=== PATIENT | female | born 1930 | race Caucasian/White ===

== ENCOUNTER 2016-10-14 13:14 | Emergency (ER) | payer OTHER ==
[2016-10-14 13:26] VITALS: BMI 56.5
--- NOTE | 2016-10-14 13:36 | PDOC ---
History of Present Illness - General History Source: Patient Exam Limitations: No Limitations - History of Present Illness Initial Comments: CHIEF COMPLAINT: 86 y/o afebrile, morbidly obese female with PMH HTN, HLD, IDDM , hypothyroidism BIB daughter for complaints of abdominal pain with nausea and vomiting for 4-5 days. HISTORY OF PRESENT ILLNESS: According to the daughter the patient has been c/o right ear pain for the past 1 week and she has been putting over the counter drops in it with no relief. She started having upper abdominal pain with vomiting 4-5 days ago. She cannot eat or drink anything without vomiting it up. The patient and her daughter deny fever, chills, cough, runny nose, CP, SOB , back pain, hematuria, dysuria, diarrhea, constipation. She states she is having normal BMs. Per daughter she is normally ambulatory at home but hasn't been moving much the last few days. Vital signs on arrival are notable for O2 sat of 95% on RA. REVIEW OF SYSTEMS: GENERAL/CONSTITUTIONAL: No fever/chills. No weakness. No weight change. HEAD, EYES, EARS, NOSE AND THROAT: No change in vision. +right ear pain. No ear discharge. No sore throat. CARDIOVASCULAR: No chest pain or shortness of breath. RESPIRATORY: No cough, wheezing, or hemoptysis. GASTROINTESTINAL: +nausea, vomiting and abdominal pain. No diarrhea or constipation. GENITOURINARY: No dysuria, frequency, or change in urination. MUSCULOSKELETAL: No joint or muscle swelling or pain. No neck or back pain. SKIN: No rash or easy bruising. NEUROLOGIC: No headache, vertigo, loss of consciousness, or loss of sensation. PHYSICAL EXAM: GENERAL: The patient is morbidly obese, lying flat in ED bed, in NAD or obvious discomfort. HEAD: Normal with no signs of trauma. No mastoid TTP b/l. ENT: Pupils equal, round and reactive to light, extraocular movements intact, sclera anicteric, conjunctiva clear. Right TM with some sclerotic changes but without erythema or bulging of TM. No right canal edema. LUNGS: Clear to auscultation bilaterally. Normal excursion. No respiratory distress or use of accessory muscles. CV: RRR, S1/S2, no MRG. Cap refill < 2 sec. ABDOMEN: Soft, obese, TTP of epigastric region with passive guarding. No rebound, rigidity. Very distant BS secondary to body habitus. EXTREMITIES: Normal range of motion, no edema. NEUROLOGICAL: Normal speech. CN II-XII grossly intact. SKIN: Warm, dry, decreased skin turgor, no rashes or lesions noted. <Maria Del Carmen Barakat - Last Filed: 10/14/16 18:30> <Natali Garcia - Last Filed: 10/14/16 21:57> - General Chief Complaint: Nausea/Vomiting Stated Complaint: ABD PAIN Time Seen by Provider: 10/14/16 13:27 Past History - Past Medical History Anemia: No Asthma: Yes Cancer: Yes (SKIN) Cardiac Disorders: Yes (MITRAL VALVE PROLAPSE) CVA: No COPD: Yes CHF: Yes Dementia: No Diabetes: Yes GI Disorders: Yes Disorders: No HTN: Yes Hypercholesterolemia: Yes Liver Disease: Yes (FATTY LIVER) Suicide Attempt (Hx): No Seizures: No Thyroid Disease: Yes - Surgical History Abdominal Surgery: Yes Appendectomy: No Cardiac Surgery: No Cholecystectomy: Yes Lung Surgery: No Neurologic Surgery: No Orthopedic Surgery: No - Psycho/Social/Smoking Cessation Hx Anxiety: No Suicidal Ideation: No Smoking Status: Yes Smoking History: Never smoked Have you smoked in the past 12 months: No Number of Cigarettes Smoked Daily: 0 If you are a former smoker, when did you quit?: 1984 Information on smoking cessation initiated: No Hx Alcohol Use: No Drug/Substance Use Hx: No Substance Use Type: None Hx Substance Use Treatment: Yes <Maria Del Carmen Barakat - Last Filed: 10/14/16 18:30> <Natali Garcia - Last Filed: 10/14/16 21:57> - Past Medical History Allergies/Adverse Reactions: Allergies Allergy/AdvReac Type Severity Reaction Status Date / Time No Known Allergies Allergy Verified 07/29/15 10:58 Home Medications: Ambulatory Orders Ammonium Lactate Lotion [Lac-Hydrin 12] 1 applic TP BID #1 oz 05/29/14 Fluocinonide 0.05% Oin [Lidex 0.05% Ointment -] 1 applic TP BID #1 applic Menthol/Camphor [Sarna Anti-Itch -] 1 applic TP TID #120 grams 05/29/14 Valsartan [Diovan] 160 mg PO DAILY #30 05/29/14 Insulin Aspart [Novolog Flexpen] 10 unit SQ QID 07/29/15 Sennosides [Senna] 2 tab PO HS 07/29/15 Acetaminophen [Tylenol .Regular Strength -] 650 mg PO Q4H PRN #0 tablet Clotrimazole [Gyne-Lotrimin -] 1 applic VG HS #3 tube 08/01/15 Diphenhydramine HCl [Benadryl Capsule -] 25 mg PO HS PRN #30 capsule 08/01/15 Docusate Sodium [Colace -] 100 mg PO BID #60 capsule 08/01/15 Metoclopramide HCl [Reglan -] 10 mg PO ACHS PRN #10 tablet 08/01/15 Nystatin Powder [Nystop Powder -] 1 applic TP BID 14 Days 08/01/15 Carvedilol [Coreg -] 3.125 mg PO BID #60 tablet 08/15/15 Atorvastatin Calcium 40 mg PO DAILY 10/14/16 Ciprofloxacin HCl/Dexameth [Ciprodex Otic Suspension] 3 drop AD BID #1 bottle Famotidine [Pepcid -] 20 mg PO BID #14 tablet 10/14/16 Furosemide [Lasix] 40 mg PO DAILY 10/14/16 Insulin Degludec [Tresiba Flextouch U-100] 40 unit SQ QID 10/14/16 Levothyroxine [Synthroid -] 112 mcg PO DAILY@0700 10/14/16 Metoclopramide HCl [Reglan -] 10 mg PO ACHS #10 tablet 10/14/16 *Physical Exam - Vital Signs Last Vital Signs Temp Pulse Resp BP Pulse Ox 97.8 F 89 16 127/63 95 10/14/16 13:21 10/14/16 13:21 10/14/16 13:21 10/14/16 13:21 10/14/16 13:21 <Maria Del Carmen Barakat - Last Filed: 10/14/16 18:30> - Vital Signs Last Vital Signs Temp Pulse Resp BP Pulse Ox 98.2 F 68 18 124/72 95 10/14/16 17:33 10/14/16 17:33 10/14/16 17:33 10/14/16 17:33 10/14/16 17:33 <Natali Garcia - Last Filed: 10/14/16 21:57> ED Treatment Course - LABORATORY CBC & Chemistry Diagram: 10/14/16 14:20 10/14/16 14:20 <Maria Del Carmen Barakat - Last Filed: 10/14/16 18:30> - LABORATORY CBC & Chemistry Diagram: 10/14/16 14:20 10/14/16 14:20 - ADDITIONAL ORDERS Additional order review: Laboratory Results 10/14/16 10/14/16 14:20 14:20 Sodium 140 Potassium 4.5 Chloride 98 Carbon Dioxide 33 H Anion Gap 9 BUN 7 D Creatinine 0.8 Creat Clearance w eGFR > 60 Random Glucose 180 H Calcium 8.5 Total Bilirubin 1.7 H D AST 42 H D ALT 23 Alkaline Phosphatase 112 D Creatine Kinase 156 D CK-MB (CK-2) 1.009 Troponin I 0.02 Total Protein 6.7 Albumin 2.9 L Urine Color Ltyellow Urine Appearance Clear Urine pH 7.0 D Ur Specific [place] 1.015 Urine Protein Negative Urine Glucose (UA) Negative Urine Ketones Negative Urine Blood Negative Urine Nitrite Negative Urine Bilirubin Negative Urine Urobilinogen 2.0 H Ur Leukocyte Esterase Negative 10/14/16 14:20 RBC 5.09 D MCV 91.8 MCHC 32.9 RDW 13.9 MPV 10.3 D Neutrophils % 66.2 D Lymphocytes % 24.4 D Monocytes % 6.8 Eosinophils % 1.5 Basophils % 1.1 - RADIOLOGY Radiology Studies Ordered: Category Date Time Status ABDOMEN & PELVIS CT W/O CONTR [CT] Stat CT Scan 10/14/16 20:28 Completed - Medications Given in the ED: ED Medications Discontinued Medications Generic Name Dose Route Start Last Admin Trade Name Freq PRN Reason Stop Dose Admin Sodium Chloride 1,000 mls @ 1,000 mls/hr 10/14/16 13:49 10/14/16 14:59 Normal Saline - IV 10/14/16 14:48 1,000 mls/hr ASDIR STA Administration Sodium Chloride 1,000 mls @ 1,000 mls/hr 10/14/16 15:59 10/14/16 16:08 Normal Saline - IV 10/14/16 16:58 1,000 mls/hr ASDIR STA Administration Famotidine/Sodium Chloride 50 mls @ 100 mls/hr 10/14/16 17:17 10/14/16 17:19 Pepcid 20 Mg Premixed Ivpb - IVPB 10/14/16 17:46 100 mls/hr ONCE ONE Administration Metoclopramide HCl 10 mg 10/14/16 13:49 10/14/16 15:00 Reglan Injection - IVPB 10/14/16 13:50 10 mg ONCE ONE Administration Ondansetron HCl 4 mg 10/14/16 15:30 10/14/16 15:40 Zofran Odt - SL 10/14/16 15:31 4 mg ONCE ONE Administration <Natali Garcia - Last Filed: 10/14/16 21:57> Medical Decision Making - Medical Decision Making A/P: 86 y/o afebrile female with nausea and vomiting for 4-5 days. Plan is as follows: 1. Labs 2. EKG 3. CXR 4. UA/culture 5. IV fluids 6. IV reglan 7. Contrast to drink/possible CT scan abd/pelvis The patient started to actively vomit while in the ER after exam. After blood drawn the patient's line blew so she was given SL zofran while waiting to have IV placement. CXR IMPRESSION: No evidence of acute pulmonary disease. Patient and family member informed of otherwise normal labs. Patient has had 2 fluid boluses. She is no longer nauseous but is complaining of continued upper abdominal pain. Ordered IV Pepcid. Awaiting CT scan abd/pelvis. The patient has stopped vomiting and states she feels better after pepcid. CT scan/abd pelvis IMPRESSION: I am signing this patient out to my colleague: MI Garcia In brief, this patient is being seen in the ED for a chief complaint of: vomiting and epigastric pain x 4-5 days. I have completed the initial assessment interview note and have ordered: labs, UA, ekg, CXR, CT scan abd/pelvis I have reviewed the following results: labs, UA, CXR, EKG Pending results are: CT scan abd/pelvis Please call the PCP: Nazanin Plan for disposition is as follows: CT scan results, PO challenge, reassess <Maria Del Carmen Barakat - Last Filed: 10/14/16 18:30> *DC/Admit/Observation/Transfer <Maria Del Carmen Barakat - Last Filed: 10/14/16 18:30> - Discharge Dispostion Admit: No <Natali Garcia - Last Filed: 10/14/16 21:57> Diagnosis at time of Disposition: Nausea & vomiting Qualifiers: Vomiting type: unspecified Vomiting Intractability: non-intractable Qualified Code(s): R11.2 - Nausea with vomiting, unspecified - Discharge Dispostion Disposition: HOME Condition at time of disposition: Improved - Prescriptions Prescriptions: Ciprofloxacin HCl/Dexameth [Ciprodex Otic Suspension] 3 drop AD BID #1 bottle Famotidine [Pepcid -] 20 mg PO BID #14 tablet Metoclopramide HCl [Reglan -] 10 mg PO ACHS #10 tablet - Referrals Referrals: Tyrell Back MD [Primary Care Provider] - Call tomorrow - Patient Instructions Printed Discharge Instructions: DI for Nausea -- Adult, DI for Vomiting -- Adult Print Language: ROMANSH
[2016-10-14] MEDS ORDERED: METOCLOPRAMIDE HCL INJECTION 10 MG/2 ML VIAL IVPB ONE (13:49)
[2016-10-14] MEDS ORDERED: SODIUM CHLORIDE 1,000 ML IV STA ×2 (13:49→15:59)
[2016-10-14] MEDS ORDERED: METOCLOPRAMIDE HCL INJECTION 10 MG/2 ML VIAL ONE (14:14)
[2016-10-14 14:41] LABS: BASOPHIL 1.1 % (0-2.0); EOSINOPHIL 1.5 % (0-4.5); MCH 30.2 pg (25.7-33.7); MCHC 32.9 g/dl (32.0-36.0); MEAN CELL VOLUME 91.8 fl (80-96); MEAN PLT VOLUME 10.3 fl (7.5-11.1); NEUTROPHILS 66.2 % (42.8-82.8); RDW 13.9 % (11.6-15.6)
[2016-10-14 14:48] LABS: URINE APPEARANCE CLEAR; URINE BILIRUBIN NEGATIVE (NEGATIVE); URINE BLOOD NEGATIVE (NEGATIVE); URINE COLOR LTYELLOW; URINE GLUCOSE (UA) NEGATIVE (NEGATIVE); URINE KETONE NEGATIVE (NEGATIVE); URINE LEUK ESTERASE NEGATIVE (NEGATIVE); URINE NITRITE NEGATIVE (NEGATIVE); URINE PROTEIN NEGATIVE (NEGATIVE)
[2016-10-14 15:04] LABS: ALBUMIN 2.9 g/dl (3.4-5.0); ANION GAP 9 (8-16); BILIRUBIN,TOTAL 1.7 mg/dL (0.2-1.0); CALCIUM 8.5 mg/dL (8.5-10.1); CO2 33 mmol/L (21-32); CREATININE 0.8 mg/dL (0.55-1.02); GLUCOSE,RANDOM 180 mg/dL (74-106); SGPT/ALT 23 U/L (12-78); TOT PROT 6.7 g/dl (6.4-8.2)
[2016-10-14 15:07] LABS: ALK PHOS 112 U/L (45-117); TROPONIN I 0.02 ng/ml (0.00-0.05)
[2016-10-14 15:27] LABS: SGOT/AST 42 U/L (15-37)
[2016-10-14] MEDS ORDERED: ONDANSETRON *ODT* 4 MG TABLET ONE (15:28)
[2016-10-14] MEDS ORDERED: ONDANSETRON *ODT* 4 MG TABLET SL ONE (15:30)
[2016-10-14] MEDS ORDERED: FAMOTIDINE 20 MG/50 ML IVPB 50 ML IVPB ONE ×2 (17:17→18:42)
[2016-10-14 17:36] VITALS: BP 124/72; PULSE 68; TEMP 98.2
[2016-10-14 17:45] LABS: PLATELET COUNT 208 K/MM3 (134-434)
[2016-10-14 17:46] LABS: PLATELET COMMENT2 NO CLUMPING NOTED; PLATELET ESTIMATE ADEQUATE (NORMAL)
== END 2016-10-14 22:07 | disposition home or self-care (01) ==
LOC: JER 13:14
PROC: 3E033GC Introduction of Other Therapeutic Substance into Peripheral Vein, Percutaneous Approach (ICD-10-PCS; principal; 2016-10-14)
PROC: 3E0337Z Introduction of Electrolytic and Water Balance Substance into Peripheral Vein, Percutaneous Approach (ICD-10-PCS; 2016-10-14)
DX: R11.2 Nausea with vomiting, unspecified (principal); E66.01 Morbid (severe) obesity due to excess calories; Z68.43 Body mass index [BMI] 50.0-59.9, adult; J45.909 Unspecified asthma, uncomplicated; I34.1 Nonrheumatic mitral (valve) prolapse; K92.9 Disease of digestive system, unspecified; E11.9 Type 2 diabetes mellitus without complications; J44.9 Chronic obstructive pulmonary disease, unspecified; I50.9 Heart failure, unspecified; Z87.891 Personal history of nicotine dependence; K76.0 Fatty (change of) liver, not elsewhere classified
CPT/HCPCS: 36415; 71010-TC; 74176-TC; 80053; 81003; 82550; 82553; 84484; 85025; 87086; 96361; 96365; 96375; 99283-25

== ENCOUNTER 2017-02-09 00:28 | Inpatient (IN) | payer OTHER ==
[2017-02-09] MEDS ORDERED: SODIUM CHLORIDE 2,000 ML IV STA (00:48)
[2017-02-09] MEDS ORDERED: ONDANSETRON 4 MG/2 ML VIAL IVPUSH ONE ×2 (00:48→05:20)
--- NOTE | 2017-02-09 00:48 | PDOC ---
History of Present Illness - General History Source: Patient, Family, Old Records Exam Limitations: No Limitations - History of Present Illness Initial Comments: 02/09/17 00:58 The patient is a 86 year old female brought via EMS and presenting with her family, with a significant past medical history of Skin CA, fatty liver, MVP, COPD, CHF, thyroid disease, asthma, HTN, HLD and diabetes, who presents to the emergency department with constipation, abdominal pain, nausea and vomiting for the past month.The family states that she has been refusing to come to the ED during this time frame until her symptoms exacerbated today. The family notes that the patient's sugar levels have been up and down during this time frame, with her last reading being today at 99. Allergies: None Past surgical history: Cholecystectomy Social history: No alcohol, tobacco or drug use reported <Arnulfo Lucero - Last Filed: 02/09/17 00:58> <Anne Mendez - Last Filed: 02/09/17 20:01> - General Stated Complaint: NAUSEA/ABDOMINAL PAIN Time Seen by Provider: 02/09/17 00:43 Past History <Arnulfo Lucero - Last Filed: 02/09/17 00:58> - Past Medical History Anemia: No Asthma: Yes Cancer: Yes (SKIN) Cardiac Disorders: Yes (MITRAL VALVE PROLAPSE) CVA: No COPD: Yes CHF: Yes Dementia: No Diabetes: Yes GI Disorders: Yes Disorders: No HTN: Yes Hypercholesterolemia: Yes Liver Disease: Yes (FATTY LIVER) Seizures: No Thyroid Disease: Yes - Surgical History Abdominal Surgery: Yes Appendectomy: No Cardiac Surgery: No Cholecystectomy: Yes Lung Surgery: No Neurologic Surgery: No Orthopedic Surgery: No - Suicide/Smoking/Psychosocial Hx Smoking Status: Yes Smoking History: Former smoker Have you smoked in the past 12 months: No Number of Cigarettes Smoked Daily: 0 If you are a former smoker, when did you quit?: 1984 Hx Alcohol Use: No Drug/Substance Use Hx: No Substance Use Type: None Hx Substance Use Treatment: Yes <Anne Mendez - Last Filed: 02/09/17 20:01> - Past Medical History Allergies/Adverse Reactions: Allergies Allergy/AdvReac Type Severity Reaction Status Date / Time No Known Allergies Allergy Verified 02/09/17 01:11 Home Medications: Ambulatory Orders Ammonium Lactate Lotion [Lac-Hydrin 12] 1 applic TP BID #1 oz 05/29/14 Fluocinonide 0.05% Oin [Lidex 0.05% Ointment -] 1 applic TP BID #1 applic Menthol/Camphor [Sarna Anti-Itch -] 1 applic TP TID #120 grams 05/29/14 Valsartan [Diovan] 160 mg PO DAILY #30 05/29/14 Insulin Aspart [Novolog Flexpen] 10 unit SQ QID 07/29/15 Sennosides [Senna] 2 tab PO HS 07/29/15 Acetaminophen [Tylenol .Regular Strength -] 650 mg PO Q4H PRN #0 tablet Clotrimazole [Gyne-Lotrimin -] 1 applic VG HS #3 tube 08/01/15 Diphenhydramine HCl [Benadryl Capsule -] 25 mg PO HS PRN #30 capsule 08/01/15 Docusate Sodium [Colace -] 100 mg PO BID #60 capsule 08/01/15 Metoclopramide HCl [Reglan -] 10 mg PO ACHS PRN #10 tablet 08/01/15 Nystatin Powder [Nystop Powder -] 1 applic TP BID 14 Days applic 08/01/15 Carvedilol [Coreg -] 3.125 mg PO BID #60 tablet 08/15/15 Atorvastatin Calcium 40 mg PO DAILY 10/14/16 Ciprofloxacin HCl/Dexameth [Ciprodex Otic Suspension] 3 drop AD BID #1 bottle Famotidine [Pepcid -] 20 mg PO BID #14 tablet 10/14/16 Furosemide [Lasix] 40 mg PO DAILY 10/14/16 Insulin Degludec [Tresiba Flextouch U-100] 40 unit SQ QID 10/14/16 Levothyroxine [Synthroid -] 112 mcg PO DAILY@0700 10/14/16 Metoclopramide HCl [Reglan -] 10 mg PO ACHS #10 tablet 10/14/16 Review of Systems - Review of Systems Able to Perform ROS?: Yes Comments:: 02/09/17 00:59 GENERAL/CONSTITUTIONAL: No fever or chills. No weakness. HEAD, EYES, EARS, NOSE AND THROAT: No change in vision. No ear pain or discharge. No sore throat.- CARDIOVASCULAR: No chest pain or shortness of breath RESPIRATORY: No cough, wheezing, or hemoptysis. GASTROINTESTINAL: (+) Abdominal pain, nausea, vomiting, constipation. No Diarrhea. GENITOURINARY: No dysuria, frequency, or change in urination. MUSCULOSKELETAL: No joint or muscle swelling or pain. No neck or back pain. SKIN: No rash NEUROLOGIC: No headache, vertigo, loss of consciousness, or change in strength/ sensation. ENDOCRINE: No increased thirst. No abnormal weight change HEMATOLOGIC/LYMPHATIC: No anemia, easy bleeding, or history of blood clots. ALLERGIC/IMMUNOLOGIC: No hives or skin allergy. <Arnulfo Lucero - Last Filed: 02/09/17 00:58> *Physical Exam - Physical Exam Comments: GENERAL: Awake, alert, and fully oriented. Actively vomiting brown material. Morbidly obese. HEAD: No signs of trauma EYES: PERRLA, EOMI, sclera anicteric, conjunctiva clear ENT: Auricles normal inspection, hearing grossly normal, nares patent, oropharynx clear without exudates. Dry mucosa NECK: Normal ROM, supple, no lymphadenopathy, JVD, or masses LUNGS: Breath sounds equal, clear to auscultation bilaterally. No wheezes, and no crackles HEART: Regular rate and rhythm, normal S1 and S2, no murmurs, rubs or gallops ABDOMEN: Soft, nontender, normoactive bowel sounds. No guarding, no rebound. No masses. Limited exam due to patient's body habitus. EXTREMITIES: Normal range of motion, no edema. No clubbing or cyanosis. No cords, erythema, or tenderness NEUROLOGICAL: Cranial nerves II through XII grossly intact. Normal speech, normal gait. Motor and sensation intact. SKIN: Warm, Dry, normal turgor, no rashes or lesions noted. <Anne Mendez - Last Filed: 02/09/17 20:01> ED Treatment Course - LABORATORY CBC & Chemistry Diagram: 02/09/17 01:14 02/09/17 01:14 <Anne Mendez - Last Filed: 02/09/17 20:01> Medical Decision Making - Medical Decision Making 02/09/17 02:[address] Burch at 2am shift change. Awaiting remainder of labs to r/o DKA, UTI. Likely will require CT a/p to further evaluate for c/o 1 month of vomiting. She received 8 mg of zofran so far (4 from EMS, 4 in ED), vomiting has ceased at present. <Anne Mendez - Last Filed: 02/09/17 20:01> *DC/Admit/Observation/Transfer - Attestations Scribe Attestion: 02/09/17 00:56 Documentation prepared by Arnulfo Lucero, acting as bio medical technician for Anne Mendez MD <Arnulfo Lucero - Last Filed: 02/09/17 00:58> <Anne Mendez - Last Filed: 02/09/17 20:01> Diagnosis at time of Disposition: Nausea & vomiting, Dehydration, Colitis, Pulmonary nodule - Discharge Dispostion Condition at time of disposition: Fair
[2017-02-09] MEDS ORDERED: ONDANSETRON 4 MG/2 ML VIAL ONE ×2 (01:16→05:22)
[2017-02-09 01:41] LABS: BASOPHIL 0.9 % (0-2.0); EOSINOPHIL 0.7 % (0-4.5); MCH 29.7 pg (25.7-33.7); MCHC 32.9 g/dl (32.0-36.0); MEAN CELL VOLUME 90.2 fl (80-96); MEAN PLT VOLUME 9.2 fl (7.5-11.1); NEUTROPHILS 72.4 % (42.8-82.8); PLATELET COUNT 228 K/MM3 (134-434); RDW 13.9 % (11.6-15.6); WHITE BLOOD COUNT 12.5 K/mm3 (4.0-10.0)
[2017-02-09 02:36] LABS: ALBUMIN 2.9 g/dl (3.4-5.0); ANION GAP 12 (8-16); BILIRUBIN,TOTAL 0.8 mg/dL (0.2-1.0); CALCIUM 8.5 mg/dL (8.5-10.1); CO2 29 mmol/L (21-32); CREATININE 1.2 mg/dL (0.55-1.02); GLUCOSE,RANDOM 129 mg/dL (74-106); SGOT/AST 15 U/L (15-37); SGPT/ALT 16 U/L (12-78); TOT PROT 6.6 g/dl (6.4-8.2)
[2017-02-09 02:39] LABS: ALK PHOS 95 U/L (45-117); CPK 62 IU/L (26-192); TROPONIN I 0.02 ng/ml (0.00-0.05)
--- NOTE | 2017-02-09 04:16 | PDOC ---
*Physical Exam - Vital Signs Last Vital Signs Temp Pulse Resp BP Pulse Ox 88 14 116/58 98 02/09/17 01:11 02/09/17 01:11 02/09/17 01:11 02/09/17 01:11 - Physical Exam Comments: 02/09/17 04:14 Gen: aaox3, resting comfortably heart: +s1s2 reg Lungs: cta b/l Abd: soft, mildly ttp diffusely, no rebound or guarding, obese ext: trace edema LE ED Treatment Course - LABORATORY CBC & Chemistry Diagram: 02/09/17 01:14 02/09/17 01:14 - ADDITIONAL ORDERS Additional order review: Laboratory Results 02/09/17 02/09/17 02/09/17 01:14 01:14 01:14 WBC 12.5 H RBC 4.97 Hgb 14.8 Hct 44.8 MCV 90.2 MCH 29.7 MCHC 32.9 RDW 13.9 Plt Count 228 MPV 9.2 D Neutrophils % 72.4 Lymphocytes % 18.1 D Monocytes % 7.9 Eosinophils % 0.7 Basophils % 0.9 Sodium 143 Potassium 3.8 Chloride 102 Carbon Dioxide 29 Anion Gap 12 BUN 13 D Creatinine 1.2 H D Creat Clearance w eGFR 42.70 Random Glucose 129 H D Calcium 8.5 Total Bilirubin 0.8 D AST 15 D ALT 16 D Alkaline Phosphatase 95 Creatine Kinase 62 Troponin I 0.02 Total Protein 6.6 Albumin 2.9 L Lipase 89 Acetone, Qual Negative L 02/09/17 01:14 RBC 4.97 MCV 90.2 MCHC 32.9 RDW 13.9 MPV 9.2 D Neutrophils % 72.4 Lymphocytes % 18.1 D Monocytes % 7.9 Eosinophils % 0.7 Basophils % 0.9 - RADIOLOGY Radiology Studies Ordered: Category Date Time Status ABDOMEN & PELVIS CT WITH CONTR [CT] Stat CT Scan 02/09/17 04:11 Ordered - Medications Given in the ED: ED Medications Discontinued Medications Generic Name Dose Route Start Last Admin Trade Name Freq PRN Reason Stop Dose Admin Sodium Chloride 2,000 mls @ 1,000 mls/hr 02/09/17 00:48 02/09/17 01:20 Normal Saline - IV 02/09/17 02:47 1,000 mls/hr ASDIR STA Administration Ondansetron HCl 4 mg 02/09/17 00:48 02/09/17 01:20 Zofran Injection IVPUSH 02/09/17 00:49 4 mg ONCE ONE Administration Medical Decision Making - Medical Decision Making 02/09/17 04:14 a/p: pt signed out pending labs and possible imaging of the abd given 1 month hx of n/v -receiving IVF hydration -labs reviewed -mild diffuse abd ttp -will obtain ct abd/pelvis w contrast to r/o colitis vs enteritis, vs obstruction -pt denies nausea at this time. 02/09/17 05:57 re-eval: ct shows colitis. pt still with nausea and abd pain despite multiple rounds of antiemetics in the ED. will need to stay for nausea control and will start iv abx for colitis. Dr. Back is PMD - uses [facility] for admissions. call placed to dr. sidhu. 02/09/17 06:[address] Sidhu who accepts admission under Dr. Barnett. *DC/Admit/Observation/Transfer Diagnosis at time of Disposition: Nausea & vomiting, Dehydration, Colitis, Pulmonary nodule - Discharge Dispostion Condition at time of disposition: Fair Admit: Yes - Referrals Referrals: Tyrell Back MD [Primary Care Provider] - - Patient Instructions - Post Discharge Activity
[2017-02-09] MEDS ORDERED: morphine CARPU-JECT 2 MG/1 ML DISP.SYRIN IVPUSH ONE (05:20)
[2017-02-09] MEDS ORDERED: SODIUM CHLORIDE 0.9% 1000 ML INFUS.BAG IV ONE (05:20)
[2017-02-09] MEDS ORDERED: FAMOTIDINE 20 MG/50 ML IVPB 20 MG/50 ML MG IVPB ONE ×2 (05:20→05:23)
[2017-02-09] MEDS ORDERED: morphine SULFATE 4 MG/ML VIAL ONE (05:22)
[2017-02-09] MEDS ORDERED: CIPROFLOXACIN 400 MG/D5W 400 MG/200 ML IVPB IVPB ONE (05:52)
[2017-02-09] MEDS ORDERED: METRONIDAZOLE 500 MG PREMIXED 500 MG/100 ML MG IVPB ONE ×2 (05:52→06:05)
[2017-02-09] MEDS ORDERED: ACETAMINOPHEN 325 MG TABLET (FP) PO PRN (06:39)
[2017-02-09] MEDS ORDERED: LEVOFLOXACIN 500 MG IVPB 500 MG/100 ML BAG IVPB ONE (06:40)
[2017-02-09] MEDS ORDERED: morphine SULFATE 4 MG/ML VIAL IVPUSH PRN (06:41)
[2017-02-09] MEDS ORDERED: METRONIDAZOLE 500 MG PREMIXED 500 MG/100 ML MG IVPB SCH (06:45)
[2017-02-09] MEDS ORDERED: VALSARTAN 160 MG TABLET (UD) PO SCH (07:00)
[2017-02-09] MEDS ORDERED: RANITIDINE HCL 150 MG TABLET (FP) PO SCH ×2 (07:00)
[2017-02-09 08:10] VITALS: BMI 44.4
[2017-02-09] MEDS: INSULIN SLIDING SCALE (NOVOLOG) 1 VIAL SQ SCH ×4 (08:15→21:18)
[2017-02-09] MEDS: SODIUM CHLORIDE 1,000 ML IV SCH (08:56)
[2017-02-09] MEDS: FUROSEMIDE 40 MG TABLET (FP) PO SCH (10:37)
[2017-02-09] MEDS: CARVEDILOL 3.125 MG TABLET (FP) PO SCH ×2 (10:37→21:21)
[2017-02-09] MEDS: VALSARTAN 160 MG TABLET (UD) PO SCH (10:37)
[2017-02-09] MEDS: INSULIN DETEMIR 100 UNITS/ML MDV SQ SCH ×2 (10:37→21:20)
[2017-02-09] MEDS: ATORVASTATIN CA 20 MG TABLET (FP) PO SCH ×2 (10:39→21:21)
[2017-02-09] MEDS: METRONIDAZOLE 500 MG PREMIXED 500 MG/100 ML MG IVPB SCH ×2 (10:41→17:13)
[2017-02-09] MEDS: NYSTATIN POWDER 100,000 UNITS/GM - 15 GM TOPICAL POWDER TP SCH (11:07)
[2017-02-09] MEDS: LEVOTHYROXINE NA 112 MCG TABLET (FP) PO SCH (11:08)
[2017-02-09] MEDS: FLUOCINONIDE 0.05% TOP OINT (15 GM TUBE) TP SCH (11:08)
[2017-02-09] MEDS ORDERED: FLU VACCINE QUAD 60 MCG/0.5 ML (MDV 17-18) IM ONE (12:00)
[2017-02-09] MEDS ORDERED: ONDANSETRON 4 MG/2 ML VIAL IVPUSH PRN (12:56)
--- NOTE | 2017-02-09 16:35 | PN ---
Progress Note (short form) - Note Progress Note: ID Consult dictated N/V, abdominal pain syndrome Afebrile WBC slightly elevated CT abdo/pelvis no colitis Observe off antibiotics Repeat CBC GI evaluation
[2017-02-09] MEDS ORDERED: PT OWN MED DRAWER 7, Y5N ONE (17:08)
--- NOTE | 2017-02-09 17:45 | CONS ---
INFECTIOUS DISEASE CONSULTATION DATE OF CONSULTATION: 02/09/2017 HISTORY OF PRESENT ILLNESS: The patient is an 86-year-old female evaluated for possible colitis. She was admitted to the hospital with a several-week history of abdominal pain syndrome, nausea, vomiting, and constipation. History was obtained from the chart as well as the patient's family member present at the time of the examination. She has had recurrent episodes of nausea and vomiting associated with constipation. Earlier today, she had a bowel movement which the granddaughter described as black in color. She denies having any diarrhea. No melena or felton red blood per rectum. She has no complaints of fever or chills. Her white blood cell count was noted to be mildly elevated. CAT scan of the abdomen and pelvis showed no evidence of colitis. PAST MEDICAL HISTORY: Positive for COPD, congestive heart failure, thyroid disease, asthma, hypertension, hyperlipidemia, diabetes mellitus, skin cancer. PAST SURGICAL HISTORY: Status post cholecystectomy. ALLERGIES: No known allergies. MEDICATIONS: Diovan, NovoLog, Tylenol, Colace, Reglan, Coreg, Pepcid, Lasix, Synthroid. SOCIAL HISTORY: Lives at home with family members. Former smoker. LABORATORY DATA: White count 12.5, hematocrit 44.8, platelet count 228. BUN 13, creatinine 1.2. Lipase 89. Liver enzymes normal. PHYSICAL EXAMINATION: General: She is awake and alert, lying in bed, morbidly obese. Vital Signs: Temperature 98.1; blood pressure 144/78; pulse 80, regular; respirations 18 per minute. HEENT: Sclerae are anicteric. Heart: Sounds S1, S2. Lungs: Clear. Abdomen: Obese, soft. No tenderness elicited. No mass, rebound, or rigidity. Extremities: Positive for edema. IMPRESSION: Nausea, vomiting, abdominal pain syndrome of unclear etiology. Patient is afebrile. White blood cell count slightly elevated. CAT scan of the abdomen and pelvis no evidence of colitis. We will observe off antibiotic therapy, repeat CBC, GI evaluation. Thank you for the kind referral. LINO CHIN M.D. EMRE/[id number]
--- NOTE | 2017-02-09 18:33 | HP ---
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 2011 dobut MIBI: no STs ; moderate reversible defect anterior and lateral faith confounded by large breast shadow; nl EF -> pt didn't follow as outpt as planned (was on DATP for a little while). Echo 09/13: nl LVEF, nl RV, nl valve fxn), HTN, Hyperlipdemia Pulmonary: Yes: COPD Gastrointestinal: Yes: Constipation ...: No Heme/Onc: Yes: Cancer (thyroid) Endocrine: Yes: Diabetes Mellitus (insulin-dependent for years -> uncontrolled) , Hypothyroidism Dermatology: Yes: Cellulitis (in past, with chronic and intermittent edema) - Smoking History Smoking history: Former smoker Have you smoked in the past 12 months: No Aproximately how many cigarettes per day: 0 If you are a former smoker, when did you quit?: 1984 - Alcohol/Substance Use Hx Alcohol Use: No History of Substance Use: reports: None Home Medications - Allergies Allergies/Adverse Reactions: Allergies Allergy/AdvReac Type Severity Reaction Status Date / Time No Known Allergies Allergy Verified 02/09/17 01:11 - Home Medications Home Medications: Ambulatory Orders Ammonium Lactate Lotion [Lac-Hydrin 12] 1 applic TP BID #1 oz 05/29/14 Fluocinonide 0.05% Oin [Lidex 0.05% Ointment -] 1 applic TP BID #1 applic Menthol/Camphor [Sarna Anti-Itch -] 1 applic TP TID #120 grams 05/29/14 Valsartan [Diovan] 160 mg PO DAILY #30 05/29/14 Insulin Aspart [Novolog Flexpen] 10 unit SQ QID 07/29/15 Sennosides [Senna] 2 tab PO HS 07/29/15 Acetaminophen [Tylenol .Regular Strength -] 650 mg PO Q4H PRN #0 tablet Clotrimazole [Gyne-Lotrimin -] 1 applic VG HS #3 tube 08/01/15 Diphenhydramine HCl [Benadryl Capsule -] 25 mg PO HS PRN #30 capsule 08/01/15 Docusate Sodium [Colace -] 100 mg PO BID #60 capsule 08/01/15 Metoclopramide HCl [Reglan -] 10 mg PO ACHS PRN #10 tablet 08/01/15 Nystatin Powder [Nystop Powder -] 1 applic TP BID 14 Days applic 08/01/15 Carvedilol [Coreg -] 3.125 mg PO BID #60 tablet 08/15/15 Atorvastatin Calcium 40 mg PO DAILY 10/14/16 Ciprofloxacin HCl/Dexameth [Ciprodex Otic Suspension] 3 drop AD BID #1 bottle Famotidine [Pepcid -] 20 mg PO BID #14 tablet 10/14/16 Furosemide [Lasix] 40 mg PO DAILY 10/14/16 Insulin Degludec [Tresiba Flextouch U-100] 40 unit SQ QID 10/14/16 Levothyroxine [Synthroid -] 112 mcg PO DAILY@0700 10/14/16 Metoclopramide HCl [Reglan -] 10 mg PO ACHS #10 tablet 10/14/16 Family Disease History - Family Disease History Family Disease History: Diabetes: Daughter Review of Systems - Review of Systems Constitutional: reports: Weakness Eyes: reports: No Symptoms HENT: reports: No Symptoms Neck: reports: No Symptoms Cardiovascular: reports: No Symptoms Respiratory: reports: No Symptoms Gastrointestinal: reports: Abdominal Pain, Constipation, Nausea, Vomiting Genitourinary: reports: No Symptoms Breasts: reports: No Symptoms Reported Musculoskeletal: reports: No Symptoms Integumentary: reports: No Symptoms Neurological: reports: Dizziness Endocrine: reports: No Symptoms Hematology/Lymphatic: reports: No Symptoms Psychiatric: reports: No Symptoms Physical Examination Vital Signs: Vital Signs Temperature 98.3 F 02/09/17 14:50 Pulse Rate 80 02/09/17 14:50 Respiratory Rate 18 02/09/17 14:50 Blood Pressure 144/78 02/09/17 14:50 O2 Sat by Pulse Oximetry (%) 96 02/09/17 09:00 Labs: CBC, BMP 02/09/17 01:14 02/09/17 01:14 Problem List - Problems (1) Colitis Code(s): K52.9 - NONINFECTIVE GASTROENTERITIS AND COLITIS, UNSPECIFIED (2) Dehydration Code(s): E86.0 - DEHYDRATION (3) Nausea & vomiting Code(s): R11.2 - NAUSEA WITH VOMITING, UNSPECIFIED
--- NOTE | 2017-02-09 19:10 | CON.GI ---
Consult Consult Specialty:: Gastroenerology Referred by:: Dr Barnett - History of Present Illness Chief Complaint: colitis History of Present Illness: 86 y/o female with morbid obesity,s/p cholecystectomy CHF, COPD,CAD has 4 week history of epigastTonigh still has epigastric painric pain nausea and vomiting. 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 2011 dobut MIBI: no STs ; moderate reversible defect anterior and lateral faith confounded by large breast shadow; nl EF -> pt didn't follow as outpt as planned (was on DATP for a little while). Echo 09/13: nl LVEF, nl RV, nl valve fxn), HTN, Hyperlipdemia Pulmonary: Yes: COPD Gastrointestinal: Yes: Constipation ...: No Endocrine: Yes: Diabetes Mellitus (insulin-dependent for years -> uncontrolled) , Hypothyroidism Dermatology: Yes: Cellulitis (in past, with chronic and intermittent edema) - Alcohol/Substance Use Hx Alcohol Use: No History of Substance Use: reports: None - Smoking History Smoking history: Former smoker Have you smoked in the past 12 months: No Aproximately how many cigarettes per day: 0 If you are a former smoker, when did you quit?: 1984 - Social History Usual Living Arrangement: With Spouse (who is on HD) Home Medications - Allergies Allergies/Adverse Reactions: Allergies Allergy/AdvReac Type Severity Reaction Status Date / Time No Known Allergies Allergy Verified 02/09/17 01:11 - Home Medications Home Medications: Ambulatory Orders Ammonium Lactate Lotion [Lac-Hydrin 12] 1 applic TP BID #1 oz 05/29/14 Fluocinonide 0.05% Oin [Lidex 0.05% Ointment -] 1 applic TP BID #1 applic Menthol/Camphor [Sarna Anti-Itch -] 1 applic TP TID #120 grams 05/29/14 Valsartan [Diovan] 160 mg PO DAILY #30 02/26/15 Insulin Aspart [Novolog Flexpen] 10 unit SQ QID 07/29/15 Sennosides [Senna] 2 tab PO HS 07/29/15 Acetaminophen [Tylenol .Regular Strength -] 650 mg PO Q4H PRN #0 tablet Clotrimazole [Gyne-Lotrimin -] 1 applic VG HS #3 tube 08/01/15 Diphenhydramine HCl [Benadryl Capsule -] 25 mg PO HS PRN #30 capsule 08/01/15 Docusate Sodium [Colace -] 100 mg PO BID #60 capsule 08/01/15 Metoclopramide HCl [Reglan -] 10 mg PO ACHS PRN #10 tablet 08/01/15 Nystatin Powder [Nystop Powder -] 1 applic TP BID 14 Days applic 08/01/15 Carvedilol [Coreg -] 3.125 mg PO BID #60 tablet 08/15/15 Atorvastatin Calcium 40 mg PO DAILY 10/14/16 Ciprofloxacin HCl/Dexameth [Ciprodex Otic Suspension] 3 drop AD BID #1 bottle Famotidine [Pepcid -] 20 mg PO BID #14 tablet 10/14/16 Furosemide [Lasix] 40 mg PO DAILY 10/14/16 Insulin Degludec [Tresiba Flextouch U-100] 40 unit SQ QID 10/14/16 Levothyroxine [Synthroid -] 112 mcg PO DAILY@0700 10/14/16 Metoclopramide HCl [Reglan -] 10 mg PO ACHS #10 tablet 10/14/16 Family Disease History - Family Disease History Family Disease History: Diabetes: Daughter Review of Systems - Review of Systems Constitutional: denies: No Symptoms, Chills, Diaphoresis, Fever, Lethargy, Loss of Appetite, Malaise, Night Sweats, Unintentional Wgt. Loss, Weakness, Other Cardiovascular: denies: No Symptoms, Chest Pain, Edema, Palpitations, Shortness of Breath, Other Respiratory: denies: No Symptoms, Cough, Exercise Intolerance, Hemoptysis, Orthopnea, PND, Snoring, SOB, SOB on Exertion, Wheezing, Other Gastrointestinal: reports: Abdominal Pain, Nausea, Vomiting Physical Exam-GI Vital Signs: Vital Signs Temperature 98.1 F 02/09/17 18:48 Pulse Rate 88 02/09/17 18:48 Respiratory Rate 20 02/09/17 18:48 Blood Pressure 150/88 02/09/17 18:48 O2 Sat by Pulse Oximetry (%) 94 L 02/09/17 10:00 Constitutional: Yes: Obese Eyes: Yes: Conjunctiva Clear HENT: Yes: Atraumatic Neck: Yes: Supple Cardiovascular: Yes: Regular Rate and Rhythm Respiratory: Yes: CTA Bilaterally ...Palpate: Yes: Soft, Tenderness, Epigastium. No: Firm/Rigid, Guarding, Hepatomegaly, Mass, Pulsatile Mass, Splenomegaly, Tenderness Labs: CBC, BMP 02/09/17 01:14 02/09/17 01:14 Hepatic Panel Total Bilirubin 0.8 mg/dL (0.2-1.0) D 02/09/17 01:14 AST 15 U/L (15-37) D 02/09/17 01:14 ALT 16 U/L (12-78) D 02/09/17 01:14 Alkaline Phosphatase 95 U/L (45-117) 02/09/17 01:14 Albumin 2.9 g/dl (3.4-5.0) L 02/09/17 01:14 Imaging - Results Cat Scan: Report Reviewed Problem List - Problems (1) Epigastric abdominal pain Assessment/Plan: r/o peptic ulcer disease R> contiue supportive care for now IV Protonix, IV Reglan poor candidate for EGD because of underlying medical problems Code(s): R10.13 - EPIGASTRIC PAIN
[2017-02-09] MEDS: METOCLOPRAMIDE HCL INJECTION 10 MG/2 ML VIAL IVPB SCH (21:19)
[2017-02-09] MEDS: ONDANSETRON 4 MG/2 ML VIAL IVPB SCH (21:19)
[2017-02-09] MEDS: PANTOPRAZOLE SODIUM 40 MG VIAL IVPUSH SCH (21:22)
[2017-02-09] MEDS ORDERED: PANTOPRAZOLE SODIUM 40 MG in SODIUM CHLORIDE 100 ML IVPB SCH (22:00)
--- NOTE | 2017-02-10 00:27 | CONSULT ---
Consult Consult Specialty:: endocrine Referred by:: dr.amir sidhu Reason for Consultation:: diabetes mellitus - History of Present Illness Chief Complaint: hyperglycemia,nausea vomitiing History of Present Illness: 86 year old female brought via EMS and presenting with her family, with a significant past medical history of Skin CA, fatty liver, MVP, COPD, CHF, thyroid disease, asthma, HTN, HLD and diabetes, who presents to the emergency department with constipation, abdominal pain, nausea and vomiting for the past month.The family states that she has neglected physician office follow up and did not want to seek medical help in last several days,no fever or chills. 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 2011 dobut MIBI: no STs ; moderate reversible defect anterior and lateral faith confounded by large breast shadow; nl EF -> pt didn't follow as outpt as planned (was on DATP for a little while). Echo 09/13: nl LVEF, nl RV, nl valve fxn), HTN, Hyperlipdemia Pulmonary: Yes: COPD Gastrointestinal: Yes: Constipation ...: No Endocrine: Yes: Diabetes Mellitus (insulin-dependent for years -> uncontrolled) , Hypothyroidism Dermatology: Yes: Cellulitis (in past, with chronic and intermittent edema) - Alcohol/Substance Use Hx Alcohol Use: No History of Substance Use: reports: None - Smoking History Smoking history: Former smoker Have you smoked in the past 12 months: No Aproximately how many cigarettes per day: 0 If you are a former smoker, when did you quit?: 1984 - Social History Usual Living Arrangement: With Spouse (who is on HD) Home Medications - Allergies Allergies/Adverse Reactions: Allergies Allergy/AdvReac Type Severity Reaction Status Date / Time No Known Allergies Allergy Verified 02/09/17 01:11 - Home Medications Home Medications: Ambulatory Orders Ammonium Lactate Lotion [Lac-Hydrin 12] 1 applic TP BID #1 oz 05/29/14 Fluocinonide 0.05% Oin [Lidex 0.05% Ointment -] 1 applic TP BID #1 applic Menthol/Camphor [Sarna Anti-Itch -] 1 applic TP TID #120 grams 05/29/14 Valsartan [Diovan] 160 mg PO DAILY #30 05/29/14 Insulin Aspart [Novolog Flexpen] 10 unit SQ QID 07/29/15 Sennosides [Senna] 2 tab PO HS 07/29/15 Acetaminophen [Tylenol .Regular Strength -] 650 mg PO Q4H PRN #0 tablet Clotrimazole [Gyne-Lotrimin -] 1 applic VG HS #3 tube 08/01/15 Diphenhydramine HCl [Benadryl Capsule -] 25 mg PO HS PRN #30 capsule 08/01/15 Docusate Sodium [Colace -] 100 mg PO BID #60 capsule 08/01/15 Metoclopramide HCl [Reglan -] 10 mg PO ACHS PRN #10 tablet 08/01/15 Nystatin Powder [Nystop Powder -] 1 applic TP BID 14 Days applic 08/01/15 Carvedilol [Coreg -] 3.125 mg PO BID #60 tablet 08/15/15 Atorvastatin Calcium 40 mg PO DAILY 10/14/16 Ciprofloxacin HCl/Dexameth [Ciprodex Otic Suspension] 3 drop AD BID #1 bottle Famotidine [Pepcid -] 20 mg PO BID #14 tablet 10/14/16 Furosemide [Lasix] 40 mg PO DAILY 10/14/16 Insulin Degludec [Tresiba Flextouch U-100] 40 unit SQ QID 10/14/16 Levothyroxine [Synthroid -] 112 mcg PO DAILY@0700 10/14/16 Metoclopramide HCl [Reglan -] 10 mg PO ACHS #10 tablet 10/14/16 Family Disease History - Family Disease History Family Disease History: Diabetes: Daughter Review of Systems - Review of Systems Constitutional: reports: Lethargy, Loss of Appetite, Weakness Eyes: reports: Blurred Vision HENT: reports: Difficult Swallowing, Throat Pain Neck: reports: Tenderness Cardiovascular: reports: Palpitations, Shortness of Breath Respiratory: reports: Exercise Intolerance, SOB, SOB on Exertion Gastrointestinal: reports: Bloating, Constipation, Indigestion, Nausea Genitourinary: reports: Dysuria Musculoskeletal: reports: Back Pain, Joint Swelling, Muscle Pain Neurological: reports: Dizziness, Unsteady Gait, Weakness Endocrine: reports: Unexplained Weight Loss Physical Exam Vital Signs: Vital Signs Temperature 98.1 F 02/09/17 18:48 Pulse Rate 88 02/09/17 18:48 Respiratory Rate 20 02/09/17 18:48 Blood Pressure 150/88 02/09/17 18:48 O2 Sat by Pulse Oximetry (%) 94 L 02/09/17 10:00 Constitutional: Yes: Anxious Eyes: Yes: EOM Intact HENT: Yes: Normocephalic Neck: Yes: Trachea Midline, Thyromegaly Cardiovascular: Yes: Regular Rate and Rhythm Respiratory: Yes: Diminished, Tachypnea Gastrointestinal: Yes: Hypoactive Bowel Sounds, Tenderness, Epigastrium ...Rectal Exam: Yes: Deferred Renal/: Yes: WNL Breast(s): Yes: WNL Musculoskeletal: Yes: Joint Stiffness, Joint Swelling, Muscle Weakness Extremities: Yes: Delayed Capillary Refill Edema: No Neurological: Yes: Alert, Oriented Labs: CBC, BMP 02/09/17 01:14 02/09/17 01:14 Problem List - Problems (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 Code(s): E11.49 - TYPE 2 DIABETES W OTH DIABETIC NEUROLOGICAL COMPLICATION (2) Colitis Code(s): K52.9 - NONINFECTIVE GASTROENTERITIS AND COLITIS, UNSPECIFIED (3) Dehydration Code(s): E86.0 - DEHYDRATION (4) Epigastric abdominal pain Code(s): R10.13 - EPIGASTRIC PAIN (5) Nausea & vomiting Code(s): R11.2 - NAUSEA WITH VOMITING, UNSPECIFIED (6) Pulmonary nodule Code(s): R91.1 - SOLITARY PULMONARY NODULE (7) Breast pain, left Code(s): N64.4 - MASTODYNIA Assessment/Plan Current Active Problems Colitis (Acute) Dehydration (Acute) Epigastric abdominal pain (Acute) Nausea & vomiting (Acute) Pulmonary nodule (Acute) diabetes mellitus hyperglycemia neuropathy gastroparesis Abnormal Lab Results 02/09/17 02/09/17 02/09/17 01:14 01:14 01:14 WBC 12.5 H ESR Creatinine 1.2 H D Random Glucose 129 H D C-Reactive Protein Albumin 2.9 L Acetone, Qual Negative L 02/09/17 02/09/17 10:20 10:20 WBC ESR 55 H Creatinine Random Glucose C-Reactive Protein 0.6 H Albumin Acetone, Qual Laboratory Results - last 24 hr 02/09/17 02/09/17 02/09/17 01:14 01:14 01:14 WBC 12.5 H RBC 4.97 Hgb 14.8 Hct 44.8 MCV 90.2 MCH 29.7 MCHC 32.9 RDW 13.9 Plt Count 228 MPV 9.2 D Neutrophils % 72.4 Lymphocytes % 18.1 D Monocytes % 7.9 Eosinophils % 0.7 Basophils % 0.9 ESR Sodium 143 Potassium 3.8 Chloride 102 Carbon Dioxide 29 Anion Gap 12 BUN 13 D Creatinine 1.2 H D Creat Clearance w eGFR 42.70 POC Glucometer Random Glucose 129 H D Lactic Acid Calcium 8.5 Total Bilirubin 0.8 D AST 15 D ALT 16 D Alkaline Phosphatase 95 Creatine Kinase 62 Troponin I 0.02 C-Reactive Protein Total Protein 6.6 Albumin 2.9 L Lipase 89 Acetone, Qual Negative L 02/09/17 02/09/17 02/09/17 08:14 10:20 10:20 WBC RBC Hgb Hct MCV MCH MCHC RDW Plt Count MPV Neutrophils % Lymphocytes % Monocytes % Eosinophils % Basophils % ESR 55 H Sodium Potassium Chloride Carbon Dioxide Anion Gap BUN Creatinine Creat Clearance w eGFR POC Glucometer 129 Random Glucose Lactic Acid Calcium Total Bilirubin AST ALT Alkaline Phosphatase Creatine Kinase Troponin I C-Reactive Protein 0.6 H Total Protein Albumin Lipase Acetone, Qual 02/09/17 02/09/17 02/09/17 10:20 12:39 16:32 WBC RBC Hgb Hct MCV MCH MCHC RDW Plt Count MPV Neutrophils % Lymphocytes % Monocytes % Eosinophils % Basophils % ESR Sodium Potassium Chloride Carbon Dioxide Anion Gap BUN Creatinine Creat Clearance w eGFR POC Glucometer 129 188 Random Glucose Lactic Acid 1.0 Calcium Total Bilirubin AST ALT Alkaline Phosphatase Creatine Kinase Troponin I C-Reactive Protein Total Protein Albumin Lipase Acetone, Qual 02/09/17 21:17 WBC RBC Hgb Hct MCV MCH MCHC RDW Plt Count MPV Neutrophils % Lymphocytes % Monocytes % Eosinophils % Basophils % ESR Sodium Potassium Chloride Carbon Dioxide Anion Gap BUN Creatinine Creat Clearance w eGFR POC Glucometer 169 Random Glucose Lactic Acid Calcium Total Bilirubin AST ALT Alkaline Phosphatase Creatine Kinase Troponin I C-Reactive Protein Total Protein Albumin Lipase Acetone, Qual Laboratory Tests 02/09/17 02/09/17 02/09/17 01:14 08:14 12:39 POC Glucometer 129 129 Random Glucose 129 H D 02/09/17 16:32 POC Glucometer 188 Random Glucose plan: check tsh free t4 resume synthroid 112 mcg levemir 25 units am bgm qid novolog scale
[2017-02-10] MEDS: ONDANSETRON 4 MG/2 ML VIAL IVPB SCH ×3 (01:06→07:23)
[2017-02-10] MEDS: METRONIDAZOLE 500 MG PREMIXED 500 MG/100 ML MG IVPB SCH ×3 (01:11→17:57)
[2017-02-10] MEDS: METOCLOPRAMIDE HCL INJECTION 10 MG/2 ML VIAL IVPB SCH (03:03)
[2017-02-10] MEDS ORDERED: ONDANSETRON 4 MG/2 ML VIAL IVPUSH PRN (03:16)
[2017-02-10] MEDS: SODIUM CHLORIDE 1,000 ML IV SCH ×3 (04:08→22:35)
[2017-02-10] MEDS ORDERED: PT OWN MED DRAWER 7, Y5N ONE ×3 (06:14→22:19)
[2017-02-10] MEDS ORDERED: DEXTROSE 50%-WATER - 25 GM/50 ML VIAL IVPUSH ONE (06:57)
[2017-02-10 07:04] LABS: BASOPHIL 0.3 % (0-2.0); EOSINOPHIL 0.8 % (0-4.5); MCH 29.6 pg (25.7-33.7); MCHC 32.9 g/dl (32.0-36.0); MEAN PLT VOLUME 8.7 fl (7.5-11.1); NEUTROPHILS 70.4 % (42.8-82.8); PLATELET COUNT 207 K/MM3 (134-434); RDW 13.8 % (11.6-15.6); WHITE BLOOD COUNT 9.1 K/mm3 (4.0-10.0)
[2017-02-10] MEDS ORDERED: DEXTROSE 50%-WATER 25 GM/50 ML DISP.SYRIN ONE (07:14)
[2017-02-10] MEDS: INSULIN SLIDING SCALE (NOVOLOG) 1 VIAL SQ SCH ×4 (07:23→22:26)
[2017-02-10] MEDS: LEVOTHYROXINE NA 112 MCG TABLET (FP) PO SCH (07:23)
[2017-02-10] MEDS: INSULIN DETEMIR 100 UNITS/ML MDV SQ SCH (07:25)
[2017-02-10 07:48] LABS: ALBUMIN 2.6 g/dl (3.4-5.0); ALK PHOS 83 U/L (45-117); ANION GAP 7 (8-16); BILIRUBIN,TOTAL 1.2 mg/dL (0.2-1.0); CALCIUM 7.8 mg/dL (8.5-10.1); CO2 27 mmol/L (21-32); CREATININE 0.8 mg/dL (0.55-1.02); SGOT/AST 17 U/L (15-37); SGPT/ALT 13 U/L (12-78); TOT PROT 5.7 g/dl (6.4-8.2)
[2017-02-10] MEDS ORDERED: ONDANSETRON 4 MG/2 ML VIAL IVPB PRN (08:00)
[2017-02-10] MEDS ORDERED: INSULIN DETEMIR 100 UNITS/ML MDV SQ ONE (08:01)
[2017-02-10 08:23] LABS: GLUCOSE,RANDOM 45 mg/dL (74-106)
--- NOTE | 2017-02-10 10:38 | PN ---
Progress Note, Physician Chief Complaint: Colitis, Nausea, vomiting History of Present Illness: -No vomiting today -hypoglycemia noted today -insulin adjusted by endocrinology -poor appetite -on reglan and protonix IV drip - Current Medication List Current Medications: Active Medications Acetaminophen (Tylenol -) 650 mg PO Q6H PRN PRN Reason: FEVER OR PAIN Atorvastatin Calcium (Lipitor -) 20 mg PO HS [facility] Last Admin: 02/09/17 21:21 Dose: 20 mg Carvedilol (Coreg -) 3.125 mg PO BID [facility] Last Admin: 02/09/17 21:21 Dose: 3.125 mg Fluocinonide (Lidex 0.05% Ointment -) 1 applic TP DAILY [facility] Last Admin: 02/09/17 11:08 Dose: 1 applic Furosemide (Lasix -) 40 mg PO DAILY [facility] Last Admin: 02/09/17 10:37 Dose: 40 mg Sodium Chloride (Normal Saline -) 1,000 mls @ 75 mls/hr IV ASDIR [facility] Last Admin: 02/10/17 07:23 Dose: Not Given Metronidazole (Flagyl 500mg Premixed Ivpb -) 500 mg in 100 mls @ 100 mls/hr IVPB Q8H-IV [facility] Last Admin: 02/10/17 01:11 Dose: 100 mls/hr Insulin Aspart (Novolog Vial Sliding Scale -) 1 vial SQ ACHS [facility] PRN Reason: Protocol Last Admin: 02/10/17 07:23 Dose: Not Given Insulin Detemir (Levemir Vial) 25 units SQ AM [facility] Last Admin: 02/10/17 07:25 Dose: Not Given Levothyroxine Sodium (Synthroid -) 112 mcg PO DAILY@0700 [facility] Last Admin: 02/10/17 07:23 Dose: 112 mcg Metoclopramide HCl (Reglan Injection -) 10 mg IVPUSH Q8H-IV [facility] Morphine Sulfate (Morphine Sulfate) 2 mg IVPUSH Q6H PRN PRN Reason: PAIN Last Admin: 02/10/17 04:07 Dose: 2 mg Nystatin (Nystop Powder -) 1 applic TP DAILY [facility] Last Admin: 02/09/17 11:07 Dose: 1 applic Ondansetron HCl (Zofran Injection) 4 mg IVPUSH Q4H PRN PRN Reason: NAUSEA AND/OR VOMITING Pantoprazole Sodium (Protonix Iv) 40 mg IVPUSH BID [facility] Last Admin: 02/09/17 21:22 Dose: 40 mg Valsartan (Diovan -) 160 mg PO DAILY [facility] Last Admin: 02/09/17 10:37 Dose: 160 mg - Objective Vital Signs: Vital Signs Temperature 98.0 F 02/10/17 06:08 Pulse Rate 73 02/10/17 06:08 Respiratory Rate 18 02/10/17 06:08 Blood Pressure 128/61 02/10/17 06:08 O2 Sat by Pulse Oximetry (%) 97 02/09/17 21:00 Constitutional: Yes: Well Nourished, No Distress, Calm Cardiovascular: Yes: Regular Rate and Rhythm Respiratory: Yes: Regular Gastrointestinal: Yes: Normal Bowel Sounds Labs: CBC, BMP 02/10/17 06:15 02/10/17 06:15 Problem List - Problems (1) Colitis Assessment/Plan: -seen by GI -IVF -Protonix -reglan flagyl IVP Code(s): K52.9 - NONINFECTIVE GASTROENTERITIS AND COLITIS, UNSPECIFIED (2) Dehydration Assessment/Plan: -IVF -reglan for vomiting, no vomiting today Code(s): E86.0 - DEHYDRATION (3) Nausea & vomiting Assessment/Plan: -reglan Code(s): R11.2 - NAUSEA WITH VOMITING, UNSPECIFIED Assessment/Plan see problem list
[2017-02-10] MEDS: FUROSEMIDE 40 MG TABLET (FP) PO SCH (10:42)
[2017-02-10] MEDS: FLUOCINONIDE 0.05% TOP OINT (15 GM TUBE) TP SCH (10:42)
[2017-02-10] MEDS: CARVEDILOL 3.125 MG TABLET (FP) PO SCH ×2 (10:42→22:27)
[2017-02-10] MEDS: NYSTATIN POWDER 100,000 UNITS/GM - 15 GM TOPICAL POWDER TP SCH (10:42)
[2017-02-10] MEDS: VALSARTAN 160 MG TABLET (UD) PO SCH (10:42)
[2017-02-10] MEDS: METOCLOPRAMIDE HCL INJECTION 10 MG/2 ML VIAL IVPUSH SCH ×2 (10:43→17:57)
[2017-02-10] MEDS: PANTOPRAZOLE SODIUM 40 MG VIAL IVPUSH SCH ×2 (10:43→22:27)
[2017-02-10] MEDS: ATORVASTATIN CA 20 MG TABLET (FP) PO SCH (22:27)
[2017-02-11] MEDS: METOCLOPRAMIDE HCL INJECTION 10 MG/2 ML VIAL IVPUSH SCH ×2 (02:45→09:43)
[2017-02-11] MEDS: METRONIDAZOLE 500 MG PREMIXED 500 MG/100 ML MG IVPB SCH ×2 (02:45→09:41)
[2017-02-11] MEDS: INSULIN SLIDING SCALE (NOVOLOG) 1 VIAL SQ SCH ×4 (06:14→21:48)
[2017-02-11] MEDS: LEVOTHYROXINE NA 112 MCG TABLET (FP) PO SCH (06:15)
[2017-02-11] MEDS: INSULIN DETEMIR 100 UNITS/ML MDV SQ SCH (06:23)
[2017-02-11] MEDS ORDERED: PT OWN MED DRAWER 7, Y5N ONE (06:50)
[2017-02-11] MEDS: CARVEDILOL 3.125 MG TABLET (FP) PO SCH ×2 (09:40→21:45)
[2017-02-11] MEDS: FUROSEMIDE 40 MG TABLET (FP) PO SCH (09:40)
[2017-02-11] MEDS: VALSARTAN 160 MG TABLET (UD) PO SCH (09:40)
[2017-02-11] MEDS: FLUOCINONIDE 0.05% TOP OINT (15 GM TUBE) TP SCH (09:41)
[2017-02-11] MEDS: NYSTATIN POWDER 100,000 UNITS/GM - 15 GM TOPICAL POWDER TP SCH (09:41)
[2017-02-11] MEDS: PANTOPRAZOLE SODIUM 40 MG VIAL IVPUSH SCH (09:43)
[2017-02-11] MEDS: SODIUM CHLORIDE 1,000 ML IV SCH (11:45)
--- NOTE | 2017-02-11 16:34 | PN ---
Progress Note, Physician Chief Complaint: Colitis, Nausea, vomiting History of Present Illness: -No vomiting today -insulin adjusted by endocrinology -tsh elevated, FT4 normal, restarted on levothyroxine by endocrinology -tolerating clear liquid diet -on IV flagyl -on reglan and protonix IV - Current Medication List Current Medications: Active Medications Acetaminophen (Tylenol -) 650 mg PO Q6H PRN PRN Reason: FEVER OR PAIN Last Admin: 02/10/17 13:30 Dose: 650 mg Atorvastatin Calcium (Lipitor -) 20 mg PO HS [facility] Last Admin: 02/10/17 22:27 Dose: 20 mg Carvedilol (Coreg -) 3.125 mg PO BID [facility] Last Admin: 02/11/17 09:40 Dose: 3.125 mg Fluocinonide (Lidex 0.05% Ointment -) 1 applic TP DAILY [facility] Last Admin: 02/11/17 09:41 Dose: 1 applic Furosemide (Lasix -) 40 mg PO DAILY [facility] Last Admin: 02/11/17 09:40 Dose: 40 mg Sodium Chloride (Normal Saline -) 1,000 mls @ 75 mls/hr IV ASDIR [facility] Last Admin: 02/11/17 11:45 Dose: Not Given Metronidazole (Flagyl 500mg Premixed Ivpb -) 500 mg in 100 mls @ 100 mls/hr IVPB Q8H-IV [facility] Last Admin: 02/11/17 09:41 Dose: 100 mls/hr Insulin Aspart (Novolog Vial Sliding Scale -) 1 vial SQ ACHS [facility] PRN Reason: Protocol Last Admin: 02/11/17 11:50 Dose: Not Given Insulin Detemir (Levemir Vial) 25 units SQ AM [facility] Last Admin: 02/11/17 06:23 Dose: 25 units Levothyroxine Sodium (Synthroid -) 112 mcg PO DAILY@0700 [facility] Last Admin: 02/11/17 06:15 Dose: 112 mcg Metoclopramide HCl (Reglan Injection -) 10 mg IVPUSH Q8H-IV [facility] Last Admin: 02/11/17 09:43 Dose: 10 mg Morphine Sulfate (Morphine Sulfate) 2 mg IVPUSH Q6H PRN PRN Reason: PAIN Last Admin: 02/10/17 04:07 Dose: 2 mg Nystatin (Nystop Powder -) 1 applic TP DAILY [facility] Last Admin: 02/11/17 09:41 Dose: 1 applic Ondansetron HCl (Zofran Injection) 4 mg IVPUSH Q4H PRN PRN Reason: NAUSEA AND/OR VOMITING Pantoprazole Sodium (Protonix Iv) 40 mg IVPUSH BID [facility] Last Admin: 02/11/17 09:43 Dose: 40 mg Valsartan (Diovan -) 160 mg PO DAILY [facility] Last Admin: 02/11/17 09:40 Dose: 160 mg - Objective Vital Signs: Vital Signs Temperature 98.1 F 02/11/17 14:56 Pulse Rate 84 02/11/17 14:56 Respiratory Rate 22 02/11/17 14:56 Blood Pressure 117/65 02/11/17 14:56 O2 Sat by Pulse Oximetry (%) 98 02/10/17 21:00 Constitutional: Yes: Well Nourished, No Distress, Calm Cardiovascular: Yes: Regular Rate and Rhythm Respiratory: Yes: Regular Musculoskeletal: Yes: WNL Extremities: Yes: WNL Edema: No Peripheral Pulses WNL: Yes Neurological: Yes: Alert, Pre-Existing Deficit Psychiatric: Yes: Alert Labs: CBC, BMP 02/10/17 06:15 02/10/17 06:15 Problem List - Problems (1) Colitis Assessment/Plan: -seen by GI -d/c IVF -encourage PO fluids -change Protonix, reglan and flagyl to PO -advance diet to full liquids Code(s): K52.9 - NONINFECTIVE GASTROENTERITIS AND COLITIS, UNSPECIFIED (2) Dehydration Assessment/Plan: -reglan for vomiting, no vomiting today Code(s): E86.0 - DEHYDRATION (3) Nausea & vomiting Assessment/Plan: -reglan Code(s): R11.2 - NAUSEA WITH VOMITING, UNSPECIFIED Assessment/Plan see problem list
[2017-02-11] MEDS: metroNIDAZOLE 250 MG TABLET PO SCH ×2 (17:17→21:45)
[2017-02-11] MEDS ORDERED: INSULIN (NOVOLOG) ASPART 100 UNITS/ML 10ML VIAL ONE (21:28)
[2017-02-11] MEDS ORDERED: INSULIN DETEMIR 100 UNITS/ML MDV SQ SCH (21:41)
[2017-02-11] MEDS: ATORVASTATIN CA 20 MG TABLET (FP) PO SCH (21:45)
--- NOTE | 2017-02-11 21:45 | PN ---
Progress Note, Physician Chief Complaint: appetite improved sugars stable,bm not having abdominal pain - Current Medication List Current Medications: Active Medications Acetaminophen (Tylenol -) 650 mg PO Q6H PRN PRN Reason: FEVER OR PAIN Last Admin: 02/10/17 13:30 Dose: 650 mg Atorvastatin Calcium (Lipitor -) 20 mg PO HS [facility] Last Admin: 02/10/17 22:27 Dose: 20 mg Carvedilol (Coreg -) 3.125 mg PO BID [facility] Last Admin: 02/11/17 09:40 Dose: 3.125 mg Fluocinonide (Lidex 0.05% Ointment -) 1 applic TP DAILY [facility] Last Admin: 02/11/17 09:41 Dose: 1 applic Furosemide (Lasix -) 40 mg PO DAILY [facility] Last Admin: 02/11/17 09:40 Dose: 40 mg Insulin Aspart (Novolog Vial Sliding Scale -) 1 vial SQ ACHS [facility] PRN Reason: Protocol Last Admin: 02/11/17 17:17 Dose: Not Given Levothyroxine Sodium (Synthroid -) 112 mcg PO DAILY@0700 [facility] Last Admin: 02/11/17 06:15 Dose: 112 mcg Metoclopramide HCl (Reglan -) 10 mg PO TIDAC [facility] Metronidazole (Flagyl -) 500 mg PO TID [facility] Last Admin: 02/11/17 17:17 Dose: 500 mg Morphine Sulfate (Morphine Sulfate) 2 mg IVPUSH Q6H PRN PRN Reason: PAIN Last Admin: 02/10/17 04:07 Dose: 2 mg Nystatin (Nystop Powder -) 1 applic TP DAILY [facility] Last Admin: 02/11/17 09:41 Dose: 1 applic Pantoprazole Sodium (Protonix -) 40 mg PO DAILY [facility] Valsartan (Diovan -) 160 mg PO DAILY [facility] Last Admin: 02/11/17 09:40 Dose: 160 mg - Objective Vital Signs: Vital Signs Temperature 98.5 F 02/11/17 18:30 Pulse Rate 81 02/11/17 18:30 Respiratory Rate 22 02/11/17 18:30 Blood Pressure 133/82 02/11/17 18:30 O2 Sat by Pulse Oximetry (%) 98 02/11/17 09:00 Constitutional: Yes: Well Nourished, Anxious Eyes: Yes: EOM Intact HENT: Yes: Normocephalic Neck: Yes: Trachea Midline Cardiovascular: Yes: Regular Rate and Rhythm Respiratory: Yes: CTA Bilaterally Gastrointestinal: Yes: Normal Bowel Sounds, Soft, Abdomen, Obese ...Rectal Exam: Yes: Deferred Genitourinary: Yes: WNL Musculoskeletal: Yes: Joint Swelling, Muscle Weakness Extremities: Yes: Delayed Capillary Refill, Erythema Edema: No Psychiatric: Yes: Alert, Oriented Labs: CBC, BMP 02/10/17 06:15 02/10/17 06:15 Problem List - Problems (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 Code(s): E11.49 - TYPE 2 DIABETES [facility] DIABETIC NEUROLOGICAL COMPLICATION (2) Colitis Code(s): K52.9 - NONINFECTIVE GASTROENTERITIS AND COLITIS, UNSPECIFIED (3) Dehydration Code(s): E86.0 - DEHYDRATION (4) Epigastric abdominal pain Code(s): R10.13 - EPIGASTRIC PAIN (5) Nausea & vomiting Code(s): R11.2 - NAUSEA WITH VOMITING, UNSPECIFIED (6) Pulmonary nodule Code(s): R91.1 - SOLITARY PULMONARY NODULE (7) Breast pain, left Code(s): N64.4 - MASTODYNIA Assessment/Plan Current Active Problems Colitis (Acute) Dehydration (Acute) Epigastric abdominal pain (Acute) Nausea & vomiting (Acute) Pulmonary nodule (Acute) Type 2 diabetes mellitus with other diabetic neurological complication (Acute) hypothyroidism Abnormal Lab Results 02/11/17 07:30 TSH 16.70 H D Laboratory Results - last 24 hr 02/10/17 02/11/17 02/11/17 22:03 06:13 07:30 POC Glucometer 147 135 TSH 16.70 H D Free T4 02/11/17 02/11/17 02/11/17 07:30 11:48 17:15 POC Glucometer 123 162 TSH Free T4 1.17 plan: resume synthoroid 112mcg as patient was not taking meds at home levemir 15 units am bgm with coverage novolog achs
[2017-02-12] MEDS ORDERED: PT OWN MED DRAWER 7, Y5N ONE ×2 (06:02→16:32)
[2017-02-12] MEDS: LEVOTHYROXINE NA 112 MCG TABLET (FP) PO SCH (06:35)
[2017-02-12] MEDS: METOCLOPRAMIDE HCL 10 MG TABLET (FP) PO SCH ×2 (06:35→12:14)
[2017-02-12] MEDS: metroNIDAZOLE 250 MG TABLET PO SCH ×2 (06:35→13:54)
[2017-02-12] MEDS: INSULIN SLIDING SCALE (NOVOLOG) 1 VIAL SQ SCH ×2 (06:39→12:13)
[2017-02-12] MEDS ORDERED: INSULIN DETEMIR 100 UNITS/ML MDV SQ ONE (06:47)
[2017-02-12] MEDS: FUROSEMIDE 40 MG TABLET (FP) PO SCH (09:40)
[2017-02-12] MEDS: VALSARTAN 160 MG TABLET (UD) PO SCH (09:41)
[2017-02-12] MEDS: CARVEDILOL 3.125 MG TABLET (FP) PO SCH (09:41)
[2017-02-12] MEDS: FLUOCINONIDE 0.05% TOP OINT (15 GM TUBE) TP SCH (09:43)
[2017-02-12] MEDS: NYSTATIN POWDER 100,000 UNITS/GM - 15 GM TOPICAL POWDER TP SCH (09:43)
[2017-02-12] MEDS ORDERED: PANTOPRAZOLE 40 MG TABLET (FP) PO SCH (10:00)
[2017-02-12 14:56] VITALS: BP 112/59; PULSE 92; TEMP 97.7
--- NOTE | 2017-02-12 15:41 | DS ---
Physical Examination Vital Signs: Vital Signs Temperature 97.7 F 02/12/17 14:55 Pulse Rate 92 H 02/12/17 14:55 Respiratory Rate 22 02/12/17 14:55 Blood Pressure 112/59 02/12/17 14:55 O2 Sat by Pulse Oximetry (%) 95 02/11/17 21:00 Constitutional: Yes: Well Nourished, No Distress, Calm Cardiovascular: Yes: Regular Rate and Rhythm Respiratory: Yes: Regular Gastrointestinal: Yes: Normal Bowel Sounds, Abdomen, Obese Musculoskeletal: Yes: WNL Extremities: Yes: WNL Edema: No Peripheral Pulses WNL: Yes Neurological: Yes: Alert, Oriented Psychiatric: Yes: Alert, Oriented Labs: CBC, BMP 02/10/17 06:15 02/10/17 06:15 Discharge Summary Reason For Visit: COLITIS DEHYDRATION Current Active Problems Colitis (Acute) Dehydration (Acute) Epigastric abdominal pain (Acute) Nausea & vomiting (Acute) Pulmonary nodule (Acute) Type 2 diabetes mellitus with other diabetic neurological complication (Acute) Hospital Course: The patient is a 86 year old female brought via EMS and presenting with her family, with a significant past medical history of Skin CA, fatty liver, MVP, COPD, CHF, thyroid disease, asthma, HTN, HLD and diabetes, who presents to the emergency department with constipation, abdominal pain, nausea and vomiting for the past month.The family states that she has been refusing to come to the ED during this time frame until her symptoms exacerbated today. The family notes that the patient's sugar levels have been up and down during this time frame, with her last reading being today at 99. During her stay she was treated with IV flagyl, protonix and reglan which was switched to PO. Diet was gradually advanced until she was able to tolerate regular solid foods. Condition: Fair - Instructions Diet, Activity, Other Instructions: -Low sodium diet -flagyl 500 mg 1 tab 3 x day for 5 days -Protonix 40 mg 1 tab daily -Reglan 10 mg, 1 tab 3 x day as needed -F/U with Gastroenterology [facility] Saxena Referrals: Tyrell Back MD [Primary Care Provider] - Disposition: VNS/HOME HEALTH CARE - Home Medications Comprehensive Discharge Medication List: Ambulatory Orders Ammonium Lactate Lotion [Lac-Hydrin 12] 1 applic TP BID #1 oz 05/29/14 Fluocinonide 0.05% Oin [Lidex 0.05% Ointment -] 1 applic TP BID #1 applic Menthol/Camphor [Sarna Anti-Itch -] 1 applic TP TID #120 grams 05/29/14 Valsartan [Diovan] 160 mg PO DAILY #30 05/29/14 Insulin Aspart [Novolog Flexpen] 10 unit SQ QID 07/29/15 Sennosides [Senna] 2 tab PO HS 07/29/15 Acetaminophen [Tylenol .Regular Strength -] 650 mg PO Q4H PRN #0 tablet Clotrimazole [Gyne-Lotrimin -] 1 applic VG HS #3 tube 08/01/15 Diphenhydramine HCl [Benadryl Capsule -] 25 mg PO HS PRN #30 capsule 08/01/15 Docusate Sodium [Colace -] 100 mg PO BID #60 capsule 08/01/15 Metoclopramide HCl [Reglan -] 10 mg PO ACHS PRN #10 tablet 08/01/15 Nystatin Powder [Nystop Powder -] 1 applic TP BID 14 Days applic 08/01/15 Carvedilol [Coreg -] 3.125 mg PO BID #60 tablet 08/15/15 Atorvastatin Calcium 40 mg PO DAILY 10/14/16 Ciprofloxacin HCl/Dexameth [Ciprodex Otic Suspension] 3 drop AD BID #1 bottle Famotidine [Pepcid -] 20 mg PO BID #14 tablet 10/14/16 Furosemide [Lasix] 40 mg PO DAILY 10/14/16 Insulin Degludec [Tresiba Flextouch U-100] 40 unit SQ QID 10/14/16 Levothyroxine [Synthroid -] 112 mcg PO DAILY@0700 10/14/16 Metoclopramide HCl [Reglan -] 10 mg PO ACHS #10 tablet 10/14/16 Metoclopramide HCl [Reglan] 10 mg PO TID PRN #5 tablet 02/12/17 Metronidazole [Flagyl -] 500 mg PO TID #15 tablet 02/12/17 Pantoprazole Sodium [Protonix] 40 mg PO DAILY #30 tablet. 02/12/17
[2017-02-12] MEDS ORDERED: FLU VACCINE QUAD 60 MCG/0.5 ML (MDV 17-18) IM ONE (16:15)
== END 2017-02-12 16:30 | disposition home health service (06) | DRG 392 ==
LOC: JER 00:28 → JERBED 06:00 → UNDOADMIN 06:09 → JERBED 06:09 → J5S 06:46
PROVIDERS: ADMIT Internal Medicine; ATTEND Family Medicine
DX: K52.9 Noninfective gastroenteritis and colitis, unspecified (principal); Z68.41 Body mass index [BMI] 40.0-44.9, adult; J44.9 Chronic obstructive pulmonary disease, unspecified; E78.5 Hyperlipidemia, unspecified; K76.0 Fatty (change of) liver, not elsewhere classified; I34.1 Nonrheumatic mitral (valve) prolapse; R91.1 Solitary pulmonary nodule; E86.0 Dehydration; I25.10 Atherosclerotic heart disease of native coronary artery without angina pectoris; I11.0 Hypertensive heart disease with heart failure; R42 Dizziness and giddiness; R10.13 Epigastric pain; F03.90 Unspecified dementia, unspecified severity, without behavioral disturbance, psychotic disturbance, mood disturbance, and anxiety; E03.9 Hypothyroidism, unspecified; K59.09 Other constipation; N64.4 Mastodynia; E66.01 Morbid (severe) obesity due to excess calories; E11.43 Type 2 diabetes mellitus with diabetic autonomic (poly)neuropathy; K31.84 Gastroparesis; E11.65 Type 2 diabetes mellitus with hyperglycemia; Z87.891 Personal history of nicotine dependence; Z85.828 Personal history of other malignant neoplasm of skin; Z85.850 Personal history of malignant neoplasm of thyroid; Z79.4 Long term (current) use of insulin
CPT/HCPCS: 36415; 74177-TC; 80053; 82009; 82550; 83036; 83605; 83690; 84439; 84443; 84484; 85025; 85651; 86140; 90688; 99282-25; G0008

== ENCOUNTER 2017-03-14 03:06 | Inpatient (IN) | payer OTHER ==
--- NOTE | 2017-03-14 03:28 | PDOC ---
History of Present Illness - General History Source: Patient Exam Limitations: No Limitations - History of Present Illness Initial Comments: 03/14/17 04:04 The patient is a 86-year-old female BIBA with a significant past medical history of HTN, HLD, IDDM, hypothyroidism, CHF, COPD, skin CA, MVP, fatty liver , who presents to the emergency department with altered mental status today. Patient is confused, and EMS was called by family. EMS checked her sugar en route and it was low at 64. EMS gave her D50 en route. Patient is a poor historian. No shortness of breath, headache and dizziness. No fever, chills, nausea, vomit , diarrhea and constipation. Allergies: NKDA PCP: Dr. Back <Ivon Conrad - Last Filed: 03/14/17 06:09> <Anne Mendez - Last Filed: 03/18/17 10:49> - General Chief Complaint: Blood Sugar Problem Stated Complaint: AMS Time Seen by Provider: 03/14/17 03:19 Past History <Ivon Conrad - Last Filed: 03/14/17 06:09> - Past Medical History Anemia: No Asthma: Yes Cancer: Yes (SKIN) Cardiac Disorders: Yes (MITRAL VALVE PROLAPSE) CVA: No COPD: Yes CHF: Yes Dementia: No Diabetes: Yes GI Disorders: Yes Disorders: No HTN: Yes Hypercholesterolemia: Yes Liver Disease: Yes (FATTY LIVER) Seizures: No Thyroid Disease: Yes - Surgical History Abdominal Surgery: Yes Appendectomy: No Cardiac Surgery: No Cholecystectomy: Yes Lung Surgery: No Neurologic Surgery: No Orthopedic Surgery: No - Suicide/Smoking/Psychosocial Hx Smoking Status: Yes Smoking History: Never smoked Have you smoked in the past 12 months: No Number of Cigarettes Smoked Daily: 0 If you are a former smoker, when did you quit?: 1985 Cigars Per Day: 0 Information on smoking cessation initiated: No Hx Alcohol Use: No Drug/Substance Use Hx: No Substance Use Type: None Hx Substance Use Treatment: Yes <Anne Mendez - Last Filed: 03/18/17 10:49> - Past Medical History Allergies/Adverse Reactions: Allergies Allergy/AdvReac Type Severity Reaction Status Date / Time No Known Allergies Allergy Verified 03/14/17 03:08 Home Medications: Ambulatory Orders Ammonium Lactate Lotion [Lac-Hydrin 12] 1 applic TP BID #1 oz 05/29/14 Fluocinonide 0.05% Oin [Lidex 0.05% Ointment -] 1 applic TP BID #1 applic Menthol/Camphor [Sarna Anti-Itch -] 1 applic TP TID #120 grams 05/29/14 Sennosides [Senna] 2 tab PO HS 07/29/15 Acetaminophen [Tylenol .Regular Strength -] 650 mg PO Q4H PRN #0 tablet Clotrimazole [Gyne-Lotrimin -] 1 applic VG HS #3 tube 08/01/15 Docusate Sodium [Colace -] 100 mg PO BID #60 capsule 08/01/15 Nystatin Powder [Nystop Powder -] 1 applic TP BID 14 Days applic 08/01/15 Carvedilol [Coreg -] 3.125 mg PO BID #60 tablet 08/15/15 Atorvastatin Calcium 40 mg PO DAILY 10/14/16 Pantoprazole Sodium [Protonix] 40 mg PO DAILY #30 tablet. 02/12/17 Acetaminophen [Tylenol .Regular Strength -] 650 mg PO Q6H PRN tablet 03/16/17 Furosemide [Lasix -] 20 mg PO DAILY #30 tablet 03/16/17 Insulin (Levemir) [Levemir Vial] 15 units SQ AM ml 03/16/17 Insulin Sliding Scale [Novolog Vial Sliding Scale -] 1 vial SQ ACHS units 03/16 Levofloxacin [Levaquin -] 250 mg PO DAILY #30 tablet 03/16/17 Levothyroxine [Synthroid -] 150 mcg PO DAILY #30 tablet 03/16/17 Metoclopramide HCl [Reglan -] 5 mg PO TIDAC #90 tablet 03/16/17 Polyethylene Glycol 3350 [Miralax 119 gm Btl -] 34 gm PO DAILY bottle 03/16/17 Valsartan [Diovan] 80 mg PO DAILY #30 tablet 03/16/17 Review of Systems - Review of Systems Able to Perform ROS?: No (2/2 confusion) <Ivon Conrad - Last Filed: 03/14/17 06:09> *Physical Exam - Vital Signs Last Vital Signs Temp Pulse Resp BP Pulse Ox 98.0 F 93 H 14 160/85 98 03/14/17 03:08 03/14/17 03:08 03/14/17 03:08 03/14/17 03:08 03/14/17 03:08 <Ivon Conrad - Last Filed: 03/14/17 06:09> - Vital Signs Last Vital Signs Temp Pulse Resp BP Pulse Ox 98.0 F 93 H 14 160/85 98 03/14/17 03:08 03/14/17 03:08 03/14/17 03:08 03/14/17 03:08 03/14/17 03:08 - Physical Exam Comments: GENERAL: Awake, alert, and fully oriented, in no acute distress. Morbidly obese. HEAD: No signs of trauma EYES: PERRLA, EOMI, sclera anicteric, conjunctiva clear ENT: Auricles normal inspection, hearing grossly normal, nares patent, oropharynx clear without exudates. Dry mucosa NECK: Normal ROM, supple, no lymphadenopathy, JVD, or masses LUNGS: Breath sounds equal, clear to auscultation bilaterally. No wheezes, and no crackles HEART: Regular rate and rhythm, normal S1 and S2, no murmurs, rubs or gallops ABDOMEN: Soft, nontender, normoactive bowel sounds. No guarding, no rebound. No masses EXTREMITIES: Normal range of motion, no edema. No clubbing or cyanosis. No cords, erythema, or tenderness NEUROLOGICAL: Cranial nerves II through XII grossly intact. Normal speech. Motor and sensation intact. SKIN: Warm, Dry, normal turgor, no rashes or lesions noted. <Anne Mendez - Last Filed: 03/18/17 10:49> ED Treatment Course - LABORATORY CBC & Chemistry Diagram: 03/14/17 03:47 03/14/17 03:47 <Ivon Conrad - Last Filed: 03/14/17 06:09> - LABORATORY CBC & Chemistry Diagram: 03/15/17 05:45 03/15/17 05:45 <Anne Mendez - Last Filed: 03/18/17 10:49> Medical Decision Making - Medical Decision Making 03/14/17 07:[address] Gonzalez at shift change. Presented with mild hypoglycemia. Awaiting differential on UA to r/o UTI. BGM has been stable in ED. <Anne Mendez - Last Filed: 03/18/17 10:49> *DC/Admit/Observation/Transfer - Attestations Scribe Attestion: 03/14/17 04:07 Documentation prepared by Ivon Conrad, acting as medical education manager for Anne Mendez MD, /DO. <Ivon Conrad - Last Filed: 03/14/17 06:09> <Anne Mendez - Last Filed: 03/18/17 10:49> Diagnosis at time of Disposition: UTI (urinary tract infection) - Discharge Dispostion Disposition: HOME Condition at time of disposition: Stable
[2017-03-14 04:13] LABS: BASO % 0.8 % (0-2.0); EOS % 1.5 % (0-4.5); MEAN CELL VOLUME 90.8 fl (80-96); MEAN PLT VOLUME 9.4 fl (7.5-11.1); NEUT % 60.9 % (42.8-82.8); PLATELET COUNT 191 K/MM3 (134-434); RDW 14.2 % (11.6-15.6); WHITE BLOOD COUNT 10.4 K/mm3 (4.0-10.0)
[2017-03-14 04:42] LABS: ALBUMIN 2.7 g/dl (3.4-5.0); ALK PHOS 93 U/L (45-117); ANION GAP 9 (8-16); BILIRUBIN,TOTAL 0.7 mg/dL (0.2-1.0); CALCIUM 8.2 mg/dL (8.5-10.1); CO2 27 mmol/L (21-32); CREATININE 0.8 mg/dL (0.55-1.02); GLUCOSE,RANDOM 155 mg/dL (74-106); SGOT/AST 17 U/L (15-37); SGPT/ALT 17 U/L (12-78); TOT PROT 6.3 g/dl (6.4-8.2)
[2017-03-14 06:28] LABS: URINE APPEARANCE CLEAR; URINE BILIRUBIN NEGATIVE (NEGATIVE); URINE BLOOD 1+ (NEGATIVE); URINE COLOR LTYELLOW; URINE GLUCOSE (UA) 1+ (NEGATIVE); URINE KETONE NEGATIVE (NEGATIVE); URINE NITRITE NEGATIVE (NEGATIVE); URINE PROTEIN NEGATIVE (NEGATIVE); URINE UROBILINOGEN NEGATIVE mg/dL (0.2-1.0)
[2017-03-14 06:40] LABS: URINE LEUK ESTERASE 1+ (NEGATIVE)
[2017-03-14 06:55] LABS: URINE RBC 1 /hpf (0-3); URINE WBC 16 /hpf (3-5)
--- NOTE | 2017-03-14 08:57 | PDOC ---
*Physical Exam - Vital Signs Last Vital Signs Temp Pulse Resp BP Pulse Ox 98.0 F 100 H 18 137/77 97 03/14/17 03:08 03/14/17 08:47 03/14/17 08:47 03/14/17 08:47 03/14/17 08:47 - Physical Exam Comments: 03/14/17 08:52 VSS well appearing, ambulating independently in ED to/from restroom abd benign neuro intact Heart Score/ECG Review #1 ECG reviewed & interpreted by me at: 13:18 General ECG Interpretation: Sinus Rhythm (with PVC noted), Normal Rate (95), Normal Intervals, No acute ischemic changes (nonspecific T wave change avL) ED Treatment Course - LABORATORY CBC & Chemistry Diagram: 03/14/17 03:47 03/14/17 03:47 - ADDITIONAL ORDERS Additional order review: Laboratory Results 03/14/17 03/14/17 03/14/17 08:08 05:49 03:47 Sodium 140 Potassium 3.7 Chloride 104 Carbon Dioxide 27 Anion Gap 9 BUN 11 D Creatinine 0.8 Creat Clearance w eGFR > 60 POC Glucometer 161.05974 Random Glucose 155 H D Calcium 8.2 L Total Bilirubin 0.7 D AST 17 ALT 17 D Alkaline Phosphatase 93 Total Protein 6.3 L Albumin 2.7 L Lipase 93 Urine Color Ltyellow Urine Appearance Clear Urine pH 6.0 Ur Specific [place] 1.006 Urine Protein Negative Urine Glucose (UA) 1+ H Urine Ketones Negative Urine Blood 1+ H Urine Nitrite Negative Urine Bilirubin Negative Urine Urobilinogen Negative Urine WBC (Auto) 16 Urine RBC (Auto) 1 Ur Epithelial Cells Rare 03/14/17 03/14/17 08:08 03:47 RBC 5.09 MCV 90.8 MCHC 33.0 RDW 14.2 MPV 9.4 Neutrophils % 60.9 Lymphocytes % 28.0 D Monocytes % 8.8 Eosinophils % 1.5 D Basophils % 0.8 POC Glucometer 161.77219 Medical Decision Making - Medical Decision Making 03/14/17 08:52 Received signout on this 86y/o F with nonspecific dizziness/light-headedness, given glucose for FS 64, brought here and labs wnl, glucose over 200, has been well appearing and stable. workup wnl. Plan at signout to f/u urine micro, re-check fingerstick, and discharge home. FS 161, remains well appearing wanting to go home. Urine micro resulted with 16wbc. Culture sent, will start empirically on abx. First dose in ED. understands return criteria. Her daughter will come pick her up. 03/14/17 09:37 Pt did have some nausea and was spitting up otherwise clear saliva, not vomiting. Some concern that this could be contributing to her sxs, but she states she does this every single day, that she attributes it to her anxiety, and that she wants to go home. Reports she has had this evaluated in the past and it is self-limiting. I expressed concern that she might not be able to tolerate PO and control her glucose, but she states she lives with this daily and it is not new. Adamant about still going home, remains neuro intact and is not experiencing dizziness/vertigo with the nausea. 03/14/17 12:10 While awaiting urine culture for UTI, pt became increasingly dizzy and nauseous. Ordered CT head, recheck labs and trop. Now agreeable to admission so Dr. Lam, [facility], called. 03/14/17 12:[address] Lam, admitted under Dr. Barnett. Will place on inpatient tele, requested consult lizz Fair[place] for neuro. *DC/Admit/Observation/Transfer Diagnosis at time of Disposition: UTI (urinary tract infection) Qualifiers: Urinary tract infection type: site unspecified Hematuria presence: without hematuria Qualified Code(s): N39.0 - Urinary tract infection, site not specified - Discharge Dispostion Disposition: HOME Condition at time of disposition: Stable Admit: Yes - Prescriptions - Referrals - Patient Instructions - Post Discharge Activity
[2017-03-14] MEDS ORDERED: NITROFURANTOIN MACROCRYSTAL 50 MG CAPSULE (FP) ONE (09:30)
[2017-03-14] MEDS ORDERED: ONDANSETRON *ODT* 4 MG TABLET SL ONE (09:35)
[2017-03-14] MEDS ORDERED: ONDANSETRON *ODT* 4 MG TABLET ONE (09:37)
[2017-03-14] MEDS: NITROFURANTOIN MACROCRYSTAL 50 MG CAPSULE (FP) PO SCH (09:42)
[2017-03-14 11:03] LABS: URINE LEUK ESTERASE 1+ (NEGATIVE)
[2017-03-14] MEDS ORDERED: CEFTRIAXONE 1 GM in DEXTROSE 5%-WATER - 50 ML IVPB ONE (12:11)
[2017-03-14] MEDS ORDERED: MECLIZINE HCL 25 MG TABLET (FP) PO ONE (12:23)
[2017-03-14] MEDS ORDERED: MECLIZINE HCL 25 MG TABLET (FP) ONE (12:33)
[2017-03-14] MEDS ORDERED: CEFTRIAXONE 1 GM/50 ML BAG ONE (12:33)
[2017-03-14 13:49] LABS: BASO % 1.2 % (0-2.0); EOS % 0.6 % (0-4.5); MCH 29.5 pg (25.7-33.7); MCHC 32.7 g/dl (32.0-36.0); MEAN CELL VOLUME 90.3 fl (80-96); MEAN PLT VOLUME 9.3 fl (7.5-11.1); NEUT % 70.2 % (42.8-82.8); PLATELET COUNT 217 K/MM3 (134-434); RDW 14.4 % (11.6-15.6); WHITE BLOOD COUNT 12.1 K/mm3 (4.0-10.0)
--- NOTE | 2017-03-14 14:05 | HP ---
Admitting History and Physical - Primary Care Physician PCP: Tyrell Back - Admission History of Present Illness: The patient is a 86-year-old female BIBA with a significant past medical history of HTN, HLD, IDDM, hypothyroidism, CHF, COPD, skin CA, MVP, fatty liver , who presents to the emergency department with altered mental status today. Patient is confused, and EMS was called by family. EMS checked her sugar en route and it was low at 64. EMS gave her D50 en route. Patient is a poor historian. while in ER started complaining of nausea also vomited,complaining if vague generalized abdominal pain and reflux.patient was about to go home on oral abx for uti but started having GI symptoms currently getting CT scan. 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 2011 dobut MIBI: no STs ; moderate reversible defect anterior and lateral faith confounded by large breast shadow; nl EF -> pt didn't follow as outpt as planned (was on DATP for a little while). Echo 09/13: nl LVEF, nl RV, nl valve fxn), HTN, Hyperlipdemia Pulmonary: Yes: COPD Gastrointestinal: Yes: Constipation Heme/Onc: Yes: Cancer (thyroid) Endocrine: Yes: Diabetes Mellitus (insulin-dependent for years -> uncontrolled) , Hypothyroidism Dermatology: Yes: Cellulitis (in past, with chronic and intermittent edema) - Smoking History Smoking history: Never smoked Have you smoked in the past 12 months: No Aproximately how many cigarettes per day: 0 If you are a former smoker, when did you quit?: 1984 - Alcohol/Substance Use Hx Alcohol Use: No History of Substance Use: reports: None Home Medications - Allergies Allergies/Adverse Reactions: Allergies Allergy/AdvReac Type Severity Reaction Status Date / Time No Known Allergies Allergy Verified 03/14/17 03:08 - Home Medications Home Medications: Ambulatory Orders Ammonium Lactate Lotion [Lac-Hydrin 12] 1 applic TP BID #1 oz 05/29/14 Fluocinonide 0.05% Oin [Lidex 0.05% Ointment -] 1 applic TP BID #1 applic Menthol/Camphor [Sarna Anti-Itch -] 1 applic TP TID #120 grams 05/29/14 Valsartan [Diovan] 160 mg PO DAILY #30 05/29/14 Insulin Aspart [Novolog Flexpen] 10 unit SQ QID 07/29/15 Sennosides [Senna] 2 tab PO HS 07/29/15 Acetaminophen [Tylenol .Regular Strength -] 650 mg PO Q4H PRN #0 tablet Clotrimazole [Gyne-Lotrimin -] 1 applic VG HS #3 tube 08/01/15 Diphenhydramine HCl [Benadryl Capsule -] 25 mg PO HS PRN #30 capsule 08/01/15 Docusate Sodium [Colace -] 100 mg PO BID #60 capsule 08/01/15 Metoclopramide HCl [Reglan -] 10 mg PO ACHS PRN #10 tablet 08/01/15 Nystatin Powder [Nystop Powder -] 1 applic TP BID 14 Days applic 08/01/15 Carvedilol [Coreg -] 3.125 mg PO BID #60 tablet 08/15/15 Atorvastatin Calcium 40 mg PO DAILY 10/14/16 Ciprofloxacin HCl/Dexameth [Ciprodex Otic Suspension] 3 drop AD BID #1 bottle Famotidine [Pepcid -] 20 mg PO BID #14 tablet 10/14/16 Furosemide [Lasix] 40 mg PO DAILY 10/14/16 Insulin Degludec [Tresiba Flextouch U-100] 40 unit SQ QID 10/14/16 Levothyroxine [Synthroid -] 112 mcg PO DAILY@0700 10/14/16 Metoclopramide HCl [Reglan -] 10 mg PO ACHS #10 tablet 10/14/16 Metoclopramide HCl [Reglan] 10 mg PO TID PRN #5 tablet 02/12/17 Metronidazole [Flagyl -] 500 mg PO TID #15 tablet 02/12/17 Pantoprazole Sodium [Protonix] 40 mg PO DAILY #30 tablet. 02/12/17 Nitrofurantoin Monohyd/M-Cryst [Macrobid -] 100 mg PO BID #14 capsule 03/14/17 Family Disease History - Family Disease History Family Disease History: Diabetes: Daughter Review of Systems - Review of Systems Constitutional: reports: Other (dizziness) Gastrointestinal: reports: Abdominal Pain, Nausea Physical Examination Vital Signs: Vital Signs Temperature 98.3 F 03/14/17 13:36 Pulse Rate 76 03/14/17 13:36 Respiratory Rate 18 03/14/17 13:36 Blood Pressure 134/69 03/14/17 13:36 O2 Sat by Pulse Oximetry (%) 97 03/14/17 13:36 Constitutional: Yes: Calm, Obese Neck: Yes: Trachea Midline Cardiovascular: Yes: Regular Rate and Rhythm, S1, S2 Respiratory: Yes: CTA Bilaterally Gastrointestinal: Yes: Normal Bowel Sounds, Soft, Abdomen, Obese Edema: Yes Neurological: Yes: Alert, Oriented Labs: CBC, BMP 03/14/17 13:30 Imaging - Results Cat Scan: Pending Problem List - Problems (1) Dizziness Assessment/Plan: neurochecks ct head done reprot pending neuro consult carotid doppler meclizine prn Code(s): R42 - DIZZINESS AND GIDDINESS (2) Abdominal pain Assessment/Plan: ct scan of abdomen and pelvis with oral constrast gi eval iv reglan and iv protonix complaining of reflux: r/o peptic ulcer disease iv ppi Code(s): R10.9 - UNSPECIFIED ABDOMINAL PAIN (3) Pulmonary nodule Assessment/Plan: chest ct pulm consult Code(s): R91.1 - SOLITARY PULMONARY NODULE (4) Diabetes mellitus with peripheral vascular disease Assessment/Plan: bgm sliding scale hgbac insulin Code(s): E11.51 - TYPE 2 DIABETES W DIABETIC PERIPHERAL ANGIOPATH W/O GANGRENE (5) UTI (urinary tract infection) Assessment/Plan: iv abx awaiting culture Code(s): N39.0 - URINARY TRACT INFECTION, SITE NOT SPECIFIED Qualifiers: Urinary tract infection type: site unspecified Hematuria presence: without hematuria Qualified Code(s): N39.0 - Urinary tract infection, site not specified (6) Hypothyroid Assessment/Plan: tsh synthroid Code(s): E03.9 - HYPOTHYROIDISM, UNSPECIFIED (7) CAD (coronary artery disease) Assessment/Plan: coreg and lipitor Code(s): I25.10 - ATHSCL HEART DISEASE OF [place] CORONARY ARTERY W/O ANG PCTRS
[2017-03-14 14:10] LABS: ALBUMIN 2.9 g/dl (3.4-5.0); ANION GAP 7 (8-16); BILIRUBIN,TOTAL 0.8 mg/dL (0.2-1.0); CALCIUM 8.8 mg/dL (8.5-10.1); CO2 32 mmol/L (21-32); CREATININE 0.8 mg/dL (0.55-1.02); GLUCOSE,RANDOM 222 mg/dL (74-106); SGOT/AST 21 U/L (15-37); SGPT/ALT 16 U/L (12-78); TOT PROT 7.1 g/dl (6.4-8.2)
[2017-03-14 14:12] LABS: ALK PHOS 106 U/L (45-117); CPK 56 IU/L (26-192); TROPONIN I < 0.02 ng/ml (0.00-0.05)
[2017-03-14] MEDS ORDERED: METOCLOPRAMIDE HCL INJECTION 10 MG/2 ML VIAL IVPUSH PRN (14:12)
--- NOTE | 2017-03-14 14:32 | EKG ---
Test Reason : Blood Pressure : / mmHG Vent. Rate : 095 BPM Atrial Rate : 095 BPM P-R Int : 246 ms QRS Dur : 090 ms QT Int : 366 ms P-R-T Axes : 034 -28 081 degrees QTc Int : 459 ms SINUS RHYTHM WITH 1ST DEGREE A-V BLOCK WITH OCCASIONAL PREMATURE VENTRICULAR COMPLEXES CANNOT RULE OUT ANTERIOR INFARCT (CITED ON OR BEFORE 14-MAR-2017) ABNORMAL ECG WHEN COMPARED WITH ECG OF 13-AUG-2015 05:07, PREMATURE VENTRICULAR COMPLEXES ARE NOW PRESENT QUESTIONABLE CHANGE IN INITIAL FORCES OF ANTERIOR LEADS QT HAS SHORTENED Confirmed by NYASIA MARQUEZ, ANA ([id number]) on 03/14/2017 2:31:53 PM Referred By: Confirmed By:ANA MURRELL MD
[2017-03-14 15:48] VITALS: BMI 44.4
[2017-03-14] MEDS ORDERED: SODIUM CHLORIDE 1,000 ML IV SCH (17:15)
--- NOTE | 2017-03-14 17:44 | CON.GI ---
Consult Consult Specialty:: gastroeneterology Referred by:: Dr Barnett - History of Present Illness History of Present Illness: The patient is a 86-year-old female BIBA with a significant past medical history of HTN, HLD, IDDM, hypothyroidism, CHF, COPD, skin CA, MVP, fatty liver , who presents to the emergency department with altered mental status today. Patient is confused, and EMS was called by family. EMS checked her sugar en route and it was low at 64. EMS gave her D50 en route. Patient is a poor historian. while in ER started complaining of nausea also vomited,complaining if vague generalized abdominal pain and reflux.patient was about to go home on oral abx for uti but started having GI symptoms currently getting CT scan. Patient has vague epigastric pain, associated with nausea and vomiting. She denies melena, rectal bleeding, dysphagia and recent weight loss. 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 2011 dobut MIBI: no STs ; moderate reversible defect anterior and lateral faith confounded by large breast shadow; nl EF -> pt didn't follow as outpt as planned (was on DATP for a little while). Echo 09/13: nl LVEF, nl RV, nl valve fxn), HTN, Hyperlipdemia Pulmonary: Yes: COPD Gastrointestinal: Yes: Constipation Endocrine: Yes: Diabetes Mellitus (insulin-dependent for years -> uncontrolled) , Hypothyroidism Dermatology: Yes: Cellulitis (in past, with chronic and intermittent edema) - Alcohol/Substance Use Hx Alcohol Use: No History of Substance Use: reports: None - Smoking History Smoking history: Never smoked Have you smoked in the past 12 months: No Aproximately how many cigarettes per day: 0 If you are a former smoker, when did you quit?: 1984 - Social History Usual Living Arrangement: With Spouse (who is on HD) Home Medications - Allergies Allergies/Adverse Reactions: Allergies Allergy/AdvReac Type Severity Reaction Status Date / Time No Known Allergies Allergy Verified 03/14/17 03:08 - Home Medications Home Medications: Ambulatory Orders Ammonium Lactate Lotion [Lac-Hydrin 12] 1 applic TP BID #1 oz 05/29/14 Fluocinonide 0.05% Oin [Lidex 0.05% Ointment -] 1 applic TP BID #1 applic Menthol/Camphor [Sarna Anti-Itch -] 1 applic TP TID #120 grams 05/29/14 Valsartan [Diovan] 160 mg PO DAILY #30 05/29/14 Insulin Aspart [Novolog Flexpen] 10 unit SQ QID 07/29/15 Sennosides [Senna] 2 tab PO HS 07/29/15 Acetaminophen [Tylenol .Regular Strength -] 650 mg PO Q4H PRN #0 tablet Clotrimazole [Gyne-Lotrimin -] 1 applic VG HS #3 tube 08/01/15 Diphenhydramine HCl [Benadryl Capsule -] 25 mg PO HS PRN #30 capsule 08/01/15 Docusate Sodium [Colace -] 100 mg PO BID #60 capsule 08/01/15 Metoclopramide HCl [Reglan -] 10 mg PO ACHS PRN #10 tablet 08/01/15 Nystatin Powder [Nystop Powder -] 1 applic TP BID 14 Days applic 08/01/15 Carvedilol [Coreg -] 3.125 mg PO BID #60 tablet 08/15/15 Atorvastatin Calcium 40 mg PO DAILY 10/14/16 Famotidine [Pepcid -] 20 mg PO BID #14 tablet 10/14/16 Furosemide [Lasix] 40 mg PO DAILY 10/14/16 Insulin Degludec [Tresiba Flextouch U-100] 40 unit SQ QID 10/14/16 Levothyroxine [Synthroid -] 112 mcg PO DAILY@0700 10/14/16 Pantoprazole Sodium [Protonix] 40 mg PO DAILY #30 tablet. 02/12/17 Family Disease History - Family Disease History Family Disease History: Diabetes: Daughter Physical Exam-GI Vital Signs: Vital Signs Temperature 98.3 F 03/14/17 13:36 Pulse Rate 76 03/14/17 13:36 Respiratory Rate 18 03/14/17 13:36 Blood Pressure 134/69 03/14/17 13:36 O2 Sat by Pulse Oximetry (%) 97 03/14/17 13:36 Constitutional: Yes: Obese Eyes: Yes: Conjunctiva Clear HENT: Yes: Atraumatic Neck: Yes: Trachea Midline Cardiovascular: Yes: Regular Rate and Rhythm Respiratory: Yes: CTA Bilaterally Gastrointestinal Inspection: Yes: Distention ...Auscultate: Yes: Normoactive Bowel Sounds ...Palpate: Yes: Soft, Tenderness, Epigastium. No: Firm/Rigid, Guarding, Hepatomegaly, Mass, Pulsatile Mass, Splenomegaly Labs: CBC, BMP 03/14/17 13:30 03/14/17 13:30 CBC,CMP WBC 12.1 K/mm3 (4.0-10.0) H 03/14/17 13:30 RBC 5.17 M/mm3 (3.60-5.2) 03/14/17 13:30 Hgb 15.3 GM/dL (10.7-15.3) 03/14/17 13:30 Hct 46.7 % (32.4-45.2) H 03/14/17 13:30 MCV 90.3 fl (80-96) 03/14/17 13:30 MCH 29.5 pg (25.7-33.7) 03/14/17 13:30 MCHC 32.7 g/dl (32.0-36.0) 03/14/17 13:30 RDW 14.4 % (11.6-15.6) 03/14/17 13:30 Plt Count 217 K/MM3 (134-434) 03/14/17 13:30 MPV 9.3 fl (7.5-11.1) 03/14/17 13:30 Neutrophils % 70.2 % (42.8-82.8) 03/14/17 13:30 Lymphocytes % 21.5 % (8-40) D 03/14/17 13:30 Monocytes % 6.5 % (3.8-10.2) 03/14/17 13:30 Eosinophils % 0.6 % (0-4.5) 03/14/17 13:30 Basophils % 1.2 % (0-2.0) 03/14/17 13:30 Sodium 139 mmol/L (136-145) 03/14/17 13:30 Potassium 4.3 mmol/L (3.5-5.1) 03/14/17 13:30 Chloride 100 mmol/L (98-107) 03/14/17 13:30 Carbon Dioxide 32 mmol/L (21-32) 03/14/17 13:30 Anion Gap 7 (8-16) L 03/14/17 13:30 BUN 10 mg/dL (7-18) 03/14/17 13:30 Creatinine 0.8 mg/dL (0.55-1.02) 03/14/17 13:30 Creat Clearance w eGFR > 60 (>60) 03/14/17 13:30 POC Glucometer 161.90083 UNITS (80-120) 03/14/17 08:08 Random Glucose 222 mg/dL (74-106) H D 03/14/17 13:30 Calcium 8.8 mg/dL (8.5-10.1) 03/14/17 13:30 Total Bilirubin 0.8 mg/dL (0.2-1.0) 03/14/17 13:30 AST 21 U/L (15-37) D 03/14/17 13:30 ALT 16 U/L (12-78) 03/14/17 13:30 Alkaline Phosphatase 106 U/L (45-117) 03/14/17 13:30 Creatine Kinase 56 IU/L (26-192) 03/14/17 13:30 Troponin I < 0.02 ng/ml (0.00-0.05) 03/14/17 13:30 Total Protein 7.1 g/dl (6.4-8.2) 03/14/17 13:30 Albumin 2.9 g/dl (3.4-5.0) L 03/14/17 13:30 Lipase 93 U/L (73-393) 03/14/17 03:47 Problem List - Problems (1) Epigastric abdominal pain Assessment/Plan: secondary to dyspepsia R> IV Protonix 40mg daily IV Reglan 10mg x1 dose then 5mg 30 min ac made aware to follow up Code(s): R10.13 - EPIGASTRIC PAIN
[2017-03-14] MEDS ORDERED: INSULIN (NOVOLOG) ASPART 100 UNITS/ML 10ML VIAL ONE (17:45)
[2017-03-14] MEDS: INSULIN SLIDING SCALE (NOVOLOG) 1 VIAL SQ SCH ×2 (17:49→22:47)
[2017-03-14] MEDS ORDERED: ATORVASTATIN CA 20 MG TABLET (FP) PO SCH (22:00)
[2017-03-14] MEDS: CARVEDILOL 3.125 MG TABLET (FP) PO SCH (22:46)
[2017-03-14] MEDS: HEPARIN NA (PORCINE) 5,000 UNITS/ML 1ML VIAL SQ SCH (22:46)
[2017-03-15] MEDS: INSULIN SLIDING SCALE (NOVOLOG) 1 VIAL SQ SCH ×4 (06:55→21:54)
[2017-03-15] MEDS ORDERED: LEVOTHYROXINE NA 112 MCG TABLET (FP) PO SCH ×2 (07:00→09:23)
[2017-03-15] MEDS: INSULIN DETEMIR 100 UNITS/ML MDV SQ SCH (07:01)
--- NOTE | 2017-03-15 08:01 | CONSULT ---
Consultation: REQUESTING PROVIDER: CONSULT REQUEST: We have been asked to medically evaluate this patient for pulmonary nodule. HISTORY OF PRESENT ILLNESS: 86F portuguese speaker w/ hx of COPD, CHF, pulmonary HTN, dementia, HTN, HLD, IDDM , hypothyroididm, MVP , skin cancer, thyroid cancer, fatty liver disease and CAD presenting with altered mental status, nausea, and emesis. Pt's family called EMS who found pt to be hypoglycemic to 69, and so they administered D50. Pt currently endorses persistent nausea and emesis, but denies SOB, wheezing, cough, night sweats, recent weight loss, and generalized malaise. In the ED, a CXR showed a nodular density in the right mid-lung, and a CT chest showed a 13cm RUL nodule, so pulmonology was consulted. PMH: COPD, CHF, pulmonary HTN, dementia, HTN, HLD, IDDM, hypothyroididm, MVP , skin cancer, thyroid cancer, fatty liver disease and CAD PSH: cholecystectomy Social Hx: remote tobacco user, denies alcohol and drug use. Lives at home with and son. Family hx: DM in daughter REVIEW OF SYSTEMS: CONSTITUTIONAL: Absent: fever, chills, diaphoresis, generalized weakness, malaise, loss of appetite, weight change HEENT: Absent: rhinorrhea, nasal congestion, throat pain, throat swelling, difficulty swallowing, mouth swelling, ear pain, eye pain, visual changes CARDIOVASCULAR: Absent: chest pain, syncope, palpitations, irregular heart rate, lightheadedness , peripheral edema RESPIRATORY: Absent: cough, shortness of breath, dyspnea with exertion, orthopnea, wheezing, stridor, hemoptysis GASTROINTESTINAL: Absent: abdominal pain, abdominal distension, diarrhea, constipation, melena, hematochezia present: Nausea, emesis GENITOURINARY: Absent: dysuria, frequency, urgency, hesitancy, hematuria, flank pain, genital pain MUSCULOSKELETAL: Absent: myalgia, arthralgia, joint swelling, back pain, neck pain SKIN: Absent: rash, itching, pallor HEMATOLOGIC/IMMUNOLOGIC: Absent: easy bleeding, easy bruising, lymphadenopathy, frequent infections ENDOCRINE: Absent: unexplained weight gain, unexplained weight loss, heat intolerance, cold intolerance NEUROLOGIC: Absent: headache, focal weakness or paresthesias, dizziness, unsteady gait, seizure, mental status changes, bladder or bowel incontinence PSYCHIATRIC: Absent: anxiety, depression, suicidal or homicidal ideation, hallucinations. PHYSICAL EXAMINATION Vital Signs - 24 hr 03/14/17 03/14/17 03/14/17 08:47 13:36 21:00 Temperature 98.3 F 97.9 F Pulse Rate 86 Pulse Rate [ 100 H 76 Right Apical] Respiratory 18 18 20 Rate Blood Pressure 145/69 Blood Pressure 137/77 134/69 [Right Arm] O2 Sat by Pulse 97 97 97 Oximetry (%) 03/15/17 03/15/17 02:00 05:24 Temperature 98.8 F 97.8 F Pulse Rate 86 92 H Pulse Rate [ Right Apical] Respiratory 20 20 Rate Blood Pressure 144/75 153/77 Blood Pressure [Right Arm] O2 Sat by Pulse Oximetry (%) GENERAL: morbidly obese elderly lady, awake, alert, and fully oriented, in no acute distress. HEENT: EOMI, NC, AT NECK: Normal range of motion, supple without lymphadenopathy, JVD, or masses. LUNGS: Breath sounds equal, clear to auscultation bilaterally. No wheezes, and no crackles. No accessory muscle use. HEART: Regular rate and rhythm, normal S1 and S2 without murmur, rub or gallop. ABDOMEN: Soft, nontender, not distended, normoactive bowel sounds, no guarding, no rebound, no masses. No hepatomegaly or splenomegaly. MUSCULOSKELETAL: No LE edema NEUROLOGICAL: Cranial nerves II-XII intact. Normal speech. PSYCHIATRIC: Cooperative. Good eye contact. Appropriate mood and affect. SKIN: Warm, dry, normal turgor, no rashes or lesions noted. Laboratory Results - last 24 hr 03/14/17 03/14/17 03/14/17 05:49 08:08 13:30 WBC 12.1 H RBC 5.17 Hgb 15.3 Hct 46.7 H MCV 90.3 MCH 29.5 MCHC 32.7 RDW 14.4 Plt Count 217 MPV 9.3 Neutrophils % 70.2 Lymphocytes % 21.5 D Monocytes % 6.5 Eosinophils % 0.6 Basophils % 1.2 Sodium Potassium Chloride Carbon Dioxide Anion Gap BUN Creatinine Creat Clearance w eGFR POC Glucometer 161.07964 Random Glucose Calcium Total Bilirubin AST ALT Alkaline Phosphatase Creatine Kinase Troponin I Total Protein Albumin Ur Leukocyte Esterase 1+ H Urine WBC (Auto) 16 Urine RBC (Auto) 1 Ur Epithelial Cells Rare 12/12/17 12/12/17 12/12/17 13:30 17:38 22:47 WBC RBC Hgb Hct MCV MCH MCHC RDW Plt Count MPV Neutrophils % Lymphocytes % Monocytes % Eosinophils % Basophils % Sodium 139 Potassium 4.3 Chloride 100 Carbon Dioxide 32 Anion Gap 7 L BUN 10 Creatinine 0.8 Creat Clearance w eGFR > 60 POC Glucometer 204.15717 129 Random Glucose 222 H D Calcium 8.8 Total Bilirubin 0.8 AST 21 D ALT 16 Alkaline Phosphatase 106 Creatine Kinase 56 Troponin I < 0.02 Total Protein 7.1 Albumin 2.9 L Ur Leukocyte Esterase Urine WBC (Auto) Urine RBC (Auto) Ur Epithelial Cells 03/15/17 05:23 WBC RBC Hgb Hct MCV MCH MCHC RDW Plt Count MPV Neutrophils % Lymphocytes % Monocytes % Eosinophils % Basophils % Sodium Potassium Chloride Carbon Dioxide Anion Gap BUN Creatinine Creat Clearance w eGFR POC Glucometer 174 Random Glucose Calcium Total Bilirubin AST ALT Alkaline Phosphatase Creatine Kinase Troponin I Total Protein Albumin Ur Leukocyte Esterase Urine WBC (Auto) Urine RBC (Auto) Ur Epithelial Cells Active Medications Generic Name Dose Route Start Last Admin Trade Name Freq PRN Reason Stop Dose Admin Acetaminophen 650 mg 03/14/17 14:14 Tylenol - PO Q6H PRN FEVER OR PAIN Atorvastatin Calcium 20 mg 03/14/17 22:00 03/14/17 22:46 Lipitor - PO 20 mg HS LEXI Administration Carvedilol 3.125 mg 03/14/17 22:00 03/14/17 22:46 Coreg - PO 3.125 mg BID LEXI Administration Heparin Sodium (Porcine) 5,000 unit 03/14/17 22:00 03/14/17 22:46 Heparin - SQ 5,000 unit BID LEXI Administration Sodium Chloride 1,000 mls @ 75 mls/hr 03/14/17 17:15 03/14/17 18:10 Normal Saline - IV 75 mls/hr ASDIR LEXI Administration CEFTRIAXONE 1 G/50 ML PREMIX 50 mls @ 100 mls/hr 03/15/17 10:00 Ceftriaxone 1 Gm-D5w Bag IVPB 03/18/17 10:29 DAILY LEXI Insulin Aspart 1 vial 03/14/17 16:30 03/15/17 06:55 Novolog Vial Sliding Scale - SQ Not Given [facility] Protocol Insulin Detemir 15 units 03/15/17 07:00 03/15/17 07:01 Levemir Vial SQ 15 units AM LEXI Administration Levothyroxine Sodium 112 mcg 03/15/17 07:00 03/15/17 06:55 Synthroid - PO 112 mcg DAILY@0700 LEXI Administration Metoclopramide HCl 10 mg 03/14/17 14:12 03/14/17 14:23 Reglan Injection - IVPUSH 10 mg Q6H PRN Administration NAUSEA AND/OR VOMITING Nitrofurantoin Macrocrystals 100 mg 03/14/17 09:00 03/14/17 09:42 Macrodantin - PO 100 mg ONCE LEXI Administration Pantoprazole Sodium 40 mg 03/15/17 10:00 Protonix Iv IVPUSH DAILY LEXI CXR: new nodular density in right midlung CT chest: stable 1.3cm RUL nodule since 11/2007 ASSESSMENT/PLAN: 86F portuguese speaker w/ hx of COPD, CHF, pulmonary HTN, dementia, HTN, HLD, IDDM , hypothyroididm, MVP , skin cancer, thyroid cancer, fatty liver disease and CAD presenting with altered mental status, nausea, and emesis. #pulmonary nodule -stable since 11/2007 -no constitutional or pulmonary symptoms -no need for further screening Rest of care per medical team. Case discussed with attending, Dr. Deleon. Dispo: We will continue to follow the patient. Thank you for this consultative opportunity. -Michael Guzman MD PGY1 Pulmonology Team Visit type - Emergency Visit Emergency Visit: Yes ED Registration Date: 03/14/17 Care time: The patient presented to the Emergency Department on the above date and was hospitalized for further evaluation of their emergent condition. - New Patient This patient is new to me today: Yes Date on this admission: 03/15/17 - Critical Care Critical Care patient: No
[2017-03-15 08:24] LABS: MCH 30.3 pg (25.7-33.7); MCHC 33.3 g/dl (32.0-36.0); MEAN CELL VOLUME 90.7 fl (80-96); MEAN PLT VOLUME 10.1 fl (7.5-11.1); PLATELET COUNT 186 K/MM3 (134-434); RDW 14.5 % (11.6-15.6); WHITE BLOOD COUNT 9.8 K/mm3 (4.0-10.0)
[2017-03-15 08:56] LABS: ALBUMIN 2.7 g/dl (3.4-5.0); ANION GAP 6 (8-16); CALCIUM 8.2 mg/dL (8.5-10.1); CHOLESTEROL 218 mg/dL (50-200); CO2 30 mmol/L (21-32); CREATININE 0.8 mg/dL (0.55-1.02); GLUCOSE,RANDOM 192 mg/dL (74-106); MAGNESIUM 2.3 mg/dL (1.8-2.4); PHOSPHOROUS 2.9 mg/dL (2.5-4.9); SGOT/AST 18 U/L (15-37); SGPT/ALT 17 U/L (12-78); TOT PROT 6.3 g/dl (6.4-8.2)
[2017-03-15 08:57] LABS: ALK PHOS 102 U/L (45-117); BILIRUBIN,TOTAL 1.2 mg/dL (0.2-1.0)
[2017-03-15 09:10] LABS: FREE T4 0.94 ng/dl (0.76-1.46); THYROID STIMULATING HORMONE 25.4 uIU/ml (0.358-3.74)
--- NOTE | 2017-03-15 09:18 | PN ---
Progress Note, Physician History of Present Illness: in bed no cp - Current Medication List Current Medications: Active Medications Acetaminophen (Tylenol -) 650 mg PO Q6H PRN PRN Reason: FEVER OR PAIN Atorvastatin Calcium (Lipitor -) 20 mg PO HS [facility] Last Admin: 03/14/17 22:46 Dose: 20 mg Carvedilol (Coreg -) 3.125 mg PO BID [facility] Last Admin: 03/14/17 22:46 Dose: 3.125 mg Heparin Sodium (Porcine) (Heparin -) 5,000 unit SQ BID [facility] Last Admin: 03/14/17 22:46 Dose: 5,000 unit Sodium Chloride (Normal Saline -) 1,000 mls @ 75 mls/hr IV ASDIR [facility] Last Admin: 03/14/17 18:10 Dose: 75 mls/hr CEFTRIAXONE 1 G/50 ML PREMIX (Ceftriaxone 1 Gm-D5w Bag) 50 mls @ 100 mls/hr IVPB DAILY [facility] Stop: 03/18/17 10:29 Insulin Aspart (Novolog Vial Sliding Scale -) 1 vial SQ ACHS [facility] PRN Reason: Protocol Last Admin: 03/15/17 06:55 Dose: Not Given Insulin Detemir (Levemir Vial) 15 units SQ AM [facility] Last Admin: 03/15/17 07:01 Dose: 15 units Levothyroxine Sodium (Synthroid -) 112 mcg PO DAILY@0700 [facility] Last Admin: 03/15/17 06:55 Dose: 112 mcg Metoclopramide HCl (Reglan Injection -) 10 mg IVPUSH Q6H PRN PRN Reason: NAUSEA AND/OR VOMITING Last Admin: 03/14/17 14:23 Dose: 10 mg Nitrofurantoin Macrocrystals (Macrodantin -) 100 mg PO ONCE [facility] Last Admin: 03/14/17 09:42 Dose: 100 mg Pantoprazole Sodium (Protonix Iv) 40 mg IVPUSH DAILY [facility] - Objective Vital Signs: Vital Signs Temperature 97.8 F 03/15/17 05:24 Pulse Rate 92 H 03/15/17 05:24 Respiratory Rate 20 03/15/17 05:24 Blood Pressure 153/77 03/15/17 05:24 O2 Sat by Pulse Oximetry (%) 97 03/14/17 21:00 Cardiovascular: Yes: Pulse Irregular, S1, S2 Respiratory: Yes: Regular, CTA Bilaterally Gastrointestinal: Yes: Normal Bowel Sounds, Soft. 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--mri neuro consult carotid doppler meclizine prn cardio physical therapy Code(s): R42 - DIZZINESS AND GIDDINESS (2) Abdominal pain Assessment/Plan: improved ct scan of abdomen and pelvis with oral constrast--no sign ds gi eval iv reglan and iv protonix--to po complaining of reflux: r/o peptic ulcer disease iv ppi Code(s): R10.9 - UNSPECIFIED ABDOMINAL PAIN (3) Pulmonary nodule Assessment/Plan: chest ct-STABLE 1.3 CM pulm consult Code(s): R91.1 - SOLITARY PULMONARY NODULE (4) Diabetes mellitus with peripheral vascular disease Assessment/Plan: bgm sliding scale hgbac insulin endo Code(s): E11.51 - TYPE 2 DIABETES W DIABETIC PERIPHERAL ANGIOPATH W/O GANGRENE (5) UTI (urinary tract infection) Assessment/Plan: iv abx awaiting culture Code(s): N39.0 - URINARY TRACT INFECTION, SITE NOT SPECIFIED Qualifiers: Urinary tract infection type: site unspecified Hematuria presence: without hematuria Qualified Code(s): N39.0 - Urinary tract infection, site not specified (6) Hypothyroid Assessment/Plan: tsh--25 increase synthroid to 150 Code(s): E03.9 - HYPOTHYROIDISM, UNSPECIFIED (7) CAD (coronary artery disease) Assessment/Plan: coreg and lipitor cardio Code(s): I25.10 - ATHSCL HEART DISEASE OF [place] CORONARY ARTERY W/O ANG PCTRS (8) Arrythmia Assessment/Plan: EKG TELE
[2017-03-15] MEDS ORDERED: ATORVASTATIN CA 20 MG TABLET (FP) PO SCH (09:21)
[2017-03-15] MEDS ORDERED: cefTRIAXone 1 GM/50 ML BAG (PRE-DOCKED) IVPB SCH (10:00)
[2017-03-15] MEDS ORDERED: PANTOPRAZOLE SODIUM 40 MG VIAL IVPUSH SCH (10:00)
[2017-03-15] MEDS: CEFTRIAXONE 1 G/50 ML PREMIX 50 ML IVPB SCH (10:22)
[2017-03-15] MEDS: HEPARIN NA (PORCINE) 5,000 UNITS/ML 1ML VIAL SQ SCH ×2 (10:22→21:47)
[2017-03-15] MEDS: CARVEDILOL 3.125 MG TABLET (FP) PO SCH ×2 (10:23→21:47)
[2017-03-15] MEDS: NITROFURANTOIN MACROCRYSTAL 50 MG CAPSULE (FP) PO SCH (10:24)
--- NOTE | 2017-03-15 12:06 | CON.PULM ---
Consult Consult Specialty:: PULMONARY Referred by:: MOMO Reason for Consultation:: LUNG NODULE - History of Present Illness Chief Complaint: WEAKNESS/DIZZINESS History of Present Illness: The patient is a 86-year-old female BIBA with a significant past medical history of HTN, HLD, IDDM, hypothyroidism, CHF, COPD, skin CA, MVP, fatty liver , who presents to the emergency department with altered mental status today. Patient is confused, and EMS was called by family. EMS checked her sugar en route and it was low at 64. EMS gave her D50 en route. Patient is a poor historian. Our service has been asked to evaluate for a lung nodule. 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 2011 dobut MIBI: no STs ; moderate reversible defect anterior and lateral faith confounded by large breast shadow; nl EF -> pt didn't follow as outpt as planned (was on DATP for a little while). Echo 09/13: nl LVEF, nl RV, nl valve fxn), HTN, Hyperlipdemia Pulmonary: Yes: COPD Gastrointestinal: Yes: Constipation Endocrine: Yes: Diabetes Mellitus (insulin-dependent for years -> uncontrolled) , Hypothyroidism Dermatology: Yes: Cellulitis (in past, with chronic and intermittent edema) - Alcohol/Substance Use Hx Alcohol Use: No History of Substance Use: reports: None - Smoking History Smoking history: Never smoked Have you smoked in the past 12 months: No Aproximately how many cigarettes per day: 0 If you are a former smoker, when did you quit?: 1984 - Social History Usual Living Arrangement: With Spouse (who is on HD) Place of : Other History of Recent Travel: No Home Medications - Allergies Allergies/Adverse Reactions: Allergies Allergy/AdvReac Type Severity Reaction Status Date / Time No Known Allergies Allergy Verified 03/14/17 03:08 - Home Medications Home Medications: Ambulatory Orders Ammonium Lactate Lotion [Lac-Hydrin 12] 1 applic TP BID #1 oz 05/29/14 Fluocinonide 0.05% Oin [Lidex 0.05% Ointment -] 1 applic TP BID #1 applic Menthol/Camphor [Sarna Anti-Itch -] 1 applic TP TID #120 grams 05/29/14 Valsartan [Diovan] 160 mg PO DAILY #30 05/29/14 Insulin Aspart [Novolog Flexpen] 10 unit SQ QID 07/29/15 Sennosides [Senna] 2 tab PO HS 07/29/15 Acetaminophen [Tylenol .Regular Strength -] 650 mg PO Q4H PRN #0 tablet Clotrimazole [Gyne-Lotrimin -] 1 applic VG HS #3 tube 08/01/15 Diphenhydramine HCl [Benadryl Capsule -] 25 mg PO HS PRN #30 capsule 08/01/15 Docusate Sodium [Colace -] 100 mg PO BID #60 capsule 08/01/15 Metoclopramide HCl [Reglan -] 10 mg PO ACHS PRN #10 tablet 08/01/15 Nystatin Powder [Nystop Powder -] 1 applic TP BID 14 Days applic 08/01/15 Carvedilol [Coreg -] 3.125 mg PO BID #60 tablet 08/15/15 Atorvastatin Calcium 40 mg PO DAILY 10/14/16 Famotidine [Pepcid -] 20 mg PO BID #14 tablet 10/14/16 Furosemide [Lasix] 40 mg PO DAILY 10/14/16 Insulin Degludec [Tresiba Flextouch U-100] 40 unit SQ QID 10/14/16 Levothyroxine [Synthroid -] 112 mcg PO DAILY@0700 10/14/16 Pantoprazole Sodium [Protonix] 40 mg PO DAILY #30 tablet. 02/12/17 Family Disease History - Family Disease History Family Disease History: Diabetes: Daughter Review of Systems Unable to obtain ROS, reason: difficult to obtain Physical Exam Vital Sings: Vital Signs Temperature 97.8 F 03/15/17 05:24 Pulse Rate 92 H 03/15/17 05:24 Respiratory Rate 20 03/15/17 05:24 Blood Pressure 153/77 03/15/17 05:24 O2 Sat by Pulse Oximetry (%) 97 03/14/17 21:00 Constitutional: Yes: Calm, Obese Eyes: Yes: EOM Intact HENT: Yes: Normocephalic Neck: Yes: Trachea Midline Cardiovascular: Yes: Regular Rate and Rhythm, S1, S2 Respiratory: Yes: Diminished Gastrointestinal: Yes: Normal Bowel Sounds, Soft, Abdomen, Obese Edema: RLE: 1+ Integumentary: Yes: WNL Labs: CBC, BMP 03/15/17 05:45 03/15/17 05:45 TSH 25 HGB A1C 7.9 [id number] Imaging - Results Chest X-ray: Report Reviewed, Image Reviewed Cat Scan: Report Reviewed, Image Reviewed EKG: Report Reviewed Problem List - Problems (1) Lung nodule Code(s): R91.1 - SOLITARY PULMONARY NODULE (2) Dizziness Code(s): R42 - DIZZINESS AND GIDDINESS (3) CAD (coronary artery disease) Code(s): I25.10 - ATHSCL HEART DISEASE OF [place] CORONARY ARTERY W/O ANG PCTRS (4) Epigastric abdominal pain Code(s): R10.13 - EPIGASTRIC PAIN (5) Hypothyroid Code(s): E03.9 - HYPOTHYROIDISM, UNSPECIFIED (6) Diabetes mellitus, insulin dependent (IDDM), uncontrolled Code(s): E10.65 - TYPE 1 DIABETES MELLITUS WITH HYPERGLYCEMIA Qualifiers: Diabetes mellitus complication status: with unspecified complications Qualified Code(s): E10.8 - Type 1 diabetes mellitus with unspecified complications Assessment/Plan I HAVE COMPARED CT CHEST FROM 2007 AND MOST RECENT (NINE YEAR SPAN) THERE HAS BEEN ESSENTIALLY NO CHANGE (1.2 CM TO 1.3 CM) IN THIS PERIPHERAL BENIGN APPEARING NODULE WILL CONTINUE TO OBSERVE FOR NOW NO FURHTER DIAGNOSTIC WORK UP IS WARRANTED AT THIS TIME THANK YOU FOR THE CONSULT Vivek DIEGO MD
--- NOTE | 2017-03-15 14:06 | EKG ---
Test Reason : Blood Pressure : / mmHG Vent. Rate : 085 BPM Atrial Rate : 085 BPM P-R Int : 268 ms QRS Dur : 092 ms QT Int : 406 ms P-R-T Axes : 053 -23 058 degrees QTc Int : 483 ms SINUS RHYTHM WITH 1ST DEGREE A-V BLOCK WITH FREQUENT PREMATURE VENTRICULAR COMPLEXES OTHERWISE NORMAL ECG WHEN COMPARED WITH ECG OF 14-MAR-2017 13:18, MINIMAL CRITERIA FOR ANTERIOR INFARCT ARE NO LONGER PRESENT Confirmed by ANA MURRELL MD ([id number]) on 03/15/2017 2:05:54 PM Referred By: Deep QUILES Confirmed By:ANA MURRELL MD
--- NOTE | 2017-03-15 14:57 | CON.CARD ---
Consult Consult Specialty:: cardiology Referred by:: Anibal Reason for Consultation:: Confusion, hypoglycemia - History of Present Illness Chief Complaint: Mental status changes History of Present Illness: The patient is an 86-year-old morbidly obese female, we have a history of diabetes, hypertension, hyperlipidemia, CHF, COPD, skin cancer, now admitted with mental status changes and confusion. Found to be hypoglycemic. Given dextrose by EMS on the field. Symptoms improved. The patient is currently comfortable. Denies chest pains, shortness of breath, palpitations. 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 2011 dobut MIBI: no STs ; moderate reversible defect anterior and lateral faith confounded by large breast shadow; nl EF -> pt didn't follow as outpt as planned (was on DATP for a little while). Echo 09/13: nl LVEF, nl RV, nl valve fxn), HTN, Hyperlipdemia Pulmonary: Yes: COPD Gastrointestinal: Yes: Constipation Endocrine: Yes: Diabetes Mellitus (insulin-dependent for years -> uncontrolled) , Hypothyroidism Dermatology: Yes: Cellulitis (in past, with chronic and intermittent edema) - Alcohol/Substance Use Hx Alcohol Use: No History of Substance Use: reports: None - Smoking History Smoking history: Never smoked Have you smoked in the past 12 months: No Aproximately how many cigarettes per day: 0 If you are a former smoker, when did you quit?: 1984 - Social History Usual Living Arrangement: With Spouse (who is on HD) History of Recent Travel: No Home Medications - Allergies Allergies/Adverse Reactions: Allergies Allergy/AdvReac Type Severity Reaction Status Date / Time No Known Allergies Allergy Verified 03/14/17 03:08 - Home Medications Home Medications: Ambulatory Orders Ammonium Lactate Lotion [Lac-Hydrin 12] 1 applic TP BID #1 oz 05/29/14 Fluocinonide 0.05% Oin [Lidex 0.05% Ointment -] 1 applic TP BID #1 applic Menthol/Camphor [Sarna Anti-Itch -] 1 applic TP TID #120 grams 05/29/14 Valsartan [Diovan] 160 mg PO DAILY #30 05/29/14 Insulin Aspart [Novolog Flexpen] 10 unit SQ QID 07/29/15 Sennosides [Senna] 2 tab PO HS 07/29/15 Acetaminophen [Tylenol .Regular Strength -] 650 mg PO Q4H PRN #0 tablet Clotrimazole [Gyne-Lotrimin -] 1 applic VG HS #3 tube 08/01/15 Diphenhydramine HCl [Benadryl Capsule -] 25 mg PO HS PRN #30 capsule 08/01/15 Docusate Sodium [Colace -] 100 mg PO BID #60 capsule 08/01/15 Metoclopramide HCl [Reglan -] 10 mg PO ACHS PRN #10 tablet 08/01/15 Nystatin Powder [Nystop Powder -] 1 applic TP BID 14 Days applic 08/01/15 Carvedilol [Coreg -] 3.125 mg PO BID #60 tablet 08/15/15 Atorvastatin Calcium 40 mg PO DAILY 10/14/16 Famotidine [Pepcid -] 20 mg PO BID #14 tablet 10/14/16 Furosemide [Lasix] 40 mg PO DAILY 10/14/16 Insulin Degludec [Tresiba Flextouch U-100] 40 unit SQ QID 10/14/16 Levothyroxine [Synthroid -] 112 mcg PO DAILY@0700 10/14/16 Pantoprazole Sodium [Protonix] 40 mg PO DAILY #30 tablet. 02/12/17 Family Disease History - Family Disease History Family Disease History: Diabetes: Daughter Review of Systems - Review of Systems Constitutional: reports: No Symptoms Eyes: reports: No Symptoms HENT: reports: No Symptoms Neck: reports: No Symptoms Cardiovascular: reports: No Symptoms Respiratory: reports: No Symptoms Gastrointestinal: reports: No Symptoms Genitourinary: reports: No Symptoms Musculoskeletal: reports: No Symptoms Integumentary: reports: No Symptoms Neurological: reports: No Symptoms Endocrine: reports: No Symptoms Hematology/Lymphatic: reports: No Symptoms Psychiatric: reports: No Symptoms Vital Signs: Vital Signs Temperature 98.4 F 03/15/17 14:00 Pulse Rate 71 03/15/17 14:00 Respiratory Rate 20 03/15/17 14:00 Blood Pressure 125/67 03/15/17 14:00 O2 Sat by Pulse Oximetry (%) 97 03/15/17 10:00 Constitutional: Yes: No Distress, Calm, Obese Eyes: Yes: WNL, Conjunctiva Clear HENT: Yes: WNL, Atraumatic, Normocephalic Neck: Yes: WNL, Supple, Trachea Midline Respiratory: Yes: WNL, Regular, CTA Bilaterally Gastrointestinal: Yes: WNL, Normal Bowel Sounds, Soft Renal/: Yes: WNL Cardiovascular: Yes: WNL, Regular Rate and Rhythm, Bradycardia JVD: No Carotid Bruit: No PMI: Non-Displaced Heart Sounds: Yes: S1, S2 Murmur: Yes: Systolic Murmur, Grade 2 Musculoskeletal: Yes: WNL Extremities: Yes: WNL Edema: LLE: Trace, RLE: Trace Peripheral Pulses: 1+ Left Carotid, 1+ Right Carotid, 1+ Left Femoral, 1+ Right Femoral, 1+ Left Popliteal, 1+ Right Popliteal, 1+ Left Doralis Pedis, 1+ Right Dorsalis Pedis Integumentary: Yes: WNL Neurological: Yes: WNL - Other Data Labs, Other Data: CBC, BMP 03/15/17 05:45 03/15/17 05:45 Assessment/Plan 86-year-old morbidly obese female, with multiple medical problems, admitted with symptomatic hypoglycemia. The patient improved with dextrose. She is currently comfortable and symptom free. Mental status is at baseline. There is no evidence of ischemia nor acute coronary syndrome. No CHF. The patient is in sinus rhythm, markedly prolonged IA interval, with multiple PVCs on surface ECG. No acute ST-T changes. There is no need for further cardiac workup at this point. There is no need for cardiac monitoring. Please adjust diabetic regimen, as deemed necessary. Please do not hesitate to call us PRN.
--- NOTE | 2017-03-15 18:53 | PN ---
GI Progress Note Subjective: abdominal pain, nausea and vomiting resolved. The catscan revealed mild diverticulitis but patient complained more of epigastric than LLQ pain - Objective Vital Signs: Vital Signs Temperature 98.4 F 03/15/17 14:00 Pulse Rate 71 03/15/17 14:00 Respiratory Rate 20 03/15/17 14:00 Blood Pressure 125/67 03/15/17 14:00 O2 Sat by Pulse Oximetry (%) 97 03/15/17 10:00 Constitutional: Obese (--morbidly obese) Eyes: Yes: Conjunctiva Clear HENT: Yes: Normocephalic Neck: Yes: Trachea Midline Cardiovascular: Yes: Regular Rate and Rhythm Respiratory: Yes: CTA Bilaterally Gastrointestinal Inspection: Yes: Distention ...Auscultate: No: Normoactive Bowel Sounds ...Palpate: Yes: Soft. No: Guarding, Hepatomegaly, Mass, Splenomegaly, Tenderness ...Percussion: Yes: Tympanitic Labs: CBC, BMP 03/15/17 05:45 03/15/17 05:45 Problem List - Problems (1) Epigastric abdominal pain Assessment/Plan: R. continue Protonix and Reglan Miralax 34 grams bid Code(s): R10.13 - EPIGASTRIC PAIN
[2017-03-15] MEDS: PANTOPRAZOLE 20 MG TABLET (FP) PO SCH (21:47)
[2017-03-15] MEDS: POLYETHYLENE GLYCOL 3350 119 GM BTL PO SCH (21:56)
[2017-03-15] MEDS: ACETAMINOPHEN 325 MG TABLET (FP) PO PRN (21:59)
--- NOTE | 2017-03-16 00:38 | CONSULT ---
Consult Consult Specialty:: endocrine Referred by:: dr ravinder huitron Reason for Consultation:: diabetes mellitus - History of Present Illness Chief Complaint: low sugar confused History of Present Illness: 86-year-old female BIBA with a significant past medical history of HTN, HLD, IDDM, hypothyroidism, CHF, COPD, skin CA, MVP, fatty liver, who presents to the emergency department with altered mental status today. Patient is confused, and EMS was called by family. EMS checked her sugar en route and it was low at 64. EMS gave her D50 en route. Patient is a poor historian. 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 2011 dobut MIBI: no STs ; moderate reversible defect anterior and lateral faith confounded by large breast shadow; nl EF -> pt didn't follow as outpt as planned (was on DATP for a little while). Echo 09/13: nl LVEF, nl RV, nl valve fxn), HTN, Hyperlipdemia Pulmonary: Yes: COPD Gastrointestinal: Yes: Constipation Endocrine: Yes: Diabetes Mellitus (insulin-dependent for years -> uncontrolled) , Hypothyroidism Dermatology: Yes: Cellulitis (in past, with chronic and intermittent edema) - Alcohol/Substance Use Hx Alcohol Use: No History of Substance Use: reports: None - Smoking History Smoking history: Never smoked Have you smoked in the past 12 months: No Aproximately how many cigarettes per day: 0 If you are a former smoker, when did you quit?: 1984 - Social History Usual Living Arrangement: With Spouse (who is on HD) History of Recent Travel: No Home Medications - Allergies Allergies/Adverse Reactions: Allergies Allergy/AdvReac Type Severity Reaction Status Date / Time No Known Allergies Allergy Verified 03/14/17 03:08 - Home Medications Home Medications: Ambulatory Orders Ammonium Lactate Lotion [Lac-Hydrin 12] 1 applic TP BID #1 oz 05/29/14 Fluocinonide 0.05% Oin [Lidex 0.05% Ointment -] 1 applic TP BID #1 applic Menthol/Camphor [Sarna Anti-Itch -] 1 applic TP TID #120 grams 05/29/14 Valsartan [Diovan] 160 mg PO DAILY #30 05/29/14 Insulin Aspart [Novolog Flexpen] 10 unit SQ QID 07/29/15 Sennosides [Senna] 2 tab PO HS 07/29/15 Acetaminophen [Tylenol .Regular Strength -] 650 mg PO Q4H PRN #0 tablet Clotrimazole [Gyne-Lotrimin -] 1 applic VG HS #3 tube 08/01/15 Diphenhydramine HCl [Benadryl Capsule -] 25 mg PO HS PRN #30 capsule 08/01/15 Docusate Sodium [Colace -] 100 mg PO BID #60 capsule 08/01/15 Metoclopramide HCl [Reglan -] 10 mg PO ACHS PRN #10 tablet 08/01/15 Nystatin Powder [Nystop Powder -] 1 applic TP BID 14 Days applic 08/01/15 Carvedilol [Coreg -] 3.125 mg PO BID #60 tablet 08/15/15 Atorvastatin Calcium 40 mg PO DAILY 10/14/16 Famotidine [Pepcid -] 20 mg PO BID #14 tablet 10/14/16 Furosemide [Lasix] 40 mg PO DAILY 10/14/16 Insulin Degludec [Tresiba Flextouch U-100] 40 unit SQ QID 10/14/16 Levothyroxine [Synthroid -] 112 mcg PO DAILY@0700 10/14/16 Pantoprazole Sodium [Protonix] 40 mg PO DAILY #30 tablet. 02/12/17 Family Disease History - Family Disease History Family Disease History: Diabetes: Daughter Review of Systems - Review of Systems Constitutional: reports: Lethargy, Weakness Eyes: reports: No Symptoms HENT: reports: Difficult Swallowing, Ear Pain, Nasal Congestion, Throat Pain Neck: reports: Decreased ROM Cardiovascular: reports: Shortness of Breath Respiratory: reports: Exercise Intolerance, SOB on Exertion Gastrointestinal: reports: Bloating, Constipation Genitourinary: reports: No Symptoms Breasts: reports: No Symptoms Reported Musculoskeletal: reports: Extremity Pain, Joint Swelling, Muscle Pain, Muscle Cramps Integumentary: reports: No Symptoms Neurological: reports: Dizziness, Numbness, Unsteady Gait, Weakness Endocrine: reports: Intolerance to Cold, Unexplained Weight Loss Hematology/Lymphatic: reports: No Symptoms Physical Exam Vital Signs: Vital Signs Temperature 98.8 F 03/15/17 17:00 Pulse Rate 103 H 03/15/17 17:00 Respiratory Rate 18 03/15/17 17:00 Blood Pressure 146/80 03/15/17 17:00 O2 Sat by Pulse Oximetry (%) 98 03/15/17 21:00 Constitutional: Yes: Anxious Eyes: Yes: EOM Intact HENT: Yes: Normocephalic Neck: Yes: Trachea Midline Cardiovascular: Yes: Regular Rate and Rhythm Respiratory: Yes: CTA Bilaterally Gastrointestinal: Yes: Normal Bowel Sounds, Abdomen, Obese ...Rectal Exam: Yes: Deferred Renal/: Yes: WNL Breast(s): Yes: WNL Musculoskeletal: Yes: Joint Swelling, Muscle Pain, Muscle Weakness Extremities: Yes: Delayed Capillary Refill Neurological: Yes: Alert, Oriented Labs: CBC, BMP 03/15/17 05:45 03/15/17 05:45 Problem List - Problems (1) Type 2 diabetes mellitus with hyperosmolarity without nonketotic hyperglycemic-hyperosmolar coma ([facility]) Code(s): E11.00 - TYPE 2 DIAB W HYPROSM W/O NONKET HYPRGLY-HYPROS COMA ([facility]) (2) Abdominal pain Code(s): R10.9 - UNSPECIFIED ABDOMINAL PAIN (3) Dizziness Code(s): R42 - DIZZINESS AND GIDDINESS (4) UTI (urinary tract infection) Code(s): N39.0 - URINARY TRACT INFECTION, SITE NOT SPECIFIED Qualifiers: Urinary tract infection type: site unspecified Hematuria presence: without hematuria Qualified Code(s): N39.0 - Urinary tract infection, site not specified (5) Acute renal failure Code(s): N17.9 - ACUTE KIDNEY FAILURE, UNSPECIFIED Qualifiers: Acute renal failure type: unspecified Qualified Code(s): N17.9 - Acute kidney failure, unspecified (6) Bakers cyst Code(s): M71.20 - SYNOVIAL CYST OF [place] [PETER], UNSPECIFIED KNEE (7) Breast pain, left Code(s): N64.4 - MASTODYNIA (8) CAD (coronary artery disease) Code(s): I25.10 - ATHSCL HEART DISEASE OF [place] CORONARY ARTERY W/O ANG PCTRS Assessment/Plan Current Active Problems diabetes mellitus hypoglycemia/diabetic neuropathy Abnormal Lab Results 03/15/17 03/15/17 03/15/17 05:45 05:45 06:45 Anion Gap 6 L Random Glucose 192 H Hemoglobin A1c % 7.9 H D Calcium 8.2 L Total Bilirubin 1.2 H D Total Protein 6.3 L Albumin 2.7 L Cholesterol 218 H Total LDL Cholesterol 152 H HDL Cholesterol 39 L TSH 25.40 H D Laboratory Results - last 24 hr 03/15/17 03/15/17 03/15/17 05:23 05:45 05:45 WBC 9.8 RBC 4.89 Hgb 14.8 Hct 44.3 MCV 90.7 MCH 30.3 MCHC 33.3 RDW 14.5 Plt Count 186 MPV 10.1 Sodium 141 Potassium 4.2 Chloride 105 Carbon Dioxide 30 Anion Gap 6 L BUN 9 Creatinine 0.8 Creat Clearance w eGFR > 60 POC Glucometer 174 Random Glucose 192 H Hemoglobin A1c % Calcium 8.2 L Phosphorus 2.9 D Magnesium 2.3 Total Bilirubin 1.2 H D AST 18 ALT 17 Alkaline Phosphatase 102 Total Protein 6.3 L Albumin 2.7 L Triglycerides 125 D Cholesterol 218 H Total LDL Cholesterol 152 H HDL Cholesterol 39 L Lipase TSH Free T4 03/15/17 03/15/17 03/15/17 05:45 06:45 16:40 WBC RBC Hgb Hct MCV MCH MCHC RDW Plt Count MPV Sodium Potassium Chloride Carbon Dioxide Anion Gap BUN Creatinine Creat Clearance w eGFR POC Glucometer 170 Random Glucose Hemoglobin A1c % 7.9 H D Calcium Phosphorus Magnesium Total Bilirubin AST ALT Alkaline Phosphatase Total Protein Albumin Triglycerides Cholesterol Total LDL Cholesterol HDL Cholesterol Lipase 120 TSH 25.40 H D Free T4 0.94 D 03/15/17 03/15/17 19:16 21:49 WBC RBC Hgb Hct MCV MCH MCHC RDW Plt Count MPV Sodium Potassium Chloride Carbon Dioxide Anion Gap BUN Creatinine Creat Clearance w eGFR POC Glucometer 177 209 Random Glucose Hemoglobin A1c % Calcium Phosphorus Magnesium Total Bilirubin AST ALT Alkaline Phosphatase Total Protein Albumin Triglycerides Cholesterol Total LDL Cholesterol HDL Cholesterol Lipase TSH Free T4 Abdominal pain (Acute) Dizziness (Acute) Lung nodule (Acute) UTI (urinary tract infection) (Acute) hypothyroidism poor compliance with medication plan: levemir 15 units am bgm qid novolog insulin dose adjustment synthroid 150mg q am daily
[2017-03-16] MEDS: INSULIN SLIDING SCALE (NOVOLOG) 1 VIAL SQ SCH ×3 (06:03→16:51)
[2017-03-16] MEDS: METOCLOPRAMIDE HCL 10 MG TABLET (FP) PO SCH ×3 (06:07→16:52)
[2017-03-16] MEDS: INSULIN DETEMIR 100 UNITS/ML MDV SQ SCH (06:10)
--- NOTE | 2017-03-16 08:47 | DS ---
Physical Examination Vital Signs: Vital Signs Temperature 98.3 F 03/16/17 06:00 Pulse Rate 68 03/16/17 06:00 Respiratory Rate 20 03/16/17 06:00 Blood Pressure 149/87 03/16/17 06:00 O2 Sat by Pulse Oximetry (%) 98 03/15/17 21:00 Findings/Remarks: feels better Cardiovascular: Yes: Regular Rate and Rhythm Respiratory: Yes: Regular, CTA Bilaterally Gastrointestinal: Yes: Normal Bowel Sounds, Soft Labs: CBC, BMP 03/15/17 05:45 03/15/17 05:45 Discharge Summary Reason For Visit: UTI,POORLY CONTRILLED DIABETES MELLITUS Current Active Problems Abdominal pain (Acute) Dizziness (Acute) Lung nodule (Acute) Type 2 diabetes mellitus with hyperosmolarity without nonketotic hyperglycemic- hyperosmolar coma ([facility]) (Acute) UTI (urinary tract infection) (Acute) Hospital Course: The patient is a 86-year-old female BIBA with a significant past medical history of HTN, HLD, IDDM, hypothyroidism, CHF, COPD, skin CA, MVP, fatty liver , who presents to the emergency department with altered mental status today. Patient is confused, and EMS was called by family. EMS checked her sugar en route and it was low at 64. EMS gave her D50 en route. Patient is a poor historian. while in ER started complaining of nausea also vomited,complaining if vague generalized abdominal pain and reflux.patient was about to go home on oral abx for uti but started having GI symptoms currently getting CT scan. 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 2011 dobut MIBI: no STs ; moderate reversible defect anterior and lateral faith confounded by large breast shadow; nl EF -> pt didn't follow as outpt as planned (was on DATP for a little while). Echo 09/13: nl LVEF, nl RV, nl valve fxn), HTN, Hyperlipdemia Pulmonary: Yes: COPD Gastrointestinal: Yes: Constipation Heme/Onc: Yes: Cancer (thyroid) Endocrine: Yes: Diabetes Mellitus (insulin-dependent for years -> uncontrolled) , Hypothyroidism Dermatology: Yes: Cellulitis (in past, with chronic and intermittent edema) - Problems (1) Dizziness Assessment/Plan: neurochecks ct head done reprot pending neuro consult carotid doppler meclizine prn Code(s): R42 - DIZZINESS AND GIDDINESS (2) Abdominal pain Assessment/Plan: ct scan of abdomen and pelvis with oral constrast gi eval iv reglan and iv protonix complaining of reflux: r/o peptic ulcer disease iv ppi Code(s): R10.9 - UNSPECIFIED ABDOMINAL PAIN (3) Pulmonary nodule Assessment/Plan: chest ct pulm consult Code(s): R91.1 - SOLITARY PULMONARY NODULE (4) Diabetes mellitus with peripheral vascular disease Assessment/Plan: bgm sliding scale hgbac insulin Code(s): E11.51 - TYPE 2 DIABETES W DIABETIC PERIPHERAL ANGIOPATH W/O GANGRENE (5) UTI (urinary tract infection) Assessment/Plan: iv abx--po awaiting culture Code(s): N39.0 - URINARY TRACT INFECTION, SITE NOT SPECIFIED Qualifiers: Urinary tract infection type: site unspecified Hematuria presence: without hematuria Qualified Code(s): N39.0 - Urinary tract infection, site not specified (6) Hypothyroid Assessment/Plan: tsh synthroid Code(s): E03.9 - HYPOTHYROIDISM, UNSPECIFIED (7) CAD (coronary artery disease) Assessment/Plan: coreg and lipitor Code(s): I25.10 - ATHSCL HEART DISEASE OF [place] CORONARY ARTERY W/O ANG PCTRS Condition: Stable - Instructions Diet, Activity, Other Instructions: Activity as tolerated. Stay hydrated. Blood tests and a urine test today showed evidence of a urine infection. Take Macrobid as prescribed as antibiotic. Closely monitor your sugar levels at home. Continue your medications as previously prescribed by your physician. You should follow up with Dr. Back as soon as possible regarding today's emergency department visit. Return to the emergency department for any new or concerning symptoms, particularly persistent or worsening lightheadedness, fevers or chills, difficulty urinating, abdominal pain or vomiting, persistently elevated or low sugar levels. Referrals: Tyrell Back MD [Primary Care Provider] - 1 Week - Home Medications Comprehensive Discharge Medication List: Ambulatory Orders Ammonium Lactate Lotion [Lac-Hydrin 12] 1 applic TP BID #1 oz 05/29/14 Fluocinonide 0.05% Oin [Lidex 0.05% Ointment -] 1 applic TP BID #1 applic Menthol/Camphor [Sarna Anti-Itch -] 1 applic TP TID #120 grams 05/29/14 Sennosides [Senna] 2 tab PO HS 07/29/15 Acetaminophen [Tylenol .Regular Strength -] 650 mg PO Q4H PRN #0 tablet Clotrimazole [Gyne-Lotrimin -] 1 applic VG HS #3 tube 08/01/15 Docusate Sodium [Colace -] 100 mg PO BID #60 capsule 08/01/15 Nystatin Powder [Nystop Powder -] 1 applic TP BID 14 Days applic 08/01/15 Carvedilol [Coreg -] 3.125 mg PO BID #60 tablet 08/15/15 Atorvastatin Calcium 40 mg PO DAILY 10/14/16 Pantoprazole Sodium [Protonix] 40 mg PO DAILY #30 tablet. 02/12/17 Acetaminophen [Tylenol .Regular Strength -] 650 mg PO Q6H PRN tablet 03/16/17 Furosemide [Lasix -] 20 mg PO DAILY #30 tablet 03/16/17 Insulin (Levemir) [Levemir Vial] 15 units SQ AM ml 03/16/17 Insulin Sliding Scale [Novolog Vial Sliding Scale -] 1 vial SQ ACHS units 03/16 Levofloxacin [Levaquin -] 250 mg PO DAILY #30 tablet 03/16/17 Levothyroxine [Synthroid -] 150 mcg PO DAILY #30 tablet 03/16/17 Metoclopramide HCl [Reglan -] 5 mg PO TIDAC #90 tablet 03/16/17 Polyethylene Glycol 3350 [Miralax 119 gm Btl -] 34 gm PO DAILY bottle 03/16/17 Valsartan [Diovan] 80 mg PO DAILY #30 tablet 03/16/17
[2017-03-16] MEDS: PANTOPRAZOLE 20 MG TABLET (FP) PO SCH (09:06)
[2017-03-16] MEDS: CEFTRIAXONE 1 G/50 ML PREMIX 50 ML IVPB SCH (09:06)
[2017-03-16] MEDS: CARVEDILOL 3.125 MG TABLET (FP) PO SCH (09:06)
[2017-03-16] MEDS: POLYETHYLENE GLYCOL 3350 119 GM BTL PO SCH (09:07)
[2017-03-16] MEDS: HEPARIN NA (PORCINE) 5,000 UNITS/ML 1ML VIAL SQ SCH (09:07)
[2017-03-16] MEDS ORDERED: LEVOFLOXACIN 250 MG TABLET (FP) PO SCH (09:30)
[2017-03-16] MEDS ORDERED: VALSARTAN 80 MG TABLET (UD) PO SCH (10:00)
[2017-03-16] MEDS ORDERED: FUROSEMIDE 20 MG TABLET (FP) PO SCH (10:00)
[2017-03-16] MEDS: NITROFURANTOIN MACROCRYSTAL 50 MG CAPSULE (FP) PO SCH (11:15)
[2017-03-16 19:12] VITALS: BP 136/67; PULSE 72; TEMP 98.8
[2017-03-16] MEDS: ACETAMINOPHEN 325 MG TABLET (FP) PO PRN (19:22)
== END 2017-03-16 21:00 | disposition home or self-care (01) | DRG 637 ==
LOC: JER 03:06 → JERBED 12:20 → J4W 20:56
PROVIDERS: ADMIT Family Medicine; ATTEND Family Medicine
DX: E11.649 Type 2 diabetes mellitus with hypoglycemia without coma (principal); G93.41 Metabolic encephalopathy; N39.0 Urinary tract infection, site not specified; Z68.41 Body mass index [BMI] 40.0-44.9, adult; I11.0 Hypertensive heart disease with heart failure; N17.9 Acute kidney failure, unspecified; E78.5 Hyperlipidemia, unspecified; E03.9 Hypothyroidism, unspecified; I34.1 Nonrheumatic mitral (valve) prolapse; J44.9 Chronic obstructive pulmonary disease, unspecified; K76.0 Fatty (change of) liver, not elsewhere classified; R91.1 Solitary pulmonary nodule; R10.13 Epigastric pain; E66.01 Morbid (severe) obesity due to excess calories; M71.20 Synovial cyst of popliteal space [Baker], unspecified knee; R42 Dizziness and giddiness; K59.09 Other constipation; N64.4 Mastodynia; F03.90 Unspecified dementia, unspecified severity, without behavioral disturbance, psychotic disturbance, mood disturbance, and anxiety; I49.8 Other specified cardiac arrhythmias; E11.65 Type 2 diabetes mellitus with hyperglycemia; E11.51 Type 2 diabetes mellitus with diabetic peripheral angiopathy without gangrene; I25.10 Atherosclerotic heart disease of native coronary artery without angina pectoris; Z79.4 Long term (current) use of insulin; Z91.14 Patient's other noncompliance with medication regimen; Z85.828 Personal history of other malignant neoplasm of skin
CPT/HCPCS: 36415; 70450-TC; 70551-TC; 71010-TC; 71250-TC; 74176-TC; 80053; 80061; 81003; 81015; 82550; 83036; 83690; 83721; 83735; 84100; 84439; 84443; 84484; 85025; 85027; 87086; 93005; 93010; 97116-GP; 97161-GP; 99284-25; J1644

== ENCOUNTER 2017-04-19 15:43 | Emergency (ER) | payer OTHER ==
[2017-04-19 15:57] VITALS: BMI 47.2
--- NOTE | 2017-04-19 16:08 | PDOC ---
History of Present Illness - General Chief Complaint: Blood Sugar Problem Stated Complaint: FALL Time Seen by Provider: 04/19/17 15:59 - History of Present Illness Initial Comments: 04/19/17 16:08 Patient is an 86 y.o. female with a PMH of IDDM and of HTN, HLD, hypothyroidism , CHF, COPD and Mitral Valve prolapse who presents to the ED today following an unwitnessed fall at home. Patient's son found her on the floor on her back laying against a dresser. Patient denies any pre-fall chest pain, dyspnea, lightheadedness. As per EMS, patient is noted to have a BS of 35, patient's son notes patient rarely has such episodes and is usually hyperglycemic. Patient given D10 en route to the hospital. Past History - Past Medical History Allergies/Adverse Reactions: Allergies Allergy/AdvReac Type Severity Reaction Status Date / Time No Known Allergies Allergy Verified 04/19/17 15:57 Home Medications: Ambulatory Orders Acetaminophen [Tylenol .Regular Strength -] 650 mg PO Q4H PRN #0 tablet Nystatin Powder [Nystop Powder -] 1 applic TP BID 14 Days applic 08/01/15 Furosemide [Lasix -] 20 mg PO DAILY #30 tablet 03/16/17 Insulin (Levemir) [Levemir Vial] 15 units SQ AM ml 03/16/17 Insulin Sliding Scale [Novolog Vial Sliding Scale -] 1 vial SQ ACHS units 03/16 Levothyroxine [Synthroid -] 150 mcg PO DAILY #30 tablet 03/16/17 Polyethylene Glycol 3350 [Miralax 119 gm Btl -] 34 gm PO DAILY bottle 03/16/17 Valsartan [Diovan] 80 mg PO DAILY #30 tablet 03/16/17 Anemia: No Asthma: Yes Cancer: Yes (SKIN) Cardiac Disorders: Yes (MITRAL VALVE PROLAPSE) CVA: No COPD: Yes CHF: Yes Dementia: No Diabetes: Yes GI Disorders: Yes Disorders: No HTN: Yes Hypercholesterolemia: Yes Liver Disease: Yes (FATTY LIVER) Seizures: No Thyroid Disease: Yes - Surgical History Abdominal Surgery: Yes Appendectomy: No Cardiac Surgery: No Cholecystectomy: Yes Lung Surgery: No Neurologic Surgery: No Orthopedic Surgery: No - Suicide/Smoking/Psychosocial Hx Smoking Status: Yes Smoking History: Never smoked Have you smoked in the past 12 months: No Number of Cigarettes Smoked Daily: 0 If you are a former smoker, when did you quit?: 1985 Cigars Per Day: 0 Hx Alcohol Use: No Drug/Substance Use Hx: No Substance Use Type: None Hx Substance Use Treatment: Yes Review of Systems - Review of Systems Constitutional: No: Chills, Fever HEENTM: No: Blurred Vision, Double Vision Respiratory: No: Shortness of Breath Cardiac (ROS): No: Chest Pain ABD/GI: No: Constipated, Diarrhea, Nausea, Vomiting : No: Burning, Dysuria Neurological: Yes: Headache *Physical Exam - Vital Signs Last Vital Signs Temp Pulse Resp BP Pulse Ox 98 F 90 18 132/71 99 04/19/17 15:46 04/19/17 15:46 04/19/17 15:46 04/19/17 15:46 04/19/17 15:46 - Physical Exam General Appearance: Yes: Nourished, Obese HEENT: positive: EOMI, PREETI, Other ((-) Nichols sign, non-bulging, non- erythematous TM) Neck: positive: Trachea midline, Supple Respiratory/Chest: positive: Lungs Clear Cardiovascular: positive: S1, S2 Gastrointestinal/Abdominal: positive: Normal Bowel Sounds, Soft Extremity: positive: Normal Capillary Refill, Normal Inspection Integumentary: positive: Normal Color, Dry, Warm Neurologic: positive: Alert ED Treatment Course - LABORATORY CBC & Chemistry Diagram: 04/19/17 18:32 04/19/17 18:32 Medical Decision Making - Medical Decision Making 04/19/17 18:59 Patient is an 86 y.o. female who presents following a fall @ home as well as hypoglycemia. At presentation, patient's hypogylcemia resolved. CT Head/C- spine negative, however patient c/o of acute onset of non-bloody emesis. Will give Zofran and reasess - low clinical suspicion for acute abdomen (belly soft, normoactive BS, non-toxic appearing, no leukocytosis on CBC). Repeat fingerstick pending. Patient to be signed out to Dr. Faust (Resident) and Dr. Ugalde (Attending). *DC/Admit/Observation/Transfer Diagnosis at time of Disposition: Hypoglycemia Fall Qualifiers: Encounter type: initial encounter Qualified Code(s): W19.XXXA - Unspecified fall, initial encounter Vomiting Qualifiers: Vomiting type: unspecified Vomiting Intractability: non-intractable Nausea presence: with nausea Qualified Code(s): R11.2 - Nausea with vomiting, unspecified Headache Qualifiers: Headache type: unspecified Headache chronicity pattern: acute headache Intractability: not intractable Qualified Code(s): R51 - Headache - Discharge Dispostion Disposition: HOME Condition at time of disposition: Stable - Referrals Referrals: Tyrell Back MD [Primary Care Provider] - - Patient Instructions Additional Instructions: Kathleen was seen in the ER for a fall at home, low blood sugar, headache, and nausea/vomiting. We did lab work, an EKG, and CT scans of the head and neck, and there were no concerning findings. We were able to help her nausea and vomiting with a dose of Zofran and a dose of Reglan. She is safe to go home and follow up very closely with her regular doctor. Please call your regular doctor tomorrow and make an appointment to be seen tomorrow or Monday. Return to the ER for any new or worsening symptoms. - Post Discharge Activity
--- NOTE | 2017-04-19 16:13 | PDOC ---
Attending Attestation - Resident Resident Name: Maddy Gonzalez - ED Attending Attestation I have performed the following: I have examined & evaluated the patient, The case was reviewed & discussed with the resident, I agree w/resident's findings & plan, Exceptions are as noted
[2017-04-19] MEDS ORDERED: ONDANSETRON 4 MG/2 ML VIAL IVPUSH ONE (18:50)
[2017-04-19 18:53] LABS: BASO % 0.7 % (0-2.0); EOS % 0.7 % (0-4.5); HEMATOCRIT 46.8 % (32.4-45.2); HEMOGLOBIN 15.2 GM/dL (10.7-15.3); LYMPH % 18.9 % (8-40); MCH 29.4 pg (25.7-33.7); MCHC 32.4 g/dl (32.0-36.0); MEAN CELL VOLUME 90.6 fl (80-96); MEAN PLT VOLUME 8.9 fl (7.5-11.1); NEUT % 71.7 % (42.8-82.8); PLATELET COUNT 206 K/MM3 (134-434); RBC 5.17 M/mm3 (3.60-5.2); RDW 14.3 % (11.6-15.6); WHITE BLOOD COUNT 11.4 K/mm3 (4.0-10.0)
[2017-04-19] MEDS ORDERED: ONDANSETRON 4 MG/2 ML VIAL ONE (18:53)
[2017-04-19 19:17] LABS: INR 1.12 (0.82-1.09); PROTHROMBIN TIME (PATIENT) 12.7 SEC (9.98-11.88)
[2017-04-19] MEDS ORDERED: SODIUM CHLORIDE 0.9% 1000 ML INFUS.BAG IV ONE (19:17)
--- NOTE | 2017-04-19 19:49 | PDOC ---
*Physical Exam - Vital Signs Last Vital Signs Temp Pulse Resp BP Pulse Ox 98 F 90 18 132/71 99 04/19/17 15:46 04/19/17 15:46 04/19/17 15:46 04/19/17 15:46 04/19/17 15:46 04/19/17 19:46 Care signed out to me by Dr. Gonzalez at the beginning of my shift. 86 YOF with IDDM, COPD, CHF, HLD, MVP who presents s/p unwitnessed fall last night, found down this afternoon. CTs unremarkable for acute pathology. Awaiting lab results , CBG, road test for PO intake and ambulation. - Physical Exam General Appearance: Yes: Obese, Other (Actively vomiting dark brown liquid without coffee grounds, still able to speak, Korean speaking only, accompanied by supportive daughter) ED Treatment Course - LABORATORY CBC & Chemistry Diagram: 04/19/17 18:32 04/19/17 18:32 - ADDITIONAL ORDERS Additional order review: Laboratory Results 04/19/17 18:32 PT with INR 12.70 H INR 1.12 04/19/17 18:32 RBC 5.17 MCV 90.6 MCHC 32.4 RDW 14.3 MPV 8.9 D Neutrophils % 71.7 Lymphocytes % 18.9 Monocytes % 8.0 Eosinophils % 0.7 Basophils % 0.7 - Medications Given in the ED: ED Medications Discontinued Medications Generic Name Dose Route Start Last Admin Trade Name Freq PRN Reason Stop Dose Admin Ondansetron HCl 4 mg 04/19/17 18:50 04/19/17 18:55 Zofran Injection IVPUSH 04/19/17 18:51 4 mg ONCE ONE Administration Medical Decision Making - Medical Decision Making 04/19/17 20:07 Patient continues to vomit, notes mild but persistent pain. Ordered is Ofirmev and Reglan (Patient's QTc is noted to be 483 ms). 04/19/17 22:36 Patient feeling much better, no longer vomiting for the past hour, sleeping comfortably. Carl crackers and applesauce given for PO challenge. *DC/Admit/Observation/Transfer Diagnosis at time of Disposition: Hypoglycemia Fall Qualifiers: Encounter type: initial encounter Qualified Code(s): W19.XXXA - Unspecified fall, initial encounter Vomiting Qualifiers: Vomiting type: unspecified Vomiting Intractability: non-intractable Nausea presence: with nausea Qualified Code(s): R11.2 - Nausea with vomiting, unspecified Headache Qualifiers: Headache type: unspecified Headache chronicity pattern: acute headache Intractability: not intractable Qualified Code(s): R51 - Headache - Discharge Dispostion Disposition: HOME Condition at time of disposition: Stable Admit: No - Referrals Referrals: Tyrell Back MD [Primary Care Provider] - - Patient Instructions Additional Instructions: Kathleen was seen in the ER for a fall at home, low blood sugar, headache, and nausea/vomiting. We did lab work, an EKG, and CT scans of the head and neck, and there were no concerning findings. We were able to help her nausea and vomiting with a dose of Zofran and a dose of Reglan. She is safe to go home and follow up very closely with her regular doctor. Please call your regular doctor tomorrow and make an appointment to be seen tomorrow or Monday. Return to the ER for any new or worsening symptoms. - Post Discharge Activity
[2017-04-19 20:01] LABS: ALBUMIN 3.1 g/dl (3.4-5.0); CALCIUM 9.1 mg/dL (8.5-10.1); CREATININE 0.9 mg/dL (0.55-1.02); TOT PROT 7.1 g/dl (6.4-8.2)
[2017-04-19] MEDS ORDERED: ACETAMINOPHEN 1000 MG/100 ML VIAL (NON FORMULARY) IVPB ONE (20:03)
[2017-04-19] MEDS ORDERED: METOCLOPRAMIDE HCL INJECTION 10 MG/2 ML VIAL IVPUSH ONE (20:06)
[2017-04-19 20:09] LABS: URINE APPEARANCE CLEAR; URINE BILIRUBIN NEGATIVE (NEGATIVE); URINE BLOOD NEGATIVE (NEGATIVE); URINE COLOR YELLOW; URINE GLUCOSE (UA) NEGATIVE (NEGATIVE); URINE KETONE NEGATIVE (NEGATIVE); URINE LEUK ESTERASE NEGATIVE (NEGATIVE); URINE NITRITE NEGATIVE (NEGATIVE); URINE PROTEIN NEGATIVE (NEGATIVE); URINE UROBILINOGEN NEGATIVE mg/dL (0.2-1.0)
[2017-04-19] MEDS ORDERED: METOCLOPRAMIDE HCL INJECTION 10 MG/2 ML VIAL ONE (20:11)
[2017-04-19] MEDS ORDERED: ACETAMINOPHEN INJECTION 100 ML IVPB ONE (20:11)
[2017-04-19 20:22] LABS: ALK PHOS 94 U/L (45-117); ANION GAP 5 (8-16); BILIRUBIN,TOTAL 0.9 mg/dL (0.2-1.0); BLOOD UREA NITROGEN 10 mg/dL (7-18); CHLORIDE 103 mmol/L (98-107); CO2 34 mmol/L (21-32); GLUCOSE,RANDOM 100 mg/dL (74-106); MAGNESIUM 2.4 mg/dL (1.8-2.4); POTASSIUM 4.7 mmol/L (3.5-5.1); SGOT/AST 27 U/L (15-37); SGPT/ALT 16 U/L (12-78); SODIUM 142 mmol/L (136-145)
[2017-04-20 02:32] VITALS: BP 142/75; PULSE 96; TEMP 98
== END 2017-04-20 02:36 | disposition home or self-care (01) ==
LOC: SUPCPDRO 15:43 → JER 15:43
PROC: 3E033GC Introduction of Other Therapeutic Substance into Peripheral Vein, Percutaneous Approach (ICD-10-PCS; principal; 2017-04-19)
PROC: 3E033GC Introduction of Other Therapeutic Substance into Peripheral Vein, Percutaneous Approach (ICD-10-PCS; 2017-04-19)
PROC: 3E033NZ Introduction of Analgesics, Hypnotics, Sedatives into Peripheral Vein, Percutaneous Approach (ICD-10-PCS; 2017-04-19)
DX: E11.649 Type 2 diabetes mellitus with hypoglycemia without coma (principal); Z79.4 Long term (current) use of insulin; I10 Essential (primary) hypertension; I50.9 Heart failure, unspecified; E78.5 Hyperlipidemia, unspecified; E78.00 Pure hypercholesterolemia, unspecified; E03.9 Hypothyroidism, unspecified; J44.9 Chronic obstructive pulmonary disease, unspecified; I34.1 Nonrheumatic mitral (valve) prolapse; W18.39XA Other fall on same level, initial encounter; Y93.89 Activity, other specified; Y92.032 Bedroom in apartment as the place of occurrence of the external cause
CPT/HCPCS: 36415; 70450-TC; 72125-TC; 80053; 81003; 83735; 85025; 85610; 86850; 86900; 86901; 99284-25

== ENCOUNTER 2017-06-08 11:22 | Inpatient (IN) | payer OTHER ==
[2017-06-08] MEDS ORDERED: ACETAMINOPHEN 1000 MG/100 ML VIAL (NON FORMULARY) IVPB ONE (11:49)
--- NOTE | 2017-06-08 12:16 | PDOC ---
History of Present Illness - General Chief Complaint: Altered Mental Status Stated Complaint: AMS Time Seen by Provider: 06/08/17 11:38 - History of Present Illness Initial Comments: 06/08/17 12:11 The patient is an 87 year old female with a history of IDDM, HTN, HLD, CHF, COPD who presents for evaluation of nausea, vomiting, cough and fevers. The patient is accompanied by family who assist in providing the history. They report a 4 day history of nausea with multiple episodes of non-bilious, non- bloody vomiting with an associated sore throat and non-productive cough. They noted fevers and generalized weakness throughout this time period as well prompting their presentation to the ED for evaluation. The deny any current sick contacts at this time. The patient is endorsing some mild epigastric abdominal pain, but otherwise denies SOB, chest pain, or changes with urination or bowel movements. Past History - Past Medical History Allergies/Adverse Reactions: Allergies Allergy/AdvReac Type Severity Reaction Status Date / Time No Known Allergies Allergy Verified 04/19/17 15:57 Home Medications: Ambulatory Orders Acetaminophen [Tylenol .Regular Strength -] 650 mg PO Q4H PRN #0 tablet Insulin (Levemir) [Levemir Vial] 15 units SQ AM ml 03/16/17 Insulin Sliding Scale [Novolog Vial Sliding Scale -] 1 vial SQ ACHS units 03/16 Polyethylene Glycol 3350 [Miralax 119 gm Btl -] 34 gm PO DAILY bottle 03/16/17 Atorvastatin Ca [Lipitor] 40 mg PO HS 06/08/17 Famotidine 20 mg PO BID 06/08/17 Furosemide [Lasix -] 40 mg PO DAILY 06/08/17 Levothyroxine [Synthroid -] 112 mcg PO DAILY 06/08/17 Metoclopramide HCl 5 mg PO DAILY 06/08/17 Ranitidine [Zantac -] 150 mg PO BID 06/08/17 Valsartan [Diovan] 160 mg PO DAILY 06/08/17 Anemia: No Asthma: Yes Cancer: Yes (SKIN) Cardiac Disorders: Yes (MITRAL VALVE PROLAPSE) CVA: No COPD: Yes CHF: Yes Dementia: No Diabetes: Yes GI Disorders: Yes Disorders: No HTN: Yes Hypercholesterolemia: Yes Liver Disease: Yes (FATTY LIVER) Seizures: No Thyroid Disease: Yes - Surgical History Abdominal Surgery: Yes Appendectomy: No Cardiac Surgery: No Cholecystectomy: Yes Lung Surgery: No Neurologic Surgery: No Orthopedic Surgery: No - Suicide/Smoking/Psychosocial Hx Smoking Status: Yes Smoking History: Never smoked Have you smoked in the past 12 months: No Number of Cigarettes Smoked Daily: 0 If you are a former smoker, when did you quit?: 1985 Cigars Per Day: 0 Hx Alcohol Use: No Drug/Substance Use Hx: No Substance Use Type: None Hx Substance Use Treatment: Yes Review of Systems - Review of Systems Comments:: 06/08/17 12:14 Constitutional: Fevers, Fatigue. No malaise HEENT: Sore Throat. No Rhinorrhea, nasal congestion, visual changes Cardiovascular: No chest pain, syncope, palpitations, lightheadedness Respiratory: Cough. No SOB, Hemoptysis, Gastrointestinal: Nausea, Vomiting. No Constipation, Diarrhea, Melena Genitourinary: No Dysuria, Frequency, Urgency, Hesitancy, Hematuria, Flank pain Musculoskeletal: No Myalgia, arthralgia Skin: No rashes, itching, bruising, pallor Neurologic: No Headache, Dizziness, Numbness, Weakness, or Tingling Psychiatric: No Hallucinations. No SI or HI *Physical Exam - Vital Signs Last Vital Signs Temp Pulse Resp BP Pulse Ox 100.3 F H 110 H 20 103/70 94 L 06/08/17 11:43 06/08/17 11:43 06/08/17 11:43 06/08/17 11:43 06/08/17 11:43 - Physical Exam Comments: 06/08/17 12:16 General Appearance: Nourished. Obese. In Mild Apparent Distress HEENT: EOMI, PREETI. No Pharyngeal Erythema, Tonsillar Exudate, Tonsillar Erythema Neck: No Cervical Lymphadenopathy Respiratory/Chest: Lungs Clear, Normal Breath Sounds. No Crackles, Rales, Rhonchi, Wheezing Cardiovascular: Regular Rhythm, Regular Rate. No Murmur, Gallops, Rubs Gastrointestinal/Abdominal: Normal Bowel Sounds, Soft. Mild tenderness to deep palpation in the epigastrium on exam. No Guarding, Rebound, Musculoskeletal: No CVA Tenderness Extremity: Normal Capillary Refill Integumentary: Normal Color, Dry, Warm Neurologic: Fully Oriented, Alert, Normal Mood/Affect, Normal Response, ED Treatment Course - LABORATORY CBC & Chemistry Diagram: 06/08/17 13:29 06/08/17 13:29 - RADIOLOGY Radiology Studies Ordered: Category Date Time Status CHEST X-RAY PORTABLE* [RAD] Stat Radiology 06/08/17 11:46 Ordered Medical Decision Making - Medical Decision Making 06/08/17 12:17 The patient is an 87 year old female with a history of IDDM, HTN, HLD, CHF, COPD who presents for evaluation of nausea, vomiting, cough and fevers. Differential includes but is not limited to: Sepsis, Pneumonia, viral syndrome, Gastroenteritis, infectious, metabolic derangement. Given the patient's vitals and history, it is possible the patient is septic and we will obtain a cbc, cmp , troponin, ekg, lactate, vbg, and chest plain film to evaluate further for possible etiologies. We will continue to monitor and reassess in the meantime and treat the patient with iv tylenol. 06/08/17 15:37 CBC demonstrates and elevated WBC to 12.2. CMP demonstrates an elevated glucose to 324 and lactate is elevated to 2.8. Chest plain film is unremarkable as read by our radiologist. UA demonstrates glucose, but is otherwise unremarkable. The patient received vancomycin and zosyn for antibiotic coverage. We will obtain a CT abdomen pelvis to evaluate for other possible sources of infection. The patient will require admission for further management of her symptoms. We discussed the case with Dr. Lam who accepted the patient for admission and requests the patient be placed on Dr. Barnett's service with ID Consultation with Dr. Grant. *DC/Admit/Observation/Transfer Diagnosis at time of Disposition: Sepsis Qualifiers: Sepsis type: sepsis due to unspecified organism Qualified Code(s): A41.9 - Sepsis, unspecified organism Nausea & vomiting Qualifiers: Vomiting type: unspecified Vomiting Intractability: unspecified Qualified Code( s): R11.2 - Nausea with vomiting, unspecified - Discharge Dispostion Condition at time of disposition: Stable Admit: Yes - Referrals Referrals: Tyrell Back MD [Primary Care Provider] - - Patient Instructions - Post Discharge Activity
[2017-06-08 13:33] LABS: BASO % 0.9 % (0-2.0); EOS % 0.2 % (0-4.5); HEMATOCRIT 49.8 % (32.4-45.2); HEMOGLOBIN 16.6 GM/dL (10.7-15.3); LYMPH % 20.1 % (8-40); MCH 29.8 pg (25.7-33.7); MCHC 33.3 g/dl (32.0-36.0); MEAN CELL VOLUME 89.5 fl (80-96); MEAN PLT VOLUME 10.2 fl (7.5-11.1); MONO % 10.3 % (3.8-10.2); NEUT % 68.5 % (42.8-82.8); PLATELET COUNT 152 K/MM3 (134-434); RBC 5.57 M/mm3 (3.60-5.2); RDW 15.1 % (11.6-15.6); WHITE BLOOD COUNT 13.2 K/mm3 (4.0-10.0)
--- NOTE | 2017-06-08 13:34 | PDOC ---
Attending Attestation - Resident Resident Name: Israel Quiroga - ED Attending Attestation I have performed the following: I have examined & evaluated the patient, The case was reviewed & discussed with the resident, I agree w/resident's findings & plan, Exceptions are as noted - HPI HPI: 06/08/17 13:32 The patient is a 87 year old female, accompanied by family, with a significant past medical history of diabetes, hypertension, hyperlipidemia, hypothyroidism, COPD, CHF, and mitral valve prolapse, who presents to the emergency department with nausea, vomiting, fever, dry cough, sore throat, fatigue and generalized weakness for approximately 4 days. As per family, patient has had no chest pain , shortness of breath, diaphoresis, or palpitations. Patient has not complained of any abdominal pain, diarrhea, constipation, or bowel incontinence. She denies any dysuria, hematuria, frequency, urgency, or bladder incontinence. No recent travel or sick contacts. Pt was brought in to ER for increased lethargy today. Family denies any new unilateral weakness, no slurred speech, no facial droop. - Physicial Exam PE: 06/08/17 13:32 "GENERAL: Awake, alert, and fully oriented, in no acute distress HEAD: No signs of trauma EYES: PERRLA, EOMI, sclera anicteric, conjunctiva clear ENT: Auricles normal inspection, hearing grossly normal, nares patent, oropharynx clear without exudates. Moist mucosa NECK: Nontender, no stepoffs, Normal ROM, supple, no lymphadenopathy, JVD, or masses LUNGS: Breath sounds equal, clear to auscultation bilaterally. No wheezes, and no crackles HEART: Regular rate and rhythm, normal S1 and S2, no murmurs, rubs or gallops ABDOMEN: Soft, mild epigastric TTP, normoactive bowel sounds. No guarding, no rebound. No masses EXTREMITIES: Normal range of motion, no edema. No clubbing or cyanosis. No cords, erythema, or tenderness NEUROLOGICAL: Cranial nerves II through XII intact. 5/5 strength and sensation in all extremities, Normal speech, normal gait, normal cerebellar function SKIN: Warm, Dry, normal turgor, no rashes or lesions noted. " - Medical Decision Making 06/08/17 13:32 87 F with fever, cough, N+V, lethargy x 4 days. Found to be febrile, tachycardic , and mildly hypoxic in ER. Possible PNA vs influenza. Pt with mild epigastric TTP on exam. Low suspicion for acute abdominal pathology, but will CT if indicated. - Labs, cultures - CXR - Abx - Admit 06/08/17 16:02 Pt admitted to hospitalist for fever. UA and CXR unremarkable. Will obtain CTAP to r/o intraabdominal process. Case discussed in detail with admitting physician including history, physical exam and ancillary studies. Admitting physician has assumed care for the patient and will follow all pending diagnostics and complete the evaluation and treatment.
[2017-06-08 13:35] LABS: VENOUS PC02 49.4 mmHg (38-52); VENOUS PH 7.36 (7.32-7.42); VENOUS PO2 25.6 mmHg (28-48)
--- NOTE | 2017-06-08 13:41 | EKG ---
Test Reason : Blood Pressure : / mmHG Vent. Rate : 112 BPM Atrial Rate : 112 BPM P-R Int : 000 ms QRS Dur : 088 ms QT Int : 400 ms P-R-T Axes : 000 -19 119 degrees QTc Int : 546 ms SINUS TACHYCARDIA WITH PREMATURE ATRIAL COMPLEXES LEFT VENTRICULAR HYPERTROPHY WITH REPOLARIZATION ABNORMALITY INFERIOR INFARCT , AGE UNDETERMINED ABNORMAL ECG WHEN COMPARED WITH ECG OF 15-MAR-2017 10:58, PREMATURE VENTRICULAR COMPLEXES ARE NO LONGER PRESENT PREMATURE ATRIAL COMPLEXES ARE NOW PRESENT [place] INTERVAL HAS DECREASED T WAVE INVERSION NOW EVIDENT IN LATERAL LEADS Confirmed by KEMAL THOMAS MD ([id number]) on 06/08/2017 1:41:07 PM Referred By: Confirmed By:KEMAL THOMAS MD
[2017-06-08] MEDS ORDERED: ACETAMINOPHEN INJECTION 100 ML IVPB ONE (13:44)
[2017-06-08 13:47] LABS: INR 1.1 (0.82-1.09); PROTHROMBIN TIME (PATIENT) 12.4 SEC (9.98-11.88)
[2017-06-08 13:49] LABS: BASO % 0.6 % (0-2.0); EOS % 0.1 % (0-4.5); HEMATOCRIT 48.6 % (32.4-45.2); HEMOGLOBIN 16.2 GM/dL (10.7-15.3); LYMPH % 20.3 % (8-40); MCH 29.6 pg (25.7-33.7); MCHC 33.4 g/dl (32.0-36.0); MEAN CELL VOLUME 88.5 fl (80-96); MEAN PLT VOLUME 9.7 fl (7.5-11.1); MONO % 9.6 % (3.8-10.2); NEUT % 69.4 % (42.8-82.8); PLATELET COUNT 179 K/MM3 (134-434); RBC 5.49 M/mm3 (3.60-5.2); RDW 14.8 % (11.6-15.6); WHITE BLOOD COUNT 12.2 K/mm3 (4.0-10.0)
[2017-06-08 13:50] LABS: ACTIVATED PTT 27.3 SECONDS (26.9-34.4)
[2017-06-08 13:51] LABS: VENOUS PC02 52.1 mmHg (38-52); VENOUS PH 7.38 (7.32-7.42); VENOUS PO2 27.4 mmHg (28-48)
[2017-06-08 13:57] LABS: ALBUMIN 3.2 g/dl (3.4-5.0); ANION GAP 18 (8-16); BILIRUBIN,TOTAL 2.6 mg/dL (0.2-1.0); BLOOD UREA NITROGEN 21 mg/dL (7-18); CALCIUM 9.1 mg/dL (8.5-10.1); CHLORIDE 96 mmol/L (98-107); CO2 25 mmol/L (21-32); CREATININE 1.3 mg/dL (0.55-1.02); POTASSIUM 4.1 mmol/L (3.5-5.1); SGOT/AST 20 U/L (15-37); SGPT/ALT 19 U/L (12-78); SODIUM 139 mmol/L (136-145); TOT PROT 7.3 g/dl (6.4-8.2)
[2017-06-08 13:58] LABS: ALK PHOS 107 U/L (45-117)
[2017-06-08 14:01] LABS: INR 1.14 (0.82-1.09); PROTHROMBIN TIME (PATIENT) 12.9 SEC (9.98-11.88)
[2017-06-08 14:03] LABS: ACTIVATED PTT 30.2 SECONDS (26.9-34.4)
[2017-06-08] MEDS ORDERED: SODIUM CHLORIDE 500 ML IV STA (14:07)
[2017-06-08 14:10] LABS: GLUCOSE,RANDOM 324 mg/dL (74-106)
[2017-06-08] MEDS ORDERED: PIPERACILLIN/TAZOB 3.375 GM 50 ML IVPB ONE (14:10)
[2017-06-08] MEDS ORDERED: VANCOMYCIN 1,250 MG in DEXTROSE 5%-WATER - 250 ML IVPB ONE (14:10)
[2017-06-08] MEDS ORDERED: VANCOMYCIN 1 GRAM (PRE-DOCKED) 1,000 MG/250 ML BAG IVPB ONE (14:20)
[2017-06-08] MEDS ORDERED: PIPERACILLIN/TAZOB 4.5 GM 4.5 GM/100 ML BAG IVPB ONE (14:20)
[2017-06-08 14:35] LABS: ALBUMIN 3.4 g/dl (3.4-5.0); ANION GAP 12 (8-16); BLOOD UREA NITROGEN 22 mg/dL (7-18); CALCIUM 8.8 mg/dL (8.5-10.1); CHLORIDE 96 mmol/L (98-107); CO2 29 mmol/L (21-32); POTASSIUM 3.7 mmol/L (3.5-5.1); SODIUM 137 mmol/L (136-145)
[2017-06-08 14:38] LABS: ALK PHOS 106 U/L (45-117); BILIRUBIN,TOTAL 2.7 mg/dL (0.2-1.0); CREATININE 1.3 mg/dL (0.55-1.02); SGOT/AST 18 U/L (15-37); SGPT/ALT 16 U/L (12-78); TOT PROT 6.9 g/dl (6.4-8.2)
[2017-06-08 14:49] LABS: URINE APPEARANCE CLOUDY; URINE BLOOD NEGATIVE (NEGATIVE); URINE COLOR AMBER; URINE GLUCOSE (UA) 3+ (NEGATIVE); URINE KETONE 1+ (NEGATIVE); URINE LEUK ESTERASE NEGATIVE (NEGATIVE); URINE NITRITE NEGATIVE (NEGATIVE); URINE UROBILINOGEN 4.0 E.U/dl mg/dL (0.2-1.0)
[2017-06-08 14:54] LABS: GLUCOSE,RANDOM 324 mg/dL (74-106)
[2017-06-08 14:57] LABS: URINE PROTEIN 2+ (NEGATIVE)
[2017-06-08 15:04] LABS: EPI CELLS RARE /HPF (FEW); URINE HYALINE CAST 136 /lpf; URINE MUCUS MANY
[2017-06-08] MEDS ORDERED: SODIUM CHLORIDE 1,000 ML IV SCH ×2 (16:45→19:56)
[2017-06-08] MEDS ORDERED: ONDANSETRON 4 MG/2 ML VIAL IVPUSH ONE (16:51)
[2017-06-08] MEDS ORDERED: ACETAMINOPHEN 650 MG SUPP.RECT PR PRN (16:53)
[2017-06-08] MEDS ORDERED: ONDANSETRON 4 MG/2 ML VIAL ONE (16:53)
[2017-06-08] MEDS ORDERED: METOCLOPRAMIDE HCL INJECTION 10 MG/2 ML VIAL IVPUSH PRN (16:53)
[2017-06-08] MEDS ORDERED: METOPROLOL TARTRATE 5 MG/5 ML VIAL IVPUSH PRN (17:01)
--- NOTE | 2017-06-08 17:53 | PN ---
Progress Note (short form) - Note Progress Note: ID Consult dictated
[2017-06-08] MEDS ORDERED: DEXTROSE 50%-WATER 25 GM/50 ML DISP.SYRIN IVPUSH PRN (17:57)
--- NOTE | 2017-06-08 18:04 | CON.GI ---
Consult Consult Specialty:: GI - History of Present Illness Chief Complaint: Abdominal pain/Nausea/Vomiting/Sore throat History of Present Illness: patient is a 87 year old female, accompanied by daughters, with a significant past medical history of diabetes, hypertension, hyperlipidemia, hypothyroidism, COPD, CHF, and mitral valve prolapse, presented to the ED today with nausea, vomiting, non-productive cough, sore throat and generalized weakness for 4 days. Patient's daughter reports 2 previous ED visit with the same complaints and would do well in the hospital but would revert once discharged home. Patient now complains of abdominal pain on palpation, nausea, vomiting and sore throat. - History Source History Provided By: Patient, Family Member Limitations to Obtaining History: Other - Past Medical History [employer] OFFBEARER: Yes: Dementia, 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 2011 dobut MIBI: no STs ; moderate reversible defect anterior and lateral faith confounded by large breast shadow; nl EF -> pt didn't follow as outpt as planned (was on DATP for a little while). Echo 09/13: nl LVEF, nl RV, nl valve fxn), HTN, Hyperlipdemia Pulmonary: Yes: COPD Gastrointestinal: Yes: Constipation Endocrine: Yes: Diabetes Mellitus (insulin-dependent for years -> uncontrolled) , Hypothyroidism Dermatology: Yes: Cellulitis (in past, with chronic and intermittent edema) - Alcohol/Substance Use Hx Alcohol Use: No History of Substance Use: reports: None - Smoking History Smoking history: Never smoked Have you smoked in the past 12 months: No Aproximately how many cigarettes per day: 0 If you are a former smoker, when did you quit?: 1984 - Social History Usual Living Arrangement: With Spouse (who is on HD) History of Recent Travel: No Home Medications - Allergies Allergies/Adverse Reactions: Allergies Allergy/AdvReac Type Severity Reaction Status Date / Time No Known Allergies Allergy Verified 04/19/17 15:57 - Home Medications Home Medications: Ambulatory Orders Acetaminophen [Tylenol .Regular Strength -] 650 mg PO Q4H PRN #0 tablet Insulin (Levemir) [Levemir Vial] 15 units SQ AM ml 03/16/17 Insulin Sliding Scale [Novolog Vial Sliding Scale -] 1 vial SQ ACHS units 03/16 Polyethylene Glycol 3350 [Miralax 119 gm Btl -] 34 gm PO DAILY bottle 03/16/17 Atorvastatin Ca [Lipitor] 40 mg PO HS 06/08/17 Furosemide [Lasix -] 40 mg PO DAILY 06/08/17 Levothyroxine [Synthroid -] 112 mcg PO DAILY 06/08/17 Metoclopramide HCl 5 mg PO DAILY 06/08/17 Ranitidine [Zantac -] 150 mg PO BID 06/08/17 Valsartan [Diovan] 160 mg PO DAILY 06/08/17 Family Disease History - Family Disease History Family Disease History: Diabetes: Daughter Physical Exam-GI Vital Signs: Vital Signs Temperature 98.6 F 06/08/17 16:50 Pulse Rate 96 H 06/08/17 16:50 Respiratory Rate 16 06/08/17 16:50 Blood Pressure 135/68 06/08/17 16:50 O2 Sat by Pulse Oximetry (%) 97 06/08/17 16:50 Constitutional: Yes: No Distress, Calm, Obese Eyes: Yes: Conjunctiva Clear HENT: Yes: Atraumatic Cardiovascular: Yes: Tachycardia. No: Regular Rate and Rhythm Respiratory: Yes: Regular, CTA Bilaterally, Cough ...Auscultate: Yes: Normoactive Bowel Sounds ...Palpate: Yes: Tenderness (diffused), Tenderness, Epigastium. No: Firm/Rigid , Guarding, Tenderness, Rebound Labs: CBC, BMP 06/08/17 13:29 06/08/17 13:29 INR, PTT INR 1.14 (0.82-1.09) 06/08/17 13:29
[2017-06-08 18:10] VITALS: BMI 39.2
--- NOTE | 2017-06-08 19:47 | CON.GI ---
Consult Consult Specialty:: GI - History of Present Illness Chief Complaint: abdominal pain, nause and vomiting History of Present Illness: information obtained from her daughters. SHe has frequent admissions because of epigastric pain, nausea and vomiting. She alsowas noted to have change in mental status and being depressed. She has lost about 30lbs in 3 mos. Several catscans were done which did no reveal any pathology. What is more of a concern is her frequent vomiting. 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 2011 dobut MIBI: no STs ; moderate reversible defect anterior and lateral faith confounded by large breast shadow; nl EF -> pt didn't follow as outpt as planned (was on DATP for a little while). Echo 09/13: nl LVEF, nl RV, nl valve fxn), HTN, Hyperlipdemia Pulmonary: Yes: COPD Gastrointestinal: Yes: Constipation Endocrine: Yes: Diabetes Mellitus (insulin-dependent for years -> uncontrolled) , Hypothyroidism Dermatology: Yes: Cellulitis (in past, with chronic and intermittent edema) - Alcohol/Substance Use Hx Alcohol Use: No History of Substance Use: reports: None - Smoking History Smoking history: Never smoked Have you smoked in the past 12 months: No Aproximately how many cigarettes per day: 0 If you are a former smoker, when did you quit?: 1984 - Social History Usual Living Arrangement: With Spouse (who is on HD) History of Recent Travel: No Home Medications - Allergies Allergies/Adverse Reactions: Allergies Allergy/AdvReac Type Severity Reaction Status Date / Time No Known Allergies Allergy Verified 04/19/17 15:57 - Home Medications Home Medications: Ambulatory Orders Acetaminophen [Tylenol .Regular Strength -] 650 mg PO Q4H PRN #0 tablet Insulin (Levemir) [Levemir Vial] 15 units SQ AM ml 03/16/17 Insulin Sliding Scale [Novolog Vial Sliding Scale -] 1 vial SQ ACHS units 03/16 Polyethylene Glycol 3350 [Miralax 119 gm Btl -] 34 gm PO DAILY bottle 03/16/17 Atorvastatin Ca [Lipitor] 40 mg PO HS 06/08/17 Furosemide [Lasix -] 40 mg PO DAILY 06/08/17 Levothyroxine [Synthroid -] 112 mcg PO DAILY 06/08/17 Metoclopramide HCl 5 mg PO DAILY 06/08/17 Ranitidine [Zantac -] 150 mg PO BID 06/08/17 Valsartan [Diovan] 160 mg PO DAILY 06/08/17 Family Disease History - Family Disease History Family Disease History: Diabetes: Daughter Review of Systems Findings/Remarks: patients condition Physical Exam-GI Vital Signs: Vital Signs Temperature 98.6 F 06/08/17 18:03 Pulse Rate 96 H 06/08/17 18:03 Respiratory Rate 18 06/08/17 18:03 Blood Pressure 135/88 06/08/17 18:03 O2 Sat by Pulse Oximetry (%) 96 06/08/17 18:33 Constitutional: Yes: Well Nourished Eyes: Yes: Conjunctiva Clear HENT: Yes: Normocephalic Neck: Yes: Trachea Midline Cardiovascular: Yes: Regular Rate and Rhythm Respiratory: Yes: CTA Bilaterally ...Palpate: Yes: Soft, Tenderness, Epigastium. No: Firm/Rigid, Guarding, Hepatomegaly, Mass, Pulsatile Mass, Splenomegaly Labs: CBC, BMP 06/08/17 13:29 06/08/17 13:29 INR, PTT INR 1.14 (0.82-1.09) 06/08/17 13:29 Hepatic Panel Total Bilirubin 2.7 mg/dL (0.2-1.0) H 06/08/17 13:29 AST 18 U/L (15-37) 06/08/17 13:29 ALT 16 U/L (12-78) 06/08/17 13:29 Alkaline Phosphatase 106 U/L (45-117) 06/08/17 13:29 Albumin 3.4 g/dl (3.4-5.0) 06/08/17 13:29 Imaging - Results Cat Scan: Report Reviewed Problem List - Problems (1) Nausea & vomiting Assessment/Plan: r/o secondary to gastroparesis R> IV Reglan IV Zofran Code(s): R11.2 - NAUSEA WITH VOMITING, UNSPECIFIED Qualifiers: Vomiting type: unspecified Vomiting Intractability: unspecified Qualified Code(s): R11.2 - Nausea with vomiting, unspecified (2) Constipation Assessment/Plan: R> Miralax 17 grams bid Code(s): K59.00 - CONSTIPATION, UNSPECIFIED Qualifiers: Constipation type: unspecified constipation type Qualified Code(s): K59.00 - Constipation, unspecified (3) Dehydration Assessment/Plan: NSS x 3 liters Code(s): E86.0 - DEHYDRATION (4) Epigastric abdominal pain Assessment/Plan: r/o peptic ulcer disease vs malignancy became of weight loss R> undecided regarding EGD because of her advanced age Protonix 40mg bid as an outpatient Code(s): R10.13 - EPIGASTRIC PAIN
[2017-06-08] MEDS: CEFTRIAXONE IN IS-OSM DEXTROSE 2 GM/50 ML BAG IVPB SCH (19:50)
[2017-06-08] MEDS ORDERED: ONDANSETRON 4 MG/2 ML VIAL IVPUSH PRN (20:03)
[2017-06-08] MEDS: SODIUM CHLORIDE 1,000 ML IV SCH (20:29)
[2017-06-08] MEDS: METOCLOPRAMIDE HCL INJECTION 10 MG/2 ML VIAL IVPB SCH (20:59)
[2017-06-08] MEDS: ONDANSETRON 4 MG/2 ML VIAL IVPB SCH (20:59)
[2017-06-08] MEDS: PANTOPRAZOLE SODIUM 40 MG VIAL IVPUSH SCH (21:00)
[2017-06-08] MEDS: HEPARIN NA (PORCINE) 5,000 UNITS/ML 1ML VIAL SQ SCH (21:00)
[2017-06-08] MEDS ORDERED: PANTOPRAZOLE SODIUM 40 MG in SODIUM CHLORIDE 100 ML IVPB SCH (22:00)
[2017-06-08] MEDS ORDERED: INSULIN (NOVOLOG) ASPART 100 UNITS/ML 10ML VIAL SQ ONE (22:22)
[2017-06-09] MEDS: ONDANSETRON 4 MG/2 ML VIAL IVPB SCH ×5 (01:32→22:27)
[2017-06-09] MEDS: METOCLOPRAMIDE HCL INJECTION 10 MG/2 ML VIAL IVPB SCH ×3 (01:32→18:11)
[2017-06-09] MEDS: SODIUM CHLORIDE 1,000 ML IV SCH (03:00)
[2017-06-09] MEDS: INSULIN DETEMIR 100 UNITS/ML MDV SQ SCH (06:12)
[2017-06-09 08:48] LABS: BASO % 0.9 % (0-2.0); EOS % 0.7 % (0-4.5); HEMATOCRIT 45.2 % (32.4-45.2); HEMOGLOBIN 15.4 GM/dL (10.7-15.3); MCH 30.1 pg (25.7-33.7); MEAN CELL VOLUME 88.4 fl (80-96); MEAN PLT VOLUME 9.8 fl (7.5-11.1); MONO % 8.9 % (3.8-10.2); NEUT % 75.5 % (42.8-82.8); PLATELET COUNT 154 K/MM3 (134-434); RBC 5.11 M/mm3 (3.60-5.2); RDW 14.9 % (11.6-15.6); WHITE BLOOD COUNT 8.9 K/mm3 (4.0-10.0)
[2017-06-09 09:38] LABS: ALBUMIN 2.8 g/dl (3.4-5.0); ALK PHOS 86 U/L (45-117); ANION GAP 10 (8-16); BILIRUBIN,TOTAL 1.8 mg/dL (0.2-1.0); BLOOD UREA NITROGEN 14 mg/dL (7-18); CHLORIDE 103 mmol/L (98-107); CO2 28 mmol/L (21-32); CREATININE 0.8 mg/dL (0.55-1.02); GLUCOSE,RANDOM 226 mg/dL (74-106); POTASSIUM 3.3 mmol/L (3.5-5.1); SGOT/AST 16 U/L (15-37); SGPT/ALT 13 U/L (12-78); SODIUM 141 mmol/L (136-145); TOT PROT 6.2 g/dl (6.4-8.2)
[2017-06-09] MEDS ORDERED: LEVOTHYROXINE SODIUM 100 MCG VIAL IVPUSH SCH (10:00)
[2017-06-09] MEDS ORDERED: PANTOPRAZOLE SODIUM 40 MG VIAL IVPUSH SCH (10:00)
[2017-06-09] MEDS ORDERED: FUROSEMIDE 40 MG/4 ML INJECTABLE VIAL IVPUSH SCH (10:00)
[2017-06-09] MEDS: PANTOPRAZOLE SODIUM 40 MG VIAL IVPUSH SCH ×2 (10:21→22:27)
[2017-06-09] MEDS: HEPARIN NA (PORCINE) 5,000 UNITS/ML 1ML VIAL SQ SCH ×2 (10:21→22:27)
[2017-06-09] MEDS ORDERED: PT OWN MED DRAWER 7, Y5N ONE (10:23)
--- NOTE | 2017-06-09 10:43 | HP ---
Admitting History and Physical - Primary Care Physician PCP: Wei Lam - Admission Chief Complaint: Nausea/ vomiting/weakness History of Present Illness: he patient is an 87 year old female with a history of IDDM, HTN, HLD, CHF, COPD who presents for evaluation of nausea, vomiting, cough and fevers. The patient is accompanied by family who assist in providing the history. They report a 4 day history of nausea with multiple episodes of non-bilious, non-bloody vomiting with an associated sore throat and non-productive cough. They noted fevers and generalized weakness throughout this time period as well prompting their presentation to the ED for evaluation. The deny any current sick contacts at this time. The patient is endorsing some mild epigastric abdominal pain, but otherwise denies SOB, chest pain, or changes with urination or bowel movements. 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 2011 dobut MIBI: no STs ; moderate reversible defect anterior and lateral faith confounded by large breast shadow; nl EF -> pt didn't follow as outpt as planned (was on DATP for a little while). Echo 09/13: nl LVEF, nl RV, nl valve fxn), HTN, Hyperlipdemia Pulmonary: Yes: COPD Gastrointestinal: Yes: Constipation Heme/Onc: Yes: Cancer (thyroid) Endocrine: Yes: Diabetes Mellitus (insulin-dependent for years -> uncontrolled) , Hypothyroidism Dermatology: Yes: Cellulitis (in past, with chronic and intermittent edema) - Smoking History Smoking history: Never smoked Have you smoked in the past 12 months: No Aproximately how many cigarettes per day: 0 If you are a former smoker, when did you quit?: 1984 - Alcohol/Substance Use Hx Alcohol Use: No History of Substance Use: reports: None - Social History History of Recent Travel: No Home Medications - Allergies Allergies/Adverse Reactions: Allergies Allergy/AdvReac Type Severity Reaction Status Date / Time No Known Allergies Allergy Verified 04/19/17 15:57 - Home Medications Home Medications: Ambulatory Orders Acetaminophen [Tylenol .Regular Strength -] 650 mg PO Q4H PRN #0 tablet Insulin (Levemir) [Levemir Vial] 15 units SQ AM ml 03/16/17 Insulin Sliding Scale [Novolog Vial Sliding Scale -] 1 vial SQ ACHS units 03/16 Polyethylene Glycol 3350 [Miralax 119 gm Btl -] 34 gm PO DAILY bottle 03/16/17 Atorvastatin Ca [Lipitor] 40 mg PO HS 06/08/17 Furosemide [Lasix -] 40 mg PO DAILY 06/08/17 Levothyroxine [Synthroid -] 112 mcg PO DAILY 06/08/17 Metoclopramide HCl 5 mg PO DAILY 06/08/17 Ranitidine [Zantac -] 150 mg PO BID 06/08/17 Valsartan [Diovan] 160 mg PO DAILY 06/08/17 Family Disease History - Family Disease History Family Disease History: Diabetes: Daughter Review of Systems - Review of Systems Constitutional: reports: Lethargy, Weakness Eyes: reports: No Symptoms HENT: reports: No Symptoms Neck: reports: No Symptoms Cardiovascular: reports: No Symptoms Respiratory: reports: No Symptoms Gastrointestinal: reports: Abdominal Pain, Nausea, Vomiting Genitourinary: reports: No Symptoms Breasts: reports: No Symptoms Reported Musculoskeletal: reports: No Symptoms Integumentary: reports: No Symptoms Neurological: reports: No Symptoms Endocrine: reports: No Symptoms Hematology/Lymphatic: reports: No Symptoms Psychiatric: reports: No Symptoms Physical Examination Vital Signs: Vital Signs Temperature 98.6 F 06/09/17 07:35 Pulse Rate 104 H 06/09/17 07:35 Respiratory Rate 20 06/09/17 07:35 Blood Pressure 162/94 06/09/17 07:35 O2 Sat by Pulse Oximetry (%) 97 06/08/17 21:00 Constitutional: Yes: Well Nourished, No Distress, Calm Cardiovascular: Yes: Regular Rate and Rhythm Respiratory: Yes: Regular Gastrointestinal: Yes: Soft, Hypoactive Bowel Sounds Musculoskeletal: Yes: WNL Extremities: Yes: WNL Edema: No Peripheral Pulses WNL: Yes Neurological: Yes: Lethargy Labs: CBC, BMP 06/09/17 08:30 06/09/17 08:30 Imaging - Results Chest X-ray: Report Reviewed Problem List - Problems (1) Nausea & vomiting Assessment/Plan: -Pt lethargic at this time -2/2 to gastroparesis -seen by GI -Zoan Code(s): R11.2 - NAUSEA WITH VOMITING, UNSPECIFIED Qualifiers: Vomiting type: unspecified Vomiting Intractability: unspecified Qualified Code(s): R11.2 - Nausea with vomiting, unspecified (2) Abdominal pain Assessment/Plan: -no abdominal pain at this time -Await Ca antigen Code(s): R10.9 - UNSPECIFIED ABDOMINAL PAIN (3) Dehydration Assessment/Plan: -dehydration improved -decrease IVF Code(s): E86.0 - DEHYDRATION (4) Diabetes mellitus, insulin dependent (IDDM), uncontrolled Assessment/Plan: -Endocrine consult -Insulin -restart clear liquids diabetic, once more awake Code(s): E10.65 - TYPE 1 DIABETES MELLITUS WITH HYPERGLYCEMIA Qualifiers: Diabetes mellitus complication status: with unspecified complications Qualified Code(s): E10.8 - Type 1 diabetes mellitus with unspecified complications (5) Gastroparesis Assessment/Plan: -seen by GI -CT abd reviewed -endocrine consult -Insulin Code(s): K31.84 - GASTROPARESIS Assessment/Plan see problem lsit DVT and GI prophylaxis
[2017-06-09] MEDS: SODIUM CHLORIDE 0.9%/KCL 20 MEQ/1,000 ML INFUS.BAG IV SCH (11:35)
[2017-06-09] MEDS: CEFTRIAXONE IN IS-OSM DEXTROSE 2 GM/50 ML BAG IVPB SCH (11:46)
[2017-06-09] MEDS: LEVOTHYROXINE SODIUM 100 MCG VIAL IVPUSH SCH (11:50)
[2017-06-09] MEDS: POTASSIUM CHLORIDE 10 MEQ in SODIUM CHLORIDE 100 ML IVPB SCH ×3 (12:28→15:05)
--- NOTE | 2017-06-09 13:12 | CON.CARD ---
Consult Consult Specialty:: cardiology Referred by:: Anibal Reason for Consultation:: Abnormal ECG - History of Present Illness Chief Complaint: Nausea and vomiting, abdominal pain History of Present Illness: The patient is an [id number], we've a history of diabetes, hypertension, hyperlipidemia, COPD, CHF, hypothyroidism, mitral valve prolapse, now admitted with nausea and vomiting and abdominal pains. The patient looks fairly comfortable. Denies chest pains, shortness of breath, palpitations. 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 2011 dobut MIBI: no STs ; moderate reversible defect anterior and lateral faith confounded by large breast shadow; nl EF -> pt didn't follow as outpt as planned (was on DATP for a little while). Echo 09/13: nl LVEF, nl RV, nl valve fxn), HTN, Hyperlipdemia Pulmonary: Yes: COPD Gastrointestinal: Yes: Constipation Endocrine: Yes: Diabetes Mellitus (insulin-dependent for years -> uncontrolled) , Hypothyroidism Dermatology: Yes: Cellulitis (in past, with chronic and intermittent edema) - Alcohol/Substance Use Hx Alcohol Use: No History of Substance Use: reports: None - Smoking History Smoking history: Never smoked Have you smoked in the past 12 months: No Aproximately how many cigarettes per day: 0 If you are a former smoker, when did you quit?: 1984 - Social History Usual Living Arrangement: With Spouse (who is on HD) History of Recent Travel: No Home Medications - Allergies Allergies/Adverse Reactions: Allergies Allergy/AdvReac Type Severity Reaction Status Date / Time No Known Allergies Allergy Verified 04/19/17 15:57 - Home Medications Home Medications: Ambulatory Orders Acetaminophen [Tylenol .Regular Strength -] 650 mg PO Q4H PRN #0 tablet Insulin (Levemir) [Levemir Vial] 15 units SQ AM ml 03/16/17 Insulin Sliding Scale [Novolog Vial Sliding Scale -] 1 vial SQ ACHS units 03/16 Polyethylene Glycol 3350 [Miralax 119 gm Btl -] 34 gm PO DAILY bottle 03/16/17 Atorvastatin Ca [Lipitor] 40 mg PO HS 06/08/17 Furosemide [Lasix -] 40 mg PO DAILY 06/08/17 Levothyroxine [Synthroid -] 112 mcg PO DAILY 06/08/17 Metoclopramide HCl 5 mg PO DAILY 06/08/17 Ranitidine [Zantac -] 150 mg PO BID 06/08/17 Valsartan [Diovan] 160 mg PO DAILY 06/08/17 Family Disease History - Family Disease History Family Disease History: Diabetes: Daughter Review of Systems - Review of Systems Constitutional: reports: Chills, Fever Eyes: reports: No Symptoms HENT: reports: No Symptoms Neck: reports: No Symptoms Cardiovascular: reports: No Symptoms Respiratory: reports: No Symptoms Gastrointestinal: reports: Abdominal Pain, Nausea, Vomiting Genitourinary: reports: No Symptoms Breasts: reports: No Symptoms Reported Musculoskeletal: reports: Muscle Weakness Integumentary: reports: No Symptoms Neurological: reports: No Symptoms Endocrine: reports: No Symptoms Hematology/Lymphatic: reports: No Symptoms Psychiatric: reports: No Symptoms Vital Signs: Vital Signs Temperature 98.6 F 06/09/17 07:35 Pulse Rate 104 H 06/09/17 07:35 Respiratory Rate 20 06/09/17 07:35 Blood Pressure 162/94 06/09/17 07:35 O2 Sat by Pulse Oximetry (%) 97 06/08/17 21:00 Constitutional: Yes: Well Nourished, No Distress, Calm Eyes: Yes: WNL, Conjunctiva Clear HENT: Yes: WNL, Atraumatic, Normocephalic Neck: Yes: WNL, Supple, Trachea Midline Respiratory: Yes: WNL, Regular, CTA Bilaterally Gastrointestinal: Yes: Normal Bowel Sounds, Soft, Abdomen, Obese, Hyperactive Bowel Sounds, Tenderness Renal/: Yes: WNL Cardiovascular: Yes: WNL, Regular Rate and Rhythm JVD: No Carotid Bruit: No PMI: Non-Displaced Heart Sounds: Yes: S1, S2 Murmur: Yes: Systolic Murmur, Grade 2 Musculoskeletal: Yes: WNL, Joint Stiffness Extremities: Yes: WNL Edema: No Peripheral Pulses: 1+ Left Carotid, 1+ Right Carotid, 1+ Left Femoral, 1+ Right Femoral, 1+ Left Popliteal, 1+ Right Popliteal, 1+ Left Doralis Pedis, 1+ Right Dorsalis Pedis Integumentary: Yes: WNL Neurological: Yes: WNL, Alert - Other Data Labs, Other Data: CBC, BMP 06/09/17 08:30 06/09/17 08:30 INR, PTT INR 1.14 (0.82-1.09) 06/08/17 13:29 Troponin, BNP 06/08/17 06/08/17 13:14 17:20 Troponin I 0.05 0.05 Troponin, BNP 06/08/17 06/08/17 13:14 17:20 Troponin I 0.05 0.05 Assessment/Plan Elderly female with multiple medical problems, now presenting with nausea and vomiting, abdominal pain and fevers. There is no evidence of ischemia nor acute coronary syndrome. The ECG showed sinus tachycardia with left ventricular hypertrophy and repolarization abnormalities. There are no acute ECG changes. Please continue present care. There is no need for further cardiac workup nor testing at this point. P please do not hesitate to call us PRN.
--- NOTE | 2017-06-09 14:48 | PN ---
Progress Note, Physician History of Present Illness: Patient reports improved epigastric tenderness, nausea and vomiting, patient was unable to tolerate clear liquid diet. She remains afebrile. - Current Medication List Current Medications: Active Medications Acetaminophen (Tylenol Suppository -) 650 mg NH Q4H PRN PRN Reason: FEVER Dextrose (D50w (Syringe) -) 25 gm IVPUSH PRN PRN PRN Reason: hypoglycemia Heparin Sodium (Porcine) (Heparin -) 5,000 unit SQ BID [facility] Last Admin: 06/09/17 10:21 Dose: 5,000 unit CEFTRIAXONE IN IS-OSM DEXTROSE (Ceftriaxone 2 Gm-D5w Bag) 2 gm in 50 mls @ 100 mls/hr IVPB DAILY [facility] Last Admin: 06/09/17 11:46 Dose: 100 mls/hr Potassium Chloride/Sodium Chloride (Ns+20 Meq Kcl -) 20 meq in 1,000 mls @ 75 mls/hr IV ASDIR [facility] Last Admin: 06/09/17 11:35 Dose: 75 mls/hr Potassium Chloride 10 meq/ (Sodium Chloride) 105 mls @ 105 mls/hr IVPB Q60M [facility] Stop: 06/09/17 14:59 Last Admin: 06/09/17 13:52 Dose: 105 mls/hr Insulin Detemir (Levemir Vial) 15 units SQ AM [facility] Last Admin: 06/09/17 06:12 Dose: 15 units Levothyroxine Sodium (Synthroid Injection -) 84 mcg IVPUSH DAILY [facility] Last Admin: 06/09/17 11:50 Dose: 84 mcg Metoclopramide HCl (Reglan Injection -) 10 mg IVPB Q8H-IV [facility] Last Admin: 06/09/17 10:21 Dose: 10 mg Metoprolol Tartrate (Lopressor Injection -) 5 mg IVPUSH Q4H PRN PRN Reason: HYPERTENSION Ondansetron HCl (Zofran Injection) 4 mg IVPUSH Q4H PRN PRN Reason: NAUSEA AND/OR VOMITING Pantoprazole Sodium (Protonix Iv) 40 mg IVPUSH BID [facility] Last Admin: 06/09/17 10:21 Dose: 40 mg - Objective Vital Signs: Vital Signs Temperature 98.6 F 06/09/17 07:35 Pulse Rate 104 H 06/09/17 07:35 Respiratory Rate 20 06/09/17 07:35 Blood Pressure 162/94 06/09/17 07:35 O2 Sat by Pulse Oximetry (%) 97 06/08/17 21:00 Constitutional: Yes: No Distress, Calm Eyes: Yes: Conjunctiva Clear HENT: Yes: Atraumatic Cardiovascular: Yes: Tachycardia. No: Regular Rate and Rhythm Respiratory: Yes: Regular, CTA Bilaterally Gastrointestinal: Yes: Normal Bowel Sounds, Soft, Abdomen, Obese, Tenderness, Epigastrium. No: Distention, Melena, Palpable Mass, Tenderness, Rebound Neurological: Yes: Alert, Oriented Labs: CBC, BMP 06/09/17 08:30 06/09/17 08:30 INR, PTT INR 1.14 (0.82-1.09) 06/08/17 13:29 Problem List - Problems (1) Nausea & vomiting Assessment/Plan: Recommendation: 1) administer Zofran 4mg IVPUSH q4hr for 4 scheduled doses then prn 2) continue Reglan 10mg IVPB q8hr 3) advance diet as tolerated Code(s): R11.2 - NAUSEA WITH VOMITING, UNSPECIFIED (2) Epigastric abdominal tenderness Assessment/Plan: Recommendation: 1) continue protonix 40mg IVPUSH BID 2) continue ceftriaxone 2gm daily Code(s): R10.816 - EPIGASTRIC ABDOMINAL TENDERNESS
--- NOTE | 2017-06-09 15:26 | PN ---
Progress Note, Physician History of Present Illness: Awake but lethargic Weak appearing Unable to eat secondary to nausea Temps down Afebrile WBC WNL BC no growth Urine c/s pending - Current Medication List Current Medications: Active Medications Acetaminophen (Tylenol Suppository -) 650 mg NE Q4H PRN PRN Reason: FEVER Dextrose (D50w (Syringe) -) 25 gm IVPUSH PRN PRN PRN Reason: hypoglycemia Heparin Sodium (Porcine) (Heparin -) 5,000 unit SQ BID [facility] Last Admin: 06/09/17 10:21 Dose: 5,000 unit CEFTRIAXONE IN IS-OSM DEXTROSE (Ceftriaxone 2 Gm-D5w Bag) 2 gm in 50 mls @ 100 mls/hr IVPB DAILY [facility] Last Admin: 06/09/17 11:46 Dose: 100 mls/hr Potassium Chloride/Sodium Chloride (Ns+20 Meq Kcl -) 20 meq in 1,000 mls @ 75 mls/hr IV ASDIR [facility] Last Admin: 06/09/17 11:35 Dose: 75 mls/hr Insulin Detemir (Levemir Vial) 15 units SQ AM [facility] Last Admin: 06/09/17 06:12 Dose: 15 units Levothyroxine Sodium (Synthroid Injection -) 84 mcg IVPUSH DAILY [facility] Last Admin: 06/09/17 11:50 Dose: 84 mcg Metoclopramide HCl (Reglan Injection -) 10 mg IVPB Q8H-IV [facility] Last Admin: 06/09/17 10:21 Dose: 10 mg Metoprolol Tartrate (Lopressor Injection -) 5 mg IVPUSH Q4H PRN PRN Reason: HYPERTENSION Ondansetron HCl (Zofran Injection) 4 mg IVPUSH Q4H PRN PRN Reason: NAUSEA AND/OR VOMITING Pantoprazole Sodium (Protonix Iv) 40 mg IVPUSH BID [facility] Last Admin: 06/09/17 10:21 Dose: 40 mg - Objective Vital Signs: Vital Signs Temperature 98.6 F 06/09/17 11:00 Pulse Rate 111 H 06/09/17 11:00 Respiratory Rate 20 06/09/17 11:00 Blood Pressure 137/77 06/09/17 11:00 O2 Sat by Pulse Oximetry (%) 97 06/09/17 11:00 Constitutional: Yes: No Distress, Obese Eyes: Yes: Conjunctiva Clear Cardiovascular: Yes: Regular Rate and Rhythm, S1, S2 Respiratory: Yes: CTA Bilaterally Gastrointestinal: Yes: Normal Bowel Sounds, Soft, Abdomen, Obese. No: Tenderness Edema: Yes Labs: CBC, BMP 06/09/17 08:30 06/09/17 08:30 INR, PTT INR 1.14 (0.82-1.09) 06/08/17 13:29 Assessment/Plan Diabetic gastroparesis R/O UTI Fever/leukocytosis-improved Await urine c/s Continue ceftriaxone
--- NOTE | 2017-06-09 16:01 | CONSULT ---
Consult - text type - Consultation Consultation Note: Neurology History of Present Illness: The patient is an 87 year old female with a history of IDDM, HTN, HLD, CHF, COPD who presented for evaluation of nausea, vomiting, cough and fevers. Justyn has been seen by GI for gastroperesis as she reported several days of nausea with multiple episodes of non-bilious, non-bloody vomiting with an associated sore throat and non-productive cough. ID also following and patient has been on Ceftriaxone. She noted fevers and generalized weakness throughout this time period as well prompting their presentation to the ED for evaluation. She has been fatigued appearing and combination of nausea/vomiting with poor PO intake has led to some deconditioning. CT head completed in Apr and reviewed and without acute changes. 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 2011 dobut MIBI: no STs ; moderate reversible defect anterior and lateral faith confounded by large breast shadow; nl EF -> pt didn't follow as outpt as planned (was on DATP for a little while). Echo 09/13: nl LVEF, nl RV, nl valve fxn), HTN, Hyperlipdemia Pulmonary: Yes: COPD Gastrointestinal: Yes: Constipation Heme/Onc: Yes: Cancer (thyroid) Endocrine: Yes: Diabetes Mellitus (insulin-dependent for years -> uncontrolled) , Hypothyroidism Dermatology: Yes: Cellulitis (in past, with chronic and intermittent edema) - Smoking History Smoking history: Never smoked Have you smoked in the past 12 months: No Aproximately how many cigarettes per day: 0 If you are a former smoker, when did you quit?: 1984 - Alcohol/Substance Use Hx Alcohol Use: No History of Substance Use: reports: None - Social History History of Recent Travel: No Home Medications - Allergies Allergies/Adverse Reactions: Allergies Allergy/AdvReac Type Severity Reaction Status Date / Time No Known Allergies Allergy Verified 04/19/17 15:57 - Home Medications Home Medications: Ambulatory Orders Acetaminophen [Tylenol .Regular Strength -] 650 mg PO Q4H PRN #0 tablet Insulin (Levemir) [Levemir Vial] 15 units SQ AM ml 03/16/17 Insulin Sliding Scale [Novolog Vial Sliding Scale -] 1 vial SQ ACHS units 03/16 Polyethylene Glycol 3350 [Miralax 119 gm Btl -] 34 gm PO DAILY bottle 03/16/17 Atorvastatin Ca [Lipitor] 40 mg PO HS 06/08/17 Furosemide [Lasix -] 40 mg PO DAILY 06/08/17 Levothyroxine [Synthroid -] 112 mcg PO DAILY 06/08/17 Metoclopramide HCl 5 mg PO DAILY 06/08/17 Ranitidine [Zantac -] 150 mg PO BID 06/08/17 Valsartan [Diovan] 160 mg PO DAILY 06/08/17 Family Disease History - Family Disease History Family Disease History: Diabetes: Daughter Review of Systems - Review of Systems Constitutional: reports: Lethargy, Weakness Eyes: reports: No Symptoms HENT: reports: No Symptoms Neck: reports: No Symptoms Cardiovascular: reports: No Symptoms Respiratory: reports: No Symptoms Gastrointestinal: reports: Abdominal Pain, Nausea, Vomiting Genitourinary: reports: No Symptoms Breasts: reports: No Symptoms Reported Musculoskeletal: reports: No Symptoms Integumentary: reports: No Symptoms Neurological: reports: No Symptoms Endocrine: reports: No Symptoms Hematology/Lymphatic: reports: No Symptoms Psychiatric: reports: No Symptoms Physical Examination Vital Signs: Vital Signs Temperature 98.6 F 06/09/17 07:35 Pulse Rate 104 H 06/09/17 07:35 Respiratory Rate 20 06/09/17 07:35 Blood Pressure 162/94 06/09/17 07:35 O2 Sat by Pulse Oximetry (%) 97 06/08/17 21:00 Constitutional: Yes: Well Nourished, No Distress, Calm Cardiovascular: Yes: Regular Rate and Rhythm Respiratory: Yes: Regular Gastrointestinal: Yes: Soft, Hypoactive Bowel Sounds Musculoskeletal: Yes: WNL Extremities: Yes: WNL Edema: No Peripheral Pulses WNL: Yes Neurological: Awake, alert, but faiguted, CN intact, moves all extremities, sensory intact, gait deferred CBCD WBC 8.9 K/mm3 (4.0-10.0) 06/09/17 08:30 RBC 5.11 M/mm3 (3.60-5.2) 06/09/17 08:30 Hgb 15.4 GM/dL (10.7-15.3) H 06/09/17 08:30 Hct 45.2 % (32.4-45.2) 06/09/17 08:30 MCV 88.4 fl (80-96) 06/09/17 08:30 MCHC 34.0 g/dl (32.0-36.0) 06/09/17 08:30 RDW 14.9 % (11.6-15.6) 06/09/17 08:30 Plt Count 154 K/MM3 (134-434) 06/09/17 08:30 MPV 9.8 fl (7.5-11.1) 06/09/17 08:30 CMP Sodium 141 mmol/L (136-145) 06/09/17 08:30 Potassium 3.3 mmol/L (3.5-5.1) L 06/09/17 08:30 Chloride 103 mmol/L (98-107) 06/09/17 08:30 Carbon Dioxide 28 mmol/L (21-32) 06/09/17 08:30 Anion Gap 10 (8-16) 06/09/17 08:30 BUN 14 mg/dL (7-18) 06/09/17 08:30 Creatinine 0.8 mg/dL (0.55-1.02) 06/09/17 08:30 Creat Clearance w eGFR > 60 (>60) 06/09/17 08:30 Calcium 8.0 mg/dL (8.5-10.1) L 06/09/17 08:30 Total Bilirubin 1.8 mg/dL (0.2-1.0) H D 06/09/17 08:30 AST 16 U/L (15-37) 06/09/17 08:30 ALT 13 U/L (12-78) 06/09/17 08:30 Alkaline Phosphatase 86 U/L (45-117) 06/09/17 08:30 Total Protein 6.2 g/dl (6.4-8.2) L 06/09/17 08:30 Albumin 2.8 g/dl (3.4-5.0) L 06/09/17 08:30 Imaging - Results Chest X-ray: Report Reviewed CT Head: report reviewed Plan: 87 year old female with a history of IDDM, HTN, HLD, CHF, COPD who presented for evaluation of nausea, vomiting, cough and fevers. She has been seen by GI for gastroperesis as she reported several days of nausea with multiple episodes of non-bilious, non-bloody vomiting with an associated sore throat and non- productive cough. ID following and patient has been on Ceftriaxone, follow up cultures GI followup, continue antiemetics, Reglan/Zofran Possibly 2/2 dehydration/deconditioning Continue IV/PO intake CT head completed recently and without acute changes, will hold off for now, if not improving then can recheck Ongoing gastroparesis Monitor DM, maintain euglycemic range, avoid hyper/hypoglycemia Monitor blood pressure, maintain normotensive range
--- NOTE | 2017-06-09 16:52 | CONSULT ---
Consult - text type - Consultation Consultation Note: Renal Consult for GEOFF This is a 87 year old woman with PMhx of IDDM, HTN, HLD, CHF, COPD who presented for evaluation of nausea, vomiting, cough and fevers and found to have GEOFF with Cr of 1.3. Pt has normal renal function at baseline. Pt reports poor oral intake. + Cough with productive sputum. N/V now improved. No Hx of CKD , Kidney stones or UTI. No NSAID use. No contrast exposure. No flank pain. No fever, chills. PMhx: as above Allergies: NKDA Family hx: NC Social Hx: No T/A/D ROS: as per HPI Home Medications Medication Instructions Recorded Acetaminophen [Tylenol .Regular 650 mg PO Q4H PRN #0 tablet 08/01/15 Strength -] Insulin (Levemir) [Levemir Vial] 15 units SQ AM ml 03/16/17 Insulin Sliding Scale [Novolog 1 vial SQ ACHS units 03/16/17 Vial Sliding Scale -] Polyethylene Glycol 3350 [Miralax 34 gm PO DAILY bottle 03/16/17 119 gm Btl -] Atorvastatin Ca [Lipitor] 40 mg PO HS 06/08/17 Furosemide [Lasix -] 40 mg PO DAILY 06/08/17 Levothyroxine [Synthroid -] 112 mcg PO DAILY 06/08/17 Metoclopramide HCl 5 mg PO DAILY 06/08/17 Ranitidine [Zantac -] 150 mg PO BID 06/08/17 Valsartan [Diovan] 160 mg PO DAILY 06/08/17 Vital Signs Temperature 98.2 F 06/09/17 15:24 Pulse Rate 88 06/09/17 15:24 Respiratory Rate 20 06/09/17 15:24 Blood Pressure 130/78 06/09/17 15:24 O2 Sat by Pulse Oximetry (%) 97 06/09/17 11:00 NAD but appears uncomfortable No JVd, MMM Neck supple RRR CTA soft NT/ND no LE edema CBC, BMP 06/09/17 08:30 06/09/17 08:30 87 year old woman with PMhx of IDDM, HTN, HLD, CHF, COPD who presented for evaluation of nausea, vomiting, cough and fevers and found to have GEOFF with Cr of 1.3. #Acute Kidney Injury in setting of volume depletion Pt with high bUN/Cr ratio, hemoconcentration and improvement in renal function with IVF indicative of pre-renal injury renal function improved and stable at this time trend BUN/Cr, electrolytes continue IVF for now no indication for renal imaging check UPCR as pt with 3+ proteinuria on UA Thank you David Olivares DO
[2017-06-09] MEDS ORDERED: INSULIN (NOVOLOG) ASPART 100 UNITS/ML 10ML VIAL ONE (21:43)
[2017-06-09] MEDS: INSULIN SLIDING SCALE (NOVOLOG) 1 VIAL SQ SCH (22:27)
--- NOTE | 2017-06-10 00:16 | CONSULT ---
Consult Consult Specialty:: endocrine Referred by:: deidre cristobal np Reason for Consultation:: diabetes mellitus - History of Present Illness Chief Complaint: nausea and vomiting History of Present Illness: 87 year old female, accompanied by family, with a significant past medical history of diabetes, hypertension, hyperlipidemia, hypothyroidism, COPD, CHF, and mitral valve prolapse, who presents to the emergency department with nausea , vomiting, fever, dry cough, sore throat, fatigue and generalized weakness for approximately 4 days. As per family, patient has had no chest pain, shortness of breath, diaphoresis, or palpitations. Patient has not complained of any abdominal pain, diarrhea, constipation, or bowel incontinence. She denies any dysuria, hematuria, frequency, urgency, has had elevated blood sugars no hypoglycemia,despite eating less since she was vomiting her sugars were higher than before. 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 2011 dobut MIBI: no STs ; moderate reversible defect anterior and lateral faith confounded by large breast shadow; nl EF -> pt didn't follow as outpt as planned (was on DATP for a little while). Echo 09/13: nl LVEF, nl RV, nl valve fxn), HTN, Hyperlipdemia Pulmonary: Yes: COPD Gastrointestinal: Yes: Constipation Endocrine: Yes: Diabetes Mellitus (insulin-dependent for years -> uncontrolled) , Hypothyroidism Dermatology: Yes: Cellulitis (in past, with chronic and intermittent edema) - Alcohol/Substance Use Hx Alcohol Use: No History of Substance Use: reports: None - Smoking History Smoking history: Never smoked Have you smoked in the past 12 months: No Aproximately how many cigarettes per day: 0 If you are a former smoker, when did you quit?: 1984 - Social History Usual Living Arrangement: With Spouse (who is on HD) History of Recent Travel: No Home Medications - Allergies Allergies/Adverse Reactions: Allergies Allergy/AdvReac Type Severity Reaction Status Date / Time No Known Allergies Allergy Verified 04/19/17 15:57 - Home Medications Home Medications: Ambulatory Orders Acetaminophen [Tylenol .Regular Strength -] 650 mg PO Q4H PRN #0 tablet Insulin (Levemir) [Levemir Vial] 15 units SQ AM ml 03/16/17 Insulin Sliding Scale [Novolog Vial Sliding Scale -] 1 vial SQ ACHS units 03/16 Polyethylene Glycol 3350 [Miralax 119 gm Btl -] 34 gm PO DAILY bottle 03/16/17 Atorvastatin Ca [Lipitor] 40 mg PO HS 06/08/17 Furosemide [Lasix -] 40 mg PO DAILY 06/08/17 Levothyroxine [Synthroid -] 112 mcg PO DAILY 06/08/17 Metoclopramide HCl 5 mg PO DAILY 06/08/17 Ranitidine [Zantac -] 150 mg PO BID 06/08/17 Valsartan [Diovan] 160 mg PO DAILY 06/08/17 Family Disease History - Family Disease History Family Disease History: Diabetes: Daughter Review of Systems - Review of Systems Constitutional: reports: Lethargy, Loss of Appetite, Unintentional Wgt. Loss, Weakness Eyes: reports: Blurred Vision HENT: reports: Difficult Swallowing, Throat Pain Neck: reports: Decreased ROM Cardiovascular: reports: Shortness of Breath Respiratory: reports: Cough, Exercise Intolerance, SOB, SOB on Exertion Gastrointestinal: reports: Constipation, Indigestion, Nausea Genitourinary: reports: Burning Breasts: reports: No Symptoms Reported Musculoskeletal: reports: Muscle Cramps, Muscle Weakness Neurological: reports: Numbness, Unsteady Gait Physical Exam Vital Signs: Vital Signs Temperature 98.6 F 06/09/17 21:00 Pulse Rate 94 H 06/09/17 21:00 Respiratory Rate 20 06/09/17 21:00 Blood Pressure 153/77 06/09/17 21:00 O2 Sat by Pulse Oximetry (%) 95 06/09/17 21:00 Constitutional: Yes: Anxious Eyes: Yes: EOM Intact HENT: Yes: Normocephalic Neck: Yes: Trachea Midline, Thyromegaly Cardiovascular: Yes: Regular Rate and Rhythm Respiratory: Yes: CTA Bilaterally Gastrointestinal: Yes: Normal Bowel Sounds ...Rectal Exam: Yes: Deferred Renal/: Yes: WNL Breast(s): Yes: WNL Musculoskeletal: Yes: WNL Extremities: Yes: WNL Neurological: Yes: Alert, Oriented Labs: CBC, BMP 06/09/17 08:30 06/09/17 08:30 Problem List - Problems (1) Type 2 diabetes mellitus with hyperglycemia Code(s): E11.65 - TYPE 2 DIABETES MELLITUS WITH HYPERGLYCEMIA (2) Nausea & vomiting Code(s): R11.2 - NAUSEA WITH VOMITING, UNSPECIFIED Qualifiers: Vomiting type: unspecified Vomiting Intractability: unspecified Qualified Code(s): R11.2 - Nausea with vomiting, unspecified (3) Abdominal pain Code(s): R10.9 - UNSPECIFIED ABDOMINAL PAIN (4) Acute renal failure Code(s): N17.9 - ACUTE KIDNEY FAILURE, UNSPECIFIED Qualifiers: Acute renal failure type: unspecified Qualified Code(s): N17.9 - Acute kidney failure, unspecified (5) Breast pain, left Code(s): N64.4 - MASTODYNIA Assessment/Plan Current Active Problems Epigastric abdominal tenderness (Acute) Nausea & vomiting (Acute) Nausea & vomiting (Acute) Sepsis (Acute) diabetes mellitus hyperglycemia \diabetic gastroparesis neuropathy Abnormal Lab Results 06/09/17 06/09/17 06/09/17 08:30 08:30 11:00 Hgb 15.4 H Potassium 3.3 L Random Glucose 226 H Hemoglobin A1c % 8.8 H Calcium 8.0 L Total Bilirubin 1.8 H D Total Protein 6.2 L Albumin 2.8 L Laboratory Results - last 24 hr 06/09/17 06/09/17 06/09/17 06:00 08:30 08:30 WBC 8.9 RBC 5.11 Hgb 15.4 H Hct 45.2 MCV 88.4 MCH 30.1 MCHC 34.0 RDW 14.9 Plt Count 154 MPV 9.8 Neutrophils % 75.5 Lymphocytes % 14.0 D Monocytes % 8.9 Eosinophils % 0.7 D Basophils % 0.9 Sodium 141 Potassium 3.3 L Chloride 103 Carbon Dioxide 28 Anion Gap 10 BUN 14 Creatinine 0.8 Creat Clearance w eGFR > 60 POC Glucometer 254 Random Glucose 226 H Hemoglobin A1c % Calcium 8.0 L Total Bilirubin 1.8 H D AST 16 ALT 13 Alkaline Phosphatase 86 Total Protein 6.2 L Albumin 2.8 L 06/09/17 06/09/17 06/09/17 10:35 11:00 16:39 WBC RBC Hgb Hct MCV MCH MCHC RDW Plt Count MPV Neutrophils % Lymphocytes % Monocytes % Eosinophils % Basophils % Sodium Potassium Chloride Carbon Dioxide Anion Gap BUN Creatinine Creat Clearance w eGFR POC Glucometer 188 119 Random Glucose Hemoglobin A1c % 8.8 H Calcium Total Bilirubin AST ALT Alkaline Phosphatase Total Protein Albumin 06/09/17 22:20 WBC RBC Hgb Hct MCV MCH MCHC RDW Plt Count MPV Neutrophils % Lymphocytes % Monocytes % Eosinophils % Basophils % Sodium Potassium Chloride Carbon Dioxide Anion Gap BUN Creatinine Creat Clearance w eGFR POC Glucometer 168 Random Glucose Hemoglobin A1c % Calcium Total Bilirubin AST ALT Alkaline Phosphatase Total Protein Albumin plan: bgm qid novolog insulin doses levemir dose 15 units am ck hba1c ck tsh free t4 metachlopropamide started for gastroparesis
[2017-06-10] MEDS: METOCLOPRAMIDE HCL INJECTION 10 MG/2 ML VIAL IVPB SCH ×3 (01:26→17:16)
[2017-06-10] MEDS: ONDANSETRON 4 MG/2 ML VIAL IVPB SCH ×5 (01:58→17:17)
[2017-06-10] MEDS: INSULIN SLIDING SCALE (NOVOLOG) 1 VIAL SQ SCH ×4 (06:21→21:07)
[2017-06-10] MEDS: INSULIN DETEMIR 100 UNITS/ML MDV SQ SCH (06:21)
[2017-06-10 07:32] LABS: BASO % 0.6 % (0-2.0); EOS % 4.1 % (0-4.5); HEMATOCRIT 42.2 % (32.4-45.2); HEMOGLOBIN 14.1 GM/dL (10.7-15.3); LYMPH % 24.2 % (8-40); MCH 29.8 pg (25.7-33.7); MCHC 33.4 g/dl (32.0-36.0); MEAN CELL VOLUME 89.5 fl (80-96); MEAN PLT VOLUME 10.2 fl (7.5-11.1); MONO % 10.7 % (3.8-10.2); NEUT % 60.4 % (42.8-82.8); PLATELET COUNT 131 K/MM3 (134-434); RBC 4.71 M/mm3 (3.60-5.2); RDW 14.5 % (11.6-15.6); WHITE BLOOD COUNT 7.1 K/mm3 (4.0-10.0)
[2017-06-10 08:13] LABS: CHLORIDE 104 mmol/L (98-107); POTASSIUM 3.3 mmol/L (3.5-5.1); SODIUM 141 mmol/L (136-145)
[2017-06-10 08:42] LABS: ALBUMIN 2.2 g/dl (3.4-5.0); ALK PHOS 65 U/L (45-117); ANION GAP 14 (8-16); BILIRUBIN,TOTAL 1.7 mg/dL (0.2-1.0); BLOOD UREA NITROGEN 5 mg/dL (7-18); CO2 23 mmol/L (21-32); CREATININE 0.6 mg/dL (0.55-1.02); GLUCOSE,RANDOM 153 mg/dL (74-106); SGOT/AST 19 U/L (15-37); SGPT/ALT 12 U/L (12-78); TOT PROT 5.1 g/dl (6.4-8.2)
[2017-06-10] MEDS: SODIUM CHLORIDE 0.9%/KCL 20 MEQ/1,000 ML INFUS.BAG IV SCH ×2 (09:20→12:22)
[2017-06-10] MEDS: HEPARIN NA (PORCINE) 5,000 UNITS/ML 1ML VIAL SQ SCH ×2 (09:21→21:01)
[2017-06-10] MEDS: PANTOPRAZOLE SODIUM 40 MG VIAL IVPUSH SCH ×2 (09:21→21:01)
[2017-06-10 10:16] LABS: CARCINOEMBRYONIC ANTIGEN 1.9 ng/mL (0.0-4.7)
--- NOTE | 2017-06-10 10:17 | PN ---
Progress Note, Physician - Current Medication List Current Medications: Active Medications Acetaminophen (Tylenol Suppository -) 650 mg TN Q4H PRN PRN Reason: FEVER Last Admin: 06/10/17 04:17 Dose: 650 mg Dextrose (D50w (Syringe) -) 25 gm IVPUSH PRN PRN PRN Reason: hypoglycemia Heparin Sodium (Porcine) (Heparin -) 5,000 unit SQ BID [facility] Last Admin: 06/10/17 09:21 Dose: 5,000 unit CEFTRIAXONE IN IS-OSM DEXTROSE (Ceftriaxone 2 Gm-D5w Bag) 2 gm in 50 mls @ 100 mls/hr IVPB DAILY [facility] Last Admin: 06/09/17 11:46 Dose: 100 mls/hr Potassium Chloride/Sodium Chloride (Ns+20 Meq Kcl -) 20 meq in 1,000 mls @ 75 mls/hr IV ASDIR [facility] Last Admin: 06/10/17 09:20 Dose: 75 mls/hr Insulin Aspart (Novolog Vial Sliding Scale -) 1 vial SQ ACHS [facility]I PRN Reason: Protocol Last Admin: 06/10/17 06:21 Dose: Not Given Insulin Detemir (Levemir Vial) 15 units SQ AM [facility] Last Admin: 06/10/17 06:21 Dose: 15 units Levothyroxine Sodium (Synthroid Injection -) 84 mcg IVPUSH DAILY [facility] Last Admin: 06/09/17 11:50 Dose: 84 mcg Metoclopramide HCl (Reglan Injection -) 10 mg IVPB Q8H-IV [facility] Last Admin: 06/10/17 09:25 Dose: 10 mg Metoprolol Tartrate (Lopressor Injection -) 5 mg IVPUSH Q4H PRN PRN Reason: HYPERTENSION Ondansetron HCl (Zofran Injection) 4 mg IVPB Q4H-IV [facility] Last Admin: 06/10/17 09:21 Dose: Not Given Pantoprazole Sodium (Protonix Iv) 40 mg IVPUSH BID [facility] Last Admin: 06/10/17 09:21 Dose: 40 mg Potassium Chloride (K-Dur -) 40 meq PO ONCE ONE Stop: 06/10/17 11:01 - Objective Vital Signs: Vital Signs Temperature 98.4 F 06/10/17 09:00 Pulse Rate 86 06/10/17 09:00 Respiratory Rate 18 06/10/17 09:00 Blood Pressure 139/82 06/10/17 09:00 O2 Sat by Pulse Oximetry (%) 95 06/09/17 21:00 Cardiovascular: Yes: S1, S2 Respiratory: Yes: Regular, CTA Bilaterally Gastrointestinal: Yes: Normal Bowel Sounds, Soft. No: Tenderness Labs: CBC, BMP 06/10/17 06:00 06/10/17 06:00 INR, PTT INR 1.14 (0.82-1.09) 06/08/17 13:29 Assessment/Plan - Problems (1) Nausea & vomiting Assessment/Plan: -2/2 to gastroparesis -seen by GI -Zofran Code(s): R11.2 - NAUSEA WITH VOMITING, UNSPECIFIED Qualifiers: Vomiting type: unspecified Vomiting Intractability: unspecified Qualified Code(s): R11.2 - Nausea with vomiting, unspecified (2) Abdominal pain Assessment/Plan: -no abdominal pain at this time -Await Ca antigen Code(s): R10.9 - UNSPECIFIED ABDOMINAL PAIN (3) Dehydration Assessment/Plan: -dehydration improved -decrease IVF Code(s): E86.0 - DEHYDRATION (4) Diabetes mellitus, insulin dependent (IDDM), uncontrolled Assessment/Plan: -Endocrine consult -Insulin -restart clear liquids diabetic, once more awake Code(s): E10.65 - TYPE 1 DIABETES MELLITUS WITH HYPERGLYCEMIA Qualifiers: Diabetes mellitus complication status: with unspecified complications Qualified Code(s): E10.8 - Type 1 diabetes mellitus with unspecified complications (5) Gastroparesis Assessment/Plan: -seen by GI -CT abd reviewed -endocrine consult -Insulin Code(s): K31.84 - GASTROPARESIS
[2017-06-10] MEDS ORDERED: POTASSIUM CHLORIDE TABS 10 MEQ TABLET.ER (FP) PO ONE (11:00)
[2017-06-10] MEDS: CEFTRIAXONE IN IS-OSM DEXTROSE 2 GM/50 ML BAG IVPB SCH (12:18)
--- NOTE | 2017-06-10 12:29 | PN ---
Progress Note (short form) - Note Progress Note: Renal follow up for GEOFF Pt seen and examined at the bedside awake and alert report still have some N and abd discomfort no fever, chills making urine Vital Signs Temperature 98.4 F 06/10/17 09:00 Pulse Rate 86 06/10/17 09:00 Respiratory Rate 18 06/10/17 09:00 Blood Pressure 139/82 06/10/17 09:00 O2 Sat by Pulse Oximetry (%) 95 06/09/17 21:00 Intake & Output 06/07/17 06/08/17 06/09/17 06/10/17 23:59 23:59 23:59 23:59 Intake Total 950 1975 775 Output Total 200 1250 1150 Balance 750 725 -375 Weight 94.03 kg 91.739 kg 94.03 kg NAD but appears uncomfortable No JVd, MMM Neck supple RRR CTA soft NT/ND no LE edema CBC, BMP 06/10/17 06:00 06/10/17 06:00 Current Medications Acetaminophen (Tylenol Suppository -) 650 mg NH Q4H PRN PRN Reason: FEVER Last Admin: 06/10/17 04:17 Dose: 650 mg Dextrose (D50w (Syringe) -) 25 gm IVPUSH PRN PRN PRN Reason: hypoglycemia Heparin Sodium (Porcine) (Heparin -) 5,000 unit SQ BID [facility]I Last Admin: 06/10/17 09:21 Dose: 5,000 unit CEFTRIAXONE IN IS-OSM DEXTROSE (Ceftriaxone 2 Gm-D5w Bag) 2 gm in 50 mls @ 100 mls/hr IVPB DAILY [facility] Last Admin: 06/10/17 12:18 Dose: 100 mls/hr Potassium Chloride/Sodium Chloride (Ns+20 Meq Kcl -) 20 meq in 1,000 mls @ 75 mls/hr IV ASDIR [facility] Last Admin: 06/10/17 12:22 Dose: Not Given Insulin Aspart (Novolog Vial Sliding Scale -) 1 vial SQ ACHS [facility] PRN Reason: Protocol Last Admin: 06/10/17 12:25 Dose: Not Given Insulin Detemir (Levemir Vial) 15 units SQ AM [facility] Last Admin: 06/10/17 06:21 Dose: 15 units Levothyroxine Sodium (Synthroid Injection -) 84 mcg IVPUSH DAILY [facility] Last Admin: 06/09/17 11:50 Dose: 84 mcg Metoclopramide HCl (Reglan Injection -) 10 mg IVPB Q8H-IV [facility] Last Admin: 06/10/17 09:25 Dose: 10 mg Metoprolol Tartrate (Lopressor Injection -) 5 mg IVPUSH Q4H PRN PRN Reason: HYPERTENSION Ondansetron HCl (Zofran Injection) 4 mg IVPB Q4H-IV [facility] Last Admin: 06/10/17 09:21 Dose: Not Given Pantoprazole Sodium (Protonix Iv) 40 mg IVPUSH BID [facility] Last Admin: 06/10/17 09:21 Dose: 40 mg 87 year old woman with PMhx of IDDM, HTN, HLD, CHF, COPD who presented for evaluation of nausea, vomiting, cough and fevers and found to have GEOFF with Cr of 1.3. #Acute Kidney Injury in setting of volume depletion Renal function is improved and stable continue to montior BUN/Cr as inpatient continue IVF as needed will give additional PO KCL today urine studies pending Thank you David Olivares DO
[2017-06-10] MEDS ORDERED: ONDANSETRON 4 MG/2 ML VIAL IVPB STA (18:44)
--- NOTE | 2017-06-10 19:42 | PN ---
GI Progress Note Subjective: no abdominal pain,nausea and vomiting improved, still with poor appetite possibly Alzheimer's disease - Objective Vital Signs: Vital Signs Temperature 98.1 F 06/10/17 18:26 Pulse Rate 82 06/10/17 18:26 Respiratory Rate 18 06/10/17 18:26 Blood Pressure 156/80 06/10/17 18:26 O2 Sat by Pulse Oximetry (%) 95 06/10/17 09:00 Constitutional: Obese Eyes: Yes: Conjunctiva Clear HENT: Yes: Normocephalic Neck: Yes: Trachea Midline Cardiovascular: Yes: Regular Rate and Rhythm Respiratory: Yes: CTA Bilaterally ...Palpate: Yes: Soft. No: Firm/Rigid, Guarding, Hepatomegaly, Mass, Pulsatile Mass, Splenomegaly, Tenderness, Tenderness, Epigastium Labs: CBC, BMP 06/10/17 06:00 06/10/17 06:00 INR, PTT INR 1.14 (0.82-1.09) 06/08/17 13:29 Problem List - Problems (1) Nausea & vomiting Assessment/Plan: conitinue Zofran advance diet as tolerated Code(s): R11.2 - NAUSEA WITH VOMITING, UNSPECIFIED Qualifiers: Vomiting type: unspecified Vomiting Intractability: unspecified Qualified Code(s): R11.2 - Nausea with vomiting, unspecified (2) Constipation Code(s): K59.00 - CONSTIPATION, UNSPECIFIED Qualifiers: Constipation type: unspecified constipation type Qualified Code(s): K59.00 - Constipation, unspecified (3) Dehydration Code(s): E86.0 - DEHYDRATION (4) Epigastric abdominal pain Assessment/Plan: resolved R> continue PPI Code(s): R10.13 - EPIGASTRIC PAIN
[2017-06-10] MEDS: LACTULOSE 20 GM/30 ML UDC (FOR ORAL USE ONLY) PO SCH (21:01)
[2017-06-10] MEDS: ONDANSETRON 4 MG/2 ML VIAL IVPUSH SCH (21:01)
[2017-06-11] MEDS: ONDANSETRON 4 MG/2 ML VIAL IVPUSH SCH ×3 (01:06→07:35)
[2017-06-11] MEDS: METOCLOPRAMIDE HCL INJECTION 10 MG/2 ML VIAL IVPB SCH ×3 (04:35→17:20)
[2017-06-11] MEDS: INSULIN SLIDING SCALE (NOVOLOG) 1 VIAL SQ SCH ×4 (06:57→21:01)
[2017-06-11] MEDS: INSULIN DETEMIR 100 UNITS/ML MDV SQ SCH (06:59)
[2017-06-11] MEDS ORDERED: ONDANSETRON 4 MG/2 ML VIAL IVPUSH PRN (07:01)
[2017-06-11 08:25] LABS: ALBUMIN 2.3 g/dl (3.4-5.0); ANION GAP 9 (8-16); BILIRUBIN,TOTAL 1.3 mg/dL (0.2-1.0); BLOOD UREA NITROGEN 4 mg/dL (7-18); CALCIUM 7.5 mg/dL (8.5-10.1); CHLORIDE 108 mmol/L (98-107); CO2 25 mmol/L (21-32); GLUCOSE,RANDOM 167 mg/dL (74-106); POTASSIUM 3.9 mmol/L (3.5-5.1); SGOT/AST 16 U/L (15-37); SGPT/ALT 12 U/L (12-78); SODIUM 142 mmol/L (136-145); TOT PROT 4.9 g/dl (6.4-8.2)
[2017-06-11 08:36] LABS: ALK PHOS 71 U/L (45-117); CREATININE 0.7 mg/dL (0.55-1.02)
[2017-06-11] MEDS: HEPARIN NA (PORCINE) 5,000 UNITS/ML 1ML VIAL SQ SCH ×2 (09:29→21:01)
[2017-06-11] MEDS: PANTOPRAZOLE SODIUM 40 MG VIAL IVPUSH SCH (09:29)
[2017-06-11] MEDS: LACTULOSE 20 GM/30 ML UDC (FOR ORAL USE ONLY) PO SCH (09:30)
[2017-06-11] MEDS ORDERED: PT OWN MED DRAWER 7, Y5N ONE (10:01)
--- NOTE | 2017-06-11 10:12 | PN ---
Progress Note, Physician - Current Medication List Current Medications: Active Medications Acetaminophen (Tylenol Suppository -) 650 mg [place] Q4H PRN PRN Reason: FEVER Last Admin: 06/10/17 04:17 Dose: 650 mg Dextrose (D50w (Syringe) -) 25 gm IVPUSH PRN PRN PRN Reason: hypoglycemia Heparin Sodium (Porcine) (Heparin -) 5,000 unit SQ BID [facility] Last Admin: 06/11/17 09:29 Dose: 5,000 unit CEFTRIAXONE IN IS-OSM DEXTROSE (Ceftriaxone 2 Gm-D5w Bag) 2 gm in 50 mls @ 100 mls/hr IVPB DAILY [facility] Last Admin: 06/10/17 12:18 Dose: 100 mls/hr Potassium Chloride/Sodium Chloride (Ns+20 Meq Kcl -) 20 meq in 1,000 mls @ 75 mls/hr IV ASDIR [facility] Last Admin: 06/10/17 12:22 Dose: Not Given Insulin Aspart (Novolog Vial Sliding Scale -) 1 vial SQ ACHS [facility] PRN Reason: Protocol Last Admin: 06/11/17 06:57 Dose: 2 units Insulin Detemir (Levemir Vial) 15 units SQ AM [facility] Last Admin: 06/11/17 06:59 Dose: 15 units Lactulose (Cephulac (Oral Use)) 20 gm PO DAILY [facility] Last Admin: 06/11/17 09:30 Dose: Not Given Levothyroxine Sodium (Synthroid Injection -) 84 mcg IVPUSH DAILY [facility] Last Admin: 06/09/17 11:50 Dose: 84 mcg Metoclopramide HCl (Reglan Injection -) 10 mg IVPB Q8H-IV [facility] Last Admin: 06/11/17 04:35 Dose: 10 mg Metoprolol Tartrate (Lopressor Injection -) 5 mg IVPUSH Q4H PRN PRN Reason: HYPERTENSION Ondansetron HCl (Zofran Injection) 4 mg IVPUSH Q4H PRN PRN Reason: NAUSEA AND/OR VOMITING Pantoprazole Sodium (Protonix Iv) 40 mg IVPUSH BID [facility] Last Admin: 06/11/17 09:29 Dose: 40 mg - Objective Vital Signs: Vital Signs Temperature 98.2 F 06/11/17 09:23 Pulse Rate 86 06/11/17 03:00 Respiratory Rate 87 H 06/11/17 09:23 Blood Pressure 164/70 06/11/17 09:23 O2 Sat by Pulse Oximetry (%) 96 06/10/17 21:00 Cardiovascular: Yes: Regular Rate and Rhythm Respiratory: Yes: Regular, CTA Bilaterally Gastrointestinal: Yes: Normal Bowel Sounds, Soft. No: Tenderness Labs: CBC, BMP 06/11/17 06:48 INR, PTT INR 1.14 (0.82-1.09) 06/08/17 13:29 Assessment/Plan - Problems (1) Nausea & vomiting Assessment/Plan: -resolved -2/2 to gastroparesis -seen by GI -Zofran -dc ivf Code(s): R11.2 - NAUSEA WITH VOMITING, UNSPECIFIED Qualifiers: Vomiting type: unspecified Vomiting Intractability: unspecified Qualified Code(s): R11.2 - Nausea with vomiting, unspecified (2) Abdominal pain Assessment/Plan: -no abdominal pain at this time -Await Ca antigen Code(s): R10.9 - UNSPECIFIED ABDOMINAL PAIN (3) Dehydration Assessment/Plan: -dehydration improved -dc IVF Code(s): E86.0 - DEHYDRATION (4) Diabetes mellitus, insulin dependent (IDDM), uncontrolled Assessment/Plan: -Endocrine consult -Insulin -restart clear liquids diabetic, once more awake Code(s): E10.65 - TYPE 1 DIABETES MELLITUS WITH HYPERGLYCEMIA Qualifiers: Diabetes mellitus complication status: with unspecified complications Qualified Code(s): E10.8 - Type 1 diabetes mellitus with unspecified complications (5) Gastroparesis Assessment/Plan: -seen by GI -CT abd reviewed -endocrine consult -Insulin Code(s): K31.84 - GASTROPARESIS
[2017-06-11 10:16] LABS: BASO % 0.9 % (0-2.0); EOS % 6.7 % (0-4.5); HEMATOCRIT 41.6 % (32.4-45.2); LYMPH % 22.9 % (8-40); MCH 29.9 pg (25.7-33.7); MCHC 33.6 g/dl (32.0-36.0); MEAN PLT VOLUME 9.6 fl (7.5-11.1); MONO % 11.8 % (3.8-10.2); NEUT % 57.7 % (42.8-82.8); PLATELET COUNT 125 K/MM3 (134-434); RBC 4.67 M/mm3 (3.60-5.2); RDW 14.7 % (11.6-15.6); WHITE BLOOD COUNT 7.7 K/mm3 (4.0-10.0)
[2017-06-11] MEDS: LEVOTHYROXINE SODIUM 100 MCG VIAL IVPUSH SCH (10:47)
[2017-06-11] MEDS: CEFTRIAXONE IN IS-OSM DEXTROSE 2 GM/50 ML BAG IVPB SCH (12:16)
[2017-06-11] MEDS: SODIUM CHLORIDE 0.9%/KCL 20 MEQ/1,000 ML INFUS.BAG IV SCH (17:36)
[2017-06-11] MEDS: PANTOPRAZOLE 40 MG TABLET (FP) PO SCH (21:01)
--- NOTE | 2017-06-11 23:28 | PN ---
Progress Note, Physician Chief Complaint: feel nauseas yet eating History of Present Illness: dm,htn,ashd,copd,chf,dementia,morbid obesity,gastroparesis,hypothyroidism - Current Medication List Current Medications: Active Medications Acetaminophen (Tylenol Suppository -) 650 mg [place] Q4H PRN PRN Reason: FEVER Last Admin: 06/10/17 04:17 Dose: 650 mg Dextrose (D50w (Syringe) -) 25 gm IVPUSH PRN PRN PRN Reason: hypoglycemia Heparin Sodium (Porcine) (Heparin -) 5,000 unit SQ BID [facility] Last Admin: 06/11/17 21:01 Dose: 5,000 unit CEFTRIAXONE IN IS-OSM DEXTROSE (Ceftriaxone 2 Gm-D5w Bag) 2 gm in 50 mls @ 100 mls/hr IVPB DAILY [facility] Last Admin: 06/11/17 12:16 Dose: 100 mls/hr Insulin Aspart (Novolog Vial Sliding Scale -) 1 vial SQ ACHS [facility] PRN Reason: Protocol Last Admin: 06/11/17 21:01 Dose: 3 units Insulin Detemir (Levemir Vial) 15 units SQ AM [facility] Last Admin: 06/11/17 06:59 Dose: 15 units Lactulose (Cephulac (Oral Use)) 20 gm PO DAILY [facility] Last Admin: 06/11/17 09:30 Dose: Not Given Levothyroxine Sodium (Synthroid Injection -) 84 mcg IVPUSH DAILY [facility] Last Admin: 06/11/17 10:47 Dose: 84 mcg Metoclopramide HCl (Reglan Injection -) 10 mg IVPB Q8H-IV [facility] Last Admin: 06/11/17 17:20 Dose: 10 mg Metoprolol Tartrate (Lopressor Injection -) 5 mg IVPUSH Q4H PRN PRN Reason: HYPERTENSION Ondansetron HCl (Zofran Injection) 4 mg IVPUSH Q4H PRN PRN Reason: NAUSEA AND/OR VOMITING Last Admin: 06/11/17 21:01 Dose: 4 mg Pantoprazole Sodium (Protonix -) 40 mg PO BID [facility] Last Admin: 06/11/17 21:01 Dose: 40 mg - Objective Vital Signs: Vital Signs Temperature 98.3 F 06/11/17 18:46 Pulse Rate 84 06/11/17 18:46 Respiratory Rate 20 06/11/17 21:00 Blood Pressure 137/76 06/11/17 18:46 O2 Sat by Pulse Oximetry (%) 94 L 06/11/17 21:00 Constitutional: Yes: Calm Eyes: Yes: EOM Intact HENT: Yes: Normocephalic Neck: Yes: Trachea Midline Cardiovascular: Yes: Regular Rate and Rhythm Respiratory: Yes: CTA Bilaterally Gastrointestinal: Yes: Normal Bowel Sounds ...Rectal Exam: Yes: Deferred Genitourinary: Yes: WNL Breast(s): Yes: WNL Musculoskeletal: Yes: Muscle Pain, Muscle Weakness Extremities: Yes: Delayed Capillary Refill, Erythema Edema: LLE: 1+, RLE: 1+ Neurological: Yes: Alert, Loss of Sensation, Pre-Existing Deficit, Weakness Labs: CBC, BMP 06/11/17 10:00 06/11/17 06:48 INR, PTT INR 1.14 (0.82-1.09) 06/08/17 13:29 Problem List - Problems (1) Type 2 diabetes mellitus with hyperglycemia Code(s): E11.65 - TYPE 2 DIABETES MELLITUS WITH HYPERGLYCEMIA (2) Nausea & vomiting Code(s): R11.2 - NAUSEA WITH VOMITING, UNSPECIFIED Qualifiers: Vomiting type: unspecified Vomiting Intractability: unspecified Qualified Code(s): R11.2 - Nausea with vomiting, unspecified (3) Abdominal pain Code(s): R10.9 - UNSPECIFIED ABDOMINAL PAIN (4) Acute renal failure Code(s): N17.9 - ACUTE KIDNEY FAILURE, UNSPECIFIED Qualifiers: Acute renal failure type: unspecified Qualified Code(s): N17.9 - Acute kidney failure, unspecified (5) Breast pain, left Code(s): N64.4 - MASTODYNIA Assessment/Plan Current Active Problems Epigastric abdominal tenderness (Acute) Nausea & vomiting (Acute) Nausea & vomiting (Acute) Sepsis (Acute) Type 2 diabetes mellitus with hyperglycemia (Acute) dementia hypothyroidism Abnormal Lab Results 06/11/17 06/11/17 06/11/17 06:34 06:48 10:00 Plt Count 125 L Monocytes % 11.8 H Eosinophils % 6.7 H Chloride 108 H BUN 4 L Random Glucose 167 H Hemoglobin A1c % 9.1 H Calcium 7.5 L Total Bilirubin 1.3 H D Total Protein 4.9 L Albumin 2.3 L Free T4 1.49 H Laboratory Results - last 24 hr 06/11/17 06/11/17 06/11/17 06:34 06:48 06:49 WBC RBC Hgb Hct MCV MCH MCHC RDW Plt Count MPV Neutrophils % Lymphocytes % Monocytes % Eosinophils % Basophils % Sodium 142 Potassium 3.9 Chloride 108 H Carbon Dioxide 25 Anion Gap 9 BUN 4 L Creatinine 0.7 Creat Clearance w eGFR > 60 POC Glucometer 173 Random Glucose 167 H Hemoglobin A1c % 9.1 H Calcium 7.5 L Total Bilirubin 1.3 H D AST 16 ALT 12 Alkaline Phosphatase 71 Total Protein 4.9 L Albumin 2.3 L TSH 0.84 Free T4 1.49 H 06/11/17 06/11/17 06/11/17 10:00 12:11 17:24 WBC 7.7 RBC 4.67 Hgb 14.0 Hct 41.6 MCV 89.0 MCH 29.9 MCHC 33.6 RDW 14.7 Plt Count 125 L MPV 9.6 Neutrophils % 57.7 Lymphocytes % 22.9 Monocytes % 11.8 H Eosinophils % 6.7 H Basophils % 0.9 Sodium Potassium Chloride Carbon Dioxide Anion Gap BUN Creatinine Creat Clearance w eGFR POC Glucometer 127 145 Random Glucose Hemoglobin A1c % Calcium Total Bilirubin AST ALT Alkaline Phosphatase Total Protein Albumin TSH Free T4 06/11/17 20:45 WBC RBC Hgb Hct MCV MCH MCHC RDW Plt Count MPV Neutrophils % Lymphocytes % Monocytes % Eosinophils % Basophils % Sodium Potassium Chloride Carbon Dioxide Anion Gap BUN Creatinine Creat Clearance w eGFR POC Glucometer 170 Random Glucose Hemoglobin A1c % Calcium Total Bilirubin AST ALT Alkaline Phosphatase Total Protein Albumin TSH Free T4 Laboratory Tests 02/10/17 02/11/17 02/11/17 22:03 06:13 11:48 Sodium Potassium Chloride Carbon Dioxide Anion Gap BUN Creatinine Creat Clearance w eGFR POC Glucometer 147 135 123 Random Glucose Hemoglobin A1c % Calcium TSH Free T4 02/11/17 06/11/17 06/11/17 17:15 06:34 06:48 Sodium 142 Potassium 3.9 Chloride 108 H Carbon Dioxide 25 Anion Gap 9 BUN 4 L Creatinine 0.7 Creat Clearance w eGFR > 60 POC Glucometer 162 Random Glucose 167 H Hemoglobin A1c % 9.1 H Calcium 7.5 L TSH 0.84 Free T4 1.49 H 06/11/17 06/11/17 06:49 12:11 Sodium Potassium Chloride Carbon Dioxide Anion Gap BUN Creatinine Creat Clearance w eGFR POC Glucometer 173 127 Random Glucose Hemoglobin A1c % Calcium TSH Free T4 plan: bgm qid novolog insulin dose synthroid 112 mcg daily levemir 20 units am
[2017-06-12] MEDS: METOCLOPRAMIDE HCL INJECTION 10 MG/2 ML VIAL IVPB SCH ×2 (04:18→10:16)
[2017-06-12] MEDS: INSULIN SLIDING SCALE (NOVOLOG) 1 VIAL SQ SCH ×4 (05:59→21:26)
[2017-06-12] MEDS: LEVOTHYROXINE NA 112 MCG TABLET (FP) PO SCH (06:12)
[2017-06-12] MEDS: INSULIN DETEMIR 100 UNITS/ML MDV SQ SCH (06:14)
[2017-06-12 08:32] LABS: ANION GAP 12 (8-16); BLOOD UREA NITROGEN 3 mg/dL (7-18); CALCIUM 7.8 mg/dL (8.5-10.1); CHLORIDE 107 mmol/L (98-107); CO2 23 mmol/L (21-32); CREATININE 0.6 mg/dL (0.55-1.02); GLUCOSE,RANDOM 83 mg/dL (74-106); SODIUM 142 mmol/L (136-145); TOT PROT 4.9 g/dl (6.4-8.2)
[2017-06-12 08:33] LABS: ALBUMIN 2.1 g/dl (3.4-5.0); ALK PHOS 69 U/L (45-117); SGPT/ALT 12 U/L (12-78)
[2017-06-12 08:58] LABS: POTASSIUM 3.4 mmol/L (3.5-5.1); SGOT/AST 17 U/L (15-37)
--- NOTE | 2017-06-12 09:50 | PN ---
Progress Note (short form) - Note Progress Note: Neurology History of Present Illness: The patient is an 87 year old female with a history of IDDM, HTN, HLD, CHF, COPD who presented for evaluation of nausea, vomiting, cough and fevers. Justyn has been seen by GI for gastroperesis as she reported several days of nausea with multiple episodes of non-bilious, non-bloody vomiting with an associated sore throat and non-productive cough. ID also following and patient has been on Ceftriaxone course. She noted fevers and generalized weakness throughout this time period as well prompting their presentation to the ED for evaluation. CT head completed in Apr and reviewed and without acute changes. Reported feeling well this AM and more awake and alert for me. Active Medications Acetaminophen (Tylenol Suppository -) 650 mg [place] Q4H PRN PRN Reason: FEVER Last Admin: 06/10/17 04:17 Dose: 650 mg Dextrose (D50w (Syringe) -) 25 gm IVPUSH PRN PRN PRN Reason: hypoglycemia Heparin Sodium (Porcine) (Heparin -) 5,000 unit SQ BID [facility] Last Admin: 06/11/17 21:01 Dose: 5,000 unit CEFTRIAXONE IN IS-OSM DEXTROSE (Ceftriaxone 2 Gm-D5w Bag) 2 gm in 50 mls @ 100 mls/hr IVPB DAILY [facility] Last Admin: 06/11/17 12:16 Dose: 100 mls/hr Insulin Aspart (Novolog Vial Sliding Scale -) 1 vial SQ ACHS [facility] PRN Reason: Protocol Last Admin: 06/12/17 05:59 Dose: Not Given Insulin Detemir (Levemir Vial) 15 units SQ AM [facility] Last Admin: 06/12/17 06:14 Dose: 15 units Lactulose (Cephulac (Oral Use)) 20 gm PO DAILY [facility] Last Admin: 06/11/17 09:30 Dose: Not Given Levothyroxine Sodium (Synthroid -) 112 mcg PO DAILY@0700 [facility] Last Admin: 06/12/17 06:12 Dose: 112 mcg Metoclopramide HCl (Reglan Injection -) 10 mg IVPB Q8H-IV [facility] Last Admin: 06/12/17 04:18 Dose: 10 mg Metoprolol Tartrate (Lopressor Injection -) 5 mg IVPUSH Q4H PRN PRN Reason: HYPERTENSION Ondansetron HCl (Zofran Injection) 4 mg IVPUSH Q4H PRN PRN Reason: NAUSEA AND/OR VOMITING Last Admin: 06/11/17 21:01 Dose: 4 mg Pantoprazole Sodium (Protonix -) 40 mg PO BID [facility] Last Admin: 06/11/17 21:01 Dose: 40 mg Physical Examination Vital Signs Period Temp Pulse Resp BP Sys/Gu Pulse Ox Last 24 Hr 97.4 F-98.7 F 84-91 20-87 137-156/68-83 94-96 Constitutional: Yes: Well Nourished, No Distress, Calm Cardiovascular: Yes: Regular Rate and Rhythm Respiratory: Yes: Regular Gastrointestinal: Yes: Soft, Hypoactive Bowel Sounds Musculoskeletal: Yes: WNL Extremities: Yes: WNL Edema: No Peripheral Pulses WNL: Yes Neurological: Awake, alert, but faiguted, CN intact, moves all extremities, sensory intact, gait deferred CBCD WBC 7.7 K/mm3 (4.0-10.0) 06/11/17 10:00 RBC 4.67 M/mm3 (3.60-5.2) 06/11/17 10:00 Hgb 14.0 GM/dL (10.7-15.3) 06/11/17 10:00 Hct 41.6 % (32.4-45.2) 06/11/17 10:00 MCV 89.0 fl (80-96) 06/11/17 10:00 MCHC 33.6 g/dl (32.0-36.0) 06/11/17 10:00 RDW 14.7 % (11.6-15.6) 06/11/17 10:00 Plt Count 125 K/MM3 (134-434) L 06/11/17 10:00 MPV 9.6 fl (7.5-11.1) 06/11/17 10:00 CMP Sodium 142 mmol/L (136-145) 06/12/17 07:35 Potassium 3.4 mmol/L (3.5-5.1) L 06/12/17 07:35 Chloride 107 mmol/L (98-107) 06/12/17 07:35 Carbon Dioxide 23 mmol/L (21-32) 06/12/17 07:35 Anion Gap 12 (8-16) 06/12/17 07:35 BUN 3 mg/dL (7-18) L 06/12/17 07:35 Creatinine 0.6 mg/dL (0.55-1.02) 06/12/17 07:35 Creat Clearance w eGFR > 60 (>60) 06/12/17 07:35 Calcium 7.8 mg/dL (8.5-10.1) L 06/12/17 07:35 Total Bilirubin 1.0 mg/dL (0.2-1.0) D 06/12/17 07:35 AST 17 U/L (15-37) 06/12/17 07:35 ALT 12 U/L (12-78) 06/12/17 07:35 Alkaline Phosphatase 69 U/L (45-117) 06/12/17 07:35 Total Protein 4.9 g/dl (6.4-8.2) L 06/12/17 07:35 Albumin 2.1 g/dl (3.4-5.0) L 06/12/17 07:35 Imaging - Results Chest X-ray: Report Reviewed CT Head: report reviewed Plan: 87 year old female with a history of IDDM, HTN, HLD, CHF, COPD who presented for evaluation of nausea, vomiting, cough and fevers. She has been seen by GI for gastroperesis as she reported several days of nausea with multiple episodes of non-bilious, non-bloody vomiting with an associated sore throat and non- productive cough. ID following and patient has been on Ceftriaxone GI followup, continue antiemetics, Reglan/Zofran Possibly 2/2 dehydration/deconditioning Mental status appears to be better than prior Gradual improvement Continue IV/PO intake CT head completed recently and without acute changes, will hold off for now, if not improving then can recheck Ongoing gastroparesis Monitor DM, maintain euglycemic range, avoid hyper/hypoglycemia Monitor blood pressure, maintain normotensive range
[2017-06-12] MEDS ORDERED: PT OWN MED DRAWER 7, Y5N ONE (10:13)
[2017-06-12] MEDS: HEPARIN NA (PORCINE) 5,000 UNITS/ML 1ML VIAL SQ SCH ×2 (10:16→21:25)
[2017-06-12] MEDS ORDERED: CEFTRIAXONE 2 GM in DEXTROSE 5%-WATER - 100 ML IVPB SCH (10:16)
[2017-06-12] MEDS: PANTOPRAZOLE 40 MG TABLET (FP) PO SCH ×2 (10:17→21:25)
[2017-06-12] MEDS: LACTULOSE 20 GM/30 ML UDC (FOR ORAL USE ONLY) PO SCH (10:17)
--- NOTE | 2017-06-12 10:47 | PN ---
Progress Note, Physician History of Present Illness: Awake but lethargic Weak appearing C/O epigastric discomfort Denies N/V, diarrhea Afebrile WBC WNL BC no growth Urine c/s (-) - Current Medication List Current Medications: Active Medications Acetaminophen (Tylenol Suppository -) 650 mg [place] Q4H PRN PRN Reason: FEVER Last Admin: 06/10/17 04:17 Dose: 650 mg Dextrose (D50w (Syringe) -) 25 gm IVPUSH PRN PRN PRN Reason: hypoglycemia Heparin Sodium (Porcine) (Heparin -) 5,000 unit SQ BID [facility] Last Admin: 06/12/17 10:16 Dose: 5,000 unit Ceftriaxone Sodium 2 gm/ (Dextrose) 100 mls @ 200 mls/hr IVPB DAILY [facility] Insulin Aspart (Novolog Vial Sliding Scale -) 1 vial SQ ACHS [facility] PRN Reason: Protocol Last Admin: 06/12/17 05:59 Dose: Not Given Insulin Detemir (Levemir Vial) 15 units SQ AM [facility] Last Admin: 06/12/17 06:14 Dose: 15 units Lactulose (Cephulac (Oral Use)) 20 gm PO DAILY [facility] Last Admin: 06/12/17 10:17 Dose: 20 gm Levothyroxine Sodium (Synthroid -) 112 mcg PO DAILY@0700 [facility] Last Admin: 06/12/17 06:12 Dose: 112 mcg Metoclopramide HCl (Reglan Injection -) 10 mg IVPB Q8H-IV [facility] Last Admin: 06/12/17 10:16 Dose: 10 mg Metoprolol Tartrate (Lopressor Injection -) 5 mg IVPUSH Q4H PRN PRN Reason: HYPERTENSION Ondansetron HCl (Zofran Injection) 4 mg IVPUSH Q4H PRN PRN Reason: NAUSEA AND/OR VOMITING Last Admin: 06/11/17 21:01 Dose: 4 mg Pantoprazole Sodium (Protonix -) 40 mg PO BID [facility] Last Admin: 06/12/17 10:17 Dose: 40 mg - Objective Vital Signs: Vital Signs Temperature 97.4 F L 06/12/17 06:00 Pulse Rate 91 H 06/12/17 06:00 Respiratory Rate 20 06/12/17 06:00 Blood Pressure 156/83 06/12/17 06:00 O2 Sat by Pulse Oximetry (%) 94 L 06/11/17 21:00 Constitutional: Yes: No Distress Eyes: Yes: Conjunctiva Clear Cardiovascular: Yes: Regular Rate and Rhythm, S1, S2 Respiratory: Yes: CTA Bilaterally Gastrointestinal: Yes: Normal Bowel Sounds, Soft, Abdomen, Obese, Tenderness (+ epigastric tenderness) Edema: Yes Labs: CBC, BMP 06/11/17 10:00 06/12/17 07:35 INR, PTT INR 1.14 (0.82-1.09) 06/08/17 13:29 Assessment/Plan Diabetic gastroparesis Fever/leukocytosis- resolved Cultures negative D/C antibiotics, observe
--- NOTE | 2017-06-12 11:00 | DS ---
Physical Examination Vital Signs: Vital Signs Temperature 97.4 F L 06/12/17 06:00 Pulse Rate 91 H 06/12/17 06:00 Respiratory Rate 20 06/12/17 06:00 Blood Pressure 156/83 06/12/17 06:00 O2 Sat by Pulse Oximetry (%) 94 L 06/11/17 21:00 Constitutional: Yes: Well Nourished, No Distress, Calm Cardiovascular: Yes: Regular Rate and Rhythm Respiratory: Yes: Regular Gastrointestinal: Yes: Normal Bowel Sounds, Soft, Abdomen, Obese Musculoskeletal: Yes: WNL Extremities: Yes: Deformity Edema: No Peripheral Pulses WNL: Yes Neurological: Yes: Alert, Pre-Existing Deficit Psychiatric: Yes: Alert Labs: CBC, BMP 06/11/17 10:00 06/12/17 07:35 Discharge Summary Reason For Visit: SEPSIS,NAUSEA AND VOMITING Current Active Problems Epigastric abdominal tenderness (Acute) Nausea & vomiting (Acute) Nausea & vomiting (Acute) Sepsis (Acute) Type 2 diabetes mellitus with hyperglycemia (Acute) Hospital Course: the patient is an 87 year old female with a history of IDDM, HTN, HLD, CHF, COPD who presents for evaluation of nausea, vomiting, cough and fevers. The patient is accompanied by family who assist in providing the history. They report a 4 day history of nausea with multiple episodes of non-bilious, non- bloody vomiting with an associated sore throat and non-productive cough. They noted fevers and generalized weakness throughout this time period as well prompting their presentation to the ED for evaluation. The deny any current sick contacts at this time. The patient is endorsing some mild epigastric abdominal pain, but otherwise denies SOB, chest pain, or changes with urination or bowel movements. 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 She was also consulted by Endocrinology. Dietary compliance is important. Pt is has underlying dementia and only speaks maltese. Would encouraged teaching family about dietary and medication compliance. Condition: Stable - Instructions Referrals: Tyrell Back MD [Primary Care Provider] - [facility] - Home Medications Comprehensive Discharge Medication List: Ambulatory Orders Acetaminophen [Tylenol .Regular Strength -] 650 mg PO Q4H PRN #0 tablet Insulin (Levemir) [Levemir Vial] 15 units SQ AM ml 03/16/17 Insulin Sliding Scale [Novolog Vial Sliding Scale -] 1 vial SQ ACHS units 03/16 Polyethylene Glycol 3350 [Miralax 119 gm Btl -] 34 gm PO DAILY bottle 03/16/17 Atorvastatin Ca [Lipitor] 40 mg PO HS 06/08/17 Furosemide [Lasix -] 40 mg PO DAILY 06/08/17 Levothyroxine [Synthroid -] 112 mcg PO DAILY 06/08/17 Metoclopramide HCl 5 mg PO DAILY 06/08/17 Ranitidine [Zantac -] 150 mg PO BID 06/08/17 Valsartan [Diovan] 160 mg PO DAILY 06/08/17
[2017-06-12] MEDS: POTASSIUM CHLORIDE ORAL LIQUID 20 MEQ/15 ML PO SCH (12:44)
[2017-06-12] MEDS: CEFTRIAXONE IN IS-OSM DEXTROSE 2 GM/50 ML BAG IVPB SCH (12:45)
--- NOTE | 2017-06-12 16:00 | PN ---
Progress Note, Physician Chief Complaint: Abdominal pain/ Nausea/ Vomiting History of Present Illness: Patient denies abdominal pain, no nausea, no vomiting off reglan and zofran, tolerating regular diet. - Current Medication List Current Medications: Active Medications Acetaminophen (Tylenol Suppository -) 650 mg [place] Q4H PRN PRN Reason: FEVER Last Admin: 06/10/17 04:17 Dose: 650 mg Dextrose (D50w (Syringe) -) 25 gm IVPUSH PRN PRN PRN Reason: hypoglycemia Heparin Sodium (Porcine) (Heparin -) 5,000 unit SQ BID [facility] Last Admin: 06/12/17 10:16 Dose: 5,000 unit Insulin Aspart (Novolog Vial Sliding Scale -) 1 vial SQ ACHS [facility] PRN Reason: Protocol Last Admin: 06/12/17 12:46 Dose: 5 units Insulin Detemir (Levemir Vial) 15 units SQ AM [facility] Last Admin: 06/12/17 06:14 Dose: 15 units Lactulose (Cephulac (Oral Use)) 20 gm PO DAILY [facility] Last Admin: 06/12/17 10:17 Dose: 20 gm Levothyroxine Sodium (Synthroid -) 112 mcg PO DAILY@0700 [facility] Last Admin: 06/12/17 06:12 Dose: 112 mcg Pantoprazole Sodium (Protonix -) 40 mg PO BID [facility] Last Admin: 06/12/17 10:17 Dose: 40 mg Potassium Chloride (Potassium Chloride Oral Liquid) 20 meq PO DAILY [facility] Last Admin: 06/12/17 12:44 Dose: 20 meq - Objective Vital Signs: Vital Signs Temperature 98.2 F 06/12/17 14:05 Pulse Rate 82 06/12/17 14:05 Respiratory Rate 18 06/12/17 14:05 Blood Pressure 140/71 06/12/17 14:05 O2 Sat by Pulse Oximetry (%) 94 L 06/11/17 21:00 Constitutional: Yes: Well Nourished, No Distress, Calm Eyes: Yes: Conjunctiva Clear HENT: Yes: Atraumatic Respiratory: Yes: Regular, CTA Bilaterally Gastrointestinal: Yes: Normal Bowel Sounds, Soft, Abdomen, Obese. No: Distention, Tenderness, Tenderness, Epigastrium, Tenderness, Rebound, Vomiting Labs: CBC, BMP 06/11/17 10:00 06/12/17 07:35 INR, PTT INR 1.14 (0.82-1.09) 06/08/17 13:29 Problem List - Problems (1) Nausea & vomiting Assessment/Plan: Resolved: 1. Continue to assess Code(s): R11.2 - NAUSEA WITH VOMITING, UNSPECIFIED (2) Epigastric abdominal tenderness Assessment/Plan: Resolving 1) continue IVBP protonix Code(s): R10.816 - EPIGASTRIC ABDOMINAL TENDERNESS
--- NOTE | 2017-06-12 19:26 | PN ---
Progress Note, Physician Chief Complaint: Abdominal pain, Nausea/vomiting Gastroperesis History of Present Illness: NAD, mental status improved PT to see pt advance diet RD to speak to family for dietary education - Current Medication List Current Medications: Active Medications Acetaminophen (Tylenol Suppository -) 650 mg [place] Q4H PRN PRN Reason: FEVER Last Admin: 06/10/17 04:17 Dose: 650 mg Dextrose (D50w (Syringe) -) 25 gm IVPUSH PRN PRN PRN Reason: hypoglycemia Heparin Sodium (Porcine) (Heparin -) 5,000 unit SQ BID [facility] Last Admin: 06/12/17 10:16 Dose: 5,000 unit Insulin Aspart (Novolog Vial Sliding Scale -) 1 vial SQ ACHS [facility] PRN Reason: Protocol Last Admin: 06/12/17 18:55 Dose: 3 units Insulin Detemir (Levemir Vial) 15 units SQ AM [facility] Last Admin: 06/12/17 06:14 Dose: 15 units Lactulose (Cephulac (Oral Use)) 20 gm PO DAILY [facility] Last Admin: 06/12/17 10:17 Dose: 20 gm Levothyroxine Sodium (Synthroid -) 112 mcg PO DAILY@0700 [facility] Last Admin: 06/12/17 06:12 Dose: 112 mcg Pantoprazole Sodium (Protonix -) 40 mg PO BID [facility] Last Admin: 06/12/17 10:17 Dose: 40 mg Potassium Chloride (Potassium Chloride Oral Liquid) 20 meq PO DAILY [facility] Last Admin: 06/12/17 12:44 Dose: 20 meq - Objective Vital Signs: Vital Signs Temperature 98.2 F 06/12/17 14:05 Pulse Rate 82 06/12/17 14:05 Respiratory Rate 18 06/12/17 14:05 Blood Pressure 140/71 06/12/17 14:05 O2 Sat by Pulse Oximetry (%) 94 L 06/11/17 21:00 Constitutional: Yes: Well Nourished, No Distress, Calm Cardiovascular: Yes: Regular Rate and Rhythm Respiratory: Yes: Regular Gastrointestinal: Yes: Normal Bowel Sounds, Soft, Abdomen, Obese Musculoskeletal: Yes: WNL Extremities: Yes: WNL Edema: No Peripheral Pulses WNL: Yes Neurological: Yes: Alert, Pre-Existing Deficit Psychiatric: Yes: Alert Labs: CBC, BMP 06/11/17 10:00 06/12/17 07:35 INR, PTT INR 1.14 (0.82-1.09) 06/08/17 13:29 Problem List - Problems (1) Nausea & vomiting Assessment/Plan: -much more alert -2/2 to gastroparesis -seen by GI -Rodneyan daniel Code(s): R11.2 - NAUSEA WITH VOMITING, UNSPECIFIED Qualifiers: Vomiting type: unspecified Vomiting Intractability: unspecified Qualified Code(s): R11.2 - Nausea with vomiting, unspecified (2) Abdominal pain Assessment/Plan: -no abdominal pain at this time -Ca antigen negative Code(s): R10.9 - UNSPECIFIED ABDOMINAL PAIN (3) Dehydration Assessment/Plan: -dehydration improved -encourage PO intake Code(s): E86.0 - DEHYDRATION (4) Diabetes mellitus, insulin dependent (IDDM), uncontrolled Assessment/Plan: -Endocrine consult -Insulin -tolerating regular diabetic diet Code(s): E10.65 - TYPE 1 DIABETES MELLITUS WITH HYPERGLYCEMIA Qualifiers: Diabetes mellitus complication status: with unspecified complications (5) Gastroparesis Assessment/Plan: -improved -seen by GI -CT abd reviewed -endocrine consult -Insulin Code(s): K31.84 - GASTROPARESIS (6) Hypokalemia Assessment/Plan: -on KCl po daily -recheck CMP today Code(s): E87.6 - HYPOKALEMIA Assessment/Plan see problem lsit DVT and GI prophylaxis walked with PT with minimal assistance of 1
--- NOTE | 2017-06-12 23:30 | PN ---
Progress Note, Physician Chief Complaint: tolerating diet not vomiting,ambulting with assist History of Present Illness: diabetes mellitus,hypothyroidism,ashd,chf,htn,dementia,diabetic gastroparesis admitted with vomiting and dehydration - Current Medication List Current Medications: Active Medications Acetaminophen (Tylenol Suppository -) 650 mg ID Q4H PRN PRN Reason: FEVER Last Admin: 06/10/17 04:17 Dose: 650 mg Dextrose (D50w (Syringe) -) 25 gm IVPUSH PRN PRN PRN Reason: hypoglycemia Heparin Sodium (Porcine) (Heparin -) 5,000 unit SQ BID [facility] Last Admin: 06/12/17 21:25 Dose: 5,000 unit Insulin Aspart (Novolog Vial Sliding Scale -) 1 vial SQ ACHS [facility] PRN Reason: Protocol Last Admin: 06/12/17 21:26 Dose: 5 units Insulin Detemir (Levemir Vial) 15 units SQ AM [facility] Last Admin: 06/12/17 06:14 Dose: 15 units Lactulose (Cephulac (Oral Use)) 20 gm PO DAILY [facility] Last Admin: 06/12/17 10:17 Dose: 20 gm Levothyroxine Sodium (Synthroid -) 112 mcg PO DAILY@0700 [facility] Last Admin: 06/12/17 06:12 Dose: 112 mcg Pantoprazole Sodium (Protonix -) 40 mg PO BID [facility] Last Admin: 06/12/17 21:25 Dose: 40 mg Potassium Chloride (Potassium Chloride Oral Liquid) 20 meq PO DAILY [facility] Last Admin: 06/12/17 12:44 Dose: 20 meq - Objective Vital Signs: Vital Signs Temperature 97.6 F 06/12/17 18:00 Pulse Rate 98 H 06/12/17 18:00 Respiratory Rate 18 06/12/17 18:00 Blood Pressure 126/56 06/12/17 18:00 O2 Sat by Pulse Oximetry (%) 94 L 06/11/17 21:00 Constitutional: Yes: Well Nourished Eyes: Yes: EOM Intact HENT: Yes: Normocephalic Neck: Yes: Trachea Midline, Thyromegaly Cardiovascular: Yes: Regular Rate and Rhythm Respiratory: Yes: CTA Bilaterally Gastrointestinal: Yes: Normal Bowel Sounds, Abdomen, Obese ...Rectal Exam: Yes: Deferred Genitourinary: Yes: WNL Musculoskeletal: Yes: Back Pain, Muscle Pain, Muscle Weakness Extremities: Yes: WNL Edema: Yes Edema: LLE: 1+, RLE: 1+ Neurological: Yes: Alert Labs: CBC, BMP 06/11/17 10:00 06/12/17 07:35 INR, PTT INR 1.14 (0.82-1.09) 06/08/17 13:29 Problem List - Problems (1) Type 2 diabetes mellitus with hyperglycemia Code(s): E11.65 - TYPE 2 DIABETES MELLITUS WITH HYPERGLYCEMIA (2) Nausea & vomiting Code(s): R11.2 - NAUSEA WITH VOMITING, UNSPECIFIED Qualifiers: Vomiting type: unspecified Vomiting Intractability: unspecified Qualified Code(s): R11.2 - Nausea with vomiting, unspecified (3) Abdominal pain Code(s): R10.9 - UNSPECIFIED ABDOMINAL PAIN (4) Acute renal failure Code(s): N17.9 - ACUTE KIDNEY FAILURE, UNSPECIFIED Qualifiers: Acute renal failure type: unspecified Qualified Code(s): N17.9 - Acute kidney failure, unspecified (5) Breast pain, left Code(s): N64.4 - MASTODYNIA Assessment/Plan Current Active Problems Epigastric abdominal tenderness (Acute) Nausea & vomiting (Acute) Nausea & vomiting (Acute) Sepsis (Acute) Type 2 diabetes mellitus with hyperglycemia (Acute) Abnormal Lab Results 06/12/17 07:35 Potassium 3.4 L BUN 3 L Calcium 7.8 L Total Protein 4.9 L Albumin 2.1 L Laboratory Results - last 24 hr 06/12/17 06/12/17 06/12/17 05:55 07:35 12:38 Sodium 142 Potassium 3.4 L Chloride 107 Carbon Dioxide 23 Anion Gap 12 BUN 3 L Creatinine 0.6 Creat Clearance w eGFR > 60 POC Glucometer 63 244 Random Glucose 83 Calcium 7.8 L Total Bilirubin 1.0 D AST 17 ALT 12 Alkaline Phosphatase 69 Total Protein 4.9 L Albumin 2.1 L 06/12/17 06/12/17 17:50 21:24 Sodium Potassium Chloride Carbon Dioxide Anion Gap BUN Creatinine Creat Clearance w eGFR POC Glucometer 191 226 Random Glucose Calcium Total Bilirubin AST ALT Alkaline Phosphatase Total Protein Albumin plan: physical therapy bgm achs novolog doses levemir 15 units am synthroid dose 112 mcg daily
[2017-06-13] MEDS: INSULIN DETEMIR 100 UNITS/ML MDV SQ SCH (06:42)
[2017-06-13] MEDS: LEVOTHYROXINE NA 112 MCG TABLET (FP) PO SCH (06:42)
[2017-06-13] MEDS: INSULIN SLIDING SCALE (NOVOLOG) 1 VIAL SQ SCH ×4 (06:43→21:34)
--- NOTE | 2017-06-13 09:30 | PN ---
Progress Note (short form) - Note Progress Note: Neurology History of Present Illness: The patient is an 87 year old female with a history of IDDM, HTN, HLD, CHF, COPD who presented for evaluation of nausea, vomiting, cough and fevers. Justyn has been seen by GI for gastroperesis as she reported several days of nausea with multiple episodes of non-bilious, non-bloody vomiting with an associated sore throat and non-productive cough. ID also following and patient has been on Ceftriaxone course. She noted fevers and generalized weakness throughout this time period as well prompting their presentation to the ED for evaluation. CT head completed in Apr and reviewed and without acute changes. Reported feeling well this AM and more awake and alert for me. Mental status seems to be near baseline. Active Medications Acetaminophen (Tylenol Suppository -) 650 mg AL Q4H PRN PRN Reason: FEVER Last Admin: 06/10/17 04:17 Dose: 650 mg Dextrose (D50w (Syringe) -) 25 gm IVPUSH PRN PRN PRN Reason: hypoglycemia Heparin Sodium (Porcine) (Heparin -) 5,[address] [facility] Last Admin: 06/12/17 21:25 Dose: 5,000 unit Insulin Aspart (Novolog Vial Sliding Scale -) 1 vial SQ ACHS [facility] PRN Reason: Protocol Last Admin: 06/13/17 06:43 Dose: 3 units Insulin Detemir (Levemir Vial) [address] [facility] Last Admin: 06/13/17 06:42 Dose: 15 units Lactulose (Cephulac (Oral Use)) [address] [facility] Last Admin: 06/12/17 10:17 Dose: 20 gm Levothyroxine Sodium (Synthroid -) 112 mcg PO DAILY@0700 [facility] Last Admin: 06/13/17 06:42 Dose: 112 mcg Pantoprazole Sodium (Protonix -) [address] [facility] Last Admin: 06/12/17 21:25 Dose: 40 mg Potassium Chloride (Potassium Chloride Oral Liquid) [address] [facility] Last Admin: 06/12/17 12:44 Dose: 20 meq Physical Examination Vital Signs Period Temp Pulse Resp BP Sys/Ug Pulse Ox Last 24 Hr 97.6 F-98.6 F 79-98 18-20 126-143/51-71 94-94 Constitutional: Yes: Well Nourished, No Distress, Calm Cardiovascular: Yes: Regular Rate and Rhythm Respiratory: Yes: Regular Gastrointestinal: Yes: Soft, Hypoactive Bowel Sounds Musculoskeletal: Yes: WNL Extremities: Yes: WNL Edema: No Peripheral Pulses WNL: Yes Neurological: Awake, alert, but faiguted, CN intact, moves all extremities, sensory intact, gait deferred CBCD WBC 7.7 K/mm3 (4.0-10.0) 06/11/17 10:00 RBC 4.67 M/mm3 (3.60-5.2) 06/11/17 10:00 Hgb 14.0 GM/dL (10.7-15.3) 06/11/17 10:00 Hct 41.6 % (32.4-45.2) 06/11/17 10:00 MCV 89.0 fl (80-96) 06/11/17 10:00 MCHC 33.6 g/dl (32.0-36.0) 06/11/17 10:00 RDW 14.7 % (11.6-15.6) 06/11/17 10:00 Plt Count 125 K/MM3 (134-434) L 06/11/17 10:00 MPV 9.6 fl (7.5-11.1) 06/11/17 10:00 CMP Sodium 142 mmol/L (136-145) 06/12/17 07:35 Potassium 3.4 mmol/L (3.5-5.1) L 06/12/17 07:35 Chloride 107 mmol/L (98-107) 06/12/17 07:35 Carbon Dioxide 23 mmol/L (21-32) 06/12/17 07:35 Anion Gap 12 (8-16) 06/12/17 07:35 BUN 3 mg/dL (7-18) L 06/12/17 07:35 Creatinine 0.6 mg/dL (0.55-1.02) 06/12/17 07:35 Creat Clearance w eGFR > 60 (>60) 06/12/17 07:35 Calcium 7.8 mg/dL (8.5-10.1) L 06/12/17 07:35 Total Bilirubin 1.0 mg/dL (0.2-1.0) D 06/12/17 07:35 AST 17 U/L (15-37) 06/12/17 07:35 ALT 12 U/L (12-78) 06/12/17 07:35 Alkaline Phosphatase 69 U/L (45-117) 06/12/17 07:35 Total Protein 4.9 g/dl (6.4-8.2) L 06/12/17 07:35 Albumin 2.1 g/dl (3.4-5.0) L 06/12/17 07:35 Imaging - Results Chest X-ray: Report Reviewed CT Head: report reviewed Plan: 87 year old female with a history of IDDM, HTN, HLD, CHF, COPD who presented for evaluation of nausea, vomiting, cough and fevers. She has been seen by GI for gastroperesis as she reported several days of nausea with multiple episodes of non-bilious, non-bloody vomiting with an associated sore throat and non- productive cough. ID following and patient has been on Ceftriaxone GI followup, continue antiemetics, Reglan/Zofran Possibly 2/2 dehydration/deconditioning Continue IV/PO intake CT head completed recently and without acute changes, will hold off for now, if not improving then can recheck Ongoing gastroparesis Monitor DM, maintain euglycemic range, avoid hyper/hypoglycemia Monitor blood pressure, maintain normotensive range Mental status improving, near baselien
--- NOTE | 2017-06-13 09:48 | CONS ---
DATE OF CONSULTATION: DATE OF DICTATION: 06/08/2017 HISTORY OF PRESENT ILLNESS: The patient is an 87-year-old female evaluated for sepsis. History was obtained from the family members present at the time of the examination. Patient resides at home. Over the past 3 to 4 days she has had worsening generalized weakness, anorexia, nausea, vomiting, cough, a sore throat and fever. She presented to the emergency room where she was found to have a glucose of 324 and a lactic acid level of 2.8. She was admitted to the hospital. She offers no focal complaint. Family members report that she has been having nausea and vomiting for the past several days associated with anorexia. She was noted to have a white blood cell count of 12.2 and low-grade fever. No reports of shaking chills, labored breathing, sputum production, hemoptysis or grossly purulent urine. Patient has had similar presentations in the past, was diagnosed with diabetic gastroparesis. PAST MEDICAL HISTORY: Positive for insulin-dependent diabetes mellitus, hypertension, hyperlipidemia, congestive heart failure, COPD. PAST SURGICAL HISTORY: Status post cholecystectomy. ALLERGIES: No known allergies. MEDICATIONS: Levemir, NovoLog, Lipitor, Lasix, Synthroid, Zantac, Diovan. SOCIAL HISTORY: Resides at home with family members. Former smoker. SYSTEMS REVIEW: Neurologic: No loss of consciousness, seizure activity, focal weakness. Cardiac: Negative for chest pain or palpitations. Respiratory: As per HPI. Gastrointestinal: As per HPI. Genitourinary: Negative for urinary tract infection. LABORATORY DATA: White count 12.2, hematocrit 48.6, platelet count 179. BUN 22, creatinine 1.3. Urinalysis: White cells 4. Total bilirubin 2.7, alkaline phosphatase 106, AST 18. Chest x-ray negative for acute infiltrate. PHYSICAL EXAMINATION:General: She is awake and alert, supine in bed. Vital Signs: Temperature 100.3, blood pressure 106/68, pulse 112, regular, respirations 18 per minute. HEENT: Sclerae anicteric. Cardiac: Heart sounds S1, S2. No murmur. Lungs: Clear. Abdomen: Soft, obese. No tenderness elicited. No mass, rebound or rigidity. Extremities: Positive for edema. IMPRESSION: 1. Low-grade fever, leukocytosis, rule out sepsis. 2. Diabetic gastroparesis. 3. Uncontrolled diabetes mellitus. 4. Lactic acidosis. RECOMMENDATIONS: Suspect patient with diabetic gastroparesis and uncontrolled diabetes mellitus. Cannot rule out infection as precipitating cause. Await culture results. Empiric antibiotic coverage with ceftriaxone 2 g IV piggyback every 24 hours. GI evaluation. Discussed with family members present at the time of the examination. Thank you for the kind referral. LINO CHIN M.D. [id number]
[2017-06-13 11:33] LABS: BASO % 0.7 % (0-2.0); EOS % 4.7 % (0-4.5); HEMATOCRIT 39.9 % (32.4-45.2); HEMOGLOBIN 13.4 GM/dL (10.7-15.3); LYMPH % 24.2 % (8-40); MCH 29.8 pg (25.7-33.7); MCHC 33.6 g/dl (32.0-36.0); MEAN CELL VOLUME 88.7 fl (80-96); MEAN PLT VOLUME 10.2 fl (7.5-11.1); NEUT % 58.4 % (42.8-82.8); PLATELET COUNT 121 K/MM3 (134-434); RDW 14.7 % (11.6-15.6); WHITE BLOOD COUNT 8.3 K/mm3 (4.0-10.0)
[2017-06-13] MEDS ORDERED: PT OWN MED DRAWER 7, Y5N ONE (11:42)
[2017-06-13] MEDS: LACTULOSE 20 GM/30 ML UDC (FOR ORAL USE ONLY) PO SCH (11:52)
[2017-06-13] MEDS: HEPARIN NA (PORCINE) 5,000 UNITS/ML 1ML VIAL SQ SCH ×2 (11:52→21:34)
[2017-06-13] MEDS: POTASSIUM CHLORIDE ORAL LIQUID 20 MEQ/15 ML PO SCH (11:52)
[2017-06-13] MEDS: PANTOPRAZOLE 40 MG TABLET (FP) PO SCH ×2 (11:53→21:34)
[2017-06-13 12:15] LABS: ALBUMIN 2.1 g/dl (3.4-5.0); ANION GAP 14 (8-16); BILIRUBIN,TOTAL 1.1 mg/dL (0.2-1.0); BLOOD UREA NITROGEN 5 mg/dL (7-18); CALCIUM 7.3 mg/dL (8.5-10.1); CHLORIDE 106 mmol/L (98-107); CO2 19 mmol/L (21-32); CREATININE 0.6 mg/dL (0.55-1.02); GLUCOSE,RANDOM 141 mg/dL (74-106); POTASSIUM 3.7 mmol/L (3.5-5.1); SGOT/AST 20 U/L (15-37); SGPT/ALT 12 U/L (12-78); SODIUM 139 mmol/L (136-145); TOT PROT 4.9 g/dl (6.4-8.2)
[2017-06-13 12:16] LABS: ALK PHOS 68 U/L (45-117)
--- NOTE | 2017-06-13 12:33 | EKG ---
Test Reason : Blood Pressure : / mmHG Vent. Rate : 077 BPM Atrial Rate : 077 BPM P-R Int : 214 ms QRS Dur : 092 ms QT Int : 442 ms P-R-T Axes : 067 -02 -58 degrees QTc Int : 500 ms SINUS RHYTHM WITH SINUS ARRHYTHMIA WITH 1ST DEGREE A-V BLOCK WITH FREQUENT and consecutive PREMATURE VENTRICULAR COMPLEXES NONSPECIFIC T WAVE ABNORMALITY PROLONGED QT ABNORMAL ECG WHEN COMPARED WITH ECG OF 08-JUN-2017 11:46, Confirmed by MD ANABELA, GERMANIA ([id number]) on 06/13/2017 12:32:33 PM Referred By: Deep QUILES Confirmed By:GERMANIA PEÑALOZA MD
--- NOTE | 2017-06-13 16:27 | PN ---
Progress Note, Physician Chief Complaint: Abdominal pain/ Nausea/ Vomiting History of Present Illness: Patient denies abdominal pain, no nausea, no vomiting tolerating regular diet. - Current Medication List Current Medications: Active Medications Acetaminophen (Tylenol Suppository -) 650 mg AR Q4H PRN PRN Reason: FEVER Last Admin: 06/10/17 04:17 Dose: 650 mg Dextrose (D50w (Syringe) -) 25 gm IVPUSH PRN PRN PRN Reason: hypoglycemia Heparin Sodium (Porcine) (Heparin -) 5,000 unit SQ BID [facility] Last Admin: 06/13/17 11:52 Dose: 5,000 unit Insulin Aspart (Novolog Vial Sliding Scale -) 1 vial SQ ACHS [facility] PRN Reason: Protocol Last Admin: 06/13/17 11:53 Dose: Not Given Insulin Detemir (Levemir Vial) 15 units SQ AM [facility] Last Admin: 06/13/17 06:42 Dose: 15 units Lactulose (Cephulac (Oral Use)) 20 gm PO DAILY [facility] Last Admin: 06/13/17 11:52 Dose: 20 gm Levothyroxine Sodium (Synthroid -) 112 mcg PO DAILY@0700 [facility] Last Admin: 06/13/17 06:42 Dose: 112 mcg Pantoprazole Sodium (Protonix -) 40 mg PO BID [facility] Last Admin: 06/13/17 11:53 Dose: 40 mg Potassium Chloride (Potassium Chloride Oral Liquid) 20 meq PO DAILY [facility] Last Admin: 06/13/17 11:52 Dose: 20 meq - Objective Vital Signs: Vital Signs Temperature 98.1 F 06/13/17 02:00 Pulse Rate 97 H 06/13/17 02:00 Respiratory Rate 20 06/13/17 02:00 Blood Pressure 143/51 06/13/17 02:00 O2 Sat by Pulse Oximetry (%) 94 L 06/12/17 21:00 Constitutional: Yes: Well Nourished, No Distress, Calm Eyes: Yes: Conjunctiva Clear HENT: Yes: Atraumatic Cardiovascular: Yes: Regular Rate and Rhythm Respiratory: Yes: Regular, CTA Bilaterally Gastrointestinal: Yes: Normal Bowel Sounds, Abdomen, Obese. No: Distention, Tenderness, Tenderness, Epigastrium, Tenderness, Rebound, Vomiting Labs: CBC, BMP 06/13/17 11:04 06/13/17 11:04 INR, PTT INR 1.14 (0.82-1.09) 06/08/17 13:29 Problem List - Problems (1) Nausea & vomiting Assessment/Plan: resolved Code(s): R11.2 - NAUSEA WITH VOMITING, UNSPECIFIED (2) Epigastric abdominal tenderness Assessment/Plan: resolved Code(s): R10.816 - EPIGASTRIC ABDOMINAL TENDERNESS
[2017-06-13] MEDS ORDERED: MINERAL OIL/PETROLAT/WATER TOPICAL CREAM 454 GM JAR TP PRN (18:12)
[2017-06-13] MEDS ORDERED: INSULIN (NOVOLOG) ASPART 100 UNITS/ML 10ML VIAL ONE (21:32)
[2017-06-14] MEDS: INSULIN SLIDING SCALE (NOVOLOG) 1 VIAL SQ SCH ×2 (06:16→13:34)
[2017-06-14] MEDS: INSULIN DETEMIR 100 UNITS/ML MDV SQ SCH (06:20)
[2017-06-14] MEDS: METOCLOPRAMIDE HCL 10 MG TABLET (FP) PO SCH ×2 (06:20→13:38)
[2017-06-14] MEDS: LEVOTHYROXINE NA 112 MCG TABLET (FP) PO SCH (06:21)
[2017-06-14] MEDS: HEPARIN NA (PORCINE) 5,000 UNITS/ML 1ML VIAL SQ SCH (09:28)
[2017-06-14] MEDS: LACTULOSE 20 GM/30 ML UDC (FOR ORAL USE ONLY) PO SCH (09:28)
[2017-06-14] MEDS: POTASSIUM CHLORIDE ORAL LIQUID 20 MEQ/15 ML PO SCH (09:28)
[2017-06-14] MEDS: PANTOPRAZOLE 40 MG TABLET (FP) PO SCH (09:28)
--- NOTE | 2017-06-14 09:42 | PN ---
Progress Note (short form) - Note Progress Note: Neurology History of Present Illness: The patient is an 87 year old female with a history of IDDM, HTN, HLD, CHF, COPD who presented for evaluation of nausea, vomiting, cough and fevers. Justyn has been seen by GI for gastroperesis as she reported several days of nausea with multiple episodes of non-bilious, non-bloody vomiting with an associated sore throat and non-productive cough. ID also following and patient has been on Ceftriaxone course. She noted fevers and generalized weakness throughout this time period as well prompting their presentation to the ED for evaluation. CT head completed in and without acute changes. Reported feeling well, without nausea/vomiting. Mental status seems to be near baseline. No acute neuro events overnight. Active Medications Acetaminophen (Tylenol Suppository -) 650 mg MD Q4H PRN PRN Reason: FEVER Last Admin: 06/10/17 04:17 Dose: 650 mg Dextrose (D50w (Syringe) -) 25 gm IVPUSH PRN PRN PRN Reason: hypoglycemia Heparin Sodium (Porcine) (Heparin -) 5,000 unit SQ BID [facility] Last Admin: 06/14/17 09:28 Dose: 5,000 unit Insulin Aspart (Novolog Vial Sliding Scale -) 1 vial SQ ACHS [facility] PRN Reason: Protocol Last Admin: 06/14/17 06:16 Dose: 3 units Insulin Detemir (Levemir Vial) 15 units SQ AM [facility] Last Admin: 06/14/17 06:20 Dose: 15 units Lactulose (Cephulac (Oral Use)) 20 gm PO DAILY [facility] Last Admin: 06/14/17 09:28 Dose: 20 gm Levothyroxine Sodium (Synthroid -) 112 mcg PO DAILY@0700 [facility] Last Admin: 06/14/17 06:21 Dose: 112 mcg Metoclopramide HCl (Reglan -) 5 mg PO TIDAC [facility] Last Admin: 06/14/17 06:20 Dose: 5 mg Multi-Ingredient Lotion (Eucerin (Large Jar) -) 1 applic TP Q12H PRN PRN Reason: DRY SKIN Last Admin: 06/13/17 21:46 Dose: 1 applic Pantoprazole Sodium (Protonix -) 40 mg PO BID [facility] Last Admin: 06/14/17 09:28 Dose: 40 mg Potassium Chloride (Potassium Chloride Oral Liquid) 20 meq PO DAILY [facility] Last Admin: 06/14/17 09:28 Dose: 20 meq Physical Examination Vital Signs Period Temp Pulse Resp BP Sys/Gu Pulse Ox Last 24 Hr 98.2 F-98.8 F 88-98 20-20 136-141/57-97 94 Constitutional: Yes: Well Nourished, No Distress, Calm Cardiovascular: Yes: Regular Rate and Rhythm Respiratory: Yes: Regular Gastrointestinal: Yes: Soft, Hypoactive Bowel Sounds Musculoskeletal: Yes: WNL Extremities: Yes: WNL Edema: No Peripheral Pulses WNL: Yes Neurological: Awake, alert, but faiguted, CN intact, moves all extremities, sensory intact, gait deferred CBCD WBC 8.3 K/mm3 (4.0-10.0) 06/13/17 11:04 RBC 4.50 M/mm3 (3.60-5.2) 06/13/17 11:04 Hgb 13.4 GM/dL (10.7-15.3) 06/13/17 11:04 Hct 39.9 % (32.4-45.2) 06/13/17 11:04 MCV 88.7 fl (80-96) 06/13/17 11:04 MCHC 33.6 g/dl (32.0-36.0) 06/13/17 11:04 RDW 14.7 % (11.6-15.6) 06/13/17 11:04 Plt Count 121 K/MM3 (134-434) L 06/13/17 11:04 MPV 10.2 fl (7.5-11.1) 06/13/17 11:04 CMP Sodium 139 mmol/L (136-145) 06/13/17 11:04 Potassium 3.7 mmol/L (3.5-5.1) 06/13/17 11:04 Chloride 106 mmol/L (98-107) 06/13/17 11:04 Carbon Dioxide 19 mmol/L (21-32) L 06/13/17 11:04 Anion Gap 14 (8-16) 06/13/17 11:04 BUN 5 mg/dL (7-18) L 06/13/17 11:04 Creatinine 0.6 mg/dL (0.55-1.02) 06/13/17 11:04 Creat Clearance w eGFR > 60 (>60) 06/13/17 11:04 Calcium 7.3 mg/dL (8.5-10.1) L 06/13/17 11:04 Total Bilirubin 1.1 mg/dL (0.2-1.0) H 06/13/17 11:04 AST 20 U/L (15-37) 06/13/17 11:04 ALT 12 U/L (12-78) 06/13/17 11:04 Alkaline Phosphatase 68 U/L (45-117) 06/13/17 11:04 Total Protein 4.9 g/dl (6.4-8.2) L 06/13/17 11:04 Albumin 2.1 g/dl (3.4-5.0) L 06/13/17 11:04 Imaging - Results Chest X-ray: Report Reviewed CT Head: report reviewed Plan: 87 year old female with a history of IDDM, HTN, HLD, CHF, COPD who presented for evaluation of nausea, vomiting, cough and fevers. She has been seen by GI for gastroperesis as she reported several days of nausea with multiple episodes of non-bilious, non-bloody vomiting with an associated sore throat and non- productive cough. ID following and patient has been on Ceftriaxone GI followup, continue antiemetics, Reglan/Zofran, improved nausea/vomiting Possibly 2/2 dehydration/deconditioning Continue IV/PO intake CT head completed recently and without acute changes, will hold off for now, if not improving then can recheck Ongoing gastroparesis Monitor DM, maintain euglycemic range, avoid hyper/hypoglycemia Monitor blood pressure, maintain normotensive range Mental status improved Seems to be at baseline
--- NOTE | 2017-06-14 10:05 | PN ---
Progress Note, Physician Chief Complaint: Abdominal pain, Nausea/vomiting Gastroperesis History of Present Illness: NAD, mental status improved PT to see pt advance diet RD to speak to family for dietary education awaiting cardiology to re-evaluate EKG changes If cleared, can be discharged home with VNS - Current Medication List Current Medications: Active Medications Acetaminophen (Tylenol Suppository -) 650 mg NE Q4H PRN PRN Reason: FEVER Last Admin: 06/10/17 04:17 Dose: 650 mg Dextrose (D50w (Syringe) -) 25 gm IVPUSH PRN PRN PRN Reason: hypoglycemia Heparin Sodium (Porcine) (Heparin -) 5,000 unit SQ BID [facility] Last Admin: 06/14/17 09:28 Dose: 5,000 unit Insulin Aspart (Novolog Vial Sliding Scale -) 1 vial SQ ACHS [facility] PRN Reason: Protocol Last Admin: 06/14/17 06:16 Dose: 3 units Insulin Detemir (Levemir Vial) 15 units SQ AM [facility] Last Admin: 06/14/17 06:20 Dose: 15 units Lactulose (Cephulac (Oral Use)) 20 gm PO DAILY [facility] Last Admin: 06/14/17 09:28 Dose: 20 gm Levothyroxine Sodium (Synthroid -) 112 mcg PO DAILY@0700 [facility] Last Admin: 06/14/17 06:21 Dose: 112 mcg Metoclopramide HCl (Reglan -) 5 mg PO TIDAC [facility] Last Admin: 06/14/17 06:20 Dose: 5 mg Multi-Ingredient Lotion (Eucerin (Large Jar) -) 1 applic TP Q12H PRN PRN Reason: DRY SKIN Last Admin: 06/13/17 21:46 Dose: 1 applic Pantoprazole Sodium (Protonix -) 40 mg PO BID [facility] Last Admin: 06/14/17 09:28 Dose: 40 mg Potassium Chloride (Potassium Chloride Oral Liquid) 20 meq PO DAILY [facility] Last Admin: 06/14/17 09:28 Dose: 20 meq - Objective Vital Signs: Vital Signs Temperature 98.2 F 06/14/17 06:15 Pulse Rate 98 H 06/14/17 06:15 Respiratory Rate 20 06/14/17 06:15 Blood Pressure 136/79 06/14/17 06:15 O2 Sat by Pulse Oximetry (%) 94 L 06/13/17 21:00 Constitutional: Yes: Well Nourished, No Distress, Calm Cardiovascular: Yes: Regular Rate and Rhythm, Other (extrasystole) Respiratory: Yes: Regular Gastrointestinal: Yes: Normal Bowel Sounds, Soft, Abdomen, Obese Musculoskeletal: Yes: WNL Extremities: Yes: WNL Edema: No Peripheral Pulses WNL: Yes Neurological: Yes: Alert, Oriented Psychiatric: Yes: Alert, Oriented Labs: CBC, BMP 06/13/17 11:04 06/13/17 11:04 INR, PTT INR 1.14 (0.82-1.09) 06/08/17 13:29 Problem List - Problems (1) Nausea & vomiting Assessment/Plan: -much more alert -2/2 to gastroparesis -seen by GI -Deepti sanchez Code(s): R11.2 - NAUSEA WITH VOMITING, UNSPECIFIED Qualifiers: Vomiting type: unspecified Vomiting Intractability: unspecified Qualified Code(s): R11.2 - Nausea with vomiting, unspecified (2) Abdominal pain Assessment/Plan: -no abdominal pain at this time -Ca antigen negative Code(s): R10.9 - UNSPECIFIED ABDOMINAL PAIN (3) Dehydration Assessment/Plan: -dehydration improved -encourage PO intake Code(s): E86.0 - DEHYDRATION (4) Diabetes mellitus, insulin dependent (IDDM), uncontrolled Assessment/Plan: -Endocrine consult -Insulin -tolerating regular diabetic diet Code(s): E10.65 - TYPE 1 DIABETES MELLITUS WITH HYPERGLYCEMIA Qualifiers: Diabetes mellitus complication status: with unspecified complications (5) Gastroparesis Assessment/Plan: -improved -seen by GI -CT abd reviewed -endocrine consult -Insulin Code(s): K31.84 - GASTROPARESIS (6) Hypokalemia Assessment/Plan: -resolved -on KCl po daily Code(s): E87.6 - HYPOKALEMIA Assessment/Plan see problem lsit DVT and GI prophylaxis walked with PT with minimal assistance of 1
--- NOTE | 2017-06-14 10:06 | DS ---
Physical Examination Vital Signs: Vital Signs Temperature 98.2 F 06/14/17 06:15 Pulse Rate 98 H 06/14/17 06:15 Respiratory Rate 20 06/14/17 06:15 Blood Pressure 136/79 06/14/17 06:15 O2 Sat by Pulse Oximetry (%) 94 L 06/13/17 21:00 Constitutional: Yes: Well Nourished, No Distress, Calm Cardiovascular: Yes: Regular Rate and Rhythm Respiratory: Yes: Regular Gastrointestinal: Yes: Normal Bowel Sounds, Soft Musculoskeletal: Yes: WNL Extremities: Yes: WNL Edema: No Peripheral Pulses WNL: Yes Neurological: Yes: Alert, Oriented Psychiatric: Yes: Alert, Oriented Labs: CBC, BMP 06/13/17 11:04 06/13/17 11:04 Discharge Summary Reason For Visit: SEPSIS,NAUSEA AND VOMITING Current Active Problems Epigastric abdominal tenderness (Acute) Hypokalemia (Acute) Nausea & vomiting (Acute) Nausea & vomiting (Acute) Sepsis (Acute) Type 2 diabetes mellitus with hyperglycemia (Acute) Hospital Course: the patient is an 87 year old female with a history of IDDM, HTN, HLD, CHF, COPD who presents for evaluation of nausea, vomiting, cough and fevers. The patient is accompanied by family who assist in providing the history. They report a 4 day history of nausea with multiple episodes of non-bilious, non- bloody vomiting with an associated sore throat and non-productive cough. They noted fevers and generalized weakness throughout this time period as well prompting their presentation to the ED for evaluation. The deny any current sick contacts at this time. The patient is endorsing some mild epigastric abdominal pain, but otherwise denies SOB, chest pain, or changes with urination or bowel movements. 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 She was also consulted by Endocrinology. Dietary compliance is important. Pt is has underlying dementia and only speaks croatian. Would encouraged teaching family about dietary and medication compliance. Condition: Stable - Instructions Diet, Activity, Other Instructions: -PLEASE FOLLOW DIABETIC DIET -FOLLOW UP WITH PCP/ENDOCRINOLOGY WITHIN 2 WEEKS Referrals: Tyrell Back MD [Primary Care Provider] - Disposition: VNS/HOME HEALTH CARE - Home Medications Comprehensive Discharge Medication List: Ambulatory Orders Acetaminophen [Tylenol .Regular Strength -] 650 mg PO Q4H PRN #0 tablet Insulin (Levemir) [Levemir Vial] 15 units SQ AM ml 03/16/17 Insulin Sliding Scale [Novolog Vial Sliding Scale -] 1 vial SQ ACHS units 03/16 Polyethylene Glycol 3350 [Miralax 119 gm Btl -] 34 gm PO DAILY bottle 03/16/17 Atorvastatin Ca [Lipitor] 40 mg PO HS 06/08/17 Furosemide [Lasix -] 40 mg PO DAILY 06/08/17 Levothyroxine [Synthroid -] 112 mcg PO DAILY 06/08/17 Metoclopramide HCl 5 mg PO DAILY 06/08/17 Ranitidine [Zantac -] 150 mg PO BID 06/08/17 Valsartan [Diovan] 160 mg PO DAILY 06/08/17 Lactulose (Oral Use) [Cephulac -] 20 gm PO DAILY #900 ml 06/14/17 Pantoprazole Sodium [Protonix -] 40 mg PO BID #60 tablet.ec 06/14/17 Potassium Chloride 20 meq PO DAILY #30 tablet.er 06/14/17
[2017-06-14 10:34] VITALS: BP 128/71; PULSE 94; TEMP 98.6
--- NOTE | 2017-06-14 15:04 | PN ---
Progress Note, Physician Chief Complaint: Reconsult for abnormal ECG: sinus rhythm, VPCs, non-specific T wave abnormalities of inferolateral leads and mildly prolonged QTc. The patient has been stable and remained asymptomatic from cardiac standpoint since admission. She denies chest pain, SOB or palpitation. No recurrent nause and vomiting. History of Present Illness: 87 year old female with a history of IDDM, HTN, HLD, CHF, COPD admitted for nausea, vomiting, cough and fevers. 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 She was also consulted by Endocrinology. Repeat ECG 06/13/2017 showed sinus rhythm, VPCs, non-specific T wave abnormalities of inferolateral leads and mildly prolonged QTc. The patient has been stable and remained asymptomatic from cardiac standpoint since admission. No symptoms of angina, CHF or palpitation. - Current Medication List Current Medications: Active Medications Acetaminophen (Tylenol Suppository -) 650 mg [place] Q4H PRN PRN Reason: FEVER Last Admin: 06/10/17 04:17 Dose: 650 mg Dextrose (D50w (Syringe) -) 25 gm IVPUSH PRN PRN PRN Reason: hypoglycemia Heparin Sodium (Porcine) (Heparin -) 5,000 unit SQ BID [facility] Last Admin: 06/14/17 09:28 Dose: 5,000 unit Insulin Aspart (Novolog Vial Sliding Scale -) 1 vial SQ ACHS [facility] PRN Reason: Protocol Last Admin: 06/14/17 13:34 Dose: 3 units Insulin Detemir (Levemir Vial) 15 units SQ AM [facility] Last Admin: 06/14/17 06:20 Dose: 15 units Lactulose (Cephulac (Oral Use)) 20 gm PO DAILY [facility] Last Admin: 06/14/17 09:28 Dose: 20 gm Levothyroxine Sodium (Synthroid -) 112 mcg PO DAILY@0700 [facility] Last Admin: 06/14/17 06:21 Dose: 112 mcg Metoclopramide HCl (Reglan -) 5 mg PO TIDAC [facility] Last Admin: 06/14/17 13:38 Dose: 5 mg Multi-Ingredient Lotion (Eucerin (Large Jar) -) 1 applic TP Q12H PRN PRN Reason: DRY SKIN Last Admin: 06/13/17 21:46 Dose: 1 applic Pantoprazole Sodium (Protonix -) 40 mg PO BID [facility] Last Admin: 06/14/17 09:28 Dose: 40 mg Potassium Chloride (Potassium Chloride Oral Liquid) 20 meq PO DAILY [facility] Last Admin: 06/14/17 09:28 Dose: 20 meq - Objective Vital Signs: Vital Signs Temperature 98.6 F 06/14/17 09:00 Pulse Rate 94 H 06/14/17 09:00 Respiratory Rate 20 06/14/17 09:00 Blood Pressure 128/71 06/14/17 09:00 O2 Sat by Pulse Oximetry (%) 94 L 06/14/17 09:00 General: Well developed. Obese. No acute distress. Head: Normocephalic. Atraumatic, Eyes: PERRLA, EOMI. Sclerae anicteric. Conjunctivae clear. Neck: Supple. No JVD. No bruits. Heart: Normal S1, S2: Regularly regular rhythm and rate. Lungs: Symmetrical air entry. Clear to auscultation. No crackle. No wheezing or rhonchi. Abdomen: Obese. Soft. Bowel sound positive. Non tender. No masses. Extremities: No edema. Venous stasis. Labs: CBC, BMP 06/13/17 11:04 06/13/17 11:04 INR, PTT INR 1.14 (0.82-1.09) 06/08/17 13:29 Assessment/Plan 87 year old female with a history of IDDM, HTN, HLD, CHF, COPD admitted for nausea, vomiting, cough and fevers. 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 She was also consulted by Endocrinology. Repeat ECG 06/13/2017 showed sinus rhythm, VPCs, non-specific T wave abnormalities of inferolateral leads and mildly prolonged QTc. The patient has no symptoms of angina, CHF or palpitation. May add aspirin 81 mg daily. No further cardiac test recommended at this time. Please call us for reconsult as needed.
--- NOTE | 2017-06-14 16:36 | PN ---
Progress Note, Physician Chief Complaint: Abdominal pain/ Nausea/ Vomiting History of Present Illness: Patient denies abdominal pain, no nausea, no vomiting tolerating regular diet, pending discharge home with VNS. - Current Medication List Current Medications: Active Medications Acetaminophen (Tylenol Suppository -) 650 mg [place] Q4H PRN PRN Reason: FEVER Last Admin: 06/10/17 04:17 Dose: 650 mg Dextrose (D50w (Syringe) -) 25 gm IVPUSH PRN PRN PRN Reason: hypoglycemia Heparin Sodium (Porcine) (Heparin -) 5,000 unit SQ BID [facility] Last Admin: 06/14/17 09:28 Dose: 5,000 unit Insulin Aspart (Novolog Vial Sliding Scale -) 1 vial SQ ACHS [facility] PRN Reason: Protocol Last Admin: 06/14/17 13:34 Dose: 3 units Insulin Detemir (Levemir Vial) 15 units SQ AM [facility] Last Admin: 06/14/17 06:20 Dose: 15 units Lactulose (Cephulac (Oral Use)) 20 gm PO DAILY [facility] Last Admin: 06/14/17 09:28 Dose: 20 gm Levothyroxine Sodium (Synthroid -) 112 mcg PO DAILY@0700 [facility] Last Admin: 06/14/17 06:21 Dose: 112 mcg Metoclopramide HCl (Reglan -) 5 mg PO TIDAC [facility] Last Admin: 06/14/17 13:38 Dose: 5 mg Multi-Ingredient Lotion (Eucerin (Large Jar) -) 1 applic TP Q12H PRN PRN Reason: DRY SKIN Last Admin: 06/13/17 21:46 Dose: 1 applic Pantoprazole Sodium (Protonix -) 40 mg PO BID [facility] Last Admin: 06/14/17 09:28 Dose: 40 mg Potassium Chloride (Potassium Chloride Oral Liquid) 20 meq PO DAILY [facility] Last Admin: 06/14/17 09:28 Dose: 20 meq - Objective Vital Signs: Vital Signs Temperature 98.6 F 06/14/17 09:00 Pulse Rate 94 H 06/14/17 09:00 Respiratory Rate 20 06/14/17 09:00 Blood Pressure 128/71 06/14/17 09:00 O2 Sat by Pulse Oximetry (%) 94 L 06/14/17 09:00 Constitutional: Yes: Well Nourished, No Distress, Calm Eyes: Yes: Conjunctiva Clear HENT: Yes: Atraumatic Cardiovascular: Yes: Regular Rate and Rhythm Respiratory: Yes: Regular. No: Cough Gastrointestinal: Yes: Normal Bowel Sounds, Soft, Abdomen, Obese. No: Tenderness, Tenderness, Epigastrium, Tenderness, Rebound, Vomiting Labs: CBC, BMP 06/13/17 11:04 06/13/17 11:04 INR, PTT INR 1.14 (0.82-1.09) 06/08/17 13:29 Current Medications Generic Name Dose Route Start Last Admin Trade Name Freq PRN Reason Stop Dose Admin Acetaminophen 650 mg 06/08/17 16:53 06/10/17 04:17 Tylenol Suppository - CO 650 mg Q4H PRN Administration FEVER Dextrose 25 gm 06/08/17 17:57 D50w (Syringe) - IVPUSH PRN PRN hypoglycemia Heparin Sodium (Porcine) 5,000 unit 06/08/17 22:00 06/14/17 09:28 Heparin - SQ 5,000 unit BID [facility] Administration Insulin Aspart 1 vial 06/09/17 22:00 06/14/17 13:34 Novolog Vial Sliding Scale - SQ 3 units ACHS [facility] Administration Protocol Insulin Detemir 15 units 06/09/17 07:00 06/14/17 06:20 Levemir Vial SQ 15 units AM [facility] Administration Lactulose 20 gm 06/10/17 20:00 06/14/17 09:28 Cephulac (Oral Use) PO 20 gm DAILY [facility] Administration Levothyroxine Sodium 112 mcg 06/12/17 07:00 06/14/17 06:21 Synthroid - PO 112 mcg DAILY@0700 [facility] Administration Metoclopramide HCl 5 mg 06/14/17 07:00 06/14/17 13:38 Reglan - PO 5 mg TIDAC [facility] Administration Multi-Ingredient Lotion 1 applic 06/13/17 18:12 06/13/17 21:46 Eucerin (Large Jar) - TP 1 applic Q12H PRN Administration DRY SKIN Pantoprazole Sodium 40 mg 06/11/17 22:00 06/14/17 09:28 Protonix - PO 40 mg BID [facility] Administration Potassium Chloride 20 meq 06/12/17 11:00 06/14/17 09:28 Potassium Chloride Oral Liquid PO 20 meq DAILY [facility] Administration Problem List - Problems (1) Nausea & vomiting Code(s): R11.2 - NAUSEA WITH VOMITING, UNSPECIFIED (2) Epigastric abdominal tenderness Assessment/Plan: Resolved R>continue protonix on discharge Code(s): R10.816 - EPIGASTRIC ABDOMINAL TENDERNESS
--- NOTE | 2017-06-14 17:18 | PN ---
Progress Note (short form) - Note Progress Note: Renal follow up for GEOFF Pt seen and examined at the bedside no acute complaints Vital Signs Temperature 98.6 F 06/14/17 09:00 Pulse Rate 94 H 06/14/17 09:00 Respiratory Rate 20 06/14/17 09:00 Blood Pressure 128/71 06/14/17 09:00 O2 Sat by Pulse Oximetry (%) 94 L 06/14/17 09:00 Intake & Output 06/11/17 06/12/17 06/13/17 06/14/17 23:59 23:59 23:59 23:59 Intake Total 520 620 800 Output Total Balance 520 620 800 Weight 95.118 kg 100.726 kg 101.208 kg NAD but appears uncomfortable No JVd, MMM Neck supple RRR CTA soft NT/ND no LE edema CBC, BMP 06/13/17 11:04 06/13/17 11:04 87 year old woman with PMhx of IDDM, HTN, HLD, CHF, COPD who presented for evaluation of nausea, vomiting, cough and fevers and found to have GEOFF with Cr of 1.3. #Acute Kidney Injury in setting of volume depletion Renal function is improved and stable no need for further renal work up at this time continue oral intake as tolerated to follow up with PMD as outpatient Thank you David Olivares DO
== END 2017-06-14 16:35 | disposition home health service (06) | DRG 74 ==
LOC: JER 11:22 → JERBED 15:29 → J8W 17:44
PROVIDERS: ADMIT Family Medicine; ATTEND Family Medicine
DX: E11.43 Type 2 diabetes mellitus with diabetic autonomic (poly)neuropathy (principal); N17.9 Acute kidney failure, unspecified; E87.2 Acidosis; K31.84 Gastroparesis; E11.65 Type 2 diabetes mellitus with hyperglycemia; E86.0 Dehydration; E78.5 Hyperlipidemia, unspecified; I11.0 Hypertensive heart disease with heart failure; I50.9 Heart failure, unspecified; Z79.4 Long term (current) use of insulin; R10.9 Unspecified abdominal pain; E03.9 Hypothyroidism, unspecified; F03.90 Unspecified dementia, unspecified severity, without behavioral disturbance, psychotic disturbance, mood disturbance, and anxiety; D72.829 Elevated white blood cell count, unspecified; I25.10 Atherosclerotic heart disease of native coronary artery without angina pectoris; E66.01 Morbid (severe) obesity due to excess calories; Z68.39 Body mass index [BMI] 39.0-39.9, adult; J44.9 Chronic obstructive pulmonary disease, unspecified; K59.00 Constipation, unspecified
CPT/HCPCS: 36415; 71045-TC-FY; 74176-TC; 80053; 81003; 81015; 82378; 82803; 82962; 83036; 83605; 83690; 83735; 84439; 84443; 84484; 85025; 85610; 85730; 86301; 87040; 87086; 87804; 93005; 93010; 97116-GP; 97161-GP; 99283-25; J0131; J1644; J7030

== ENCOUNTER 2017-10-08 06:21 | Inpatient (IN) | payer OTHER ==
[2017-10-08] MEDS ORDERED: SODIUM CHLORIDE 1,000 ML IV STA (07:47)
[2017-10-08] MEDS ORDERED: ACETAMINOPHEN 1000 MG/100 ML VIAL (NON FORMULARY) IVPB ONE (07:48)
--- NOTE | 2017-10-08 07:48 | PDOC ---
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 She notes 10/ 10 pain to both lower legs and feet with L>R. She additionally notes subjective fever and nausea. She denies any vomiting, diarrhea, constipation, abdominal pain, chest pain, SOB, headache. - Physicial Exam PE: GENERAL: Awake, alert, and fully oriented, in no acute distress HEAD: No signs of trauma EYES: PERRLA, EOMI, sclera anicteric, conjunctiva clear ENT: Auricles normal inspection, hearing grossly normal, nares patent, oropharynx clear without exudates. Moist mucosa NECK: Normal ROM, supple, no lymphadenopathy, JVD, or masses LUNGS: Breath sounds equal, clear to auscultation bilaterally. No wheezes, and no crackles HEART: Regular rate and rhythm, normal S1 and S2, no murmurs, rubs or gallops ABDOMEN: Soft, nontender, normoactive bowel sounds. No guarding, no rebound. No masses EXTREMITIES: Normal range of motion, no edema. Bilateral cellulitic lower extremities L>R. Left left --> Diffusely errythematous Scaly, dry skin. Exquisite tenderness to palpation from her ankles to above knee. Right leg --> Patchy errythema, blanching, tenderness to palpation. No clubbing or cyanosis. NEUROLOGICAL: Cranial nerves II through XII grossly intact. Normal speech, normal gait SKIN: B/L LE errythema, warmth, scaling, pruritic. 10/08/17 10:49 <Jailene Almonte - Last Filed: 10/08/17 10:49> - Medical Decision Making 10/08/17 11:03 Pt presents to the ED complaining of worsening bilateral leg erythema, vomiting and subjective fevers at home. Afebrile in the Ed, but given the extent of her cellulitis Will treat with IV antibiotics and admit for cellulitis. <Rosetta Hall - Last Filed: 10/08/17 11:30>
[2017-10-08] MEDS ORDERED: VANCOMYCIN 1,500 MG in DEXTROSE 5%-WATER - 250 ML IVPB ONE (07:49)
[2017-10-08] MEDS ORDERED: PIPERACILLIN/TAZOB 4.5 GM 4.5 GM in DEXTROSE 5%-WATER 100 ML IVPB ONE (07:51)
[2017-10-08] MEDS ORDERED: ACETAMINOPHEN INJECTION 100 ML IVPB ONE (08:24)
[2017-10-08] MEDS ORDERED: PIPERACILLIN/TAZOB 4.5 GM 4.5 GM/100 ML BAG IVPB ONE (08:25)
[2017-10-08 08:38] LABS: EOS % 1.9 % (0-4.5); HEMATOCRIT 39.9 % (32.4-45.2); HEMOGLOBIN 13.5 GM/dL (10.7-15.3); LYMPH % 21.4 % (8-40); MCH 30.4 pg (25.7-33.7); MCHC 33.7 g/dl (32.0-36.0); MEAN CELL VOLUME 90.2 fl (80-96); MEAN PLT VOLUME 10.1 fl (7.5-11.1); MONO % 9.2 % (3.8-10.2); NEUT % 66.5 % (42.8-82.8); PLATELET COUNT 188 K/MM3 (134-434); RBC 4.43 M/mm3 (3.60-5.2); RDW 14.1 % (11.6-15.6); WHITE BLOOD COUNT 11.7 K/mm3 (4.0-10.0)
[2017-10-08] MEDS ORDERED: VANCOMYCIN 1 GRAM (PRE-DOCKED) 1,000 MG/250 ML BAG IVPB ONE (08:48)
[2017-10-08 08:50] LABS: INR 1.04 (0.82-1.09); PROTHROMBIN TIME (PATIENT) 11.8 SEC (9.7-13.0)
[2017-10-08 08:52] LABS: ACTIVATED PTT 32.4 SECONDS (25.2-36.5)
[2017-10-08 08:53] LABS: VENOUS PC02 56.3 mmHg (38-52); VENOUS PH 7.38 (7.32-7.42); VENOUS PO2 21.7 mmHg (28-48)
[2017-10-08 09:17] LABS: URINE APPEARANCE SLCLOUDY; URINE BILIRUBIN NEGATIVE (<2.0 mg/dL); URINE COLOR YELLOW; URINE GLUCOSE (UA) 3+ (NEGATIVE); URINE KETONE NEGATIVE (NEGATIVE); URINE LEUK ESTERASE NEGATIVE (NEGATIVE); URINE NITRITE NEGATIVE (NEGATIVE); URINE PROTEIN NEGATIVE (NEGATIVE)
--- NOTE | 2017-10-08 09:41 | PDOC ---
History of Present Illness - General Chief Complaint: Redness To Affected Area Stated Complaint: LEG PAIN Time Seen by Provider: 10/08/17 07:47 History Source: Patient, Family Exam Limitations: No Limitations - History of Present Illness Initial Comments: This is an 87 YOF with h/o chronic intermittent BLE cellulitis with edema, IDDM , HTN, HLD, CHF, and COPD who p/w one week of worsening BLE redness, pain, and itchiness acutely worsening for the past day. She notes 10/10 pain to both lower legs and feet with L>R. She additionally notes subjective fever and nausea. She has had similar BLE cellulitis before, tx with abx, but never this bad. She has not been on any new medications lately. She denies any vomiting, diarrhea, constipation, abdominal pain, chest pain, SOB, headache, or other symptoms. Past History - Past Medical History Allergies/Adverse Reactions: Allergies Allergy/AdvReac Type Severity Reaction Status Date / Time No Known Allergies Allergy Verified 10/08/17 06:23 Home Medications: Ambulatory Orders Acetaminophen [Tylenol .Regular Strength -] 650 mg PO Q4H PRN #0 tablet Insulin Sliding Scale [Novolog Vial Sliding Scale -] 1 vial SQ ACHS units 03/16 Atorvastatin Ca [Lipitor] 40 mg PO HS 06/08/17 Ranitidine [Zantac -] 150 mg PO BID 06/08/17 Pantoprazole Sodium [Protonix -] 40 mg PO BID #60 tablet.ec 06/14/17 Potassium Chloride 20 meq PO DAILY #30 tablet.er 06/14/17 Furosemide [Lasix] 40 mg PO DAILY 10/08/17 Insulin Degludec [Tresiba Flextouch U-100] 40 unit SQ DAILY 10/08/17 Tresiba Flextouch U-100 40 units SQ ACBK 10/08/17 Valsartan [Diovan] 160 mg PO DAILY 10/08/17 Anemia: No Asthma: Yes Cancer: Yes (SKIN) Cardiac Disorders: Yes (MITRAL VALVE PROLAPSE) COPD: Yes CHF: Yes Diabetes: Yes GI Disorders: Yes HTN: Yes Hypercholesterolemia: Yes Liver Disease: Yes (FATTY LIVER) Thyroid Disease: Yes - Surgical History Abdominal Surgery: Yes Cholecystectomy: Yes - Suicide/Smoking/Psychosocial Hx Smoking Status: Yes Smoking History: Never smoked Have you smoked in the past 12 months: No Number of Cigarettes Smoked Daily: 0 If you are a former smoker, when did you quit?: 1985 Cigars Per Day: 0 Information on smoking cessation initiated: No Hx Alcohol Use: No Drug/Substance Use Hx: No Substance Use Type: None Hx Substance Use Treatment: Yes Review of Systems - Review of Systems Able to Perform ROS?: Yes Constitutional: Yes: Fever. No: Chills, Unexplained wgt Loss HEENTM: No: Nose Congestion, Throat Pain Respiratory: No: Cough, Shortness of Breath Cardiac (ROS): Yes: Edema. No: Chest Pain, Palpitations ABD/GI: Yes: Nausea. No: Constipated, Diarrhea, Vomiting : No: Burning, Dysuria Musculoskeletal: Yes: Other (leg swelling and pain). No: Back Pain, Neck Pain Integumentary: Yes: Rash. No: Bruising Neurological: No: Headache, Numbness, Tingling, Weakness, Dizziness Endocrine: No: Unexplained Weight Gain, Unexplained Weight Loss *Physical Exam - Vital Signs Last Vital Signs Temp Pulse Resp BP Pulse Ox 99.0 F 89 18 114/62 96 10/08/17 06:23 10/08/17 06:23 10/08/17 06:23 10/08/17 06:23 10/08/17 06:23 - Physical Exam General Appearance: Yes: Nourished, Obese, Other (uncomfortable and a bit toxic appearing elderly female accompanied by daughter at bedside, Yi speaking, answering questions). No: Apparent Distress HEENT: positive: EOMI, PREETI, Normal Voice, Hearing Grossly Normal. negative: Scleral Icterus (R), Scleral Icterus (L), Nasal Congestion Neck: positive: Trachea midline, Supple. negative: Tender, Rigid Respiratory/Chest: positive: Lungs Clear, Normal Breath Sounds. negative: Respiratory Distress, Crackles, Rhonchi, Stridor, Wheezing Cardiovascular: positive: Regular Rhythm, Regular Rate, S1, S2, Edema (LLE>RLE) . negative: JVD, Murmur Gastrointestinal/Abdominal: positive: Normal Bowel Sounds, Soft. negative: Tender, Organomegaly, Pulsatile Mass, Guarding Musculoskeletal: positive: Normal Inspection. negative: Decreased Range of Motion, Vertebral Tenderness Extremity: positive: Normal Capillary Refill, Normal Inspection, Normal Range of Motion. negative: Tender, Cyanosis Integumentary: positive: Normal Color, Dry, Warm, Rash (LLE>RLE circumferential erythema/warmth/edema/ttp to lower leg from ankle to knee, no fluctuance or active drainage, distal DP pulses 2+ and equal, sensation intact). negative: Erythema, Bruising Neurologic: positive: brand ambassador promotional model II-XII NML intact (grossly), Fully Oriented, Alert, Normal Mood/Affect, Normal Response, Motor Strength 5/5, Responsive, Finger to Nose. negative: EOM Palsy, Facial Droop, Numbness, Sensory Deficit, Confused, Disoriented Heart Score/ECG Review #1 SR rate 84 with 1st degree AV block, normal axis, QTc auto-report is 519 but QT interval actually appears about 1/2 the R-R interval and thus is likely not this prolonged and is more likely borderline prolonged, no ischemic changes ED Treatment Course - LABORATORY CBC & Chemistry Diagram: 10/09/17 08:16 10/09/17 08:16 - ADDITIONAL ORDERS Additional order review: Laboratory Results 10/08/17 10/08/17 10/08/17 09:11 08:25 08:25 PT with INR INR PTT (Actin FS) VBG pH POC VBG pCO2 POC VBG pO2 Mixed VBG HCO3 Sodium Potassium Chloride Carbon Dioxide Anion Gap BUN Creatinine Creat Clearance w eGFR Random Glucose Calcium Total Bilirubin AST ALT Alkaline Phosphatase Creatine Kinase CK-MB (CK-2) Troponin I Cancelled Total Protein Albumin Urine Color Yellow Urine Appearance Slcloudy Urine pH 5.0 Ur Specific Collins 1.018 Urine Protein Negative Urine Glucose (UA) 3+ H Urine Ketones Negative Urine Blood Negative Urine Nitrite Negative Urine Bilirubin Negative Urine Urobilinogen 2.0 H Ur Leukocyte Esterase Negative Blood Type Cancelled Antibody Screen Cancelled 10/08/17 10/08/17 10/08/17 08:25 08:25 08:25 PT with INR 11.80 INR 1.04 PTT (Actin FS) 32.4 VBG pH 7.38 POC VBG pCO2 56.3 H POC VBG pO2 21.7 L D Mixed VBG HCO3 32.2 H Sodium Cancelled Potassium Cancelled Chloride Cancelled Carbon Dioxide Cancelled Anion Gap Cancelled BUN Cancelled Creatinine Cancelled Creat Clearance w eGFR Cancelled Random Glucose Cancelled Calcium Cancelled Total Bilirubin Cancelled AST Cancelled ALT Cancelled Alkaline Phosphatase Cancelled Creatine Kinase Cancelled CK-MB (CK-2) Cancelled Troponin I Total Protein Cancelled Albumin Cancelled Urine Color Urine Appearance Urine pH Ur Specific Collins Urine Protein Urine Glucose (UA) Urine Ketones Urine Blood Urine Nitrite Urine Bilirubin Urine Urobilinogen Ur Leukocyte Esterase Blood Type Antibody Screen 10/08/17 08:25 RBC 4.43 MCV 90.2 MCHC 33.7 RDW 14.1 MPV 10.1 Neutrophils % 66.5 Lymphocytes % 21.4 Monocytes % 9.2 Eosinophils % 1.9 Basophils % 1.0 - RADIOLOGY Radiology Studies Ordered: Category Date Time Status CHEST X-RAY PORTABLE* [RAD] Stat Radiology 10/08/17 07:47 Taken - Medications Given in the ED: ED Medications Discontinued Medications Generic Name Dose Route Start Last Admin Trade Name Freq PRN Reason Stop Dose Admin Acetaminophen 1,000 mg 10/08/17 07:48 10/08/17 08:38 Ofirmev Injection - IVPB 10/08/17 07:49 1,000 mg ONCE ONE Administration Sodium Chloride 1,000 mls @ 1,000 mls/hr 10/08/17 07:47 10/08/17 08:38 Normal Saline - IV 10/08/17 08:46 1,000 mls/hr ASDIR STA Administration Piperacillin Sod/Tazobactam 100 mls @ 200 mls/hr 10/08/17 07:51 10/08/17 08: 39 Sod 4.5 gm/ Dextrose IVPB 10/08/17 08:20 200 mls/hr ONCE ONE Administration Protocol Medical Decision Making - Medical Decision Making Pt p/w LE redness/warmth/pain. Initial Vital Signs Temp Pulse Resp BP Pulse Ox 99.0 F 89 18 114/62 96 10/08/17 06:23 10/08/17 06:23 10/08/17 06:23 10/08/17 06:23 10/08/17 06:23 Exam: Results as noted in Physical Exam section. DDX IBNLT: cellulitis, drug rash, contact dermatitis, DVT, sepsis, CHF, necrotizing soft tissue infection, osteomyelitis, superficial venous thrombosis , PVD, pulmonary HTN, etc W/U ordered: CBCD CMP Mg Phos Lactate BCx Coags T&S EKG CXR TX ordered: Ofirmev, vancomycin, Zosyn Shortly after starting vancomycin IVPB patient begins vomiting. Vancomycin IVPB stopped momentarily. EKG automatic readout suggests QTc is 519 but QT is 440 and QT is about 1/2 RR on visual inspection. Zofran 4 mg IVPUSH and Mg 1 gm IVPB ordered and given. Patient subsequently reports bodily itching and mild tongue swelling. Vancomycin discontinued and Benadryl 50 mg and Decadron 10 mg IVPUSH ordered. Patient is kept NPO. EKG: Reviewed; results as noted in ECG Review section. CXR: Nothing acute. Laboratory Tests 10/08/17 10/08/17 10/08/17 08:25 08:25 08:25 WBC 11.7 H RBC 4.43 Hgb 13.5 Hct 39.9 MCV 90.2 MCH 30.4 MCHC 33.7 RDW 14.1 Plt Count 188 D MPV 10.1 Absolute Neuts (auto) 7.8 Neutrophils % 66.5 Lymphocytes % 21.4 Monocytes % 9.2 Eosinophils % 1.9 Basophils % 1.0 Nucleated RBC % 0 PT with INR 11.80 INR 1.04 PTT (Actin FS) 32.4 VBG pH 7.38 POC VBG pCO2 56.3 H POC VBG pO2 21.7 L D Mixed VBG HCO3 32.2 H Sodium Potassium Chloride Carbon Dioxide Anion Gap BUN Creatinine Creat Clearance w eGFR Random Glucose Lactic Acid Calcium Phosphorus Magnesium Total Bilirubin AST ALT Alkaline Phosphatase Creatine Kinase CK-MB (CK-2) Troponin I B-Natriuretic Peptide Total Protein Albumin Urine Color Urine Appearance Urine pH Ur Specific Collins Urine Protein Urine Glucose (UA) Urine Ketones Urine Blood Urine Nitrite Urine Bilirubin Urine Urobilinogen Ur Leukocyte Esterase Blood Type Antibody Screen 10/08/17 10/08/17 10/08/17 08:25 08:25 08:25 WBC RBC Hgb Hct MCV MCH MCHC RDW Plt Count MPV Absolute Neuts (auto) Neutrophils % Lymphocytes % Monocytes % Eosinophils % Basophils % Nucleated RBC % PT with INR INR PTT (Actin FS) VBG pH POC VBG pCO2 POC VBG pO2 Mixed VBG HCO3 Sodium Cancelled Potassium Cancelled Chloride Cancelled Carbon Dioxide Cancelled Anion Gap Cancelled BUN Cancelled Creatinine Cancelled Creat Clearance w eGFR Cancelled Random Glucose Cancelled Lactic Acid Calcium Cancelled Phosphorus Magnesium Total Bilirubin Cancelled AST Cancelled ALT Cancelled Alkaline Phosphatase Cancelled Creatine Kinase Cancelled CK-MB (CK-2) Cancelled Troponin I Cancelled B-Natriuretic Peptide Total Protein Cancelled Albumin Cancelled Urine Color Urine Appearance Urine pH Ur Specific Collins Urine Protein Urine Glucose (UA) Urine Ketones Urine Blood Urine Nitrite Urine Bilirubin Urine Urobilinogen Ur Leukocyte Esterase Blood Type Cancelled Antibody Screen Cancelled 10/08/17 10/08/17 10/08/17 08:36 09:11 10:20 WBC RBC Hgb Hct MCV MCH MCHC RDW Plt Count MPV Absolute Neuts (auto) Neutrophils % Lymphocytes % Monocytes % Eosinophils % Basophils % Nucleated RBC % PT with INR 11.80 INR 1.04 PTT (Actin FS) 32.6 VBG pH POC VBG pCO2 POC VBG pO2 Mixed VBG HCO3 Sodium Potassium Chloride Carbon Dioxide Anion Gap BUN Creatinine Creat Clearance w eGFR Random Glucose Lactic Acid 2.0 Calcium Phosphorus Magnesium Total Bilirubin AST ALT Alkaline Phosphatase Creatine Kinase CK-MB (CK-2) Troponin I B-Natriuretic Peptide Total Protein Albumin Urine Color Yellow Urine Appearance Slcloudy Urine pH 5.0 Ur Specific Collins 1.018 Urine Protein Negative Urine Glucose (UA) 3+ H Urine Ketones Negative Urine Blood Negative Urine Nitrite Negative Urine Bilirubin Negative Urine Urobilinogen 2.0 H Ur Leukocyte Esterase Negative Blood Type Antibody Screen 10/08/17 10:20 WBC RBC Hgb Hct MCV MCH MCHC RDW Plt Count MPV Absolute Neuts (auto) Neutrophils % Lymphocytes % Monocytes % Eosinophils % Basophils % Nucleated RBC % PT with INR INR PTT (Actin FS) VBG pH POC VBG pCO2 POC VBG pO2 Mixed VBG HCO3 Sodium 137 Potassium 3.8 Chloride 96 L Carbon Dioxide 32 Anion Gap 9 BUN 19 H Creatinine 1.1 H Creat Clearance w eGFR 47.09 Random Glucose 298 H Lactic Acid Calcium 8.5 Phosphorus 2.9 Magnesium 1.9 Total Bilirubin 1.2 H AST 22 ALT 22 Alkaline Phosphatase 139 H Creatine Kinase 60 CK-MB (CK-2) Troponin I 0.02 B-Natriuretic Peptide 1643.10 H Total Protein 6.7 Albumin 2.9 L Urine Color Urine Appearance Urine pH Ur Specific Collins Urine Protein Urine Glucose (UA) Urine Ketones Urine Blood Urine Nitrite Urine Bilirubin Urine Urobilinogen Ur Leukocyte Esterase Blood Type Antibody Screen Reassessment: Exam unchanged. ADMIT The Pt is unsafe for discharge at this time. They require further hospital observation, workup, and treatment. Microblog sent to [facility] for admission. Spoke with Leslie Martinez, in agreement Pt to be admitted to Dr. Barnett for PCP Dr. Back. Decision to Admit order placed to IP Med/Surg. Consult placed to Dr. Grant at the request of Leslie Martinez. *DC/Admit/Observation/Transfer Diagnosis at time of Disposition: Cellulitis of leg, except foot, Hyperglycemia Leukocytosis Qualifiers: Leukocytosis type: unspecified Qualified Code(s): D72.829 - Elevated white blood cell count, unspecified - Discharge Dispostion Condition at time of disposition: Guarded Decision to Admit order: Yes - Referrals - Patient Instructions - Post Discharge Activity
[2017-10-08] MEDS ORDERED: VANCOMYCIN 1,500 MG in DEXTROSE 5%-WATER - 500 ML IVPB ONE (10:00)
[2017-10-08] MEDS ORDERED: ONDANSETRON 4 MG/2 ML VIAL IVPUSH ONE (10:35)
[2017-10-08] MEDS ORDERED: MAGNESIUM SULF 50% (8.12 MEQ/2 ML-1 GM VIAL) IVPB ONE (10:35)
[2017-10-08 10:55] LABS: INR 1.04 (0.82-1.09); PROTHROMBIN TIME (PATIENT) 11.8 SEC (9.7-13.0)
[2017-10-08 10:57] LABS: ACTIVATED PTT 32.6 SECONDS (25.2-36.5); ALBUMIN 2.9 g/dl (3.4-5.0); ANION GAP 9 (8-16); BLOOD UREA NITROGEN 19 mg/dL (7-18); CALCIUM 8.5 mg/dL (8.5-10.1); CHLORIDE 96 mmol/L (98-107); CO2 32 mmol/L (21-32); GLUCOSE,RANDOM 298 mg/dL (74-106); SGPT/ALT 22 U/L (12-78); SODIUM 137 mmol/L (136-145)
[2017-10-08 11:02] LABS: ALK PHOS 139 U/L (45-117); BILIRUBIN,TOTAL 1.2 mg/dL (0.2-1.0); CREATININE 1.1 mg/dL (0.55-1.02); PHOSPHOROUS 2.9 mg/dL (2.5-4.9); TOT PROT 6.7 g/dl (6.4-8.2)
[2017-10-08 11:07] LABS: MAGNESIUM 1.9 mg/dL (1.8-2.4); POTASSIUM 3.8 mmol/L (3.5-5.1); SGOT/AST 22 U/L (15-37)
[2017-10-08] MEDS ORDERED: MAGNESIUM 1GM/D5W - 1 GM/100 ML IVPB IVPB ONE (11:55)
[2017-10-08] MEDS ORDERED: ONDANSETRON 4 MG/2 ML VIAL ONE (11:55)
[2017-10-08] MEDS ORDERED: DEXAMETHASONE SOD PHOSPHATE 10 MG/1 ML VIAL ONE (12:04)
[2017-10-08] MEDS ORDERED: DEXAMETHASONE SOD PHOSPHATE 10 MG/1 ML VIAL IVPUSH ONE (12:04)
[2017-10-08] MEDS ORDERED: INSULIN SLIDING SCALE (NOVOLOG) 1 VIAL SQ SCH (16:30)
[2017-10-08 17:13] VITALS: BMI 35.6
[2017-10-08] MEDS: RANITIDINE HCL 150 MG TABLET (FP) PO SCH (21:47)
[2017-10-08] MEDS: HEPARIN NA (PORCINE) 5,000 UNITS/ML 1ML VIAL SQ SCH (21:47)
[2017-10-08] MEDS: PANTOPRAZOLE 40 MG TABLET (FP) PO SCH (21:47)
[2017-10-08] MEDS: ATORVASTATIN CA 40 MG TABLET (FP) PO SCH (21:47)
[2017-10-08] MEDS ORDERED: INSULIN (NOVOLOG) ASPART 100 UNITS/ML 10ML VIAL SQ ONE (22:00)
[2017-10-08] MEDS: INSULIN SLIDING SCALE (NOVOLOG) 1 VIAL SQ SCH (22:12)
[2017-10-09] MEDS ORDERED: INSULIN (NOVOLOG) ASPART 100 UNITS/ML 10ML VIAL SQ ONE (00:17)
[2017-10-09] MEDS ORDERED: SODIUM CHLORIDE 250 ML IV STA (00:20)
[2017-10-09] MEDS: ACETAMINOPHEN 325 MG TABLET (FP) PO PRN ×3 (00:35→22:13)
[2017-10-09] MEDS: INSULIN SLIDING SCALE (NOVOLOG) 1 VIAL SQ SCH ×4 (06:17→22:15)
[2017-10-09 08:38] LABS: BASO % 0.4 % (0-2.0); HEMATOCRIT 38.1 % (32.4-45.2); HEMOGLOBIN 12.9 GM/dL (10.7-15.3); MCH 30.3 pg (25.7-33.7); MCHC 33.8 g/dl (32.0-36.0); MEAN CELL VOLUME 89.6 fl (80-96); MEAN PLT VOLUME 9.4 fl (7.5-11.1); MONO % 7.8 % (3.8-10.2); NEUT % 74.8 % (42.8-82.8); PLATELET COUNT 194 K/MM3 (134-434); RBC 4.25 M/mm3 (3.60-5.2); RDW 13.7 % (11.6-15.6); WHITE BLOOD COUNT 12.1 K/mm3 (4.0-10.0)
[2017-10-09 09:09] LABS: CHLORIDE 103 mmol/L (98-107); POTASSIUM 3.7 mmol/L (3.5-5.1); SODIUM 140 mmol/L (136-145)
--- NOTE | 2017-10-09 09:13 | EKG ---
Test Reason : Blood Pressure : / mmHG Vent. Rate : 084 BPM Atrial Rate : 084 BPM P-R Int : 246 ms QRS Dur : 098 ms QT Int : 440 ms P-R-T Axes : 090 -08 093 degrees QTc Int : 519 ms SINUS RHYTHM WITH 1ST DEGREE A-V BLOCK WITH OCCASIONAL PREMATURE VENTRICULAR COMPLEXES AND PREMATURE ATRIAL COMPLEXES NONSPECIFIC T WAVE ABNORMALITY SUSPECT LEAD REVERSAL V2/V3 PROLONGED QT ABNORMAL ECG WHEN COMPARED WITH ECG OF 13-JUN-2017 12:13, COMPARED TO EKG NO SIGNIFICANT CHANGE IS FOUND Confirmed by LATANYA BOYCE MD ([id number]) on 10/09/2017 9:13:50 AM Referred By: Confirmed By:LATANYA BOYCE MD
[2017-10-09 09:20] LABS: ALBUMIN 2.7 g/dl (3.4-5.0); ALK PHOS 126 U/L (45-117); ANION GAP 11 (8-16); BLOOD UREA NITROGEN 26 mg/dL (7-18); CALCIUM 8.9 mg/dL (8.5-10.1); CO2 26 mmol/L (21-32); CREATININE 1.1 mg/dL (0.55-1.02); GLUCOSE,RANDOM 200 mg/dL (74-106); MAGNESIUM 2.1 mg/dL (1.8-2.4); SGOT/AST 20 U/L (15-37); SGPT/ALT 22 U/L (12-78); TOT PROT 6.4 g/dl (6.4-8.2)
[2017-10-09] MEDS: HEPARIN NA (PORCINE) 5,000 UNITS/ML 1ML VIAL SQ SCH ×2 (10:07→22:12)
[2017-10-09] MEDS: POTASSIUM CHLORIDE TABS 20 MEQ TABLET.ER (FP) PO SCH (10:08)
[2017-10-09] MEDS: RANITIDINE HCL 150 MG TABLET (FP) PO SCH ×2 (10:08→22:13)
[2017-10-09] MEDS: PANTOPRAZOLE 40 MG TABLET (FP) PO SCH ×2 (10:08→22:13)
--- NOTE | 2017-10-09 10:23 | PN ---
Progress Note (short form) - Note Progress Note: ID Full note dicatated LLEstela cullulitis Selected Entries 10/09/17 09:46 Temperature 98.0 F Pulse Rate 82 Respiratory 20 Rate Microbiology 10/08/17 09:11 Urine - Urine Clean Catch Urine Culture - Final Contaminated: Please Repeat 10/08/17 08:25 Blood - Peripheral Venous Blood Culture - Preliminary NO GROWTH OBTAINED AFTER 24 HOURS, INCUBATION TO CONTINUE FOR 4 DAYS. 10/08/17 08:25 Blood - Peripheral Venous Blood Culture - Preliminary NO GROWTH OBTAINED AFTER 24 HOURS, INCUBATION TO CONTINUE FOR 4 DAYS. Laboratory Tests 10/09/17 10/09/17 08:16 08:16 WBC 12.1 H Hgb 12.9 Plt Count 194 BUN 26 H Creatinine 1.1 H Creat Clearance w eGFR 47.09 Rx Cefazolin with switch to Keflex 500mg tid Rudy MARQUEZ Problem List - Problems (1) Cellulitis of leg, except foot Code(s): L03.119 - CELLULITIS OF UNSPECIFIED PART OF LIMB (2) Diabetes mellitus with peripheral vascular disease Code(s): E11.51 - TYPE 2 DIABETES W DIABETIC PERIPHERAL ANGIOPATH W/O GANGRENE
--- NOTE | 2017-10-09 11:01 | HP ---
Admitting History and Physical - Primary Care Physician PCP: Tyrell Back - Admission History of Present Illness: The patient is an 87 year old female with PMHx of chronic intermittent b/l LE cellulitis with edema, IDDM, HTN, HLD, CHF, and COPD who presents with 1 week of worsening b/l LE redness, pain, and itchiness for the past day. She notes 10/ 10 pain to both lower legs and feet with L>R. She additionally notes subjective fever and nausea. She denies any vomiting, diarrhea, constipation, abdominal pain, chest pain, SOB, headache. 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 2011 dobut MIBI: no STs ; moderate reversible defect anterior and lateral faith confounded by large breast shadow; nl EF -> pt didn't follow as outpt as planned (was on DATP for a little while). Echo 09/13: nl LVEF, nl RV, nl valve fxn), HTN, Hyperlipdemia Pulmonary: Yes: COPD Gastrointestinal: Yes: Constipation Heme/Onc: Yes: Cancer (thyroid) Endocrine: Yes: Diabetes Mellitus (insulin-dependent for years -> uncontrolled) , Hypothyroidism Dermatology: Yes: Cellulitis (in past, with chronic and intermittent edema) - Smoking History Smoking history: Never smoked Have you smoked in the past 12 months: No Aproximately how many cigarettes per day: 0 If you are a former smoker, when did you quit?: 1984 - Alcohol/Substance Use Hx Alcohol Use: No History of Substance Use: reports: None - Social History History of Recent Travel: No Home Medications - Allergies Allergies/Adverse Reactions: Allergies Allergy/AdvReac Type Severity Reaction Status Date / Time No Known Allergies Allergy Verified 10/08/17 06:23 - Home Medications Home Medications: Ambulatory Orders Acetaminophen [Tylenol .Regular Strength -] 650 mg PO Q4H PRN #0 tablet Insulin Sliding Scale [Novolog Vial Sliding Scale -] 1 vial SQ ACHS units 03/16 Atorvastatin Ca [Lipitor] 40 mg PO HS 06/08/17 Ranitidine [Zantac -] 150 mg PO BID 06/08/17 Pantoprazole Sodium [Protonix -] 40 mg PO BID #60 tablet.ec 06/14/17 Potassium Chloride 20 meq PO DAILY #30 tablet.er 06/14/17 Furosemide [Lasix] 40 mg PO DAILY 10/08/17 Insulin Degludec [Tresiba Flextouch U-100] 40 unit SQ DAILY 10/08/17 Tresiba Flextouch U-100 40 units SQ ACBK 10/08/17 Valsartan [Diovan] 160 mg PO DAILY 10/08/17 Family Disease History - Family Disease History Family Disease History: Diabetes: Daughter Physical Examination Vital Signs: Vital Signs Temperature 98.0 F 10/09/17 09:46 Pulse Rate 82 10/09/17 09:46 Respiratory Rate 20 10/09/17 09:46 Blood Pressure 155/77 10/09/17 09:46 O2 Sat by Pulse Oximetry (%) 96 10/08/17 21:00 Constitutional: Yes: Calm Cardiovascular: Yes: Regular Rate and Rhythm, S1, S2 Respiratory: Yes: CTA Bilaterally, Diminished (at bases) Gastrointestinal: Yes: Normal Bowel Sounds, Soft, Abdomen, Obese Extremities: Yes: Erythema (of LLE with dry scaling skin RLE patchy erythema noted) Labs: CBC, BMP 10/09/17 08:16 10/09/17 08:16 Problem List - Problems (1) Cellulitis of leg, except foot Assessment/Plan: ID consult appreciated iv abx cefazolin- then switch to keflex will trend wbc afebrile PT saw patient Code(s): L03.119 - CELLULITIS OF UNSPECIFIED PART OF LIMB (2) Diabetes mellitus, insulin dependent (IDDM), uncontrolled Assessment/Plan: insulin levemir 20 units HS bgm hgba1c 8.2 endocrine consult Code(s): E10.65 - TYPE 1 DIABETES MELLITUS WITH HYPERGLYCEMIA Qualifiers: Diabetes mellitus complication status: with unspecified complications (3) Hypothyroid Assessment/Plan: check tsh and free t4 Code(s): E03.9 - HYPOTHYROIDISM, UNSPECIFIED
[2017-10-09] MEDS ORDERED: ceFAZolin SODIUM 1 GM VIAL ONE ×2 (11:20→17:50)
[2017-10-09] MEDS ORDERED: DEXTROSE 5%-WATER - 50 ML IVPB ONE ×2 (11:20→17:50)
[2017-10-09] MEDS: CEFAZOLIN 1 GM in DEXTROSE 5%-WATER - 50 ML IVPB SCH ×2 (11:31→17:53)
[2017-10-09] MEDS ORDERED: INSULIN (NOVOLOG) ASPART 100 UNITS/ML 10ML VIAL ONE (12:10)
--- NOTE | 2017-10-09 13:00 | CONS ---
DATE OF CONSULTATION: DATE OF DICTATION: 10/09/2017 INFECTIOUS DISEASE CONSULT HISTORY OF PRESENT ILLNESS: This is an 87-year-old female with a history of diabetes and peripheral vascular disease who I am asked to see for worsening erythema of the left lower extremity over the last week. The patient is a poor historian but denies any fever or chills associated with her left leg findings. PAST MEDICAL HISTORY: Includes insulin-dependent diabetes, hypertension, peripheral vascular disease, CHF, hyperlipidemia, COPD. CURRENT MEDICATIONS: Include Zantac, Lipitor, insulin, Protonix, K-Dur. ALLERGIES: None known. SOCIAL HISTORY: [place] immigrant living in the [place] for many years, nonsmoker, gave this up in 1984, no history of alcohol use. FAMILY HISTORY: Patient unable to provide. REVIEW OF SYSTEMS: Respiratory: No cough, shortness of breath. Cardiac: No chest pain, palpitations, syncope. Gastrointestinal: No abdominal pain, vomiting, diarrhea. Genitourinary: No dysuria, hematuria, or frequency. PHYSICAL EXAMINATION: General Appearance: A heavyset woman, alert, and in no acute distress. Vital Signs: Temperature 98, pulse 82, blood pressure 155/77, respirations 20. Neck: Supple without adenopathy. Lungs: Clear to percussion and auscultation. Heart: S1, S2. Regular rhythm without audible murmur or gallop. Abdomen: Soft, nontender, without hepatosplenomegaly. No guarding. No rebound. Extremities: Revealed eczematoid rash of both lower legs with swelling, confluent erythema, and warmth to the left lower extremity. No open wounds were appreciated. LABORATORY DATA: The white count was 12.1, hemoglobin 12.9, platelets of 194. BUN 26, creatinine 1.1. Liver enzymes: Alkaline phosphatase 126. Admitting glucose 541. Urinalysis with negative leukocyte esterase. Two sets of blood cultures, no growth. ASSESSMENT: An 87-year-old female with known diabetes and multiple comorbidities presents with a history of lower extremity eczema which she acknowledges scratching. Findings currently include what appears to be cellulitis of the left lower extremity in the absence of any open wound, ulcers, or abscesses. She is not toxic nor febrile and can be treated with cefazolin 1 g q.8 hours, elevated the leg, and switch to Keflex 500 mg p.o. t.i.d. over the next 24-48 hours. ASIYA MOE M.D. MICHELA/[id number]
[2017-10-09] MEDS: ATORVASTATIN CA 40 MG TABLET (FP) PO SCH (22:13)
[2017-10-09] MEDS: INSULIN (LEVEMIR) 100 UNITS/ML UNITS SQ SCH (22:14)
[2017-10-10] MEDS ORDERED: DEXTROSE 5%-WATER - 50 ML IVPB ONE ×3 (01:29→10:06)
[2017-10-10] MEDS ORDERED: ceFAZolin SODIUM 1 GM VIAL ONE ×3 (01:29→10:06)
[2017-10-10] MEDS: CEFAZOLIN 1 GM in DEXTROSE 5%-WATER - 50 ML IVPB SCH ×3 (01:50→18:23)
[2017-10-10] MEDS: INSULIN SLIDING SCALE (NOVOLOG) 1 VIAL SQ SCH ×4 (06:46→22:07)
--- NOTE | 2017-10-10 08:48 | PN ---
Progress Note, Physician - Current Medication List Current Medications: Active Medications Acetaminophen (Tylenol -) 650 mg PO Q4H PRN PRN Reason: FEVER Last Admin: 10/09/17 22:13 Dose: 650 mg Atorvastatin Calcium (Lipitor -) 40 mg PO HS [facility] Last Admin: 10/09/17 22:13 Dose: 40 mg Heparin Sodium (Porcine) (Heparin -) 5,000 unit SQ BID [facility] Last Admin: 10/09/17 22:12 Dose: 5,000 unit Cefazolin Sodium 1 gm/ (Dextrose) 50 mls @ 100 mls/hr IVPB Q8H-IV [facility] Last Admin: 10/10/17 01:50 Dose: 100 mls/hr Insulin Aspart (Novolog Vial Sliding Scale -) [address] [facility]; Protocol Last Admin: 10/10/17 06:46 Dose: Not Given Insulin Detemir (Levemir Vial) 20 units SQ HS [facility] Last Admin: 10/09/17 22:14 Dose: 20 unit Pantoprazole Sodium (Protonix -) 40 mg PO BID [facility] Last Admin: 10/09/17 22:13 Dose: 40 mg Potassium Chloride (K-Dur -) 20 meq PO DAILY [facility] Last Admin: 10/09/17 10:08 Dose: 20 meq Ranitidine HCl (Zantac -) 150 mg PO BID [facility] Last Admin: 10/09/17 22:13 Dose: 150 mg - Objective Vital Signs: Vital Signs Temperature 97.8 F 10/10/17 06:00 Pulse Rate 94 H 10/10/17 06:00 Respiratory Rate 20 10/10/17 06:00 Blood Pressure 157/98 10/10/17 06:00 O2 Sat by Pulse Oximetry (%) 96 10/09/17 21:00 Cardiovascular: Yes: S1, S2 Respiratory: Yes: Regular, CTA Bilaterally Gastrointestinal: Yes: Normal Bowel Sounds, Soft Integumentary: Yes: Erythema, Venous Stasis Changes Neurological: Yes: Alert, Oriented Labs: CBC, BMP 10/09/17 08:16 10/09/17 08:16 INR, PTT INR 1.04 (0.82-1.09) 10/08/17 10:20 Assessment/Plan - Problems (1) Cellulitis of leg, except foot Assessment/Plan: ID consult appreciated iv abx cefazolin- then switch to keflex will trend wbc afebrile PT saw patient Code(s): L03.119 - CELLULITIS OF UNSPECIFIED PART OF LIMB (2) Diabetes mellitus, insulin dependent (IDDM), uncontrolled Assessment/Plan: insulin levemir 20 units HS bgm hgba1c 8.2 endocrine consult Code(s): E10.65 - TYPE 1 DIABETES MELLITUS WITH HYPERGLYCEMIA Qualifiers: Diabetes mellitus complication status: with unspecified complications (3) Hypothyroid Assessment/Plan: check tsh and free t4 Code(s): E03.9 - HYPOTHYROIDISM, UNSPECIFIED Physical Therapy
[2017-10-10] MEDS: VALSARTAN 160 MG TABLET (UD) PO SCH (10:17)
[2017-10-10] MEDS: HEPARIN NA (PORCINE) 5,000 UNITS/ML 1ML VIAL SQ SCH ×2 (10:17→22:04)
[2017-10-10] MEDS: POTASSIUM CHLORIDE TABS 20 MEQ TABLET.ER (FP) PO SCH (10:20)
[2017-10-10] MEDS: RANITIDINE HCL 150 MG TABLET (FP) PO SCH ×2 (10:20→22:04)
[2017-10-10] MEDS: PANTOPRAZOLE 40 MG TABLET (FP) PO SCH ×2 (10:20→22:04)
[2017-10-10 10:22] LABS: BASO % 0.6 % (0-2.0); EOS % 3.3 % (0-4.5); HEMATOCRIT 40.9 % (32.4-45.2); HEMOGLOBIN 13.5 GM/dL (10.7-15.3); LYMPH % 28.4 % (8-40); MCH 30.3 pg (25.7-33.7); MCHC 33.1 g/dl (32.0-36.0); MEAN CELL VOLUME 91.5 fl (80-96); MEAN PLT VOLUME 9.7 fl (7.5-11.1); MONO % 9.2 % (3.8-10.2); NEUT % 58.5 % (42.8-82.8); PLATELET COUNT 237 K/MM3 (134-434); RBC 4.47 M/mm3 (3.60-5.2); RDW 14.2 % (11.6-15.6); WHITE BLOOD COUNT 9.8 K/mm3 (4.0-10.0)
[2017-10-10] MEDS: FUROSEMIDE 40 MG TABLET (FP) PO SCH (10:34)
[2017-10-10] MEDS ORDERED: BISACODYL 10 MG SUPP.RECT RC PRN (10:59)
[2017-10-10 11:07] LABS: ANION GAP 8 (8-16); BLOOD UREA NITROGEN 23 mg/dL (7-18); CHLORIDE 104 mmol/L (98-107); CO2 31 mmol/L (21-32); GLUCOSE,RANDOM 184 mg/dL (74-106); POTASSIUM 4.3 mmol/L (3.5-5.1); SODIUM 143 mmol/L (136-145)
--- NOTE | 2017-10-10 11:37 | CONSULT ---
Consult Consult Specialty:: endocrine Referred by:: francesca macias md Reason for Consultation:: diabetes mellitus - History of Present Illness Chief Complaint: high sugars History of Present Illness: 87 YOF with h/o chronic intermittent BLE cellulitis with edema, IDDM, HTN, HLD, CHF, and COPD who p/w one week of worsening BLE redness, pain, and itchiness acutely worsening for the past day. She notes 10/10 pain to both lower legs and feet with L>R. She additionally notes subjective fever and nausea. She has had similar BLE cellulitis before, tx with abx, but never this bad. She has not been on any new medications lately. 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 2011 dobut MIBI: no STs ; moderate reversible defect anterior and lateral faith confounded by large breast shadow; nl EF -> pt didn't follow as outpt as planned (was on DATP for a little while). Echo 09/13: nl LVEF, nl RV, nl valve fxn), HTN, Hyperlipdemia Pulmonary: Yes: COPD Gastrointestinal: Yes: Constipation Endocrine: Yes: Diabetes Mellitus (insulin-dependent for years -> uncontrolled) , Hypothyroidism Dermatology: Yes: Cellulitis (in past, with chronic and intermittent edema) - Alcohol/Substance Use Hx Alcohol Use: No History of Substance Use: reports: None - Smoking History Smoking history: Never smoked Have you smoked in the past 12 months: No Aproximately how many cigarettes per day: 0 If you are a former smoker, when did you quit?: 1984 - Social History Usual Living Arrangement: With Spouse (who is on HD) History of Recent Travel: No Home Medications - Allergies Allergies/Adverse Reactions: Allergies Allergy/AdvReac Type Severity Reaction Status Date / Time No Known Allergies Allergy Verified 10/08/17 06:23 - Home Medications Home Medications: Ambulatory Orders Acetaminophen [Tylenol .Regular Strength -] 650 mg PO Q4H PRN #0 tablet 04/30/ 16 Insulin Sliding Scale [Novolog Vial Sliding Scale -] 1 vial SQ ACHS units 03/16 Atorvastatin Ca [Lipitor] 40 mg PO HS 06/08/17 Ranitidine [Zantac -] 150 mg PO BID 06/08/17 Pantoprazole Sodium [Protonix -] 40 mg PO BID #60 tablet.ec 06/14/17 Potassium Chloride 20 meq PO DAILY #30 tablet.er 06/14/17 Furosemide [Lasix] 40 mg PO DAILY 10/08/17 Insulin Degludec [Tresiba Flextouch U-100] 40 unit SQ DAILY 10/08/17 Tresiba Flextouch U-100 40 units SQ ACBK 10/08/17 Valsartan [Diovan] 160 mg PO DAILY 10/08/17 Family Disease History - Family Disease History Family Disease History: Diabetes: Daughter Review of Systems - Review of Systems Constitutional: reports: Lethargy, Weakness Eyes: reports: Blurred Vision HENT: reports: No Symptoms Neck: reports: No Symptoms Cardiovascular: reports: Shortness of Breath Respiratory: reports: Exercise Intolerance Gastrointestinal: reports: Bloating, Constipation Genitourinary: reports: No Symptoms Breasts: reports: No Symptoms Reported Musculoskeletal: reports: Extremity Pain, Joint Swelling, Muscle Pain, Muscle Cramps, Muscle Weakness Integumentary: reports: Eczema, Lesions, Pruritis, Rash, Wound Neurological: reports: Unsteady Gait, Weakness Endocrine: reports: Increased Thirst, Unexplained Weight Gain Psychiatric: reports: No Symptoms Physical Exam Vital Signs: Vital Signs Temperature 97.8 F 10/10/17 10:01 Pulse Rate 105 H 10/10/17 10:01 Respiratory Rate 20 10/10/17 10:01 Blood Pressure 142/62 10/10/17 10:01 O2 Sat by Pulse Oximetry (%) 96 10/09/17 21:00 Constitutional: Yes: Calm Eyes: Yes: EOM Intact HENT: Yes: Normocephalic Neck: Yes: Trachea Midline Cardiovascular: Yes: Regular Rate and Rhythm Respiratory: Yes: CTA Bilaterally Gastrointestinal: Yes: Abdomen, Obese, Distention, Hypoactive Bowel Sounds ...Rectal Exam: Yes: Deferred Renal/: Yes: WNL Musculoskeletal: Yes: Back Pain, Joint Stiffness, Muscle Weakness Extremities: Yes: WNL Labs: CBC, BMP 10/10/17 10:00 10/10/17 10:00 Problem List - Problems (1) Cellulitis of leg, except foot Code(s): L03.119 - CELLULITIS OF UNSPECIFIED PART OF LIMB (2) Hyperglycemia Code(s): R73.9 - HYPERGLYCEMIA, UNSPECIFIED (3) Leukocytosis Code(s): D72.829 - ELEVATED WHITE BLOOD CELL COUNT, UNSPECIFIED Qualifiers: Leukocytosis type: unspecified Qualified Code(s): D72.829 - Elevated white blood cell count, unspecified (4) Abdominal pain Code(s): R10.9 - UNSPECIFIED ABDOMINAL PAIN (5) Acute renal failure Code(s): N17.9 - ACUTE KIDNEY FAILURE, UNSPECIFIED Qualifiers: Acute renal failure type: unspecified Qualified Code(s): N17.9 - Acute kidney failure, unspecified (6) Bakers cyst Code(s): M71.20 - SYNOVIAL CYST OF POPLITEAL SPACE [PETER], UNSPECIFIED KNEE Assessment/Plan Current Active Problems Cellulitis of leg, except foot (Acute) Hyperglycemia (Acute) Leukocytosis (Acute) diabetes mellitus hyperglycmia iddm neuropathy hypothyroidism clinically and biochemically Abnormal Lab Results 10/10/17 10/10/17 06:41 10:00 BUN 23 H Random Glucose 184 H TSH 12.70 H Laboratory Results - last 24 hr 10/09/17 10/09/17 10/10/17 12:08 17:15 06:41 WBC RBC Hgb Hct MCV MCH MCHC RDW Plt Count MPV Absolute Neuts (auto) Neutrophils % Lymphocytes % Monocytes % Eosinophils % Basophils % Nucleated RBC % Sodium Potassium Chloride Carbon Dioxide Anion Gap BUN Creatinine Creat Clearance w eGFR POC Glucometer 287 293 Random Glucose Calcium TSH 12.70 H Free T4 1.02 10/10/17 10/10/17 10/10/17 06:46 08:16 10:00 WBC 9.8 RBC 4.47 Hgb 13.5 Hct 40.9 MCV 91.5 MCH 30.3 MCHC 33.1 RDW 14.2 Plt Count 237 D MPV 9.7 Absolute Neuts (auto) 5.7 Neutrophils % 58.5 D Lymphocytes % 28.4 D Monocytes % 9.2 Eosinophils % 3.3 D Basophils % 0.6 Nucleated RBC % 0 Sodium Potassium Chloride Carbon Dioxide Anion Gap BUN Creatinine Creat Clearance w eGFR POC Glucometer 79 94 Random Glucose Calcium TSH Free T4 10/10/17 10:00 WBC RBC Hgb Hct MCV MCH MCHC RDW Plt Count MPV Absolute Neuts (auto) Neutrophils % Lymphocytes % Monocytes % Eosinophils % Basophils % Nucleated RBC % Sodium 143 Potassium 4.3 Chloride 104 Carbon Dioxide 31 Anion Gap 8 BUN 23 H Creatinine 1.0 Creat Clearance w eGFR 52.57 POC Glucometer Random Glucose 184 H Calcium 9.0 TSH Free T4 plan: synthroid 125mcg daily continue bgm qid novolog insulin Current Medications Generic Name Dose Route Start Last Admin Trade Name Freq PRN Reason Stop Dose Admin Acetaminophen 650 mg 10/08/17 15:03 10/09/17 22:13 Tylenol - PO 650 mg Q4H PRN Administration FEVER Atorvastatin Calcium 40 mg 10/08/17 22:00 10/09/17 22:13 Lipitor - PO 40 mg HS LEXI Administration Bisacodyl 10 mg 10/10/17 10:59 Dulcolax Suppository - RC PRN PRN CONSTIPATION Furosemide 40 mg 10/10/17 10:00 10/10/17 10:34 Lasix - PO 40 mg DAILY [facility]I Administration Heparin Sodium (Porcine) 5,000 unit 10/08/17 22:00 10/10/17 10:17 Heparin - SQ 5,000 unit BID LEXI Administration Cefazolin Sodium 1 gm/ 50 mls @ 100 mls/hr 10/09/17 11:00 10/10/17 10:05 Dextrose IVPB 100 mls/hr Q8H-IV [facility] Administration Insulin Aspart 1 vial 10/08/17 22:00 10/10/17 06:46 Novolog Vial Sliding Scale - SQ Not Given ACHS [facility] Protocol Insulin Detemir 20 units 10/09/17 22:00 10/09/17 22:14 Levemir Vial SQ 20 unit HS [facility] Administration Lactic Acid 1 applic 10/10/17 10:58 Lac-Hydrin 12 TP BID PRN RASH Levothyroxine Sodium 125 mcg 10/11/17 07:00 Synthroid - PO DAILY@0700 L[facility]I Pantoprazole Sodium 40 mg 10/08/17 22:00 10/10/17 10:20 Protonix - PO 40 mg BID [facility] Administration Polyethylene Glycol 17 gm 10/10/17 22:00 Miralax (For Daily Use) - PO BID L[facility]I Potassium Chloride 20 meq 10/09/17 10:00 07/10/18 10:20 K-Dur - PO 20 meq DAILY [facility] Administration Ranitidine HCl 150 mg 10/08/17 22:00 10/10/17 10:20 Zantac - PO 150 mg BID L[facility] Administration Valsartan 160 mg 10/10/17 10:00 10/10/17 10:17 Diovan - PO 160 mg DAILY L[facility]I Administration
[2017-10-10] MEDS ORDERED: INSULIN (NOVOLOG) ASPART 100 UNITS/ML 10ML VIAL ONE ×2 (11:50→22:07)
[2017-10-10] MEDS: AMMONIUM LACTATE 12% LOTION 225 GM BOTTLE TP PRN (12:09)
[2017-10-10] MEDS: ACETAMINOPHEN 325 MG TABLET (FP) PO PRN (14:53)
[2017-10-10] MEDS: ATORVASTATIN CA 40 MG TABLET (FP) PO SCH (22:04)
[2017-10-10] MEDS: INSULIN (LEVEMIR) 100 UNITS/ML UNITS SQ SCH (22:04)
[2017-10-10] MEDS: POLYETHYLENE GLYCOL 3350 119 GM BTL PO SCH (22:05)
[2017-10-11] MEDS ORDERED: DEXTROSE 5%-WATER - 50 ML IVPB ONE ×3 (01:44→17:05)
[2017-10-11] MEDS ORDERED: ceFAZolin SODIUM 1 GM VIAL ONE ×3 (01:44→17:04)
[2017-10-11] MEDS: CEFAZOLIN 1 GM in DEXTROSE 5%-WATER - 50 ML IVPB SCH ×3 (01:46→17:45)
[2017-10-11] MEDS ORDERED: INSULIN (NOVOLOG) ASPART 100 UNITS/ML 10ML VIAL ONE (06:03)
[2017-10-11] MEDS: INSULIN SLIDING SCALE (NOVOLOG) 1 VIAL SQ SCH ×4 (06:05→21:42)
[2017-10-11] MEDS: LEVOTHYROXINE NA 125 MCG TABLET (FP) PO SCH (06:05)
[2017-10-11] MEDS: AMMONIUM LACTATE 12% LOTION 225 GM BOTTLE TP PRN (06:08)
[2017-10-11] MEDS: FUROSEMIDE 40 MG TABLET (FP) PO SCH (10:54)
[2017-10-11] MEDS: POTASSIUM CHLORIDE TABS 20 MEQ TABLET.ER (FP) PO SCH (10:54)
[2017-10-11] MEDS: VALSARTAN 160 MG TABLET (UD) PO SCH (10:54)
[2017-10-11] MEDS: PANTOPRAZOLE 40 MG TABLET (FP) PO SCH (10:54)
[2017-10-11] MEDS: POLYETHYLENE GLYCOL 3350 119 GM BTL PO SCH ×2 (10:54→21:38)
[2017-10-11] MEDS: RANITIDINE HCL 150 MG TABLET (FP) PO SCH (10:55)
--- NOTE | 2017-10-11 10:55 | PN ---
Progress Note, Physician - Current Medication List Current Medications: Active Medications Acetaminophen (Tylenol -) 650 mg PO Q4H PRN PRN Reason: FEVER Last Admin: 10/10/17 14:53 Dose: 650 mg Atorvastatin Calcium (Lipitor -) 40 mg PO HS [facility] Last Admin: 10/10/17 22:04 Dose: 40 mg Bisacodyl (Dulcolax Suppository -) 10 mg RC PRN PRN PRN Reason: CONSTIPATION Furosemide (Lasix -) 40 mg PO DAILY [facility] Last Admin: 10/10/17 10:34 Dose: 40 mg Heparin Sodium (Porcine) (Heparin -) 5,000 unit SQ BID [facility] Last Admin: 10/10/17 22:04 Dose: 5,000 unit Cefazolin Sodium 1 gm/ (Dextrose) 50 mls @ 100 mls/hr IVPB Q8H-IV [facility] Last Admin: 10/11/17 10:30 Dose: 100 mls/hr Insulin Aspart (Novolog Vial Sliding Scale -) 1 [facility]; Protocol Last Admin: 10/11/17 06:05 Dose: 2 units Insulin Detemir (Levemir Vial) 20 units SQ HS [facility] Last Admin: 10/10/17 22:04 Dose: 20 units Lactic Acid (Lac-Hydrin 12) 1 applic TP BID PRN PRN Reason: RASH Last Admin: 10/11/17 06:08 Dose: 1 applic Levothyroxine Sodium (Synthroid -) 125 mcg PO DAILY@0700 [facility] Last Admin: 10/11/17 06:05 Dose: 125 mcg Pantoprazole Sodium (Protonix -) 40 mg PO BID [facility] Last Admin: 10/10/17 22:04 Dose: 40 mg Polyethylene Glycol (Miralax (For Daily Use) -) 17 gm PO BID [facility] Last Admin: 10/10/17 22:05 Dose: Not Given Potassium Chloride (K-Dur -) 20 meq PO DAILY [facility] Last Admin: 10/10/17 10:20 Dose: 20 meq Ranitidine HCl (Zantac -) 150 mg PO BID [facility] Last Admin: 10/10/17 22:04 Dose: 150 mg Valsartan (Diovan -) 160 mg PO DAILY [facility] Last Admin: 10/10/17 10:17 Dose: 160 mg - Objective Vital Signs: Vital Signs Temperature 98.4 F 07/11/18 06:00 Pulse Rate 80 10/11/17 06:00 Respiratory Rate 20 10/11/17 06:00 Blood Pressure 111/57 10/11/17 06:00 O2 Sat by Pulse Oximetry (%) 95 10/10/17 21:00 Respiratory: Yes: Regular, CTA Bilaterally Gastrointestinal: Yes: Normal Bowel Sounds, Soft Extremities: Yes: Erythema (-resolved). No: Calf Tenderness Edema: LLE: Trace, RLE: Trace Integumentary: Yes: Venous Stasis Changes Labs: CBC, BMP 10/10/17 10:00 10/10/17 10:00 INR, PTT INR 1.04 (0.82-1.09) 10/08/17 10:20 Assessment/Plan - Problems (1) Cellulitis of leg, except foot Assessment/Plan: ID consult appreciated iv abx cefazolin- then switch to keflex will trend wbc afebrile PT saw patient Code(s): L03.119 - CELLULITIS OF UNSPECIFIED PART OF LIMB (2) Diabetes mellitus, insulin dependent (IDDM), uncontrolled Assessment/Plan: insulin levemir 20 units HS bgm hgba1c 8.2 endocrine consult Code(s): E10.65 - TYPE 1 DIABETES MELLITUS WITH HYPERGLYCEMIA Qualifiers: Diabetes mellitus complication status: with unspecified complications (3) Hypothyroid Assessment/Plan: check tsh and free t4 Code(s): E03.9 - HYPOTHYROIDISM, UNSPECIFIED Physical Therapy
[2017-10-11] MEDS: HEPARIN NA (PORCINE) 5,000 UNITS/ML 1ML VIAL SQ SCH ×2 (11:00→21:37)
[2017-10-11] MEDS: PANTOPRAZOLE SODIUM 40 MG VIAL IVPUSH SCH ×2 (11:44→21:39)
[2017-10-11 12:35] LABS: BASO % 0.6 % (0-2.0); EOS % 5.3 % (0-4.5); HEMATOCRIT 38.6 % (32.4-45.2); HEMOGLOBIN 12.8 GM/dL (10.7-15.3); LYMPH % 29.6 % (8-40); MCH 29.9 pg (25.7-33.7); MCHC 33.1 g/dl (32.0-36.0); MEAN CELL VOLUME 90.3 fl (80-96); MEAN PLT VOLUME 9.6 fl (7.5-11.1); MONO % 10.1 % (3.8-10.2); NEUT % 54.4 % (42.8-82.8); PLATELET COUNT 214 K/MM3 (134-434); RBC 4.27 M/mm3 (3.60-5.2); RDW 14.4 % (11.6-15.6); WHITE BLOOD COUNT 7.2 K/mm3 (4.0-10.0)
[2017-10-11 12:55] LABS: ALBUMIN 2.6 g/dl (3.4-5.0); AMYLASE 76 U/L (25-115); ANION GAP 7 (8-16); BLOOD UREA NITROGEN 20 mg/dL (7-18); CALCIUM 8.9 mg/dL (8.5-10.1); CHLORIDE 103 mmol/L (98-107); CO2 31 mmol/L (21-32); GLUCOSE,RANDOM 200 mg/dL (74-106); LIPASE 85 U/L (73-393); POTASSIUM 4.8 mmol/L (3.5-5.1); SGOT/AST 31 U/L (15-37); SGPT/ALT 21 U/L (12-78); SODIUM 141 mmol/L (136-145)
[2017-10-11 12:57] LABS: ALK PHOS 111 U/L (45-117); BILIRUBIN,TOTAL 0.6 mg/dL (0.2-1.0); TOT PROT 6.2 g/dl (6.4-8.2)
[2017-10-11] MEDS ORDERED: PT OWN MED DRAWER 7, Y5N ONE (17:36)
[2017-10-11] MEDS: ACETAMINOPHEN 325 MG TABLET (FP) PO PRN ×2 (18:16→23:26)
[2017-10-11] MEDS: INSULIN (LEVEMIR) 100 UNITS/ML UNITS SQ SCH (21:37)
[2017-10-11] MEDS: ATORVASTATIN CA 40 MG TABLET (FP) PO SCH (21:38)
[2017-10-12] MEDS ORDERED: ceFAZolin SODIUM 1 GM VIAL ONE ×3 (01:19→17:28)
[2017-10-12] MEDS ORDERED: DEXTROSE 5%-WATER - 50 ML IVPB ONE ×3 (01:19→17:28)
[2017-10-12] MEDS: CEFAZOLIN 1 GM in DEXTROSE 5%-WATER - 50 ML IVPB SCH ×3 (02:34→17:31)
[2017-10-12] MEDS: ACETAMINOPHEN 325 MG TABLET (FP) PO PRN ×3 (02:35→22:22)
[2017-10-12] MEDS: LEVOTHYROXINE NA 125 MCG TABLET (FP) PO SCH (06:13)
[2017-10-12] MEDS: INSULIN SLIDING SCALE (NOVOLOG) 1 VIAL SQ SCH ×4 (06:13→21:38)
[2017-10-12] MEDS: ONDANSETRON 4 MG/2 ML VIAL IVPUSH PRN ×2 (07:45→13:26)
[2017-10-12 09:24] LABS: BASO % 0.6 % (0-2.0); EOS % 7.5 % (0-4.5); HEMATOCRIT 39.4 % (32.4-45.2); HEMOGLOBIN 13.1 GM/dL (10.7-15.3); LYMPH % 33.8 % (8-40); MCH 30.1 pg (25.7-33.7); MCHC 33.3 g/dl (32.0-36.0); MEAN CELL VOLUME 90.4 fl (80-96); MEAN PLT VOLUME 9.3 fl (7.5-11.1); MONO % 9.5 % (3.8-10.2); NEUT % 48.6 % (42.8-82.8); PLATELET COUNT 208 K/MM3 (134-434); RBC 4.36 M/mm3 (3.60-5.2); WHITE BLOOD COUNT 7.9 K/mm3 (4.0-10.0)
[2017-10-12 09:56] LABS: ALBUMIN 2.7 g/dl (3.4-5.0); ANION GAP 8 (8-16); BILIRUBIN,TOTAL 0.8 mg/dL (0.2-1.0); BLOOD UREA NITROGEN 13 mg/dL (7-18); CALCIUM 8.5 mg/dL (8.5-10.1); CHLORIDE 107 mmol/L (98-107); CO2 30 mmol/L (21-32); CREATININE 0.8 mg/dL (0.55-1.02); GLUCOSE,RANDOM 132 mg/dL (74-106); POTASSIUM 4.2 mmol/L (3.5-5.1); SGOT/AST 51 U/L (15-37); SGPT/ALT 28 U/L (12-78); SODIUM 145 mmol/L (136-145); TOT PROT 6.1 g/dl (6.4-8.2)
[2017-10-12 09:57] LABS: ALK PHOS 113 U/L (45-117)
[2017-10-12] MEDS: POTASSIUM CHLORIDE TABS 20 MEQ TABLET.ER (FP) PO SCH (11:06)
[2017-10-12] MEDS: VALSARTAN 160 MG TABLET (UD) PO SCH (11:06)
[2017-10-12] MEDS: FUROSEMIDE 40 MG TABLET (FP) PO SCH (11:07)
[2017-10-12] MEDS: POLYETHYLENE GLYCOL 3350 119 GM BTL PO SCH ×2 (11:07→21:57)
[2017-10-12] MEDS: PANTOPRAZOLE SODIUM 40 MG VIAL IVPUSH SCH ×2 (11:09→21:41)
[2017-10-12] MEDS: HEPARIN NA (PORCINE) 5,000 UNITS/ML 1ML VIAL SQ SCH ×2 (11:10→21:36)
[2017-10-12] MEDS ORDERED: INSULIN (NOVOLOG) ASPART 100 UNITS/ML 10ML VIAL ONE ×2 (11:41→20:52)
--- NOTE | 2017-10-12 11:52 | DS ---
Physical Examination Vital Signs: Vital Signs Temperature 97.1 F L 10/12/17 00:00 Pulse Rate 84 10/12/17 00:00 Respiratory Rate 18 10/12/17 00:00 Blood Pressure 160/75 10/12/17 00:00 O2 Sat by Pulse Oximetry (%) 95 10/10/17 21:00 Constitutional: Yes: Calm, Obese Cardiovascular: Yes: Regular Rate and Rhythm, S1, S2 Respiratory: Yes: CTA Bilaterally Gastrointestinal: Yes: Normal Bowel Sounds, Soft, Abdomen, Obese Extremities: Yes: Other (chronic skin changes dry scaly changes venous stasis changes) Labs: CBC, BMP 10/12/17 08:33 10/12/17 08:33 Discharge Summary Reason For Visit: DM2 W/HYPERGLYCEMIA, CELLULITIS OF LEG, EXCEPT ARETHA Current Active Problems Cellulitis of leg, except foot (Acute) Hyperglycemia (Acute) Leukocytosis (Acute) Hospital Course: - Primary Care Physician PCP: Tyrell Back - Admission History of Present Illness: The patient is an 87 year old female with PMHx of chronic intermittent b/l LE cellulitis with edema, IDDM, HTN, HLD, CHF, and COPD who presents with 1 week of worsening b/l LE redness, pain, and itchiness for the past day. She notes 10/ 10 pain to both lower legs and feet with L>R. She additionally notes subjective fever and nausea. She denies any vomiting, diarrhea, constipation, abdominal pain, chest pain, SOB, headache. 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 2011 dobut MIBI: no STs ; moderate reversible defect anterior and lateral faith confounded by large breast shadow; nl EF -> pt didn't follow as outpt as planned (was on DATP for a little while). Echo 09/13: nl LVEF, nl RV, nl valve fxn), HTN, Hyperlipdemia Pulmonary: Yes: COPD Gastrointestinal: Yes: Constipation Heme/Onc: Yes: Cancer (thyroid) Endocrine: Yes: Diabetes Mellitus (insulin-dependent for years -> uncontrolled) , Hypothyroidism Dermatology: Yes: Cellulitis (in past, with chronic and intermittent edema) - Smoking History Smoking history: Never smoked Have you smoked in the past 12 months: No Aproximately how many cigarettes per day: 0 If you are a former smoker, when did you quit?: 1984 - Alcohol/Substance Use Hx Alcohol Use: No History of Substance Use: reports: None in hospital: she got cefazolin for LLE cellulitis now change keflex 500mg tid hypothyroid tsh noted elevated synthroid dose now 125mcg vomitting: ct scan done no acute pathology no bowel obstruction or ileus noted DM : insulin dose now20 units HS Condition: Guarded - Instructions Diet, Activity, Other Instructions: keflex 500mg po tid for 5 days Referrals: Tyrell Back MD [Staff Physician] - 2 Weeks Disposition: VNS/HOME HEALTH CARE - Home Medications Comprehensive Discharge Medication List: Ambulatory Orders Acetaminophen [Tylenol .Regular Strength -] 650 mg PO Q4H PRN #0 tablet Insulin Sliding Scale [Novolog Vial Sliding Scale -] 1 vial SQ ACHS units 03/16 Atorvastatin Ca [Lipitor] 40 mg PO HS 06/08/17 Ranitidine [Zantac -] 150 mg PO BID 06/08/17 Pantoprazole Sodium [Protonix -] 40 mg PO BID #60 tablet.ec 06/14/17 Potassium Chloride 20 meq PO DAILY #30 tablet.er 06/14/17 Furosemide [Lasix] 40 mg PO DAILY 10/08/17 Insulin Degludec [Tresiba Flextouch U-100] 40 unit SQ DAILY 10/08/17 Tresiba Flextouch U-100 40 units SQ ACBK 10/08/17 Valsartan [Diovan] 160 mg PO DAILY 10/08/17
--- NOTE | 2017-10-12 12:03 | PN ---
Progress Note (short form) - Note Progress Note: patient seen and examined per patient when she wipes after using toilet there is blood on tissue and will be seen by GI today as well Ct scan report noted no obstruction noted patient is on PPI bid and h/h stable Problem List - Problems (1) Cellulitis of leg, except foot Code(s): L03.119 - CELLULITIS OF UNSPECIFIED PART OF LIMB (2) Diabetes mellitus, insulin dependent (IDDM), uncontrolled Code(s): E10.65 - TYPE 1 DIABETES MELLITUS WITH HYPERGLYCEMIA Qualifiers: Diabetes mellitus complication status: with unspecified complications (3) Hypothyroid Code(s): E03.9 - HYPOTHYROIDISM, UNSPECIFIED
--- NOTE | 2017-10-12 18:10 | CON.GI ---
Consult Consult Specialty:: GI Referred by:: Dr Barnett - History of Present Illness History of Present Illness: 87 y/o F was asked to be seen because of 1 episode of rectal bleeding. S/p colonoscopy in 2011, she was noted to have diffuse diverticulosis. She has rectal pain and claims to have prolapsed hemorrhoids for many years, and from time to time bleeds. 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 2011 dobut MIBI: no STs ; moderate reversible defect anterior and lateral faith confounded by large breast shadow; nl EF -> pt didn't follow as outpt as planned (was on DATP for a little while). Echo 09/13: nl LVEF, nl RV, nl valve fxn), HTN, Hyperlipdemia Pulmonary: Yes: COPD Gastrointestinal: Yes: Constipation Endocrine: Yes: Diabetes Mellitus (insulin-dependent for years -> uncontrolled) , Hypothyroidism Dermatology: Yes: Cellulitis (in past, with chronic and intermittent edema) - Alcohol/Substance Use Hx Alcohol Use: No History of Substance Use: reports: None - Smoking History Smoking history: Never smoked Have you smoked in the past 12 months: No Aproximately how many cigarettes per day: 0 If you are a former smoker, when did you quit?: 1984 - Social History Usual Living Arrangement: With Spouse (who is on HD) History of Recent Travel: No Home Medications - Allergies Allergies/Adverse Reactions: Allergies Allergy/AdvReac Type Severity Reaction Status Date / Time vancomycin AdvReac Itching Verified 10/12/17 08:38 - Home Medications Home Medications: Ambulatory Orders Insulin Sliding Scale [Novolog Vial Sliding Scale -] 1 vial SQ ACHS units 03/16 Atorvastatin Ca [Lipitor] 40 mg PO HS 06/08/17 Ranitidine [Zantac -] 150 mg PO BID 06/08/17 Pantoprazole Sodium [Protonix -] 40 mg PO BID #60 tablet.ec 06/14/17 Potassium Chloride 20 meq PO DAILY #30 tablet.er 03/14/18 Furosemide [Lasix] 40 mg PO DAILY 10/08/17 Valsartan [Diovan] 160 mg PO DAILY 10/08/17 Acetaminophen [Tylenol .Regular Strength -] 650 mg PO Q4H PRN #20 tablet MDD 4 10/12/17 Cephalexin [Keflex] 500 mg PO TID #15 capsule MDD 3 10/12/17 Insulin Degludec [Tresiba Flextouch U-100] 20 unit SQ HS #1 insuln.pen 10/12/17 Levothyroxine [Synthroid -] 125 mcg PO DAILY@0700 #30 tablet MDD 1 10/12/17 Family Disease History - Family Disease History Family Disease History: Diabetes: Daughter Physical Exam-GI Vital Signs: Vital Signs Temperature 98.8 F 10/12/17 17:09 Pulse Rate 86 10/12/17 17:09 Respiratory Rate 20 10/12/17 17:09 Blood Pressure 139/70 10/12/17 17:09 O2 Sat by Pulse Oximetry (%) 98 10/12/17 09:00 Constitutional: Yes: Obese Eyes: Yes: Conjunctiva Clear HENT: Yes: Atraumatic Neck: Yes: Supple Cardiovascular: Yes: Regular Rate and Rhythm Respiratory: Yes: CTA Bilaterally ...Palpate: Yes: Soft. No: Firm/Rigid, Guarding, Hepatomegaly, Mass, Pulsatile Mass, Splenomegaly ...Rectal Exam: Yes: Other (prolapsed internal and external hemorrhoids,) Labs: CBC, BMP 10/12/17 08:33 10/12/17 08:33 INR, PTT INR 1.04 (0.82-1.09) 10/08/17 10:20 Problem List - Problems (1) Prolapsed external hemorrhoids Assessment/Plan: anusol hc cream, patient high risk for GI procedures. The daughter want supportive care at this time. Code(s): K64.4 - RESIDUAL HEMORRHOIDAL SKIN TAGS
[2017-10-12] MEDS: ATORVASTATIN CA 40 MG TABLET (FP) PO SCH (21:36)
[2017-10-12] MEDS: INSULIN (LEVEMIR) 100 UNITS/ML UNITS SQ SCH (21:38)
[2017-10-12] MEDS ORDERED: HYDROCORTISONE 2.5% TOPICAL CREAM 30 GM TUBE PR SCH (22:00)
[2017-10-13] MEDS ORDERED: ceFAZolin SODIUM 1 GM VIAL ONE ×2 (01:05→09:28)
[2017-10-13] MEDS ORDERED: DEXTROSE 5%-WATER - 50 ML IVPB ONE ×2 (01:06→09:28)
[2017-10-13] MEDS: CEFAZOLIN 1 GM in DEXTROSE 5%-WATER - 50 ML IVPB SCH ×2 (01:32→09:33)
[2017-10-13] MEDS: LEVOTHYROXINE NA 125 MCG TABLET (FP) PO SCH (06:10)
[2017-10-13] MEDS: INSULIN SLIDING SCALE (NOVOLOG) 1 VIAL SQ SCH ×3 (06:10→17:53)
[2017-10-13] MEDS: AMMONIUM LACTATE 12% LOTION 225 GM BOTTLE TP PRN (07:40)
[2017-10-13] MEDS ORDERED: PT OWN MED DRAWER 7, Y5N ONE ×2 (09:28→17:10)
[2017-10-13] MEDS: VALSARTAN 160 MG TABLET (UD) PO SCH (09:32)
[2017-10-13] MEDS: POTASSIUM CHLORIDE TABS 20 MEQ TABLET.ER (FP) PO SCH (09:32)
[2017-10-13] MEDS: FUROSEMIDE 40 MG TABLET (FP) PO SCH (09:32)
[2017-10-13] MEDS: POLYETHYLENE GLYCOL 3350 119 GM BTL PO SCH (09:33)
[2017-10-13] MEDS: PANTOPRAZOLE SODIUM 40 MG VIAL IVPUSH SCH (09:34)
[2017-10-13] MEDS: HEPARIN NA (PORCINE) 5,000 UNITS/ML 1ML VIAL SQ SCH (09:36)
[2017-10-13] MEDS: ONDANSETRON 4 MG/2 ML VIAL IVPUSH PRN (10:55)
--- NOTE | 2017-10-13 11:15 | PN ---
Progress Note, Physician Chief Complaint: LLE cellulitis History of Present Illness: NAD Bleeding hemorrhoids seen by GI on Anusol H/H stable - Current Medication List Current Medications: Active Medications Acetaminophen (Tylenol -) 650 mg PO Q4H PRN PRN Reason: FEVER Last Admin: 10/12/17 22:22 Dose: 650 mg Atorvastatin Calcium (Lipitor -) 40 mg PO HS [facility] Last Admin: 10/12/17 21:36 Dose: 40 mg Bisacodyl (Dulcolax Suppository -) 10 mg RC PRN PRN PRN Reason: CONSTIPATION Furosemide (Lasix -) 40 mg PO DAILY [facility] Last Admin: 10/13/17 09:32 Dose: 40 mg Heparin Sodium (Porcine) (Heparin -) 5,000 unit SQ BID [facility] Last Admin: 10/13/17 09:36 Dose: 5,000 unit Hydrocortisone (Anusol 2.5% Hc Cream -) 1 applic GA HS [facility] Last Admin: 10/12/17 22:38 Dose: 1 applic Cefazolin Sodium 1 gm/ Sodium (Chloride) 50 mls @ 100 mls/hr IVPB Q8H-IV [facility] Insulin Aspart (Novolog Vial Sliding Scale -) 1 vial SQ ACHS [facility]; Protocol Last Admin: 10/13/17 06:10 Dose: 4 units Insulin Detemir (Levemir Vial) 20 units SQ [facility] Last Admin: 10/12/17 21:38 Dose: 20 units Lactic Acid (Lac-Hydrin 12) 1 applic TP BID PRN PRN Reason: RASH Last Admin: 10/13/17 07:40 Dose: 1 applic Levothyroxine Sodium (Synthroid -) 125 mcg PO DAILY@0700 [facility] Last Admin: 10/13/17 06:10 Dose: 125 mcg Ondansetron HCl (Zofran Injection) 4 mg IVPUSH Q6H PRN PRN Reason: NAUSEA Last Admin: 10/13/17 10:55 Dose: 4 mg Pantoprazole Sodium (Protonix Iv) 40 mg IVPUSH BID [facility] Last Admin: 10/13/17 09:34 Dose: 40 mg Polyethylene Glycol (Miralax (For Daily Use) -) 17 gm PO BID [facility] Last Admin: 10/13/17 09:33 Dose: 17 gm Potassium Chloride (K-Dur -) 20 meq PO DAILY [facility] Last Admin: 10/13/17 09:32 Dose: 20 meq Valsartan (Diovan -) 160 mg PO DAILY [facility] Last Admin: 10/13/17 09:32 Dose: 160 mg - Objective Vital Signs: Vital Signs Temperature 97.9 F 10/13/17 06:00 Pulse Rate 84 10/13/17 06:00 Respiratory Rate 20 10/13/17 06:00 Blood Pressure 147/83 10/13/17 06:00 O2 Sat by Pulse Oximetry (%) 98 10/12/17 21:00 Constitutional: Yes: Well Nourished, No Distress, Calm Cardiovascular: Yes: Regular Rate and Rhythm Gastrointestinal: Yes: Normal Bowel Sounds, Soft Musculoskeletal: Yes: Muscle Weakness Extremities: Yes: WNL Edema: Yes (VIC non pitting) Peripheral Pulses WNL: Yes Neurological: Yes: Alert, Oriented Psychiatric: Yes: Alert, Oriented Labs: CBC, BMP 10/12/17 08:33 10/12/17 08:33 INR, PTT INR 1.04 (0.82-1.09) 10/08/17 10:20 Problem List - Problems (1) Bleeding external hemorrhoids Assessment/Plan: -Seen by GI -H/H stable -Anusol GA -Avoid constipation Code(s): K64.4 - RESIDUAL HEMORRHOIDAL SKIN TAGS (2) Cellulitis of leg, except foot Assessment/Plan: -Seen by ID -IV abx_> d/c on Keflex for 7 days -f/u outpatient -afebrile -no leukocytosis Code(s): L03.119 - CELLULITIS OF UNSPECIFIED PART OF LIMB (3) Constipation Assessment/Plan: -on Dulcolax -high fiber diet Code(s): K59.00 - CONSTIPATION, UNSPECIFIED Qualifiers: Constipation type: unspecified constipation type Qualified Code(s): K59.00 - Constipation, unspecified (4) Diabetes mellitus with peripheral vascular disease Assessment/Plan: -Insulin Levemir 20 U QAM -Novolog sliding scale AC Code(s): E11.51 - TYPE 2 DIABETES W DIABETIC PERIPHERAL ANGIOPATH W/O GANGRENE Assessment/Plan see problem list
[2017-10-13] MEDS ORDERED: CEFAZOLIN 1 GM in SODIUM CHLORIDE 50 ML IVPB SCH ×2 (12:30→12:32)
[2017-10-13] MEDS ORDERED: INSULIN (NOVOLOG) ASPART 100 UNITS/ML 10ML VIAL ONE (12:51)
[2017-10-13 17:01] VITALS: BP 131/70; PULSE 88; TEMP 98
== END 2017-10-13 18:21 | disposition home health service (06) | DRG 300 ==
LOC: JER 06:21 → JERBED 11:59 → J8W 17:30
PROVIDERS: ADMIT Family Medicine; ATTEND Family Medicine
DX: E11.51 Type 2 diabetes mellitus with diabetic peripheral angiopathy without gangrene (principal); L03.116 Cellulitis of left lower limb; L03.115 Cellulitis of right lower limb; J45.909 Unspecified asthma, uncomplicated; I34.1 Nonrheumatic mitral (valve) prolapse; K76.0 Fatty (change of) liver, not elsewhere classified; E03.9 Hypothyroidism, unspecified; E78.00 Pure hypercholesterolemia, unspecified; J44.9 Chronic obstructive pulmonary disease, unspecified; E66.9 Obesity, unspecified; Z68.36 Body mass index [BMI] 36.0-36.9, adult; D72.829 Elevated white blood cell count, unspecified; I11.0 Hypertensive heart disease with heart failure; I25.10 Atherosclerotic heart disease of native coronary artery without angina pectoris; E11.65 Type 2 diabetes mellitus with hyperglycemia; F03.90 Unspecified dementia, unspecified severity, without behavioral disturbance, psychotic disturbance, mood disturbance, and anxiety; K59.09 Other constipation; K64.4 Residual hemorrhoidal skin tags; E11.40 Type 2 diabetes mellitus with diabetic neuropathy, unspecified; Z79.4 Long term (current) use of insulin; Z85.828 Personal history of other malignant neoplasm of skin; Z85.850 Personal history of malignant neoplasm of thyroid
CPT/HCPCS: 36415; 71045-TC-FY; 74018-TC-FY; 74176-TC; 80048; 80053; 81003; 82150; 82550; 82803; 82947; 82962; 83036; 83605; 83690; 83735; 83880; 84100; 84439; 84443; 84484; 85025; 85610; 85730; 87040; 87086; 93005; 93010; 97116-GP; 97161-GP; 99285-25; J0131; J1100; J1644; J7030

== ENCOUNTER 2018-01-27 19:48 | Inpatient (IN) | payer OTHER ==
--- NOTE | 2018-01-27 19:56 | PDOC ---
Attending Attestation - HPI HPI: 01/27/18 23:13 The patient is a 87 year old female with past medical history significant for Dementia, CAD, COPD, DM, and hypothyroidism presents to the emergency department via EMS with coffee ground emesis. The patient reports shes been having 3 days of NBNB vomiting, that worsened today, with more than 10 episodes. The patient reports associated symptoms of weakness and abdominal pain. Denies the use of blood thinners. PCP: Tyrell Muñiz MD - Physicial Exam PE: 01/27/18 23:41 GENERAL: Awake, alert, and fully oriented, in no acute distress HEAD: No signs of trauma EYES: Pupils reactive to lights. ENT: dry mouth, chronic ear pain. NECK: Normal ROM, supple, no lymphadenopathy, JVD, or masses LUNGS: Breath sounds equal, clear to auscultation bilaterally. No wheezes, and no crackles HEART: Regular rate and rhythm, normal S1 and S2, no murmurs, rubs or gallops ABDOMEN: Soft, nontender, hyperactive bowel sounds. No guarding, no rebound. No masses, no flank pain. EXTREMITIES: no pitting edema. Normal range of motion, no edema. No cords, erythema, or tenderness NEUROLOGICAL: Cranial nerves II through XII grossly intact. Normal speech. SKIN: Warm, Dry, normal turgor, no rashes or lesions noted. - Medical Decision Making 01/27/18 23:13 Documentation prepared by Jody Muniz, acting as medical cash poster for Hazel Dutta MD. <Jody Muniz - Last Filed: 01/27/18 23:41> - Resident Resident Name: Vitor Peñaloza - ED Attending Attestation I have performed the following: I have examined & evaluated the patient, The case was reviewed & discussed with the resident, I agree w/resident's findings & plan - Critical Care Time Total Critical Care Time: 60 Critical Care Statement: The care of this patient involved high complexity decision making to prevent further life threatening deterioration of the patient 's condition and/or to evaluate & treat vital organ system(s) failure or risk of failure. - Medical Decision Making 01/27/18 21:20 Pt is vomiting coffee grounds. She has a BP of 65 systolic. Flat and dry veins ; multiple attempts at peripheral IV placement; deep IV placement; and central line IV placement. I managed to draw off CBC and chem and bloot T+S. Pt was extremely difficult, fighting us and not staying in position, despite our requests and her family's requests. We finally placed an IO line in her left prox tibia. Pt will be hydrated with 1L NSS, as her HB/HCT is 15... 01/27/18 23:35 Pt appears better at this time. Her labs are stable. Glc is 195. She will continue to be hydrated. 01/27/18 23:35 01/28/18 00:14 Patient Name: TRACY SENA THIS IS A PRELIMINARY REPORT FROM [facility] DATE OF SERVICE: 2018-01-27 23:43:50 IMAGES: [id number] EXAM: ABDOMEN \T\ PELVIS CT W/O CONTR HISTORY: Abdominal pain COMPARISON: None. FINDINGS: 1.3 cm incompletely seen right lower lobe mass may represent neoplasm. As mild dependent atelectasis possible minimal subpleural interstitial pulmonary fibrosis. The visualized cardiac chambers are normal size and configuration. Status post cholecystectomy without biliary duct dilation. Calcified liver granuloma is noted. Normal unenhanced pancreas, spleen, adrenal glands and kidneys. The a moderate-sized hiatal hernia is noted. abdominal small and large bowel are normal. There is no aortic aneurysm. There is no significant retroperitoneal lymphadenopathy. The pelvic small and large bowel are notable for sigmoid diverticulosis without diverticulitis. There is no evidence of appendicitis, although the appendix is not clearly visualized . The uterus and adnexal structures are notable for a 3.1 cm calcified fibroid. Urinary bladder is unremarkable. There is no pelvic free fluid. No discrete pelvic lymphadenopathy is identified. IMPRESSION: Incompletely seen right lower lobe mass may represent neoplasm. Questionable mild subpleural fibrosis. Recommend dedicated CT of the chest. Moderate-sized hiatal hernia. 3.1 cm fibroid. Sigmoid diverticulosis without diverticulitis. THIS DOCUMENT HAS BEEN ELECTRONICALLY SIGNED 01/28/18 03:32 Pt will be admitted for hypotension and emesis and dehydration. <Hazel Dutta - Last Filed: 01/28/18 03:32>
[2018-01-27 20:37] LABS: BASO % 1.3 % (0-2.0); EOS % 1.2 % (0-4.5); HEMATOCRIT 47.3 % (32.4-45.2); HEMOGLOBIN 15.2 GM/dL (10.7-15.3); LYMPH % 35.1 % (8-40); MCH 29.7 pg (25.7-33.7); MCHC 32.1 g/dl (32.0-36.0); MEAN CELL VOLUME 92.3 fl (80-96); MEAN PLT VOLUME 9.7 fl (7.5-11.1); MONO % 6.9 % (3.8-10.2); NEUT % 55.5 % (42.8-82.8); PLATELET COUNT 190 K/MM3 (134-434); RBC 5.12 M/mm3 (3.60-5.2); RDW 13.2 % (11.6-15.6); WHITE BLOOD COUNT 14.5 K/mm3 (4.0-10.0)
[2018-01-27 20:59] LABS: ALBUMIN 3.2 g/dl (3.4-5.0); ALK PHOS 96 U/L (45-117); ANION GAP 13 MMOL/L (8-16); BILIRUBIN,TOTAL 1.1 mg/dL (0.2-1); BLOOD UREA NITROGEN 28 mg/dL (7-18); CALCIUM 8.8 mg/dL (8.5-10.1); CHLORIDE 100 mmol/L (98-107); CO2 30 mmol/L (21-32); CREATININE 1.4 mg/dL (0.55-1.3); GLUCOSE,RANDOM 195 mg/dL (74-106); POTASSIUM 3.6 mmol/L (3.5-5.1); SGOT/AST 32 U/L (15-37); SGPT/ALT 34 U/L (13-61); SODIUM 143 mmol/L (136-145); TOT PROT 6.9 g/dl (6.4-8.2)
[2018-01-27] MEDS ORDERED: ONDANSETRON 4 MG/2 ML VIAL ONE (21:03)
[2018-01-27] MEDS ORDERED: PANTOPRAZOLE SODIUM 40 MG VIAL IVPUSH ONE (21:06)
[2018-01-27] MEDS ORDERED: METOCLOPRAMIDE HCL INJECTION 10 MG/2 ML VIAL IVPUSH ONE (21:25)
[2018-01-27] MEDS ORDERED: PANTOPRAZOLE SODIUM 40 MG/100 ML BAG IVPB ONE (21:25)
[2018-01-27] MEDS ORDERED: ACETAMINOPHEN 1000 MG/100 ML VIAL (NON FORMULARY) IVPB ONE (21:32)
[2018-01-27] MEDS ORDERED: METOCLOPRAMIDE HCL INJECTION 10 MG/2 ML VIAL ONE (21:38)
[2018-01-27] MEDS ORDERED: ACETAMINOPHEN INJECTION 100 ML IVPB ONE (21:38)
--- NOTE | 2018-01-27 21:53 | PDOC ---
History of Present Illness <Hazel Dutta - Last Filed: 01/28/18 00:14> - General History Source: Patient, Family (daughter translates) Exam Limitations: No Limitations - History of Present Illness Initial Comments: 01/27/18 21:48 87 yo female, daughter as flosser, patient lives at home. 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 Pt reportedly has been feeling weak , dizzy along with abdominal pain for the past 1 week. NB/NB Vomiting began 3 days ago and today has had greater than 10 episodes of coffee ground emesis. Pt has chronic complaints of abdominal pain and on ROS admits to pain all over her body including chest, back, bilateral lower legs but denies F/C or changes in bowel or bladder habits. <Vitor Peñaloza - Last Filed: 01/28/18 01:07> - General Chief Complaint: Nausea/Vomiting Stated Complaint: VOMITING Time Seen by Provider: 01/27/18 19:54 Past History <Hazel Dutta - Last Filed: 01/28/18 00:14> - Past Medical History Anemia: No Asthma: Yes Cancer: Yes (SKIN) Cardiac Disorders: Yes (MITRAL VALVE PROLAPSE) COPD: Yes CHF: Yes Diabetes: Yes GI Disorders: Yes HTN: Yes Hypercholesterolemia: Yes Liver Disease: Yes (FATTY LIVER) Thyroid Disease: Yes - Surgical History Abdominal Surgery: Yes Cholecystectomy: Yes - Suicide/Smoking/Psychosocial Hx Smoking Status: Yes Smoking History: Never smoked Have you smoked in the past 12 months: No Number of Cigarettes Smoked Daily: 0 If you are a former smoker, when did you quit?: 1985 Cigars Per Day: 0 Information on smoking cessation initiated: No Hx Alcohol Use: No Drug/Substance Use Hx: No Substance Use Type: None Hx Substance Use Treatment: Yes <Vitor Peñaloza - Last Filed: 01/28/18 01:07> - Past Medical History Allergies/Adverse Reactions: Allergies Allergy/AdvReac Type Severity Reaction Status Date / Time vancomycin AdvReac Itching Verified 01/27/18 20:01 Home Medications: Ambulatory Orders Insulin Sliding Scale [Novolog Vial Sliding Scale -] 1 vial SQ ACHS units 03/16 Atorvastatin Ca [Lipitor] 40 mg PO HS 06/08/17 Ranitidine [Zantac -] 150 mg PO BID 06/08/17 Pantoprazole Sodium [Protonix -] 40 mg PO BID #60 tablet.ec 06/14/17 Potassium Chloride 20 meq PO DAILY #30 tablet.er 06/14/17 Furosemide [Lasix] 40 mg PO DAILY 10/08/17 Valsartan [Diovan] 160 mg PO DAILY 10/08/17 Acetaminophen [Tylenol .Regular Strength -] 650 mg PO Q4H PRN #20 tablet MDD 4 10/12/17 Cephalexin [Keflex] 500 mg PO TID #15 capsule MDD 3 10/12/17 Insulin Degludec [Tresiba Flextouch U-100] 20 unit SQ HS #1 insuln.pen 10/12/17 Levothyroxine [Synthroid -] 125 mcg PO DAILY@0700 #30 tablet MDD 1 10/12/17 Review of Systems - Review of Systems Constitutional: No: Chills, Fever Respiratory: Yes: Shortness of Breath Cardiac (ROS): Yes: Chest Pain, Edema, Lightheadedness ABD/GI: Yes: Nausea, Vomiting (today greater than 10 episodes coffee ground) : No: Burning, Dysuria, Flank Pain, Hematuria Musculoskeletal: Yes: Back Pain Neurological: Yes: Weakness (generalized) <Vitor Peñaloza - Last Filed: 01/28/18 01:07> *Physical Exam - Vital Signs Last Vital Signs Temp Pulse Resp BP Pulse Ox 96.6 F L 101 H 22 H 104/85 96 01/27/18 19:49 01/27/18 19:49 01/27/18 19:49 01/27/18 19:49 01/27/18 19:49 <Hazel Dutta - Last Filed: 01/28/18 00:14> - Vital Signs Last Vital Signs Temp Pulse Resp BP Pulse Ox 96.6 F L 101 H 22 H 104/85 96 01/27/18 19:49 01/27/18 19:49 01/27/18 19:49 01/27/18 19:49 01/27/18 19:49 - Physical Exam General Appearance: Yes: Nourished, Appropriately Dressed, Apparent Distress ( actively vomting coffee ground emesis on initail eval) HEENT: positive: EOMI, PREETI Respiratory/Chest: positive: Lungs Clear, Normal Breath Sounds. negative: Respiratory Distress, Accessory Muscle Use, Wheezing Cardiovascular: positive: Regular Rhythm, S1, S2, Edema, Tachycardia. negative : Regular Rate, JVD, Murmur Vascular Pulses: Dorsalis-Pedis (R): 3+, Doralis-Pedis (L): 3+ Gastrointestinal/Abdominal: positive: Normal Bowel Sounds, Flat, Soft, Tenderness (diffuse ). negative: Pulsatile Mass, Protuberent, Distended, Guarding, Rebound <Vitor Peñaloza - Last Filed: 01/28/18 01:07> ED Treatment Course - LABORATORY CBC & Chemistry Diagram: 01/27/18 20:19 01/27/18 20:19 - ADDITIONAL ORDERS Additional order review: Laboratory Results 01/27/18 01/27/18 01/27/18 22:52 22:52 22:52 PT with INR 11.80 INR 1.00 PTT (Actin FS) 33.7 D-Dimer 1939 H VBG pH 7.44 H POC VBG pCO2 47.9 POC VBG pO2 33.6 D Mixed VBG HCO3 32.1 H Sodium Potassium Chloride Carbon Dioxide Anion Gap BUN Creatinine Creat Clearance w eGFR Random Glucose Calcium Total Bilirubin AST ALT Alkaline Phosphatase Troponin I Total Protein Albumin Blood Type Antibody Screen Crossmatch 01/27/18 01/27/18 01/27/18 20:19 20:19 20:19 PT with INR INR PTT (Actin FS) D-Dimer VBG pH POC VBG pCO2 POC VBG pO2 Mixed VBG HCO3 Sodium 143 Potassium 3.6 Chloride 100 Carbon Dioxide 30 Anion Gap 13 BUN 28 H Creatinine 1.4 H Creat Clearance w eGFR 35.65 Random Glucose 195 H Calcium 8.8 Total Bilirubin 1.1 H AST 32 ALT 34 Alkaline Phosphatase 96 Troponin I 0.02 Total Protein 6.9 Albumin 3.2 L Blood Type A POSITIVE Antibody Screen Negative Crossmatch See Detail 01/27/18 20:19 RBC 5.12 MCV 92.3 MCHC 32.1 RDW 13.2 MPV 9.7 Neutrophils % 55.5 Lymphocytes % 35.1 Monocytes % 6.9 Eosinophils % 1.2 D Basophils % 1.3 - Medications Given in the ED: ED Medications Discontinued Medications Generic Name Dose Route Start Last Admin Trade Name Freq PRN Reason Stop Dose Admin Acetaminophen 1,000 mg 01/27/18 21:32 01/27/18 22:19 Ofirmev Injection - IVPB 01/27/18 21:33 1,000 mg ONCE ONE Administration Metoclopramide HCl 10 mg 01/27/18 21:25 01/27/18 21:31 Reglan Injection - IVPUSH 01/27/18 21:26 10 mg ONCE ONE Administration Pantoprazole Sodium 40 mg 01/27/18 21:06 01/27/18 21:31 Protonix Iv IVPUSH 01/27/18 21:07 40 mg ONCE ONE Administration <Hazel Dutta - Last Filed: 01/28/18 00:14> - LABORATORY CBC & Chemistry Diagram: 01/27/18 20:19 01/27/18 20:19 - ADDITIONAL ORDERS Additional order review: Laboratory Results 01/27/18 01/27/18 01/27/18 20:19 20:19 20:19 Sodium 143 Potassium 3.6 Chloride 100 Carbon Dioxide 30 Anion Gap 13 BUN 28 H Creatinine 1.4 H Creat Clearance w eGFR 35.65 Random Glucose 195 H Calcium 8.8 Total Bilirubin 1.1 H AST 32 ALT 34 Alkaline Phosphatase 96 Troponin I 0.02 Total Protein 6.9 Albumin 3.2 L Blood Type A POSITIVE Antibody Screen Negative Crossmatch See Detail 01/27/18 20:19 RBC 5.12 MCV 92.3 MCHC 32.1 RDW 13.2 MPV 9.7 Neutrophils % 55.5 Lymphocytes % 35.1 Monocytes % 6.9 Eosinophils % 1.2 D Basophils % 1.3 - RADIOLOGY Radiology Studies Ordered: Category Date Time Status ABDOMEN & PELVIS CT W/O CONTR [CT] Stat CT Scan 01/27/18 21:43 Ordered CHEST X-RAY PORTABLE* [RAD] Stat Radiology 01/27/18 20:07 Ordered - Medications Given in the ED: ED Medications Discontinued Medications Generic Name Dose Route Start Last Admin Trade Name Freq PRN Reason Stop Dose Admin Metoclopramide HCl 10 mg 01/27/18 21:25 01/27/18 21:31 Reglan Injection - IVPUSH 01/27/18 21:26 10 mg ONCE ONE Administration Pantoprazole Sodium 40 mg 01/27/18 21:06 01/27/18 21:31 Protonix Iv IVPUSH 01/27/18 21:07 40 mg ONCE ONE Administration <Vitor Peñaloza - Last Filed: 01/28/18 01:07> Medical Decision Making - Medical Decision Making 01/28/18 00:38 87 yo female presents to the ED actively vomiting coffee ground emesis, hypotensive in the 80s and at times in the 60s, tachy above 110. Pt very difficulty to get IV and blood, attempted central line but pt unable to keep calm and stay still due to profuse vomiting, IO placed and 2 L NS give in pressure bag. Pts vitals improve to BP above 90 and HR below 100 Protonix 40mg given Pt complaining of abdominal pain Sepsis order set ordered WBC 14 DDX: SBO (pt states she has had bowel movements recently) gastroperesis, gastric ulcers Spoke with Dr. Kothari who would like pt started on half NS maintenance dose and agrees that she should be admitted to the ICU for close watch at least over night <Vitor Peñaloza - Last Filed: 01/28/18 01:07> *DC/Admit/Observation/Transfer - Discharge Dispostion Decision to Admit order: Yes <Hazel Dutta - Last Filed: 01/28/18 00:14> <Vitor Peñaloza - Last Filed: 01/28/18 01:07> Diagnosis at time of Disposition: Nausea & vomiting, Diabetes mellitus, insulin dependent (IDDM), uncontrolled, Dehydration, Chest mass - Discharge Dispostion Condition at time of disposition: Fair - Referrals Referrals: Tyrell Back MD [Primary Care Provider] - - Patient Instructions - Post Discharge Activity
[2018-01-27 23:13] LABS: VENOUS PC02 47.9 mmHg (38-52); VENOUS PH 7.44 (7.32-7.42); VENOUS PO2 33.6 mmHg (28-48)
[2018-01-27 23:25] LABS: PROTHROMBIN TIME (PATIENT) 11.8 SEC (9.7-13.0)
[2018-01-27 23:28] LABS: ACTIVATED PTT 33.7 SECONDS (25.2-36.5)
--- NOTE | 2018-01-28 00:37 | HP ---
Admitting History and Physical - Primary Care Physician PCP: Tyrell Back - Admission Chief Complaint: Coffee Ground Emesis History of Present Illness: This is a 87 y/o woman from home PMHx of: Dementia, CAD, COPD, IDDM, Gastroparesis, Hypothyroidism. Who presents to the ED via EMS with coffee ground emesis. Per ED records: Pt reportedly has been feeling weak, dizzy along with abdominal pain for the past 1 week. NB/NB Vomiting began 3 days ago and today has had greater than 10 episodes of coffee ground emesis. At bedside when I asked patient in [place], if she had pain she pointed to her epigastirum. Patient has Dementia and is unable to provide detailed HPI. History Source: Family Member Limitations to Obtaining History: Clinical Condition, Dementia - Past Medical History EXECUTIVE VP: Yes: Dementia, Vertigo Cardiovascular: Yes: CAD (BMS to pLAD, BILLIE to pRCA, then 2009 cath with BILLIE to OM1 (at that time the LAD and RCA stents were patent, residual 80-90% dist LAD small vessel and severe/diffuse dz small diag; nl EF). 2011 dobut MIBI: no STs ; moderate reversible defect anterior and lateral faith confounded by large breast shadow; nl EF -> pt didn't follow as outpt as planned (was on DATP for a little while). Echo 09/13: nl LVEF, nl RV, nl valve fxn), HTN, Hyperlipdemia Pulmonary: Yes: COPD Gastrointestinal: Yes: Constipation Heme/Onc: Yes: Cancer (thyroid) Endocrine: Yes: Diabetes Mellitus (insulin-dependent for years -> uncontrolled) , Hypothyroidism Dermatology: Yes: Cellulitis (in past, with chronic and intermittent edema) - Smoking History Smoking history: Never smoked Have you smoked in the past 12 months: No Aproximately how many cigarettes per day: 0 If you are a former smoker, when did you quit?: 1984 - Alcohol/Substance Use Hx Alcohol Use: No History of Substance Use: reports: None - Social History Usual Living Arrangement: Yes: With Child ADL: Family Assistance History of Recent Travel: No Home Medications - Allergies Allergies/Adverse Reactions: Allergies Allergy/AdvReac Type Severity Reaction Status Date / Time vancomycin AdvReac Itching Verified 01/27/18 20:01 - Home Medications Home Medications: Ambulatory Orders Insulin Sliding Scale [Novolog Vial Sliding Scale -] 1 vial SQ ACHS units 03/16 Atorvastatin Ca [Lipitor] 40 mg PO HS 06/08/17 Ranitidine [Zantac -] 150 mg PO BID 06/08/17 Pantoprazole Sodium [Protonix -] 40 mg PO BID #60 tablet.ec 06/14/17 Potassium Chloride 20 meq PO DAILY #30 tablet.er 06/14/17 Furosemide [Lasix] 40 mg PO DAILY 10/08/17 Valsartan [Diovan] 160 mg PO DAILY 10/08/17 Acetaminophen [Tylenol .Regular Strength -] 650 mg PO Q4H PRN #20 tablet MDD 4 10/12/17 Cephalexin [Keflex] 500 mg PO TID #15 capsule MDD 3 10/12/17 Insulin Degludec [Tresiba Flextouch U-100] 20 unit SQ HS #1 insuln.pen 10/12/17 Levothyroxine [Synthroid -] 125 mcg PO DAILY@0700 #30 tablet MDD 1 10/12/17 Family Disease History - Family Disease History Family Disease History: Diabetes: Daughter Review of Systems Unable to obtain ROS, reason: Dementia Physical Examination Vital Signs: Vital Signs Temperature 96.6 F L 01/27/18 19:49 Pulse Rate 101 H 01/27/18 19:49 Respiratory Rate 22 H 01/27/18 19:49 Blood Pressure 104/85 01/27/18 19:49 O2 Sat by Pulse Oximetry (%) 96 01/27/18 19:49 Constitutional: Yes: No Distress, Calm, Obese Eyes: Yes: WNL, Conjunctiva Clear HENT: Yes: WNL, Atraumatic, Normocephalic Neck: Yes: WNL, Supple, Trachea Midline Cardiovascular: Yes: Regular Rate and Rhythm, S1, S2 Respiratory: Yes: WNL, Regular, CTA Bilaterally, On Nasal O2 Gastrointestinal: Yes: Normal Bowel Sounds, Soft, Abdomen, Obese ...Rectal Exam: Yes: WNL, Guaiac Negative Renal/: Yes: Incontinence Breast(s): Yes: WNL Musculoskeletal: Yes: WNL Extremities: Yes: WNL Edema: No Peripheral Pulses WNL: Yes Neurological: Yes: Confusion ...Motor Strength: WNL Psychiatric: Yes: WNL, Alert Labs: CBC, BMP 01/27/18 20:19 01/27/18 20:19 Laboratory Results - last 24 hr 01/27/18 01/27/18 01/27/18 20:19 20:19 20:19 WBC 14.5 H RBC 5.12 Hgb 15.2 Hct 47.3 H D MCV 92.3 MCH 29.7 MCHC 32.1 RDW 13.2 Plt Count 190 MPV 9.7 Absolute Neuts (auto) 8.0 Neutrophils % 55.5 Lymphocytes % 35.1 Monocytes % 6.9 Eosinophils % 1.2 D Basophils % 1.3 Nucleated RBC % 0 PT with INR INR PTT (Actin FS) D-Dimer VBG pH POC VBG pCO2 POC VBG pO2 Mixed VBG HCO3 Sodium 143 Potassium 3.6 Chloride 100 Carbon Dioxide 30 Anion Gap 13 BUN 28 H Creatinine 1.4 H Creat Clearance w eGFR 35.65 Random Glucose 195 H Lactic Acid Calcium 8.8 Total Bilirubin 1.1 H AST 32 ALT 34 Alkaline Phosphatase 96 Troponin I 0.02 Total Protein 6.9 Albumin 3.2 L Stool Occult Blood Blood Type Antibody Screen Crossmatch 01/27/18 01/27/18 01/27/18 20:19 22:52 22:52 WBC RBC Hgb Hct MCV MCH MCHC RDW Plt Count MPV Absolute Neuts (auto) Neutrophils % Lymphocytes % Monocytes % Eosinophils % Basophils % Nucleated RBC % PT with INR 11.80 INR 1.00 PTT (Actin FS) 33.7 D-Dimer VBG pH 7.44 H POC VBG pCO2 47.9 POC VBG pO2 33.6 D Mixed VBG HCO3 32.1 H Sodium Potassium Chloride Carbon Dioxide Anion Gap BUN Creatinine Creat Clearance w eGFR Random Glucose Lactic Acid Calcium Total Bilirubin AST ALT Alkaline Phosphatase Troponin I Total Protein Albumin Stool Occult Blood Blood Type A POSITIVE Antibody Screen Negative Crossmatch See Detail 01/27/18 01/27/18 01/27/18 22:52 22:52 23:56 WBC RBC Hgb Hct MCV MCH MCHC RDW Plt Count MPV Absolute Neuts (auto) Neutrophils % Lymphocytes % Monocytes % Eosinophils % Basophils % Nucleated RBC % PT with INR INR PTT (Actin FS) D-Dimer 1939 H VBG pH POC VBG pCO2 POC VBG pO2 Mixed VBG HCO3 Sodium Potassium Chloride Carbon Dioxide Anion Gap BUN Creatinine Creat Clearance w eGFR Random Glucose Lactic Acid 2.4 H* Calcium Total Bilirubin AST ALT Alkaline Phosphatase Troponin I Total Protein Albumin Stool Occult Blood Negative Blood Type Antibody Screen Crossmatch Imaging - Results Chest X-ray: Image Reviewed EKG: Image Reviewed Problem List - Problems (1) GI (gastrointestinal bleed) Code(s): K92.2 - GASTROINTESTINAL HEMORRHAGE, UNSPECIFIED (2) Gastroparesis due to DM Code(s): E11.43 - TYPE 2 DIABETES W DIABETIC AUTONOMIC (POLY)NEUROPATHY; K31.84 - GASTROPARESIS (3) Nausea & vomiting Code(s): R11.2 - NAUSEA WITH VOMITING, UNSPECIFIED Qualifiers: Vomiting type: unspecified Vomiting Intractability: unspecified Qualified Code(s): R11.2 - Nausea with vomiting, unspecified (4) CAD (coronary artery disease) Code(s): I25.10 - ATHSCL HEART DISEASE OF [place] CORONARY ARTERY W/O ANG PCTRS (5) Hypothyroid Code(s): E03.9 - HYPOTHYROIDISM, UNSPECIFIED Assessment/Plan This is a 87 y/o woman with a PMHx of: Dementia, CAD, COPD, IDDM, Gastroparesis , Hypothyroid. Admitted to ICU for GI Bleed for further evaluation of their emergent condition. Problems: Acute GI Bleed Gastroparesis IDDM CAD COPD Hypothyroidism Dementia Plan: 1. Gastrointestinal: Acute GI Bleed Likely due to Gastroparesis vs Ulcer ICU admission BP on arrival 65 palp NS fluids given PRBCs, FFP-pending Protonix given Appreciate GI Consult Stool occult-pending Continue IVFs Maintain MAP > 65 Protonix NPO Monitor CBC closely 2. Endocrinology: Gastroparesis IDDM Hypothyroidism BGMs Will hold ISS until diet resumed IVF Monitor BMP Consider Endocrinology consult resume meds when tolerated 3. Cardiovascular: Cardiac Monitoring Troponin-pending Hold BP meds secondary to hypotension Hold Asa secondary to GI bleed 4. Pulmonary: COPD Continue duonebs O2 5. Neuro: Dementia Fall Precautions Hold meds for now, till vomiting subsides FEN D51/2NS@42ml/hr Replete lytes prn NPO DVT ppx TEDs SCDs Hold AC secondary to Acute GI Bleed Code Status: Full Code Dispo: Requires Inpatient Care Visit type - Emergency Visit Emergency Visit: Yes ED Registration Date: 01/27/18 Care time: The patient presented to the Emergency Department on the above date and was hospitalized for further evaluation of their emergent condition. - New Patient This patient is new to me today: Yes Date on this admission: 01/28/18 - Critical Care Critical Care patient: Yes Total Critical Care Time (in minutes): 35 Critical Care Statement: The care of this patient involved high complexity decision making to prevent further life threatening deterioration of the patient 's condition and/or to evaluate & treat vital organ system(s) failure or risk of failure.
[2018-01-28] MEDS ORDERED: ONDANSETRON 4 MG/2 ML VIAL IVPUSH ONE (00:53)
[2018-01-28] MEDS ORDERED: SODIUM CHLORIDE 1,000 ML IV STA ×2 (01:18→01:21)
[2018-01-28 01:40] LABS: URINE APPEARANCE CLEAR; URINE BILIRUBIN NEGATIVE (<2.0 mg/dL); URINE COLOR YELLOW; URINE GLUCOSE (UA) 2+ (NEGATIVE); URINE KETONE NEGATIVE (NEGATIVE); URINE LEUK ESTERASE NEGATIVE (NEGATIVE); URINE NITRITE NEGATIVE (NEGATIVE); URINE PROTEIN 1+ (NEGATIVE); URINE UROBILINOGEN NEGATIVE mg/dL (0.2-1.0)
[2018-01-28 01:47] LABS: EPI CELLS RARE /HPF (FEW); URINE BACTERIA RARE /hpf (NONE SEEN); URINE HYALINE CAST 3 /lpf; URINE MUCUS RARE
[2018-01-28] MEDS ORDERED: PANTOPRAZOLE SODIUM 80 MG in SODIUM CHLORIDE 100 ML IVPB SCH (02:00)
[2018-01-28] MEDS ORDERED: INSULIN SLIDING SCALE (NOVOLOG) 1 VIAL SQ SCH ×4 (02:00→16:30)
--- NOTE | 2018-01-28 02:44 | CONSULT ---
Consultation: CONSULT REQUEST: We have been asked to medically evaluate this patient for hypotensive GI bleed HISTORY OF PRESENT ILLNESS: 87 y/o woman from home PMHx of: Dementia, CAD, COPD, CHF, IDDM, Gastroparesis, Hypothyroidism, p/w coffee ground emesis x 10 episodes per family for 1 day. Patient has Dementia and is unable to provide HPI. Per family, Pt reportedly has been feeling weak, dizzy along with abdominal pain for the past 1 week. NB/ NB Vomiting began 3 days ago and today has had greater than 10 episodes of coffee ground emesis. Pt has chronic complaints of abdominal pain and on ROS admits to pain all over her body including chest, back, bilateral lower legs but denies fevers, chills, urinary sxs, use of blood thinners. Endorses recent BMs In the ED, pt actively vomiting coffee ground emesis, hypotensive in the 80s and at times in the 60s, tachy above 110. Pt very difficulty to get IV and blood, attempted central line but pt unable to keep calm and stay still due to profuse vomiting, IO placed and 2 L NS give in pressure bag. Pts vitals improve to BP above 90 and HR below 100. Protonix 40mg given Sepsis order set ordered WBC 14 Dr. Kothari contacted and would like pt started on half NS maintenance dose and agrees that she should be admitted to the ICU for close watch at least over night REVIEW OF SYSTEMS: As per HPI PHYSICAL EXAMINATION Vital Signs - 24 hr 01/27/18 01/28/18 19:49 01:29 Temperature 96.6 F L Pulse Rate 101 H Pulse Rate [ 91 H Left Radial] Respiratory 22 H 18 Rate Blood Pressure 104/85 Blood Pressure 108/69 [Left Arm] O2 Sat by Pulse 96 99 Oximetry (%) GENERAL: AOX3 NAD HEAD: NCAT EYES: extraocular movements intact, sclera anicteric, conjunctiva clear. No lid lag. EARS, NOSE, THROAT: MMM NECK: Normal range of motion, supple without lymphadenopathy, JVD, or masses. LUNGS: crackles b/l HEART: RRR, normal S1 and S2 without murmur, rub or gallop. ABDOMEN: Soft, TTP diffuse more prom in epigastric MUSCULOSKELETAL: Normal range of motion at all joints. No bony deformities or tenderness. UPPER EXTREMITIES: 2+ pulses, warm, well-perfused. No cyanosis. No clubbing. Cap refill <2 seconds. No peripheral edema. LOWER EXTREMITIES: 2+ pulses, warm, well-perfused. No calf tenderness. No peripheral edema. NEUROLOGICAL: Cranial nerves II-XII intact. Normal speech. PSYCHIATRIC: Cooperative. Good eye contact. Appropriate mood and affect. SKIN: Warm, dry, normal turgor, no rashes or lesions noted. Laboratory Results - last 24 hr 01/27/18 01/27/18 01/27/18 20:19 20:19 20:19 WBC 14.5 H RBC 5.12 Hgb 15.2 Hct 47.3 H D MCV 92.3 MCH 29.7 MCHC 32.1 RDW 13.2 Plt Count 190 MPV 9.7 Absolute Neuts (auto) 8.0 Neutrophils % 55.5 Lymphocytes % 35.1 Monocytes % 6.9 Eosinophils % 1.2 D Basophils % 1.3 Nucleated RBC % 0 PT with INR INR PTT (Actin FS) D-Dimer VBG pH POC VBG pCO2 POC VBG pO2 Mixed VBG HCO3 Sodium 143 Potassium 3.6 Chloride 100 Carbon Dioxide 30 Anion Gap 13 BUN 28 H Creatinine 1.4 H Creat Clearance w eGFR 35.65 Random Glucose 195 H Lactic Acid Calcium 8.8 Total Bilirubin 1.1 H AST 32 ALT 34 Alkaline Phosphatase 96 Troponin I 0.02 Total Protein 6.9 Albumin 3.2 L Stool Occult Blood Blood Type Antibody Screen Crossmatch 01/27/18 01/27/18 01/27/18 20:19 22:52 22:52 WBC RBC Hgb Hct MCV MCH MCHC RDW Plt Count MPV Absolute Neuts (auto) Neutrophils % Lymphocytes % Monocytes % Eosinophils % Basophils % Nucleated RBC % PT with INR 11.80 INR 1.00 PTT (Actin FS) 33.7 D-Dimer VBG pH 7.44 H POC VBG pCO2 47.9 POC VBG pO2 33.6 D Mixed VBG HCO3 32.1 H Sodium Potassium Chloride Carbon Dioxide Anion Gap BUN Creatinine Creat Clearance w eGFR Random Glucose Lactic Acid Calcium Total Bilirubin AST ALT Alkaline Phosphatase Troponin I Total Protein Albumin Stool Occult Blood Blood Type A POSITIVE Antibody Screen Negative Crossmatch See Detail 01/27/18 01/27/18 01/27/18 22:52 22:52 23:56 WBC RBC Hgb Hct MCV MCH MCHC RDW Plt Count MPV Absolute Neuts (auto) Neutrophils % Lymphocytes % Monocytes % Eosinophils % Basophils % Nucleated RBC % PT with INR INR PTT (Actin FS) D-Dimer 1939 H VBG pH POC VBG pCO2 POC VBG pO2 Mixed VBG HCO3 Sodium Potassium Chloride Carbon Dioxide Anion Gap BUN Creatinine Creat Clearance w eGFR Random Glucose Lactic Acid 2.4 H* Calcium Total Bilirubin AST ALT Alkaline Phosphatase Troponin I Total Protein Albumin Stool Occult Blood Negative Blood Type Antibody Screen Crossmatch Active Medications Generic Name Dose Route Start Last Admin Trade Name Freq PRN Reason Stop Dose Admin Chlorhexidine Gluconate 1 applic 01/28/18 22:00 Hibiclens For Decolonization - TP HS LEXI Sodium Chloride 1,000 mls @ 1,000 mls/hr 01/28/18 01:18 01/28/18 01:26 Normal Saline - IV 01/28/18 02:17 1,000 mls/hr ASDIR STA Administration Sodium Chloride 1,000 mls @ 1,000 mls/hr 01/28/18 01:21 01/28/18 01:26 Normal Saline - IV 01/28/18 02:20 1,000 mls/hr ASDIR STA Administration Mupirocin 1 applic 01/28/18 10:00 Bactroban Ointment (For Decolonization) - NS 02/02/18 09:59 BID LEXI ASSESSMENT/PLAN: 87 y/o woman from home PMHx of: Dementia, CAD, COPD, CHF, IDDM, Gastroparesis, Hypothyroidism, p/w abd pain and vomit x 3d - 1 week w/ coffee ground emesis x 10 episodes per family for 1 day. Pt was hypotensive but has responded to fluid resuscitation #Gastrointestinal: Acute GI Bleed Likely 2/2 Gastroparesis vs Ulcer was hypotensive in the 80s and at times in the 60s, tachy above 110. s/p 2 L NS in ED vitals improve to BP above 90 and HR below 100. PRBCs, FFP-pending Protonix gtt GI Consult Stool occult neg Continue IVFs D51/2NS@42ml/hr Maintain MAP > 65 NPO Monitor H/H H/H is good at 15.2 # Endocrinology: Gastroparesis/IDDM/Hypothyroidism BGMs ISS Monitor BMP Consider Endocrinology consult #Cardiovascular: Cardiac Monitoring Troponin neg Hold BP meds secondary to hypotension Hold Asa secondary to GI bleed gentle hydration in consideration of CHF trend lactic #Renal GEOFF likely prerenal IVF monitor BMPs #ID sepsis - hypothermic, tachycardic tachypneac, leukocytosis UA neg f/u bcx, ucx CXR - poor quality, pt rotated and obese, may show some congestive changes vs infiltrates CT A/P- IMPRESSION: Incompletely seen right lower lobe mass may represent neoplasm. Questionable mild subpleural fibrosis. Recommend dedicated CT of the chest. Moderate-sized hiatal hernia. 3.1 cm fibroid. Sigmoid diverticulosis without diverticulitis. #Pulmonary: COPD Continue duonebs O2 #Neuro: Dementia Fall Precautions Hold meds for now, till vomiting subsides #FEN D51/2NS@42ml/hr Replete lytes prn NPO #DVT ppx TEDs/SCDs Hold AC secondary to Acute GI Bleed protonix gtt #Code Status: Full Code #Dispo: We will continue to follow the patient. Thank you for this consultative opportunity. ICU monitoring Visit type - Emergency Visit Emergency Visit: Yes ED Registration Date: 01/28/18 Care time: The patient presented to the Emergency Department on the above date and was hospitalized for further evaluation of their emergent condition. - New Patient This patient is new to me today: Yes Date on this admission: 01/28/18 - Critical Care Critical Care patient: Yes Total Critical Care Time (in minutes): 42 Critical Care Statement: The care of this patient involved high complexity decision making to prevent further life threatening deterioration of the patient 's condition and/or to evaluate & treat vital organ system(s) failure or risk of failure.
[2018-01-28] MEDS ORDERED: DEXTROSE 5%-0.45% SALINE 1,000 ML IV SCH (04:15)
[2018-01-28 05:50] LABS: BASO % 0.2 % (0-2.0); EOS % 0.3 % (0-4.5); HEMATOCRIT 40.2 % (32.4-45.2); MCH 29.6 pg (25.7-33.7); MCHC 32.3 g/dl (32.0-36.0); MEAN CELL VOLUME 91.5 fl (80-96); MEAN PLT VOLUME 9.9 fl (7.5-11.1); MONO % 7.7 % (3.8-10.2); NEUT % 72.8 % (42.8-82.8); PLATELET COUNT 160 K/MM3 (134-434); RDW 13.1 % (11.6-15.6)
[2018-01-28 06:28] LABS: ALBUMIN 2.8 g/dl (3.4-5.0); ALK PHOS 81 U/L (45-117); ANION GAP 9 MMOL/L (8-16); BILIRUBIN,TOTAL 1.2 mg/dL (0.2-1); BLOOD UREA NITROGEN 27 mg/dL (7-18); CALCIUM 7.8 mg/dL (8.5-10.1); CHLORIDE 107 mmol/L (98-107); CO2 30 mmol/L (21-32); GLUCOSE,RANDOM 78 mg/dL (74-106); MAGNESIUM 2.7 mg/dL (1.8-2.4); PHOSPHOROUS 2.7 mg/dL (2.5-4.9); POTASSIUM 3.5 mmol/L (3.5-5.1); SGOT/AST 61 U/L (15-37); SGPT/ALT 30 U/L (13-61); SODIUM 146 mmol/L (136-145); TOT PROT 5.7 g/dl (6.4-8.2)
[2018-01-28] MEDS: INSULIN SLIDING SCALE (NOVOLOG) 1 VIAL SQ SCH ×5 (09:06→21:23)
[2018-01-28] MEDS ORDERED: PT OWN MED DRAWER 7, Y5N ONE (09:08)
--- NOTE | 2018-01-28 09:09 | PN ---
Physical Exam: SUBJECTIVE: Patient seen and examined at bed side this morning. No complaints. Denies chest pain, sob, cough, palpitation, abdominal pain, nausea or vomiting. No bowel movement this morning. No signs of active bleed. No acute overnight events. OBJECTIVE: Vital Signs Period Temp Pulse Resp BP Sys/Gu Pulse Ox Last 24 Hr 96.6 F-98.4 F 74-101 18-22 103-113/67-85 96-99 GENERAL: Elderly female, lying in bed comfortably, in no acute distress, roland in place, IO in lower ext. HEAD: Normal with no signs of trauma. EYES: EOM intact, no pallor or icterus. ENT: Ears normal, moist mucous membranes. NECK: Supple. LUNGS: B/L Breath sounds equal, no crackles or wheeze. HEART: Regular rate and rhythm, S1, S2 with soft systolic murmur. ABDOMEN: Soft, nontender, no organomegaly appreciated. EXTREMITIES: 2+ pulses, warm, well-perfused, no edema. NEUROLOGICAL: No facial droop. Normal speech, gait not observed. PSYCH: Normal mood, normal affect. SKIN: Warm, dry, normal turgor, no rashes or lesions noted Laboratory Results - last 24 hr 01/27/18 01/27/18 01/27/18 20:19 20:19 20:19 WBC 14.5 H RBC 5.12 Hgb 15.2 Hct 47.3 H D MCV 92.3 MCH 29.7 MCHC 32.1 RDW 13.2 Plt Count 190 MPV 9.7 Absolute Neuts (auto) 8.0 Neutrophils % 55.5 Lymphocytes % 35.1 Monocytes % 6.9 Eosinophils % 1.2 D Basophils % 1.3 Nucleated RBC % 0 PT with INR INR PTT (Actin FS) D-Dimer VBG pH POC VBG pCO2 POC VBG pO2 Mixed VBG HCO3 Sodium 143 Potassium 3.6 Chloride 100 Carbon Dioxide 30 Anion Gap 13 BUN 28 H Creatinine 1.4 H Creat Clearance w eGFR 35.65 POC Glucometer Random Glucose 195 H Lactic Acid Calcium 8.8 Phosphorus Magnesium Total Bilirubin 1.1 H AST 32 ALT 34 Alkaline Phosphatase 96 Troponin I 0.02 Total Protein 6.9 Albumin 3.2 L Urine Color Urine Appearance Urine pH Ur Specific [place] Urine Protein Urine Glucose (UA) Urine Ketones Urine Blood Urine Nitrite Urine Bilirubin Urine Urobilinogen Ur Leukocyte Esterase Urine WBC (Auto) Urine RBC (Auto) Ur Epithelial Cells Urine Bacteria Hyaline Casts Urine Mucus Stool Occult Blood Blood Type Antibody Screen Crossmatch 01/27/18 01/27/18 01/27/18 20:19 22:52 22:52 WBC RBC Hgb Hct MCV MCH MCHC RDW Plt Count MPV Absolute Neuts (auto) Neutrophils % Lymphocytes % Monocytes % Eosinophils % Basophils % Nucleated RBC % PT with INR 11.80 INR 1.00 PTT (Actin FS) 33.7 D-Dimer VBG pH 7.44 H POC VBG pCO2 47.9 POC VBG pO2 33.6 D Mixed VBG HCO3 32.1 H Sodium Potassium Chloride Carbon Dioxide Anion Gap BUN Creatinine Creat Clearance w eGFR POC Glucometer Random Glucose Lactic Acid Calcium Phosphorus Magnesium Total Bilirubin AST ALT Alkaline Phosphatase Troponin I Total Protein Albumin Urine Color Urine Appearance Urine pH Ur Specific [place] Urine Protein Urine Glucose (UA) Urine Ketones Urine Blood Urine Nitrite Urine Bilirubin Urine Urobilinogen Ur Leukocyte Esterase Urine WBC (Auto) Urine RBC (Auto) Ur Epithelial Cells Urine Bacteria Hyaline Casts Urine Mucus Stool Occult Blood Blood Type A POSITIVE Antibody Screen Negative Crossmatch See Detail 01/27/18 01/27/18 01/27/18 22:52 22:52 23:56 WBC RBC Hgb Hct MCV MCH MCHC RDW Plt Count MPV Absolute Neuts (auto) Neutrophils % Lymphocytes % Monocytes % Eosinophils % Basophils % Nucleated RBC % PT with INR INR PTT (Actin FS) D-Dimer 1939 H VBG pH POC VBG pCO2 POC VBG pO2 Mixed VBG HCO3 Sodium Potassium Chloride Carbon Dioxide Anion Gap BUN Creatinine Creat Clearance w eGFR POC Glucometer Random Glucose Lactic Acid 2.4 H* Calcium Phosphorus Magnesium Total Bilirubin AST ALT Alkaline Phosphatase Troponin I Total Protein Albumin Urine Color Urine Appearance Urine pH Ur Specific [place] Urine Protein Urine Glucose (UA) Urine Ketones Urine Blood Urine Nitrite Urine Bilirubin Urine Urobilinogen Ur Leukocyte Esterase Urine WBC (Auto) Urine RBC (Auto) Ur Epithelial Cells Urine Bacteria Hyaline Casts Urine Mucus Stool Occult Blood Negative Blood Type Antibody Screen Crossmatch 01/28/18 01/28/18 01/28/18 01:13 05:30 05:30 WBC 15.0 H RBC 4.40 Hgb 13.0 Hct 40.2 D MCV 91.5 MCH 29.6 MCHC 32.3 RDW 13.1 Plt Count 160 MPV 9.9 Absolute Neuts (auto) 10.9 H Neutrophils % 72.8 D Lymphocytes % 19.0 D Monocytes % 7.7 Eosinophils % 0.3 Basophils % 0.2 Nucleated RBC % 0 PT with INR INR PTT (Actin FS) D-Dimer VBG pH POC VBG pCO2 POC VBG pO2 Mixed VBG HCO3 Sodium 146 H Potassium 3.5 Chloride 107 Carbon Dioxide 30 Anion Gap 9 BUN 27 H Creatinine 1.0 Creat Clearance w eGFR 52.57 POC Glucometer Random Glucose 78 Lactic Acid Calcium 7.8 L Phosphorus 2.7 Magnesium 2.7 H Total Bilirubin 1.2 H AST 61 H ALT 30 Alkaline Phosphatase 81 Troponin I Total Protein 5.7 L Albumin 2.8 L Urine Color Yellow Urine Appearance Clear Urine pH 8.0 D Ur Specific [place] 1.017 Urine Protein 1+ H Urine Glucose (UA) 2+ H Urine Ketones Negative Urine Blood Negative Urine Nitrite Negative Urine Bilirubin Negative Urine Urobilinogen Negative Ur Leukocyte Esterase Negative Urine WBC (Auto) 1 Urine RBC (Auto) 1 Ur Epithelial Cells Rare Urine Bacteria Rare Hyaline Casts 3 Urine Mucus Rare Stool Occult Blood Blood Type Antibody Screen Crossmatch 01/28/18 01/28/18 05:30 05:37 WBC RBC Hgb Hct MCV MCH MCHC RDW Plt Count MPV Absolute Neuts (auto) Neutrophils % Lymphocytes % Monocytes % Eosinophils % Basophils % Nucleated RBC % PT with INR INR PTT (Actin FS) D-Dimer VBG pH POC VBG pCO2 POC VBG pO2 Mixed VBG HCO3 Sodium Potassium Chloride Carbon Dioxide Anion Gap BUN Creatinine Creat Clearance w eGFR POC Glucometer [id number] Random Glucose Lactic Acid 0.9 Calcium Phosphorus Magnesium Total Bilirubin AST ALT Alkaline Phosphatase Troponin I Total Protein Albumin Urine Color Urine Appearance Urine pH Ur Specific [place] Urine Protein Urine Glucose (UA) Urine Ketones Urine Blood Urine Nitrite Urine Bilirubin Urine Urobilinogen Ur Leukocyte Esterase Urine WBC (Auto) Urine RBC (Auto) Ur Epithelial Cells Urine Bacteria Hyaline Casts Urine Mucus Stool Occult Blood Blood Type Antibody Screen Crossmatch Active Medications Generic Name Dose Route Start Last Admin Trade Name Freq PRN Reason Stop Dose Admin Chlorhexidine Gluconate 1 applic 01/28/18 22:00 Hibiclens For Decolonization - TP HS LEXI Pantoprazole Sodium 80 mg/ 100 mls @ 10 mls/hr 01/28/18 02:00 01/28/18 03:33 Sodium Chloride IVPB 10 mls/hr Q10H LEXI Administration 8 MG/HR Dextrose/Sodium Chloride 1,000 mls @ 42 mls/hr 01/28/18 04:15 01/28/18 04:52 D5-1/2ns - IV 42 mls/hr ASDIR LEXI Administration Influenza Virus Vaccine Quadrival 60 mcg 01/28/18 10:00 Flulaval Quad [id number] IM 01/28/18 10:01 .ONCE ONE Insulin Aspart 1 vial 01/28/18 02:00 Novolog Vial Sliding Scale - SQ Q4HPO [facility] Protocol Mupirocin 1 applic 01/28/18 10:00 Bactroban Ointment (For Decolonization) - NS 02/02/18 09:59 [address] [facility] [address] A/P- IMPRESSION: Incompletely seen right lower lobe mass may represent neoplasm.Questionable mild subpleural fibrosis.Moderate-sized hiatal hernia. 3.1 cm fibroid.Sigmoid diverticulosis without diverticulitis. 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 GI Acute GI bleed-unknown etiology Stool for occult blood negative On IV protonix drip IV 1/2 NS @ 42 mls/hr No overnight events in ICU, no signs of active bleed, H/H stable (13/40.2) can be monitored in Med-Surg. Started on Diabetic diet today Appreciate Dr. Kothari's consult who recommends: UGI series ordered. Endocrinology Gastroparesis/IDDM/Hypothyroidism Insulin sliding scale BGMs ACHS Cardiovascular Patient was hypotensive on admission, responded to IV Fluids. Home meds on hold Renal GEOFF likely prerenal- Resolved Creatinine 1 today Avoid nephrotoxic drugs Pulmonary COPD not on exacerbation Continue duonebs O2 PRN Neuro Dementia Fall Precautions FEN Will d/c fluids, if she tolerates diet Replete lytes prn Diabetic diet Prophylaxis For DVT: Scds For GI: IV Protonix 40mg Daily. Code Status: Full Code Dispo: Admitted in ICU-no active events, patient is stable to be transferred to Med-surg. Illness, Investigation and Plan of care explained to the patient. She verbalized understanding. Case seen and discussed with Dr. Bautista. Visit type - Emergency Visit Emergency Visit: Yes ED Registration Date: 01/28/18 Care time: The patient presented to the Emergency Department on the above date and was hospitalized for further evaluation of their emergent condition. - New Patient This patient is new to me today: Yes Date on this admission: 01/28/18 - Critical Care Critical Care patient: Yes Total Critical Care Time (in minutes): 35 Critical Care Statement: The care of this patient involved high complexity decision making to prevent further life threatening deterioration of the patient 's condition and/or to evaluate & treat vital organ system(s) failure or risk of failure.
--- NOTE | 2018-01-28 09:57 | CON.GI ---
Consult Consult Specialty:: GI Referred by:: Dr Vitor Peñaloza Reason for Consultation:: Vomiting, coffee grounds emesis - History of Present Illness Chief Complaint: Pt unable to give history. History obtained from chart and last night from Dr Peñaloza. In brief, she is an 87 y.o. obese diabetic woman with reported dementia who has had multiple ER visits for abdominal pain or vomiting or both over the past years. This year alone she has had [address] scans; I counted [address] scans since 2012. In general no acute process has ever been noted. She carries a diagnosis of gastroparesis although I cannot determine how this diagnosis was made from my review of the chart today. Of interest, her weight on admission was 212 lbs and it was 215 in October , not significantly different. - History Source History Provided By: Medical Record - Past Medical History [employer]OMOTIVE BU[employer]ER: Yes: Dementia, 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 2011 dobut MIBI: no STs ; moderate reversible defect anterior and lateral faith confounded by large breast shadow; nl EF -> pt didn't follow as outpt as planned (was on DATP for a little while). Echo 09/13: nl LVEF, nl RV, nl valve fxn), HTN, Hyperlipdemia Pulmonary: Yes: COPD Gastrointestinal: Yes: Constipation Endocrine: Yes: Diabetes Mellitus (insulin-dependent for years -> uncontrolled) , Hypothyroidism Dermatology: Yes: Cellulitis (in past, with chronic and intermittent edema) - Alcohol/Substance Use Hx Alcohol Use: No History of Substance Use: reports: None - Smoking History Smoking history: Never smoked Have you smoked in the past 12 months: No Aproximately how many cigarettes per day: 0 If you are a former smoker, when did you quit?: 1984 - Social History Usual Living Arrangement: With Spouse (who is on HD) ADL: Family Assistance History of Recent Travel: No Home Medications - Allergies Allergies/Adverse Reactions: Allergies Allergy/AdvReac Type Severity Reaction Status Date / Time vancomycin AdvReac Itching Verified 01/27/18 20:01 - Home Medications Home Medications: Ambulatory Orders Insulin Sliding Scale [Novolog Vial Sliding Scale -] 1 vial SQ ACHS units 03/16 Atorvastatin Ca [Lipitor] 40 mg PO HS 06/08/17 Ranitidine [Zantac -] 150 mg PO BID 06/08/17 Pantoprazole Sodium [Protonix -] 40 mg PO BID #60 tablet.ec 06/14/17 Potassium Chloride 20 meq PO DAILY #30 tablet.er 06/14/17 Furosemide [Lasix] 40 mg PO DAILY 10/08/17 Valsartan [Diovan] 160 mg PO DAILY 10/08/17 Acetaminophen [Tylenol .Regular Strength -] 650 mg PO Q4H PRN #20 tablet MDD 4 10/12/17 Cephalexin [Keflex] 500 mg PO TID #15 capsule MDD 3 10/12/17 Insulin Degludec [Tresiba Flextouch U-100] 20 unit SQ HS #1 insuln.pen 10/12/17 Levothyroxine [Synthroid -] 125 mcg PO DAILY@0700 #30 tablet MDD 1 10/12/17 Family Disease History - Family Disease History Family Disease History: Diabetes: Daughter Physical Exam-GI Vital Signs: Vital Signs Temperature 98.4 F 01/28/18 03:47 Pulse Rate 74 01/28/18 08:00 Respiratory Rate 21 H 01/28/18 08:00 Blood Pressure 113/67 01/28/18 08:00 O2 Sat by Pulse Oximetry (%) 99 01/28/18 04:13 Constitutional: Yes: Obese ...Palpate: Yes: Other (No tenderness even to deep palpation.) Labs: CBC, BMP 01/28/18 05:30 01/28/18 05:30 INR, PTT INR 1.00 (0.83-1.09) 01/27/18 22:52 Imaging - Results Cat Scan: Image Reviewed (No acute process.) Assessment/Plan Recurrent episodes of vomiting in an 87 year old woman who is unable to give any history. She has not been losing weight, apparently. Currently she has no pain, no vomiting, and her Hgb is quite normal, so any bleeding she may have had was trivial in amount. I would recommend transfer to the floor. Begin diabetic diet. Obtain UGI series if patient will cooperate to exclude any partial gastric outlet obstruction, although I think this is unlikely, given her lack of weight loss and the long history of the complaint. She may have gastroparesis but if she will not cooperate with an UGI series she will most likely not cooperate with a gastric emptying study, which would help document the issue.
[2018-01-28] MEDS ORDERED: FLU VACCINE QUAD 60 MCG/0.5 ML (MDV 18-19) IM ONE (10:00)
[2018-01-28] MEDS ORDERED: MUPIROCIN 2% TOPICAL OINTMENT FOR DECOLONIZATION NS SCH ×2 (10:00→22:00)
--- NOTE | 2018-01-28 10:45 | PN ---
Teaching Attending Note Name of Resident: Zena Munroe ATTENDING PHYSICIAN STATEMENT I saw and evaluated the patient. I reviewed the resident's note and discussed the case with the resident. I agree with the resident's findings and plan as documented. SUBJECTIVE: Pt seen and examined in the ICU. No further episodes of vomiting. Stool occult blood negative. Denies abdominal pain. OBJECTIVE: Vital Signs Period Temp Pulse Resp BP Sys/Gu Pulse Ox Last 24 Hr 96.6 F-98.4 F 74-101 18-22 103-113/67-85 96-99 Intake & Output 01/25/18 01/26/18 01/27/18 01/28/18 23:59 23:59 23:59 23:59 Intake Total 126 Output Total 100 Balance 26 Weight 95.254 kg 96.4 kg Gen: NAD at rest Heart: RRR Lung: decreased breath sounds at the bases Abd: soft, nontender Ext: no edema CBC, BMP 01/28/18 05:30 01/28/18 05:30 Active Medications Chlorhexidine Gluconate (Hibiclens For Decolonization -) 1 applic TP HS LEXI Dextrose/Sodium Chloride (D5-1/2ns -) 1,000 mls @ 42 mls/hr IV ASDIR LEXI Last Admin: 01/28/18 04:52 Dose: 42 mls/hr Insulin Aspart (Novolog Vial Sliding Scale -) 1 vial SQ Q4HPO [facility]; Protocol Last Admin: 01/28/18 09:06 Dose: Not Given Mupirocin (Bactroban Ointment (For Decolonization) -) 1 applic NS BID LEXI Stop: 02/02/18 09:59 Last Admin: 01/28/18 09:15 Dose: 1 applic Pantoprazole Sodium (Protonix -) 40 mg PO ONCE ONE Stop: 01/28/18 10:14 ASSESSMENT AND PLAN: Nausea/Vomiting Gastroparesis CAD COPD DM Hypothyroidism Dementia - d/c IO line - monitor H/H - PO as tolerated - protonix - DVT prophylaxis - can monitor on floor
[2018-01-28] MEDS ORDERED: SODIUM CHLORIDE 0.45% 1,000 ML IV SCH (11:00)
[2018-01-28] MEDS ORDERED: PANTOPRAZOLE 40 MG TABLET (FP) PO ONE ×2 (11:00→11:16)
[2018-01-28] MEDS ORDERED: PANTOPRAZOLE 40 MG TABLET (FP) PO SCH (12:30)
[2018-01-28] MEDS ORDERED: morphine SULFATE 4 MG/ML VIAL IVPUSH ONE (13:20)
[2018-01-28] MEDS ORDERED: morphine CARPU-JECT 4 MG/1 ML DISP.SYRIN IVPUSH ONE (13:20)
--- NOTE | 2018-01-28 13:59 | EKG ---
Test Reason : Blood Pressure : / mmHG Vent. Rate : 106 BPM Atrial Rate : 078 BPM P-R Int : 000 ms QRS Dur : 092 ms QT Int : 408 ms P-R-T Axes : 000 -09 168 degrees QTc Int : 541 ms UNDETERMINED RHYTHM ABNORMAL ECG WHEN COMPARED WITH ECG OF 08-OCT-2017 09:17, JUNCTIONAL RHYTHM HAS REPLACED SINUS RHYTHM Confirmed by MD Shelby, Dashawn ([id number]) on 01/28/2018 1:59:08 PM Referred By: Confirmed By:Dashawn Ryan MD
[2018-01-28] MEDS ORDERED: INSULIN (NOVOLOG) ASPART 100 UNITS/ML 10ML VIAL ONE ×2 (16:30→16:38)
[2018-01-28] MEDS ORDERED: ACETAMINOPHEN 325 MG TABLET (FP) PO ONE (20:30)
--- NOTE | 2018-01-28 21:53 | CONSULT ---
Consult Consult Specialty:: endocrine Referred by:: bozena Reason for Consultation:: diabetes mellitus hyperglycemia - History of Present Illness Chief Complaint: high sugar/ nausea vomiting History of Present Illness: 87 y/o woman from home PMHx of: Dementia, CAD, COPD, IDDM, Gastroparesis, Hypothyroidism. Who presents to the ED via EMS with coffee ground emesis. Per ED records: Pt reportedly has been feeling weak, dizzy along with abdominal pain for the past 1 week. NB/NB Vomiting began prior to and during admission required hospitalization for ivfluid and antiemetic therapy.she has frequent bloating and gas feeling ,her blood sugars and diabetic diet compliance has remained limited with lack of activity and restricted mobility. 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 2011 dobut MIBI: no STs ; moderate reversible defect anterior and lateral faith confounded by large breast shadow; nl EF -> pt didn't follow as outpt as planned (was on DATP for a little while). Echo 09/13: nl LVEF, nl RV, nl valve fxn), HTN, Hyperlipdemia Pulmonary: Yes: COPD Gastrointestinal: Yes: Constipation Endocrine: Yes: Diabetes Mellitus (insulin-dependent for years -> uncontrolled) , Hypothyroidism Dermatology: Yes: Cellulitis (in past, with chronic and intermittent edema) - Alcohol/Substance Use Hx Alcohol Use: No History of Substance Use: reports: None - Smoking History Smoking history: Never smoked Have you smoked in the past 12 months: No Aproximately how many cigarettes per day: 0 If you are a former smoker, when did you quit?: 1984 - Social History Usual Living Arrangement: With Spouse (who is on HD) ADL: Family Assistance History of Recent Travel: No Home Medications - Allergies Allergies/Adverse Reactions: Allergies Allergy/AdvReac Type Severity Reaction Status Date / Time vancomycin AdvReac Itching Verified 01/27/18 20:01 - Home Medications Home Medications: Ambulatory Orders Insulin Sliding Scale [Novolog Vial Sliding Scale -] 1 vial SQ ACHS units 03/16 Atorvastatin Ca [Lipitor] 40 mg PO HS 06/08/17 Ranitidine [Zantac -] 150 mg PO DAILY 06/08/17 Pantoprazole Sodium [Protonix -] 40 mg PO BID #60 tablet.ec 06/14/17 Potassium Chloride 20 meq PO DAILY #30 tablet.er 06/14/17 Furosemide [Lasix] 40 mg PO DAILY 10/08/17 Valsartan [Diovan] 160 mg PO DAILY 10/08/17 Acetaminophen [Tylenol .Regular Strength -] 650 mg PO Q4H PRN #20 tablet MDD 4 10/12/17 Levothyroxine [Synthroid -] 125 mcg PO DAILY@0700 #30 tablet MDD 1 10/12/17 Insulin Degludec [Tresiba Flextouch U-100] 20 unit SQ ACBK 01/28/18 Family Disease History - Family Disease History Family Disease History: Diabetes: Daughter Review of Systems - Review of Systems Constitutional: reports: Weakness Eyes: reports: No Symptoms HENT: reports: No Symptoms Neck: reports: Swollen Glands Cardiovascular: reports: Shortness of Breath Respiratory: reports: Exercise Intolerance, SOB, SOB on Exertion, Wheezing Gastrointestinal: reports: Bloating, Nausea Genitourinary: reports: Frequency, Incontinence Breasts: reports: No Symptoms Reported Musculoskeletal: reports: Joint Pain, Joint Swelling, Muscle Pain Neurological: reports: Numbness, Unsteady Gait, Weakness Endocrine: reports: Increased Thirst Physical Exam Vital Signs: Vital Signs Temperature 98.2 F 01/28/18 18:00 Pulse Rate 87 01/28/18 18:00 Respiratory Rate 20 01/28/18 18:00 Blood Pressure 123/71 01/28/18 18:00 O2 Sat by Pulse Oximetry (%) 99 01/28/18 12:14 Constitutional: Yes: Anxious Eyes: Yes: EOM Intact HENT: Yes: Normocephalic Neck: Yes: Trachea Midline Cardiovascular: Yes: Regular Rate and Rhythm Respiratory: Yes: SOB on Exertion, Tachypnea, Wheezes Gastrointestinal: Yes: Normal Bowel Sounds, Abdomen, Obese, Pulsatile Mass, Vomiting ...Rectal Exam: Yes: Deferred Renal/: Yes: WNL Musculoskeletal: Yes: Back Pain, Muscle Weakness Extremities: Yes: Delayed Capillary Refill Edema: LLE: 1+, RLE: 1+ Integumentary: Yes: Venous Stasis Changes Neurological: Yes: Alert, Oriented Labs: CBC, BMP 10/28/18 05:30 01/28/18 05:30 Problem List - Problems (1) Dehydration Code(s): E86.0 - DEHYDRATION (2) Diabetes mellitus, insulin dependent (IDDM), uncontrolled Code(s): E10.65 - TYPE 1 DIABETES MELLITUS WITH HYPERGLYCEMIA (3) GI (gastrointestinal bleed) Code(s): K92.2 - GASTROINTESTINAL HEMORRHAGE, UNSPECIFIED (4) Nausea & vomiting Code(s): R11.2 - NAUSEA WITH VOMITING, UNSPECIFIED (5) Acute renal failure Code(s): N17.9 - ACUTE KIDNEY FAILURE, UNSPECIFIED Qualifiers: Acute renal failure type: unspecified Qualified Code(s): N17.9 - Acute kidney failure, unspecified (6) Bakers cyst Code(s): M71.20 - SYNOVIAL CYST OF POPLITEAL SPACE [PETER], UNSPECIFIED KNEE Assessment/Plan Current Active Problems Chest mass (Acute) Dehydration (Acute) Diabetes mellitus, insulin dependent (IDDM), uncontrolled (Acute) GI (gastrointestinal bleed) (Acute) Nausea & vomiting (Acute) hypothyroidism angelo thyroiditis Abnormal Lab Results 01/27/18 01/27/18 01/27/18 20:19 22:52 22:52 WBC Absolute Neuts (auto) D-Dimer VBG pH 7.44 H Mixed VBG HCO3 32.1 H Sodium BUN Lactic Acid 2.4 H* Calcium Magnesium Total Bilirubin AST Total Protein Albumin Urine Protein Urine Glucose (UA) Crossmatch See Detail 01/27/18 01/28/18 01/28/18 22:52 01:13 05:30 WBC 15.0 H Absolute Neuts (auto) 10.9 H D-Dimer 1939 H VBG pH Mixed VBG HCO3 Sodium BUN Lactic Acid Calcium Magnesium Total Bilirubin AST Total Protein Albumin Urine Protein 1+ H Urine Glucose (UA) 2+ H Crossmatch 01/28/18 05:30 WBC Absolute Neuts (auto) D-Dimer VBG pH Mixed VBG HCO3 Sodium 146 H BUN 27 H Lactic Acid Calcium 7.8 L Magnesium 2.7 H Total Bilirubin 1.2 H AST 61 H Total Protein 5.7 L Albumin 2.8 L Urine Protein Urine Glucose (UA) Crossmatch plan: bgm qid novolog insulin scale Current Medications Generic Name Dose Route Start Last Admin Trade Name Freq PRN Reason Stop Dose Admin Chlorhexidine Gluconate 1 applic 01/28/18 22:00 01/28/18 21:23 Hibiclens For Decolonization - TP Not Given HS LEXI Sodium Chloride 1,000 mls @ 42 mls/hr 01/28/18 11:00 01/28/18 12:23 1/2 Normal Saline IV 42 mls/hr ASDIR LEXI Administration Insulin Aspart 1 vial 01/28/18 16:30 01/28/18 21:23 Novolog Vial Sliding Scale - SQ 4 unit ACHS LEXI Administration Protocol Mupirocin 1 applic 01/28/18 22:00 01/28/18 21:23 Bactroban Ointment (For Decolonization) - NS 02/02/18 09:59 Not Given BID LEXI Pantoprazole Sodium 40 mg 01/28/18 12:30 01/28/18 13:33 Protonix - PO Not Given DAILY LEXI synthroid 125mcg q am levemir 10 units ac breakfeast
[2018-01-28] MEDS ORDERED: CHLORHEXIDINE GLUCONATE 4% CLEANSER FOR DECOLONIZATION TP SCH ×2 (22:00)
[2018-01-28] MEDS ORDERED: ACETAMINOPHEN/CAFFEINE/BUTALBITAL 1 TAB PO ONE (22:33)
--- NOTE | 2018-01-29 03:54 | HOSP ---
Subjective - Review of Symptoms Events since last encounter: Hospitalist Encounter Notified by the RN that the patient was having chest pain. Subjective: Arrived to bedside patient is alert, awake at baseline, reports having CP to midsternal. Plan: Stat- EKG Stat- Troponin Cardiovascular: Yes: Chest Pain Physical Examination Vital Signs: Vital Signs Temperature 98.0 F 01/29/18 01:42 Pulse Rate 79 01/29/18 03:09 Respiratory Rate 20 01/29/18 03:09 Blood Pressure 110/61 01/29/18 03:09 O2 Sat by Pulse Oximetry (%) 99 01/28/18 12:14 Constitutional: Yes: No Distress, Calm, Obese Eyes: Yes: WNL, Conjunctiva Clear, PERRL HENT: Yes: WNL, Atraumatic, Normocephalic Neck: Yes: WNL, Supple, Trachea Midline Cardiovascular: Yes: Regular Rate and Rhythm, S1, S2 Respiratory: Yes: WNL, Regular, CTA Bilaterally Gastrointestinal: Yes: Normal Bowel Sounds, Soft, Abdomen, Obese, Tenderness, Epigastrium. No: Melena, Rectal Bleeding Musculoskeletal: Yes: WNL Extremities: Yes: WNL Edema: No Peripheral Pulses WNL: Yes Neurological: Yes: Alert, Cran Nerves II-XII Intact ...Motor Strength: WNL Psychiatric: Yes: Alert Labs: CBC, BMP 01/28/18 05:30 01/28/18 05:30 Hospitalist Encounter Outcome: EKG reviewed- SR with AV block, PACs, non specific T wave abnormality Troponin- pending Addendum: Received call from the RN Trop 5.18 Arranging transfer to ICU for NSTEMI Call placed to cardiology discussed with Dr. Gustafson Call placed to GI discussed with Dr. Gross Will order Asa, Reglan and Protonix Drip per GI discussion Serial Enzymes Will continue to monitor closely Critical Care Total Critical Care Time (in minutes): 75 Critical Care Statement: The care of this patient involved high complexity decision making to prevent further life threatening deterioration of the patient 's condition and/or to evaluate & treat vital organ system(s) failure or risk of failure.
[2018-01-29] MEDS ORDERED: ASPIRIN 81 MG CHEWABLE TABLETS PO ONE (04:08)
[2018-01-29] MEDS ORDERED: PANTOPRAZOLE SODIUM 80 MG in SODIUM CHLORIDE 100 ML IVPB SCH (04:15)
[2018-01-29] MEDS: SODIUM CHLORIDE 0.45% 1,000 ML IV SCH ×2 (05:07→10:09)
[2018-01-29] MEDS: LEVOTHYROXINE NA 125 MCG TABLET (FP) PO SCH (06:02)
--- NOTE | 2018-01-29 06:28 | PN ---
Progress Note (short form) - Note Progress Note: Patient transferred back from floors due to possible NSTEMI Around 0300 this morning patient was complaining of Midsternal CP and hospitalist was notified EKG done and revealed NSR @ 80's BPM w no ST-T changes and first degree AV block Troponins drawn, which revealed a level of 5.18 Patient however has a history of GI bleed. Call made out to Cardiology for initiation of Heparin drip. Call made out to GI by hospitalist and recommended protonix drip and Reglan Full dose ASA 325mg po given Patient transferred back to ICU due to no telemetry beds available VITALS: BP- 133/73 HR- 80's BPM Sp02- 100% on RA RR- 14 PHYSICAL EXAM: GENERAL: Awake, Alert, laying in bed in no acute distress EYES: EOM intact, no pallor or icterus. ENT: moist mucous membranes. NECK: Supple. LUNGS: B/L Breath sounds equal, no crackles or wheeze. HEART: Regular rate and rhythm, S1, S2 with soft systolic murmur. ABDOMEN: Soft, nontender, no organomegaly appreciated. : Ricketts in place EXTREMITIES: 2+ pulses, warm, well-perfused, no edema. NEUROLOGICAL: No facial droop. Non focal ASSESSMENT & PLAN: Patient is an 87 year old female who presented with abdominal pain and coffee ground emesis and found to have GI bleed with hypotension. Patient was fluid resuscitated with good response and then transferred to med/surg. Patient then complaned of Midsternal chest pain and troponin was 5.18, concerning for NSTEMI. Patient readmittede back to ICU for further monitoring and management #Chest Pain, Likely Secondary to NSTEMI #GI bleed #Gastroparesis/IDDM/Hypothyroidism #GEOFF- resolved #COPD In no acute exacerbation #Hypothyroidism -Troponin 5.18. Will repeat until peak -No ST-T changes on EKG. 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
[2018-01-29] MEDS ORDERED: morphine SULFATE 4 MG/ML VIAL ONE (06:43)
[2018-01-29] MEDS ORDERED: morphine CARPU-JECT 2 MG/1 ML DISP.SYRIN IVPUSH ONE (06:47)
[2018-01-29] MEDS ORDERED: LEVOTHYROXINE NA 125 MCG TABLET (FP) PO SCH (07:00)
[2018-01-29] MEDS ORDERED: INSULIN (LEVEMIR) 100 UNITS/ML UNITS SQ SCH (07:00)
[2018-01-29 07:58] LABS: HEMATOCRIT 39.5 % (32.4-45.2); HEMOGLOBIN 12.7 GM/dL (10.7-15.3); MCH 29.7 pg (25.7-33.7); MCHC 32.1 g/dl (32.0-36.0); MEAN CELL VOLUME 92.6 fl (80-96); MEAN PLT VOLUME 9.4 fl (7.5-11.1); PLATELET COUNT 146 K/MM3 (134-434); RBC 4.26 M/mm3 (3.60-5.2); RDW 13.4 % (11.6-15.6); WHITE BLOOD COUNT 10.6 K/mm3 (4.0-10.0)
[2018-01-29 08:24] LABS: INR 1.08 (0.83-1.09); PROTHROMBIN TIME (PATIENT) 12.8 SEC (9.7-13.0)
[2018-01-29 08:27] LABS: ACTIVATED PTT 28.5 SECONDS (25.2-36.5)
[2018-01-29 08:51] LABS: ANION GAP 4 MMOL/L (8-16); BLOOD UREA NITROGEN 23 mg/dL (7-18); CALCIUM 8.1 mg/dL (8.5-10.1); CHLORIDE 103 mmol/L (98-107); CO2 32 mmol/L (21-32); GLUCOSE,RANDOM 163 mg/dL (74-106); POTASSIUM 3.8 mmol/L (3.5-5.1); SODIUM 139 mmol/L (136-145)
--- NOTE | 2018-01-29 09:43 | EKG ---
Test Reason : Blood Pressure : / mmHG Vent. Rate : 082 BPM Atrial Rate : 082 BPM P-R Int : 278 ms QRS Dur : 096 ms QT Int : 418 ms P-R-T Axes : 076 -09 130 degrees QTc Int : 488 ms SINUS RHYTHM WITH 1ST DEGREE A-V BLOCK NONSPECIFIC T WAVE ABNORMALITY ABNORMAL ECG WHEN COMPARED WITH ECG OF 29-JAN-2018 01:15, PREMATURE ATRIAL COMPLEXES ARE NO LONGER PRESENT Confirmed by CUCA MARQUEZ, SCOTTY ([id number]) on 01/29/2018 9:42:21 AM Referred By: Confirmed By:SCOTTY THURMAN MD
[2018-01-29] MEDS: MUPIROCIN 2% TOPICAL OINTMENT FOR DECOLONIZATION NS SCH ×2 (09:55→22:39)
[2018-01-29] MEDS: METOCLOPRAMIDE HCL INJECTION 10 MG/2 ML VIAL IVPUSH SCH ×2 (09:55→22:12)
[2018-01-29] MEDS ORDERED: PANTOPRAZOLE SODIUM 40 MG VIAL IVPUSH SCH (10:00)
[2018-01-29] MEDS ORDERED: PANTOPRAZOLE 40 MG TABLET (FP) PO SCH (10:00)
[2018-01-29] MEDS ORDERED: MUPIROCIN 2% TOPICAL OINTMENT FOR DECOLONIZATION NS SCH (10:00)
[2018-01-29] MEDS ORDERED: HEPARIN NA (PORCINE) 5,000 UNITS/ML 1ML VIAL IVPUSH PRN ×2 (10:01)
[2018-01-29] MEDS ORDERED: SULFACETAMIDE SODIUM 10% OPHTHALMIC DROPS 15 ML BOTTLE OD SCH (11:45)
[2018-01-29] MEDS: HEPARIN - 25,000 UNIT in SODIUM CHLORIDE 495 ML IV SCH ×2 (11:49→21:00)
--- NOTE | 2018-01-29 11:49 | PN ---
Progress Note, Physician Chief Complaint: patient transferred to icu for chest pain earlier today postive troponin heparin drip to be started h/h stool occult negative no chest pain complains of dizziness - Current Medication List Current Medications: Active Medications Chlorhexidine Gluconate (Hibiclens For Decolonization -) 1 applic TP HS LEXI Heparin Sodium (Porcine) (Heparin -) 1,000 unit IVPUSH PRN PRN PRN Reason: Heparin Heparin Sodium (Porcine) (Heparin -) 5,000 unit IVPUSH PRN PRN PRN Reason: Heparin Pantoprazole Sodium 80 mg/ (Sodium Chloride) 100 mls @ 10 mls/hr IVPB Q10H [facility] Last Admin: 01/29/18 05:06 Dose: 10 mls/hr Sodium Chloride (1/2 Normal Saline) 1,000 mls @ 42 mls/hr IV ASDIR [facility] Last Admin: 01/29/18 10:09 Dose: 42 mls/hr Heparin Sodium (Porcine) 25, (000 unit/ Sodium Chloride) 500 mls @ 20 mls/hr IV TITR LEXI; Protocol Levothyroxine Sodium (Synthroid -) 125 mcg PO DAILY@0700 [facility] Last Admin: 01/29/18 06:02 Dose: 125 mcg Metoclopramide HCl (Reglan Injection -) 10 mg IVPUSH BID [facility] Last Admin: 01/29/18 09:55 Dose: 10 mg Mupirocin (Bactroban Ointment (For Decolonization) -) 1 applic NS BID [facility] Stop: 02/03/18 09:59 Last Admin: 01/29/18 09:55 Dose: 1 applic Nitroglycerin (Nitro-Bid 2% Paste -) 0.5 inch TD Q6HPO [facility] Sulfacetamide Sodium (Bleph-10 Ophthalmic Solution -) 1 drop OD Q3H [facility] - Objective Vital Signs: Vital Signs Temperature 98.6 F 01/29/18 10:00 Pulse Rate 81 01/29/18 10:00 Respiratory Rate 19 01/29/18 10:00 Blood Pressure 139/94 01/29/18 10:00 O2 Sat by Pulse Oximetry (%) 99 01/29/18 04:15 Eyes: Yes: Other (left conjuctival redness with yellowish discharge) Cardiovascular: Yes: Regular Rate and Rhythm, S1, S2 Respiratory: Yes: Diminished (at bases) Gastrointestinal: Yes: Normal Bowel Sounds, Soft Edema: Yes Neurological: Yes: Alert Labs: CBC, BMP 01/29/18 07:45 01/29/18 07:45 INR, PTT INR 1.08 (0.83-1.09) 01/29/18 08:00 Problem List - Problems (1) Eye inflammation Assessment/Plan: eye drops Code(s): H57.8 - OTHER SPECIFIED DISORDERS OF EYE AND ADNEXA * DO NOT USE * (2) Chest pain Assessment/Plan: icu monitoring trend troponin cardiology heparin drip nitropaste Code(s): R07.9 - CHEST PAIN, UNSPECIFIED (3) Hypothyroid Assessment/Plan: synthroid tsh Code(s): E03.9 - HYPOTHYROIDISM, UNSPECIFIED (4) Diabetes Assessment/Plan: insulin bgm noted Code(s): E11.9 - TYPE 2 DIABETES MELLITUS WITHOUT COMPLICATIONS (5) Nausea & vomiting Assessment/Plan: reglan upper GI series gi consult appreciate Code(s): R11.2 - NAUSEA WITH VOMITING, UNSPECIFIED
[2018-01-29] MEDS: NITROGLYCERIN 2% OINTMENT - 1GM PACKET TD SCH ×2 (11:51→17:04)
[2018-01-29] MEDS ORDERED: MORPHINE SULFATE 2 MG/ML VIAL IVPUSH PRN (12:14)
[2018-01-29] MEDS ORDERED: ATORVASTATIN CA 80 MG TABLET (FP) PO ONE (12:21)
[2018-01-29] MEDS ORDERED: POTASSIUM CHLORIDE TABS 20 MEQ TABLET.ER (FP) PO ONE (12:22)
[2018-01-29 12:43] LABS: MAGNESIUM 2.5 mg/dL (1.8-2.4); PHOSPHOROUS 2.8 mg/dL (2.5-4.9)
--- NOTE | 2018-01-29 12:43 | PN ---
Teaching Attending Note Name of Resident: Rubio Vale ATTENDING PHYSICIAN STATEMENT I saw and evaluated the patient. I reviewed the resident's note and discussed the case with the resident. I agree with the resident's findings and plan as documented. SUBJECTIVE: Pt seen and examined in the ICU. Transferred back down with episode of chest pain and +troponins. Still with pressure like chest pain with shortness of breath. No EKG changes. OBJECTIVE: Vital Signs Period Temp Pulse Resp BP Sys/Gu Pulse Ox Last 24 Hr 98.0 F-98.7 F 78-87 19-24 94-139/54-94 99-99 Intake & Output 01/26/18 01/27/18 01/28/18 01/29/18 23:59 23:59 23:59 23:59 Intake Total 616 272 Output Total 450 200 Balance 166 72 Weight 95.254 kg 96.4 kg 96.4 kg Gen: mildly tachypneic with speaking Heart: RRR Lung; decreased breath sounds at the bases Abd: soft, nontender Ext: no edema CBC, BMP 01/29/18 07:45 01/29/18 07:45 Active Medications Aspirin (Asa -) 81 mg PO DAILY [facility] Atorvastatin Calcium (Lipitor -) 80 mg PO HS LEXI Chlorhexidine Gluconate (Hibiclens For Decolonization -) 1 applic TP HS LEXI Heparin Sodium (Porcine) (Heparin -) 1,000 unit IVPUSH PRN PRN PRN Reason: Heparin Heparin Sodium (Porcine) (Heparin -) 5,000 unit IVPUSH PRN PRN PRN Reason: Heparin Last Admin: 01/29/18 11:49 Dose: 5,000 unit Sodium Chloride (1/2 Normal Saline) 1,000 mls @ 42 mls/hr IV ASDIR [facility] Last Admin: 01/29/18 10:09 Dose: 42 mls/hr Heparin Sodium (Porcine) 25, (000 unit/ Sodium Chloride) 500 mls @ 20 mls/hr IV TITR LEXI; Protocol Last Admin: 01/29/18 11:49 Dose: 1,000 unit/hr, 20 mls/hr Levothyroxine Sodium (Synthroid -) 125 mcg PO DAILY@0700 [facility] Last Admin: 01/29/18 06:02 Dose: 125 mcg Lisinopril (Prinivil) 2.5 mg PO DAILY [facility] Metoclopramide HCl (Reglan Injection -) 10 mg IVPUSH BID [facility] Last Admin: 01/29/18 09:55 Dose: 10 mg Metoprolol Tartrate (Lopressor -) 25 mg PO BID [facility] Morphine Sulfate (Morphine Sulfate) 2 mg IVPUSH Q4H PRN PRN Reason: PAIN LEVEL 6-10 Mupirocin (Bactroban Ointment (For Decolonization) -) 1 applic NS BID [facility] Stop: 02/03/18 09:59 Last Admin: 01/29/18 09:55 Dose: 1 applic Nitroglycerin (Nitro-Bid 2% Paste -) 0.5 inch TD Q6HPO [facility] Last Admin: 01/29/18 11:51 Dose: 0.5 inch Pantoprazole Sodium (Protonix Iv) 40 mg IVPUSH DAILY [facility] Sulfacetamide Sodium (Bleph-10 Ophthalmic Solution -) 1 drop OD Q3H [facility] ASSESSMENT AND PLAN: Acute NSTEMI Nausea/Vomiting Gastroparesis CAD COPD DM Hypothyroidism Dementia - antiplatelets - start anticoagulation - beta camille, statin - lipid panel - echocardiogram - nitrates as needed - cardiology eval - monitor H/H - PO as tolerated - protonix - DVT prophylaxis
[2018-01-29] MEDS: METOPROLOL TARTRATE 25 MG TABLET (FP) PO SCH ×2 (13:11→22:11)
[2018-01-29] MEDS: LISINOPRIL 5 MG TABLET (FP) PO SCH (13:11)
[2018-01-29] MEDS: PANTOPRAZOLE SODIUM 40 MG VIAL IVPUSH SCH (13:12)
[2018-01-29] MEDS ORDERED: PT OWN MED DRAWER 7, Y5N ONE (13:31)
--- NOTE | 2018-01-29 14:29 | PN ---
Physical Exam: SUBJECTIVE: Patient seen and examined in the ICU. Transferred back down with episode of chest pain and +troponins. No EKG changes. pt reports some intermittent non radiating squeezing like cp. denies sob. a-fib noted on tele OBJECTIVE: Vital Signs Period Temp Pulse Resp BP Sys/Gu Pulse Ox Last 24 Hr 98.0 F-98.7 F 78-90 13-24 94-148/54-94 99-99 GENERAL: AOX3, mild distress EYES: EOM intact, no pallor or icterus. ENT: MMM NECK: Supple. LUNGS: CTAB HEART: RRR, S1, S2 with soft systolic murmur. ABDOMEN: Soft, NTND, no organomegaly appreciated. : Ricketts in place EXTREMITIES: 2+ pulses, warm, well-perfused, no edema. NEUROLOGICAL: No facial droop. Non focal Laboratory Results - last 24 hr 01/28/18 01/28/18 01/29/18 16:26 21:22 01:25 WBC RBC Hgb Hct MCV MCH MCHC RDW Plt Count MPV PT with INR INR PTT (Actin FS) Sodium Potassium Chloride Carbon Dioxide Anion Gap BUN Creatinine Creat Clearance w eGFR POC Glucometer 232 213 Random Glucose Calcium Phosphorus Magnesium Creatine Kinase 178 Creatine Kinase Index 3.1 CK-MB (CK-2) 5.6 H Troponin I 5.18 H* 01/29/18 01/29/18 01/29/18 07:45 07:45 08:00 WBC 10.6 H RBC 4.26 Hgb 12.7 Hct 39.5 MCV 92.6 MCH 29.7 MCHC 32.1 RDW 13.4 Plt Count 146 MPV 9.4 PT with INR 12.80 INR 1.08 PTT (Actin FS) 28.5 Sodium 139 Potassium 3.8 Chloride 103 Carbon Dioxide 32 Anion Gap 4 L BUN 23 H Creatinine 1.0 Creat Clearance w eGFR 52.57 POC Glucometer Random Glucose 163 H Calcium 8.1 L Phosphorus 2.8 Magnesium 2.5 H Creatine Kinase Creatine Kinase Index CK-MB (CK-2) Troponin I 3.79 H* Active Medications Generic Name Dose Route Start Last Admin Trade Name Freq PRN Reason Stop Dose Admin Aspirin 81 mg 01/30/18 10:00 Asa - PO DAILY LEXI Atorvastatin Calcium 80 mg 01/30/18 22:00 Lipitor - PO HS LEXI Chlorhexidine Gluconate 1 applic 01/29/18 22:00 Hibiclens For Decolonization - TP HS LEXI Heparin Sodium (Porcine) 1,000 unit 01/29/18 10:01 Heparin - IVPUSH PRN PRN Heparin Heparin Sodium (Porcine) 5,000 unit 01/29/18 10:01 01/29/18 11:49 Heparin - IVPUSH 5,000 unit PRN PRN Administration Heparin Sodium Chloride 1,000 mls @ 42 mls/hr 01/29/18 04:28 01/29/18 10:09 1/2 Normal Saline IV 42 mls/hr ASDIR [facility]EXI Administration Heparin Sodium (Porcine) 25, 500 mls @ 20 mls/hr 01/29/18 10:15 01/29/18 11: 49 000 unit/ Sodium Chloride IV 1,000 unit/hr TITR LEXI 20 mls/hr Administration Protocol 1,000 UNIT/HR Levothyroxine Sodium 125 mcg 01/29/18 07:00 01/29/18 06:02 Synthroid - PO 125 mcg DAILY@0700 LEXI Administration Lisinopril 2.5 mg 01/29/18 12:30 01/29/18 13:11 Prinivil PO 2.5 mg DAILY LEXI Administration Metoclopramide HCl 10 mg 01/29/18 10:00 01/29/18 09:55 Reglan Injection - IVPUSH 10 mg BID [facility] Administration Metoprolol Tartrate 25 mg 01/29/18 12:30 01/29/18 13:11 Lopressor - PO 25 mg BID LEXI Administration Morphine Sulfate 2 mg 01/29/18 12:14 Morphine Sulfate IVPUSH Q4H PRN PAIN LEVEL 6-10 Mupirocin 1 applic 01/29/18 10:00 01/29/18 09:55 Bactroban Ointment (For Decolonization) - NS 02/03/18 09:59 1 applic BID [facility]EXI Administration Nitroglycerin 0.5 inch 01/29/18 12:00 01/29/18 11:51 Nitro-Bid 2% Paste - TD 0.5 inch Q6HPO [facility]I Administration Pantoprazole Sodium 40 mg 01/29/18 12:15 01/29/18 13:12 Protonix Iv IVPUSH 40 mg DAILY [facility] Administration Sulfacetamide Sodium 1 drop 01/29/18 11:45 Bleph-10 Ophthalmic Solution - OD Q3H [facility] ASSESSMENT/PLAN: 87 y/o woman PMHx Dementia, CAD, COPD, CHF, IDDM, Gastroparesis, Hypothyroidism , who presented with abdominal pain and coffee ground emesis and found to have GI bleed with hypotension. Patient was fluid resuscitated with good response and then transferred to med/surg. Patient then complaned of Midsternal chest pain and troponin was 5.18, concerning for NSTEMI. Patient readmitted back to ICU for further monitoring and management #Cardiovascular: 1)Acute NSTEMI -cardiology consult, pt not a candidate for cath. -Troponin downtrending 5.18...3.79 -No ST-T changes on EKG. trend troponin -Loading dose ASA of 325mg given in the AM -Continue Cardiac monitoring -Hold home BP meds to avoid hypotension -asa 81 qd, no need for plavix -metoprolol 25 bid -heparin gtt -Lipitor 80 -lisinopril 2.5 -nitropaste -morphine prn -O2 -monitor H/H -echocardiogram -lipid panel -A1c 2)A-fib, new? 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 -unlikely, FOBT neg, bloody emesis not observed and H/H has been relatively stable, vitals stable -dc protonix drip -protonix IVP -NPO -Monitor H/H -Continue IVFs D51/2NS@42ml/hr -Reglan, as per GI - monitor H/H # Endocrinology: Gastroparesis/IDDM/Hypothyroidism -BGMs -ISS -Continue home medication Synthroid #Renal GEOFF likely prerenal, resolved IVF monitor BMPs #COPD In no acute exacerbation duonebs prn #ID UA neg bcx, ucx neg #Neuro: Dementia Fall Precautions #FEN D51/2NS@42ml/hr Replete lytes prn choles/fat/ Na restricted diet #DVT ppx heparin gtt protonix IVP #Code Status: Full Code #Dispo: We will continue to follow the patient. Thank you for this consultative opportunity. ICU monitoring for NSTEMI, likely transfer mireya Visit type - Emergency Visit Emergency Visit: Yes ED Registration Date: 01/28/18 Care time: The patient presented to the Emergency Department on the above date and was hospitalized for further evaluation of their emergent condition. - New Patient This patient is new to me today: Yes Date on this admission: 01/29/18 - Critical Care Critical Care patient: Yes Total Critical Care Time (in minutes): 40 Critical Care Statement: The care of this patient involved high complexity decision making to prevent further life threatening deterioration of the patient 's condition and/or to evaluate & treat vital organ system(s) failure or risk of failure.
--- NOTE | 2018-01-29 15:06 | EKG ---
Test Reason : Blood Pressure : / mmHG Vent. Rate : 084 BPM Atrial Rate : 084 BPM P-R Int : 000 ms QRS Dur : 094 ms QT Int : 422 ms P-R-T Axes : 000 -28 102 degrees QTc Int : 498 ms SINUS RHYTHM WITH SINUS ARRHYTHMIA WITH 1ST DEGREE A-V BLOCK NONSPECIFIC ST AND T WAVE ABNORMALITY PROLONGED QT ABNORMAL ECG WHEN COMPARED WITH ECG OF 29-JAN-2018 03:36, T WAVE VARIATION Confirmed by CUCA MARQUEZ, SCOTTY ([id number]) on 01/29/2018 3:05:34 PM Referred By: JESICA COLLAZO DR Confirmed By:SCOTTY THURMAN MD
[2018-01-29] MEDS: SULFACETAMIDE SODIUM 10% OPHTHALMIC DROPS 15 ML BOTTLE OS SCH ×4 (15:12→23:20)
--- NOTE | 2018-01-29 16:21 | CON.CARD ---
Consult Consult Specialty:: Cardiology Referred by:: Dr. Barnett Reason for Consultation:: NSTEMI and paroxysmal afib - History of Present Illness Chief Complaint: Vomiting and chest pain. History of Present Illness: 87 year-old woman with a PMHx of HTN, DM, HLD, CAD, s/p BMS to pLAD, BILLIE to pRCA , then 2009, BILLIE to OM1 (at that time the LAD and RCA stents were patent, residual 80-90% dist LAD small vessel and severe/diffuse dz small diag in 2011, COPD, gastroparesis, hypothyroidism and dementia presented to the ED on 2017 with coffee ground emesis. The patient reportedly has been feeling weak, dizzy along with abdominal pain for the past week. Vomiting began 3 days prior to the admission. She had mid sternal pain and epigastic pain. Reported chest pain in ICU. Troponin is elevated (5.18 ->3.79) with normal CK (178). ECG shows sinus rhythm with high lateral I, aVL ST-T abnormalities when heart rate slow. Significant inferolateral ST-T ischemic changes noted when heart rate was in the 100s. Tele shows sinus with paroxysmal afib with rapid VR. CXR : increased central markings and left density. 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 2011 dobut MIBI: no STs ; moderate reversible defect anterior and lateral faith confounded by large breast shadow; nl EF -> pt didn't follow as outpt as planned (was on DATP for a little while). Echo 09/13: nl LVEF, nl RV, nl valve fxn), HTN, Hyperlipdemia Pulmonary: Yes: COPD Gastrointestinal: Yes: Constipation Endocrine: Yes: Diabetes Mellitus (insulin-dependent for years -> uncontrolled) , Hypothyroidism Dermatology: Yes: Cellulitis (in past, with chronic and intermittent edema) - Alcohol/Substance Use Hx Alcohol Use: No History of Substance Use: reports: None - Smoking History Smoking history: Never smoked Have you smoked in the past 12 months: No Aproximately how many cigarettes per day: 0 If you are a former smoker, when did you quit?: 1984 - Social History Usual Living Arrangement: With Spouse (who is on HD) ADL: Family Assistance History of Recent Travel: No Home Medications - Allergies Allergies/Adverse Reactions: Allergies Allergy/AdvReac Type Severity Reaction Status Date / Time vancomycin AdvReac Itching Verified 01/27/18 20:01 - Home Medications Home Medications: Ambulatory Orders Insulin Sliding Scale [Novolog Vial Sliding Scale -] 1 vial SQ ACHS units 03/16 Atorvastatin Ca [Lipitor] 40 mg PO HS 06/08/17 Ranitidine [Zantac -] 150 mg PO DAILY 06/08/17 Pantoprazole Sodium [Protonix -] 40 mg PO BID #60 tablet.ec 06/14/17 Potassium Chloride 20 meq PO DAILY #30 tablet.er 06/14/17 Furosemide [Lasix] 40 mg PO DAILY 10/08/17 Valsartan [Diovan] 160 mg PO DAILY 10/08/17 Acetaminophen [Tylenol .Regular Strength -] 650 mg PO Q4H PRN #20 tablet MDD 4 10/12/17 Levothyroxine [Synthroid -] 125 mcg PO DAILY@0700 #30 tablet MDD 1 10/12/17 Insulin Degludec [Tresiba Flextouch U-100] 20 unit SQ ACBK 01/28/18 Family Disease History - Family Disease History Family Disease History: Diabetes: Daughter Review of Systems - Review of Systems Constitutional: reports: Malaise, Weakness Eyes: reports: No Symptoms HENT: reports: No Symptoms Neck: reports: No Symptoms Cardiovascular: reports: Chest Pain Respiratory: reports: No Symptoms Gastrointestinal: reports: Abdominal Pain, Constipation, Vomiting Genitourinary: reports: No Symptoms Breasts: reports: No Symptoms Reported Integumentary: reports: No Symptoms Neurological: reports: No Symptoms Endocrine: reports: No Symptoms Hematology/Lymphatic: reports: No Symptoms Psychiatric: reports: No Symptoms Vital Signs: Vital Signs Temperature 98.5 F 01/29/18 16:00 Pulse Rate 68 01/29/18 16:00 Respiratory Rate 16 01/29/18 16:00 Blood Pressure 130/92 01/29/18 16:00 O2 Sat by Pulse Oximetry (%) 99 01/29/18 09:00 General: Well developed. Obese. No acute distress. Head: Normocephalic. Atraumatic, Eyes: PERRLA, EOMI. Sclerae anicteric. Conjunctivae clear. Neck: Supple. No JVD. No bruits. Heart: Normal S1, S2: Regular rhythm and rate. II/ SALV[place]OR. No gallop or rub. Lungs: Symmetrical air entry. Clear to auscultation. No crackles. No wheezing or rhonchi. Abdomen: Soft. Bowel sound positive. Non tender. No masses. Extremities: No edema. No clubbing or cyanosis. - Other Data Labs, Other Data: CBC, BMP 01/29/18 07:45 01/29/18 07:45 INR, PTT INR 1.08 (0.83-1.09) 01/29/18 08:00 Troponin, BNP 01/29/18 01/29/18 01:25 07:45 Troponin I 5.18 H* 3.79 H* Troponin, BNP 01/29/18 01/29/18 01:25 07:45 Troponin I 5.18 H* 3.79 H* Assessment/Plan 87 year-old woman with a PMHx of HTN, DM, HLD, CAD, s/p BMS to pLAD, BILLIE to pRCA , then 2009, BILLIE to OM1 (at that time the LAD and RCA stents were patent, residual 80-90% dist LAD small vessel and severe/diffuse dz small diag in 2011, COPD, gastroparesis, hypothyroidism and dementia presented to the ED on 2017 with coffee ground emesis with reported chest pain. Troponin is elevated (5.18 ->3.79) with normal CK (178). ECG shows sinus rhythm with high lateral I, aVL ST-T abnormalities when heart rate slow. Significant inferolateral ST-T ischemic changes noted when heart rate was in the 100s. Tele shows sinus with paroxysmal afib with rapid VR. CXR : increased central markings and left density. 1) CAD: s/p BMS to pLAD, BILLIE to pRCA, then 2009, BILLIE to OM1 (at that time the LAD and RCA stents were patent, residual 80-90% dist LAD small vessel and severe /diffuse dz small diag in 2011. Recurrent angina with evidence of of NSTEMI: possible demand ischemia due to rapid afib with underline CAD. Troponin is trending down now. Conservative cardiac care for now. Agree with IV heparin for 48 hours. Continue aspirin, atorvastatin. Increase metoprolol tartrate to 50 mg BID. Add Imdur 30 mg daily. May hold Lisinopril if BP getting lower. Echocardiogram for wall motion and systolic function. 2) Atrial fibrillation: paroxysmal atrial fibrillation of unknown duration. Increase metoprolol as above. Will consider amiodarone for rhythm control if frequent afib on tele. Continue IV heparin and switch it to Eliquis 2.5 mg BID in 48 hours. Monitor H+H GI follow up.
--- NOTE | 2018-01-29 16:41 | ECHO ---
Name: TRACY SENA Exam:Adult Echocardiogram Study Date: 01/29/2018 02:18 PM Age: 87 yrs Reason For Study: NSTEMI Height: 64 in Weight: 212 lb BSA: 2.0 m2 MMode/2D Measurements & Calculations IVSd: 4.4 cm Ao root diam: 2.5 cm LVIDd: 2.7 cm ACS: 1.4 cm LVIDs: 2.5 cm EDV(Teich): 26.5 ml LVOT diam: 2.0 cm ESV(Teich): 22.1 ml Doppler Measurements & Calculations MV E max alexy: 101.5 cm/sec MVA(VTI): 1.7 cm2 MV A max alexy: 167.3 cm/sec MV V2 max: 197.9 cm/sec MV E/A: 0.61 MV max P.7 mmHg MV dec time: 0.20 sec MV V2 mean: 130.1 cm/sec MV mean P.7 mmHg MV V2 VTI: 43.5 cm LV V1 max P.1 mmHg SV(LVOT): 72.9 ml LV V1 mean P.8 mmHg LV V1 max: 113.1 cm/sec LV V1 mean: 76.7 cm/sec LV V1 VTI: 24.3 cm TR max alexy: 224.4 cm/sec Lat Peak E' Alexy: 4.5 cm/sec TR max P.1 mmHg Lat E/e': 22.6 Procedure A complete two-dimensional transthoracic echocardiogram was performed (2D, M-mode, Doppler and color flow Doppler). Left Ventricle The left ventricle is normal in size. Left ventricular systolic function is normal. Ejection Fraction = 65- 70%. E/A reversal consistent with but not diagnostic of poor LV compliance. No regional wall motion abnormalities noted. Right Ventricle The right ventricle is normal size. The right ventricular systolic function is normal. RV systiolic T DI is 10 cm/s. Atria The left atrial size is normal. Right atrial size is normal. Mitral Valve There is mild to moderate mitral annular calcification. There is mild mitral valve thickening. There is no mitral regurgitation noted. Tricuspid Valve The tricuspid valve is normal in structure and function. There is mild tricuspid regurgitation. Aortic Valve There is mild to moderate aortic sclerosis.;. No aortic regurgitation is present. Pulmonic Valve The pulmonic valve is not well visualized. Great Vessels The aortic root is normal size. Pericardium/Pleura There is no pericardial effusion. Interpretation Summary The left ventricle is normal in size. Left ventricular systolic function is normal. No regional wall motion abnormalities noted. Ejection Fraction = 65-70%. E/A reversal consistent with but not diagnostic of poor LV compliance The right ventricular systolic function is normal. The left atrial size is normal. Right atrial size is normal. There is mild to moderate mitral annular calcification. There is mild mitral valve thickening. There is mild tricuspid regurgitation. There is mild to moderate aortic sclerosis. There is no pericardial effusion. Previous study is not available for comparison David Eli MD 01/29/2018 04:40 PM
--- NOTE | 2018-01-29 19:54 | PN ---
Progress Note, Physician Chief Complaint: abdominal pain improving has pelvic itching and burning right ear pain History of Present Illness: dm,htn ashd,chf,copd,cad,has pelvic pain and burning,constant pressure and discomfort vaginal area redness - Current Medication List Current Medications: Active Medications Aspirin (Asa -) 81 mg PO DAILY [facility] Atorvastatin Calcium (Lipitor -) 80 mg PO HS [facility] Chlorhexidine Gluconate (Hibiclens For Decolonization -) 1 applic TP HS [facility] Heparin Sodium (Porcine) (Heparin -) 1,000 unit IVPUSH PRN PRN PRN Reason: Heparin Heparin Sodium (Porcine) (Heparin -) 5,000 unit IVPUSH PRN PRN PRN Reason: Heparin Last Admin: 01/29/18 11:49 Dose: 5,000 unit Sodium Chloride (1/2 Normal Saline) 1,000 mls @ 42 mls/hr IV ASDIR [facility] Last Admin: 01/29/18 10:09 Dose: 42 mls/hr Heparin Sodium (Porcine) 25, (000 unit/ Sodium Chloride) 500 mls @ 20 mls/hr IV TITR [facility]; Protocol Last Admin: 01/29/18 11:49 Dose: 1,000 unit/hr, 20 mls/hr Levothyroxine Sodium (Synthroid -) 125 mcg PO DAILY@0700 [facility] Last Admin: 01/29/18 06:02 Dose: 125 mcg Lisinopril (Prinivil) 2.5 mg PO DAILY [facility] Last Admin: 01/29/18 13:11 Dose: 2.5 mg Metoclopramide HCl (Reglan Injection -) 10 mg IVPUSH BID [facility] Last Admin: 01/29/18 09:55 Dose: 10 mg Metoprolol Tartrate (Lopressor -) 25 mg PO BID [facility] Last Admin: 01/29/18 13:11 Dose: 25 mg Morphine Sulfate (Morphine Sulfate) 2 mg IVPUSH Q4H PRN PRN Reason: PAIN LEVEL 6-10 Mupirocin (Bactroban Ointment (For Decolonization) -) 1 applic NS BID [facility] Stop: 02/03/18 09:59 Last Admin: 01/29/18 09:55 Dose: 1 applic Nitroglycerin (Nitro-Bid 2% Paste -) 0.5 inch TD Q6HPO [facility] Last Admin: 01/29/18 17:04 Dose: 0.5 inch Pantoprazole Sodium (Protonix Iv) 40 mg IVPUSH DAILY [facility] Last Admin: 01/29/18 13:12 Dose: 40 mg Sulfacetamide Sodium (Bleph-10 Ophthalmic Solution -) 1 drop OS Q3H [facility] Last Admin: 01/29/18 17:04 Dose: 1 drop - Objective Vital Signs: Vital Signs Temperature 98.4 F 01/29/18 18:00 Pulse Rate 75 01/29/18 19:38 Respiratory Rate 16 01/29/18 19:38 Blood Pressure 104/59 L 01/29/18 19:38 O2 Sat by Pulse Oximetry (%) 99 01/29/18 17:18 Constitutional: Yes: Anxious Eyes: Yes: EOM Intact HENT: Yes: Normocephalic Neck: Yes: Trachea Midline Cardiovascular: Yes: Tachycardia, Murmur Respiratory: Yes: CTA Bilaterally Gastrointestinal: Yes: Normal Bowel Sounds ...Rectal Exam: Yes: Deferred Genitourinary: Yes: Polyuria, Vaginal Discharge Breast(s): Yes: WNL Musculoskeletal: Yes: Muscle Weakness Extremities: Yes: WNL Edema: No Neurological: Yes: Alert, Oriented Labs: CBC, BMP 01/29/18 07:45 01/29/18 07:45 INR, PTT INR 1.08 (0.83-1.09) 01/29/18 08:00 Problem List - Problems (1) Dehydration Code(s): E86.0 - DEHYDRATION (2) Diabetes mellitus, insulin dependent (IDDM), uncontrolled Code(s): E10.65 - TYPE 1 DIABETES MELLITUS WITH HYPERGLYCEMIA (3) GI (gastrointestinal bleed) Code(s): K92.2 - GASTROINTESTINAL HEMORRHAGE, UNSPECIFIED (4) Nausea & vomiting Code(s): R11.2 - NAUSEA WITH VOMITING, UNSPECIFIED (5) Acute renal failure Code(s): N17.9 - ACUTE KIDNEY FAILURE, UNSPECIFIED Qualifiers: Acute renal failure type: unspecified Qualified Code(s): N17.9 - Acute kidney failure, unspecified (6) Bakers cyst Code(s): M71.20 - SYNOVIAL CYST OF [place] [PETER], UNSPECIFIED KNEE Assessment/Plan Current Active Problems Chest mass (Acute) Dehydration (Acute) Diabetes (Acute) Diabetes mellitus, insulin dependent (IDDM), uncontrolled (Acute) GI (gastrointestinal bleed) (Acute) Nausea & vomiting (Acute) vaginal itching burning ro abscess hypothyroidism right ear auralgia Abnormal Lab Results 01/29/18 01/29/18 01/29/18 01:25 07:45 07:45 WBC 10.6 H PTT (Actin FS) Anion Gap 4 L BUN 23 H Random Glucose 163 H Calcium 8.1 L Magnesium 2.5 H CK-MB (CK-2) 5.6 H Troponin I 5.18 H* 3.79 H* 01/29/18 01/29/18 01/29/18 15:30 15:30 18:30 WBC PTT (Actin FS) 91.7 H Anion Gap BUN Random Glucose Calcium Magnesium CK-MB (CK-2) Troponin I 3.00 H* 3.11 H* Current Medications Generic Name Dose Route Start Last Admin Trade Name Freq PRN Reason Stop Dose Admin Aspirin 81 mg 01/30/18 10:00 Asa - PO DAILY [facility] Atorvastatin Calcium 80 mg 01/30/18 22:00 Lipitor - PO HS [facility] Chlorhexidine Gluconate 1 applic 01/29/18 22:00 Hibiclens For Decolonization - TP HS [facility] Heparin Sodium (Porcine) 1,000 unit 01/29/18 10:01 Heparin - IVPUSH PRN PRN Heparin Heparin Sodium (Porcine) 5,000 unit 01/29/18 10:01 01/29/18 11:49 Heparin - IVPUSH 5,000 unit PRN PRN Administration Heparin Sodium Chloride 1,000 mls @ 42 mls/hr 01/29/18 04:28 01/29/18 10:09 1/2 Normal Saline IV 42 mls/hr ASDIR [facility] Administration Heparin Sodium (Porcine) 25, 500 mls @ 20 mls/hr 01/29/18 10:15 01/29/18 11: 49 000 unit/ Sodium Chloride IV 1,000 unit/hr TITR [facility] 20 mls/hr Administration Protocol 1,000 UNIT/HR Levothyroxine Sodium 125 mcg 01/29/18 07:00 01/29/18 06:02 Synthroid - PO 125 mcg DAILY@0700 [facility] Administration Lisinopril 2.5 mg 01/29/18 12:30 01/29/18 13:11 Prinivil PO 2.5 mg DAILY [facility] Administration Metoclopramide HCl 10 mg 01/29/18 10:00 01/29/18 09:55 Reglan Injection - IVPUSH 10 mg BID [facility] Administration Metoprolol Tartrate 25 mg 01/29/18 12:30 01/29/18 13:11 Lopressor - PO 25 mg BID [facility] Administration Morphine Sulfate 2 mg 01/29/18 12:14 Morphine Sulfate IVPUSH Q4H PRN PAIN LEVEL 6-10 Mupirocin 1 applic 01/29/18 10:00 01/29/18 09:55 Bactroban Ointment (For Decolonization) - NS 02/03/18 09:59 1 applic BID [facility] Administration Nitroglycerin 0.5 inch 01/29/18 12:00 01/29/18 17:04 Nitro-Bid 2% Paste - TD 0.5 inch Q6HPO [facility] Administration Pantoprazole Sodium 40 mg 01/29/18 12:15 01/29/18 13:12 Protonix Iv IVPUSH 40 mg DAILY [facility] Administration Sulfacetamide Sodium 1 drop 01/29/18 14:19 01/29/18 17:04 Bleph-10 Ophthalmic Solution - OS 1 drop Q3H [facility] Administration plan: continue bgm qid novolog insulin doses investigations consultant evaluation ent consult right ear pain
[2018-01-29] MEDS ORDERED: CHLORHEXIDINE GLUCONATE 4% CLEANSER FOR DECOLONIZATION TP SCH (22:00)
[2018-01-29] MEDS: CHLORHEXIDINE GLUCONATE 4% CLEANSER FOR DECOLONIZATION TP SCH (22:12)
[2018-01-30] MEDS: NITROGLYCERIN 2% OINTMENT - 1GM PACKET TD SCH ×4 (00:11→18:03)
[2018-01-30] MEDS: SULFACETAMIDE SODIUM 10% OPHTHALMIC DROPS 15 ML BOTTLE OS SCH ×7 (02:35→21:06)
[2018-01-30] MEDS: HEPARIN - 25,000 UNIT in SODIUM CHLORIDE 495 ML IV SCH ×2 (04:32→15:00)
[2018-01-30] MEDS: SODIUM CHLORIDE 0.45% 1,000 ML IV SCH (05:38)
[2018-01-30] MEDS: LEVOTHYROXINE NA 125 MCG TABLET (FP) PO SCH (06:09)
[2018-01-30 08:24] LABS: ALBUMIN 2.5 g/dl (3.4-5.0); ALK PHOS 81 U/L (45-117); ANION GAP 7 MMOL/L (8-16); BILIRUBIN,TOTAL 1.9 mg/dL (0.2-1); BLOOD UREA NITROGEN 21 mg/dL (7-18); CHLORIDE 106 mmol/L (98-107); CHOLESTEROL 122 mg/dL (50-200); CO2 27 mmol/L (21-32); CREATININE 0.9 mg/dL (0.55-1.3); GLUCOSE,RANDOM 238 mg/dL (74-106); HDL CHOLESTEROL 38 mg/dL (40-60); MAGNESIUM 2.5 mg/dL (1.8-2.4); PHOSPHOROUS 2.9 mg/dL (2.5-4.9); POTASSIUM 4.5 mmol/L (3.5-5.1); SGOT/AST 28 U/L (15-37); SGPT/ALT 20 U/L (13-61); SODIUM 139 mmol/L (136-145); TOT PROT 5.4 g/dl (6.4-8.2); TRIGLYCERIDES 84 mg/dL (0-150)
--- NOTE | 2018-01-30 10:09 | PN ---
Progress Note, Physician - Current Medication List Current Medications: Active Medications Aspirin (Asa -) 81 mg PO DAILY [facility] Atorvastatin Calcium (Lipitor -) 80 mg PO HS [facility] Chlorhexidine Gluconate (Hibiclens For Decolonization -) 1 applic TP HS [facility] Last Admin: 01/29/18 22:12 Dose: Not Given Heparin Sodium (Porcine) (Heparin -) 1,000 unit IVPUSH PRN PRN PRN Reason: Heparin Heparin Sodium (Porcine) (Heparin -) 5,000 unit IVPUSH PRN PRN PRN Reason: Heparin Last Admin: 01/29/18 11:49 Dose: 5,000 unit Sodium Chloride (1/2 Normal Saline) 1,000 mls @ 42 mls/hr IV ASDIR [facility] Last Admin: 01/30/18 05:38 Dose: 42 mls/hr Heparin Sodium (Porcine) 25, (000 unit/ Sodium Chloride) 500 mls @ 20 mls/hr IV TITR [facility]; Protocol Last Admin: 01/30/18 04:32 Dose: 800 unit/hr, 16 mls/hr Levothyroxine Sodium (Synthroid -) 125 mcg PO DAILY@0700 [facility] Last Admin: 01/30/18 06:09 Dose: 125 mcg Lisinopril (Prinivil) 2.5 mg PO DAILY [facility] Last Admin: 01/29/18 13:11 Dose: 2.5 mg Metoclopramide HCl (Reglan Injection -) 10 mg IVPUSH BID [facility] Last Admin: 01/29/18 22:12 Dose: 10 mg Metoprolol Tartrate (Lopressor -) 25 mg PO BID [facility] Last Admin: 01/29/18 22:11 Dose: 25 mg Morphine Sulfate (Morphine Sulfate) 2 mg IVPUSH Q4H PRN PRN Reason: PAIN LEVEL 6-10 Mupirocin (Bactroban Ointment (For Decolonization) -) 1 applic NS BID [facility] Stop: 02/03/18 09:59 Last Admin: 01/29/18 22:39 Dose: Not Given Nitroglycerin (Nitro-Bid 2% Paste -) 0.5 inch TD Q6HPO [facility] Last Admin: 01/30/18 05:40 Dose: 0.5 inch Pantoprazole Sodium (Protonix Iv) 40 mg IVPUSH DAILY [facility] Last Admin: 01/29/18 13:12 Dose: 40 mg Sulfacetamide Sodium (Bleph-10 Ophthalmic Solution -) 1 drop OS Q3H [facility] Last Admin: 01/30/18 05:40 Dose: 1 drop - Objective Vital Signs: Vital Signs Temperature 98.4 F 01/30/18 05:30 Pulse Rate 84 01/30/18 05:30 Respiratory Rate 20 01/30/18 05:30 Blood Pressure 137/84 01/30/18 05:30 O2 Sat by Pulse Oximetry (%) 96 01/29/18 21:00 Labs: CBC, BMP 01/29/18 07:45 01/30/18 05:30 INR, PTT INR 1.08 (0.83-1.09) 01/29/18 08:00 Problem List - Problems (1) Nausea & vomiting Assessment/Plan: reglan upper GI series gi consult appreciate diet per gi Code(s): R11.2 - NAUSEA WITH VOMITING, UNSPECIFIED (2) Diabetes Assessment/Plan: bgm hba1c 8.9 endo Code(s): E11.9 - TYPE 2 DIABETES MELLITUS WITHOUT COMPLICATIONS (3) CAD (coronary artery disease) Assessment/Plan: icu monitoring trend troponin cardiology noted heparin drip nitropaste Code(s): I25.10 - ATHSCL HEART DISEASE OF [place] CORONARY ARTERY W/O ANG PCTRS (4) Chest pain Assessment/Plan: as above Code(s): R07.9 - CHEST PAIN, UNSPECIFIED (5) Eye inflammation Code(s): H57.8 - OTHER SPECIFIED DISORDERS OF EYE AND ADNEXA * DO NOT USE * (6) Pulmonary nodule Assessment/Plan: -ct of chest Code(s): R91.1 - SOLITARY PULMONARY NODULE (7) Sepsis Assessment/Plan: -monitor lactic acid wbc trending down id consult Code(s): A41.9 - SEPSIS, UNSPECIFIED ORGANISM Qualifiers: Sepsis type: sepsis due to unspecified organism Qualified Code(s): A41.9 - Sepsis, unspecified organism (8) Afib Assessment/Plan: -Heparin -Monitor rate Code(s): I48.91 - UNSPECIFIED ATRIAL FIBRILLATION
--- NOTE | 2018-01-30 10:21 | PN ---
Progress Note, Physician History of Present Illness: PULMONARY ALERT,FEELING BETTER,-SOB,-CP - Current Medication List Current Medications: Active Medications Aspirin (Asa -) 81 mg PO DAILY [facility] Atorvastatin Calcium (Lipitor -) 80 mg PO HS [facility] Chlorhexidine Gluconate (Hibiclens For Decolonization -) 1 applic TP HS [facility] Last Admin: 01/29/18 22:12 Dose: Not Given Heparin Sodium (Porcine) (Heparin -) 1,000 unit IVPUSH PRN PRN PRN Reason: Heparin Heparin Sodium (Porcine) (Heparin -) 5,000 unit IVPUSH PRN PRN PRN Reason: Heparin Last Admin: 01/29/18 11:49 Dose: 5,000 unit Sodium Chloride (1/2 Normal Saline) 1,000 mls @ 42 mls/hr IV ASDIR [facility] Last Admin: 01/30/18 05:38 Dose: 42 mls/hr Heparin Sodium (Porcine) 25, (000 unit/ Sodium Chloride) 500 mls @ 20 mls/hr IV TITR [facility]; Protocol Last Admin: 01/30/18 04:32 Dose: 800 unit/hr, 16 mls/hr Levothyroxine Sodium (Synthroid -) 125 mcg PO DAILY@0700 [facility] Last Admin: 01/30/18 06:09 Dose: 125 mcg Lisinopril (Prinivil) 2.5 mg PO DAILY [facility] Last Admin: 01/29/18 13:11 Dose: 2.5 mg Metoclopramide HCl (Reglan Injection -) 10 mg IVPUSH BID [facility] Last Admin: 01/29/18 22:12 Dose: 10 mg Metoprolol Tartrate (Lopressor -) 25 mg PO BID [facility] Last Admin: 01/29/18 22:11 Dose: 25 mg Morphine Sulfate (Morphine Sulfate) 2 mg IVPUSH Q4H PRN PRN Reason: PAIN LEVEL 6-10 Mupirocin (Bactroban Ointment (For Decolonization) -) 1 applic NS BID [facility] Stop: 02/03/18 09:59 Last Admin: 01/29/18 22:39 Dose: Not Given Nitroglycerin (Nitro-Bid 2% Paste -) 0.5 inch TD Q6HPO [facility] Last Admin: 01/30/18 05:40 Dose: 0.5 inch Pantoprazole Sodium (Protonix Iv) 40 mg IVPUSH DAILY [facility] Last Admin: 01/29/18 13:12 Dose: 40 mg Sulfacetamide Sodium (Bleph-10 Ophthalmic Solution -) 1 drop OS Q3H [facility] Last Admin: 01/30/18 05:40 Dose: 1 drop - Objective Vital Signs: Vital Signs Temperature 98.4 F 01/30/18 05:30 Pulse Rate 84 01/30/18 05:30 Respiratory Rate 20 01/30/18 05:30 Blood Pressure 137/84 01/30/18 05:30 O2 Sat by Pulse Oximetry (%) 96 01/29/18 21:00 Constitutional: Yes: Well Nourished, Calm Eyes: Yes: WNL HENT: Yes: WNL Neck: Yes: WNL Cardiovascular: Yes: Regular Rate and Rhythm, S1, S2 Respiratory: Yes: CTA Bilaterally Gastrointestinal: Yes: Normal Bowel Sounds, Soft Extremities: Yes: WNL Edema: No Labs: CBC, BMP 01/29/18 07:45 01/30/18 05:30 INR, PTT INR 1.08 (0.83-1.09) 01/29/18 08:00 Problem List - Problems (1) NSTEMI (non-ST elevated myocardial infarction) Code(s): I21.4 - NON-ST ELEVATION (NSTEMI) MYOCARDIAL INFARCTION (2) Nausea & vomiting Code(s): R11.2 - NAUSEA WITH VOMITING, UNSPECIFIED (3) CAD (coronary artery disease) Code(s): I25.10 - ATHSCL HEART DISEASE OF [place] CORONARY ARTERY W/O ANG PCTRS (4) Diabetes mellitus with peripheral vascular disease Code(s): E11.51 - TYPE 2 DIABETES W DIABETIC PERIPHERAL ANGIOPATH W/O GANGRENE (5) Gastroparesis Code(s): K31.84 - GASTROPARESIS (6) IBS (irritable bowel syndrome) Code(s): K58.9 - IRRITABLE BOWEL SYNDROME WITHOUT DIARRHEA (7) Nausea & vomiting Code(s): R11.2 - NAUSEA WITH VOMITING, UNSPECIFIED Qualifiers: Vomiting type: unspecified Vomiting Intractability: unspecified Qualified Code(s): R11.2 - Nausea with vomiting, unspecified (8) COPD (chronic obstructive pulmonary disease) Code(s): J44.9 - CHRONIC OBSTRUCTIVE PULMONARY DISEASE, UNSPECIFIED Assessment/Plan ASSESSMENT AND PLAN: Acute NSTEMI Nausea/Vomiting Gastroparesis CAD COPD DM Hypothyroidism Dementia - antiplatelets - anticoagulation - beta camille, statin - nitrates as needed - monitor H/H - PO as tolerated - protonix - DVT prophylaxis DR HAMILTON
[2018-01-30] MEDS: ASPIRIN 81 MG CHEWABLE TABLETS PO SCH (10:36)
[2018-01-30] MEDS: LISINOPRIL 5 MG TABLET (FP) PO SCH (10:37)
[2018-01-30] MEDS: PANTOPRAZOLE SODIUM 40 MG VIAL IVPUSH SCH (10:38)
[2018-01-30] MEDS: METOPROLOL TARTRATE 25 MG TABLET (FP) PO SCH ×2 (10:38→21:45)
[2018-01-30] MEDS: METOCLOPRAMIDE HCL INJECTION 10 MG/2 ML VIAL IVPUSH SCH ×2 (10:38→21:45)
--- NOTE | 2018-01-30 12:17 | CON.OBG ---
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 Was complaining of vulvar discort. 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 She reports constant vulvar itching which she has been scratching with no relief. Denies bleeding or vaginal discharge. 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 2011 dobut MIBI: no STs ; moderate reversible defect anterior and lateral faith confounded by large breast shadow; nl EF -> pt didn't follow as outpt as planned (was on DATP for a little while). Echo 09/13: nl LVEF, nl RV, nl valve fxn), HTN, Hyperlipdemia Pulmonary: Yes: COPD Gastrointestinal: Yes: Constipation ...: 5 ...Para: 4 Endocrine: Yes: Diabetes Mellitus (insulin-dependent for years -> uncontrolled) , Hypothyroidism Dermatology: Yes: Cellulitis (in past, with chronic and intermittent edema) - Past Surgical History Additional Surgical History: Multiple D and C for post menopausal bleeding with Endometrial hyperplasia, treated by Dr Donnell Wyatt, Cremator Oncologist medically. Considered poor risk for surgery. Leep 2001 Mild dysplasia - Alcohol/Substance Use Hx Alcohol Use: No History of Substance Use: reports: None - Smoking History Smoking history: Never smoked Have you smoked in the past 12 months: No Aproximately how many cigarettes per day: 0 If you are a former smoker, when did you quit?: 1984 - Social History Usual Living Arrangement: With Spouse (who is on HD) ADL: Family Assistance History of Recent Travel: No Home Medications - Allergies Allergies/Adverse Reactions: Allergies Allergy/AdvReac Type Severity Reaction Status Date / Time vancomycin AdvReac Itching Verified 01/27/18 20:01 - Home Medications Home Medications: Ambulatory Orders Insulin Sliding Scale [Novolog Vial Sliding Scale -] 1 vial SQ ACHS units 03/16 Atorvastatin Ca [Lipitor] 40 mg PO HS 06/08/17 Ranitidine [Zantac -] 150 mg PO DAILY 06/08/17 Pantoprazole Sodium [Protonix -] 40 mg PO BID #60 tablet.ec 06/14/17 Potassium Chloride 20 meq PO DAILY #30 tablet.er 06/14/17 Furosemide [Lasix] 40 mg PO DAILY 10/08/17 Valsartan [Diovan] 160 mg PO DAILY 10/08/17 Acetaminophen [Tylenol .Regular Strength -] 650 mg PO Q4H PRN #20 tablet MDD 4 10/12/17 Levothyroxine [Synthroid -] 125 mcg PO DAILY@0700 #30 tablet MDD 1 10/12/17 Insulin Degludec [Tresiba Flextouch U-100] 20 unit SQ ACBK 01/28/18 Family Disease History - Family Disease History Family Disease History: Diabetes: Daughter Physical Exam-WAREHOUSING TECHNICIAN Vital Signs: Vital Signs Temperature 98 F 01/30/18 10:00 Pulse Rate 79 01/30/18 10:00 Respiratory Rate 20 01/30/18 10:00 Blood Pressure 144/80 01/30/18 10:00 O2 Sat by Pulse Oximetry (%) 96 01/29/18 21:00 Constitutional: Yes: Obese Gastrointestinal: Yes: WNL, Soft, Abdomen, Obese Pelvis: Yes: WNL External Genitalia: Yes: Itching (Normal external labia with evidence of irritation from scratching, diffuse erythema, no lesions or ulcerations.) Uterus: Yes: Normal Adnexa: Not Palpable: Bilateral Labs: CBC, BMP 01/29/18 07:45 01/30/18 05:30 Assessment/Plan Menopause status Vulvovaginitis Diabetes Mellitus Plan: Genital Culture Monistat cream locally Monistat vaginal hs for 7 days\
--- NOTE | 2018-01-30 12:31 | PN ---
Progress Note, Physician History of Present Illness: seen and examined today in nad. lethargic but arousable. no new complaints. - Current Medication List Current Medications: Active Medications Aspirin (Asa -) 81 mg PO DAILY [facility] Last Admin: 01/30/18 10:36 Dose: 81 mg Atorvastatin Calcium (Lipitor -) 80 mg PO HS [facility] Chlorhexidine Gluconate (Hibiclens For Decolonization -) 1 applic TP HS [facility] Last Admin: 01/29/18 22:12 Dose: Not Given Clotrimazole (Lotrisone Cream (Small Tube)) 1 applic TP BID [facility] Heparin Sodium (Porcine) (Heparin -) 1,000 unit IVPUSH PRN PRN PRN Reason: Heparin Heparin Sodium (Porcine) (Heparin -) 5,000 unit IVPUSH PRN PRN PRN Reason: Heparin Last Admin: 01/29/18 11:49 Dose: 5,000 unit Sodium Chloride (1/2 Normal Saline) 1,000 mls @ 42 mls/hr IV ASDIR [facility] Last Admin: 01/30/18 05:38 Dose: 42 mls/hr Heparin Sodium (Porcine) 25, (000 unit/ Sodium Chloride) 500 mls @ 20 mls/hr IV TITR [facility]; Protocol Last Admin: 01/30/18 04:32 Dose: 800 unit/hr, 16 mls/hr Levothyroxine Sodium (Synthroid -) 125 mcg PO DAILY@0700 [facility] Last Admin: 01/30/18 06:09 Dose: 125 mcg Lisinopril (Prinivil) 2.5 mg PO DAILY [facility] Last Admin: 01/30/18 10:37 Dose: 2.5 mg Metoclopramide HCl (Reglan Injection -) 10 mg IVPUSH BID [facility] Last Admin: 01/30/18 10:38 Dose: 10 mg Metoprolol Tartrate (Lopressor -) 25 mg PO BID [facility] Last Admin: 01/30/18 10:38 Dose: 25 mg Morphine Sulfate (Morphine Sulfate) 2 mg IVPUSH Q4H PRN PRN Reason: PAIN LEVEL 6-10 Mupirocin (Bactroban Ointment (For Decolonization) -) 1 applic NS BID [facility] Stop: 02/03/18 09:59 Last Admin: 01/29/18 22:39 Dose: Not Given Nitroglycerin (Nitro-Bid 2% Paste -) 0.5 inch TD Q6HPO [facility] Last Admin: 01/30/18 05:40 Dose: 0.5 inch Pantoprazole Sodium (Protonix Iv) 40 mg IVPUSH DAILY [facility] Last Admin: 01/30/18 10:38 Dose: 40 mg Sulfacetamide Sodium (Bleph-10 Ophthalmic Solution -) 1 drop OS Q3H [facility] Last Admin: 01/30/18 10:36 Dose: 1 drop - Objective Vital Signs: Vital Signs Temperature 98 F 01/30/18 10:00 Pulse Rate 79 01/30/18 10:00 Respiratory Rate 20 01/30/18 10:00 Blood Pressure 144/80 01/30/18 10:00 O2 Sat by Pulse Oximetry (%) 96 01/29/18 21:00 Constitutional: Yes: No Distress, Calm, Obese Eyes: Yes: Conjunctiva Clear HENT: Yes: Atraumatic Neck: Yes: Supple Cardiovascular: Yes: Regular Rate and Rhythm, S1, S2. No: Bradycardia, Tachycardia, Pulse Irregular, Bruit, JVD, Gallop, Murmur, Rub, S3, S4, Varicosities Respiratory: Yes: Regular, Diminished. No: Rales, Rhonchi, SOB, Wheezes Gastrointestinal: Yes: Normal Bowel Sounds, Soft Edema: No Peripheral Pulses WNL: Yes Neurological: Yes: Lethargy. No: Alert Psychiatric: No: Alert Labs: CBC, BMP 01/29/18 07:45 01/30/18 05:30 INR, PTT INR 1.08 (0.83-1.09) 01/29/18 08:00 - ....Imaging Chest X-ray: Report Reviewed, Image Reviewed EKG: Report Reviewed, Image Reviewed Other: Report Reviewed, Image Reviewed (tele-nsr, pvcs) Assessment/Plan 87 year-old woman with a PMHx of HTN, DM, HLD, CAD, s/p BMS to pLAD, BILLIE to pRCA , then 2010, BILLIE to OM1 (at that time the LAD and RCA stents were patent, residual 80-90% dist LAD small vessel and severe/diffuse dz small diag in 2011, COPD, gastroparesis, hypothyroidism and dementia presented to the ED on 2017 with coffee ground emesis with reported chest pain. Troponin is elevated (5.18 ->3.79) with normal CK (178). ECG shows sinus rhythm with high lateral I, aVL ST-T abnormalities when heart rate slow. Significant inferolateral ST-T ischemic changes noted when heart rate was in the 100s. Tele shows sinus with paroxysmal afib with rapid VR. CXR : increased central markings and left density. 1) CAD: s/p BMS to pLAD, BILLIE to pRCA, then 2010, BILLIE to OM1 (at that time the LAD and RCA stents were patent, residual 80-90% dist LAD small vessel and severe /diffuse dz small diag in 2011. Recurrent angina with evidence of of NSTEMI: possible demand ischemia due to rapid afib with underline CAD. Troponin is trending down now. Conservative cardiac care for now. Complete IV heparin for 48 hours. Continue aspirin, atorvastatin. Increase metoprolol tartrate to 50 mg BID as long as BP tolerates Add Imdur 30 mg daily. May hold Lisinopril if BP getting lower. Echocardiogram 01/29/18 showed normal LV systolic function, mild valvular abnl -would not pursue invasive work up at this time 2) Atrial fibrillation: paroxysmal atrial fibrillation of unknown duration. currently NSR Increase metoprolol as above. Continue IV heparin and switch it to Eliquis 2.5 mg BID in 48 hours. Monitor H+H GI follow up. cont tele monitoring
[2018-01-30] MEDS: CLOTRIMAZOLE/BETAMET DIPROP 15 GM TUBE TP SCH ×2 (14:00→21:48)
[2018-01-30] MEDS: MUPIROCIN 2% TOPICAL OINTMENT FOR DECOLONIZATION NS SCH ×2 (15:42→21:44)
--- NOTE | 2018-01-30 17:12 | CON.ID ---
Consult Consult Specialty:: infectious disease Referred by:: dr huitron Reason for Consultation:: elevated lactic acid, leukocytosis - History of Present Illness Chief Complaint: vomiting- coffee grounds History of Present Illness: admitted 01/27 to ICU for possible gi bleed stool occult blood was negative hgb stable vomiting resolved and she was transferred to floor feels well now no complains no abdominal pain no vomiting +roland seen by gynecology- vulvovaginitis- julito seen by cardiology for afib and elevated troponins - History Source History Provided By: Patient, Family Member, Medical Record - 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 2011 dobut MIBI: no STs ; moderate reversible defect anterior and lateral faith confounded by large breast shadow; nl EF -> pt didn't follow as outpt as planned (was on DATP for a little while). Echo 09/13: nl LVEF, nl RV, nl valve fxn), HTN, Hyperlipdemia Pulmonary: Yes: COPD Gastrointestinal: Yes: Constipation Endocrine: Yes: Diabetes Mellitus (insulin-dependent for years -> uncontrolled) , Hypothyroidism Dermatology: Yes: Cellulitis (in past, with chronic and intermittent edema) - Past Surgical History Additional Surgical History: Multiple D and C for post menopausal bleeding with Endometrial hyperplasia, treated by Dr Donnell Wyatt, [employer] Coach Oncologist medically. Considered poor risk for surgery. Leep 2000 Mild dysplasia - Alcohol/Substance Use Hx Alcohol Use: No History of Substance Use: reports: None - Smoking History Smoking history: Never smoked Have you smoked in the past 12 months: No Aproximately how many cigarettes per day: 0 If you are a former smoker, when did you quit?: 1984 - Social History Usual Living Arrangement: With Spouse (who is on HD) ADL: Family Assistance History of Recent Travel: No Home Medications - Allergies Allergies/Adverse Reactions: Allergies Allergy/AdvReac Type Severity Reaction Status Date / Time vancomycin AdvReac Itching Verified 01/27/18 20:01 - Home Medications Home Medications: Ambulatory Orders Insulin Sliding Scale [Novolog Vial Sliding Scale -] 1 vial SQ ACHS units 12/14 /17 Atorvastatin Ca [Lipitor] 40 mg PO HS 06/08/17 Ranitidine [Zantac -] 150 mg PO DAILY 06/08/17 Pantoprazole Sodium [Protonix -] 40 mg PO BID #60 tablet.ec 06/14/17 Potassium Chloride 20 meq PO DAILY #30 tablet.er 06/14/17 Furosemide [Lasix] 40 mg PO DAILY 10/08/17 Valsartan [Diovan] 160 mg PO DAILY 10/08/17 Acetaminophen [Tylenol .Regular Strength -] 650 mg PO Q4H PRN #20 tablet MDD 4 10/12/17 Levothyroxine [Synthroid -] 125 mcg PO DAILY@0700 #30 tablet MDD 1 10/12/17 Insulin Degludec [Tresiba Flextouch U-100] 20 unit SQ ACBK 01/28/18 Family Disease History - Family Disease History Family Disease History: Diabetes: Daughter Review of Systems - Review of Systems Constitutional: reports: No Symptoms. denies: Chills, Diaphoresis, Fever Eyes: reports: No Symptoms HENT: reports: No Symptoms Neck: reports: No Symptoms Cardiovascular: denies: Chest Pain Respiratory: denies: Cough Gastrointestinal: denies: Abdominal Pain Genitourinary: reports: No Symptoms, Other (vaginal itching). denies: Burning Musculoskeletal: reports: No Symptoms Physical Exam Vital Signs: Vital Signs Temperature 97.8 F 01/30/18 14:00 Pulse Rate 71 01/30/18 14:00 Respiratory Rate 20 01/30/18 14:00 Blood Pressure 95/71 01/30/18 14:00 O2 Sat by Pulse Oximetry (%) 96 01/30/18 09:00 Constitutional: Yes: Well Nourished, No Distress, Calm Eyes: Yes: Conjunctiva Clear HENT: Yes: Atraumatic, Normocephalic Neck: Yes: Supple, Trachea Midline Cardiovascular: Yes: Pulse Irregular, S1, S2 Respiratory: Yes: Regular, CTA Bilaterally Gastrointestinal: Yes: Normal Bowel Sounds, Soft. No: Tenderness, Epigastrium, Tenderness, Rebound ...Rectal Exam: Yes: Deferred Extremities: Yes: WNL Edema: No Labs: CBC, BMP 01/29/18 07:45 01/30/18 05:30 Microbiology 01/30/18 12:30 Vaginal Gram Stain - Final 01/27/18 22:52 Blood - Peripheral Venous Blood Culture - Preliminary NO GROWTH OBTAINED AFTER 48 HOURS, INCUBATION TO CONTINUE FOR 3 DAYS. 01/27/18 22:52 Blood - Peripheral Venous Blood Culture - Preliminary NO GROWTH OBTAINED AFTER 48 HOURS, INCUBATION TO CONTINUE FOR 3 DAYS. 01/28/18 01:13 Urine - Urine Clean Catch Urine Culture - Final NO GROWTH OBTAINED Imaging - Results Cat Scan: Report Reviewed (s/p choly, 1.3 cm lung nodule sigmoid diverticulosis) Problem List - Problems (1) Leukocytosis Code(s): D72.829 - ELEVATED WHITE BLOOD CELL COUNT, UNSPECIFIED Qualifiers: Leukocytosis type: unspecified Qualified Code(s): D72.829 - Elevated white blood cell count, unspecified (2) Lactic acidosis Code(s): E87.2 - ACIDOSIS (3) Pulmonary nodule Code(s): R91.1 - SOLITARY PULMONARY NODULE Assessment/Plan doing well leukocytosis and lactic acidosis have resolved with resolution of the vomiting evaluation of the lung nodule in progress would d/c roland catheter please call back if needed
--- NOTE | 2018-01-30 20:10 | PN ---
GI Progress Note Subjective: no nausea, vomiting and melena,pt and family refuse UGIS - Objective Vital Signs: Vital Signs Temperature 98.2 F 01/30/18 17:00 Pulse Rate 69 01/30/18 17:00 Respiratory Rate 18 01/30/18 17:00 Blood Pressure 140/65 01/30/18 17:00 O2 Sat by Pulse Oximetry (%) 96 01/30/18 09:00 Constitutional: Obese Eyes: Yes: Conjunctiva Clear HENT: Yes: Atraumatic Neck: Yes: Supple Respiratory: Yes: CTA Bilaterally ...Palpate: Yes: Soft. No: Firm/Rigid, Guarding, Hepatomegaly, Mass, Pulsatile Mass Labs: CBC, BMP 01/29/18 07:45 01/30/18 05:30 INR, PTT INR 1.08 (0.83-1.09) 01/29/18 08:00 Problem List - Problems (1) GI (gastrointestinal bleed) Assessment/Plan: resolved R> maintain on Protonix 40mg daily Reglan 5mg 30 min ac Code(s): K92.2 - GASTROINTESTINAL HEMORRHAGE, UNSPECIFIED
[2018-01-30] MEDS: CHLORHEXIDINE GLUCONATE 4% CLEANSER FOR DECOLONIZATION TP SCH (21:44)
[2018-01-30] MEDS: ATORVASTATIN CA 80 MG TABLET (FP) PO SCH (21:45)
[2018-01-30] MEDS: MICONAZOLE NITRATE 2% VAGINAL CREAM 45 GM TUBE VG SCH (21:46)
[2018-01-31] MEDS: SULFACETAMIDE SODIUM 10% OPHTHALMIC DROPS 15 ML BOTTLE OS SCH ×9 (00:54→23:46)
[2018-01-31] MEDS: NITROGLYCERIN 2% OINTMENT - 1GM PACKET TD SCH ×4 (00:54→18:44)
[2018-01-31] MEDS: SODIUM CHLORIDE 0.45% 1,000 ML IV SCH (05:35)
[2018-01-31] MEDS: LEVOTHYROXINE NA 125 MCG TABLET (FP) PO SCH (06:03)
[2018-01-31 07:40] LABS: HEMATOCRIT 35.2 % (32.4-45.2); HEMOGLOBIN 11.5 GM/dL (10.7-15.3); MCH 30.1 pg (25.7-33.7); MCHC 32.8 g/dl (32.0-36.0); MEAN CELL VOLUME 91.7 fl (80-96); MEAN PLT VOLUME 9.8 fl (7.5-11.1); PLATELET COUNT 140 K/MM3 (134-434); RBC 3.83 M/mm3 (3.60-5.2); RDW 12.9 % (11.6-15.6); WHITE BLOOD COUNT 7.2 K/mm3 (4.0-10.0)
[2018-01-31] MEDS: ASPIRIN 81 MG CHEWABLE TABLETS PO SCH (09:51)
[2018-01-31] MEDS: METOCLOPRAMIDE HCL INJECTION 10 MG/2 ML VIAL IVPUSH SCH (09:51)
[2018-01-31] MEDS: PANTOPRAZOLE SODIUM 40 MG VIAL IVPUSH SCH (09:51)
[2018-01-31] MEDS: LISINOPRIL 5 MG TABLET (FP) PO SCH (09:55)
[2018-01-31] MEDS: METOPROLOL TARTRATE 25 MG TABLET (FP) PO SCH ×2 (09:56→21:28)
[2018-01-31] MEDS: MUPIROCIN 2% TOPICAL OINTMENT FOR DECOLONIZATION NS SCH ×2 (09:56→21:25)
[2018-01-31] MEDS: CLOTRIMAZOLE/BETAMET DIPROP 15 GM TUBE TP SCH ×2 (09:56→21:32)
[2018-01-31] MEDS: HEPARIN - 25,000 UNIT in SODIUM CHLORIDE 495 ML IV SCH (09:59)
--- NOTE | 2018-01-31 10:52 | PN ---
Progress Note, Physician History of Present Illness: pulmonary alert,no distress,-cp,-sob - Current Medication List Current Medications: Active Medications Aspirin (Asa -) 81 mg PO DAILY [facility] Last Admin: 01/31/18 09:51 Dose: 81 mg Atorvastatin Calcium (Lipitor -) 80 mg PO HS [facility] Last Admin: 01/30/18 21:45 Dose: 80 mg Chlorhexidine Gluconate (Hibiclens For Decolonization -) 1 applic TP HS [facility] Last Admin: 01/30/18 21:44 Dose: Not Given Clotrimazole (Lotrisone Cream (Small Tube)) 1 applic TP BID [facility] Last Admin: 01/31/18 09:56 Dose: 1 applic Heparin Sodium (Porcine) (Heparin -) 1,000 unit IVPUSH PRN PRN PRN Reason: Heparin Last Admin: 01/31/18 10:00 Dose: 1,000 unit Heparin Sodium (Porcine) (Heparin -) 5,000 unit IVPUSH PRN PRN PRN Reason: Heparin Last Admin: 01/29/18 11:49 Dose: 5,000 unit Sodium Chloride (1/2 Normal Saline) 1,000 mls @ 42 mls/hr IV ASDIR [facility] Last Admin: 01/31/18 05:35 Dose: 42 mls/hr Heparin Sodium (Porcine) 25, (000 unit/ Sodium Chloride) 500 mls @ 20 mls/hr IV TITR [facility]; Protocol Last Admin: 01/31/18 09:59 Dose: 750 unit/hr, 15 mls/hr Levothyroxine Sodium (Synthroid -) 125 mcg PO DAILY@0700 [facility] Last Admin: 01/31/18 06:03 Dose: 125 mcg Lisinopril (Prinivil) 2.5 mg PO DAILY [facility] Last Admin: 01/31/18 09:55 Dose: 2.5 mg Metoclopramide HCl (Reglan Injection -) 10 mg IVPUSH BID [facility] Last Admin: 01/31/18 09:51 Dose: 10 mg Metoprolol Tartrate (Lopressor -) 25 mg PO BID [facility] Last Admin: 01/31/18 09:56 Dose: 25 mg Miconazole Nitrate (Monistat-7 Vaginal Cream -) 1 applic VG HS [facility] Stop: 02/05/18 22:01 Last Admin: 01/30/18 21:46 Dose: 1 applic Morphine Sulfate (Morphine Sulfate) 2 mg IVPUSH Q4H PRN PRN Reason: PAIN LEVEL 6-10 Mupirocin (Bactroban Ointment (For Decolonization) -) 1 applic NS BID [facility] Stop: 02/03/18 09:59 Last Admin: 01/31/18 09:56 Dose: Not Given Nitroglycerin (Nitro-Bid 2% Paste -) 0.5 inch TD Q6HPO [facility] Last Admin: 01/31/18 06:02 Dose: 0.5 inch Pantoprazole Sodium (Protonix Iv) 40 mg IVPUSH DAILY [facility] Last Admin: 01/31/18 09:51 Dose: 40 mg Sulfacetamide Sodium (Bleph-10 Ophthalmic Solution -) 1 drop OS Q3H [facility] Last Admin: 01/31/18 08:20 Dose: 1 drop - Objective Vital Signs: Vital Signs Temperature 97.8 F 01/31/18 09:58 Pulse Rate 65 01/31/18 09:58 Respiratory Rate 20 01/31/18 09:58 Blood Pressure 139/73 01/31/18 09:58 O2 Sat by Pulse Oximetry (%) 97 01/30/18 21:00 Constitutional: Yes: Well Nourished, Calm Eyes: Yes: WNL HENT: Yes: WNL Neck: Yes: WNL Cardiovascular: Yes: Regular Rate and Rhythm, S1, S2 Respiratory: Yes: Rales (bibasilar rales) Gastrointestinal: Yes: Normal Bowel Sounds, Soft Extremities: Yes: WNL Edema: No Labs: CBC, BMP 01/31/18 06:30 Problem List - Problems (1) NSTEMI (non-ST elevated myocardial infarction) Code(s): I21.4 - NON-ST ELEVATION (NSTEMI) MYOCARDIAL INFARCTION (2) Nausea & vomiting Code(s): R11.2 - NAUSEA WITH VOMITING, UNSPECIFIED (3) CAD (coronary artery disease) Code(s): I25.10 - ATHSCL HEART DISEASE OF [place] CORONARY ARTERY W/O ANG PCTRS (4) Diabetes mellitus with peripheral vascular disease Code(s): E11.51 - TYPE 2 DIABETES W DIABETIC PERIPHERAL ANGIOPATH W/O GANGRENE (5) Gastroparesis Code(s): K31.84 - GASTROPARESIS (6) IBS (irritable bowel syndrome) Code(s): K58.9 - IRRITABLE BOWEL SYNDROME WITHOUT DIARRHEA (7) Nausea & vomiting Code(s): R11.2 - NAUSEA WITH VOMITING, UNSPECIFIED Qualifiers: Vomiting type: unspecified Vomiting Intractability: unspecified Qualified Code(s): R11.2 - Nausea with vomiting, unspecified (8) COPD (chronic obstructive pulmonary disease) Code(s): J44.9 - CHRONIC OBSTRUCTIVE PULMONARY DISEASE, UNSPECIFIED Assessment/Plan ASSESSMENT AND PLAN: Acute NSTEMI Nausea/Vomiting resolved Gastroparesis CAD COPD DM Hypothyroidism Dementia - antiplatelets - anticoagulation - beta camille, statin - nitrates as needed - monitor H/H - PO as tolerated - protonix - DVT prophylaxis DR HAMILTON
--- NOTE | 2018-01-31 14:52 | PN ---
Progress Note, Physician History of Present Illness: seen and examined today in nad. more awake and alert. eating a hamburger. states she is feeling better. no overnight events. no new complaints. - Current Medication List Current Medications: Active Medications Aspirin (Asa -) 81 mg PO DAILY [facility] Last Admin: 01/31/18 09:51 Dose: 81 mg Atorvastatin Calcium (Lipitor -) 80 mg PO HS [facility] Last Admin: 01/30/18 21:45 Dose: 80 mg Chlorhexidine Gluconate (Hibiclens For Decolonization -) 1 applic TP HS [facility] Last Admin: 01/30/18 21:44 Dose: Not Given Clotrimazole (Lotrisone Cream (Small Tube)) 1 applic TP BID [facility] Last Admin: 01/31/18 09:56 Dose: 1 applic Heparin Sodium (Porcine) (Heparin -) 1,000 unit IVPUSH PRN PRN PRN Reason: Heparin Last Admin: 01/31/18 10:00 Dose: 1,000 unit Heparin Sodium (Porcine) (Heparin -) 5,000 unit IVPUSH PRN PRN PRN Reason: Heparin Last Admin: 01/29/18 11:49 Dose: 5,000 unit Sodium Chloride (1/2 Normal Saline) 1,000 mls @ 42 mls/hr IV ASDIR [facility] Last Admin: 01/31/18 05:35 Dose: 42 mls/hr Heparin Sodium (Porcine) 25, (000 unit/ Sodium Chloride) 500 mls @ 20 mls/hr IV TITR [facility]; Protocol Last Admin: 01/31/18 09:59 Dose: 750 unit/hr, 15 mls/hr Insulin Aspart (Novolog Vial Sliding Scale -) 1 vial SQ TIDAC [facility]; Protocol Levothyroxine Sodium (Synthroid -) 125 mcg PO DAILY@0700 [facility] Last Admin: 01/31/18 06:03 Dose: 125 mcg Lisinopril (Prinivil) 2.5 mg PO DAILY [facility] Last Admin: 01/31/18 09:55 Dose: 2.5 mg Metoclopramide HCl (Reglan Injection -) 10 mg IVPUSH BID [facility] Last Admin: 01/31/18 09:51 Dose: 10 mg Metoprolol Tartrate (Lopressor -) 25 mg PO BID [facility] Last Admin: 01/31/18 09:56 Dose: 25 mg Miconazole Nitrate (Monistat-7 Vaginal Cream -) 1 applic VG HS [facility] Stop: 02/05/18 22:01 Last Admin: 01/30/18 21:46 Dose: 1 applic Morphine Sulfate (Morphine Sulfate) 2 mg IVPUSH Q4H PRN PRN Reason: PAIN LEVEL 6-10 Mupirocin (Bactroban Ointment (For Decolonization) -) 1 applic NS BID [facility] Stop: 02/03/18 09:59 Last Admin: 01/31/18 09:56 Dose: Not Given Nitroglycerin (Nitro-Bid 2% Paste -) 0.5 inch TD Q6HPO [facility] Last Admin: 01/31/18 06:02 Dose: 0.5 inch Nystatin (Mycostatin Ointment -) 1 applic TP BID [facility] Pantoprazole Sodium (Protonix Iv) 40 mg IVPUSH DAILY [facility] Last Admin: 01/31/18 09:51 Dose: 40 mg Sitagliptin Phosphate (Januvia -) 100 mg PO DAILY@0700 [facility] Sulfacetamide Sodium (Bleph-10 Ophthalmic Solution -) 1 drop OS Q3H [facility] Last Admin: 01/31/18 11:15 Dose: 1 drop - Objective Vital Signs: Vital Signs Temperature 97.8 F 01/31/18 09:58 Pulse Rate 65 01/31/18 09:58 Respiratory Rate 20 01/31/18 09:58 Blood Pressure 139/73 01/31/18 09:58 O2 Sat by Pulse Oximetry (%) 97 01/30/18 21:00 Constitutional: Yes: No Distress, Calm, Obese Eyes: Yes: Conjunctiva Clear, EOM Intact HENT: Yes: Atraumatic, Normocephalic Neck: Yes: Supple, Trachea Midline Cardiovascular: Yes: Regular Rate and Rhythm, S1, S2. No: Bradycardia, Tachycardia, Pulse Irregular, Bruit, JVD, Gallop, Murmur, Rub, S3, S4, Varicosities Respiratory: Yes: Regular, Diminished. No: Rales, Rhonchi, SOB, Wheezes Gastrointestinal: Yes: Normal Bowel Sounds, Soft. No: Distention, Tenderness Extremities: Yes: WNL Edema: Yes Edema: LLE: Trace, RLE: Trace Peripheral Pulses WNL: Yes Neurological: Yes: Alert Psychiatric: Yes: Alert Labs: CBC, BMP 01/31/18 06:30 01/30/18 05:30 INR, PTT INR 1.08 (0.83-1.09) 01/29/18 08:00 - ....Imaging Chest X-ray: Report Reviewed, Image Reviewed EKG: Report Reviewed, Image Reviewed Other: Report Reviewed, Image Reviewed (tele-nsr, pvcs) Assessment/Plan 87 year-old woman with a PMHx of HTN, DM, HLD, CAD, s/p BMS to pLAD, BILLIE to pRCA , then 2009, BILLIE to OM1 (at that time the LAD and RCA stents were patent, residual 80-90% dist LAD small vessel and severe/diffuse dz small diag in 2011, COPD, gastroparesis, hypothyroidism and dementia presented to the ED on 2017 with coffee ground emesis with reported chest pain. Troponin is elevated (5.18 ->3.79) with normal CK (178). ECG shows sinus rhythm with high lateral I, aVL ST-T abnormalities when heart rate slow. Significant inferolateral ST-T ischemic changes noted when heart rate was in the 100s. Tele shows sinus with paroxysmal afib with rapid VR. CXR : increased central markings and left density. 1) CAD: s/p BMS to pLAD, BILLIE to pRCA, then 2010, BILLIE to OM1 (at that time the LAD and RCA stents were patent, residual 80-90% dist LAD small vessel and severe /diffuse dz small diag in 2011. Recurrent angina with evidence of of NSTEMI: possible demand ischemia due to rapid afib with underline CAD. Troponin trended down Conservative cardiac care for now. Can stop Heparin gtt and change to DVT ppx dose Continue aspirin, atorvastatin. Increase metoprolol tartrate to 50 mg BID as long as BP tolerates Add Imdur 30 mg daily. May hold Lisinopril if BP getting lower. Echocardiogram 01/29/18 showed normal LV systolic function, mild valvular abnl -would not pursue invasive work up at this time 2) Atrial fibrillation: paroxysmal atrial fibrillation of unknown duration. currently NSR Increase metoprolol as above. CAn change IV heparin to Eliquis 2.5 mg BID if safe from a GI standpoint Monitor H+H Ok to dc tele No other additional inpatient cardiac work up planned at this time.
--- NOTE | 2018-01-31 15:02 | PN ---
Progress Note, Physician Chief Complaint: GI bleed History of Present Illness: NAD family at bedside On heparin drip Seen by cardiology for NSTEMI Family wants conservative measures refused UGIS H/H stable - Current Medication List Current Medications: Active Medications Aspirin (Asa -) 81 mg PO DAILY [facility] Last Admin: 01/31/18 09:51 Dose: 81 mg Atorvastatin Calcium (Lipitor -) 80 mg PO HS [facility] Last Admin: 01/30/18 21:45 Dose: 80 mg Chlorhexidine Gluconate (Hibiclens For Decolonization -) 1 applic TP HS [facility] Last Admin: 01/30/18 21:44 Dose: Not Given Clotrimazole (Lotrisone Cream (Small Tube)) 1 applic TP BID [facility] Last Admin: 01/31/18 09:56 Dose: 1 applic Heparin Sodium (Porcine) (Heparin -) 1,000 unit IVPUSH PRN PRN PRN Reason: Heparin Last Admin: 01/31/18 10:00 Dose: 1,000 unit Heparin Sodium (Porcine) (Heparin -) 5,000 unit IVPUSH PRN PRN PRN Reason: Heparin Last Admin: 01/29/18 11:49 Dose: 5,000 unit Sodium Chloride (1/2 Normal Saline) 1,000 mls @ 42 mls/hr IV ASDIR [facility] Last Admin: 01/31/18 05:35 Dose: 42 mls/hr Heparin Sodium (Porcine) 25, (000 unit/ Sodium Chloride) 500 mls @ 20 mls/hr IV TITR [facility]; Protocol Last Admin: 01/31/18 09:59 Dose: 750 unit/hr, 15 mls/hr Insulin Aspart (Novolog Vial Sliding Scale -) 1 vial SQ TIDAC [facility]; Protocol Levothyroxine Sodium (Synthroid -) 125 mcg PO DAILY@0700 [facility] Last Admin: 01/31/18 06:03 Dose: 125 mcg Lisinopril (Prinivil) 2.5 mg PO DAILY [facility] Last Admin: 01/31/18 09:55 Dose: 2.5 mg Metoclopramide HCl (Reglan Injection -) 10 mg IVPUSH BID [facility] Last Admin: 01/31/18 09:51 Dose: 10 mg Metoprolol Tartrate (Lopressor -) 25 mg PO BID [facility] Last Admin: 01/31/18 09:56 Dose: 25 mg Miconazole Nitrate (Monistat-7 Vaginal Cream -) 1 applic VG HS [facility] Stop: 02/05/18 22:01 Last Admin: 01/30/18 21:46 Dose: 1 applic Morphine Sulfate (Morphine Sulfate) 2 mg IVPUSH Q4H PRN PRN Reason: PAIN LEVEL 6-10 Mupirocin (Bactroban Ointment (For Decolonization) -) 1 applic NS BID [facility] Stop: 02/03/18 09:59 Last Admin: 01/31/18 09:56 Dose: Not Given Nitroglycerin (Nitro-Bid 2% Paste -) 0.5 inch TD Q6HPO [facility] Last Admin: 01/31/18 06:02 Dose: 0.5 inch Nystatin (Mycostatin Ointment -) 1 applic TP BID [facility] Pantoprazole Sodium (Protonix Iv) 40 mg IVPUSH DAILY [facility] Last Admin: 01/31/18 09:51 Dose: 40 mg Sitagliptin Phosphate (Januvia -) 100 mg PO DAILY@0700 [facility] Sulfacetamide Sodium (Bleph-10 Ophthalmic Solution -) 1 drop OS Q3H [facility] Last Admin: 01/31/18 11:15 Dose: 1 drop - Objective Vital Signs: Vital Signs Temperature 97.8 F 01/31/18 09:58 Pulse Rate 65 01/31/18 09:58 Respiratory Rate 20 01/31/18 09:58 Blood Pressure 139/73 01/31/18 09:58 O2 Sat by Pulse Oximetry (%) 97 01/30/18 21:00 Constitutional: Yes: Well Nourished, No Distress, Calm Cardiovascular: Yes: Regular Rate and Rhythm Respiratory: Yes: On Nasal O2, Rhonchi (diffuse), SOB on Exertion Gastrointestinal: Yes: Normal Bowel Sounds, Soft Musculoskeletal: Yes: Muscle Weakness Edema: Yes Edema: LLE: Trace, RLE: Trace Peripheral Pulses WNL: Yes Neurological: Yes: Alert, Oriented Psychiatric: Yes: Alert, Oriented Labs: CBC, BMP 01/31/18 06:30 01/30/18 05:30 INR, PTT INR 1.08 (0.83-1.09) 01/29/18 08:00 Problem List - Problems (1) Afib Assessment/Plan: -Paroxysmal afib -Seen by Cardiology -Cleared to d/c tele -On metoprolol 25 mg po BID -D/C heparin drip, switch to Eliquis 2.5 mg po BID and monitor H/H Code(s): I48.91 - UNSPECIFIED ATRIAL FIBRILLATION (2) Diabetes Assessment/Plan: -A1C at 8.9 -BGM AC HS -Diabetic low sodium diet -Novolog sliding scale -Start januvia 100 mg po daily to avoid hypoglycemia in elderly Code(s): E11.9 - TYPE 2 DIABETES MELLITUS WITHOUT COMPLICATIONS (3) GI (gastrointestinal bleed) Assessment/Plan: -Seen by GI -Guaiac negative -family refused UGIS -monitor H/H -PPI Code(s): K92.2 - GASTROINTESTINAL HEMORRHAGE, UNSPECIFIED (4) NSTEMI (non-ST elevated myocardial infarction) Assessment/Plan: -Seen by cardiology -No invasive workup recommended at this time -Echocardiogram 01/29/18 showed normal LV systolic function, mild valvular abnl Code(s): I21.4 - NON-ST ELEVATION (NSTEMI) MYOCARDIAL INFARCTION (5) Hypothyroid Assessment/Plan: -was on Levothyroxine 125 mcg at home -Increase Levothyroxine to 137 mcg po daily -recheck thyroid profile in 4 weeks Code(s): E03.9 - HYPOTHYROIDISM, UNSPECIFIED (6) Vulvovaginitis Assessment/Plan: -seen by [employer] CL[employer] -Genital culture pending -On miconozole Code(s): N76.0 - ACUTE VAGINITIS (7) Nausea & vomiting Assessment/Plan: -resolved -Reglan 10 mg po bid -Seen by GI Code(s): R11.2 - NAUSEA WITH VOMITING, UNSPECIFIED Assessment/Plan see problem list Physical therapy
[2018-01-31] MEDS: sitaGLIPtin PHOSPHATE 100 MG TABLET (FP) PO SCH (15:09)
[2018-01-31] MEDS: INSULIN SLIDING SCALE (NOVOLOG) 1 VIAL SQ SCH (18:46)
[2018-01-31] MEDS ORDERED: ALBUTEROL SO4 2.5/IPRATROPIUM 0.5 INH SOL 3 ML VIAL.NEB. NEB PRN (18:50)
[2018-01-31 20:00] VITALS: BMI 36.3
[2018-01-31] MEDS: CHLORHEXIDINE GLUCONATE 4% CLEANSER FOR DECOLONIZATION TP SCH (21:26)
[2018-01-31] MEDS: ATORVASTATIN CA 80 MG TABLET (FP) PO SCH (21:28)
[2018-01-31] MEDS: METOCLOPRAMIDE HCL 10 MG TABLET (FP) PO SCH (21:28)
[2018-01-31] MEDS: APIXABAN 2.5 MG TABLET PO SCH (21:28)
[2018-01-31] MEDS: MICONAZOLE NITRATE 2% VAGINAL CREAM 45 GM TUBE VG SCH (21:31)
[2018-01-31] MEDS: NYSTATIN 100000 UNIT/GM TOPICAL OINTMENT 15 GM TUBE TP SCH (22:50)
[2018-01-31] MEDS ORDERED: ACETAMINOPHEN 325 MG TABLET (FP) PO ONE (23:27)
[2018-02-01] MEDS: NITROGLYCERIN 2% OINTMENT - 1GM PACKET TD SCH ×4 (00:05→18:55)
[2018-02-01] MEDS: SULFACETAMIDE SODIUM 10% OPHTHALMIC DROPS 15 ML BOTTLE OS SCH ×7 (02:43→22:46)
--- NOTE | 2018-02-01 04:52 | PN ---
GI Progress Note Subjective: no active bleeding, received NSAID last night for shouldr pain - Objective Vital Signs: Vital Signs Temperature 97.8 F 02/01/18 00:00 Pulse Rate 68 02/01/18 00:00 Respiratory Rate 20 02/01/18 00:00 Blood Pressure 127/58 L 02/01/18 00:00 O2 Sat by Pulse Oximetry (%) 98 01/31/18 21:00 Constitutional: Well Nourished Eyes: Yes: Conjunctiva Clear HENT: Yes: Atraumatic Neck: Yes: Trachea Midline Cardiovascular: Yes: Regular Rate and Rhythm Respiratory: Yes: CTA Bilaterally ...Palpate: Yes: Soft. No: Firm/Rigid, Guarding, Hepatomegaly, Mass, Pulsatile Mass, Splenomegaly, Tenderness, Tenderness, Epigastium Labs: CBC, BMP 01/31/18 06:30 01/30/18 05:30 INR, PTT INR 1.08 (0.83-1.09) 01/29/18 08:00 Problem List - Problems (1) GI (gastrointestinal bleed) Assessment/Plan: stable R> avoid NSAIDS --high risk of rebleeding Protonix 40mg daily Reglan 5 mg 30 min ac Code(s): K92.2 - GASTROINTESTINAL HEMORRHAGE, UNSPECIFIED
[2018-02-01] MEDS: LEVOTHYROXINE NA 25 MCG TABLET (FP) PO SCH (06:49)
[2018-02-01] MEDS: LEVOTHYROXINE NA 112 MCG TABLET (FP) PO SCH (06:49)
[2018-02-01] MEDS: INSULIN SLIDING SCALE (NOVOLOG) 1 VIAL SQ SCH ×3 (06:49→18:53)
[2018-02-01] MEDS: sitaGLIPtin PHOSPHATE 100 MG TABLET (FP) PO SCH (06:50)
[2018-02-01 07:22] LABS: BASO % 0.4 % (0-2.0); EOS % 4.5 % (0-4.5); HEMATOCRIT 34.1 % (32.4-45.2); HEMOGLOBIN 11.3 GM/dL (10.7-15.3); LYMPH % 35.6 % (8-40); MCH 30.3 pg (25.7-33.7); MEAN CELL VOLUME 91.8 fl (80-96); MEAN PLT VOLUME 10.1 fl (7.5-11.1); MONO % 10.6 % (3.8-10.2); NEUT % 48.9 % (42.8-82.8); PLATELET COUNT 146 K/MM3 (134-434); RBC 3.72 M/mm3 (3.60-5.2); WHITE BLOOD COUNT 7.5 K/mm3 (4.0-10.0)
[2018-02-01 08:03] LABS: ALBUMIN 2.4 g/dl (3.4-5.0); ALK PHOS 73 U/L (45-117); ANION GAP 6 MMOL/L (8-16); BILIRUBIN,TOTAL 0.8 mg/dL (0.2-1); BLOOD UREA NITROGEN 15 mg/dL (7-18); CALCIUM 8.1 mg/dL (8.5-10.1); CHLORIDE 104 mmol/L (98-107); CO2 29 mmol/L (21-32); CREATININE 0.8 mg/dL (0.55-1.3); GLUCOSE,RANDOM 238 mg/dL (74-106); POTASSIUM 4.2 mmol/L (3.5-5.1); SGOT/AST 18 U/L (15-37); SGPT/ALT 19 U/L (13-61); SODIUM 139 mmol/L (136-145); TOT PROT 5.3 g/dl (6.4-8.2)
[2018-02-01] MEDS: APIXABAN 2.5 MG TABLET PO SCH ×2 (10:35→22:46)
[2018-02-01] MEDS: LISINOPRIL 5 MG TABLET (FP) PO SCH (10:35)
[2018-02-01] MEDS: ASPIRIN 81 MG CHEWABLE TABLETS PO SCH (10:35)
[2018-02-01] MEDS: METOCLOPRAMIDE HCL 10 MG TABLET (FP) PO SCH ×2 (10:35→22:47)
[2018-02-01] MEDS: METOPROLOL TARTRATE 25 MG TABLET (FP) PO SCH ×2 (10:35→22:47)
[2018-02-01] MEDS: PANTOPRAZOLE SODIUM 40 MG VIAL IVPUSH SCH (10:35)
[2018-02-01] MEDS: CLOTRIMAZOLE/BETAMET DIPROP 15 GM TUBE TP SCH ×2 (10:36→22:47)
[2018-02-01] MEDS: MUPIROCIN 2% TOPICAL OINTMENT FOR DECOLONIZATION NS SCH ×2 (10:36→22:44)
[2018-02-01] MEDS: NYSTATIN 100000 UNIT/GM TOPICAL OINTMENT 15 GM TUBE TP SCH ×2 (10:36→22:47)
--- NOTE | 2018-02-01 10:45 | PN ---
Progress Note, Physician Chief Complaint: GI bleed History of Present Illness: NAD family at bedside heparin drip discontinued started on Eliquis 2.5 mg PO BID Seen by cardiology for NSTEMI Family wants conservative measures refused UGIS H/H stable - Current Medication List Current Medications: Active Medications Albuterol/Ipratropium (Duoneb -) 1 amp NEB Q4H PRN PRN Reason: SHORTNESS OF BREATH Last Admin: 01/31/18 21:35 Dose: 1 amp Apixaban (Eliquis -) 2.5 mg PO BID [facility] Last Admin: 02/01/18 10:35 Dose: 2.5 mg Aspirin (Asa -) 81 mg PO DAILY [facility] Last Admin: 02/01/18 10:35 Dose: 81 mg Atorvastatin Calcium (Lipitor -) 80 mg PO HS [facility] Last Admin: 01/31/18 21:28 Dose: 80 mg Chlorhexidine Gluconate (Hibiclens For Decolonization -) 1 applic TP [facility] Last Admin: 01/31/18 21:26 Dose: Not Given Clotrimazole (Lotrisone Cream (Small Tube)) 1 applic TP BID [facility] Last Admin: 02/01/18 10:36 Dose: 1 applic Insulin Aspart (Novolog Vial Sliding Scale -) 1 vial SQ TIDAC [facility]; Protocol Last Admin: 02/01/18 06:49 Dose: 4 units Levothyroxine Sodium (Synthroid -) 112 mcg PO DAILY@0700 [facility] Last Admin: 02/01/18 06:49 Dose: 112 mcg Levothyroxine Sodium (Synthroid -) 25 mcg PO DAILY@0700 [facility] Last Admin: 02/01/18 06:49 Dose: 25 mcg Lisinopril (Prinivil) 2.5 mg PO DAILY [facility] Last Admin: 02/01/18 10:35 Dose: 2.5 mg Metoclopramide HCl (Reglan -) 10 mg PO BID [facility] Last Admin: 02/01/18 10:35 Dose: 10 mg Metoprolol Tartrate (Lopressor -) 25 mg PO BID [facility] Last Admin: 02/01/18 10:35 Dose: 25 mg Miconazole Nitrate (Monistat-7 Vaginal Cream -) 1 applic VG HS [facility] Stop: 02/05/18 22:01 Last Admin: 01/31/18 21:31 Dose: 1 applic Morphine Sulfate (Morphine Sulfate) 2 mg IVPUSH Q4H PRN PRN Reason: PAIN LEVEL 6-10 Last Admin: 01/31/18 22:46 Dose: 2 mg Mupirocin (Bactroban Ointment (For Decolonization) -) 1 applic NS BID [facility] Stop: 02/03/18 09:59 Last Admin: 02/01/18 10:36 Dose: Not Given Nitroglycerin (Nitro-Bid 2% Paste -) 0.5 inch TD Q6HPO [facility] Last Admin: 02/01/18 06:50 Dose: 0.5 inch Nystatin (Mycostatin Ointment -) 1 applic TP BID [facility] Last Admin: 02/01/18 10:36 Dose: 1 applic Pantoprazole Sodium (Protonix -) 40 mg PO DAILY [facility] Sitagliptin Phosphate (Januvia -) 100 mg PO DAILY@0700 [facility] Last Admin: 02/01/18 06:50 Dose: 100 mg Sulfacetamide Sodium (Bleph-10 Ophthalmic Solution -) 1 drop OS Q3H [facility] Last Admin: 02/01/18 08:30 Dose: 1 drop - Objective Vital Signs: Vital Signs Temperature 97.3 F L 02/01/18 05:40 Pulse Rate 67 02/01/18 05:40 Respiratory Rate 20 02/01/18 05:40 Blood Pressure 127/79 02/01/18 05:40 O2 Sat by Pulse Oximetry (%) 98 01/31/18 21:00 Constitutional: Yes: Well Nourished, No Distress, Calm Cardiovascular: Yes: Regular Rate and Rhythm Respiratory: Yes: Regular Gastrointestinal: Yes: Normal Bowel Sounds, Soft Musculoskeletal: Yes: Muscle Weakness Edema: No Peripheral Pulses WNL: Yes Neurological: Yes: Alert, Oriented Psychiatric: Yes: Alert, Oriented Labs: CBC, BMP 02/01/18 06:35 02/01/18 06:35 INR, PTT INR 1.08 (0.83-1.09) 01/29/18 08:00 Problem List - Problems (1) Afib Assessment/Plan: -Paroxysmal afib -Seen by Cardiology -Cleared to d/c tele -On metoprolol 25 mg po BID -Eliquis 2.5 mg po BID and monitor H/H Code(s): I48.91 - UNSPECIFIED ATRIAL FIBRILLATION (2) Diabetes Assessment/Plan: -A1C at 8.9 -BGM AC HS -Diabetic low sodium diet -Novolog sliding scale -Start januvia 100 mg po daily to avoid hypoglycemia in elderly -Added metformin 1000 mg po BID Code(s): E11.9 - TYPE 2 DIABETES MELLITUS WITHOUT COMPLICATIONS (3) GI (gastrointestinal bleed) Assessment/Plan: -Seen by GI -Guaiac negative -family refused UGIS -monitor H/H -PPI Code(s): K92.2 - GASTROINTESTINAL HEMORRHAGE, UNSPECIFIED (4) NSTEMI (non-ST elevated myocardial infarction) Assessment/Plan: -Seen by cardiology -No invasive workup recommended at this time -Echocardiogram 01/29/18 showed normal LV systolic function, mild valvular abnl Code(s): I21.4 - NON-ST ELEVATION (NSTEMI) MYOCARDIAL INFARCTION (5) Hypothyroid Assessment/Plan: -was on Levothyroxine 125 mcg at home -Increase Levothyroxine to 137 mcg po daily -recheck thyroid profile in 4 weeks Code(s): E03.9 - HYPOTHYROIDISM, UNSPECIFIED (6) Vulvovaginitis Assessment/Plan: -seen by [facility] [employer] -Genital culture: Microbiology 01/30/18 12:30 Gram Stain - Final Vaginal Genital Culture - Preliminary Lactose Fermenting Neg Bacilli -On miconozole Code(s): N76.0 - ACUTE VAGINITIS (7) Nausea & vomiting Assessment/Plan: -resolved -Reglan 10 mg po bid -Seen by GI -PPI Code(s): R11.2 - NAUSEA WITH VOMITING, UNSPECIFIED Assessment/Plan see problem list Physical therapy
--- NOTE | 2018-02-01 14:21 | PN ---
Progress Note (short form) - Note Progress Note: Resting in NAD. No CP or SOB. Noted started on Eliquis. Intake & Output 01/29/18 01/30/18 01/31/18 02/01/18 23:59 23:59 23:59 23:59 Intake Total 1366 1742 1140 700 Output Total 1100 700 600 Balance 266 1042 540 700 Weight 212 lb 8.41 oz 212 lb Last Vital Signs Temp Pulse Resp BP Pulse Ox 97.3 F L 67 20 127/79 98 02/01/18 05:40 02/01/18 05:40 02/01/18 05:40 02/01/18 05:40 01/31/18 21:00 Active Medications Albuterol/Ipratropium (Duoneb -) 1 amp NEB Q4H PRN PRN Reason: SHORTNESS OF BREATH Last Admin: 01/31/18 21:35 Dose: 1 amp Apixaban (Eliquis -) 2.5 mg PO BID [facility] Last Admin: 02/01/18 10:35 Dose: 2.5 mg Aspirin (Asa -) 81 mg PO DAILY [facility] Last Admin: 02/01/18 10:35 Dose: 81 mg Atorvastatin Calcium (Lipitor -) 80 mg PO HS [facility] Last Admin: 01/31/18 21:28 Dose: 80 mg Chlorhexidine Gluconate (Hibiclens For Decolonization -) 1 applic TP HS [facility] Last Admin: 01/31/18 21:26 Dose: Not Given Clotrimazole (Lotrisone Cream (Small Tube)) 1 applic TP BID [facility] Last Admin: 02/01/18 10:36 Dose: 1 applic Insulin Aspart (Novolog Vial Sliding Scale -) 1 vial SQ TIDAC [facility]; Protocol Last Admin: 02/01/18 06:49 Dose: 4 units Levothyroxine Sodium (Synthroid -) 112 mcg PO DAILY@0700 [facility] Last Admin: 02/01/18 06:49 Dose: 112 mcg Levothyroxine Sodium (Synthroid -) 25 mcg PO DAILY@0700 [facility] Last Admin: 02/01/18 06:49 Dose: 25 mcg Lisinopril (Prinivil) 2.5 mg PO DAILY [facility] Last Admin: 02/01/18 10:35 Dose: 2.5 mg Metformin HCl (Glucophage -) 1,000 mg PO BID@0700,1630 [facility] Metoclopramide HCl (Reglan -) 10 mg PO BID [facility] Last Admin: 02/01/18 10:35 Dose: 10 mg Metoprolol Tartrate (Lopressor -) 25 mg PO BID [facility] Last Admin: 02/01/18 10:35 Dose: 25 mg Miconazole Nitrate (Monistat-7 Vaginal Cream -) 1 applic VG HS [facility] Stop: 02/05/18 22:01 Last Admin: 01/31/18 21:31 Dose: 1 applic Morphine Sulfate (Morphine Sulfate) 2 mg IVPUSH Q4H PRN PRN Reason: PAIN LEVEL 6-10 Last Admin: 01/31/18 22:46 Dose: 2 mg Mupirocin (Bactroban Ointment (For Decolonization) -) 1 applic NS BID [facility] Stop: 02/03/18 09:59 Last Admin: 02/01/18 10:36 Dose: Not Given Nitroglycerin (Nitro-Bid 2% Paste -) 0.5 inch TD Q6HPO [facility] Last Admin: 02/01/18 06:50 Dose: 0.5 inch Nystatin (Mycostatin Ointment -) 1 applic TP BID [facility] Last Admin: 02/01/18 10:36 Dose: 1 applic Pantoprazole Sodium (Protonix -) 40 mg PO DAILY [facility] Sitagliptin Phosphate (Januvia -) 100 mg PO DAILY@0700 [facility] Last Admin: 02/01/18 06:50 Dose: 100 mg Sulfacetamide Sodium (Bleph-10 Ophthalmic Solution -) 1 drop OS Q3H [facility] Last Admin: 02/01/18 08:30 Dose: 1 drop Constitutional: Yes: NAD Eyes: Yes: WNL HENT: Yes: WNL Neck: Yes: WNL Cardiovascular: Yes: Regular Rate and Rhythm, S1, S2 Respiratory: Yes: Bibasilar Rales/Rhonchi Gastrointestinal: Yes: Normal Bowel Sounds, Soft Extremities: Yes: WNL Edema: No Labs: Laboratory Results - last 24 hr 01/31/18 01/31/18 02/01/18 16:30 16:58 06:35 WBC RBC Hgb Hct MCV MCH MCHC RDW Plt Count MPV Absolute Neuts (auto) Neutrophils % Lymphocytes % Monocytes % Eosinophils % Basophils % Nucleated RBC % PTT (Actin FS) 59.7 H 33.1 Sodium Potassium Chloride Carbon Dioxide Anion Gap BUN Creatinine Creat Clearance w eGFR POC Glucometer 287 Random Glucose Calcium Total Bilirubin AST ALT Alkaline Phosphatase Total Protein Albumin 02/01/18 02/01/18 02/01/18 06:35 06:35 06:48 WBC 7.5 RBC 3.72 Hgb 11.3 Hct 34.1 MCV 91.8 MCH 30.3 MCHC 33.0 RDW 13.0 Plt Count 146 MPV 10.1 Absolute Neuts (auto) 3.7 Neutrophils % 48.9 D Lymphocytes % 35.6 D Monocytes % 10.6 H Eosinophils % 4.5 D Basophils % 0.4 Nucleated RBC % 0 PTT (Actin FS) Sodium 139 Potassium 4.2 Chloride 104 Carbon Dioxide 29 Anion Gap 6 L BUN 15 Creatinine 0.8 Creat Clearance w eGFR > 60 POC Glucometer 275 Random Glucose 238 H Calcium 8.1 L Total Bilirubin 0.8 AST 18 ALT 19 Alkaline Phosphatase 73 Total Protein 5.3 L Albumin 2.4 L Problem List - Problems (1) NSTEMI (non-ST elevated myocardial infarction) Code(s): I21.4 - NON-ST ELEVATION (NSTEMI) MYOCARDIAL INFARCTION (2) Nausea & vomiting Code(s): R11.2 - NAUSEA WITH VOMITING, UNSPECIFIED (3) CAD (coronary artery disease) Code(s): I25.10 - ATHSCL HEART DISEASE OF [place] CORONARY ARTERY W/O ANG PCTRS (4) Diabetes mellitus with peripheral vascular disease Code(s): E11.51 - TYPE 2 DIABETES W DIABETIC PERIPHERAL ANGIOPATH W/O GANGRENE (5) Gastroparesis Code(s): K31.84 - GASTROPARESIS (6) IBS (irritable bowel syndrome) Code(s): K58.9 - IRRITABLE BOWEL SYNDROME WITHOUT DIARRHEA (7) Nausea & vomiting Code(s): R11.2 - NAUSEA WITH VOMITING, UNSPECIFIED Qualifiers: Vomiting type: unspecified Vomiting Intractability: unspecified Qualified Code(s): R11.2 - Nausea with vomiting, unspecified (8) COPD (chronic obstructive pulmonary disease) Code(s): J44.9 - CHRONIC OBSTRUCTIVE PULMONARY DISEASE, UNSPECIFIED Assessment/Plan Acute NSTEMI Nausea/Vomiting resolved Gastroparesis CAD COPD DM Hypothyroidism Dementia - antiplatelets - Eliquis - beta camille, statin - nitrates as needed - monitor H/H - PO as tolerated - D/C planning Dr Vaughan
[2018-02-01] MEDS: metFORMIN HCL 500 MG TABLET (FP) PO SCH (18:56)
[2018-02-01] MEDS: CHLORHEXIDINE GLUCONATE 4% CLEANSER FOR DECOLONIZATION TP SCH (22:45)
[2018-02-01] MEDS: MICONAZOLE NITRATE 2% VAGINAL CREAM 45 GM TUBE VG SCH (22:47)
[2018-02-01] MEDS: ATORVASTATIN CA 80 MG TABLET (FP) PO SCH (22:49)
[2018-02-02] MEDS: SULFACETAMIDE SODIUM 10% OPHTHALMIC DROPS 15 ML BOTTLE OS SCH ×5 (00:30→12:02)
[2018-02-02] MEDS: NITROGLYCERIN 2% OINTMENT - 1GM PACKET TD SCH ×3 (00:30→12:03)
[2018-02-02] MEDS ORDERED: INSULIN (NOVOLOG) ASPART 100 UNITS/ML 10ML VIAL ONE (06:23)
[2018-02-02] MEDS: metFORMIN HCL 500 MG TABLET (FP) PO SCH (06:43)
[2018-02-02] MEDS: INSULIN SLIDING SCALE (NOVOLOG) 1 VIAL SQ SCH ×2 (06:43→12:02)
[2018-02-02] MEDS: LEVOTHYROXINE NA 112 MCG TABLET (FP) PO SCH (06:43)
[2018-02-02] MEDS: sitaGLIPtin PHOSPHATE 100 MG TABLET (FP) PO SCH (06:43)
[2018-02-02] MEDS: LEVOTHYROXINE NA 25 MCG TABLET (FP) PO SCH (06:44)
[2018-02-02 06:58] LABS: HEMATOCRIT 38.4 % (32.4-45.2); HEMOGLOBIN 12.3 GM/dL (10.7-15.3); MCH 29.5 pg (25.7-33.7); MCHC 32.1 g/dl (32.0-36.0); MEAN PLT VOLUME 10.2 fl (7.5-11.1); PLATELET COUNT 162 K/MM3 (134-434); RBC 4.17 M/mm3 (3.60-5.2); RDW 13.4 % (11.6-15.6); WHITE BLOOD COUNT 8.9 K/mm3 (4.0-10.0)
[2018-02-02] MEDS: METOCLOPRAMIDE HCL 10 MG TABLET (FP) PO SCH (09:32)
[2018-02-02] MEDS: LISINOPRIL 5 MG TABLET (FP) PO SCH (09:32)
[2018-02-02] MEDS: METOPROLOL TARTRATE 25 MG TABLET (FP) PO SCH (09:32)
[2018-02-02] MEDS: APIXABAN 2.5 MG TABLET PO SCH (09:32)
[2018-02-02] MEDS: ASPIRIN 81 MG CHEWABLE TABLETS PO SCH (09:32)
[2018-02-02] MEDS: NYSTATIN 100000 UNIT/GM TOPICAL OINTMENT 15 GM TUBE TP SCH (09:34)
[2018-02-02] MEDS: CLOTRIMAZOLE/BETAMET DIPROP 15 GM TUBE TP SCH (09:34)
[2018-02-02] MEDS: MUPIROCIN 2% TOPICAL OINTMENT FOR DECOLONIZATION NS SCH (09:35)
[2018-02-02 09:56] VITALS: BP 148/66; PULSE 68; TEMP 98
--- NOTE | 2018-02-02 09:56 | PN ---
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 May use Lotrisone cream bid at home for 3 days prn. Steven MARQUEZ
[2018-02-02] MEDS ORDERED: PANTOPRAZOLE 40 MG TABLET (FP) PO SCH (10:00)
--- NOTE | 2018-02-02 10:55 | DS ---
Physical Examination Vital Signs: Vital Signs Temperature 98 F 02/02/18 09:55 Pulse Rate 68 02/02/18 09:55 Respiratory Rate 18 02/02/18 09:55 Blood Pressure 148/66 02/02/18 09:55 O2 Sat by Pulse Oximetry (%) 98 02/01/18 21:00 Findings/Remarks: This is a 87 y/o woman from home PMHx of: Dementia, CAD, COPD, IDDM, Gastroparesis, Hypothyroidism. Who presents to the ED via EMS with coffee ground emesis. Per ED records: Pt reportedly has been feeling weak, dizzy along with abdominal pain for the past 1 week. NB/NB Vomiting began 3 days ago and today has had greater than 10 episodes of coffee ground emesis. At bedside when I asked patient in [place], if she had pain she pointed to her epigastirum. Patient has Dementia and is unable to provide detailed HPI. Constitutional: Yes: Well Nourished, No Distress, Calm, Obese Cardiovascular: Yes: Regular Rate and Rhythm Respiratory: Yes: Regular Gastrointestinal: Yes: Normal Bowel Sounds, Soft, Abdomen, Obese Musculoskeletal: Yes: Muscle Weakness Edema: No Peripheral Pulses WNL: Yes Neurological: Yes: Alert, Oriented Psychiatric: Yes: Alert, Oriented Labs: CBC, BMP 02/02/18 05:30 02/01/18 06:35 Discharge Summary Reason For Visit: TYPE 2 DIABETES MELLITU WITH HYPERGLYCEMIA/MASS IN Current Active Problems Afib (Acute) COPD (chronic obstructive pulmonary disease) (Acute) Chest mass (Acute) Dehydration (Acute) Diabetes (Acute) Diabetes mellitus, insulin dependent (IDDM), uncontrolled (Acute) GI (gastrointestinal bleed) (Acute) Lactic acidosis (Acute) NSTEMI (non-ST elevated myocardial infarction) (Acute) Nausea & vomiting (Acute) Vulvovaginitis (Acute) Hospital Course: Laboratory Last Values WBC 8.9 K/mm3 (4.0-10.0) 02/02/18 05:30 RBC 4.17 M/mm3 (3.60-5.2) 02/02/18 05:30 Hgb 12.3 GM/dL (10.7-15.3) 02/02/18 05:30 Hct 38.4 % (32.4-45.2) 02/02/18 05:30 MCV 92.0 fl (80-96) 02/02/18 05:30 MCH 29.5 pg (25.7-33.7) 02/02/18 05:30 MCHC 32.1 g/dl (32.0-36.0) 02/02/18 05:30 RDW 13.4 % (11.6-15.6) 02/02/18 05:30 Plt Count 162 K/MM3 (134-434) 02/02/18 05:30 MPV 10.2 fl (7.5-11.1) 02/02/18 05:30 Absolute Neuts (auto) 3.7 K/mm3 (1.5-8.0) 02/01/18 06:35 Neutrophils % 48.9 % (42.8-82.8) D 02/01/18 06:35 Lymphocytes % 35.6 % (8-40) D 02/01/18 06:35 Monocytes % 10.6 % (3.8-10.2) H 02/01/18 06:35 Eosinophils % 4.5 % (0-4.5) D 02/01/18 06:35 Basophils % 0.4 % (0-2.0) 02/01/18 06:35 Nucleated RBC % 0 % (0-0) 02/01/18 06:35 PT with INR 12.80 SEC (9.7-13.0) 01/29/18 08:00 INR 1.08 (0.83-1.09) 01/29/18 08:00 PTT (Actin FS) 34.0 SECONDS (25.2-36.5) 02/02/18 05:30 D-Dimer 1939 ng/ml (0-500) H 01/27/18 22:52 VBG pH 7.44 (7.32-7.42) H 01/27/18 22:52 POC VBG pCO2 47.9 mmHg (38-52) 01/27/18 22:52 POC VBG pO2 33.6 mmHg (28-48) D 01/27/18 22:52 Mixed VBG HCO3 32.1 meq/L (19-25) H 01/27/18 22:52 Sodium 139 mmol/L (136-145) 02/01/18 06:35 Potassium 4.2 mmol/L (3.5-5.1) 02/01/18 06:35 Chloride 104 mmol/L (98-107) 02/01/18 06:35 Carbon Dioxide 29 mmol/L (21-32) 02/01/18 06:35 Anion Gap 6 MMOL/L (8-16) L 02/01/18 06:35 BUN 15 mg/dL (7-18) 02/01/18 06:35 Creatinine 0.8 mg/dL (0.55-1.3) 02/01/18 06:35 Creat Clearance w eGFR > 60 (>60) 02/01/18 06:35 POC Glucometer 212 UNITS (80-120) 02/02/18 05:35 Random Glucose 238 mg/dL (74-106) H 02/01/18 06:35 Hemoglobin A1c % 8.9 % (4.2-6.3) H 01/30/18 05:30 Lactic Acid 0.9 mmol/L (0.4-2.0) 01/28/18 05:30 Calcium 8.1 mg/dL (8.5-10.1) L 02/01/18 06:35 Phosphorus 2.9 mg/dL (2.5-4.9) 01/30/18 05:30 Magnesium 2.5 mg/dL (1.8-2.4) H 01/30/18 05:30 Total Bilirubin 0.8 mg/dL (0.2-1) 02/01/18 06:35 AST 18 U/L (15-37) 02/01/18 06:35 ALT 19 U/L (13-61) 02/01/18 06:35 Alkaline Phosphatase 73 U/L (45-117) 02/01/18 06:35 Creatine Kinase 88 IU/L (26-192) 01/30/18 05:30 Creatine Kinase Index 3.1 % (0.0-5.0) 01/29/18 01:25 CK-MB (CK-2) 5.6 ng/mL (0.5-3.6) H 01/29/18 01:25 Troponin I 2.20 ng/ml (0.00-0.05) H* 01/30/18 05:30 Total Protein 5.3 g/dl (6.4-8.2) L 02/01/18 06:35 Albumin 2.4 g/dl (3.4-5.0) L 02/01/18 06:35 Triglycerides 84 mg/dL (0-150) 01/30/18 05:30 Cholesterol 122 mg/dL (50-200) 01/30/18 05:30 Total LDL Cholesterol 77 mg/dL (5-100) 01/30/18 05:30 HDL Cholesterol 38 mg/dL (40-60) L 01/30/18 05:30 TSH 6.32 uIU/ml (0.358-3.74) H 01/30/18 05:30 Urine Color Yellow 01/28/18 01:13 Urine Appearance Clear 01/28/18 01:13 Urine pH 8.0 (5.0-8.0) D 01/28/18 01:13 Ur Specific [place] 1.017 (1.010-1.035) 01/28/18 01:13 Urine Protein 1+ (NEGATIVE) H 01/28/18 01:13 Urine Glucose (UA) 2+ (NEGATIVE) H 01/28/18 01:13 Urine Ketones Negative (NEGATIVE) 01/28/18 01:13 Urine Blood Negative (NEGATIVE) 01/28/18 01:13 Urine Nitrite Negative (NEGATIVE) 01/28/18 01:13 Urine Bilirubin Negative (<2.0 mg/dL) 01/28/18 01:13 Urine Urobilinogen Negative mg/dL (0.2-1.0) 01/28/18 01:13 Ur Leukocyte Esterase Negative (NEGATIVE) 01/28/18 01:13 Urine WBC (Auto) 1 /hpf (3-5) 01/28/18 01:13 Urine RBC (Auto) 1 /hpf (0-3) 01/28/18 01:13 Ur Epithelial Cells Rare /HPF (FEW) 01/28/18 01:13 Urine Bacteria Rare /hpf (NONE SEEN) 01/28/18 01:13 Hyaline Casts 3 /lpf 01/28/18 01:13 Urine Mucus Rare 01/28/18 01:13 Stool Occult Blood Negative (NEGATIVE) 01/27/18 23:56 Blood Type A POSITIVE 01/27/18 20:19 Antibody Screen Negative 01/27/18 20:19 Crossmatch See Detail 01/27/18 20:19 Microbiology 01/27/18 22:52 Blood - Peripheral Venous Blood Culture - Final NO GROWTH AFTER 5 DAYS INCUBATION 01/27/18 22:52 Blood - Peripheral Venous Blood Culture - Final NO GROWTH AFTER 5 DAYS INCUBATION 01/30/18 12:30 Vaginal Gram Stain - Final 01/30/18 12:30 Vaginal Genital Culture - Final Escherichia Coli 01/28/18 01:13 Urine - Urine Clean Catch Urine Culture - Final NO GROWTH OBTAINED Condition: Stable - Instructions Diet, Activity, Other Instructions: -Levothyroxine increased to 137 mcg po daily -recheck Thyroid profile in 4 weeks -Pt started on Januvia 100 mg po daily and metformin 1000 mg po BID -Pt started on Eliquis 2.5 mg po BID -Pt started on Donaldo-bid 2% paste 0.5 inch Q6H -BGM AC HS -Novolog insuline TID as per sliding scale: 150-200- 2 units 201-250-4 units 251-300-6 units 301-350-8 units 351-400-10 units >400- 12 units -Low chol low sodium diabetic diet -D/C valsartan -d/c furosemide Referrals: Tyrell Back MD [Primary Care Provider] - Disposition: [facility] - Home Medications Comprehensive Discharge Medication List: Ambulatory Orders Acetaminophen [Tylenol .Regular Strength -] 650 mg PO Q4H PRN #20 tablet MDD 4 10/12/17 Albuterol 2.5/Ipratropium 0.5 [Duoneb -] 1 amp NEB Q4H PRN amp 02/02/18 Apixaban [Eliquis -] 2.5 mg PO BID tablet 02/02/18 Aspirin [ASA -] 81 mg PO DAILY tab.chew 02/02/18 Atorvastatin Ca [Lipitor] 80 mg PO HS tablet 02/02/18 Clotrimazole/Betamet Diprop [Lotrisone -] 1 applic TP BID tube 02/02/18 Insulin Sliding Scale [Novolog Vial Sliding Scale -] 1 vial SQ TIDAC units 05/21 Levothyroxine [Synthroid -] 25 mcg PO DAILY@0700 tablet 02/02/18 Levothyroxine [Synthroid -] 112 mcg PO DAILY@0700 tablet 02/02/18 Lisinopril [Prinivil] 2.5 mg PO DAILY tablet 02/02/18 Metoclopramide HCl [Reglan -] 10 mg PO BID tablet 02/02/18 Metoprolol Tartrate [Lopressor -] 25 mg PO BID tablet 02/02/18 Miconazole Nitrate [Monistat-7 -] 1 applic VG HS tube 02/02/18 Nitroglycerin 2% Paste [Nitro-Bid 2% Paste -] 0.5 inch TD Q6HPO packet Nystatin Ointment [Mycostatin Ointment -] 1 applic TP BID applic 02/02/18 Pantoprazole Sodium [Protonix -] 40 mg PO DAILY tablet.ec 02/02/18 Sitagliptin Phosphate [Januvia -] 100 mg PO DAILY@0700 ud 02/02/18 Sulfacetamide Sodium 10% [Bleph-10 Ophthalmic Solution -] 1 drop OS Q3H drops 02/02/18 metFORMIN HCL [Glucophage -] 1,000 mg PO BID@0700,1630 tablet 02/02/18
--- NOTE | 2018-02-02 12:58 | PN ---
Progress Note (short form) - Note Progress Note: PULMONARY APPEARS STABLE NO CP/SOB FAMILY PRESENT PATIENT WILL BE DISCHARGED TODAY VSS AFEBRILE ANICTERIC DISTANT BUT CLEAR B/L BREATH SOUNDS S1S2 BS+ OBESE MINIMAL B/L ANKLE EDEMA LABS/MEDS/NOTES/IMAGES/MICRO REVIEWED Acute NSTEMI/PAF Nausea/Vomiting resolved Gastroparesis CAD COPD DM Hypothyroidism Dementia - antiplatelets - Eliquis - beta camille, statin - nitrates as needed - monitor H/H - PO as tolerated - D/C planning Vivek DIEGO MD
== END 2018-02-02 14:26 | disposition home health service (06) | DRG 73 ==
LOC: JER 19:48 → JERBED 01-28 00:17 → UNDOADMIN 01-28 00:17 → JICU 01-28 03:00 → J5S 01-28 13:45 → JICU 01-29 05:21 → J4W 01-29 19:52
PROVIDERS: ADMIT Internal Medicine; ATTEND Family Medicine
DX: E11.43 Type 2 diabetes mellitus with diabetic autonomic (poly)neuropathy (principal); I21.4 Non-ST elevation (NSTEMI) myocardial infarction; K92.2 Gastrointestinal hemorrhage, unspecified; N17.9 Acute kidney failure, unspecified; I25.10 Atherosclerotic heart disease of native coronary artery without angina pectoris; F03.90 Unspecified dementia, unspecified severity, without behavioral disturbance, psychotic disturbance, mood disturbance, and anxiety; J44.9 Chronic obstructive pulmonary disease, unspecified; E03.9 Hypothyroidism, unspecified; E11.65 Type 2 diabetes mellitus with hyperglycemia; K31.84 Gastroparesis; I34.1 Nonrheumatic mitral (valve) prolapse; E78.5 Hyperlipidemia, unspecified; K76.0 Fatty (change of) liver, not elsewhere classified; E86.0 Dehydration; R22.2 Localized swelling, mass and lump, trunk; K44.9 Diaphragmatic hernia without obstruction or gangrene; D25.9 Leiomyoma of uterus, unspecified; K57.30 Diverticulosis of large intestine without perforation or abscess without bleeding; R68.0 Hypothermia, not associated with low environmental temperature; R00.0 Tachycardia, unspecified; D72.829 Elevated white blood cell count, unspecified; M71.20 Synovial cyst of popliteal space [Baker], unspecified knee; E06.3 Autoimmune thyroiditis; N76.0 Acute vaginitis; H01.9 Unspecified inflammation of eyelid; I48.0 Paroxysmal atrial fibrillation; R91.1 Solitary pulmonary nodule; E66.9 Obesity, unspecified; Z68.36 Body mass index [BMI] 36.0-36.9, adult; K58.9 Irritable bowel syndrome, unspecified; Z85.828 Personal history of other malignant neoplasm of skin; Z85.850 Personal history of malignant neoplasm of thyroid; Z79.4 Long term (current) use of insulin
CPT/HCPCS: 36415; 71045-TC-FY; 71250-TC; 74176-TC; 80048; 80053; 80061; 81003; 81015; 82272; 82550; 82553; 82803; 82962; 83036; 83605; 83721; 83735; 84100; 84443; 84484; 85025; 85027; 85379; 85610; 85730; 86850; 86900; 86901; 86922; 87040; 87070; 87086; 87186; 87205; 90688; 93005; 93010; 93306-TC; 94640; 97116-GP; 97162-GP; 99281-25; G0008; J0131; J1644; J7030

== ENCOUNTER 2018-02-19 22:57 | Emergency (ER) | payer OTHER ==
[2018-02-19 23:09] VITALS: BMI 35.2
--- NOTE | 2018-02-19 23:12 | PDOC ---
History of Present Illness <Yenni Shelley - Last Filed: 02/20/18 00:12> - History of Present Illness Initial Comments: 87 year old female with history of CAD, DM, dementia, and gastroparesis presenting with SOB, NBNB vomiting, and right sided chest pain for the past 1.5 days. Patient is demented and unable to clearly describe symptoms but does state that it is non-radiating, right side, 5/10 pain. Denies jaw garrett, shoulder garrett, fevers, chills, constipation, diarrhea, changes in bowel habit, or urinary symptoms. 02/20/18 01:49 <Chance Pond - Last Filed: 02/20/18 02:35> - General Chief Complaint: Chest Pain Stated Complaint: CHEST PAIN Time Seen by Provider: 02/19/18 23:12 Past History <Yenni Shelley - Last Filed: 02/20/18 00:12> - Past Medical History Anemia: No Asthma: Yes Cancer: Yes (SKIN) Cardiac Disorders: Yes (MITRAL VALVE PROLAPSE) COPD: Yes CHF: Yes Dementia: Yes (early onset) Diabetes: Yes GI Disorders: Yes HTN: Yes Hypercholesterolemia: Yes Liver Disease: Yes (FATTY LIVER) Thyroid Disease: Yes - Surgical History Abdominal Surgery: Yes Cholecystectomy: Yes - Suicide/Smoking/Psychosocial Hx Smoking Status: Yes Smoking History: Never smoked Have you smoked in the past 12 months: No Number of Cigarettes Smoked Daily: 0 If you are a former smoker, when did you quit?: 1985 Cigars Per Day: 0 Information on smoking cessation initiated: No Hx Alcohol Use: No Drug/Substance Use Hx: No Substance Use Type: None Hx Substance Use Treatment: Yes <Chance Pond - Last Filed: 02/20/18 02:35> - Past Medical History Allergies/Adverse Reactions: Allergies Allergy/AdvReac Type Severity Reaction Status Date / Time vancomycin AdvReac Itching Verified 02/19/18 23:09 Home Medications: Ambulatory Orders Acetaminophen [Tylenol .Regular Strength -] 650 mg PO Q4H PRN #20 tablet MDD 4 10/12/17 Albuterol 2.5/Ipratropium 0.5 [Duoneb -] 1 amp NEB Q4H PRN amp 02/02/18 Apixaban [Eliquis -] 2.5 mg PO BID #60 tablet 02/02/18 Aspirin Coated [Ecotrin -] 81 mg PO DAILY #30 tablet.ec 02/02/18 Atorvastatin Ca [Lipitor] 80 mg PO HS #30 tab 02/02/18 Clotrimazole/Betamethasone Dip [Clotrimazole-Betamethasone Crm] 45 gm TP BID #1 tube 02/02/18 Insulin Aspart [Novolog Flexpen] 100 unit SQ AC PRN #1 insuln.pen 02/02/18 Levothyroxine Sodium 137 mcg PO DAILY #30 tablet 02/02/18 Lisinopril [Zestril] 2.5 mg PO DAILY #30 tablet 02/02/18 Metformin HCl [Glucophage] 1,000 mg PO BID #60 tablet 02/02/18 Metoclopramide HCl [Reglan -] 10 mg PO BID #60 tablet 02/02/18 Metoprolol Tartrate [Lopressor -] 25 mg PO BID #60 tablet 02/02/18 Nitroglycerin Sublingual [Nitrostat -] 0.4 mg SL PRN PRN #1 bottle 02/02/18 Pantoprazole Sodium [Protonix -] 40 mg PO DAILY #30 tablet.ec 02/02/18 Pen Needle, Diabetic [Pen Needle] 1 each MC TID PRN #100 dis.needle 02/02/18 Sitagliptin Phosphate [Januvia] 100 mg PO DAILY #30 tablet 02/02/18 Sulfacetamide Sodium 10% [Bleph-10 Ophthalmic Solution -] 1 drop OS Q3H drops 02/02/18 Review of Systems - Review of Systems Constitutional: No: Chills, Diaphoresis, Fever, Loss of Appetite Respiratory: Yes: Shortness of Breath, SOB with Exertion. No: Cough Cardiac (ROS): Yes: Chest Pain. No: Irregular Heart Rate, Lightheadedness, Palpitations ABD/GI: Yes: Nausea, Poor Appetite, Poor Fluid Intake, Vomiting. No: Diarrhea : No: Dysuria, Discharge, Frequency Musculoskeletal: No: Gout, Joint Pain, Joint Swelling Integumentary: No: Lesions, Lumps, Pallor Neurological: No: Headache, Numbness, Paresthesia Psychiatric: No: Anxiety, Depression Hematologic/Lymphatic: No: Anemia, Blood Clots <Chance Pond - Last Filed: 02/20/18 02:35> *Physical Exam - Vital Signs Last Vital Signs Temp Pulse Resp BP Pulse Ox 97.7 F 76 19 188/100 H 99 02/19/18 23:00 02/19/18 23:00 02/19/18 23:00 02/19/18 23:00 02/19/18 23:00 <Yenni Shelley - Last Filed: 02/20/18 00:12> - Vital Signs Last Vital Signs Temp Pulse Resp BP Pulse Ox 97.7 F 76 19 188/100 H 99 02/19/18 23:00 02/19/18 23:00 02/19/18 23:00 02/19/18 23:00 02/19/18 23:00 - Physical Exam General Appearance: Yes: Nourished, Appropriately Dressed. No: Apparent Distress HEENT: positive: EOMI, PREETI, Normal ENT Inspection, Normal Voice Neck: positive: Trachea midline, Normal Thyroid, Lymphadenopathy (R). negative : Tender, Rigid Respiratory/Chest: positive: Lungs Clear, Normal Breath Sounds. negative: Chest Tender, Respiratory Distress, Accessory Muscle Use Cardiovascular: positive: Regular Rhythm, Regular Rate Gastrointestinal/Abdominal: positive: Normal Bowel Sounds, Tender (RUQ tenderness), Flat, Soft Lymphatic: negative: Adenopathy, Tenderness Musculoskeletal: positive: Normal Inspection. negative: Decreased Range of Motion Extremity: positive: Normal Capillary Refill, Normal Inspection, Normal Range of Motion. negative: Tender Integumentary: positive: Normal Color, Dry, Warm Neurologic: positive: Alert, Normal Mood/Affect, Normal Response, Motor Strength 5/5. negative: Fully Oriented (demented but pleasant) <Chance Pond - Last Filed: 02/20/18 02:35> ED Treatment Course - LABORATORY CBC & Chemistry Diagram: 02/20/18 00:45 02/20/18 00:45 <Chance Pond - Last Filed: 02/20/18 02:35> Medical Decision Making - Medical Decision Making 02/20/18 00:12 Morbidly obese 87-year-old female brought in from home after one day of persistent vomiting, right upper quadrant pain and right chest pain. Patient has a history of diabetes, gastroparesis, dementia. She was admitted last month for gastroparesis and actually had a consult with Dr. Altaf Kothari on January 28. He reviewed the 10th CAT scans she's had since 2012 (including 3 this year) all of which did not show any etiology for her vomiting. She carries the diagnosis of gastroparesis. <Yenni Shelley - Last Filed: 02/20/18 00:12> - Medical Decision Making 87 year old female with one day of persistent NBNB vomiting, ruq pain, and right sided chest pain for the past day. Unclear source but patient does have severe ruq pain. 02/20/18 01:53 EKG demonstrated rate 73, OK interval 226, WRS 92, QTc 491 with 1st degree AV block, no ST or T wave changes and overall similar to EKG from 01/29/2018. Labs WNL, sugar 250s and ruq US did not show a gallbladder. Patient's symptoms improved with Zofran and she tolerated PO. Repeat abdominal exam was completely benign and BP improved. Will DC with PCP follow up. 02/20/18 02:31 02/20/18 02:33 <Chance Pond - Last Filed: 02/20/18 02:35> *DC/Admit/Observation/Transfer <Yenni Shelley - Last Filed: 02/20/18 00:12> - Discharge Dispostion Decision to Admit order: No <Chance Pond - Last Filed: 02/20/18 02:35> Diagnosis at time of Disposition: Nausea & vomiting Qualifiers: Vomiting type: unspecified Vomiting Intractability: non-intractable Qualified Code(s): R11.2 - Nausea with vomiting, unspecified - Discharge Dispostion Disposition: HOME Condition at time of disposition: Improved - Referrals Referrals: Kathy Barnett MD [Primary Care Provider] - - Patient Instructions Printed Discharge Instructions: DI for Atypical Chest Pain, Nausea and Vomiting -Adult Additional Instructions: Please use a cautious diet with soft foods for the next day. Please follow up with your PCP tomorrow. Please return to the ED if you have new or worsening symptoms. Print Language: MALTESE - Post Discharge Activity
[2018-02-20] MEDS ORDERED: ONDANSETRON 4 MG/2 ML VIAL IVPUSH ONE (00:08)
--- NOTE | 2018-02-20 00:16 | PDOC ---
Attending Attestation - HPI HPI: This is an 87 year old female with PMHx of Dementia, CAD, COPD, IDDM, Gastroparesis, Hypothyroidism. who was BIBA for right sided chest pain, RUQ pain, and multiple episodes of vomiting since yesterday. History is limited since patient is poor historian due to clinical condition. Patients son reports that patient has been vomiting since yesterday and seems more confused than normal. Patient reports RUQ pain after vomiting, rates 5/10. She states that she has had this pain multiple times before, triggered by food . Denies any jaw pain, fever chills. Denies any constipation, diarrhea, changes in urination. PCP: Kathy Barnett <Jailene Almonte - Last Filed: 02/20/18 00:23> - Resident Resident Name: Chacne Pond - ED Attending Attestation I have performed the following: I have examined & evaluated the patient, The case was reviewed & discussed with the resident, I agree w/resident's findings & plan, Exceptions are as noted - Physicial Exam PE: 02/20/18 01:31 87 yo female BIBA for persistent vomiting and RUQ pain for one day 02/20/18 01:38 obese 87 yo female with c/o vomiting head ncat neck supple lungs cta b/l cvs rrr s1s2 abd protuberant,RUQ tenderness ext no deformities skin warm and dry neuro alert,moving al extremities psych appropriate - Medical Decision Making 02/20/18 01:44 Patient was here in January for persistent vomiting and had gastroenterology consult with Dr. Altaf Kothari on Jan 28 pt has had 10 ct scans of abd since 2012 and none showed any etiology for her vomiting, she had 3 ct scans of abd within the last year -she has been diagnosed with gastroparisis in the past <Yenni Shelley - Last Filed: 02/20/18 01:55>
[2018-02-20] MEDS ORDERED: ONDANSETRON 4 MG/2 ML VIAL ONE (00:18)
[2018-02-20 01:21] LABS: INR 1.13 (0.83-1.09); PROTHROMBIN TIME (PATIENT) 13.3 SEC (9.7-13.0)
[2018-02-20 01:28] LABS: EOS % 2.1 % (0-4.5); HEMATOCRIT 39.4 % (32.4-45.2); HEMOGLOBIN 13.6 GM/dL (10.7-15.3); LYMPH % 31.7 % (8-40); MCH 31.6 pg (25.7-33.7); MCHC 34.4 g/dl (32.0-36.0); MEAN CELL VOLUME 91.7 fl (80-96); MEAN PLT VOLUME 10.9 fl (7.5-11.1); MONO % 8.3 % (3.8-10.2); NEUT % 56.9 % (42.8-82.8); PLATELET COUNT 198 K/MM3 (134-434); RBC 4.29 M/mm3 (3.60-5.2); RDW 14.5 % (11.6-15.6); WHITE BLOOD COUNT 9.6 K/mm3 (4.0-10.0)
[2018-02-20 01:35] LABS: ALK PHOS 66 U/L (45-117); ANION GAP 10 MMOL/L (8-16); BILIRUBIN,TOTAL 0.8 mg/dL (0.2-1); BLOOD UREA NITROGEN 17 mg/dL (7-18); CALCIUM 8.2 mg/dL (8.5-10.1); CHLORIDE 104 mmol/L (98-107); CO2 28 mmol/L (21-32); CREATININE 1.1 mg/dL (0.55-1.3); GLUCOSE,RANDOM 259 mg/dL (74-106); LIPASE 110 U/L (73-393); POTASSIUM 3.7 mmol/L (3.5-5.1); SGOT/AST 20 U/L (15-37); SGPT/ALT 22 U/L (13-61); SODIUM 142 mmol/L (136-145); TOT PROT 6.2 g/dl (6.4-8.2)
[2018-02-20 02:44] VITALS: TEMP 98
[2018-02-20 03:56] VITALS: BP 136/65
--- NOTE | 2018-02-20 10:38 | EKG ---
Test Reason : Blood Pressure : / mmHG Vent. Rate : 073 BPM Atrial Rate : 073 BPM P-R Int : 226 ms QRS Dur : 092 ms QT Int : 446 ms P-R-T Axes : 020 -14 081 degrees QTc Int : 491 ms SINUS RHYTHM WITH 1ST DEGREE A-V BLOCK LEFT VENTRICULAR HYPERTROPHY WITH REPOLARIZATION ABNORMALITY CANNOT RULE OUT SEPTAL INFARCT , AGE UNDETERMINED ABNORMAL ECG WHEN COMPARED WITH ECG OF 29-JAN-2018 09:55, MINIMAL CRITERIA FOR SEPTAL INFARCT ARE NOW PRESENT Confirmed by Alexis Bhardwaj MD ([id number]) on 02/20/2018 10:38:24 AM Referred By: Confirmed By:Alexis Bhardwaj MD
[2018-02-22 08:07] VITALS: PULSE 87
== END 2018-02-20 04:15 | disposition home or self-care (01) ==
LOC: SUPCPDRO 22:57 → JER 22:57
PROC: 3E033GC Introduction of Other Therapeutic Substance into Peripheral Vein, Percutaneous Approach (ICD-10-PCS; principal; 2018-02-19)
DX: R11.2 Nausea with vomiting, unspecified (principal); I11.0 Hypertensive heart disease with heart failure; I50.9 Heart failure, unspecified; E11.9 Type 2 diabetes mellitus without complications; Z79.4 Long term (current) use of insulin; Z79.84 Long term (current) use of oral hypoglycemic drugs; E78.00 Pure hypercholesterolemia, unspecified; J44.9 Chronic obstructive pulmonary disease, unspecified; J45.909 Unspecified asthma, uncomplicated; E03.9 Hypothyroidism, unspecified; F03.90 Unspecified dementia, unspecified severity, without behavioral disturbance, psychotic disturbance, mood disturbance, and anxiety; Z85.828 Personal history of other malignant neoplasm of skin; K31.84 Gastroparesis
CPT/HCPCS: 36415; 71045-TC-FY; 76705-TC; 80053; 82009; 83690; 84484; 85025; 85610; 93005; 93010; 96374; 99281-25; 99284-25

== ENCOUNTER 2018-02-25 05:01 | Inpatient (IN) | payer OTHER ==
--- NOTE | 2018-02-25 06:04 | PDOC ---
Attending Attestation - Resident Resident Name: Vitor Peñaloza - ED Attending Attestation I have performed the following: I have examined & evaluated the patient, The case was reviewed & discussed with the resident, I agree w/resident's findings & plan - HPI HPI: 02/25/18 06:11 Pt comes with jaw pain and left arm pain and chest pain and nausea. - Physicial Exam PE: 02/25/18 06:12 Agree with resident exam - Medical Decision Making 02/25/18 06:12 Labs; EKG, cxr; and if all is well, pt can go home. 02/25/18 06:52 CBC, acetone, exam. CXR, and EKG are normal. 02/25/18 06:58 Pt will be given tylenol and maalox and zofran ODT. Once her labs are back she can be reevaluated.
--- NOTE | 2018-02-25 06:06 | PDOC ---
History of Present Illness - General Chief Complaint: Chest Pain Stated Complaint: ABD PAIN Time Seen by Provider: 02/25/18 05:32 History Source: Patient Exam Limitations: Language Barrier - History of Present Illness Initial Comments: 02/25/18 05:59 87 yo female pmh of IDDM, gastroparesis, CAD, COPD, hypothyroidsm and dementia BIBA for righ sided chest pain, RUQ pain and vomiting since 11 am this morning. Patient recently seen here for similar complaints, work up was negative and s/s determined to be likely due to gastroparesis. Pt is alone in the ED today and has dementia, likely at baseline according to prior notes. Pt does state the pain feels like pressure on the chest and radiates to her left jaw and left arm today. Denies f/c, changes in bowel or bladder habits. Past History - Past Medical History Allergies/Adverse Reactions: Allergies Allergy/AdvReac Type Severity Reaction Status Date / Time vancomycin AdvReac Itching Verified 02/25/18 05:13 Home Medications: Ambulatory Orders Unobtainable 02/25/18 Anemia: No Asthma: Yes Cancer: Yes (SKIN) Cardiac Disorders: Yes (MITRAL VALVE PROLAPSE) COPD: Yes CHF: Yes Dementia: Yes (early onset) Diabetes: Yes GI Disorders: Yes HTN: Yes Hypercholesterolemia: Yes Liver Disease: Yes (FATTY LIVER) Thyroid Disease: Yes - Surgical History Abdominal Surgery: Yes Cholecystectomy: Yes - Suicide/Smoking/Psychosocial Hx Smoking Status: Yes Smoking History: Never smoked Have you smoked in the past 12 months: No Number of Cigarettes Smoked Daily: 0 If you are a former smoker, when did you quit?: 1985 Cigars Per Day: 0 Information on smoking cessation initiated: No Hx Alcohol Use: No Drug/Substance Use Hx: No Substance Use Type: None Hx Substance Use Treatment: Yes Review of Systems - Review of Systems Constitutional: No: Chills, Fever Respiratory: No: Shortness of Breath Cardiac (ROS): Yes: Chest Pain (radiating to left jaw and arm) ABD/GI: Yes: Nausea, Vomiting. No: Constipated, Diarrhea : No: Burning, Dysuria, Frequency, Flank Pain Musculoskeletal: No: Back Pain *Physical Exam - Vital Signs Last Vital Signs Temp Pulse Resp BP Pulse Ox 97.6 F 68 18 141/54 L 97 02/25/18 05:13 02/25/18 05:41 02/25/18 05:13 02/25/18 05:13 02/25/18 05:41 - Physical Exam General Appearance: Yes: Nourished, Appropriately Dressed. No: Apparent Distress HEENT: positive: EOMI Respiratory/Chest: positive: Lungs Clear, Normal Breath Sounds Cardiovascular: positive: Regular Rhythm, Regular Rate, S1, S2. negative: Edema , JVD, Murmur Vascular Pulses: Dorsalis-Pedis (R): 3+, Doralis-Pedis (L): 3+ Gastrointestinal/Abdominal: positive: Normal Bowel Sounds, Tenderness (RUQ). negative: Pulsatile Mass, Distended, Guarding, Rebound Musculoskeletal: negative: CVA Tenderness Extremity: positive: Normal Capillary Refill Integumentary: positive: Normal Color, Dry, Warm Neurologic: positive: Alert, Normal Mood/Affect, Normal Response. negative: Fully Oriented (AOX2 baseline) Heart Score/ECG Review - History History: Highly suspicious - Electrocardiogram EKG: Normal - Age Age: >/= 65 - Risk Factors Risk Factors Heart Score: Yes Hx Hypercholesterolemia, Yes Hx Diabetes, Yes Hx Obesity Based on the list above the patient has:: >/=3 risk factors or Hx atherosclerotic disease - Troponin Troponin: </= normal limit - Score Heart Score - Total: 6 - ECG Intrepretation Rhythm: PVC(s) - [place]: Normal ED Treatment Course - LABORATORY CBC & Chemistry Diagram: 02/26/18 05:22 02/26/18 05:22 - RADIOLOGY Radiology Studies Ordered: Category Date Time Status CHEST X-RAY PORTABLE* [RAD] Stat Radiology 02/25/18 05:43 Ordered Medical Decision Making - Medical Decision Making 02/25/18 06:50 87 yo female CAD presents with right sided CP radiating to her jaw and left arm and RUQ pain with vomiting since 11 am today. Pts last visit was very similar in nature and work up completely negative. Pt has has had [address] scans since 2012 and 3 within the last 1 year without explanation of the vomiting. Pt has dementia but appears to be at baseline from my last experience with her. No family is present to corroborate her story. EKG shows PVCs not seen on prior but otherwise the same as past ekgs Vitals: WNL PE: see note Heart: s1 and s2 no murmurs, no pedal edema lungs: clear bilaterally Heart score 6 DDX: ACS, gastroparesis waiting for CMP and urine likely Tele obs for elevated heart score due to risk factors Sign out to Dr. Charles *DC/Admit/Observation/Transfer Diagnosis at time of Disposition: Chest pain, atypical - Discharge Dispostion Condition at time of disposition: Stable - Referrals - Patient Instructions - Post Discharge Activity
[2018-02-25 06:16] LABS: BASO % 1.2 % (0-2.0); EOS % 2.2 % (0-4.5); HEMOGLOBIN 13.9 GM/dL (10.7-15.3); LYMPH % 30.7 % (8-40); MCH 30.2 pg (25.7-33.7); MCHC 32.4 g/dl (32.0-36.0); MEAN CELL VOLUME 93.1 fl (80-96); MEAN PLT VOLUME 9.5 fl (7.5-11.1); MONO % 8.3 % (3.8-10.2); NEUT % 57.6 % (42.8-82.8); PLATELET COUNT 179 K/MM3 (134-434); RBC 4.62 M/mm3 (3.60-5.2); RDW 14.6 % (11.6-15.6); WHITE BLOOD COUNT 9.6 K/mm3 (4.0-10.0)
[2018-02-25 06:28] LABS: INR 1.08 (0.83-1.09); PROTHROMBIN TIME (PATIENT) 12.7 SEC (9.7-13.0)
[2018-02-25 06:56] LABS: ALBUMIN 3.3 g/dl (3.4-5.0); ALK PHOS 65 U/L (45-117); ANION GAP 7 MMOL/L (8-16); BLOOD UREA NITROGEN 9 mg/dL (7-18); CALCIUM 7.9 mg/dL (8.5-10.1); CHLORIDE 104 mmol/L (98-107); CO2 30 mmol/L (21-32); CREATININE 0.8 mg/dL (0.55-1.3); GLUCOSE,RANDOM 187 mg/dL (74-106); MAGNESIUM 1.3 mg/dL (1.8-2.4); POTASSIUM 3.9 mmol/L (3.5-5.1); SGOT/AST 23 U/L (15-37); SGPT/ALT 20 U/L (13-61); SODIUM 141 mmol/L (136-145); TOT PROT 6.6 g/dl (6.4-8.2)
[2018-02-25] MEDS ORDERED: ACETAMINOPHEN 325 MG TABLET (FP) PO ONE (06:56)
[2018-02-25] MEDS ORDERED: ONDANSETRON *ODT* 4 MG TABLET SL ONE (06:56)
[2018-02-25] MEDS ORDERED: MAG HYDROX/AL HYDROX/SIMETH 30 ML UNIT-DOSE CUP PO ONE (06:56)
[2018-02-25] MEDS ORDERED: MAG HYDROX/AL HYDROX/SIMETH 30 ML UNIT-DOSE CUP ONE (06:58)
[2018-02-25] MEDS ORDERED: ONDANSETRON *ODT* 4 MG TABLET ONE (06:58)
[2018-02-25] MEDS ORDERED: ACETAMINOPHEN 325 MG TABLET (FP) ONE (06:58)
[2018-02-25] MEDS ORDERED: POTASSIUM CHLORIDE TABS 20 MEQ TABLET.ER (FP) PO ONE ×2 (07:02→07:29)
[2018-02-25] MEDS ORDERED: MAGNESIUM SULF 50% (8.12 MEQ/2 ML-1 GM VIAL) IVPB ONE (07:02)
[2018-02-25] MEDS ORDERED: MAGNESIUM 1GM/D5W - 2 GM/200 ML IVPB IVPB ONE (07:30)
--- NOTE | 2018-02-25 07:33 | PDOC ---
*Physical Exam - Vital Signs Last Vital Signs Temp Pulse Resp BP Pulse Ox 97.6 F 70 18 141/54 L 99 02/25/18 05:13 02/25/18 06:05 02/25/18 05:13 02/25/18 05:13 02/25/18 06:05 - Physical Exam Comments: 02/25/18 07:27 GENERAL: Awake, alert, and fully oriented, in no acute distress HEAD: No signs of trauma, normocephalic, atraumatic EYES: PERRLA, EOMI, sclera anicteric, conjunctiva clear ENT: Hearing grossly normal, nares patent, oropharynx clear without exudates. Moist mucosa NECK: Normal ROM, supple, no lymphadenopathy, JVD, or masses LUNGS: No distress, speaks full sentences, clear to auscultation bilaterally HEART: Regular rate and rhythm, normal S1 and S2, no murmurs, rubs or gallops, peripheral pulses normal and equal bilaterally. ABDOMEN: + RUQ and epigastirc ttp. Soft, normoactive bowel sounds. No guarding , no rebound. No masses. Neg CVA ttp. EXTREMITIES : Normal inspection, Normal range of motion, no edema. No clubbing or cyanosis. SKIN: Warm, Dry, normal turgor, no rashes or lesions noted Heart Score/ECG Review - History History: Moderately suspicious - Electrocardiogram EKG: Non specific repolarization disturbance - Age Age: >/= 65 - Risk Factors Risk Factors Heart Score: Yes Hx Hypercholesterolemia, Yes Hx Diabetes, Yes Positive family hx of cardiac disease, Yes Hx Obesity Based on the list above the patient has:: >/=3 risk factors or Hx atherosclerotic disease - Troponin Troponin: </= normal limit - Score Heart Score - Total: 6 ED Treatment Course - LABORATORY CBC & Chemistry Diagram: 02/25/18 06:07 02/25/18 06:07 - ADDITIONAL ORDERS Additional order review: Laboratory Results 02/25/18 02/25/18 02/25/18 06:07 06:07 06:07 WBC RBC Hgb Hct MCV MCH MCHC RDW Plt Count MPV Absolute Neuts (auto) Neutrophils % Lymphocytes % Monocytes % Eosinophils % Basophils % Nucleated RBC % PT with INR 12.70 INR 1.08 Sodium 141 Potassium 3.9 Chloride 104 Carbon Dioxide 30 Anion Gap 7 L BUN 9 Creatinine 0.8 Creat Clearance w eGFR > 60 Random Glucose 187 H Calcium 7.9 L Magnesium 1.3 L Total Bilirubin 1.0 AST 23 ALT 20 Alkaline Phosphatase 65 Creatine Kinase 84 Troponin I 0.02 Total Protein 6.6 Albumin 3.3 L Acetone, Qual Negative L 02/25/18 06:07 WBC 9.6 RBC 4.62 Hgb 13.9 Hct 43.0 MCV 93.1 MCH 30.2 MCHC 32.4 RDW 14.6 Plt Count 179 MPV 9.5 D Absolute Neuts (auto) 5.5 Neutrophils % 57.6 Lymphocytes % 30.7 Monocytes % 8.3 Eosinophils % 2.2 Basophils % 1.2 Nucleated RBC % 0 PT with INR INR Sodium Potassium Chloride Carbon Dioxide Anion Gap BUN Creatinine Creat Clearance w eGFR Random Glucose Calcium Magnesium Total Bilirubin AST ALT Alkaline Phosphatase Creatine Kinase Troponin I Total Protein Albumin Acetone, Qual 02/25/18 06:07 RBC 4.62 MCV 93.1 MCHC 32.4 RDW 14.6 MPV 9.5 D Neutrophils % 57.6 Lymphocytes % 30.7 Monocytes % 8.3 Eosinophils % 2.2 Basophils % 1.2 - Medications Given in the ED: ED Medications Discontinued Medications Generic Name Dose Route Start Last Admin Trade Name Freq PRN Reason Stop Dose Admin Acetaminophen 650 mg 02/25/18 06:56 02/25/18 07:02 Tylenol - PO 02/25/18 06:57 650 mg ONCE ONE Administration Al Hydroxide/Mg Hydroxide 30 ml 02/25/18 06:56 02/25/18 07:02 Mylanta Oral Suspension - PO 02/25/18 06:57 30 ml ONCE ONE Administration Ondansetron HCl 4 mg 02/25/18 06:56 02/25/18 07:02 Zofran Odt - SL 02/25/18 06:57 4 mg ONCE ONE Administration Medical Decision Making - Medical Decision Making 02/25/18 07:25 87 yo F with h/o dementia, CAD, IDDM, hypothyroidism, gastroparesis, who p/w chronic RUQ abdominal pain and N/V. VSS, AF. +RUQ abdominal ttp. Prior CT AP with Simgoid diverticulosis, and RUQ U/S s/p choleycystectomy otherwise unremarkable. Patient with persistent nausea without vomitting, RUQ and acute onset of epigastria pain radiating to right sided jaw and shoulder x 2-3 hours, despite Maloox, Tylenol, Zofran. Denies F/C, SOB, palpitations, PND, orhtopnea, leg swelling. EKG similar to NSR with 1st degree AV block. PVC not seen on prior EKG's. Last EKG 02-19-18. CBC,CMP are unremarkable Trop negative. Recieved sign out from Dr. Peñaloza ED Course: Heart Score: 6 Plan to admit tele/obs 02/25/18 08:[address] Kathy Barnett answering service. Awaiting call back 02/25/18 09:[address] Kathy Barnett. Admitted tele/obs. Dr. Barnett reccomends nitro, patient now denies chest pain at this time. *DC/Admit/Observation/Transfer Diagnosis at time of Disposition: Chest pain, atypical - Discharge Dispostion Condition at time of disposition: Stable Decision to Admit order: Yes - Referrals - Patient Instructions - Post Discharge Activity
--- NOTE | 2018-02-25 11:52 | HP ---
Admitting History and Physical - Admission History of Present Illness: 02/25/18 07:25 87 yo F with h/o dementia, CAD, IDDM, hypothyroidism, gastroparesis, who p/w chronic RUQ abdominal pain and N/V. VSS, AF. +RUQ abdominal ttp. Prior CT AP with Simgoid diverticulosis, and RUQ U/S s/p choleycystectomy otherwise unremarkable. Patient with persistent nausea without vomitting, RUQ and acute onset of epigastria pain radiating to right sided jaw and shoulder x 2-3 hours, despite Maloox, Tylenol, Zofran. Denies F/C, SOB, palpitations, PND, orhtopnea, leg swelling. EKG similar to NSR with 1st degree AV block. PVC not seen on prior EKG's. Last EKG 02-19-18. CBC,CMP are unremarkable Trop negative. 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 2011 dobut MIBI: no STs ; moderate reversible defect anterior and lateral faith confounded by large breast shadow; nl EF -> pt didn't follow as outpt as planned (was on DATP for a little while). Echo 09/13: nl LVEF, nl RV, nl valve fxn), HTN, Hyperlipdemia Pulmonary: Yes: COPD Gastrointestinal: Yes: Constipation Heme/Onc: Yes: Cancer (thyroid) Endocrine: Yes: Diabetes Mellitus (insulin-dependent for years -> uncontrolled) , Hypothyroidism Dermatology: Yes: Cellulitis (in past, with chronic and intermittent edema) - Smoking History Smoking history: Never smoked Have you smoked in the past 12 months: No Aproximately how many cigarettes per day: 0 If you are a former smoker, when did you quit?: 1984 - Alcohol/Substance Use Hx Alcohol Use: No History of Substance Use: reports: None - Social History ADL: Family Assistance History of Recent Travel: No Home Medications - Allergies Allergies/Adverse Reactions: Allergies Allergy/AdvReac Type Severity Reaction Status Date / Time vancomycin AdvReac Itching Verified 02/25/18 05:13 - Home Medications Home Medications: Ambulatory Orders Unobtainable 02/25/18 Family Disease History - Family Disease History Family Disease History: Diabetes: Daughter Review of Systems - Review of Systems Cardiovascular: reports: Chest Pain, Shortness of Breath. denies: Palpitations Respiratory: reports: SOB, SOB on Exertion. denies: Cough Gastrointestinal: reports: Nausea, Vomiting. denies: Abdominal Pain, Diarrhea Genitourinary: reports: No Symptoms Physical Examination Vital Signs: Vital Signs Temperature 97.6 F 02/25/18 05:13 Pulse Rate 70 02/25/18 06:05 Respiratory Rate 18 02/25/18 05:13 Blood Pressure 141/54 L 02/25/18 05:13 O2 Sat by Pulse Oximetry (%) 99 02/25/18 06:05 Cardiovascular: Yes: S1, S2 Respiratory: Yes: Regular, CTA Bilaterally Gastrointestinal: Yes: Normal Bowel Sounds, Soft. No: Tenderness Edema: No Neurological: Yes: Alert, Oriented Labs: CBC, BMP 02/25/18 06:07 02/25/18 06:07 Problem List - Problems (1) Chest pain, atypical Assessment/Plan: -Follow Ce -Add nitro paste -Cardio consult -Resume meds Code(s): R07.89 - OTHER CHEST PAIN (2) Abdominal pain Assessment/Plan: -denies at this time -Gi follow up -Patient has had w/u in past Code(s): R10.9 - UNSPECIFIED ABDOMINAL PAIN (3) CAD (coronary artery disease) Assessment/Plan: -asa/statin/b-blockers Code(s): I25.10 - ATHSCL HEART DISEASE OF [place] CORONARY ARTERY W/O ANG PCTRS (4) COPD (chronic obstructive pulmonary disease) Assessment/Plan: -Nebs Code(s): J44.9 - CHRONIC OBSTRUCTIVE PULMONARY DISEASE, UNSPECIFIED (5) Diabetes Assessment/Plan: -Bgm and SS -A1c Code(s): E11.9 - TYPE 2 DIABETES MELLITUS WITHOUT COMPLICATIONS Assessment/Plan Acetaminophen [Tylenol .Regular Strength -] 650 mg PO Q4H PRN #20 tablet MDD 4 10/12/17 Albuterol 2.5/Ipratropium 0.5 [Duoneb -] 1 amp NEB Q4H PRN amp 02/02/18 Apixaban [Eliquis -] 2.5 mg PO BID tablet 02/02/18 Aspirin [ASA -] 81 mg PO DAILY tab.chew 02/02/18 Atorvastatin Ca [Lipitor] 80 mg PO HS tablet 02/02/18 Clotrimazole/Betamet Diprop [Lotrisone -] 1 applic TP BID tube 02/02/18 Insulin Sliding Scale [Novolog Vial Sliding Scale -] 1 vial SQ TIDAC units 05/21 Levothyroxine [Synthroid -] 25 mcg PO DAILY@0700 tablet 02/02/18 Levothyroxine [Synthroid -] 112 mcg PO DAILY@0700 tablet 02/02/18 Lisinopril [Prinivil] 2.5 mg PO DAILY tablet 02/02/18 Metoclopramide HCl [Reglan -] 10 mg PO BID tablet 02/02/18 Metoprolol Tartrate [Lopressor -] 25 mg PO BID tablet 02/02/18 Miconazole Nitrate [Monistat-7 -] 1 applic VG HS tube 02/02/18 Nitroglycerin 2% Paste [Nitro-Bid 2% Paste -] 0.5 inch TD Q6HPO packet Nystatin Ointment [Mycostatin Ointment -] 1 applic TP BID applic 02/02/18 Pantoprazole Sodium [Protonix -] 40 mg PO DAILY tablet.ec 02/02/18 Sitagliptin Phosphate [Januvia -] 100 mg PO DAILY@0700 ud 02/02/18 Sulfacetamide Sodium 10% [Bleph-10 Ophthalmic Solution -] 1 drop OS Q3H drops 02/02/18 metFORMIN HCL [Glucophage -] 1,000 mg PO BID@0700,1630 tablet 02/02/18
[2018-02-25] MEDS ORDERED: PANTOPRAZOLE SODIUM 40 MG VIAL IVPUSH SCH (12:00)
[2018-02-25] MEDS ORDERED: APIXABAN 5 MG TABLET PO ONE (13:25)
[2018-02-25] MEDS ORDERED: ASPIRIN COATED 81 MG TABLET.EC ONE (13:25)
[2018-02-25] MEDS ORDERED: NITROGLYCERIN 2% OINTMENT - 1GM PACKET TD ONE (13:25)
[2018-02-25] MEDS ORDERED: PANTOPRAZOLE SODIUM 40 MG/100 ML BAG IVPB ONE (13:26)
--- NOTE | 2018-02-25 13:33 | EKG ---
Test Reason : Blood Pressure : / mmHG Vent. Rate : 074 BPM Atrial Rate : 074 BPM P-R Int : 212 ms QRS Dur : 094 ms QT Int : 448 ms P-R-T Axes : - - 062 degrees QTc Int : 497 ms SINUS RHYTHM WITH 1ST DEGREE A-V BLOCK WITH OCCASIONAL PREMATURE VENTRICULAR COMPLEXES SEPTAL INFARCT (CITED ON OR BEFORE 19-FEB-2018) ABNORMAL ECG WHEN COMPARED WITH ECG OF 19-FEB-2018 23:21, PREMATURE VENTRICULAR COMPLEXES ARE NOW PRESENT Confirmed by LATANYA BOYCE MD ([id number]) on 02/25/2018 1:33:28 PM Referred By: Confirmed By:LATANYA BOYCE MD
[2018-02-25] MEDS: APIXABAN 2.5 MG TABLET PO SCH ×2 (13:36→23:31)
[2018-02-25] MEDS: ASPIRIN COATED 81 MG TABLET.EC PO SCH (13:36)
[2018-02-25] MEDS: POLYETHYLENE GLYCOL 3350 119 GM BTL PO SCH (13:37)
[2018-02-25] MEDS: METOPROLOL TARTRATE 25 MG TABLET (FP) PO SCH ×2 (13:37→23:31)
[2018-02-25] MEDS: NITROGLYCERIN 2% OINTMENT - 1GM PACKET TD SCH ×2 (13:37→18:08)
--- NOTE | 2018-02-25 14:41 | CON.CARD ---
Consult Consult Specialty:: Cardiology Referred by:: Dr. Barnett Reason for Consultation:: Chest pain - History of Present Illness Chief Complaint: chest pain History of Present Illness: 87 year-old woman with a PMHx of HTN, DM, HLD, CAD, s/p BMS to pLAD, BILLIE to pRCA , then 2010, BILLIE to OM1 (at that time the LAD and RCA stents were patent, residual 80-90% dist LAD small vessel and severe/diffuse dz small diag in 2012, COPD, gastroparesis, hypothyroidism and dementia recent admission on 01/27/2018 with coffee ground emesis with reported chest pain with elevated troponin c/w NSTEMI felt to be likely demand ischemia, treated medically as not a candidate for invasive treatment now admitted with chronic RUQ abdominal pain nausea, vomiting, epigastric pain radiating to R jaw and R shoulder Pt seen and examined in the ER in nad. states her pain is substernal, lower chest and epigastrum. denies sob, palpitations, pnd, orthopnea, LE edema. 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 2011 dobut MIBI: no STs ; moderate reversible defect anterior and lateral faith confounded by large breast shadow; nl EF -> pt didn't follow as outpt as planned (was on DATP for a little while). Echo 09/13: nl LVEF, nl RV, nl valve fxn), HTN, Hyperlipdemia Pulmonary: Yes: COPD Gastrointestinal: Yes: Constipation Endocrine: Yes: Diabetes Mellitus (insulin-dependent for years -> uncontrolled) , Hypothyroidism Dermatology: Yes: Cellulitis (in past, with chronic and intermittent edema) - Alcohol/Substance Use Hx Alcohol Use: No History of Substance Use: reports: None - Smoking History Smoking history: Never smoked Have you smoked in the past 12 months: No Aproximately how many cigarettes per day: 0 If you are a former smoker, when did you quit?: 1984 - Social History Usual Living Arrangement: With Spouse (who is on HD) ADL: Family Assistance History of Recent Travel: No Home Medications - Allergies Allergies/Adverse Reactions: Allergies Allergy/AdvReac Type Severity Reaction Status Date / Time vancomycin AdvReac Itching Verified 02/25/18 05:13 - Home Medications Home Medications: Ambulatory Orders Unobtainable 02/25/18 Family Disease History - Family Disease History Family Disease History: Diabetes: Daughter Review of Systems - Review of Systems Constitutional: denies: No Symptoms, Chills, Diaphoresis, Fever, Lethargy, Loss of Appetite, Malaise, Night Sweats, Unintentional Wgt. Loss, Weakness, Other Eyes: denies: No Symptoms, Blind Spots, Blurred Vision, Double Vision, Eye Pain , Floaters, Photophobia, Recent Change in Vision, Other HENT: denies: No Symptoms, Difficult Swallowing, Ear Discharge, Ear Pain, Epistaxis, Gingival Bleeding, Hearing Loss, Mouth Swelling, Nasal Congestion, Ocular Prosthesis, Throat Pain, Toothache, Ringing in Ears, Other Neck: denies: No Symptoms, Decreased ROM, Lumps, Pain on Movement, Stiffness, Swollen Glands, Tenderness, Other Cardiovascular: reports: Chest Pain. denies: No Symptoms, Edema, Palpitations, Shortness of Breath, Other Respiratory: denies: No Symptoms, Cough, Exercise Intolerance, Hemoptysis, Orthopnea, PND, Snoring, SOB, SOB on Exertion, Wheezing, Other Gastrointestinal: reports: Abdominal Pain, Nausea, Vomiting. denies: No Symptoms, Bloating, Constipation, Diarrhea, Dysphagia, Indigestion, Melena, Rectal Bleeding, Vomiting Blood, Other Genitourinary: denies: No Symptoms, Burning, Discharge, Dysuria, Flank Pain, Frequency, Hematuria, Incontinence, Lesions, Menses, Pain, Testicular Mass, Testicular Pain, Testicular Swelling, Urgency, Vaginal Bleeding, Other Breasts: denies: No Symptoms Reported, See HPI, Breast Implants, Discharge from Nipple, Lumps, Pain, Skin Changes, Other Musculoskeletal: denies: No Symptoms, Back Pain, Crepitus, Decreased ROM, Extremity Pain, Joint Pain, Joint Swelling, Muscle Pain, Muscle Cramps, Muscle Weakness, Other Integumentary: denies: No Symptoms, Blister, Bruising, Change in Color, Eczema, Erythema, Incision, Lesions, Lump, Pallor, Pruritis, Rash, Wound, Other Neurological: denies: No Symptoms, Change in LOC, Change in Speech, Confusion, Dizziness, Headache, Incoordination, Numbness, Parasthesia, Pre-Existing Deficit , Seizure, Syncope, Tremors, Unsteady Gait, Weakness, Other Endocrine: denies: No Symptoms, Excessive Sweating, Flushing, Increased Hunger, Increased Thirst, Intolerance to Cold, Intolerance to Heat, Unexplained Weight Gain, Unexplained Weight Loss, Other Hematology/Lymphatic: denies: No Symptoms, Easily Bruised, Excessive Bleeding, Swollen Glands, Other Psychiatric: denies: No Symptoms, Altered Sleep Pattern, Anxiety, Depression, Hallucinations, Panic, Paranoia, Suicidal, Other - Risk Factors Known Risk Factors: Yes: Age, Prior HI /Emb Stroke Vital Signs: Vital Signs Temperature 98.4 F 02/25/18 12:05 Pulse Rate 75 02/25/18 12:05 Respiratory Rate 16 02/25/18 12:05 Blood Pressure 149/82 02/25/18 12:05 O2 Sat by Pulse Oximetry (%) 97 02/25/18 12:05 Constitutional: Yes: No Distress, Calm, Obese Eyes: Yes: Conjunctiva Clear, EOM Intact HENT: Yes: Atraumatic, Normocephalic Neck: Yes: Supple, Trachea Midline Respiratory: Yes: Regular, Diminished. No: Rales, Rhonchi, SOB, Wheezes Gastrointestinal: Yes: Normal Bowel Sounds, Tenderness, Tenderness, Epigastrium Cardiovascular: Yes: Pulse Irregular. No: Regular Rate and Rhythm, Bradycardia , Tachycardia, Gallop, Rub, Varicosities JVD: No Carotid Bruit: No PMI: Non-Displaced Heart Sounds: Yes: S1, S2. No: Split S2, S3, S4, Clicks, Gallop, Rub, Bruit Murmur: No: Systolic Murmur, Diastolic Murmur Edema: No Peripheral Pulses WNL: Yes Neurological: Yes: Alert Psychiatric: Yes: Alert - Other Data Labs, Other Data: CBC, BMP 02/25/18 06:07 02/25/18 06:07 INR, PTT INR 1.08 (0.83-1.09) 02/25/18 06:07 Troponin, BNP 02/25/18 02/25/18 06:07 13:00 Troponin I 0.02 < 0.02 Troponin, BNP 02/25/18 02/25/18 06:07 13:00 Troponin I 0.02 < 0.02 nsr 74bpm, 1st deg avb, pvcs, septal infarct, no sig ST abnl Echo: Report Reviewed Imaging - Results Chest X-ray: Report Reviewed, Image Reviewed EKG: Report Reviewed, Image Reviewed Other: Report Reviewed, Image Reviewed Assessment/Plan 87 year-old woman with a PMHx of HTN, DM, HLD, CAD, s/p BMS to pLAD, BILLIE to pRCA , then 2009, BILLIE to OM1 (at that time the LAD and RCA stents were patent, residual 80-90% dist LAD small vessel and severe/diffuse dz small diag in 2011, COPD, gastroparesis, hypothyroidism and dementia recent admission on 01/27/2018 with coffee ground emesis with reported chest pain with elevated troponin c/w NSTEMI felt to be likely demand ischemia, treated medically as not a candidate for invasive treatment now admitted with chronic RUQ abdominal pain nausea, vomiting, epigastric pain radiating to R jaw and R shoulder states her pain is substernal, lower chest and epigastrum. denies sob, palpitations, pnd, orthopnea, LE edema. Chest pain-atypical, reproducible on exam h/o known CAD: s/p BMS to pLAD, BILLEI to pRCA, then 2009, BILLIE to OM1 (at that time the LAD and RCA stents were patent , residual 80-90% dist LAD small vessel and severe/diffuse dz small diag in 2011. -Recent admission recurrent angina with evidence of of NSTEMI: possible demand ischemia due to rapid afib with underline CAD. She was managed medically at that time as she is not a good candidate for invasive management -this admission unlikely ACS -cardiac enzymes wnl thus far, ekg no ischemia -Cont aspirin, atorvastatin. -cont metoprolol, was increased to 50 mg BID last admission, currently on 25mg bid, can uptitrate if BP tolerates -can add Imdur 30 mg daily. -she is on LUCAS-I -Echocardiogram 01/29/18 showed normal LV systolic function, mild valvular abnl -do not need to repeat echo this admission -would not pursue invasive work up at this time, would cont medical therapy -evaluate for other sources of pain Atrial fibrillation: paroxysmal atrial fibrillation of unknown duration. -currently NSR -can Increase metoprolol as above. -cont Eliquis 2.5 mg BID if safe from a GI standpoint -Monitor H+H
[2018-02-25] MEDS ORDERED: METOCLOPRAMIDE HCL 10 MG TABLET (FP) PO ONE (18:04)
[2018-02-25] MEDS: METOCLOPRAMIDE HCL 10 MG TABLET (FP) PO SCH (18:07)
[2018-02-25] MEDS: INSULIN SLIDING SCALE (NOVOLOG) 1 VIAL SQ SCH ×2 (18:08→23:32)
[2018-02-25] MEDS ORDERED: INSULIN (NOVOLOG) ASPART 100 UNITS/ML 10ML VIAL ONE (23:25)
[2018-02-25] MEDS: ATORVASTATIN CA 20 MG TABLET (FP) PO SCH (23:31)
[2018-02-25] MEDS: PANTOPRAZOLE 40 MG TABLET (FP) PO SCH (23:32)
[2018-02-26] MEDS ORDERED: NITROGLYCERIN 2% OINTMENT - 1GM PACKET TD ONE ×2 (00:11→06:40)
[2018-02-26] MEDS: NITROGLYCERIN 2% OINTMENT - 1GM PACKET TD SCH ×3 (00:47→14:12)
[2018-02-26 05:56] LABS: BASO % 0.4 % (0-2.0); EOS % 2.7 % (0-4.5); HEMATOCRIT 40.9 % (32.4-45.2); HEMOGLOBIN 13.3 GM/dL (10.7-15.3); LYMPH % 28.8 % (8-40); MCH 30.4 pg (25.7-33.7); MCHC 32.7 g/dl (32.0-36.0); MEAN CELL VOLUME 93.2 fl (80-96); MEAN PLT VOLUME 9.7 fl (7.5-11.1); MONO % 9.9 % (3.8-10.2); NEUT % 58.2 % (42.8-82.8); PLATELET COUNT 174 K/MM3 (134-434); RBC 4.39 M/mm3 (3.60-5.2); RDW 14.5 % (11.6-15.6); WHITE BLOOD COUNT 8.6 K/mm3 (4.0-10.0)
[2018-02-26 06:46] LABS: ALK PHOS 66 U/L (45-117); ANION GAP 6 MMOL/L (8-16); BILIRUBIN,TOTAL 1.2 mg/dL (0.2-1); BLOOD UREA NITROGEN 10 mg/dL (7-18); CALCIUM 8.1 mg/dL (8.5-10.1); CHLORIDE 104 mmol/L (98-107); CHOLESTEROL 168 mg/dL (50-200); CO2 31 mmol/L (21-32); CREATININE 0.8 mg/dL (0.55-1.3); GLUCOSE,RANDOM 248 mg/dL (74-106); HDL CHOLESTEROL 47 mg/dL (40-60); POTASSIUM 4.4 mmol/L (3.5-5.1); SGOT/AST 24 U/L (15-37); SGPT/ALT 19 U/L (13-61); SODIUM 141 mmol/L (136-145); TRIGLYCERIDES 148 mg/dL (0-150)
[2018-02-26] MEDS ORDERED: LEVOTHYROXINE NA 112 MCG TABLET (FP) PO SCH (07:00)
[2018-02-26] MEDS: INSULIN SLIDING SCALE (NOVOLOG) 1 VIAL SQ SCH ×4 (08:18→21:41)
[2018-02-26] MEDS: APIXABAN 2.5 MG TABLET PO SCH ×2 (09:24→21:40)
[2018-02-26] MEDS: QUINAPRIL HCL 5 MG TABLET (FP) PO SCH (09:24)
[2018-02-26] MEDS: ASPIRIN COATED 81 MG TABLET.EC PO SCH (09:24)
[2018-02-26] MEDS: METOCLOPRAMIDE HCL 10 MG TABLET (FP) PO SCH ×3 (09:24→17:08)
[2018-02-26] MEDS: PANTOPRAZOLE 40 MG TABLET (FP) PO SCH ×2 (09:25→21:40)
[2018-02-26] MEDS: METOPROLOL TARTRATE 25 MG TABLET (FP) PO SCH (09:25)
[2018-02-26] MEDS: POLYETHYLENE GLYCOL 3350 119 GM BTL PO SCH (10:11)
--- NOTE | 2018-02-26 10:52 | EKG ---
Test Reason : Blood Pressure : / mmHG Vent. Rate : 083 BPM Atrial Rate : 083 BPM P-R Int : 210 ms QRS Dur : 090 ms QT Int : 404 ms P-R-T Axes : 017 -08 041 degrees QTc Int : 474 ms SINUS RHYTHM WITH 1ST DEGREE A-V BLOCK CANNOT RULE OUT SEPTAL INFARCT ABNORMAL ECG WHEN COMPARED WITH ECG OF 25-FEB-2018 05:23, PREMATURE VENTRICULAR COMPLEXES ARE NO LONGER PRESENT Confirmed by CUCA MARQUEZ, SCOTTY ([id number]) on 02/26/2018 10:52:11 AM Referred By: KAROL CHAUDHARI Confirmed By:SCOTTY THURMAN MD
--- NOTE | 2018-02-26 11:32 | PN ---
Progress Note, Physician Chief Complaint: patient seen and examined in ER upset wants to go home no chest pain no sob no palpitations no abdominal pain - Current Medication List Current Medications: Active Medications Apixaban (Eliquis -) 2.5 mg PO BID [facility] Last Admin: 02/26/18 09:24 Dose: 2.5 mg Aspirin (Ecotrin -) 81 mg PO DAILY [facility] Last Admin: 02/26/18 09:24 Dose: 81 mg Atorvastatin Calcium (Lipitor -) 20 mg PO HS [facility] Last Admin: 02/25/18 23:31 Dose: 20 mg Insulin Aspart (Novolog Vial Sliding Scale -) 1 vial SQ ACHS [facility]; Protocol Last Admin: 02/26/18 08:18 Dose: 10 units Isosorbide Mononitrate (Imdur -) 30 mg PO DAILY [facility] Levothyroxine Sodium (Synthroid -) 112 mcg PO DAILY@0700 [facility] Last Admin: 02/26/18 06:59 Dose: 112 mcg Metoclopramide HCl (Reglan -) 5 mg PO TIDAC [facility] Last Admin: 02/26/18 09:24 Dose: 5 mg Metoprolol Tartrate (Lopressor -) 50 mg PO BID [facility] Nitroglycerin (Nitro-Bid 2% Paste -) 0.5 inch TD Q6HPO [facility] Last Admin: 02/26/18 06:59 Dose: 0.5 inch Pantoprazole Sodium (Protonix -) 40 mg PO BID [facility] Last Admin: 02/26/18 09:25 Dose: 40 mg Polyethylene Glycol (Miralax (For Daily Use) -) 17 gm PO DAILY [facility] Last Admin: 02/26/18 10:11 Dose: 17 gm Quinapril HCl (Accupril -) 2.5 mg PO DAILY [facility] Last Admin: 02/26/18 09:24 Dose: 2.5 mg - Objective Vital Signs: Vital Signs Temperature 98.4 F 02/25/18 12:05 Pulse Rate 77 02/26/18 07:00 Respiratory Rate 20 02/26/18 07:00 Blood Pressure 178/86 H 02/26/18 07:00 O2 Sat by Pulse Oximetry (%) 96 02/26/18 07:00 Neck: Yes: Trachea Midline Cardiovascular: Yes: Regular Rate and Rhythm, S1, S2 Respiratory: Yes: CTA Bilaterally Gastrointestinal: Yes: Normal Bowel Sounds, Soft Edema: No Neurological: Yes: Alert, Oriented Labs: CBC, BMP 02/26/18 05:22 02/26/18 05:22 INR, PTT INR 1.08 (0.83-1.09) 02/25/18 06:07 Problem List - Problems (1) Chest pain, atypical Assessment/Plan: CE 3 sets negative continue aspirin and atorvastatin,inc metoprolol to 50mg bid will down grade to med surg floor add imdur 30mg daily apprciate cardiology consult on quniapril as well Code(s): R07.89 - OTHER CHEST PAIN (2) Afib Assessment/Plan[facility] given inc BP eliquis bid h/h ok stable Code(s): I48.91 - UNSPECIFIED ATRIAL FIBRILLATION (3) CAD (coronary artery disease) Assessment/Plan: continue above meds Code(s): I25.10 - ATHSCL HEART DISEASE OF [place] CORONARY ARTERY W/O ANG PCTRS (4) Diabetes Assessment/Plan: hgbac noted 8.7 sliding scale endocrine consult Code(s): E11.9 - TYPE 2 DIABETES MELLITUS WITHOUT COMPLICATIONS Qualifiers: Diabetes mellitus type: type 2 (5) Gastroparesis due to DM Assessment/Plan: reglan AC gi consult Code(s): E11.43 - TYPE 2 DIABETES W DIABETIC AUTONOMIC (POLY)NEUROPATHY; K31.84 - GASTROPARESIS (6) Hypothyroid Assessment/Plan: tsh noted will increase synthroid to 125mcg Code(s): E03.9 - HYPOTHYROIDISM, UNSPECIFIED
[2018-02-26 13:00] LABS: MAGNESIUM 1.9 mg/dL (1.8-2.4)
[2018-02-26] MEDS ORDERED: INSULIN (NOVOLOG) ASPART 100 UNITS/ML 10ML VIAL ONE ×3 (13:07→17:09)
[2018-02-26] MEDS ORDERED: SULFACETAMIDE/PREDNISOLONE 0.2% OPTHALMIC SUSP 5 ML BOTTLE ONE (13:12)
[2018-02-26] MEDS: SULFACETAMIDE SODIUM 10% OPHTHALMIC DROPS 15 ML BOTTLE OS SCH ×4 (13:13→21:32)
[2018-02-26] MEDS ORDERED: NITROGLYCERIN 2% OINTMENT - 1GM PACKET TD PRN (14:12)
[2018-02-26] MEDS: ATORVASTATIN CA 20 MG TABLET (FP) PO SCH (21:40)
[2018-02-26] MEDS: METOPROLOL TARTRATE 50 MG TABLET (FP) PO SCH (21:40)
[2018-02-27] MEDS: SULFACETAMIDE SODIUM 10% OPHTHALMIC DROPS 15 ML BOTTLE OS SCH ×8 (00:35→20:43)
--- NOTE | 2018-02-27 00:45 | CONSULT ---
Consult Consult Specialty:: endocrine Referred by:: dr.annabi castellon Reason for Consultation:: diabetes mellitus \ neuropathy. hypothyroidism - History of Present Illness Chief Complaint: weak and nauseas History of Present Illness: 87 y female pmh,dm2,htn,hypothyroidism,gastroparesis,chf,copd,has had nausea and vomiting several times,weakness with difficulty using right arm and shoulder pain. 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 2011 dobut MIBI: no STs ; moderate reversible defect anterior and lateral faith confounded by large breast shadow; nl EF -> pt didn't follow as outpt as planned (was on DATP for a little while). Echo 09/13: nl LVEF, nl RV, nl valve fxn), HTN, Hyperlipdemia Pulmonary: Yes: COPD Gastrointestinal: Yes: Constipation Endocrine: Yes: Diabetes Mellitus (insulin-dependent for years -> uncontrolled) , Hypothyroidism Dermatology: Yes: Cellulitis (in past, with chronic and intermittent edema) - Alcohol/Substance Use Hx Alcohol Use: No History of Substance Use: reports: None - Smoking History Smoking history: Never smoked Have you smoked in the past 12 months: No Aproximately how many cigarettes per day: 0 If you are a former smoker, when did you quit?: 1984 - Social History Usual Living Arrangement: With Spouse (who is on HD) ADL: Family Assistance History of Recent Travel: No Home Medications - Allergies Allergies/Adverse Reactions: Allergies Allergy/AdvReac Type Severity Reaction Status Date / Time vancomycin AdvReac Itching Verified 02/25/18 05:13 - Home Medications Home Medications: Ambulatory Orders Unobtainable 02/25/18 Family Disease History - Family Disease History Family Disease History: Diabetes: Daughter Review of Systems - Review of Systems Constitutional: reports: Loss of Appetite, Weakness Eyes: reports: Blurred Vision HENT: reports: Difficult Swallowing, Hearing Loss, Throat Pain Neck: reports: Stiffness, Tenderness Cardiovascular: reports: Shortness of Breath Respiratory: reports: Exercise Intolerance, SOB, SOB on Exertion Gastrointestinal: reports: Bloating, Constipation Genitourinary: reports: Frequency Musculoskeletal: reports: Joint Swelling, Muscle Pain, Muscle Cramps, Muscle Weakness Integumentary: reports: Pruritis Neurological: reports: Numbness, Unsteady Gait, Weakness Endocrine: reports: Unexplained Weight Gain Physical Exam Vital Signs: Vital Signs Temperature 98.7 F 02/26/18 21:50 Pulse Rate 85 02/26/18 21:50 Respiratory Rate 20 02/26/18 21:50 Blood Pressure 144/83 02/26/18 21:50 O2 Sat by Pulse Oximetry (%) 95 02/26/18 17:57 Constitutional: Yes: Anxious Eyes: Yes: EOM Intact HENT: Yes: Normocephalic Neck: Yes: Trachea Midline, Thyromegaly Cardiovascular: Yes: Tachycardia, Pulse Irregular Respiratory: Yes: Rhonchi, SOB, Tachypnea, Wheezes Gastrointestinal: Yes: Abdomen, Obese ...Rectal Exam: Yes: Deferred Musculoskeletal: Yes: Joint Swelling, Muscle Pain Edema: LLE: 1+, RLE: 1+ Neurological: Yes: Alert, Oriented, Unsteady Gait, Weakness Labs: CBC, BMP 02/26/18 05:22 02/26/18 05:22 Problem List - Problems (1) Controlled diabetes mellitus with diabetic peripheral angiopathy without gangrene, with long-term current use of insulin Code(s): E11.51 - TYPE 2 DIABETES W DIABETIC PERIPHERAL ANGIOPATH W/O GANGRENE; Z79.4 - LINOLEUM LAYER (CURRENT) USE OF INSULIN (2) Type 2 diabetes mellitus with other circulatory complications Code(s): E11.59 - TYPE 2 DIABETES MELLITUS WITH OTH CIRCULATORY COMPLICATIONS (3) Chest pain, atypical Code(s): R07.89 - OTHER CHEST PAIN (4) Abdominal pain Code(s): R10.9 - UNSPECIFIED ABDOMINAL PAIN (5) Breast pain, left Code(s): N64.4 - MASTODYNIA (6) CAD (coronary artery disease) Code(s): I25.10 - ATHSCL HEART DISEASE OF [place] CORONARY ARTERY W/O ANG PCTRS Assessment/Plan Current Active Problems dm 2/ckd hypothyroidism angelo left shoulder mendez Chest pain, atypical (Acute) Controlled diabetes mellitus with diabetic peripheral angiopathy without gangrene, with long-term current use of insulin (Acute) Type 2 diabetes mellitus with other circulatory complications (Acute) Abnormal Lab Results 02/26/18 02/26/18 05:22 05:22 Anion Gap 6 L Random Glucose 248 H Hemoglobin A1c % 8.7 H Calcium 8.1 L Total Bilirubin 1.2 H Total Protein 6.0 L Albumin 3.0 L Laboratory Results - last 24 hr 02/26/18 02/26/18 02/26/18 05:22 05:22 05:22 WBC 8.6 RBC 4.39 Hgb 13.3 Hct 40.9 MCV 93.2 MCH 30.4 MCHC 32.7 RDW 14.5 Plt Count 174 MPV 9.7 Absolute Neuts (auto) 5.0 Neutrophils % 58.2 Lymphocytes % 28.8 Monocytes % 9.9 Eosinophils % 2.7 Basophils % 0.4 Nucleated RBC % 0 Sodium 141 Potassium 4.4 Chloride 104 Carbon Dioxide 31 Anion Gap 6 L BUN 10 Creatinine 0.8 Creat Clearance w eGFR > 60 POC Glucometer Random Glucose 248 H Hemoglobin A1c % 8.7 H Calcium 8.1 L Magnesium 1.9 Total Bilirubin 1.2 H AST 24 ALT 19 Alkaline Phosphatase 66 Creatine Kinase 73 Troponin I < 0.02 Total Protein 6.0 L Albumin 3.0 L Triglycerides 148 Cholesterol 168 Total LDL Cholesterol 100 HDL Cholesterol 47 02/26/18 02/26/18 02/26/18 08:12 13:20 17:05 WBC RBC Hgb Hct MCV MCH MCHC RDW Plt Count MPV Absolute Neuts (auto) Neutrophils % Lymphocytes % Monocytes % Eosinophils % Basophils % Nucleated RBC % Sodium Potassium Chloride Carbon Dioxide Anion Gap BUN Creatinine Creat Clearance w eGFR POC Glucometer [phone] 283.05903 Random Glucose Hemoglobin A1c % Calcium Magnesium Total Bilirubin AST ALT Alkaline Phosphatase Creatine Kinase Troponin I Total Protein Albumin Triglycerides Cholesterol Total LDL Cholesterol HDL Cholesterol 02/26/18 21:37 WBC RBC Hgb Hct MCV MCH MCHC RDW Plt Count MPV Absolute Neuts (auto) Neutrophils % Lymphocytes % Monocytes % Eosinophils % Basophils % Nucleated RBC % Sodium Potassium Chloride Carbon Dioxide Anion Gap BUN Creatinine Creat Clearance w eGFR POC Glucometer 224 Random Glucose Hemoglobin A1c % Calcium Magnesium Total Bilirubin AST ALT Alkaline Phosphatase Creatine Kinase Troponin I Total Protein Albumin Triglycerides Cholesterol Total LDL Cholesterol HDL Cholesterol plan: bgm qid novolog insulin doses levemir 25 units am levemir 10 units hs synthroid 125mcg daily
[2018-02-27 02:57] VITALS: BMI 38.5
[2018-02-27] MEDS: LEVOTHYROXINE NA 125 MCG TABLET (FP) PO SCH (06:29)
[2018-02-27] MEDS: METOCLOPRAMIDE HCL 10 MG TABLET (FP) PO SCH ×3 (06:29→18:15)
[2018-02-27] MEDS: INSULIN SLIDING SCALE (NOVOLOG) 1 VIAL SQ SCH ×4 (06:30→22:36)
[2018-02-27 07:17] LABS: BASO % 1.2 % (0-2.0); EOS % 2.7 % (0-4.5); HEMATOCRIT 40.5 % (32.4-45.2); HEMOGLOBIN 13.9 GM/dL (10.7-15.3); LYMPH % 23.5 % (8-40); MCH 31.7 pg (25.7-33.7); MCHC 34.3 g/dl (32.0-36.0); MEAN CELL VOLUME 92.5 fl (80-96); MEAN PLT VOLUME 9.4 fl (7.5-11.1); MONO % 9.6 % (3.8-10.2); PLATELET COUNT 199 K/MM3 (134-434); RBC 4.38 M/mm3 (3.60-5.2); RDW 14.7 % (11.6-15.6); WHITE BLOOD COUNT 9.3 K/mm3 (4.0-10.0)
--- NOTE | 2018-02-27 07:50 | CON.GI ---
Consult Consult Specialty:: GI Referred by:: md Anibal - History of Present Illness History of Present Illness: Patient is an 87 y/o female admitted several times in the past for same chief complaint of abdominal pain with nausea and vomiting. Currently denies nausea, vomiting, or abdominal pain. Patient was started on Protonix 40mg PO BID and Reglan 5mg 30min AC. 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 2011 dobut MIBI: no STs ; moderate reversible defect anterior and lateral faith confounded by large breast shadow; nl EF -> pt didn't follow as outpt as planned (was on DATP for a little while). Echo 09/13: nl LVEF, nl RV, nl valve fxn), HTN, Hyperlipdemia Pulmonary: Yes: COPD Gastrointestinal: Yes: Constipation ...: No Endocrine: Yes: Diabetes Mellitus (insulin-dependent for years -> uncontrolled) , Hypothyroidism Dermatology: Yes: Cellulitis (in past, with chronic and intermittent edema) - Alcohol/Substance Use Hx Alcohol Use: No History of Substance Use: reports: None - Smoking History Smoking history: Never smoked Have you smoked in the past 12 months: No Aproximately how many cigarettes per day: 0 If you are a former smoker, when did you quit?: 1984 - Social History Usual Living Arrangement: With Spouse (who is on HD) ADL: Family Assistance History of Recent Travel: No Home Medications - Allergies Allergies/Adverse Reactions: Allergies Allergy/AdvReac Type Severity Reaction Status Date / Time vancomycin AdvReac Itching Verified 02/25/18 05:13 - Home Medications Home Medications: Ambulatory Orders Unobtainable 02/25/18 Family Disease History - Family Disease History Family Disease History: Diabetes: Daughter Physical Exam-GI Vital Signs: Vital Signs Temperature 97.8 F 02/27/18 06:34 Pulse Rate 84 02/27/18 06:34 Respiratory Rate 20 02/27/18 06:34 Blood Pressure 161/58 L 02/27/18 06:34 O2 Sat by Pulse Oximetry (%) 95 02/27/18 05:54 Labs: CBC, BMP 02/27/18 06:30 INR, PTT INR 1.08 (0.83-1.09) 02/25/18 06:07 Home Medications Medication Instructions Recorded Unobtainable 02/25/18 Hepatic Panel Total Bilirubin 1.2 mg/dL (0.2-1) H 02/26/18 05:22 AST 24 U/L (15-37) 02/26/18 05:22 ALT 19 U/L (13-61) 02/26/18 05:22 Alkaline Phosphatase 66 U/L (45-117) 02/26/18 05:22 Albumin 3.0 g/dl (3.4-5.0) L 02/26/18 05:22 Current Medications Generic Name Dose Route Start Last Admin Trade Name Freq PRN Reason Stop Dose Admin Apixaban 2.5 mg 02/25/18 12:00 02/26/18 21:40 Eliquis - PO 2.5 mg BID LEXI Administration Aspirin 81 mg 02/25/18 12:00 02/26/18 09:24 Ecotrin - PO 81 mg DAILY LEXI Administration Atorvastatin Calcium 20 mg 02/25/18 22:00 02/26/18 21:40 Lipitor - PO 20 mg HS LEXI Administration Insulin Aspart 1 vial 02/25/18 16:30 02/27/18 06:30 Novolog Vial Sliding Scale - SQ 5 units ACHS LEXI Administration Protocol Isosorbide Mononitrate 30 mg 02/27/18 10:00 Imdur - PO DAILY LEXI Levothyroxine Sodium 125 mcg 02/27/18 07:00 02/27/18 06:29 Synthroid - PO 125 mcg DAILY@0700 LEXI Administration Metoclopramide HCl 5 mg 02/25/18 17:30 02/27/18 06:29 Reglan - PO 5 mg TIDAC LEXI Administration Metoprolol Tartrate 50 mg 02/26/18 11:23 02/26/18 21:40 Lopressor - PO 50 mg BID LEXI Administration Nitroglycerin 0.5 inch 02/26/18 14:12 Nitro-Bid 2% Paste - TD Q6H PRN FOR CHEST PAIN Pantoprazole Sodium 40 mg 02/25/18 22:00 02/26/18 21:40 Protonix - PO 40 mg BID LEXI Administration Polyethylene Glycol 17 gm 02/25/18 12:00 02/26/18 10:11 Miralax (For Daily Use) - PO 17 gm DAILY LEXI Administration Quinapril HCl 2.5 mg 02/26/18 10:00 02/26/18 09:24 Accupril - PO 2.5 mg DAILY LEXI Administration Sulfacetamide Sodium 1 drop 02/26/18 11:45 02/27/18 05:27 Bleph-10 Ophthalmic Solution - OS 1 drop Q3H LEXI Administration Problem List - Problems (1) Abdominal pain Assessment/Plan: r/o secondary to gastritis and hiatal hernia R> Protonix 40mg bid Reglan 5mg 30 min ac low fiber , lactose free diet Code(s): R10.9 - UNSPECIFIED ABDOMINAL PAIN Assessment/Plan PLAN: review med list Protonix 40mg PO BID Reglan 5mg PO 30min AC
[2018-02-27 08:51] LABS: ALK PHOS 72 U/L (45-117); ANION GAP 8 MMOL/L (8-16); BILIRUBIN,TOTAL 1.6 mg/dL (0.2-1); BLOOD UREA NITROGEN 13 mg/dL (7-18); CHLORIDE 107 mmol/L (98-107); CHOLESTEROL 172 mg/dL (50-200); CO2 25 mmol/L (21-32); GLUCOSE,RANDOM 289 mg/dL (74-106); HDL CHOLESTEROL 49 mg/dL (40-60); MAGNESIUM 1.9 mg/dL (1.8-2.4); POTASSIUM 4.3 mmol/L (3.5-5.1); SGOT/AST 17 U/L (15-37); SGPT/ALT 19 U/L (13-61); SODIUM 141 mmol/L (136-145); TOT PROT 6.2 g/dl (6.4-8.2); TRIGLYCERIDES 115 mg/dL (0-150)
[2018-02-27] MEDS: APIXABAN 2.5 MG TABLET PO SCH ×2 (09:54→22:35)
[2018-02-27] MEDS: PANTOPRAZOLE 40 MG TABLET (FP) PO SCH ×2 (09:54→22:35)
[2018-02-27] MEDS: ASPIRIN COATED 81 MG TABLET.EC PO SCH (09:54)
[2018-02-27] MEDS: ISOSORBIDE MONONITRATE 30 MG TAB.SR.24H (FP) PO SCH (09:54)
[2018-02-27] MEDS: METOPROLOL TARTRATE 50 MG TABLET (FP) PO SCH ×2 (09:54→22:35)
[2018-02-27] MEDS: QUINAPRIL HCL 5 MG TABLET (FP) PO SCH (09:55)
--- NOTE | 2018-02-27 11:26 | DS ---
Physical Examination Vital Signs: Vital Signs Temperature 99 F 02/27/18 09:00 Pulse Rate 80 02/27/18 09:00 Respiratory Rate 20 02/27/18 10:00 Blood Pressure 141/91 02/27/18 09:00 O2 Sat by Pulse Oximetry (%) 95 02/27/18 10:00 Findings/Remarks: 87 yo F with h/o dementia, CAD, IDDM, hypothyroidism, gastroparesis, who p/w chronic RUQ abdominal pain and N/V. VSS, AF. +RUQ abdominal ttp. Prior CT AP with Simgoid diverticulosis, and RUQ U/S s/p choleycystectomy otherwise unremarkable. Patient with persistent nausea without vomitting, RUQ and acute onset of epigastria pain radiating to right sided jaw and shoulder x 2-3 hours, despite Maloox, Tylenol, Zofran. Denies F/C, SOB, palpitations, PND, orhtopnea, leg swelling. EKG similar to NSR with 1st degree AV block. PVC not seen on prior EKG's. Last EKG 02-19-18. CBC,CMP are unremarkable Trop negative. Patient c/o chest pain denies any abdominal pain Constitutional: Yes: Well Nourished, No Distress, Calm Cardiovascular: Yes: Regular Rate and Rhythm Respiratory: Yes: Regular Gastrointestinal: Yes: Normal Bowel Sounds, Soft, Abdomen, Obese Musculoskeletal: Yes: WNL Extremities: Yes: WNL Edema: No Peripheral Pulses WNL: Yes Neurological: Yes: Alert, Oriented Psychiatric: Yes: Alert, Oriented Labs: CBC, BMP 02/27/18 06:30 02/27/18 06:30 Discharge Summary Reason For Visit: CHEST PAIN Current Active Problems Chest pain, atypical (Acute) Controlled diabetes mellitus with diabetic peripheral angiopathy without gangrene, with long-term current use of insulin (Acute) Type 2 diabetes mellitus with other circulatory complications (Acute) Hospital Course: Laboratory Last Values WBC 9.3 K/mm3 (4.0-10.0) 02/27/18 06:30 RBC 4.38 M/mm3 (3.60-5.2) 02/27/18 06:30 Hgb 13.9 GM/dL (10.7-15.3) 02/27/18 06:30 Hct 40.5 % (32.4-45.2) 02/27/18 06:30 MCV 92.5 fl (80-96) 02/27/18 06:30 MCH 31.7 pg (25.7-33.7) 02/27/18 06:30 MCHC 34.3 g/dl (32.0-36.0) 02/27/18 06:30 RDW 14.7 % (11.6-15.6) 02/27/18 06:30 Plt Count 199 K/MM3 (134-434) 02/27/18 06:30 MPV 9.4 fl (7.5-11.1) 02/27/18 06:30 Absolute Neuts (auto) 5.9 K/mm3 (1.5-8.0) 02/27/18 06:30 Neutrophils % 63.0 % (42.8-82.8) 02/27/18 06:30 Lymphocytes % 23.5 % (8-40) 02/27/18 06:30 Monocytes % 9.6 % (3.8-10.2) 02/27/18 06:30 Eosinophils % 2.7 % (0-4.5) 02/27/18 06:30 Basophils % 1.2 % (0-2.0) 02/27/18 06:30 Nucleated RBC % 0 % (0-0) 02/27/18 06:30 PT with INR 12.70 SEC (9.7-13.0) 02/25/18 06:07 INR 1.08 (0.83-1.09) 02/25/18 06:07 Sodium 141 mmol/L (136-145) 02/27/18 06:30 Potassium 4.3 mmol/L (3.5-5.1) 02/27/18 06:30 Chloride 107 mmol/L (98-107) 02/27/18 06:30 Carbon Dioxide 25 mmol/L (21-32) 02/27/18 06:30 Anion Gap 8 MMOL/L (8-16) 02/27/18 06:30 BUN 13 mg/dL (7-18) 02/27/18 06:30 Creatinine 1.0 mg/dL (0.55-1.3) 02/27/18 06:30 Creat Clearance w eGFR 52.57 (>60) 02/27/18 06:30 POC Glucometer 258 UNITS (80-120) 02/27/18 05:23 Random Glucose 289 mg/dL (74-106) H 02/27/18 06:30 Hemoglobin A1c % 8.7 % (4.2-6.3) H 02/26/18 05:22 Calcium 8.0 mg/dL (8.5-10.1) L 02/27/18 06:30 Magnesium 1.9 mg/dL (1.8-2.4) 02/27/18 06:30 Total Bilirubin 1.6 mg/dL (0.2-1) H 02/27/18 06:30 AST 17 U/L (15-37) 02/27/18 06:30 ALT 19 U/L (13-61) 02/27/18 06:30 Alkaline Phosphatase 72 U/L (45-117) 02/27/18 06:30 Creatine Kinase 73 IU/L (26-192) 02/26/18 05:22 Troponin I < 0.02 ng/ml (0.00-0.05) 02/26/18 05:22 Total Protein 6.2 g/dl (6.4-8.2) L 02/27/18 06:30 Albumin 3.0 g/dl (3.4-5.0) L 02/27/18 06:30 Triglycerides 115 mg/dL (0-150) 02/27/18 06:30 Cholesterol 172 mg/dL (50-200) 02/27/18 06:30 Total LDL Cholesterol 102 mg/dL (5-100) H 02/27/18 06:30 HDL Cholesterol 49 mg/dL (40-60) 02/27/18 06:30 TSH 2.68 uIU/ml (0.358-3.74) 02/25/18 13:00 Acetone, Qual Negative (NEGATIVE) L 02/25/18 06:07 Condition: Stable - Instructions Referrals: Harris Gross MD [Staff Physician] - Tyrell Back MD [Staff Physician] - Disposition: HOME - Home Medications Comprehensive Discharge Medication List: Ambulatory Orders Unobtainable 02/25/18
[2018-02-27] MEDS ORDERED: INSULIN (NOVOLOG) ASPART 100 UNITS/ML 10ML VIAL ONE (11:28)
[2018-02-27] MEDS: POLYETHYLENE GLYCOL 3350 119 GM BTL PO SCH (11:52)
--- NOTE | 2018-02-27 11:56 | CONSULT ---
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 2011 dobut MIBI: no STs ; moderate reversible defect anterior and lateral faith confounded by large breast shadow; nl EF -> pt didn't follow as outpt as planned (was on DATP for a little while). Echo 09/13: nl LVEF, nl RV, nl valve fxn), HTN, Hyperlipdemia Pulmonary: Yes: COPD Gastrointestinal: Yes: Constipation ...: No Endocrine: Yes: Diabetes Mellitus (insulin-dependent for years -> uncontrolled) , Hypothyroidism Dermatology: Yes: Cellulitis (in past, with chronic and intermittent edema) - Alcohol/Substance Use Hx Alcohol Use: No History of Substance Use: reports: None - Smoking History Smoking history: Never smoked Have you smoked in the past 12 months: No Aproximately how many cigarettes per day: 0 If you are a former smoker, when did you quit?: 1984 - Social History Usual Living Arrangement: With Spouse (who is on HD) ADL: Family Assistance History of Recent Travel: No Home Medications - Allergies Allergies/Adverse Reactions: Allergies Allergy/AdvReac Type Severity Reaction Status Date / Time vancomycin AdvReac Itching Verified 02/25/18 05:13 - Home Medications Home Medications: Ambulatory Orders Apixaban [Eliquis -] 2.5 mg PO BID tablet 02/27/18 Aspirin Coated [Ecotrin -] 81 mg PO DAILY tablet.ec 02/27/18 Atorvastatin Ca [Lipitor] 20 mg PO HS tablet 02/27/18 Insulin Detemir [Levemir Flextouch] 100 unit SQ BID #2 insuln.pen 02/27/18 Insulin Lispro [Humalog Kwikpen U-100] 100 unit SQ AC #1 insuln.pen 02/27/18 Insulin Sliding Scale [Novolog Vial Sliding Scale -] 1 vial SQ ACHS units 02/27 Isosorbide Mononitrate [Imdur -] 30 mg PO DAILY tab.sr.24h 02/27/18 Levothyroxine [Synthroid -] 125 mcg PO DAILY@0700 #30 tablet 02/27/18 Metoclopramide HCl [Reglan -] 5 mg PO TIDAC #90 tablet 02/27/18 Metoprolol Tartrate [Lopressor -] 50 mg PO BID tablet 02/27/18 Pantoprazole Sodium [Protonix -] 40 mg PO BID #60 tablet.ec 02/27/18 Pen Needle, Diabetic [Pen Needle] 1 each QID #150 dis.needle 02/27/18 Polyethylene Glycol 3350 [Miralax 119 gm Btl -] 17 gm PO DAILY bottle 02/27/18 Quinapril HCl [Accupril -] 2.5 mg PO DAILY tablet 02/27/18 Sulfacetamide Sodium 10% [Bleph-10 Ophthalmic Solution -] 1 drop OS Q3H drops 02/27/18 Family Disease History - Family Disease History Family Disease History: Diabetes: Daughter Physical Exam Vital Signs: Vital Signs Temperature 99 F 02/27/18 09:00 Pulse Rate 80 02/27/18 09:00 Respiratory Rate 20 02/27/18 10:00 Blood Pressure 141/91 02/27/18 09:00 O2 Sat by Pulse Oximetry (%) 95 02/27/18 10:00 Labs: CBC, BMP 02/27/18 06:30 02/27/18 06:30 Assessment/Plan patient has a red left eye with ectropion and some inflammation. there does not appear to be any infectious conjunctivitis present but good with blephamide eyedrops while she is in the hospital and will add maxitrol ointment BID to red area of conjunctiva on the everted left lower eyelid. Pt should be seen after discharge for a procedure to repair the malpositioned eyelid. Brian Goldberg ophthalmology
[2018-02-27] MEDS ORDERED: oxyCODONE HCL 5 MG TABLET PO ONE (18:34)
[2018-02-27] MEDS: LIDOCAINE 5% TOPICAL PATCH TP SCH (20:42)
[2018-02-27] MEDS: ATORVASTATIN CA 20 MG TABLET (FP) PO SCH (22:35)
[2018-02-27] MEDS: LIDOCAINE PATCH REMOVAL MC SCH (22:35)
[2018-02-27 22:44] LABS: URINE APPEARANCE CLOUDY; URINE BILIRUBIN NEGATIVE (<2.0 mg/dL); URINE COLOR DKYELLOW; URINE GLUCOSE (UA) 3+ (NEGATIVE); URINE KETONE 1+ (NEGATIVE); URINE LEUK ESTERASE 1+ (NEGATIVE); URINE NITRITE NEGATIVE (NEGATIVE); URINE PROTEIN 1+ (NEGATIVE)
[2018-02-27 22:53] LABS: EPI CELLS RARE /HPF (FEW); URINE BACTERIA RARE /hpf (NONE SEEN); URINE HYALINE CAST 1 /lpf; URINE MUCUS RARE
[2018-02-28] MEDS: SULFACETAMIDE SODIUM 10% OPHTHALMIC DROPS 15 ML BOTTLE OS SCH ×5 (00:15→21:40)
[2018-02-28] MEDS: INSULIN SLIDING SCALE (NOVOLOG) 1 VIAL SQ SCH ×3 (06:12→21:41)
[2018-02-28] MEDS: METOCLOPRAMIDE HCL 10 MG TABLET (FP) PO SCH ×2 (06:14→10:57)
[2018-02-28] MEDS: LEVOTHYROXINE NA 125 MCG TABLET (FP) PO SCH (06:14)
--- NOTE | 2018-02-28 09:16 | PN ---
Progress Note, Physician History of Present Illness: weakness - Current Medication List Current Medications: Active Medications Apixaban (Eliquis -) 2.5 mg PO BID [facility] Last Admin: 02/27/18 22:35 Dose: 2.5 mg Aspirin (Ecotrin -) 81 mg PO DAILY [facility] Last Admin: 02/27/18 09:54 Dose: 81 mg Atorvastatin Calcium (Lipitor -) 20 mg PO HS [facility] Last Admin: 02/27/18 22:35 Dose: 20 mg Insulin Aspart (Novolog Vial Sliding Scale -) 1 vial SQ ACHS [facility]; Protocol Last Admin: 02/28/18 06:12 Dose: 2 units Isosorbide Mononitrate (Imdur -) 30 mg PO DAILY [facility] Last Admin: 02/27/18 09:54 Dose: 30 mg Levothyroxine Sodium (Synthroid -) 125 mcg PO DAILY@0700 [facility] Last Admin: 02/28/18 06:14 Dose: 125 mcg Lidocaine (Lidoderm Patch -) 1 patch TP DAILY [facility] Last Admin: 02/27/18 20:42 Dose: 1 patch Metoclopramide HCl (Reglan -) 5 mg PO TIDAC [facility] Last Admin: 02/28/18 06:14 Dose: 5 mg Metoprolol Tartrate (Lopressor -) 50 mg PO BID [facility] Last Admin: 02/27/18 22:35 Dose: 50 mg Miscellaneous (Lidoderm Patch Removal) 1 each MC DAILY@2200 [facility] Last Admin: 02/27/18 22:35 Dose: Not Given Nitroglycerin (Nitro-Bid 2% Paste -) 0.5 inch TD Q6H PRN PRN Reason: FOR CHEST PAIN Pantoprazole Sodium (Protonix -) 40 mg PO BID [facility] Last Admin: 02/27/18 22:35 Dose: 40 mg Polyethylene Glycol (Miralax (For Daily Use) -) 17 gm PO DAILY [facility] Last Admin: 02/27/18 11:52 Dose: 17 gm Quinapril HCl (Accupril -) 2.5 mg PO DAILY [facility] Last Admin: 02/27/18 09:55 Dose: 2.5 mg Sulfacetamide Sodium (Bleph-10 Ophthalmic Solution -) 1 drop OS Q3H [facility] Last Admin: 02/28/18 09:14 Dose: 1 drop - Objective Vital Signs: Vital Signs Temperature 98.3 F 02/28/18 05:53 Pulse Rate 76 02/28/18 05:53 Respiratory Rate 20 02/28/18 05:53 Blood Pressure 144/75 02/28/18 05:53 O2 Sat by Pulse Oximetry (%) 96 02/28/18 04:26 Cardiovascular: Yes: S1, S2 Respiratory: Yes: Regular, CTA Bilaterally Gastrointestinal: Yes: Normal Bowel Sounds, Soft Neurological: Yes: Alert, Unsteady Gait, Weakness Labs: CBC, BMP 02/27/18 06:30 02/27/18 06:30 INR, PTT INR 1.08 (0.83-1.09) 02/25/18 06:07 Problem List - Problems (1) Chest pain, atypical Code(s): R07.89 - OTHER CHEST PAIN (2) Abdominal pain Code(s): R10.9 - UNSPECIFIED ABDOMINAL PAIN (3) CAD (coronary artery disease) Code(s): I25.10 - ATHSCL HEART DISEASE OF [place] CORONARY ARTERY W/O ANG PCTRS (4) COPD (chronic obstructive pulmonary disease) Code(s): J44.9 - CHRONIC OBSTRUCTIVE PULMONARY DISEASE, UNSPECIFIED (5) Diabetes Code(s): E11.9 - TYPE 2 DIABETES [place] WITHOUT COMPLICATIONS Qualifiers: Diabetes mellitus type: type 2 Assessment/Plan - Problems (1) Chest pain, atypical Assessment/Plan: CE 3 sets negative continue aspirin and atorvastatin,inc metoprolol to 50mg bid add imdur 30mg daily apprciate cardiology consult on quniapril as well Code(s): R07.89 - OTHER CHEST PAIN (2) Afib Assessment/Plan: paroxysmal afib currently in [facility] metoprolol to 50mg bid given inc BP eliquis bid h/h ok stable Code(s): I48.91 - UNSPECIFIED ATRIAL FIBRILLATION (3) CAD (coronary artery disease) Assessment/Plan: continue above meds Code(s): I25.10 - ATHSCL HEART DISEASE OF [place] CORONARY ARTERY W/O ANG PCTRS (4) Diabetes Assessment/Plan: hgbac noted 8.7 sliding scale endocrine consult Code(s): E11.9 - TYPE 2 DIABETES [place] WITHOUT COMPLICATIONS Qualifiers: Diabetes mellitus type: type 2 (5) Gastroparesis due to DM Assessment/Plan: reglan AC gi consult Code(s): E11.43 - TYPE 2 DIABETES W DIABETIC AUTONOMIC (POLY)NEUROPATHY; K31.84 - GASTROPARESIS (6) Hypothyroid Assessment/Plan: tsh noted will increase synthroid to 125mcg Code(s): E03.9 - HYPOTHYROIDISM, UNSPECIFIED (7) Weakness Assessment/Plan: labs ct of head ordered
[2018-02-28] MEDS ORDERED: methylPREDNISolone ACET (DEPO) 80 MG/1 ML VIAL IAR ONE (09:29)
--- NOTE | 2018-02-28 09:29 | CONSULT ---
Consult - text type - Consultation Consultation Note: FULL CONSULT DICTATED IMP: BURSITIS LEFT SHOULDER PLAN: I'VE ORDERED CORTISONE AND LIDOCAINE TO THE FLOOR FOR INJECTION, NSAIDS
[2018-02-28] MEDS ORDERED: INSULIN (NOVOLOG) ASPART 100 UNITS/ML 10ML VIAL ONE ×2 (10:52→21:00)
[2018-02-28] MEDS: APIXABAN 2.5 MG TABLET PO SCH ×2 (10:58→21:37)
[2018-02-28] MEDS: METOPROLOL TARTRATE 50 MG TABLET (FP) PO SCH ×2 (10:58→21:37)
[2018-02-28] MEDS: PANTOPRAZOLE 40 MG TABLET (FP) PO SCH ×2 (10:58→21:37)
--- NOTE | 2018-02-28 10:58 | CONS ---
DATE OF CONSULTATION: 02/28/2018 ORTHOPEDIC CONSULTATION/[facility] Patient is an 87-year-old female who was admitted to the hospital for unrelated conditions to her orthopedic complaints, complaining now of left shoulder pain, no specific fall or trauma. Patient denies any recent fall or trauma. She is now complaining of left shoulder pain for the past 1 day. Her past medical history is significant for history of insulin-dependent diabetes, dementia, coronary artery disease. She was admitted for atypical chest pain, which is in the process of being worked up. PHYSICAL EXAMINATION: She has diffuse tenderness around the shoulder, no ecchymosis or erythema. She has passive range of motion with forward flexion up to about 140, external rotation about 50, internal rotation lacks about 3 levels. She does have dull pain with doing any of the passive range of motion, but no crepitus is palpable noticed in the clavicle, AC joint, and acromion, bicipital groove. Good range of motion left elbow, wrist, and fingers. IMAGING: X-rays of the left shoulder showed no fracture, dislocation, lytic or blastic lesions. IMPRESSION: Left shoulder pain, nonspecific etiology, possible somewhat bursitis or she was sleeping on it or irritated it in some way. I therefore would recommend a injection into the shoulder, warm soaks, anti-inflammatories. I have ordered the cortisone for the floor, so, we can do it later today or tomorrow. After patient is optimized medically, she can go home. We can follow the patient as an outpatient. MOR WALLER M.D. [id number]
[2018-02-28] MEDS: ASPIRIN COATED 81 MG TABLET.EC PO SCH (10:59)
[2018-02-28] MEDS: ISOSORBIDE MONONITRATE 30 MG TAB.SR.24H (FP) PO SCH (10:59)
[2018-02-28] MEDS: POLYETHYLENE GLYCOL 3350 119 GM BTL PO SCH (11:00)
[2018-02-28] MEDS: QUINAPRIL HCL 5 MG TABLET (FP) PO SCH (11:00)
[2018-02-28] MEDS: LIDOCAINE 5% TOPICAL PATCH TP SCH (11:00)
[2018-02-28 11:18] LABS: ALBUMIN 2.7 g/dl (3.4-5.0); ALK PHOS 65 U/L (45-117); ANION GAP 7 MMOL/L (8-16); BILIRUBIN,TOTAL 1.8 mg/dL (0.2-1); BLOOD UREA NITROGEN 16 mg/dL (7-18); CALCIUM 7.9 mg/dL (8.5-10.1); CHLORIDE 107 mmol/L (98-107); CO2 26 mmol/L (21-32); CREATININE 0.8 mg/dL (0.55-1.3); GLUCOSE,RANDOM 265 mg/dL (74-106); POTASSIUM 4.7 mmol/L (3.5-5.1); SGOT/AST 23 U/L (15-37); SGPT/ALT 18 U/L (13-61); SODIUM 140 mmol/L (136-145); TOT PROT 5.9 g/dl (6.4-8.2)
[2018-02-28 11:23] LABS: BASO % 0.5 % (0-2.0); HEMOGLOBIN 13.2 GM/dL (10.7-15.3); LYMPH % 22.2 % (8-40); MCH 30.4 pg (25.7-33.7); MCHC 32.2 g/dl (32.0-36.0); MEAN CELL VOLUME 94.4 fl (80-96); MEAN PLT VOLUME 9.5 fl (7.5-11.1); MONO % 9.3 % (3.8-10.2); PLATELET COUNT 165 K/MM3 (134-434); RBC 4.34 M/mm3 (3.60-5.2); RDW 14.6 % (11.6-15.6)
--- NOTE | 2018-02-28 11:43 | EKG ---
Test Reason : Blood Pressure : / mmHG Vent. Rate : 054 BPM Atrial Rate : 054 BPM P-R Int : 254 ms QRS Dur : 092 ms QT Int : 470 ms P-R-T Axes : 021 -06 008 degrees QTc Int : 445 ms SINUS BRADYCARDIA WITH 1ST DEGREE A-V BLOCK OTHERWISE NORMAL ECG WHEN COMPARED WITH ECG OF 26-FEB-2018 09:56, VENT. RATE HAS DECREASED BY 29 BPM NONSPECIFIC T WAVE ABNORMALITY NO LONGER EVIDENT IN LATERAL LEADS Confirmed by ANA MURRELL MD ([id number]) on 02/28/2018 11:43:11 AM Referred By: REY CHAUDHARI Confirmed By:ANA MURRELL MD
[2018-02-28] MEDS ORDERED: cefTRIAXone SODIUM 1 GM VIAL ONE (14:35)
[2018-02-28] MEDS: CEFTRIAXONE 1 GM in DEXTROSE 5%-WATER - 50 ML IVPB SCH (14:40)
[2018-02-28] MEDS ORDERED: oxyCODONE HCL 5 MG TABLET PO ONE (18:18)
[2018-02-28] MEDS: ATORVASTATIN CA 20 MG TABLET (FP) PO SCH (21:37)
[2018-02-28] MEDS: LIDOCAINE PATCH REMOVAL MC SCH (21:48)
[2018-02-28] MEDS: NITROGLYCERIN 2% OINTMENT - 1GM PACKET TD PRN ×2 (22:05→22:29)
[2018-03-01] MEDS: SULFACETAMIDE SODIUM 10% OPHTHALMIC DROPS 15 ML BOTTLE OS SCH ×8 (01:50→21:42)
[2018-03-01] MEDS: METOCLOPRAMIDE HCL 10 MG TABLET (FP) PO SCH ×3 (06:27→16:58)
[2018-03-01] MEDS: INSULIN SLIDING SCALE (NOVOLOG) 1 VIAL SQ SCH ×4 (06:27→21:38)
[2018-03-01] MEDS: LEVOTHYROXINE NA 125 MCG TABLET (FP) PO SCH (06:28)
[2018-03-01] MEDS ORDERED: PT OWN MED DRAWER 7, Y5N ONE ×3 (09:49→21:11)
[2018-03-01] MEDS ORDERED: cefTRIAXone SODIUM 1 GM VIAL ONE (09:49)
[2018-03-01] MEDS ORDERED: DEXTROSE 5%-WATER - 50 ML IVPB ONE (09:49)
[2018-03-01] MEDS: LIDOCAINE 5% TOPICAL PATCH TP SCH (09:55)
[2018-03-01] MEDS: APIXABAN 2.5 MG TABLET PO SCH ×2 (09:55→21:39)
[2018-03-01] MEDS: PANTOPRAZOLE 40 MG TABLET (FP) PO SCH ×2 (09:55→21:39)
[2018-03-01] MEDS: ISOSORBIDE MONONITRATE 30 MG TAB.SR.24H (FP) PO SCH (09:56)
[2018-03-01] MEDS: QUINAPRIL HCL 5 MG TABLET (FP) PO SCH (09:56)
[2018-03-01] MEDS: POLYETHYLENE GLYCOL 3350 119 GM BTL PO SCH (09:56)
[2018-03-01] MEDS: METOPROLOL TARTRATE 50 MG TABLET (FP) PO SCH ×2 (09:56→21:39)
[2018-03-01] MEDS ORDERED: LIDOCAINE HCL 1%, 10 MG/ML (20ML VIAL) ONE (10:10)
--- NOTE | 2018-03-01 10:17 | PN ---
Progress Note (short form) - Note Progress Note: Pt seen and examined. She would like and consents for a cortisone injection into the left shoulder. Risks, benefits, alternatives explained in both Croatian and Czech. Under sterile conditions I injected 80mg DepoMedrol and 3cc 1% Lidocaine into the left shoulder subacromial space. No complications. Will follow. Can DC from an orthopedic POV and F/U as an out pt PRN
[2018-03-01] MEDS: CEFTRIAXONE 1 GM in DEXTROSE 5%-WATER - 50 ML IVPB SCH (10:28)
[2018-03-01] MEDS ORDERED: INSULIN (NOVOLOG) ASPART 100 UNITS/ML 10ML VIAL ONE ×2 (11:31→16:56)
--- NOTE | 2018-03-01 11:55 | PN ---
Progress Note, Physician Chief Complaint: AMS Abdominal pain History of Present Illness: NAD in bed Patient was to be discharged on 02/27/18, which was cancelled due to patient complaining of left shoulder and abdominal pain. received left shoulder corticosteroid injection U/S abdomen showed fatty liver vs hepatocellular disease. However, liver enzymes are negative. UC: Microbiology 02/27/18 22:00 Urine - Urine - Catheterized Urine Culture - Preliminary Lactose Fermenting Neg Bacilli BC pending Started on Ceftriaxone afebrile CT head negative for acute infarct - Current Medication List Current Medications: Active Medications Apixaban (Eliquis -) 2.5 mg PO BID [facility] Last Admin: 03/01/18 09:55 Dose: 2.5 mg Atorvastatin Calcium (Lipitor -) 20 mg PO HS [facility] Last Admin: 02/28/18 21:37 Dose: 20 mg Ceftriaxone Sodium 1 gm/ (Dextrose) 50 mls @ 100 mls/hr IVPB DAILY [facility]; Protocol Last Admin: 03/01/18 10:28 Dose: 100 mls/hr Insulin Aspart (Novolog Vial Sliding Scale -) 1 vial SQ ACHS [facility]; Protocol Last Admin: 03/01/18 11:47 Dose: 2 units Isosorbide Mononitrate (Imdur -) 30 mg PO DAILY [facility] Last Admin: 03/01/18 09:56 Dose: 30 mg Levothyroxine Sodium (Synthroid -) 125 mcg PO DAILY@0700 [facility] Last Admin: 03/01/18 06:28 Dose: 125 mcg Lidocaine (Lidoderm Patch -) 1 patch TP DAILY [facility] Last Admin: 03/01/18 09:55 Dose: 1 patch Metoclopramide HCl (Reglan -) 5 mg PO TIDAC [facility] Last Admin: 03/01/18 11:45 Dose: 5 mg Metoprolol Tartrate (Lopressor -) 50 mg PO BID [facility] Last Admin: 03/01/18 09:56 Dose: 50 mg Miscellaneous (Lidoderm Patch Removal) 1 each MC DAILY@2200 [facility] Last Admin: 02/28/18 21:48 Dose: 1 each Nitroglycerin (Nitro-Bid 2% Paste -) 0.5 inch TD Q6H PRN PRN Reason: FOR CHEST PAIN Last Admin: 02/28/18 22:29 Dose: 0.5 inch Pantoprazole Sodium (Protonix -) 40 mg PO BID [facility] Last Admin: 03/01/18 09:55 Dose: 40 mg Polyethylene Glycol (Miralax (For Daily Use) -) 17 gm PO DAILY [facility] Last Admin: 03/01/18 09:56 Dose: 17 gm Quinapril HCl (Accupril -) 2.5 mg PO DAILY [facility] Last Admin: 03/01/18 09:56 Dose: 2.5 mg Sulfacetamide Sodium (Bleph-10 Ophthalmic Solution -) 1 drop OS Q3H [facility] Last Admin: 03/01/18 11:48 Dose: 1 drop - Objective Vital Signs: Vital Signs Temperature 98.6 F 03/01/18 06:00 Pulse Rate 70 03/01/18 06:00 Respiratory Rate 20 03/01/18 06:00 Blood Pressure 154/68 03/01/18 06:00 O2 Sat by Pulse Oximetry (%) 96 03/01/18 03:00 Constitutional: Yes: Well Nourished, No Distress, Calm Cardiovascular: Yes: Regular Rate and Rhythm Respiratory: Yes: Regular Gastrointestinal: Yes: Normal Bowel Sounds, Soft, Abdomen, Obese, Tenderness ( diffuse) Musculoskeletal: Yes: Muscle Weakness Labs: CBC, BMP 02/28/18 10:07 02/28/18 09:15 INR, PTT INR 1.08 (0.83-1.09) 02/25/18 06:07 Problem List - Problems (1) Chest pain, atypical Assessment/Plan: -seen by cardiology -Atypical -trops negative Code(s): R07.89 - OTHER CHEST PAIN (2) Abdominal pain Assessment/Plan: -2/2 to UTI? -Abd U/S shows possible hepatocellular disease vs Fatty liver -UC + for UTI: Microbiology 02/28/18 14:10 Blood - Peripheral Venous Blood Culture - Preliminary NO GROWTH OBTAINED AFTER 24 HOURS, INCUBATION TO CONTINUE FOR 4 DAYS. 02/28/18 14:10 Blood - Peripheral Venous Blood Culture - Preliminary NO GROWTH OBTAINED AFTER 24 HOURS, INCUBATION TO CONTINUE FOR 4 DAYS. 02/27/18 22:00 Urine - Urine - Catheterized Urine Culture - Preliminary Lactose Fermenting Neg Bacilli -Seen by GI -On low fiber, lactose free diet -Pantoprazole 40 mg po bid -Reglan 5 mg AC Code(s): R10.9 - UNSPECIFIED ABDOMINAL PAIN (3) Afib Assessment/Plan: -chronic -rate controlled -On Eliquis 2.5 mg po bid Code(s): I48.91 - UNSPECIFIED ATRIAL FIBRILLATION (4) Diabetes Assessment/Plan: -A1C 8.7 -BGM AC HS -Diabetic diet -Endocrinology consult -Insulin: Sliding scale -Start Januvia to avoid any GI effects from Metformin -RD consult Code(s): E11.9 - TYPE 2 DIABETES MELLITUS WITHOUT COMPLICATIONS Qualifiers: Diabetes mellitus type: type 2 (5) Shoulder pain, left Assessment/Plan: -Seen by Orthopedic surgery -Received Corticosteroid injection Code(s): M25.512 - PAIN IN LEFT SHOULDER (6) UTI (urinary tract infection) Assessment/Plan: -UC final pending: Microbiology 02/28/18 14:10 Blood - Peripheral Venous Blood Culture - Preliminary NO GROWTH OBTAINED AFTER 24 HOURS, INCUBATION TO CONTINUE FOR 4 DAYS. 02/28/18 14:10 Blood - Peripheral Venous Blood Culture - Preliminary NO GROWTH OBTAINED AFTER 24 HOURS, INCUBATION TO CONTINUE FOR 4 DAYS. 02/27/18 22:00 Urine - Urine - Catheterized Urine Culture - Preliminary Lactose Fermenting Neg Bacilli -Seen by ID -On IV ceftriaxone 1g daily Code(s): N39.0 - URINARY TRACT INFECTION, SITE NOT SPECIFIED Qualifiers: Urinary tract infection type: site unspecified Hematuria presence: without hematuria Qualified Code(s): N39.0 - Urinary tract infection, site not specified (7) Hypothyroid Assessment/Plan: -Synthroid adjusted to 125 mcg po daily -repeat Thyroid profile in 4 weeks Code(s): E03.9 - HYPOTHYROIDISM, UNSPECIFIED Assessment/Plan see problem list Physical therapy
--- NOTE | 2018-03-01 21:21 | CONSULT ---
Consult - text type - Consultation Consultation Note: NEUROLOGY CONSULTATION is greatly appreciated: This 87 yo RH woman with h/o DM, Hypothyroidism, ASHD, AFib, COPD and "dementia " is maintained on Eliquis, ASA, Lipitor, Insulins, L-Thyroxine, Isordil, metoclopramide, metoprolol, pantoprazole, and quinipril. Chronic episodic nausea and vomiting attributed to Diabetic gastroparesis. Admitted 04/27/17 with chest pain radiating to the arm with SOB. CT of head (reviewed): Mild, diffuse atrophy. TSH=3.18. Urinary WBC=39 ABEL: Obese. No bruits. No head trauma. In diaper NEURO: Awake, alert, cooperative. Ox [facility]. February. No year. No president. + Glabella, snout. Fluent speech in Tu[place]. Full clifford. No facial weakness. Gag OK No drift or tremor. Normal strength. Areflexic in legs. Plantars silent. Reduced vib to the ankles. No FTN dystaxia Gait refused by patient (hasn't walked this admission according to staff). IMP: Moderately severe, B/L cerebral dysfunction (OMS/chronic) Diabetic Peripheral Neuropathy SUGGEST: Check B12, RPR. Repeat UA and Rx for UTI if indicated. Out of bed to chair TID for meals and PT for gait safety with walker. May benefit from short term rehab and PT. Try Donepezil 5 mg PO q AM for memory. Thank you very much, Thomas Fairbanks MD
[2018-03-01] MEDS: ATORVASTATIN CA 20 MG TABLET (FP) PO SCH (21:39)
[2018-03-01] MEDS: LIDOCAINE PATCH REMOVAL MC SCH (21:39)
[2018-03-02] MEDS: SULFACETAMIDE SODIUM 10% OPHTHALMIC DROPS 15 ML BOTTLE OS SCH ×7 (03:13→22:27)
[2018-03-02] MEDS ORDERED: INSULIN (NOVOLOG) ASPART 100 UNITS/ML 10ML VIAL ONE ×3 (05:59→21:47)
[2018-03-02] MEDS: METOCLOPRAMIDE HCL 10 MG TABLET (FP) PO SCH ×3 (06:05→16:52)
[2018-03-02] MEDS: LEVOTHYROXINE NA 125 MCG TABLET (FP) PO SCH (06:08)
[2018-03-02] MEDS: INSULIN SLIDING SCALE (NOVOLOG) 1 VIAL SQ SCH ×4 (06:08→22:28)
[2018-03-02 07:54] LABS: BASO % 0.7 % (0-2.0); HEMATOCRIT 36.9 % (32.4-45.2); HEMOGLOBIN 12.8 GM/dL (10.7-15.3); LYMPH % 15.4 % (8-40); MCH 32.1 pg (25.7-33.7); MCHC 34.8 g/dl (32.0-36.0); MEAN CELL VOLUME 92.2 fl (80-96); MEAN PLT VOLUME 10.2 fl (7.5-11.1); NEUT % 74.9 % (42.8-82.8); PLATELET COUNT 185 K/MM3 (134-434); RDW 14.4 % (11.6-15.6); WHITE BLOOD COUNT 9.5 K/mm3 (4.0-10.0)
[2018-03-02 08:52] LABS: ALBUMIN 2.7 g/dl (3.4-5.0); ALK PHOS 70 U/L (45-117); ANION GAP 7 MMOL/L (8-16); BILIRUBIN,TOTAL 1.5 mg/dL (0.2-1); BLOOD UREA NITROGEN 14 mg/dL (7-18); CALCIUM 8.2 mg/dL (8.5-10.1); CHLORIDE 103 mmol/L (98-107); CO2 28 mmol/L (21-32); CREATININE 0.8 mg/dL (0.55-1.3); GLUCOSE,RANDOM 208 mg/dL (74-106); POTASSIUM 4.3 mmol/L (3.5-5.1); SGOT/AST 15 U/L (15-37); SGPT/ALT 16 U/L (13-61); SODIUM 138 mmol/L (136-145); TOT PROT 5.7 g/dl (6.4-8.2)
[2018-03-02] MEDS ORDERED: cefTRIAXone SODIUM 1 GM VIAL ONE (09:50)
[2018-03-02] MEDS ORDERED: DEXTROSE 5%-WATER - 50 ML IVPB ONE (09:50)
[2018-03-02] MEDS: LIDOCAINE 5% TOPICAL PATCH TP SCH (09:55)
[2018-03-02] MEDS: PANTOPRAZOLE 40 MG TABLET (FP) PO SCH ×2 (09:56→22:29)
[2018-03-02] MEDS: QUINAPRIL HCL 5 MG TABLET (FP) PO SCH (09:57)
[2018-03-02] MEDS: ISOSORBIDE MONONITRATE 30 MG TAB.SR.24H (FP) PO SCH (09:57)
[2018-03-02] MEDS: METOPROLOL TARTRATE 50 MG TABLET (FP) PO SCH ×2 (09:57→22:29)
[2018-03-02] MEDS: APIXABAN 2.5 MG TABLET PO SCH ×2 (09:57→22:29)
[2018-03-02] MEDS: DONEPEZIL HCL 5 MG TABLET (FP) PO SCH (09:57)
[2018-03-02] MEDS: CEFTRIAXONE 1 GM in DEXTROSE 5%-WATER - 50 ML IVPB SCH (09:58)
[2018-03-02] MEDS: POLYETHYLENE GLYCOL 3350 119 GM BTL PO SCH (09:58)
[2018-03-02] MEDS: CYANOCOBALAMIN (VITAMIN B-12) 1000 MCG/1 ML VIAL IM SCH (11:44)
[2018-03-02] MEDS: sitaGLIPtin PHOSPHATE 100 MG TABLET (FP) PO SCH (11:44)
[2018-03-02] MEDS ORDERED: PT OWN MED DRAWER 7, Y5N ONE (21:47)
[2018-03-02] MEDS: ATORVASTATIN CA 20 MG TABLET (FP) PO SCH (22:29)
[2018-03-02] MEDS: LIDOCAINE PATCH REMOVAL MC SCH (22:33)
[2018-03-03] MEDS: SULFACETAMIDE SODIUM 10% OPHTHALMIC DROPS 15 ML BOTTLE OS SCH ×8 (03:55→21:50)
[2018-03-03] MEDS: METOCLOPRAMIDE HCL 10 MG TABLET (FP) PO SCH ×3 (06:15→16:35)
[2018-03-03] MEDS: sitaGLIPtin PHOSPHATE 100 MG TABLET (FP) PO SCH (06:16)
[2018-03-03] MEDS: LEVOTHYROXINE NA 125 MCG TABLET (FP) PO SCH (06:16)
[2018-03-03] MEDS: INSULIN SLIDING SCALE (NOVOLOG) 1 VIAL SQ SCH ×4 (06:18→21:45)
[2018-03-03] MEDS ORDERED: DEXTROSE 5%-WATER - 50 ML IVPB ONE ×2 (09:20→11:14)
[2018-03-03] MEDS ORDERED: cefTRIAXone SODIUM 1 GM VIAL ONE ×2 (09:20→11:14)
[2018-03-03] MEDS: PANTOPRAZOLE 40 MG TABLET (FP) PO SCH ×2 (09:26→21:46)
[2018-03-03] MEDS: QUINAPRIL HCL 5 MG TABLET (FP) PO SCH (09:26)
[2018-03-03] MEDS: DONEPEZIL HCL 5 MG TABLET (FP) PO SCH (09:27)
[2018-03-03] MEDS: LIDOCAINE 5% TOPICAL PATCH TP SCH (09:28)
[2018-03-03] MEDS: ISOSORBIDE MONONITRATE 30 MG TAB.SR.24H (FP) PO SCH (09:28)
[2018-03-03] MEDS: POLYETHYLENE GLYCOL 3350 119 GM BTL PO SCH (09:28)
[2018-03-03] MEDS: APIXABAN 2.5 MG TABLET PO SCH ×2 (09:28→21:46)
[2018-03-03] MEDS: CEFTRIAXONE 1 GM in DEXTROSE 5%-WATER - 50 ML IVPB SCH ×2 (09:28→11:22)
[2018-03-03] MEDS: CYANOCOBALAMIN (VITAMIN B-12) 1000 MCG/1 ML VIAL IM SCH (09:28)
[2018-03-03] MEDS: METOPROLOL TARTRATE 50 MG TABLET (FP) PO SCH ×2 (09:28→21:46)
[2018-03-03] MEDS ORDERED: INSULIN (NOVOLOG) ASPART 100 UNITS/ML 10ML VIAL ONE (10:24)
--- NOTE | 2018-03-03 11:40 | PN ---
Progress Note, Physician Chief Complaint: NOTES AND EVENTS REVIEWED CONFUSED IN BED TREATING WITH IV CEFTRIAXONE FOR ACUTE UTI/AMS - Current Medication List Current Medications: Active Medications Apixaban (Eliquis -) 2.5 mg PO BID [facility] Last Admin: 03/03/18 09:28 Dose: 2.5 mg Atorvastatin Calcium (Lipitor -) 20 mg PO HS [facility] Last Admin: 03/02/18 22:29 Dose: 20 mg Cyanocobalamin (Vitamin B12 Injection -) 1,000 mcg IM DAILY [facility] Last Admin: 03/03/18 09:28 Dose: 1,000 mcg Donepezil HCl (Aricept -) 5 mg PO DAILY [facility] Last Admin: 03/03/18 09:27 Dose: 5 mg Ceftriaxone Sodium 1 gm/ (Dextrose) 50 mls @ 100 mls/hr IVPB DAILY [facility]; Protocol Last Admin: 03/03/18 11:22 Dose: 100 mls/hr Insulin Aspart (Novolog Vial Sliding Scale -) 1 vial SQ ACHS [facility]; Protocol Last Admin: 03/03/18 11:26 Dose: 5 units Isosorbide Mononitrate (Imdur -) 30 mg PO DAILY [facility] Last Admin: 03/03/18 09:28 Dose: 30 mg Levothyroxine Sodium (Synthroid -) 125 mcg PO DAILY@0700 [facility] Last Admin: 03/03/18 06:16 Dose: 125 mcg Lidocaine (Lidoderm Patch -) 1 patch TP DAILY [facility] Last Admin: 03/03/18 09:28 Dose: 1 patch Metoclopramide HCl (Reglan -) 5 mg PO TIDAC [facility] Last Admin: 03/03/18 10:37 Dose: 5 mg Metoprolol Tartrate (Lopressor -) 50 mg PO BID [facility] Last Admin: 03/03/18 09:28 Dose: 50 mg Miscellaneous (Lidoderm Patch Removal) 1 each MC DAILY@2200 [facility] Last Admin: 03/02/18 22:33 Dose: 1 each Nitroglycerin (Nitro-Bid 2% Paste -) 0.5 inch TD Q6H PRN PRN Reason: FOR CHEST PAIN Last Admin: 02/28/18 22:29 Dose: 0.5 inch Pantoprazole Sodium (Protonix -) 40 mg PO BID [facility] Last Admin: 03/03/18 09:26 Dose: 40 mg Polyethylene Glycol (Miralax (For Daily Use) -) 17 gm PO DAILY [facility] Last Admin: 03/03/18 09:28 Dose: 17 gm Quinapril HCl (Accupril -) 2.5 mg PO DAILY [facility] Last Admin: 03/03/18 09:26 Dose: 2.5 mg Sitagliptin Phosphate (Januvia -) 100 mg PO DAILY@0700 [facility] Last Admin: 03/03/18 06:16 Dose: 100 mg Sulfacetamide Sodium (Bleph-10 Ophthalmic Solution -) 1 drop OS Q3H [facility] Last Admin: 03/03/18 11:29 Dose: 1 drop - Objective Vital Signs: Vital Signs Temperature 98.3 F 03/03/18 08:23 Pulse Rate 63 03/03/18 08:23 Respiratory Rate 16 03/03/18 08:23 Blood Pressure 160/92 03/03/18 08:23 O2 Sat by Pulse Oximetry (%) 94 L 03/03/18 03:00 Constitutional: Yes: Mild Distress Eyes: Yes: Other HENT: Yes: Other (FACIAL ERYTHEMA/BRUISE) Neck: Yes: WNL Cardiovascular: Yes: WNL Respiratory: Yes: WNL Gastrointestinal: Yes: WNL Genitourinary: Yes: Incontinence Musculoskeletal: Yes: Muscle Weakness Extremities: Yes: Other Edema: No Peripheral Pulses WNL: Yes Integumentary: Yes: Bruising, Erythema Wound/Incision: Yes: Dressing Dry and Intact Neurological: Yes: Loss of Sensation, Other ...Motor Strength: LLE, RLE Psychiatric: Yes: Other Labs: CBC, BMP 03/02/18 06:50 03/02/18 06:50 INR, PTT INR 1.08 (0.83-1.09) 02/25/18 06:07 Problem List - Problems (1) Acute metabolic encephalopathy Code(s): G93.41 - METABOLIC ENCEPHALOPATHY (2) Chest pain, atypical Code(s): R07.89 - OTHER CHEST PAIN (3) Controlled diabetes mellitus with diabetic peripheral angiopathy without gangrene, with long-term current use of insulin Code(s): E11.51 - TYPE 2 DIABETES W DIABETIC PERIPHERAL ANGIOPATH W/O GANGRENE; Z79.4 - SYSTEMS ANALYSIS MANAGER (CURRENT) USE OF INSULIN (4) Shoulder pain, left Code(s): M25.512 - PAIN IN LEFT SHOULDER (5) Type 2 diabetes mellitus with other circulatory complications Code(s): E11.59 - TYPE 2 DIABETES MELLITUS WITH OTH CIRCULATORY COMPLICATIONS (6) Abdominal pain Code(s): R10.9 - UNSPECIFIED ABDOMINAL PAIN (7) Fall Code(s): W19.XXXA - UNSPECIFIED FALL, INITIAL ENCOUNTER Qualifiers: Encounter type: initial encounter Qualified Code(s): W19.XXXA - Unspecified fall, initial encounter (8) Hypothyroid Code(s): E03.9 - HYPOTHYROIDISM, UNSPECIFIED (9) Poorly controlled diabetes mellitus Code(s): E11.65 - TYPE 2 DIABETES MELLITUS WITH HYPERGLYCEMIA (10) UTI (urinary tract infection) Code(s): N39.0 - URINARY TRACT INFECTION, SITE NOT SPECIFIED Qualifiers: Urinary tract infection type: site unspecified Hematuria presence: without hematuria Qualified Code(s): N39.0 - Urinary tract infection, site not specified Assessment/Plan IV ABX FOR UTI ACUTE METABOLIC ENCEPHALOPATHY NEEDS PT AND SNF PLACEMENT REVIEW ADVANCED DIRECTIVES WITH FAMILY MONITOR LABS
[2018-03-03] MEDS ORDERED: ONDANSETRON 4 MG/2 ML VIAL ONE (13:31)
[2018-03-03] MEDS ORDERED: ONDANSETRON 4 MG/2 ML VIAL IVPUSH PRN (13:32)
[2018-03-03] MEDS ORDERED: PT OWN MED DRAWER 7, Y5N ONE (21:07)
[2018-03-03] MEDS: ATORVASTATIN CA 20 MG TABLET (FP) PO SCH (21:46)
[2018-03-03] MEDS: LIDOCAINE PATCH REMOVAL MC SCH (21:47)
[2018-03-04] MEDS ORDERED: ACETAMINOPHEN 500 MG TABLET (FP) PO PRN (00:06)
[2018-03-04] MEDS: SULFACETAMIDE SODIUM 10% OPHTHALMIC DROPS 15 ML BOTTLE OS SCH ×8 (00:25→21:00)
[2018-03-04] MEDS: sitaGLIPtin PHOSPHATE 100 MG TABLET (FP) PO SCH (06:19)
[2018-03-04] MEDS: INSULIN SLIDING SCALE (NOVOLOG) 1 VIAL SQ SCH ×4 (06:19→21:33)
[2018-03-04] MEDS: METOCLOPRAMIDE HCL 10 MG TABLET (FP) PO SCH ×3 (06:19→16:23)
[2018-03-04] MEDS: LEVOTHYROXINE NA 125 MCG TABLET (FP) PO SCH (06:20)
[2018-03-04] MEDS ORDERED: cefTRIAXone SODIUM 1 GM VIAL ONE (08:31)
[2018-03-04] MEDS ORDERED: DEXTROSE 5%-WATER - 50 ML IVPB ONE (08:31)
[2018-03-04] MEDS: CEFTRIAXONE 1 GM in DEXTROSE 5%-WATER - 50 ML IVPB SCH (08:59)
[2018-03-04] MEDS: CYANOCOBALAMIN (VITAMIN B-12) 1000 MCG/1 ML VIAL IM SCH (08:59)
[2018-03-04] MEDS: PANTOPRAZOLE 40 MG TABLET (FP) PO SCH ×2 (09:03→21:32)
[2018-03-04] MEDS: QUINAPRIL HCL 5 MG TABLET (FP) PO SCH (09:03)
[2018-03-04] MEDS: ISOSORBIDE MONONITRATE 30 MG TAB.SR.24H (FP) PO SCH (09:03)
[2018-03-04] MEDS: METOPROLOL TARTRATE 50 MG TABLET (FP) PO SCH ×2 (09:03→21:32)
[2018-03-04] MEDS: DONEPEZIL HCL 5 MG TABLET (FP) PO SCH (09:03)
[2018-03-04] MEDS: APIXABAN 2.5 MG TABLET PO SCH ×2 (09:04→21:33)
[2018-03-04] MEDS: LIDOCAINE 5% TOPICAL PATCH TP SCH (09:04)
[2018-03-04] MEDS: POLYETHYLENE GLYCOL 3350 119 GM BTL PO SCH (09:06)
--- NOTE | 2018-03-04 13:27 | PN ---
Progress Note, Physician Chief Complaint: PATIENT IS IN BED LETHARGIC POOR INTAKE - Current Medication List Current Medications: Active Medications Acetaminophen (Tylenol -) 500 mg PO Q6H PRN PRN Reason: HEADACHE Last Admin: 03/04/18 01:49 Dose: 500 mg Apixaban (Eliquis -) 2.5 mg PO BID [facility] Last Admin: 03/04/18 09:04 Dose: 2.5 mg Atorvastatin Calcium (Lipitor -) 20 mg PO HS [facility] Last Admin: 03/03/18 21:46 Dose: 20 mg Cyanocobalamin (Vitamin B12 Injection -) 1,000 mcg IM DAILY [facility] Last Admin: 03/04/18 08:59 Dose: 1,000 mcg Donepezil HCl (Aricept -) 5 mg PO DAILY [facility] Last Admin: 03/04/18 09:03 Dose: 5 mg Ceftriaxone Sodium 1 gm/ (Dextrose) 50 mls @ 100 mls/hr IVPB DAILY [facility]; Protocol Last Admin: 03/04/18 08:59 Dose: 100 mls/hr Insulin Aspart (Novolog Vial Sliding Scale -) 1 vial SQ ACHS [facility]; Protocol Last Admin: 03/04/18 11:18 Dose: Not Given Isosorbide Mononitrate (Imdur -) 30 mg PO DAILY [facility] Last Admin: 03/04/18 09:03 Dose: 30 mg Levothyroxine Sodium (Synthroid -) 125 mcg PO DAILY@0700 [facility] Last Admin: 03/04/18 06:20 Dose: 125 mcg Lidocaine (Lidoderm Patch -) 1 patch TP DAILY [facility] Last Admin: 03/04/18 09:04 Dose: 1 patch Metoclopramide HCl (Reglan -) 5 mg PO TIDAC [facility] Last Admin: 03/04/18 11:21 Dose: 5 mg Metoprolol Tartrate (Lopressor -) 50 mg PO BID [facility] Last Admin: 03/04/18 09:03 Dose: 50 mg Miscellaneous (Lidoderm Patch Removal) 1 each MC DAILY@2200 [facility] Last Admin: 03/03/18 21:47 Dose: 1 each Nitroglycerin (Nitro-Bid 2% Paste -) 0.5 inch TD Q6H PRN PRN Reason: FOR CHEST PAIN Last Admin: 02/28/18 22:29 Dose: 0.5 inch Ondansetron HCl (Zofran Injection) 4 mg IVPUSH Q6H PRN PRN Reason: NAUSEA AND/OR VOMITING Last Admin: 03/03/18 13:39 Dose: 4 mg Pantoprazole Sodium (Protonix -) 40 mg PO BID [facility] Last Admin: 03/04/18 09:03 Dose: 40 mg Polyethylene Glycol (Miralax (For Daily Use) -) 17 gm PO DAILY [facility] Last Admin: 03/04/18 09:06 Dose: 17 gm Quinapril HCl (Accupril -) 2.5 mg PO DAILY [facility] Last Admin: 03/04/18 09:03 Dose: 2.5 mg Sitagliptin Phosphate (Januvia -) 100 mg PO DAILY@0700 [facility] Last Admin: 03/04/18 06:19 Dose: 100 mg Sulfacetamide Sodium (Bleph-10 Ophthalmic Solution -) 1 drop OS Q3H [facility] Last Admin: 03/04/18 11:21 Dose: 1 drop - Objective Vital Signs: Vital Signs Temperature 98.2 F 03/04/18 07:53 Pulse Rate 62 03/04/18 07:53 Respiratory Rate 20 03/04/18 07:53 Blood Pressure 170/82 03/04/18 07:53 O2 Sat by Pulse Oximetry (%) 98 03/04/18 09:00 Constitutional: Yes: Mild Distress, Other Eyes: Yes: WNL HENT: Yes: WNL Neck: Yes: WNL Cardiovascular: Yes: Pulse Irregular Respiratory: Yes: Diminished, On Nasal O2 Gastrointestinal: Yes: Soft, Abdomen, Obese Genitourinary: Yes: Incontinence Musculoskeletal: Yes: Muscle Weakness Extremities: Yes: Other Edema: Yes Peripheral Pulses WNL: Yes Integumentary: Yes: Venous Stasis Changes Wound/Incision: Yes: Reddened, Other Neurological: Yes: Pre-Existing Deficit ...Motor Strength: LLE, RLE Psychiatric: Yes: Other Labs: CBC, BMP 03/02/18 06:50 03/02/18 06:50 INR, PTT INR 1.08 (0.83-1.09) 02/25/18 06:07 Problem List - Problems (1) Acute metabolic encephalopathy Code(s): G93.41 - METABOLIC ENCEPHALOPATHY (2) Chest pain, atypical Code(s): R07.89 - OTHER CHEST PAIN (3) Controlled diabetes mellitus with diabetic peripheral angiopathy without gangrene, with long-term current use of insulin Code(s): E11.51 - TYPE 2 DIABETES W DIABETIC PERIPHERAL ANGIOPATH W/O GANGRENE; Z79.4 - CUSTODIAL (CURRENT) USE OF INSULIN (4) Shoulder pain, left Code(s): M25.512 - PAIN IN LEFT SHOULDER (5) Type 2 diabetes mellitus with other circulatory complications Code(s): E11.59 - TYPE 2 DIABETES MELLITUS WITH OTH CIRCULATORY COMPLICATIONS (6) Abdominal pain Code(s): R10.9 - UNSPECIFIED ABDOMINAL PAIN (7) Fall Code(s): W19.XXXA - UNSPECIFIED FALL, INITIAL ENCOUNTER Qualifiers: Encounter type: initial encounter Qualified Code(s): W19.XXXA - Unspecified fall, initial encounter (8) Hypothyroid Code(s): E03.9 - HYPOTHYROIDISM, UNSPECIFIED (9) Poorly controlled diabetes mellitus Code(s): E11.65 - TYPE 2 DIABETES MELLITUS WITH HYPERGLYCEMIA (10) UTI (urinary tract infection) Code(s): N39.0 - URINARY TRACT INFECTION, SITE NOT SPECIFIED Qualifiers: Urinary tract infection type: site unspecified Hematuria presence: without hematuria Qualified Code(s): N39.0 - Urinary tract infection, site not specified Assessment/Plan IV ABX FOR UTI ACUTE METABOLIC ENCEPHALOPATHY NEEDS PT AND SNF PLACEMENT REVIEW ADVANCED DIRECTIVES WITH FAMILY MONITOR LABS
[2018-03-04] MEDS ORDERED: PT OWN MED DRAWER 7, Y5N ONE ×2 (17:09→21:05)
[2018-03-04] MEDS ORDERED: INSULIN (NOVOLOG) ASPART 100 UNITS/ML 10ML VIAL ONE (21:05)
[2018-03-04] MEDS: ATORVASTATIN CA 20 MG TABLET (FP) PO SCH (21:32)
[2018-03-04] MEDS: METHYL SALICYLATE/MENTHOL OINT 30 GM TUBE TP SCH (21:32)
[2018-03-04] MEDS: LIDOCAINE PATCH REMOVAL MC SCH (21:33)
[2018-03-04] MEDS: ACETAMINOPHEN 325 MG TABLET (FP) PO PRN (22:20)
[2018-03-05] MEDS: SULFACETAMIDE SODIUM 10% OPHTHALMIC DROPS 15 ML BOTTLE OS SCH ×5 (03:00→12:56)
[2018-03-05 03:28] VITALS: TEMP 98.4
[2018-03-05] MEDS: METOCLOPRAMIDE HCL 10 MG TABLET (FP) PO SCH ×2 (06:21→12:56)
[2018-03-05] MEDS: LEVOTHYROXINE NA 125 MCG TABLET (FP) PO SCH (06:21)
[2018-03-05] MEDS: sitaGLIPtin PHOSPHATE 100 MG TABLET (FP) PO SCH (06:21)
[2018-03-05] MEDS: ACETAMINOPHEN 325 MG TABLET (FP) PO PRN (06:22)
[2018-03-05] MEDS: INSULIN SLIDING SCALE (NOVOLOG) 1 VIAL SQ SCH ×2 (06:23→12:47)
[2018-03-05] MEDS ORDERED: INSULIN (NOVOLOG) ASPART 100 UNITS/ML 10ML VIAL ONE ×2 (06:33→11:44)
[2018-03-05] MEDS ORDERED: PT OWN MED DRAWER 7, Y5N ONE (06:57)
[2018-03-05 07:42] LABS: HEMATOCRIT 40.4 % (32.4-45.2); HEMOGLOBIN 12.9 GM/dL (10.7-15.3); MCH 29.9 pg (25.7-33.7); MCHC 31.9 g/dl (32.0-36.0); MEAN CELL VOLUME 93.7 fl (80-96); MEAN PLT VOLUME 9.6 fl (7.5-11.1); PLATELET COUNT 186 K/MM3 (134-434); RBC 4.31 M/mm3 (3.60-5.2); RDW 14.7 % (11.6-15.6); WHITE BLOOD COUNT 7.8 K/mm3 (4.0-10.0)
[2018-03-05 08:01] LABS: ANION GAP 7 MMOL/L (8-16); BLOOD UREA NITROGEN 13 mg/dL (7-18); CALCIUM 8.5 mg/dL (8.5-10.1); CHLORIDE 100 mmol/L (98-107); CO2 32 mmol/L (21-32); CREATININE 0.8 mg/dL (0.55-1.3); GLUCOSE,RANDOM 279 mg/dL (74-106); POTASSIUM 4.3 mmol/L (3.5-5.1); SODIUM 139 mmol/L (136-145)
[2018-03-05] MEDS ORDERED: cefTRIAXone SODIUM 1 GM VIAL ONE (09:56)
[2018-03-05] MEDS ORDERED: DEXTROSE 5%-WATER - 50 ML IVPB ONE (09:56)
[2018-03-05] MEDS: POLYETHYLENE GLYCOL 3350 119 GM BTL PO SCH (10:11)
[2018-03-05] MEDS: CEFTRIAXONE 1 GM in DEXTROSE 5%-WATER - 50 ML IVPB SCH (10:11)
[2018-03-05] MEDS: METHYL SALICYLATE/MENTHOL OINT 30 GM TUBE TP SCH (10:12)
[2018-03-05] MEDS: QUINAPRIL HCL 5 MG TABLET (FP) PO SCH (10:12)
[2018-03-05] MEDS: ISOSORBIDE MONONITRATE 30 MG TAB.SR.24H (FP) PO SCH (10:12)
[2018-03-05] MEDS: CYANOCOBALAMIN (VITAMIN B-12) 1000 MCG/1 ML VIAL IM SCH (10:12)
[2018-03-05] MEDS: APIXABAN 2.5 MG TABLET PO SCH (10:12)
[2018-03-05] MEDS: DONEPEZIL HCL 5 MG TABLET (FP) PO SCH (10:12)
[2018-03-05] MEDS: METOPROLOL TARTRATE 50 MG TABLET (FP) PO SCH (10:12)
[2018-03-05] MEDS: LIDOCAINE 5% TOPICAL PATCH TP SCH (10:12)
[2018-03-05] MEDS: PANTOPRAZOLE 40 MG TABLET (FP) PO SCH (10:13)
--- NOTE | 2018-03-05 10:18 | PN ---
Progress Note (short form) - Note Progress Note: Ortho Pt seen and examined- much better s/p cortisone injection for left shoulder PE- nontender, incr rom, nvi a/p NTD orthopedically stable re-consult prn d/w Dr. Geiger
--- NOTE | 2018-03-05 10:57 | DS ---
Physical Examination Vital Signs: Vital Signs Temperature 98.4 F 03/05/18 06:00 Pulse Rate 56 L 03/05/18 06:00 Respiratory Rate 18 03/05/18 06:00 Blood Pressure 152/79 03/05/18 06:00 O2 Sat by Pulse Oximetry (%) 98 03/04/18 22:00 Findings/Remarks: 87 yo F with h/o dementia, CAD, IDDM, hypothyroidism, gastroparesis, who p/w chronic RUQ abdominal pain and N/V. VSS, AF. +RUQ abdominal ttp. Prior CT AP with Simgoid diverticulosis, and RUQ U/S s/p choleycystectomy otherwise unremarkable. Patient with persistent nausea without vomitting, RUQ and acute onset of epigastria pain radiating to right sided jaw and shoulder x 2-3 hours, despite Maloox, Tylenol, Zofran. Denies F/C, SOB, palpitations, PND, orhtopnea, leg swelling. EKG similar to NSR with 1st degree AV block. PVC not seen on prior EKG's. Last EKG 02-19-18. CBC,CMP are unremarkable Trop negative. Patient c/o chest pain denies any abdominal pain Constitutional: Yes: Well Nourished, No Distress, Calm Cardiovascular: Yes: Regular Rate and Rhythm Respiratory: Yes: Regular Gastrointestinal: Yes: Normal Bowel Sounds, Soft, Abdomen, Obese Musculoskeletal: Yes: Muscle Pain (left shoulder), Muscle Weakness Edema: No Peripheral Pulses WNL: Yes Neurological: Yes: Alert, Pre-Existing Deficit Psychiatric: Yes: Alert Labs: CBC, BMP 03/05/18 06:15 03/05/18 06:15 Discharge Summary Reason For Visit: CHEST PAIN Current Active Problems Acute metabolic encephalopathy (Acute) Chest pain, atypical (Acute) Controlled diabetes mellitus with diabetic peripheral angiopathy without gangrene, with long-term current use of insulin (Acute) Shoulder pain, left (Acute) Type 2 diabetes mellitus with other circulatory complications (Acute) Hospital Course: Laboratory Last Values WBC 7.8 K/mm3 (4.0-10.0) 03/05/18 06:15 RBC 4.31 M/mm3 (3.60-5.2) 03/05/18 06:15 Hgb 12.9 GM/dL (10.7-15.3) 03/05/18 06:15 Hct 40.4 % (32.4-45.2) 03/05/18 06:15 MCV 93.7 fl (80-96) 03/05/18 06:15 MCH 29.9 pg (25.7-33.7) 03/05/18 06:15 MCHC 31.9 g/dl (32.0-36.0) L 03/05/18 06:15 RDW 14.7 % (11.6-15.6) 03/05/18 06:15 Plt Count 186 K/MM3 (134-434) 03/05/18 06:15 MPV 9.6 fl (7.5-11.1) 03/05/18 06:15 Absolute Neuts (auto) 7.1 K/mm3 (1.5-8.0) 03/02/18 06:50 Neutrophils % 74.9 % (42.8-82.8) 03/02/18 06:50 Lymphocytes % 15.4 % (8-40) D 03/02/18 06:50 Monocytes % 8.0 % (3.8-10.2) 03/02/18 06:50 Eosinophils % 1.0 % (0-4.5) 03/02/18 06:50 Basophils % 0.7 % (0-2.0) 03/02/18 06:50 Nucleated RBC % 0 % (0-0) 03/02/18 06:50 PT with INR 12.70 SEC (9.7-13.0) 02/25/18 06:07 INR 1.08 (0.83-1.09) 02/25/18 06:07 Sodium 139 mmol/L (136-145) 03/05/18 06:15 Potassium 4.3 mmol/L (3.5-5.1) 03/05/18 06:15 Chloride 100 mmol/L (98-107) 03/05/18 06:15 Carbon Dioxide 32 mmol/L (21-32) 03/05/18 06:15 Anion Gap 7 MMOL/L (8-16) L 03/05/18 06:15 BUN 13 mg/dL (7-18) 03/05/18 06:15 Creatinine 0.8 mg/dL (0.55-1.3) 03/05/18 06:15 Creat Clearance w eGFR > 60 (>60) 03/05/18 06:15 POC Glucometer 245 UNITS (80-120) 03/05/18 05:56 Random Glucose 279 mg/dL (74-106) H 03/05/18 06:15 Hemoglobin A1c % 8.7 % (4.2-6.3) H 02/26/18 05:22 Lactic Acid 1.1 mmol/L (0.4-2.0) 02/28/18 10:07 Calcium 8.5 mg/dL (8.5-10.1) 03/05/18 06:15 Magnesium 1.9 mg/dL (1.8-2.4) 02/27/18 06:30 Total Bilirubin 1.5 mg/dL (0.2-1) H 03/02/18 06:50 AST 15 U/L (15-37) 03/02/18 06:50 ALT 16 U/L (13-61) 03/02/18 06:50 Alkaline Phosphatase 70 U/L (45-117) 03/02/18 06:50 Creatine Kinase 77 IU/L (26-192) 02/28/18 09:15 Troponin I < 0.02 ng/ml (0.00-0.05) 02/28/18 09:15 Total Protein 5.7 g/dl (6.4-8.2) L 03/02/18 06:50 Albumin 2.7 g/dl (3.4-5.0) L 03/02/18 06:50 Triglycerides 115 mg/dL (0-150) 02/27/18 06:30 Cholesterol 172 mg/dL (50-200) 02/27/18 06:30 Total LDL Cholesterol 102 mg/dL (5-100) H 02/27/18 06:30 HDL Cholesterol 49 mg/dL (40-60) 02/27/18 06:30 Vitamin B12 339 pg/ml (193-986) 03/02/18 06:50 TSH 3.18 uIU/ml (0.358-3.74) 02/28/18 09:15 Urine Color Dkyellow 02/27/18 22:00 Urine Appearance Cloudy 02/27/18 22:00 Urine pH 5.0 (5.0-8.0) D 02/27/18 22:00 Ur Specific [place] 1.022 (1.010-1.035) 02/27/18 22:00 Urine Protein 1+ (NEGATIVE) H 02/27/18 22:00 Urine Glucose (UA) 3+ (NEGATIVE) H 02/27/18 22:00 Urine Ketones 1+ (NEGATIVE) H 02/27/18 22:00 Urine Blood Negative (NEGATIVE) 02/27/18 22:00 Urine Nitrite Negative (NEGATIVE) 02/27/18 22:00 Urine Bilirubin Negative (<2.0 mg/dL) 02/27/18 22:00 Urine Urobilinogen 2.0 mg/dL (0.2-1.0) H 02/27/18 22:00 Ur Leukocyte Esterase 1+ (NEGATIVE) H 02/27/18 22:00 Urine WBC (Auto) 39 /hpf (3-5) 02/27/18 22:00 Urine RBC (Auto) 1 /hpf (0-3) 02/27/18 22:00 Ur Epithelial Cells Rare /HPF (FEW) 02/27/18 22:00 Urine Bacteria Rare /hpf (NONE SEEN) 02/27/18 22:00 Hyaline Casts 1 /lpf 02/27/18 22:00 Urine Mucus Rare 02/27/18 22:00 Acetone, Qual Negative (NEGATIVE) L 02/25/18 06:07 Microbiology 02/28/18 14:10 Blood - Peripheral Venous Blood Culture - Preliminary NO GROWTH OBTAINED AFTER 96 HOURS, INCUBATION TO CONTINUE FOR 1 DAYS. 02/28/18 14:10 Blood - Peripheral Venous Blood Culture - Preliminary NO GROWTH OBTAINED AFTER 96 HOURS, INCUBATION TO CONTINUE FOR 1 DAYS. 02/27/18 22:00 Urine - Urine - Catheterized Urine Culture - Final Escherichia Coli Condition: Stable - Instructions Diet, Activity, Other Instructions: Start Protonix 40mg bid Start Reglan 5mg 30 min ac Start Januvia 100 mg daily Take Cefuroxime 500 mg 2 x day for another 4 days Diabetic low sodium, low fiber , lactose free diet Follow up with Dr Brian Goldberg for your eyes Follow up with Dr Thomas Geiger for left shoulder pain Follow up with Dr Tyrell Back within next 2 weeks Referrals: Brian Goldberg MD [Staff Physician] - Harris Gross MD [Staff Physician] - Tyrell Back MD [Staff Physician] - Disposition: VNS/HOME HEALTH CARE - Home Medications Comprehensive Discharge Medication List: Ambulatory Orders Apixaban [Eliquis -] 2.5 mg PO BID tablet 02/27/18 Aspirin Coated [Ecotrin -] 81 mg PO DAILY tablet.ec 02/27/18 Atorvastatin Ca [Lipitor] 20 mg PO HS tablet 02/27/18 Insulin Detemir [Levemir Flextouch] 100 unit SQ BID #2 insuln.pen 02/27/18 Insulin Lispro [Humalog Kwikpen U-100] 100 unit SQ AC #1 insuln.pen 02/27/18 Insulin Sliding Scale [Novolog Vial Sliding Scale -] 1 vial SQ ACHS units 02/27 Isosorbide Mononitrate [Imdur -] 30 mg PO DAILY tab.sr.24h 02/27/18 Levothyroxine [Synthroid -] 125 mcg PO DAILY@0700 #30 tablet 02/27/18 Metoclopramide HCl [Reglan -] 5 mg PO TIDAC #90 tablet 02/27/18 Metoprolol Tartrate [Lopressor -] 50 mg PO BID tablet 02/27/18 Ken/Polymyx B Sulf/Dexameth [Maxitrol Eye Ointment -] 1 applic OS BID 10 Days # 1 tube 02/27/18 Pantoprazole Sodium [Protonix -] 40 mg PO BID #60 tablet.ec 02/27/18 Pen Needle, Diabetic [Pen Needle] 1 each QID #150 dis.needle 02/27/18 Polyethylene Glycol 3350 [Miralax 119 gm Btl -] 17 gm PO DAILY bottle 02/27/18 Quinapril HCl [Accupril -] 2.5 mg PO DAILY tablet 02/27/18 Sulfacetamide Sodium 10% [Bleph-10 Ophthalmic Solution -] 1 drop OS Q3H drops 02/27/18 Sulfacetamide Sodium 10% [Bleph-10 Ophthalmic Solution -] 1 drop OS Q3H 10 Days #1 bottle 02/27/18 Cefuroxime Axetil [Ceftin -] 500 mg PO BID #8 tablet 03/05/18 Sitagliptin Phosphate [Januvia -] 100 mg PO DAILY@0700 #30 ud 03/05/18
--- NOTE | 2018-03-05 11:00 | PN ---
Progress Note, Physician Chief Complaint: AMS Abdominal pain History of Present Illness: NAD in bed Patient was to be discharged on 02/27/18, which was cancelled due to patient complaining of left shoulder and abdominal pain. received left shoulder corticosteroid injection U/S abdomen showed fatty liver vs hepatocellular disease. However, liver enzymes are negative. UC: Microbiology 02/28/18 14:10 Blood - Peripheral Venous Blood Culture - Preliminary NO GROWTH OBTAINED AFTER 96 HOURS, INCUBATION TO CONTINUE FOR 1 DAYS. 02/28/18 14:10 Blood - Peripheral Venous Blood Culture - Preliminary NO GROWTH OBTAINED AFTER 96 HOURS, INCUBATION TO CONTINUE FOR 1 DAYS. 02/27/18 22:00 Urine - Urine - Catheterized Urine Culture - Final Escherichia Coli Spoke to Patient's daughter, refuses SNF, wants her mother home with Home care services - Current Medication List Current Medications: Active Medications Acetaminophen (Tylenol -) 650 mg PO Q6H PRN PRN Reason: PAIN Last Admin: 03/05/18 06:22 Dose: 650 mg Apixaban (Eliquis -) 2.5 mg PO BID [facility] Last Admin: 03/05/18 10:12 Dose: 2.5 mg Atorvastatin Calcium (Lipitor -) 20 mg PO HS [facility] Last Admin: 03/04/18 21:32 Dose: 20 mg Cefuroxime Axetil (Ceftin -) 500 mg PO BID [facility] Cyanocobalamin (Vitamin B12 Injection -) 1,000 mcg IM DAILY [facility] Last Admin: 03/05/18 10:12 Dose: 1,000 mcg Donepezil HCl (Aricept -) 5 mg PO DAILY [facility] Last Admin: 03/05/18 10:12 Dose: 5 mg Insulin Aspart (Novolog Vial Sliding Scale -) [address] [facility]; Protocol Last Admin: 03/05/18 06:23 Dose: 2 units Isosorbide Mononitrate (Imdur -) 30 mg PO DAILY [facility] Last Admin: 03/05/18 10:12 Dose: 30 mg Levothyroxine Sodium (Synthroid -) 125 mcg PO DAILY@0700 [facility] Last Admin: 03/05/18 06:21 Dose: 125 mcg Lidocaine (Lidoderm Patch -) 1 patch TP DAILY [facility] Last Admin: 03/05/18 10:12 Dose: 1 patch Methyl Salicylate (Alan-Rene -) 1 applic TP BID [facility] Last Admin: 03/05/18 10:12 Dose: 1 applic Metoclopramide HCl (Reglan -) 5 mg PO TIDAC [facility] Last Admin: 03/05/18 06:21 Dose: 5 mg Metoprolol Tartrate (Lopressor -) 50 mg PO BID [facility] Last Admin: 03/05/18 10:12 Dose: 50 mg Miscellaneous (Lidoderm Patch Removal) 1 each MC DAILY@2200 [facility] Last Admin: 03/04/18 21:33 Dose: 1 each Nitroglycerin (Nitro-Bid 2% Paste -) 0.5 inch TD Q6H PRN PRN Reason: FOR CHEST PAIN Last Admin: 02/28/18 22:29 Dose: 0.5 inch Ondansetron HCl (Zofran Injection) 4 mg IVPUSH Q6H PRN PRN Reason: NAUSEA AND/OR VOMITING Last Admin: 03/03/18 13:39 Dose: 4 mg Pantoprazole Sodium (Protonix -) 40 mg PO BID [facility] Last Admin: 03/05/18 10:13 Dose: 40 mg Polyethylene Glycol (Miralax (For Daily Use) -) 17 gm PO DAILY [facility] Last Admin: 03/05/18 10:11 Dose: 17 gm Quinapril HCl (Accupril -) 2.5 mg PO DAILY [facility] Last Admin: 03/05/18 10:12 Dose: 2.5 mg Sitagliptin Phosphate (Januvia -) 100 mg PO DAILY@0700 [facility] Last Admin: 03/05/18 06:21 Dose: 100 mg Sulfacetamide Sodium (Bleph-10 Ophthalmic Solution -) 1 drop OS Q3H [facility] Last Admin: 03/05/18 10:13 Dose: 1 drop - Objective Vital Signs: Vital Signs Temperature 98.4 F 03/05/18 06:00 Pulse Rate 56 L 03/05/18 06:00 Respiratory Rate 18 03/05/18 06:00 Blood Pressure 152/79 03/05/18 06:00 O2 Sat by Pulse Oximetry (%) 98 03/04/18 22:00 Constitutional: Yes: Well Nourished, No Distress, Calm Cardiovascular: Yes: Regular Rate and Rhythm Respiratory: Yes: Regular Gastrointestinal: Yes: Normal Bowel Sounds, Soft, Abdomen, Obese Musculoskeletal: Yes: Muscle Weakness, Other (left shoulder pain) Edema: No Peripheral Pulses WNL: Yes Neurological: Yes: Alert, Pre-Existing Deficit Psychiatric: Yes: Alert Labs: CBC, BMP 03/05/18 06:15 03/05/18 06:15 INR, PTT INR 1.08 (0.83-1.09) 02/25/18 06:07 Problem List - Problems (1) Chest pain, atypical Assessment/Plan: -seen by cardiology -Atypical -trops negative Code(s): R07.89 - OTHER CHEST PAIN (2) Abdominal pain Assessment/Plan: -2/2 to UTI? -Abd U/S shows possible hepatocellular disease vs Fatty liver -UC + for UTI: Microbiology 02/28/18 14:10 Blood - Peripheral Venous Blood Culture - Preliminary NO GROWTH OBTAINED AFTER 96 HOURS, INCUBATION TO CONTINUE FOR 1 DAYS. 02/28/18 14:10 Blood - Peripheral Venous Blood Culture - Preliminary NO GROWTH OBTAINED AFTER 96 HOURS, INCUBATION TO CONTINUE FOR 1 DAYS. 02/27/18 22:00 Urine - Urine - Catheterized Urine Culture - Final Escherichia Coli -Seen by GI Will continue: -On low fiber, lactose free diet -Pantoprazole 40 mg po bid -Reglan 5 mg AC Code(s): R10.9 - UNSPECIFIED ABDOMINAL PAIN (3) Afib Assessment/Plan: -chronic -rate controlled -On Eliquis 2.5 mg po bid Code(s): I48.91 - UNSPECIFIED ATRIAL FIBRILLATION (4) Diabetes Assessment/Plan: -A1C 8.7 -BGM AC HS -Diabetic diet -Endocrinology consult -Insulin: Sliding scale -Started Januvia to avoid any GI effects from Metformin-will continue outpatient -RD consult Code(s): E11.9 - TYPE 2 DIABETES MELLITUS WITHOUT COMPLICATIONS Qualifiers: Diabetes mellitus type: type 2 (5) Shoulder pain, left Assessment/Plan: -Seen by Orthopedic surgery -Received Corticosteroid injection -Will follow up with Dr Geiger outpatient -PT at Home Code(s): M25.512 - PAIN IN LEFT SHOULDER (6) UTI (urinary tract infection) Assessment/Plan: -UC final : Microbiology 02/28/18 14:10 Blood - Peripheral Venous Blood Culture - Preliminary NO GROWTH OBTAINED AFTER 96 HOURS, INCUBATION TO CONTINUE FOR 1 DAYS. 02/28/18 14:10 Blood - Peripheral Venous Blood Culture - Preliminary NO GROWTH OBTAINED AFTER 96 HOURS, INCUBATION TO CONTINUE FOR 1 DAYS. 02/27/18 22:00 Urine - Urine - Catheterized Urine Culture - Final Escherichia Coli -Seen by ID -Received IV ceftriaxone 1g daily for 6 days -D/C home on Cefuroxime 500 mg po BID x 4 days Code(s): N39.0 - URINARY TRACT INFECTION, SITE NOT SPECIFIED Qualifiers: Urinary tract infection type: site unspecified Hematuria presence: without hematuria Qualified Code(s): N39.0 - Urinary tract infection, site not specified (7) Hypothyroid Assessment/Plan: -Synthroid adjusted to 125 mcg po daily -repeat Thyroid profile in 4 weeks Code(s): E03.9 - HYPOTHYROIDISM, UNSPECIFIED Assessment/Plan see problem list Physical therapy-poor performance Daughter refuses SNF-Pt will go home with Home care service + PT
[2018-03-05 11:17] VITALS: BP 112/51; PULSE 82
[2018-03-05] MEDS ORDERED: CEFUROXIME AXETIL 500 MG TABLET PO SCH (22:00)
--- NOTE | 2018-05-21 10:36 | EKG ---
Test Reason : Blood Pressure : / mmHG Vent. Rate : 060 BPM Atrial Rate : 060 BPM P-R Int : 226 ms QRS Dur : 094 ms QT Int : 466 ms P-R-T Axes : 000 182 177 degrees QTc Int : 466 ms SINUS RHYTHM WITH 1ST DEGREE A-V BLOCK NONSPECIFIC T WAVE ABNORMALITY ABNORMAL ECG WHEN COMPARED WITH ECG OF 28-FEB-2018 10:36, T WAVE VARIATION Confirmed by SCOTTY THURMAN MD ([id number]) on 05/21/2018 10:36:43 AM Referred By: Confirmed By:SCOTTY THURMAN MD
== END 2018-03-05 13:20 | disposition home health service (06) | DRG 689 ==
LOC: JER 05:01 → JERBED 09:05 → UNDOADMOB 09:05 → OBSVTOIN 11:54 → JERBED 11:54 → INTOOBSV 11:54 → UNDOADMOB 02-26 11:44 → JERBED 02-26 11:44 → J6S 02-26 18:44 → JERBED 02-26 18:44 → J6S 02-26 18:44
PROVIDERS: ADMIT Family Medicine; ATTEND Family Medicine
PROC: 3E0U33Z Introduction of Anti-inflammatory into Joints, Percutaneous Approach (ICD-10-PCS; principal; 2018-03-01)
PROC: 3E0U3BZ Introduction of Anesthetic Agent into Joints, Percutaneous Approach (ICD-10-PCS; 2018-03-01)
DX: N39.0 Urinary tract infection, site not specified (principal); G93.41 Metabolic encephalopathy; R07.89 Other chest pain; R10.11 Right upper quadrant pain; I25.10 Atherosclerotic heart disease of native coronary artery without angina pectoris; J44.9 Chronic obstructive pulmonary disease, unspecified; E03.9 Hypothyroidism, unspecified; E11.43 Type 2 diabetes mellitus with diabetic autonomic (poly)neuropathy; K31.84 Gastroparesis; F03.90 Unspecified dementia, unspecified severity, without behavioral disturbance, psychotic disturbance, mood disturbance, and anxiety; I34.1 Nonrheumatic mitral (valve) prolapse; K76.0 Fatty (change of) liver, not elsewhere classified; E78.00 Pure hypercholesterolemia, unspecified; E66.9 Obesity, unspecified; Z68.38 Body mass index [BMI] 38.0-38.9, adult; I44.0 Atrioventricular block, first degree; R42 Dizziness and giddiness; K44.9 Diaphragmatic hernia without obstruction or gangrene; K59.00 Constipation, unspecified; I48.0 Paroxysmal atrial fibrillation; K29.70 Gastritis, unspecified, without bleeding; E11.40 Type 2 diabetes mellitus with diabetic neuropathy, unspecified; M75.52 Bursitis of left shoulder; W19.XXXA Unspecified fall, initial encounter; K57.30 Diverticulosis of large intestine without perforation or abscess without bleeding; H02.104 Unspecified ectropion of left upper eyelid; Z85.850 Personal history of malignant neoplasm of thyroid; Z85.828 Personal history of other malignant neoplasm of skin
CPT/HCPCS: 36415; 70450-TC; 71045-TC-FY; 73030-TC-LT-FY; 80048; 80053; 80061; 81003; 81015; 82009; 82550; 82607; 82962; 83036; 83605; 83721; 83735; 84443; 84484; 85025; 85027; 85610; 87040; 87086; 87186; 93005; 93010; 97116-GP; 97161-GP; 99285-25; G0378; Q0162

== ENCOUNTER 2018-03-30 09:11 | Inpatient (IN) | payer OTHER ==
[2018-03-30] MEDS ORDERED: ONDANSETRON 4 MG/2 ML VIAL IVPUSH ONE ×2 (10:02→17:11)
[2018-03-30 10:20] VITALS: BMI 35.7
[2018-03-30] MEDS ORDERED: ONDANSETRON 4 MG/2 ML VIAL ONE ×2 (10:20→18:05)
--- NOTE | 2018-03-30 10:39 | PDOC ---
History of Present Illness - General Chief Complaint: Chest Pain Stated Complaint: Chest Pain Time Seen by Provider: 03/30/18 09:25 History Source: Patient, Family (daughter) Exam Limitations: No Limitations - History of Present Illness Initial Comments: 03/30/18 10:08 87 yo female pmh of HTN, IDDM, gastroparesis, CAD, s/p PCI to LAD, RCA in 2009 and 2011, paroxsysmal afib on eliquis, COPD, GI bleeding, diverticulosis, hypothyroidism and recent admission (03/18/2012) for epigastric pain and NB/NB vomiting (discharged 03/26/2018) presents to the ED for CP that started last night. Pt daughter provides HPI. EMS gave asa. States patient pain started while resting at home last night, pain is located left upper chest, described as sharp, non radiating and made worse with exertion, deep inspiration and palpation to chest. Pt has hx of chronic epigastric abdominal pain and nausea/ vomiting, admits to epigastric abdominal pain and vomiting this am without acute change. Past History - Past Medical History Allergies/Adverse Reactions: Allergies Allergy/AdvReac Type Severity Reaction Status Date / Time vancomycin AdvReac Itching Verified 03/30/18 10:20 Home Medications: Ambulatory Orders Apixaban [Eliquis -] 2.5 mg PO BID tablet 02/27/18 Aspirin Coated [Ecotrin -] 81 mg PO DAILY tablet.ec 02/27/18 Atorvastatin Ca [Lipitor] 20 mg PO HS tablet 02/27/18 Isosorbide Mononitrate [Imdur -] 30 mg PO DAILY tab.sr.24h 02/27/18 Levothyroxine [Synthroid -] 125 mcg PO DAILY@0700 #30 tablet 02/27/18 Metoprolol Tartrate [Lopressor -] 50 mg PO BID tablet 02/27/18 Pantoprazole Sodium [Protonix -] 40 mg PO BID #60 tablet.ec 02/27/18 Polyethylene Glycol 3350 [Miralax 119 gm Btl -] 17 gm PO DAILY bottle 02/27/18 Sulfacetamide Sodium 10% [Bleph-10 Ophthalmic Solution -] 1 drop OS Q3H drops 02/27/18 Metoclopramide HCl [Reglan -] 5 mg PO TIDAC 03/18/18 Cefuroxime Axetil [Ceftin -] 500 mg PO BID #6 tablet 03/25/18 Docusate Sodium [Colace -] 100 mg PO BID capsule 03/25/18 Levothyroxine [Synthroid -] 88 mcg PO DAILY@0700 #30 tablet 03/25/18 Lidocaine Patch Removal [Lidoderm Patch Removal] 1 each MC DAILY@2200 #30 each 03/25/18 Nystatin Powder [Nystop Powder -] 1 applic TP DAILY #1 bottle 03/25/18 Ondansetron [Zofran Odt -] 4 mg SL Q8H #30 tab.rapdis 03/25/18 Sennosides [Senna -] 2 tab PO HS tablet 03/25/18 Sitagliptin Phosphate [Januvia -] 50 mg PO DAILY@0700 #30 tablet 03/25/18 metroNIDAZOLE [Flagyl -] 500 mg PO TID #9 tablet 03/25/18 Anemia: No Asthma: Yes Cancer: Yes (SKIN) Cardiac Disorders: Yes (MITRAL VALVE PROLAPSE) CVA: No COPD: Yes CHF: Yes Dementia: Yes (early onset) Diabetes: Yes GI Disorders: Yes Disorders: No HTN: Yes Hypercholesterolemia: Yes Liver Disease: Yes (FATTY LIVER) Seizures: No Thyroid Disease: Yes - Surgical History Abdominal Surgery: Yes Cholecystectomy: Yes - Suicide/Smoking/Psychosocial Hx Smoking Status: Yes Smoking History: Never smoked Have you smoked in the past 12 months: No Number of Cigarettes Smoked Daily: 0 If you are a former smoker, when did you quit?: 1985 Cigars Per Day: 0 Hx Alcohol Use: No Drug/Substance Use Hx: No Substance Use Type: None Hx Substance Use Treatment: Yes Review of Systems - Review of Systems Constitutional: Yes: Chills Respiratory: Yes: Shortness of Breath Cardiac (ROS): Yes: Chest Pain ABD/GI: Yes: Nausea, Vomiting. No: Constipated, Diarrhea : No: Burning, Dysuria Neurological: No: Headache *Physical Exam - Physical Exam General Appearance: Yes: Nourished, Appropriately Dressed. No: Apparent Distress HEENT: positive: EOMI Respiratory/Chest: positive: Chest Tender (to palpation), Lungs Clear, Normal Breath Sounds. negative: Crackles, Wheezing Cardiovascular: positive: Regular Rhythm, Regular Rate. negative: Edema, Murmur Vascular Pulses: Dorsalis-Pedis (R): 3+, Doralis-Pedis (L): 3+ Gastrointestinal/Abdominal: positive: Normal Bowel Sounds, Soft, Tenderness ( diffuse but distrasctable). negative: Distended, Guarding, Rebound Integumentary: positive: Normal Color, Dry, Warm Neurologic: positive: Alert, Normal Mood/Affect, Normal Response Heart Score/ECG Review - History History: Slightly suspicious - Age Age: >/= 65 - Risk Factors Risk Factors Heart Score: Yes Hx Hypercholesterolemia, Yes Hx Hypertension, Yes Hx Diabetes, Yes Hx Obesity Based on the list above the patient has:: >/=3 risk factors or Hx atherosclerotic disease - Troponin Troponin: </= normal limit - ECG Intrepretation Rhythm: Regular Rhythm ED Treatment Course - LABORATORY CBC & Chemistry Diagram: 03/30/18 10:35 03/30/18 10:35 - RADIOLOGY Radiology Studies Ordered: Category Date Time Status CHEST X-RAY PORTABLE* [RAD] Stat Radiology 03/30/18 09:59 Ordered Medical Decision Making - Medical Decision Making 03/30/18 12:45 87 yo female with multiple ACS risk factors presents to the ED with CP since last night. Pt received ASA by EMS Vitals WNL Trops negative X2 EKG shows no change from previous DDX includes but is not limited to: ACS, chronic epigastric abdominal pain/GERD , costochondritis Pt assessed by Dr. Gross who would like protonix, reglan and zofran ordered pt admitted to [facility] due to elevated heart score. 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
--- NOTE | 2018-03-30 10:52 | PDOC ---
Attending Attestation - HPI HPI: This patient is an 87 year old Indonesian-speaking female with PMHx of HTN, IDDM, gastroparesis, diverticulosis, CAD, hypothyroidism, who presents with her daughter for chest pain and nausea since last night. Patient is well-known to the ER and was last seen on 03/26/18 for similar symptoms. She describes her chest pain as a tightness that comes and goes, does not radiate, states that it hurts when she touches her chest. She states she has had this chest pain in the past but today is worse. She also endorses shortness of breath. Patient is mostly in bed and does not ambulate normally. Denies vomiting. PCP: Tyrell Mcgovern 03/30/18 12:51 - Physicial Exam PE: Vitals: Triage Vital signs reviewed General Appearance: no acute distress, well nourished, well developed, Head: Atraumatic, normocephalic Chest Wall: Nontender Cardiac: Regular rate and rhythm, no murmurs, no rubs, no gallops, Lungs: Clear to auscultation bilateral, good air movement bilaterally, Abdomen: Soft, nondistended, normal bowel sounds, nontender to palpation Extremities: No cyanosis, clubbing, or edema Skin: Warm and dry, no rashes or lesions, no petechiae Psych: normal mood, normal affect - Medical Decision Making 12:47 Paged MI Jimenez re: admission. 03/30/18 12:47 <Jailene Almonte - Last Filed: 03/30/18 14:14> - Resident Resident Name: Vitor Peñaloza - ED Attending Attestation I have performed the following: I have examined & evaluated the patient, The case was reviewed & discussed with the resident, I agree w/resident's findings & plan, Exceptions are as noted - Medical Decision Making 87 years old with chest pain. Heart score 4. First troponin negative We'll observe overnight for cardiology consultation and further management. <Amos Ernandez - Last Filed: 03/30/18 14:47> Heart Score/ECG Review - History History: Slightly suspicious - Electrocardiogram EKG: Normal - Age Age: >/= 65 - Risk Factors Risk Factors Heart Score: Yes Hx Hypercholesterolemia, Yes Hx Hypertension, Yes Hx Diabetes Based on the list above the patient has:: 1-2 risk factors - Troponin Troponin: </= normal limit - Score Heart Score - Total: 4 <Amos Ernandez - Last Filed: 03/30/18 14:47>
[2018-03-30 11:09] LABS: BASO % 0.5 % (0-2.0); EOS % 1.1 % (0-4.5); HEMATOCRIT 41.4 % (32.4-45.2); HEMOGLOBIN 14.4 GM/dL (10.7-15.3); LYMPH % 22.4 % (8-40); MCH 31.9 pg (25.7-33.7); MCHC 34.7 g/dl (32.0-36.0); MEAN CELL VOLUME 92.1 fl (80-96); MONO % 9.9 % (3.8-10.2); NEUT % 66.1 % (42.8-82.8); PLATELET COUNT 224 K/MM3 (134-434); RDW 15.4 % (11.6-15.6); WHITE BLOOD COUNT 9.3 K/mm3 (4.0-10.0)
[2018-03-30 11:16] LABS: INR 1.06 (0.83-1.09); PROTHROMBIN TIME (PATIENT) 12.5 SEC (9.7-13.0)
[2018-03-30 12:00] LABS: ALBUMIN 2.7 g/dl (3.4-5.0); ALK PHOS 53 U/L (45-117); ANION GAP 9 MMOL/L (8-16); BILIRUBIN,TOTAL 0.6 mg/dL (0.2-1); BLOOD UREA NITROGEN 6 mg/dL (7-18); CALCIUM 8.1 mg/dL (8.5-10.1); CHLORIDE 100 mmol/L (98-107); CO2 30 mmol/L (21-32); CREATININE 0.7 mg/dL (0.55-1.3); GLUCOSE,RANDOM 271 mg/dL (74-106); MAGNESIUM 1.7 mg/dL (1.8-2.4); POTASSIUM 3.3 mmol/L (3.5-5.1); SGOT/AST 19 U/L (15-37); SGPT/ALT 16 U/L (13-61); SODIUM 139 mmol/L (136-145); TOT PROT 5.6 g/dl (6.4-8.2)
--- NOTE | 2018-03-30 15:52 | HP ---
Admitting History and Physical - Primary Care Physician PCP: Tyrell Back - Admission Chief Complaint: Chest pain with nausea x last night History of Present Illness: Patient is an 87 y/o female with past medical history of HTN, IDDM, gastroparesis, diverticulosis, CAD, hypothyroidism. Patient started experiencing chest pain with nausea last night. Chest pain is located mid chest and does not radiate. Also complain of experiencing SOB. Later in ED experiencing coffee ground vomitus, GI consult made. 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 2011 dobut MIBI: no STs ; moderate reversible defect anterior and lateral faith confounded by large breast shadow; nl EF -> pt didn't follow as outpt as planned (was on DATP for a little while). Echo 09/13: nl LVEF, nl RV, nl valve fxn), HTN, Hyperlipdemia Pulmonary: Yes: COPD Gastrointestinal: Yes: Constipation Heme/Onc: Yes: Cancer (thyroid) Endocrine: Yes: Diabetes Mellitus (insulin-dependent for years -> uncontrolled) , Hypothyroidism Dermatology: Yes: Cellulitis (in past, with chronic and intermittent edema) - Smoking History Smoking history: Never smoked Have you smoked in the past 12 months: No Aproximately how many cigarettes per day: 0 If you are a former smoker, when did you quit?: 1984 - Alcohol/Substance Use Hx Alcohol Use: No History of Substance Use: reports: None - Social History Usual Living Arrangement: Yes: With Spouse ADL: Family Assistance History of Recent Travel: No Home Medications - Allergies Allergies/Adverse Reactions: Allergies Allergy/AdvReac Type Severity Reaction Status Date / Time vancomycin AdvReac Itching Verified 03/30/18 10:20 - Home Medications Home Medications: Ambulatory Orders Apixaban [Eliquis -] 2.5 mg PO BID tablet 02/27/18 Aspirin Coated [Ecotrin -] 81 mg PO DAILY tablet.ec 02/27/18 Atorvastatin Ca [Lipitor] 20 mg PO HS tablet 02/27/18 Isosorbide Mononitrate [Imdur -] 30 mg PO DAILY tab.sr.24h 02/27/18 Levothyroxine [Synthroid -] 125 mcg PO DAILY@0700 #30 tablet 02/27/18 Metoprolol Tartrate [Lopressor -] 50 mg PO BID tablet 02/27/18 Pantoprazole Sodium [Protonix -] 40 mg PO BID #60 tablet.ec 02/27/18 Polyethylene Glycol 3350 [Miralax 119 gm Btl -] 17 gm PO DAILY bottle 02/27/18 Sulfacetamide Sodium 10% [Bleph-10 Ophthalmic Solution -] 1 drop OS Q3H drops 02/27/18 Metoclopramide HCl [Reglan -] 5 mg PO TIDAC 03/18/18 Cefuroxime Axetil [Ceftin -] 500 mg PO BID #6 tablet 03/25/18 Docusate Sodium [Colace -] 100 mg PO BID capsule 03/25/18 Levothyroxine [Synthroid -] 88 mcg PO DAILY@0700 #30 tablet 03/25/18 Lidocaine Patch Removal [Lidoderm Patch Removal] 1 each MC DAILY@2200 #30 each 03/25/18 Nystatin Powder [Nystop Powder -] 1 applic TP DAILY #1 bottle 03/25/18 Ondansetron [Zofran Odt -] 4 mg SL Q8H #30 tab.rapdis 03/25/18 Sennosides [Senna -] 2 tab PO HS tablet 03/25/18 Sitagliptin Phosphate [Januvia -] 50 mg PO DAILY@0700 #30 tablet 03/25/18 metroNIDAZOLE [Flagyl -] 500 mg PO TID #9 tablet 03/25/18 Family Disease History - Family Disease History Family Disease History: Diabetes: Daughter Review of Systems - Review of Systems Constitutional: reports: No Symptoms Eyes: reports: No Symptoms HENT: reports: No Symptoms Neck: reports: No Symptoms Cardiovascular: reports: Chest Pain (mid chest, non radiating) Respiratory: reports: SOB Gastrointestinal: reports: Nausea Genitourinary: reports: No Symptoms Breasts: reports: No Symptoms Reported Musculoskeletal: reports: Muscle Weakness Integumentary: reports: No Symptoms Neurological: reports: No Symptoms Endocrine: reports: No Symptoms Hematology/Lymphatic: reports: No Symptoms Psychiatric: reports: No Symptoms Physical Examination Vital Signs: Vital Signs Temperature 98.5 F 03/30/18 14:42 Pulse Rate 89 03/30/18 14:42 Respiratory Rate 18 03/30/18 14:42 Blood Pressure 131/72 03/30/18 14:42 O2 Sat by Pulse Oximetry (%) 96 03/30/18 14:42 Constitutional: Yes: Well Nourished, Mild Distress Eyes: Yes: Conjunctiva Clear Neck: Yes: Supple Cardiovascular: Yes: Regular Rate and Rhythm Respiratory: Yes: Regular, CTA Bilaterally Gastrointestinal: Yes: WNL (non tender), Normal Bowel Sounds, Soft, Abdomen, Obese Renal/: Yes: Incontinence Musculoskeletal: Yes: Muscle Weakness Extremities: Yes: WNL Edema: No Integumentary: Yes: WNL Neurological: Yes: Alert, Oriented Psychiatric: Yes: Alert, Oriented Labs: CBC, BMP 03/30/18 10:35 03/30/18 10:35 Imaging - Results Chest X-ray: Report Reviewed EKG: Report Reviewed Problem List - Problems (1) Chest pain Code(s): R07.9 - CHEST PAIN, UNSPECIFIED Qualifiers: Chest pain type: unspecified Qualified Code(s): R07.9 - Chest pain, unspecified (2) Abdominal pain Code(s): R10.9 - UNSPECIFIED ABDOMINAL PAIN (3) Afib Code(s): I48.91 - UNSPECIFIED ATRIAL FIBRILLATION (4) COPD (chronic obstructive pulmonary disease) Code(s): J44.9 - CHRONIC OBSTRUCTIVE PULMONARY DISEASE, UNSPECIFIED (5) Diabetes mellitus, insulin dependent (IDDM), uncontrolled Code(s): E10.65 - TYPE 1 DIABETES MELLITUS WITH HYPERGLYCEMIA (6) Diverticulitis Code(s): K57.92 - DVTRCLI OF INTEST, PART UNSP, W/O PERF OR ABSCESS W/O BLEED Assessment/Plan -GI consult made, recommendations appreciated -Reglan 10mg q8h, IV protonix, will have endoscopy when medically cleared -due to vomiting CMP STAT to monitor electrolytes -cardiology consult -cont with BP med -cont with Eliquis BID -cont with levothyroxine, will check TSH -SCD for DVT ppx -NPO due to vomiting, will advance diet as tolerated -start on D5NS at 75cc/hr while NPO -PT eval
[2018-03-30] MEDS ORDERED: METOCLOPRAMIDE HCL INJECTION 10 MG/2 ML VIAL IVPUSH ONE (17:11)
[2018-03-30] MEDS ORDERED: PANTOPRAZOLE SODIUM 40 MG VIAL IVPUSH ONE (17:12)
--- NOTE | 2018-03-30 17:30 | CON.GI ---
Consult Consult Specialty:: GI - History of Present Illness History of Present Illness: Patient has developed epigastric pain and chest pain associated with coffee ground vomitus. [place] known to me with several admissions. 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 2011 dobut MIBI: no STs ; moderate reversible defect anterior and lateral faith confounded by large breast shadow; nl EF -> pt didn't follow as outpt as planned (was on DATP for a little while). Echo 09/13: nl LVEF, nl RV, nl valve fxn), HTN, Hyperlipdemia Pulmonary: Yes: COPD Gastrointestinal: Yes: Constipation Endocrine: Yes: Diabetes Mellitus (insulin-dependent for years -> uncontrolled) , Hypothyroidism Dermatology: Yes: Cellulitis (in past, with chronic and intermittent edema) - Alcohol/Substance Use Hx Alcohol Use: No History of Substance Use: reports: None - Smoking History Smoking history: Never smoked Have you smoked in the past 12 months: No Aproximately how many cigarettes per day: 0 If you are a former smoker, when did you quit?: 1984 - Social History Usual Living Arrangement: With Spouse (who is on HD) ADL: Family Assistance History of Recent Travel: No Home Medications - Allergies Allergies/Adverse Reactions: Allergies Allergy/AdvReac Type Severity Reaction Status Date / Time vancomycin AdvReac Itching Verified 03/30/18 10:20 - Home Medications Home Medications: Ambulatory Orders Apixaban [Eliquis -] 2.5 mg PO BID tablet 02/27/18 Aspirin Coated [Ecotrin -] 81 mg PO DAILY tablet.ec 02/27/18 Atorvastatin Ca [Lipitor] 20 mg PO HS tablet 02/27/18 Isosorbide Mononitrate [Imdur -] 30 mg PO DAILY tab.sr.24h 02/27/18 Levothyroxine [Synthroid -] 125 mcg PO DAILY@0700 #30 tablet 02/27/18 Metoprolol Tartrate [Lopressor -] 50 mg PO BID tablet 02/27/18 Pantoprazole Sodium [Protonix -] 40 mg PO BID #60 tablet.ec 02/27/18 Polyethylene Glycol 3350 [Miralax 119 gm Btl -] 17 gm PO DAILY bottle 02/27/18 Sulfacetamide Sodium 10% [Bleph-10 Ophthalmic Solution -] 1 drop OS Q3H drops 02/27/18 Metoclopramide HCl [Reglan -] 5 mg PO TIDAC 03/18/18 Cefuroxime Axetil [Ceftin -] 500 mg PO BID #6 tablet 03/25/18 Docusate Sodium [Colace -] 100 mg PO BID capsule 03/25/18 Levothyroxine [Synthroid -] 88 mcg PO DAILY@0700 #30 tablet 03/25/18 Lidocaine Patch Removal [Lidoderm Patch Removal] 1 each MC DAILY@2200 #30 each 03/25/18 Nystatin Powder [Nystop Powder -] 1 applic TP DAILY #1 bottle 03/25/18 Ondansetron [Zofran Odt -] 4 mg SL Q8H #30 tab.rapdis 03/25/18 Sennosides [Senna -] 2 tab PO HS tablet 03/25/18 Sitagliptin Phosphate [Januvia -] 50 mg PO DAILY@0700 #30 tablet 03/25/18 metroNIDAZOLE [Flagyl -] 500 mg PO TID #9 tablet 03/25/18 Family Disease History - Family Disease History Family Disease History: Diabetes: Daughter Physical Exam-GI Vital Signs: Vital Signs Temperature 98.5 F 03/30/18 14:42 Pulse Rate 89 03/30/18 14:42 Respiratory Rate 18 03/30/18 14:42 Blood Pressure 131/72 03/30/18 14:42 O2 Sat by Pulse Oximetry (%) 96 03/30/18 14:42 Constitutional: Yes: Well Nourished Eyes: Yes: Conjunctiva Clear HENT: Yes: Atraumatic Neck: Yes: Supple Cardiovascular: Yes: Regular Rate and Rhythm Respiratory: Yes: CTA Bilaterally ...Palpate: Yes: Soft, Tenderness, Epigastium. No: Firm/Rigid, Guarding, Hepatomegaly, Mass, Pulsatile Mass, Splenomegaly, Tenderness Labs: CBC, BMP 03/30/18 10:35 03/30/18 10:35 INR, PTT INR 1.06 (0.83-1.09) 03/30/18 10:35 Problem List - Problems (1) Coffee ground emesis Assessment/Plan: R>IV Protonix Reglan 10mg q 8 hours will need EGD once meidcally cleared Code(s): K92.0 - HEMATEMESIS
[2018-03-30] MEDS ORDERED: METOCLOPRAMIDE HCL INJECTION 10 MG/2 ML VIAL ONE (18:04)
[2018-03-30] MEDS: ONDANSETRON 4 MG/2 ML VIAL IVPB SCH ×2 (18:08→21:45)
[2018-03-30] MEDS: METOCLOPRAMIDE HCL INJECTION 10 MG/2 ML VIAL IVPB SCH (18:08)
--- NOTE | 2018-03-30 19:11 | EKG ---
Test Reason : Blood Pressure : / mmHG Vent. Rate : 115 BPM Atrial Rate : 115 BPM P-R Int : 000 ms QRS Dur : 090 ms QT Int : 374 ms P-R-T Axes : 000 -27 096 degrees QTc Int : 517 ms POOR DATA QUALITY, INTERPRETATION MAY BE ADVERSELY AFFECTED SINUS TACHYCARDIA LEFT VENTRICULAR HYPERTROPHY WITH REPOLARIZATION ABNORMALITY CANNOT RULE OUT SEPTAL INFARCT (CITED ON OR BEFORE 18-MAR-2018) ABNORMAL ECG WHEN COMPARED WITH ECG OF 18-MAR-2018 16:31, ND INTERVAL HAS DECREASED VENT. RATE HAS INCREASED BY 43 BPM SERIAL CHANGES OF SEPTAL INFARCT PRESENT Confirmed by NYASIA MARQUEZ, ANA ([id number]) on 03/30/2018 7:11:07 PM Referred By: Confirmed By:ANA MURRELL MD
[2018-03-30] MEDS ORDERED: DEXTROSE 5%-NORMAL SALINE 1,000 ML IV SCH (19:45)
[2018-03-30] MEDS: PANTOPRAZOLE SODIUM 80 MG in SODIUM CHLORIDE 100 ML IVPB SCH (20:00)
[2018-03-30] MEDS: SULFACETAMIDE SODIUM 10% OPHTHALMIC DROPS 15 ML BOTTLE OS SCH ×2 (20:00→23:00)
[2018-03-30] MEDS: SENNOSIDES 8.6MG TABLET (FP) PO SCH (22:05)
[2018-03-30] MEDS: METOPROLOL TARTRATE 50 MG TABLET (FP) PO SCH (22:06)
[2018-03-30] MEDS: APIXABAN 2.5 MG TABLET PO SCH (22:06)
[2018-03-30 22:26] LABS: ALBUMIN 2.5 g/dl (3.4-5.0); ALK PHOS 48 U/L (45-117); BILIRUBIN,TOTAL 0.6 mg/dL (0.2-1); BLOOD UREA NITROGEN 9 mg/dL (7-18); CHLORIDE 100 mmol/L (98-107); CREATININE 0.7 mg/dL (0.55-1.3); GLUCOSE,RANDOM 243 mg/dL (74-106); POTASSIUM 3.4 mmol/L (3.5-5.1); SGOT/AST 22 U/L (15-37); SGPT/ALT 15 U/L (13-61); SODIUM 139 mmol/L (136-145); TOT PROT 5.3 g/dl (6.4-8.2)
[2018-03-30 22:27] LABS: ANION GAP 8 MMOL/L (8-16); CO2 31 mmol/L (21-32)
[2018-03-31] MEDS: ONDANSETRON 4 MG/2 ML VIAL IVPB SCH ×2 (01:43→05:24)
[2018-03-31] MEDS: SULFACETAMIDE SODIUM 10% OPHTHALMIC DROPS 15 ML BOTTLE OS SCH ×8 (01:44→23:27)
[2018-03-31] MEDS: METOCLOPRAMIDE HCL INJECTION 10 MG/2 ML VIAL IVPB SCH ×2 (01:44→09:23)
[2018-03-31] MEDS: PANTOPRAZOLE SODIUM 80 MG in SODIUM CHLORIDE 100 ML IVPB SCH ×2 (03:45→15:03)
[2018-03-31] MEDS: sitaGLIPtin PHOSPHATE 50 MG TABLET PO SCH (06:23)
[2018-03-31] MEDS ORDERED: LEVOTHYROXINE NA 88 MCG TABLET (FP) PO SCH (07:00)
[2018-03-31 07:31] LABS: HEMATOCRIT 41.8 % (32.4-45.2); HEMOGLOBIN 13.5 GM/dL (10.7-15.3); MCH 30.6 pg (25.7-33.7); MCHC 32.4 g/dl (32.0-36.0); MEAN CELL VOLUME 94.5 fl (80-96); MEAN PLT VOLUME 8.9 fl (7.5-11.1); PLATELET COUNT 190 K/MM3 (134-434); RBC 4.42 M/mm3 (3.60-5.2); RDW 15.6 % (11.6-15.6)
[2018-03-31] MEDS ORDERED: ONDANSETRON 4 MG/2 ML VIAL IVPB PRN (08:00)
[2018-03-31 08:49] LABS: ALBUMIN 2.5 g/dl (3.4-5.0); ALK PHOS 49 U/L (45-117); ANION GAP 8 MMOL/L (8-16); BILIRUBIN,TOTAL 0.8 mg/dL (0.2-1); BLOOD UREA NITROGEN 9 mg/dL (7-18); CALCIUM 7.8 mg/dL (8.5-10.1); CHLORIDE 101 mmol/L (98-107); CO2 32 mmol/L (21-32); CREATININE 0.7 mg/dL (0.55-1.3); GLUCOSE,RANDOM 255 mg/dL (74-106); POTASSIUM 3.4 mmol/L (3.5-5.1); SGOT/AST 19 U/L (15-37); SGPT/ALT 14 U/L (13-61); SODIUM 141 mmol/L (136-145); TOT PROT 5.1 g/dl (6.4-8.2)
[2018-03-31] MEDS: METOPROLOL TARTRATE 50 MG TABLET (FP) PO SCH ×2 (09:23→21:24)
[2018-03-31] MEDS: ISOSORBIDE MONONITRATE 30 MG TAB.SR.24H (FP) PO SCH (09:23)
[2018-03-31] MEDS ORDERED: POTASSIUM CHLORIDE ORAL LIQUID 20 MEQ/15 ML PO ONE (11:27)
--- NOTE | 2018-03-31 11:38 | PN ---
Progress Note, Physician Chief Complaint: Upper GI bleed Chest pain History of Present Illness: NAD No N/V/D Seen by GI recommended EGD On protonix drip - Current Medication List Current Medications: Active Medications Apixaban (Eliquis -) 2.5 mg PO BID [facility] Last Admin: 03/30/18 22:06 Dose: 2.5 mg Pantoprazole Sodium 80 mg/ (Sodium Chloride) 100 mls @ 10 mls/hr IVPB Q10H [facility] Last Admin: 03/31/18 03:45 Dose: 10 mls/hr Dextrose/Sodium Chloride (D5-Ns -) 1,000 mls @ 50 mls/hr IV ASDIR [facility] Isosorbide Mononitrate (Imdur -) 30 mg PO DAILY [facility] Last Admin: 03/31/18 09:23 Dose: 30 mg Levothyroxine Sodium (Synthroid -) 88 mcg PO DAILY@0700 [facility] Last Admin: 03/31/18 06:23 Dose: 88 mcg Metoclopramide HCl (Reglan Injection -) 10 mg IVPB Q8H [facility] Last Admin: 03/31/18 09:23 Dose: 10 mg Metoprolol Tartrate (Lopressor -) 50 mg PO BID [facility] Last Admin: 03/31/18 09:23 Dose: 50 mg Ondansetron HCl (Zofran Injection) 4 mg IVPB Q4H PRN PRN Reason: NAUSEA AND/OR VOMITING Potassium Chloride (Potassium Chloride Oral Liquid) 40 meq PO ONCE ONE Stop: 03/31/18 11:28 Senna (Senna -) 2 tab PO HS [facility] Last Admin: 03/30/18 22:05 Dose: 2 tab Sitagliptin Phosphate (Januvia -) 50 mg PO DAILY@0700 [facility] Last Admin: 03/31/18 06:23 Dose: 50 mg Sulfacetamide Sodium (Bleph-10 Ophthalmic Solution -) 1 drop OS Q3H [facility] Last Admin: 03/31/18 09:23 Dose: 1 drop - Objective Vital Signs: Vital Signs Temperature 98.0 F 03/31/18 08:25 Pulse Rate 102 H 03/31/18 08:25 Respiratory Rate 18 03/31/18 08:25 Blood Pressure 150/87 03/31/18 08:25 O2 Sat by Pulse Oximetry (%) 100 03/31/18 10:00 Constitutional: Yes: Well Nourished, No Distress, Calm, Obese Cardiovascular: Yes: Regular Rate and Rhythm Respiratory: Yes: Regular Gastrointestinal: Yes: Normal Bowel Sounds, Soft, Abdomen, Obese Musculoskeletal: Yes: WNL Extremities: Yes: WNL Edema: No Peripheral Pulses WNL: Yes Neurological: Yes: Alert, Pre-Existing Deficit Psychiatric: Yes: Alert Labs: CBC, BMP 03/31/18 06:00 03/31/18 06:00 INR, PTT INR 1.06 (0.83-1.09) 03/30/18 10:35 Problem List - Problems (1) Chest pain Assessment/Plan: -atypical -Serial troponins negative -On tele, no change -EKG unremarkable -Cardiology consult pending Code(s): R07.9 - CHEST PAIN, UNSPECIFIED Qualifiers: Chest pain type: unspecified Qualified Code(s): R07.9 - Chest pain, unspecified (2) Coffee ground emesis Assessment/Plan: -Seen by GI -Protonix drip -Hold eliquis for now until UGI bleed is ruled out -Stool OB -Monitor H/H -NPO except meds -EGD once cardiology clearance is done Code(s): K92.0 - HEMATEMESIS (3) Abdominal pain Code(s): R10.9 - UNSPECIFIED ABDOMINAL PAIN (4) Afib Assessment/Plan: -Paroxysmal -SR at the moment -Hold Eliquis until UGI is r/o -Cardiology consult Code(s): I48.91 - UNSPECIFIED ATRIAL FIBRILLATION (5) Diabetes Assessment/Plan: -BGM AC HS -NPO -D51/2 NS change to 50 cc/hr to avoid fluid overload -Last A1c at 8.7 in 02/2018 Code(s): E11.9 - TYPE 2 DIABETES MELLITUS WITHOUT COMPLICATIONS Qualifiers: Diabetes mellitus type: type 2 (6) Hypokalemia Assessment/Plan: -2/2 to NPO -KCL 40 meq once Code(s): E87.6 - HYPOKALEMIA Assessment/Plan see problem list Physical therapy SCD
[2018-03-31] MEDS: APIXABAN 2.5 MG TABLET PO SCH (12:03)
[2018-03-31] MEDS: DEXTROSE 5%-NORMAL SALINE 1,000 ML IV SCH (12:04)
[2018-03-31] MEDS ORDERED: ONDANSETRON 4 MG TABLET PO ONE (14:15)
--- NOTE | 2018-03-31 14:20 | PN ---
GI Progress Note Subjective: tolerating clear liquids, no nausea and vomiting abdominal pain improved, no IV acces - Objective Vital Signs: Vital Signs Temperature 97.8 F 03/31/18 14:16 Pulse Rate 71 03/31/18 14:16 Respiratory Rate 18 03/31/18 14:16 Blood Pressure 119/67 03/31/18 14:16 O2 Sat by Pulse Oximetry (%) 100 03/31/18 10:00 Constitutional: Obese Eyes: Yes: Conjunctiva Clear HENT: Yes: Atraumatic Neck: Yes: Supple Cardiovascular: Yes: Regular Rate and Rhythm Respiratory: Yes: Regular ...Palpate: Yes: Soft, Tenderness, Epigastium. No: Firm/Rigid, Guarding, Hepatomegaly, Mass, Pulsatile Mass, Splenomegaly, Tenderness Labs: CBC, BMP 03/31/18 06:00 03/31/18 06:00 INR, PTT INR 1.06 (0.83-1.09) 03/30/18 10:35 Problem List - Problems (1) Coffee ground emesis Assessment/Plan: R> for possible EGD Monday if medically cleared switch to po meds becauseof poor iv access advance tin am Code(s): K92.0 - HEMATEMESIS
--- NOTE | 2018-03-31 16:15 | CON.CARD ---
Consult Consult Specialty:: Cardiology Reason for Consultation:: Clearance for EGD - History of Present Illness Chief Complaint: Chest pain and nausea History of Present Illness: This is an 87 year old female with a PMH of HTN, IDDM, gastroparesis, diverticulosis, CAD s/p PCI with BMS to LAD, RCA, OM1 in 2009 and 2011, PAF on Eliquis, COD, GI bleeding, and hypothyroidism. She presents now with nausea and chest pain which started last night. The patient is well-known to the ER and was last seen on 03/26/18 for similar symptoms. The chest pain ios non radiating and reproducible. Troponin I 0.04 Echocardiogram 01/29/18 EF 65% -70% EKG Sinus tachycardia at 115 BPM with LVH and LAD. 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 2011 dobut MIBI: no STs ; moderate reversible defect anterior and lateral faith confounded by large breast shadow; nl EF -> pt didn't follow as outpt as planned (was on DATP for a little while). Echo 09/13: nl LVEF, nl RV, nl valve fxn), HTN, Hyperlipdemia Pulmonary: Yes: COPD Gastrointestinal: Yes: Constipation Endocrine: Yes: Diabetes Mellitus (insulin-dependent for years -> uncontrolled) , Hypothyroidism Dermatology: Yes: Cellulitis (in past, with chronic and intermittent edema) - Alcohol/Substance Use Hx Alcohol Use: No History of Substance Use: reports: None - Smoking History Smoking history: Never smoked Have you smoked in the past 12 months: No Aproximately how many cigarettes per day: 0 If you are a former smoker, when did you quit?: 1984 - Social History Usual Living Arrangement: With Spouse (who is on HD) ADL: Family Assistance History of Recent Travel: No Home Medications - Allergies Allergies/Adverse Reactions: Allergies Allergy/AdvReac Type Severity Reaction Status Date / Time vancomycin AdvReac Itching Verified 03/30/18 10:20 - Home Medications Home Medications: Ambulatory Orders Apixaban [Eliquis -] 2.5 mg PO BID tablet 02/27/18 Aspirin Coated [Ecotrin -] 81 mg PO DAILY tablet.ec 02/27/18 Atorvastatin Ca [Lipitor] 20 mg PO HS tablet 02/27/18 Isosorbide Mononitrate [Imdur -] 30 mg PO DAILY tab.sr.24h 02/27/18 Levothyroxine [Synthroid -] 125 mcg PO DAILY@0700 #30 tablet 02/27/18 Metoprolol Tartrate [Lopressor -] 50 mg PO BID tablet 02/27/18 Pantoprazole Sodium [Protonix -] 40 mg PO BID #60 tablet.ec 02/27/18 Polyethylene Glycol 3350 [Miralax 119 gm Btl -] 17 gm PO DAILY bottle 02/27/18 Sulfacetamide Sodium 10% [Bleph-10 Ophthalmic Solution -] 1 drop OS Q3H drops 02/27/18 Metoclopramide HCl [Reglan -] 5 mg PO TIDAC 03/18/18 Cefuroxime Axetil [Ceftin -] 500 mg PO BID #6 tablet 03/25/18 Docusate Sodium [Colace -] 100 mg PO BID capsule 03/25/18 Levothyroxine [Synthroid -] 88 mcg PO DAILY@0700 #30 tablet 03/25/18 Lidocaine Patch Removal [Lidoderm Patch Removal] 1 each MC DAILY@2200 #30 each 03/25/18 Nystatin Powder [Nystop Powder -] 1 applic TP DAILY #1 bottle 03/25/18 Ondansetron [Zofran Odt -] 4 mg SL Q8H #30 tab.rapdis 03/25/18 Sennosides [Senna -] 2 tab PO HS tablet 03/25/18 Sitagliptin Phosphate [Januvia -] 50 mg PO DAILY@0700 #30 tablet 03/25/18 metroNIDAZOLE [Flagyl -] 500 mg PO TID #9 tablet 03/25/18 Family Disease History - Family Disease History Family Disease History: Diabetes: Daughter Vital Signs: Vital Signs Temperature 97.8 F 03/31/18 14:16 Pulse Rate 71 03/31/18 14:16 Respiratory Rate 18 03/31/18 14:16 Blood Pressure 119/67 03/31/18 14:16 O2 Sat by Pulse Oximetry (%) 100 03/31/18 10:00 Constitutional: Yes: No Distress Respiratory: Yes: CTA Bilaterally Gastrointestinal: Yes: Normal Bowel Sounds, Soft Cardiovascular: Yes: Regular Rate and Rhythm Heart Sounds: Yes: S1, S2 (2/6 [place]) Edema: LLE: Trace, RLE: Trace Neurological: Yes: Alert, Oriented - Other Data Labs, Other Data: CBC, BMP 03/31/18 06:00 03/31/18 06:00 INR, PTT INR 1.06 (0.83-1.09) 03/30/18 10:35 Troponin, BNP 03/30/18 15:30 Troponin I 0.04 Troponin, BNP 03/30/18 15:30 Troponin I 0.04 Assessment/Plan 87 year old female with a PMH of HTN, IDDM, gastroparesis, diverticulosis, CAD s /p PCI with BMS to LAD, RCA, OM1 in 2009 and 2011, PAF on Eliquis, COD, GI bleeding, and hypothyroidism. She presents now with nausea and chest pain which started last night. The patient is well-known to the ER and was last seen on for similar symptoms. The chest pain ios non radiating and reproducible. Troponin I 0.04 Echocardiogram 01/29/18 EF 65% -70% EKG Sinus tachycardia at 115 BPM with LVH and LAD. There are no direct cardiac contraindications to EGD AFIB Continue Metoprolol 50 mg PO BID Continue AC with Apixaban 2.5 mg PO BID CAD Continue IMDUR 30 mg po daily
[2018-03-31] MEDS: METOCLOPRAMIDE HCL 10 MG TABLET (FP) PO SCH (17:26)
[2018-03-31] MEDS ORDERED: PT OWN MED DRAWER 7, Y5N ONE (21:21)
[2018-03-31] MEDS: SENNOSIDES 8.6MG TABLET (FP) PO SCH (21:24)
[2018-03-31] MEDS: PANTOPRAZOLE 40 MG TABLET (FP) PO SCH (21:24)
[2018-03-31] MEDS: ACETAMINOPHEN 325 MG TABLET (FP) PO PRN (22:24)
[2018-03-31] MEDS: INSULIN SLIDING SCALE (NOVOLOG) 1 VIAL SQ SCH (22:26)
[2018-04-01] MEDS: SULFACETAMIDE SODIUM 10% OPHTHALMIC DROPS 15 ML BOTTLE OS SCH ×8 (01:55→23:35)
[2018-04-01] MEDS: DEXTROSE 5%-NORMAL SALINE 1,000 ML IV SCH ×2 (03:00→11:40)
[2018-04-01] MEDS: ACETAMINOPHEN 325 MG TABLET (FP) PO PRN (04:30)
[2018-04-01] MEDS: METOCLOPRAMIDE HCL 10 MG TABLET (FP) PO SCH ×3 (06:30→16:52)
[2018-04-01] MEDS: LEVOTHYROXINE NA 100 MCG TABLET (FP) PO SCH (06:30)
[2018-04-01] MEDS: sitaGLIPtin PHOSPHATE 50 MG TABLET PO SCH (06:31)
[2018-04-01] MEDS: INSULIN SLIDING SCALE (NOVOLOG) 1 VIAL SQ SCH ×4 (06:31→21:26)
[2018-04-01 06:36] LABS: SERUM IRON SATURATION 28 % (15-55); TOTAL IRON BINDING CAPACITY 241 ug/dL (250-450); UIBC 174 ug/dL (118-369)
[2018-04-01] MEDS: ISOSORBIDE MONONITRATE 30 MG TAB.SR.24H (FP) PO SCH (10:44)
[2018-04-01] MEDS: PANTOPRAZOLE 40 MG TABLET (FP) PO SCH ×2 (10:44→21:26)
[2018-04-01] MEDS: METOPROLOL TARTRATE 50 MG TABLET (FP) PO SCH ×2 (10:44→21:25)
[2018-04-01] MEDS ORDERED: ONDANSETRON 4 MG/2 ML VIAL IVPB PRN (12:21)
--- NOTE | 2018-04-01 16:36 | PN ---
Progress Note, Physician Chief Complaint: Upper GI bleed Chest pain History of Present Illness: NAD Had vomiting last night and this AM after breakfast Zofran IV given, tolerated lunch well after but smaller appetite Seen by GI recommended EGD On protonix drip Seen and cleared by cardiology for EGD on monday - Current Medication List Current Medications: Active Medications Acetaminophen (Tylenol -) 650 mg PO Q6H PRN PRN Reason: [place]ACHE Last Admin: 04/01/18 04:30 Dose: 650 mg Apixaban (Eliquis -) 2.5 mg PO BID [facility] Last Admin: 03/31/18 12:03 Dose: Not Given Dextrose/Sodium Chloride (D5-Ns -) 1,000 mls @ 50 mls/hr IV ASDIR [facility] Last Admin: 04/01/18 11:40 Dose: Not Given Insulin Aspart (Novolog Vial Sliding Scale -) 1 vial SQ MERGED WITH [facility]; Protocol Last Admin: 04/01/18 11:40 Dose: 4 unit Isosorbide Mononitrate (Imdur -) 30 mg PO DAILY [facility] Last Admin: 04/01/18 10:44 Dose: 30 mg Levothyroxine Sodium (Synthroid -) 100 mcg PO DAILY@0700 [facility] Last Admin: 04/01/18 06:30 Dose: 100 mcg Metoclopramide HCl (Reglan -) 5 mg PO TIDAC [facility] Last Admin: 04/01/18 11:40 Dose: 5 mg Metoprolol Tartrate (Lopressor -) 50 mg PO BID [facility] Last Admin: 04/01/18 10:44 Dose: 50 mg Ondansetron HCl (Zofran Injection) 8 mg IVPB Q8H PRN PRN Reason: NAUSEA AND/OR VOMITING Pantoprazole Sodium (Protonix -) 40 mg PO BID [facility] Last Admin: 04/01/18 10:44 Dose: 40 mg Senna (Senna -) 2 tab PO HS [facility] Last Admin: 03/31/18 21:24 Dose: 2 tab Sitagliptin Phosphate (Januvia -) 50 mg PO DAILY@0700 [facility] Last Admin: 04/01/18 06:31 Dose: 50 mg Sulfacetamide Sodium (Bleph-10 Ophthalmic Solution -) 1 drop OS Q3H [facility] Last Admin: 04/01/18 13:56 Dose: Not Given - Objective Vital Signs: Vital Signs Temperature 97.8 F 04/01/18 15:27 Pulse Rate 55 L 04/01/18 15:27 Respiratory Rate 18 04/01/18 15:27 Blood Pressure 116/53 L 04/01/18 15:27 O2 Sat by Pulse Oximetry (%) 95 04/01/18 10:00 Constitutional: Yes: Well Nourished, No Distress, Calm, Obese Cardiovascular: Yes: Regular Rate and Rhythm Respiratory: Yes: Regular Gastrointestinal: Yes: Normal Bowel Sounds, Soft, Abdomen, Obese Genitourinary: Yes: WNL Musculoskeletal: Yes: Muscle Weakness Extremities: Yes: WNL Edema: No Peripheral Pulses WNL: Yes Neurological: Yes: Alert, Pre-Existing Deficit Psychiatric: Yes: Alert Labs: CBC, BMP 03/31/18 06:00 03/31/18 06:00 INR, PTT INR 1.06 (0.83-1.09) 03/30/18 10:35 Problem List - Problems (1) Chest pain Assessment/Plan: -atypical -Serial troponins negative -On tele, no change -EKG unremarkable -Cardiology consult Code(s): R07.9 - CHEST PAIN, UNSPECIFIED Qualifiers: Chest pain type: unspecified Qualified Code(s): R07.9 - Chest pain, unspecified (2) Coffee ground emesis Assessment/Plan: -Seen by GI -Protonix drip -Hold eliquis for now until UGI bleed is ruled out -Stool OB -Monitor H/H -NPO except meds after midnight -EGD on monday Code(s): K92.0 - HEMATEMESIS (3) Abdominal pain Code(s): R10.9 - UNSPECIFIED ABDOMINAL PAIN (4) Afib Assessment/Plan: -Paroxysmal -SR at the moment -Hold Eliquis until UGI is r/o -Cardiology consult Code(s): I48.91 - UNSPECIFIED ATRIAL FIBRILLATION (5) Diabetes Assessment/Plan: -BGM AC HS -NPO after midnight -D51/2 NS change to 50 cc/hr to avoid fluid overload -Last A1c at 8.7 in 02/2018 Code(s): E11.9 - TYPE 2 DIABETES MELLITUS WITHOUT COMPLICATIONS Qualifiers: Diabetes mellitus type: type 2 (6) Hypokalemia Assessment/Plan: -2/2 to NPO -KCL 40 meq once Code(s): E87.6 - HYPOKALEMIA Assessment/Plan see problem list Physical therapy SCD Patient medically cleared for EGD with acceptable OR risks
[2018-04-01] MEDS: SENNOSIDES 8.6MG TABLET (FP) PO SCH (21:26)
[2018-04-02] MEDS ORDERED: diphenhydrAMINE HCL 25 MG CAPSULE (FP) PO ONE (00:16)
[2018-04-02] MEDS: SULFACETAMIDE SODIUM 10% OPHTHALMIC DROPS 15 ML BOTTLE OS SCH ×8 (03:21→23:42)
[2018-04-02] MEDS: METOCLOPRAMIDE HCL 10 MG TABLET (FP) PO SCH ×3 (06:20→17:05)
[2018-04-02] MEDS: sitaGLIPtin PHOSPHATE 50 MG TABLET PO SCH (06:20)
[2018-04-02] MEDS: LEVOTHYROXINE NA 100 MCG TABLET (FP) PO SCH (06:20)
[2018-04-02] MEDS: INSULIN SLIDING SCALE (NOVOLOG) 1 VIAL SQ SCH ×4 (06:20→21:50)
[2018-04-02 06:47] LABS: BASO % 0.6 % (0-2.0); EOS % 4.3 % (0-4.5); HEMATOCRIT 41.1 % (32.4-45.2); HEMOGLOBIN 13.3 GM/dL (10.7-15.3); LYMPH % 33.7 % (8-40); MCH 30.4 pg (25.7-33.7); MCHC 32.3 g/dl (32.0-36.0); MEAN CELL VOLUME 93.9 fl (80-96); NEUT % 51.4 % (42.8-82.8); PLATELET COUNT 182 K/MM3 (134-434); RBC 4.37 M/mm3 (3.60-5.2); RDW 15.7 % (11.6-15.6); WHITE BLOOD COUNT 6.8 K/mm3 (4.0-10.0)
[2018-04-02 07:30] LABS: ALBUMIN 2.5 g/dl (3.4-5.0); ALK PHOS 50 U/L (45-117); ANION GAP 7 MMOL/L (8-16); BILIRUBIN,TOTAL 0.7 mg/dL (0.2-1); BLOOD UREA NITROGEN 6 mg/dL (7-18); CALCIUM 8.4 mg/dL (8.5-10.1); CHLORIDE 101 mmol/L (98-107); CO2 31 mmol/L (21-32); CREATININE 0.7 mg/dL (0.55-1.3); GLUCOSE,RANDOM 284 mg/dL (74-106); POTASSIUM 3.7 mmol/L (3.5-5.1); SGOT/AST 21 U/L (15-37); SGPT/ALT 16 U/L (13-61); SODIUM 139 mmol/L (136-145); TOT PROT 5.4 g/dl (6.4-8.2)
[2018-04-02] MEDS ORDERED: PT OWN MED DRAWER 7, Y5N ONE (09:48)
--- NOTE | 2018-04-02 12:19 | PN ---
Progress Note, Physician Chief Complaint: AWAKE ALERT X 2 CHART AND NOTES REVIEWED TRANSFERRING TO ENDOSCOPY FOR TESTING - Current Medication List Current Medications: Active Medications Acetaminophen (Tylenol -) 650 mg PO Q6H PRN PRN Reason: HEADACHE Last Admin: 04/01/18 04:30 Dose: 650 mg Apixaban (Eliquis -) 2.5 mg PO BID [facility] Last Admin: 03/31/18 12:03 Dose: Not Given Insulin Aspart (Novolog Vial Sliding Scale -) 1 vial SQ [facility]; Protocol Last Admin: 04/02/18 06:20 Dose: Not Given Isosorbide Mononitrate (Imdur -) 30 mg PO DAILY [facility] Last Admin: 04/01/18 10:44 Dose: 30 mg Levothyroxine Sodium (Synthroid -) 100 mcg PO DAILY@0700 [facility] Last Admin: 04/02/18 06:20 Dose: Not Given Metoclopramide HCl (Reglan -) 5 mg PO TIDAC [facility] Last Admin: 04/02/18 06:20 Dose: Not Given Metoprolol Tartrate (Lopressor -) 50 mg PO BID [facility] Last Admin: 04/01/18 21:25 Dose: 50 mg Ondansetron HCl (Zofran Injection) 8 mg IVPB Q8H PRN PRN Reason: NAUSEA AND/OR VOMITING Pantoprazole Sodium (Protonix -) 40 mg PO BID [facility] Last Admin: 04/01/18 21:26 Dose: 40 mg Senna (Senna -) 2 tab PO HS [facility] Last Admin: 04/01/18 21:26 Dose: 2 tab Sitagliptin Phosphate (Januvia -) 50 mg PO DAILY@0700 [facility] Last Admin: 04/02/18 06:20 Dose: Not Given Sulfacetamide Sodium (Bleph-10 Ophthalmic Solution -) 1 drop OS Q3H [facility] Last Admin: 04/02/18 11:06 Dose: Not Given - Objective Vital Signs: Vital Signs Temperature 98.3 F 04/02/18 09:59 Pulse Rate 63 04/02/18 09:59 Respiratory Rate 18 04/02/18 06:00 Blood Pressure 161/85 04/02/18 09:59 O2 Sat by Pulse Oximetry (%) 98 04/01/18 21:00 Constitutional: Yes: No Distress Eyes: Yes: WNL HENT: Yes: WNL Neck: Yes: WNL Cardiovascular: Yes: Pulse Irregular Respiratory: Yes: WNL Gastrointestinal: Yes: Abdomen, Obese Genitourinary: Yes: Incontinence Musculoskeletal: Yes: Muscle Weakness Extremities: Yes: Other Edema: Yes Integumentary: Yes: Bruising, Erythema Wound/Incision: Yes: Dressing Dry and Intact Neurological: Yes: Pre-Existing Deficit ...Motor Strength: LLE, RLE Psychiatric: Yes: Other Labs: CBC, BMP 04/02/18 05:30 04/02/18 05:30 INR, PTT INR 1.06 (0.83-1.09) 03/30/18 10:35 Problem List - Problems (1) Chest pain Code(s): R07.9 - CHEST PAIN, UNSPECIFIED Qualifiers: Chest pain type: unspecified Qualified Code(s): R07.9 - Chest pain, unspecified (2) Coffee ground emesis Code(s): K92.0 - HEMATEMESIS (3) Abdominal pain Code(s): R10.9 - UNSPECIFIED ABDOMINAL PAIN (4) Acute metabolic encephalopathy Code(s): G93.41 - METABOLIC ENCEPHALOPATHY (5) Acute renal failure Code(s): N17.9 - ACUTE KIDNEY FAILURE, UNSPECIFIED Qualifiers: Acute renal failure type: unspecified Qualified Code(s): N17.9 - Acute kidney failure, unspecified (6) Afib Code(s): I48.91 - UNSPECIFIED ATRIAL FIBRILLATION (7) Gastroparesis due to DM Code(s): E11.43 - TYPE 2 DIABETES W DIABETIC AUTONOMIC (POLY)NEUROPATHY; K31.84 - GASTROPARESIS Assessment/Plan ENDOSCOPY TODAY PPI START LIQUID DIET PER GI THEN ADVANCE TOLERATED ELIQUIS ON HOLD FOR NOW FOR GI BLEED PT EVAL CHECK LABS DAILY
[2018-04-02] MEDS ORDERED: TETRACAINE/BENZOCAINE/BUTAMBEN 20 GM SPR TP ONE (12:51)
[2018-04-02] MEDS: PANTOPRAZOLE 40 MG TABLET (FP) PO SCH ×2 (14:47→21:55)
[2018-04-02] MEDS: ISOSORBIDE MONONITRATE 30 MG TAB.SR.24H (FP) PO SCH (14:47)
[2018-04-02] MEDS: METOPROLOL TARTRATE 50 MG TABLET (FP) PO SCH ×2 (14:47→21:44)
[2018-04-02] MEDS: ACETAMINOPHEN 325 MG TABLET (FP) PO PRN (18:04)
[2018-04-02] MEDS: SENNOSIDES 8.6MG TABLET (FP) PO SCH (21:55)
[2018-04-03] MEDS: SULFACETAMIDE SODIUM 10% OPHTHALMIC DROPS 15 ML BOTTLE OS SCH ×8 (01:45→23:00)
[2018-04-03 06:09] LABS: BASO % 0.7 % (0-2.0); EOS % 4.8 % (0-4.5); HEMATOCRIT 38.9 % (32.4-45.2); HEMOGLOBIN 12.4 GM/dL (10.7-15.3); MCH 30.1 pg (25.7-33.7); MEAN CELL VOLUME 94.2 fl (80-96); MEAN PLT VOLUME 8.8 fl (7.5-11.1); MONO % 11.7 % (3.8-10.2); NEUT % 45.8 % (42.8-82.8); PLATELET COUNT 179 K/MM3 (134-434); RBC 4.13 M/mm3 (3.60-5.2); RDW 15.6 % (11.6-15.6); WHITE BLOOD COUNT 6.1 K/mm3 (4.0-10.0)
[2018-04-03] MEDS: LEVOTHYROXINE NA 100 MCG TABLET (FP) PO SCH (06:12)
[2018-04-03] MEDS: METOCLOPRAMIDE HCL 10 MG TABLET (FP) PO SCH ×3 (06:12→16:35)
[2018-04-03] MEDS: sitaGLIPtin PHOSPHATE 50 MG TABLET PO SCH (06:12)
[2018-04-03] MEDS: INSULIN SLIDING SCALE (NOVOLOG) 1 VIAL SQ SCH ×4 (06:40→21:26)
[2018-04-03 07:23] LABS: ALBUMIN 2.3 g/dl (3.4-5.0); ALK PHOS 48 U/L (45-117); ANION GAP 7 MMOL/L (8-16); BILIRUBIN,TOTAL 0.7 mg/dL (0.2-1); BLOOD UREA NITROGEN 8 mg/dL (7-18); CHLORIDE 105 mmol/L (98-107); CO2 29 mmol/L (21-32); CREATININE 0.6 mg/dL (0.55-1.3); GLUCOSE,RANDOM 213 mg/dL (74-106); POTASSIUM 3.9 mmol/L (3.5-5.1); SGOT/AST 19 U/L (15-37); SGPT/ALT 13 U/L (13-61); SODIUM 142 mmol/L (136-145); TOT PROT 4.9 g/dl (6.4-8.2)
[2018-04-03] MEDS ORDERED: PT OWN MED DRAWER 7, Y5N ONE (09:33)
[2018-04-03] MEDS: PANTOPRAZOLE 40 MG TABLET (FP) PO SCH ×2 (09:38→21:27)
[2018-04-03] MEDS: METOPROLOL TARTRATE 50 MG TABLET (FP) PO SCH ×2 (09:39→21:27)
[2018-04-03] MEDS: ISOSORBIDE MONONITRATE 30 MG TAB.SR.24H (FP) PO SCH (09:39)
[2018-04-03] MEDS: ACETAMINOPHEN 325 MG TABLET (FP) PO PRN ×2 (11:17→17:54)
--- NOTE | 2018-04-03 13:12 | DS ---
Physical Examination Vital Signs: Vital Signs Temperature 98.0 F 04/03/18 06:00 Pulse Rate 74 04/03/18 06:00 Respiratory Rate 20 04/03/18 10:00 Blood Pressure 149/84 04/03/18 06:00 O2 Sat by Pulse Oximetry (%) 97 04/03/18 10:00 Constitutional: Yes: No Distress Eyes: Yes: WNL HENT: Yes: WNL Neck: Yes: WNL Cardiovascular: Yes: WNL Respiratory: Yes: WNL Gastrointestinal: Yes: WNL, Abdomen, Obese Renal/: Yes: WNL Musculoskeletal: Yes: Muscle Weakness Extremities: Yes: Other Edema: Yes Edema: LLE: Trace, RLE: Trace Peripheral Pulses WNL: Yes Integumentary: Yes: WNL Wound/Incision: Yes: Clean/Dry Neurological: Yes: Pre-Existing Deficit ...Motor Strength: LLE, RLE Psychiatric: Yes: WNL Labs: CBC, BMP 04/03/18 06:00 04/03/18 06:00 Discharge Summary Reason For Visit: Chest Pain Current Active Problems Chest pain (Acute) Coffee ground emesis (Acute) Procedures: Principal: egd Hospital Course: hiatal hernia with gastritis found, avoid asa Condition: Stable - Instructions Diet, Activity, Other Instructions: stop aspirin therapy ppi f/u with pmd in 1week Referrals: Tyrell Back MD [Primary Care Provider] - Disposition: VNS/HOME HEALTH CARE - Home Medications Comprehensive Discharge Medication List: Ambulatory Orders Apixaban [Eliquis -] 2.5 mg PO BID tablet 02/27/18 Aspirin Coated [Ecotrin -] 81 mg PO DAILY tablet.ec 02/27/18 Atorvastatin Ca [Lipitor] 20 mg PO HS tablet 02/27/18 Isosorbide Mononitrate [Imdur -] 30 mg PO DAILY tab.sr.24h 02/27/18 Levothyroxine [Synthroid -] 125 mcg PO DAILY@0700 #30 tablet 02/27/18 Metoprolol Tartrate [Lopressor -] 50 mg PO BID tablet 02/27/18 Pantoprazole Sodium [Protonix -] 40 mg PO BID #60 tablet.ec 02/27/18 Polyethylene Glycol 3350 [Miralax 119 gm Btl -] 17 gm PO DAILY bottle 02/27/18 Sulfacetamide Sodium 10% [Bleph-10 Ophthalmic Solution -] 1 drop OS Q3H drops 02/27/18 Metoclopramide HCl [Reglan -] 5 mg PO TIDAC 03/18/18 Cefuroxime Axetil [Ceftin -] 500 mg PO BID #6 tablet 03/25/18 Docusate Sodium [Colace -] 100 mg PO BID capsule 03/25/18 Levothyroxine [Synthroid -] 88 mcg PO DAILY@0700 #30 tablet 03/25/18 Lidocaine Patch Removal [Lidoderm Patch Removal] 1 each MC DAILY@2200 #30 each 03/25/18 Nystatin Powder [Nystop Powder -] 1 applic TP DAILY #1 bottle 03/25/18 Ondansetron [Zofran Odt -] 4 mg SL Q8H #30 tab.rapdis 03/25/18 Sennosides [Senna -] 2 tab PO HS tablet 03/25/18 Sitagliptin Phosphate [Januvia -] 50 mg PO DAILY@0700 #30 tablet 03/25/18 metroNIDAZOLE [Flagyl -] 500 mg PO TID #9 tablet 03/25/18
[2018-04-03] MEDS: SENNOSIDES 8.6MG TABLET (FP) PO SCH (21:27)
[2018-04-03] MEDS: APIXABAN 2.5 MG TABLET PO SCH (21:28)
[2018-04-04] MEDS: SULFACETAMIDE SODIUM 10% OPHTHALMIC DROPS 15 ML BOTTLE OS SCH ×5 (03:10→14:55)
[2018-04-04] MEDS: sitaGLIPtin PHOSPHATE 50 MG TABLET PO SCH (06:29)
[2018-04-04] MEDS: LEVOTHYROXINE NA 100 MCG TABLET (FP) PO SCH (06:29)
[2018-04-04] MEDS: INSULIN SLIDING SCALE (NOVOLOG) 1 VIAL SQ SCH ×2 (06:29→11:44)
[2018-04-04] MEDS: METOCLOPRAMIDE HCL 10 MG TABLET (FP) PO SCH ×2 (06:29→11:45)
[2018-04-04 07:21] LABS: BASO % 0.5 % (0-2.0); EOS % 4.2 % (0-4.5); HEMATOCRIT 41.3 % (32.4-45.2); HEMOGLOBIN 13.2 GM/dL (10.7-15.3); MCH 30.2 pg (25.7-33.7); MEAN CELL VOLUME 94.4 fl (80-96); MEAN PLT VOLUME 8.7 fl (7.5-11.1); MONO % 9.4 % (3.8-10.2); NEUT % 56.9 % (42.8-82.8); PLATELET COUNT 194 K/MM3 (134-434); RBC 4.38 M/mm3 (3.60-5.2); RDW 15.5 % (11.6-15.6); WHITE BLOOD COUNT 7.1 K/mm3 (4.0-10.0)
[2018-04-04 07:36] LABS: ALBUMIN 2.5 g/dl (3.4-5.0); ALK PHOS 51 U/L (45-117); ANION GAP 6 MMOL/L (8-16); BLOOD UREA NITROGEN 7 mg/dL (7-18); CHLORIDE 101 mmol/L (98-107); CO2 31 mmol/L (21-32); CREATININE 0.7 mg/dL (0.55-1.3); GLUCOSE,RANDOM 236 mg/dL (74-106); POTASSIUM 3.8 mmol/L (3.5-5.1); SGOT/AST 18 U/L (15-37); SGPT/ALT 14 U/L (13-61); SODIUM 137 mmol/L (136-145); TOT PROT 5.4 g/dl (6.4-8.2)
[2018-04-04] MEDS ORDERED: PT OWN MED DRAWER 7, Y5N ONE (08:19)
[2018-04-04] MEDS: PANTOPRAZOLE 40 MG TABLET (FP) PO SCH (09:09)
[2018-04-04] MEDS: METOPROLOL TARTRATE 50 MG TABLET (FP) PO SCH (09:09)
[2018-04-04] MEDS: ISOSORBIDE MONONITRATE 30 MG TAB.SR.24H (FP) PO SCH (09:09)
[2018-04-04] MEDS: APIXABAN 2.5 MG TABLET PO SCH (09:09)
--- NOTE | 2018-04-04 09:14 | PN ---
Progress Note (short form) - Note Progress Note: AWAITING TRANSFER TO [facility] FOR SNF/REHAB Problem List - Problems (1) Chest pain Code(s): R07.9 - CHEST PAIN, UNSPECIFIED Qualifiers: Chest pain type: unspecified Qualified Code(s): R07.9 - Chest pain, unspecified (2) Coffee ground emesis Code(s): K92.0 - HEMATEMESIS (3) Abdominal pain Code(s): R10.9 - UNSPECIFIED ABDOMINAL PAIN (4) Acute metabolic encephalopathy Code(s): G93.41 - METABOLIC ENCEPHALOPATHY (5) Acute renal failure Code(s): N17.9 - ACUTE KIDNEY FAILURE, UNSPECIFIED Qualifiers: Acute renal failure type: unspecified Qualified Code(s): N17.9 - Acute kidney failure, unspecified (6) Afib Code(s): I48.91 - UNSPECIFIED ATRIAL FIBRILLATION (7) Gastroparesis due to DM Code(s): E11.43 - TYPE 2 DIABETES W DIABETIC AUTONOMIC (POLY)NEUROPATHY; K31.84 - GASTROPARESIS
--- NOTE | 2018-04-04 11:04 | PATH ---
Surgical Pathology Report Patient Name: TRACY SENA [facility]. Rec. #: [id number] /Age/Gender: 1930 (Age: 87) / F Account: [id number] Location: 4 PEDS/ADOL Taken: 04/02/2018 Received: 04/02/2018 Reported: 04/04/2018 Physicians: Veronica Smallwood M.D. Specimen(s) Received BX BODY Clinical History Coffee ground vomitus Postoperative diagnosis: Paraesophageal sliding hernia 6 cm, inflammation body Final Diagnosis STOMACH, BODY, BIOPSY: GASTRIC BODY MUCOSA WITH MILD CHRONIC GASTRITIS. IMMUNOHISTOCHEMICAL STAIN FOR H. PYLORI IS NEGATIVE. Electronically Signed Keila Holland M.D. Gross Description Received in formalin, labeled "biopsy body" are 2 jiménez, irregular portions of soft tissue measuring 0.3 and 0.4 cm. in greatest dimension. The specimens are submitted in toto in one cassette. 04/02/201804/02/2018
[2018-04-04 14:38] VITALS: BP 153/69; PULSE 61; TEMP 98
== END 2018-04-04 17:19 | disposition home health service (06) | DRG 391 ==
LOC: JER 09:11 → JERBED 13:49 → J4S 18:49 → OBSVTOIN 23:21 → J4S 04-01 22:41
PROVIDERS: ADMIT Family Medicine; ATTEND Family Medicine
PROC: 0DD68ZX Extraction of Stomach, Via Natural or Artificial Opening Endoscopic, Diagnostic (ICD-10-PCS; principal; 2018-04-02 12:15)
DX: K29.70 Gastritis, unspecified, without bleeding (principal); G93.41 Metabolic encephalopathy; N17.9 Acute kidney failure, unspecified; K44.9 Diaphragmatic hernia without obstruction or gangrene; E10.65 Type 1 diabetes mellitus with hyperglycemia; Z79.4 Long term (current) use of insulin; I10 Essential (primary) hypertension; I48.0 Paroxysmal atrial fibrillation; E89.0 Postprocedural hypothyroidism; E66.9 Obesity, unspecified; Z68.37 Body mass index [BMI] 37.0-37.9, adult; K57.30 Diverticulosis of large intestine without perforation or abscess without bleeding; E78.5 Hyperlipidemia, unspecified; I25.10 Atherosclerotic heart disease of native coronary artery without angina pectoris; Z98.61 Coronary angioplasty status; Z87.891 Personal history of nicotine dependence; Z79.01 Long term (current) use of anticoagulants; J44.9 Chronic obstructive pulmonary disease, unspecified; Z85.828 Personal history of other malignant neoplasm of skin; F03.90 Unspecified dementia, unspecified severity, without behavioral disturbance, psychotic disturbance, mood disturbance, and anxiety; I34.1 Nonrheumatic mitral (valve) prolapse; Z85.850 Personal history of malignant neoplasm of thyroid; E87.6 Hypokalemia; K59.00 Constipation, unspecified; E10.43 Type 1 diabetes mellitus with diabetic autonomic (poly)neuropathy; K31.84 Gastroparesis
CPT/HCPCS: 36415; 71045-TC-FY; 80053; 82009; 82550; 82607; 82728; 82962; 83540; 83550; 83735; 84439; 84443; 84484; 85025; 85027; 85610; 85730; 88305-TC; 93005; 93010; 99283-25; G0378

== ENCOUNTER 2018-04-07 09:41 | Inpatient (IN) | payer OTHER ==
--- NOTE | 2018-04-07 10:09 | PDOC ---
History of Present Illness - General Chief Complaint: Tachycardia Stated Complaint: PALPITATIONS Time Seen by Provider: 04/07/18 10:09 History Source: Patient Exam Limitations: No Limitations Past History - Past Medical History Allergies/Adverse Reactions: Allergies Allergy/AdvReac Type Severity Reaction Status Date / Time vancomycin AdvReac Itching Verified 04/07/18 09:52 Home Medications: Ambulatory Orders Apixaban [Eliquis -] 2.5 mg PO BID tablet 02/27/18 Atorvastatin Ca [Lipitor] 20 mg PO HS tablet 02/27/18 Isosorbide Mononitrate [Imdur -] 30 mg PO DAILY tab.sr.24h 02/27/18 Metoprolol Tartrate [Lopressor -] 50 mg PO BID tablet 02/27/18 Pantoprazole Sodium [Protonix -] 40 mg PO BID #60 tablet.ec 02/27/18 Polyethylene Glycol 3350 [Miralax 119 gm Btl -] 17 gm PO DAILY bottle 02/27/18 Sulfacetamide Sodium 10% [Bleph-10 Ophthalmic Solution -] 1 drop OS Q3H drops 02/27/18 Metoclopramide HCl [Reglan -] 5 mg PO TIDAC 03/18/18 Docusate Sodium [Colace -] 100 mg PO BID capsule 03/25/18 Lidocaine Patch Removal [Lidoderm Patch Removal] 1 each MC DAILY@2200 #30 each 03/25/18 Nystatin Powder [Nystop Powder -] 1 applic TP DAILY #1 bottle 03/25/18 Ondansetron [Zofran Odt -] 4 mg SL Q8H #30 tab.rapdis 03/25/18 Sennosides [Senna -] 2 tab PO HS tablet 03/25/18 Sitagliptin Phosphate [Januvia -] 50 mg PO DAILY@0700 #30 tablet 03/25/18 Acetaminophen [Tylenol .Regular Strength -] 650 mg PO Q6H PRN tablet 04/03/18 Apixaban [Eliquis -] 2.5 mg PO BID tablet 04/03/18 Isosorbide Mononitrate [Imdur -] 30 mg PO DAILY tab.sr.24h 04/03/18 Levothyroxine [Synthroid -] 100 mcg PO DAILY@0700 #30 tablet 04/03/18 Metoclopramide HCl [Reglan -] 5 mg PO TIDAC tablet 04/03/18 Metoprolol Tartrate [Lopressor -] 50 mg PO BID tablet 04/03/18 Pantoprazole Sodium [Protonix -] 40 mg PO BID #60 tablet.ec 04/03/18 Sennosides [Senna -] 2 tab PO HS tablet 04/03/18 Sitagliptin Phosphate [Januvia -] 50 mg PO DAILY@0700 tablet 04/03/18 Sulfacetamide Sodium 10% [Bleph-10 Ophthalmic Solution -] 1 drop OS Q3H drops 04/03/18 Anemia: No Asthma: Yes Cancer: Yes (SKIN) Cardiac Disorders: Yes (MITRAL VALVE PROLAPSE,AFIB) CVA: No COPD: Yes CHF: Yes Dementia: Yes (early onset) Diabetes: Yes GI Disorders: Yes Disorders: No HTN: Yes Hypercholesterolemia: Yes Liver Disease: Yes (FATTY LIVER) Seizures: No Thyroid Disease: Yes - Surgical History Abdominal Surgery: Yes Cholecystectomy: Yes - Suicide/Smoking/Psychosocial Hx Smoking Status: Yes Smoking History: Never smoked Have you smoked in the past 12 months: No Number of Cigarettes Smoked Daily: 0 If you are a former smoker, when did you quit?: 1985 Cigars Per Day: 0 Hx Alcohol Use: No Drug/Substance Use Hx: No Substance Use Type: None Hx Substance Use Treatment: Yes Cardiac Specific PMH - Complaint Specific PMHX Pacemaker: No *Physical Exam - Vital Signs Last Vital Signs Temp Pulse Resp BP Pulse Ox 97.3 F L 118 H 24 H 137/114 H 99 04/07/18 09:53 04/07/18 09:53 04/07/18 09:53 04/07/18 09:53 04/07/18 09:53 Moderate Sedation - Procedure Monitoring Vital Signs: Procedure Monitoring Vital Signs Temperature 97.3 F L 04/07/18 09:53 Pulse Rate 118 H 04/07/18 09:53 Respiratory Rate 24 H 04/07/18 09:53 Blood Pressure 137/114 H 04/07/18 09:53 O2 Sat by Pulse Oximetry (%) 99 04/07/18 09:53 *DC/Admit/Observation/Transfer - Referrals Referrals: Tyrell Back MD [Primary Care Provider] - - Patient Instructions - Post Discharge Activity
[2018-04-07] MEDS ORDERED: morphine CARPU-JECT 2 MG/1 ML DISP.SYRIN IVPUSH ONE (11:29)
[2018-04-07] MEDS ORDERED: MORPHINE SULFATE 2 MG/ML VIAL ONE (11:37)
--- NOTE | 2018-04-07 12:02 | PDOC ---
History of Present Illness - General Chief Complaint: Tachycardia Stated Complaint: PALPITATIONS Time Seen by Provider: 04/07/18 10:09 History Source: Patient Exam Limitations: Language Barrier - History of Present Illness Initial Comments: 04/07/18 13:13 87 year old with history of HTN, DM, gastroparesis, diverticulosis, CAD, hypothyroidism BIBA who presents with multiple episodes of NBNB vomiting that onset yesterday evening. The patient vomiting 2 times and had some associated chest pain and possible shortness of breath prior to calling EMS. The patient still complains of nausea at bedside. The patient admits to some headache but denies diarrhea, constipation, fever, abdominal pain, recent cough, rhinorrhea, denies sick contacts. The patient lives with her . The patient is a poor historian and provides limited further history. PCP: Nazanin Past History - Past Medical History Allergies/Adverse Reactions: Allergies Allergy/AdvReac Type Severity Reaction Status Date / Time vancomycin AdvReac Itching Verified 04/07/18 09:52 Home Medications: Ambulatory Orders Atorvastatin Ca [Lipitor] 20 mg PO HS tablet 02/27/18 Polyethylene Glycol 3350 [Miralax 119 gm Btl -] 17 gm PO DAILY bottle 02/27/18 Docusate Sodium [Colace -] 100 mg PO BID capsule 03/25/18 Lidocaine Patch Removal [Lidoderm Patch Removal] 1 each MC DAILY@2200 #30 each 03/25/18 Nystatin Powder [Nystop Powder -] 1 applic TP DAILY #1 bottle 03/25/18 Ondansetron [Zofran Odt -] 4 mg SL Q8H #30 tab.rapdis 03/25/18 Acetaminophen [Tylenol .Regular Strength -] 650 mg PO Q6H PRN tablet 04/03/18 Apixaban [Eliquis -] 2.5 mg PO BID tablet 04/03/18 Isosorbide Mononitrate [Imdur -] 30 mg PO DAILY tab.sr.24h 04/03/18 Levothyroxine [Synthroid -] 100 mcg PO DAILY@0700 #30 tablet 04/03/18 Metoclopramide HCl [Reglan -] 5 mg PO TIDAC tablet 04/03/18 Metoprolol Tartrate [Lopressor -] 50 mg PO BID tablet 04/03/18 Pantoprazole Sodium [Protonix -] 40 mg PO BID #60 tablet.ec 04/03/18 Sennosides [Senna -] 2 tab PO HS tablet 04/03/18 Sitagliptin Phosphate [Januvia -] 50 mg PO DAILY@0700 tablet 04/03/18 Sulfacetamide Sodium 10% [Bleph-10 Ophthalmic Solution -] 1 drop OS Q3H drops 04/03/18 Anemia: No Asthma: Yes Cancer: Yes (SKIN) Cardiac Disorders: Yes (MITRAL VALVE PROLAPSE,AFIB) CVA: No COPD: Yes CHF: Yes Dementia: Yes (early onset) Diabetes: Yes GI Disorders: Yes Disorders: No HTN: Yes Hypercholesterolemia: Yes Liver Disease: Yes (FATTY LIVER) Seizures: No Thyroid Disease: Yes - Surgical History Abdominal Surgery: Yes Cholecystectomy: Yes - Suicide/Smoking/Psychosocial Hx Smoking Status: Yes Smoking History: Never smoked Have you smoked in the past 12 months: No Number of Cigarettes Smoked Daily: 0 If you are a former smoker, when did you quit?: 1985 Cigars Per Day: 0 Hx Alcohol Use: No Drug/Substance Use Hx: No Substance Use Type: None Hx Substance Use Treatment: Yes Review of Systems - Review of Systems Able to Perform ROS?: Yes Is the patient limited Singaporean proficient: No Constitutional: No: Chills, Diaphoresis, Fever HEENTM: No: Blurred Vision, Tinnitus Respiratory: No: Cough, Orthopnea, Shortness of Breath Cardiac (ROS): Yes: See HPI, Chest Pain. No: Lightheadedness, Palpitations ABD/GI: Yes: Nausea, Vomiting. No: Constipated, Diarrhea : No: Burning, Dysuria, Hematuria, Incontinence Musculoskeletal: No: Back Pain Neurological: No: Headache, Numbness, Tingling *Physical Exam - Vital Signs Last Vital Signs Temp Pulse Resp BP Pulse Ox 97.3 F L 99 H 20 131/72 98 04/07/18 09:53 04/07/18 11:44 04/07/18 11:44 04/07/18 11:44 04/07/18 11:44 - Physical Exam Comments: 04/07/18 13:29 GENERAL: Awake, alert, and fully oriented, in no acute distress, spitting up at bedside, obese HEAD: No signs of trauma, normocephalic, atraumatic EYES: EOMI, sclera anicteric, conjunctiva clear ENT: oropharynx clear without exudates. Moist mucosa NECK: Normal ROM, supple LUNGS: No distress, speaks full sentences, clear to auscultation bilaterally, no wheezes or crackles, slightly decreased breath sounds at bases bilaterally HEART: Regular rate and rhythm, normal S1 and S2, no murmurs, rubs or gallops, peripheral pulses normal and equal bilaterally. ABDOMEN: Soft, diffuse tenderness to palpation, normoactive bowel sounds. No guarding, no rebound. No masses EXTREMITIES : Normal inspection, Normal range of motion, no edema. No clubbing or cyanosis. NEUROLOGICAL: Cranial nerves II through XII grossly intact. Normal speech, no focal sensorimotor deficits SKIN: Warm, Dry, normal turgor, no rashes or lesions noted Moderate Sedation - Procedure Monitoring Vital Signs: Procedure Monitoring Vital Signs Temperature 97.3 F L 04/07/18 09:53 Pulse Rate 99 H 04/07/18 11:44 Respiratory Rate 20 04/07/18 11:44 Blood Pressure 131/72 04/07/18 11:44 O2 Sat by Pulse Oximetry (%) 98 04/07/18 11:44 Heart Score/ECG Review - History History: Moderately suspicious - Electrocardiogram EKG: Non specific repolarization disturbance - Age Age: >/= 65 - Risk Factors Risk Factors Heart Score: Yes Hx Hypertension, Yes Hx Diabetes Based on the list above the patient has:: 1-2 risk factors - Troponin Troponin: </= normal limit - Score Heart Score - Total: 5 ED Treatment Course - LABORATORY CBC & Chemistry Diagram: 04/07/18 13:00 04/07/18 11:25 - Medications Given in the ED: ED Medications Discontinued Medications Generic Name Dose Route Start Last Admin Trade Name Kwesiq PRN Reason Stop Dose Admin Morphine Sulfate 2 mg 04/07/18 11:29 04/07/18 11:44 Morphine Injection - IVPUSH 04/07/18 11:30 2 mg ONCE ONE Administration Medical Decision Making - Medical Decision Making 04/07/18 12:01 87 year old with history of HTN, DM, gastroparesis, diverticulosis, CAD, hypothyroidism BIBA who presents with multiple episodes of NBNB vomiting that onset yesterday evening. The patient vomiting 2 times and had some associated chest pain prior to calling EMS. The chest pain has resolved but the patient still feels nauseous. The patient admits to some headache but denies diarrhea, constipation, fever, abdominal pain, recent cough, rhinorrhea, denies sick contacts. The patient lives with her . The patient is a poor historian and provides limited further history. ED Course: Patient with CXR with possible infiltrate cefepime dosed. EKG: afib w/ RVR at 115bpm, no interval abnormalities, narrow QRS, ST and T wave segments and morphology normal. Nonspecific T wave abnormalities Rpt EKG: sinus tachycardia at 117bpm, no interval abnormalities, narrow QRS, ST and T wave segments and morphology normal. LVH 04/07/18 13:20 bgm: 334 pending labs 04/07/18 13:46 TSH elevated at 5.26 -unclear if patient is compliant with home synthyroid Labwork largely unremarkable However patient with HEART score of 5 and complained of chest pain and with elevated BNP concerned for CHF exacerbation vs r/o ACS vs PNA Consider gastroenteritis however patient without accompanied diarrhea. Also possible gastroparesis exacerbation Likely patient will need admission to medicine for CHF management and Patient admitted to medicine for further workup and evaluation *DC/Admit/Observation/Transfer Diagnosis at time of Disposition: CHF exacerbation - Discharge Dispostion Condition at time of disposition: Stable Decision to Admit order: Yes - Referrals Referrals: Tyrell Back MD [Primary Care Provider] - - Patient Instructions - Post Discharge Activity
--- NOTE | 2018-04-07 12:12 | PDOC ---
Attending Attestation - Resident Resident Name: Ann Paul - HPI HPI: 04/07/18 13:33 Pt presents to the ED complaining of palpitations and nausea and vomiting that began today. Extensive past history as noted in resident note. States that she has been "spitting up" but has not had bloody or billious vomiting. Denies fever or cough. Denies chest pain. Does complain of shortness of breath. Recent hospital admission for GI bleed. 04/07/18 13:36 - Physicial Exam PE: 04/07/18 13:37 Agree with resident exam. PAtient is alert and in no acute distress. Lungs have decreased breath sounds bilaterally. Paitentis alert and oriented x 3 with normal mood and affect. no pedal edema. - Medical Decision Making 04/07/18 13:39 Pt presents to the ED complaining of nausea, vomiting and shortness of breath. Recent hospital admission for GI bleed. CXR shows L sided infiltrate. BNP is more elevated than usual. Troponin is negative. Tachycardia improved without intervention. Lactate and CBC delayed because patient is a very difficult stick and she was refusing further blood draws. Nurse has been able to obtain remaining labs from the IV line. Will start antibiotics and admit to medicine for PNA. CHF remains on the differential, but patient
[2018-04-07] MEDS ORDERED: CEFEPIME HCL/D5W 2 GM/50 ML BAG IVPB ONE (12:21)
[2018-04-07 12:27] LABS: ALBUMIN 2.7 g/dl (3.4-5.0); ALK PHOS 54 U/L (45-117); ANION GAP 13 MMOL/L (8-16); BILIRUBIN,TOTAL 1.1 mg/dL (0.2-1); BLOOD UREA NITROGEN 5 mg/dL (7-18); CHLORIDE 102 mmol/L (98-107); CO2 22 mmol/L (21-32); CREATININE 0.8 mg/dL (0.55-1.3); MAGNESIUM 1.7 mg/dL (1.8-2.4); POTASSIUM 3.6 mmol/L (3.5-5.1); SGOT/AST 19 U/L (15-37); SGPT/ALT 15 U/L (13-61); SODIUM 137 mmol/L (136-145)
[2018-04-07 12:29] LABS: GLUCOSE,RANDOM 334 mg/dL (74-106)
[2018-04-07] MEDS ORDERED: CEFEPIME 2 GM/200 ML BAG IVPB ONE (12:56)
[2018-04-07] MEDS ORDERED: ONDANSETRON 4 MG/2 ML VIAL IVPUSH ONE (13:02)
[2018-04-07] MEDS ORDERED: ONDANSETRON 4 MG/2 ML VIAL ONE (13:07)
[2018-04-07 13:31] LABS: BASO % 0.6 % (0-2.0); EOS % 1.1 % (0-4.5); HEMATOCRIT 41.3 % (32.4-45.2); HEMOGLOBIN 14.2 GM/dL (10.7-15.3); LYMPH % 22.4 % (8-40); MCH 31.6 pg (25.7-33.7); MCHC 34.5 g/dl (32.0-36.0); MEAN CELL VOLUME 91.8 fl (80-96); MEAN PLT VOLUME 9.6 fl (7.5-11.1); MONO % 10.2 % (3.8-10.2); NEUT % 65.7 % (42.8-82.8); PLATELET COUNT 210 K/MM3 (134-434); RDW 15.3 % (11.6-15.6); WHITE BLOOD COUNT 7.8 K/mm3 (4.0-10.0)
[2018-04-07 13:48] LABS: INR 1.04 (0.83-1.09); PROTHROMBIN TIME (PATIENT) 12.3 SEC (9.7-13.0)
[2018-04-07 13:50] LABS: ACTIVATED PTT 31.6 SECONDS (25.2-36.5)
--- NOTE | 2018-04-07 15:49 | HP ---
Admitting History and Physical - Primary Care Physician PCP: Wei Lam - Admission Chief Complaint: COUGH/SOB/DYSPNEA/PALPITATIONS History of Present Illness: 87 year old with history of HTN, DM, gastroparesis, diverticulosis, CAD, hypothyroidism BIBA who presents with multiple episodes of NBNB vomiting that onset yesterday evening. The patient vomiting 2 times and had some associated chest pain and possible shortness of breath prior to calling EMS. The patient still complains of nausea at bedside. The patient admits to some headache but denies diarrhea, constipation, fever, abdominal pain, recent cough, rhinorrhea, denies sick contacts. The patient lives with her . The patient is a poor historian and provides limited further history. History Source: Medical Record Limitations to Obtaining History: Poor Historian - Past Medical History DATA CENTER ARCHITECT: Yes: Dementia, Vertigo Cardiovascular: Yes: CAD (BMS to pLAD, BILLIE to pRCA, then 2009 cath with BILLIE to OM1 (at that time the LAD and RCA stents were patent, residual 80-90% dist LAD small vessel and severe/diffuse dz small diag; nl EF). 2011 dobut MIBI: no STs ; moderate reversible defect anterior and lateral faith confounded by large breast shadow; nl EF -> pt didn't follow as outpt as planned (was on DATP for a little while). Echo 09/13: nl LVEF, nl RV, nl valve fxn), HTN, Hyperlipdemia Pulmonary: Yes: COPD Gastrointestinal: Yes: Constipation Heme/Onc: Yes: Cancer (thyroid) Endocrine: Yes: Diabetes Mellitus (insulin-dependent for years -> uncontrolled) , Hypothyroidism Dermatology: Yes: Cellulitis (in past, with chronic and intermittent edema) - Smoking History Smoking history: Never smoked Have you smoked in the past 12 months: No Aproximately how many cigarettes per day: 0 If you are a former smoker, when did you quit?: 1984 - Alcohol/Substance Use Hx Alcohol Use: No History of Substance Use: reports: None - Social History ADL: Family Assistance History of Recent Travel: No Home Medications - Allergies Allergies/Adverse Reactions: Allergies Allergy/AdvReac Type Severity Reaction Status Date / Time vancomycin AdvReac Itching Verified 04/07/18 09:52 - Home Medications Home Medications: Ambulatory Orders Atorvastatin Ca [Lipitor] 20 mg PO HS tablet 02/27/18 Polyethylene Glycol 3350 [Miralax 119 gm Btl -] 17 gm PO DAILY bottle 02/27/18 Docusate Sodium [Colace -] 100 mg PO BID capsule 03/25/18 Lidocaine Patch Removal [Lidoderm Patch Removal] 1 each MC DAILY@2200 #30 each 03/25/18 Nystatin Powder [Nystop Powder -] 1 applic TP DAILY #1 bottle 03/25/18 Ondansetron [Zofran Odt -] 4 mg SL Q8H #30 tab.rapdis 03/25/18 Acetaminophen [Tylenol .Regular Strength -] 650 mg PO Q6H PRN tablet 04/03/18 Apixaban [Eliquis -] 2.5 mg PO BID tablet 04/03/18 Isosorbide Mononitrate [Imdur -] 30 mg PO DAILY tab.sr.24h 04/03/18 Levothyroxine [Synthroid -] 100 mcg PO DAILY@0700 #30 tablet 04/03/18 Metoclopramide HCl [Reglan -] 5 mg PO TIDAC tablet 04/03/18 Metoprolol Tartrate [Lopressor -] 50 mg PO BID tablet 04/03/18 Pantoprazole Sodium [Protonix -] 40 mg PO BID #60 tablet.ec 04/03/18 Sennosides [Senna -] 2 tab PO HS tablet 04/03/18 Sitagliptin Phosphate [Januvia -] 50 mg PO DAILY@0700 tablet 04/03/18 Sulfacetamide Sodium 10% [Bleph-10 Ophthalmic Solution -] 1 drop OS Q3H drops 04/03/18 Family Disease History - Family Disease History Family Disease History: Diabetes: Daughter Review of Systems - Review of Systems Constitutional: reports: Loss of Appetite, Weakness Eyes: reports: No Symptoms HENT: reports: No Symptoms Neck: reports: No Symptoms Cardiovascular: reports: Palpitations, Shortness of Breath Respiratory: reports: Cough, SOB Gastrointestinal: reports: Vomiting Musculoskeletal: reports: Muscle Weakness Integumentary: reports: No Symptoms Neurological: reports: Parasthesia, Pre-Existing Deficit Endocrine: reports: No Symptoms Hematology/Lymphatic: reports: No Symptoms Psychiatric: reports: No Symptoms Physical Examination Vital Signs: Vital Signs Temperature 98.5 F 04/07/18 12:45 Pulse Rate 101 H 04/07/18 14:26 Respiratory Rate 20 04/07/18 14:26 Blood Pressure 111/65 04/07/18 14:26 O2 Sat by Pulse Oximetry (%) 100 04/07/18 14:26 Constitutional: Yes: Mild Distress Eyes: Yes: WNL HENT: Yes: WNL Neck: Yes: WNL Cardiovascular: Yes: Pulse Irregular Respiratory: Yes: Cough, On Nasal O2, Rhonchi, SOB Gastrointestinal: Yes: Abdomen, Obese Renal/: Yes: Incontinence Musculoskeletal: Yes: Muscle Weakness Extremities: Yes: Other Edema: Yes Neurological: Yes: Pre-Existing Deficit Psychiatric: Yes: WNL Labs: CBC, BMP 04/07/18 13:00 04/07/18 11:25 Imaging - Results Chest X-ray: Report Reviewed Problem List - Problems (1) CHF exacerbation Code(s): I50.9 - HEART FAILURE, UNSPECIFIED (2) Abdominal pain Code(s): R10.9 - UNSPECIFIED ABDOMINAL PAIN Qualifiers: Abdominal location: generalized Qualified Code(s): R10.84 - Generalized abdominal pain (3) Acute metabolic encephalopathy Code(s): G93.41 - METABOLIC ENCEPHALOPATHY (4) Acute renal failure Code(s): N17.9 - ACUTE KIDNEY FAILURE, UNSPECIFIED Qualifiers: Acute renal failure type: unspecified Qualified Code(s): N17.9 - Acute kidney failure, unspecified (5) Afib Code(s): I48.91 - UNSPECIFIED ATRIAL FIBRILLATION (6) Diabetes Code(s): E11.9 - TYPE 2 DIABETES MELLITUS WITHOUT COMPLICATIONS Qualifiers: Diabetes mellitus type: type 2 Diabetes mellitus complication status: with neurologic complications (7) Lung nodule Code(s): R91.1 - SOLITARY PULMONARY NODULE (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 SECONDARY SPANISH TEACHER CONSULT.
[2018-04-07] MEDS: INSULIN SLIDING SCALE (NOVOLOG) 1 VIAL SQ SCH ×2 (17:16→22:46)
[2018-04-07] MEDS ORDERED: SODIUM CHLORIDE NASAL SPRAY 44 ML BOTTLE NS PRN (19:08)
[2018-04-07] MEDS ORDERED: ALBUTEROL SO4 2.5/IPRATROPIUM 0.5 INH SOL 3 ML VIAL.NEB. NEB PRN (19:08)
[2018-04-07] MEDS ORDERED: ACETAMINOPHEN 325 MG TABLET (FP) ONE (19:20)
[2018-04-07] MEDS: SULFACETAMIDE SODIUM 10% OPHTHALMIC DROPS 15 ML BOTTLE OD SCH ×3 (19:35→22:46)
[2018-04-07] MEDS: ACETAMINOPHEN 325 MG TABLET (FP) PO PRN (19:36)
[2018-04-07] MEDS ORDERED: LORATADINE 10 MG TABLET ONE (19:46)
[2018-04-07] MEDS ORDERED: ONDANSETRON *ODT* 4 MG TABLET ONE (19:59)
[2018-04-07] MEDS: ONDANSETRON *ODT* 4 MG TABLET SL PRN (20:08)
[2018-04-07] MEDS: FLUTICASONE PROP 0.05% 16 GM NASAL SPRAY NS SCH (20:09)
[2018-04-07] MEDS: LORATADINE 10 MG TABLET PO SCH (20:09)
[2018-04-07] MEDS: PANTOPRAZOLE 40 MG TABLET (FP) PO SCH (22:45)
[2018-04-07] MEDS: METOPROLOL TARTRATE 50 MG TABLET (FP) PO SCH (22:46)
[2018-04-07] MEDS: ATORVASTATIN CA 20 MG TABLET (FP) PO SCH (22:46)
[2018-04-07] MEDS: SENNOSIDES 8.6MG TABLET (FP) PO SCH (22:46)
[2018-04-07] MEDS: APIXABAN 2.5 MG TABLET PO SCH (22:46)
[2018-04-07 23:42] VITALS: BMI 37.7
[2018-04-08] MEDS: SULFACETAMIDE SODIUM 10% OPHTHALMIC DROPS 15 ML BOTTLE OD SCH ×8 (01:30→21:38)
[2018-04-08] MEDS: sitaGLIPtin PHOSPHATE 50 MG TABLET PO SCH (06:31)
[2018-04-08] MEDS: LEVOTHYROXINE NA 100 MCG TABLET (FP) PO SCH (06:31)
[2018-04-08] MEDS: INSULIN SLIDING SCALE (NOVOLOG) 1 VIAL SQ SCH ×4 (06:32→21:51)
[2018-04-08] MEDS ORDERED: PT OWN MED DRAWER 7, Y5N ONE (09:44)
[2018-04-08] MEDS: NYSTATIN POWDER 100,000 UNITS/GM - 15 GM TOPICAL POWDER TP SCH (10:09)
[2018-04-08] MEDS: ISOSORBIDE MONONITRATE 30 MG TAB.SR.24H (FP) PO SCH (10:12)
[2018-04-08] MEDS: LORATADINE 10 MG TABLET PO SCH (10:12)
[2018-04-08] MEDS: APIXABAN 2.5 MG TABLET PO SCH ×2 (10:12→21:39)
[2018-04-08] MEDS: PANTOPRAZOLE 40 MG TABLET (FP) PO SCH ×2 (10:12→21:39)
[2018-04-08] MEDS: FLUTICASONE PROP 0.05% 16 GM NASAL SPRAY NS SCH (10:12)
[2018-04-08] MEDS: METOPROLOL TARTRATE 50 MG TABLET (FP) PO SCH ×2 (10:12→21:39)
[2018-04-08 11:37] LABS: CO2 31 mmol/L (21-32); CREATININE 0.8 mg/dL (0.55-1.3)
[2018-04-08 11:38] LABS: ALBUMIN 2.4 g/dl (3.4-5.0)
[2018-04-08] MEDS: POLYETHYLENE GLYCOL 3350 119 GM BTL PO SCH (12:09)
[2018-04-08 12:32] LABS: ALK PHOS 50 U/L (45-117); ANION GAP 8 MMOL/L (8-16); BILIRUBIN,TOTAL 1.1 mg/dL (0.2-1); BLOOD UREA NITROGEN 8 mg/dL (7-18); CHLORIDE 102 mmol/L (98-107); GLUCOSE,RANDOM 212 mg/dL (74-106); POTASSIUM 3.5 mmol/L (3.5-5.1); SGOT/AST 20 U/L (15-37); SGPT/ALT 14 U/L (13-61); SODIUM 140 mmol/L (136-145); TOT PROT 5.2 g/dl (6.4-8.2)
--- NOTE | 2018-04-08 13:34 | PN ---
Progress Note, Physician Chief Complaint: CT CHEST REVIEWED NO ACUTE CHANGES PATIENT AWAKE ALERT FEELING BETTER - Current Medication List Current Medications: Active Medications Acetaminophen (Tylenol -) 650 mg PO Q6H PRN PRN Reason: FEVER Last Admin: 04/07/18 19:36 Dose: 650 mg Albuterol/Ipratropium (Duoneb -) 1 amp NEB Q6H PRN PRN Reason: SHORTNESS OF BREATH Apixaban (Eliquis -) 2.5 mg PO BID [facility] Last Admin: 04/08/18 10:12 Dose: 2.5 mg Atorvastatin Calcium (Lipitor -) 20 mg PO HS [facility] Last Admin: 04/07/18 22:46 Dose: 20 mg Fluticasone Propionate (Flonase -) 2 spray NS DAILY [facility] Last Admin: 04/08/18 10:12 Dose: 2 spray Insulin Aspart (Novolog Vial Sliding Scale -) 1 vial SQ ACHS [facility]; Protocol Last Admin: 04/08/18 12:07 Dose: 4 units Isosorbide Mononitrate (Imdur -) 30 mg PO DAILY [facility] Last Admin: 04/08/18 10:12 Dose: 30 mg Levothyroxine Sodium (Synthroid -) 100 mcg PO DAILY@0700 [facility] Last Admin: 04/08/18 06:31 Dose: 100 mcg Loratadine (Claritin -) 10 mg PO DAILY [facility] Last Admin: 04/08/18 10:12 Dose: 10 mg Metoprolol Tartrate (Lopressor -) 50 mg PO BID [facility] Last Admin: 04/08/18 10:12 Dose: 50 mg Nystatin (Nystop Powder -) 1 applic TP DAILY [facility] Last Admin: 04/08/18 10:09 Dose: 1 applic Ondansetron HCl (Zofran Odt -) 4 mg SL Q6H PRN PRN Reason: NAUSEA AND/OR VOMITING Last Admin: 04/07/18 20:08 Dose: 4 mg Pantoprazole Sodium (Protonix -) 40 mg PO BID [facility] Last Admin: 04/08/18 10:12 Dose: 40 mg Polyethylene Glycol (Miralax (For Daily Use) -) 17 gm PO DAILY [facility] Last Admin: 04/08/18 12:09 Dose: 17 grams Senna (Senna -) 1 tab PO HS [facility] Last Admin: 04/07/18 22:46 Dose: 1 tab Sitagliptin Phosphate (Januvia -) 50 mg PO DAILY@0700 [facility] Last Admin: 04/08/18 06:31 Dose: 50 mg Sodium Chloride ([place] Nasal [place] -) 2 spray NS Q8H PRN PRN Reason: NASAL CONGESTION Sulfacetamide Sodium (Bleph-10 Ophthalmic Solution -) 1 drop OD Q3H [facility] Last Admin: 04/08/18 10:13 Dose: 1 drop - Objective Vital Signs: Vital Signs Temperature 98.7 F 04/08/18 08:00 Pulse Rate 60 04/08/18 08:00 Respiratory Rate 18 04/08/18 09:00 Blood Pressure 149/86 04/08/18 08:00 O2 Sat by Pulse Oximetry (%) 98 04/08/18 09:00 Constitutional: Yes: Mild Distress Eyes: Yes: Other HENT: Yes: WNL Neck: Yes: WNL Cardiovascular: Yes: Regular Rate and Rhythm Respiratory: Yes: Diminished, On Nasal O2 Gastrointestinal: Yes: Abdomen, Obese Genitourinary: Yes: Incontinence Musculoskeletal: Yes: Muscle Weakness Edema: Yes Edema: LLE: 1+, RLE: 1+ Peripheral Pulses WNL: Yes Integumentary: Yes: Other Wound/Incision: Yes: Dressing Dry and Intact Neurological: Yes: Pre-Existing Deficit, Unsteady Gait, Weakness ...Motor Strength: LLE, RLE Psychiatric: Yes: Other Labs: CBC, BMP 04/08/18 06:20 INR, PTT INR 1.04 (0.83-1.09) 04/07/18 13:00 Problem List - Problems (1) CHF exacerbation Code(s): I50.9 - HEART FAILURE, UNSPECIFIED (2) Abdominal pain Code(s): R10.9 - UNSPECIFIED ABDOMINAL PAIN Qualifiers: Abdominal location: generalized Qualified Code(s): R10.84 - Generalized abdominal pain (3) Acute metabolic encephalopathy Code(s): G93.41 - METABOLIC ENCEPHALOPATHY (4) Acute renal failure Code(s): N17.9 - ACUTE KIDNEY FAILURE, UNSPECIFIED Qualifiers: Acute renal failure type: unspecified Qualified Code(s): N17.9 - Acute kidney failure, unspecified (5) Afib Code(s): I48.91 - UNSPECIFIED ATRIAL FIBRILLATION (6) Diabetes Code(s): E11.9 - TYPE 2 DIABETES MELLITUS WITHOUT COMPLICATIONS Qualifiers: Diabetes mellitus type: type 2 Diabetes mellitus complication status: with neurologic complications (7) Lung nodule Code(s): R91.1 - SOLITARY PULMONARY NODULE (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 CARDIOPULMONARY PHYSICAL THERAPIST CONSULT. DC PLANNING
[2018-04-08] MEDS ORDERED: FUROSEMIDE 40 MG/4 ML INJECTABLE VIAL IVPUSH ONE (13:35)
[2018-04-08 14:11] LABS: HEMATOCRIT 42.1 % (32.4-45.2); HEMOGLOBIN 13.4 GM/dL (10.7-15.3); MCH 29.9 pg (25.7-33.7); MCHC 31.7 g/dl (32.0-36.0); MEAN CELL VOLUME 94.3 fl (80-96); MEAN PLT VOLUME 9.6 fl (7.5-11.1); PLATELET COUNT 174 K/MM3 (134-434); RBC 4.46 M/mm3 (3.60-5.2); RDW 15.7 % (11.6-15.6); WHITE BLOOD COUNT 6.2 K/mm3 (4.0-10.0)
--- NOTE | 2018-04-08 14:16 | CON.PULM ---
Consult Consult Specialty:: PULM/CCM Referred by:: MOMO Reason for Consultation:: SOB - History of Present Illness Chief Complaint: SOB / vomiting History of Present Illness: 87 F, HTN, DM, gastroparesis, diverticulosis, CAD, and hypothyroidism. Admitted via the ER due to multiple episodes of non-bilious and non-bloody vomiting. The vomiting was associated with some chest pain and shortness of breath. No apparent fever or chills. No travel history or sick contacts. No hemoptysis. 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 2011 dobut MIBI: no STs ; moderate reversible defect anterior and lateral faith confounded by large breast shadow; nl EF -> pt didn't follow as outpt as planned (was on DATP for a little while). Echo 09/13: nl LVEF, nl RV, nl valve fxn), HTN, Hyperlipdemia Pulmonary: Yes: COPD Gastrointestinal: Yes: Constipation Endocrine: Yes: Diabetes Mellitus (insulin-dependent for years -> uncontrolled) , Hypothyroidism Dermatology: Yes: Cellulitis (in past, with chronic and intermittent edema) - Alcohol/Substance Use Hx Alcohol Use: No History of Substance Use: reports: None - Smoking History Smoking history: Never smoked Have you smoked in the past 12 months: No Aproximately how many cigarettes per day: 0 If you are a former smoker, when did you quit?: 1984 - Social History Usual Living Arrangement: With Spouse (who is on HD) ADL: Family Assistance History of Recent Travel: No Home Medications - Allergies Allergies/Adverse Reactions: Allergies Allergy/AdvReac Type Severity Reaction Status Date / Time vancomycin AdvReac Itching Verified 04/07/18 09:52 - Home Medications Home Medications: Ambulatory Orders Atorvastatin Ca [Lipitor] 20 mg PO HS tablet 02/27/18 Polyethylene Glycol 3350 [Miralax 119 gm Btl -] 17 gm PO DAILY bottle 02/27/18 Docusate Sodium [Colace -] 100 mg PO BID capsule 03/25/18 Lidocaine Patch Removal [Lidoderm Patch Removal] 1 each MC DAILY@2200 #30 each 03/25/18 Nystatin Powder [Nystop Powder -] 1 applic TP DAILY #1 bottle 03/25/18 Ondansetron [Zofran Odt -] 4 mg SL Q8H #30 tab.rapdis 03/25/18 Acetaminophen [Tylenol .Regular Strength -] 650 mg PO Q6H PRN tablet 04/03/18 Apixaban [Eliquis -] 2.5 mg PO BID tablet 04/03/18 Isosorbide Mononitrate [Imdur -] 30 mg PO DAILY tab.sr.24h 04/03/18 Levothyroxine [Synthroid -] 100 mcg PO DAILY@0700 #30 tablet 04/03/18 Metoclopramide HCl [Reglan -] 5 mg PO TIDAC tablet 04/03/18 Metoprolol Tartrate [Lopressor -] 50 mg PO BID tablet 04/03/18 Pantoprazole Sodium [Protonix -] 40 mg PO BID #60 tablet.ec 04/03/18 Sennosides [Senna -] 2 tab PO HS tablet 04/03/18 Sitagliptin Phosphate [Januvia -] 50 mg PO DAILY@0700 tablet 04/03/18 Sulfacetamide Sodium 10% [Bleph-10 Ophthalmic Solution -] 1 drop OS Q3H drops 04/03/18 Family Disease History - Family Disease History Family Disease History: Diabetes: Daughter Review of Systems - Review of Systems Constitutional: reports: Malaise. denies: Chills, Fever, Night Sweats Eyes: reports: No Symptoms HENT: reports: No Symptoms Neck: reports: No Symptoms Cardiovascular: reports: Chest Pain, Shortness of Breath. denies: Palpitations Respiratory: reports: SOB. denies: Cough, Hemoptysis, Orthopnea, PND, Snoring, SOB on Exertion, Wheezing Gastrointestinal: reports: Bloating, Nausea, Vomiting. denies: Melena, Rectal Bleeding, Vomiting Blood Genitourinary: reports: No Symptoms Breasts: reports: No Symptoms Reported Musculoskeletal: reports: No Symptoms Integumentary: reports: No Symptoms Neurological: reports: No Symptoms Endocrine: reports: No Symptoms Hematology/Lymphatic: reports: No Symptoms Psychiatric: reports: No Symptoms Physical Exam Vital Sings: Vital Signs Temperature 98.7 F 04/08/18 13:51 Pulse Rate 62 04/08/18 13:51 Respiratory Rate 16 04/08/18 13:51 Blood Pressure 96/59 L 04/08/18 13:51 O2 Sat by Pulse Oximetry (%) 98 04/08/18 09:00 Constitutional: Yes: No Distress, Calm, Obese Eyes: Yes: Conjunctiva Clear, EOM Intact HENT: Yes: Atraumatic, Normocephalic Neck: Yes: Supple, Trachea Midline Cardiovascular: Yes: Regular Rate and Rhythm Respiratory: Yes: Diminished, Rhonchi. No: Accessory Muscle Use, Cough, Rales, SOB, SOB on Exertion, Stridor, Tachypnea, Wheezes ...Inspection: Yes: WNL ...Clubbing: No Gastrointestinal: Yes: Normal Bowel Sounds, Soft, Abdomen, Obese Renal/: Yes: WNL Musculoskeletal: Yes: WNL Extremities: Yes: WNL Edema: No Peripheral Pulses WNL: Yes Integumentary: Yes: WNL Neurological: Yes: WNL, Alert, Oriented ...Motor Strength: WNL Psychiatric: Yes: Alert Labs: CBC, BMP 04/08/18 06:20 Imaging - Results Chest X-ray: Report Reviewed, Image Reviewed Cat Scan: Report Reviewed, Image Reviewed Problem List - Problems (1) Abdominal pain Code(s): R10.9 - UNSPECIFIED ABDOMINAL PAIN Qualifiers: Abdominal location: generalized Qualified Code(s): R10.84 - Generalized abdominal pain (2) Afib Code(s): I48.91 - UNSPECIFIED ATRIAL FIBRILLATION (3) CAD (coronary artery disease) Code(s): I25.10 - ATHSCL HEART DISEASE OF [place] CORONARY ARTERY W/O ANG PCTRS (4) COPD (chronic obstructive pulmonary disease) Code(s): J44.9 - CHRONIC OBSTRUCTIVE PULMONARY DISEASE, UNSPECIFIED (5) Chest pain, atypical Code(s): R07.89 - OTHER CHEST PAIN (6) Controlled diabetes mellitus with diabetic neuropathy Code(s): E11.40 - TYPE 2 DIABETES MELLITUS WITH DIABETIC NEUROPATHY, UNSP (7) Diabetes Code(s): E11.9 - TYPE 2 DIABETES MELLITUS WITHOUT COMPLICATIONS Qualifiers: Diabetes mellitus type: type 2 Diabetes mellitus complication status: with neurologic complications (8) Gastroparesis Code(s): K31.84 - GASTROPARESIS (9) Hypothyroid Code(s): E03.9 - HYPOTHYROIDISM, UNSPECIFIED (10) Lung nodule Code(s): R91.1 - SOLITARY PULMONARY NODULE Assessment/Plan CT scan from 2007 reviewed. Seems like that the nodule was present at that time and measured about 12 mm. Will review images more closely with radiology. Work up of Nausea/vomiting per primary O2 as needed No ABX indicated No smoking No need for systemic steroids at this time Will follow Thank you. Dr Vaughan
[2018-04-08] MEDS: ACETAMINOPHEN 325 MG TABLET (FP) PO PRN (16:20)
--- NOTE | 2018-04-08 16:51 | EKG ---
Test Reason : Blood Pressure : / mmHG Vent. Rate : 091 BPM Atrial Rate : 091 BPM P-R Int : 200 ms QRS Dur : 094 ms QT Int : 422 ms P-R-T Axes : 019 -14 133 degrees QTc Int : 519 ms NORMAL SINUS RHYTHM LEFT VENTRICULAR HYPERTROPHY WITH REPOLARIZATION ABNORMALITY CANNOT RULE OUT SEPTAL INFARCT (CITED ON OR BEFORE 18-MAR-2018) PROLONGED QT ABNORMAL ECG WHEN COMPARED WITH ECG OF 07-APR-2018 09:51, SINUS RHYTHM HAS REPLACED ATRIAL FIBRILLATION NONSPECIFIC T WAVE ABNORMALITY HAS REPLACED INVERTED T WAVES IN LATERAL LEADS Confirmed by MD WADE, KAYLEIGH ([id number]) on 04/08/2018 4:51:12 PM Referred By: Confirmed By:KAYLEIGH OLVERA MD
--- NOTE | 2018-04-08 16:55 | EKG ---
Test Reason : Blood Pressure : / mmHG Vent. Rate : 115 BPM Atrial Rate : 108 BPM P-R Int : 000 ms QRS Dur : 086 ms QT Int : 404 ms P-R-T Axes : 000 -21 152 degrees QTc Int : 558 ms POOR DATA QUALITY, INTERPRETATION MAY BE ADVERSELY AFFECTED ATRIAL FIBRILLATION WITH RAPID VENTRICULAR RESPONSE LEFT VENTRICULAR HYPERTROPHY WITH REPOLARIZATION ABNORMALITY CANNOT RULE OUT SEPTAL INFARCT (CITED ON OR BEFORE 18-MAR-2018) PROLONGED QT ABNORMAL ECG Confirmed by MD WADE, KAYLEIGH ([id number]) on 04/08/2018 4:55:29 PM Referred By: Confirmed By:KAYLEIGH OLVERA MD
[2018-04-08] MEDS: SENNOSIDES 8.6MG TABLET (FP) PO SCH (21:39)
[2018-04-08] MEDS: ATORVASTATIN CA 20 MG TABLET (FP) PO SCH (21:39)
[2018-04-09] MEDS: SULFACETAMIDE SODIUM 10% OPHTHALMIC DROPS 15 ML BOTTLE OD SCH ×8 (01:45→21:10)
[2018-04-09] MEDS: sitaGLIPtin PHOSPHATE 50 MG TABLET PO SCH (06:35)
[2018-04-09] MEDS: LEVOTHYROXINE NA 100 MCG TABLET (FP) PO SCH (06:35)
[2018-04-09] MEDS: INSULIN SLIDING SCALE (NOVOLOG) 1 VIAL SQ SCH ×4 (06:36→21:20)
[2018-04-09] MEDS: FLUTICASONE PROP 0.05% 16 GM NASAL SPRAY NS SCH (09:57)
[2018-04-09] MEDS: ISOSORBIDE MONONITRATE 30 MG TAB.SR.24H (FP) PO SCH (09:58)
[2018-04-09] MEDS: APIXABAN 2.5 MG TABLET PO SCH ×2 (09:59→21:08)
[2018-04-09] MEDS: METOPROLOL TARTRATE 50 MG TABLET (FP) PO SCH ×2 (09:59→21:08)
[2018-04-09] MEDS: LORATADINE 10 MG TABLET PO SCH (09:59)
[2018-04-09] MEDS: PANTOPRAZOLE 40 MG TABLET (FP) PO SCH ×2 (09:59→21:08)
[2018-04-09] MEDS: NYSTATIN POWDER 100,000 UNITS/GM - 15 GM TOPICAL POWDER TP SCH (10:05)
[2018-04-09] MEDS: POLYETHYLENE GLYCOL 3350 119 GM BTL PO SCH (10:05)
--- NOTE | 2018-04-09 11:13 | PN ---
Progress Note, Physician Chief Complaint: Nausea, Vomiting CHest Pain SOB Chest CT scan-1.5cm RLL pleural based nodule History of Present Illness: Previous events and notes reviewed sleeping lying in bed, easily arouseable to stimuli NAD Denies any further episode of nausea/vomiting - Current Medication List Current Medications: Active Medications Acetaminophen (Tylenol -) 650 mg PO Q6H PRN PRN Reason: FEVER Last Admin: 04/08/18 16:20 Dose: 650 mg Albuterol/Ipratropium (Duoneb -) 1 amp NEB Q6H PRN PRN Reason: SHORTNESS OF BREATH Apixaban (Eliquis -) 2.5 mg PO BID [facility] Last Admin: 04/09/18 09:59 Dose: 2.5 mg Atorvastatin Calcium (Lipitor -) 20 mg PO HS [facility] Last Admin: 04/08/18 21:39 Dose: 20 mg Fluticasone Propionate (Flonase -) 2 spray NS DAILY [facility] Last Admin: 04/09/18 09:57 Dose: 2 spray Insulin Aspart (Novolog Vial Sliding Scale -) 1 vial SQ ACHS [facility]; Protocol Last Admin: 04/09/18 06:36 Dose: 2 units Isosorbide Mononitrate (Imdur -) 30 mg PO DAILY [facility] Last Admin: 04/09/18 09:58 Dose: 30 mg Levothyroxine Sodium (Synthroid -) 100 mcg PO DAILY@0700 [facility] Last Admin: 04/09/18 06:35 Dose: 100 mcg Loratadine (Claritin -) 10 mg PO DAILY [facility] Last Admin: 04/09/18 09:59 Dose: 10 mg Metoprolol Tartrate (Lopressor -) 50 mg PO BID [facility] Last Admin: 04/09/18 09:59 Dose: 50 mg Nystatin (Nystop Powder -) 1 applic TP DAILY [facility] Last Admin: 04/09/18 10:05 Dose: 1 applic Ondansetron HCl (Zofran Odt -) 4 mg SL Q6H PRN PRN Reason: NAUSEA AND/OR VOMITING Last Admin: 04/07/18 20:08 Dose: 4 mg Pantoprazole Sodium (Protonix -) 40 mg PO BID [facility] Last Admin: 04/09/18 09:59 Dose: 40 mg Polyethylene Glycol (Miralax (For Daily Use) -) 17 gm PO DAILY [facility] Last Admin: 04/09/18 10:05 Dose: 17 grams Senna (Senna -) 1 tab PO [facility] Last Admin: 04/08/18 21:39 Dose: 1 tab Sitagliptin Phosphate (Januvia -) 50 mg PO DAILY@0700 [facility] Last Admin: 04/09/18 06:35 Dose: 50 mg Sodium Chloride ([place]al [place] -) 2 spray NS Q8H PRN PRN Reason: NASAL CONGESTION Last Admin: 04/09/18 09:57 Dose: 2 spray Sulfacetamide Sodium (Bleph-10 Ophthalmic Solution -) 1 drop OD Q3H [facility] Last Admin: 04/09/18 09:58 Dose: 1 drop - Objective Vital Signs: Vital Signs Temperature 98.2 F 04/09/18 06:59 Pulse Rate 64 04/09/18 06:59 Respiratory Rate 20 04/09/18 06:59 Blood Pressure 149/72 04/09/18 06:59 O2 Sat by Pulse Oximetry (%) 98 04/09/18 09:00 Constitutional: Yes: No Distress, Calm, Obese Eyes: Yes: Conjunctiva Clear Neck: Yes: Supple Cardiovascular: Yes: Regular Rate and Rhythm Respiratory: Yes: Diminished Gastrointestinal: Yes: Normal Bowel Sounds, Soft, Abdomen, Obese Genitourinary: Yes: Incontinence Musculoskeletal: Yes: Muscle Weakness Extremities: Yes: WNL Edema: No Integumentary: Yes: WNL Neurological: Yes: Alert, Pre-Existing Deficit Psychiatric: Yes: Alert Labs: CBC, BMP 04/08/18 06:20 04/08/18 06:20 INR, PTT INR 1.04 (0.83-1.09) 04/07/18 13:00 <Wen Pop - Last Filed: 04/09/18 11:08> - Current Medication List Current Medications: Active Medications Acetaminophen (Tylenol -) 650 mg PO Q6H PRN PRN Reason: FEVER Last Admin: 04/08/18 16:20 Dose: 650 mg Albuterol/Ipratropium (Duoneb -) 1 amp NEB Q6H PRN PRN Reason: SHORTNESS OF BREATH Apixaban (Eliquis -) 2.5 mg PO BID [facility] Last Admin: 04/09/18 09:59 Dose: 2.5 mg Atorvastatin Calcium (Lipitor -) 20 mg PO [facility] Last Admin: 04/08/18 21:39 Dose: 20 mg Fluticasone Propionate (Flonase -) 2 spray NS DAILY [facility] Last Admin: 04/09/18 09:57 Dose: 2 spray Insulin Aspart (Novolog Vial Sliding Scale -) 1 vial SQ ACHS [facility]; Protocol Last Admin: 04/09/18 12:19 Dose: 2 units Isosorbide Mononitrate (Imdur -) 30 mg PO DAILY [facility] Last Admin: 04/09/18 09:58 Dose: 30 mg Levothyroxine Sodium (Synthroid -) 100 mcg PO DAILY@0700 [facility] Last Admin: 04/09/18 06:35 Dose: 100 mcg Loratadine (Claritin -) 10 mg PO DAILY [facility] Last Admin: 04/09/18 09:59 Dose: 10 mg Metoprolol Tartrate (Lopressor -) 50 mg PO BID [facility] Last Admin: 04/09/18 09:59 Dose: 50 mg Nystatin (Nystop Powder -) 1 applic TP DAILY [facility] Last Admin: 04/09/18 10:05 Dose: 1 applic Ondansetron HCl (Zofran Odt -) 4 mg SL Q6H PRN PRN Reason: NAUSEA AND/OR VOMITING Last Admin: 04/07/18 20:08 Dose: 4 mg Pantoprazole Sodium (Protonix -) 40 mg PO BID [facility] Last Admin: 04/09/18 09:59 Dose: 40 mg Polyethylene Glycol (Miralax (For Daily Use) -) 17 gm PO DAILY [facility] Last Admin: 04/09/18 10:05 Dose: 17 grams Senna (Senna -) 1 tab PO HS [facility] Last Admin: 04/08/18 21:39 Dose: 1 tab Sitagliptin Phosphate (Januvia -) 50 mg PO DAILY@0700 [facility] Last Admin: 04/09/18 06:35 Dose: 50 mg Sodium Chloride ([place] Nasal [place] -) 2 spray NS Q8H PRN PRN Reason: NASAL CONGESTION Last Admin: 04/09/18 09:57 Dose: 2 spray Sulfacetamide Sodium (Bleph-10 Ophthalmic Solution -) 1 drop OD Q3H [facility] Last Admin: 04/09/18 12:25 Dose: 1 drop - Objective Vital Signs: Vital Signs Temperature 98.2 F 04/09/18 06:59 Pulse Rate 64 04/09/18 06:59 Respiratory Rate 20 04/09/18 06:59 Blood Pressure 149/72 04/09/18 06:59 O2 Sat by Pulse Oximetry (%) 98 04/09/18 09:00 Labs: CBC, BMP 04/08/18 06:20 04/08/18 06:20 INR, PTT INR 1.04 (0.83-1.09) 04/07/18 13:00 <Wei Lam - Last Filed: 04/09/18 14:48> Problem List - Problems (1) CHF exacerbation Code(s): I50.9 - HEART FAILURE, UNSPECIFIED (2) Afib Code(s): I48.91 - UNSPECIFIED ATRIAL FIBRILLATION (3) COPD (chronic obstructive pulmonary disease) Code(s): J44.9 - CHRONIC OBSTRUCTIVE PULMONARY DISEASE, UNSPECIFIED (4) Abdominal pain Code(s): R10.9 - UNSPECIFIED ABDOMINAL PAIN Qualifiers: Abdominal location: generalized Qualified Code(s): R10.84 - Generalized abdominal pain (5) Acute metabolic encephalopathy Code(s): G93.41 - METABOLIC ENCEPHALOPATHY (6) Acute renal failure Code(s): N17.9 - ACUTE KIDNEY FAILURE, UNSPECIFIED Qualifiers: Acute renal failure type: unspecified Qualified Code(s): N17.9 - Acute kidney failure, unspecified (7) Lung nodule Code(s): R91.1 - SOLITARY PULMONARY NODULE (8) Nausea & vomiting Code(s): R11.2 - NAUSEA WITH VOMITING, UNSPECIFIED Qualifiers: Vomiting type: unspecified Vomiting Intractability: unspecified Qualified Code(s): R11.2 - Nausea with vomiting, unspecified (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 Code(s): E11.49 - TYPE 2 DIABETES [facility] DIABETIC NEUROLOGICAL COMPLICATION <Wen Pop - Last Filed: 04/09/18 11:08> - Problems (1) CHF exacerbation Code(s): I50.9 - HEART FAILURE, UNSPECIFIED (2) Abdominal pain Code(s): R10.9 - UNSPECIFIED ABDOMINAL PAIN Qualifiers: Abdominal location: generalized Qualified Code(s): R10.84 - Generalized abdominal pain (3) Acute metabolic encephalopathy Code(s): G93.41 - METABOLIC ENCEPHALOPATHY (4) Acute renal failure Code(s): N17.9 - ACUTE KIDNEY FAILURE, UNSPECIFIED Qualifiers: Acute renal failure type: unspecified Qualified Code(s): N17.9 - Acute kidney failure, unspecified (5) Afib Code(s): I48.91 - UNSPECIFIED ATRIAL FIBRILLATION (6) Diabetes Code(s): E11.9 - TYPE 2 DIABETES MELLITUS WITHOUT COMPLICATIONS Qualifiers: Diabetes mellitus type: type 2 Diabetes mellitus complication status: with neurologic complications (7) Lung nodule Code(s): R91.1 - SOLITARY PULMONARY NODULE (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 <Wei Lam - Last Filed: 04/09/18 14:48> Assessment/Plan -pulmonary recommendation appreciated -cont with Metoprolol 50mg BID -cont tele monitoring -BGM, ISS, Sitagliptan -Cont with pantoprazole and zofran PRN -on AC,SCD, dvt ppx -low Na diet -PT -SW consult pending -O2 via NC PRN, nebs PRN, keep SpO2 >90% <Wen Pop - Last Filed: 04/09/18 11:08> PATIENT SEEN AND EXAMINED AND I AGREE WITH THE ABOVE NOTE <Wei Lam - Last Filed: 04/09/18 14:48>
[2018-04-09] MEDS: ACETAMINOPHEN 325 MG TABLET (FP) PO PRN ×2 (15:09→22:25)
[2018-04-09] MEDS ORDERED: PT OWN MED DRAWER 7, Y5N ONE ×2 (20:35→20:43)
[2018-04-09] MEDS ORDERED: INSULIN (NOVOLOG) ASPART 100 UNITS/ML 10ML VIAL ONE (20:35)
[2018-04-09] MEDS: SENNOSIDES 8.6MG TABLET (FP) PO SCH (21:08)
[2018-04-09] MEDS: ATORVASTATIN CA 20 MG TABLET (FP) PO SCH (21:08)
[2018-04-09] MEDS: ONDANSETRON *ODT* 4 MG TABLET SL PRN (22:26)
[2018-04-10] MEDS: SULFACETAMIDE SODIUM 10% OPHTHALMIC DROPS 15 ML BOTTLE OD SCH ×7 (01:15→22:01)
[2018-04-10] MEDS: LEVOTHYROXINE NA 100 MCG TABLET (FP) PO SCH (06:00)
[2018-04-10] MEDS: sitaGLIPtin PHOSPHATE 50 MG TABLET PO SCH (06:00)
[2018-04-10] MEDS: INSULIN SLIDING SCALE (NOVOLOG) 1 VIAL SQ SCH ×4 (06:01→22:14)
[2018-04-10] MEDS: ACETAMINOPHEN 325 MG TABLET (FP) PO PRN ×2 (09:14→22:13)
[2018-04-10] MEDS: METOPROLOL TARTRATE 50 MG TABLET (FP) PO SCH ×2 (09:15→21:59)
[2018-04-10] MEDS: APIXABAN 2.5 MG TABLET PO SCH ×2 (09:15→21:59)
[2018-04-10] MEDS: LORATADINE 10 MG TABLET PO SCH (09:15)
[2018-04-10] MEDS: PANTOPRAZOLE 40 MG TABLET (FP) PO SCH ×2 (09:16→21:59)
[2018-04-10] MEDS: ISOSORBIDE MONONITRATE 30 MG TAB.SR.24H (FP) PO SCH (09:16)
[2018-04-10] MEDS: POLYETHYLENE GLYCOL 3350 119 GM BTL PO SCH (09:18)
[2018-04-10] MEDS: FLUTICASONE PROP 0.05% 16 GM NASAL SPRAY NS SCH (09:19)
--- NOTE | 2018-04-10 10:18 | PN ---
Progress Note, Physician Chief Complaint: Nausea, Vomiting CHest Pain SOB Chest CT scan-1.5cm RLL pleural based nodule History of Present Illness: Previous events and notes reviewed awake and alert NAD complain of epigastric pain and vomiting x 3 episodes PT at bedside and pt refuse session, explained to benefits of PT in regards to health and pt continue to refuse despite encouragement, pt states that she walks fine at home - Current Medication List Current Medications: Active Medications Acetaminophen (Tylenol -) 650 mg PO Q6H PRN PRN Reason: FEVER Last Admin: 04/10/18 09:14 Dose: 650 mg Albuterol/Ipratropium (Duoneb -) 1 amp NEB Q6H PRN PRN Reason: SHORTNESS OF BREATH Apixaban (Eliquis -) 2.5 mg PO BID [facility] Last Admin: 04/10/18 09:15 Dose: 2.5 mg Atorvastatin Calcium (Lipitor -) 20 mg PO HS [facility] Last Admin: 04/09/18 21:08 Dose: 20 mg Fluticasone Propionate (Flonase -) 2 spray NS DAILY [facility] Last Admin: 04/10/18 09:19 Dose: 2 spray Insulin Aspart (Novolog Vial Sliding Scale -) 1 vial SQ ACHS [facility]; Protocol Last Admin: 04/10/18 06:01 Dose: Not Given Isosorbide Mononitrate (Imdur -) 30 mg PO DAILY [facility] Last Admin: 04/10/18 09:16 Dose: 30 mg Levothyroxine Sodium (Synthroid -) 100 mcg PO DAILY@0700 [facility] Last Admin: 04/10/18 06:00 Dose: 100 mcg Loratadine (Claritin -) 10 mg PO DAILY [facility] Last Admin: 04/10/18 09:15 Dose: 10 mg Metoprolol Tartrate (Lopressor -) 50 mg PO BID [facility] Last Admin: 04/10/18 09:15 Dose: 50 mg Nystatin (Nystop Powder -) 1 applic TP DAILY [facility] Last Admin: 04/09/18 10:05 Dose: 1 applic Ondansetron HCl (Zofran Odt -) 4 mg SL Q6H PRN PRN Reason: NAUSEA AND/OR VOMITING Last Admin: 04/09/18 22:26 Dose: 4 mg Pantoprazole Sodium (Protonix -) 40 mg PO BID [facility] Last Admin: 04/10/18 09:16 Dose: 40 mg Polyethylene Glycol (Miralax (For Daily Use) -) 17 gm PO DAILY [facility] Last Admin: 04/10/18 09:18 Dose: 17 grams Senna (Senna -) 1 tab PO HS [facility] Last Admin: 04/09/18 21:08 Dose: 1 tab Sitagliptin Phosphate (Januvia -) 50 mg PO DAILY@0700 [facility] Last Admin: 04/10/18 06:00 Dose: 50 mg Sodium Chloride ([place] Nasal [place] -) 2 spray NS Q8H PRN PRN Reason: NASAL CONGESTION Last Admin: 04/09/18 09:57 Dose: 2 spray Sulfacetamide Sodium (Bleph-10 Ophthalmic Solution -) 1 drop OD Q3H [facility] Last Admin: 04/10/18 09:15 Dose: 1 drop - Objective Vital Signs: Vital Signs Temperature 98.1 F 04/10/18 08:07 Pulse Rate 61 04/10/18 08:07 Respiratory Rate 18 04/10/18 08:07 Blood Pressure 154/68 04/10/18 08:07 O2 Sat by Pulse Oximetry (%) 96 04/10/18 08:47 Constitutional: Yes: No Distress, Obese Eyes: Yes: Conjunctiva Clear Neck: Yes: Supple Cardiovascular: Yes: Regular Rate and Rhythm Respiratory: Yes: Regular, Diminished Gastrointestinal: Yes: Normal Bowel Sounds, Soft, Abdomen, Obese Genitourinary: Yes: Incontinence, Other (rash noted to B/L groin) Musculoskeletal: Yes: Muscle Weakness Extremities: Yes: WNL Edema: No Integumentary: Yes: WNL Neurological: Yes: Alert, Pre-Existing Deficit Psychiatric: Yes: Alert Labs: CBC, BMP 04/08/18 06:20 04/08/18 06:20 INR, PTT INR 1.04 (0.83-1.09) 04/07/18 13:00 <Wen Pop - Last Filed: 04/10/18 10:24> - Current Medication List Current Medications: Active Medications Acetaminophen (Tylenol -) 650 mg PO Q6H PRN PRN Reason: FEVER Last Admin: 04/10/18 22:13 Dose: 650 mg Albuterol/Ipratropium (Duoneb -) 1 amp NEB Q6H PRN PRN Reason: SHORTNESS OF BREATH Apixaban (Eliquis -) 2.5 mg PO BID [facility] Last Admin: 04/10/18 21:59 Dose: 2.5 mg Atorvastatin Calcium (Lipitor -) 20 mg PO HS [facility] Last Admin: 04/10/18 21:59 Dose: 20 mg Fluticasone Propionate (Flonase -) 2 spray NS DAILY [facility] Last Admin: 04/10/18 09:19 Dose: 2 spray Insulin Aspart (Novolog Vial Sliding Scale -) 1 vial SQ ACHS [facility]; Protocol Last Admin: 04/11/18 06:50 Dose: 2 units Isosorbide Mononitrate (Imdur -) 30 mg PO DAILY [facility] Last Admin: 04/10/18 09:16 Dose: 30 mg Levothyroxine Sodium (Synthroid -) 100 mcg PO DAILY@0700 [facility] Last Admin: 04/11/18 06:51 Dose: 100 mcg Lidocaine (Lidoderm Patch -) 1 patch TP [facility] Last Admin: 04/10/18 23:28 Dose: 1 patch Loratadine (Claritin -) 10 mg PO DAILY [facility] Last Admin: 04/10/18 09:15 Dose: 10 mg Metoprolol Tartrate (Lopressor -) 50 mg PO BID [facility] Last Admin: 04/10/18 21:59 Dose: 50 mg Miscellaneous (Lidoderm Patch Removal) 1 each MC DAILY@2200 [facility] Nystatin (Nystop Powder -) 1 applic TP DAILY [facility] Last Admin: 04/10/18 11:00 Dose: 1 applic Ondansetron HCl (Zofran Odt -) 4 mg SL Q6H PRN PRN Reason: NAUSEA AND/OR VOMITING Last Admin: 04/10/18 10:20 Dose: 4 mg Pantoprazole Sodium (Protonix -) 40 mg PO BID [facility] Last Admin: 04/10/18 21:59 Dose: 40 mg Polyethylene Glycol (Miralax (For Daily Use) -) 17 gm PO DAILY [facility] Last Admin: 04/10/18 09:18 Dose: 17 grams Senna (Senna -) 1 tab PO [facility] Last Admin: 04/10/18 21:59 Dose: 1 tab Sodium Chloride ([place] Nasal [place] -) 2 spray NS Q8H PRN PRN Reason: NASAL CONGESTION Last Admin: 04/09/18 09:57 Dose: 2 spray Sulfacetamide Sodium (Bleph-10 Ophthalmic Solution -) 1 drop OD Q3H [facility] Last Admin: 04/11/18 06:51 Dose: 1 drop - Objective Vital Signs: Vital Signs Temperature 98 F 04/11/18 01:23 Pulse Rate 61 04/11/18 01:23 Respiratory Rate 20 04/11/18 01:23 Blood Pressure 148/77 04/11/18 01:23 O2 Sat by Pulse Oximetry (%) 94 L 04/10/18 20:16 Labs: CBC, BMP 04/08/18 06:20 04/08/18 06:20 INR, PTT INR 1.04 (0.83-1.09) 04/07/18 13:00 <Wei Lam - Last Filed: 04/11/18 07:01> Problem List - Problems (1) CHF exacerbation Code(s): I50.9 - HEART FAILURE, UNSPECIFIED (2) Afib Code(s): I48.91 - UNSPECIFIED ATRIAL FIBRILLATION (3) COPD (chronic obstructive pulmonary disease) Code(s): J44.9 - CHRONIC OBSTRUCTIVE PULMONARY DISEASE, UNSPECIFIED (4) Abdominal pain Code(s): R10.9 - UNSPECIFIED ABDOMINAL PAIN Qualifiers: Abdominal location: generalized Qualified Code(s): R10.84 - Generalized abdominal pain (5) Acute metabolic encephalopathy Code(s): G93.41 - METABOLIC ENCEPHALOPATHY (6) Acute renal failure Code(s): N17.9 - ACUTE KIDNEY FAILURE, UNSPECIFIED Qualifiers: Acute renal failure type: unspecified Qualified Code(s): N17.9 - Acute kidney failure, unspecified (7) Lung nodule Code(s): R91.1 - SOLITARY PULMONARY NODULE (8) Nausea & vomiting Code(s): R11.2 - NAUSEA WITH VOMITING, UNSPECIFIED Qualifiers: Vomiting type: unspecified Vomiting Intractability: unspecified Qualified Code(s): R11.2 - Nausea with vomiting, unspecified (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 Code(s): E11.49 - TYPE 2 DIABETES W OTH DIABETIC NEUROLOGICAL COMPLICATION <Wen Pop - Last Filed: 04/10/18 10:24> - Problems (1) CHF exacerbation Code(s): I50.9 - HEART FAILURE, UNSPECIFIED (2) Abdominal pain Code(s): R10.9 - UNSPECIFIED ABDOMINAL PAIN Qualifiers: Abdominal location: generalized Qualified Code(s): R10.84 - Generalized abdominal pain (3) Acute metabolic encephalopathy Code(s): G93.41 - METABOLIC ENCEPHALOPATHY (4) Acute renal failure Code(s): N17.9 - ACUTE KIDNEY FAILURE, UNSPECIFIED Qualifiers: Acute renal failure type: unspecified Qualified Code(s): N17.9 - Acute kidney failure, unspecified (5) Afib Code(s): I48.91 - UNSPECIFIED ATRIAL FIBRILLATION (6) Diabetes Code(s): E11.9 - TYPE 2 DIABETES MELLITUS WITHOUT COMPLICATIONS Qualifiers: Diabetes mellitus type: type 2 Diabetes mellitus complication status: with neurologic complications (7) Lung nodule Code(s): R91.1 - SOLITARY PULMONARY NODULE (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 <Wei Lam - Last Filed: 04/11/18 07:01> Assessment/Plan -pulmonary recommendation appreciated -cont with Metoprolol 50mg BID -cont tele monitoring -BGM, ISS, Sitagliptan -Cont with pantoprazole and zofran PRN -tylenol for pain management -nystatin powder for B/L groin rash -on AC,SCD, dvt ppx -low Na diet -cont encourage pt to comply with PT sessions -psychiatry consult ordered for competency -O2 via NC PRN, nebs PRN, keep SpO2 >90% <Wen Pop - Last Filed: 04/10/18 10:24> PATIENT SEEN AND EXAMINED AND I AGREE WITH ABOVE NOTE <Wei Lam - Last Filed: 04/11/18 07:01>
[2018-04-10] MEDS: ONDANSETRON *ODT* 4 MG TABLET SL PRN (10:20)
--- NOTE | 2018-04-10 10:57 | CON.CARD ---
Consult Consult Specialty:: Cardiology Referred by:: Carole Reason for Consultation:: atrial fibrillation - History of Present Illness Chief Complaint: vomiting and sob History of Present Illness: She is an 87 year old female with a PMH of HTN, IDDM, gastroparesis, diverticulosis, CAD s/p PCI with BMS to LAD, RCA, OM1 in 2009 and 2011, PAF on Eliquis, COD, GI bleeding, and hypothyroidism. She presents now with nausea and vomiting, which started last night. The patient is well-known to us and was last seen on 03/31/18 for similar symptoms. She had chest pain after her vomiting. She was awaiting an EGD at last admission. Echocardiogram 01/29/18 EF 65% -70% - Past Medical History [employer]: Yes: Dementia, 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 2011 dobut MIBI: no STs ; moderate reversible defect anterior and lateral faith confounded by large breast shadow; nl EF -> pt didn't follow as outpt as planned (was on DATP for a little while). Echo 09/13: nl LVEF, nl RV, nl valve fxn), HTN, Hyperlipdemia Pulmonary: Yes: COPD Gastrointestinal: Yes: Constipation Endocrine: Yes: Diabetes Mellitus (insulin-dependent for years -> uncontrolled) , Hypothyroidism Dermatology: Yes: Cellulitis (in past, with chronic and intermittent edema) - Alcohol/Substance Use Hx Alcohol Use: No History of Substance Use: reports: None - Smoking History Smoking history: Never smoked Have you smoked in the past 12 months: No Aproximately how many cigarettes per day: 0 If you are a former smoker, when did you quit?: 1984 - Social History Usual Living Arrangement: With Spouse (who is on HD) ADL: Family Assistance History of Recent Travel: No Home Medications - Allergies Allergies/Adverse Reactions: Allergies Allergy/AdvReac Type Severity Reaction Status Date / Time vancomycin AdvReac Itching Verified 04/07/18 09:52 - Home Medications Home Medications: Ambulatory Orders Atorvastatin Ca [Lipitor] 20 mg PO HS tablet 02/27/18 Polyethylene Glycol 3350 [Miralax 119 gm Btl -] 17 gm PO DAILY bottle 02/27/18 Docusate Sodium [Colace -] 100 mg PO BID capsule 03/25/18 Lidocaine Patch Removal [Lidoderm Patch Removal] 1 each MC DAILY@2200 #30 each 03/25/18 Nystatin Powder [Nystop Powder -] 1 applic TP DAILY #1 bottle 03/25/18 Ondansetron [Zofran Odt -] 4 mg SL Q8H #30 tab.rapdis 03/25/18 Acetaminophen [Tylenol .Regular Strength -] 650 mg PO Q6H PRN tablet 04/03/18 Apixaban [Eliquis -] 2.5 mg PO BID tablet 04/03/18 Isosorbide Mononitrate [Imdur -] 30 mg PO DAILY tab.sr.24h 04/03/18 Levothyroxine [Synthroid -] 100 mcg PO DAILY@0700 #30 tablet 04/03/18 Metoclopramide HCl [Reglan -] 5 mg PO TIDAC tablet 04/03/18 Metoprolol Tartrate [Lopressor -] 50 mg PO BID tablet 04/03/18 Pantoprazole Sodium [Protonix -] 40 mg PO BID #60 tablet.ec 04/03/18 Sennosides [Senna -] 2 tab PO HS tablet 04/03/18 Sitagliptin Phosphate [Januvia -] 50 mg PO DAILY@0700 tablet 04/03/18 Sulfacetamide Sodium 10% [Bleph-10 Ophthalmic Solution -] 1 drop OS Q3H drops 04/03/18 Family Disease History - Family Disease History Family Disease History: Diabetes: Daughter Vital Signs: Vital Signs Temperature 98.1 F 04/10/18 08:07 Pulse Rate 61 04/10/18 08:07 Respiratory Rate 18 04/10/18 08:07 Blood Pressure 154/68 04/10/18 08:07 O2 Sat by Pulse Oximetry (%) 96 04/10/18 08:47 - Other Data Labs, Other Data: CBC, BMP 04/08/18 06:20 04/08/18 06:20 INR, PTT INR 1.04 (0.83-1.09) 04/07/18 13:00 Assessment/Plan She is an 87 year old female with a PMH of HTN, IDDM, gastroparesis, diverticulosis, CAD s/p PCI with BMS to LAD, RCA, OM1 in 2009 and 2011, PAF on Eliquis, COD, GI bleeding, and hypothyroidism. She presents now with nausea and vomiting, which started last night. The patient is well-known to us and was last seen on 03/31/18 for similar symptoms. She had chest pain after her vomiting. She was awaiting an EGD at last admission. 1. PAF -rates are well controlled. -continue Eliquis -no need for further telemetry monitoring. 2. Chest pain -nonischemic -most likely due to DM gastropathy. -no plans for ischemia workup at this time. will see as needed.
[2018-04-10] MEDS: NYSTATIN POWDER 100,000 UNITS/GM - 15 GM TOPICAL POWDER TP SCH (11:00)
--- NOTE | 2018-04-10 14:45 | CON.PSY ---
Psychiatry Consult Chief Complaint: 87 neeru old female with a history of Dementian and DM, HTn and other chronic medical conditions. patient seen for psych eval to determine capacity to make decisions, she apparantly refusing care and has difficultry comprehending the need for medical care. Symptoms: reports: Memory Impairment, Disorganized/Disruptive Thoughts - Previous Psychiatric Treatment Outpatient: None Inpatient: None - Previous Substance Abuse Treatment Outpatient: None Inpatient: None - Current Medications Current Medications: Active Medications Acetaminophen (Tylenol -) 650 mg PO Q6H PRN PRN Reason: FEVER Last Admin: 04/10/18 09:14 Dose: 650 mg Albuterol/Ipratropium (Duoneb -) 1 amp NEB Q6H PRN PRN Reason: SHORTNESS OF BREATH Apixaban (Eliquis -) 2.5 mg PO BID [facility] Last Admin: 04/10/18 09:15 Dose: 2.5 mg Atorvastatin Calcium (Lipitor -) 20 mg PO HS [facility] Last Admin: 04/09/18 21:08 Dose: 20 mg Fluticasone Propionate (Flonase -) 2 spray NS DAILY [facility] Last Admin: 04/10/18 09:19 Dose: 2 spray Insulin Aspart (Novolog Vial Sliding Scale -) 1 vial SQ ACHS [facility]; Protocol Last Admin: 04/10/18 12:06 Dose: 6 units Isosorbide Mononitrate (Imdur -) 30 mg PO DAILY [facility] Last Admin: 04/10/18 09:16 Dose: 30 mg Levothyroxine Sodium (Synthroid -) 100 mcg PO DAILY@0700 [facility] Last Admin: 04/10/18 06:00 Dose: 100 mcg Loratadine (Claritin -) 10 mg PO DAILY [facility] Last Admin: 04/10/18 09:15 Dose: 10 mg Metoprolol Tartrate (Lopressor -) 50 mg PO BID [facility] Last Admin: 04/10/18 09:15 Dose: 50 mg Nystatin (Nystop Powder -) 1 applic TP DAILY [facility] Last Admin: 04/09/18 10:05 Dose: 1 applic Ondansetron HCl (Zofran Odt -) 4 mg SL Q6H PRN PRN Reason: NAUSEA AND/OR VOMITING Last Admin: 04/10/18 10:20 Dose: 4 mg Pantoprazole Sodium (Protonix -) 40 mg PO BID [facility] Last Admin: 04/10/18 09:16 Dose: 40 mg Polyethylene Glycol (Miralax (For Daily Use) -) 17 gm PO DAILY [facility] Last Admin: 04/10/18 09:18 Dose: 17 grams Senna (Senna -) 1 tab PO HS [facility] Last Admin: 04/09/18 21:08 Dose: 1 tab Sitagliptin Phosphate (Januvia -) 50 mg PO DAILY@0700 [facility] Last Admin: 04/10/18 06:00 Dose: 50 mg Sodium Chloride ([place] Procious Nasal Procious -) 2 spray NS Q8H PRN PRN Reason: NASAL CONGESTION Last Admin: 04/09/18 09:57 Dose: 2 spray Sulfacetamide Sodium (Bleph-10 Ophthalmic Solution -) 1 drop OD Q3H [facility] Last Admin: 04/10/18 12:09 Dose: 1 drop - Allergies Allergies: Allergies Allergy/AdvReac Type Severity Reaction Status Date / Time vancomycin AdvReac Itching Verified 04/07/18 09:52 - Current Mental Status Evaluation Appearance: Disheveled Attitude: Guarded - Affect Affect: Constrictive Appropriateness: Not Appropriate - Mood Mood: Irritable - Speech/Language Expressive: Delayed - Psychomotor Activity Psychomotor Activity: Slowed - Thought Process Thought Process: Circumstantial - Thought Content Hallucinations: Absent Delusions: Absent - Self Perception Self Perception: No Impairment - Cognition Attention: Alert Orientation: Time Memory, Immediate Recall: Impaired Memory, Short Term: 1/3 Memory, Remote with Promptin/3 - Concentration Serial Sevens Intact: No Simple Calculations Intact: No - Abstraction Proverb Interpretation: Impaired Judgement: Minimally Impaired - Insight Insight: Impaired - Impulse Control Impulse Control: Minimally Impaired - Suicidal Ideation Suicidal Ideation: No - Homicidal Ideation Homicidal Ideation: No Assessment/Plan 1) patient lacks Functional Capacity to make informed medical decisions at this time due to Cognitive Impairment.
[2018-04-10] MEDS ORDERED: PT OWN MED DRAWER 7, Y5N ONE ×2 (16:04→23:30)
--- NOTE | 2018-04-10 20:09 | CONSULT ---
Consult Consult Specialty:: endocrine Referred by:: dr.rabadi de anda Reason for Consultation:: diabetes mellitus - History of Present Illness Chief Complaint: high sugars nausea vomiting History of Present Illness: 87 year old with history of HTN, DM, gastroparesis, diverticulosis, CAD, hypothyroidism BIBA who presents with multiple episodes of NBNB vomiting that onset yesterday evening. The patient vomiting 2 times and had some associated chest pain and possible shortness of breath prior to calling EMS. The patient still complains of nausea at bedside. has shoulder pain and dyspnea,cough weakness. 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 2011 dobut MIBI: no STs ; moderate reversible defect anterior and lateral faith confounded by large breast shadow; nl EF -> pt didn't follow as outpt as planned (was on DATP for a little while). Echo 09/13: nl LVEF, nl RV, nl valve fxn), HTN, Hyperlipdemia Pulmonary: Yes: COPD Gastrointestinal: Yes: Constipation Endocrine: Yes: Diabetes Mellitus (insulin-dependent for years -> uncontrolled) , Hypothyroidism Dermatology: Yes: Cellulitis (in past, with chronic and intermittent edema) - Alcohol/Substance Use Hx Alcohol Use: No History of Substance Use: reports: None - Smoking History Smoking history: Never smoked Have you smoked in the past 12 months: No Aproximately how many cigarettes per day: 0 If you are a former smoker, when did you quit?: 1984 - Social History Usual Living Arrangement: With Spouse (who is on HD) ADL: Family Assistance History of Recent Travel: No Home Medications - Allergies Allergies/Adverse Reactions: Allergies Allergy/AdvReac Type Severity Reaction Status Date / Time vancomycin AdvReac Itching Verified 04/07/18 09:52 - Home Medications Home Medications: Ambulatory Orders Atorvastatin Ca [Lipitor] 20 mg PO HS tablet 02/27/18 Polyethylene Glycol 3350 [Miralax 119 gm Btl -] 17 gm PO DAILY bottle 02/27/18 Docusate Sodium [Colace -] 100 mg PO BID capsule 03/25/18 Lidocaine Patch Removal [Lidoderm Patch Removal] 1 each MC DAILY@2200 #30 each 03/25/18 Nystatin Powder [Nystop Powder -] 1 applic TP DAILY #1 bottle 03/25/18 Ondansetron [Zofran Odt -] 4 mg SL Q8H #30 tab.rapdis 03/25/18 Acetaminophen [Tylenol .Regular Strength -] 650 mg PO Q6H PRN tablet 04/03/18 Apixaban [Eliquis -] 2.5 mg PO BID tablet 04/03/18 Isosorbide Mononitrate [Imdur -] 30 mg PO DAILY tab.sr.24h 04/03/18 Levothyroxine [Synthroid -] 100 mcg PO DAILY@0700 #30 tablet 04/03/18 Metoclopramide HCl [Reglan -] 5 mg PO TIDAC tablet 04/03/18 Metoprolol Tartrate [Lopressor -] 50 mg PO BID tablet 04/03/18 Pantoprazole Sodium [Protonix -] 40 mg PO BID #60 tablet.ec 04/03/18 Sennosides [Senna -] 2 tab PO HS tablet 04/03/18 Sitagliptin Phosphate [Januvia -] 50 mg PO DAILY@0700 tablet 04/03/18 Sulfacetamide Sodium 10% [Bleph-10 Ophthalmic Solution -] 1 drop OS Q3H drops 04/03/18 Family Disease History - Family Disease History Family Disease History: Diabetes: Daughter Review of Systems - Review of Systems Constitutional: reports: Loss of Appetite, Weakness Eyes: reports: Blurred Vision HENT: reports: Difficult Swallowing, Throat Pain, Ringing in Ears Neck: reports: Decreased ROM Cardiovascular: reports: Palpitations, Shortness of Breath Respiratory: reports: Exercise Intolerance, SOB on Exertion Gastrointestinal: reports: Bloating, Nausea Genitourinary: reports: Frequency, Urgency Musculoskeletal: reports: Extremity Pain, Muscle Pain, Muscle Cramps Neurological: reports: Weakness Endocrine: reports: Unexplained Weight Loss Physical Exam Vital Signs: Vital Signs Temperature 98.3 F 04/10/18 17:00 Pulse Rate 53 L 04/10/18 17:00 Respiratory Rate 20 04/10/18 17:00 Blood Pressure 116/59 L 04/10/18 17:00 O2 Sat by Pulse Oximetry (%) 96 04/10/18 08:47 Constitutional: Yes: Anxious Eyes: Yes: EOM Intact HENT: Yes: Normocephalic Cardiovascular: Yes: Tachycardia, Pulse Irregular Respiratory: Yes: SOB, Tachypnea Gastrointestinal: Yes: Abdomen, Obese, Hypoactive Bowel Sounds, Vomiting ...Rectal Exam: Yes: Deferred Renal/: Yes: WNL Musculoskeletal: Yes: Back Pain, Muscle Pain, Muscle Weakness Extremities: Yes: Delayed Capillary Refill Edema: Yes Edema: LLE: 2+, RLE: 2+ Integumentary: Yes: Onychomycosis Wound/Incision: Yes: Excoriated Neurological: Yes: Alert, Oriented Labs: CBC, BMP 04/08/18 06:20 04/08/18 06:20 Problem List - Problems (1) Abdominal pain Code(s): R10.9 - UNSPECIFIED ABDOMINAL PAIN Qualifiers: Abdominal location: generalized Qualified Code(s): R10.84 - Generalized abdominal pain (2) Acute metabolic encephalopathy Code(s): G93.41 - METABOLIC ENCEPHALOPATHY (3) Bakers cyst Code(s): M71.20 - SYNOVIAL CYST OF POPLITEAL SPACE [PETER], UNSPECIFIED KNEE (4) Bleeding external hemorrhoids Code(s): K64.4 - RESIDUAL HEMORRHOIDAL SKIN TAGS Assessment/Plan Current Active Problems diabetes mellitus hyperglycemia diabetic gastroparesis htn ashd pad venous stasis hypothyroidism CHF exacerbation (Acute) Laboratory Results - last 24 hr 04/09/18 04/10/18 04/10/18 20:49 11:20 16:28 POC Glucometer 287 301 138 Laboratory Tests 10/10/17 04/07/18 04/08/18 06:41 11:25 06:20 WBC 6.2 RBC 4.46 Hgb 13.4 MCV 94.3 MCH 29.9 MCHC 31.7 L RDW 15.7 H POC Glucometer TSH 12.70 H 5.74 H 04/09/18 04/09/18 04/09/18 06:34 10:56 16:31 WBC RBC Hgb MCV MCH MCHC RDW POC Glucometer 242 214 199 TSH 04/09/18 04/10/18 04/10/18 20:49 11:20 16:28 WBC RBC Hgb MCV MCH MCHC RDW POC Glucometer 287 301 138 TSH Laboratory Tests 04/08/18 04/08/18 06:20 06:30 Sodium 140 Potassium 3.5 Chloride 102 Carbon Dioxide 31 Anion Gap 8 BUN 8 Creatinine 0.8 Creat Clearance w eGFR > 60 POC Glucometer 200 plan: bgm qid novolog coverage Current Medications Generic Name Dose Route Start Last Admin Trade Name Freari PRN Reason Stop Dose Admin Acetaminophen 650 mg 04/07/18 15:51 04/10/18 09:14 Tylenol - PO 650 mg Q6H PRN Administration FEVER Albuterol/Ipratropium 1 amp 04/07/18 19:08 Duoneb - NEB Q6H PRN SHORTNESS OF BREATH Apixaban 2.5 mg 04/07/18 22:00 04/10/18 09:15 Eliquis - PO 2.5 mg BID [facility] Administration Atorvastatin Calcium 20 mg 04/07/18 22:00 04/09/18 21:08 Lipitor - PO 20 mg HS [facility] Administration Fluticasone Propionate 2 spray 04/07/18 19:15 04/10/18 09:19 Flonase - NS 2 spray DAILY [facility] Administration Insulin Aspart 1 vial 04/07/18 16:30 04/10/18 16:41 Novolog Vial Sliding Scale - SQ Not Given ACHS [facility] Protocol Isosorbide Mononitrate 30 mg 04/08/18 10:00 04/10/18 09:16 Imdur - PO 30 mg DAILY [facility] Administration Levothyroxine Sodium 100 mcg 04/08/18 07:00 04/10/18 06:00 Synthroid - PO 100 mcg DAILY@0700 [facility] Administration Loratadine 10 mg 04/07/18 19:15 04/10/18 09:15 Claritin - PO 10 mg DAILY [facility] Administration Metoprolol Tartrate 50 mg 04/07/18 22:00 04/10/18 09:15 Lopressor - PO 50 mg BID [facility] Administration Nystatin 1 applic 04/08/18 10:00 04/10/18 11:00 Nystop Powder - TP 1 applic DAILY [facility] Administration Ondansetron HCl 4 mg 04/07/18 15:51 04/10/18 10:20 Zofran Odt - SL 4 mg Q6H PRN Administration NAUSEA AND/OR VOMITING Pantoprazole Sodium 40 mg 04/07/18 22:00 04/10/18 09:16 Protonix - PO 40 mg BID [facility] Administration Polyethylene Glycol 17 gm 04/08/18 10:00 04/10/18 09:18 Miralax (For Daily Use) - PO 17 grams DAILY [facility] Administration Senna 1 tab 04/07/18 22:00 04/09/18 21:08 Senna - PO 1 tab HS [facility] Administration Sitagliptin Phosphate 50 mg 04/08/18 07:00 04/10/18 06:00 Januvia - PO 50 mg DAILY@0700 [facility] Administration Sodium Chloride 2 spray 04/07/18 19:08 04/09/18 09:57 [place] Nasal [place] - NS 2 spray Q8H PRN Administration NASAL CONGESTION Sulfacetamide Sodium 1 drop 04/07/18 16:00 04/10/18 16:32 Bleph-10 Ophthalmic Solution - OD 1 drop Q3H [facility] Administration dc januvia lidocain patch left shoulder
[2018-04-10] MEDS: SENNOSIDES 8.6MG TABLET (FP) PO SCH (21:59)
[2018-04-10] MEDS: ATORVASTATIN CA 20 MG TABLET (FP) PO SCH (21:59)
[2018-04-10] MEDS: LIDOCAINE 5% TOPICAL PATCH TP SCH (23:28)
[2018-04-11] MEDS: SULFACETAMIDE SODIUM 10% OPHTHALMIC DROPS 15 ML BOTTLE OD SCH ×6 (01:45→21:49)
[2018-04-11] MEDS: INSULIN SLIDING SCALE (NOVOLOG) 1 VIAL SQ SCH ×4 (06:50→21:50)
[2018-04-11] MEDS: LEVOTHYROXINE NA 100 MCG TABLET (FP) PO SCH (06:51)
[2018-04-11 07:42] LABS: HEMATOCRIT 42.1 % (32.4-45.2); HEMOGLOBIN 13.4 GM/dL (10.7-15.3); MCH 30.1 pg (25.7-33.7); MCHC 31.9 g/dl (32.0-36.0); MEAN CELL VOLUME 94.3 fl (80-96); MEAN PLT VOLUME 9.8 fl (7.5-11.1); PLATELET COUNT 172 K/MM3 (134-434); RBC 4.46 M/mm3 (3.60-5.2); RDW 15.1 % (11.6-15.6); WHITE BLOOD COUNT 7.3 K/mm3 (4.0-10.0)
[2018-04-11 08:09] LABS: ALBUMIN 2.6 g/dl (3.4-5.0); ALK PHOS 51 U/L (45-117); ANION GAP 6 MMOL/L (8-16); BILIRUBIN,TOTAL 1.2 mg/dL (0.2-1); BLOOD UREA NITROGEN 11 mg/dL (7-18); CALCIUM 8.5 mg/dL (8.5-10.1); CHLORIDE 100 mmol/L (98-107); CO2 32 mmol/L (21-32); CREATININE 0.8 mg/dL (0.55-1.3); GLUCOSE,RANDOM 246 mg/dL (74-106); POTASSIUM 3.5 mmol/L (3.5-5.1); SGOT/AST 16 U/L (15-37); SGPT/ALT 14 U/L (13-61); SODIUM 138 mmol/L (136-145); TOT PROT 5.5 g/dl (6.4-8.2)
[2018-04-11] MEDS ORDERED: PT OWN MED DRAWER 7, Y5N ONE ×2 (09:02→21:16)
--- NOTE | 2018-04-11 09:29 | DS ---
Physical Examination Vital Signs: Vital Signs Temperature 98 F 04/11/18 01:23 Pulse Rate 61 04/11/18 01:23 Respiratory Rate 20 04/11/18 01:23 Blood Pressure 148/77 04/11/18 01:23 O2 Sat by Pulse Oximetry (%) 94 L 04/10/18 20:16 Constitutional: Yes: Mild Distress Eyes: Yes: WNL HENT: Yes: WNL Neck: Yes: WNL Cardiovascular: Yes: Pulse Irregular Respiratory: Yes: Diminished Gastrointestinal: Yes: Abdomen, Obese Renal/: Yes: Incontinence Musculoskeletal: Yes: Muscle Weakness Extremities: Yes: Other Edema: Yes Peripheral Pulses WNL: Yes Integumentary: Yes: Venous Stasis Changes Neurological: Yes: Confusion ...Motor Strength: LLE, RLE Psychiatric: Yes: Other Labs: CBC, BMP 04/11/18 05:30 04/11/18 05:30 Discharge Summary Reason For Visit: ACUTE ON CHRONIC CHF Current Active Problems CHF exacerbation (Acute) toxic metabolic encephalopathy Procedures: Principal: ct scan Other Procedures: labs Hospital Course: admitted with acute on chronic chf, patient does not have capacity to make decisions per psychiatry will need snf/pulm rehab for short term to prevent readmissions and to stabilize outpatient plan/care Condition: Stable - Instructions Diet, Activity, Other Instructions: low sodium/ada/low cholesterol Referrals: Tyrell Back MD [Primary Care Provider] - Disposition: [facility] FACILITY - Home Medications Comprehensive Discharge Medication List: Ambulatory Orders Atorvastatin Ca [Lipitor] 20 mg PO HS tablet 02/27/18 Polyethylene Glycol 3350 [Miralax 119 gm Btl -] 17 gm PO DAILY bottle 02/27/18 Docusate Sodium [Colace -] 100 mg PO BID capsule 03/25/18 Lidocaine Patch Removal [Lidoderm Patch Removal] 1 each MC DAILY@2200 #30 each 03/25/18 Nystatin Powder [Nystop Powder -] 1 applic TP DAILY #1 bottle 03/25/18 Ondansetron [Zofran Odt -] 4 mg SL Q8H #30 tab.rapdis 03/25/18 Acetaminophen [Tylenol .Regular Strength -] 650 mg PO Q6H PRN tablet 04/03/18 Apixaban [Eliquis -] 2.5 mg PO BID tablet 04/03/18 Isosorbide Mononitrate [Imdur -] 30 mg PO DAILY tab.sr.24h 04/03/18 Levothyroxine [Synthroid -] 100 mcg PO DAILY@0700 #30 tablet 04/03/18 Metoclopramide HCl [Reglan -] 5 mg PO TIDAC tablet 04/03/18 Metoprolol Tartrate [Lopressor -] 50 mg PO BID tablet 04/03/18 Pantoprazole Sodium [Protonix -] 40 mg PO BID #60 tablet.ec 04/03/18 Sennosides [Senna -] 2 tab PO HS tablet 04/03/18 Sitagliptin Phosphate [Januvia -] 50 mg PO DAILY@0700 tablet 04/03/18 Sulfacetamide Sodium 10% [Bleph-10 Ophthalmic Solution -] 1 drop OS Q3H drops 04/03/18
[2018-04-11] MEDS: LORATADINE 10 MG TABLET PO SCH (10:55)
[2018-04-11] MEDS: FLUTICASONE PROP 0.05% 16 GM NASAL SPRAY NS SCH (10:55)
[2018-04-11] MEDS: APIXABAN 2.5 MG TABLET PO SCH ×2 (10:55→21:49)
[2018-04-11] MEDS: POLYETHYLENE GLYCOL 3350 119 GM BTL PO SCH (10:56)
[2018-04-11] MEDS: NYSTATIN POWDER 100,000 UNITS/GM - 15 GM TOPICAL POWDER TP SCH (10:56)
[2018-04-11] MEDS: ISOSORBIDE MONONITRATE 30 MG TAB.SR.24H (FP) PO SCH (10:56)
[2018-04-11] MEDS: METOPROLOL TARTRATE 50 MG TABLET (FP) PO SCH ×2 (10:56→21:49)
[2018-04-11] MEDS: PANTOPRAZOLE 40 MG TABLET (FP) PO SCH ×2 (10:57→21:49)
[2018-04-11] MEDS ORDERED: ONDANSETRON *ODT* 4 MG TABLET SL PRN (16:25)
[2018-04-11] MEDS ORDERED: SODIUM CHLORIDE NASAL SPRAY 44 ML BOTTLE NS PRN (16:25)
[2018-04-11] MEDS ORDERED: ALBUTEROL SO4 2.5/IPRATROPIUM 0.5 INH SOL 3 ML VIAL.NEB. NEB PRN (16:25)
--- NOTE | 2018-04-11 16:59 | PN ---
Progress Note (short form) - Note Progress Note: WILL HOLD OFF ON DISCHARGE DUE TO NAUSEA AND VOMITING DUE TO DM WITH GASTROPARESIS. CHECK SB SERIES/GASTRIC EMPTYING GI EVAL REGLAN IV Problem List - Problems (1) CHF exacerbation Code(s): I50.9 - HEART FAILURE, UNSPECIFIED (2) Abdominal pain Code(s): R10.9 - UNSPECIFIED ABDOMINAL PAIN Qualifiers: Abdominal location: generalized Qualified Code(s): R10.84 - Generalized abdominal pain (3) Acute metabolic encephalopathy Code(s): G93.41 - METABOLIC ENCEPHALOPATHY (4) Acute renal failure Code(s): N17.9 - ACUTE KIDNEY FAILURE, UNSPECIFIED Qualifiers: Acute renal failure type: unspecified Qualified Code(s): N17.9 - Acute kidney failure, unspecified (5) Afib Code(s): I48.91 - UNSPECIFIED ATRIAL FIBRILLATION (6) Diabetes Code(s): E11.9 - TYPE 2 DIABETES MELLITUS WITHOUT COMPLICATIONS Qualifiers: Diabetes mellitus type: type 2 Diabetes mellitus complication status: with neurologic complications (7) Lung nodule Code(s): R91.1 - SOLITARY PULMONARY NODULE (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
[2018-04-11] MEDS: ACETAMINOPHEN 325 MG TABLET (FP) PO PRN (17:20)
[2018-04-11] MEDS: METOCLOPRAMIDE HCL INJECTION 10 MG/2 ML VIAL IVPUSH SCH (17:21)
[2018-04-11] MEDS: AMINO ACIDS/PROTEIN HYDROLYS 30 ML LIQUID.PKT PO SCH (17:21)
--- NOTE | 2018-04-11 19:40 | PN ---
GI Progress Note Subjective: patient has multiple admissions because of nausea and vomiting. EGD revelaed 6 cm hiatal hernia and gastritis. She is very sensitive to Aspirin which gives her intractable vomiting at home. - Objective Vital Signs: Vital Signs Temperature 98.3 F 04/11/18 14:58 Pulse Rate 61 04/11/18 14:58 Respiratory Rate 18 04/11/18 14:58 Blood Pressure 117/67 04/11/18 14:58 O2 Sat by Pulse Oximetry (%) 94 L 04/11/18 09:00 Constitutional: Well Nourished Eyes: Yes: Conjunctiva Clear HENT: Yes: Atraumatic Neck: Yes: Supple Cardiovascular: Yes: Regular Rate and Rhythm Respiratory: Yes: CTA Bilaterally ...Palpate: Yes: Soft. No: Firm/Rigid, Guarding, Hepatomegaly, Mass, Pulsatile Mass, Splenomegaly, Tenderness Labs: CBC, BMP 04/11/18 05:30 04/11/18 05:30 INR, PTT INR 1.04 (0.83-1.09) 04/07/18 13:00 Problem List - Problems (1) Gastroparesis Assessment/Plan: R> will need 6 small feedings a day ' consider to decrease Reglan 5mg 30 min ac Zofran 4mg tid for [address] of the head if not done recently small bowel series Code(s): K31.84 - GASTROPARESIS
[2018-04-11] MEDS ORDERED: INSULIN (NOVOLOG) ASPART 100 UNITS/ML 10ML VIAL ONE (21:15)
[2018-04-11] MEDS: LIDOCAINE 5% TOPICAL PATCH TP SCH (21:49)
[2018-04-11] MEDS: ATORVASTATIN CA 20 MG TABLET (FP) PO SCH (21:50)
[2018-04-11] MEDS: LIDOCAINE PATCH REMOVAL MC SCH (21:50)
[2018-04-11] MEDS: SENNOSIDES 8.6MG TABLET (FP) PO SCH (21:50)
--- NOTE | 2018-04-11 22:16 | PN ---
Progress Note (short form) - Note Progress Note: improving appetite and eating Current Active Problems CHF exacerbation (Acute) dm 2 gastroparesis htn hypothyroidism dehydration Abnormal Lab Results 04/11/18 04/11/18 05:30 05:30 MCHC 31.9 L Anion Gap 6 L Random Glucose 246 H Total Bilirubin 1.2 H Total Protein 5.5 L Albumin 2.6 L Laboratory Tests 04/11/18 04/11/18 04/11/18 05:30 06:48 11:20 Sodium 138 Potassium 3.5 Chloride 100 Carbon Dioxide 32 Anion Gap 6 L BUN 11 Creatinine 0.8 POC Glucometer 226 300 Calcium 8.5 04/11/18 04/11/18 17:28 21:45 Sodium Potassium Chloride Carbon Dioxide Anion Gap BUN Creatinine POC Glucometer 243 247 Calcium plan: bgm qid novolog insulin levemir 15 units daily advance and diet improves Problem List - Problems (1) Abdominal pain Code(s): R10.9 - UNSPECIFIED ABDOMINAL PAIN Qualifiers: Abdominal location: generalized Qualified Code(s): R10.84 - Generalized abdominal pain (2) Acute metabolic encephalopathy Code(s): G93.41 - METABOLIC ENCEPHALOPATHY (3) Bakers cyst Code(s): M71.20 - SYNOVIAL CYST OF POPLITEAL SPACE [PETER], UNSPECIFIED KNEE (4) Bleeding external hemorrhoids Code(s): K64.4 - RESIDUAL HEMORRHOIDAL SKIN TAGS
[2018-04-12] MEDS: SULFACETAMIDE SODIUM 10% OPHTHALMIC DROPS 15 ML BOTTLE OD SCH ×7 (02:12→21:48)
[2018-04-12] MEDS: METOCLOPRAMIDE HCL INJECTION 10 MG/2 ML VIAL IVPUSH SCH (02:14)
[2018-04-12] MEDS: INSULIN SLIDING SCALE (NOVOLOG) 1 VIAL SQ SCH ×4 (06:29→21:49)
[2018-04-12] MEDS: LEVOTHYROXINE NA 100 MCG TABLET (FP) PO SCH (06:29)
[2018-04-12] MEDS: INSULIN (LEVEMIR) 100 UNITS/ML UNITS SQ SCH (06:30)
--- NOTE | 2018-04-12 07:30 | PN ---
GI Progress Note Subjective: Patient denies nausea or vomiting through the night. Denies abdominal pain. - Objective Vital Signs: Vital Signs Temperature 98.2 F 04/12/18 06:04 Pulse Rate 62 04/12/18 06:04 Respiratory Rate 20 04/12/18 06:04 Blood Pressure 148/75 04/12/18 06:04 O2 Sat by Pulse Oximetry (%) 94 L 04/11/18 09:00 Constitutional: No Distress, Calm, Obese Eyes: Yes: Conjunctiva Clear Neck: Yes: Supple Cardiovascular: Yes: Regular Rate and Rhythm Respiratory: Yes: Regular, CTA Bilaterally Gastrointestinal Inspection: Yes: WNL ...Auscultate: Yes: Normoactive Bowel Sounds ...Palpate: Yes: Soft Edema: No Labs: CBC, BMP 04/11/18 05:30 04/11/18 05:30 INR, PTT INR 1.04 (0.83-1.09) 04/07/18 13:00 Problem List - Problems (1) Gastroparesis Assessment/Plan: R> continue Reglan, Pantoprazole and Reglan Code(s): K31.84 - GASTROPARESIS
[2018-04-12] MEDS: AMINO ACIDS/PROTEIN HYDROLYS 30 ML LIQUID.PKT PO SCH ×2 (08:30→16:34)
[2018-04-12] MEDS: ONDANSETRON 8 MG TABLET (FP) PO SCH ×3 (08:30→21:44)
[2018-04-12] MEDS: PANTOPRAZOLE 40 MG TABLET (FP) PO SCH ×2 (10:00→21:43)
[2018-04-12] MEDS: POLYETHYLENE GLYCOL 3350 119 GM BTL PO SCH (10:00)
[2018-04-12] MEDS ORDERED: ONDANSETRON 4 MG TABLET PO ONE ×2 (10:24→21:10)
[2018-04-12] MEDS: METOCLOPRAMIDE HCL 10 MG TABLET (FP) PO SCH ×2 (11:00→15:42)
--- NOTE | 2018-04-12 11:44 | CONSULT ---
Admitting History and Physical - Primary Care Physician PCP: Wei Lam - Admission History of Present Illness: 87 year old with history of HTN, DM, gastroparesis, diverticulosis, CAD, hypothyroidism BIBA who presents with multiple episodes of NBNB vomiting that onset yesterday evening. The patient vomiting 2 times and had some associated chest pain and possible shortness of breath prior to calling EMS Selected Entries 04/09/18 04/10/18 04/10/18 11:02 09:47 19:30 Breakfast 50% 0 Supper 25% Temperature 04/11/18 04/11/18 04/11/18 01:23 10:46 11:48 Breakfast 50% Supper Temperature 98 F 98.5 F 04/11/18 04/11/18 04/11/18 14:07 14:58 20:17 Breakfast Supper 25% Temperature 98.2 F 98.3 F 04/11/18 04/12/18 22:08 06:04 Breakfast Supper Temperature 98.4 F 98.2 F Laboratory Tests 04/11/18 05:30 WBC 7.3 DISCHARGE HELD DUE TO NAUSEA AND VOMITING DUE TO DM WITH GASTROPARESIS. CHECK SB SERIES/GASTRIC EMPTYING GI EVAL REGLAN IV Per GI note:patient has multiple admissions because of nausea and vomiting. EGD revealed 6 cm hiatal hernia and gastritis. She is very sensitive to Aspirin which gives her intractable vomiting at home. Per GI-Gastroparesis Assessment/Plan: will need 6 small feedings a day ' consider to decrease Reglan 5mg 30 min ac Zofran 4mg tid for [address] of the head -done (-) small bowel series This is my first consult with this pt. Chart reviewed and case discussed with nursing. Pt reportedly vomited on 04/09 ? but not since. No overt signs of dysphagia repoted by staff. Pt down in xray for small bowel and CT head. Pt seen down in Radiology. Tech reported 15 after pt accepted Barium, she spit up a little of it. Motility was not assessed on fluoro, with spots taken later. Pt was in reclining position. History Source: Medical Record Limitations to Obtaining History: Clinical Condition - Past Medical History [employer]OR: Yes: Dementia, Vertigo Cardiovascular: Yes: CAD (BMS to pLAD, BILLIE to pRCA, then 2009 cath with BILLIE to OM1 (at that time the LAD and RCA stents were patent, residual 80-90% dist LAD small vessel and severe/diffuse dz small diag; nl EF). 2012 dobut MIBI: no STs ; moderate reversible defect anterior and lateral faith confounded by large breast shadow; nl EF -> pt didn't follow as outpt as planned (was on DATP for a little while). Echo 09/13: nl LVEF, nl RV, nl valve fxn), HTN, Hyperlipdemia Pulmonary: Yes: COPD Gastrointestinal: Yes: Constipation Heme/Onc: Yes: Cancer (thyroid) Endocrine: Yes: Diabetes Mellitus (insulin-dependent for years -> uncontrolled) , Hypothyroidism Dermatology: Yes: Cellulitis (in past, with chronic and intermittent edema) - Smoking History Smoking history: Never smoked Have you smoked in the past 12 months: No Aproximately how many cigarettes per day: 0 If you are a former smoker, when did you quit?: 1984 - Alcohol/Substance Use Hx Alcohol Use: No History of Substance Use: reports: None - Social History ADL: Family Assistance History of Recent Travel: No History - Admission Reason For Visit: ACUTE ON CHRONIC CHF - General Mental Status: Vague, Confused Attention: Distractible (Eyes closed most of time, some verbal responses.) Ability to Follow Directions: Fair - Hearing Hearing: Normal Speech Evaluation - Communication Primary Language: MALIAN Communication: Yes: Simple Responses - Speech Production Intelligibility: Yes: Mildly Impaired - Speech Characteristics Voice Loudness: Mildly Soft/Quiet Voice Pitch: Yes: Normal Voice Phonatory-based Quality: Yes: Normal Speech Clarity: < 75% Nasal Resonance: Normal Articulation: Yes: Imprecise - Language/Auditory Comprehension Follows: Yes: 1 Stage Simple Commands - Swallow Evaluation/Bedside Assessment Current Nutritional Intake: Regular, Thin Liquids Oral Secretions: Yes: WFL Facial Symmetry at Rest: Symmetrical Pucker Lips: Normal Smile: Normal Lingual Movement: Symmetric Lingual Speed of Movement: Normal Lingual Movement Strgth Against Opposition: Normal Lingual Movement Characteristics: Normal Laryngeal Movement: Labored,delay initiation Rate of Intake: WFL Bolus Size: WFL Labial Seal: Impaired Right Chewing: WFL Oral Prep Time: WFL A-P Transit: WFL Pocketing: None Timing of Swallow: WFL Coughing/Throat Clear: No Change in Voice: No Recommendations - Speech Evaluation, Impression/Plan Impression: Pt seen down in Radiology. Tech reported 15 after pt accepted Barium , she spit up a little of it. Motility was not assessed on fluoro, with spots taken later. Pt was in reclining position. F/u by GI. Possibly sec to impaired esophageal emptying (Amotility/Dysmotility?) Bedside eval WNL. - Dysphagia Impressions/Plan Swallowing Skills: WFL Dysphagia Impressions: Minimal Impairment *Silent aspiration: cannot be R/O at bedside Dysphagia Treatment Plan: Small Bites, Safe Rate, 1/2 tsp. at a time, OOB for meals, OOB for 1 h. after meals, Other (Alternate solids with l;iquids. Several small meals throughout the day.) Recommendations: Other (Pending results of small bowel series. Follow up by GI, as indicated for w/u.)
[2018-04-12] MEDS: APIXABAN 2.5 MG TABLET PO SCH ×2 (15:37→21:43)
[2018-04-12] MEDS: ISOSORBIDE MONONITRATE 30 MG TAB.SR.24H (FP) PO SCH (15:37)
[2018-04-12] MEDS: LORATADINE 10 MG TABLET PO SCH (15:38)
[2018-04-12] MEDS: METOPROLOL TARTRATE 50 MG TABLET (FP) PO SCH ×2 (15:40→21:43)
[2018-04-12] MEDS: FLUTICASONE PROP 0.05% 16 GM NASAL SPRAY NS SCH (15:44)
[2018-04-12] MEDS: NYSTATIN POWDER 100,000 UNITS/GM - 15 GM TOPICAL POWDER TP SCH (15:48)
--- NOTE | 2018-04-12 16:01 | PN ---
Progress Note, Physician Chief Complaint: no abdominal pain went down for small bowel series on reglan and zofran tid for 1 week - Current Medication List Current Medications: Active Medications Acetaminophen (Tylenol -) 650 mg PO Q6H PRN PRN Reason: FEVER Last Admin: 04/11/18 17:20 Dose: 650 mg Albuterol/Ipratropium (Duoneb -) 1 amp NEB Q6H PRN PRN Reason: SHORTNESS OF BREATH Amino Acids (Prosource No Carb Liquid Pkt) 30 ml PO BID@0800,1730 [facility] Last Admin: 04/11/18 17:21 Dose: 30 ml Apixaban (Eliquis -) 2.5 mg PO BID [facility] Last Admin: 04/11/18 21:49 Dose: 2.5 mg Atorvastatin Calcium (Lipitor -) 20 mg PO [facility] Last Admin: 04/11/18 21:50 Dose: 20 mg Fluticasone Propionate (Flonase -) 2 spray NS DAILY [facility] Insulin Aspart (Novolog Vial Sliding Scale -) 1 vial SQ ACHS [facility]; Protocol Last Admin: 04/12/18 06:29 Dose: 2 unit Insulin Detemir (Levemir Vial) 15 units SQ AM [facility] Last Admin: 04/12/18 06:30 Dose: 15 units Isosorbide Mononitrate (Imdur -) 30 mg PO DAILY [facility] Levothyroxine Sodium (Synthroid -) 100 mcg PO DAILY@0700 [facility] Last Admin: 04/12/18 06:29 Dose: 100 mcg Lidocaine (Lidoderm Patch -) 1 patch TP [facility] Last Admin: 04/11/18 21:49 Dose: 1 patch Loratadine (Claritin -) 10 mg PO DAILY [facility] Metoclopramide HCl (Reglan -) 5 mg PO TIDAC [facility] Metoprolol Tartrate (Lopressor -) 50 mg PO BID [facility] Last Admin: 04/11/18 21:49 Dose: 50 mg Miscellaneous (Lidoderm Patch Removal) 1 each MC DAILY@2200 [facility] Last Admin: 04/11/18 21:50 Dose: 1 each Nystatin (Nystop Powder -) 1 applic TP DAILY [facility] Ondansetron HCl (Zofran -) 8 mg PO TID [facility] Pantoprazole Sodium (Protonix -) 40 mg PO BID [facility] Last Admin: 04/11/18 21:49 Dose: 40 mg Polyethylene Glycol (Miralax (For Daily Use) -) 17 gm PO DAILY [facility] Senna (Senna -) 1 tab PO HS [facility] Last Admin: 04/11/18 21:50 Dose: 1 tab Sodium Chloride ([place]al [place] -) 2 spray NS Q8H PRN PRN Reason: NASAL CONGESTION Sulfacetamide Sodium (Bleph-10 Ophthalmic Solution -) 1 drop OD Q3H [facility] Last Admin: 04/12/18 02:12 Dose: Not Given - Objective Vital Signs: Vital Signs Temperature 98.2 F 04/12/18 06:04 Pulse Rate 62 04/12/18 06:04 Respiratory Rate 20 04/12/18 06:04 Blood Pressure 148/75 04/12/18 06:04 O2 Sat by Pulse Oximetry (%) 94 L 04/11/18 09:00 Constitutional: Yes: Calm Cardiovascular: Yes: Regular Rate and Rhythm, S1, S2 Respiratory: Yes: CTA Bilaterally Gastrointestinal: Yes: Normal Bowel Sounds, Soft Neurological: Yes: Alert Labs: CBC, BMP 04/11/18 05:30 04/11/18 05:30 INR, PTT INR 1.04 (0.83-1.09) 04/07/18 13:00 Problem List - Problems (1) Abdominal pain Assessment/Plan: small bowel series done negative reglan protonix and zofran Code(s): R10.9 - UNSPECIFIED ABDOMINAL PAIN Qualifiers: Abdominal location: generalized Qualified Code(s): R10.84 - Generalized abdominal pain (2) Afib Assessment/Plan: on eliquis and lopressor Code(s): I48.91 - UNSPECIFIED ATRIAL FIBRILLATION (3) Diabetes Assessment/Plan: seen by endocrine on levemir Code(s): E11.9 - TYPE 2 DIABETES MELLITUS WITHOUT COMPLICATIONS Qualifiers: Diabetes mellitus type: type 2 Diabetes mellitus complication status: with neurologic complications
[2018-04-12] MEDS: ACETAMINOPHEN 325 MG TABLET (FP) PO PRN (16:54)
[2018-04-12] MEDS: SENNOSIDES 8.6MG TABLET (FP) PO SCH (21:43)
[2018-04-12] MEDS: LIDOCAINE PATCH REMOVAL MC SCH (21:43)
[2018-04-12] MEDS: ATORVASTATIN CA 20 MG TABLET (FP) PO SCH (21:43)
[2018-04-13] MEDS: SULFACETAMIDE SODIUM 10% OPHTHALMIC DROPS 15 ML BOTTLE OD SCH ×8 (01:00→21:46)
[2018-04-13] MEDS: LEVOTHYROXINE NA 100 MCG TABLET (FP) PO SCH (06:43)
[2018-04-13] MEDS: ONDANSETRON 4 MG TABLET PO SCH ×3 (06:44→21:46)
[2018-04-13] MEDS: METOCLOPRAMIDE HCL 10 MG TABLET (FP) PO SCH ×3 (06:44→17:05)
[2018-04-13] MEDS: INSULIN SLIDING SCALE (NOVOLOG) 1 VIAL SQ SCH ×4 (06:45→21:48)
[2018-04-13] MEDS: INSULIN (LEVEMIR) 100 UNITS/ML UNITS SQ SCH (06:45)
--- NOTE | 2018-04-13 07:27 | PN ---
GI Progress Note Subjective: Denies nausea or vomiting. Complain of epigastric pain and difficulty swallowing that developed during the night. - Objective Vital Signs: Vital Signs Temperature 98.1 F 04/13/18 04:00 Pulse Rate 61 04/13/18 04:00 Respiratory Rate 20 04/13/18 04:00 Blood Pressure 119/63 04/13/18 04:00 O2 Sat by Pulse Oximetry (%) 94 L 04/12/18 22:00 Constitutional: No Distress, Calm, Obese Eyes: Yes: Conjunctiva Clear Neck: Yes: Supple Cardiovascular: Yes: Regular Rate and Rhythm Respiratory: Yes: Regular, CTA Bilaterally Gastrointestinal Inspection: Yes: WNL ...Auscultate: Yes: Normoactive Bowel Sounds ...Palpate: Yes: Soft, Tenderness (generalized) Genitourinary: Yes: Incontinence Musculoskeletal: Yes: Muscle Weakness Neurological: Yes: Alert Labs: CBC, BMP 04/11/18 05:30 04/11/18 05:30 INR, PTT INR 1.04 (0.83-1.09) 04/07/18 13:00 Problem List - Problems (1) Gastroparesis Code(s): K31.84 - GASTROPARESIS
[2018-04-13] MEDS: AMINO ACIDS/PROTEIN HYDROLYS 30 ML LIQUID.PKT PO SCH ×2 (08:45→17:05)
[2018-04-13] MEDS ORDERED: PT OWN MED DRAWER 7, Y5N ONE ×2 (10:37→10:57)
[2018-04-13] MEDS: PANTOPRAZOLE 40 MG TABLET (FP) PO SCH ×2 (10:46→21:46)
[2018-04-13] MEDS: ISOSORBIDE MONONITRATE 30 MG TAB.SR.24H (FP) PO SCH (10:46)
[2018-04-13] MEDS: METOPROLOL TARTRATE 50 MG TABLET (FP) PO SCH ×2 (10:46→21:47)
[2018-04-13] MEDS: APIXABAN 2.5 MG TABLET PO SCH ×2 (10:46→21:46)
[2018-04-13] MEDS: LORATADINE 10 MG TABLET PO SCH (10:46)
[2018-04-13] MEDS: FLUTICASONE PROP 0.05% 16 GM NASAL SPRAY NS SCH (10:50)
[2018-04-13] MEDS: POLYETHYLENE GLYCOL 3350 119 GM BTL PO SCH (11:02)
[2018-04-13] MEDS: NYSTATIN POWDER 100,000 UNITS/GM - 15 GM TOPICAL POWDER TP SCH (11:02)
[2018-04-13] MEDS: LIDOCAINE PATCH REMOVAL MC SCH ×2 (11:07→21:45)
--- NOTE | 2018-04-13 17:47 | PN ---
Progress Note, Physician - Current Medication List Current Medications: Active Medications Acetaminophen (Tylenol -) 650 mg PO Q6H PRN PRN Reason: FEVER Last Admin: 04/12/18 16:54 Dose: 650 mg Albuterol/Ipratropium (Duoneb -) 1 amp NEB Q6H PRN PRN Reason: SHORTNESS OF BREATH Amino Acids (Prosource No Carb Liquid Pkt) 30 ml PO BID@0800,1730 [facility] Last Admin: 04/13/18 17:05 Dose: 30 ml Apixaban (Eliquis -) 2.5 mg PO BID [facility] Last Admin: 04/13/18 21:46 Dose: 2.5 mg Atorvastatin Calcium (Lipitor -) 20 mg PO HS [facility] Last Admin: 04/13/18 21:46 Dose: 20 mg Bisacodyl (Dulcolax Suppository -) 10 mg [place] PRN PRN PRN Reason: CONSTIPATION Last Admin: 04/13/18 21:46 Dose: 10 mg Fluticasone Propionate (Flonase -) 2 spray NS DAILY [facility] Last Admin: 04/13/18 10:50 Dose: 2 spray Insulin Aspart (Novolog Vial Sliding Scale -) 1 vial SQ ACHS [facility]; Protocol Last Admin: 04/14/18 06:15 Dose: 2 unit Insulin Detemir (Levemir Vial) 15 units SQ AM [facility] Last Admin: 04/14/18 06:07 Dose: 15 units Isosorbide Mononitrate (Imdur -) 30 mg PO DAILY [facility] Last Admin: 04/13/18 10:46 Dose: 30 mg Levothyroxine Sodium (Synthroid -) 100 mcg PO DAILY@0700 [facility] Last Admin: 04/14/18 06:05 Dose: 100 mcg Lidocaine (Lidoderm Patch -) 1 patch TP HS [facility] Last Admin: 04/11/18 21:49 Dose: 1 patch Loratadine (Claritin -) 10 mg PO DAILY [facility] Last Admin: 04/13/18 10:46 Dose: 10 mg Metoclopramide HCl (Reglan -) 5 mg PO TIDAC [facility] Last Admin: 04/14/18 06:05 Dose: 5 mg Metoprolol Tartrate (Lopressor -) 50 mg PO BID [facility] Last Admin: 04/13/18 21:47 Dose: 50 mg Miscellaneous (Lidoderm Patch Removal) 1 each MC DAILY@2200 [facility] Last Admin: 04/13/18 21:45 Dose: 1 each Nystatin (Nystop Powder -) 1 applic TP DAILY [facility] Last Admin: 04/13/18 11:02 Dose: 1 applic Ondansetron HCl (Zofran -) 8 mg PO TID [facility] Last Admin: 04/14/18 06:04 Dose: 8 mg Pantoprazole Sodium (Protonix -) 40 mg PO BID [facility] Last Admin: 04/13/18 21:46 Dose: 40 mg Polyethylene Glycol (Miralax (For Daily Use) -) 17 gm PO DAILY [facility] Last Admin: 04/13/18 11:02 Dose: 17 grams Senna (Senna -) 1 tab PO HS [facility] Last Admin: 04/13/18 21:46 Dose: 1 tab Sodium Chloride ([place] Nasal [place] -) 2 spray NS Q8H PRN PRN Reason: NASAL CONGESTION Sulfacetamide Sodium (Bleph-10 Ophthalmic Solution -) 1 drop OD Q3H [facility] Last Admin: 04/14/18 06:06 Dose: 1 drop - Objective Vital Signs: Vital Signs Temperature 99.9 F H 04/14/18 06:00 Pulse Rate 67 04/14/18 06:00 Respiratory Rate 20 04/14/18 03:00 Blood Pressure 160/76 04/14/18 06:00 O2 Sat by Pulse Oximetry (%) 95 04/13/18 22:00 Labs: CBC, BMP 04/14/18 07:00 04/14/18 07:00 INR, PTT INR 1.04 (0.83-1.09) 04/07/18 13:00 <Wei Lam - Last Filed: 04/14/18 08:37> Chief Complaint: Nausea, Vomiting CHest Pain SOB Chest CT scan-1.5cm RLL pleural based nodule History of Present Illness: Previous events and notes reviewed awake and alert NAD denies nausea, vomiting, epigastric pain - Current Medication List Current Medications: Active Medications Acetaminophen (Tylenol -) 650 mg PO Q6H PRN PRN Reason: FEVER Last Admin: 04/12/18 16:54 Dose: 650 mg Albuterol/Ipratropium (Duoneb -) 1 amp NEB Q6H PRN PRN Reason: SHORTNESS OF BREATH Amino Acids (Prosource No Carb Liquid Pkt) 30 ml PO BID@0800,1730 [facility] Last Admin: 04/13/18 17:05 Dose: 30 ml Apixaban (Eliquis -) 2.5 mg PO BID [facility] Last Admin: 04/13/18 10:46 Dose: 2.5 mg Atorvastatin Calcium (Lipitor -) 20 mg PO HS [facility] Last Admin: 04/12/18 21:43 Dose: 20 mg Fluticasone Propionate (Flonase -) 2 spray NS DAILY [facility] Last Admin: 04/13/18 10:50 Dose: 2 spray Insulin Aspart (Novolog Vial Sliding Scale -) 1 vial SQ ACHS [facility]; Protocol Last Admin: 04/13/18 17:02 Dose: Not Given Insulin Detemir (Levemir Vial) 15 units SQ AM [facility] Last Admin: 04/13/18 06:45 Dose: 15 units Isosorbide Mononitrate (Imdur -) 30 mg PO DAILY [facility] Last Admin: 04/13/18 10:46 Dose: 30 mg Levothyroxine Sodium (Synthroid -) 100 mcg PO DAILY@0700 [facility] Last Admin: 04/13/18 06:43 Dose: 100 mcg Lidocaine (Lidoderm Patch -) 1 patch TP [facility] Last Admin: 04/11/18 21:49 Dose: 1 patch Loratadine (Claritin -) 10 mg PO DAILY [facility] Last Admin: 04/13/18 10:46 Dose: 10 mg Metoclopramide HCl (Reglan -) 5 mg PO TIDAC [facility] Last Admin: 04/13/18 17:05 Dose: 5 mg Metoprolol Tartrate (Lopressor -) 50 mg PO BID [facility] Last Admin: 04/13/18 10:46 Dose: 50 mg Miscellaneous (Lidoderm Patch Removal) 1 each MC DAILY@2200 [facility] Last Admin: 04/13/18 11:07 Dose: 1 each Nystatin (Nystop Powder -) 1 applic TP DAILY [facility] Last Admin: 04/13/18 11:02 Dose: 1 applic Ondansetron HCl (Zofran -) 8 mg PO TID [facility] Last Admin: 04/13/18 14:42 Dose: 8 mg Pantoprazole Sodium (Protonix -) 40 mg PO BID [facility] Last Admin: 04/13/18 10:46 Dose: 40 mg Polyethylene Glycol (Miralax (For Daily Use) -) 17 gm PO DAILY [facility] Last Admin: 04/13/18 11:02 Dose: 17 grams Senna (Senna -) 1 tab PO HS [facility] Last Admin: 04/12/18 21:43 Dose: 1 tab Sodium Chloride ([place] Nas[place] -) 2 spray NS Q8H PRN PRN Reason: NASAL CONGESTION Sulfacetamide Sodium (Bleph-10 Ophthalmic Solution -) 1 drop OD Q3H [facility] Last Admin: 04/13/18 17:03 Dose: 1 drop - Objective Vital Signs: Vital Signs Temperature 98.4 F 04/13/18 14:28 Pulse Rate 64 04/13/18 14:28 Respiratory Rate 20 04/13/18 10:12 Blood Pressure 100/50 L 04/13/18 14:28 O2 Sat by Pulse Oximetry (%) 94 L 04/13/18 09:00 Constitutional: Yes: No Distress, Calm, Obese Eyes: Yes: Conjunctiva Clear Neck: Yes: Supple Cardiovascular: Yes: Regular Rate and Rhythm Respiratory: Yes: Regular, CTA Bilaterally Gastrointestinal: Yes: Normal Bowel Sounds, Soft, Abdomen, Obese Genitourinary: Yes: Incontinence Musculoskeletal: Yes: Muscle Weakness Extremities: Yes: WNL Edema: No Integumentary: Yes: WNL Neurological: Yes: Alert, Pre-Existing Deficit Psychiatric: Yes: Alert Labs: CBC, BMP 04/11/18 05:30 04/11/18 05:30 INR, PTT INR 1.04 (0.83-1.09) 04/07/18 13:00 <Wen Pop - Last Filed: 04/25/18 15:09> Problem List - Problems (1) CHF exacerbation Code(s): I50.9 - HEART FAILURE, UNSPECIFIED (2) Abdominal pain Code(s): R10.9 - UNSPECIFIED ABDOMINAL PAIN Qualifiers: Abdominal location: generalized Qualified Code(s): R10.84 - Generalized abdominal pain (3) Acute metabolic encephalopathy Code(s): G93.41 - METABOLIC ENCEPHALOPATHY (4) Acute renal failure Code(s): N17.9 - ACUTE KIDNEY FAILURE, UNSPECIFIED Qualifiers: Acute renal failure type: unspecified Qualified Code(s): N17.9 - Acute kidney failure, unspecified (5) Afib Code(s): I48.91 - UNSPECIFIED ATRIAL FIBRILLATION (6) Diabetes Code(s): E11.9 - TYPE 2 DIABETES MELLITUS WITHOUT COMPLICATIONS Qualifiers: Diabetes mellitus type: type 2 Diabetes mellitus complication status: with neurologic complications (7) Lung nodule Code(s): R91.1 - SOLITARY PULMONARY NODULE (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 <Wei Lam - Last Filed: 04/14/18 08:37> - Problems (1) CHF exacerbation Code(s): I50.9 - HEART FAILURE, UNSPECIFIED (2) Afib Code(s): I48.91 - UNSPECIFIED ATRIAL FIBRILLATION (3) COPD (chronic obstructive pulmonary disease) Code(s): J44.9 - CHRONIC OBSTRUCTIVE PULMONARY DISEASE, UNSPECIFIED (4) Abdominal pain Code(s): R10.9 - UNSPECIFIED ABDOMINAL PAIN Qualifiers: Abdominal location: generalized Qualified Code(s): R10.84 - Generalized abdominal pain (5) Acute metabolic encephalopathy Code(s): G93.41 - METABOLIC ENCEPHALOPATHY (6) Acute renal failure Code(s): N17.9 - ACUTE KIDNEY FAILURE, UNSPECIFIED Qualifiers: Acute renal failure type: unspecified Qualified Code(s): N17.9 - Acute kidney failure, unspecified (7) Lung nodule Code(s): R91.1 - SOLITARY PULMONARY NODULE (8) Nausea & vomiting Code(s): R11.2 - NAUSEA WITH VOMITING, UNSPECIFIED Qualifiers: Vomiting type: unspecified Vomiting Intractability: unspecified Qualified Code(s): R11.2 - Nausea with vomiting, unspecified (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 Code(s): E11.49 - TYPE 2 DIABETES W OTH DIABETIC NEUROLOGICAL COMPLICATION (10) Acute diastolic heart failure Code(s): I50.31 - ACUTE DIASTOLIC (CONGESTIVE) HEART FAILURE <Wen Pop - Last Filed: 04/25/18 15:09> Assessment/Plan PATIENT SEEN AND EXAMINED AND I AGREE WITH ABOVE NOTE <Wei Lam - Last Filed: 04/14/18 08:37> -pulmonary recommendation appreciated -cont with Metoprolol 50mg BID -cont tele monitoring -BGM, ISS, Sitagliptan -Cont with pantoprazole and zofran PRN -tylenol for pain management -nystatin powder for B/L groin rash -on AC,SCD, dvt ppx -low Na diet -cont encourage pt to comply with PT sessions -O2 via NC PRN, nebs PRN, keep SpO2 >90% <Wen Pop - Last Filed: 04/25/18 15:09>
[2018-04-13] MEDS ORDERED: BISACODYL 10 MG SUPP.RECT PR PRN (20:14)
[2018-04-13] MEDS: SENNOSIDES 8.6MG TABLET (FP) PO SCH (21:46)
[2018-04-13] MEDS: ATORVASTATIN CA 20 MG TABLET (FP) PO SCH (21:46)
--- NOTE | 2018-04-13 23:23 | PN ---
Progress Note, Physician Chief Complaint: resting no complaint History of Present Illness: dm 2 htn,copd,hypothyroidism,lung nodule on ct chest,1.5cm ,high sugars on bgm scale,off sitagliptin gi symptoms improved - Current Medication List Current Medications: Active Medications Acetaminophen (Tylenol -) 650 mg PO Q6H PRN PRN Reason: FEVER Last Admin: 04/12/18 16:54 Dose: 650 mg Albuterol/Ipratropium (Duoneb -) 1 amp NEB Q6H PRN PRN Reason: SHORTNESS OF BREATH Amino Acids (Prosource No Carb Liquid Pkt) 30 ml PO BID@0800,1730 [facility] Last Admin: 04/13/18 17:05 Dose: 30 ml Apixaban (Eliquis -) 2.5 mg PO BID [facility] Last Admin: 04/13/18 21:46 Dose: 2.5 mg Atorvastatin Calcium (Lipitor -) 20 mg PO [facility] Last Admin: 04/13/18 21:46 Dose: 20 mg Bisacodyl (Dulcolax Suppository -) 10 mg [place] PRN PRN PRN Reason: CONSTIPATION Last Admin: 04/13/18 21:46 Dose: 10 mg Fluticasone Propionate (Flonase -) 2 spray NS DAILY [facility] Last Admin: 04/13/18 10:50 Dose: 2 spray Insulin Aspart (Novolog Vial Sliding Scale -) 1 vial SQ ACHS [facility]; Protocol Last Admin: 04/13/18 21:48 Dose: Not Given Insulin Detemir (Levemir Vial) 15 units SQ AM [facility] Last Admin: 04/13/18 06:45 Dose: 15 units Isosorbide Mononitrate (Imdur -) 30 mg PO DAILY [facility] Last Admin: 04/13/18 10:46 Dose: 30 mg Levothyroxine Sodium (Synthroid -) 100 mcg PO DAILY@0700 [facility] Last Admin: 04/13/18 06:43 Dose: 100 mcg Lidocaine (Lidoderm Patch -) 1 patch TP HS [facility] Last Admin: 04/11/18 21:49 Dose: 1 patch Loratadine (Claritin -) 10 mg PO DAILY [facility] Last Admin: 04/13/18 10:46 Dose: 10 mg Metoclopramide HCl (Reglan -) 5 mg PO TIDAC [facility] Last Admin: 04/13/18 17:05 Dose: 5 mg Metoprolol Tartrate (Lopressor -) 50 mg PO BID [facility] Last Admin: 04/13/18 21:47 Dose: 50 mg Miscellaneous (Lidoderm Patch Removal) 1 each MC DAILY@2200 [facility] Last Admin: 04/13/18 21:45 Dose: 1 each Nystatin (Nystop Powder -) 1 applic TP DAILY [facility] Last Admin: 04/13/18 11:02 Dose: 1 applic Ondansetron HCl (Zofran -) 8 mg PO TID [facility] Last Admin: 04/13/18 21:46 Dose: 8 mg Pantoprazole Sodium (Protonix -) 40 mg PO BID [facility] Last Admin: 04/13/18 21:46 Dose: 40 mg Polyethylene Glycol (Miralax (For Daily Use) -) 17 gm PO DAILY [facility] Last Admin: 04/13/18 11:02 Dose: 17 grams Senna (Senna -) 1 tab PO HS [facility] Last Admin: 04/13/18 21:46 Dose: 1 tab Sodium Chloride ([place] Nasal [place] -) 2 spray NS Q8H PRN PRN Reason: NASAL CONGESTION Sulfacetamide Sodium (Bleph-10 Ophthalmic Solution -) 1 drop OD Q3H [facility] Last Admin: 04/13/18 21:46 Dose: 1 drop - Objective Vital Signs: Vital Signs Temperature 98.4 F 04/13/18 14:28 Pulse Rate 64 04/13/18 14:28 Respiratory Rate 20 04/13/18 10:12 Blood Pressure 100/50 L 04/13/18 14:28 O2 Sat by Pulse Oximetry (%) 94 L 04/13/18 09:00 Constitutional: Yes: Calm Eyes: Yes: EOM Intact HENT: Yes: Normocephalic Neck: Yes: Trachea Midline Cardiovascular: Yes: Regular Rate and Rhythm Respiratory: Yes: CTA Bilaterally Gastrointestinal: Yes: Normal Bowel Sounds ...Rectal Exam: Yes: Deferred Genitourinary: Yes: WNL Musculoskeletal: Yes: Back Pain, Muscle Weakness Extremities: Yes: Delayed Capillary Refill, Erythema Neurological: Yes: Alert, Oriented Psychiatric: Yes: Alert Labs: CBC, BMP 04/11/18 05:30 04/11/18 05:30 INR, PTT INR 1.04 (0.83-1.09) 04/07/18 13:00 Problem List - Problems (1) Abdominal pain Code(s): R10.9 - UNSPECIFIED ABDOMINAL PAIN Qualifiers: Abdominal location: generalized Qualified Code(s): R10.84 - Generalized abdominal pain (2) Acute metabolic encephalopathy Code(s): G93.41 - METABOLIC ENCEPHALOPATHY (3) Bakers cyst Code(s): M71.20 - SYNOVIAL CYST OF POPLITEAL SPACE [PETER], UNSPECIFIED KNEE (4) Bleeding external hemorrhoids Code(s): K64.4 - RESIDUAL HEMORRHOIDAL SKIN TAGS Assessment/Plan Current Active Problems CHF exacerbation (Acute) dm 2 hyperglycemia diabetic gastroparesis chf copd/lung nodule Laboratory Results - last 24 hr 04/13/18 04/13/18 04/13/18 05:39 11:47 17:00 POC Glucometer 181 241 71 04/13/18 21:37 POC Glucometer 148 plan: Current Medications Generic Name Dose Route Start Last Admin Trade Name Freq PRN Reason Stop Dose Admin Acetaminophen 650 mg 04/11/18 16:25 04/12/18 16:54 Tylenol - PO 650 mg Q6H PRN Administration FEVER Albuterol/Ipratropium 1 amp 04/11/18 16:25 Duoneb - NEB Q6H PRN SHORTNESS OF BREATH Amino Acids 30 ml 04/11/18 17:30 04/13/18 17:05 Prosource No Carb Liquid Pkt PO 30 ml BID@0800,1730 [facility] Administration Apixaban 2.5 mg 04/11/18 22:00 04/13/18 21:46 Eliquis - PO 2.5 mg BID [facility] Administration Atorvastatin Calcium 20 mg 04/11/18 22:00 04/13/18 21:46 Lipitor - PO 20 mg HS [facility] Administration Bisacodyl 10 mg 04/13/18 20:14 04/13/18 21:46 Dulcolax Suppository - [place] 10 mg PRN PRN Administration CONSTIPATION Fluticasone Propionate 2 spray 04/12/18 10:00 04/13/18 10:50 Flonase - NS 2 spray DAILY [facility] Administration Insulin Aspart 1 vial 04/11/18 16:30 04/13/18 21:48 Novolog Vial Sliding Scale - SQ Not Given ACHS [facility] Protocol Insulin Detemir 15 units 04/12/18 07:00 04/13/18 06:45 Levemir Vial SQ 15 units AM [facility] Administration Isosorbide Mononitrate 30 mg 04/12/18 10:00 04/13/18 10:46 Imdur - PO 30 mg DAILY [facility] Administration Levothyroxine Sodium 100 mcg 04/12/18 07:00 04/13/18 06:43 Synthroid - PO 100 mcg DAILY@0700 [facility] Administration Lidocaine 1 patch 04/10/18 22:15 04/11/18 21:49 Lidoderm Patch - TP 1 patch HS [facility] Administration Loratadine 10 mg 04/12/18 10:00 04/13/18 10:46 Claritin - PO 10 mg DAILY [facility] Administration Metoclopramide HCl 5 mg 04/12/18 11:00 04/13/18 17:05 Reglan - PO 5 mg TIDAC [facility] Administration Metoprolol Tartrate 50 mg 04/11/18 22:00 04/13/18 21:47 Lopressor - PO 50 mg BID [facility] Administration Miscellaneous 1 each 04/10/18 22:00 04/13/18 21:45 Lidoderm Patch Removal MC 1 each DAILY@2200 [facility] Administration Nystatin 1 applic 04/12/18 10:00 04/13/18 11:02 Nystop Powder - TP 1 applic DAILY [facility] Administration Ondansetron HCl 8 mg 04/13/18 06:00 04/13/18 21:46 Zofran - PO 8 mg TID [facility] Administration Pantoprazole Sodium 40 mg 04/11/18 22:00 04/13/18 21:46 Protonix - PO 40 mg BID [facility] Administration Polyethylene Glycol 17 gm 04/12/18 10:00 04/13/18 11:02 Miralax (For Daily Use) - PO 17 grams DAILY [facility] Administration Senna 1 tab 04/11/18 22:00 04/13/18 21:46 Senna - PO 1 tab HS [facility] Administration Sodium Chloride 2 spray 04/11/18 16:25 [place] Nasal [place] - NS Q8H PRN NASAL CONGESTION Sulfacetamide Sodium 1 drop 04/11/18 19:00 04/13/18 21:46 Bleph-10 Ophthalmic Solution - OD 1 drop Q3H [facility] Administration
[2018-04-14] MEDS: SULFACETAMIDE SODIUM 10% OPHTHALMIC DROPS 15 ML BOTTLE OD SCH ×8 (01:05→22:10)
[2018-04-14] MEDS: ONDANSETRON 4 MG TABLET PO SCH ×3 (06:04→21:55)
[2018-04-14] MEDS: METOCLOPRAMIDE HCL 10 MG TABLET (FP) PO SCH ×3 (06:05→16:46)
[2018-04-14] MEDS: LEVOTHYROXINE NA 100 MCG TABLET (FP) PO SCH (06:05)
[2018-04-14] MEDS: INSULIN SLIDING SCALE (NOVOLOG) 1 VIAL SQ SCH ×5 (06:06→22:02)
[2018-04-14] MEDS: INSULIN (LEVEMIR) 100 UNITS/ML UNITS SQ SCH (06:07)
[2018-04-14] MEDS ORDERED: INSULIN (NOVOLOG) ASPART 100 UNITS/ML 10ML VIAL ONE (06:59)
[2018-04-14 07:40] LABS: HEMATOCRIT 45.7 % (32.4-45.2); HEMOGLOBIN 14.6 GM/dL (10.7-15.3); MEAN CELL VOLUME 93.7 fl (80-96); MEAN PLT VOLUME 10.1 fl (7.5-11.1); PLATELET COUNT 167 K/MM3 (134-434); RBC 4.87 M/mm3 (3.60-5.2); RDW 15.1 % (11.6-15.6); WHITE BLOOD COUNT 10.4 K/mm3 (4.0-10.0)
[2018-04-14 08:17] LABS: ALBUMIN 2.7 g/dl (3.4-5.0); ALK PHOS 54 U/L (45-117); AMYLASE 25 U/L (25-115); ANION GAP 8 MMOL/L (8-16); BILIRUBIN,TOTAL 1.4 mg/dL (0.2-1); BLOOD UREA NITROGEN 13 mg/dL (7-18); CALCIUM 8.5 mg/dL (8.5-10.1); CHLORIDE 102 mmol/L (98-107); CO2 29 mmol/L (21-32); CREATININE 0.7 mg/dL (0.55-1.3); GLUCOSE,RANDOM 274 mg/dL (74-106); LIPASE 56 U/L (73-393); POTASSIUM 3.7 mmol/L (3.5-5.1); SGOT/AST 16 U/L (15-37); SGPT/ALT 14 U/L (13-61); SODIUM 140 mmol/L (136-145); TOT PROT 5.8 g/dl (6.4-8.2)
[2018-04-14] MEDS: AMINO ACIDS/PROTEIN HYDROLYS 30 ML LIQUID.PKT PO SCH ×2 (08:26→16:46)
[2018-04-14] MEDS: METOPROLOL TARTRATE 50 MG TABLET (FP) PO SCH ×2 (10:11→21:55)
[2018-04-14] MEDS: PANTOPRAZOLE 40 MG TABLET (FP) PO SCH ×2 (10:12→21:55)
[2018-04-14] MEDS: ISOSORBIDE MONONITRATE 30 MG TAB.SR.24H (FP) PO SCH (10:12)
[2018-04-14] MEDS: LORATADINE 10 MG TABLET PO SCH (10:12)
[2018-04-14] MEDS: APIXABAN 2.5 MG TABLET PO SCH ×2 (10:12→21:55)
[2018-04-14] MEDS: NYSTATIN POWDER 100,000 UNITS/GM - 15 GM TOPICAL POWDER TP SCH (10:15)
[2018-04-14] MEDS: FLUTICASONE PROP 0.05% 16 GM NASAL SPRAY NS SCH (10:15)
[2018-04-14] MEDS: POLYETHYLENE GLYCOL 3350 119 GM BTL PO SCH (10:21)
[2018-04-14] MEDS: LIDOCAINE 5% TOPICAL PATCH TP SCH ×3 (10:29→21:57)
--- NOTE | 2018-04-14 12:50 | PN ---
Progress Note, Physician - Current Medication List Current Medications: Active Medications Acetaminophen (Tylenol -) 650 mg PO Q6H PRN PRN Reason: FEVER Last Admin: 04/12/18 16:54 Dose: 650 mg Albuterol/Ipratropium (Duoneb -) 1 amp NEB Q6H PRN PRN Reason: SHORTNESS OF BREATH Amino Acids (Prosource No Carb Liquid Pkt) 30 ml PO BID@0800,1730 [facility] Last Admin: 04/14/18 08:26 Dose: 30 ml Apixaban (Eliquis -) 2.5 mg PO BID [facility] Last Admin: 04/14/18 10:12 Dose: 2.5 mg Atorvastatin Calcium (Lipitor -) 20 mg PO HS [facility] Last Admin: 04/13/18 21:46 Dose: 20 mg Bisacodyl (Dulcolax Suppository -) 10 mg NV PRN PRN PRN Reason: CONSTIPATION Last Admin: 04/13/18 21:46 Dose: 10 mg Fluticasone Propionate (Flonase -) 2 spray NS DAILY [facility] Last Admin: 04/14/18 10:15 Dose: 2 spray Insulin Aspart (Novolog Vial Sliding Scale -) 1 vial SQ [facility]; Protocol Last Admin: 04/14/18 12:00 Dose: Not Given Insulin Detemir (Levemir Vial) 15 units SQ AM [facility] Last Admin: 04/14/18 06:07 Dose: 15 units Isosorbide Mononitrate (Imdur -) 30 mg PO DAILY [facility] Last Admin: 04/14/18 10:12 Dose: 30 mg Levothyroxine Sodium (Synthroid -) 100 mcg PO DAILY@0700 [facility] Last Admin: 04/14/18 06:05 Dose: 100 mcg Lidocaine (Lidoderm Patch -) 1 patch TP HS [facility] Last Admin: 04/14/18 10:29 Dose: 1 patch Loratadine (Claritin -) 10 mg PO DAILY [facility] Last Admin: 04/14/18 10:12 Dose: 10 mg Metoclopramide HCl (Reglan -) 5 mg PO TIDAC [facility] Last Admin: 04/14/18 10:12 Dose: 5 mg Metoprolol Tartrate (Lopressor -) 50 mg PO BID [facility] Last Admin: 04/14/18 10:11 Dose: 50 mg Miscellaneous (Lidoderm Patch Removal) 1 each MC DAILY@2200 [facility] Last Admin: 04/13/18 21:45 Dose: 1 each Nystatin (Nystop Powder -) 1 applic TP DAILY [facility] Last Admin: 04/14/18 10:15 Dose: 1 applic Ondansetron HCl (Zofran -) 8 mg PO TID [facility] Last Admin: 04/14/18 06:04 Dose: 8 mg Pantoprazole Sodium (Protonix -) 40 mg PO BID [facility] Last Admin: 04/14/18 10:12 Dose: 40 mg Polyethylene Glycol (Miralax (For Daily Use) -) 17 gm PO DAILY [facility] Last Admin: 04/14/18 10:21 Dose: Not Given Senna (Senna -) 1 tab PO HS [facility] Last Admin: 04/13/18 21:46 Dose: 1 tab Sodium Chloride ([place] Nasal [place] -) 2 spray NS Q8H PRN PRN Reason: NASAL CONGESTION Sulfacetamide Sodium (Bleph-10 Ophthalmic Solution -) 1 drop OD Q3H [facility] Last Admin: 04/14/18 10:20 Dose: 1 drop - Objective Vital Signs: Vital Signs Temperature 98.8 F 04/14/18 09:37 Pulse Rate 75 04/14/18 09:37 Respiratory Rate 18 04/14/18 09:37 Blood Pressure 149/68 04/14/18 09:37 O2 Sat by Pulse Oximetry (%) 95 04/13/18 22:00 Cardiovascular: Yes: S1, S2 Respiratory: Yes: Regular, CTA Bilaterally Gastrointestinal: Yes: Normal Bowel Sounds, Soft. No: Tenderness Labs: CBC, BMP 04/14/18 07:00 04/14/18 07:00 INR, PTT INR 1.04 (0.83-1.09) 04/07/18 13:00 Assessment/Plan - Problems (1) Abdominal pain Assessment/Plan: small bowel series done negative reglan protonix and zofran Code(s): R10.9 - UNSPECIFIED ABDOMINAL PAIN Qualifiers: Abdominal location: generalized Qualified Code(s): R10.84 - Generalized abdominal pain (2) Afib Assessment/Plan: on eliquis and lopressor Code(s): I48.91 - UNSPECIFIED ATRIAL FIBRILLATION (3) Diabetes Assessment/Plan: seen by endocrine on levemir Code(s): E11.9 - TYPE 2 DIABETES MELLITUS WITHOUT COMPLICATIONS Qualifiers: Diabetes mellitus type: type 2 Diabetes mellitus complication status: with neurologic complications
--- NOTE | 2018-04-14 13:21 | DS ---
Physical Examination Vital Signs: Vital Signs Temperature 98.8 F 04/14/18 09:37 Pulse Rate 75 04/14/18 09:37 Respiratory Rate 18 04/14/18 09:37 Blood Pressure 149/68 04/14/18 09:37 O2 Sat by Pulse Oximetry (%) 95 04/13/18 22:00 Labs: CBC, BMP 04/14/18 07:00 04/14/18 07:00 Discharge Summary Reason For Visit: ACUTE ON CHRONIC CHF Current Active Problems CHF exacerbation (Acute) Condition: Stable - Instructions Diet, Activity, Other Instructions: low sodium/ada/low cholesterol Referrals: Tyrell Back MD [Primary Care Provider] - Disposition: HALFWAY FACILITY - Home Medications Comprehensive Discharge Medication List: Ambulatory Orders Atorvastatin Ca [Lipitor] 20 mg PO HS tablet 02/27/18 Polyethylene Glycol 3350 [Miralax 119 gm Btl -] 17 gm PO DAILY bottle 02/27/18 Docusate Sodium [Colace -] 100 mg PO BID capsule 03/25/18 Lidocaine Patch Removal [Lidoderm Patch Removal] 1 each MC DAILY@2200 #30 each 03/25/18 Nystatin Powder [Nystop Powder -] 1 applic TP DAILY #1 bottle 03/25/18 Ondansetron [Zofran Odt -] 4 mg SL Q8H #30 tab.rapdis 03/25/18 Acetaminophen [Tylenol .Regular Strength -] 650 mg PO Q6H PRN tablet 04/03/18 Apixaban [Eliquis -] 2.5 mg PO BID tablet 04/03/18 Isosorbide Mononitrate [Imdur -] 30 mg PO DAILY tab.sr.24h 04/03/18 Levothyroxine [Synthroid -] 100 mcg PO DAILY@0700 #30 tablet 04/03/18 Metoclopramide HCl [Reglan -] 5 mg PO TIDAC tablet 04/03/18 Metoprolol Tartrate [Lopressor -] 50 mg PO BID tablet 04/03/18 Pantoprazole Sodium [Protonix -] 40 mg PO BID #60 tablet.ec 04/03/18 Sennosides [Senna -] 2 tab PO HS tablet 04/03/18 Sitagliptin Phosphate [Januvia -] 50 mg PO DAILY@0700 tablet 04/03/18 Sulfacetamide Sodium 10% [Bleph-10 Ophthalmic Solution -] 1 drop OS Q3H drops 04/03/18 Albuterol 2.5/Ipratropium 0.5 [Duoneb -] 1 amp NEB Q6H amp 04/14/18 Amino Acids/Protein Hydrolys [Prosource No Carb Liquid Pkt] 30 ml PO BID@0800, 1730 packet 04/14/18 Insulin (Levemir) [Levemir Vial] 15 units SQ AM units 04/14/18 Lidocaine Patch Removal [Lidoderm Patch Removal] 1 each MC DAILY@2200 each 03/21 Polyethylene Glycol 3350 [Miralax 119 gm Btl -] 17 gm PO DAILY bottle 04/14/18
[2018-04-14] MEDS: ALBUTEROL SO4 2.5/IPRATROPIUM 0.5 INH SOL 3 ML VIAL.NEB. NEB SCH ×2 (15:55→21:15)
[2018-04-14] MEDS: SENNOSIDES 8.6MG TABLET (FP) PO SCH (21:55)
[2018-04-14] MEDS: ATORVASTATIN CA 20 MG TABLET (FP) PO SCH (21:55)
[2018-04-14] MEDS: LIDOCAINE PATCH REMOVAL MC SCH (22:50)
[2018-04-15] MEDS: SULFACETAMIDE SODIUM 10% OPHTHALMIC DROPS 15 ML BOTTLE OD SCH ×4 (04:10→10:46)
[2018-04-15] MEDS: METOCLOPRAMIDE HCL 10 MG TABLET (FP) PO SCH ×3 (05:58→10:43)
[2018-04-15] MEDS: ONDANSETRON 4 MG TABLET PO SCH (05:59)
[2018-04-15] MEDS: LEVOTHYROXINE NA 100 MCG TABLET (FP) PO SCH (05:59)
[2018-04-15] MEDS: INSULIN (LEVEMIR) 100 UNITS/ML UNITS SQ SCH (06:54)
[2018-04-15] MEDS: INSULIN SLIDING SCALE (NOVOLOG) 1 VIAL SQ SCH (06:55)
[2018-04-15] MEDS ORDERED: INSULIN (NOVOLOG) ASPART 100 UNITS/ML 10ML VIAL ONE (07:03)
[2018-04-15] MEDS: ALBUTEROL SO4 2.5/IPRATROPIUM 0.5 INH SOL 3 ML VIAL.NEB. NEB SCH ×2 (07:49→11:41)
[2018-04-15] MEDS: AMINO ACIDS/PROTEIN HYDROLYS 30 ML LIQUID.PKT PO SCH (08:32)
[2018-04-15 10:36] VITALS: BP 164/90; PULSE 92; TEMP 98.5
[2018-04-15] MEDS ORDERED: PT OWN MED DRAWER 7, Y5N ONE (10:41)
[2018-04-15] MEDS: PANTOPRAZOLE 40 MG TABLET (FP) PO SCH (10:43)
[2018-04-15] MEDS: METOPROLOL TARTRATE 50 MG TABLET (FP) PO SCH (10:43)
[2018-04-15] MEDS: ISOSORBIDE MONONITRATE 30 MG TAB.SR.24H (FP) PO SCH (10:43)
[2018-04-15] MEDS: LORATADINE 10 MG TABLET PO SCH (10:43)
[2018-04-15] MEDS: APIXABAN 2.5 MG TABLET PO SCH (10:43)
[2018-04-15] MEDS: POLYETHYLENE GLYCOL 3350 119 GM BTL PO SCH (10:45)
[2018-04-15] MEDS: NYSTATIN POWDER 100,000 UNITS/GM - 15 GM TOPICAL POWDER TP SCH (10:45)
[2018-04-15] MEDS: FLUTICASONE PROP 0.05% 16 GM NASAL SPRAY NS SCH (10:46)
--- NOTE | 2018-04-15 11:49 | DS ---
Physical Examination Vital Signs: Vital Signs Temperature 98.5 F 04/15/18 09:00 Pulse Rate 92 H 04/15/18 09:00 Respiratory Rate 04/14/18 22:00 Blood Pressure 164/90 04/15/18 09:00 O2 Sat by Pulse Oximetry (%) 95 04/14/18 21:00 Labs: CBC, BMP 04/14/18 07:00 04/14/18 07:00 Discharge Summary Reason For Visit: ACUTE ON CHRONIC CHF Current Active Problems CHF exacerbation (Acute) Condition: Stable - Instructions Diet, Activity, Other Instructions: low sodium/ada/low cholesterol Referrals: Tyrell Back MD [Primary Care Provider] - Disposition: RESIDENTIAL FACILITY - Home Medications Comprehensive Discharge Medication List: Ambulatory Orders Atorvastatin Ca [Lipitor] 20 mg PO HS tablet 02/27/18 Polyethylene Glycol 3350 [Miralax 119 gm Btl -] 17 gm PO DAILY bottle 02/27/18 Docusate Sodium [Colace -] 100 mg PO BID capsule 03/25/18 Lidocaine Patch Removal [Lidoderm Patch Removal] 1 each MC DAILY@2200 #30 each 03/25/18 Nystatin Powder [Nystop Powder -] 1 applic TP DAILY #1 bottle 03/25/18 Ondansetron [Zofran Odt -] 4 mg SL Q8H #30 tab.rapdis 03/25/18 Acetaminophen [Tylenol .Regular Strength -] 650 mg PO Q6H PRN tablet 04/03/18 Apixaban [Eliquis -] 2.5 mg PO BID tablet 04/03/18 Isosorbide Mononitrate [Imdur -] 30 mg PO DAILY tab.sr.24h 04/03/18 Levothyroxine [Synthroid -] 100 mcg PO DAILY@0700 #30 tablet 04/03/18 Metoclopramide HCl [Reglan -] 5 mg PO TIDAC tablet 04/03/18 Metoprolol Tartrate [Lopressor -] 50 mg PO BID tablet 04/03/18 Pantoprazole Sodium [Protonix -] 40 mg PO BID #60 tablet.ec 04/03/18 Sennosides [Senna -] 2 tab PO HS tablet 04/03/18 Sitagliptin Phosphate [Januvia -] 50 mg PO DAILY@0700 tablet 04/03/18 Sulfacetamide Sodium 10% [Bleph-10 Ophthalmic Solution -] 1 drop OS Q3H drops 04/03/18 Albuterol 2.5/Ipratropium 0.5 [Duoneb -] 1 amp NEB Q6H amp 04/14/18 Amino Acids/Protein Hydrolys [Prosource No Carb Liquid Pkt] 30 ml PO BID@0800, 1730 packet 04/14/18 Insulin (Levemir) [Levemir Vial] 15 units SQ AM units 04/14/18 Lidocaine Patch Removal [Lidoderm Patch Removal] 1 each MC DAILY@2200 each 03/21 Polyethylene Glycol 3350 [Miralax 119 gm Btl -] 17 gm PO DAILY bottle 04/14/18
== END 2018-04-15 12:48 | disposition home or self-care (01) | DRG 73 ==
LOC: JER 09:41 → JERBED 14:21 → J4W 22:00 → J6S 04-11 14:52
PROVIDERS: ADMIT Family Medicine; ATTEND Family Medicine
DX: E11.43 Type 2 diabetes mellitus with diabetic autonomic (poly)neuropathy (principal); I50.31 Acute diastolic (congestive) heart failure; J98.11 Atelectasis; E11.40 Type 2 diabetes mellitus with diabetic neuropathy, unspecified; I25.10 Atherosclerotic heart disease of native coronary artery without angina pectoris; E03.9 Hypothyroidism, unspecified; Z79.84 Long term (current) use of oral hypoglycemic drugs; R91.1 Solitary pulmonary nodule; E66.9 Obesity, unspecified; K31.84 Gastroparesis; Z95.5 Presence of coronary angioplasty implant and graft; I48.0 Paroxysmal atrial fibrillation; Z79.01 Long term (current) use of anticoagulants; E11.65 Type 2 diabetes mellitus with hyperglycemia; I11.0 Hypertensive heart disease with heart failure; I50.9 Heart failure, unspecified; K44.9 Diaphragmatic hernia without obstruction or gangrene; K29.60 Other gastritis without bleeding; E86.0 Dehydration; Z79.4 Long term (current) use of insulin; Z68.36 Body mass index [BMI] 36.0-36.9, adult
CPT/HCPCS: 36415; 70450-TC; 71045-TC-FY; 71250-TC; 74250-TC-FY; 80053; 82150; 82550; 82962; 83605; 83690; 83735; 83880; 84443; 84484; 85025; 85027; 85610; 85730; 87040; 93005; 93010; 94640; 97116-GP; 97162-GP; 99285-25; Q0162

== ENCOUNTER 2018-04-16 05:45 | Inpatient (IN) | payer OTHER ==
--- NOTE | 2018-04-16 07:19 | PDOC ---
History of Present Illness - General Chief Complaint: Injury Stated Complaint: FALL Time Seen by Provider: 04/16/18 07:14 - History of Present Illness Initial Comments: 04/16/18 07:21 87 yo F with HTN, DMII, Gastroparesis, CAD, NSTEMI, Paroxysmal A-fib (on Eliquis ), CHF ( EF 65 % 01/2018, on Lasix), lung nodule on CT Chest, hypothyrodism BIBA s/p lightheadedness, and fall. Patient presents following fall this AM, when attempting to stand up and ambulate to bathroom. Fall witness by . Patient lives with and son at home. Endorsed lightheadedness with standing this AM. Denies LOC, but reports falling backward with posterior head trauma, with absent neck and back trauma. Does not recall how long on ground. Able to ambulate following event. Endorses chronic abdominal discomfort, with bloating, flatulence, and nml bowel habits. + increased thirst. Recent admission to [facility], for CHF exacerbation (04/07-04/15/18), diabetic gastroparesis with vomiting. EGD 04/03/18, with sliding hernia. Patient and patient family have declined SNF multiple times. Social work was consulted previous admission d/t fall risk. Patient denies HANSON, palpitations,cough, wheezing, PND, orthopnea, leg pain/ swelling, vision change, N/V, F,C, CP, SOB, urinary complaints, abdominal pain, diarrhea, constipation, BPR, hematuria, weakness, sensory changes. PMHx: as noted above ROS: as noted SHx: Denies Etoh, IVDA. Allergies: Vancomycin GI: Harris Gross Past History - Past Medical History Allergies/Adverse Reactions: Allergies Allergy/AdvReac Type Severity Reaction Status Date / Time vancomycin AdvReac Itching Verified 04/16/18 05:54 Home Medications: Ambulatory Orders Atorvastatin Ca [Lipitor] 20 mg PO HS tablet 02/27/18 Polyethylene Glycol 3350 [Miralax 119 gm Btl -] 17 gm PO DAILY bottle 02/27/18 Docusate Sodium [Colace -] 100 mg PO BID capsule 03/25/18 Lidocaine Patch Removal [Lidoderm Patch Removal] 1 each MC DAILY@2200 #30 each 03/25/18 Nystatin Powder [Nystop Powder -] 1 applic TP DAILY #1 bottle 03/25/18 Ondansetron [Zofran Odt -] 4 mg SL Q8H #30 tab.rapdis 03/25/18 Acetaminophen [Tylenol .Regular Strength -] 650 mg PO Q6H PRN tablet 04/03/18 Apixaban [Eliquis -] 2.5 mg PO BID tablet 04/03/18 Isosorbide Mononitrate [Imdur -] 30 mg PO DAILY tab.sr.24h 04/03/18 Levothyroxine [Synthroid -] 100 mcg PO DAILY@0700 #30 tablet 04/03/18 Metoclopramide HCl [Reglan -] 5 mg PO TIDAC tablet 04/03/18 Metoprolol Tartrate [Lopressor -] 50 mg PO BID tablet 04/03/18 Pantoprazole Sodium [Protonix -] 40 mg PO BID #60 tablet.ec 04/03/18 Sennosides [Senna -] 2 tab PO HS tablet 04/03/18 Sitagliptin Phosphate [Januvia -] 50 mg PO DAILY@0700 tablet 04/03/18 Sulfacetamide Sodium 10% [Bleph-10 Ophthalmic Solution -] 1 drop OS Q3H drops 04/03/18 Albuterol 2.5/Ipratropium 0.5 [Duoneb -] 1 amp NEB Q6H amp 04/14/18 Amino Acids/Protein Hydrolys [Prosource No Carb Liquid Pkt] 30 ml PO BID@0800, 1730 packet 04/14/18 Insulin (Levemir) [Levemir Vial] 15 units SQ AM units 04/14/18 Lidocaine Patch Removal [Lidoderm Patch Removal] 1 each MC DAILY@2200 each 03/21 Polyethylene Glycol 3350 [Miralax 119 gm Btl -] 17 gm PO DAILY bottle 04/14/18 Anemia: No Asthma: Yes Cancer: Yes (SKIN) Cardiac Disorders: Yes (MITRAL VALVE PROLAPSE,AFIB,CAD) CVA: No COPD: Yes CHF: Yes Dementia: Yes (early onset) Diabetes: Yes GI Disorders: Yes Disorders: No HTN: Yes Hypercholesterolemia: Yes Liver Disease: Yes (FATTY LIVER) Seizures: No Thyroid Disease: Yes - Surgical History Abdominal Surgery: Yes Cholecystectomy: Yes - Suicide/Smoking/Psychosocial Hx Smoking Status: Yes Smoking History: Unknown if ever smoked Have you smoked in the past 12 months: No Number of Cigarettes Smoked Daily: 0 If you are a former smoker, when did you quit?: 1985 Cigars Per Day: 0 Hx Alcohol Use: No Drug/Substance Use Hx: No Substance Use Type: None Hx Substance Use Treatment: Yes Review of Systems - Review of Systems Comments:: 04/16/18 07:27 GENERAL/CONSTITUTIONAL: No fever or chills. No weakness. HEAD, EYES, EARS, NOSE AND THROAT: No change in vision. No ear pain or discharge. No sore throat. CARDIOVASCULAR: No chest pain or shortness of breath RESPIRATORY: No cough, wheezing, or hemoptysis. GASTROINTESTINAL: + Abdominal pain. No nausea, vomiting, diarrhea or constipation. GENITOURINARY: No dysuria, frequency, or change in urination. MUSCULOSKELETAL: No joint or muscle swelling or pain. No neck or back pain. SKIN: No rash NEUROLOGIC: + Lightheadedness. No headache, vertigo, loss of consciousness, or change in strength/sensation. ENDOCRINE: +increased thirst. No abnormal weight change HEMATOLOGIC/LYMPHATIC: No anemia, easy bleeding, or history of blood clots. ALLERGIC/IMMUNOLOGIC: No hives or skin allergy. *Physical Exam - Vital Signs Last Vital Signs Temp Pulse Resp BP Pulse Ox 97.7 F 107 H 19 142/89 93 L 04/16/18 05:45 04/16/18 05:45 04/16/18 05:45 04/16/18 05:45 04/16/18 05:45 - Physical Exam Comments: 04/16/18 07:27 GENERAL: Awake, alert, and fully oriented, in no acute distress HEAD: No signs of trauma, normocephalic, atraumatic EYES: PERRLA, EOMI, sclera anicteric, conjunctiva clear ENT: Dry mucous membranes. Auricles normal inspection, hearing grossly normal, nares patent, oropharynx clear without exudates. NECK: Normal ROM, supple, no lymphadenopathy, JVD, or masses LUNGS: No distress, speaks full sentences, clear to auscultation bilaterally HEART: Regular rate and rhythm, normal S1 and S2, no murmurs, rubs or gallops, peripheral pulses normal and equal bilaterally. ABDOMEN: + Diffusely ttp. soft, NDS,, normoactive bowel sounds. No guarding, no rebound. No masses. Neg CVA ttp. EXTREMITIES : Normal inspection, Normal range of motion, no edema. No clubbing or cyanosis. NEUROLOGICAL: Cranial nerves II through XII grossly intact. Normal speech, no focal sensorimotor deficits SKIN: + left forearm superficial epidermal abrasions 2x2 cm. Warm, Dry, normal turgor, no rashes or lesions noted Moderate Sedation - Procedure Monitoring Vital Signs: Procedure Monitoring Vital Signs Temperature 97.7 F 04/16/18 05:45 Pulse Rate 107 H 04/16/18 05:45 Respiratory Rate 04/16/18 05:45 Blood Pressure 142/89 04/16/18 05:45 O2 Sat by Pulse Oximetry (%) 93 L 04/16/18 05:45 ED Treatment Course - LABORATORY CBC & Chemistry Diagram: 04/16/18 08:10 04/16/18 08:10 Medical Decision Making - Medical Decision Making 04/16/18 07:48 87 yo F with HTN, DMII, Gastroparesis, CAD, NSTEMI, A-fib (on Eliquis), lung nodule on CT Chest, hypothyrodism s/p lightheadedness, and fall. P 107, 02 93 RA , vitals otherwise wnl, AF, A&Ox3, GCS 15. CTH r/o hemorrhage, hematoma, skull fracture. No evidence of basilar skull fracture. C-SPINE Neg per NEXUS. Will asses for VBI/TIA, hypo/hyperglycemia ( BS~297), cardiac dysarrythmias, electrolyte abnml, meatbolic and toxic derangements,acid-base disturbances, infection. ED Course: cbc, cmp, cardiac pr., vbg, acetones, ua ekg, cxr CTH EKG: NSR with HR 96, PAC's. Absent acute JESI, STD. QTc 512. Q waves anterior and inferior leads. 04/16/18 09:18 VB.4, 52.9, 27.4, 32.1 WBC: 11.2 04/16/18 09:31 CXR: No acute change 04/16/18 09:32 Trop: 0.06 CMP: Unremarkable 04/16/18 10:41 CTH: No significant interval change 04/12/18. 04/16/18 11:04 Zofran, NS Bilirubin elevated 2.2 RUQ U/S 04/16/18 15:34 Patient with continued vomititng, and inability to tolerate PO intake. Bilious emesis x 3 Patient unable to ambulate. 04/16/18 15:38 Plan to admit for intractable vomitting, lethargy 04/16/18 15:58 Patient admitted to med/surg. Endorsed to Dr. Dodson. *DC/Admit/Observation/Transfer Diagnosis at time of Disposition: Closed head injury Qualifiers: Encounter type: initial encounter Qualified Code(s): S09.90XA - Unspecified injury of head, initial encounter Fall Qualifiers: Encounter type: initial encounter Qualified Code(s): W19.XXXA - Unspecified fall, initial encounter Intractable cyclical vomiting Qualifiers: Nausea presence: unspecified Qualified Code(s): G43.A1 - Cyclical vomiting, intractable - Discharge Dispostion Condition at time of disposition: Stable Decision to Admit order: Yes - Referrals - Patient Instructions Printed Discharge Instructions: How to Prevent Falls, DI for Closed Head Injury Additional Instructions: Please return to the emergency department with any new or worsening symptoms or concerns. Please follow up with your primary care physician within 72 hours. - Post Discharge Activity - Attestations Physician Attestion: 04/16/18 07:28 I attest to the information provided in this note.
[2018-04-16] MEDS ORDERED: BACITRACIN 0.9 GM PACKET ONE (07:50)
--- NOTE | 2018-04-16 08:14 | PDOC ---
Attending Attestation - Resident Resident Name: Twan Charles - ED Attending Attestation I have performed the following: I have examined & evaluated the patient, The case was reviewed & discussed with the resident, I agree w/resident's findings & plan, Exceptions are as noted - HPI HPI: 04/16/18 08:44 87y F hx of htn, DM2, gastroparesis, CAD, NSTEMI, pafib on eliquis, CHF (EF 65% in 01/2018), hypythyroiodism presents sp fall. Pt states she felt a little lightheaded this morning when she stood up and and fell backwards per family members. Kip any LOC. Pt notes some vomiting and epigastric pain consistent with prior. Denies any cp, sob, f/c, diaprehsis, diarrhea, melena, bpr, increased leg swelling. Pt had recent hospitaliation for CHF and vomiting/ gastroparesis with EGD on 04/03/18. - Physicial Exam PE: 04/16/18 08:48 GENERAL: The patient is awake, alert, and fully oriented, Nontoxic - in no acute distress. HEAD: Normocephalic, atraumatic scalp EYES: extraocular movements intact, sclera anicteric, conjunctiva clear. ENT: Normal voice, Dry mucous membranes. NECK: Normal range of motion, supple LUNGS: Breath sounds equal, clear to auscultation bilaterally. No wheezes, no rhonchi, no rales. HEART: Regular rate and rhythm, normal S1 and S2 without murmur, rub or gallop. ABDOMEN: Soft, nontender, normoactive bowel sounds. No guarding, no rebound. No CVA tenderness EXTREMITIES: Normal range of motion, no focal bony tenderness NEUROLOGICAL: No facial assymetry, Normal speech, moving all 4 extremity spontaneously and symmetrically PSYCH: Normal mood, normal affect. SKIN: 2 skin tears on L forewarm - Medical Decision Making 04/16/18 08:49 Possible orthostasis secondary to the patient's vomiting/gastroparesis Check EKG to screen for arrhythmias Labs were evaluated for medical derangements ACS Will reassess 04/16/18 11:03 labs reviewed noted for slightly elevated tbili will obtain GB US pt also vomitied again will give zofran/fluids will erassess 04/16/18 12:03 pt still vomiting will admit for further management Heart Score/ECG Review - ECG Impressions Comment:: 04/16/18 11:06 Twelve-lead EKG was performed and reviewed by me. There is normal sinus rhythm with a normal rate. Rate of 96 PVCs present Abnormal R wave progression QTc interval of 512
[2018-04-16 08:50] LABS: BASO % 0.1 % (0-2.0); EOS % 0.2 % (0-4.5); HEMATOCRIT 42.9 % (32.4-45.2); HEMOGLOBIN 14.6 GM/dL (10.7-15.3); LYMPH % 13.8 % (8-40); MCH 31.4 pg (25.7-33.7); MEAN CELL VOLUME 92.6 fl (80-96); MEAN PLT VOLUME 10.1 fl (7.5-11.1); MONO % 12.1 % (3.8-10.2); NEUT % 73.8 % (42.8-82.8); PLATELET COUNT 190 K/MM3 (134-434); RBC 4.63 M/mm3 (3.60-5.2); RDW 15.7 % (11.6-15.6); WHITE BLOOD COUNT 11.2 K/mm3 (4.0-10.0)
[2018-04-16 08:54] LABS: VENOUS PC02 52.9 mmHg (38-52); VENOUS PH 7.4 (7.32-7.42); VENOUS PO2 27.4 mmHg (28-48)
[2018-04-16 09:05] LABS: INR 1.29 (0.83-1.09); PROTHROMBIN TIME (PATIENT) 15.3 SEC (9.7-13.0)
[2018-04-16 09:26] LABS: ALBUMIN 2.9 g/dl (3.4-5.0); ALK PHOS 69 U/L (45-117); ANION GAP 10 MMOL/L (8-16); BILIRUBIN,TOTAL 2.2 mg/dL (0.2-1); BLOOD UREA NITROGEN 16 mg/dL (7-18); CALCIUM 9.1 mg/dL (8.5-10.1); CHLORIDE 102 mmol/L (98-107); CO2 31 mmol/L (21-32); CREATININE 0.8 mg/dL (0.55-1.3); GLUCOSE,RANDOM 265 mg/dL (74-106); POTASSIUM 3.4 mmol/L (3.5-5.1); SGOT/AST 18 U/L (15-37); SGPT/ALT 13 U/L (13-61); SODIUM 143 mmol/L (136-145); TOT PROT 6.6 g/dl (6.4-8.2)
--- NOTE | 2018-04-16 09:47 | EKG ---
Test Reason : Blood Pressure : / mmHG Vent. Rate : 096 BPM Atrial Rate : 096 BPM P-R Int : 192 ms QRS Dur : 094 ms QT Int : 406 ms P-R-T Axes : 075 -19 -08 degrees QTc Int : 512 ms SINUS RHYTHM WITH PREMATURE ATRIAL COMPLEXES POSSIBLE INFERIOR INFARCT , AGE UNDETERMINED CANNOT RULE OUT ANTERIOR INFARCT (CITED ON OR BEFORE 18-MAR-2018) PROLONGED QT ABNORMAL ECG WHEN COMPARED WITH ECG OF 07-APR-2018 17:20, PREMATURE ATRIAL COMPLEXES ARE NOW PRESENT BORDERLINE CRITERIA FOR INFERIOR INFARCT ARE NOW PRESENT Confirmed by CUCA MARQUEZ, SCOTTY ([id number]) on 04/16/2018 9:47:32 AM Referred By: Confirmed By:SCOTTY THURMAN MD
[2018-04-16] MEDS ORDERED: SODIUM CHLORIDE 0.9% 500 ML INFUS.BAG IV ONE ×2 (11:00→15:34)
[2018-04-16] MEDS ORDERED: ONDANSETRON 4 MG/2 ML VIAL IVPB ONE ×2 (11:02→15:33)
[2018-04-16] MEDS ORDERED: ONDANSETRON 4 MG/2 ML VIAL ONE ×2 (11:09→16:31)
--- NOTE | 2018-04-16 21:11 | HP ---
Admitting History and Physical - Primary Care Physician PCP: Blayne Dodson - Admission History of Present Illness: 87 yo F with HTN, DMII, Gastroparesis, CAD, NSTEMI, Paroxysmal A-fib (on Eliquis ), CHF ( EF 65 % 01/2018, on Lasix), lung nodule on CT Chest, hypothyrodism BIBA s/p lightheadedness, and fall. Patient presents following fall this AM, when attempting to stand up and ambulate to bathroom. Fall witness by . Patient lives with and son at home. Endorsed lightheadedness with standing this AM. Denies LOC, but reports falling backward with posterior head trauma, with absent neck and back trauma. Does not recall how long on ground. Able to ambulate following event. Endorses chronic abdominal discomfort, with bloating, flatulence, and nml bowel habits. + increased thirst. Recent admission to [facility] IV[facility], for CHF exacerbation (04/07-04/15/18), diabetic gastroparesis with vomiting. EGD 04/03/18, with sliding hernia. Patient and patient family have declined SNF multiple times. Social work was consulted previous admission d/t fall risk. - Past Medical History HAND THERAPIST: Yes: Dementia, Vertigo Cardiovascular: Yes: CAD (BMS to pLAD, BILLIE to pRCA, then 2009 cath with BILLIE to OM1 (at that time the LAD and RCA stents were patent, residual 80-90% dist LAD small vessel and severe/diffuse dz small diag; nl EF). 2011 dobut MIBI: no STs ; moderate reversible defect anterior and lateral faith confounded by large breast shadow; nl EF -> pt didn't follow as outpt as planned (was on DATP for a little while). Echo 09/13: nl LVEF, nl RV, nl valve fxn), HTN, Hyperlipdemia Pulmonary: Yes: COPD Gastrointestinal: Yes: Constipation Heme/Onc: Yes: Cancer (thyroid) Endocrine: Yes: Diabetes Mellitus (insulin-dependent for years -> uncontrolled) , Hypothyroidism Dermatology: Yes: Cellulitis (in past, with chronic and intermittent edema) - Smoking History Smoking history: Unknown if ever smoked Have you smoked in the past 12 months: No Aproximately how many cigarettes per day: 0 If you are a former smoker, when did you quit?: 1984 - Alcohol/Substance Use Hx Alcohol Use: No History of Substance Use: reports: None - Social History ADL: Family Assistance History of Recent Travel: No Home Medications - Allergies Allergies/Adverse Reactions: Allergies Allergy/AdvReac Type Severity Reaction Status Date / Time vancomycin AdvReac Itching Verified 04/16/18 05:54 - Home Medications Home Medications: Ambulatory Orders Atorvastatin Ca [Lipitor] 20 mg PO HS tablet 02/27/18 Docusate Sodium [Colace -] 100 mg PO BID capsule 03/25/18 Lidocaine Patch Removal [Lidoderm Patch Removal] 1 each MC DAILY@2200 #30 each 03/25/18 Nystatin Powder [Nystop Powder -] 1 applic TP DAILY #1 bottle 03/25/18 Ondansetron [Zofran Odt -] 4 mg SL Q8H #30 tab.rapdis 03/25/18 Acetaminophen [Tylenol .Regular Strength -] 650 mg PO Q6H PRN tablet 04/03/18 Apixaban [Eliquis -] 2.5 mg PO BID tablet 04/03/18 Isosorbide Mononitrate [Imdur -] 30 mg PO DAILY tab.sr.24h 04/03/18 Metoclopramide HCl [Reglan -] 5 mg PO TIDAC tablet 04/03/18 Metoprolol Tartrate [Lopressor -] 50 mg PO BID tablet 04/03/18 Pantoprazole Sodium [Protonix -] 40 mg PO BID #60 tablet.ec 04/03/18 Sennosides [Senna -] 2 tab PO HS tablet 04/03/18 Sitagliptin Phosphate [Januvia -] 50 mg PO DAILY@0700 tablet 04/03/18 Sulfacetamide Sodium 10% [Bleph-10 Ophthalmic Solution -] 1 drop OS Q3H drops 04/03/18 Albuterol 2.5/Ipratropium 0.5 [Duoneb -] 1 amp NEB Q6H amp 04/14/18 Amino Acids/Protein Hydrolys [Prosource No Carb Liquid Pkt] 30 ml PO BID@0800, 1730 packet 04/14/18 Insulin (Levemir) [Levemir Vial] 15 units SQ AM units 04/14/18 Lidocaine Patch Removal [Lidoderm Patch Removal] 1 each MC DAILY@2200 each 03/21 Polyethylene Glycol 3350 [Miralax 119 gm Btl -] 17 gm PO DAILY bottle 04/14/18 Levothyroxine [Synthroid -] 100 mcg PO DAILY@0700 04/16/18 Family Disease History - Family Disease History Family Disease History: Diabetes: Daughter Physical Examination Vital Signs: Vital Signs Temperature 98.9 F 04/16/18 19:14 Pulse Rate 110 H 04/16/18 19:14 Respiratory Rate 18 04/16/18 19:14 Blood Pressure 173/83 H 04/16/18 19:14 O2 Sat by Pulse Oximetry (%) 98 04/16/18 19:14 Constitutional: Yes: No Distress HENT: Yes: Atraumatic Neck: Yes: Supple Cardiovascular: Yes: Regular Rate and Rhythm Respiratory: Yes: CTA Bilaterally Gastrointestinal: Yes: Normal Bowel Sounds Extremities: Yes: WNL Neurological: Yes: Alert, Oriented Labs: CBC, BMP 04/16/18 08:10 04/16/18 08:10 Problem List - Problems (1) Intractable cyclical vomiting Assessment/Plan: prn zofran reglan ivf Code(s): G43.A1 - CYCLICAL VOMITING, INTRACTABLE Qualifiers: Nausea presence: unspecified Qualified Code(s): G43.A1 - Cyclical vomiting , intractable (2) Closed head injury Code(s): S09.90XA - UNSPECIFIED INJURY OF HEAD, INITIAL ENCOUNTER Qualifiers: Encounter type: initial encounter Qualified Code(s): S09.90XA - Unspecified injury of head, initial encounter (3) Fall Assessment/Plan: pt/ot Code(s): W19.XXXA - UNSPECIFIED FALL, INITIAL ENCOUNTER Qualifiers: Encounter type: initial encounter Qualified Code(s): W19.XXXA - Unspecified fall, initial encounter (4) Afib Assessment/Plan: on meds stable Code(s): I48.91 - UNSPECIFIED ATRIAL FIBRILLATION (5) CAD (coronary artery disease) Code(s): I25.10 - ATHSCL HEART DISEASE OF [place] CORONARY ARTERY W/O ANG PCTRS (6) CHF exacerbation Code(s): I50.9 - HEART FAILURE, UNSPECIFIED (7) COPD (chronic obstructive pulmonary disease) Code(s): J44.9 - CHRONIC OBSTRUCTIVE PULMONARY DISEASE, UNSPECIFIED (8) Controlled diabetes mellitus with diabetic neuropathy Code(s): E11.40 - TYPE 2 DIABETES MELLITUS WITH DIABETIC NEUROPATHY, UNSP (9) Diabetes mellitus, insulin dependent (IDDM), uncontrolled Code(s): E10.65 - TYPE 1 DIABETES MELLITUS WITH HYPERGLYCEMIA (10) Dizziness Code(s): R42 - DIZZINESS AND GIDDINESS (11) Gastroparesis due to DM Code(s): E11.43 - TYPE 2 DIABETES W DIABETIC AUTONOMIC (POLY)NEUROPATHY; K31.84 - GASTROPARESIS (12) Hypothyroid Assessment/Plan: on meds Code(s): E03.9 - HYPOTHYROIDISM, UNSPECIFIED (13) IBS (irritable bowel syndrome) Code(s): K58.9 - IRRITABLE BOWEL SYNDROME WITHOUT DIARRHEA (14) Nausea & vomiting Code(s): R11.2 - NAUSEA WITH VOMITING, UNSPECIFIED Qualifiers: Vomiting type: unspecified Vomiting Intractability: unspecified Qualified Code(s): R11.2 - Nausea with vomiting, unspecified (15) Poorly controlled diabetes mellitus Code(s): E11.65 - TYPE 2 DIABETES MELLITUS WITH HYPERGLYCEMIA Assessment/Plan Laboratory Tests 04/16/18 04/16/18 04/16/18 08:10 08:10 08:10 WBC 11.2 H RBC 4.63 Hgb 14.6 Hct 42.9 MCV 92.6 MCH 31.4 MCHC 34.0 RDW 15.7 H Plt Count 190 MPV 10.1 Absolute Neuts (auto) 8.3 H Neutrophils % 73.8 Lymphocytes % 13.8 D Monocytes % 12.1 H Eosinophils % 0.2 D Basophils % 0.1 Nucleated RBC % 0 PT with INR 15.30 H INR 1.29 H VBG pH POC VBG pCO2 POC VBG pO2 Mixed VBG HCO3 Sodium Potassium Chloride Carbon Dioxide Anion Gap BUN Creatinine Creat Clearance w eGFR Random Glucose Calcium Total Bilirubin AST ALT Alkaline Phosphatase Creatine Kinase 129 Troponin I 0.06 H Total Protein Albumin Lipase 38 L Acetone, Qual 04/16/18 04/16/18 04/16/18 08:10 08:10 08:50 WBC RBC Hgb Hct MCV MCH MCHC RDW Plt Count MPV Absolute Neuts (auto) Neutrophils % Lymphocytes % Monocytes % Eosinophils % Basophils % Nucleated RBC % PT with INR INR VBG pH 7.40 POC VBG pCO2 52.9 H POC VBG pO2 27.4 L Mixed VBG HCO3 32.1 H Sodium 143 Potassium 3.4 L Chloride 102 Carbon Dioxide 31 Anion Gap 10 BUN 16 Creatinine 0.8 Creat Clearance w eGFR > 60 Random Glucose 265 H Calcium 9.1 Total Bilirubin 2.2 H AST 18 ALT 13 Alkaline Phosphatase 69 Creatine Kinase Troponin I Total Protein 6.6 Albumin 2.9 L Lipase Acetone, Qual Negative L Active Medications Generic Name Dose Route Start Last Admin Trade Name Freq PRN Reason Stop Dose Admin Apixaban 2.5 mg 04/16/18 22:00 04/17/18 10:50 Eliquis - PO 2.5 mg BID LEXI Administration Atorvastatin Calcium 20 mg 04/16/18 22:00 04/16/18 22:31 Lipitor - PO 20 mg HS LEXI Administration Potassium Chloride/Sodium Chloride 20 meq in 1,000 mls @ 50 mls/hr 04/16/18 23 :30 04/17/18 01:18 Ns+20 Meq Kcl - IV 50 mls/hr ASDIR LEXI Administration Insulin Detemir 15 units 04/17/18 07:00 04/17/18 06:29 Levemir Vial SQ 15 unit AM LEXI Administration Isosorbide Mononitrate 30 mg 04/17/18 10:00 04/17/18 11:02 Imdur - PO 30 mg DAILY LEXI Administration Levothyroxine Sodium 100 mcg 04/17/18 07:00 04/17/18 06:18 Synthroid - PO 100 mcg DAILY@0700 LEXI Administration Metoclopramide HCl 5 mg 04/17/18 07:00 04/17/18 10:50 Reglan - PO 5 mg TIDAC LEXI Administration Metoprolol Tartrate 50 mg 04/16/18 22:00 04/17/18 11:02 Lopressor - PO 50 mg BID LEXI Administration Ondansetron HCl 4 mg 04/16/18 21:23 04/16/18 22:31 Zofran Injection IVPB 4 mg Q4H PRN Administration NAUSEA AND/OR VOMITING Pantoprazole Sodium 40 mg 04/16/18 22:00 04/17/18 10:50 Protonix - PO 40 mg BID LEXI Administration Polyethylene Glycol 17 gm 04/17/18 10:00 04/17/18 10:51 Miralax (For Daily Use) - PO 17 grams DAILY LEXI Administration Senna 2 tab 04/16/18 22:00 04/16/18 22:31 Senna - PO 2 tab HS LEXI Administration Sitagliptin Phosphate 50 mg 04/17/18 07:00 04/17/18 06:17 Januvia - PO 50 mg DAILY@0700 LEXI Administration Sulfacetamide Sodium 1 drop 04/16/18 21:15 04/17/18 14:28 Bleph-10 Ophthalmic Solution - OS 1 drop Q3H LEXI Administration
[2018-04-16] MEDS ORDERED: ONDANSETRON 4 MG/2 ML VIAL IVPB PRN (21:23)
[2018-04-16] MEDS: ATORVASTATIN CA 20 MG TABLET (FP) PO SCH (22:31)
[2018-04-16] MEDS: PANTOPRAZOLE 40 MG TABLET (FP) PO SCH (22:31)
[2018-04-16] MEDS: APIXABAN 2.5 MG TABLET PO SCH (22:31)
[2018-04-16] MEDS: SENNOSIDES 8.6MG TABLET (FP) PO SCH (22:31)
[2018-04-16] MEDS: METOPROLOL TARTRATE 50 MG TABLET (FP) PO SCH (22:31)
[2018-04-16] MEDS: SULFACETAMIDE SODIUM 10% OPHTHALMIC DROPS 15 ML BOTTLE OS SCH (22:35)
[2018-04-16] MEDS ORDERED: SODIUM CHLORIDE 1,000 ML IV SCH (23:15)
[2018-04-17] MEDS: SODIUM CHLORIDE 0.9%/KCL 20 MEQ/1,000 ML INFUS.BAG IV SCH ×3 (01:18→23:35)
[2018-04-17] MEDS: SULFACETAMIDE SODIUM 10% OPHTHALMIC DROPS 15 ML BOTTLE OS SCH ×8 (01:19→22:45)
[2018-04-17] MEDS ORDERED: INSULIN (LEVEMIR) 100 UNITS/ML UNITS SQ ONE (06:16)
[2018-04-17] MEDS: METOCLOPRAMIDE HCL 10 MG TABLET (FP) PO SCH ×3 (06:17→18:54)
[2018-04-17] MEDS: LEVOTHYROXINE NA 100 MCG TABLET (FP) PO SCH (06:18)
[2018-04-17] MEDS: INSULIN (LEVEMIR) 100 UNITS/ML UNITS SQ SCH (06:29)
[2018-04-17] MEDS ORDERED: sitaGLIPtin PHOSPHATE 50 MG TABLET PO SCH (07:00)
[2018-04-17] MEDS ORDERED: PT OWN MED DRAWER 7, Y5N ONE (08:38)
[2018-04-17 09:19] LABS: BASO % 0.2 % (0-2.0); EOS % 1.1 % (0-4.5); HEMATOCRIT 41.8 % (32.4-45.2); HEMOGLOBIN 14.1 GM/dL (10.7-15.3); LYMPH % 15.5 % (8-40); MCH 31.5 pg (25.7-33.7); MCHC 33.6 g/dl (32.0-36.0); MEAN CELL VOLUME 93.5 fl (80-96); MEAN PLT VOLUME 10.1 fl (7.5-11.1); MONO % 10.9 % (3.8-10.2); NEUT % 72.3 % (42.8-82.8); PLATELET COUNT 172 K/MM3 (134-434); RBC 4.47 M/mm3 (3.60-5.2); RDW 15.7 % (11.6-15.6); WHITE BLOOD COUNT 9.4 K/mm3 (4.0-10.0)
[2018-04-17 09:57] LABS: ALBUMIN 2.4 g/dl (3.4-5.0); ALK PHOS 61 U/L (45-117); ANION GAP 9 MMOL/L (8-16); BILIRUBIN,TOTAL 1.5 mg/dL (0.2-1); BLOOD UREA NITROGEN 13 mg/dL (7-18); CALCIUM 8.2 mg/dL (8.5-10.1); CHLORIDE 108 mmol/L (98-107); CO2 26 mmol/L (21-32); CREATININE 0.6 mg/dL (0.55-1.3); GLUCOSE,RANDOM 223 mg/dL (74-106); POTASSIUM 3.7 mmol/L (3.5-5.1); SGOT/AST 20 U/L (15-37); SGPT/ALT 14 U/L (13-61); SODIUM 144 mmol/L (136-145); TOT PROT 5.5 g/dl (6.4-8.2)
[2018-04-17] MEDS: PANTOPRAZOLE 40 MG TABLET (FP) PO SCH ×2 (10:50→21:05)
[2018-04-17] MEDS: APIXABAN 2.5 MG TABLET PO SCH ×2 (10:50→22:44)
[2018-04-17] MEDS: POLYETHYLENE GLYCOL 3350 119 GM BTL PO SCH (10:51)
[2018-04-17] MEDS: ISOSORBIDE MONONITRATE 30 MG TAB.SR.24H (FP) PO SCH (11:02)
[2018-04-17] MEDS: METOPROLOL TARTRATE 50 MG TABLET (FP) PO SCH ×2 (11:02→21:05)
--- NOTE | 2018-04-17 15:45 | PN ---
Progress Note, Physician History of Present Illness: still has nausea - Current Medication List Current Medications: Active Medications Apixaban (Eliquis -) 2.5 mg PO BID [facility] Last Admin: 04/17/18 10:50 Dose: 2.5 mg Atorvastatin Calcium (Lipitor -) 20 mg PO HS [facility] Last Admin: 04/16/18 22:31 Dose: 20 mg Potassium Chloride/Sodium Chloride (Ns+20 Meq Kcl -) 20 meq in 1,000 mls @ 50 mls/hr IV ASDIR [facility] Last Admin: 04/17/18 01:18 Dose: 50 mls/hr Insulin Detemir (Levemir Vial) 15 units SQ AM [facility] Last Admin: 04/17/18 06:29 Dose: 15 unit Isosorbide Mononitrate (Imdur -) 30 mg PO DAILY [facility] Last Admin: 04/17/18 11:02 Dose: 30 mg Levothyroxine Sodium (Synthroid -) 100 mcg PO DAILY@0700 [facility] Last Admin: 04/17/18 06:18 Dose: 100 mcg Metoclopramide HCl (Reglan -) 5 mg PO TIDAC [facility] Last Admin: 04/17/18 10:50 Dose: 5 mg Metoprolol Tartrate (Lopressor -) 50 mg PO BID [facility] Last Admin: 04/17/18 11:02 Dose: 50 mg Ondansetron HCl (Zofran Injection) 4 mg IVPB Q4H PRN PRN Reason: NAUSEA AND/OR VOMITING Last Admin: 04/16/18 22:31 Dose: 4 mg Pantoprazole Sodium (Protonix -) 40 mg PO BID [facility] Last Admin: 04/17/18 10:50 Dose: 40 mg Polyethylene Glycol (Miralax (For Daily Use) -) 17 gm PO DAILY [facility] Last Admin: 04/17/18 10:51 Dose: 17 grams Senna (Senna -) 2 tab PO HS [facility] Last Admin: 04/16/18 22:31 Dose: 2 tab Sitagliptin Phosphate (Januvia -) 50 mg PO DAILY@0700 [facility] Last Admin: 04/17/18 06:17 Dose: 50 mg Sulfacetamide Sodium (Bleph-10 Ophthalmic Solution -) 1 drop OS Q3H [facility] Last Admin: 04/17/18 14:28 Dose: 1 drop - Objective Vital Signs: Vital Signs Temperature 98.4 F 04/17/18 14:09 Pulse Rate 68 01/15/19 14:09 Respiratory Rate 20 04/17/18 14:09 Blood Pressure 148/78 04/17/18 14:09 O2 Sat by Pulse Oximetry (%) 98 04/17/18 05:15 Constitutional: Yes: Calm HENT: Yes: Atraumatic Cardiovascular: Yes: Regular Rate and Rhythm Respiratory: Yes: CTA Bilaterally Gastrointestinal: Yes: Normal Bowel Sounds Extremities: Yes: WNL Edema: No Neurological: Yes: Alert, Oriented Labs: CBC, BMP 04/17/18 09:00 04/17/18 09:00 INR, PTT INR 1.29 (0.83-1.09) H 04/16/18 08:10 Problem List - Problems (1) Intractable cyclical vomiting Assessment/Plan: prn zofran will do ct abd/pelvis to r/o obstruction Code(s): G43.A1 - CYCLICAL VOMITING, INTRACTABLE Qualifiers: Nausea presence: unspecified Qualified Code(s): G43.A1 - Cyclical vomiting , intractable (2) Closed head injury Code(s): S09.90XA - UNSPECIFIED INJURY OF HEAD, INITIAL ENCOUNTER Qualifiers: Encounter type: initial encounter Qualified Code(s): S09.90XA - Unspecified injury of head, initial encounter (3) Fall Assessment/Plan: pt/ot Code(s): W19.XXXA - UNSPECIFIED FALL, INITIAL ENCOUNTER Qualifiers: Encounter type: initial encounter Qualified Code(s): W19.XXXA - Unspecified fall, initial encounter (4) Afib Assessment/Plan: on meds stable Code(s): I48.91 - UNSPECIFIED ATRIAL FIBRILLATION (5) CAD (coronary artery disease) Code(s): I25.10 - ATHSCL HEART DISEASE OF [place] CORONARY ARTERY W/O ANG PCTRS (6) CHF exacerbation Code(s): I50.9 - HEART FAILURE, UNSPECIFIED (7) COPD (chronic obstructive pulmonary disease) Code(s): J44.9 - CHRONIC OBSTRUCTIVE PULMONARY DISEASE, UNSPECIFIED (8) Diabetes Code(s): E11.9 - TYPE 2 DIABETES MELLITUS WITHOUT COMPLICATIONS Qualifiers: Diabetes mellitus type: type 2 Diabetes mellitus complication status: with neurologic complications (9) Diabetes mellitus with peripheral vascular disease Code(s): E11.51 - TYPE 2 DIABETES W DIABETIC PERIPHERAL ANGIOPATH W/O GANGRENE (10) Dizziness Code(s): R42 - DIZZINESS AND GIDDINESS (11) Gastroparesis due to DM Code(s): E11.43 - TYPE 2 DIABETES W DIABETIC AUTONOMIC (POLY)NEUROPATHY; K31.84 - GASTROPARESIS (12) Hypothyroid Code(s): E03.9 - HYPOTHYROIDISM, UNSPECIFIED (13) IBS (irritable bowel syndrome) Code(s): K58.9 - IRRITABLE BOWEL SYNDROME WITHOUT DIARRHEA (14) Nausea & vomiting Code(s): R11.2 - NAUSEA WITH VOMITING, UNSPECIFIED Qualifiers: Vomiting type: unspecified Vomiting Intractability: non-intractable Qualified Code(s): R11.2 - Nausea with vomiting, unspecified Assessment/Plan DR PRUITT IS PMD HE WILL TAKEOVER FROM TOMORROW
[2018-04-17 19:56] LABS: URINE APPEARANCE SLCLOUDY; URINE BILIRUBIN NEGATIVE (<2.0 mg/dL); URINE COLOR AMBER; URINE GLUCOSE (UA) NEGATIVE (NEGATIVE); URINE KETONE TRACE (NEGATIVE); URINE LEUK ESTERASE TRACE (NEGATIVE); URINE NITRITE NEGATIVE (NEGATIVE); URINE PROTEIN NEGATIVE (NEGATIVE); URINE UROBILINOGEN 4.0 E.U/dl mg/dL (0.2-1.0)
[2018-04-17 20:10] LABS: EPI CELLS FEW /HPF (FEW); URINE BACTERIA RARE /hpf (NONE SEEN); URINE MUCUS RARE
[2018-04-17] MEDS: SENNOSIDES 8.6MG TABLET (FP) PO SCH (21:04)
[2018-04-17] MEDS: ATORVASTATIN CA 20 MG TABLET (FP) PO SCH (21:05)
[2018-04-18] MEDS: SULFACETAMIDE SODIUM 10% OPHTHALMIC DROPS 15 ML BOTTLE OS SCH ×8 (01:50→23:15)
[2018-04-18] MEDS: INSULIN (LEVEMIR) 100 UNITS/ML UNITS SQ SCH (06:54)
[2018-04-18] MEDS: METOCLOPRAMIDE HCL 10 MG TABLET (FP) PO SCH ×3 (06:55→18:32)
[2018-04-18] MEDS: LEVOTHYROXINE NA 100 MCG TABLET (FP) PO SCH (06:55)
[2018-04-18] MEDS: PANTOPRAZOLE 40 MG TABLET (FP) PO SCH ×2 (11:28→22:02)
[2018-04-18] MEDS: POLYETHYLENE GLYCOL 3350 119 GM BTL PO SCH (11:29)
[2018-04-18] MEDS: ISOSORBIDE MONONITRATE 30 MG TAB.SR.24H (FP) PO SCH (11:29)
[2018-04-18] MEDS: APIXABAN 2.5 MG TABLET PO SCH ×2 (11:29→22:02)
[2018-04-18] MEDS: METOPROLOL TARTRATE 50 MG TABLET (FP) PO SCH ×2 (11:29→22:02)
--- NOTE | 2018-04-18 13:55 | PN ---
Progress Note, Physician Chief Complaint: S/p fall History of Present Illness: Previous notes and events reviewed awake and alert NAD Patient states feeling depressed but unable to explain as to why reports of vomiting after eating last night no complaints of chest pain or SOB - Current Medication List Current Medications: Active Medications Apixaban (Eliquis -) 2.5 mg PO BID [facility] Last Admin: 04/18/18 11:29 Dose: 2.5 mg Atorvastatin Calcium (Lipitor -) 20 mg PO HS [facility] Last Admin: 04/17/18 21:05 Dose: 20 mg Potassium Chloride/Sodium Chloride (Ns+20 Meq Kcl -) 20 meq in 1,000 mls @ 50 mls/hr IV ASDIR [facility] Last Admin: 04/17/18 23:35 Dose: Not Given Insulin Detemir (Levemir Vial) 15 units SQ AM [facility] Last Admin: 04/18/18 06:54 Dose: 15 unit Isosorbide Mononitrate (Imdur -) 30 mg PO DAILY [facility] Last Admin: 04/18/18 11:29 Dose: 30 mg Levothyroxine Sodium (Synthroid -) 100 mcg PO DAILY@0700 [facility] Last Admin: 04/18/18 06:55 Dose: 100 mcg Metoclopramide HCl (Reglan -) 5 mg PO TIDAC [facility] Last Admin: 04/18/18 11:32 Dose: 5 mg Metoprolol Tartrate (Lopressor -) 50 mg PO BID [facility] Last Admin: 04/18/18 11:29 Dose: 50 mg Ondansetron HCl (Zofran Injection) 4 mg IVPB Q4H PRN PRN Reason: NAUSEA AND/OR VOMITING Last Admin: 04/16/18 22:31 Dose: 4 mg Pantoprazole Sodium (Protonix -) 40 mg PO BID [facility] Last Admin: 04/18/18 11:28 Dose: 40 mg Polyethylene Glycol (Miralax (For Daily Use) -) 17 gm PO DAILY [facility] Last Admin: 04/18/18 11:29 Dose: 17 grams Senna (Senna -) 2 tab PO HS [facility] Last Admin: 04/17/18 21:04 Dose: 2 tab Sulfacetamide Sodium (Bleph-10 Ophthalmic Solution -) 1 drop OS Q3H [facility] Last Admin: 04/18/18 11:28 Dose: Not Given - Objective Vital Signs: Vital Signs Temperature 98.7 F 04/18/18 11:26 Pulse Rate 64 04/18/18 11:26 Respiratory Rate 18 04/18/18 11:26 Blood Pressure 154/48 L 04/18/18 11:26 O2 Sat by Pulse Oximetry (%) 95 04/18/18 05:00 Constitutional: Yes: Calm, Mild Distress Eyes: Yes: Conjunctiva Clear HENT: Yes: Atraumatic Neck: Yes: Supple Cardiovascular: Yes: Regular Rate and Rhythm Respiratory: Yes: Regular, CTA Bilaterally Gastrointestinal: Yes: Normal Bowel Sounds, Soft, Abdomen, Obese Genitourinary: Yes: Incontinence Musculoskeletal: Yes: Muscle Weakness Extremities: Yes: WNL Edema: No Integumentary: Yes: WNL Neurological: Yes: Alert, Pre-Existing Deficit Psychiatric: Yes: Alert Labs: CBC, BMP 04/17/18 09:00 04/17/18 09:00 INR, PTT INR 1.29 (0.83-1.09) H 04/16/18 08:10 <Wen Pop - Last Filed: 04/18/18 13:36> - Current Medication List Current Medications: Active Medications Apixaban (Eliquis -) 2.5 mg PO BID [facility] Last Admin: 04/18/18 11:29 Dose: 2.5 mg Atorvastatin Calcium (Lipitor -) 20 mg PO HS [facility] Last Admin: 04/17/18 21:05 Dose: 20 mg Potassium Chloride/Sodium Chloride (Ns+20 Meq Kcl -) 20 meq in 1,000 mls @ 50 mls/hr IV ASDIR [facility] Last Admin: 04/17/18 23:35 Dose: Not Given Insulin Detemir (Levemir Vial) 15 units SQ AM [facility] Last Admin: 04/18/18 06:54 Dose: 15 unit Isosorbide Mononitrate (Imdur -) 30 mg PO DAILY [facility] Last Admin: 04/18/18 11:29 Dose: 30 mg Levothyroxine Sodium (Synthroid -) 100 mcg PO DAILY@0700 [facility] Last Admin: 04/18/18 06:55 Dose: 100 mcg Metoclopramide HCl (Reglan -) 5 mg PO TIDAC [facility] Last Admin: 04/18/18 11:32 Dose: 5 mg Metoprolol Tartrate (Lopressor -) 50 mg PO BID [facility] Last Admin: 04/18/18 11:29 Dose: 50 mg Ondansetron HCl (Zofran Injection) 4 mg IVPB Q4H PRN PRN Reason: NAUSEA AND/OR VOMITING Last Admin: 04/16/18 22:31 Dose: 4 mg Pantoprazole Sodium (Protonix -) 40 mg PO BID [facility] Last Admin: 04/18/18 11:28 Dose: 40 mg Polyethylene Glycol (Miralax (For Daily Use) -) 17 gm PO DAILY [facility] Last Admin: 04/18/18 11:29 Dose: 17 grams Senna (Senna -) 2 tab PO HS [facility] Last Admin: 04/17/18 21:04 Dose: 2 tab Sulfacetamide Sodium (Bleph-10 Ophthalmic Solution -) 1 drop OS Q3H [facility] Last Admin: 04/18/18 11:28 Dose: Not Given - Objective Vital Signs: Vital Signs Temperature 98.0 F 04/18/18 14:47 Pulse Rate 68 04/18/18 14:47 Respiratory Rate 18 04/18/18 14:47 Blood Pressure 116/47 L 04/18/18 14:47 O2 Sat by Pulse Oximetry (%) 95 04/18/18 13:00 Labs: CBC, BMP 04/17/18 09:00 04/17/18 09:00 INR, PTT INR 1.29 (0.83-1.09) H 04/16/18 08:10 <Wei Lam - Last Filed: 04/18/18 16:38> Problem List - Problems (1) Closed head injury Code(s): S09.90XA - UNSPECIFIED INJURY OF HEAD, INITIAL ENCOUNTER Qualifiers: Encounter type: initial encounter Qualified Code(s): S09.90XA - Unspecified injury of head, initial encounter (2) Fall Code(s): W19.XXXA - UNSPECIFIED FALL, INITIAL ENCOUNTER Qualifiers: Encounter type: initial encounter Qualified Code(s): W19.XXXA - Unspecified fall, initial encounter (3) Intractable cyclical vomiting Code(s): G43.A1 - CYCLICAL VOMITING, INTRACTABLE Qualifiers: Nausea presence: unspecified Qualified Code(s): G43.A1 - Cyclical vomiting , intractable (4) Afib Code(s): I48.91 - UNSPECIFIED ATRIAL FIBRILLATION (5) CAD (coronary artery disease) Code(s): I25.10 - ATHSCL HEART DISEASE OF [place] CORONARY ARTERY W/O ANG PCTRS (6) COPD (chronic obstructive pulmonary disease) Code(s): J44.9 - CHRONIC OBSTRUCTIVE PULMONARY DISEASE, UNSPECIFIED (7) Type 2 diabetes mellitus with other circulatory complications Code(s): E11.59 - TYPE 2 DIABETES MELLITUS WITH OTH CIRCULATORY COMPLICATIONS <Wen Pop - Last Filed: 04/18/18 13:36> Assessment/Plan -cardiology consult -troponin mildly elev, will repeat and monitor -cont apixiban -cont metoprolol and isosorbide mononitrate -pantoprazole BID, zofran and reglan PRN for vomiting -psychiatry consult for depression -BGM ACHS, levemir -diabetic/low sodium diet -dvt ppx -fall precaution -PT <Wen Pop - Last Filed: 04/18/18 13:36> PATIENT SEEN AND EXAMINED AND I AGREE WITH THE ABOVE NOTE <Wei Lam - Last Filed: 04/18/18 16:38>
--- NOTE | 2018-04-18 15:27 | CON.CARD ---
Consult Consult Specialty:: Cardiology - History of Present Illness Chief Complaint: Found on floor. No LOC History of Present Illness: This is an 87 year old female with HTN, DM, Paroxysmal A-fib (on Eliquis), dCHF , lung nodule on CT Chest. She was admitted now with a fall witnessed by her . He was clear in that she did not have LOC. However, she does get lightheaded and was attempting to ambulate to the bathroom. She patient has dementia and the history was provided by her son. 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 2011 dobut MIBI: no STs ; moderate reversible defect anterior and lateral faith confounded by large breast shadow; nl EF -> pt didn't follow as outpt as planned (was on DATP for a little while). Echo 09/13: nl LVEF, nl RV, nl valve fxn), HTN, Hyperlipdemia Pulmonary: Yes: COPD Gastrointestinal: Yes: Constipation Endocrine: Yes: Diabetes Mellitus (insulin-dependent for years -> uncontrolled) , Hypothyroidism Dermatology: Yes: Cellulitis (in past, with chronic and intermittent edema) - Alcohol/Substance Use Hx Alcohol Use: No History of Substance Use: reports: None - Smoking History Smoking history: Unknown if ever smoked Have you smoked in the past 12 months: No Aproximately how many cigarettes per day: 0 If you are a former smoker, when did you quit?: 1984 - Social History Usual Living Arrangement: With Spouse (who is on HD) ADL: Family Assistance History of Recent Travel: No Home Medications - Allergies Allergies/Adverse Reactions: Allergies Allergy/AdvReac Type Severity Reaction Status Date / Time vancomycin AdvReac Itching Verified 04/16/18 05:54 - Home Medications Home Medications: Ambulatory Orders Atorvastatin Ca [Lipitor] 20 mg PO HS tablet 02/27/18 Docusate Sodium [Colace -] 100 mg PO BID capsule 03/25/18 Lidocaine Patch Removal [Lidoderm Patch Removal] 1 each MC DAILY@2200 #30 each 03/25/18 Nystatin Powder [Nystop Powder -] 1 applic TP DAILY #1 bottle 03/25/18 Ondansetron [Zofran Odt -] 4 mg SL Q8H #30 tab.rapdis 03/25/18 Acetaminophen [Tylenol .Regular Strength -] 650 mg PO Q6H PRN tablet 04/03/18 Apixaban [Eliquis -] 2.5 mg PO BID tablet 04/03/18 Isosorbide Mononitrate [Imdur -] 30 mg PO DAILY tab.sr.24h 04/03/18 Metoclopramide HCl [Reglan -] 5 mg PO TIDAC tablet 04/03/18 Metoprolol Tartrate [Lopressor -] 50 mg PO BID tablet 04/03/18 Pantoprazole Sodium [Protonix -] 40 mg PO BID #60 tablet.ec 04/03/18 Sennosides [Senna -] 2 tab PO HS tablet 04/03/18 Sitagliptin Phosphate [Januvia -] 50 mg PO DAILY@0700 tablet 04/03/18 Sulfacetamide Sodium 10% [Bleph-10 Ophthalmic Solution -] 1 drop OS Q3H drops 04/03/18 Albuterol 2.5/Ipratropium 0.5 [Duoneb -] 1 amp NEB Q6H amp 04/14/18 Amino Acids/Protein Hydrolys [Prosource No Carb Liquid Pkt] 30 ml PO BID@0800, 1730 packet 04/14/18 Insulin (Levemir) [Levemir Vial] 15 units SQ AM units 04/14/18 Lidocaine Patch Removal [Lidoderm Patch Removal] 1 each MC DAILY@2200 each 03/21 Polyethylene Glycol 3350 [Miralax 119 gm Btl -] 17 gm PO DAILY bottle 04/14/18 Levothyroxine [Synthroid -] 100 mcg PO DAILY@0700 04/16/18 Family Disease History - Family Disease History Family Disease History: Diabetes: Daughter Vital Signs: Vital Signs Temperature 98.0 F 04/18/18 14:47 Pulse Rate 68 04/18/18 14:47 Respiratory Rate 18 04/18/18 14:47 Blood Pressure 116/47 L 04/18/18 14:47 O2 Sat by Pulse Oximetry (%) 95 04/18/18 13:00 Constitutional: Yes: No Distress Eyes: Yes: WNL HENT: Yes: WNL Neck: Yes: WNL Respiratory: Yes: CTA Bilaterally Gastrointestinal: Yes: Soft Cardiovascular: Yes: Regular Rate and Rhythm (NL SI S2 1/6 [place]) Extremities: Yes: WNL Edema: LLE: Trace, RLE: Trace Neurological: Yes: Confusion, Other - Other Data Labs, Other Data: CBC, BMP 04/17/18 09:00 04/17/18 09:00 INR, PTT INR 1.29 (0.83-1.09) H 04/16/18 08:10 Assessment/Plan 87 year old female with HTN, DM, Paroxysmal A-fib (on Eliquis), dCHF, lung nodule on CT Chest. She was admitted now with a fall witnessed by her . He was clear in that she did not have LOC. However, she does get lightheaded and was attempting to ambulate to the bathroom. She patient has dementia and the history was provided by her son. Fall Doubt syncope based on the son's history. Patient has difficulty ambulating and this may have been a mechanical fall Would avoid over treating BP Continue metoprolol for now Trop 0.06, continue to trend.
[2018-04-18] MEDS ORDERED: PT OWN MED DRAWER 7, Y5N ONE (15:51)
[2018-04-18] MEDS: SENNOSIDES 8.6MG TABLET (FP) PO SCH (22:02)
[2018-04-18] MEDS: ATORVASTATIN CA 20 MG TABLET (FP) PO SCH (22:02)
[2018-04-18] MEDS: ACETAMINOPHEN 325 MG TABLET (FP) PO PRN (22:09)
[2018-04-19] MEDS: SULFACETAMIDE SODIUM 10% OPHTHALMIC DROPS 15 ML BOTTLE OS SCH ×8 (01:25→23:09)
[2018-04-19] MEDS: ACETAMINOPHEN 325 MG TABLET (FP) PO PRN ×2 (04:43→13:20)
[2018-04-19] MEDS: INSULIN (LEVEMIR) 100 UNITS/ML UNITS SQ SCH (06:20)
[2018-04-19] MEDS: METOCLOPRAMIDE HCL 10 MG TABLET (FP) PO SCH ×2 (06:22→23:09)
[2018-04-19] MEDS: LEVOTHYROXINE NA 100 MCG TABLET (FP) PO SCH (06:22)
[2018-04-19] MEDS: SODIUM CHLORIDE 0.9%/KCL 20 MEQ/1,000 ML INFUS.BAG IV SCH (06:26)
[2018-04-19 08:04] LABS: HEMATOCRIT 37.2 % (32.4-45.2); HEMOGLOBIN 12.4 GM/dL (10.7-15.3); MCH 31.6 pg (25.7-33.7); MCHC 33.5 g/dl (32.0-36.0); MEAN CELL VOLUME 94.3 fl (80-96); MEAN PLT VOLUME 9.8 fl (7.5-11.1); PLATELET COUNT 164 K/MM3 (134-434); RBC 3.94 M/mm3 (3.60-5.2); RDW 14.6 % (11.6-15.6)
--- NOTE | 2018-04-19 09:46 | CON.PSY ---
Psychiatry Consult Chief Complaint: Patient seen for Psych consult, reports of ? non compliance?? Symptoms: reports: Anhedonia - Previous Psychiatric Treatment Outpatient: None Inpatient: None - Previous Substance Abuse Treatment Outpatient: None Inpatient: None - Current Medications Current Medications: Active Medications Acetaminophen (Tylenol -) 650 mg PO Q6H PRN PRN Reason: PAIN LEVEL 1-5 Last Admin: 04/19/18 04:43 Dose: 650 mg Apixaban (Eliquis -) 2.5 mg PO BID [facility] Last Admin: 04/18/18 22:02 Dose: 2.5 mg Atorvastatin Calcium (Lipitor -) 20 mg PO HS [facility] Last Admin: 04/18/18 22:02 Dose: 20 mg Insulin Detemir (Levemir Vial) 15 units SQ AM [facility] Last Admin: 04/19/18 06:20 Dose: 15 unit Isosorbide Mononitrate (Imdur -) 30 mg PO DAILY [facility] Last Admin: 04/18/18 11:29 Dose: 30 mg Levothyroxine Sodium (Synthroid -) 100 mcg PO DAILY@0700 [facility] Last Admin: 04/19/18 06:22 Dose: 100 mcg Metoclopramide HCl (Reglan -) 5 mg PO TIDAC [facility] Last Admin: 04/19/18 06:22 Dose: 5 mg Metoprolol Tartrate (Lopressor -) 50 mg PO BID [facility] Last Admin: 04/18/18 22:02 Dose: 50 mg Ondansetron HCl (Zofran Injection) 4 mg IVPB Q4H PRN PRN Reason: NAUSEA AND/OR VOMITING Last Admin: 04/16/18 22:31 Dose: 4 mg Pantoprazole Sodium (Protonix -) 40 mg PO BID [facility] Last Admin: 04/18/18 22:02 Dose: 40 mg Polyethylene Glycol (Miralax (For Daily Use) -) 17 gm PO DAILY [facility] Last Admin: 04/18/18 11:29 Dose: 17 grams Senna (Senna -) 2 tab PO HS [facility] Last Admin: 04/18/18 22:02 Dose: 2 tab Sulfacetamide Sodium (Bleph-10 Ophthalmic Solution -) 1 drop OS Q3H [facility] Last Admin: 04/19/18 06:19 Dose: Not Given - Allergies Allergies: Allergies Allergy/AdvReac Type Severity Reaction Status Date / Time vancomycin AdvReac Itching Verified 04/16/18 05:54 - Current Living Status Usual Living Arrangement: With Significant Other - Current Mental Status Evaluation Appearance: Disheveled Attitude: Guarded - Affect Affect: Constrictive Appropriateness: Appropriate to Content - Mood Mood: Depressed - Speech/Language Expressive: Coherent - Psychomotor Activity Psychomotor Activity: Slowed - Thought Process Thought Process: Intact - Thought Content Hallucinations: Absent Delusions: Absent - Self Perception Self Perception: No Impairment - Cognition Attention: Alert Orientation: Time Memory, Immediate Recall: Intact Memory, Short Term: 2/3 Memory, Remote: Impaired - Concentration Serial Sevens Intact: No Simple Calculations Intact: Yes - Abstraction Proverb Interpretation: Intact Judgement: Minimally Impaired - Insight Insight: Intact - Impulse Control Impulse Control: Minimally Impaired - Suicidal Ideation Suicidal Ideation: No - Homicidal Ideation Homicidal Ideation: No Assessment/Plan 1) Lexapro 5mg po od for depressed mood.
[2018-04-19 09:54] LABS: ALBUMIN 2.1 g/dl (3.4-5.0); ANION GAP 11 MMOL/L (8-16); BILIRUBIN,TOTAL 1.6 mg/dL (0.2-1); BLOOD UREA NITROGEN 11 mg/dL (7-18); CALCIUM 7.9 mg/dL (8.5-10.1); CHLORIDE 105 mmol/L (98-107); CO2 28 mmol/L (21-32); CREATININE 0.7 mg/dL (0.55-1.3); GLUCOSE,RANDOM 113 mg/dL (74-106); POTASSIUM 3.4 mmol/L (3.5-5.1); SGOT/AST 19 U/L (15-37); SGPT/ALT 13 U/L (13-61); SODIUM 144 mmol/L (136-145); TOT PROT 4.6 g/dl (6.4-8.2)
[2018-04-19 09:57] LABS: ALK PHOS 51 U/L (45-117)
[2018-04-19] MEDS: APIXABAN 2.5 MG TABLET PO SCH ×2 (10:04→23:09)
[2018-04-19] MEDS: METOPROLOL TARTRATE 50 MG TABLET (FP) PO SCH ×2 (10:04→23:08)
[2018-04-19] MEDS: POLYETHYLENE GLYCOL 3350 119 GM BTL PO SCH (10:04)
[2018-04-19] MEDS: PANTOPRAZOLE 40 MG TABLET (FP) PO SCH ×2 (10:04→23:08)
[2018-04-19] MEDS: ISOSORBIDE MONONITRATE 30 MG TAB.SR.24H (FP) PO SCH (10:04)
[2018-04-19] MEDS: ESCITALOPRAM OXALATE 10 MG TABLET (FP) PO SCH (10:12)
--- NOTE | 2018-04-19 10:28 | PN ---
Progress Note, Physician - Current Medication List Current Medications: Active Medications Acetaminophen (Tylenol -) 650 mg PO Q6H PRN PRN Reason: PAIN LEVEL 1-5 Last Admin: 04/20/18 15:44 Dose: 650 mg Apixaban (Eliquis -) 2.5 mg PO BID [facility] Last Admin: 04/20/18 09:21 Dose: 2.5 mg Atorvastatin Calcium (Lipitor -) 20 mg PO HS [facility] Last Admin: 04/19/18 23:08 Dose: 20 mg Escitalopram Oxalate (Lexapro -) 5 mg PO DAILY [facility] Last Admin: 04/20/18 09:21 Dose: 5 mg Insulin Detemir (Levemir Vial) 15 units SQ AM [facility] Last Admin: 04/20/18 06:27 Dose: 15 unit Isosorbide Mononitrate (Imdur -) 30 mg PO DAILY [facility] Last Admin: 04/20/18 09:24 Dose: 30 mg Levothyroxine Sodium (Synthroid -) 100 mcg PO DAILY@0700 [facility] Last Admin: 04/20/18 06:27 Dose: 100 mcg Metoclopramide HCl (Reglan -) 10 mg PO TIDAC [facility] Last Admin: 04/20/18 15:44 Dose: 10 mg Metoprolol Tartrate (Lopressor -) 50 mg PO BID [facility] Last Admin: 04/20/18 09:21 Dose: 50 mg Ondansetron HCl (Zofran -) 4 mg PO Q8H PRN PRN Reason: NAUSEA AND/OR VOMITING Pantoprazole Sodium (Protonix -) 40 mg PO BID [facility] Last Admin: 04/20/18 09:21 Dose: 40 mg Polyethylene Glycol (Miralax (For Daily Use) -) 17 gm PO DAILY [facility] Last Admin: 04/20/18 09:21 Dose: 17 grams Senna (Senna -) 2 tab PO HS [facility] Last Admin: 04/19/18 23:08 Dose: 2 tab Sulfacetamide Sodium (Bleph-10 Ophthalmic Solution -) 1 drop OS Q3H [facility] Last Admin: 04/20/18 17:20 Dose: Not Given - Objective Vital Signs: Vital Signs Temperature 98.3 F 04/20/18 18:57 Pulse Rate 58 L 04/20/18 18:57 Respiratory Rate 18 04/20/18 19:57 Blood Pressure 145/70 01/18/19 18:57 O2 Sat by Pulse Oximetry (%) 95 04/20/18 19:57 Labs: CBC, BMP 04/20/18 08:45 04/20/18 08:45 INR, PTT INR 1.29 (0.83-1.09) H 04/16/18 08:10 <Wei Lam - Last Filed: 04/20/18 21:12> Chief Complaint: S/p fall History of Present Illness: Previous notes and events reviewed awake and alert NAD Reports of vomiting during night, no episodes of vomiting this AM no complaints of chest pain or SOB - Current Medication List Current Medications: Active Medications Acetaminophen (Tylenol -) 650 mg PO Q6H PRN PRN Reason: PAIN LEVEL 1-5 Last Admin: 04/19/18 04:43 Dose: 650 mg Apixaban (Eliquis -) 2.5 mg PO BID [facility] Last Admin: 04/19/18 10:04 Dose: 2.5 mg Atorvastatin Calcium (Lipitor -) 20 mg PO HS [facility] Last Admin: 04/18/18 22:02 Dose: 20 mg Escitalopram Oxalate (Lexapro -) 5 mg PO DAILY [facility] Last Admin: 04/19/18 10:12 Dose: 5 mg Insulin Detemir (Levemir Vial) 15 units SQ AM [facility] Last Admin: 04/19/18 06:20 Dose: 15 unit Isosorbide Mononitrate (Imdur -) 30 mg PO DAILY [facility] Last Admin: 04/19/18 10:04 Dose: 30 mg Levothyroxine Sodium (Synthroid -) 100 mcg PO DAILY@0700 [facility] Last Admin: 04/19/18 06:22 Dose: 100 mcg Metoclopramide HCl (Reglan Injection -) 10 mg IVPB TIDAC [facility] Stop: 04/22/18 10:59 Metoprolol Tartrate (Lopressor -) 50 mg PO BID [facility] Last Admin: 04/19/18 10:04 Dose: 50 mg Ondansetron HCl (Zofran Injection) 4 mg IVPB Q4H PRN PRN Reason: NAUSEA AND/OR VOMITING Last Admin: 04/16/18 22:31 Dose: 4 mg Pantoprazole Sodium (Protonix -) 40 mg PO BID [facility] Last Admin: 04/19/18 10:04 Dose: 40 mg Polyethylene Glycol (Miralax (For Daily Use) -) 17 gm PO DAILY [facility] Last Admin: 04/19/18 10:04 Dose: 17 grams Senna (Senna -) 2 tab PO HS [facility] Last Admin: 04/18/18 22:02 Dose: 2 tab Sulfacetamide Sodium (Bleph-10 Ophthalmic Solution -) 1 drop OS Q3H [facility] Last Admin: 04/19/18 10:04 Dose: 1 drop - Objective Vital Signs: Vital Signs Temperature 98.3 F 04/19/18 05:00 Pulse Rate 62 04/19/18 05:00 Respiratory Rate 18 04/19/18 05:00 Blood Pressure 140/60 04/19/18 05:00 O2 Sat by Pulse Oximetry (%) 95 04/18/18 21:00 Constitutional: Yes: No Distress, Calm, Obese Eyes: Yes: Conjunctiva Clear Cardiovascular: Yes: Regular Rate and Rhythm Respiratory: Yes: Regular, CTA Bilaterally Gastrointestinal: Yes: Normal Bowel Sounds, Soft, Abdomen, Obese Genitourinary: Yes: Incontinence Musculoskeletal: Yes: Muscle Weakness Extremities: Yes: WNL Neurological: Yes: Alert, Pre-Existing Deficit Psychiatric: Yes: Alert Labs: CBC, BMP 04/19/18 07:20 04/19/18 07:20 INR, PTT INR 1.29 (0.83-1.09) H 04/16/18 08:10 <Wen Pop - Last Filed: 04/26/18 09:45> Problem List - Problems (1) Closed head injury Code(s): S09.90XA - UNSPECIFIED INJURY OF HEAD, INITIAL ENCOUNTER Qualifiers: Encounter type: initial encounter Qualified Code(s): S09.90XA - Unspecified injury of head, initial encounter (2) Fall Code(s): W19.XXXA - UNSPECIFIED FALL, INITIAL ENCOUNTER Qualifiers: Encounter type: initial encounter Qualified Code(s): W19.XXXA - Unspecified fall, initial encounter (3) Intractable cyclical vomiting Code(s): G43.A1 - CYCLICAL VOMITING, INTRACTABLE Qualifiers: Nausea presence: with nausea Qualified Code(s): G43.A1 - Cyclical vomiting , intractable (4) Afib Code(s): I48.91 - UNSPECIFIED ATRIAL FIBRILLATION (5) CAD (coronary artery disease) Code(s): I25.10 - ATHSCL HEART DISEASE OF [place] CORONARY ARTERY W/O ANG PCTRS (6) COPD (chronic obstructive pulmonary disease) Code(s): J44.9 - CHRONIC OBSTRUCTIVE PULMONARY DISEASE, UNSPECIFIED (7) Type 2 diabetes mellitus with other circulatory complications Code(s): E11.59 - TYPE 2 DIABETES MELLITUS WITH OTH CIRCULATORY COMPLICATIONS (8) Acute diastolic heart failure Code(s): I50.31 - ACUTE DIASTOLIC (CONGESTIVE) HEART FAILURE <Wen Pop - Last Filed: 04/26/18 09:45> Assessment/Plan I HAVE EXAMINED THE PATIENT AND AGREE WITH THE ABOVE NOTE <Wei Lam - Last Filed: 04/20/18 21:12> -cardiology consult, recommendation appreciated -troponin mildly elev, will repeat and monitor -cont apixiban -cont metoprolol and isosorbide mononitrate -pantoprazole BID, zofran -reglan 10mg IVPB 30min AC TID -surgery and GI consult for gastroparesis -feed patient small, frequent meals -BGM ACHS, levemir -diabetic/low sodium diet -dvt ppx -fall precaution -PT -discharge to SNF when ready <Wen Pop - Last Filed: 04/26/18 09:45>
[2018-04-19] MEDS: METOCLOPRAMIDE HCL INJECTION 10 MG/2 ML VIAL IVPB SCH ×2 (10:48→16:29)
[2018-04-19 12:06] VITALS: BMI 39.6
--- NOTE | 2018-04-19 15:29 | CONSULT ---
Consult Consult Specialty:: General Surgery Reason for Consultation:: intractable vomiting - History of Present Illness Chief Complaint: vomiting History of Present Illness: 87 yo female PMH morbid obesity, HTN, DMII, Gastroparesis, CAD, NSTEMI, Paroxysmal A-fib (on Eliquis), CHF ( EF 65 % 01/2018, on Lasix), lung nodule on CT Chest, hypothyrodism BIBA s/p lightheadedness, and fall. Patient presents following fall this AM, when attempting to stand up and ambulate to bathroom. Fall witness by . Patient lives with and son at home. Endorsed lightheadedness with standing this AM. Denies LOC, but reports falling backward with posterior head trauma, with absent neck and back trauma. Does not recall how long on ground. Able to ambulate following event. Endorses chronic abdominal discomfort, with bloating, flatulence, and nml bowel habits. + increased thirst. multiple episodes of emesis. Recent admission to [facility], for CHF exacerbation (04/07-04/15/18), diabetic gastroparesis with vomiting. EGD 04/03/18, with sliding hernia. Patient and patient family have declined SNF multiple times. Social work was consulted previous admission d/t fall risk. 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 2011 dobut MIBI: no STs ; moderate reversible defect anterior and lateral faith confounded by large breast shadow; nl EF -> pt didn't follow as outpt as planned (was on DATP for a little while). Echo 09/13: nl LVEF, nl RV, nl valve fxn), HTN, Hyperlipdemia Pulmonary: Yes: COPD Gastrointestinal: Yes: Constipation Endocrine: Yes: Diabetes Mellitus (insulin-dependent for years -> uncontrolled) , Hypothyroidism Dermatology: Yes: Cellulitis (in past, with chronic and intermittent edema) - Alcohol/Substance Use Hx Alcohol Use: No History of Substance Use: reports: None - Smoking History Smoking history: Unknown if ever smoked Have you smoked in the past 12 months: No Aproximately how many cigarettes per day: 0 If you are a former smoker, when did you quit?: 1984 - Social History Usual Living Arrangement: With Significant Other ADL: Family Assistance History of Recent Travel: No Home Medications - Allergies Allergies/Adverse Reactions: Allergies Allergy/AdvReac Type Severity Reaction Status Date / Time vancomycin AdvReac Itching Verified 04/16/18 05:54 - Home Medications Home Medications: Ambulatory Orders Atorvastatin Ca [Lipitor] 20 mg PO HS tablet 02/27/18 Docusate Sodium [Colace -] 100 mg PO BID capsule 03/25/18 Lidocaine Patch Removal [Lidoderm Patch Removal] 1 each MC DAILY@2200 #30 each 03/25/18 Nystatin Powder [Nystop Powder -] 1 applic TP DAILY #1 bottle 03/25/18 Ondansetron [Zofran Odt -] 4 mg SL Q8H #30 tab.rapdis 03/25/18 Acetaminophen [Tylenol .Regular Strength -] 650 mg PO Q6H PRN tablet 04/03/18 Apixaban [Eliquis -] 2.5 mg PO BID tablet 04/03/18 Isosorbide Mononitrate [Imdur -] 30 mg PO DAILY tab.sr.24h 04/03/18 Metoclopramide HCl [Reglan -] 5 mg PO TIDAC tablet 04/03/18 Metoprolol Tartrate [Lopressor -] 50 mg PO BID tablet 04/03/18 Pantoprazole Sodium [Protonix -] 40 mg PO BID #60 tablet.ec 04/03/18 Sennosides [Senna -] 2 tab PO HS tablet 04/03/18 Sitagliptin Phosphate [Januvia -] 50 mg PO DAILY@0700 tablet 04/03/18 Sulfacetamide Sodium 10% [Bleph-10 Ophthalmic Solution -] 1 drop OS Q3H drops 04/03/18 Albuterol 2.5/Ipratropium 0.5 [Duoneb -] 1 amp NEB Q6H amp 04/14/18 Amino Acids/Protein Hydrolys [Prosource No Carb Liquid Pkt] 30 ml PO BID@0800, 1730 packet 04/14/18 Insulin (Levemir) [Levemir Vial] 15 units SQ AM units 04/14/18 Lidocaine Patch Removal [Lidoderm Patch Removal] 1 each MC DAILY@2200 each 03/21 Polyethylene Glycol 3350 [Miralax 119 gm Btl -] 17 gm PO DAILY bottle 04/14/18 Levothyroxine [Synthroid -] 100 mcg PO DAILY@0700 04/16/18 Family Disease History - Family Disease History Family Disease History: Diabetes: Daughter Review of Systems - Review of Systems Constitutional: denies: Chills, Fever Eyes: denies: Blind Spots, Recent Change in Vision HENT: denies: Difficult Swallowing, Ringing in Ears Neck: denies: Decreased ROM, Pain on Movement, Tenderness Cardiovascular: denies: Chest Pain, Palpitations Respiratory: denies: Cough, SOB Gastrointestinal: reports: Abdominal Pain, Bloating, Indigestion, Nausea, Vomiting. denies: Constipation, Diarrhea, Dysphagia, Vomiting Blood Genitourinary: denies: Discharge, Dysuria, Frequency Breasts: reports: No Symptoms Reported. denies: Pain Musculoskeletal: denies: Extremity Pain, Joint Swelling, Muscle Pain Integumentary: denies: Blister, Bruising, Lump, Pallor Neurological: reports: Confusion. denies: Seizure, Syncope Endocrine: denies: Unexplained Weight Gain, Unexplained Weight Loss Hematology/Lymphatic: denies: Easily Bruised, Excessive Bleeding Psychiatric: denies: Anxiety, Depression Physical Exam Vital Signs: Vital Signs Temperature 98.3 F 04/19/18 13:46 Pulse Rate 61 04/19/18 13:46 Respiratory Rate 20 04/19/18 13:46 Blood Pressure 118/47 L 04/19/18 13:46 O2 Sat by Pulse Oximetry (%) 96 04/19/18 09:00 Constitutional: Yes: No Distress, Calm, Obese Eyes: Yes: Conjunctiva Clear, EOM Intact. No: PERRL HENT: Yes: Atraumatic, Normocephalic Neck: Yes: Supple, Trachea Midline Cardiovascular: No: Regular Rate and Rhythm, S1, S2 Respiratory: Yes: Regular, CTA Bilaterally Gastrointestinal: Yes: Normal Bowel Sounds, Soft, Abdomen, Obese. No: Tenderness, Tenderness, Epigastrium, Tenderness, Rebound, Vomiting Labs: CBC, BMP 04/19/18 07:20 04/19/18 07:20 Problem List - Problems (1) Gastroparesis due to DM Assessment/Plan: 87 yo female with diabetic gastroparesis and assocaietd cyclical vomiting. there is no indication for emergency surgical intervention. NGT prn vomiting glycemic control Appreciate GI input: reglan, zofran, protonix Consider referral to tertiary GI to determine if she is a candidate for gastric pacing IV access please re call as needed Code(s): E11.43 - TYPE 2 DIABETES W DIABETIC AUTONOMIC (POLY)NEUROPATHY; K31.84 - GASTROPARESIS (2) Intractable cyclical vomiting Code(s): G43.A1 - CYCLICAL VOMITING, INTRACTABLE Qualifiers: Nausea presence: with nausea Qualified Code(s): G43.A1 - Cyclical vomiting , intractable (3) Afib Code(s): I48.91 - UNSPECIFIED ATRIAL FIBRILLATION (4) Diabetes Code(s): E11.9 - TYPE 2 DIABETES MELLITUS WITHOUT COMPLICATIONS Qualifiers: Diabetes mellitus type: type 2 Diabetes mellitus complication status: with neurologic complications (5) Poorly controlled diabetes mellitus Code(s): E11.65 - TYPE 2 DIABETES MELLITUS WITH HYPERGLYCEMIA (6) Vomiting Code(s): R11.10 - VOMITING, UNSPECIFIED Qualifiers: Vomiting type: unspecified Vomiting Intractability: non-intractable Nausea presence: with nausea Qualified Code(s): R11.2 - Nausea with vomiting, unspecified
--- NOTE | 2018-04-19 16:09 | PN ---
Progress Note, Physician Chief Complaint: No distress History of Present Illness: This is an 87 year old female with HTN, DM, Paroxysmal A-fib (on Eliquis), dCHF , lung nodule on CT Chest. She was admitted now with a fall witnessed by her . He was clear in that she did not have LOC. However, she does get lightheaded and was attempting to ambulate to the bathroom. She patient has dementia and the history was provided by her son. - Current Medication List Current Medications: Active Medications Acetaminophen (Tylenol -) 650 mg PO Q6H PRN PRN Reason: PAIN LEVEL 1-5 Last Admin: 04/19/18 13:20 Dose: 650 mg Apixaban (Eliquis -) 2.5 mg PO BID [facility] Last Admin: 04/19/18 10:04 Dose: 2.5 mg Atorvastatin Calcium (Lipitor -) 20 mg PO HS [facility] Last Admin: 04/18/18 22:02 Dose: 20 mg Escitalopram Oxalate (Lexapro -) 5 mg PO DAILY [facility] Last Admin: 04/19/18 10:12 Dose: 5 mg Insulin Detemir (Levemir Vial) 15 units SQ AM [facility] Last Admin: 04/19/18 06:20 Dose: 15 unit Isosorbide Mononitrate (Imdur -) 30 mg PO DAILY [facility] Last Admin: 04/19/18 10:04 Dose: 30 mg Levothyroxine Sodium (Synthroid -) 100 mcg PO DAILY@0700 [facility] Last Admin: 04/19/18 06:22 Dose: 100 mcg Metoclopramide HCl (Reglan Injection -) 10 mg IVPB TIDAC [facility] Stop: 04/22/18 10:59 Last Admin: 04/19/18 10:48 Dose: Not Given Metoprolol Tartrate (Lopressor -) 50 mg PO BID [facility] Last Admin: 04/19/18 10:04 Dose: 50 mg Ondansetron HCl (Zofran Injection) 4 mg IVPB Q4H PRN PRN Reason: NAUSEA AND/OR VOMITING Last Admin: 04/16/18 22:31 Dose: 4 mg Pantoprazole Sodium (Protonix -) 40 mg PO BID [facility] Last Admin: 04/19/18 10:04 Dose: 40 mg Polyethylene Glycol (Miralax (For Daily Use) -) 17 gm PO DAILY [facility] Last Admin: 04/19/18 10:04 Dose: 17 grams Senna (Senna -) 2 tab PO HS [facility] Last Admin: 04/18/18 22:02 Dose: 2 tab Sulfacetamide Sodium (Bleph-10 Ophthalmic Solution -) 1 drop OS Q3H [facility] Last Admin: 04/19/18 15:09 Dose: 1 drop - Objective Vital Signs: Vital Signs Temperature 98.3 F 04/19/18 13:46 Pulse Rate 61 04/19/18 13:46 Respiratory Rate 20 04/19/18 13:46 Blood Pressure 118/47 L 04/19/18 13:46 O2 Sat by Pulse Oximetry (%) 96 04/19/18 09:00 Constitutional: Yes: No Distress Eyes: Yes: WNL HENT: Yes: WNL Neck: Yes: WNL Cardiovascular: Yes: Regular Rate and Rhythm (04/08 [place] RUSB) Respiratory: Yes: CTA Bilaterally Edema: Yes Edema: LLE: Trace, RLE: Trace Neurological: Yes: Confusion (Dementia) Labs: CBC, BMP 04/19/18 07:20 04/19/18 07:20 INR, PTT INR 1.29 (0.83-1.09) H 04/16/18 08:10 Assessment/Plan 87 year old female with HTN, DM, Paroxysmal A-fib (on Eliquis), dCHF, lung nodule on CT Chest. She was admitted now with a fall witnessed by her . He was clear in that she did not have LOC. However, she does get lightheaded and was attempting to ambulate to the bathroom. She patient has dementia and the history was provided by her son. Fall Doubt syncope based on the son's history. Patient has difficulty ambulating and this may have been a mechanical fall Would avoid over treating BP Continue metoprolol and isosorbide mononitrate for now, would favor conservative care at this time Trop 0.06, trending down to 0.04 Out patient follow up
[2018-04-19] MEDS ORDERED: ONDANSETRON 4 MG TABLET PO PRN (19:12)
[2018-04-19] MEDS: ATORVASTATIN CA 20 MG TABLET (FP) PO SCH (23:08)
[2018-04-19] MEDS: SENNOSIDES 8.6MG TABLET (FP) PO SCH (23:08)
[2018-04-20] MEDS: SULFACETAMIDE SODIUM 10% OPHTHALMIC DROPS 15 ML BOTTLE OS SCH ×8 (01:00→22:04)
[2018-04-20] MEDS: ACETAMINOPHEN 325 MG TABLET (FP) PO PRN ×3 (01:07→15:44)
[2018-04-20] MEDS: METOCLOPRAMIDE HCL 10 MG TABLET (FP) PO SCH ×3 (06:26→15:44)
[2018-04-20] MEDS: LEVOTHYROXINE NA 100 MCG TABLET (FP) PO SCH (06:27)
[2018-04-20] MEDS: INSULIN (LEVEMIR) 100 UNITS/ML UNITS SQ SCH (06:27)
--- NOTE | 2018-04-20 07:49 | CON.GI ---
Consult Consult Specialty:: Gastroenterology Referred by:: Wen Pop NP Reason for Consultation:: Gastroparesis and vomiting - History of Present Illness Chief Complaint: Abdominal pain, nausea, vomiting History of Present Illness: Patient is an 87 y/o female with past medical history of HTN, DM, gastroparesis , hypothyroidism. Patient referred to GI for gastroparesis and cyclical vomiting. EGD done on 04/03/18 show sliding hernia. On examination patient complain of early satiety and generalized abdominal pain accompanied with vomiting after ingesting food. Abdominal CT scan from 03/18/18 show mild degree of acute sigmoid diverticulitis and mall bowel xray from 04/12/18 shows normal small bowel and normal terminal ileum. 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 2011 dobut MIBI: no STs ; moderate reversible defect anterior and lateral faith confounded by large breast shadow; nl EF -> pt didn't follow as outpt as planned (was on DATP for a little while). Echo 09/13: nl LVEF, nl RV, nl valve fxn), HTN, Hyperlipdemia Pulmonary: Yes: COPD Gastrointestinal: Yes: Constipation Endocrine: Yes: Diabetes Mellitus (insulin-dependent for years -> uncontrolled) , Hypothyroidism Dermatology: Yes: Cellulitis (in past, with chronic and intermittent edema) - Alcohol/Substance Use Hx Alcohol Use: No History of Substance Use: reports: None - Smoking History Smoking history: Unknown if ever smoked Have you smoked in the past 12 months: No Aproximately how many cigarettes per day: 0 If you are a former smoker, when did you quit?: 1984 - Social History Usual Living Arrangement: With Significant Other ADL: Family Assistance History of Recent Travel: No Home Medications - Allergies Allergies/Adverse Reactions: Allergies Allergy/AdvReac Type Severity Reaction Status Date / Time vancomycin AdvReac Itching Verified 04/16/18 05:54 - Home Medications Home Medications: Ambulatory Orders Atorvastatin Ca [Lipitor] 20 mg PO HS tablet 02/27/18 Docusate Sodium [Colace -] 100 mg PO BID capsule 03/25/18 Lidocaine Patch Removal [Lidoderm Patch Removal] 1 each MC DAILY@2200 #30 each 03/25/18 Nystatin Powder [Nystop Powder -] 1 applic TP DAILY #1 bottle 03/25/18 Ondansetron [Zofran Odt -] 4 mg SL Q8H #30 tab.rapdis 03/25/18 Acetaminophen [Tylenol .Regular Strength -] 650 mg PO Q6H PRN tablet 04/03/18 Apixaban [Eliquis -] 2.5 mg PO BID tablet 04/03/18 Isosorbide Mononitrate [Imdur -] 30 mg PO DAILY tab.sr.24h 04/03/18 Metoclopramide HCl [Reglan -] 5 mg PO TIDAC tablet 04/03/18 Metoprolol Tartrate [Lopressor -] 50 mg PO BID tablet 04/03/18 Pantoprazole Sodium [Protonix -] 40 mg PO BID #60 tablet.ec 04/03/18 Sennosides [Senna -] 2 tab PO HS tablet 04/03/18 Sitagliptin Phosphate [Januvia -] 50 mg PO DAILY@0700 tablet 04/03/18 Sulfacetamide Sodium 10% [Bleph-10 Ophthalmic Solution -] 1 drop OS Q3H drops 04/03/18 Albuterol 2.5/Ipratropium 0.5 [Duoneb -] 1 amp NEB Q6H amp 04/14/18 Amino Acids/Protein Hydrolys [Prosource No Carb Liquid Pkt] 30 ml PO BID@0800, 1730 packet 04/14/18 Insulin (Levemir) [Levemir Vial] 15 units SQ AM units 04/14/18 Lidocaine Patch Removal [Lidoderm Patch Removal] 1 each MC DAILY@2200 each 03/21 Polyethylene Glycol 3350 [Miralax 119 gm Btl -] 17 gm PO DAILY bottle 04/14/18 Levothyroxine [Synthroid -] 100 mcg PO DAILY@0700 04/16/18 Family Disease History - Family Disease History Family Disease History: Diabetes: Daughter Review of Systems - Review of Systems Constitutional: reports: No Symptoms Eyes: reports: No Symptoms HENT: reports: No Symptoms Neck: reports: No Symptoms Cardiovascular: reports: No Symptoms Respiratory: reports: No Symptoms Gastrointestinal: reports: Abdominal Pain, Nausea, Vomiting Genitourinary: reports: No Symptoms Breasts: reports: No Symptoms Reported Musculoskeletal: reports: No Symptoms Integumentary: reports: No Symptoms Neurological: reports: No Symptoms Endocrine: reports: No Symptoms Hematology/Lymphatic: reports: No Symptoms Psychiatric: reports: No Symptoms Physical Exam-GI Vital Signs: Vital Signs Temperature 98.8 F 04/20/18 05:00 Pulse Rate 68 04/20/18 05:00 Respiratory Rate 18 04/20/18 05:00 Blood Pressure 120/58 L 04/20/18 05:00 O2 Sat by Pulse Oximetry (%) 96 04/19/18 21:00 Constitutional: Yes: No Distress, Calm, Obese Eyes: Yes: Conjunctiva Clear Neck: Yes: Supple Cardiovascular: Yes: Regular Rate and Rhythm Respiratory: Yes: Regular, CTA Bilaterally Gastrointestinal Inspection: Yes: WNL ...Auscultate: Yes: Normoactive Bowel Sounds ...Palpate: Yes: Soft. No: Firm/Rigid, Guarding, Hepatomegaly, Mass, Splenomegaly, Tenderness Genitourinary: Yes: Incontinence Musculoskeletal: Yes: Muscle Weakness Edema: No Neurological: Yes: Alert, Pre-Existing Deficit Labs: CBC, BMP 04/19/18 07:20 04/19/18 07:20 INR, PTT INR 1.29 (0.83-1.09) H 04/16/18 08:10 Problem List - Problems (1) Gastroparesis due to DM Assessment/Plan: >Small bowel series ordered feed small meals 6 times per day Reglan 5mg TID AC Pantoprazole 40mg daily Code(s): E11.43 - TYPE 2 DIABETES W DIABETIC AUTONOMIC (POLY)NEUROPATHY; K31.84 - GASTROPARESIS
[2018-04-20] MEDS: METOPROLOL TARTRATE 50 MG TABLET (FP) PO SCH ×2 (09:21→22:09)
[2018-04-20] MEDS: APIXABAN 2.5 MG TABLET PO SCH ×2 (09:21→22:04)
[2018-04-20] MEDS: POLYETHYLENE GLYCOL 3350 119 GM BTL PO SCH (09:21)
[2018-04-20] MEDS: ESCITALOPRAM OXALATE 10 MG TABLET (FP) PO SCH (09:21)
[2018-04-20] MEDS: PANTOPRAZOLE 40 MG TABLET (FP) PO SCH ×2 (09:21→22:09)
[2018-04-20 09:23] LABS: HEMATOCRIT 39.5 % (32.4-45.2); HEMOGLOBIN 13.1 GM/dL (10.7-15.3); MCH 31.2 pg (25.7-33.7); MCHC 33.2 g/dl (32.0-36.0); MEAN CELL VOLUME 94.2 fl (80-96); MEAN PLT VOLUME 9.8 fl (7.5-11.1); PLATELET COUNT 149 K/MM3 (134-434); RBC 4.19 M/mm3 (3.60-5.2); RDW 14.6 % (11.6-15.6); WHITE BLOOD COUNT 8.2 K/mm3 (4.0-10.0)
[2018-04-20] MEDS: ISOSORBIDE MONONITRATE 30 MG TAB.SR.24H (FP) PO SCH (09:24)
[2018-04-20 09:44] LABS: ALBUMIN 2.1 g/dl (3.4-5.0); ALK PHOS 55 U/L (45-117); ANION GAP 7 MMOL/L (8-16); BILIRUBIN,TOTAL 1.1 mg/dL (0.2-1); BLOOD UREA NITROGEN 8 mg/dL (7-18); CALCIUM 7.9 mg/dL (8.5-10.1); CHLORIDE 104 mmol/L (98-107); CO2 27 mmol/L (21-32); CREATININE 0.6 mg/dL (0.55-1.3); GLUCOSE,RANDOM 223 mg/dL (74-106); POTASSIUM 3.4 mmol/L (3.5-5.1); SGOT/AST 19 U/L (15-37); SGPT/ALT 13 U/L (13-61); SODIUM 138 mmol/L (136-145)
--- NOTE | 2018-04-20 11:34 | PN ---
Progress Note, Physician Chief Complaint: Gastroparesis and vomiting Abdominal pain, nausea, vomiting History of Present Illness: NAD Seen by GI Small bowel GI series ordered - Current Medication List Current Medications: Active Medications Acetaminophen (Tylenol -) 650 mg PO Q6H PRN PRN Reason: PAIN LEVEL 1-5 Last Admin: 04/20/18 06:26 Dose: 650 mg Apixaban (Eliquis -) 2.5 mg PO BID [facility] Last Admin: 04/20/18 09:21 Dose: 2.5 mg Atorvastatin Calcium (Lipitor -) 20 mg PO HS [facility] Last Admin: 04/19/18 23:08 Dose: 20 mg Escitalopram Oxalate (Lexapro -) 5 mg PO DAILY [facility] Last Admin: 04/20/18 09:21 Dose: 5 mg Insulin Detemir (Levemir Vial) 15 units SQ AM [facility] Last Admin: 04/20/18 06:27 Dose: 15 unit Isosorbide Mononitrate (Imdur -) 30 mg PO DAILY [facility] Last Admin: 04/20/18 09:24 Dose: 30 mg Levothyroxine Sodium (Synthroid -) 100 mcg PO DAILY@0700 [facility] Last Admin: 04/20/18 06:27 Dose: 100 mcg Metoclopramide HCl (Reglan -) 10 mg PO TIDAC [facility] Last Admin: 04/20/18 11:03 Dose: 10 mg Metoprolol Tartrate (Lopressor -) 50 mg PO BID [facility] Last Admin: 04/20/18 09:21 Dose: 50 mg Ondansetron HCl (Zofran -) 4 mg PO Q8H PRN PRN Reason: NAUSEA AND/OR VOMITING Pantoprazole Sodium (Protonix -) 40 mg PO BID [facility] Last Admin: 04/20/18 09:21 Dose: 40 mg Polyethylene Glycol (Miralax (For Daily Use) -) 17 gm PO DAILY [facility] Last Admin: 04/20/18 09:21 Dose: 17 grams Senna (Senna -) 2 tab PO [facility] Last Admin: 04/19/18 23:08 Dose: 2 tab Sulfacetamide Sodium (Bleph-10 Ophthalmic Solution -) 1 drop OS Q3H [facility] Last Admin: 04/20/18 08:24 Dose: 1 drop - Objective Vital Signs: Vital Signs Temperature 97.8 F 04/20/18 09:00 Pulse Rate 67 04/20/18 09:00 Respiratory Rate 18 01/18/19 09:00 Blood Pressure 139/76 04/20/18 09:00 O2 Sat by Pulse Oximetry (%) 95 04/20/18 09:00 Constitutional: Yes: Well Nourished, No Distress, Calm, Obese Cardiovascular: Yes: Regular Rate and Rhythm Respiratory: Yes: Regular Gastrointestinal: Yes: Normal Bowel Sounds, Soft, Abdomen, Obese Musculoskeletal: Yes: Muscle Weakness Edema: No Peripheral Pulses WNL: Yes Neurological: Yes: Alert, Pre-Existing Deficit Psychiatric: Yes: Alert Labs: CBC, BMP 04/20/18 08:45 04/20/18 08:45 INR, PTT INR 1.29 (0.83-1.09) H 04/16/18 08:10 Problem List - Problems (1) Fall Assessment/Plan: -Physical therapy -safety precautions Code(s): W19.XXXA - UNSPECIFIED FALL, INITIAL ENCOUNTER Qualifiers: Encounter type: initial encounter Qualified Code(s): W19.XXXA - Unspecified fall, initial encounter (2) Intractable cyclical vomiting Assessment/Plan: -resolved -Seen by GI -reglan 10 mg tid ac -6 small meals throughout the day -gastroperesis study outpatient Code(s): G43.A1 - CYCLICAL VOMITING, INTRACTABLE Qualifiers: Nausea presence: with nausea Qualified Code(s): G43.A1 - Cyclical vomiting , intractable (3) Abdominal pain Assessment/Plan: -resolved Code(s): R10.9 - UNSPECIFIED ABDOMINAL PAIN Qualifiers: Abdominal location: generalized Qualified Code(s): R10.84 - Generalized abdominal pain (4) Acute metabolic encephalopathy Code(s): G93.41 - METABOLIC ENCEPHALOPATHY (5) Afib Assessment/Plan: -On elliquis Code(s): I48.91 - UNSPECIFIED ATRIAL FIBRILLATION (6) Gastroparesis due to DM Assessment/Plan: -Seen by GI -Gastroperesis study outpatient Code(s): E11.43 - TYPE 2 DIABETES W DIABETIC AUTONOMIC (POLY)NEUROPATHY; K31.84 - GASTROPARESIS Assessment/Plan see problem list Physical therapy d/c to snf once accepted
[2018-04-20] MEDS ORDERED: POTASSIUM CHLORIDE ORAL LIQUID 20 MEQ/15 ML PO ONE (12:23)
--- NOTE | 2018-04-20 15:19 | PN ---
Progress Note, Physician Chief Complaint: No distress History of Present Illness: This is an 87 year old female with HTN, DM, Paroxysmal A-fib (on Eliquis), dCHF , lung nodule on CT Chest. She was admitted now with a fall witnessed by her . He was clear in that she did not have LOC. However, she does get lightheaded and was attempting to ambulate to the bathroom. She patient has dementia and the history was provided by her son. - Current Medication List Current Medications: Active Medications Acetaminophen (Tylenol -) 650 mg PO Q6H PRN PRN Reason: PAIN LEVEL 1-5 Last Admin: 04/20/18 06:26 Dose: 650 mg Apixaban (Eliquis -) 2.5 mg PO BID [facility] Last Admin: 04/20/18 09:21 Dose: 2.5 mg Atorvastatin Calcium (Lipitor -) 20 mg PO HS [facility] Last Admin: 04/19/18 23:08 Dose: 20 mg Escitalopram Oxalate (Lexapro -) 5 mg PO DAILY [facility] Last Admin: 04/20/18 09:21 Dose: 5 mg Insulin Detemir (Levemir Vial) 15 units SQ AM [facility] Last Admin: 04/20/18 06:27 Dose: 15 unit Isosorbide Mononitrate (Imdur -) 30 mg PO DAILY [facility] Last Admin: 04/20/18 09:24 Dose: 30 mg Levothyroxine Sodium (Synthroid -) 100 mcg PO DAILY@0700 [facility] Last Admin: 04/20/18 06:27 Dose: 100 mcg Metoclopramide HCl (Reglan -) 10 mg PO TIDAC [facility] Last Admin: 04/20/18 11:03 Dose: 10 mg Metoprolol Tartrate (Lopressor -) 50 mg PO BID [facility] Last Admin: 04/20/18 09:21 Dose: 50 mg Ondansetron HCl (Zofran -) 4 mg PO Q8H PRN PRN Reason: NAUSEA AND/OR VOMITING Pantoprazole Sodium (Protonix -) 40 mg PO BID [facility] Last Admin: 04/20/18 09:21 Dose: 40 mg Polyethylene Glycol (Miralax (For Daily Use) -) 17 gm PO DAILY [facility] Last Admin: 04/20/18 09:21 Dose: 17 grams Senna (Senna -) 2 tab PO [facility] Last Admin: 04/19/18 23:08 Dose: 2 tab Sulfacetamide Sodium (Bleph-10 Ophthalmic Solution -) 1 drop OS Q3H [facility] Last Admin: 04/20/18 14:29 Dose: Not Given - Objective Vital Signs: Vital Signs Temperature 97.8 F 04/20/18 09:00 Pulse Rate 67 04/20/18 09:00 Respiratory Rate 18 04/20/18 09:00 Blood Pressure 139/76 04/20/18 09:00 O2 Sat by Pulse Oximetry (%) 95 04/20/18 09:00 Constitutional: Yes: Calm HENT: Yes: WNL Neck: Yes: WNL Cardiovascular: Yes: Regular Rate and Rhythm (NL S1S2 1/6 [facility]) Respiratory: Yes: CTA Bilaterally Extremities: Yes: Other (Skin breakdown upper extremeties) Edema: LLE: Trace, RLE: Trace Neurological: Yes: Confusion Labs: CBC, BMP 04/20/18 08:45 04/20/18 08:45 INR, PTT INR 1.29 (0.83-1.09) H 04/16/18 08:10 Assessment/Plan 87 year old female with HTN, DM, Paroxysmal A-fib (on Eliquis), dCHF, lung nodule on CT Chest. She was admitted now with a fall witnessed by her . He was clear in that she did not have LOC. However, she does get lightheaded and was attempting to ambulate to the bathroom. She patient has dementia and the history was provided by her son. Fall Doubt syncope based on the son's history. Patient has difficulty ambulating and this may have been a mechanical fall Would avoid over treating BP Continue metoprolol and isosorbide mononitrate for now, would favor conservative care at this time Trop 0.06, trending down to 0.04 Out patient follow up Call us prn
--- NOTE | 2018-04-20 18:01 | PN ---
GI Progress Note Subjective: patient has 1 episode of vomiting/Small bowel series was normal - Objective Vital Signs: Vital Signs Temperature 97.9 F 04/20/18 15:17 Pulse Rate 58 L 04/20/18 15:17 Respiratory Rate 20 04/20/18 15:17 Blood Pressure 150/72 04/20/18 15:17 O2 Sat by Pulse Oximetry (%) 95 04/20/18 09:00 Constitutional: Well Nourished Eyes: Yes: Conjunctiva Clear HENT: Yes: Atraumatic Neck: Yes: Supple Cardiovascular: Yes: Regular Rate and Rhythm Respiratory: Yes: CTA Bilaterally ...Palpate: Yes: Soft. No: Firm/Rigid, Guarding, Hepatomegaly, Mass, Pulsatile Mass, Splenomegaly, Tenderness Labs: CBC, BMP 04/20/18 08:45 04/20/18 08:45 INR, PTT INR 1.29 (0.83-1.09) H 04/16/18 08:10 Problem List - Problems (1) Gastroparesis due to DM Assessment/Plan: R> continue Pantoprazole 40mg daily and Reglan 5mg 30 min ac Code(s): E11.43 - TYPE 2 DIABETES W DIABETIC AUTONOMIC (POLY)NEUROPATHY; K31.84 - GASTROPARESIS
[2018-04-20] MEDS: ATORVASTATIN CA 20 MG TABLET (FP) PO SCH (22:04)
[2018-04-20] MEDS: SENNOSIDES 8.6MG TABLET (FP) PO SCH (22:09)
[2018-04-21] MEDS: SULFACETAMIDE SODIUM 10% OPHTHALMIC DROPS 15 ML BOTTLE OS SCH ×6 (00:25→15:15)
[2018-04-21] MEDS: METOCLOPRAMIDE HCL 10 MG TABLET (FP) PO SCH ×3 (06:14→17:04)
[2018-04-21] MEDS: LEVOTHYROXINE NA 100 MCG TABLET (FP) PO SCH (06:14)
[2018-04-21] MEDS: INSULIN (LEVEMIR) 100 UNITS/ML UNITS SQ SCH (06:18)
[2018-04-21] MEDS ORDERED: INSULIN (LEVEMIR) 100 UNITS/ML UNITS SQ ONE (06:34)
[2018-04-21 08:27] LABS: ANION GAP 11 MMOL/L (8-16); BLOOD UREA NITROGEN 5 mg/dL (7-18); CALCIUM 7.7 mg/dL (8.5-10.1); CHLORIDE 105 mmol/L (98-107); CO2 27 mmol/L (21-32); CREATININE 0.5 mg/dL (0.55-1.3); GLUCOSE,RANDOM 170 mg/dL (74-106); POTASSIUM 3.2 mmol/L (3.5-5.1); SODIUM 143 mmol/L (136-145)
[2018-04-21] MEDS: PANTOPRAZOLE 40 MG TABLET (FP) PO SCH (09:55)
[2018-04-21] MEDS: METOPROLOL TARTRATE 50 MG TABLET (FP) PO SCH (09:56)
[2018-04-21] MEDS: APIXABAN 2.5 MG TABLET PO SCH (09:56)
[2018-04-21] MEDS: ESCITALOPRAM OXALATE 10 MG TABLET (FP) PO SCH (09:56)
[2018-04-21] MEDS: ISOSORBIDE MONONITRATE 30 MG TAB.SR.24H (FP) PO SCH (09:56)
--- NOTE | 2018-04-21 09:56 | PN ---
Progress Note, Physician Chief Complaint: Gastroparesis and vomiting Abdominal pain, nausea, vomiting History of Present Illness: NAD Seen by GI Small bowel GI series cancelled, was recently done GI recommend gastroperesis study, done outpatient No abdominal pain, N/V - Current Medication List Current Medications: Active Medications Acetaminophen (Tylenol -) 650 mg PO Q6H PRN PRN Reason: PAIN LEVEL 1-5 Last Admin: 04/20/18 15:44 Dose: 650 mg Apixaban (Eliquis -) 2.5 mg PO BID [facility] Last Admin: 04/20/18 22:04 Dose: 2.5 mg Atorvastatin Calcium (Lipitor -) 20 mg PO HS [facility] Last Admin: 04/20/18 22:04 Dose: 20 mg Escitalopram Oxalate (Lexapro -) 5 mg PO DAILY [facility] Last Admin: 04/20/18 09:21 Dose: 5 mg Insulin Detemir (Levemir Vial) 15 units SQ AM [facility] Last Admin: 04/21/18 06:18 Dose: 15 unit Isosorbide Mononitrate (Imdur -) 30 mg PO DAILY [facility] Last Admin: 04/20/18 09:24 Dose: 30 mg Levothyroxine Sodium (Synthroid -) 100 mcg PO DAILY@0700 [facility] Last Admin: 04/21/18 06:14 Dose: 100 mcg Metoclopramide HCl (Reglan -) 10 mg PO TIDAC [facility] Last Admin: 04/21/18 06:14 Dose: 10 mg Metoprolol Tartrate (Lopressor -) 50 mg PO BID [facility] Last Admin: 04/20/18 22:09 Dose: 50 mg Ondansetron HCl (Zofran -) 4 mg PO Q8H PRN PRN Reason: NAUSEA AND/OR VOMITING Pantoprazole Sodium (Protonix -) 40 mg PO BID [facility] Last Admin: 04/20/18 22:09 Dose: 40 mg Polyethylene Glycol (Miralax (For Daily Use) -) 17 gm PO DAILY [facility] Last Admin: 04/20/18 09:21 Dose: 17 grams Senna (Senna -) 2 tab PO HS [facility] Last Admin: 04/20/18 22:09 Dose: 2 tab Sulfacetamide Sodium (Bleph-10 Ophthalmic Solution -) 1 drop OS Q3H [facility] Last Admin: 04/21/18 06:15 Dose: 1 drop - Objective Vital Signs: Vital Signs Temperature 98.0 F 01/19/19 06:00 Pulse Rate 73 04/21/18 06:00 Respiratory Rate 20 04/21/18 06:00 Blood Pressure 163/86 04/21/18 06:00 O2 Sat by Pulse Oximetry (%) 95 04/20/18 19:57 Constitutional: Yes: Well Nourished, No Distress, Calm, Obese Cardiovascular: Yes: Regular Rate and Rhythm Respiratory: Yes: Regular Gastrointestinal: Yes: Normal Bowel Sounds, Soft, Abdomen, Obese Musculoskeletal: Yes: Muscle Weakness Extremities: Yes: WNL Edema: No Peripheral Pulses WNL: Yes Neurological: Yes: Alert, Pre-Existing Deficit Psychiatric: Yes: Alert Labs: CBC, BMP 04/20/18 08:45 04/21/18 06:15 INR, PTT INR 1.29 (0.83-1.09) H 04/16/18 08:10 Problem List - Problems (1) Fall Assessment/Plan: -Physical therapy -safety precautions Code(s): W19.XXXA - UNSPECIFIED FALL, INITIAL ENCOUNTER Qualifiers: Encounter type: initial encounter Qualified Code(s): W19.XXXA - Unspecified fall, initial encounter (2) Intractable cyclical vomiting Assessment/Plan: -resolved -Seen by GI -reglan 10 mg tid ac -6 small meals throughout the day -gastroperesis study outpatient Code(s): G43.A1 - CYCLICAL VOMITING, INTRACTABLE Qualifiers: Nausea presence: with nausea Qualified Code(s): G43.A1 - Cyclical vomiting , intractable (3) Abdominal pain Assessment/Plan: -resolved Code(s): R10.9 - UNSPECIFIED ABDOMINAL PAIN Qualifiers: Abdominal location: generalized Qualified Code(s): R10.84 - Generalized abdominal pain (4) Acute metabolic encephalopathy Code(s): G93.41 - METABOLIC ENCEPHALOPATHY (5) Afib Assessment/Plan: -On elliquis Code(s): I48.91 - UNSPECIFIED ATRIAL FIBRILLATION (6) Gastroparesis due to DM Assessment/Plan: -Seen by GI -Gastroperesis study outpatient Code(s): E11.43 - TYPE 2 DIABETES W DIABETIC AUTONOMIC (POLY)NEUROPATHY; K31.84 - GASTROPARESIS Assessment/Plan see problem list Physical therapy
[2018-04-21] MEDS ORDERED: POTASSIUM CHLORIDE ORAL LIQUID 20 MEQ/15 ML PO ONE (10:00)
[2018-04-21] MEDS ORDERED: POLYETHYLENE GLYCOL 3350 119 GM BTL PO SCH (10:01)
--- NOTE | 2018-04-21 10:07 | DS ---
Physical Examination Vital Signs: Vital Signs Temperature 98.5 F 04/21/18 10:00 Pulse Rate 74 04/21/18 10:00 Respiratory Rate 20 04/21/18 10:00 Blood Pressure 161/89 04/21/18 10:00 O2 Sat by Pulse Oximetry (%) 95 04/20/18 19:57 Findings/Remarks: 87 yo F with HTN, DMII, Gastroparesis, CAD, NSTEMI, Paroxysmal A-fib (on Eliquis ), CHF ( EF 65 % 01/2018, on Lasix), lung nodule on CT Chest, hypothyrodism BIBA s/p lightheadedness, and fall. Patient presents following fall this AM, when attempting to stand up and ambulate to bathroom. Fall witness by . Patient lives with and son at home. Endorsed lightheadedness with standing this AM. Denies LOC, but reports falling backward with posterior head trauma, with absent neck and back trauma. Does not recall how long on ground. Able to ambulate following event. Endorses chronic abdominal discomfort, with bloating, flatulence, and nml bowel habits. + increased thirst. Recent admission to [facility], for CHF exacerbation (04/07-04/15/18), diabetic gastroparesis with vomiting. EGD 04/03/18, with sliding hernia. Patient and patient family have declined SNF multiple times. Social work was consulted previous admission d/t fall risk. Constitutional: Yes: Well Nourished, No Distress, Calm, Obese Cardiovascular: Yes: Regular Rate and Rhythm Respiratory: Yes: Regular Gastrointestinal: Yes: Normal Bowel Sounds, Soft, Abdomen, Obese Musculoskeletal: Yes: Muscle Weakness Extremities: Yes: WNL Edema: No Peripheral Pulses WNL: Yes Neurological: Yes: Alert, Pre-Existing Deficit Psychiatric: Yes: Alert Labs: CBC, BMP 04/20/18 08:45 04/21/18 06:15 Discharge Summary Reason For Visit: INTRACTABLE CYCLICAL VOMITING/FAILURE TO THRIVE Current Active Problems Closed head injury (Acute) Fall (Acute) Intractable cyclical vomiting (Acute) Hospital Course: Laboratory Last Values WBC 8.2 K/mm3 (4.0-10.0) 04/20/18 08:45 RBC 4.19 M/mm3 (3.60-5.2) 04/20/18 08:45 Hgb 13.1 GM/dL (10.7-15.3) 04/20/18 08:45 Hct 39.5 % (32.4-45.2) 04/20/18 08:45 MCV 94.2 fl (80-96) 04/20/18 08:45 MCH 31.2 pg (25.7-33.7) 04/20/18 08:45 MCHC 33.2 g/dl (32.0-36.0) 04/20/18 08:45 RDW 14.6 % (11.6-15.6) 04/20/18 08:45 Plt Count 149 K/MM3 (134-434) 04/20/18 08:45 MPV 9.8 fl (7.5-11.1) 04/20/18 08:45 Absolute Neuts (auto) 6.8 K/mm3 (1.5-8.0) 04/17/18 09:00 Neutrophils % 72.3 % (42.8-82.8) 04/17/18 09:00 Lymphocytes % 15.5 % (8-40) 04/17/18 09:00 Monocytes % 10.9 % (3.8-10.2) H 04/17/18 09:00 Eosinophils % 1.1 % (0-4.5) D 04/17/18 09:00 Basophils % 0.2 % (0-2.0) 04/17/18 09:00 Nucleated RBC % 0 % (0-0) 04/17/18 09:00 PT with INR 15.30 SEC (9.7-13.0) H 04/16/18 08:10 INR 1.29 (0.83-1.09) H 04/16/18 08:10 VBG pH 7.40 (7.32-7.42) 04/16/18 08:50 POC VBG pCO2 52.9 mmHg (38-52) H 04/16/18 08:50 POC VBG pO2 27.4 mmHg (28-48) L 04/16/18 08:50 Mixed VBG HCO3 32.1 meq/L (19-25) H 04/16/18 08:50 Sodium 143 mmol/L (136-145) 04/21/18 06:15 Potassium 3.2 mmol/L (3.5-5.1) L 04/21/18 06:15 Chloride 105 mmol/L (98-107) 04/21/18 06:15 Carbon Dioxide 27 mmol/L (21-32) 04/21/18 06:15 Anion Gap 11 MMOL/L (8-16) 04/21/18 06:15 BUN 5 mg/dL (7-18) L 04/21/18 06:15 Creatinine 0.5 mg/dL (0.55-1.3) L 04/21/18 06:15 Creat Clearance w eGFR > 60 (>60) 04/21/18 06:15 POC Glucometer 159 UNITS (80-120) 04/21/18 06:16 Random Glucose 170 mg/dL (74-106) H 04/21/18 06:15 Calcium 7.7 mg/dL (8.5-10.1) L 04/21/18 06:15 Total Bilirubin 1.1 mg/dL (0.2-1) H 04/20/18 08:45 AST 19 U/L (15-37) 04/20/18 08:45 ALT 13 U/L (13-61) 04/20/18 08:45 Alkaline Phosphatase 55 U/L (45-117) 04/20/18 08:45 Creatine Kinase 38 IU/L (26-192) 04/18/18 16:00 Troponin I 0.04 ng/ml (0.00-0.05) 04/19/18 07:20 Total Protein 5.0 g/dl (6.4-8.2) L 04/20/18 08:45 Albumin 2.1 g/dl (3.4-5.0) L 04/20/18 08:45 Lipase 38 U/L (73-393) L 04/16/18 08:10 Carcinoembryonic Ag 3.5 ng/mL (0.0-4.7) 04/19/18 10:39 CA 19-9 Antigen 5 U/mL (0-35) 04/19/18 13:25 Urine Color Amanda 04/17/18 19:18 Urine Appearance Slcloudy 04/17/18 19:18 Urine pH 5.0 (5.0-8.0) 04/17/18 19:18 Ur Specific [place] 1.017 (1.010-1.035) 04/17/18 19:18 Urine Protein Negative (NEGATIVE) 04/17/18 19:18 Urine Glucose (UA) Negative (NEGATIVE) 04/17/18 19:18 Urine Ketones Trace (NEGATIVE) H 04/17/18 19:18 Urine Blood Negative (NEGATIVE) 04/17/18 19:18 Urine Nitrite Negative (NEGATIVE) 04/17/18 19:18 Urine Bilirubin Negative (<2.0 mg/dL) 04/17/18 19:18 Urine Urobilinogen 4.0 e.u/dl mg/dL (0.2-1.0) H 04/17/18 19:18 Ur Leukocyte Esterase Trace (NEGATIVE) 04/17/18 19:18 Urine WBC (Auto) 13 /hpf (3-5) 04/17/18 19:18 Urine RBC (Auto) 4 /hpf (0-3) 04/17/18 19:18 Ur Epithelial Cells Few /HPF (FEW) 04/17/18 19:18 Urine Bacteria Rare /hpf (NONE SEEN) 04/17/18 19:18 Urine Mucus Rare 04/17/18 19:18 Acetone, Qual Negative (NEGATIVE) L 04/16/18 08:10 Condition: Stable - Instructions Diet, Activity, Other Instructions: 6 small meals per day Reglan 10 mg 3 x day before meals Gastroperesis study outpatient Follow up with cardiology and GI outpatient within 2 weeks Repeat CMP on 04/23/18 to follow up on potassium levels Referrals: Harris Gross MD [Staff Physician] - Israel Samuel MD [Staff Physician] - Wei Lam MD [Staff Physician] - Disposition: [facility] FACILITY - Home Medications Comprehensive Discharge Medication List: Ambulatory Orders Atorvastatin Ca [Lipitor] 20 mg PO HS tablet 02/27/18 Docusate Sodium [Colace -] 100 mg PO BID capsule 03/25/18 Lidocaine Patch Removal [Lidoderm Patch Removal] 1 each MC DAILY@2200 #30 each 03/25/18 Nystatin Powder [Nystop Powder -] 1 applic TP DAILY #1 bottle 03/25/18 Ondansetron [Zofran Odt -] 4 mg SL Q8H #30 tab.rapdis 03/25/18 Acetaminophen [Tylenol .Regular Strength -] 650 mg PO Q6H PRN tablet 04/03/18 Apixaban [Eliquis -] 2.5 mg PO BID tablet 04/03/18 Isosorbide Mononitrate [Imdur -] 30 mg PO DAILY tab.sr.24h 04/03/18 Metoprolol Tartrate [Lopressor -] 50 mg PO BID tablet 04/03/18 Pantoprazole Sodium [Protonix -] 40 mg PO BID #60 tablet.ec 04/03/18 Sennosides [Senna -] 2 tab PO HS tablet 04/03/18 Sulfacetamide Sodium 10% [Bleph-10 Ophthalmic Solution -] 1 drop OS Q3H drops 04/03/18 Albuterol 2.5/Ipratropium 0.5 [Duoneb -] 1 amp NEB Q6H amp 04/14/18 Insulin (Levemir) [Levemir Vial] 15 units SQ AM units 04/14/18 Lidocaine Patch Removal [Lidoderm Patch Removal] 1 each MC DAILY@2200 each 03/21 Levothyroxine [Synthroid -] 100 mcg PO DAILY@0700 04/16/18 Acetaminophen [Tylenol .Regular Strength -] 650 mg PO Q6H PRN tablet 04/21/18 Escitalopram Oxalate [Lexapro -] 5 mg PO DAILY tablet 04/21/18 Metoclopramide HCl [Reglan -] 10 mg PO TIDAC tablet 04/21/18 Ondansetron [Zofran -] 4 mg PO Q8H PRN tablet 04/21/18 Polyethylene Glycol 3350 [Miralax 119 gm Btl -] 17 gm PO BID #0 bottle 04/21/18 Potassium Chloride 40 meq PO DAILY #60 tablet.er 04/21/18
[2018-04-21] MEDS: KCL 10 MEQ IVPB 10 MEQ/100 ML INFUS.BAG IVPB SCH ×2 (10:51→13:51)
[2018-04-21] MEDS: POLYETHYLENE GLYCOL 3350 119 GM BTL PO SCH (10:52)
[2018-04-21 14:56] VITALS: BP 156/70; PULSE 60; TEMP 98.1
== END 2018-04-21 18:43 | DRG 74 ==
LOC: JER 05:45 → INTOOBSV 15:37 → JERBED 15:37 → J7W 20:15 → JERBED 04-17 20:30 → J7W 04-17 20:31 → OBSVTOIN 04-19 09:54 → J7W 04-19 13:53
PROVIDERS: ADMIT Family Medicine; ATTEND Family Medicine
DX: E11.43 Type 2 diabetes mellitus with diabetic autonomic (poly)neuropathy (principal); Z68.41 Body mass index [BMI] 40.0-44.9, adult; I50.30 Unspecified diastolic (congestive) heart failure; G43.A1 Cyclical vomiting, in migraine, intractable; K31.84 Gastroparesis; I11.0 Hypertensive heart disease with heart failure; R10.84 Generalized abdominal pain; E03.9 Hypothyroidism, unspecified; I48.0 Paroxysmal atrial fibrillation; J44.9 Chronic obstructive pulmonary disease, unspecified; S09.90XA Unspecified injury of head, initial encounter; R62.7 Adult failure to thrive; W19.XXXA Unspecified fall, initial encounter; Y93.9 Activity, unspecified; Y92.89 Other specified places as the place of occurrence of the external cause; Y99.9 Unspecified external cause status; E66.01 Morbid (severe) obesity due to excess calories; E11.65 Type 2 diabetes mellitus with hyperglycemia
CPT/HCPCS: 36415; 70450-TC; 71045-TC-FY; 80048; 80053; 81003; 81015; 82009; 82378; 82550; 82803; 82962; 83690; 84484; 85025; 85027; 85610; 86301; 93005; 93010; 97116-GP; 97162-GP; 99284-25; G0378

== ENCOUNTER 2018-05-03 17:55 | Inpatient (IN) | payer OTHER ==
--- NOTE | 2018-05-03 18:16 | PDOC ---
History of Present Illness - General Chief Complaint: Nausea/Vomiting Stated Complaint: VOMITING Time Seen by Provider: 05/03/18 18:16 - History of Present Illness Initial Comments: 87 year old female with PMH of HTN, DMII, Gastroparesis, CAD, NSTEMI, Paroxysmal A-fib (on Eliquis), CHF ( EF 65 % 01/2018, on Lasix), lung nodule on CT Chest, hypothyrodism BIBA s/p lightheadedness, and falls presenting with nausea/vomting and lack of bowel movemtns for the past two days. According to [place] records they have been gicing her zofran Q8 hours PRN for her nausea. NO fevers, chills, diarrhea. There was question of dark red vomit but none during our interview. 05/03/18 18:32 Past History - Past Medical History Allergies/Adverse Reactions: Allergies Allergy/AdvReac Type Severity Reaction Status Date / Time vancomycin AdvReac Itching Verified 04/16/18 05:54 Home Medications: Ambulatory Orders Atorvastatin Ca [Lipitor] 20 mg PO HS tablet 02/27/18 Docusate Sodium [Colace -] 100 mg PO BID capsule 03/25/18 Nystatin Powder [Nystop Powder -] 1 applic TP DAILY #1 bottle 03/25/18 Acetaminophen [Tylenol .Regular Strength -] 650 mg PO Q6H PRN tablet 04/03/18 Apixaban [Eliquis -] 2.5 mg PO BID tablet 04/03/18 Isosorbide Mononitrate [Imdur -] 30 mg PO DAILY tab.sr.24h 04/03/18 Metoprolol Tartrate [Lopressor -] 50 mg PO BID tablet 04/03/18 Sennosides [Senna -] 2 tab PO HS tablet 04/03/18 Sulfacetamide Sodium 10% [Bleph-10 Ophthalmic Solution -] 1 drop OS Q3H drops 04/03/18 Albuterol 2.5/Ipratropium 0.5 [Duoneb -] 1 amp NEB Q6H amp 04/14/18 Insulin (Levemir) [Levemir Vial] 15 units SQ AM units 04/14/18 Levothyroxine [Synthroid -] 100 mcg PO DAILY@0700 04/16/18 Escitalopram Oxalate [Lexapro -] 5 mg PO DAILY tablet 04/21/18 Metoclopramide HCl [Reglan -] 10 mg PO TIDAC tablet 04/21/18 Ondansetron [Zofran -] 4 mg PO Q8H PRN tablet 04/21/18 Polyethylene Glycol 3350 [Miralax 119 gm Btl -] 17 gm PO BID #0 bottle 04/21/18 Potassium Chloride 40 meq PO DAILY #60 tablet.er 04/21/18 Insulin Aspart [Novolog] 100 unit SQ Q6H PRN 05/03/18 Omeprazole 40 mg PO DAILY 05/03/18 Sitagliptin Phosphate [Januvia -] 50 mg PO DAILY 05/03/18 Anemia: No Asthma: Yes Cancer: Yes (SKIN) Cardiac Disorders: Yes (MITRAL VALVE PROLAPSE,AFIB,CAD) CVA: No COPD: Yes CHF: Yes Dementia: Yes (early onset) Diabetes: Yes GI Disorders: Yes Disorders: No HTN: Yes Hypercholesterolemia: Yes Liver Disease: Yes (FATTY LIVER) Seizures: No Thyroid Disease: Yes - Surgical History Abdominal Surgery: Yes Cholecystectomy: Yes - Suicide/Smoking/Psychosocial Hx Smoking Status: Yes Smoking History: Unknown if ever smoked Have you smoked in the past 12 months: No Number of Cigarettes Smoked Daily: 0 If you are a former smoker, when did you quit?: 1985 Cigars Per Day: 0 Information on smoking cessation initiated: No Hx Alcohol Use: No Drug/Substance Use Hx: No Substance Use Type: None Hx Substance Use Treatment: Yes Review of Systems - Review of Systems Constitutional: No: Chills, Diaphoresis HEENTM: No: Eye Pain, Blurred Vision Respiratory: No: Cough, Orthopnea, Shortness of Breath Cardiac (ROS): No: Chest Pain, Edema, Irregular Heart Rate ABD/GI: Yes: Nausea, Vomiting : No: Burning, Dysuria Musculoskeletal: No: Back Pain, Muscle Weakness Integumentary: No: Bruising, Change in Color Neurological: No: Headache, Numbness, Weakness Psychiatric: No: Anxiety, Depression Hematologic/Lymphatic: No: Anemia, Blood Clots, Easy Bruising *Physical Exam - Vital Signs Last Vital Signs Temp Pulse Resp BP Pulse Ox 98.5 F 75 18 161/95 94 L 05/03/18 18:11 05/03/18 18:11 05/03/18 18:11 05/03/18 18:11 05/03/18 18:11 - Physical Exam General Appearance: Yes: Nourished, Appropriately Dressed, Apparent Distress, Mild Distress HEENT: positive: EOMI, PREETI. negative: Normal ENT Inspection (dried vomiti at the margins of her mouth) Neck: positive: Trachea midline, Normal Thyroid, Supple. negative: Tender, Rigid Respiratory/Chest: positive: Lungs Clear, Normal Breath Sounds. negative: Chest Tender, Respiratory Distress, Accessory Muscle Use Cardiovascular: positive: Regular Rhythm, Regular Rate Gastrointestinal/Abdominal: positive: Tender, Flat, Soft. negative: Normal Bowel Sounds (hyperactive) Musculoskeletal: positive: Normal Inspection Extremity: positive: Normal Capillary Refill, Normal Inspection, Normal Range of Motion. negative: Tender Integumentary: positive: Normal Color, Dry, Warm Neurologic: positive: Fully Oriented, Alert, Normal Mood/Affect, Normal Response , Motor Strength 5/5 Moderate Sedation - Procedure Monitoring Vital Signs: Procedure Monitoring Vital Signs Temperature 98.5 F 05/03/18 18:11 Pulse Rate 75 05/03/18 18:11 Respiratory Rate 18 05/03/18 18:11 Blood Pressure 161/95 05/03/18 18:11 O2 Sat by Pulse Oximetry (%) 94 L 05/03/18 18:11 ED Treatment Course - LABORATORY CBC & Chemistry Diagram: 05/05/18 11:13 05/05/18 11:13 Medical Decision Making - Medical Decision Making 87 year female with PMH of gastroparesies presenting with nausea, vomiting, and lack of BMs for the past two days. Vomit was non bloody but was bilious. SHe was decompressed with an NG tube and CT abdomen pelvis was performed. Her labs were WNL but EKG demonstrated rat 76, MD 200, QRS 90, QTc 513 and new q vs deep s wave in lead II (old q waves in III, with S in V1, V2, and V3). Patient signed out pending final read. 05/03/18 20:27 *DC/Admit/Observation/Transfer Diagnosis at time of Disposition: Abdominal pain Qualifiers: Abdominal location: generalized Qualified Code(s): R10.84 - Generalized abdominal pain - Discharge Dispostion Disposition: TRANSFER ACUTE CARE/OTHER HOSP Condition at time of disposition: Fair - Referrals - Patient Instructions - Post Discharge Activity
[2018-05-03] MEDS ORDERED: PANTOPRAZOLE SODIUM 40 MG VIAL IVPUSH ONE (18:26)
[2018-05-03] MEDS ORDERED: PANTOPRAZOLE SODIUM 40 MG VIAL ONE (18:30)
[2018-05-03 18:37] LABS: BASO % 0.3 % (0-2.0); EOS % 0.3 % (0-4.5); HEMATOCRIT 44.8 % (32.4-45.2); HEMOGLOBIN 15.2 GM/dL (10.7-15.3); LYMPH % 19.5 % (8-40); MCH 32.1 pg (25.7-33.7); MEAN CELL VOLUME 94.5 fl (80-96); MEAN PLT VOLUME 8.8 fl (7.5-11.1); MONO % 7.7 % (3.8-10.2); NEUT % 72.2 % (42.8-82.8); PLATELET COUNT 227 K/MM3 (134-434); RBC 4.74 M/mm3 (3.60-5.2); RDW 14.9 % (11.6-15.6); WHITE BLOOD COUNT 9.6 K/mm3 (4.0-10.0)
[2018-05-03 18:51] LABS: INR 1.08 (0.83-1.09); PROTHROMBIN TIME (PATIENT) 12.8 SEC (9.7-13.0)
[2018-05-03] MEDS ORDERED: SODIUM CHLORIDE 0.9% 500 ML INFUS.BAG IV ONE (19:09)
[2018-05-03 19:10] LABS: ALBUMIN 2.8 g/dl (3.4-5.0); ALK PHOS 78 U/L (45-117); ANION GAP 10 MMOL/L (8-16); BILIRUBIN,TOTAL 1.2 mg/dL (0.2-1); BLOOD UREA NITROGEN 9 mg/dL (7-18); CALCIUM 8.5 mg/dL (8.5-10.1); CHLORIDE 101 mmol/L (98-107); CO2 27 mmol/L (21-32); CREATININE 0.8 mg/dL (0.55-1.3); GLUCOSE,RANDOM 234 mg/dL (74-106); POTASSIUM 4.2 mmol/L (3.5-5.1); SGOT/AST 28 U/L (15-37); SGPT/ALT 17 U/L (13-61); SODIUM 138 mmol/L (136-145); TOT PROT 6.3 g/dl (6.4-8.2)
[2018-05-03] MEDS ORDERED: ACETAMINOPHEN 1000 MG/100 ML VIAL (NON FORMULARY) IVPB ONE (19:19)
--- NOTE | 2018-05-03 19:43 | PDOC ---
Attending Attestation - HPI HPI: 05/03/18 21:02 The patient is an 87 year old female with a significant past medical history of gastroparesis, DMII, HTN, CAD, NSTEMI, paroxysmal A-fib, CHF, lung nodule on CT chest, hypothyroidism, who was BIBA after episodes of falls associated with lightheadedness. The patient reports 2 days of nausea, vomiting, and irregular bowel movements prior to her fall today. Patient has been receiving zofran for her nausea, as per [place]. The patient denies chest pain, shortness of breath, headache and dizziness. Denies fever or chills. Denies dysuria, frequency, urgency and hematuria. Allergies: Vancomycin Social history: History of Tobacco use. PCP: Dr. Holcomb <Rosey Gaspar - Last Filed: 05/03/18 21:02> - Resident Resident Name: Glenn Wilson - ED Attending Attestation I have performed the following: I have examined & evaluated the patient, The case was reviewed & discussed with the resident, I agree w/resident's findings & plan, Exceptions are as noted - Physicial Exam PE: 05/03/18 22:08 Agree with exam as documented in resident note - Medical Decision Making 05/04/18 03:17 Initially concerned for GI obstruction, CT w/o acute blockage, possible resolving obstruction still with intractable n/v admit <Glenn Wilson - Last Filed: 05/04/18 03:19> Attestations - Attestations 05/03/18 21:03 Documentation prepared by Rosey Gaspar, acting as medical biller coder for Glenn Wilson MD. <Rosey Gaspar - Last Filed: 05/03/18 21:02>
[2018-05-03 19:55] LABS: AMYLASE 44 U/L (25-115); LIPASE 70 U/L (73-393)
[2018-05-03 20:06] LABS: PLATELET ESTIMATE ADEQUATE
[2018-05-03] MEDS ORDERED: ACETAMINOPHEN INJECTION 100 ML IVPB ONE (20:17)
--- NOTE | 2018-05-04 00:55 | PDOC ---
*Physical Exam - Vital Signs Last Vital Signs Temp Pulse Resp BP Pulse Ox 98.5 F 75 18 161/95 94 L 05/03/18 18:11 05/03/18 18:11 05/03/18 18:11 05/03/18 18:11 05/03/18 18:11 ED Treatment Course - LABORATORY CBC & Chemistry Diagram: 05/03/18 18:30 05/03/18 18:30 - ADDITIONAL ORDERS Additional order review: Laboratory Results 05/03/18 05/03/18 05/03/18 18:30 18:30 18:30 PT with INR 12.80 INR 1.08 Sodium Potassium Chloride Carbon Dioxide Anion Gap BUN Creatinine Creat Clearance w eGFR Random Glucose Lactic Acid 4.0 H* Calcium Total Bilirubin AST ALT Alkaline Phosphatase Troponin I Total Protein Albumin Total Amylase Lipase Blood Type A POSITIVE Antibody Screen Negative 05/03/18 18:30 PT with INR INR Sodium 138 Potassium 4.2 Chloride 101 Carbon Dioxide 27 Anion Gap 10 BUN 9 Creatinine 0.8 Creat Clearance w eGFR > 60 Random Glucose 234 H Lactic Acid Calcium 8.5 Total Bilirubin 1.2 H AST 28 ALT 17 Alkaline Phosphatase 78 Troponin I 0.02 Total Protein 6.3 L Albumin 2.8 L Total Amylase 44 Lipase 70 L Blood Type Antibody Screen 05/03/18 18:30 RBC 4.74 MCV 94.5 MCHC 34.0 RDW 14.9 MPV 8.8 D Neutrophils % 72.2 Lymphocytes % 19.5 D Monocytes % 7.7 Eosinophils % 0.3 Basophils % 0.3 - Medications Given in the ED: ED Medications Discontinued Medications Generic Name Dose Route Start Last Admin Trade Name Freq PRN Reason Stop Dose Admin Acetaminophen 1,000 mg 05/03/18 19:19 05/03/18 20:22 Ofirmev Injection - IVPB 05/03/18 19:20 1,000 mg ONCE ONE Administration Pantoprazole Sodium 40 mg 05/03/18 18:26 05/03/18 18:50 Protonix Iv IVPUSH 05/03/18 18:27 40 mg ONCE ONE Administration Sodium Chloride 1,000 ml 05/03/18 19:09 05/03/18 19:20 Normal Saline - IV 05/03/18 19:10 1,000 ml ONCE ONE Administration Medical Decision Making - Medical Decision Making 05/04/18 00:[address] Ali. Patient is 87 year old female with PMH of HTN, DMII, Gastroparesis, CAD, NSTEMI, Paroxysmal A-fib (on Eliquis), CHF ( EF 65 % 01/2018, on Lasix) with bowel obstruction vs gastroparesis. Lactate positive to four, given fluids. Labs otherwise unremarkable. S/p ng tube placement for vomiting. CT scan shows fluid distention with possible prior obstruction that recently resolved. Pending admission. 05/04/18 02:07 D/w Dr Fish. Accepted to m/s 05/04/18 02:08 Patient pulled ng tube, will place in restraints, replace. 05/04/18 02:59 Ng tube placed, green bilious fluid returned. *DC/Admit/Observation/Transfer Diagnosis at time of Disposition: Abdominal pain - Discharge Dispostion Condition at time of disposition: Stable Decision to Admit order: Yes - Referrals - Patient Instructions - Post Discharge Activity
--- NOTE | 2018-05-04 01:57 | HP ---
CHIEF COMPLAINT: N/V x 3 days, decreased BMs PCP: Dr. Holcomb HISTORY OF PRESENT ILLNESS: 87 y/o F from [facility] with PMH dementia, HTN, DM2, chronic gastroparesis, CAD, NSTEMI, paraoxysmal afib (on eliquis), CHF (EF 65% 2018), lung nodule CT chest, hypothyroid who presents to the ED with N/V, and decreased frequency BM over the past three days. Pt poor historian. States that during this time, she has had poor PO intake, multiple episodes of NBNB emesis, and no BM's. As per [place] paperwork, zofran q8h PRN was attempted, however pt continued to have N/V. For this reason, pt was brought to the ED for further evaluation. Currently, pt endorses generalized abdominal pain, as well as a diffuse HANSON. Denies fever, chills, SOB, chest pain or pressure, or changes in urinary function. Of note, pt was seen on a recent admission for N/V and seen by GI, rec cristina mota protonix as this was likely 2/2 chronic gastroparesis. At the time, she was not a surgical candidate and was recommended to have a gastric pacing procedure at a tertiary care center. EGD done earlier last month showed sliding hernia. Last A1c 8.7 in 2018. Lives at [facility], is unaware of whether she "uses a cane or not, or if she can walk." ER course was notable for: (1) IV tylenol (2) protonix 40mg IVP x 1 (3) NS 1 L Recent Travel: denies PAST MEDICAL HISTORY: as above PAST SURGICAL HISTORY: unable to obtain as above Social History: as above Smoking: denies Alcohol: Drugs: Family History: denies Allergies vancomycin Adverse Reaction (Verified 04/16/18 05:54) Itching 10/08/17 SUSPECTED ADR TO VANCOMYCIN. RX: ITCHING AND TONGUE SWELLING. BENADRYL 50 MG IVPUSH AND DECADRON 10 MG IVPUSH WERE GIVEN TO PT. PER JASON MILES AND ANITA'S NOTES PT EXPERIENCED AN ADR TO VANCO IN THE ER ON 10/08/17. HOME MEDICATIONS: Home Medications Medication Instructions Recorded Atorvastatin Ca [Lipitor] 20 mg PO HS tablet 02/27/18 Docusate Sodium [Colace -] 100 mg PO BID capsule 03/25/18 Nystatin Powder [Nystop Powder -] 1 applic TP DAILY #1 bottle 03/25/18 Acetaminophen [Tylenol .Regular 650 mg PO Q6H PRN tablet 04/03/18 Strength -] Apixaban [Eliquis -] 2.5 mg PO BID tablet 04/03/18 Isosorbide Mononitrate [Imdur -] 30 mg PO DAILY tab.sr.24h 04/03/18 Metoprolol Tartrate [Lopressor -] 50 mg PO BID tablet 04/03/18 Sennosides [Senna -] 2 tab PO HS tablet 04/03/18 Sulfacetamide Sodium 10% [Bleph-10 1 drop OS Q3H drops 04/03/18 Ophthalmic Solution -] Albuterol 2.5/Ipratropium 0.5 1 amp NEB Q6H amp 04/14/18 [Duoneb -] Insulin (Levemir) [Levemir Vial] 15 units SQ AM units 04/14/18 Levothyroxine [Synthroid -] 100 mcg PO DAILY@0700 04/16/18 Escitalopram Oxalate [Lexapro -] 5 mg PO DAILY tablet 04/21/18 Metoclopramide HCl [Reglan -] 10 mg PO TIDAC tablet 04/21/18 Ondansetron [Zofran -] 4 mg PO Q8H PRN tablet 04/21/18 Polyethylene Glycol 3350 [Miralax 17 gm PO BID #0 bottle 04/21/18 119 gm Btl -] Potassium Chloride 40 meq PO DAILY #60 tablet.er 04/21/18 Insulin Aspart [Novolog] 100 unit SQ Q6H PRN 05/03/18 Omeprazole 40 mg PO DAILY 05/03/18 Sitagliptin Phosphate [Januvia -] 50 mg PO DAILY 05/03/18 need to verify meds with [place] paperwork REVIEW OF SYSTEMS CONSTITUTIONAL: Absent: fever, chills, diaphoresis, generalized weakness, malaise, loss of appetite, weight change HEENT: Absent: rhinorrhea, nasal congestion, throat pain, throat swelling, difficulty swallowing, mouth swelling, ear pain, eye pain, visual changes CARDIOVASCULAR: Absent: chest pain, syncope, palpitations, irregular heart rate, lightheadedness , peripheral edema RESPIRATORY: Absent: cough, shortness of breath, dyspnea with exertion, orthopnea, wheezing, stridor, hemoptysis GASTROINTESTINAL: +abdominal pain, nausea, vomiting Absent: abdominal pain, abdominal distension, nausea, vomiting, diarrhea, constipation, melena, hematochezia GENITOURINARY: Absent: dysuria, frequency, urgency, hesitancy, hematuria, flank pain, genital pain MUSCULOSKELETAL: Absent: myalgia, arthralgia, joint swelling, back pain, neck pain SKIN: Absent: rash, itching, pallor HEMATOLOGIC/IMMUNOLOGIC: Absent: easy bleeding, easy bruising, lymphadenopathy, frequent infections ENDOCRINE: Absent: unexplained weight gain, unexplained weight loss, heat intolerance, cold intolerance NEUROLOGIC: Absent: headache, focal weakness or paresthesias, dizziness, unsteady gait, seizure, mental status changes, bladder or bowel incontinence PSYCHIATRIC: Absent: anxiety, depression, suicidal or homicidal ideation, hallucinations. PHYSICAL EXAMINATION Vital Signs - 24 hr 05/03/18 18:11 Temperature 98.5 F Pulse Rate 75 Respiratory 18 Rate Blood Pressure 161/95 O2 Sat by Pulse 94 L Oximetry (%) GENERAL: Sleepy. AAO x3 (self, place, president) in no acute distress HEAD: Normal with no signs of trauma. EYES: Pupils equal, round and reactive to light, extraocular movements intact, sclera anicteric, conjunctiva clear. EARS, NOSE, THROAT: Ears normal, nares patent, oropharynx clear without exudates. Dry MM NECK: Normal range of motion, supple LUNGS: Breath sounds equal, clear to auscultation bilaterally. No wheezes, and no crackles. No accessory muscle use. HEART: Regular rate and rhythm, normal S1 and S2 without murmur, rub or gallop. ABDOMEN: Soft, obese, +RLQ ttp, hypoactive bowel sounds, no guarding, no rebound LOWER EXTREMITIES: 2+ pulses, warm, well-perfused. No calf tenderness. No peripheral edema. NEUROLOGICAL: refused to participate however able to move UE, LE Laboratory Results - last 24 hr 05/03/18 05/03/18 05/03/18 18:30 18:30 18:30 WBC 9.6 RBC 4.74 Hgb 15.2 Hct 44.8 MCV 94.5 MCH 32.1 MCHC 34.0 RDW 14.9 Plt Count 227 D MPV 8.8 D Absolute Neuts (auto) 7.0 Neutrophils % 72.2 Neutrophils % (Manual) 80.0 Lymphocytes % 19.5 D Lymphocytes % (Manual) 15.0 Monocytes % 7.7 Monocytes % (Manual) 3 L Eosinophils % 0.3 Basophils % 0.3 Nucleated RBC % 0 Platelet Estimate Adequate Platelet Comment No clumping noted PT with INR INR Sodium 138 Potassium 4.2 Chloride 101 Carbon Dioxide 27 Anion Gap 10 BUN 9 Creatinine 0.8 Creat Clearance w eGFR > 60 Random Glucose 234 H Lactic Acid 4.0 H* Calcium 8.5 Total Bilirubin 1.2 H AST 28 ALT 17 Alkaline Phosphatase 78 Troponin I 0.02 Total Protein 6.3 L Albumin 2.8 L Total Amylase 44 Lipase 70 L CTAP: prelim read small air filled diverticula in gastric antrum either represent gastric ulcers or previous obstruction. await official read EKG: new q vs deep s wave in lead II (old q waves in III, with S in V1, V2, and V3) qtc 513ms ASSESSMENT/PLAN: 87 y/o F from [facility] with PMH dementia, HTN, DM2, chronic gastroparesis, CAD, NSTEMI, paraoxysmal afib (on eliquis), CHF (EF 65% 2018), lung nodule CT chest, hypothyroid who presents to the ED with N/V, and decreased frequency BM over the past three days. #Abdominal pain w/N/V likely 2/2 partial SBO, or gastroparesis -improved with NGT for decompression, CTAP prelim read shows possible resolved past obstruction -possible d/t partial SBO as with lactic/hypoperfusion. however less likely may be 2/2 mesenteric ischemia, lactic is improving -sx consult: Dr. Price. to assess if pt needs further intervention -may also be 2/2 tx resistant gastroparesis, has been following GI recs small meals, prokinetics, etc. needs gastric pacing at tertiary center -pain has been tx with IV tylenol. avoid NSAID's -c/w reglan, protonix -c/w gentle IVF; hx CHF -replete lytes as needed #DM2 -c/w ISS, BGM ACHS -f/u A1c #hx paraoxysmal afib -c/w eliquis -if procedure decided by sx, can hold accordingly #F/E/N IV NS 75 cc/hr- hx CHF continue to follow lytes NPO bowel rest #PPX on eliquis #Dispo admit to med/surg pending surgical evaluation Visit type - Emergency Visit Emergency Visit: Yes ED Registration Date: 05/03/18 Care time: The patient presented to the Emergency Department on the above date and was hospitalized for further evaluation of their emergent condition. - New Patient This patient is new to me today: Yes Date on this admission: 05/04/18 - Critical Care Critical Care patient: No
--- NOTE | 2018-05-04 02:18 | PN ---
Teaching Attending Note Name of Resident: Xiomara Fish ATTENDING PHYSICIAN STATEMENT I saw and evaluated the patient. I reviewed the resident's note and discussed the case with the resident. I agree with the resident's findings and plan as documented. SUBJECTIVE: Patient is an 87 year old woman, [place] resident with PMH of gastroparesis, Vancomycin allergy, NIDDM, HTN, CAD, NSTEMI, paroxysmal A-fib, CHF, lung nodule on CT chest, hypothyroidism, who presents after episodes of falls associated with lightheadedness. The patient reports 2 days of nausea, vomiting, and irregular bowel movements prior to her fall today. Patient has been receiving zofran for her nausea, as per [place]. She denies chest pain, shortness of breath, headache, fever, chills, dysuria, frequency or urgency. OBJECTIVE: Alert Vital Signs Period Temp Pulse Resp BP Sys/Gu Pulse Ox Last 24 Hr 98.5 F 75 18 161/95 94 HEENT: No Jaundice, eye redness or discharge, PERRLA, EOMI. Normocephalic, atraumatic. External ears are normal and hearing is grossly intact. No nasal discharge. Neck: Supple, nontender. No palpable adenopathy or thyromegaly. No JVD Chest: Good effort. Clear to auscultation and percussion. Heart: Regular. No S3, rub or murmur Abdomen: Not distended, soft, tender RLQ and no HSM. No rebound or guarding. Normoactive bowel sounds. Ext: Peripheral pulses intact. No leg edema. Skin: Warm and dry. No petechiae, rash or ecchymosis. Neuro: Alert. Oriented x3. CN 2-12 grossly intact. Sensation grossly intact in all four extremities and DTR are symmetric. Home Medications Medication Instructions Recorded Atorvastatin Ca [Lipitor] 20 mg PO HS tablet 02/27/18 Docusate Sodium [Colace -] 100 mg PO BID capsule 03/25/18 Nystatin Powder [Nystop Powder -] 1 applic TP DAILY #1 bottle 03/25/18 Acetaminophen [Tylenol .Regular 650 mg PO Q6H PRN tablet 04/03/18 Strength -] Apixaban [Eliquis -] 2.5 mg PO BID tablet 04/03/18 Isosorbide Mononitrate [Imdur -] 30 mg PO DAILY tab.sr.24h 04/03/18 Metoprolol Tartrate [Lopressor -] 50 mg PO BID tablet 04/03/18 Sennosides [Senna -] 2 tab PO HS tablet 04/03/18 Sulfacetamide Sodium 10% [Bleph-10 1 drop OS Q3H drops 04/03/18 Ophthalmic Solution -] Albuterol 2.5/Ipratropium 0.5 1 amp NEB Q6H amp 04/14/18 [Duoneb -] Insulin (Levemir) [Levemir Vial] 15 units SQ AM units 04/14/18 Levothyroxine [Synthroid -] 100 mcg PO DAILY@0700 04/16/18 Escitalopram Oxalate [Lexapro -] 5 mg PO DAILY tablet 04/21/18 Metoclopramide HCl [Reglan -] 10 mg PO TIDAC tablet 04/21/18 Ondansetron [Zofran -] 4 mg PO Q8H PRN tablet 04/21/18 Polyethylene Glycol 3350 [Miralax 17 gm PO BID #0 bottle 04/21/18 119 gm Btl -] Potassium Chloride 40 meq PO DAILY #60 tablet.er 04/21/18 Insulin Aspart [Novolog] 100 unit SQ Q6H PRN 05/03/18 Omeprazole 40 mg PO DAILY 05/03/18 Sitagliptin Phosphate [Januvia -] 50 mg PO DAILY 05/03/18 Abnormal Lab Results 05/03/18 05/03/18 05/03/18 18:30 18:30 18:30 Monocytes % (Manual) 3 L Random Glucose 234 H Lactic Acid 4.0 H* Total Bilirubin 1.2 H Total Protein 6.3 L Albumin 2.8 L Lipase 70 L ASSESSMENT AND PLAN: 1. Abdominal pain/vomiting - CT abdomen does not show any obvious evidence of bowel obstruction. Feeling a little better after NGT placement and suction of fluids. Gastroparesis vs partial SBO is likley culprit. Lactic acidosis is unexplained but concerning for bowel ischemia/necrosis. Will repeat lactic acid stat, get UA and continue gentle IVF. Surgery consulted. Give enema. Continue Eliquis for AFib. Further clarification reveals that "falls" were before her last admission and had been investigated. 2. Hypoalbuminemia - Possibly due to combined effects of malnutrition and inflammation associated with comorbid chronic conditions. Will ensure adequate dietary protein intake and also consult cage loader. 3. Uncontrolled DM - For now, we will hold the home diabetes drugs and implement sliding scale insulin regimen. Provide comprehensive diabetes care with patient teaching and counseling about the importance of euglycemia, eye care and foot care. 4. Morbid Obesity - Will provide patient all the necessary assistance, counseling and positive reinforcement to facilitate weight loss. Consult cage loader. 5. Uncontrolled Hypertension - Restart home antihypertensive drugs to ultimately attain normotension. Nonpharmacologic measures to control hypertension like weight loss, salt restriction and exercise discussed. 6. DVT prophylaxis - On Eliquis 7. Advance directives - Full code
[2018-05-04] MEDS ORDERED: ACETAMINOPHEN 1000 MG/100 ML VIAL (NON FORMULARY) IVPB ONE ×3 (04:17→21:10)
[2018-05-04] MEDS: SODIUM CHLORIDE 1,000 ML IV SCH (04:31)
[2018-05-04] MEDS: INSULIN SLIDING SCALE (NOVOLOG) 1 VIAL SQ SCH ×4 (06:01→21:59)
[2018-05-04] MEDS ORDERED: METOCLOPRAMIDE HCL 10 MG TABLET (FP) PO SCH (07:00)
[2018-05-04 07:48] LABS: BASO % 0.2 % (0-2.0); EOS % 0.1 % (0-4.5); HEMATOCRIT 39.6 % (32.4-45.2); HEMOGLOBIN 13.4 GM/dL (10.7-15.3); LYMPH % 14.5 % (8-40); MCH 31.3 pg (25.7-33.7); MCHC 33.7 g/dl (32.0-36.0); MEAN CELL VOLUME 92.8 fl (80-96); MEAN PLT VOLUME 8.7 fl (7.5-11.1); MONO % 7.4 % (3.8-10.2); NEUT % 77.8 % (42.8-82.8); PLATELET COUNT 199 K/MM3 (134-434); RBC 4.27 M/mm3 (3.60-5.2); RDW 14.8 % (11.6-15.6); WHITE BLOOD COUNT 11.1 K/mm3 (4.0-10.0)
[2018-05-04 08:16] LABS: ALBUMIN 2.6 g/dl (3.4-5.0); ALK PHOS 72 U/L (45-117); ANION GAP 10 MMOL/L (8-16); BILIRUBIN,TOTAL 1.2 mg/dL (0.2-1); BLOOD UREA NITROGEN 7 mg/dL (7-18); CALCIUM 8.6 mg/dL (8.5-10.1); CHLORIDE 101 mmol/L (98-107); CO2 27 mmol/L (21-32); CREATININE 0.5 mg/dL (0.55-1.3); GLUCOSE,RANDOM 209 mg/dL (74-106); MAGNESIUM 2.2 mg/dL (1.8-2.4); PHOSPHOROUS 3.2 mg/dL (2.5-4.9); POTASSIUM 3.3 mmol/L (3.5-5.1); SGOT/AST 14 U/L (15-37); SGPT/ALT 17 U/L (13-61); SODIUM 138 mmol/L (136-145); TOT PROT 5.8 g/dl (6.4-8.2)
[2018-05-04 08:17] LABS: INR 1.11 (0.83-1.09); PROTHROMBIN TIME (PATIENT) 13.1 SEC (9.7-13.0)
[2018-05-04] MEDS: APIXABAN 2.5 MG TABLET PO SCH ×2 (09:41→21:59)
[2018-05-04] MEDS ORDERED: PANTOPRAZOLE 40 MG TABLET (FP) PO SCH (10:00)
[2018-05-04] MEDS ORDERED: METOPROLOL TARTRATE 5 MG/5 ML VIAL IVPB PRN (11:33)
--- NOTE | 2018-05-04 11:39 | PN ---
Progress Note, Physician Chief Complaint: patient seen and examined patient vomitted earlier today iv potassium ordered - Current Medication List Current Medications: Active Medications Apixaban (Eliquis -) 2.5 mg PO BID [facility] Last Admin: 05/04/18 09:41 Dose: 2.5 mg Sodium Chloride (Normal Saline -) 1,000 mls @ 75 mls/hr IV ASDIR [facility] Last Admin: 05/04/18 04:31 Dose: 75 mls/hr Potassium Chloride (Potassium Chloride 10 Meq Premix Ivpb -) 10 meq in 100 mls @ 100 mls/hr IVPB Q60M [facility] Stop: 05/04/18 14:44 Insulin Aspart (Novolog Vial Sliding Scale -) 1 vial SQ ACHS [facility]; Protocol Last Admin: 05/04/18 11:22 Dose: Not Given Metoclopramide HCl (Reglan Injection -) 10 mg IVPUSH Q8H PRN PRN Reason: NAUSEA AND/OR VOMITING Metoprolol Tartrate (Lopressor Injection -) 5 mg IVPUSH Q4H PRN PRN Reason: HYPERTENSION Pantoprazole Sodium (Protonix Iv) 40 mg IVPUSH DAILY [facility] - Objective Vital Signs: Vital Signs Temperature 98.5 F 05/04/18 09:00 Pulse Rate 79 05/04/18 09:00 Respiratory Rate 20 05/04/18 09:00 Blood Pressure 158/75 05/04/18 09:00 O2 Sat by Pulse Oximetry (%) 98 05/04/18 08:57 Constitutional: Yes: Calm Cardiovascular: Yes: Regular Rate and Rhythm, S1, S2 Respiratory: Yes: CTA Bilaterally Gastrointestinal: Yes: Normal Bowel Sounds, Soft Labs: CBC, BMP 05/04/18 06:00 05/04/18 06:00 INR, PTT INR 1.11 (0.83-1.09) H 05/04/18 06:00 Problem List - Problems (1) Nausea & vomiting Assessment/Plan: ivf protonix iv reglan iv gi and surgical consult ng tube for decompression Code(s): R11.2 - NAUSEA WITH VOMITING, UNSPECIFIED (2) Hypokalemia Assessment/Plan: iv potassium recheck in AM Code(s): E87.6 - HYPOKALEMIA (3) Afib Assessment/Plan: eliquis iv metoprolol prn Code(s): I48.91 - UNSPECIFIED ATRIAL FIBRILLATION
--- NOTE | 2018-05-04 11:58 | EKG ---
Test Reason : Blood Pressure : / mmHG Vent. Rate : 076 BPM Atrial Rate : 076 BPM P-R Int : 200 ms QRS Dur : 090 ms QT Int : 456 ms P-R-T Axes : 070 -06 072 degrees QTc Int : 513 ms SINUS RHYTHM WITH FREQUENT PREMATURE VENTRICULAR COMPLEXES CANNOT RULE OUT ANTERIOR INFARCT (CITED ON OR BEFORE 18-MAR-2018) PROLONGED QT ABNORMAL ECG WHEN COMPARED WITH ECG OF 16-APR-2018 08:50, PREMATURE VENTRICULAR COMPLEXES ARE NOW PRESENT PREMATURE ATRIAL COMPLEXES ARE NO LONGER PRESENT BORDERLINE CRITERIA FOR INFERIOR INFARCT ARE NO LONGER PRESENT NONSPECIFIC T WAVE ABNORMALITY, IMPROVED IN INFERIOR LEADS Confirmed by NYASIA MARQUEZ, ANA ([id number]) on 05/04/2018 11:57:42 AM Referred By: Confirmed By:ANA MURRELL MD
[2018-05-04] MEDS: KCL 10 MEQ IVPB 10 MEQ/100 ML INFUS.BAG IVPB SCH ×3 (12:28→16:05)
--- NOTE | 2018-05-04 16:07 | CONSULT ---
Consult Consult Specialty:: General Surgery Referred by:: Dr. Fish Reason for Consultation:: possible SBO - History of Present Illness Chief Complaint: pt does not offer - per chart, vomiting and abd pain History of Present Illness: Pt does not offer any verbal responses - history from chart only 87yo obese F with multiple medical problems including afib on Eliquis, poorly controlled DM on insulin with chronic gastroparesis, admitted from [facility] with N/V, anorexia, complaints of abdominal pain. In ER, wbc was normal, BUN/Cr mildly elevated, slightly down today; CT was done without contrast showing no evidence of obstruction, decompressed intestines, stool in colon, diverticulosis on left side without diverticulitis, and known hiatal hernia. Apparently, initial [facility] read suggested the possibility of some "previously resolved obstruction" (?) and NG was placed for emesis, which patient has pulled out and had replaced more than once. There is no record of copious output, but some green fluid documented. Surgery was asked to assess. She is NPO with IVF, but has Eliquis ordered to continue. She is seen and examined in bed on the floor, with nursing at bedside, with NGT and wrist restraints, moaning but not conversant. Pt does not open eyes hardly at all, but eventually was prompted to nod or shake to indicate pain/tenderness in abdomen on exam when asked in Ma[place]. She does not cooperate easily with exam. NG with scant output, clear in tubing. No BM yet per nurse. From H&P: "Of note, pt was seen on a recent admission for N/V and seen by GI, rec small meals, reglan, protonix as this was likely 2/2 chronic gastroparesis. At the time, she was not a surgical candidate and was recommended to have a gastric pacing procedure at a tertiary care center. 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 2011 dobut MIBI : no STs; moderate reversible defect anterior and lateral faith confounded by large breast shadow; nl EF -> pt didn't follow as outpt as planned (was on DATP for a little while). Echo 09/13: nl LVEF, nl RV, nl valve fxn), HTN, Hyperlipdemia Pulmonary: Yes: COPD Gastrointestinal: Yes: Constipation, Hiatal Hernia, Other (gastroparesis, morbid obesity) Reproductive: Yes: Fibroids, Postmenopausal Endocrine: Yes: Diabetes Mellitus (insulin-dependent for years -> uncontrolled) , Hypothyroidism Dermatology: Yes: Cellulitis (in past, with chronic and intermittent edema) - Past Surgical History Past Surgical History: Yes: Cholecystectomy, Stent (coronary stents), Upper Endoscopy Additional Surgical History: D&C's; additional unknown - Alcohol/Substance Use Hx Alcohol Use: No History of Substance Use: reports: None - Smoking History Smoking history: Former smoker Have you smoked in the past 12 months: No If you are a former smoker, when did you quit?: 1984 - Social History Usual Living Arrangement: Fpc ADL: Family Assistance History of Recent Travel: No Home Medications - Allergies Allergies/Adverse Reactions: Allergies Allergy/AdvReac Type Severity Reaction Status Date / Time vancomycin AdvReac Itching Verified 04/16/18 05:54 - Home Medications Home Medications: Ambulatory Orders Atorvastatin Ca [Lipitor] 20 mg PO HS tablet 02/27/18 Docusate Sodium [Colace -] 100 mg PO BID capsule 03/25/18 Nystatin Powder [Nystop Powder -] 1 applic TP DAILY #1 bottle 03/25/18 Acetaminophen [Tylenol .Regular Strength -] 650 mg PO Q6H PRN tablet 04/03/18 Apixaban [Eliquis -] 2.5 mg PO BID tablet 04/03/18 Isosorbide Mononitrate [Imdur -] 30 mg PO DAILY tab.sr.24h 04/03/18 Metoprolol Tartrate [Lopressor -] 50 mg PO BID tablet 04/03/18 Sennosides [Senna -] 2 tab PO HS tablet 04/03/18 Sulfacetamide Sodium 10% [Bleph-10 Ophthalmic Solution -] 1 drop OS Q3H drops 04/03/18 Albuterol 2.5/Ipratropium 0.5 [Duoneb -] 1 amp NEB Q6H amp 04/14/18 Insulin (Levemir) [Levemir Vial] 15 units SQ AM units 04/14/18 Levothyroxine [Synthroid -] 100 mcg PO DAILY@0700 04/16/18 Escitalopram Oxalate [Lexapro -] 5 mg PO DAILY tablet 04/21/18 Metoclopramide HCl [Reglan -] 10 mg PO TIDAC tablet 04/21/18 Ondansetron [Zofran -] 4 mg PO Q8H PRN tablet 04/21/18 Polyethylene Glycol 3350 [Miralax 119 gm Btl -] 17 gm PO BID #0 bottle 04/21/18 Potassium Chloride 40 meq PO DAILY #60 tablet.er 04/21/18 Insulin Aspart [Novolog] 100 unit SQ Q6H PRN 05/03/18 Omeprazole 40 mg PO DAILY 05/03/18 Sitagliptin Phosphate [Januvia -] 50 mg PO DAILY 05/03/18 Family Disease History - Family Disease History Family Disease History: Diabetes: Daughter Review of Systems Unable to obtain ROS, reason: pt not answrg/chart only - Review of Systems Constitutional: reports: Loss of Appetite Gastrointestinal: reports: Abdominal Pain, Constipation, Nausea, Vomiting Physical Exam Vital Signs: Vital Signs Temperature 99.7 F H 05/04/18 14:41 Pulse Rate 101 H 05/04/18 14:41 Respiratory Rate 20 05/04/18 14:41 Blood Pressure 148/92 05/04/18 14:41 O2 Sat by Pulse Oximetry (%) 98 05/04/18 08:57 Constitutional: Yes: No Distress, Calm, Obese Eyes: Yes: Other (keeps eyes closed) HENT: Yes: Atraumatic, Normocephalic, Other (NG in place with scant clear output ) Neck: Yes: Supple, Trachea Midline Cardiovascular: Yes: Pulse Irregular. No: Bradycardia, Tachycardia Respiratory: Yes: Regular, CTA Bilaterally Gastrointestinal: Yes: Soft, Abdomen, Obese, Hypoactive Bowel Sounds, Tenderness (mild LUQ, LLQ, RLQ - pt nods to "dolor aqui?" except in RUQ, but no other physical reaction to palpation). No: Tenderness, Rebound (no rebound or guarding) ...Rectal Exam: Yes: Hemorrhoids/External, Sphincter Tone Normal, Other (scant soft yellow stool in vault) Renal/: Yes: Incontinence (wet diaper). No: Ricketts Present Musculoskeletal: No: Joint Stiffness, Joint Swelling Extremities: No: Cool, Cyanosis Edema: No Peripheral Pulses WNL: Yes Integumentary: Yes: Bruising (ecchymoses - L forearm, scattered other). No: Jaundice, Rash Neurological: Yes: Alert, Other (moaning, but not conversant - cannot currently assess orientation) Psychiatric: Yes: Alert. No: Agitated (per nurse, pulled out previous NGTs though; in wrist restraints) Labs: CBC, BMP 05/04/18 06:00 05/04/18 06:00 CMP Sodium 138 mmol/L (136-145) 05/04/18 06:00 Potassium 3.3 mmol/L (3.5-5.1) L 05/04/18 06:00 Chloride 101 mmol/L (98-107) 05/04/18 06:00 Carbon Dioxide 27 mmol/L (21-32) 05/04/18 06:00 Anion Gap 10 MMOL/L (8-16) 05/04/18 06:00 BUN 7 mg/dL (7-18) 05/04/18 06:00 Creatinine 0.5 mg/dL (0.55-1.3) L 05/04/18 06:00 Creat Clearance w eGFR > 60 (>60) 05/04/18 06:00 POC Glucometer 154 UNITS (80-120) 05/04/18 11:03 Random Glucose 209 mg/dL (74-106) H 05/04/18 06:00 Lactic Acid 1.4 mmol/L (0.4-2.0) 05/04/18 06:00 Calcium 8.6 mg/dL (8.5-10.1) 05/04/18 06:00 Phosphorus 3.2 mg/dL (2.5-4.9) 05/04/18 06:00 Magnesium 2.2 mg/dL (1.8-2.4) 05/04/18 06:00 Total Bilirubin 1.2 mg/dL (0.2-1) H 05/04/18 06:00 AST 14 U/L (15-37) L 05/04/18 06:00 ALT 17 U/L (13-61) 05/04/18 06:00 Alkaline Phosphatase 72 U/L (45-117) 05/04/18 06:00 Troponin I 0.02 ng/ml (0.00-0.05) 05/03/18 18:30 Total Protein 5.8 g/dl (6.4-8.2) L 05/04/18 06:00 Albumin 2.6 g/dl (3.4-5.0) L 05/04/18 06:00 Total Amylase 44 U/L (25-115) 05/03/18 18:30 Lipase 70 U/L (73-393) L 05/03/18 18:30 INR, PTT INR 1.11 (0.83-1.09) H 05/04/18 06:00 K down today Imaging - Results Cat Scan: Report Reviewed, Image Reviewed (images reviewed - large calcified fibroid in uterus, absent gallbladder, + hiatal hernia, no enteral contrast but no dilated bowels, no evidence of obstruction small or large bowel, + stool in colon, + diverticulosis left colon but no diverticulitis, stomach not grossly dilated) Problem List - Problems (1) Gastroparesis due to DM Assessment/Plan: admitted to medicine IV fluids and NPO except Eliquis, but with NGT in place no evidence of bowel obstruction on CT h/o chronic gastroparesis secondary to DM (poorly controlled) per chart, was to be considered for gastric pacemaker at tertiary center after last admission Reglan, small/frequent portions, Protonix, dietary recommendations as per last admission GI also consulted to see NG may help with emesis, but if pt removes it again, would probably not replace given no evidence of obstruction needs glucose control electrolyte replacement/correction to keep in normal ranges would add K+ to fluids trend labs dulcolax or senna-based bowel regimen to increase colon motility stool softeners will NOT facilitate evacuation - very soft/mushy stool can be more difficult to eliminate than formed stool no acute surgical issues identified Thank you for the opportunity to participate in the care of this patient. will sign off - please call with any questions Code(s): E11.43 - TYPE 2 DIABETES W DIABETIC AUTONOMIC (POLY)NEUROPATHY; K31.84 - GASTROPARESIS (2) Nausea & vomiting Code(s): R11.2 - NAUSEA WITH VOMITING, UNSPECIFIED Qualifiers: Vomiting type: unspecified Vomiting Intractability: non-intractable Qualified Code(s): R11.2 - Nausea with vomiting, unspecified (3) Abdominal pain Code(s): R10.9 - UNSPECIFIED ABDOMINAL PAIN Qualifiers: Abdominal location: generalized Qualified Code(s): R10.84 - Generalized abdominal pain (4) Hypokalemia Code(s): E87.6 - HYPOKALEMIA (5) Constipation Code(s): K59.00 - CONSTIPATION, UNSPECIFIED Qualifiers: Constipation type: unspecified constipation type Qualified Code(s): K59.00 - Constipation, unspecified (6) Afib Code(s): I48.91 - UNSPECIFIED ATRIAL FIBRILLATION Qualifiers: Atrial fibrillation type: paroxysmal Qualified Code(s): I48.0 - Paroxysmal atrial fibrillation (7) Morbid obesity with BMI of 40.0-44.9, adult Code(s): E66.01 - MORBID (SEVERE) OBESITY DUE TO EXCESS CALORIES; Z68.41 - BODY MASS INDEX (BMI) 40.0-44.9, ADULT
[2018-05-04] MEDS: METOCLOPRAMIDE HCL INJECTION 10 MG/2 ML VIAL IVPUSH PRN (17:26)
[2018-05-04] MEDS: POLYETHYLENE GLYCOL 3350 119 GM BTL PO SCH (17:40)
[2018-05-04] MEDS: DOCUSATE SODIUM 100 MG CAPSULE (FP) PO SCH (21:59)
[2018-05-04] MEDS ORDERED: SENNOSIDES 8.6MG TABLET (FP) PO SCH (22:00)
[2018-05-05] MEDS: SODIUM CHLORIDE 1,000 ML IV SCH (02:47)
[2018-05-05] MEDS: DOCUSATE SODIUM 100 MG CAPSULE (FP) PO SCH ×2 (06:33→13:55)
[2018-05-05] MEDS: INSULIN SLIDING SCALE (NOVOLOG) 1 VIAL SQ SCH ×2 (06:34→11:29)
[2018-05-05] MEDS: METOCLOPRAMIDE HCL INJECTION 10 MG/2 ML VIAL IVPUSH PRN (06:34)
[2018-05-05] MEDS: APIXABAN 2.5 MG TABLET PO SCH (09:57)
[2018-05-05] MEDS: POLYETHYLENE GLYCOL 3350 119 GM BTL PO SCH (09:57)
[2018-05-05] MEDS ORDERED: PANTOPRAZOLE SODIUM 40 MG VIAL IVPUSH SCH (10:00)
[2018-05-05] MEDS ORDERED: INSULIN (NOVOLOG) ASPART 100 UNITS/ML 10ML VIAL ONE (11:16)
[2018-05-05 11:53] LABS: BASO % 0.4 % (0-2.0); EOS % 0.2 % (0-4.5); HEMATOCRIT 40.6 % (32.4-45.2); HEMOGLOBIN 13.7 GM/dL (10.7-15.3); LYMPH % 20.4 % (8-40); MCHC 33.6 g/dl (32.0-36.0); MEAN CELL VOLUME 95.1 fl (80-96); MEAN PLT VOLUME 8.8 fl (7.5-11.1); MONO % 8.4 % (3.8-10.2); NEUT % 70.6 % (42.8-82.8); PLATELET COUNT 168 K/MM3 (134-434); RBC 4.27 M/mm3 (3.60-5.2); RDW 15.3 % (11.6-15.6); WHITE BLOOD COUNT 7.3 K/mm3 (4.0-10.0)
[2018-05-05 12:25] LABS: ALBUMIN 2.3 g/dl (3.4-5.0); ALK PHOS 64 U/L (45-117); ANION GAP 12 MMOL/L (8-16); BILIRUBIN,TOTAL 1.3 mg/dL (0.2-1); BLOOD UREA NITROGEN 7 mg/dL (7-18); CALCIUM 7.7 mg/dL (8.5-10.1); CHLORIDE 104 mmol/L (98-107); CO2 24 mmol/L (21-32); CREATININE 0.6 mg/dL (0.55-1.3); GLUCOSE,RANDOM 229 mg/dL (74-106); MAGNESIUM 1.9 mg/dL (1.8-2.4); POTASSIUM 3.7 mmol/L (3.5-5.1); SGOT/AST 17 U/L (15-37); SGPT/ALT 12 U/L (13-61); SODIUM 140 mmol/L (136-145); TOT PROT 5.2 g/dl (6.4-8.2)
--- NOTE | 2018-05-05 13:28 | PN ---
Progress Note, Physician Chief Complaint: LETHARGIC IN BED EVENTS AND NOTES REVIEWED - Current Medication List Current Medications: Active Medications Apixaban (Eliquis -) 2.5 mg PO BID [facility] Last Admin: 05/05/18 09:57 Dose: 2.5 mg Docusate Sodium (Colace -) 200 mg PO TID [facility] Last Admin: 05/05/18 06:33 Dose: 200 mg Sodium Chloride (Normal Saline -) 1,000 mls @ 75 mls/hr IV ASDIR [facility] Last Admin: 05/05/18 02:47 Dose: 75 mls/hr Insulin Aspart (Novolog Vial Sliding Scale -) 1 vial SQ ACHS [facility]; Protocol Last Admin: 05/05/18 11:29 Dose: 4 units Metoclopramide HCl (Reglan Injection -) 10 mg IVPUSH Q8H LEXI Metoprolol Tartrate (Lopressor Injection -) 5 mg IVPB Q4H PRN PRN Reason: HYPERTENSION Pantoprazole Sodium (Protonix Iv) 40 mg IVPUSH DAILY [facility] Last Admin: 05/05/18 09:58 Dose: 40 mg Polyethylene Glycol (Miralax (For Daily Use) -) 17 gm PO DAILY [facility] Last Admin: 05/05/18 09:57 Dose: 17 gm Senna (Senna -) 2 tab PO HS [facility] Last Admin: 05/04/18 21:59 Dose: 2 tab - Objective Vital Signs: Vital Signs Temperature 98.3 F 05/05/18 09:55 Pulse Rate 107 H 05/05/18 09:55 Respiratory Rate 20 05/05/18 09:55 Blood Pressure 158/102 H 05/05/18 09:55 O2 Sat by Pulse Oximetry (%) 97 05/04/18 21:00 Constitutional: Yes: Other Eyes: Yes: WNL HENT: Yes: WNL Neck: Yes: WNL Cardiovascular: Yes: Regular Rate and Rhythm Respiratory: Yes: Diminished Gastrointestinal: Yes: Soft, Abdomen, Obese, Other (NON-TENDER SOFT OBESE ABDOMEN +BS) Genitourinary: Yes: Incontinence Musculoskeletal: Yes: Muscle Weakness Extremities: Yes: Other Edema: Yes Edema: LLE: Trace, RLE: Trace Peripheral Pulses WNL: Yes Integumentary: Yes: Rash Wound/Incision: Yes: Dressing Dry and Intact Neurological: Yes: Weakness, Other (LETHARGIC) Psychiatric: Yes: Other Labs: CBC, BMP 05/05/18 11:13 05/05/18 11:13 INR, PTT INR 1.11 (0.83-1.09) H 05/04/18 06:00 Problem List - Problems (1) Abdominal pain Code(s): R10.9 - UNSPECIFIED ABDOMINAL PAIN Qualifiers: Abdominal location: generalized Qualified Code(s): R10.84 - Generalized abdominal pain (2) Morbid obesity with BMI of 40.0-44.9, adult Code(s): E66.01 - MORBID (SEVERE) OBESITY DUE TO EXCESS CALORIES; Z68.41 - BODY MASS INDEX (BMI) 40.0-44.9, ADULT (3) Nausea & vomiting Code(s): R11.2 - NAUSEA WITH VOMITING, UNSPECIFIED Qualifiers: Vomiting type: unspecified Vomiting Intractability: non-intractable Qualified Code(s): R11.2 - Nausea with vomiting, unspecified (4) Acute metabolic encephalopathy Code(s): G93.41 - METABOLIC ENCEPHALOPATHY (5) Afib Code(s): I48.91 - UNSPECIFIED ATRIAL FIBRILLATION Qualifiers: Atrial fibrillation type: paroxysmal Qualified Code(s): I48.0 - Paroxysmal atrial fibrillation (6) CAD (coronary artery disease) Code(s): I25.10 - ATHSCL HEART DISEASE OF [place] CORONARY ARTERY W/O ANG PCTRS (7) Diabetes Code(s): E11.9 - TYPE 2 DIABETES MELLITUS WITHOUT COMPLICATIONS Qualifiers: Diabetes mellitus type: type 2 Diabetes mellitus complication status: with neurologic complications (8) Diabetes mellitus with peripheral vascular disease Code(s): E11.51 - TYPE 2 DIABETES W DIABETIC PERIPHERAL ANGIOPATH W/O GANGRENE (9) Gastroparesis due to DM Code(s): E11.43 - TYPE 2 DIABETES W DIABETIC AUTONOMIC (POLY)NEUROPATHY; K31.84 - GASTROPARESIS (10) Type 2 diabetes mellitus with other diabetic neurological complication Code(s): E11.49 - TYPE 2 DIABETES W OTH DIABETIC NEUROLOGICAL COMPLICATION Assessment/Plan CT HEAD NOW W/O CONTRAST R/O ACUTE BUSINESS ASSOCIATE EVENT START LIQUID DIET IVF NEBS PAIN CONTROL PT EVAL OOB TO CHAIR W/ASSIST G/ EVAL CHRONIC GASTROPARESIS ID F/U SURGICAL EVAL
[2018-05-05] MEDS ORDERED: METOCLOPRAMIDE HCL INJECTION 10 MG/2 ML VIAL IVPUSH SCH (13:30)
[2018-05-05] MEDS ORDERED: ALBUTEROL SO4 2.5/IPRATROPIUM 0.5 INH SOL 3 ML VIAL.NEB. NEB PRN (13:33)
[2018-05-05] MEDS ORDERED: PT OWN MED DRAWER 7, Y5N ONE (14:06)
[2018-05-05 14:23] VITALS: BMI 41.0
[2018-05-05] MEDS ORDERED: SULFACETAMIDE SODIUM 10% OPHTHALMIC DROPS 15 ML BOTTLE OD SCH (14:30)
--- NOTE | 2018-05-05 14:54 | DS ---
Physical Examination Vital Signs: Vital Signs Temperature 98.3 F 05/05/18 09:55 Pulse Rate 107 H 05/05/18 09:55 Respiratory Rate 20 05/05/18 09:55 Blood Pressure 158/102 H 05/05/18 09:55 O2 Sat by Pulse Oximetry (%) 96 05/05/18 09:00 Findings/Remarks: TRANSFERRING TO [facility] FOR [facility]DOSCOPY Labs: CBC, BMP 05/05/18 11:13 05/05/18 11:13 Discharge Summary Reason For Visit: GASTROPARESIS Current Active Problems Abdominal pain (Acute) Hypokalemia (Acute) Morbid obesity with BMI of 40.0-44.9, adult (Acute) Nausea & vomiting (Acute) Hospital Course: ADMITTED HIATAL HERNIA WITH GASTROPARESIS RECURRENT NAUSEA AND VOMITING Condition: Fair - Instructions Referrals: Dennis Holcomb MD [Primary Care Provider] - Wei Lam MD [Staff Physician] - Disposition: TRANSFER ACUTE CARE/OTHER HOSP - Home Medications Comprehensive Discharge Medication List: Ambulatory Orders Atorvastatin Ca [Lipitor] 20 mg PO HS tablet 02/27/18 Docusate Sodium [Colace -] 100 mg PO BID capsule 03/25/18 Nystatin Powder [Nystop Powder -] 1 applic TP DAILY #1 bottle 03/25/18 Acetaminophen [Tylenol .Regular Strength -] 650 mg PO Q6H PRN tablet 04/03/18 Apixaban [Eliquis -] 2.5 mg PO BID tablet 04/03/18 Isosorbide Mononitrate [Imdur -] 30 mg PO DAILY tab.sr.24h 04/03/18 Metoprolol Tartrate [Lopressor -] 50 mg PO BID tablet 04/03/18 Sennosides [Senna -] 2 tab PO HS tablet 04/03/18 Sulfacetamide Sodium 10% [Bleph-10 Ophthalmic Solution -] 1 drop OS Q3H drops 04/03/18 Albuterol 2.5/Ipratropium 0.5 [Duoneb -] 1 amp NEB Q6H amp 04/14/18 Insulin (Levemir) [Levemir Vial] 15 units SQ AM units 04/14/18 Levothyroxine [Synthroid -] 100 mcg PO DAILY@0700 04/16/18 Escitalopram Oxalate [Lexapro -] 5 mg PO DAILY tablet 04/21/18 Metoclopramide HCl [Reglan -] 10 mg PO TIDAC tablet 04/21/18 Ondansetron [Zofran -] 4 mg PO Q8H PRN tablet 04/21/18 Polyethylene Glycol 3350 [Miralax 119 gm Btl -] 17 gm PO BID #0 bottle 04/21/18 Potassium Chloride 40 meq PO DAILY #60 tablet.er 04/21/18 Insulin Aspart [Novolog] 100 unit SQ Q6H PRN 05/03/18 Omeprazole 40 mg PO DAILY 05/03/18 Sitagliptin Phosphate [Januvia -] 50 mg PO DAILY 05/03/18
--- NOTE | 2018-05-05 14:55 | PN ---
Progress Note (short form) - Note Progress Note: I DISCUSSED WITH PATIENT'S DAUGHTER CORINNE AND SHE NEEDS A FURTHER WORKUP FOR HER HIATAL HERNIA, GASTROPARESIS AND RECURRENT NAUSEA AND VOMITING. CORINNE AGREE TO HAVE HER MOM TRANSFERRED TO [facility] TO DR GALLO [place]/PING SERVICE FOR EVAL OF MURPHY FUNDOSCOPY IF PATIENT IS A CANDIDATE. Problem List - Problems (1) Abdominal pain Code(s): R10.9 - UNSPECIFIED ABDOMINAL PAIN Qualifiers: Abdominal location: generalized Qualified Code(s): R10.84 - Generalized abdominal pain (2) Morbid obesity with BMI of 40.0-44.9, adult Code(s): E66.01 - MORBID (SEVERE) OBESITY DUE TO EXCESS CALORIES; Z68.41 - BODY MASS INDEX (BMI) 40.0-44.9, ADULT (3) Nausea & vomiting Code(s): R11.2 - NAUSEA WITH VOMITING, UNSPECIFIED Qualifiers: Vomiting type: unspecified Vomiting Intractability: non-intractable Qualified Code(s): R11.2 - Nausea with vomiting, unspecified (4) Acute metabolic encephalopathy Code(s): G93.41 - METABOLIC ENCEPHALOPATHY (5) Afib Code(s): I48.91 - UNSPECIFIED ATRIAL FIBRILLATION Qualifiers: Atrial fibrillation type: paroxysmal Qualified Code(s): I48.0 - Paroxysmal atrial fibrillation (6) CAD (coronary artery disease) Code(s): I25.10 - ATHSCL HEART DISEASE OF [place] CORONARY ARTERY W/O ANG PCTRS (7) Diabetes Code(s): E11.9 - TYPE 2 DIABETES MELLITUS WITHOUT COMPLICATIONS Qualifiers: Diabetes mellitus type: type 2 Diabetes mellitus complication status: with neurologic complications (8) Diabetes mellitus with peripheral vascular disease Code(s): E11.51 - TYPE 2 DIABETES W DIABETIC PERIPHERAL ANGIOPATH W/O GANGRENE (9) Gastroparesis due to DM Code(s): E11.43 - TYPE 2 DIABETES W DIABETIC AUTONOMIC (POLY)NEUROPATHY; K31.84 - GASTROPARESIS (10) Type 2 diabetes mellitus with other diabetic neurological complication Code(s): E11.49 - TYPE 2 DIABETES W OTH DIABETIC NEUROLOGICAL COMPLICATION
[2018-05-05] MEDS ORDERED: ACETAMINOPHEN 1000 MG/100 ML VIAL (NON FORMULARY) IVPB PRN (15:30)
[2018-05-05 15:35] VITALS: BP 145/73; PULSE 90; TEMP 98.8
--- NOTE | 2018-05-05 16:03 | CON.GI ---
Consult Consult Specialty:: GI - History of Present Illness History of Present Illness: patient known to me. SHe has multiple admissions secondar to nausea and vomting. Patient with 6 cm hiatal hernia by EGD and CT which is slidiing. Today patient also noted to be lethargic. 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 2011 dobut MIBI : no STs; moderate reversible defect anterior and lateral faith confounded by large breast shadow; nl EF -> pt didn't follow as outpt as planned (was on DATP for a little while). Echo 09/13: nl LVEF, nl RV, nl valve fxn), HTN, Hyperlipdemia Pulmonary: Yes: COPD Gastrointestinal: Yes: Constipation, Hiatal Hernia, Other (gastroparesis, morbid obesity) Endocrine: Yes: Diabetes Mellitus (insulin-dependent for years -> uncontrolled) , Hypothyroidism Dermatology: Yes: Cellulitis (in past, with chronic and intermittent edema) - Past Surgical History Past Surgical History: Yes: Cholecystectomy, Stent (coronary stents), Upper Endoscopy Additional Surgical History: D&C's; additional unknown - Alcohol/Substance Use Hx Alcohol Use: No History of Substance Use: reports: None - Smoking History Smoking history: Former smoker Have you smoked in the past 12 months: No Aproximately how many cigarettes per day: 0 If you are a former smoker, when did you quit?: 1984 - Social History Usual Living Arrangement: Senior Care ADL: Family Assistance History of Recent Travel: No Home Medications - Allergies Allergies/Adverse Reactions: Allergies Allergy/AdvReac Type Severity Reaction Status Date / Time vancomycin AdvReac Itching Verified 04/16/18 05:54 - Home Medications Home Medications: Ambulatory Orders Atorvastatin Ca [Lipitor] 20 mg PO HS tablet 02/27/18 Docusate Sodium [Colace -] 100 mg PO BID capsule 03/25/18 Nystatin Powder [Nystop Powder -] 1 applic TP DAILY #1 bottle 03/25/18 Acetaminophen [Tylenol .Regular Strength -] 650 mg PO Q6H PRN tablet 04/03/18 Apixaban [Eliquis -] 2.5 mg PO BID tablet 04/03/18 Isosorbide Mononitrate [Imdur -] 30 mg PO DAILY tab.sr.24h 04/03/18 Metoprolol Tartrate [Lopressor -] 50 mg PO BID tablet 04/03/18 Sennosides [Senna -] 2 tab PO HS tablet 04/03/18 Sulfacetamide Sodium 10% [Bleph-10 Ophthalmic Solution -] 1 drop OS Q3H drops 04/03/18 Albuterol 2.5/Ipratropium 0.5 [Duoneb -] 1 amp NEB Q6H amp 04/14/18 Insulin (Levemir) [Levemir Vial] 15 units SQ AM units 04/14/18 Levothyroxine [Synthroid -] 100 mcg PO DAILY@0700 04/16/18 Escitalopram Oxalate [Lexapro -] 5 mg PO DAILY tablet 04/21/18 Metoclopramide HCl [Reglan -] 10 mg PO TIDAC tablet 04/21/18 Ondansetron [Zofran -] 4 mg PO Q8H PRN tablet 04/21/18 Polyethylene Glycol 3350 [Miralax 119 gm Btl -] 17 gm PO BID #0 bottle 04/21/18 Potassium Chloride 40 meq PO DAILY #60 tablet.er 04/21/18 Insulin Aspart [Novolog] 100 unit SQ Q6H PRN 05/03/18 Omeprazole 40 mg PO DAILY 05/03/18 Sitagliptin Phosphate [Januvia -] 50 mg PO DAILY 05/03/18 Family Disease History - Family Disease History Family Disease History: Diabetes: Daughter Physical Exam-GI Vital Signs: Vital Signs Temperature 98.8 F 05/05/18 14:31 Pulse Rate 90 05/05/18 14:31 Respiratory Rate 20 05/05/18 14:31 Blood Pressure 145/73 05/05/18 14:31 O2 Sat by Pulse Oximetry (%) 96 05/05/18 09:00 Constitutional: Yes: Obese Eyes: Yes: Conjunctiva Clear HENT: Yes: Atraumatic Neck: Yes: Supple Cardiovascular: Yes: Regular Rate and Rhythm Respiratory: Yes: CTA Bilaterally ...Palpate: Yes: Soft. No: Firm/Rigid, Guarding, Hepatomegaly, Pulsatile Mass, Splenomegaly, Tenderness Labs: CBC, BMP 05/05/18 11:13 05/05/18 11:13 INR, PTT INR 1.11 (0.83-1.09) H 05/04/18 06:00 Problem List - Problems (1) Intractable nausea and vomiting Assessment/Plan: R> agree with CT of head d/w her daughter options including surgical repair of hiatal hernia. Patient to be transferred to [facility] for further evaluation and management Code(s): R11.2 - NAUSEA WITH VOMITING, UNSPECIFIED
--- NOTE | 2018-05-05 18:19 | CON.NEURO ---
Consult Consult Specialty:: Magnus Referred by:: Carole Reason for Consultation:: AMS - History of Present Illness History of Present Illness: This is a very pleasant 87-year-old right-handed female patient with multiple medical problem including Coronary artery disease Osteoarthritis Diabetes Mild dementia Hiatal hernia Peptic ulcer disease Patient was consulted upon from neurology for altered mental status with questionable seizure. 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 2011 dobut MIBI : no STs; moderate reversible defect anterior and lateral faith confounded by large breast shadow; nl EF -> pt didn't follow as outpt as planned (was on DATP for a little while). Echo 09/13: nl LVEF, nl RV, nl valve fxn), HTN, Hyperlipdemia Pulmonary: Yes: COPD Gastrointestinal: Yes: Constipation, Hiatal Hernia, Other (gastroparesis, morbid obesity) Endocrine: Yes: Diabetes Mellitus (insulin-dependent for years -> uncontrolled) , Hypothyroidism Dermatology: Yes: Cellulitis (in past, with chronic and intermittent edema) - Past Surgical History Past Surgical History: Yes: Cholecystectomy, Stent (coronary stents), Upper Endoscopy Additional Surgical History: D&C's; additional unknown - Alcohol/Substance Use Hx Alcohol Use: No History of Substance Use: reports: None - Smoking History Smoking history: Former smoker Have you smoked in the past 12 months: No Aproximately how many cigarettes per day: 0 If you are a former smoker, when did you quit?: 1984 - Social History Usual Living Arrangement: Shelter ADL: Family Assistance History of Recent Travel: No Home Medications - Allergies Allergies/Adverse Reactions: Allergies Allergy/AdvReac Type Severity Reaction Status Date / Time vancomycin AdvReac Itching Verified 04/16/18 05:54 - Home Medications Home Medications: Ambulatory Orders Atorvastatin Ca [Lipitor] 20 mg PO HS tablet 02/27/18 Docusate Sodium [Colace -] 100 mg PO BID capsule 03/25/18 Nystatin Powder [Nystop Powder -] 1 applic TP DAILY #1 bottle 03/25/18 Acetaminophen [Tylenol .Regular Strength -] 650 mg PO Q6H PRN tablet 04/03/18 Apixaban [Eliquis -] 2.5 mg PO BID tablet 04/03/18 Isosorbide Mononitrate [Imdur -] 30 mg PO DAILY tab.sr.24h 04/03/18 Metoprolol Tartrate [Lopressor -] 50 mg PO BID tablet 04/03/18 Sennosides [Senna -] 2 tab PO HS tablet 04/03/18 Sulfacetamide Sodium 10% [Bleph-10 Ophthalmic Solution -] 1 drop OS Q3H drops 04/03/18 Albuterol 2.5/Ipratropium 0.5 [Duoneb -] 1 amp NEB Q6H amp 04/14/18 Insulin (Levemir) [Levemir Vial] 15 units SQ AM units 04/14/18 Levothyroxine [Synthroid -] 100 mcg PO DAILY@0700 04/16/18 Escitalopram Oxalate [Lexapro -] 5 mg PO DAILY tablet 04/21/18 Metoclopramide HCl [Reglan -] 10 mg PO TIDAC tablet 04/21/18 Ondansetron [Zofran -] 4 mg PO Q8H PRN tablet 04/21/18 Polyethylene Glycol 3350 [Miralax 119 gm Btl -] 17 gm PO BID #0 bottle 04/21/18 Potassium Chloride 40 meq PO DAILY #60 tablet.er 04/21/18 Insulin Aspart [Novolog] 100 unit SQ Q6H PRN 05/03/18 Omeprazole 40 mg PO DAILY 05/03/18 Sitagliptin Phosphate [Januvia -] 50 mg PO DAILY 05/03/18 Family Disease History - Family Disease History Family History: Unable to Obtain Family Disease History: Diabetes: Daughter Review of Systems Unable to obtain ROS, reason: ??? Physical Exam-Neuro Vital Signs: Vital Signs Temperature 98.8 F 05/05/18 14:31 Pulse Rate 90 05/05/18 14:31 Respiratory Rate 20 05/05/18 14:31 Blood Pressure 145/73 05/05/18 14:31 O2 Sat by Pulse Oximetry (%) 96 05/05/18 09:00 Constitutional: Yes: Well Nourished Neck: Yes: WNL Labs: CBC, BMP 05/05/18 11:13 05/05/18 11:13 INR, PTT INR 1.11 (0.83-1.09) H 05/04/18 06:00 Imaging - Results Cat Scan: Image Reviewed Problem List - Problems (1) Altered mental status Assessment/Plan: I reviewed the CAT scan of the head without seeing the patient There was no evidence of acute pathology Most probably toxic metabolic encephalopathy Please recommend to obtain an MRI of the brain with no contrast EEG and blood work for dementia Many thanks for the referral Code(s): R41.82 - ALTERED MENTAL STATUS, UNSPECIFIED
[2018-05-05] MEDS ORDERED: METOPROLOL TARTRATE 50 MG TABLET (FP) PO SCH (22:00)
[2018-05-05] MEDS ORDERED: ATORVASTATIN CA 20 MG TABLET (FP) PO SCH (22:00)
[2018-05-06] MEDS ORDERED: LEVOTHYROXINE NA 100 MCG TABLET (FP) PO SCH (07:00)
[2018-05-06] MEDS ORDERED: ESCITALOPRAM OXALATE 10 MG TABLET (FP) PO SCH (10:00)
[2018-05-06] MEDS ORDERED: ISOSORBIDE MONONITRATE 30 MG TAB.SR.24H (FP) PO SCH (10:00)
== END 2018-05-05 16:18 | disposition short-term general hospital (02) | DRG 73 ==
LOC: JER 17:55 → JERBED 23:32 → J5S 05-04 04:04
PROVIDERS: ADMIT Internal Medicine; ATTEND Family Medicine
DX: E11.43 Type 2 diabetes mellitus with diabetic autonomic (poly)neuropathy (principal); G93.41 Metabolic encephalopathy; K56.609 Unspecified intestinal obstruction, unspecified as to partial versus complete obstruction; Z68.41 Body mass index [BMI] 40.0-44.9, adult; E87.1 Hypo-osmolality and hyponatremia; K44.9 Diaphragmatic hernia without obstruction or gangrene; E11.65 Type 2 diabetes mellitus with hyperglycemia; E66.01 Morbid (severe) obesity due to excess calories; I10 Essential (primary) hypertension; E87.6 Hypokalemia; R41.82 Altered mental status, unspecified; F03.90 Unspecified dementia, unspecified severity, without behavioral disturbance, psychotic disturbance, mood disturbance, and anxiety; I48.0 Paroxysmal atrial fibrillation; E03.9 Hypothyroidism, unspecified; E88.09 Other disorders of plasma-protein metabolism, not elsewhere classified
CPT/HCPCS: 36415; 70450-TC; 74177-TC; 80053; 82150; 82272; 82962; 83605; 83690; 83735; 84100; 84484; 85025; 85610; 86850; 86900; 86901; 87040; 87086; 93005; 93010; 99285-25; J0131; J7030

== ENCOUNTER 2018-07-26 11:10 | Inpatient (IN) | payer OTHER ==
[2018-07-26] MEDS ORDERED: SODIUM CHLORIDE 250 ML IV STA (12:11)
[2018-07-26] MEDS ORDERED: ACETAMINOPHEN 1000 MG/100 ML VIAL (NON FORMULARY) IVPB ONE (12:11)
[2018-07-26] MEDS ORDERED: ACETAMINOPHEN INJECTION 100 ML IVPB ONE (13:07)
[2018-07-26 13:10] LABS: BASO % 1.1 % (0-2.0); HEMOGLOBIN 14.1 GM/dL (10.7-15.3); LYMPH % 29.2 % (8-40); MCH 31.2 pg (25.7-33.7); MCHC 32.9 g/dl (32.0-36.0); MEAN CELL VOLUME 94.9 fl (80-96); MEAN PLT VOLUME 9.1 fl (7.5-11.1); MONO % 10.6 % (3.8-10.2); NEUT % 58.1 % (42.8-82.8); PLATELET COUNT 160 K/MM3 (134-434); RBC 4.53 M/mm3 (3.60-5.2); WHITE BLOOD COUNT 8.5 K/mm3 (4.0-10.0)
--- NOTE | 2018-07-26 13:29 | PDOC ---
History of Present Illness - General Chief Complaint: Altered Mental Status Stated Complaint: Altered Mental Status Time Seen by Provider: 07/26/18 11:47 History Source: Patient Exam Limitations: No Limitations - History of Present Illness Initial Comments: 07/26/18 15:52 88 yo F with a hx of HTN, DM, gastroparesis, CAD, afib (on eliquis, CHF (65% EF on 01/2018, on lasix), hypothyroidism, and hx of NSTEMI presents to the emergency department for AMS for 2 days. Per the daughter, the patient is normally alert and oriented x3. She has been acting more confused. In addition, she complains of generalized abdominal pain, cramping like in nature, diffuse located with point of maximal pain in the epigastric region with diarrhea and vomiting (multiple episodes, without hematemesis and bile). Denies the following : fever, chills, chest pain, SOB, dysuria, hematuria, and leg pain/swelling. No recent sick contacts. Past History - Past Medical History Allergies/Adverse Reactions: Allergies Allergy/AdvReac Type Severity Reaction Status Date / Time vancomycin AdvReac Itching Verified 07/26/18 12:49 Home Medications: Ambulatory Orders Atorvastatin Ca [Lipitor] 20 mg PO HS tablet 02/27/18 Isosorbide Mononitrate [Imdur -] 30 mg PO DAILY tab.sr.24h 04/03/18 Metoprolol Tartrate [Lopressor -] 50 mg PO BID tablet 04/03/18 Sennosides [Senna -] 2 tab PO HS tablet 04/03/18 Insulin (Levemir) [Levemir Vial] 15 units SQ AM units 04/14/18 Levothyroxine [Synthroid -] 100 mcg PO DAILY@0700 04/16/18 Escitalopram Oxalate [Lexapro -] 5 mg PO DAILY tablet 04/21/18 Metoclopramide HCl [Reglan -] 10 mg PO TIDAC tablet 04/21/18 Potassium Chloride 40 meq PO DAILY #60 tablet.er 04/21/18 Insulin Aspart [Novolog] 100 unit SQ Q6H PRN 05/03/18 Omeprazole 40 mg PO DAILY 05/03/18 Anemia: No Asthma: Yes Cancer: Yes (SKIN) Cardiac Disorders: Yes (MITRAL VALVE PROLAPSE,AFIB,CAD) CVA: No COPD: Yes CHF: Yes Dementia: Yes (early onset) Diabetes: Yes GI Disorders: Yes Disorders: No HTN: Yes Hypercholesterolemia: Yes Liver Disease: Yes (FATTY LIVER) Seizures: No Thyroid Disease: Yes - Surgical History Abdominal Surgery: Yes Cholecystectomy: Yes - Suicide/Smoking/Psychosocial Hx Smoking Status: Yes Smoking History: Never smoked Have you smoked in the past 12 months: No Number of Cigarettes Smoked Daily: 0 If you are a former smoker, when did you quit?: 1985 Cigars Per Day: 0 Information on smoking cessation initiated: No Hx Alcohol Use: No Drug/Substance Use Hx: No Substance Use Type: None Hx Substance Use Treatment: Yes Review of Systems - Review of Systems Able to Perform ROS?: No (AMS) *Physical Exam - Vital Signs Last Vital Signs Temp Pulse Resp BP Pulse Ox 99.4 F 98 H 16 130/79 96 07/26/18 11:10 07/26/18 11:10 07/26/18 11:10 07/26/18 11:10 07/26/18 11:10 - Physical Exam General Appearance: Yes: Nourished, Appropriately Dressed, Obese. No: Apparent Distress, Intoxicated HEENT: positive: EOMI, PREETI, Normal Voice, Symmetrical, Pharynx Normal. negative: Pale Conjunctivae, Scleral Icterus (R), Scleral Icterus (L), Muffled/ Hoarse voice, Pharyngeal Erythema, Tonsillar Exudate, Tonsillar Erythema Neck: positive: Trachea midline, Supple. negative: Tender, Lymphadenopathy (R) , Lymphadenopathy (L), Tender lateral, Tender midline Respiratory/Chest: positive: Lungs Clear, Normal Breath Sounds. negative: Chest Tender, Respiratory Distress, Accessory Muscle Use, Crackles, Rales, Rhonchi, Stridor, Wheezing Cardiovascular: positive: Regular Rhythm, Regular Rate, S1, S2. negative: Systolic Murmur Gastrointestinal/Abdominal: positive: Tender (diffusely, point of maximal tenderness in the epigastric region), Flat, Soft, Increased Bowel Sounds. negative: Guarding, Rebound Lymphatic: negative: Adenopathy Musculoskeletal: positive: Normal Inspection. negative: CVA Tenderness, Vertebral Tenderness Extremity: positive: Normal Capillary Refill, Normal Inspection, Normal Range of Motion. negative: Tender, Pedal Edema, Swelling, Calf Tenderness Integumentary: positive: Normal Color, Dry. 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 negative: Fully Oriented (oriented to self only. ), Normal Mood /Affect (depressed affect), Motor Strength 5/5 (4/5 strength in LLE. ), Facial Droop, Sensory Deficit Heart Score/ECG Review - ECG Intrepretation Comment:: ventricular rate is 83 bpm. NC is 240 ms. QRS is 96 ms. QTc is 531 ms. SR with 1st degree AV block. prolonged qt. t wave inversion laterally ED Treatment Course - LABORATORY CBC & Chemistry Diagram: 07/27/18 09:40 07/27/18 09:40 - ADDITIONAL ORDERS Additional order review: 07/26/18 12:30 RBC 4.53 MCV 94.9 MCHC 32.9 RDW 19.0 H MPV 9.1 Neutrophils % 58.1 Lymphocytes % 29.2 D Monocytes % 10.6 H Eosinophils % 1.0 D Basophils % 1.1 - RADIOLOGY Radiology Studies Ordered: Category Date Time Status ABDOMEN & PELVIS CT WITH CONTR [CT] Stat CT Scan 07/26/18 12:[address] WITHOUT CONTRAST [CT] Stat CT Scan 07/26/18 12:11 Ordered CHEST X-RAY PORTABLE* [RAD] Stat Radiology 07/26/18 12:11 Completed - Medications Given in the ED: ED Medications Discontinued Medications Generic Name Dose Route Start Last Admin Trade Name Freq PRN Reason Stop Dose Admin Acetaminophen 1,000 mg 07/26/18 12:11 07/26/18 13:28 Ofirmev Injection - IVPB 07/26/18 12:12 1,000 mg ONCE ONE Administration Sodium Chloride 250 mls @ 250 mls/hr 07/26/18 12:11 07/26/18 13:28 Normal Saline - IV 07/26/18 13:10 250 mls/hr ASDIR STA Administration Medical Decision Making - Medical Decision Making 88 yo F with a hx of HTN, DM, gastroparesis, CAD, afib (on eliquis, CHF (65% EF on 01/2018, on lasix), hypothyroidism, and hx of NSTEMI presents to the emergency department for AMS for 2 days. Initial vitals: Initial Vital Signs Temp Pulse Resp BP Pulse Ox 99.4 F 98 H 16 130/79 96 07/26/18 11:10 07/26/18 11:10 07/26/18 11:10 07/26/18 11:10 07/26/18 11:10 Work up: ddx: AMS (infectious vs metabolic vs neurologic vs toxic). abdominal pain with nausea and vomiting concerning for SBO vs pancreatitis vs proctitis/ diverticulitits vs gastroenteritis. Patient had an open cholecystectomy in the past with scar present. Laboratory Tests 07/26/18 07/26/18 07/26/18 12:30 12:30 14:56 WBC 8.5 RBC 4.53 Hgb 14.1 Hct 43.0 MCV 94.9 MCH 31.2 MCHC 32.9 RDW 19.0 H Plt Count 160 MPV 9.1 Absolute Neuts (auto) 4.9 Neutrophils % 58.1 Lymphocytes % 29.2 D Monocytes % 10.6 H Eosinophils % 1.0 D Basophils % 1.1 Nucleated RBC % 0 Sodium 146 H Potassium 3.6 Chloride 109 H Carbon Dioxide 28 Anion Gap 9 BUN 8 Creatinine 0.6 Creat Clearance w eGFR 94.56 POC Glucometer Random Glucose 143 H Calcium 7.7 L Total Bilirubin 1.4 H AST 31 ALT 14 Alkaline Phosphatase 65 Creatine Kinase 66 Troponin I 0.02 Total Protein 5.4 L Albumin 1.8 L Lipase 44 L TSH 1.83 Free T4 1.83 H Urine Color Dk yellow Urine Appearance Cloudy Urine pH 5.5 Ur Specific [place] 1.023 Urine Protein 1+ H Urine Glucose (UA) Negative Urine Ketones 2+ H Urine Blood 1+ H Urine Nitrite Positive H Urine Bilirubin 1+ H Urine Urobilinogen 1.0 Ur Leukocyte Esterase 2+ H Urine WBC (Auto) 219 Urine RBC (Auto) 1 Urine Casts (Auto) 25 U Pathogenic Cast Auto None seen U Epithel Cells (Auto) 10.8 Urine Bacteria (Auto) 735.9 07/26/18 23:29 WBC RBC Hgb Hct MCV MCH MCHC RDW Plt Count MPV Absolute Neuts (auto) Neutrophils % Lymphocytes % Monocytes % Eosinophils % Basophils % Nucleated RBC % Sodium Potassium Chloride Carbon Dioxide Anion Gap BUN Creatinine Creat Clearance w eGFR POC Glucometer 126 Random Glucose Calcium Total Bilirubin AST ALT Alkaline Phosphatase Creatine Kinase Troponin I Total Protein Albumin Lipase TSH Free T4 Urine Color Urine Appearance Urine pH Ur Specific [place] Urine Protein Urine Glucose (UA) Urine Ketones Urine Blood Urine Nitrite Urine Bilirubin Urine Urobilinogen Ur Leukocyte Esterase Urine WBC (Auto) Urine RBC (Auto) Urine Casts (Auto) U Pathogenic Cast Auto U Epithel Cells (Auto) Urine Bacteria (Auto) UA shows elevated WBC with positive nitrite and leukocyte esterase. patient was started on ceftriaxone. patient was given IVF, tylenol. head ct was negative for acute process. cxr was negative for acute process. abdomen pelvis ct shows proctitis with debris possibly contrast vs clotted blood in the rectum. Patient was endorses to the hospitalists and accepted for admission. Dispo: Admit *DC/Admit/Observation/Transfer Diagnosis at time of Disposition: Complicated UTI (urinary tract infection) - Referrals - Patient Instructions - Post Discharge Activity
[2018-07-26 14:11] LABS: ALBUMIN 1.8 g/dl (3.4-5.0); ALK PHOS 65 U/L (45-117); ANION GAP 9 MMOL/L (8-16); BILIRUBIN,TOTAL 1.4 mg/dL (0.2-1); BLOOD UREA NITROGEN 8 mg/dL (7-18); CALCIUM 7.7 mg/dL (8.5-10.1); CHLORIDE 109 mmol/L (98-107); CO2 28 mmol/L (21-32); CREATININE 0.6 mg/dL (0.55-1.3); GLUCOSE,RANDOM 143 mg/dL (74-106); LIPASE 44 U/L (73-393); POTASSIUM 3.6 mmol/L (3.5-5.1); SGOT/AST 31 U/L (15-37); SGPT/ALT 14 U/L (13-61); SODIUM 146 mmol/L (136-145); TOT PROT 5.4 g/dl (6.4-8.2)
--- NOTE | 2018-07-26 15:12 | PDOC ---
Documentation entered by Andreea Guevara SCRIBE, acting as scribe for Aba Tran MD. Aba Tran MD: This documentation has been prepared by the Ismael zayas Adrianna, SCRIBE, under my direction and personally reviewed by me in its entirety. I confirm that the documentation accurately reflects all work, treatment, procedures, and medical decision making performed by me. Attending Attestation - Resident Resident Name: Lebron Remy - ED Attending Attestation I have performed the following: I have examined & evaluated the patient, The case was reviewed & discussed with the resident, I agree w/resident's findings & plan, Exceptions are as noted - HPI HPI: The patient is an 88 year old female, with a significant PMH of HTN, Type II DM , Gastroparesis, CAD, NSTEMI, Paroxysmal A-fib (on Eliquis), CHF ( EF 65 % 2017, on Lasix), hypothyroidism, who presents to the emergency department today brought in by her daughter for AMS for 2 days. As per patients daughter, she has been acting abnormally since yesterday. She notes that the patient is typically awake, alert, and oriented x3 at baseline and conversive. At this time , patient is unsure of the date and when asked where she is while in the ED, she states that she is at home. In the ED, the patient endorses localized epigastric pain. Patients daughter also reports that the patient has been having multiple episodes of NBNB vomit and diarrhea. Patients daughter denies any recent falls, but does note that she is remains in bed at her baseline. Patient is a poor historian secondary to her AMS. The patient denies chest pain, shortness of breath, headache, focal weakness/ numbness and dizziness. Denies fever, chills, and constipation. Denies dysuria, frequency, urgency and hematuria. Allergies: Vancomycin Past surgical history: Cholecystectomy Social history: No reported PCP: Dr. Dennis Holcomb - Physicial Exam PE: 07/26/18 15:12 agree with resident exam - Medical Decision Making EXAM#: TYPE/EXAM: RESULT: [id number] RAD/CHEST X-RAY PORTABLE* Chest: Infection A single AP view of the chest is been submitted. Since 07/15/2018, there is an increased rotation to the right with weak inspiration, prominent mediastinum with tortuous aorta and slightly prominent daija. An acute infiltrate or failure is not seen. There may be some minimal fluid in the horizontal fissure. Correlation recommended. Reported By: Enio Osborn MD 07/26/18 13:20 EXAM#: TYPE/EXAM: RESULT: [id number] CT/HEAD CT WITHOUT CONTRAST Cranial CT without contrast Clinical information: left leg not moving well Impression: No obvious interval change is noted in comparison to a prior CT study of 05/05/2018. Reported By: Oseas Day MD 07/26/18 16:15 EXAM#: TYPE/EXAM: RESULT: [id number] CT/ABDOMEN PELVIS CT WITH CONTR Abdomen and pelvis CT (with contrast) Clinical information: generalized abdominal pain Impression: Possible interval development of mild concentric rectal wall thickening is noted in comparison to a CT study 05/03/2018 - ? possible proctitis. Interval appearance of a small amount of radiopaque material is noted within the rectal lumen possibly representing radiographic contrast, calcific debris or acutely clotted blood. Correlate clinically. A small right pleural effusion is noted which appears mildly increased since the 05/03/2018 CT study. Increased bilateral flank subcutaneous edema is noted. Colonic diverticulosis is seen without evidence of acute diverticulitis. Status post cholecystectomy. Reported By: Oseas Day MD 07/26/18 17:25 07/26/18 17:39
[2018-07-26 15:15] LABS: EPI CELLS 10.8 /HPF (0-5/HPF); PH,URINE 5.5 (5.0-8.0); URINE APPEARANCE CLOUDY; URINE BACTERIA 735.9 /hpf (NEGATIVE); URINE BILIRUBIN 1+ (NEGATIVE); URINE CASTS 25 /lpf (0-8); URINE COLOR DK YELLOW; URINE GLUCOSE (UA) NEGATIVE (NEGATIVE); URINE KETONE 2+ (NEGATIVE); URINE LEUK ESTERASE 2+ (NEGATIVE); URINE NITRITE POSITIVE (NEGATIVE); URINE PROTEIN 1+ (NEGATIVE); URINE RBC 1 /hpf (0-4); URINE WBC 219 /hpf (0-5)
[2018-07-26] MEDS ORDERED: CEFTRIAXONE 1,000 MG in DEXTROSE 5%-WATER - 50 ML IVPB ONE (15:42)
[2018-07-26] MEDS ORDERED: CEFTRIAXONE 1 GM/50 ML BAG ONE (16:50)
[2018-07-26] MEDS ORDERED: PATIENT'S OWN MEDICATION (NON-FORMULARY) (Insulin Aspart [Novolog] 100 UNIT) SQ PRN (19:59)
--- NOTE | 2018-07-26 19:59 | HP ---
CHIEF COMPLAINT: altered mental status change for 2 days, localized epigastric pain, vomiting and diarrhea PCP:Dr. Dennis Holcomb HISTORY OF PRESENT ILLNESS: 88 year old Scottish speaking female with past medical history of hypertension, type II diabetes mellitus, gastroparesis, coronary artery disease, NSTEMI, paraoxysmal atrila fibrillation (on Eliquis as per ER note, med not seen in med rec), diastolic congestive heart failure ( EF 65 % by echo 2018, on lasix as per ER note,med not seen in med rec ), and hypothyroidism who presents to the emergency department today brought in by her daughter for AMS for 2 days. As reported in ER note daughter states patient is typically awake, alert, and oriented x3 at baseline and conversative. The patient endorsed localized epigastric pain. Patients daughter also reports that the patient has been having multiple episodes of nonbloody and nonbilious vomiting and diarrhea. Patients daughter denies any recent falls, but does note that she is remains in bed at her baseline. Patient is a poor historian secondary to her AMS and mainly Scottish speaking(did not participate with [employer] upon my evaluation, no daughter at bedside for history taking and HPI obtained from ER note) Upon evaluation in the ER CT scan of head showed no acute abnormalities, no infarct and no evidence of hemorrhage. She was found to have a UTI with positive nitrite and 2+ leukoesterase. She is currently afebrile and blood pressure is normotensive. She received one dosage of IV ceftriaxone in the ER. Urine and blood cultures are pending. Recent Travel:unable to obtain PAST MEDICAL HISTORY:as above PAST SURGICAL HISTORY: unable to obtain Social History:unable to obtain due to patient mental status Family History:unable to obtain due to patient mental status Allergies vancomycin Adverse Reaction (Verified 07/26/18 12:49) Itching 10/08/17 SUSPECTED ADR TO VANCOMYCIN. RX: ITCHING AND TONGUE SWELLING. BENADRYL 50 MG IVPUSH AND DECADRON 10 MG IVPUSH WERE GIVEN TO PT. PER JASON MILES AND ANITA'S NOTES PT EXPERIENCED AN ADR TO VANCO IN THE ER ON 10/08/17. HOME MEDICATIONS: Home Medications Medication Instructions Recorded Atorvastatin Ca [Lipitor] 20 mg PO HS tablet 02/27/18 Isosorbide Mononitrate [Imdur -] 30 mg PO DAILY tab.sr.24h 04/03/18 Metoprolol Tartrate [Lopressor -] 50 mg PO BID tablet 04/03/18 Sennosides [Senna -] 2 tab PO HS tablet 04/03/18 Insulin (Levemir) [Levemir Vial] 15 units SQ AM units 04/14/18 Levothyroxine [Synthroid -] 100 mcg PO DAILY@0700 04/16/18 Escitalopram Oxalate [Lexapro -] 5 mg PO DAILY tablet 04/21/18 Metoclopramide HCl [Reglan -] 10 mg PO TIDAC tablet 04/21/18 Potassium Chloride 40 meq PO DAILY #60 tablet.er 04/21/18 Insulin Aspart [Novolog] 100 unit SQ Q6H PRN 05/03/18 Omeprazole 40 mg PO DAILY 05/03/18 REVIEW OF SYSTEMS CONSTITUTIONAL: Absent: fever, chills, diaphoresis, generalized weakness, malaise, loss of appetite, weight change HEENT: Absent: rhinorrhea, nasal congestion, throat pain, throat swelling, difficulty swallowing, mouth swelling, ear pain, eye pain, visual changes CARDIOVASCULAR: Absent: chest pain, syncope, palpitations, irregular heart rate, lightheadedness , peripheral edema RESPIRATORY: Absent: cough, shortness of breath, dyspnea with exertion, orthopnea, wheezing, stridor, hemoptysis GASTROINTESTINAL: Absent: abdominal pain, abdominal distension, nausea, nonbloody nonbilious vomiting, diarrhea, constipation, melena, hematochezia GENITOURINARY: Absent: dysuria, frequency, urgency, hesitancy, hematuria, flank pain, genital pain, epigastric pain MUSCULOSKELETAL: Absent: myalgia, arthralgia, joint swelling, back pain, neck pain SKIN: Absent: rash, itching, pallor HEMATOLOGIC/IMMUNOLOGIC: Absent: easy bleeding, easy bruising, lymphadenopathy, frequent infections ENDOCRINE: Absent: unexplained weight gain, unexplained weight loss, heat intolerance, cold intolerance NEUROLOGIC: Absent: headache, focal weakness or paresthesias, dizziness, unsteady gait, seizure, mental status changes, bladder or bowel incontinence PSYCHIATRIC: Absent: anxiety, depression, suicidal or homicidal ideation, hallucinations. PHYSICAL EXAMINATION Vital Signs - 24 hr 07/26/18 07/26/18 07/26/18 11:10 14:10 18:30 Temperature 99.4 F 98.6 F Pulse Rate 98 H Pulse Rate [ 89 86 Apical] Respiratory 16 15 16 Rate Blood Pressure 130/79 Blood Pressure 136/75 134/73 [Right] O2 Sat by Pulse 96 96 96 Oximetry (%) GENERAL:opens eyes on command, no acute distress HEAD: normal with no signs of trauma EYES: pupils equal, round and reactive to light EARS, NOSE, THROAT: ears normal, nares patent NECK: no JVD LUNGS: breath sounds equal, clear to auscultation bilaterally no use of accessory muscles no wheezing no rales HEART: Regular rate and rhythm, normal S1 and S2 without murmur, rub or gallop. ABDOMEN: soft nontender not distended normoactive bowel sounds MUSCULOSKELETAL: normal range of motion at all joints UPPER EXTREMITIES: 2+ pulses, warm, well-perfused LOWER EXTREMITIES: 2+ pulses, warm, well-perfused no pitting edema NEUROLOGICAL: nonverbal no facial droop or grimace PSYCHIATRIC: unable to access SKIN: skin warm to touch no cyanosis Laboratory Results - last 24 hr 07/26/18 07/26/18 07/26/18 12:30 12:30 14:56 WBC 8.5 RBC 4.53 Hgb 14.1 Hct 43.0 MCV 94.9 MCH 31.2 MCHC 32.9 RDW 19.0 H Plt Count 160 MPV 9.1 Absolute Neuts (auto) 4.9 Neutrophils % 58.1 Lymphocytes % 29.2 D Monocytes % 10.6 H Eosinophils % 1.0 D Basophils % 1.1 Nucleated RBC % 0 Sodium 146 H Potassium 3.6 Chloride 109 H Carbon Dioxide 28 Anion Gap 9 BUN 8 Creatinine 0.6 Creat Clearance w eGFR 94.56 Random Glucose 143 H Calcium 7.7 L Total Bilirubin 1.4 H AST 31 ALT 14 Alkaline Phosphatase 65 Creatine Kinase 66 Troponin I 0.02 Total Protein 5.4 L Albumin 1.8 L Lipase 44 L TSH 1.83 Free T4 1.83 H Urine Color Dk yellow Urine Appearance Cloudy Urine pH 5.5 Ur Specific [place] 1.023 Urine Protein 1+ H Urine Glucose (UA) Negative Urine Ketones 2+ H Urine Blood 1+ H Urine Nitrite Positive H Urine Bilirubin 1+ H Urine Urobilinogen 1.0 Ur Leukocyte Esterase 2+ H Urine WBC (Auto) 219 Urine RBC (Auto) 1 Urine Casts (Auto) 25 U Pathogenic Cast Auto None seen U Epithel Cells (Auto) 10.8 Urine Bacteria (Auto) 735.9 ASSESSMENT/PLAN: 88 year old mainly Scottish speaking female with past medical history of hypertension, type II diabetes mellitus, gastroparesis, coronary artery disease , NSTEMI, paraoxysmal atrial fibrillation (on Eliquis as per ER note, med not seen in med rec), diastolic congestive heart failure (EF 65 % by echo 2018, on lasix as per ER note,med not seen in med rec ), and hypothyroidism who presented with altered mental status changes for 2 days. At baseline patient is typically awake, alert, and oriented x3 and conversive.SHe also reported epigastric pain with vomiting and diarrhea. She was found to have a positive UTI. #1 Urinary Tract Infection UA with +nitrite and 2+ leukoesterase and 1+blood. Renal function and WBC is normal, afebrile She received one dosage of IV Ceftriaxone, will continue with IV Ceftriaxone 1 gm. Urine culture with sensitivity and blood cultures are pending. If positive urine /blood cultures recommend ID consult. #2 Altered Mental Status Secondary to UTI CT scan of head with no acute findings.Continue with neuro checks #3 Hypernatremia(Mild) (secondary to diarrhea) Will initiate IV fluids(D 1/2NS at 75cc/hr X1 bag ) with close monitoring of fluid volume status. #4 Diarrhea Continue IV fluids. Check C. Def. if continues to have recurrent diarrhea. #5 Epigastric Pain w/ Vomiting/ Elevated Total Bilirubin LFT's and lipase are normal. Check US liver. #6 Diastolic Congestive Heart Failure Patient appears euvolemic on clinical examination.CXR with no CHF. EF 65 % by echo . Monitor for signs of fluid overload, dyspnea. #7 Paraoxysmal Atrial Fibrillation Rate controlled. EKG showing atrial fibrillation. Continue with IV lopressor 5mg q12hr for rate control. Recorded in ER note she is on eliquis but not seen in med rec. Will add therapeutic dosage of lovenox for stroke prophylaxsis. #8 Coronary Artery Disease Troponin is normal. Resume statin, metoprolol tartrate and imdur when cleared by speech and swallow. Not on aspirin as patient is on systemic anticoagulation on home medical regimen. #9 Hypertension Stable. Patient is NPO, pending speech and swallow eval, IV lopressor 5mg BID for htn. Resume metoprolol tartrate and imdur when cleared by speech. #10 Diabetes Mellitus Accucheks before meals and at bedtime. NPO now,on IV fluids. Levimer 15 Units every am, will hold am 07/27. #11 Hypothyroidism TSH and free T3 is normal. Now NPO, pending speech and swallow evaluation, resume synthroid when cleared by speech. #12 Low albumin/Low Total Protein Will consult [facility] for further evaluation. FEN NPO, speech and swallow evaluation ordered, IVF DVT Therapeutic dosage of lovenox, SCD's Visit type - Emergency Visit Emergency Visit: No - New Patient This patient is new to me today: Yes Date on this admission: 07/27/18 - Critical Care Critical Care patient: No
[2018-07-26] MEDS ORDERED: SODIUM CHLORIDE 1,000 ML IV SCH (20:45)
[2018-07-26] MEDS ORDERED: SODIUM CHLORIDE 0.45% 1,000 ML IV SCH (20:45)
[2018-07-26] MEDS ORDERED: ENOXAPARIN NA (PORCINE) 40 MG/0.4 ML DISP.SYRIN SQ SCH (22:00)
[2018-07-26] MEDS ORDERED: ATORVASTATIN CA 20 MG TABLET (FP) PO SCH (22:00)
[2018-07-26] MEDS ORDERED: METOPROLOL TARTRATE 50 MG TABLET (FP) PO SCH (22:00)
[2018-07-26] MEDS ORDERED: SENNOSIDES 8.6MG TABLET (FP) PO SCH (22:00)
[2018-07-26] MEDS: ENOXAPARIN NA (PORCINE) 120 MG/0.8 ML DISP.SYRIN SQ SCH (22:46)
[2018-07-26] MEDS ORDERED: DEXTROSE 5%-0.45% SALINE 1,000 ML IV SCH (23:30)
[2018-07-26] MEDS: METOPROLOL TARTRATE 5 MG/5 ML VIAL IVPB SCH (23:59)
[2018-07-27] MEDS ORDERED: INSULIN (LEVEMIR) 100 UNITS/ML UNITS SQ SCH (07:00)
[2018-07-27] MEDS ORDERED: METOCLOPRAMIDE HCL 10 MG TABLET (FP) PO SCH (07:00)
[2018-07-27] MEDS ORDERED: LEVOTHYROXINE NA 100 MCG TABLET (FP) PO SCH (07:00)
[2018-07-27] MEDS ORDERED: cefTRIAXone SODIUM 1 GM VIAL ONE ×2 (09:41→15:41)
[2018-07-27] MEDS ORDERED: DEXTROSE 5%-WATER - 50 ML IVPB ONE ×2 (09:42→15:41)
[2018-07-27] MEDS: METOPROLOL TARTRATE 5 MG/5 ML VIAL IVPB SCH ×2 (09:56→21:52)
[2018-07-27] MEDS: CEFTRIAXONE 1 GM in DEXTROSE 5%-WATER - 50 ML IVPB SCH ×2 (09:57→11:14)
[2018-07-27] MEDS ORDERED: ESCITALOPRAM OXALATE 10 MG TABLET (FP) PO SCH (10:00)
[2018-07-27] MEDS ORDERED: PANTOPRAZOLE 40 MG TABLET (FP) PO SCH (10:00)
[2018-07-27] MEDS ORDERED: ISOSORBIDE MONONITRATE 30 MG TAB.SR.24H (FP) PO SCH (10:00)
[2018-07-27] MEDS ORDERED: POTASSIUM CHLORIDE TABS 20 MEQ TABLET.ER (FP) PO SCH (10:00)
--- NOTE | 2018-07-27 10:25 | CONSULT ---
Admitting History and Physical - Primary Care Physician PCP: Wei Lam - Admission History of Present Illness: Per EMR- 88 yo F with a hx of HTN, DM, gastroparesis, CAD, afib (on eliquis, CHF (65% EF on 01/2018, on lasix), hypothyroidism, and hx of NSTEMI presents to the emergency department for AMS for 2 days. Per the daughter, the patient is normally alert and oriented x3. She has been acting more confused. In addition, she complains of generalized abdominal pain, cramping like in nature, diffuse located with point of maximal pain in the epigastric region with diarrhea and vomiting (multiple episodes, without hematemesis and bile). Pt seen April 2018 for similar h/o vomiting. Bedside swallowing was WNL. Per GI at that time-Patient has multiple admissions because of nausea and vomiting. EGD revealed 6 cm hiatal hernia and gastritis. 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 2011 dobut MIBI : no STs; moderate reversible defect anterior and lateral faith confounded by large breast shadow; nl EF -> pt didn't follow as outpt as planned (was on DATP for a little while). Echo 09/13: nl LVEF, nl RV, nl valve fxn), HTN, Hyperlipdemia Pulmonary: Yes: COPD Gastrointestinal: Yes: Constipation, Hiatal Hernia, Other (gastroparesis, morbid obesity) Heme/Onc: Yes: Cancer (thyroid) Endocrine: Yes: Diabetes Mellitus (insulin-dependent for years -> uncontrolled) , Hypothyroidism Dermatology: Yes: Cellulitis (in past, with chronic and intermittent edema) - Past Surgical History Past Surgical History: Yes: Cholecystectomy, Stent (coronary stents), Upper Endoscopy - Smoking History Smoking history: Never smoked Have you smoked in the past 12 months: No Aproximately how many cigarettes per day: 0 If you are a former smoker, when did you quit?: 1984 - Alcohol/Substance Use Hx Alcohol Use: No History of Substance Use: reports: None - Social History ADL: Family Assistance History of Recent Travel: No History - Admission Reason For Visit: COMPLICATED UTI - Diagnostics X-ray: Report Reviewed CT Scan: Report Reviewed (head/abd reviewed) - General Mental Status: Awake and Alert, Able to Follow Commands Attention: Intact Ability to Follow Directions: Good Head/Neck Control: Good - Hearing Hearing: Functional Speech Evaluation - Communication Primary Language: ROMANIAN Communication: Yes: Within Normal Limits Oral Expression Ability: Yes: Mild Impairment - Speech Production Able to Make Needs Known: Yes: WNL Intelligibility: Yes: WNL - Speech Characteristics Voice Loudness: Normal Voice Pitch: Yes: Normal Voice Phonatory-based Quality: Yes: Normal Speech Pattern: Normal Speech Clarity: < 100% Nasal Resonance: Normal Articulation: Yes: Imprecise - Language/Auditory Comprehension Follows: Yes: 1 Stage Simple Commands Observation: Able to respond to yes/no queries: Yes, Yes/No Confusion: No, Comprehends Conversational Speech: Yes - Language/Verbal Expression Able to Respond to Simple Queries: Yes: WNL Able to Communicate Wants and Needs: Yes: WNL Functional Communication Status: Yes: WNL - Swallow Evaluation/Bedside Assessment Current Nutritional Intake: NPO Oral Secretions: Yes: WFL Facial Symmetry at Rest: Symmetrical Lingual Movement: Symmetric Lingual Speed of Movement: Normal Lingual Movement Strgth Against Opposition: Normal Lingual Movement Characteristics: Normal Bolus Size: WFL Labial Seal: WFL Oral Prep Time: WFL A-P Transit: WFL Timing of Swallow: WFL Coughing/Throat Clear: No Recommendations - Speech Evaluation, Impression/Plan Impression: Pt NPO, admitted for vomiting. Pt able to swallow water well without overt signs of Dysphagia. - Dysphagia Impressions/Plan Swallowing Skills: WFL *Silent aspiration: cannot be R/O at bedside Recommendations: GI Consult
[2018-07-27 10:53] LABS: HEMATOCRIT 40.1 % (32.4-45.2); HEMOGLOBIN 13.4 GM/dL (10.7-15.3); MCH 31.6 pg (25.7-33.7); MCHC 33.5 g/dl (32.0-36.0); MEAN CELL VOLUME 94.2 fl (80-96); MEAN PLT VOLUME 9.5 fl (7.5-11.1); PLATELET COUNT 150 K/MM3 (134-434); RBC 4.25 M/mm3 (3.60-5.2); WHITE BLOOD COUNT 7.2 K/mm3 (4.0-10.0)
[2018-07-27 11:14] LABS: ANION GAP 7 MMOL/L (8-16); BLOOD UREA NITROGEN 8 mg/dL (7-18); CALCIUM 7.7 mg/dL (8.5-10.1); CHLORIDE 110 mmol/L (98-107); CO2 30 mmol/L (21-32); CREATININE 0.8 mg/dL (0.55-1.3); GLUCOSE,RANDOM 171 mg/dL (74-106); POTASSIUM 3.4 mmol/L (3.5-5.1); SODIUM 146 mmol/L (136-145)
--- NOTE | 2018-07-27 11:22 | EKG ---
Test Reason : Blood Pressure : / mmHG Vent. Rate : 083 BPM Atrial Rate : 083 BPM P-R Int : 240 ms QRS Dur : 096 ms QT Int : 452 ms P-R-T Axes : 057 -13 199 degrees QTc Int : 531 ms SINUS RHYTHM WITH 1ST DEGREE A-V BLOCK WITH PREMATURE SUPRAVENTRICULAR COMPLEXES AND WITH OCCASIONAL PREMATURE VENTRICULAR COMPLEXES CANNOT RULE OUT INFERIOR INFARCT , AGE UNDETERMINED ANTERIOR INFARCT (CITED ON OR BEFORE 18-MAR-2018) T WAVE ABNORMALITY, CONSIDER LATERAL ISCHEMIA PROLONGED QT ABNORMAL ECG Confirmed by LINO HOLDER MD ([id number]) on 07/27/2018 11:22:21 AM Referred By: Confirmed By:LINO HOLDER MD
[2018-07-27] MEDS: ENOXAPARIN NA (PORCINE) 120 MG/0.8 ML DISP.SYRIN SQ SCH (11:33)
[2018-07-27] MEDS ORDERED: ONDANSETRON 4 MG/2 ML VIAL IVPUSH PRN (11:38)
--- NOTE | 2018-07-27 11:49 | PN ---
Progress Note, Physician Chief Complaint: patient was recently at [facility] for vomintting was discharged sent home and since then at home she has been having loose stools and daughter says he rmom was getting lethargic and when the home blood draws company came found her to be hypokalemic today patient is more awake alert asking for water labs noted for low potassium - Current Medication List Current Medications: Active Medications Enoxaparin Sodium (Lovenox -) 40 mg SQ DAILY LEXI Potassium Chloride/Dextrose/Sod Cl (D5-1/2ns+20 Meq Kcl -) 20 meq in 1,000 mls @ 75 mls/hr IV ASDIR LEXI Levothyroxine Sodium (Synthroid Injection -) 75 mcg IVPUSH DAILY LEXI Metoprolol Tartrate (Lopressor Injection -) 5 mg IVPB BID LEXI Ondansetron HCl (Zofran Injection) 4 mg IVPUSH Q6H PRN PRN Reason: NAUSEA AND/OR VOMITING - Objective Vital Signs: Vital Signs Temperature 97.5 F L 07/27/18 06:00 Pulse Rate 88 07/27/18 09:56 Respiratory Rate 20 07/27/18 09:30 Blood Pressure 140/62 07/27/18 09:56 O2 Sat by Pulse Oximetry (%) 99 07/27/18 09:00 Constitutional: Yes: Calm Cardiovascular: Yes: Regular Rate and Rhythm, S1, S2 Respiratory: Yes: CTA Bilaterally Gastrointestinal: Yes: Normal Bowel Sounds, Soft Edema: No Neurological: Yes: Alert, Oriented Labs: CBC, BMP 07/27/18 09:40 07/27/18 09:40 Problem List - Problems (1) Loose stools Assessment/Plan: check c diff GI eval full liquid diet ct scan shows proctitis Code(s): R19.5 - OTHER FECAL ABNORMALITIES (2) Altered mental status Assessment/Plan: secondary to toxic metabolic encephalopathy due to UTI on iv abx ID eval Code(s): R41.82 - ALTERED MENTAL STATUS, UNSPECIFIED (3) Hypothyroid Assessment/Plan: tsh noted iv synthroid till change back to oral meds takes 100mcg of oral synthroid at home Code(s): E03.9 - HYPOTHYROIDISM, UNSPECIFIED (4) Diabetes Assessment/Plan: currently NPO ivf fluids Code(s): E11.9 - TYPE 2 DIABETES MELLITUS WITHOUT COMPLICATIONS Qualifiers: Diabetes mellitus type: type 2 Diabetes mellitus complication status: with neurologic complications Assessment/Plan spoke to daughter to discuss her condition
[2018-07-27 12:00] LABS: MAGNESIUM 1.2 mg/dL (1.8-2.4)
[2018-07-27] MEDS: D5-1/2NS+20 MEQ KCL - 20 MEQ/1,000 ML INFUS.BAG IV SCH (12:19)
[2018-07-27] MEDS: ENOXAPARIN NA (PORCINE) 40 MG/0.4 ML DISP.SYRIN SQ SCH (13:43)
[2018-07-27] MEDS: LEVOTHYROXINE SODIUM 100 MCG VIAL IVPUSH SCH (13:54)
[2018-07-27 14:02] LABS: MAGNESIUM 1.4 mg/dL (1.8-2.4)
--- NOTE | 2018-07-27 14:08 | CON.ID ---
Consult Consult Specialty:: infectious disease Referred by:: dr sidhu Reason for Consultation:: lethargy - History of Present Illness Chief Complaint: brought by daughter with lethargy and midepigastric pain. 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 2011 dobut MIBI : no STs; moderate reversible defect anterior and lateral faith confounded by large breast shadow; nl EF -> pt didn't follow as outpt as planned (was on DATP for a little while). Echo 09/13: nl LVEF, nl RV, nl valve fxn), HTN, Hyperlipdemia Pulmonary: Yes: COPD Gastrointestinal: Yes: Constipation, Hiatal Hernia, Other (gastroparesis, morbid obesity) Endocrine: Yes: Diabetes Mellitus (insulin-dependent for years -> uncontrolled) , Hypothyroidism Dermatology: Yes: Cellulitis (in past, with chronic and intermittent edema) - Past Surgical History Past Surgical History: Yes: Cholecystectomy, Stent (coronary stents), Upper Endoscopy - Alcohol/Substance Use Hx Alcohol Use: No History of Substance Use: reports: None - Smoking History Smoking history: Never smoked Have you smoked in the past 12 months: No Aproximately how many cigarettes per day: 0 If you are a former smoker, when did you quit?: 1984 - Social History Usual Living Arrangement: With Child ADL: Family Assistance History of Recent Travel: No Home Medications - Allergies Allergies/Adverse Reactions: Allergies Allergy/AdvReac Type Severity Reaction Status Date / Time vancomycin AdvReac Itching Verified 07/26/18 12:49 - Home Medications Home Medications: Ambulatory Orders Atorvastatin Ca [Lipitor] 20 mg PO HS tablet 02/27/18 Isosorbide Mononitrate [Imdur -] 30 mg PO DAILY tab.sr.24h 04/03/18 Metoprolol Tartrate [Lopressor -] 50 mg PO BID tablet 04/03/18 Sennosides [Senna -] 2 tab PO HS tablet 04/03/18 Insulin (Levemir) [Levemir Vial] 15 units SQ AM units 04/14/18 Levothyroxine [Synthroid -] 100 mcg PO DAILY@0700 04/16/18 Escitalopram Oxalate [Lexapro -] 5 mg PO DAILY tablet 04/21/18 Metoclopramide HCl [Reglan -] 10 mg PO TIDAC tablet 04/21/18 Potassium Chloride 40 meq PO DAILY #60 tablet.er 04/21/18 Insulin Aspart [Novolog] 100 unit SQ Q6H PRN 05/03/18 Omeprazole 40 mg PO DAILY 05/03/18 Family Disease History - Family Disease History Family Disease History: Diabetes: Daughter Review of Systems - Review of Systems Constitutional: denies: Fever Eyes: reports: No Symptoms HENT: reports: No Symptoms Neck: reports: No Symptoms Cardiovascular: reports: No Symptoms Respiratory: reports: No Symptoms Gastrointestinal: reports: Abdominal Pain, Diarrhea, Vomiting Genitourinary: reports: No Symptoms Physical Exam Vital Signs: Vital Signs Temperature 97.5 F L 07/27/18 06:00 Pulse Rate 88 07/27/18 09:56 Respiratory Rate 20 07/27/18 09:30 Blood Pressure 140/62 07/27/18 09:56 O2 Sat by Pulse Oximetry (%) 99 07/27/18 09:00 Constitutional: Yes: No Distress, Calm Eyes: Yes: Conjunctiva Clear HENT: Yes: Atraumatic, Normocephalic Neck: Yes: Supple Cardiovascular: Yes: Regular Rate and Rhythm Respiratory: Yes: Regular, CTA Bilaterally Gastrointestinal: Yes: Normal Bowel Sounds, Soft, Tenderness, Epigastrium. No: Tenderness, Rebound ...Rectal Exam: Yes: Deferred Extremities: Yes: WNL Edema: No Labs: CBC, BMP 07/27/18 09:40 07/27/18 09:40 Imaging - Results Chest X-ray: Report Reviewed Cat Scan: Report Reviewed Problem List - Problems (1) Lethargy Code(s): R53.83 - OTHER FATIGUE (2) Abdominal pain Code(s): R10.9 - UNSPECIFIED ABDOMINAL PAIN Qualifiers: Abdominal location: generalized Qualified Code(s): R10.84 - Generalized abdominal pain (3) Loose stools Code(s): R19.5 - OTHER FECAL ABNORMALITIES (4) UTI (urinary tract infection) Code(s): N39.0 - URINARY TRACT INFECTION, SITE NOT SPECIFIED Qualifiers: Assessment/Plan r/o cdiff send stool studies, cultures, cdiff r/u UTI- rocephin, pending cultures lethargy-suspect polyfactorial- uti, ?diarrhea recurrent vomiting d/w dr macias
[2018-07-27] MEDS ORDERED: CEFTRIAXONE 1 GM in DEXTROSE 5%-WATER - 50 ML IVPB ONE (14:55)
--- NOTE | 2018-07-27 16:34 | CON.GI ---
Consult Consult Specialty:: GI - History of Present Illness History of Present Illness: patient known to me. She has multiple admissions secondar to nausea and vomting. Patient with 6 cm hiatal hernia by EGD and CT which is slidiing. Today patient also noted to be lethargic. Patient being treated for UTI. Patient noted to have diarrhea. Spoke to her daugther no nasuea and vomiting. 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 2011 dobut MIBI : no STs; moderate reversible defect anterior and lateral faith confounded by large breast shadow; nl EF -> pt didn't follow as outpt as planned (was on DATP for a little while). Echo 09/13: nl LVEF, nl RV, nl valve fxn), HTN, Hyperlipdemia Pulmonary: Yes: COPD Gastrointestinal: Yes: Constipation, Hiatal Hernia, Other (gastroparesis, morbid obesity) Endocrine: Yes: Diabetes Mellitus (insulin-dependent for years -> uncontrolled) , Hypothyroidism Dermatology: Yes: Cellulitis (in past, with chronic and intermittent edema) - Past Surgical History Past Surgical History: Yes: Cholecystectomy, Stent (coronary stents), Upper Endoscopy - Alcohol/Substance Use Hx Alcohol Use: No History of Substance Use: reports: None - Smoking History Smoking history: Never smoked Have you smoked in the past 12 months: No Aproximately how many cigarettes per day: 0 If you are a former smoker, when did you quit?: 1984 - Social History Usual Living Arrangement: With Child ADL: Family Assistance History of Recent Travel: No Home Medications - Allergies Allergies/Adverse Reactions: Allergies Allergy/AdvReac Type Severity Reaction Status Date / Time vancomycin AdvReac Itching Verified 07/26/18 12:49 - Home Medications Home Medications: Ambulatory Orders Atorvastatin Ca [Lipitor] 20 mg PO HS tablet 02/27/18 Isosorbide Mononitrate [Imdur -] 30 mg PO DAILY tab.sr.24h 04/03/18 Metoprolol Tartrate [Lopressor -] 50 mg PO BID tablet 04/03/18 Sennosides [Senna -] 2 tab PO HS tablet 04/03/18 Insulin (Levemir) [Levemir Vial] 15 units SQ AM units 04/14/18 Levothyroxine [Synthroid -] 100 mcg PO DAILY@0700 04/16/18 Escitalopram Oxalate [Lexapro -] 5 mg PO DAILY tablet 04/21/18 Metoclopramide HCl [Reglan -] 10 mg PO TIDAC tablet 04/21/18 Potassium Chloride 40 meq PO DAILY #60 tablet.er 04/21/18 Insulin Aspart [Novolog] 100 unit SQ Q6H PRN 05/03/18 Omeprazole 40 mg PO DAILY 05/03/18 Family Disease History - Family Disease History Family Disease History: Diabetes: Daughter Physical Exam-GI Vital Signs: Vital Signs Temperature 98.6 F 07/27/18 14:08 Pulse Rate 82 07/27/18 14:08 Respiratory Rate 18 07/27/18 14:08 Blood Pressure 111/46 L 07/27/18 14:08 O2 Sat by Pulse Oximetry (%) 99 07/27/18 09:00 Constitutional: Yes: Well Nourished Eyes: Yes: Conjunctiva Clear HENT: Yes: Atraumatic Neck: Yes: Supple Cardiovascular: Yes: Regular Rate and Rhythm Respiratory: Yes: CTA Bilaterally ...Palpate: Yes: Soft. No: Firm/Rigid, Guarding, Hepatomegaly, Mass, Pulsatile Mass, Splenomegaly Labs: CBC, BMP 07/27/18 09:40 07/27/18 09:40 Problem List - Problems (1) Diarrhea Assessment/Plan: R> stool for C.diff low fiberand lactose free diet Code(s): R19.7 - DIARRHEA, UNSPECIFIED
[2018-07-28] MEDS: D5-1/2NS+20 MEQ KCL - 20 MEQ/1,000 ML INFUS.BAG IV SCH ×2 (03:05→15:46)
[2018-07-28 07:51] LABS: BASO % 0.5 % (0-2.0); EOS % 3.6 % (0-4.5); HEMATOCRIT 36.7 % (32.4-45.2); HEMOGLOBIN 12.2 GM/dL (10.7-15.3); LYMPH % 38.1 % (8-40); MCH 31.5 pg (25.7-33.7); MCHC 33.3 g/dl (32.0-36.0); MEAN CELL VOLUME 94.8 fl (80-96); MEAN PLT VOLUME 9.4 fl (7.5-11.1); NEUT % 46.8 % (42.8-82.8); PLATELET COUNT 140 K/MM3 (134-434); RBC 3.88 M/mm3 (3.60-5.2); RDW 19.1 % (11.6-15.6); WHITE BLOOD COUNT 6.7 K/mm3 (4.0-10.0)
[2018-07-28 08:08] LABS: ALBUMIN 1.6 g/dl (3.4-5.0); ALK PHOS 58 U/L (45-117); ANION GAP 5 MMOL/L (8-16); BILIRUBIN,TOTAL 0.8 mg/dL (0.2-1); BLOOD UREA NITROGEN 6 mg/dL (7-18); CALCIUM 7.3 mg/dL (8.5-10.1); CHLORIDE 110 mmol/L (98-107); CO2 28 mmol/L (21-32); CREATININE 0.6 mg/dL (0.55-1.3); GLUCOSE,RANDOM 192 mg/dL (74-106); SGOT/AST 20 U/L (15-37); SGPT/ALT 11 U/L (13-61); SODIUM 143 mmol/L (136-145); TOT PROT 4.7 g/dl (6.4-8.2)
[2018-07-28 08:25] LABS: POTASSIUM 2.9 mmol/L (3.5-5.1)
[2018-07-28] MEDS ORDERED: POTASSIUM CHLORIDE ORAL LIQUID 20 MEQ/15 ML PO ONE (08:28)
[2018-07-28] MEDS: KCL 10 MEQ IVPB 10 MEQ/100 ML INFUS.BAG IVPB SCH ×2 (09:13→15:44)
[2018-07-28] MEDS ORDERED: CEFTRIAXONE 1 GM in DEXTROSE 5%-WATER - 50 ML IVPB SCH (10:00)
[2018-07-28] MEDS ORDERED: MAGNESIUM SULF 50% (8.12 MEQ/2 ML-1 GM VIAL) IVPB ONE ×2 (10:09→20:30)
[2018-07-28] MEDS ORDERED: DEXTROSE 5%-WATER - 50 ML IVPB ONE (11:00)
[2018-07-28] MEDS ORDERED: cefTRIAXone SODIUM 1 GM VIAL ONE (11:00)
[2018-07-28] MEDS: METOPROLOL TARTRATE 5 MG/5 ML VIAL IVPB SCH (11:01)
[2018-07-28] MEDS: ENOXAPARIN NA (PORCINE) 40 MG/0.4 ML DISP.SYRIN SQ SCH (11:02)
--- NOTE | 2018-07-28 11:47 | PN ---
Progress Note, Physician Chief Complaint: UTI TOxic Metabolic Ecephalopathy History of Present Illness: Previous notes ad events reviewed awake and alert Noted with low K and M NAD no reports of nausea/vomiting - Current Medication List Current Medications: Active Medications Enoxaparin Sodium (Lovenox -) 40 mg SQ DAILY [facility] Last Admin: 07/28/18 11:02 Dose: 40 mg Potassium Chloride/Dextrose/Sod Cl (D5-1/2ns+20 Meq Kcl -) 20 meq in 1,000 mls @ 75 mls/hr IV ASDIR [facility] Last Admin: 07/28/18 03:05 Dose: 75 mls/hr Ceftriaxone Sodium 1 gm/ (Dextrose) 50 mls @ 100 mls/hr IVPB DAILY [facility]; Protocol Insulin Aspart (Novolog Vial Sliding Scale -) 1 vial SQ ACHS [facility]; Protocol Levothyroxine Sodium (Synthroid Injection -) 75 mcg IVPUSH DAILY [facility] Last Admin: 07/27/18 13:54 Dose: 75 mcg Metoprolol Tartrate (Lopressor Injection -) 5 mg IVPB BID [facility] Last Admin: 07/28/18 11:01 Dose: Not Given Ondansetron HCl (Zofran Injection) 4 mg IVPUSH Q6H PRN PRN Reason: NAUSEA AND/OR VOMITING Last Admin: 07/27/18 21:56 Dose: 4 mg - Objective Vital Signs: Vital Signs Temperature 98.1 F 07/28/18 10:55 Pulse Rate 72 07/28/18 11:01 Respiratory Rate 20 07/28/18 10:48 Blood Pressure 100/54 L 07/28/18 11:01 O2 Sat by Pulse Oximetry (%) 97 07/27/18 21:00 Constitutional: Yes: No Distress, Calm Eyes: Yes: Conjunctiva Clear HENT: Yes: Atraumatic Cardiovascular: Yes: Regular Rate and Rhythm Respiratory: Yes: Regular, Diminished Gastrointestinal: Yes: Normal Bowel Sounds, Soft, Abdomen, Obese Genitourinary: Yes: Incontinence Musculoskeletal: Yes: Muscle Weakness Extremities: Yes: WNL Edema: No Neurological: Yes: Alert, Pre-Existing Deficit Psychiatric: Yes: Alert Labs: CBC, BMP 07/28/18 06:35 07/28/18 06:35 Microbiology 07/26/18 14:56 Urine - Urine Clean Catch Urine Culture - Final Escherichia Coli Esbl Hole Puncher Strap Lactose Fermenting Neg Bacilli#2 Problem List - Problems (1) Complicated UTI (urinary tract infection) Assessment/Plan: -ID on board -no leukocytosis, afebrile -IV ceftriaxone -UC positive for ESBL and E.Coli Code(s): N39.0 - URINARY TRACT INFECTION, SITE NOT SPECIFIED (2) Diarrhea Assessment/Plan: -sttol culture, c-diff, wbc pending Code(s): R19.7 - DIARRHEA, UNSPECIFIED (3) Afib Assessment/Plan: -continue Enoxaprin SQ Code(s): I48.91 - UNSPECIFIED ATRIAL FIBRILLATION Qualifiers: Atrial fibrillation type: paroxysmal Qualified Code(s): I48.0 - Paroxysmal atrial fibrillation (4) Altered mental status Assessment/Plan: -2/2 toxic metabolic encephalopathy -UC positive -IV Ceftriaxone Code(s): R41.82 - ALTERED MENTAL STATUS, UNSPECIFIED (5) Diabetes mellitus with peripheral vascular disease Assessment/Plan: -BG ACHS -ISS Code(s): E11.51 - TYPE 2 DIABETES W DIABETIC PERIPHERAL ANGIOPATH W/O GANGRENE (6) Hypokalemia Assessment/Plan: -K 2.9 -KCl 40mEq PO x 1 KCl 10mEq IVPB x 2 -continue d5 1/2NS + KCl 20mEq -monitor electrolyte and replete daily Code(s): E87.6 - HYPOKALEMIA (7) Hypomagnesemia Assessment/Plan: -Mg 1.2 -Magnesium 1g IVPB x 1 -monitor electryltes and replete as needed Code(s): E83.42 - HYPOMAGNESEMIA (8) Hypothyroid Assessment/Plan: -Levothyroxine 75mcg Code(s): E03.9 - HYPOTHYROIDISM, UNSPECIFIED Assessment/Plan see problem list dvt ppx
--- NOTE | 2018-07-28 12:19 | PN ---
Progress Note (short form) - Note Progress Note: not eating she is alert, complains of mid epigastric pain no fevers no diarrhea Vital Signs Period Temp Pulse Resp BP Sys/Gu Pulse Ox Last 24 Hr 97.8 F-98.6 F 72-98 18-20 100-155/46-79 97 cor-rrr lungs clear abd soft, mild midepigastric tenderness to palpation +suprapubic discomfort to palpation ext no edema CBC, BMP 07/28/18 06:35 07/28/18 06:35 Microbiology 07/26/18 14:56 Urine - Urine Clean Catch Urine Culture - Final Escherichia Coli Esbl Loan Manager Lactose Fermenting Neg Bacilli#2 a/p no diarrhea since admission given suprapubic discomfort will treat UTI with ertapenem, switch to -po macrobid when taking po well contact isolation history of Hiatal hernia Problem List - Problems (1) Lethargy Code(s): R53.83 - OTHER FATIGUE (2) Abdominal pain Code(s): R10.9 - UNSPECIFIED ABDOMINAL PAIN Qualifiers: Abdominal location: generalized Qualified Code(s): R10.84 - Generalized abdominal pain (3) Loose stools Code(s): R19.5 - OTHER FECAL ABNORMALITIES (4) UTI (urinary tract infection) Code(s): N39.0 - URINARY TRACT INFECTION, SITE NOT SPECIFIED Qualifiers:
[2018-07-28] MEDS: INSULIN SLIDING SCALE (NOVOLOG) 1 VIAL SQ SCH ×3 (12:50→22:01)
[2018-07-28] MEDS: LEVOTHYROXINE SODIUM 100 MCG VIAL IVPUSH SCH ×2 (15:45→21:36)
[2018-07-28] MEDS: ERTAPENEM SODIUM 1 GM in SODIUM CHLORIDE 50 ML IVPB SCH ×2 (15:46→23:37)
[2018-07-28] MEDS: METOPROLOL TARTRATE 50 MG TABLET (FP) PO SCH ×2 (15:53→21:57)
[2018-07-28] MEDS ORDERED: INSULIN (NOVOLOG) ASPART 100 UNITS/ML 10ML VIAL ONE (19:02)
[2018-07-28] MEDS ORDERED: KCL 10 MEQ IVPB 10 MEQ/100 ML INFUS.BAG IVPB SCH (20:30)
--- NOTE | 2018-07-28 23:43 | CONSULT ---
Consult Consult Specialty:: endocrine Reason for Consultation:: diabetes mellitus 2/ hypothyroid - History of Present Illness Chief Complaint: weakness confused History of Present Illness: 88 year female past medical history of hypertension, type II diabetes mellitus, gastroparesis, coronary artery disease, NSTEMI, paraoxysmal atrila fibrillation (on Eliquis as per ER note, med not seen in med rec), diastolic congestive heart failure ( EF 65 % by echo 2018, on lasix as per ER note,med not seen in med rec ), and hypothyroidism who presents to the emergency department for abdominal pain,confused,poor intake, - 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 2011 dobut MIBI : no STs; moderate reversible defect anterior and lateral faith confounded by large breast shadow; nl EF -> pt didn't follow as outpt as planned (was on DATP for a little while). Echo 09/13: nl LVEF, nl RV, nl valve fxn), HTN, Hyperlipdemia Pulmonary: Yes: COPD Gastrointestinal: Yes: Constipation, Hiatal Hernia, Other (gastroparesis, morbid obesity) Endocrine: Yes: Diabetes Mellitus (insulin-dependent for years -> uncontrolled) , Hypothyroidism Dermatology: Yes: Cellulitis (in past, with chronic and intermittent edema) - Past Surgical History Past Surgical History: Yes: Cholecystectomy, Stent (coronary stents), Upper Endoscopy - Alcohol/Substance Use Hx Alcohol Use: No History of Substance Use: reports: None - Smoking History Smoking history: Never smoked Have you smoked in the past 12 months: No Aproximately how many cigarettes per day: 0 If you are a former smoker, when did you quit?: 1984 - Social History Usual Living Arrangement: With Child ADL: Family Assistance History of Recent Travel: No Home Medications - Allergies Allergies/Adverse Reactions: Allergies Allergy/AdvReac Type Severity Reaction Status Date / Time vancomycin AdvReac Itching Verified 07/26/18 12:49 - Home Medications Home Medications: Ambulatory Orders Atorvastatin Ca [Lipitor] 20 mg PO HS tablet 02/27/18 Isosorbide Mononitrate [Imdur -] 30 mg PO DAILY tab.sr.24h 04/03/18 Metoprolol Tartrate [Lopressor -] 50 mg PO BID tablet 04/03/18 Sennosides [Senna -] 2 tab PO HS tablet 04/03/18 Insulin (Levemir) [Levemir Vial] 15 units SQ AM units 04/14/18 Levothyroxine [Synthroid -] 100 mcg PO DAILY@0700 04/16/18 Escitalopram Oxalate [Lexapro -] 5 mg PO DAILY tablet 04/21/18 Metoclopramide HCl [Reglan -] 10 mg PO TIDAC tablet 04/21/18 Potassium Chloride 40 meq PO DAILY #60 tablet.er 04/21/18 Insulin Aspart [Novolog] 100 unit SQ Q6H PRN 05/03/18 Omeprazole 40 mg PO DAILY 05/03/18 Family Disease History - Family Disease History Family Disease History: Diabetes: Daughter Review of Systems - Review of Systems Constitutional: reports: Lethargy, Weakness Eyes: reports: No Symptoms HENT: reports: Throat Pain, Ringing in Ears Neck: reports: No Symptoms Cardiovascular: reports: Shortness of Breath Respiratory: reports: Exercise Intolerance, SOB on Exertion Gastrointestinal: reports: Constipation, Nausea Genitourinary: reports: Burning Breasts: reports: No Symptoms Reported Musculoskeletal: reports: Muscle Pain, Muscle Cramps, Muscle Weakness Neurological: reports: Confusion, Numbness, Weakness Endocrine: reports: Unexplained Weight Gain Physical Exam Vital Signs: Vital Signs Temperature 98.1 F 07/28/18 15:05 Pulse Rate 58 L 07/28/18 21:56 Respiratory Rate 18 07/28/18 21:56 Blood Pressure 124/71 07/28/18 21:56 O2 Sat by Pulse Oximetry (%) 96 07/28/18 11:05 Constitutional: Yes: Calm Eyes: Yes: EOM Intact HENT: Yes: Normocephalic Neck: Yes: Trachea Midline Cardiovascular: Yes: Regular Rate and Rhythm Respiratory: Yes: CTA Bilaterally Gastrointestinal: Yes: Normal Bowel Sounds ...Rectal Exam: Yes: Deferred Renal/: Yes: WNL Musculoskeletal: Yes: Joint Swelling, Muscle Pain, Muscle Weakness Edema: Yes Wound/Incision: Yes: Clean/Dry Neurological: Yes: Alert, Confusion, Weakness Labs: CBC, BMP 07/28/18 06:35 07/28/18 06:35 Problem List - Problems (1) Type 2 diabetes mellitus with diabetic nephropathy Code(s): E11.21 - TYPE 2 DIABETES MELLITUS WITH DIABETIC NEPHROPATHY Qualifiers: Diabetes mellitus custodial insulin use: with exterminator helper use Qualified Code( s): E11.21 - Type 2 diabetes mellitus with diabetic nephropathy; Z79.4 - terminal press operator (current) use of insulin (2) Complicated UTI (urinary tract infection) Code(s): N39.0 - URINARY TRACT INFECTION, SITE NOT SPECIFIED (3) Diarrhea Code(s): R19.7 - DIARRHEA, UNSPECIFIED (4) Lethargy Code(s): R53.83 - OTHER FATIGUE (5) Abdominal pain Code(s): R10.9 - UNSPECIFIED ABDOMINAL PAIN Qualifiers: Abdominal location: generalized Qualified Code(s): R10.84 - Generalized abdominal pain (6) Acute metabolic encephalopathy Code(s): G93.41 - METABOLIC ENCEPHALOPATHY Assessment/Plan Current Active Problems diabetes mellitus 2/neuropathy hypothyroidism Complicated UTI (urinary tract infection) (Acute) Diarrhea (Acute) Lethargy (Acute) Loose stools (Acute) Abnormal Lab Results 07/28/18 07/28/18 06:35 06:35 RDW 19.1 H Monocytes % 11.0 H Potassium 2.9 L* Chloride 110 H Anion Gap 5 L BUN 6 L Random Glucose 192 H Calcium 7.3 L ALT 11 L Total Protein 4.7 L Albumin 1.6 L Laboratory Results - last 24 hr 07/28/18 07/28/18 07/28/18 06:35 06:35 12:17 WBC 6.7 RBC 3.88 Hgb 12.2 Hct 36.7 MCV 94.8 MCH 31.5 MCHC 33.3 RDW 19.1 H Plt Count 140 MPV 9.4 Absolute Neuts (auto) 3.2 Neutrophils % 46.8 Lymphocytes % 38.1 D Monocytes % 11.0 H Eosinophils % 3.6 D Basophils % 0.5 Nucleated RBC % 0 Sodium 143 Potassium 2.9 L* Chloride 110 H Carbon Dioxide 28 Anion Gap 5 L BUN 6 L Creatinine 0.6 Creat Clearance w eGFR 94.56 POC Glucometer 135 Random Glucose 192 H Calcium 7.3 L Total Bilirubin 0.8 AST 20 ALT 11 L Alkaline Phosphatase 58 Total Protein 4.7 L Albumin 1.6 L 07/28/18 07/28/18 17:32 21:59 WBC RBC Hgb Hct MCV MCH MCHC RDW Plt Count MPV Absolute Neuts (auto) Neutrophils % Lymphocytes % Monocytes % Eosinophils % Basophils % Nucleated RBC % Sodium Potassium Chloride Carbon Dioxide Anion Gap BUN Creatinine Creat Clearance w eGFR POC Glucometer 207 148 Random Glucose Calcium Total Bilirubin AST ALT Alkaline Phosphatase Total Protein Albumin Laboratory Tests 07/26/18 07/27/18 07/28/18 12:30 06:26 12:17 POC Glucometer 155 135 TSH 1.83 Free T4 1.83 H 07/28/18 07/28/18 17:32 21:59 POC Glucometer 207 148 TSH Free T4 plan: bgm achs novolog scale synthroid 75 mcg daily once taking better diet intake will resume levemir 10 units daily
[2018-07-29] MEDS: INSULIN SLIDING SCALE (NOVOLOG) 1 VIAL SQ SCH ×4 (06:04→21:43)
[2018-07-29] MEDS ORDERED: LEVOTHYROXINE NA 25 MCG TABLET (FP) PO SCH ×2 (07:00)
[2018-07-29 08:39] LABS: HEMATOCRIT 35.6 % (32.4-45.2); MCH 31.8 pg (25.7-33.7); MCHC 33.6 g/dl (32.0-36.0); MEAN CELL VOLUME 94.7 fl (80-96); MEAN PLT VOLUME 9.2 fl (7.5-11.1); PLATELET COUNT 147 K/MM3 (134-434); RBC 3.76 M/mm3 (3.60-5.2); RDW 18.8 % (11.6-15.6); WHITE BLOOD COUNT 6.7 K/mm3 (4.0-10.0)
[2018-07-29 09:07] LABS: ALBUMIN 1.6 g/dl (3.4-5.0); ALK PHOS 59 U/L (45-117); ANION GAP 7 MMOL/L (8-16); BILIRUBIN,TOTAL 0.6 mg/dL (0.2-1); BLOOD UREA NITROGEN 7 mg/dL (7-18); CALCIUM 7.5 mg/dL (8.5-10.1); CHLORIDE 112 mmol/L (98-107); CO2 27 mmol/L (21-32); CREATININE 0.7 mg/dL (0.55-1.3); GLUCOSE,RANDOM 183 mg/dL (74-106); POTASSIUM 3.9 mmol/L (3.5-5.1); SGOT/AST 26 U/L (15-37); SGPT/ALT 11 U/L (13-61); SODIUM 147 mmol/L (136-145); TOT PROT 4.8 g/dl (6.4-8.2)
[2018-07-29] MEDS: ENOXAPARIN NA (PORCINE) 40 MG/0.4 ML DISP.SYRIN SQ SCH (11:05)
[2018-07-29] MEDS: METOPROLOL TARTRATE 50 MG TABLET (FP) PO SCH ×2 (11:06→23:38)
--- NOTE | 2018-07-29 13:42 | PN ---
Progress Note, Physician Chief Complaint: UTI TOxic Metabolic Ecephalopathy History of Present Illness: Previous notes ad events reviewed awake and alert NAD patient is more lethargic today, arouseable to tactile stimuli K level improved one episode of loose stool during the night - Current Medication List Current Medications: Active Medications Enoxaparin Sodium (Lovenox -) 40 mg SQ DAILY [facility] Last Admin: 07/29/18 11:05 Dose: 40 mg Potassium Chloride/Dextrose/Sod Cl (D5-1/2ns+20 Meq Kcl -) 20 meq in 1,000 mls @ 75 mls/hr IV ASDIR [facility] Last Admin: 07/28/18 15:46 Dose: Not Given Ertapenem 1 gm/ Sodium (Chloride) 50 mls @ 100 mls/hr IVPB DAILY [facility] Last Admin: 07/28/18 23:37 Dose: 100 mls/hr Insulin Aspart (Novolog Vial Sliding Scale -) 1 vial SQ ACHS [facility]; Protocol Last Admin: 07/29/18 11:30 Dose: Not Given Levothyroxine Sodium (Synthroid -) 75 mcg PO DAILY@0700 [facility] Metoprolol Tartrate (Lopressor -) 50 mg PO BID [facility] Last Admin: 07/29/18 11:06 Dose: 50 mg - Objective Vital Signs: Vital Signs Temperature 98.4 F 07/29/18 06:18 Pulse Rate 75 07/29/18 11:02 Respiratory Rate 20 07/29/18 11:02 Blood Pressure 154/70 07/29/18 11:02 O2 Sat by Pulse Oximetry (%) 96 07/28/18 11:05 Constitutional: Yes: No Distress, Calm Eyes: Yes: Conjunctiva Clear HENT: Yes: Atraumatic Cardiovascular: Yes: Regular Rate and Rhythm Respiratory: Yes: Regular, Diminished, On Nasal O2 Gastrointestinal: Yes: Normal Bowel Sounds, Soft Genitourinary: Yes: Incontinence Musculoskeletal: Yes: Muscle Weakness Extremities: Yes: WNL Edema: No Neurological: Yes: Alert, Pre-Existing Deficit Psychiatric: Yes: Alert Labs: CBC, BMP 07/29/18 07:00 07/29/18 07:00 Microbiology 07/28/18 23:59 Stool Clostridioides difficile Antigen - Final 07/28/18 23:59 Stool Clostridioides difficile Toxin Assay - Final 07/26/18 14:56 Urine - Urine Clean Catch Urine Culture - Final Escherichia Coli Esbl Violin Teacher Lactose Fermenting Neg Bacilli#2 Problem List - Problems (1) Complicated UTI (urinary tract infection) Assessment/Plan: -ID on board -no leukocytosis, afebrile -IV ceftriaxone -UC positive for ESBL and E.Coli Code(s): N39.0 - URINARY TRACT INFECTION, SITE NOT SPECIFIED (2) Diarrhea Assessment/Plan: -sttol culture, wbc pending -c-diff positive antigen, negative toxin Code(s): R19.7 - DIARRHEA, UNSPECIFIED (3) Afib Assessment/Plan: -continue Enoxaprin SQ Code(s): I48.91 - UNSPECIFIED ATRIAL FIBRILLATION Qualifiers: Atrial fibrillation type: paroxysmal Qualified Code(s): I48.0 - Paroxysmal atrial fibrillation (4) Altered mental status Assessment/Plan: -2/2 toxic metabolic encephalopathy -UC positive -IV Ceftriaxone Code(s): R41.82 - ALTERED MENTAL STATUS, UNSPECIFIED (5) Diabetes mellitus with peripheral vascular disease Assessment/Plan: -BG ACHS -ISS -endo on board -will start Levemir when resume normal diet Code(s): E11.51 - TYPE 2 DIABETES W DIABETIC PERIPHERAL ANGIOPATH W/O GANGRENE (6) Hypokalemia Assessment/Plan: -K 3.9 -resolved -monitor electrolyte and replete daily Code(s): E87.6 - HYPOKALEMIA (7) Hypomagnesemia Assessment/Plan: -Mg 1.2 on 07/28 -monitor electryltes and replete as needed Code(s): E83.42 - HYPOMAGNESEMIA (8) Hypothyroid Assessment/Plan: -Levothyroxine 75mcg Code(s): E03.9 - HYPOTHYROIDISM, UNSPECIFIED Assessment/Plan see problem list dvt ppx
--- NOTE | 2018-07-29 14:08 | PN ---
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 Lactose Fermenting Neg Bacilli#2 a/p she is not havig diarrhea here in the hospital so for now no need to treat for cdiff (antigen positive, toxin negative) switch to po macrobid for UTI- day #2 erapenem - -continue macrobid for 5 days contact isolation ecoli esbl history of Hiatal hernia please call back if needed Problem List - Problems (1) Lethargy Code(s): R53.83 - OTHER FATIGUE (2) Abdominal pain Code(s): R10.9 - UNSPECIFIED ABDOMINAL PAIN Qualifiers: Abdominal location: generalized Qualified Code(s): R10.84 - Generalized abdominal pain (3) Loose stools Code(s): R19.5 - OTHER FECAL ABNORMALITIES (4) UTI (urinary tract infection) Code(s): N39.0 - URINARY TRACT INFECTION, SITE NOT SPECIFIED Qualifiers:
[2018-07-29] MEDS: ERTAPENEM SODIUM 1 GM in SODIUM CHLORIDE 50 ML IVPB SCH (14:30)
[2018-07-29] MEDS ORDERED: PT OWN MED DRAWER 7, Y5N ONE ×2 (17:59→18:05)
[2018-07-29] MEDS: D5-1/2NS+20 MEQ KCL - 20 MEQ/1,000 ML INFUS.BAG IV SCH (18:02)
[2018-07-29] MEDS: NITROFURANTOIN MACROCRYSTAL 50 MG CAPSULE (FP) PO SCH (18:06)
[2018-07-29] MEDS: LEVOTHYROXINE NA 75 MCG TABLET (FP) PO SCH (19:01)
[2018-07-29] MEDS ORDERED: PROMETHAZINE HCL 25 MG/1 ML VIAL IVPB ONE (19:16)
[2018-07-29] MEDS ORDERED: ACETAMINOPHEN 1000 MG/100 ML VIAL (NON FORMULARY) IVPB ONE (19:17)
[2018-07-30] MEDS: NITROFURANTOIN MACROCRYSTAL 50 MG CAPSULE (FP) PO SCH ×4 (00:30→17:32)
[2018-07-30] MEDS: INSULIN SLIDING SCALE (NOVOLOG) 1 VIAL SQ SCH ×4 (06:18→22:00)
[2018-07-30] MEDS: LEVOTHYROXINE NA 75 MCG TABLET (FP) PO SCH (06:19)
[2018-07-30 07:43] LABS: ALBUMIN 1.6 g/dl (3.4-5.0); ALK PHOS 58 U/L (45-117); ANION GAP 5 MMOL/L (8-16); BILIRUBIN,TOTAL 0.6 mg/dL (0.2-1); BLOOD UREA NITROGEN 6 mg/dL (7-18); CALCIUM 7.4 mg/dL (8.5-10.1); CHLORIDE 114 mmol/L (98-107); CO2 28 mmol/L (21-32); CREATININE 0.7 mg/dL (0.55-1.3); GLUCOSE,RANDOM 162 mg/dL (74-106); POTASSIUM 4.9 mmol/L (3.5-5.1); SGOT/AST 35 U/L (15-37); SGPT/ALT 15 U/L (13-61); SODIUM 147 mmol/L (136-145); TOT PROT 4.8 g/dl (6.4-8.2)
[2018-07-30 07:49] LABS: HEMATOCRIT 34.9 % (32.4-45.2); HEMOGLOBIN 11.7 GM/dL (10.7-15.3); MCHC 33.5 g/dl (32.0-36.0); MEAN CELL VOLUME 95.6 fl (80-96); MEAN PLT VOLUME 9.3 fl (7.5-11.1); PLATELET COUNT 133 K/MM3 (134-434); RBC 3.65 M/mm3 (3.60-5.2)
[2018-07-30] MEDS: D5-1/2NS+20 MEQ KCL - 20 MEQ/1,000 ML INFUS.BAG IV SCH (08:30)
--- NOTE | 2018-07-30 09:24 | PN.GI ---
GI Progress Note Subjective: Patient noted to be lethargic on examination, but responsive to tactile stimuli and able to follow commands. Patient states she does have some generalized abdominal pain. No episodes of loose stool reported during the night. C-diff result shows positive antigen and negative toxin. Stool culture results pending. Patient has been reported to have poor appetite. Abdominal US shows fatty liver vs hepatocellular disease, s/p cholecystectomy, and normal size CBD. No reports nausea, vomiting, rectal bleeding, melena. - Objective Vital Signs: Vital Signs Temperature 97.8 F 07/30/18 06:00 Pulse Rate 67 07/30/18 06:00 Respiratory Rate 18 07/30/18 06:00 Blood Pressure 154/84 07/30/18 06:00 O2 Sat by Pulse Oximetry (%) 99 07/29/18 21:00 Constitutional: No Distress, Calm, Obese HENT: Yes: Atraumatic Cardiovascular: Yes: Regular Rate and Rhythm Respiratory: Yes: Regular, Diminished Gastrointestinal Inspection: Yes: WNL. No: Ascites, Distention, Hernia, Scars, Other ...Auscultate: Yes: Normoactive Bowel Sounds. No: Hyperactive Bowel Sounds, Hypoactive Bowel Sounds, No Bowel Sounds, Other ...Palpate: Yes: Soft, Tenderness (diffuse). No: Firm/Rigid, Guarding, Hepatomegaly, Mass, Pulsatile Mass, Splenomegaly, Tenderness, Epigastium, Tenderness, Rebound, Other ...Percussion: Yes: Dullness. No: Fluid Wave, Tympanitic, Other Neurological: Yes: Lethargy Labs: CBC, BMP 07/30/18 07:00 07/30/18 06:30 Problem List - Problems (1) Diarrhea Assessment/Plan: R> stool for C.diff with positive antigen >Flagyl 500mg IVPB q8h >stool culture results pending low fiberand lactose free diet Code(s): R19.7 - DIARRHEA, UNSPECIFIED
[2018-07-30] MEDS: ENOXAPARIN NA (PORCINE) 40 MG/0.4 ML DISP.SYRIN SQ SCH (10:30)
[2018-07-30] MEDS: METOPROLOL TARTRATE 50 MG TABLET (FP) PO SCH ×2 (10:30→22:09)
--- NOTE | 2018-07-30 12:07 | CONSULT ---
Consult - text type - Consultation Consultation Note: NEUROLOGY CONSULT GREATLY APPRECIATED: Events reviewed and discussed with RN and IVANIA Puga. History provided by daughter Ros. This 88 yo RH Irish speaking female lives with her and family. PMX HTN, DM, gastroparesis, CAD, afib on AC, hypothyroidism and hx of NSTEMI. Maitained on: atorvastatin, isosorbide, metoprolol, insulin, levothyroxine, escitalopram, metoclopramide, omeprazole. Daughter notes approximately 1 year of progressive gait decline and history of falls, now essentially bed bound. Daughter also notes approximately 6 months of cognitive decline and "forgetting where she is" at times. Has required recurrent hospitalizations for persistent nausea and vomiting attributed to Hiatal hernia, treated conservatively. Admitted with similar symptoms of N, V, diarrhea, found with + ESBL in urine and C. Diff antigen currently on macrobid and flagyl. Head CT x 2 (reviewed): Mod atrophy. Periventricular ischemic changes. Calcified carotid arteries. Brain MRI 03/15/17 (reviewed): Mod atrophy with ex vacuo ventricular dilation. Diffuse periventricular ischemia, chronic R pontine infarct and, Chronic B/L thalamic lacunae. Xray LS spine (05/26/14): grade 1 anteriolithesis of L4 over L5 and diffuse DJD TSH 1.83 Urine WBC = 219 ABEL: Cor irregular. No bruit. Neck supple. Early contractures at knees, left elbow. Arms swolllen. Wearing diaper. +/- SLR B/L. NEURO: Eyes closed, speech sparse. Ox "Hospital." [facility] [place]. Follows simple commands. + glabella CNII-CNXII: Eyes respond to threat. Reduced rapid tongue mvmt's. Gag ok. Motor: Strong grasps. +cogwheeling L > R. Arm Reflexes present and symmetric. Areflexic in legs. Plantars silent. 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 contractures Thank you very much, Thomas Fairbanks MD
--- NOTE | 2018-07-30 13:44 | PN ---
Progress Note, Physician Chief Complaint: patient seen and examined in isolation for c diff seen by neurology - Current Medication List Current Medications: Active Medications Enoxaparin Sodium (Lovenox -) 40 mg SQ DAILY [facility] Last Admin: 07/30/18 10:30 Dose: 40 mg Potassium Chloride/Dextrose/Sod Cl (D5-1/2ns+20 Meq Kcl -) 20 meq in 1,000 mls @ 42 mls/hr IV ASDIR [facility] Last Admin: 07/30/18 08:30 Dose: Not Given Metronidazole (Flagyl 500mg Premixed Ivpb -) 500 mg in 100 mls @ 100 mls/hr IVPB Q8H-IV [facility] Last Admin: 07/30/18 10:29 Dose: 100 mls/hr Insulin Aspart (Novolog Vial Sliding Scale -) 1 vial SQ ACHS [facility]; Protocol Last Admin: 07/30/18 12:03 Dose: Not Given Levothyroxine Sodium (Synthroid -) 75 mcg PO DAILY@0700 [facility] Last Admin: 07/30/18 06:19 Dose: 75 mcg Metoprolol Tartrate (Lopressor -) 50 mg PO BID [facility] Last Admin: 07/30/18 10:30 Dose: 50 mg Nitrofurantoin Macrocrystals (Macrodantin -) 50 mg PO Q6HPO [facility] Last Admin: 07/30/18 12:09 Dose: 50 mg - Objective Vital Signs: Vital Signs Temperature 97.8 F 07/30/18 06:00 Pulse Rate 68 07/30/18 12:00 Respiratory Rate 18 07/30/18 12:00 Blood Pressure 188/80 H 07/30/18 12:00 O2 Sat by Pulse Oximetry (%) 100 07/30/18 09:00 Constitutional: Yes: Calm Cardiovascular: Yes: Regular Rate and Rhythm, S1, S2 Respiratory: Yes: CTA Bilaterally, Diminished (at bases) Gastrointestinal: Yes: Normal Bowel Sounds, Soft Labs: CBC, BMP 07/30/18 07:00 07/30/18 06:30 Problem List - Problems (1) Loose stools Assessment/Plan: cpostive c diff - isolation on flagyl GI eval full liquid diet ct scan shows proctitis Microbiology 07/28/18 23:59 Stool Clostridioides difficile Antigen - Final 07/28/18 23:59 Stool Clostridioides difficile Toxin Assay - Final Code(s): R19.5 - OTHER FECAL ABNORMALITIES (2) Altered mental status Assessment/Plan: secondary to toxic metabolic encephalopathy due to UTI on iv abx neurology on board MRI of brain carotid doppler ordered Code(s): R41.82 - ALTERED MENTAL STATUS, UNSPECIFIED (3) Hypothyroid Assessment/Plan: tsh noted seen by endocrine synthroid dose Code(s): E03.9 - HYPOTHYROIDISM, UNSPECIFIED (4) Diabetes Assessment/Plan: currently NPO ivf fluids Code(s): E11.9 - TYPE 2 DIABETES MELLITUS WITHOUT COMPLICATIONS Qualifiers: Diabetes mellitus type: type 2 Diabetes mellitus complication status: with neurologic complications (5) Complicated UTI (urinary tract infection) Assessment/Plan: Microbiology 07/26/18 14:56 Urine - Urine Clean Catch Urine Culture - Final Escherichia Coli Esbl Insole Tape Stitcher Uco Lactose Fermenting Neg Bacilli#2 on nitrofurantoin Code(s): N39.0 - URINARY TRACT INFECTION, SITE NOT SPECIFIED
[2018-07-30] MEDS ORDERED: PT OWN MED DRAWER 7, Y5N ONE ×3 (17:27→22:22)
[2018-07-30] MEDS: CHOLESTYRAMINE/SUCROSE 4 GM PACKET PO SCH (18:05)
--- NOTE | 2018-07-31 00:27 | PN ---
Progress Note, Physician Chief Complaint: awake weak to respond - Current Medication List Current Medications: Active Medications Cholestyramine Resin (Questran Packet -) 4 gm PO DAILY [facility] Last Admin: 07/30/18 18:05 Dose: 4 gm Enoxaparin Sodium (Lovenox -) 40 mg SQ DAILY [facility] Last Admin: 07/30/18 10:30 Dose: 40 mg Potassium Chloride/Dextrose/Sod Cl (D5-1/2ns+20 Meq Kcl -) 20 meq in 1,000 mls @ 42 mls/hr IV ASDIR [facility] Last Admin: 07/30/18 08:30 Dose: Not Given Metronidazole (Flagyl 500mg Premixed Ivpb -) 500 mg in 100 mls @ 100 mls/hr IVPB Q8H-IV [facility] Last Admin: 07/30/18 17:32 Dose: 100 mls/hr Insulin Aspart (Novolog Vial Sliding Scale -) 1 vial SQ ACHS [facility]; Protocol Last Admin: 07/30/18 22:00 Dose: Not Given Levothyroxine Sodium (Synthroid -) 75 mcg PO DAILY@0700 [facility] Last Admin: 07/30/18 06:19 Dose: 75 mcg Metoprolol Tartrate (Lopressor -) 50 mg PO BID [facility] Last Admin: 07/30/18 22:09 Dose: 50 mg Nitrofurantoin Macrocrystals (Macrodantin -) 50 mg PO Q6HPO [facility] Last Admin: 07/30/18 17:32 Dose: 50 mg - Objective Vital Signs: Vital Signs Temperature 97.7 F 07/30/18 19:07 Pulse Rate 54 L 07/30/18 19:07 Respiratory Rate 18 07/30/18 19:07 Blood Pressure 156/76 07/30/18 19:07 O2 Sat by Pulse Oximetry (%) 100 07/30/18 09:00 Constitutional: Yes: Calm Eyes: Yes: EOM Intact HENT: Yes: Normocephalic Neck: Yes: Trachea Midline, Thyromegaly Cardiovascular: Yes: Regular Rate and Rhythm Respiratory: Yes: CTA Bilaterally Gastrointestinal: Yes: Normal Bowel Sounds ...Rectal Exam: Yes: Deferred Genitourinary: Yes: WNL Musculoskeletal: Yes: WNL, Muscle Weakness Extremities: Yes: WNL Edema: No Integumentary: Yes: Onychomycosis Neurological: Yes: Alert, Confusion, Unsteady Gait, Weakness Labs: CBC, BMP 07/30/18 07:00 07/30/18 06:30 Problem List - Problems (1) Type 2 diabetes mellitus with diabetic nephropathy Code(s): E11.21 - TYPE 2 DIABETES MELLITUS WITH DIABETIC NEPHROPATHY Qualifiers: Diabetes mellitus grind operator insulin use: with grind operator use Qualified Code( s): E11.21 - Type 2 diabetes mellitus with diabetic nephropathy; Z79.4 - long term (current) use of insulin (2) Complicated UTI (urinary tract infection) Code(s): N39.0 - URINARY TRACT INFECTION, SITE NOT SPECIFIED (3) Diarrhea Code(s): R19.7 - DIARRHEA, UNSPECIFIED (4) Lethargy Code(s): R53.83 - OTHER FATIGUE (5) Abdominal pain Code(s): R10.9 - UNSPECIFIED ABDOMINAL PAIN Qualifiers: Abdominal location: generalized Qualified Code(s): R10.84 - Generalized abdominal pain (6) Acute metabolic encephalopathy Code(s): G93.41 - METABOLIC ENCEPHALOPATHY Assessment/Plan Current Active Problems Complicated UTI (urinary tract infection) (Acute) Diarrhea (Acute) Lethargy (Acute) Loose stools (Acute) Type 2 diabetes mellitus with diabetic nephropathy (Acute) Abnormal Lab Results 07/30/18 07/30/18 06:30 07:00 RDW 19.0 H Plt Count 133 L Sodium 147 H Chloride 114 H Anion Gap 5 L BUN 6 L Random Glucose 162 H Calcium 7.4 L Total Protein 4.8 L Albumin 1.6 L Laboratory Results - last 24 hr 07/30/18 07/30/18 07/30/18 05:34 06:30 07:00 WBC 6.0 RBC 3.65 Hgb 11.7 Hct 34.9 MCV 95.6 MCH 32.0 MCHC 33.5 RDW 19.0 H Plt Count 133 L MPV 9.3 Sodium 147 H Potassium 4.9 Chloride 114 H Carbon Dioxide 28 Anion Gap 5 L BUN 6 L Creatinine 0.7 Creat Clearance w eGFR 79.15 POC Glucometer 148 Random Glucose 162 H Calcium 7.4 L Total Bilirubin 0.6 AST 35 ALT 15 Alkaline Phosphatase 58 Total Protein 4.8 L Albumin 1.6 L 07/30/18 07/30/18 07/30/18 12:01 17:21 21:59 WBC RBC Hgb Hct MCV MCH MCHC RDW Plt Count MPV Sodium Potassium Chloride Carbon Dioxide Anion Gap BUN Creatinine Creat Clearance w eGFR POC Glucometer 142 153 185 Random Glucose Calcium Total Bilirubin AST ALT Alkaline Phosphatase Total Protein Albumin plan: bgm coverage as ordered novolog scale when tolerating diet restart levemir 10units am continue synthroid 75mcg am gi consult appreciated
[2018-07-31] MEDS: NITROFURANTOIN MACROCRYSTAL 50 MG CAPSULE (FP) PO SCH ×4 (00:40→18:22)
[2018-07-31] MEDS: INSULIN SLIDING SCALE (NOVOLOG) 1 VIAL SQ SCH ×4 (06:05→23:36)
[2018-07-31] MEDS: LEVOTHYROXINE NA 75 MCG TABLET (FP) PO SCH (06:08)
--- NOTE | 2018-07-31 07:37 | PN.GI ---
GI Progress Note Subjective: Patient more awake and less lethargic. One episode of vomiting yesterday evening prior to having MRI of brain done. No further episode of vomiting reported but patient is still complaining of nausea and abdominal pain. Denies diarrhea, rectal bleeding, blood in stool, melena. - Objective Vital Signs: Vital Signs Temperature 98.1 F 07/31/18 01:00 Pulse Rate 98 H 07/31/18 01:00 Respiratory Rate 17 07/31/18 01:00 Blood Pressure 160/68 07/31/18 01:00 O2 Sat by Pulse Oximetry (%) 100 07/30/18 21:00 Constitutional: No Distress, Calm, Obese Eyes: Yes: Conjunctiva Clear HENT: Yes: Atraumatic Cardiovascular: Yes: Regular Rate and Rhythm Respiratory: Yes: Regular, Diminished Gastrointestinal Inspection: Yes: WNL. No: Ascites, Distention, Hernia, Scars, Other ...Auscultate: Yes: Normoactive Bowel Sounds. No: Hyperactive Bowel Sounds, Hypoactive Bowel Sounds, No Bowel Sounds, Other ...Palpate: Yes: Soft, Tenderness (diffuse). No: Firm/Rigid, Guarding, Hepatomegaly, Mass, Pulsatile Mass, Splenomegaly, Tenderness, Epigastium, Tenderness, Rebound, Other ...Percussion: Yes: Tympanitic. No: Dullness, Fluid Wave, Other Labs: CBC, BMP 07/30/18 07:00 07/30/18 06:30 Problem List - Problems (1) Diarrhea Assessment/Plan: R> stool for C.diff with positive antigen >Flagyl 500mg IVPB q8h swithc to po once medically improved >stool culture and WBC neg >questran 4 grams daily low fiber and lactose free diet Code(s): R19.7 - DIARRHEA, UNSPECIFIED
[2018-07-31 08:10] LABS: BASO % 0.6 % (0-2.0); EOS % 2.6 % (0-4.5); HEMATOCRIT 39.4 % (32.4-45.2); HEMOGLOBIN 12.8 GM/dL (10.7-15.3); LYMPH % 13.4 % (8-40); MCH 30.8 pg (25.7-33.7); MCHC 32.5 g/dl (32.0-36.0); MEAN CELL VOLUME 94.6 fl (80-96); MEAN PLT VOLUME 9.1 fl (7.5-11.1); MONO % 6.7 % (3.8-10.2); NEUT % 76.7 % (42.8-82.8); PLATELET COUNT 170 K/MM3 (134-434); RBC 4.16 M/mm3 (3.60-5.2); RDW 18.5 % (11.6-15.6)
[2018-07-31 09:00] LABS: ALBUMIN 1.7 g/dl (3.4-5.0); ALK PHOS 72 U/L (45-117); ANION GAP 4 MMOL/L (8-16); BILIRUBIN,TOTAL 0.8 mg/dL (0.2-1); BLOOD UREA NITROGEN 5 mg/dL (7-18); CALCIUM 7.3 mg/dL (8.5-10.1); CHLORIDE 112 mmol/L (98-107); CO2 30 mmol/L (21-32); CREATININE 0.6 mg/dL (0.55-1.3); GLUCOSE,RANDOM 226 mg/dL (74-106); MAGNESIUM 1.6 mg/dL (1.8-2.4); POTASSIUM 3.8 mmol/L (3.5-5.1); SGOT/AST 21 U/L (15-37); SGPT/ALT 12 U/L (13-61); SODIUM 146 mmol/L (136-145); TOT PROT 4.9 g/dl (6.4-8.2)
[2018-07-31] MEDS: ENOXAPARIN NA (PORCINE) 40 MG/0.4 ML DISP.SYRIN SQ SCH (12:00)
[2018-07-31] MEDS: D5-1/2NS+20 MEQ KCL - 20 MEQ/1,000 ML INFUS.BAG IV SCH (12:01)
[2018-07-31] MEDS: METOPROLOL TARTRATE 50 MG TABLET (FP) PO SCH (12:01)
[2018-07-31] MEDS: CHOLESTYRAMINE/SUCROSE 4 GM PACKET PO SCH (12:03)
[2018-07-31] MEDS ORDERED: MAGNESIUM SULF 50% (8.12 MEQ/2 ML-1 GM VIAL) IVPB ONE (15:28)
--- NOTE | 2018-07-31 15:28 | PN ---
Progress Note, Physician Chief Complaint: AWAKE ALERT X 2 +VOMITING C/O DIZZINESS STAT BGM 214 - Current Medication List Current Medications: Active Medications Cholestyramine Resin (Questran Packet -) 4 gm PO DAILY [facility] Last Admin: 07/31/18 12:03 Dose: 4 gm Enoxaparin Sodium (Lovenox -) 40 mg SQ DAILY [facility] Last Admin: 07/31/18 12:00 Dose: 40 mg Potassium Chloride/Dextrose/Sod Cl (D5-1/2ns+20 Meq Kcl -) 20 meq in 1,000 mls @ 42 mls/hr IV ASDIR [facility] Last Admin: 07/31/18 12:01 Dose: Not Given Metronidazole (Flagyl 500mg Premixed Ivpb -) 500 mg in 100 mls @ 100 mls/hr IVPB Q8H-IV [facility] Last Admin: 07/31/18 12:01 Dose: 100 mls/hr Insulin Aspart (Novolog Vial Sliding Scale -) 1 vial SQ [facility]; Protocol Last Admin: 07/31/18 12:03 Dose: Not Given Levothyroxine Sodium (Synthroid -) 75 mcg PO DAILY@0700 [facility] Last Admin: 07/31/18 06:08 Dose: 75 mcg Metoprolol Tartrate (Lopressor -) 50 mg PO BID [facility] Last Admin: 07/31/18 12:01 Dose: 50 mg Nitrofurantoin Macrocrystals (Macrodantin -) 50 mg PO Q6HPO [facility] Last Admin: 07/31/18 12:01 Dose: 50 mg - Objective Vital Signs: Vital Signs Temperature 98.2 F 07/31/18 14:15 Pulse Rate 74 07/31/18 14:15 Respiratory Rate 22 H 07/31/18 14:15 Blood Pressure 154/89 07/31/18 14:15 O2 Sat by Pulse Oximetry (%) 100 07/30/18 21:00 Constitutional: Yes: Mild Distress Cardiovascular: Yes: Regular Rate and Rhythm Respiratory: Yes: WNL Gastrointestinal: Yes: Soft, Abdomen, Obese Genitourinary: Yes: Incontinence Musculoskeletal: Yes: Muscle Weakness Extremities: Yes: Other (B/L HEELS) Edema: Yes Integumentary: Yes: Rash Wound/Incision: Yes: Dressing Dry and Intact Neurological: Yes: Pre-Existing Deficit Psychiatric: Yes: Other Labs: CBC, BMP 07/31/18 07:40 07/31/18 07:40 Problem List - Problems (1) Diarrhea Code(s): R19.7 - DIARRHEA, UNSPECIFIED (2) Lethargy Code(s): R53.83 - OTHER FATIGUE (3) Loose stools Code(s): R19.5 - OTHER FECAL ABNORMALITIES (4) Type 2 diabetes mellitus with diabetic nephropathy Code(s): E11.21 - TYPE 2 DIABETES MELLITUS WITH DIABETIC NEPHROPATHY Qualifiers: Diabetes mellitus ad terminal makeup operator insulin use: with senior living use Qualified Code( s): E11.21 - Type 2 diabetes mellitus with diabetic nephropathy; Z79.4 - nursing home (current) use of insulin (5) Abdominal pain Code(s): R10.9 - UNSPECIFIED ABDOMINAL PAIN Qualifiers: Abdominal location: generalized Qualified Code(s): R10.84 - Generalized abdominal pain (6) Acute metabolic encephalopathy Code(s): G93.41 - METABOLIC ENCEPHALOPATHY (7) Epigastric abdominal pain Code(s): R10.13 - EPIGASTRIC PAIN (8) Gastroparesis due to DM Code(s): E11.43 - TYPE 2 DIABETES W DIABETIC AUTONOMIC (POLY)NEUROPATHY; K31.84 - GASTROPARESIS Assessment/Plan REGLAN IV STANDING ORDER Q8HRS ZOFRAN PRN PPI PROTONIX IV BID. WOUND CARE TO AFFECTED AREAS AND BACITRACIN DAILY. FREQUENT TURNING WITH OFFLOAD WITH PILLOWS CDIFF ON IV ABX. GI FOLLOW UP. PATIENT WAS UNABLE TO HAVE MRI OF BRAIN BECAUSE- SHE WAS UNABLE TO LAY FLAT IN MRI MACHINE.
[2018-07-31] MEDS: ONDANSETRON 4 MG/2 ML VIAL IVPUSH PRN (16:27)
[2018-07-31] MEDS: METOCLOPRAMIDE HCL INJECTION 10 MG/2 ML VIAL IVPUSH SCH (18:22)
[2018-07-31] MEDS: PANTOPRAZOLE SODIUM 40 MG VIAL IVPUSH SCH (23:39)
[2018-08-01] MEDS ORDERED: PT OWN MED DRAWER 7, Y5N ONE ×3 (01:31→12:55)
[2018-08-01] MEDS: METOCLOPRAMIDE HCL INJECTION 10 MG/2 ML VIAL IVPUSH SCH ×3 (01:35→18:12)
[2018-08-01] MEDS: NITROFURANTOIN MACROCRYSTAL 50 MG CAPSULE (FP) PO SCH ×5 (02:32→23:22)
[2018-08-01] MEDS: METOPROLOL TARTRATE 50 MG TABLET (FP) PO SCH ×3 (02:32→22:54)
[2018-08-01] MEDS: LEVOTHYROXINE NA 75 MCG TABLET (FP) PO SCH (06:07)
[2018-08-01] MEDS: INSULIN SLIDING SCALE (NOVOLOG) 1 VIAL SQ SCH ×4 (06:16→22:55)
[2018-08-01] MEDS: D5-1/2NS+20 MEQ KCL - 20 MEQ/1,000 ML INFUS.BAG IV SCH (09:15)
--- NOTE | 2018-08-01 10:12 | PN.GI ---
GI Progress Note Subjective: Patient had an episode of dark colored vomitus yesterday. Abdominal xray shows distended small bowel loop air and stool in colon. CT scan from 07/26 shows mild concentric rectal wall thickening noted in comparison to 05/03/18 showing possible proctitis, colonic diverticulosis noted without evidence acute diverticulitis. No further reports of vomiting or diarrhea reported, patient complains of nausea and abdominal pain. No reports of rectal bleeding or melena. - Objective Vital Signs: Vital Signs Temperature 97.8 F 08/01/18 06:00 Pulse Rate 83 08/01/18 06:00 Respiratory Rate 20 08/01/18 06:00 Blood Pressure 147/89 08/01/18 06:00 O2 Sat by Pulse Oximetry (%) 94 L 07/31/18 21:00 Constitutional: No Distress, Calm Eyes: Yes: Conjunctiva Clear HENT: Yes: Atraumatic Cardiovascular: Yes: Regular Rate and Rhythm Respiratory: Yes: Regular, Diminished Gastrointestinal Inspection: Yes: Distention (mild). No: WNL, Ascites, Hernia, Scars, Other ...Auscultate: Yes: Normoactive Bowel Sounds. No: Hyperactive Bowel Sounds, Hypoactive Bowel Sounds, No Bowel Sounds, Other ...Palpate: Yes: Soft, Tenderness (diffuse). No: Firm/Rigid, Guarding, Hepatomegaly, Mass, Pulsatile Mass, Splenomegaly, Tenderness, Epigastium, Tenderness, Rebound, Other ...Percussion: Yes: Dullness. No: Fluid Wave, Tympanitic, Other Neurological: Yes: Alert, Pre-Existing Deficit Labs: CBC, BMP 07/31/18 07:40 07/31/18 07:40 Active Medications Generic Name Dose Route Start Last Admin Trade Name Freq PRN Reason Stop Dose Admin Amino Acids 30 ml 08/01/18 17:30 Prosource No Carb Liquid Pkt PO BID@0800,1730 [facility] Cholestyramine Resin 4 gm 07/30/18 17:15 07/31/18 12:03 Questran Packet - PO 4 gm DAILY [facility] Administration Enoxaparin Sodium 40 mg 07/27/18 11:45 07/31/18 12:00 Lovenox - SQ 40 mg DAILY [facility] Administration Potassium Chloride/Dextrose/Sod Cl 20 meq in 1,000 mls @ 42 mls/hr 07/30/18 08 :18 08/01/18 09:15 D5-1/2ns+20 Meq Kcl - IV 42 mls/hr ASDIR [facility] Administration Metronidazole 500 mg in 100 mls @ 100 mls/hr 07/30/18 10:00 08/01/18 01:36 Flagyl 500mg Premixed Ivpb - IVPB 100 mls/hr Q8H-IV [facility] Administration Insulin Aspart 1 vial 07/28/18 11:00 08/01/18 06:16 Novolog Vial Sliding Scale - SQ 2 units ACHS [facility] Administration Protocol Levothyroxine Sodium 75 mcg 07/29/18 07:00 08/01/18 06:07 Synthroid - PO Not Given DAILY@0700 [facility] Metoclopramide HCl 10 mg 07/31/18 18:00 08/01/18 01:35 Reglan Injection - IVPUSH 10 mg Q8H-IV [facility] Administration Metoprolol Tartrate 50 mg 07/28/18 16:00 08/01/18 02:32 Lopressor - PO Not Given BID [facility] Nitrofurantoin Macrocrystals 50 mg 07/29/18 18:00 08/01/18 05:47 Macrodantin - PO Not Given Q6HPO [facility] Ondansetron HCl 4 mg 07/31/18 15:23 07/31/18 16:27 Zofran Injection IVPUSH 4 mg Q6H PRN Administration NAUSEA Pantoprazole Sodium 40 mg 07/31/18 22:00 07/31/18 23:39 Protonix Iv IVPUSH 40 mg BID [facility] Administration Problem List - Problems (1) Diarrhea Assessment/Plan: R> stool for C.diff with positive antigen >Flagyl 500mg IVPB q8h swithc to po once medically improved >stool culture and WBC neg >questran 4 grams daily low fiber and lactose free diet Code(s): R19.7 - DIARRHEA, UNSPECIFIED (2) Epigastric abdominal pain Assessment/Plan: R>Protonix BID >zofran IVPB Code(s): R10.13 - EPIGASTRIC PAIN (3) Gastroparesis due to DM Assessment/Plan: R> Reglan 10mg IVPB q8h Code(s): E11.43 - TYPE 2 DIABETES W DIABETIC AUTONOMIC (POLY)NEUROPATHY; K31.84 - GASTROPARESIS
[2018-08-01] MEDS: ENOXAPARIN NA (PORCINE) 40 MG/0.4 ML DISP.SYRIN SQ SCH (10:22)
[2018-08-01] MEDS: PANTOPRAZOLE SODIUM 40 MG VIAL IVPUSH SCH ×2 (10:23→22:54)
[2018-08-01] MEDS: CHOLESTYRAMINE/SUCROSE 4 GM PACKET PO SCH (10:24)
[2018-08-01 11:26] LABS: HEMATOCRIT 30.4 % (32.4-45.2); HEMOGLOBIN 9.9 GM/dL (10.7-15.3); MCH 30.9 pg (25.7-33.7); MCHC 32.6 g/dl (32.0-36.0); MEAN CELL VOLUME 94.7 fl (80-96); MEAN PLT VOLUME 8.6 fl (7.5-11.1); PLATELET COUNT 128 K/MM3 (134-434); RBC 3.21 M/mm3 (3.60-5.2); RDW 18.3 % (11.6-15.6); WHITE BLOOD COUNT 7.2 K/mm3 (4.0-10.0)
[2018-08-01] MEDS: MULTIVIT-MINERALS ORAL LIQUID PO SCH (12:57)
[2018-08-01] MEDS: ONDANSETRON 4 MG/2 ML VIAL IVPUSH PRN (13:16)
[2018-08-01] MEDS ORDERED: MAGNESIUM SULF 50% (8.12 MEQ/2 ML-1 GM VIAL) IVPB ONE (14:15)
--- NOTE | 2018-08-01 17:13 | PN ---
Progress Note, Physician Chief Complaint: AWAKE ALERT X 2 C/O GENERALIZED PAIN "EVERYTHING HURST" SHE REPORTS NO PAIN SCALES WHEN ASKED AND SHE DENIES FEVER/CHILLS NAUSEA AND VOMITING STOPPED NPO SINCE YESTERDAY ON IVF/IV-REGLAN - Current Medication List Current Medications: Active Medications Amino Acids (Prosource No Carb Liquid Pkt) 30 ml PO BID@0800,1730 [facility] Enoxaparin Sodium (Lovenox -) 40 mg SQ DAILY [facility] Last Admin: 08/01/18 10:22 Dose: 40 mg Potassium Chloride/Dextrose/Sod Cl (D5-1/2ns+20 Meq Kcl -) 20 meq in 1,000 mls @ 42 mls/hr IV ASDIR [facility] Last Admin: 08/01/18 09:15 Dose: 42 mls/hr Metronidazole (Flagyl 500mg Premixed Ivpb -) 500 mg in 100 mls @ 100 mls/hr IVPB Q8H-IV [facility] Last Admin: 08/01/18 10:23 Dose: 100 mls/hr Insulin Aspart (Novolog Vial Sliding Scale -) 1 vial SQ [facility]; Protocol Last Admin: 08/01/18 11:26 Dose: 2 units Levothyroxine Sodium (Synthroid -) 75 mcg PO DAILY@0700 [facility] Last Admin: 08/01/18 06:07 Dose: Not Given Metoclopramide HCl (Reglan Injection -) 10 mg IVPUSH Q8H-IV [facility] Last Admin: 08/01/18 10:25 Dose: 10 mg Metoprolol Tartrate (Lopressor -) 50 mg PO BID [facility] Last Admin: 08/01/18 10:24 Dose: 50 mg Nitrofurantoin Macrocrystals (Macrodantin -) 50 mg PO Q6HPO [facility] Last Admin: 08/01/18 12:57 Dose: 50 mg Ondansetron HCl (Zofran Injection) 4 mg IVPUSH Q6H PRN PRN Reason: NAUSEA Last Admin: 08/01/18 13:16 Dose: 4 mg Pantoprazole Sodium (Protonix Iv) 40 mg IVPUSH BID [facility] Last Admin: 08/01/18 10:23 Dose: 40 mg - Objective Vital Signs: Vital Signs Temperature 98.3 F 08/01/18 14:15 Pulse Rate 72 08/01/18 14:15 Respiratory Rate 22 H 08/01/18 14:15 Blood Pressure 177/84 H 08/01/18 14:15 O2 Sat by Pulse Oximetry (%) 96 08/01/18 09:00 Constitutional: Yes: Mild Distress Eyes: Yes: WNL HENT: Yes: WNL Neck: Yes: WNL Cardiovascular: Yes: Regular Rate and Rhythm Respiratory: Yes: CTA Bilaterally, On Nasal O2 Gastrointestinal: Yes: Soft, Abdomen, Obese, Tenderness Genitourinary: Yes: Incontinence Musculoskeletal: Yes: Back Pain, Muscle Pain Extremities: Yes: Other Edema: Yes Integumentary: Yes: WNL Wound/Incision: Yes: Clean/Dry Neurological: Yes: Confusion, Pre-Existing Deficit Psychiatric: Yes: Other Labs: CBC, BMP 08/01/18 10:50 08/01/18 10:50 Problem List - Problems (1) Diarrhea Code(s): R19.7 - DIARRHEA, UNSPECIFIED (2) Lethargy Code(s): R53.83 - OTHER FATIGUE (3) Loose stools Code(s): R19.5 - OTHER FECAL ABNORMALITIES (4) Type 2 diabetes mellitus with diabetic nephropathy Code(s): E11.21 - TYPE 2 DIABETES MELLITUS WITH DIABETIC NEPHROPATHY Qualifiers: Diabetes mellitus vermin exterminator insulin use: with retirement use Qualified Code( s): E11.21 - Type 2 diabetes mellitus with diabetic nephropathy; Z79.4 - prison (current) use of insulin (5) Abdominal pain Code(s): R10.9 - UNSPECIFIED ABDOMINAL PAIN Qualifiers: Abdominal location: generalized Qualified Code(s): R10.84 - Generalized abdominal pain (6) Acute metabolic encephalopathy Code(s): G93.41 - METABOLIC ENCEPHALOPATHY (7) Epigastric abdominal pain Code(s): R10.13 - EPIGASTRIC PAIN (8) Gastroparesis due to DM Code(s): E11.43 - TYPE 2 DIABETES W DIABETIC AUTONOMIC (POLY)NEUROPATHY; K31.84 - GASTROPARESIS Assessment/Plan GASTROPARESIS IMPROVED WILL START ERYTHROMYCIN TOMORROW CAN ALSO TRY XIFAXIN WILL D/W GI NO NARCOTIC PAIN RELIEF UNLESS NECESSARY PT EVAL DVT PROPHYLAXIS STOOL FOR OCCULT CHECK ADVANCED DIRECTIVES FROM FAMILY NEEDED PATIENT HAS POOR QUALITY OF LIFE IN THE PAST 6MONTHS. WE HAD TRANSFERRED TO [facility] IN THE PAST FEW MONTHS IN ATTEMPT TO SURGICALLY ASSIST WITH GASTROPARESIS/HIATAL HERNIA HOWEVER THE PATIENT WAS DEEMED TO HIGH RISK BY THE SURGEON THERE AND TOLD TO TREAT CONSERVABLE WITH MEDS AND LIFE STYLE. WILL DISCUSS AGAIN WITH FAMILY.
[2018-08-01] MEDS: AMINO ACIDS/PROTEIN HYDROLYS 30 ML LIQUID.PKT PO SCH (18:12)
[2018-08-01 22:29] LABS: ALBUMIN 1.7 g/dl (3.4-5.0); ALK PHOS 73 U/L (45-117); ANION GAP 2 MMOL/L (8-16); BILIRUBIN,TOTAL 0.7 mg/dL (0.2-1); BLOOD UREA NITROGEN 9 mg/dL (7-18); CHLORIDE 116 mmol/L (98-107); CO2 28 mmol/L (21-32); CREATININE 0.7 mg/dL (0.55-1.3); GLUCOSE,RANDOM 252 mg/dL (74-106); POTASSIUM 4.3 mmol/L (3.5-5.1); SGOT/AST 18 U/L (15-37); SGPT/ALT 11 U/L (13-61); SODIUM 146 mmol/L (136-145); TOT PROT 5.2 g/dl (6.4-8.2)
[2018-08-02] MEDS: METOCLOPRAMIDE HCL INJECTION 10 MG/2 ML VIAL IVPUSH SCH ×3 (01:14→17:31)
[2018-08-02] MEDS: LEVOTHYROXINE NA 75 MCG TABLET (FP) PO SCH (06:50)
[2018-08-02] MEDS: NITROFURANTOIN MACROCRYSTAL 50 MG CAPSULE (FP) PO SCH ×3 (06:50→17:26)
[2018-08-02] MEDS: INSULIN SLIDING SCALE (NOVOLOG) 1 VIAL SQ SCH ×4 (06:53→21:19)
[2018-08-02 07:36] LABS: HEMOGLOBIN 13.1 GM/dL (10.7-15.3); MCHC 32.8 g/dl (32.0-36.0); MEAN CELL VOLUME 94.5 fl (80-96); MEAN PLT VOLUME 8.7 fl (7.5-11.1); PLATELET COUNT 182 K/MM3 (134-434); RBC 4.24 M/mm3 (3.60-5.2); RDW 18.8 % (11.6-15.6)
[2018-08-02 08:12] LABS: ANION GAP 7 MMOL/L (8-16); BLOOD UREA NITROGEN 8 mg/dL (7-18); CALCIUM 7.8 mg/dL (8.5-10.1); CHLORIDE 115 mmol/L (98-107); CO2 26 mmol/L (21-32); CREATININE 0.6 mg/dL (0.55-1.3); GLUCOSE,RANDOM 207 mg/dL (74-106); POTASSIUM 3.4 mmol/L (3.5-5.1); SODIUM 148 mmol/L (136-145)
[2018-08-02] MEDS ORDERED: INSULIN (NOVOLOG) ASPART 100 UNITS/ML 10ML VIAL ONE (10:47)
[2018-08-02] MEDS: METOPROLOL TARTRATE 50 MG TABLET (FP) PO SCH ×2 (11:22→21:21)
[2018-08-02] MEDS: AMINO ACIDS/PROTEIN HYDROLYS 30 ML LIQUID.PKT PO SCH ×2 (11:22→17:26)
[2018-08-02] MEDS: PANTOPRAZOLE SODIUM 40 MG VIAL IVPUSH SCH (11:23)
[2018-08-02] MEDS: ENOXAPARIN NA (PORCINE) 40 MG/0.4 ML DISP.SYRIN SQ SCH (11:23)
[2018-08-02] MEDS: MULTIVIT-MINERALS ORAL LIQUID PO SCH (11:23)
--- NOTE | 2018-08-02 12:19 | PN ---
Progress Note, Physician Chief Complaint: UTI TOxic Metabolic Ecephalopathy History of Present Illness: Previous notes ad events reviewed awake and alert NAD patient is more awake today, no complaints of pain verbalized K 3.4 no reports of diarrhea, nausea, vomiting - Current Medication List Current Medications: Active Medications Amino Acids (Prosource No Carb Liquid Pkt) 30 ml PO BID@0800,1730 [facility] Last Admin: 08/02/18 11:22 Dose: 30 ml Enoxaparin Sodium (Lovenox -) 40 mg SQ DAILY [facility] Last Admin: 08/01/18 10:22 Dose: 40 mg Potassium Chloride/Dextrose/Sod Cl (D5-1/2ns+20 Meq Kcl -) 20 meq in 1,000 mls @ 42 mls/hr IV ASDIR [facility] Last Admin: 08/01/18 09:15 Dose: 42 mls/hr Metronidazole (Flagyl 500mg Premixed Ivpb -) 500 mg in 100 mls @ 100 mls/hr IVPB Q8H-IV [facility] Last Admin: 08/02/18 11:23 Dose: 100 mls/hr Insulin Aspart (Novolog Vial Sliding Scale -) 1 vial SQ [facility]; Protocol Last Admin: 08/02/18 11:23 Dose: 4 units Levothyroxine Sodium (Synthroid -) 75 mcg PO DAILY@0700 [facility] Last Admin: 08/02/18 06:50 Dose: 75 mcg Metoclopramide HCl (Reglan Injection -) 10 mg IVPUSH Q8H-IV [facility] Last Admin: 08/02/18 11:23 Dose: 10 mg Metoprolol Tartrate (Lopressor -) 50 mg PO BID [facility] Last Admin: 08/02/18 11:22 Dose: 50 mg Nitrofurantoin Macrocrystals (Macrodantin -) 50 mg PO Q6HPO [facility] Last Admin: 08/02/18 06:50 Dose: 50 mg Ondansetron HCl (Zofran Injection) 4 mg IVPUSH Q6H PRN PRN Reason: NAUSEA Last Admin: 08/01/18 13:16 Dose: 4 mg Pantoprazole Sodium (Protonix Iv) 40 mg IVPUSH BID [facility] Last Admin: 08/02/18 11:23 Dose: 40 mg - Objective Vital Signs: Vital Signs Temperature 98.2 F 08/02/18 10:55 Pulse Rate 76 08/02/18 10:55 Respiratory Rate 18 08/02/18 10:55 Blood Pressure 128/90 08/02/18 10:55 O2 Sat by Pulse Oximetry (%) 96 08/01/18 21:00 Constitutional: Yes: No Distress, Calm, Obese Eyes: Yes: Conjunctiva Clear HENT: Yes: Atraumatic Cardiovascular: Yes: Regular Rate and Rhythm Respiratory: Yes: Regular, Diminished, On Nasal O2 Gastrointestinal: Yes: Normal Bowel Sounds, Soft, Abdomen, Obese Genitourinary: Yes: Incontinence Musculoskeletal: Yes: Muscle Weakness Extremities: Yes: WNL Edema: Yes Neurological: Yes: Pre-Existing Deficit Psychiatric: Yes: Alert Labs: CBC, BMP 08/02/18 07:00 08/02/18 07:00 Microbiology 07/28/18 23:59 Stool Salmonella/Shigella Culture - Final 07/28/18 23:59 Stool Campylobacter Culture - Final NO GROWTH OF CAMPYLOBACTER SPECIES OBTAINED 07/28/18 23:59 Stool Yersinia Culture - Final NO GROWTH OF YERSINIA SPECIES OBTAINED 07/28/18 23:59 Stool Vibrio Culture - Final NO GROWTH OF VIBRIO SPECIES OBTAINED 07/28/18 23:59 Stool Escherichia coli 0157 Culture - Final NO GROWTH OF E COLI 0157 OBTAINED 07/28/18 23:59 Stool Gram Stain - Final 07/28/18 23:59 Stool Clostridioides difficile Antigen - Final 07/28/18 23:59 Stool Clostridioides difficile Toxin Assay - Final 07/26/18 14:56 Urine - Urine Clean Catch Urine Culture - Final Escherichia Coli Esbl Cloth Doffer Lactose Fermenting Neg Bacilli#2 Problem List - Problems (1) Complicated UTI (urinary tract infection) Assessment/Plan: -ID on board -no leukocytosis, afebrile -IMacrobid -UC positive for ESBL and E.Coli Code(s): N39.0 - URINARY TRACT INFECTION, SITE NOT SPECIFIED (2) Diarrhea Assessment/Plan: -Flagyl IV -c-diff positive antigen, negative toxin Code(s): R19.7 - DIARRHEA, UNSPECIFIED (3) Afib Assessment/Plan: -continue Enoxaprin SQ Code(s): I48.91 - UNSPECIFIED ATRIAL FIBRILLATION Qualifiers: Atrial fibrillation type: paroxysmal Qualified Code(s): I48.0 - Paroxysmal atrial fibrillation (4) Altered mental status Assessment/Plan: -2/2 toxic metabolic encephalopathy -UC positive -Macrobid Code(s): R41.82 - ALTERED MENTAL STATUS, UNSPECIFIED (5) Diabetes mellitus with peripheral vascular disease Assessment/Plan: -BG ACHS -ISS -endo on board -will start Levemir when resume normal diet Code(s): E11.51 - TYPE 2 DIABETES W DIABETIC PERIPHERAL ANGIOPATH W/O GANGRENE (6) Hypokalemia Assessment/Plan: -K 3.4 -KCl 20mEq PO x 1 dose -monitor electrolyte and replete daily Code(s): E87.6 - HYPOKALEMIA (7) Hypomagnesemia Assessment/Plan: -Mg 1.2 on 07/28 -monitor electryltes and replete as needed Code(s): E83.42 - HYPOMAGNESEMIA (8) Hypothyroid Assessment/Plan: -Levothyroxine 75mcg Code(s): E03.9 - HYPOTHYROIDISM, UNSPECIFIED Assessment/Plan see problem list dvt ppx palliative consult
[2018-08-02] MEDS: D5-1/2NS+20 MEQ KCL - 20 MEQ/1,000 ML INFUS.BAG IV SCH (12:25)
[2018-08-02] MEDS ORDERED: PANTOPRAZOLE 40 MG TABLET (FP) PO SCH (23:15)
[2018-08-02] MEDS ORDERED: metroNIDAZOLE 250 MG TABLET PO SCH (23:15)
[2018-08-03] MEDS: PANTOPRAZOLE 40 MG TABLET (FP) PO SCH ×3 (00:27→21:41)
[2018-08-03] MEDS: metroNIDAZOLE 250 MG TABLET PO SCH ×5 (00:27→21:41)
[2018-08-03] MEDS: NITROFURANTOIN MACROCRYSTAL 50 MG CAPSULE (FP) PO SCH ×4 (00:32→18:39)
[2018-08-03] MEDS: METOCLOPRAMIDE HCL INJECTION 10 MG/2 ML VIAL IVPUSH SCH ×2 (03:05→10:29)
[2018-08-03] MEDS: LEVOTHYROXINE NA 75 MCG TABLET (FP) PO SCH (06:00)
[2018-08-03] MEDS: INSULIN SLIDING SCALE (NOVOLOG) 1 VIAL SQ SCH ×4 (06:00→21:46)
[2018-08-03 07:41] LABS: HEMATOCRIT 40.3 % (32.4-45.2); HEMOGLOBIN 13.2 GM/dL (10.7-15.3); MCH 31.2 pg (25.7-33.7); MCHC 32.7 g/dl (32.0-36.0); MEAN CELL VOLUME 95.2 fl (80-96); MEAN PLT VOLUME 8.7 fl (7.5-11.1); PLATELET COUNT 192 K/MM3 (134-434); RBC 4.24 M/mm3 (3.60-5.2); RDW 18.7 % (11.6-15.6); WHITE BLOOD COUNT 7.6 K/mm3 (4.0-10.0)
[2018-08-03 08:15] LABS: ALBUMIN 1.7 g/dl (3.4-5.0); ALK PHOS 69 U/L (45-117); ANION GAP 6 MMOL/L (8-16); BILIRUBIN,TOTAL 0.8 mg/dL (0.2-1); BLOOD UREA NITROGEN 9 mg/dL (7-18); CALCIUM 7.8 mg/dL (8.5-10.1); CHLORIDE 114 mmol/L (98-107); CO2 27 mmol/L (21-32); CREATININE 0.6 mg/dL (0.55-1.3); GLUCOSE,RANDOM 211 mg/dL (74-106); POTASSIUM 3.5 mmol/L (3.5-5.1); SGOT/AST 15 U/L (15-37); SGPT/ALT 10 U/L (13-61); SODIUM 147 mmol/L (136-145); TOT PROT 5.2 g/dl (6.4-8.2)
--- NOTE | 2018-08-03 09:31 | PN.GI ---
GI Progress Note Subjective: Patient examined and complain of nausea and abdominal pain. As per RN no reports of vomiting, diarrhea, melena. Patient is lethargic but arouseable to verbal and tactile stimuli. - Objective Vital Signs: Vital Signs Temperature 97.3 F L 08/03/18 05:32 Pulse Rate 72 08/03/18 05:32 Respiratory Rate 18 08/03/18 05:32 Blood Pressure 130/80 08/03/18 05:32 O2 Sat by Pulse Oximetry (%) 100 08/02/18 21:00 Constitutional: No Distress, Calm, Obese Eyes: Yes: Conjunctiva Clear HENT: Yes: Atraumatic Cardiovascular: Yes: Regular Rate and Rhythm Respiratory: Yes: Regular, Diminished Gastrointestinal Inspection: Yes: WNL. No: Ascites, Distention, Hernia, Scars, Other ...Auscultate: Yes: Normoactive Bowel Sounds. No: Hyperactive Bowel Sounds, Hypoactive Bowel Sounds, No Bowel Sounds, Other ...Palpate: Yes: Soft (diffuse), Tenderness. No: Firm/Rigid, Guarding, Hepatomegaly, Mass, Pulsatile Mass, Splenomegaly, Tenderness, Epigastium, Tenderness, Rebound, Other ...Percussion: Yes: Tympanitic. No: Dullness, Fluid Wave, Other Neurological: Yes: Lethargy Psychiatric: Yes: Alert Labs: CBC, BMP 08/03/18 06:25 08/03/18 06:25 Active Medications Generic Name Dose Route Start Last Admin Trade Name Freq PRN Reason Stop Dose Admin Amino Acids 30 ml 08/01/18 17:30 08/02/18 17:26 Prosource No Carb Liquid Pkt PO 30 ml BID@0800,1730 [facility] Administration Enoxaparin Sodium 40 mg 07/27/18 11:45 08/02/18 11:23 Lovenox - SQ 40 mg DAILY [facility] Administration Potassium Chloride/Dextrose/Sod Cl 20 meq in 1,000 mls @ 42 mls/hr 07/30/18 08 :18 08/02/18 12:25 D5-1/2ns+20 Meq Kcl - IV 42 mls/hr ASDIR [facility] Administration Insulin Aspart 1 vial 07/28/18 11:00 08/03/18 06:00 Novolog Vial Sliding Scale - SQ Not Given ACHS [facility] Protocol Levothyroxine Sodium 75 mcg 07/29/18 07:00 08/03/18 06:00 Synthroid - PO 75 mcg DAILY@0700 [facility] Administration Metoclopramide HCl 10 mg 07/31/18 18:00 08/03/18 03:05 Reglan Injection - IVPUSH Not Given Q8H-IV [facility] Metoprolol Tartrate 50 mg 07/28/18 16:00 08/02/18 21:21 Lopressor - PO 50 mg BID [facility] Administration Metronidazole 500 mg 08/03/18 00:00 08/03/18 06:00 Flagyl - PO 500 mg TID [facility] Administration Nitrofurantoin Macrocrystals 50 mg 07/29/18 18:00 08/03/18 06:00 Macrodantin - PO 50 mg Q6HPO [facility] Administration Ondansetron HCl 4 mg 07/31/18 15:23 08/01/18 13:16 Zofran Injection IVPUSH 4 mg Q6H PRN Administration NAUSEA Pancrelipase 1 cap 08/03/18 12:[address] 36,000 Units Capsule PO TIDCM [facility] Pantoprazole Sodium 40 mg 08/03/18 00:00 08/03/18 00:27 Protonix - PO 40 mg BID [facility] Administration Rifaximin 550 mg 08/03/18 14:00 Xifaxan - PO TID [facility] Sucralfate 1 gm 08/03/18 10:00 Carafate Oral Suspension - PO BID [facility] Problem List - Problems (1) Diarrhea Assessment/Plan: R> stool for C.diff with positive antigen >Flagyl 500mg TID PO >stool culture and WBC neg low fiber and lactose free diet Code(s): R19.7 - DIARRHEA, UNSPECIFIED (2) Epigastric abdominal pain Assessment/Plan: R>Protonix BID >will start patient on Xifaxin 550 TID, Carafate 1gm suspension BID, and Creon 36,000 units before meals TID Code(s): R10.13 - EPIGASTRIC PAIN (3) Gastroparesis due to DM Assessment/Plan: R> Reglan 5mg TID Code(s): E11.43 - TYPE 2 DIABETES W DIABETIC AUTONOMIC (POLY)NEUROPATHY; K31.84 - GASTROPARESIS
[2018-08-03] MEDS ORDERED: PT OWN MED DRAWER 7, Y5N ONE ×5 (10:12→18:45)
[2018-08-03] MEDS: SUCRALFATE 1 GM/10 ML UNIT DOSE CUPS PO SCH ×2 (10:22→21:40)
[2018-08-03] MEDS: AMINO ACIDS/PROTEIN HYDROLYS 30 ML LIQUID.PKT PO SCH ×2 (10:22→16:40)
[2018-08-03] MEDS: ENOXAPARIN NA (PORCINE) 40 MG/0.4 ML DISP.SYRIN SQ SCH (10:22)
[2018-08-03] MEDS: MULTIVIT-MINERALS ORAL LIQUID PO SCH (10:24)
[2018-08-03] MEDS: METOPROLOL TARTRATE 50 MG TABLET (FP) PO SCH ×2 (10:25→21:41)
[2018-08-03] MEDS: D5-1/2NS+20 MEQ KCL - 20 MEQ/1,000 ML INFUS.BAG IV SCH ×2 (10:29→15:06)
--- NOTE | 2018-08-03 10:35 | EKG ---
Test Reason : Blood Pressure : / mmHG Vent. Rate : 075 BPM Atrial Rate : 075 BPM P-R Int : 214 ms QRS Dur : 096 ms QT Int : 426 ms P-R-T Axes : 047 -10 212 degrees QTc Int : 475 ms SINUS RHYTHM WITH 1ST DEGREE A-V BLOCK WITH PREMATURE SUPRAVENTRICULAR COMPLEXES AND WITH OCCASIONAL PREMATURE VENTRICULAR COMPLEXES PROLONGED QT Confirmed by LINO HOLDER MD ([id number]) on 08/03/2018 10:35:02 AM Referred By: SURINDER LUTHER DR Confirmed By:LINO HOLDER MD
[2018-08-03] MEDS ORDERED: ONDANSETRON *ODT* 4 MG TABLET SL PRN (10:58)
--- NOTE | 2018-08-03 11:04 | PN ---
Progress Note, Physician Chief Complaint: UTI TOxic Metabolic Ecephalopathy History of Present Illness: Previous notes ad events reviewed awake and alert NAD patient is more awake today and verballyresponsive, follows commands compain of generalized abdominal pain poor PO intake dipika out of place edema noted B/L upper extremity c/o chest pain, EKG and troponin stat Patient does not currently have IV access, multiple attempts made last night and unsuccessful, spoke with patients daughter Ros Dwyer and made her aware of patient not having any IV access and her poor PO intake, explained that patient needs access to have at least IV hydration infusing if continues with poor PO intake, daughter given option of having NGT placed with feedings going to offer nutrition, patients daughter refuses NGT at time and is requesting a last attempt at IV access, anesthesia called for possible attempt at IV line insertion - Current Medication List Current Medications: Active Medications Amino Acids (Prosource No Carb Liquid Pkt) 30 ml PO BID@0800,1730 [facility] Last Admin: 08/03/18 10:22 Dose: 30 ml Enoxaparin Sodium (Lovenox -) 40 mg SQ DAILY [facility] Last Admin: 08/03/18 10:22 Dose: 40 mg Potassium Chloride/Dextrose/Sod Cl (D5-1/2ns+20 Meq Kcl -) 20 meq in 1,000 mls @ 42 mls/hr IV ASDIR [facility] Last Admin: 08/03/18 10:29 Dose: Not Given Insulin Aspart (Novolog Vial Sliding Scale -) 1 vial SQ ACHS [facility]; Protocol Last Admin: 08/03/18 06:00 Dose: Not Given Levothyroxine Sodium (Synthroid -) 75 mcg PO DAILY@0700 [facility] Last Admin: 08/03/18 06:00 Dose: 75 mcg Metoclopramide HCl (Reglan -) 10 mg PO TIDAC [facility] Metoprolol Tartrate (Lopressor -) 50 mg PO BID [facility] Last Admin: 08/03/18 10:25 Dose: 50 mg Metronidazole (Flagyl -) 500 mg PO TID [facility] Last Admin: 08/03/18 06:00 Dose: 500 mg Nitrofurantoin Macrocrystals (Macrodantin -) 50 mg PO Q6HPO [facility] Last Admin: 08/03/18 06:00 Dose: 50 mg Ondansetron HCl (Zofran Injection) 4 mg IVPUSH Q6H PRN PRN Reason: NAUSEA Last Admin: 08/01/18 13:16 Dose: 4 mg Pancrelipase (Creon Dr 36,000 Units Capsule) 1 cap PO TIDCM [facility] Pantoprazole Sodium (Protonix -) 40 mg PO BID [facility] Last Admin: 08/03/18 10:23 Dose: 40 mg Rifaximin (Xifaxan -) 550 mg PO TID [facility] Sucralfate (Carafate Oral Suspension -) 1 gm PO BID [facility] Last Admin: 08/03/18 10:22 Dose: 1 gm - Objective Vital Signs: Vital Signs Temperature 97.3 F L 08/03/18 05:32 Pulse Rate 72 08/03/18 05:32 Respiratory Rate 18 08/03/18 05:32 Blood Pressure 130/80 08/03/18 05:32 O2 Sat by Pulse Oximetry (%) 100 08/02/18 21:00 Constitutional: Yes: No Distress, Calm Eyes: Yes: Conjunctiva Clear HENT: Yes: Atraumatic Cardiovascular: Yes: Regular Rate and Rhythm Respiratory: Yes: Regular, Diminished Gastrointestinal: Yes: Normal Bowel Sounds, Soft, Abdomen, Obese, Tenderness ( diffuse) Genitourinary: Yes: Incontinence Musculoskeletal: Yes: Muscle Weakness Extremities: Yes: WNL Edema: No (upper exptremities) Wound/Incision: Yes: Dressing Dry and Intact (left heel) Neurological: Yes: Lethargy, Pre-Existing Deficit Psychiatric: Yes: Alert Labs: CBC, BMP 08/03/18 06:25 08/03/18 06:25 Problem List - Problems (1) Complicated UTI (urinary tract infection) Assessment/Plan: -ID on board -no leukocytosis, afebrile -Macrobid -UC positive for ESBL and E.Coli Code(s): N39.0 - URINARY TRACT INFECTION, SITE NOT SPECIFIED (2) Diarrhea Assessment/Plan: -Flagyl IV -c-diff positive antigen, negative toxin -low fiber, lactose free diet Code(s): R19.7 - DIARRHEA, UNSPECIFIED (3) Afib Assessment/Plan: -continue Enoxaprin SQ Code(s): I48.91 - UNSPECIFIED ATRIAL FIBRILLATION Qualifiers: Atrial fibrillation type: paroxysmal Qualified Code(s): I48.0 - Paroxysmal atrial fibrillation (4) Altered mental status Assessment/Plan: -2/2 toxic metabolic encephalopathy -UC positive -Macrobid Code(s): R41.82 - ALTERED MENTAL STATUS, UNSPECIFIED (5) Diabetes mellitus with peripheral vascular disease Assessment/Plan: -BG ACHS -ISS -endo on board -will start Levemir when resume normal diet Code(s): E11.51 - TYPE 2 DIABETES W DIABETIC PERIPHERAL ANGIOPATH W/O GANGRENE (6) Hypokalemia Assessment/Plan: -K 3.5 -resolved -monitor electrolyte and replete daily Code(s): E87.6 - HYPOKALEMIA (7) Hypomagnesemia Assessment/Plan: -Mg 1.2 on 07/28 -monitor electryltes and replete as needed Code(s): E83.42 - HYPOMAGNESEMIA (8) Hypothyroid Assessment/Plan: -Levothyroxine 75mcg Code(s): E03.9 - HYPOTHYROIDISM, UNSPECIFIED (9) Abdominal pain Assessment/Plan: -start on Xifaxin TID, Carafate suspension, Creon TID AC -GI on board -FUA reviewed Code(s): R10.9 - UNSPECIFIED ABDOMINAL PAIN Qualifiers: Abdominal location: generalized Qualified Code(s): R10.84 - Generalized abdominal pain (10) Gastroparesis due to DM Assessment/Plan: -Reglan TID AC Code(s): E11.43 - 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
[2018-08-03] MEDS: METOCLOPRAMIDE HCL 10 MG TABLET (FP) PO SCH ×2 (11:55→16:39)
--- NOTE | 2018-08-03 12:03 | PN ---
Progress Note (short form) - Note Progress Note: NEUROLOGY PROGRESS: Events reviewed. Patient examined. + resistent E. coli in urine and C. Diff antigen currently on macrobid and flagyl, however poor IV access and transitioned to PO. Pt continues to complain of stomach pain. Currently on liquid diet. B12= 954 RPR non-reactive Alb 1.7 Na+=147 mg% Cl-=114 mg% ABEL: Restricted ROM of neck in all directions. Early contractures at knees, left elbow. Arms and legs edematous. Wearing diaper. NEURO: Eyes closed, sl dysarthric. Follows simple commands. + glabella CNII-CNXII: Resists eye opening. Reduced rapid tongue mvmt's. Gag ok. Motor: Strong grasps. +cogwheeling L > R. Sensation: Decreased withdrawal to pinch in all fours Impression: Mod B/L cerebral dysfunction (Multi-infarcts, OMS) worsened by Toxic -Metabolic Encephalopathy (infection). 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 Await carotid duplex Patient requires Assist with meals- Patient should be seated upright with head positioned in gentle flexion. Swallow is adequate, would advance to dysphagia/pureed diet. Bedside PT for PROM vs. contractures. Elevate arms on pillows vs edema. Thank you very much, Thomas Fairbanks MD
[2018-08-03] MEDS: LIPASE/PROTEASE/AMYLASE 36,000 UNIT CAPSULE PO SCH ×2 (12:11→16:40)
[2018-08-03] MEDS: PANTOPRAZOLE SODIUM 40 MG VIAL IVPUSH SCH (12:31)
[2018-08-03] MEDS: RIFAXIMIN 550 MG TABLET (UD) PO SCH ×3 (14:17→21:41)
[2018-08-03] MEDS: THIAMINE HCL 200 MG/2 ML VIAL IM SCH ×2 (14:19→21:52)
[2018-08-04] MEDS: NITROFURANTOIN MACROCRYSTAL 50 MG CAPSULE (FP) PO SCH ×4 (00:45→16:59)
[2018-08-04] MEDS: LEVOTHYROXINE NA 75 MCG TABLET (FP) PO SCH (05:59)
[2018-08-04] MEDS: THIAMINE HCL 200 MG/2 ML VIAL IM SCH ×3 (05:59→21:06)
[2018-08-04] MEDS: RIFAXIMIN 550 MG TABLET (UD) PO SCH ×3 (05:59→21:04)
[2018-08-04] MEDS: METOCLOPRAMIDE HCL 10 MG TABLET (FP) PO SCH ×3 (05:59→16:29)
[2018-08-04] MEDS: metroNIDAZOLE 250 MG TABLET PO SCH ×3 (05:59→21:04)
[2018-08-04] MEDS: INSULIN SLIDING SCALE (NOVOLOG) 1 VIAL SQ SCH ×4 (06:13→21:16)
[2018-08-04 06:27] LABS: HEMATOCRIT 38.2 % (32.4-45.2); HEMOGLOBIN 12.6 GM/dL (10.7-15.3); MCH 31.1 pg (25.7-33.7); MCHC 32.9 g/dl (32.0-36.0); MEAN CELL VOLUME 94.4 fl (80-96); MEAN PLT VOLUME 8.8 fl (7.5-11.1); PLATELET COUNT 180 K/MM3 (134-434); RBC 4.04 M/mm3 (3.60-5.2); RDW 18.7 % (11.6-15.6); WHITE BLOOD COUNT 6.9 K/mm3 (4.0-10.0)
[2018-08-04 06:51] LABS: ALBUMIN 1.6 g/dl (3.4-5.0); ALK PHOS 60 U/L (45-117); ANION GAP 4 MMOL/L (8-16); BILIRUBIN,TOTAL 0.7 mg/dL (0.2-1); BLOOD UREA NITROGEN 13 mg/dL (7-18); CALCIUM 7.7 mg/dL (8.5-10.1); CHLORIDE 115 mmol/L (98-107); CO2 26 mmol/L (21-32); CREATININE 0.6 mg/dL (0.55-1.3); GLUCOSE,RANDOM 235 mg/dL (74-106); POTASSIUM 3.2 mmol/L (3.5-5.1); SGOT/AST 15 U/L (15-37); SGPT/ALT 9 U/L (13-61); SODIUM 146 mmol/L (136-145); TOT PROT 4.6 g/dl (6.4-8.2)
[2018-08-04] MEDS: LIPASE/PROTEASE/AMYLASE 36,000 UNIT CAPSULE PO SCH ×3 (09:00→16:30)
--- NOTE | 2018-08-04 09:48 | PN ---
Progress Note, Physician - Current Medication List Current Medications: Active Medications Amino Acids (Prosource No Carb Liquid Pkt) 30 ml PO BID@0800,1730 [facility] Last Admin: 08/03/18 16:40 Dose: 30 ml Enoxaparin Sodium (Lovenox -) 40 mg SQ DAILY [facility] Last Admin: 08/03/18 10:22 Dose: 40 mg Potassium Chloride/Dextrose/Sod Cl (D5-1/2ns+20 Meq Kcl -) 20 meq in 1,000 mls @ 42 mls/hr IV ASDIR [facility] Last Admin: 08/03/18 15:06 Dose: 42 mls/hr Insulin Aspart (Novolog Vial Sliding Scale -) 1 vial SQ ACHS [facility]; Protocol Last Admin: 08/04/18 06:13 Dose: 2 units Levothyroxine Sodium (Synthroid -) 75 mcg PO DAILY@0700 [facility] Last Admin: 08/04/18 05:59 Dose: 75 mcg Metoclopramide HCl (Reglan -) 10 mg PO TIDAC [facility] Last Admin: 08/04/18 05:59 Dose: 10 mg Metoprolol Tartrate (Lopressor -) 50 mg PO BID [facility] Last Admin: 08/03/18 21:41 Dose: 50 mg Metronidazole (Flagyl -) 500 mg PO TID [facility] Last Admin: 08/04/18 05:59 Dose: 500 mg Nitrofurantoin Macrocrystals (Macrodantin -) 50 mg PO Q6HPO [facility] Last Admin: 08/04/18 05:59 Dose: 50 mg Ondansetron HCl (Zofran Odt -) 4 mg SL Q8H PRN PRN Reason: NAUSEA AND/OR VOMITING Pancrelipase (Crelalo Dr 36,000 Units Capsule) 1 cap PO TIDCM [facility] Last Admin: 08/03/18 16:40 Dose: 1 cap Pantoprazole Sodium (Protonix -) 40 mg PO BID [facility] Last Admin: 08/03/18 21:41 Dose: 40 mg Rifaximin (Xifaxan -) 550 mg PO TID [facility] Last Admin: 08/04/18 05:59 Dose: 550 mg Sucralfate (Carafate Oral Suspension -) 1 gm PO BID [facility] Last Admin: 08/03/18 21:40 Dose: 1 gm Thiamine HCl (Vitamin B1 Injection -) 250 mg IM TID [facility] Stop: 08/06/18 13:59 Last Admin: 08/04/18 05:59 Dose: 250 mg - Objective Vital Signs: Vital Signs Temperature 98.9 F 08/04/18 04:00 Pulse Rate 79 08/04/18 04:00 Respiratory Rate 20 08/04/18 04:00 Blood Pressure 143/71 08/04/18 04:00 O2 Sat by Pulse Oximetry (%) 95 08/03/18 21:00 Cardiovascular: Yes: S1, S2 Respiratory: Yes: Regular, CTA Bilaterally Gastrointestinal: Yes: Normal Bowel Sounds, Soft Neurological: Yes: Weakness Labs: CBC, BMP 08/04/18 06:00 08/04/18 06:00 Assessment/Plan - Problems (1) Complicated UTI (urinary tract infection) Assessment/Plan: -ID on board -no leukocytosis, afebrile -Macrobid -UC positive for ESBL and E.Coli Code(s): N39.0 - URINARY TRACT INFECTION, SITE NOT SPECIFIED (2) Diarrhea Assessment/Plan: -Flagyl IV -c-diff positive antigen, negative toxin -low fiber, lactose free diet Code(s): R19.7 - DIARRHEA, UNSPECIFIED (3) Afib Assessment/Plan: -continue Enoxaprin SQ Code(s): I48.91 - UNSPECIFIED ATRIAL FIBRILLATION Qualifiers: Atrial fibrillation type: paroxysmal Qualified Code(s): I48.0 - Paroxysmal atrial fibrillation (4) Altered mental status Assessment/Plan: -2/2 toxic metabolic encephalopathy -UC positive -Macrobid Code(s): R41.82 - ALTERED MENTAL STATUS, UNSPECIFIED (5) Diabetes mellitus with peripheral vascular disease Assessment/Plan: -BG ACHS -ISS -endo on board -will start Levemir when resume normal diet Code(s): E11.51 - TYPE 2 DIABETES W DIABETIC PERIPHERAL ANGIOPATH W/O GANGRENE (6) Hypokalemia Assessment/Plan: -K 3.5 -resolved -monitor electrolyte and replete daily Code(s): E87.6 - HYPOKALEMIA (7) Hypomagnesemia Assessment/Plan: -Mg 1.2 on 07/28 -monitor electryltes and replete as needed Code(s): E83.42 - HYPOMAGNESEMIA (8) Hypothyroid Assessment/Plan: -Levothyroxine 75mcg Code(s): E03.9 - HYPOTHYROIDISM, UNSPECIFIED (9) Abdominal pain Assessment/Plan: -start on Xifaxin TID, Carafate suspension, Creon TID AC -GI on board -FUA reviewed Code(s): R10.9 - UNSPECIFIED ABDOMINAL PAIN Qualifiers: Abdominal location: generalized Qualified Code(s): R10.84 - Generalized abdominal pain (10) Gastroparesis due to DM Assessment/Plan: -Reglan TID AC Code(s): E11.43 - TYPE 2 DIABETES W DIABETIC AUTONOMIC (POLY)NEUROPATHY; K31.84 - GASTROPARESIS (11) Chest pain Assessment/Plan: -EKG performed -troponin neg Code(s): R07.9 - CHEST PAIN, UNSPECIFIED
[2018-08-04 10:06] VITALS: BMI 38.9
[2018-08-04] MEDS: ENOXAPARIN NA (PORCINE) 40 MG/0.4 ML DISP.SYRIN SQ SCH (10:07)
[2018-08-04] MEDS: SUCRALFATE 1 GM/10 ML UNIT DOSE CUPS PO SCH ×2 (10:07→21:05)
[2018-08-04] MEDS: PANTOPRAZOLE 40 MG TABLET (FP) PO SCH ×2 (10:08→21:04)
[2018-08-04] MEDS: METOPROLOL TARTRATE 50 MG TABLET (FP) PO SCH ×2 (10:08→21:05)
[2018-08-04] MEDS: AMINO ACIDS/PROTEIN HYDROLYS 30 ML LIQUID.PKT PO SCH ×2 (10:09→16:29)
[2018-08-04] MEDS: D5-1/2NS+20 MEQ KCL - 20 MEQ/1,000 ML INFUS.BAG IV SCH ×2 (10:10→12:57)
[2018-08-04] MEDS: MULTIVIT-MINERALS ORAL LIQUID PO SCH (10:10)
[2018-08-04] MEDS ORDERED: KCL 10 MEQ IVPB 10 MEQ/100 ML INFUS.BAG IVPB SCH (16:45)
[2018-08-04] MEDS ORDERED: PT OWN MED DRAWER 7, Y5N ONE ×2 (17:13→23:22)
[2018-08-04] MEDS: IBUPROFEN 400 MG TABLET (FP) PO PRN (20:09)
[2018-08-04] MEDS ORDERED: INSULIN (NOVOLOG) ASPART 100 UNITS/ML 10ML VIAL ONE (21:16)
[2018-08-05] MEDS: NITROFURANTOIN MACROCRYSTAL 50 MG CAPSULE (FP) PO SCH ×4 (00:16→17:24)
[2018-08-05] MEDS: metroNIDAZOLE 250 MG TABLET PO SCH ×3 (05:51→21:47)
[2018-08-05] MEDS: THIAMINE HCL 200 MG/2 ML VIAL IM SCH ×3 (05:51→21:48)
[2018-08-05] MEDS: RIFAXIMIN 550 MG TABLET (UD) PO SCH ×3 (05:51→21:47)
[2018-08-05] MEDS: INSULIN SLIDING SCALE (NOVOLOG) 1 VIAL SQ SCH ×4 (06:03→21:51)
[2018-08-05] MEDS: LEVOTHYROXINE NA 75 MCG TABLET (FP) PO SCH (06:04)
[2018-08-05] MEDS: METOCLOPRAMIDE HCL 10 MG TABLET (FP) PO SCH ×3 (06:04→17:22)
[2018-08-05 08:12] LABS: BASO % 0.6 % (0-2.0); EOS % 7.7 % (0-4.5); HEMATOCRIT 35.8 % (32.4-45.2); HEMOGLOBIN 11.8 GM/dL (10.7-15.3); LYMPH % 34.6 % (8-40); MCH 31.6 pg (25.7-33.7); MCHC 33.1 g/dl (32.0-36.0); MEAN CELL VOLUME 95.4 fl (80-96); MEAN PLT VOLUME 8.8 fl (7.5-11.1); MONO % 12.2 % (3.8-10.2); NEUT % 44.9 % (42.8-82.8); PLATELET COUNT 146 K/MM3 (134-434); RBC 3.75 M/mm3 (3.60-5.2); RDW 18.8 % (11.6-15.6)
[2018-08-05 08:42] LABS: ALBUMIN 1.6 g/dl (3.4-5.0); ALK PHOS 54 U/L (45-117); ANION GAP 6 MMOL/L (8-16); BILIRUBIN,TOTAL 1.1 mg/dL (0.2-1); BLOOD UREA NITROGEN 19 mg/dL (7-18); CALCIUM 7.4 mg/dL (8.5-10.1); CHLORIDE 114 mmol/L (98-107); CO2 27 mmol/L (21-32); CREATININE 0.9 mg/dL (0.55-1.3); GLUCOSE,RANDOM 155 mg/dL (74-106); POTASSIUM 3.2 mmol/L (3.5-5.1); SGOT/AST 14 U/L (15-37); SGPT/ALT 7 U/L (13-61); SODIUM 147 mmol/L (136-145); TOT PROT 4.3 g/dl (6.4-8.2)
[2018-08-05] MEDS ORDERED: PT OWN MED DRAWER 7, Y5N ONE ×3 (08:53→17:12)
[2018-08-05] MEDS: AMINO ACIDS/PROTEIN HYDROLYS 30 ML LIQUID.PKT PO SCH ×2 (08:58→17:22)
[2018-08-05] MEDS: D5-1/2NS+20 MEQ KCL - 20 MEQ/1,000 ML INFUS.BAG IV SCH ×2 (08:59→12:09)
[2018-08-05] MEDS: LIPASE/PROTEASE/AMYLASE 36,000 UNIT CAPSULE PO SCH ×3 (08:59→17:23)
[2018-08-05] MEDS: ENOXAPARIN NA (PORCINE) 40 MG/0.4 ML DISP.SYRIN SQ SCH (09:01)
[2018-08-05] MEDS: METOPROLOL TARTRATE 50 MG TABLET (FP) PO SCH ×2 (09:02→21:48)
[2018-08-05] MEDS: PANTOPRAZOLE 40 MG TABLET (FP) PO SCH ×2 (09:02→21:47)
[2018-08-05] MEDS: SUCRALFATE 1 GM/10 ML UNIT DOSE CUPS PO SCH ×2 (09:02→21:47)
[2018-08-05] MEDS: MULTIVIT-MINERALS ORAL LIQUID PO SCH (09:03)
--- NOTE | 2018-08-05 09:37 | PN ---
Progress Note, Physician - Current Medication List Current Medications: Active Medications Amino Acids (Prosource No Carb Liquid Pkt) 30 ml PO BID@0800,1730 [facility] Last Admin: 08/05/18 08:58 Dose: 30 ml Enoxaparin Sodium (Lovenox -) 40 mg SQ DAILY [facility] Last Admin: 08/05/18 09:01 Dose: 40 mg Potassium Chloride/Dextrose/Sod Cl (D5-1/2ns+20 Meq Kcl -) 20 meq in 1,000 mls @ 42 mls/hr IV ASDIR [facility] Last Admin: 08/05/18 08:59 Dose: Not Given Ibuprofen (Motrin -) 400 mg PO Q6H PRN PRN Reason: FEVER Last Admin: 08/04/18 20:09 Dose: 400 mg Insulin Aspart (Novolog Vial Sliding Scale -) 1 vial SQ ACHS [facility]; Protocol Last Admin: 08/05/18 06:03 Dose: Not Given Levothyroxine Sodium (Synthroid -) 75 mcg PO DAILY@0700 [facility] Last Admin: 08/05/18 06:04 Dose: 75 mcg Metoclopramide HCl (Reglan -) 10 mg PO TIDAC [facility] Last Admin: 08/05/18 06:04 Dose: 10 mg Metoprolol Tartrate (Lopressor -) 50 mg PO BID [facility] Last Admin: 08/05/18 09:02 Dose: 50 mg Metronidazole (Flagyl -) 500 mg PO TID [facility] Last Admin: 08/05/18 05:51 Dose: 500 mg Nitrofurantoin Macrocrystals (Macrodantin -) 50 mg PO Q6HPO [facility] Last Admin: 08/05/18 05:52 Dose: 50 mg Ondansetron HCl (Zofran Odt -) 4 mg SL Q8H PRN PRN Reason: NAUSEA AND/OR VOMITING Pancrelipase (Creon Dr 36,000 Units Capsule) 1 cap PO TIDCM [facility] Last Admin: 08/05/18 08:59 Dose: 1 cap Pantoprazole Sodium (Protonix -) 40 mg PO BID [facility] Last Admin: 08/05/18 09:02 Dose: 40 mg Rifaximin (Xifaxan -) 550 mg PO TID [facility] Last Admin: 08/05/18 05:51 Dose: 550 mg Sucralfate (Carafate Oral Suspension -) 1 gm PO BID [facility] Last Admin: 08/05/18 09:02 Dose: 1 gm Thiamine HCl (Vitamin B1 Injection -) 250 mg IM TID [facility] Stop: 08/06/18 13:59 Last Admin: 08/05/18 05:51 Dose: 250 mg - Objective Vital Signs: Vital Signs Temperature 97.7 F 08/05/18 05:40 Pulse Rate 61 08/05/18 05:40 Respiratory Rate 20 08/05/18 05:40 Blood Pressure 124/66 08/05/18 05:40 O2 Sat by Pulse Oximetry (%) 98 08/04/18 21:00 Cardiovascular: Yes: S1, S2 Respiratory: Yes: Diminished Gastrointestinal: Yes: Normal Bowel Sounds, Soft Labs: CBC, BMP 08/05/18 07:20 08/05/18 07:20 Assessment/Plan - Problems (1) Complicated UTI (urinary tract infection) Assessment/Plan: -ID on board -no leukocytosis, afebrile -Macrobid -UC positive for ESBL and E.Coli Code(s): N39.0 - URINARY TRACT INFECTION, SITE NOT SPECIFIED (2) Diarrhea Assessment/Plan: -Flagyl IV -c-diff positive antigen, negative toxin -low fiber, lactose free diet Code(s): R19.7 - DIARRHEA, UNSPECIFIED (3) Afib Assessment/Plan: -continue Enoxaprin SQ Code(s): I48.91 - UNSPECIFIED ATRIAL FIBRILLATION Qualifiers: Atrial fibrillation type: paroxysmal Qualified Code(s): I48.0 - Paroxysmal atrial fibrillation (4) Altered mental status Assessment/Plan: -2/2 toxic metabolic encephalopathy -UC positive -Macrobid Code(s): R41.82 - ALTERED MENTAL STATUS, UNSPECIFIED (5) Diabetes mellitus with peripheral vascular disease Assessment/Plan: -BG ACHS -ISS -endo on board -will start Levemir when resume normal diet Code(s): E11.51 - TYPE 2 DIABETES W DIABETIC PERIPHERAL ANGIOPATH W/O GANGRENE (6) Hypokalemia Assessment/Plan: -K 3.2 -monitor electrolyte and replete daily Code(s): E87.6 - HYPOKALEMIA (7) Hypomagnesemia Assessment/Plan: -Mg 1.2 on 07/28 -monitor electryltes and replete as needed Code(s): E83.42 - HYPOMAGNESEMIA (8) Hypothyroid Assessment/Plan: -Levothyroxine 75mcg Code(s): E03.9 - HYPOTHYROIDISM, UNSPECIFIED (9) Abdominal pain Assessment/Plan: -start on Xifaxin TID, Carafate suspension, Creon TID AC -GI on board -FUA reviewed Code(s): R10.9 - UNSPECIFIED ABDOMINAL PAIN Qualifiers: Abdominal location: generalized Qualified Code(s): R10.84 - Generalized abdominal pain (10) Gastroparesis due to DM Assessment/Plan: -Reglan TID AC Code(s): E11.43 - TYPE 2 DIABETES W DIABETIC AUTONOMIC (POLY)NEUROPATHY; K31.84 - GASTROPARESIS (11) Chest pain Assessment/Plan: -EKG performed -troponin neg Code(s): R07.9 - CHEST PAIN, UNSPECIFIED
[2018-08-05] MEDS: IBUPROFEN 400 MG TABLET (FP) PO PRN (11:40)
[2018-08-05] MEDS ORDERED: INSULIN (NOVOLOG) ASPART 100 UNITS/ML 10ML VIAL ONE (21:49)
[2018-08-06] MEDS ORDERED: PT OWN MED DRAWER 7, Y5N ONE (05:45)
[2018-08-06] MEDS: NITROFURANTOIN MACROCRYSTAL 50 MG CAPSULE (FP) PO SCH ×4 (05:55→17:24)
[2018-08-06] MEDS: RIFAXIMIN 550 MG TABLET (UD) PO SCH ×3 (05:55→21:50)
[2018-08-06] MEDS: metroNIDAZOLE 250 MG TABLET PO SCH ×3 (05:55→21:50)
[2018-08-06] MEDS: THIAMINE HCL 200 MG/2 ML VIAL IM SCH (05:56)
[2018-08-06] MEDS: LEVOTHYROXINE NA 75 MCG TABLET (FP) PO SCH (05:59)
[2018-08-06] MEDS: METOCLOPRAMIDE HCL 10 MG TABLET (FP) PO SCH ×3 (05:59→17:23)
[2018-08-06] MEDS: INSULIN SLIDING SCALE (NOVOLOG) 1 VIAL SQ SCH ×4 (06:04→21:52)
[2018-08-06 07:49] LABS: BASO % 0.6 % (0-2.0); EOS % 6.9 % (0-4.5); LYMPH % 35.5 % (8-40); MCHC 32.6 g/dl (32.0-36.0); MEAN CELL VOLUME 95.3 fl (80-96); MEAN PLT VOLUME 8.8 fl (7.5-11.1); MONO % 10.9 % (3.8-10.2); NEUT % 46.1 % (42.8-82.8); PLATELET COUNT 163 K/MM3 (134-434); RBC 3.88 M/mm3 (3.60-5.2); RDW 18.5 % (11.6-15.6); WHITE BLOOD COUNT 7.3 K/mm3 (4.0-10.0)
[2018-08-06 08:21] LABS: ALBUMIN 1.6 g/dl (3.4-5.0); ALK PHOS 56 U/L (45-117); ANION GAP 4 MMOL/L (8-16); BILIRUBIN,TOTAL 0.6 mg/dL (0.2-1); BLOOD UREA NITROGEN 19 mg/dL (7-18); CALCIUM 7.7 mg/dL (8.5-10.1); CHLORIDE 112 mmol/L (98-107); CO2 26 mmol/L (21-32); CREATININE 0.7 mg/dL (0.55-1.3); GLUCOSE,RANDOM 151 mg/dL (74-106); MAGNESIUM 1.9 mg/dL (1.8-2.4); POTASSIUM 3.4 mmol/L (3.5-5.1); SGOT/AST 15 U/L (15-37); SGPT/ALT 11 U/L (13-61); SODIUM 143 mmol/L (136-145); TOT PROT 4.5 g/dl (6.4-8.2)
[2018-08-06] MEDS: AMINO ACIDS/PROTEIN HYDROLYS 30 ML LIQUID.PKT PO SCH ×2 (09:13→17:24)
[2018-08-06] MEDS: METOPROLOL TARTRATE 50 MG TABLET (FP) PO SCH ×2 (09:13→21:50)
[2018-08-06] MEDS: MULTIVIT-MINERALS ORAL LIQUID PO SCH (09:14)
[2018-08-06] MEDS: SUCRALFATE 1 GM/10 ML UNIT DOSE CUPS PO SCH ×2 (09:14→21:50)
[2018-08-06] MEDS: D5-1/2NS+20 MEQ KCL - 20 MEQ/1,000 ML INFUS.BAG IV SCH ×2 (09:14→10:27)
[2018-08-06] MEDS: LIPASE/PROTEASE/AMYLASE 36,000 UNIT CAPSULE PO SCH ×3 (09:15→17:23)
[2018-08-06] MEDS: ENOXAPARIN NA (PORCINE) 40 MG/0.4 ML DISP.SYRIN SQ SCH (09:16)
[2018-08-06] MEDS: PANTOPRAZOLE 40 MG TABLET (FP) PO SCH ×2 (09:29→21:50)
--- NOTE | 2018-08-06 11:04 | PN ---
Progress Note, Physician Chief Complaint: UTI TOxic Metabolic Ecephalopathy History of Present Illness: Previous notes ad events reviewed awake and alert NAD patient is more awake today and verbally responsive, follows commands compain of generalized abdominal pain poor PO intake daughters at bedside and wish for discharge mother to return home with PT Services, explained benefit of SNF for more intense rehab and they refuse - Current Medication List Current Medications: Active Medications Amino Acids (Prosource No Carb Liquid Pkt) 30 ml PO BID@0800,1730 [facility] Last Admin: 08/06/18 09:13 Dose: 30 ml Enoxaparin Sodium (Lovenox -) 40 mg SQ DAILY [facility] Last Admin: 08/06/18 09:16 Dose: 40 mg Potassium Chloride/Dextrose/Sod Cl (D5-1/2ns+20 Meq Kcl -) 20 meq in 1,000 mls @ 42 mls/hr IV ASDIR [facility] Last Admin: 08/06/18 10:27 Dose: 42 mls/hr Ibuprofen (Motrin -) 400 mg PO Q6H PRN PRN Reason: FEVER Last Admin: 08/05/18 11:40 Dose: 400 mg Insulin Aspart (Novolog Vial Sliding Scale -) 1 vial SQ ACHS [facility]; Protocol Last Admin: 08/06/18 10:32 Dose: Not Given Levothyroxine Sodium (Synthroid -) 75 mcg PO DAILY@0700 [facility] Last Admin: 08/06/18 05:59 Dose: 75 mcg Metoclopramide HCl (Reglan -) 10 mg PO TIDAC [facility] Last Admin: 08/06/18 05:59 Dose: 10 mg Metoprolol Tartrate (Lopressor -) 50 mg PO BID [facility] Last Admin: 08/06/18 09:13 Dose: 50 mg Metronidazole (Flagyl -) 500 mg PO TID [facility] Last Admin: 08/06/18 05:55 Dose: 500 mg Nitrofurantoin Macrocrystals (Macrodantin -) 50 mg PO Q6HPO [facility] Last Admin: 08/06/18 05:55 Dose: 50 mg Ondansetron HCl (Zofran Odt -) 4 mg SL Q8H PRN PRN Reason: NAUSEA AND/OR VOMITING Last Admin: 08/05/18 13:28 Dose: 4 mg Pancrelipase (Creon Dr 36,000 Units Capsule) 1 cap PO TIDCM [facility] Last Admin: 08/06/18 09:15 Dose: 1 cap Pantoprazole Sodium (Protonix -) 40 mg PO BID [facility] Last Admin: 08/06/18 09:29 Dose: 40 mg Rifaximin (Xifaxan -) 550 mg PO TID [facility] Last Admin: 08/06/18 05:55 Dose: 550 mg Sucralfate (Carafate Oral Suspension -) 1 gm PO BID [facility] Last Admin: 08/06/18 09:14 Dose: 1 gm Thiamine HCl (Vitamin B1 Injection -) 250 mg IM TID [facility] Stop: 08/06/18 13:59 Last Admin: 08/06/18 05:56 Dose: 250 mg - Objective Vital Signs: Vital Signs Temperature 97.4 F L 08/06/18 06:00 Pulse Rate 85 08/06/18 06:00 Respiratory Rate 18 08/06/18 06:00 Blood Pressure 122/59 L 08/06/18 06:00 O2 Sat by Pulse Oximetry (%) 99 08/05/18 21:00 Constitutional: Yes: No Distress, Calm Eyes: Yes: Conjunctiva Clear HENT: Yes: Atraumatic Cardiovascular: Yes: Regular Rate and Rhythm Respiratory: Yes: Regular, Diminished, On Nasal O2 Gastrointestinal: Yes: Normal Bowel Sounds, Soft, Abdomen, Obese, Tenderness ( epigastric) Genitourinary: Yes: Incontinence Musculoskeletal: Yes: Muscle Weakness Extremities: Yes: WNL Edema: Yes (b/l upper extremity) Neurological: Yes: Alert, Pre-Existing Deficit Psychiatric: Yes: Alert Labs: CBC, BMP 08/06/18 06:30 08/06/18 06:30 Microbiology 07/28/18 23:59 Stool Salmonella/Shigella Culture - Final 07/28/18 23:59 Stool Campylobacter Culture - Final NO GROWTH OF CAMPYLOBACTER SPECIES OBTAINED 07/28/18 23:59 Stool Yersinia Culture - Final NO GROWTH OF YERSINIA SPECIES OBTAINED 07/28/18 23:59 Stool Vibrio Culture - Final NO GROWTH OF VIBRIO SPECIES OBTAINED 07/28/18 23:59 Stool Escherichia coli 0157 Culture - Final NO GROWTH OF E COLI 0157 OBTAINED 07/28/18 23:59 Stool Gram Stain - Final 07/28/18 23:59 Stool Clostridioides difficile Antigen - Final 07/28/18 23:59 Stool Clostridioides difficile Toxin Assay - Final 07/26/18 14:56 Urine - Urine Clean Catch Urine Culture - Final Escherichia Coli Esbl [employer]ist Lactose Fermenting Neg Bacilli#2 Problem List - Problems (1) Complicated UTI (urinary tract infection) Assessment/Plan: -ID on board -no leukocytosis, afebrile -Macrobid -UC positive for ESBL and E.Coli Code(s): N39.0 - URINARY TRACT INFECTION, SITE NOT SPECIFIED (2) Diarrhea Assessment/Plan: -Flagyl IV -c-diff positive antigen, negative toxin -low fiber, lactose free diet Code(s): R19.7 - DIARRHEA, UNSPECIFIED (3) Afib Assessment/Plan: -continue Enoxaprin SQ Code(s): I48.91 - UNSPECIFIED ATRIAL FIBRILLATION Qualifiers: Atrial fibrillation type: paroxysmal Qualified Code(s): I48.0 - Paroxysmal atrial fibrillation (4) Altered mental status Assessment/Plan: -2/2 toxic metabolic encephalopathy -UC positive -Macrobid Code(s): R41.82 - ALTERED MENTAL STATUS, UNSPECIFIED (5) Diabetes mellitus with peripheral vascular disease Assessment/Plan: -BG ACHS -ISS -endo on board -will start Levemir when resume normal diet Code(s): E11.51 - TYPE 2 DIABETES W DIABETIC PERIPHERAL ANGIOPATH W/O GANGRENE (6) Hypokalemia Assessment/Plan: -K 3.4 -KCl 40mEq PO X 1 dose, -monitor electrolyte and replete daily -D5 1/2NS + 20mEq KCL Code(s): E87.6 - HYPOKALEMIA (7) Hypomagnesemia Assessment/Plan: -Mg 1.2 on 07/28 -monitor electryltes and replete as needed Code(s): E83.42 - HYPOMAGNESEMIA (8) Hypothyroid Assessment/Plan: -Levothyroxine 75mcg Code(s): E03.9 - HYPOTHYROIDISM, UNSPECIFIED (9) Abdominal pain Assessment/Plan: -start on Xifaxin TID, Carafate suspension, Creon TID AC -GI on board -FUA reviewed Code(s): R10.9 - UNSPECIFIED ABDOMINAL PAIN Qualifiers: Abdominal location: generalized Qualified Code(s): R10.84 - Generalized abdominal pain (10) Gastroparesis due to DM Assessment/Plan: -Reglan TID AC Code(s): E11.43 - TYPE 2 DIABETES W DIABETIC AUTONOMIC (POLY)NEUROPATHY; K31.84 - GASTROPARESIS (11) Chest pain Assessment/Plan: -EKG performed -troponin neg -resolved Code(s): R07.9 - CHEST PAIN, UNSPECIFIED Assessment/Plan see problem list dvt ppx palliative consult
[2018-08-06] MEDS ORDERED: POTASSIUM CHLORIDE ORAL LIQUID 20 MEQ/15 ML PO ONE (11:30)
[2018-08-07] MEDS: NITROFURANTOIN MACROCRYSTAL 50 MG CAPSULE (FP) PO SCH ×3 (00:17→12:33)
[2018-08-07] MEDS: RIFAXIMIN 550 MG TABLET (UD) PO SCH ×3 (05:19→21:06)
[2018-08-07] MEDS: metroNIDAZOLE 250 MG TABLET PO SCH ×3 (05:20→21:06)
[2018-08-07] MEDS: METOCLOPRAMIDE HCL 10 MG TABLET (FP) PO SCH ×3 (06:05→17:58)
[2018-08-07] MEDS: LEVOTHYROXINE NA 75 MCG TABLET (FP) PO SCH (06:05)
[2018-08-07] MEDS: INSULIN SLIDING SCALE (NOVOLOG) 1 VIAL SQ SCH ×4 (06:05→21:06)
[2018-08-07] MEDS ORDERED: PT OWN MED DRAWER 7, Y5N ONE ×2 (09:36→17:54)
[2018-08-07] MEDS: METOPROLOL TARTRATE 50 MG TABLET (FP) PO SCH ×2 (09:40→21:06)
[2018-08-07] MEDS: SUCRALFATE 1 GM/10 ML UNIT DOSE CUPS PO SCH ×2 (09:40→21:06)
[2018-08-07] MEDS: ENOXAPARIN NA (PORCINE) 40 MG/0.4 ML DISP.SYRIN SQ SCH (09:40)
[2018-08-07] MEDS: PANTOPRAZOLE 40 MG TABLET (FP) PO SCH ×2 (09:40→21:06)
[2018-08-07] MEDS: AMINO ACIDS/PROTEIN HYDROLYS 30 ML LIQUID.PKT PO SCH ×2 (09:40→17:58)
[2018-08-07] MEDS: LIPASE/PROTEASE/AMYLASE 36,000 UNIT CAPSULE PO SCH ×3 (09:41→17:59)
[2018-08-07] MEDS: MULTIVIT-MINERALS ORAL LIQUID PO SCH (09:41)
[2018-08-07 09:42] LABS: HEMATOCRIT 35.8 % (32.4-45.2); HEMOGLOBIN 11.7 GM/dL (10.7-15.3); MCH 31.1 pg (25.7-33.7); MCHC 32.6 g/dl (32.0-36.0); MEAN CELL VOLUME 95.3 fl (80-96); PLATELET COUNT 179 K/MM3 (134-434); RBC 3.75 M/mm3 (3.60-5.2); RDW 18.5 % (11.6-15.6); WHITE BLOOD COUNT 7.6 K/mm3 (4.0-10.0)
[2018-08-07] MEDS: D5-1/2NS+20 MEQ KCL - 20 MEQ/1,000 ML INFUS.BAG IV SCH ×2 (09:43→09:44)
[2018-08-07 10:26] LABS: ALBUMIN 1.6 g/dl (3.4-5.0); ALK PHOS 53 U/L (45-117); ANION GAP 3 MMOL/L (8-16); BILIRUBIN,TOTAL 0.5 mg/dL (0.2-1); BLOOD UREA NITROGEN 14 mg/dL (7-18); CALCIUM 7.7 mg/dL (8.5-10.1); CHLORIDE 111 mmol/L (98-107); CO2 26 mmol/L (21-32); CREATININE 0.5 mg/dL (0.55-1.3); GLUCOSE,RANDOM 168 mg/dL (74-106); POTASSIUM 3.9 mmol/L (3.5-5.1); SGOT/AST 17 U/L (15-37); SGPT/ALT 11 U/L (13-61); SODIUM 141 mmol/L (136-145); TOT PROT 4.6 g/dl (6.4-8.2)
--- NOTE | 2018-08-07 14:54 | PN ---
Progress Note, Physician Chief Complaint: UTI TOxic Metabolic Ecephalopathy History of Present Illness: Previous notes ad events reviewed awake and alert NAD patient is more awake today and verbally responsive, compain of generalized abdominal pain poor PO intake - Current Medication List Current Medications: Active Medications Amino Acids (Prosource No Carb Liquid Pkt) 30 ml PO BID@0800,1730 [facility] Last Admin: 08/07/18 09:40 Dose: 30 ml Enoxaparin Sodium (Lovenox -) 40 mg SQ DAILY [facility] Last Admin: 08/07/18 09:40 Dose: 40 mg Potassium Chloride/Dextrose/Sod Cl (D5-1/2ns+20 Meq Kcl -) 20 meq in 1,000 mls @ 42 mls/hr IV ASDIR [facility] Last Admin: 08/07/18 09:44 Dose: 42 mls/hr Ibuprofen (Motrin -) 400 mg PO Q6H PRN PRN Reason: FEVER Last Admin: 08/05/18 11:40 Dose: 400 mg Insulin Aspart (Novolog Vial Sliding Scale -) 1 vial SQ [facility]; Protocol Last Admin: 08/07/18 12:31 Dose: Not Given Levothyroxine Sodium (Synthroid -) 75 mcg PO DAILY@0700 [facility] Last Admin: 08/07/18 06:05 Dose: 75 mcg Metoclopramide HCl (Reglan -) 10 mg PO TIDAC [facility] Last Admin: 08/07/18 12:26 Dose: 10 mg Metoprolol Tartrate (Lopressor -) 50 mg PO BID [facility] Last Admin: 08/07/18 09:40 Dose: 50 mg Metronidazole (Flagyl -) 500 mg PO TID [facility] Last Admin: 08/07/18 14:45 Dose: 500 mg Nitrofurantoin Macrocrystals (Macrodantin -) 50 mg PO Q6HPO [facility] Last Admin: 08/07/18 12:33 Dose: 50 mg Ondansetron HCl (Zofran Odt -) 4 mg SL Q8H PRN PRN Reason: NAUSEA AND/OR VOMITING Last Admin: 08/05/18 13:28 Dose: 4 mg Pancrelipase (Creon Dr 36,000 Units Capsule) 1 cap PO TIDCM [facility] Last Admin: 08/07/18 12:27 Dose: 1 cap Pantoprazole Sodium (Protonix -) 40 mg PO BID [facility] Last Admin: 08/07/18 09:40 Dose: 40 mg Rifaximin (Xifaxan -) 550 mg PO TID [facility] Last Admin: 08/07/18 14:45 Dose: 550 mg Sucralfate (Carafate Oral Suspension -) 1 gm PO BID [facility] Last Admin: 08/07/18 09:40 Dose: 1 gm - Objective Vital Signs: Vital Signs Temperature 98 F 08/07/18 04:00 Pulse Rate 98 H 08/07/18 04:00 Respiratory Rate 20 08/07/18 09:00 Blood Pressure 123/68 08/07/18 04:00 O2 Sat by Pulse Oximetry (%) 100 08/07/18 09:00 Constitutional: Yes: No Distress, Calm Eyes: Yes: Conjunctiva Clear HENT: Yes: Atraumatic Cardiovascular: Yes: Regular Rate and Rhythm Respiratory: Yes: Diminished, On Nasal O2 Gastrointestinal: Yes: Normal Bowel Sounds, Soft, Abdomen, Obese, Tenderness ( diffuse) Genitourinary: Yes: Incontinence Musculoskeletal: Yes: Muscle Weakness Extremities: Yes: WNL Edema: No Neurological: Yes: Alert, Pre-Existing Deficit Psychiatric: Yes: Alert Labs: CBC, BMP 08/07/18 09:00 08/07/18 09:00 Microbiology 07/28/18 23:59 Stool Salmonella/Shigella Culture - Final 07/28/18 23:59 Stool Campylobacter Culture - Final NO GROWTH OF CAMPYLOBACTER SPECIES OBTAINED 07/28/18 23:59 Stool Yersinia Culture - Final NO GROWTH OF YERSINIA SPECIES OBTAINED 07/28/18 23:59 Stool Vibrio Culture - Final NO GROWTH OF VIBRIO SPECIES OBTAINED 07/28/18 23:59 Stool Escherichia coli 0157 Culture - Final NO GROWTH OF E COLI 0157 OBTAINED 07/28/18 23:59 Stool Gram Stain - Final 07/28/18 23:59 Stool Clostridioides difficile Antigen - Final 07/28/18 23:59 Stool Clostridioides difficile Toxin Assay - Final 07/26/18 14:56 Urine - Urine Clean Catch Urine Culture - Final Escherichia Coli Esbl [employer] Lactose Fermenting Neg Bacilli#2 Problem List - Problems (1) Complicated UTI (urinary tract infection) Assessment/Plan: -ID on board -no leukocytosis, afebrile -Macrobid -UC positive for ESBL and E.Coli Code(s): N39.0 - URINARY TRACT INFECTION, SITE NOT SPECIFIED (2) Diarrhea Assessment/Plan: -Flagyl IV -c-diff positive antigen, negative toxin -low fiber, lactose free diet Code(s): R19.7 - DIARRHEA, UNSPECIFIED (3) Afib Assessment/Plan: -continue Enoxaprin SQ Code(s): I48.91 - UNSPECIFIED ATRIAL FIBRILLATION Qualifiers: Atrial fibrillation type: paroxysmal Qualified Code(s): I48.0 - Paroxysmal atrial fibrillation (4) Altered mental status Assessment/Plan: -2/2 toxic metabolic encephalopathy -UC positive -Macrobid Code(s): R41.82 - ALTERED MENTAL STATUS, UNSPECIFIED (5) Diabetes mellitus with peripheral vascular disease Assessment/Plan: -BG ACHS -ISS -endo on board -will start Levemir when resume normal diet Code(s): E11.51 - TYPE 2 DIABETES W DIABETIC PERIPHERAL ANGIOPATH W/O GANGRENE (6) Hypokalemia Assessment/Plan: -K 3.9 -monitor electrolyte and replete daily -D5 1/2NS + 20mEq KCL Code(s): E87.6 - HYPOKALEMIA (7) Hypomagnesemia Assessment/Plan: -Mg 1.2 on 07/28 -monitor electryltes and replete as needed Code(s): E83.42 - HYPOMAGNESEMIA (8) Hypothyroid Assessment/Plan: -Levothyroxine 75mcg Code(s): E03.9 - HYPOTHYROIDISM, UNSPECIFIED (9) Abdominal pain Assessment/Plan: -start on Xifaxin TID, Carafate suspension, Creon TID AC -GI on board -FUA reviewed Code(s): R10.9 - UNSPECIFIED ABDOMINAL PAIN Qualifiers: Abdominal location: generalized Qualified Code(s): R10.84 - Generalized abdominal pain (10) Gastroparesis due to DM Assessment/Plan: -Reglan TID AC Code(s): E11.43 - TYPE 2 DIABETES W DIABETIC AUTONOMIC (POLY)NEUROPATHY; K31.84 - GASTROPARESIS (11) Chest pain Assessment/Plan: -EKG performed -troponin neg -resolved Code(s): R07.9 - CHEST PAIN, UNSPECIFIED Assessment/Plan see problem list dvt ppx palliative consult home PT for discharge
[2018-08-07] MEDS ORDERED: INSULIN (NOVOLOG) ASPART 100 UNITS/ML 10ML VIAL ONE (20:51)
[2018-08-08] MEDS: RIFAXIMIN 550 MG TABLET (UD) PO SCH ×2 (06:35→14:45)
[2018-08-08] MEDS: metroNIDAZOLE 250 MG TABLET PO SCH ×2 (06:35→14:45)
[2018-08-08] MEDS: METOCLOPRAMIDE HCL 10 MG TABLET (FP) PO SCH ×3 (06:35→15:51)
[2018-08-08] MEDS: D5-1/2NS+20 MEQ KCL - 20 MEQ/1,000 ML INFUS.BAG IV SCH ×2 (06:39→08:58)
[2018-08-08] MEDS: LEVOTHYROXINE NA 75 MCG TABLET (FP) PO SCH (06:43)
[2018-08-08] MEDS: INSULIN SLIDING SCALE (NOVOLOG) 1 VIAL SQ SCH ×3 (06:44→15:52)
[2018-08-08 08:29] LABS: HEMATOCRIT 33.9 % (32.4-45.2); HEMOGLOBIN 11.2 GM/dL (10.7-15.3); MCH 31.4 pg (25.7-33.7); MCHC 32.9 g/dl (32.0-36.0); MEAN CELL VOLUME 95.6 fl (80-96); MEAN PLT VOLUME 9.5 fl (7.5-11.1); PLATELET COUNT 195 K/MM3 (134-434); RBC 3.55 M/mm3 (3.60-5.2); RDW 18.2 % (11.6-15.6); WHITE BLOOD COUNT 8.1 K/mm3 (4.0-10.0)
[2018-08-08] MEDS ORDERED: PT OWN MED DRAWER 7, Y5N ONE (08:32)
[2018-08-08] MEDS: AMINO ACIDS/PROTEIN HYDROLYS 30 ML LIQUID.PKT PO SCH (08:57)
[2018-08-08] MEDS: LIPASE/PROTEASE/AMYLASE 36,000 UNIT CAPSULE PO SCH ×2 (08:57→11:34)
[2018-08-08] MEDS: SUCRALFATE 1 GM/10 ML UNIT DOSE CUPS PO SCH (09:00)
[2018-08-08] MEDS: PANTOPRAZOLE 40 MG TABLET (FP) PO SCH (09:00)
[2018-08-08] MEDS: METOPROLOL TARTRATE 50 MG TABLET (FP) PO SCH (09:00)
[2018-08-08] MEDS: MULTIVIT-MINERALS ORAL LIQUID PO SCH (09:01)
[2018-08-08] MEDS: ENOXAPARIN NA (PORCINE) 40 MG/0.4 ML DISP.SYRIN SQ SCH (09:01)
[2018-08-08 09:15] LABS: ALBUMIN 1.6 g/dl (3.4-5.0); ALK PHOS 54 U/L (45-117); ANION GAP 3 MMOL/L (8-16); BILIRUBIN,TOTAL 0.6 mg/dL (0.2-1); BLOOD UREA NITROGEN 13 mg/dL (7-18); CALCIUM 7.5 mg/dL (8.5-10.1); CHLORIDE 111 mmol/L (98-107); CO2 26 mmol/L (21-32); CREATININE 0.4 mg/dL (0.55-1.3); GLUCOSE,RANDOM 151 mg/dL (74-106); POTASSIUM 4.3 mmol/L (3.5-5.1); SGOT/AST 19 U/L (15-37); SGPT/ALT 12 U/L (13-61); SODIUM 141 mmol/L (136-145); TOT PROT 4.4 g/dl (6.4-8.2)
[2018-08-08] MEDS ORDERED: ALBUTEROL SO4 0.083% IH SOL 2.5 MG/3 ML VIAL.NEB. NEB PRN (13:44)
[2018-08-08 14:13] VITALS: BP 132/68; PULSE 76; TEMP 98.6
--- NOTE | 2018-08-08 15:06 | DS ---
Physical Examination Vital Signs: Vital Signs Temperature 98.6 F 08/08/18 14:00 Pulse Rate 76 08/08/18 14:00 Respiratory Rate 18 08/08/18 14:00 Blood Pressure 132/68 08/08/18 14:00 O2 Sat by Pulse Oximetry (%) 97 08/08/18 09:00 Findings/Remarks: Patient is an 88 y/o female with past medical history of DM, Gastroparesis, HTN , CAD, NSTEMI, Paroxysmal Afib, diastolic CHF, hypothyroidism. Patient presented to ER with complaints of AMS for 2 days, localized epigastric pain, vomiting, diarrhea. Constitutional: Yes: No Distress, Calm Eyes: Yes: Conjunctiva Clear HENT: Yes: Atraumatic Cardiovascular: Yes: Regular Rate and Rhythm Respiratory: Yes: Regular, On Nasal O2, Wheezes Gastrointestinal: Yes: Normal Bowel Sounds, Soft, Abdomen, Obese Renal/: Yes: Incontinence Musculoskeletal: Yes: Muscle Weakness Extremities: Yes: WNL Edema: Yes Neurological: Yes: Alert, Pre-Existing Deficit Psychiatric: Yes: Alert Labs: CBC, BMP 08/08/18 06:00 08/08/18 06:00 Discharge Summary Reason For Visit: COMPLICATED UTI Current Active Problems Chest pain (Acute) Complicated UTI (urinary tract infection) (Acute) Diarrhea (Acute) Lethargy (Acute) Loose stools (Acute) Type 2 diabetes mellitus with diabetic nephropathy (Acute) Hospital Course: see progress notes Laboratory Tests 07/26/18 07/26/18 07/26/18 12:30 12:30 14:56 WBC 8.5 RBC 4.53 Hgb 14.1 Hct 43.0 MCV 94.9 MCH 31.2 MCHC 32.9 RDW 19.0 H Plt Count 160 MPV 9.1 Absolute Neuts (auto) 4.9 Neutrophils % 58.1 Lymphocytes % 29.2 D Monocytes % 10.6 H Eosinophils % 1.0 D Basophils % 1.1 Nucleated RBC % 0 Sodium 146 H Potassium 3.6 Chloride 109 H Carbon Dioxide 28 Anion Gap 9 BUN 8 Creatinine 0.6 Creat Clearance w eGFR 94.56 POC Glucometer Random Glucose 143 H Calcium 7.7 L Magnesium 1.4 L Total Bilirubin 1.4 H AST 31 ALT 14 Alkaline Phosphatase 65 Creatine Kinase 66 Troponin I 0.02 Total Protein 5.4 L Albumin 1.8 L Lipase 44 L Vitamin B12 TSH 1.83 Free T4 1.83 H Urine Color Dk yellow Urine Appearance Cloudy Urine pH 5.5 Ur Specific [place] 1.023 Urine Protein 1+ H Urine Glucose (UA) Negative Urine Ketones 2+ H Urine Blood 1+ H Urine Nitrite Positive H Urine Bilirubin 1+ H Urine Urobilinogen 1.0 Ur Leukocyte Esterase 2+ H Urine WBC (Auto) 219 Urine RBC (Auto) 1 Urine Casts (Auto) 25 U Pathogenic Cast Auto None seen U Epithel Cells (Auto) 10.8 Urine Bacteria (Auto) 735.9 Stool Occult Blood RPR Titer 07/26/18 07/27/18 07/27/18 23:29 06:26 09:40 WBC 7.2 RBC 4.25 Hgb 13.4 Hct 40.1 MCV 94.2 MCH 31.6 MCHC 33.5 RDW 19.0 H Plt Count 150 MPV 9.5 Absolute Neuts (auto) Neutrophils % Lymphocytes % Monocytes % Eosinophils % Basophils % Nucleated RBC % Sodium Potassium Chloride Carbon Dioxide Anion Gap BUN Creatinine Creat Clearance w eGFR POC Glucometer 126 155 Random Glucose Calcium Magnesium Total Bilirubin AST ALT Alkaline Phosphatase Creatine Kinase Troponin I Total Protein Albumin Lipase Vitamin B12 TSH Free T4 Urine Color Urine Appearance Urine pH Ur Specific [place] Urine Protein Urine Glucose (UA) Urine Ketones Urine Blood Urine Nitrite Urine Bilirubin Urine Urobilinogen Ur Leukocyte Esterase Urine WBC (Auto) Urine RBC (Auto) Urine Casts (Auto) U Pathogenic Cast Auto U Epithel Cells (Auto) Urine Bacteria (Auto) Stool Occult Blood RPR Titer 07/27/18 07/28/18 07/28/18 09:40 06:35 06:35 WBC 6.7 RBC 3.88 Hgb 12.2 Hct 36.7 MCV 94.8 MCH 31.5 MCHC 33.3 RDW 19.1 H Plt Count 140 MPV 9.4 Absolute Neuts (auto) 3.2 Neutrophils % 46.8 Lymphocytes % 38.1 D Monocytes % 11.0 H Eosinophils % 3.6 D Basophils % 0.5 Nucleated RBC % 0 Sodium 146 H 143 Potassium 3.4 L 2.9 L* Chloride 110 H 110 H Carbon Dioxide 30 28 Anion Gap 7 L 5 L BUN 8 6 L Creatinine 0.8 0.6 Creat Clearance w eGFR 67.85 94.56 POC Glucometer Random Glucose 171 H 192 H Calcium 7.7 L 7.3 L Magnesium 1.2 L Total Bilirubin 0.8 AST 20 ALT 11 L Alkaline Phosphatase 58 Creatine Kinase Troponin I Total Protein 4.7 L Albumin 1.6 L Lipase Vitamin B12 TSH Free T4 Urine Color Urine Appearance Urine pH Ur Specific [place] Urine Protein Urine Glucose (UA) Urine Ketones Urine Blood Urine Nitrite Urine Bilirubin Urine Urobilinogen Ur Leukocyte Esterase Urine WBC (Auto) Urine RBC (Auto) Urine Casts (Auto) U Pathogenic Cast Auto U Epithel Cells (Auto) Urine Bacteria (Auto) Stool Occult Blood RPR Titer 07/28/18 07/28/18 07/28/18 12:17 17:32 21:59 WBC RBC Hgb Hct MCV MCH MCHC RDW Plt Count MPV Absolute Neuts (auto) Neutrophils % Lymphocytes % Monocytes % Eosinophils % Basophils % Nucleated RBC % Sodium Potassium Chloride Carbon Dioxide Anion Gap BUN Creatinine Creat Clearance w eGFR POC Glucometer 135 207 148 Random Glucose Calcium Magnesium Total Bilirubin AST ALT Alkaline Phosphatase Creatine Kinase Troponin I Total Protein Albumin Lipase Vitamin B12 TSH Free T4 Urine Color Urine Appearance Urine pH Ur Specific [place] Urine Protein Urine Glucose (UA) Urine Ketones Urine Blood Urine Nitrite Urine Bilirubin Urine Urobilinogen Ur Leukocyte Esterase Urine WBC (Auto) Urine RBC (Auto) Urine Casts (Auto) U Pathogenic Cast Auto U Epithel Cells (Auto) Urine Bacteria (Auto) Stool Occult Blood RPR Titer 07/29/18 07/29/18 07/29/18 05:42 07:00 07:00 WBC 6.7 RBC 3.76 Hgb 12.0 Hct 35.6 MCV 94.7 MCH 31.8 MCHC 33.6 RDW 18.8 H Plt Count 147 MPV 9.2 Absolute Neuts (auto) Neutrophils % Lymphocytes % Monocytes % Eosinophils % Basophils % Nucleated RBC % Sodium 147 H Potassium 3.9 Chloride 112 H Carbon Dioxide 27 Anion Gap 7 L BUN 7 Creatinine 0.7 Creat Clearance w eGFR 79.15 POC Glucometer 129 Random Glucose 183 H Calcium 7.5 L Magnesium Total Bilirubin 0.6 AST 26 ALT 11 L Alkaline Phosphatase 59 Creatine Kinase Troponin I Total Protein 4.8 L Albumin 1.6 L Lipase Vitamin B12 TSH Free T4 Urine Color Urine Appearance Urine pH Ur Specific [place] Urine Protein Urine Glucose (UA) Urine Ketones Urine Blood Urine Nitrite Urine Bilirubin Urine Urobilinogen Ur Leukocyte Esterase Urine WBC (Auto) Urine RBC (Auto) Urine Casts (Auto) U Pathogenic Cast Auto U Epithel Cells (Auto) Urine Bacteria (Auto) Stool Occult Blood RPR Titer 07/29/18 07/29/18 07/29/18 11:28 17:00 21:40 WBC RBC Hgb Hct MCV MCH MCHC RDW Plt Count MPV Absolute Neuts (auto) Neutrophils % Lymphocytes % Monocytes % Eosinophils % Basophils % Nucleated RBC % Sodium Potassium Chloride Carbon Dioxide Anion Gap BUN Creatinine Creat Clearance w eGFR POC Glucometer 182 152 179 Random Glucose Calcium Magnesium Total Bilirubin AST ALT Alkaline Phosphatase Creatine Kinase Troponin I Total Protein Albumin Lipase Vitamin B12 TSH Free T4 Urine Color Urine Appearance Urine pH Ur Specific [place] Urine Protein Urine Glucose (UA) Urine Ketones Urine Blood Urine Nitrite Urine Bilirubin Urine Urobilinogen Ur Leukocyte Esterase Urine WBC (Auto) Urine RBC (Auto) Urine Casts (Auto) U Pathogenic Cast Auto U Epithel Cells (Auto) Urine Bacteria (Auto) Stool Occult Blood RPR Titer 07/30/18 07/30/18 07/30/18 05:34 06:30 07:00 WBC 6.0 RBC 3.65 Hgb 11.7 Hct 34.9 MCV 95.6 MCH 32.0 MCHC 33.5 RDW 19.0 H Plt Count 133 L MPV 9.3 Absolute Neuts (auto) Neutrophils % Lymphocytes % Monocytes % Eosinophils % Basophils % Nucleated RBC % Sodium 147 H Potassium 4.9 Chloride 114 H Carbon Dioxide 28 Anion Gap 5 L BUN 6 L Creatinine 0.7 Creat Clearance w eGFR 79.15 POC Glucometer 148 Random Glucose 162 H Calcium 7.4 L Magnesium Total Bilirubin 0.6 AST 35 ALT 15 Alkaline Phosphatase 58 Creatine Kinase Troponin I Total Protein 4.8 L Albumin 1.6 L Lipase Vitamin B12 TSH Free T4 Urine Color Urine Appearance Urine pH Ur Specific [place] Urine Protein Urine Glucose (UA) Urine Ketones Urine Blood Urine Nitrite Urine Bilirubin Urine Urobilinogen Ur Leukocyte Esterase Urine WBC (Auto) Urine RBC (Auto) Urine Casts (Auto) U Pathogenic Cast Auto U Epithel Cells (Auto) Urine Bacteria (Auto) Stool Occult Blood RPR Titer 07/30/18 07/30/18 07/30/18 12:01 17:21 21:59 WBC RBC Hgb Hct MCV MCH MCHC RDW Plt Count MPV Absolute Neuts (auto) Neutrophils % Lymphocytes % Monocytes % Eosinophils % Basophils % Nucleated RBC % Sodium Potassium Chloride Carbon Dioxide Anion Gap BUN Creatinine Creat Clearance w eGFR POC Glucometer 142 153 185 Random Glucose Calcium Magnesium Total Bilirubin AST ALT Alkaline Phosphatase Creatine Kinase Troponin I Total Protein Albumin Lipase Vitamin B12 TSH Free T4 Urine Color Urine Appearance Urine pH Ur Specific [place] Urine Protein Urine Glucose (UA) Urine Ketones Urine Blood Urine Nitrite Urine Bilirubin Urine Urobilinogen Ur Leukocyte Esterase Urine WBC (Auto) Urine RBC (Auto) Urine Casts (Auto) U Pathogenic Cast Auto U Epithel Cells (Auto) Urine Bacteria (Auto) Stool Occult Blood RPR Titer 07/31/18 07/31/18 07/31/18 05:45 07:40 07:40 WBC RBC Hgb Hct MCV MCH MCHC RDW Plt Count MPV Absolute Neuts (auto) Neutrophils % Lymphocytes % Monocytes % Eosinophils % Basophils % Nucleated RBC % Sodium 146 H Potassium 3.8 Chloride 112 H Carbon Dioxide 30 Anion Gap 4 L BUN 5 L Creatinine 0.6 Creat Clearance w eGFR 94.56 POC Glucometer 183 Random Glucose 226 H Calcium 7.3 L Magnesium 1.6 L Total Bilirubin 0.8 AST 21 ALT 12 L Alkaline Phosphatase 72 Creatine Kinase Troponin I Total Protein 4.9 L Albumin 1.7 L Lipase Vitamin B12 951 TSH Free T4 Urine Color Urine Appearance Urine pH Ur Specific [place] Urine Protein Urine Glucose (UA) Urine Ketones Urine Blood Urine Nitrite Urine Bilirubin Urine Urobilinogen Ur Leukocyte Esterase Urine WBC (Auto) Urine RBC (Auto) Urine Casts (Auto) U Pathogenic Cast Auto U Epithel Cells (Auto) Urine Bacteria (Auto) Stool Occult Blood RPR Titer Nonreactive 07/31/18 07/31/18 07/31/18 07:40 12:00 15:21 WBC 8.0 RBC 4.16 Hgb 12.8 Hct 39.4 MCV 94.6 MCH 30.8 MCHC 32.5 RDW 18.5 H Plt Count 170 D MPV 9.1 Absolute Neuts (auto) 6.2 Neutrophils % 76.7 D Lymphocytes % 13.4 D Monocytes % 6.7 Eosinophils % 2.6 Basophils % 0.6 Nucleated RBC % 0 Sodium Potassium Chloride Carbon Dioxide Anion Gap BUN Creatinine Creat Clearance w eGFR POC Glucometer 160 214 Random Glucose Calcium Magnesium Total Bilirubin AST ALT Alkaline Phosphatase Creatine Kinase Troponin I Total Protein Albumin Lipase Vitamin B12 TSH Free T4 Urine Color Urine Appearance Urine pH Ur Specific [place] Urine Protein Urine Glucose (UA) Urine Ketones Urine Blood Urine Nitrite Urine Bilirubin Urine Urobilinogen Ur Leukocyte Esterase Urine WBC (Auto) Urine RBC (Auto) Urine Casts (Auto) U Pathogenic Cast Auto U Epithel Cells (Auto) Urine Bacteria (Auto) Stool Occult Blood RPR Titer 07/31/18 07/31/18 08/01/18 18:00 23:35 06:13 WBC RBC Hgb Hct MCV MCH MCHC RDW Plt Count MPV Absolute Neuts (auto) Neutrophils % Lymphocytes % Monocytes % Eosinophils % Basophils % Nucleated RBC % Sodium Potassium Chloride Carbon Dioxide Anion Gap BUN Creatinine Creat Clearance w eGFR POC Glucometer 263 298 224 Random Glucose Calcium Magnesium Total Bilirubin AST ALT Alkaline Phosphatase Creatine Kinase Troponin I Total Protein Albumin Lipase Vitamin B12 TSH Free T4 Urine Color Urine Appearance Urine pH Ur Specific [place] Urine Protein Urine Glucose (UA) Urine Ketones Urine Blood Urine Nitrite Urine Bilirubin Urine Urobilinogen Ur Leukocyte Esterase Urine WBC (Auto) Urine RBC (Auto) Urine Casts (Auto) U Pathogenic Cast Auto U Epithel Cells (Auto) Urine Bacteria (Auto) Stool Occult Blood RPR Titer 08/01/18 08/01/18 08/01/18 10:50 10:50 11:24 WBC 7.2 RBC 3.21 L Hgb 9.9 L Hct 30.4 L D MCV 94.7 MCH 30.9 MCHC 32.6 RDW 18.3 H Plt Count 128 L D MPV 8.6 Absolute Neuts (auto) Neutrophils % Lymphocytes % Monocytes % Eosinophils % Basophils % Nucleated RBC % Sodium Cancelled Potassium Cancelled Chloride Cancelled Carbon Dioxide Cancelled Anion Gap Cancelled BUN Cancelled Creatinine Cancelled Creat Clearance w eGFR Cancelled POC Glucometer 220 Random Glucose Cancelled Calcium Cancelled Magnesium Cancelled Total Bilirubin Cancelled AST Cancelled ALT Cancelled Alkaline Phosphatase Cancelled Creatine Kinase Troponin I Total Protein Cancelled Albumin Cancelled Lipase Vitamin B12 TSH Free T4 Urine Color Urine Appearance Urine pH Ur Specific [place] Urine Protein Urine Glucose (UA) Urine Ketones Urine Blood Urine Nitrite Urine Bilirubin Urine Urobilinogen Ur Leukocyte Esterase Urine WBC (Auto) Urine RBC (Auto) Urine Casts (Auto) U Pathogenic Cast Auto U Epithel Cells (Auto) Urine Bacteria (Auto) Stool Occult Blood RPR Titer 08/01/18 08/01/18 08/02/18 17:34 21:20 06:52 WBC RBC Hgb Hct MCV MCH MCHC RDW Plt Count MPV Absolute Neuts (auto) Neutrophils % Lymphocytes % Monocytes % Eosinophils % Basophils % Nucleated RBC % Sodium 146 H Potassium 4.3 Chloride 116 H Carbon Dioxide 28 Anion Gap 2 L BUN 9 Creatinine 0.7 Creat Clearance w eGFR 79.15 POC Glucometer 233 186 Random Glucose 252 H Calcium 8.0 L Magnesium Total Bilirubin 0.7 AST 18 ALT 11 L Alkaline Phosphatase 73 Creatine Kinase Troponin I Total Protein 5.2 L Albumin 1.7 L Lipase Vitamin B12 TSH Free T4 Urine Color Urine Appearance Urine pH Ur Specific [place] Urine Protein Urine Glucose (UA) Urine Ketones Urine Blood Urine Nitrite Urine Bilirubin Urine Urobilinogen Ur Leukocyte Esterase Urine WBC (Auto) Urine RBC (Auto) Urine Casts (Auto) U Pathogenic Cast Auto U Epithel Cells (Auto) Urine Bacteria (Auto) Stool Occult Blood RPR Titer 08/02/18 08/02/18 08/02/18 07:00 07:00 11:21 WBC 8.0 RBC 4.24 Hgb 13.1 Hct 40.0 D MCV 94.5 MCH 31.0 MCHC 32.8 RDW 18.8 H Plt Count 182 D MPV 8.7 Absolute Neuts (auto) Neutrophils % Lymphocytes % Monocytes % Eosinophils % Basophils % Nucleated RBC % Sodium 148 H Potassium 3.4 L Chloride 115 H Carbon Dioxide 26 Anion Gap 7 L BUN 8 Creatinine 0.6 Creat Clearance w eGFR 94.56 POC Glucometer 273 Random Glucose 207 H Calcium 7.8 L Magnesium Total Bilirubin AST ALT Alkaline Phosphatase Creatine Kinase Troponin I Total Protein Albumin Lipase Vitamin B12 TSH Free T4 Urine Color Urine Appearance Urine pH Ur Specific [place] Urine Protein Urine Glucose (UA) Urine Ketones Urine Blood Urine Nitrite Urine Bilirubin Urine Urobilinogen Ur Leukocyte Esterase Urine WBC (Auto) Urine RBC (Auto) Urine Casts (Auto) U Pathogenic Cast Auto U Epithel Cells (Auto) Urine Bacteria (Auto) Stool Occult Blood RPR Titer 08/02/18 08/02/18 08/03/18 17:22 21:18 05:52 WBC RBC Hgb Hct MCV MCH MCHC RDW Plt Count MPV Absolute Neuts (auto) Neutrophils % Lymphocytes % Monocytes % Eosinophils % Basophils % Nucleated RBC % Sodium Potassium Chloride Carbon Dioxide Anion Gap BUN Creatinine Creat Clearance w eGFR POC Glucometer 218 166 188 Random Glucose Calcium Magnesium Total Bilirubin AST ALT Alkaline Phosphatase Creatine Kinase Troponin I Total Protein Albumin Lipase Vitamin B12 TSH Free T4 Urine Color Urine Appearance Urine pH Ur Specific [place] Urine Protein Urine Glucose (UA) Urine Ketones Urine Blood Urine Nitrite Urine Bilirubin Urine Urobilinogen Ur Leukocyte Esterase Urine WBC (Auto) Urine RBC (Auto) Urine Casts (Auto) U Pathogenic Cast Auto U Epithel Cells (Auto) Urine Bacteria (Auto) Stool Occult Blood RPR Titer 08/03/18 08/03/18 08/03/18 06:25 06:25 11:48 WBC 7.6 RBC 4.24 Hgb 13.2 Hct 40.3 MCV 95.2 MCH 31.2 MCHC 32.7 RDW 18.7 H Plt Count 192 MPV 8.7 Absolute Neuts (auto) Neutrophils % Lymphocytes % Monocytes % Eosinophils % Basophils % Nucleated RBC % Sodium 147 H Potassium 3.5 Chloride 114 H Carbon Dioxide 27 Anion Gap 6 L BUN 9 Creatinine 0.6 Creat Clearance w eGFR 94.56 POC Glucometer 196 Random Glucose 211 H Calcium 7.8 L Magnesium Total Bilirubin 0.8 AST 15 ALT 10 L Alkaline Phosphatase 69 Creatine Kinase Troponin I < 0.02 Total Protein 5.2 L Albumin 1.7 L Lipase Vitamin B12 TSH Free T4 Urine Color Urine Appearance Urine pH Ur Specific [place] Urine Protein Urine Glucose (UA) Urine Ketones Urine Blood Urine Nitrite Urine Bilirubin Urine Urobilinogen Ur Leukocyte Esterase Urine WBC (Auto) Urine RBC (Auto) Urine Casts (Auto) U Pathogenic Cast Auto U Epithel Cells (Auto) Urine Bacteria (Auto) Stool Occult Blood RPR Titer 08/03/18 08/03/18 08/04/18 16:31 21:38 06:00 WBC 6.9 RBC 4.04 Hgb 12.6 Hct 38.2 MCV 94.4 MCH 31.1 MCHC 32.9 RDW 18.7 H Plt Count 180 MPV 8.8 Absolute Neuts (auto) Neutrophils % Lymphocytes % Monocytes % Eosinophils % Basophils % Nucleated RBC % Sodium Potassium Chloride Carbon Dioxide Anion Gap BUN Creatinine Creat Clearance w eGFR POC Glucometer 205 187 Random Glucose Calcium Magnesium Total Bilirubin AST ALT Alkaline Phosphatase Creatine Kinase Troponin I Total Protein Albumin Lipase Vitamin B12 TSH Free T4 Urine Color Urine Appearance Urine pH Ur Specific [place] Urine Protein Urine Glucose (UA) Urine Ketones Urine Blood Urine Nitrite Urine Bilirubin Urine Urobilinogen Ur Leukocyte Esterase Urine WBC (Auto) Urine RBC (Auto) Urine Casts (Auto) U Pathogenic Cast Auto U Epithel Cells (Auto) Urine Bacteria (Auto) Stool Occult Blood RPR Titer 08/04/18 08/04/18 08/04/18 06:00 06:06 10:16 WBC RBC Hgb Hct MCV MCH MCHC RDW Plt Count MPV Absolute Neuts (auto) Neutrophils % Lymphocytes % Monocytes % Eosinophils % Basophils % Nucleated RBC % Sodium 146 H Potassium 3.2 L Chloride 115 H Carbon Dioxide 26 Anion Gap 4 L BUN 13 Creatinine 0.6 Creat Clearance w eGFR 94.56 POC Glucometer 214 153 Random Glucose 235 H Calcium 7.7 L Magnesium Total Bilirubin 0.7 AST 15 ALT 9 L Alkaline Phosphatase 60 Creatine Kinase Troponin I Total Protein 4.6 L Albumin 1.6 L Lipase Vitamin B12 TSH Free T4 Urine Color Urine Appearance Urine pH Ur Specific [place] Urine Protein Urine Glucose (UA) Urine Ketones Urine Blood Urine Nitrite Urine Bilirubin Urine Urobilinogen Ur Leukocyte Esterase Urine WBC (Auto) Urine RBC (Auto) Urine Casts (Auto) U Pathogenic Cast Auto U Epithel Cells (Auto) Urine Bacteria (Auto) Stool Occult Blood RPR Titer 08/04/18 08/04/18 08/05/18 16:20 21:08 05:56 WBC RBC Hgb Hct MCV MCH MCHC RDW Plt Count MPV Absolute Neuts (auto) Neutrophils % Lymphocytes % Monocytes % Eosinophils % Basophils % Nucleated RBC % Sodium Potassium Chloride Carbon Dioxide Anion Gap BUN Creatinine Creat Clearance w eGFR POC Glucometer 208 250 134 Random Glucose Calcium Magnesium Total Bilirubin AST ALT Alkaline Phosphatase Creatine Kinase Troponin I Total Protein Albumin Lipase Vitamin B12 TSH Free T4 Urine Color Urine Appearance Urine pH Ur Specific [place] Urine Protein Urine Glucose (UA) Urine Ketones Urine Blood Urine Nitrite Urine Bilirubin Urine Urobilinogen Ur Leukocyte Esterase Urine WBC (Auto) Urine RBC (Auto) Urine Casts (Auto) U Pathogenic Cast Auto U Epithel Cells (Auto) Urine Bacteria (Auto) Stool Occult Blood RPR Titer 08/05/18 08/05/18 08/05/18 07:20 07:20 11:26 WBC 7.0 RBC 3.75 Hgb 11.8 Hct 35.8 MCV 95.4 MCH 31.6 MCHC 33.1 RDW 18.8 H Plt Count 146 MPV 8.8 Absolute Neuts (auto) 3.1 Neutrophils % 44.9 D Lymphocytes % 34.6 D Monocytes % 12.2 H D Eosinophils % 7.7 H D Basophils % 0.6 Nucleated RBC % 0 Sodium 147 H Potassium 3.2 L Chloride 114 H Carbon Dioxide 27 Anion Gap 6 L BUN 19 H Creatinine 0.9 Creat Clearance w eGFR 59.23 POC Glucometer 159 Random Glucose 155 H Calcium 7.4 L Magnesium Total Bilirubin 1.1 H AST 14 L ALT 7 L Alkaline Phosphatase 54 Creatine Kinase Troponin I Total Protein 4.3 L Albumin 1.6 L Lipase Vitamin B12 TSH Free T4 Urine Color Urine Appearance Urine pH Ur Specific [place] Urine Protein Urine Glucose (UA) Urine Ketones Urine Blood Urine Nitrite Urine Bilirubin Urine Urobilinogen Ur Leukocyte Esterase Urine WBC (Auto) Urine RBC (Auto) Urine Casts (Auto) U Pathogenic Cast Auto U Epithel Cells (Auto) Urine Bacteria (Auto) Stool Occult Blood RPR Titer 08/05/18 08/05/18 08/06/18 17:26 21:46 06:02 WBC RBC Hgb Hct MCV MCH MCHC RDW Plt Count MPV Absolute Neuts (auto) Neutrophils % Lymphocytes % Monocytes % Eosinophils % Basophils % Nucleated RBC % Sodium Potassium Chloride Carbon Dioxide Anion Gap BUN Creatinine Creat Clearance w eGFR POC Glucometer 244 224 148 Random Glucose Calcium Magnesium Total Bilirubin AST ALT Alkaline Phosphatase Creatine Kinase Troponin I Total Protein Albumin Lipase Vitamin B12 TSH Free T4 Urine Color Urine Appearance Urine pH Ur Specific [place] Urine Protein Urine Glucose (UA) Urine Ketones Urine Blood Urine Nitrite Urine Bilirubin Urine Urobilinogen Ur Leukocyte Esterase Urine WBC (Auto) Urine RBC (Auto) Urine Casts (Auto) U Pathogenic Cast Auto U Epithel Cells (Auto) Urine Bacteria (Auto) Stool Occult Blood RPR Titer 08/06/18 08/06/18 08/06/18 06:30 06:30 10:31 WBC 7.3 RBC 3.88 Hgb 12.0 Hct 37.0 MCV 95.3 MCH 31.0 MCHC 32.6 RDW 18.5 H Plt Count 163 MPV 8.8 Absolute Neuts (auto) 3.4 Neutrophils % 46.1 Lymphocytes % 35.5 Monocytes % 10.9 H Eosinophils % 6.9 H Basophils % 0.6 Nucleated RBC % 0 Sodium 143 Potassium 3.4 L Chloride 112 H Carbon Dioxide 26 Anion Gap 4 L BUN 19 H Creatinine 0.7 Creat Clearance w eGFR 79.15 POC Glucometer 173 Random Glucose 151 H Calcium 7.7 L Magnesium 1.9 Total Bilirubin 0.6 AST 15 ALT 11 L Alkaline Phosphatase 56 Creatine Kinase Troponin I Total Protein 4.5 L Albumin 1.6 L Lipase Vitamin B12 TSH Free T4 Urine Color Urine Appearance Urine pH Ur Specific [place] Urine Protein Urine Glucose (UA) Urine Ketones Urine Blood Urine Nitrite Urine Bilirubin Urine Urobilinogen Ur Leukocyte Esterase Urine WBC (Auto) Urine RBC (Auto) Urine Casts (Auto) U Pathogenic Cast Auto U Epithel Cells (Auto) Urine Bacteria (Auto) Stool Occult Blood RPR Titer 08/06/18 08/06/18 08/07/18 16:32 21:51 06:03 WBC RBC Hgb Hct MCV MCH MCHC RDW Plt Count MPV Absolute Neuts (auto) Neutrophils % Lymphocytes % Monocytes % Eosinophils % Basophils % Nucleated RBC % Sodium Potassium Chloride Carbon Dioxide Anion Gap BUN Creatinine Creat Clearance w eGFR POC Glucometer 202 214 151 Random Glucose Calcium Magnesium Total Bilirubin AST ALT Alkaline Phosphatase Creatine Kinase Troponin I Total Protein Albumin Lipase Vitamin B12 TSH Free T4 Urine Color Urine Appearance Urine pH Ur Specific [place] Urine Protein Urine Glucose (UA) Urine Ketones Urine Blood Urine Nitrite Urine Bilirubin Urine Urobilinogen Ur Leukocyte Esterase Urine WBC (Auto) Urine RBC (Auto) Urine Casts (Auto) U Pathogenic Cast Auto U Epithel Cells (Auto) Urine Bacteria (Auto) Stool Occult Blood RPR Titer 08/07/18 08/07/18 08/07/18 09:00 09:00 12:29 WBC 7.6 RBC 3.75 Hgb 11.7 Hct 35.8 MCV 95.3 MCH 31.1 MCHC 32.6 RDW 18.5 H Plt Count 179 MPV 9.0 Absolute Neuts (auto) Neutrophils % Lymphocytes % Monocytes % Eosinophils % Basophils % Nucleated RBC % Sodium 141 Potassium 3.9 Chloride 111 H Carbon Dioxide 26 Anion Gap 3 L BUN 14 Creatinine 0.5 L Creat Clearance w eGFR 116.71 POC Glucometer 169 Random Glucose 168 H Calcium 7.7 L Magnesium Total Bilirubin 0.5 AST 17 ALT 11 L Alkaline Phosphatase 53 Creatine Kinase Troponin I Total Protein 4.6 L Albumin 1.6 L Lipase Vitamin B12 TSH Free T4 Urine Color Urine Appearance Urine pH Ur Specific [place] Urine Protein Urine Glucose (UA) Urine Ketones Urine Blood Urine Nitrite Urine Bilirubin Urine Urobilinogen Ur Leukocyte Esterase Urine WBC (Auto) Urine RBC (Auto) Urine Casts (Auto) U Pathogenic Cast Auto U Epithel Cells (Auto) Urine Bacteria (Auto) Stool Occult Blood RPR Titer 08/07/18 08/07/18 08/07/18 15:30 17:57 21:04 WBC RBC Hgb Hct MCV MCH MCHC RDW Plt Count MPV Absolute Neuts (auto) Neutrophils % Lymphocytes % Monocytes % Eosinophils % Basophils % Nucleated RBC % Sodium Potassium Chloride Carbon Dioxide Anion Gap BUN Creatinine Creat Clearance w eGFR POC Glucometer 192 238 Random Glucose Calcium Magnesium Total Bilirubin AST ALT Alkaline Phosphatase Creatine Kinase Troponin I Total Protein Albumin Lipase Vitamin B12 TSH Free T4 Urine Color Urine Appearance Urine pH Ur Specific [place] Urine Protein Urine Glucose (UA) Urine Ketones Urine Blood Urine Nitrite Urine Bilirubin Urine Urobilinogen Ur Leukocyte Esterase Urine WBC (Auto) Urine RBC (Auto) Urine Casts (Auto) U Pathogenic Cast Auto U Epithel Cells (Auto) Urine Bacteria (Auto) Stool Occult Blood Negative RPR Titer 08/08/18 08/08/18 08/08/18 06:00 06:00 06:33 WBC 8.1 RBC 3.55 L Hgb 11.2 Hct 33.9 MCV 95.6 MCH 31.4 MCHC 32.9 RDW 18.2 H Plt Count 195 MPV 9.5 Absolute Neuts (auto) Neutrophils % Lymphocytes % Monocytes % Eosinophils % Basophils % Nucleated RBC % Sodium 141 Potassium 4.3 Chloride 111 H Carbon Dioxide 26 Anion Gap 3 L BUN 13 Creatinine 0.4 L Creat Clearance w eGFR 150.99 POC Glucometer 147 Random Glucose 151 H Calcium 7.5 L Magnesium Total Bilirubin 0.6 AST 19 ALT 12 L Alkaline Phosphatase 54 Creatine Kinase Troponin I Total Protein 4.4 L Albumin 1.6 L Lipase Vitamin B12 TSH Free T4 Urine Color Urine Appearance Urine pH Ur Specific [place] Urine Protein Urine Glucose (UA) Urine Ketones Urine Blood Urine Nitrite Urine Bilirubin Urine Urobilinogen Ur Leukocyte Esterase Urine WBC (Auto) Urine RBC (Auto) Urine Casts (Auto) U Pathogenic Cast Auto U Epithel Cells (Auto) Urine Bacteria (Auto) Stool Occult Blood RPR Titer 08/08/18 11:28 WBC RBC Hgb Hct MCV MCH MCHC RDW Plt Count MPV Absolute Neuts (auto) Neutrophils % Lymphocytes % Monocytes % Eosinophils % Basophils % Nucleated RBC % Sodium Potassium Chloride Carbon Dioxide Anion Gap BUN Creatinine Creat Clearance w eGFR POC Glucometer 172 Random Glucose Calcium Magnesium Total Bilirubin AST ALT Alkaline Phosphatase Creatine Kinase Troponin I Total Protein Albumin Lipase Vitamin B12 TSH Free T4 Urine Color Urine Appearance Urine pH Ur Specific [place] Urine Protein Urine Glucose (UA) Urine Ketones Urine Blood Urine Nitrite Urine Bilirubin Urine Urobilinogen Ur Leukocyte Esterase Urine WBC (Auto) Urine RBC (Auto) Urine Casts (Auto) U Pathogenic Cast Auto U Epithel Cells (Auto) Urine Bacteria (Auto) Stool Occult Blood RPR Titer Active Medications Generic Name Dose Route Start Last Admin Trade Name Freq PRN Reason Stop Dose Admin Albuterol Sulfate 1 amp 08/08/18 13:44 Ventolin 0.083% Nebulizer Soln - NEB Q6H PRN SHORT OF BREATH/WHEEZING Amino Acids 30 ml 08/01/18 17:30 08/08/18 08:57 Prosource No Carb Liquid Pkt PO 30 ml BID@0800,1730 LEXI Administration Enoxaparin Sodium 40 mg 07/27/18 11:45 08/08/18 09:01 Lovenox - SQ 40 mg DAILY LEXI Administration Potassium Chloride/Dextrose/Sod Cl 20 meq in 1,000 mls @ 42 mls/hr 07/30/18 08 :18 08/08/18 08:58 D5-1/2ns+20 Meq Kcl - IV Not Given ASDIR LEXI Ibuprofen 400 mg 08/04/18 19:59 08/05/18 11:40 Motrin - PO 400 mg Q6H PRN Administration FEVER Insulin Aspart 1 vial 07/28/18 11:00 08/08/18 11:29 Novolog Vial Sliding Scale - SQ Not Given ACHS [facility] Protocol Levothyroxine Sodium 75 mcg 07/29/18 07:00 08/08/18 06:43 Synthroid - PO 75 mcg DAILY@0700 LEXI Administration Metoclopramide HCl 10 mg 08/03/18 11:00 08/08/18 11:29 Reglan - PO 10 mg TIDAC LEXI Administration Metoprolol Tartrate 50 mg 07/28/18 16:00 08/08/18 09:00 Lopressor - PO 50 mg BID LEXI Administration Metronidazole 500 mg 08/03/18 00:00 08/08/18 14:45 Flagyl - PO 500 mg TID LEXI Administration Ondansetron HCl 4 mg 08/03/18 10:58 08/05/18 13:28 Zofran Odt - SL 4 mg Q8H PRN Administration NAUSEA AND/OR VOMITING Pancrelipase 1 cap 08/03/18 12:00 08/08/18 11:[address] 36,000 Units Capsule PO 1 cap TIDCM LEXI Administration Pantoprazole Sodium 40 mg 08/03/18 00:00 08/08/18 09:00 Protonix - PO 40 mg BID LEXI Administration Rifaximin 550 mg 08/03/18 14:00 08/08/18 14:45 Xifaxan - PO 550 mg TID LEXI Administration Sucralfate 1 gm 08/03/18 10:00 08/08/18 09:00 Carafate Oral Suspension - PO 1 gm BID LEXI Administration Microbiology 07/28/18 23:59 Stool Salmonella/Shigella Culture - Final 07/28/18 23:59 Stool Campylobacter Culture - Final NO GROWTH OF CAMPYLOBACTER SPECIES OBTAINED 07/28/18 23:59 Stool Yersinia Culture - Final NO GROWTH OF YERSINIA SPECIES OBTAINED 07/28/18 23:59 Stool Vibrio Culture - Final NO GROWTH OF VIBRIO SPECIES OBTAINED 07/28/18 23:59 Stool Escherichia coli 0157 Culture - Final NO GROWTH OF E COLI 0157 OBTAINED 07/28/18 23:59 Stool Gram Stain - Final 07/28/18 23:59 Stool Clostridioides difficile Antigen - Final 07/28/18 23:59 Stool Clostridioides difficile Toxin Assay - Final 07/26/18 14:56 Urine - Urine Clean Catch Urine Culture - Final Escherichia Coli Esbl Route [employer] Lactose Fermenting Neg Bacilli#2 Condition: Stable - Instructions Diet, Activity, Other Instructions: continue with medication as prescribed follow up with pmd in 1 week return to ER if develop fever, chest pain, respiratory distress, AMS Disposition: HOME - Home Medications Comprehensive Discharge Medication List: Ambulatory Orders Atorvastatin Ca [Lipitor] 20 mg PO HS tablet 02/27/18 Metoprolol Tartrate [Lopressor -] 50 mg PO BID tablet 04/03/18 Sennosides [Senna -] 2 tab PO HS tablet 04/03/18 Insulin (Levemir) [Levemir Vial] 15 units SQ AM units 04/14/18 Escitalopram Oxalate [Lexapro -] 5 mg PO DAILY tablet 04/21/18 Metoclopramide HCl [Reglan -] 10 mg PO TIDAC tablet 04/21/18 Potassium Chloride 40 meq PO DAILY #60 tablet.er 04/21/18 Insulin Aspart [Novolog] 100 unit SQ Q6H PRN 05/03/18 Omeprazole 40 mg PO DAILY 05/03/18 Amino Acids/Protein Hydrolys [Prosource No Carb Liquid Pkt] 30 ml PO BID@0800, 1730 #60 packet 08/08/18 Levothyroxine [Synthroid -] 75 mcg PO DAILY@0700 tablet 08/08/18 Lipase/Protease/Amylase [Dyllan Palomares 36,000 Units Capsule] 1 cap PO TIDCM #90 capsule. 08/08/18 Ondansetron [Zofran Odt -] 4 mg SL Q8H PRN #30 tab.rapdis 08/08/18 Rifaximin [Xifaxan -] 550 mg PO TID #90 tablet 08/08/18 Sucralfate Oral Suspension [Carafate Oral Suspension -] 1 gm PO BID #1 bottle metroNIDAZOLE [Flagyl -] 500 mg PO TID 7 Days #42 tablet 08/08/18
--- NOTE | 2018-08-09 17:19 | EKG ---
Test Reason : Blood Pressure : / mmHG Vent. Rate : 067 BPM Atrial Rate : 067 BPM P-R Int : 210 ms QRS Dur : 092 ms QT Int : 452 ms P-R-T Axes : 063 -08 021 degrees QTc Int : 477 ms SINUS RHYTHM WITH 1ST DEGREE A-V BLOCK NONSPECIFIC T WAVE ABNORMALITY PROLONGED QT ABNORMAL ECG WHEN COMPARED WITH ECG OF 03-AUG-2018 08:01, PREMATURE VENTRICULAR COMPLEXES ARE NO LONGER PRESENT PREMATURE SUPRAVENTRICULAR COMPLEXES ARE NO LONGER PRESENT Confirmed by KEMAL THOMAS MD ([id number]) on 08/09/2018 5:18:26 PM Referred By: CLAUDETTE CADENA Confirmed By:KEMAL THOMAS MD
== END 2018-08-08 16:44 | disposition home or self-care (01) | DRG 689 ==
LOC: JER 11:10 → JERBED 15:36 → J5S 21:23 → OBSVTOIN 07-27 05:56 → J8W 08-02 23:14
PROVIDERS: ADMIT Family Medicine; ATTEND Family Medicine
DX: N39.0 Urinary tract infection, site not specified (principal); G93.41 Metabolic encephalopathy; E87.0 Hyperosmolality and hypernatremia; I50.32 Chronic diastolic (congestive) heart failure; G83.4 Cauda equina syndrome; A04.72 Enterocolitis due to Clostridium difficile, not specified as recurrent; Z68.41 Body mass index [BMI] 40.0-44.9, adult; I25.10 Atherosclerotic heart disease of native coronary artery without angina pectoris; I25.2 Old myocardial infarction; I48.0 Paroxysmal atrial fibrillation; Z79.01 Long term (current) use of anticoagulants; E03.9 Hypothyroidism, unspecified; I11.0 Hypertensive heart disease with heart failure; Z79.4 Long term (current) use of insulin; E87.6 Hypokalemia; E83.42 Hypomagnesemia; E11.21 Type 2 diabetes mellitus with diabetic nephropathy; B96.20 Unspecified Escherichia coli [E. coli] as the cause of diseases classified elsewhere; E11.51 Type 2 diabetes mellitus with diabetic peripheral angiopathy without gangrene; E66.9 Obesity, unspecified; M48.061 Spinal stenosis, lumbar region without neurogenic claudication; E11.43 Type 2 diabetes mellitus with diabetic autonomic (poly)neuropathy; K31.84 Gastroparesis
CPT/HCPCS: 36415; 70450-TC; 71045-TC-FY; 74018-TC-FY; 74177-TC; 76700-TC; 80048; 80053; 81003; 82272; 82550; 82607; 82962; 83690; 83735; 84439; 84443; 84484; 85025; 85027; 86593; 87045; 87046; 87086; 87186; 87205; 87324; 87449; 93005; 93010; 93880-TC; 97161-GP; 99282-25; G0378; J0131; Q0162

== ENCOUNTER 2018-10-29 17:01 | Inpatient (IN) | payer OTHER ==
[~2018-10-29 17:01] MED LIST: MEROPENEM 1 GM in DEXTROSE 5%-WATER 100 ML IVPB SCH
[2018-10-29] MEDS ORDERED: RAPID SEQUENCE INTUBATION KIT NR ONE (17:24)
[2018-10-29] MEDS ORDERED: SODIUM CHLORIDE 0.9% 500 ML INFUS.BAG IV ONE ×2 (17:31→19:38)
[2018-10-29] MEDS ORDERED: NOREPINEPHRINE BITARTRATE 4 MG/4 ML ML IV ONE (17:49)
[2018-10-29] MEDS: NOREPINEPHRINE BITARTRATE 4,000 MCG in DEXTROSE 5%-WATER - 496 ML IV SCH (18:05)
[2018-10-29 19:16] LABS: BASO % 0.7 % (0-2.0); EOS % 0.1 % (0-4.5); HEMOGLOBIN 10.8 GM/dL (10.7-15.3); LYMPH % 21.9 % (8-40); MCH 34.7 pg (25.7-33.7); MCHC 33.8 g/dl (32.0-36.0); MEAN CELL VOLUME 102.6 fl (80-96); MONO % 6.4 % (3.8-10.2); NEUT % 70.9 % (42.8-82.8); PLATELET COUNT 233 K/MM3 (134-434); RBC 3.12 M/mm3 (3.60-5.2); RDW 22.1 % (11.6-15.6); WHITE BLOOD COUNT 8.7 K/mm3 (4.0-10.0)
--- NOTE | 2018-10-29 19:20 | PDOC ---
Documentation entered by Beena Packer SCRIBE, acting as scribe for Lili Faulkner MD. Lili Faulkner MD: This documentation has been prepared by the scribe, Beena Packer SCRIBE, under my direction and personally reviewed by me in its entirety. I confirm that the documentation accurately reflects all work, treatment, procedures, and medical decision making performed by me. Attending Attestation - Resident Resident Name: Luis AlfredoCasa - ED Attending Attestation I have performed the following: I have examined & evaluated the patient, The case was reviewed & discussed with the resident, I agree w/resident's findings & plan, Exceptions are as noted - HPI HPI: 10/29/18 17:46 The patient is an 88-year-old female, with a past medical history of HTN, DM, gastroparesis, CAD, afib (on eliquis), CHF (on Lasix), hypothyroidism, and hx of NSTEMI presents to the ED with AMS today. Daughter states that she noted the patient to be altered at 9:30AM and was not eating or drinking. She also noted a possible RT-sided facial droop at 10AM. Daughter states the patient has experienced similar symptoms in the past. EMS was called around 4PM today. Upon their arrival, the patient was noted to be hypotensive in the 60s and was intubated (7.5cm tube, 24cm at the lip). She also received 60mg of mady and 500mg of ketamine while in the field. HPI is limited due to patients clinical condition. Allergies: Vancomycin 10/29/18 21:00 - Physicial Exam PE: 10/29/18 17:47 Patient is unresponsive and intubated, obtunded, ET tube in place (7.5 tube, 24 at the lip), EOMI, PERRL, MMM, nl conjunctiva, anicteric; neck supple. lungs clear, RRR, abdomen soft nontender. Back nontender. LEIJA x4, no focal neuro deficits. No peripheral edema. normal color for ethnicity, WWP. - Critical Care Time Total Critical Care Time: 60 (acute respiratory failure) Critical Care Statement: The care of this patient involved high complexity decision making to prevent further life threatening deterioration of the patient 's condition and/or to evaluate & treat vital organ system(s) failure or risk of failure. - Medical Decision Making 10/29/18 19:20 See HPI for details. Prior notes reviewed, including admissions, discharges and consultations. Vital signs reviewed, hypotensive and hypoxic Vital Signs Temp Pulse Resp BP Pulse Ox 89 15 129/81 99 10/29/18 19:18 10/29/18 19:18 10/29/18 19:18 10/29/18 19:18 DDX hypoxic respiratory failure, electrolyte/metabolic derangements, ACS, arrhythmia, PE, dissection, pericardial effusion, tamponade, PTX, CHF, pneumonia laboratory results and imaging reviewed, basic labs and lytes wnl, CXR_ETT in place, above benita, RIJ in place, bilateral pulmonary infiltrative pattern/cardiomegaly Cardiac panel_pending EKG normal sinus rhythm at 75 bpm, no interval abnormalities, narrow QRS, ST and T wave segments and morphology normal. Nonspecific T wave abnormalities low voltage CT head neg for infarct/bleed. bedside pocus echo with no pericardial effusion, RV approx equal to LV, EF normal on visual estimation, bilateral lung sliding and no B lines. however with GFR <30, cannot get IV contrast safely, will need dopplers/v/q scan instead, in interim already on AC so less likely prior EF 60% and no right sided failure/effusion. ED course - RIJ placed by resident with my supervision. pressors with norepi for profound shock/hypotension IVF resuscitation. ICU cs for higher level of care, as intubated, shock, pressors and resuscitation. abx, allergy to vanc, so avoiding IJ confirmed, pressors through there, norepinephrine gtt admit to ICU for higher level of care, admitting to Dr Lam service. acute hypoxic respiratory failure/AMS and GEOFF 10/29/18 21:02 10/29/18 21:06 Heart Score/ECG Review #1 ECG reviewed & interpreted by me at: 17:15 General ECG Interpretation: Sinus Rhythm, Normal Rate, Normal Intervals Compared to previous ECG there are: No significant change 10/29/18 19:36 EKG normal sinus rhythm at 75 bpm, no interval abnormalities, narrow QRS, ST and T wave segments and morphology normal. Nonspecific T wave abnormalities low voltage
--- NOTE | 2018-10-29 19:23 | PDOC ---
History of Present Illness - History of Present Illness Initial Comments: 10/29/18 20:22 88 yo F with hx HTN, DM, gastroparesis, CAD, Afib (on eliquis), CHF (65% EF on 01/2018, on lasix), hypothyroidism, and hx of NSTEMI presents via EMS for AMS and respiratory compromise. At the scene, EMS found patient to be unresponsive with sats 67% and SBP 80s; patient was initially receiving bag mask ventilation and was then intubated at the scene with a 7.5Fr and 24 at the lip and left tibial IO. On arrival, patient BP was 60/40s and HR 90s. Family states that patient appeared altered last night, not consuming PO and not respondoing appropriately. This morning around 9am, the patients aid stated that she wasnt eating and again was not responding. Daughter visited patient around that time and said patient was moaning and not opening eyes. She waited for home RN to come assess patient at 10am but they did not arrive until 4pm and said patient needs to go to ED. Family denied any other complaints. No fever, chills, dysuria, change in BM, change in functionality. PMH: as noted ROS: as noted SH: long history of smoking <Casa Lobato - Last Filed: 10/29/18 20:22> <Lili Faulkner - Last Filed: 10/29/18 20:59> - General Chief Complaint: Respiratory Arrest Stated Complaint: RESPIRATORY FAILURE Time Seen by Provider: 10/29/18 17:20 Past History - Past Medical History Anemia: No Asthma: Yes Cancer: Yes (SKIN) Cardiac Disorders: Yes (MITRAL VALVE PROLAPSE,AFIB,CAD, NSTEMI) CVA: No COPD: Yes CHF: Yes Dementia: Yes (early onset) Diabetes: Yes GI Disorders: Yes (gastoparesis) Disorders: No HTN: Yes Hypercholesterolemia: Yes Liver Disease: Yes (FATTY LIVER) Seizures: No Thyroid Disease: Yes (hypo) - Surgical History Abdominal Surgery: Yes Cholecystectomy: Yes - Immunization History Immunization Up to Date: (Unknown) - Suicide/Smoking/Psychosocial Hx Smoking Status: Yes Smoking History: Unknown if ever smoked Have you smoked in the past 12 months: No Number of Cigarettes Smoked Daily: 0 If you are a former smoker, when did you quit?: 1985 Cigars Per Day: 0 Hx Alcohol Use: No Drug/Substance Use Hx: No Substance Use Type: None Hx Substance Use Treatment: Yes <Casa Lobato - Last Filed: 10/29/18 20:22> <Lili Faulkner - Last Filed: 10/29/18 20:59> - Past Medical History Allergies/Adverse Reactions: Allergies Allergy/AdvReac Type Severity Reaction Status Date / Time vancomycin AdvReac Itching Verified 07/26/18 12:49 Home Medications: Ambulatory Orders Atorvastatin Ca [Lipitor] 20 mg PO HS tablet 02/27/18 Metoprolol Tartrate [Lopressor -] 50 mg PO BID tablet 04/03/18 Sennosides [Senna -] 2 tab PO HS tablet 04/03/18 Insulin (Levemir) [Levemir Vial] 15 units SQ AM units 04/14/18 Escitalopram Oxalate [Lexapro -] 5 mg PO DAILY tablet 04/21/18 Metoclopramide HCl [Reglan -] 10 mg PO TIDAC tablet 04/21/18 Potassium Chloride 40 meq PO DAILY #60 tablet.er 04/21/18 Insulin Aspart [Novolog] 100 unit SQ Q6H PRN 05/03/18 Omeprazole 40 mg PO DAILY 05/03/18 Amino Acids/Protein Hydrolys [Prosource No Carb Liquid Pkt] 30 ml PO BID@0800, 1730 #60 packet 08/08/18 Levothyroxine [Synthroid -] 75 mcg PO DAILY@0700 tablet 08/08/18 Lipase/Protease/Amylase [Dyllan Palomares 36,000 Units Capsule] 1 cap PO TIDCM #90 capsule. 08/08/18 Ondansetron [Zofran Odt -] 4 mg SL Q8H PRN #30 tab.rapdis 08/08/18 Rifaximin [Xifaxan -] 550 mg PO TID #90 tablet 08/08/18 Sucralfate Oral Suspension [Carafate Oral Suspension -] 1 gm PO BID #1 bottle metroNIDAZOLE [Flagyl -] 500 mg PO TID 7 Days #42 tablet 08/08/18 Review of Systems - Review of Systems Able to Perform ROS?: No (patient intubated) <Casa Lobato - Last Filed: 10/29/18 20:22> *Physical Exam - Vital Signs Last Vital Signs Temp Pulse Resp BP Pulse Ox 89 15 129/81 99 10/29/18 19:18 10/29/18 19:18 10/29/18 19:18 10/29/18 19:18 - Physical Exam Comments: 10/29/18 20:37 GENERAL: intubated and sedated HEAD: No signs of trauma, normocephalic, atraumatic EYES: pupils equal in size 3-4mm and nonreactive to light ENT: 7.5Fr tube in place 22-23cm at the lip with thick secretions noted in the oropharynx on visual inspection with DL NECK: RIJ present at 16cm at the neck and sutured in place LUNGS: intubated with BL coarse breath sounds HEART: RRR, peripheral pulses intact, no LE edema ABDOMEN: Soft, nondistended NABS EXTREMITIES : left LE with heel ulcer and mild skin breakdown, nonnecrotic appearing, no surrounding erythema NEUROLOGICAL: sedated SKIN: Warm, Dry <Casa Lobato - Last Filed: 10/29/18 20:22> - Vital Signs Last Vital Signs Temp Pulse Resp BP Pulse Ox 89 15 129/81 99 10/29/18 19:18 10/29/18 20:15 10/29/18 19:18 10/29/18 19:18 <Lili Faulkner - Last Filed: 10/29/18 20:59> Procedures - Central Line Central Line Lumen: triple Central Line Position: internal jugular (R) Anesthesia: other (Patient sedated with ketamine in the field and fentanyl drip on ED) Complications: none Post Central Line Insertion: sutured, good blood return, position confirmed w/ CXR <Casa Lobato - Last Filed: 10/29/18 20:22> ED Treatment Course - LABORATORY CBC & Chemistry Diagram: 10/29/18 19:00 10/29/18 19:00 - ADDITIONAL ORDERS Additional order review: 10/29/18 19:00 RBC 3.12 L MCV 102.6 H MCHC 33.8 RDW 22.1 H MPV 8.0 D Neutrophils % 70.9 D Lymphocytes % 21.9 D Monocytes % 6.4 Eosinophils % 0.1 D Basophils % 0.7 - Medications Given in the ED: ED Medications Discontinued Medications Generic Name Dose Route Start Last Admin Trade Name Freq PRN Reason Stop Dose Admin Sodium Chloride 1,000 ml 10/29/18 17:31 10/29/18 17:47 Normal Saline - IV 10/29/18 17:32 1,000 ml ONCE ONE Administration <Casa Lobato - Last Filed: 10/29/18 20:22> - LABORATORY CBC & Chemistry Diagram: 10/29/18 19:00 10/29/18 19:00 - ADDITIONAL ORDERS Additional order review: Laboratory Results 10/29/18 10/29/18 10/29/18 19:00 19:00 19:00 PTT (Actin FS) 26.3 Sodium 147 H Potassium 3.5 Chloride 104 Carbon Dioxide 35 H Anion Gap 8 BUN 18.9 H Creatinine 1.9 H Est GFR (CKD-EPI)AfAm 27.00 Est GFR (CKD-EPI)NonAf 23.30 Random Glucose 187 H Lactic Acid 1.9 Calcium 7.2 L Total Bilirubin 0.8 AST 30 ALT 11 L Alkaline Phosphatase 70 Total Protein 5.2 L Albumin 1.5 L 10/29/18 19:00 RBC 3.12 L MCV 102.6 H MCHC 33.8 RDW 22.1 H MPV 8.0 D Neutrophils % 70.9 D Lymphocytes % 21.9 D Monocytes % 6.4 Eosinophils % 0.1 D Basophils % 0.7 - RADIOLOGY Radiology Studies Ordered: Category Date Time Status CHEST CTA [CT] Stat CT Scan 10/29/18 19:[address] WITHOUT CONTRAST [CT] Stat CT Scan 10/29/18 17:22 Completed CHEST X-RAY PORTABLE* [RAD] Stat Radiology 10/29/18 17:20 Taken - Medications Given in the ED: ED Medications Discontinued Medications Generic Name Dose Route Start Last Admin Trade Name Freq PRN Reason Stop Dose Admin Fentanyl 50 mcg 10/29/18 19:46 10/29/18 20:53 Sublimaze Injection - IVPUSH 10/29/18 19:47 50 mcg ONCE ONE Administration Sodium Chloride 1,000 ml 10/29/18 17:31 10/29/18 17:47 Normal Saline - IV 10/29/18 17:32 1,000 ml ONCE ONE Administration Sodium Chloride 1,000 ml 10/29/18 19:38 10/29/18 20:53 Normal Saline - IV 10/29/18 19:39 1,000 ml ONCE ONE Administration <Lili Faulkner - Last Filed: 10/29/18 20:59> Medical Decision Making - Medical Decision Making 10/29/18 20:44 88 yo F with hx HTN, DM, gastroparesis, CAD, Afib (on eliquis), CHF (65% EF on 01/2018, on lasix), hypothyroidism, and hx of NSTEMI presents via EMS for AMS and respiratory compromise, ETT and IO in place IVF bolus BP 50s-70s; start levophed drip RIJ inserted and confirmed with CXR; ETT also confirmed full workup including labs and CT head roland inserted 10/29/18 20:48 CT head with no acute intracranial bleed endorsed to ICU and admitted under Dr Lam <Casa Lobato - Last Filed: 10/29/18 20:22> *DC/Admit/Observation/Transfer - Discharge Dispostion Decision to Admit order: Yes <Casa Lobato - Last Filed: 10/29/18 20:22> <Lili Faulkner - Last Filed: 10/29/18 20:59> Diagnosis at time of Disposition: Altered mental state Qualifiers: Altered mental status type: unspecified Qualified Code(s): R41.82 - Altered mental status, unspecified Respiratory failure Qualifiers: Chronicity: acute Respiratory failure complication: hypoxia Qualified Code(s): J96.01 - Acute respiratory failure with hypoxia - Discharge Dispostion Condition at time of disposition: Critical
[2018-10-29 19:34] LABS: ALBUMIN 1.5 g/dl (3.4-5.0); BILIRUBIN,TOTAL 0.8 mg/dL (0.2-1); BLOOD UREA NITROGEN 18.9 mg/dL (7-18); CALCIUM 7.2 mg/dL (8.5-10.1); CREATININE 1.9 mg/dL (0.55-1.3); POTASSIUM 3.5 mmol/L (3.5-5.1); TOT PROT 5.2 g/dl (6.4-8.2)
--- NOTE | 2018-10-29 20:19 | CONSULT ---
Consultation: CONSULT SERVICE: ICU Resident HISTORY OF PRESENT ILLNESS: 88yo F with PMHx of HTN, T2DM, CAD with prior NSTEMI, pAF (on Eliquis), HFpEF who presents to the ED today in respiratory failure. HPI unobtainable through patient and history obtained through daughter and EMR chart. Pt was noted around this morning (~9:30) to have a questionable facial droop with altered mental status. At baseline per family pt is bedbound, however speaks logically in full sentences and otherwise is normal in mentation. Pt remained altered at this time and paramedics were called. Upon arrival of EMS pt was noted to hypotension and hypoxic. ETT was placed in the field and IO was placed so levophed could be started. Upon arrival to the ED the patient's ETT was exchanged with good oxygenation and R IJ was placed. Pt was given 2LNS at this time and CT Head and CXR was performed. Pt's family notes that patient with feedings has been coughing excessively when giving food and thin liquids. Family denies any complaints of chills and fevers. Of note, pt received duplex ultrasounds by home health aide for r/o DVT in upper and lower extremities which was reportedly REVIEW OF SYSTEMS: As per HPI PHYSICAL EXAMINATION Vital Signs 10/29/18 10/29/18 10/29/18 17:16 17:17 17:35 Pulse Rate 84 Pulse Rate [ 75 74 Apical] Respiratory 14 13 14 Rate Blood Pressure 83/62 L Blood Pressure 55/28 L 60/31 L [Left Arm] O2 Sat by Pulse 98 86 L 100 Oximetry (%) 10/29/18 10/29/18 10/29/18 17:50 18:00 18:05 Pulse Rate 72 Pulse Rate [ 78 82 Apical] Respiratory 14 14 Rate Blood Pressure 63/36 L Blood Pressure 75/50 L 78/50 L [Left Arm] O2 Sat by Pulse 100 100 Oximetry (%) 10/29/18 10/29/18 10/29/18 18:12 18:15 19:00 Pulse Rate Pulse Rate [ 81 82 Apical] Respiratory 14 14 14 Rate Blood Pressure Blood Pressure 90/63 105/62 [Left Arm] O2 Sat by Pulse 100 100 Oximetry (%) 10/29/18 19:18 Pulse Rate Pulse Rate [ 89 Apical] Respiratory 15 Rate Blood Pressure Blood Pressure 129/81 [Left Arm] O2 Sat by Pulse 99 Oximetry (%) GENERAL: Intubated not sedated, not responding to commands or painful stimuli HEENT: NC/AT, pupils 3mm with sluggish reactivity b/l, sclera anicteric, dolls eyes neg., gag reflex +, dry cracked tongue noted NECK: No JVD LUNGS: Coarse rales bilaterally throughout. No wheezes. AC mode of vent at 100% FiO2/TV450/PEEP 5 HEART: Tachycardic with regular rhythm, normal S1 and S2 without murmur ABDOMEN: Soft, obese, nondistended, hypoactive BS, no guarding. tenderness could not be assessed. No suprapubic firmness/prominence. EXTREMITIES: Upper extremities with erythematous skin changes, cool, 2+ pulses with cap refill ~3sec Lower extremities cool, 1+ DP pulses b/l, no pitting lower extremity edema NEUROLOGICAL: Could not fully assess due to clinical picture SKIN: Warm, dry, b/l upper extremity changes, no lacerations, sacrum not observed Laboratory Results 10/29/18 10/29/18 10/29/18 19:00 19:00 19:00 WBC 8.7 RBC 3.12 L Hgb 10.8 Hct 32.0 L MCV 102.6 H MCH 34.7 H D MCHC 33.8 RDW 22.1 H Plt Count 233 MPV 8.0 D Absolute Neuts (auto) 6.2 Neutrophils % 70.9 D Lymphocytes % 21.9 D Monocytes % 6.4 Eosinophils % 0.1 D Basophils % 0.7 Nucleated RBC % 0 PTT (Actin FS) 26.3 Sodium 147 H Potassium 3.5 Chloride 104 Carbon Dioxide 35 H Anion Gap 8 BUN 18.9 H Creatinine 1.9 H Est GFR (CKD-EPI)AfAm 27.00 Est GFR (CKD-EPI)NonAf 23.30 Random Glucose 187 H Lactic Acid Calcium 7.2 L Total Bilirubin 0.8 AST 30 ALT 11 L Alkaline Phosphatase 70 Total Protein 5.2 L Albumin 1.5 L 10/29/18 19:00 WBC RBC Hgb Hct MCV MCH MCHC RDW Plt Count MPV Absolute Neuts (auto) Neutrophils % Lymphocytes % Monocytes % Eosinophils % Basophils % Nucleated RBC % PTT (Actin FS) Sodium Potassium Chloride Carbon Dioxide Anion Gap BUN Creatinine Est GFR (CKD-EPI)AfAm Est GFR (CKD-EPI)NonAf Random Glucose Lactic Acid 1.9 Calcium Total Bilirubin AST ALT Alkaline Phosphatase Total Protein Albumin Active Medications Generic Name Dose Route Start Last Admin Trade Name Nenita PRN Reason Stop Dose Admin Norepinephrine Bitartrate 4, 500 mls @ 37.5 mls/hr 10/29/18 17:45 10/29/18 18 :05 000 mcg/ Dextrose IV 5 mcg/min TITR LEXI 37.5 mls/hr Administration Protocol 5 MCG/MIN ASSESSMENT/PLAN: Distributive shock Diastolic heart failure Acute renal insufficiency likely cardiorenal R/o CVA Macrocytic anemia Neuro: No return of mental status at this point off sedation CT Head without any hemorrhagic processes with noted chronic ischemic areas and microvascular changes Will order MRI for further r/o of CVA at this point, however cannot obtain until patient is off of ventilator Respiratory: ETT noted to be close to benita; will withdraw 1-2cm and repeat CXR in AM CXR with noted platelike atelectasis and RLL layering effusion; ? cephalization of vessels at this point Optimize AC vent settings due to possible capillary leak (increase PEEP to 7 and wean FiO2 as possible monitoring for Ppl) Reports of aspiration with feedings and notable rhonchi --Will cover with Meropenem 1gm q12h (dose adjusted for CrCl 36) --F/u blood cultures, urine cultures, sputum cultures ABG ordered stat Cardiac: Likely distributive shock vs. cardiogenic? Continue Levophed and titrate to MAP goal of 65 Possibility of adding ionotrope throughout night if necessary CVP guidance for fluid management Cardiac profile ordered; will f/u Renal: Possible cardiorenal vs. pre-renal Sending Urine studies and maintain roland for accurate I&Os Avoid nephrotoxic agents and dose adjust for CrCl 36 at this time Monitor BUN/Cr Endocrine: Past history of DM on Levemir Can cover with minimal sliding scale at this time and goal glucose in critically ill patients 140-150 Previous history of hypothyroidism; will obtain TSH, however may not be clinically accurate given critical prognosis ID: Cannot r/o aspiration PNA as above after pt became unresponsive Meropenem as above; previous history of ESBL in urine ID consult No leukocytosis at this time, however lactate is trending up and will continue to trend Monitor fever curve FEN: Fluids: CVP mgmt to guide fluids Electrolyte abnormalities: Minor hypernatremia possible intravascular free water depletion Nutrition: NPO and if mental status regains can consult speech and swallow PPX: DVT - Heparin SQ TID GI - Protonix qdaily GOC: Full code at this point per family's wishes Dispo: ICU monitoring Case discussed with family and ER physicians DO Lee Stoner PGY-3 Visit type - Emergency Visit Emergency Visit: Yes ED Registration Date: 10/29/18 Care time: The patient presented to the Emergency Department on the above date and was hospitalized for further evaluation of their emergent condition. - New Patient This patient is new to me today: Yes Date on this admission: 10/29/18 - Critical Care Critical Care patient: Yes Total Critical Care Time (in minutes): 45 Critical Care Statement: The care of this patient involved high complexity decision making to prevent further life threatening deterioration of the patient 's condition and/or to evaluate & treat vital organ system(s) failure or risk of failure. ATTENDING PHYSICIAN STATEMENT I saw and evaluated the patient. I reviewed the resident's note and discussed the case with the resident. I agree with the resident's findings and plan as documented. SUBJECTIVE: OBJECTIVE: ASSESSMENT AND PLAN:
[2018-10-29 20:28] LABS: ANISOCYTOSIS 2+; MACROCYTOSIS 2+; PLATELET ESTIMATE ADEQUATE
[2018-10-29] MEDS ORDERED: LACTATED RINGERS SOLUTION 1,000 ML/1,000 ML INFUS.BAG IV SCH (21:00)
[2018-10-29] MEDS: MEROPENEM 1 GM in DEXTROSE 5%-WATER 100 ML IVPB SCH (22:21)
[2018-10-29 22:25] LABS: ARTERIAL BLD GAS O2 SATURATION 95.4 % (95-98); ARTERIAL BLOOD GAS BASE EXCESS 7.2 meq/l (-2-2); ARTERIAL BLOOD GAS PCO2 44.1 mmHg (35-45); ARTERIAL BLOOD GAS pH 7.47 (7.35-7.45); CARBOXYHEMOGLOBIN 0.9 % (0-2)
[2018-10-29 22:27] LABS: ALLENS TEST POSITIVE
--- NOTE | 2018-10-29 22:55 | HP ---
Admitting History and Physical - Primary Care Physician PCP: Wei Lam - Admission Chief Complaint: weakness History of Present Illness: 88 year old female with multiple comorbidities presents after being found at home lethargic and less responsive. As per family, Monday was the last time she was seen at her baseline. Today her daughter came over and she noticed patient was lethargic not talking, and moaning a few times as if she was in pain and she asked the nurse to come evaluate her. Nurse called 911. At baseline per family patient is bedbound, however she is alert and oriented. Upon arrival of EMS patient was noted to be hypotensive, tachypenic and hypoxic. She was intubated and started on levophed. Family states she hasn't been eating and when they tried today she was coughing. No further history can be obtained at this time. 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, Vertigo Cardiovascular: Yes: AFIB, CAD, HTN, Hyperlipdemia Pulmonary: Yes: COPD Gastrointestinal: Yes: Constipation, Hiatal Hernia, Other Heme/Onc: Yes: Cancer (thyroid) Endocrine: Yes: Diabetes Mellitus (insulin-dependent for years -> uncontrolled) , Hypothyroidism Dermatology: Yes: Cellulitis (in past, with chronic and intermittent edema) - Past Surgical History Past Surgical History: Yes: Cholecystectomy, Stent (coronary stents), Upper Endoscopy - Smoking History Smoking history: Unknown if ever smoked Have you smoked in the past 12 months: No Aproximately how many cigarettes per day: 0 If you are a former smoker, when did you quit?: 1984 - Alcohol/Substance Use Hx Alcohol Use: No History of Substance Use: reports: None - Social History Usual Living Arrangement: Yes: Alone ADL: Family Assistance History of Recent Travel: No Home Medications - Allergies Allergies/Adverse Reactions: Allergies Allergy/AdvReac Type Severity Reaction Status Date / Time vancomycin AdvReac Itching Verified 07/26/18 12:49 - Home Medications Home Medications: Ambulatory Orders Atorvastatin Ca [Lipitor] 20 mg PO HS tablet 02/27/18 Metoprolol Tartrate [Lopressor -] 50 mg PO BID tablet 04/03/18 Sennosides [Senna -] 2 tab PO HS tablet 04/03/18 Insulin (Levemir) [Levemir Vial] 15 units SQ AM units 04/14/18 Escitalopram Oxalate [Lexapro -] 5 mg PO DAILY tablet 04/21/18 Metoclopramide HCl [Reglan -] 10 mg PO TIDAC tablet 04/21/18 Potassium Chloride 40 meq PO DAILY #60 tablet.er 04/21/18 Insulin Aspart [Novolog] 100 unit SQ Q6H PRN 05/03/18 Omeprazole 40 mg PO DAILY 05/03/18 Amino Acids/Protein Hydrolys [Prosource No Carb Liquid Pkt] 30 ml PO BID@0800, 1730 #60 packet 08/08/18 Levothyroxine [Synthroid -] 75 mcg PO DAILY@0700 tablet 08/08/18 Lipase/Protease/Amylase [Dyllan Palomares 36,000 Units Capsule] 1 cap PO TIDCM #90 capsule. 08/08/18 Ondansetron [Zofran Odt -] 4 mg SL Q8H PRN #30 tab.rapdis 08/08/18 Rifaximin [Xifaxan -] 550 mg PO TID #90 tablet 08/08/18 Sucralfate Oral Suspension [Carafate Oral Suspension -] 1 gm PO BID #1 bottle metroNIDAZOLE [Flagyl -] 500 mg PO TID 7 Days #42 tablet 08/08/18 Family Disease History - Family Disease History Family History: Unable to Obtain Family Disease History: Diabetes: Daughter Review of Systems Unable to obtain ROS, reason: patient is intubated Physical Examination Vital Signs: Vital Signs Temperature Pulse Rate 108 H 10/29/18 22:40 Respiratory Rate 16 10/29/18 22:40 Blood Pressure 120/92 10/29/18 22:40 O2 Sat by Pulse Oximetry (%) 98 10/29/18 22:40 Constitutional: Yes: Other (intubated and sedated) HENT: Yes: Atraumatic, Normocephalic Neck: Yes: Supple, Trachea Midline, Other (Right IJ) Cardiovascular: Yes: Tachycardia Respiratory: Yes: Intubated, Mechanically Ventilated, Rhonchi (at bases) Gastrointestinal: Yes: Normal Bowel Sounds, Soft, Abdomen, Obese Extremities: Yes: Other (left heel ulcer, eschar, no drainage, no erythema) Edema: No Peripheral Pulses WNL: Yes Neurological: Yes: Other (sedated) Labs: CBC, BMP 10/29/18 19:00 10/29/18 19:00 Imaging - Results Chest X-ray: Report Reviewed Cat Scan: Report Reviewed Problem List - Problems (1) Altered mental status Code(s): R41.82 - ALTERED MENTAL STATUS, UNSPECIFIED Qualifiers: Altered mental status type: unspecified Qualified Code(s): R41.82 - Altered mental status, unspecified (2) Respiratory failure Code(s): J96.90 - RESPIRATORY FAILURE, UNSP, UNSP W HYPOXIA OR HYPERCAPNIA Qualifiers: Chronicity: acute Respiratory failure complication: hypoxia Qualified Code(s): J96.01 - Acute respiratory failure with hypoxia (3) Acute diastolic heart failure Code(s): I50.31 - ACUTE DIASTOLIC (CONGESTIVE) HEART FAILURE (4) Acute metabolic encephalopathy Code(s): G93.41 - METABOLIC ENCEPHALOPATHY (5) Acute renal failure Code(s): N17.9 - ACUTE KIDNEY FAILURE, UNSPECIFIED Qualifiers: Acute renal failure type: unspecified Qualified Code(s): N17.9 - Acute kidney failure, unspecified (6) Afib Code(s): I48.91 - UNSPECIFIED ATRIAL FIBRILLATION Qualifiers: Atrial fibrillation type: paroxysmal Qualified Code(s): I48.0 - Paroxysmal atrial fibrillation (7) Morbid obesity with BMI of 40.0-44.9, adult Code(s): E66.01 - MORBID (SEVERE) OBESITY DUE TO EXCESS CALORIES; Z68.41 - BODY MASS INDEX (BMI) 40.0-44.9, ADULT (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 Code(s): E11.21 - TYPE 2 DIABETES MELLITUS WITH DIABETIC NEPHROPATHY Qualifiers: Diabetes mellitus correction insulin use: with correction use Qualified Code( s): E11.21 - Type 2 diabetes mellitus with diabetic nephropathy; Z79.4 - intermission coordinator (current) use of insulin Assessment/Plan Assessment: Hypoxic Respiratory Failure Hypotensive shock AMS Acute Diastolic CHF GEOFF Afib IDDM Hypothyroidism Plan: Admit to ICU CT head no acute pathology Intubated and sedated On pressors and ventilator, management per ICU, right IJ in place Was given 2 liters fluid, overloaded would hold off on further fluids CXR poor quality, possible asp pna/fluid overload Pancultured in ED Started on meropenem ED echo with possible RV dilation? CTA ordered to r/o PE but given renal function hold off check LE dopplers troponin positive, likely demand ischemia secondary to shock, check second set, EKG NSR, no evidence of ischemia low voltage Monitor renal function, avoid nephrotoxic agents Family states she is not on AC for afib, unsure why, deny any prior bleeding episodes Resume insulin regimen, ISS for coverage NPO ID eval Left chronic heel ulcer? unsure of outpatient follow-up? family states has been there for months will get further info in AM Full code all questions answered
--- NOTE | 2018-10-30 00:57 | PN ---
Progress Note (short form) - Note Progress Note: Pt's CVP 0-1 with good wave-form. Will give 100cc/hr of LR with maximum of 1L. Bedside echocardiogram to be done to evaluate for LV wall dysfunction vs. cardiac dilation. Rpt BMP, Mg, LA given pt experiencing non-sustained SVTs, however likely Levophed is contributing to this.
[2018-10-30 01:16] LABS: INR 1.27 (0.83-1.09)
[2018-10-30 03:42] LABS: BLOOD UREA NITROGEN 20.9 mg/dL (7-18); CREATININE 1.9 mg/dL (0.55-1.3); POTASSIUM 3.4 mmol/L (3.5-5.1)
[2018-10-30 03:44] LABS: CALCIUM 6.6 mg/dL (8.5-10.1)
[2018-10-30] MEDS ORDERED: POTASSIUM CHLORIDE 20 MEQ PREMIX IVPB 100 ML IVPB ONE ×3 (03:55→09:00)
[2018-10-30] MEDS ORDERED: MAGNESIUM SULF 50% (8.12 MEQ/2 ML-1 GM VIAL) IVPB ONE ×2 (03:55→08:15)
[2018-10-30] MEDS: METOCLOPRAMIDE HCL 10 MG TABLET (FP) PO SCH ×3 (06:19→16:09)
[2018-10-30] MEDS: LEVOTHYROXINE NA 75 MCG TABLET (FP) PO SCH (06:19)
[2018-10-30] MEDS: HEPARIN NA (PORCINE) 5,000 UNITS/ML 1ML VIAL SQ SCH ×3 (06:33→22:16)
[2018-10-30] MEDS: LACTATED RINGERS SOLUTION 1,000 ML/1,000 ML INFUS.BAG IV SCH ×2 (06:34→23:29)
[2018-10-30] MEDS: INSULIN SLIDING SCALE (NOVOLOG) 1 VIAL SQ SCH ×4 (06:45→23:29)
[2018-10-30] MEDS: INSULIN (LEVEMIR) 100 UNITS/ML UNITS SQ SCH (06:45)
[2018-10-30 07:55] LABS: BLOOD UREA NITROGEN 20.4 mg/dL (7-18); MAGNESIUM 1.8 mg/dL (1.8-2.4); PHOSPHOROUS 3.5 mg/dL (2.5-4.9); POTASSIUM 3.3 mmol/L (3.5-5.1)
[2018-10-30] MEDS ORDERED: NOREPINEPHRINE BITARTRATE 4 MG/4 ML ML IV ONE (07:55)
[2018-10-30 08:15] LABS: CALCIUM 6.6 mg/dL (8.5-10.1)
[2018-10-30] MEDS: LIPASE/PROTEASE/AMYLASE 36,000 UNIT CAPSULE PO SCH ×3 (08:30→18:11)
[2018-10-30] MEDS: AMINO ACIDS/PROTEIN HYDROLYS 30 ML LIQUID.PKT PO SCH ×2 (08:31→18:11)
[2018-10-30] MEDS ORDERED: FUROSEMIDE 40 MG/4 ML INJECTABLE VIAL IVPUSH ONE (08:59)
[2018-10-30] MEDS ORDERED: DOBUTAMINE HCL 250,000 MCG in SODIUM CHLORIDE 230 ML IV SCH (09:00)
[2018-10-30] MEDS ORDERED: MEROPENEM 1 GM VIAL (RESTRICTED TO ID) IVPB ONE (09:16)
[2018-10-30] MEDS ORDERED: DEXTROSE 5%-WATER 100 ML IVPB ONE (09:16)
[2018-10-30] MEDS ORDERED: DOBUTAMINE 250 MG/D5W - 250,000 MCG/250 ML INFUS.BAG ONE (09:17)
[2018-10-30] MEDS: MUPIROCIN 2% TOPICAL OINTMENT FOR DECOLONIZATION NS SCH ×2 (09:27→22:16)
[2018-10-30] MEDS: MEROPENEM 1 GM in DEXTROSE 5%-WATER 100 ML IVPB SCH (09:28)
[2018-10-30] MEDS: PANTOPRAZOLE 40 MG TABLET (FP) PO SCH (09:28)
--- NOTE | 2018-10-30 09:29 | EKG ---
Test Reason : Blood Pressure : / mmHG Vent. Rate : 075 BPM Atrial Rate : 075 BPM P-R Int : 248 ms QRS Dur : 122 ms QT Int : 414 ms P-R-T Axes : 053 036 230 degrees QTc Int : 462 ms SINUS RHYTHM WITH 1ST DEGREE A-V BLOCK RIGHT BUNDLE BRANCH BLOCK T WAVE ABNORMALITY, CONSIDER LATERAL ISCHEMIA ABNORMAL ECG WHEN COMPARED WITH ECG OF 08-AUG-2018 15:50, RIGHT BUNDLE BRANCH BLOCK IS NOW PRESENT Confirmed by Alexis Bhardwaj MD ([id number]) on 10/30/2018 9:29:05 AM Referred By: Confirmed By:Alexis Bhardwaj MD
--- NOTE | 2018-10-30 09:44 | ECHO ---
Name: JAIDA TRACY Exam:Adult Echocardiogram Study Date: 10/30/2018 07:52 AM Age: 88 yrs Reason For Study: LV Function Height: 59 in Weight: 240 lb BSA: 2.0 m2 MMode/2D Measurements & Calculations IVSd: 1.1 cm Ao root diam: 2.8 cm LVIDd: 3.2 cm LA dimension: 3.9 cm LVIDs: 2.3 cm LVPWd: 1.1 cm EDV(Teich): 40.9 ml LVOT diam: 2.0 cm ESV(Teich): 17.3 ml LAV (MOD-bp): 67.6 ml Doppler Measurements & Calculations MV E max alexy: 109.0 cm/sec Ao V2 max: 188.7 cm/sec MV dec time: 0.13 sec Ao max P.2 mmHg MARILYN(V,D): 2.1 cm2 LV V1 max P.0 mmHg TR max alexy: 176.5 cm/sec LV V1 max: 132.4 cm/sec TR max P.5 mmHg PA V2 max: 95.0 cm/sec Med Peak E' Alexy: 9.1 cm/sec PA max P.6 mmHg Med E/e': 11.9 Lat Peak E' Alexy: 2.7 cm/sec Lat E/e': 40.1 Procedure A complete two-dimensional transthoracic echocardiogram was performed (2D, M-mode, Doppler and color flow Doppler). Left Ventricle The left ventricular size, thickness and function are normal. Ejection Fraction = 60%. The transmitra l spectral Doppler flow pattern is suggestive of impaired LV relaxation. The left ventricular wall mendel on is normal. Right Ventricle The right ventricle is mild to moderately dilated. The right ventricular systolic function is mildly reduced. Atria Normal left and right atrial size and function. Mitral Valve There is moderate to severe mitral valve thickening. There is trace to mild mitral regurgitation. Tricuspid Valve The tricuspid valve is not well visualized. There is Trace to mild tricuspid regurgitation. There was insufficient TR detected to calculate RV systolic pressure. Aortic Valve There is moderate aortic sclerosis.;. Pulmonic Valve The pulmonic valve is not well visualized. Great Vessels The aortic root is normal size. Pericardium/Pleura There is no pericardial effusion. There is no pleural effusion. Interpretation Summary The left ventricular size, thickness and function are normal Ejection Fraction = 60%. The right ventricle is mild to moderately dilated. The right ventricular systolic function is mildly reduced. Normal left and right atrial size and function. There is moderate to severe mitral valve thickening. There is trace to mild mitral regurgitation. There is Trace to mild tricuspid regurgitation. There was insufficient TR detected to calculate RV systolic pressure. There is moderate aortic sclerosis.; MD Alexis Bhardwaj 10/30/2018 09:43 AM
[2018-10-30] MEDS ORDERED: PATIENT'S OWN MEDICATION (NON-FORMULARY) (Omeprazole 40 MG) PO SCH ×2 (10:00)
[2018-10-30] MEDS ORDERED: SUCRALFATE 1 GM/10 ML UNIT DOSE CUPS PO SCH (10:00)
[2018-10-30] MEDS ORDERED: METOPROLOL TARTRATE 50 MG TABLET (FP) PO SCH (10:00)
[2018-10-30] MEDS ORDERED: ADENOSINE 6 MG/2 ML VIAL IVPUSH ONE (10:10)
[2018-10-30] MEDS ORDERED: dilTIAZem HCL 125 MG/25 ML - 25 ML VIAL ONE (10:28)
[2018-10-30] MEDS ORDERED: LORazepam 2 MG/ML SDV VIAL ONE (10:29)
[2018-10-30] MEDS ORDERED: dilTIAZem HCL 25 MG/5 ML - 5 ML VIAL ONE (10:33)
[2018-10-30] MEDS ORDERED: VASOPRESSIN 20 UNITS/ML VIAL IV ONE ×2 (10:36→19:04)
[2018-10-30] MEDS ORDERED: DILTIAZEM INJECTION 125 MG in SODIUM CHLORIDE 100 ML IVPB SCH (10:45)
[2018-10-30] MEDS ORDERED: VASOPRESSIN 50 UNITS in SODIUM CHLORIDE 97.5 ML IVPB SCH (10:45)
[2018-10-30] MEDS: ESCITALOPRAM OXALATE 10 MG TABLET (FP) PO SCH (11:57)
--- NOTE | 2018-10-30 11:57 | PN ---
Teaching Attending Note Name of Resident: Enio Chavez ATTENDING PHYSICIAN STATEMENT I saw and evaluated the patient. I reviewed the resident's note and discussed the case with the resident. I agree with the resident's findings and plan as documented. SUBJECTIVE: Patient seen and examined in the ICU. Intubated. No sedation but minimally responsive. Multiple episodes of SVT requiring multiple doses of Adenosine, DCCV, and ultimately CCB. NE infusing @ 30 mcq for hemodynamic support. Vasopressin added. AC Mode of vent, 50% FiO2. Intake & Output 10/27/18 10/28/18 10/29/18 10/30/18 23:59 23:59 23:59 23:59 Weight 240 lb Last Vital Signs Temp Pulse Resp BP Pulse Ox 97.9 F 170 H 14 123/71 100 10/30/18 06:30 10/30/18 09:45 10/30/18 07:24 10/30/18 09:45 10/30/18 07:22 Active Medications Amino Acids (Prosource No Carb Liquid Pkt) 30 ml PO BID@0800,1730 [facility] Last Admin: 10/30/18 08:31 Dose: Not Given Atorvastatin Calcium (Lipitor -) 20 mg PO HS [facility] Chlorhexidine Gluconate (Hibiclens For Decolonization -) 1 applic TP HS [facility] Escitalopram Oxalate (Lexapro -) 5 mg PO DAILY [facility] Heparin Sodium (Porcine) (Heparin -) 5,000 unit SQ TID [facility] Last Admin: 10/30/18 06:33 Dose: 5,000 unit Hydrocortisone Sodium Succinate (Solu-Cortef -) 50 mg IVPUSH Q6H-IV [facility] Norepinephrine Bitartrate 4, (000 mcg/ Dextrose) 500 mls @ 37.5 mls/hr IV TITR [facility]; Protocol Last Titration: 10/30/18 07:00 Dose: 4 mcg/min, 30 mls/hr Meropenem 1 gm/ Dextrose 100 mls @ 200 mls/hr IVPB Q12H [facility] Lactated Ringer's (Lactated Ringers Solution) 1,000 ml in 1,000 mls @ 100 mls/ hr IV ASDIR [facility] Last Admin: 10/30/18 06:34 Dose: 100 mls/hr Diltiazem HCl 125 mg/ Sodium (Chloride) 125 mls @ 5 mls/hr IVPB TITR [facility]; Protocol Vasopressin 50 units/ Sodium (Chloride) 100 mls @ 4 mls/hr IVPB ASDIR [facility]; Protocol Insulin Aspart (Novolog Vial Sliding Scale -) 1 vial SQ Q6HPO [facility]; Protocol Last Admin: 10/30/18 06:45 Dose: 4 units Insulin Detemir (Levemir Vial) 15 units SQ AM [facility] Last Admin: 10/30/18 06:45 Dose: 15 units Levothyroxine Sodium (Synthroid -) 75 mcg PO DAILY@0700 [facility] Last Admin: 10/30/18 06:19 Dose: Not Given Metoclopramide HCl (Reglan -) 10 mg PO TIDAC [facility] Last Admin: 10/30/18 06:19 Dose: Not Given Mupirocin (Bactroban Ointment (For Decolonization) -) 1 applic NS BID [facility] Stop: 11/04/18 09:59 Last Admin: 10/30/18 09:27 Dose: 1 applic Pancrelipase (Creon Dr 36,000 Units Capsule) 1 cap PO TIDCM [facility] Last Admin: 10/30/18 08:30 Dose: Not Given Pantoprazole Sodium (Protonix -) 40 mg PO DAILY [facility] Last Admin: 10/30/18 09:28 Dose: Not Given Senna (Senna -) 2 tab PO HS [facility] GENERAL: Intubated, not sedated but not responding to commands or painful stimuli HEENT: NC/AT, pupils 3mm minimally reactive, sclera anicteric NECK: No JVD LUNGS: Bilateral coarse BS. No wheezes. HEART: S1S2, tachycardia: SVT alternating with AFib ABDOMEN: Soft, obese, nondistended, hypoactive BS. No suprapubic firmness/ prominence. EXTREMITIES: Upper extremities with erythematous skin changes, cool, 2+ pulses with cap refill ~3sec Lower extremities cool, 1+ DP pulses b/l, no pitting lower extremity edema NEUROLOGICAL: Minimally responsive off sedation SKIN: Warm, dry, b/l upper extremity changes, no lacerations, sacrum not observed Laboratory Results - last 24 hr 10/29/18 10/29/18 10/29/18 19:00 19:00 19:00 WBC 8.7 RBC 3.12 L Hgb 10.8 Hct 32.0 L MCV 102.6 H MCH 34.7 H D MCHC 33.8 RDW 22.1 H Plt Count 233 MPV 8.0 D Absolute Neuts (auto) 6.2 Neutrophils % 70.9 D Lymphocytes % 21.9 D Monocytes % 6.4 Eosinophils % 0.1 D Basophils % 0.7 Nucleated RBC % 0 Hypochromia 1+ Platelet Estimate Adequate Anisocytosis 2+ Macrocytosis 2+ PT with INR INR PTT (Actin FS) 26.3 Anticoagulation Therapy Puncture Site ABG pH ABG pCO2 at Pt Temp ABG pO2 at Pt Temp ABG HCO3 ABG O2 Sat (Measured) ABG O2 Content ABG Base Excess Davi Test Carboxyhemoglobin Methemoglobin O2 Delivery Device Oxygen Flow Rate Vent Mode Vent Rate Mechanical Rate Pressure Support Vent Sodium 147 H Potassium 3.5 Chloride 104 Carbon Dioxide 35 H Anion Gap 8 BUN 18.9 H Creatinine 1.9 H Est GFR (CKD-EPI)AfAm 27.00 Est GFR (CKD-EPI)NonAf 23.30 POC Glucometer Random Glucose 187 H Lactic Acid Calcium 7.2 L Phosphorus Magnesium Total Bilirubin 0.8 AST 30 ALT 11 L Alkaline Phosphatase 70 Troponin I B-Natriuretic Peptide Total Protein 5.2 L Albumin 1.5 L Blood Type Antibody Screen 10/29/18 10/29/18 10/29/18 19:00 19:00 20:14 WBC RBC Hgb Hct MCV MCH MCHC RDW Plt Count MPV Absolute Neuts (auto) Neutrophils % Lymphocytes % Monocytes % Eosinophils % Basophils % Nucleated RBC % Hypochromia Platelet Estimate Anisocytosis Macrocytosis PT with INR 15.00 H INR 1.27 H PTT (Actin FS) Anticoagulation Therapy Puncture Site ABG pH ABG pCO2 at Pt Temp ABG pO2 at Pt Temp ABG HCO3 ABG O2 Sat (Measured) ABG O2 Content ABG Base Excess Davi Test Carboxyhemoglobin Methemoglobin O2 Delivery Device Oxygen Flow Rate Vent Mode Vent Rate Mechanical Rate Pressure Support Vent Sodium Potassium Chloride Carbon Dioxide Anion Gap BUN Creatinine Est GFR (CKD-EPI)AfAm Est GFR (CKD-EPI)NonAf POC Glucometer Random Glucose Lactic Acid 1.9 2.0 Calcium Phosphorus Magnesium Total Bilirubin AST ALT Alkaline Phosphatase Troponin I B-Natriuretic Peptide Total Protein Albumin Blood Type Antibody Screen 10/29/18 10/29/18 10/29/18 20:14 20:14 22:20 WBC RBC Hgb Hct MCV MCH MCHC RDW Plt Count MPV Absolute Neuts (auto) Neutrophils % Lymphocytes % Monocytes % Eosinophils % Basophils % Nucleated RBC % Hypochromia Platelet Estimate Anisocytosis Macrocytosis PT with INR INR PTT (Actin FS) Anticoagulation Therapy No Result Required. Puncture Site Right radial ABG pH 7.47 H ABG pCO2 at Pt Temp 44.1 ABG pO2 at Pt Temp 82.0 ABG HCO3 31.4 H ABG O2 Sat (Measured) 95.4 ABG O2 Content 14.7 L ABG Base Excess 7.2 H Davi Test Positive Carboxyhemoglobin 0.9 Methemoglobin 0.7 O2 Delivery Device No Result Required. Oxygen Flow Rate Yes Vent Mode No Result Required. Vent Rate No Result Required. Mechanical Rate No Result Required. Pressure Support Vent No Result Required. Sodium Potassium Chloride Carbon Dioxide Anion Gap BUN Creatinine Est GFR (CKD-EPI)AfAm Est GFR (CKD-EPI)NonAf POC Glucometer Random Glucose Lactic Acid Calcium Phosphorus Magnesium Total Bilirubin AST ALT Alkaline Phosphatase Troponin I B-Natriuretic Peptide 68201.6 H Total Protein Albumin Blood Type A POSITIVE Antibody Screen Negative 10/29/18 10/30/18 10/30/18 22:30 02:30 02:30 WBC RBC Hgb Hct MCV MCH MCHC RDW Plt Count MPV Absolute Neuts (auto) Neutrophils % Lymphocytes % Monocytes % Eosinophils % Basophils % Nucleated RBC % Hypochromia Platelet Estimate Anisocytosis Macrocytosis PT with INR INR PTT (Actin FS) Anticoagulation Therapy Puncture Site ABG pH ABG pCO2 at Pt Temp ABG pO2 at Pt Temp ABG HCO3 ABG O2 Sat (Measured) ABG O2 Content ABG Base Excess Davi Test Carboxyhemoglobin Methemoglobin O2 Delivery Device Oxygen Flow Rate Vent Mode Vent Rate Mechanical Rate Pressure Support Vent Sodium 145 Potassium 3.4 L Chloride 103 Carbon Dioxide 34 H Anion Gap 9 BUN 20.9 H Creatinine 1.9 H Est GFR (CKD-EPI)AfAm 27.00 Est GFR (CKD-EPI)NonAf 23.30 POC Glucometer Random Glucose 203 H Lactic Acid Calcium 6.6 L* Phosphorus Magnesium 1.0 L Total Bilirubin AST ALT Alkaline Phosphatase Troponin I 1.03 H* 1.21 H* B-Natriuretic Peptide Total Protein Albumin Blood Type Antibody Screen 10/30/18 10/30/18 10/30/18 02:30 04:03 06:10 WBC RBC Hgb Hct MCV MCH MCHC RDW Plt Count MPV Absolute Neuts (auto) Neutrophils % Lymphocytes % Monocytes % Eosinophils % Basophils % Nucleated RBC % Hypochromia Platelet Estimate Anisocytosis Macrocytosis PT with INR INR PTT (Actin FS) Anticoagulation Therapy Puncture Site ABG pH ABG pCO2 at Pt Temp ABG pO2 at Pt Temp ABG HCO3 ABG O2 Sat (Measured) ABG O2 Content ABG Base Excess Davi Test Carboxyhemoglobin Methemoglobin O2 Delivery Device Oxygen Flow Rate Vent Mode Vent Rate Mechanical Rate Pressure Support Vent Sodium 147 H Potassium 3.3 L Chloride 104 Carbon Dioxide 33 H Anion Gap 10 BUN 20.4 H Creatinine 2.0 H Est GFR (CKD-EPI)AfAm 25.38 Est GFR (CKD-EPI)NonAf 21.89 POC Glucometer 181 Random Glucose 199 H Lactic Acid 1.9 Calcium 6.6 L* Phosphorus 3.5 Magnesium 1.8 Total Bilirubin AST ALT Alkaline Phosphatase Troponin I B-Natriuretic Peptide Total Protein Albumin Blood Type Antibody Screen 10/30/18 06:39 WBC RBC Hgb Hct MCV MCH MCHC RDW Plt Count MPV Absolute Neuts (auto) Neutrophils % Lymphocytes % Monocytes % Eosinophils % Basophils % Nucleated RBC % Hypochromia Platelet Estimate Anisocytosis Macrocytosis PT with INR INR PTT (Actin FS) Anticoagulation Therapy Puncture Site ABG pH ABG pCO2 at Pt Temp ABG pO2 at Pt Temp ABG HCO3 ABG O2 Sat (Measured) ABG O2 Content ABG Base Excess Davi Test Carboxyhemoglobin Methemoglobin O2 Delivery Device Oxygen Flow Rate Vent Mode Vent Rate Mechanical Rate Pressure Support Vent Sodium Potassium Chloride Carbon Dioxide Anion Gap BUN Creatinine Est GFR (CKD-EPI)AfAm Est GFR (CKD-EPI)NonAf POC Glucometer 207 Random Glucose Lactic Acid Calcium Phosphorus Magnesium Total Bilirubin AST ALT Alkaline Phosphatase Troponin I B-Natriuretic Peptide Total Protein Albumin Blood Type Antibody Screen ASSESSMENT/PLAN: Acute Respiratory Failure Suspected Septic Shock: source (?) Aspiration PNA (?) Component of Cardiogenic Shock Diastolic heart failure Acute renal insufficiency R/O CVA Macrocytic anemia AC Mode of vent Cardizem drip for rate control Pressors to maintain MAP > 65 Close monitoring of labs ARDS vent strategy Cardiology evaluation ID evaluation Follow cultures Monitor renal function Monitor off Inotropes Follow CVP for IVF guidance Requires ICU monitoring Dr Vaughan Critical care time spent in reviewing chart, evaluating patient and formulating plan - 36 minutes.
[2018-10-30] MEDS ORDERED: ACETAMINOPHEN 1000 MG/100 ML VIAL (NON FORMULARY) IVPB ONE (12:00)
[2018-10-30] MEDS: HYDROCORTISONE SOD SUCCINATE 100 MG/2 ML VIAL IVPUSH SCH ×3 (12:04→22:16)
[2018-10-30 12:16] LABS: HEMATOCRIT 34.1 % (32.4-45.2); HEMOGLOBIN 11.3 GM/dL (10.7-15.3); MCH 34.2 pg (25.7-33.7); MCHC 33.1 g/dl (32.0-36.0); MEAN CELL VOLUME 103.2 fl (80-96); MEAN PLT VOLUME 7.9 fl (7.5-11.1); PLATELET COUNT 254 K/MM3 (134-434); RDW 23.2 % (11.6-15.6)
[2018-10-30] MEDS ORDERED: PT OWN MED DRAWER 7, Y5N ONE (12:46)
--- NOTE | 2018-10-30 14:17 | PN ---
Progress Note (short form) - Note Progress Note: ID CONSULT DICTATED CARDIOGENIC V. SEPTIC SHOCK RESP FAILURE R/O CVA R/O ASP PNEUMONIA AZOTEMIA HX + ESBL AWAIT SEPSIS W/U EMPIRIC MEROPENEM HEMODYNAMIC/ VENTILATOR SUPORT CRITICAL CARE TIME 35MIN
[2018-10-30 14:34] LABS: EPI CELLS 3.8 /HPF (0-5/HPF); HYALINE CASTS 86 /lpf (0-8); URINE APPEARANCE TURBID; URINE BILIRUBIN 2+ (NEGATIVE); URINE COLOR DK YELLOW; URINE GLUCOSE (UA) TRACE (NEGATIVE); URINE KETONE TRACE (NEGATIVE); URINE LEUK ESTERASE 2+ (NEGATIVE); URINE NITRITE NEGATIVE (NEGATIVE); URINE PROTEIN TRACE (NEGATIVE); URINE WBC 217 /hpf (0-5)
--- NOTE | 2018-10-30 15:18 | CONS ---
DATE OF CONSULTATION: DATE OF DICTATION: 10/30/2018 The patient is an 88-year-old female who is evaluated for septic shock. History is obtained from the chart, as she cannot give a history. She is presently intubated in the intensive care unit. According to the notes, she was admitted to the hospital on October 29, 2018, after the family reported her to be less responsive than normal. Early in the morning, she was noted to be more lethargic with poor oral intake. She was also noted to have a right facial droop. EMS was called. On arrival, she was found to be hypotensive with a systolic blood pressure in the 60s. She required intubation. She was transferred to the emergency room, where she was subsequently admitted to the intensive care unit. Chest x-ray shows bilateral congestion. According to the notes, she had been feeling well prior to admission. No reports of recent febrile illness or respiratory tract infection. No recent complaints of abdominal pain, vomiting, diarrhea, or dysuria. Past medical history positive for hypertension, diabetes mellitus, coronary artery disease, myocardial infarction, gastroparesis, atrial fibrillation, congestive heart failure, hypothyroidism. Allergies to VANCOMYCIN (pruritus). Medications include Tylenol, Lipitor, diltiazem, Lasix, insulin, meropenem, Protonix, vasopressin. SOCIAL HISTORY: She resides at home with family members. Nonsmoker, nondrinker. Most recent hospital admission was in August of this year. SYSTEMS REVIEW: Neurologic: As per HPI. Cardiac: Negative chest pain or palpitations. Respiratory: Positive for respiratory failure, possible pneumonia. Gastrointestinal: Negative vomiting or diarrhea. Genitourinary: Positive for ESBL urinary tract infection in July of this year. LABORATORY DATA: White count 14.0, hematocrit 34.1, platelets 254. BUN 20, creatinine 2.0. Chest x-ray shows bilateral congestion. PHYSICAL EXAMINATION: General: The patient is intubated. Breathing is nonlabored. Vital Signs: Temperature 100.8. Blood pressure 91/56. Pulse 87, regular. Respirations 20 per minute. ENT: Sclerae anicteric. Patient is orally intubated. Heart Sounds: S1, S2. Lungs: Air entry bilaterally. Abdomen: Obese, soft, nontender. Extremities: Positive for edema. There is a necrotic ulceration present on the heel, which is dry, no surrounding erythema, no purulent drainage. IMPRESSION: 1. Cardiogenic versus septic shock. 2. Respiratory failure. 3. Possible aspiration pneumonia. 4. Rule out cerebrovascular accident. 5. Azotemia. 6. History of positive extended-spectrum beta lactamase in the urine. Await sepsis workup. Empiric meropenem 500 mg IV piggyback every 8 hours. Continue hemodynamic and ventilatory support. Prognosis is guarded. ICU monitoring. Critical care time spent: 35 minutes. Thank you for the kind referral. LINO CHIN M.D. [id number]
[2018-10-30 16:01] LABS: URINE BACTERIA 9.3 /hpf (NEGATIVE); URINE RBC 5.2 /hpf (0-4); YEAST NONE SEEN (NEGATIVE)
--- NOTE | 2018-10-30 16:39 | PN ---
Physical Exam: SUBJECTIVE: Patient seen and examined at the bedside. Remains intubated and sedated. This morning was tachycardic to the 180s and hemodynamically unstable with low MAPs in the 40s on levophed. SVT noted on the monitor. Carotid massage , adenosine 6mg, and adenosine 12mg given with no effect. Synchronized cardioversion started at 50J and increased gradually to 120J with no effect. Given diltiazem push and converted to sinus rhythm with low BP. Levophed and vasopressin on for BP control. OBJECTIVE: Vital Signs Period Temp Pulse Resp BP Sys/Gu Pulse Ox Last 24 Hr 97.7 F-100.8 F 71-212 12-22 55-129/28-92 86-100 GENERAL: Intubated and sedated HEAD: Normal with no signs of trauma. EYES: PERRL, extraocular movements intact, sclera anicteric, conjunctiva clear. NECK: Trachea midline, full range of motion, supple. LUNGS: Mechanical breath sounds, coarse breath sounds heard throughout. HEART: Tachycardic, S1,S2, no murmurs appreciated. ABDOMEN: Soft, nontender, nondistended, normoactive bowel sounds, no guarding, no rebound, no masses. EXTREMITIES: 1+ pulses, warm, well-perfused, no edema. NEUROLOGICAL: Unable to assess. PSYCH: Unable to assess. SKIN: Warm, dry, normal turgor. L heel ulcer noted, chronic Laboratory Results - last 24 hr 10/29/18 10/29/18 10/29/18 19:00 19:00 19:00 WBC 8.7 RBC 3.12 L Hgb 10.8 Hct 32.0 L MCV 102.6 H MCH 34.7 H D MCHC 33.8 RDW 22.1 H Plt Count 233 MPV 8.0 D Absolute Neuts (auto) 6.2 Neutrophils % 70.9 D Lymphocytes % 21.9 D Monocytes % 6.4 Eosinophils % 0.1 D Basophils % 0.7 Nucleated RBC % 0 Hypochromia 1+ Platelet Estimate Adequate Anisocytosis 2+ Macrocytosis 2+ PT with INR INR PTT (Actin FS) 26.3 Anticoagulation Therapy Puncture Site ABG pH ABG pCO2 at Pt Temp ABG pO2 at Pt Temp ABG HCO3 ABG O2 Sat (Measured) ABG O2 Content ABG Base Excess Davi Test Carboxyhemoglobin Methemoglobin O2 Delivery Device Oxygen Flow Rate Vent Mode Vent Rate Mechanical Rate Pressure Support Vent Sodium 147 H Potassium 3.5 Chloride 104 Carbon Dioxide 35 H Anion Gap 8 BUN 18.9 H Creatinine 1.9 H Est GFR (CKD-EPI)AfAm 27.00 Est GFR (CKD-EPI)NonAf 23.30 POC Glucometer Random Glucose 187 H Lactic Acid Calcium 7.2 L Phosphorus Magnesium Total Bilirubin 0.8 AST 30 ALT 11 L Alkaline Phosphatase 70 Troponin I B-Natriuretic Peptide Total Protein 5.2 L Albumin 1.5 L Urine Color Urine Appearance Urine pH Ur Specific [place] Urine Protein Urine Glucose (UA) Urine Ketones Urine Blood Urine Nitrite Urine Bilirubin Urine Urobilinogen Ur Leukocyte Esterase Urine WBC (Auto) Urine RBC (Auto) Urine Casts (Auto) U Pathogenic Cast Auto U Epithel Cells (Auto) Urine Bacteria (Auto) Urine Yeast (Auto) Ur Random Creatinine Ur Random Sodium Ur Random Potassium Ur Random Chloride Blood Type Antibody Screen 10/29/18 10/29/18 10/29/18 19:00 19:00 20:14 WBC RBC Hgb Hct MCV MCH MCHC RDW Plt Count MPV Absolute Neuts (auto) Neutrophils % Lymphocytes % Monocytes % Eosinophils % Basophils % Nucleated RBC % Hypochromia Platelet Estimate Anisocytosis Macrocytosis PT with INR 15.00 H INR 1.27 H PTT (Actin FS) Anticoagulation Therapy Puncture Site ABG pH ABG pCO2 at Pt Temp ABG pO2 at Pt Temp ABG HCO3 ABG O2 Sat (Measured) ABG O2 Content ABG Base Excess Davi Test Carboxyhemoglobin Methemoglobin O2 Delivery Device Oxygen Flow Rate Vent Mode Vent Rate Mechanical Rate Pressure Support Vent Sodium Potassium Chloride Carbon Dioxide Anion Gap BUN Creatinine Est GFR (CKD-EPI)AfAm Est GFR (CKD-EPI)NonAf POC Glucometer Random Glucose Lactic Acid 1.9 2.0 Calcium Phosphorus Magnesium Total Bilirubin AST ALT Alkaline Phosphatase Troponin I B-Natriuretic Peptide Total Protein Albumin Urine Color Urine Appearance Urine pH Ur Specific [place] Urine Protein Urine Glucose (UA) Urine Ketones Urine Blood Urine Nitrite Urine Bilirubin Urine Urobilinogen Ur Leukocyte Esterase Urine WBC (Auto) Urine RBC (Auto) Urine Casts (Auto) U Pathogenic Cast Auto U Epithel Cells (Auto) Urine Bacteria (Auto) Urine Yeast (Auto) Ur Random Creatinine Ur Random Sodium Ur Random Potassium Ur Random Chloride Blood Type Antibody Screen 10/29/18 10/29/18 10/29/18 20:14 20:14 22:20 WBC RBC Hgb Hct MCV MCH MCHC RDW Plt Count MPV Absolute Neuts (auto) Neutrophils % Lymphocytes % Monocytes % Eosinophils % Basophils % Nucleated RBC % Hypochromia Platelet Estimate Anisocytosis Macrocytosis PT with INR INR PTT (Actin FS) Anticoagulation Therapy No Result Required. Puncture Site Right radial ABG pH 7.47 H ABG pCO2 at Pt Temp 44.1 ABG pO2 at Pt Temp 82.0 ABG HCO3 31.4 H ABG O2 Sat (Measured) 95.4 ABG O2 Content 14.7 L ABG Base Excess 7.2 H Davi Test Positive Carboxyhemoglobin 0.9 Methemoglobin 0.7 O2 Delivery Device No Result Required. Oxygen Flow Rate Yes Vent Mode No Result Required. Vent Rate No Result Required. Mechanical Rate No Result Required. Pressure Support Vent No Result Required. Sodium Potassium Chloride Carbon Dioxide Anion Gap BUN Creatinine Est GFR (CKD-EPI)AfAm Est GFR (CKD-EPI)NonAf POC Glucometer Random Glucose Lactic Acid Calcium Phosphorus Magnesium Total Bilirubin AST ALT Alkaline Phosphatase Troponin I B-Natriuretic Peptide 15654.6 H Total Protein Albumin Urine Color Urine Appearance Urine pH Ur Specific [place] Urine Protein Urine Glucose (UA) Urine Ketones Urine Blood Urine Nitrite Urine Bilirubin Urine Urobilinogen Ur Leukocyte Esterase Urine WBC (Auto) Urine RBC (Auto) Urine Casts (Auto) U Pathogenic Cast Auto U Epithel Cells (Auto) Urine Bacteria (Auto) Urine Yeast (Auto) Ur Random Creatinine Ur Random Sodium Ur Random Potassium Ur Random Chloride Blood Type A POSITIVE Antibody Screen Negative 10/29/18 10/30/18 10/30/18 22:30 02:30 02:30 WBC RBC Hgb Hct MCV MCH MCHC RDW Plt Count MPV Absolute Neuts (auto) Neutrophils % Lymphocytes % Monocytes % Eosinophils % Basophils % Nucleated RBC % Hypochromia Platelet Estimate Anisocytosis Macrocytosis PT with INR INR PTT (Actin FS) Anticoagulation Therapy Puncture Site ABG pH ABG pCO2 at Pt Temp ABG pO2 at Pt Temp ABG HCO3 ABG O2 Sat (Measured) ABG O2 Content ABG Base Excess Davi Test Carboxyhemoglobin Methemoglobin O2 Delivery Device Oxygen Flow Rate Vent Mode Vent Rate Mechanical Rate Pressure Support Vent Sodium 145 Potassium 3.4 L Chloride 103 Carbon Dioxide 34 H Anion Gap 9 BUN 20.9 H Creatinine 1.9 H Est GFR (CKD-EPI)AfAm 27.00 Est GFR (CKD-EPI)NonAf 23.30 POC Glucometer Random Glucose 203 H Lactic Acid Calcium 6.6 L* Phosphorus Magnesium 1.0 L Total Bilirubin AST ALT Alkaline Phosphatase Troponin I 1.03 H* 1.21 H* B-Natriuretic Peptide Total Protein Albumin Urine Color Urine Appearance Urine pH Ur Specific [place] Urine Protein Urine Glucose (UA) Urine Ketones Urine Blood Urine Nitrite Urine Bilirubin Urine Urobilinogen Ur Leukocyte Esterase Urine WBC (Auto) Urine RBC (Auto) Urine Casts (Auto) U Pathogenic Cast Auto U Epithel Cells (Auto) Urine Bacteria (Auto) Urine Yeast (Auto) Ur Random Creatinine Ur Random Sodium Ur Random Potassium Ur Random Chloride Blood Type Antibody Screen 10/30/18 10/30/18 10/30/18 02:30 04:03 06:10 WBC RBC Hgb Hct MCV MCH MCHC RDW Plt Count MPV Absolute Neuts (auto) Neutrophils % Lymphocytes % Monocytes % Eosinophils % Basophils % Nucleated RBC % Hypochromia Platelet Estimate Anisocytosis Macrocytosis PT with INR INR PTT (Actin FS) Anticoagulation Therapy Puncture Site ABG pH ABG pCO2 at Pt Temp ABG pO2 at Pt Temp ABG HCO3 ABG O2 Sat (Measured) ABG O2 Content ABG Base Excess Davi Test Carboxyhemoglobin Methemoglobin O2 Delivery Device Oxygen Flow Rate Vent Mode Vent Rate Mechanical Rate Pressure Support Vent Sodium 147 H Potassium 3.3 L Chloride 104 Carbon Dioxide 33 H Anion Gap 10 BUN 20.4 H Creatinine 2.0 H Est GFR (CKD-EPI)AfAm 25.38 Est GFR (CKD-EPI)NonAf 21.89 POC Glucometer 181 Random Glucose 199 H Lactic Acid 1.9 Calcium 6.6 L* Phosphorus 3.5 Magnesium 1.8 Total Bilirubin AST ALT Alkaline Phosphatase Troponin I B-Natriuretic Peptide Total Protein Albumin Urine Color Urine Appearance Urine pH Ur Specific [place] Urine Protein Urine Glucose (UA) Urine Ketones Urine Blood Urine Nitrite Urine Bilirubin Urine Urobilinogen Ur Leukocyte Esterase Urine WBC (Auto) Urine RBC (Auto) Urine Casts (Auto) U Pathogenic Cast Auto U Epithel Cells (Auto) Urine Bacteria (Auto) Urine Yeast (Auto) Ur Random Creatinine Ur Random Sodium Ur Random Potassium Ur Random Chloride Blood Type Antibody Screen 10/30/18 10/30/18 10/30/18 06:39 11:50 11:50 WBC 14.0 H RBC 3.30 L Hgb 11.3 Hct 34.1 MCV 103.2 H MCH 34.2 H MCHC 33.1 RDW 23.2 H Plt Count 254 MPV 7.9 Absolute Neuts (auto) Neutrophils % Lymphocytes % Monocytes % Eosinophils % Basophils % Nucleated RBC % Hypochromia Platelet Estimate Anisocytosis Macrocytosis PT with INR INR PTT (Actin FS) Anticoagulation Therapy Puncture Site ABG pH ABG pCO2 at Pt Temp ABG pO2 at Pt Temp ABG HCO3 ABG O2 Sat (Measured) ABG O2 Content ABG Base Excess Davi Test Carboxyhemoglobin Methemoglobin O2 Delivery Device Oxygen Flow Rate Vent Mode Vent Rate Mechanical Rate Pressure Support Vent Sodium Potassium Chloride Carbon Dioxide Anion Gap BUN Creatinine Est GFR (CKD-EPI)AfAm Est GFR (CKD-EPI)NonAf POC Glucometer 207 Random Glucose Lactic Acid Calcium Phosphorus Magnesium Total Bilirubin AST ALT Alkaline Phosphatase Troponin I 1.11 H* B-Natriuretic Peptide Total Protein Albumin Urine Color Urine Appearance Urine pH Ur Specific [place] Urine Protein Urine Glucose (UA) Urine Ketones Urine Blood Urine Nitrite Urine Bilirubin Urine Urobilinogen Ur Leukocyte Esterase Urine WBC (Auto) Urine RBC (Auto) Urine Casts (Auto) U Pathogenic Cast Auto U Epithel Cells (Auto) Urine Bacteria (Auto) Urine Yeast (Auto) Ur Random Creatinine Ur Random Sodium Ur Random Potassium Ur Random Chloride Blood Type Antibody Screen 10/30/18 10/30/18 10/30/18 12:32 13:30 13:30 WBC RBC Hgb Hct MCV MCH MCHC RDW Plt Count MPV Absolute Neuts (auto) Neutrophils % Lymphocytes % Monocytes % Eosinophils % Basophils % Nucleated RBC % Hypochromia Platelet Estimate Anisocytosis Macrocytosis PT with INR INR PTT (Actin FS) Anticoagulation Therapy Puncture Site ABG pH ABG pCO2 at Pt Temp ABG pO2 at Pt Temp ABG HCO3 ABG O2 Sat (Measured) ABG O2 Content ABG Base Excess Davi Test Carboxyhemoglobin Methemoglobin O2 Delivery Device Oxygen Flow Rate Vent Mode Vent Rate Mechanical Rate Pressure Support Vent Sodium Potassium Chloride Carbon Dioxide Anion Gap BUN Creatinine Est GFR (CKD-EPI)AfAm Est GFR (CKD-EPI)NonAf POC Glucometer 105 Random Glucose Lactic Acid Calcium Phosphorus Magnesium Total Bilirubin AST ALT Alkaline Phosphatase Troponin I B-Natriuretic Peptide Total Protein Albumin Urine Color Urine Appearance Urine pH Ur Specific [place] Urine Protein Urine Glucose (UA) Urine Ketones Urine Blood Urine Nitrite Urine Bilirubin Urine Urobilinogen Ur Leukocyte Esterase Urine WBC (Auto) Urine RBC (Auto) Urine Casts (Auto) U Pathogenic Cast Auto U Epithel Cells (Auto) Urine Bacteria (Auto) Urine Yeast (Auto) Ur Random Creatinine 258.0 H Ur Random Sodium 36 L Ur Random Potassium 47.0 Ur Random Chloride 42 L Blood Type Antibody Screen 10/30/18 13:30 WBC RBC Hgb Hct MCV MCH MCHC RDW Plt Count MPV Absolute Neuts (auto) Neutrophils % Lymphocytes % Monocytes % Eosinophils % Basophils % Nucleated RBC % Hypochromia Platelet Estimate Anisocytosis Macrocytosis PT with INR INR PTT (Actin FS) Anticoagulation Therapy Puncture Site ABG pH ABG pCO2 at Pt Temp ABG pO2 at Pt Temp ABG HCO3 ABG O2 Sat (Measured) ABG O2 Content ABG Base Excess Davi Test Carboxyhemoglobin Methemoglobin O2 Delivery Device Oxygen Flow Rate Vent Mode Vent Rate Mechanical Rate Pressure Support Vent Sodium Potassium Chloride Carbon Dioxide Anion Gap BUN Creatinine Est GFR (CKD-EPI)AfAm Est GFR (CKD-EPI)NonAf POC Glucometer Random Glucose Lactic Acid Calcium Phosphorus Magnesium Total Bilirubin AST ALT Alkaline Phosphatase Troponin I B-Natriuretic Peptide Total Protein Albumin Urine Color Dk yellow Urine Appearance Turbid Urine pH 5.0 Ur Specific [place] 1.022 Urine Protein Trace Urine Glucose (UA) Trace Urine Ketones Trace H Urine Blood Trace Urine Nitrite Negative Urine Bilirubin 2+ H Urine Urobilinogen 1.0 Ur Leukocyte Esterase 2+ H Urine WBC (Auto) 217 Urine RBC (Auto) 5.2 Urine Casts (Auto) 86 U Pathogenic Cast Auto None seen U Epithel Cells (Auto) 3.8 Urine Bacteria (Auto) 9.3 Urine Yeast (Auto) None seen Ur Random Creatinine Ur Random Sodium Ur Random Potassium Ur Random Chloride Blood Type Antibody Screen Active Medications Generic Name Dose Route Start Last Admin Trade Name Freq PRN Reason Stop Dose Admin Amino Acids 30 ml 10/30/18 08:00 10/30/18 08:31 Prosource No Carb Liquid Pkt PO Not Given BID@0800,1730 [facility] Atorvastatin Calcium 20 mg 10/30/18 22:00 Lipitor - PO HS [facility] Chlorhexidine Gluconate 1 applic 10/30/18 22:00 Hibiclens For Decolonization - TP [facility] Escitalopram Oxalate 5 mg 10/30/18 10:00 10/30/18 11:57 Lexapro - PO Not Given DAILY [facility] Heparin Sodium (Porcine) 5,000 unit 10/30/18 06:00 10/30/18 14:34 Heparin - SQ 5,000 unit TID [facility] Administration Hydrocortisone Sodium Succinate 50 mg 10/30/18 11:45 10/30/18 12:04 Solu-Cortef - IVPUSH 50 mg Q6H-IV [facility] Administration Norepinephrine Bitartrate 4, 500 mls @ 37.5 mls/hr 10/29/18 17:45 10/30/18 14 :15 000 mcg/ Dextrose IV 4 mcg/min TITR L[facility]I 30 mls/hr Titration Protocol 5 MCG/MIN Lactated Ringer's 1,000 ml in 1,000 mls @ 100 mls/hr 10/30/18 00:30 10/30/18 06:34 Lactated Ringers Solution IV 100 mls/hr ASDIR [facility] Administration Diltiazem HCl 125 mg/ Sodium 125 mls @ 5 mls/hr 10/30/18 10:45 10/30/18 12:41 Chloride IVPB 2.5 mg/hr TITR LEXI 2.5 mls/hr Titration Protocol 5 MG/HR Vasopressin 50 units/ Sodium 100 mls @ 4 mls/hr 10/30/18 10:45 10/30/18 15:00 Chloride IVPB 6 units/hr ASDIR LEXI 12 mls/hr Titration Protocol 2 UNITS/HR Meropenem 500 mg/ Dextrose 100 mls @ 200 mls/hr 10/30/18 18:00 IVPB Q8H-IV [facility] Insulin Aspart 1 vial 10/30/18 06:00 10/30/18 14:02 Novolog Vial Sliding Scale - SQ Not Given Q6HPO [facility] Protocol Insulin Detemir 15 units 10/30/18 07:00 10/30/18 06:45 Levemir Vial SQ 15 units AM [facility] Administration Levothyroxine Sodium 75 mcg 10/30/18 07:00 10/30/18 06:19 Synthroid - PO Not Given DAILY@0700 [facility] Metoclopramide HCl 10 mg 10/30/18 07:00 10/30/18 16:09 Reglan - PO Not Given TIDAC [facility] Mupirocin 1 applic 10/30/18 10:00 10/30/18 09:27 Bactroban Ointment (For Decolonization) - NS 11/04/18 09:59 1 applic BID [facility] Administration Pancrelipase 1 cap 10/30/18 08:00 10/30/18 14:02 Dyllan Palomares 36,000 Units Capsule PO Not Given TIDCM [facility] Pantoprazole Sodium 40 mg 10/30/18 10:00 10/30/18 09:28 Protonix - PO Not Given DAILY [facility] Senna 2 tab 10/30/18 22:00 Senna - PO HS [facility] ASSESSMENT/PLAN: Kathleen Saini is an 82 year old female with a PMHx of HTN, T2DM, CAD (NSTEMI) , afib (not on AC due to prior bleed), HFpEF who was admitted to the ICU after developing respiratory failure likely secondary to distributive vs cardiogenic shock. Acute Respiratory Failure Heart Failure with Preserved Ejection Fraction Septic Shock from possible aspiration PNA GEOFF NEUROLOGIC - intubated and sedated - questionable history of facial droop - CT head showing small chronic R occipital cortical infarct, chronic ischemic changes, no acute pathology noted - Dr. Fairbanks consulted CARDIOLOGY - tachycardia resolved with diltiazem push - maintained on diltiazem drip - previous echo showing EF 60-65% - echo today showing EF 60%, mild dilation of R ventricle, reduced R systolic function, moderate to severe mitral regurg - continue Levophed and titrate as necessary - continue vasopression and titrate as necessary - CVP monitoring and fluids as necessary - maintain MAP>65 - troponins 1.03-->1.21-->1.11, trend - cardiology consulted - continue home lipitor - hydrocortisone 50mg q6h RESPIRATORY - intubated - vent settings at rate 14, TV 450, FiO2 50, PEEP 7 - CXR showing decreased pleural changes from admission x-ray - ARDS physiology ventilation - ABG showing pH 7.47, CO2 44.1, O2 82, HCO3 34, metabolic alkalosis RENAL - GEOFF likely from cardiogenic vs distributive shock - continue fluids - hypernatremia noted, receiving LR @ 100cc/hr, continue to monitor GASTROINTESTINAL - no acute issues GENITOURINARY - no acute issues INFECTIOUS DISEASE - septic shock likely from PNA (?aspiration) - lactic acid <2 - covered with meropenem due to history of aspiration - UA showing 2+ LE, 9 bacteria, unlikely contributor to sepsis - cultures pending - Dr. Cisse consulted, recs appreciated ENDOCRINE - BGM ACHS - ISS - Levemir 15 units - continue home synthroid HEMATOLOGY - leukocytosis likely from infection MUSCULOSKELETAL - no acute issues PSYCHIATRY - continue home escitalopram F/E/N - LR @ 100cc/hr - continue to monitor electrolytes and replete as necessary, hypokalemia and hypomagnesemia noted and repleted - NPO LINES - R IJ inserted 10/30 PROPHYLAXIS - heparin 5000 units subq tid CODE - full code - family considering DNR, will f/u DISPO - continue to monitor in ICU CASE DISCUSSED WITH DR. RIZVI AND PRIMARY TEAM FRANKLIN MARQUIS DO - PGY-1 INTERNAL MEDICINE Visit type - Emergency Visit Emergency Visit: No - New Patient This patient is new to me today: Yes Date on this admission: 10/30/18 - Critical Care Critical Care patient: Yes Total Critical Care Time (in minutes): 40 Critical Care Statement: The care of this patient involved high complexity decision making to prevent further life threatening deterioration of the patient 's condition and/or to evaluate & treat vital organ system(s) failure or risk of failure.
--- NOTE | 2018-10-30 17:04 | EKG ---
Test Reason : Blood Pressure : / mmHG Vent. Rate : 165 BPM Atrial Rate : 258 BPM P-R Int : 000 ms QRS Dur : 082 ms QT Int : 240 ms P-R-T Axes : 000 -26 191 degrees QTc Int : 397 ms ATRIAL FIBRILLATION WITH RAPID VENTRICULAR RESPONSE LOW VOLTAGE QRS CANNOT RULE OUT ANTERIOR INFARCT , AGE UNDETERMINED ABNORMAL ECG WHEN COMPARED WITH ECG OF 29-OCT-2018 17:15, ATRIAL FIBRILLATION HAS REPLACED SINUS RHYTHM VENT. RATE HAS INCREASED BY 90 BPM RIGHT BUNDLE BRANCH BLOCK IS NO LONGER PRESENT MINIMAL CRITERIA FOR ANTERIOR INFARCT ARE NOW PRESENT Confirmed by MD Samuel Daniel ([id number]) on 10/30/2018 5:04:26 PM Referred By: Confirmed By:Israel Samuel MD
[2018-10-30] MEDS: NOREPINEPHRINE BITARTRATE 4,000 MCG in DEXTROSE 5%-WATER - 496 ML IV SCH (18:10)
[2018-10-30] MEDS ORDERED: DEXTROSE 50%-WATER - 25 GM/50 ML VIAL IVPUSH ONE (18:10)
[2018-10-30] MEDS: MEROPENEM 500 MG in DEXTROSE 5%-WATER 100 ML IVPB SCH (18:11)
[2018-10-30] MEDS ORDERED: DEXTROSE 50%-WATER 25 GM/50 ML DISP.SYRIN ONE (18:54)
--- NOTE | 2018-10-30 20:50 | CON.CARD ---
Consult Consult Specialty:: cardiology Reason for Consultation:: hypotension - History of Present Illness Chief Complaint: Intubated; moves right arm spontaneously; does not follow commands History of Present Illness: The patient is an 88-year-old female, with a past medical history of HTN, DM, gastroparesis, CAD, afib (on eliquis), PSVT, diastolic CHF (on Lasix), hypothyroidism, and hx of NSTEMI, presents to the ED with AMS today. Daughter states that she noted the patient to be altered at 9:30AM and was not eating or drinking. She also noted a possible RT-sided facial droop at 10AM. Daughter states the patient has experienced similar symptoms in the past. EMS was called around 4PM today. Upon their arrival, the patient was noted to be hypotensive in the 60s and was intubated (7.5cm tube, 24cm at the lip). She also received 60mg of mady and 500mg of ketamine while in the field. HPI is limited due to patients clinical condition. 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, Vertigo Cardio/Vascular: Yes: AFIB, CAD, HTN, Hyperlipdemia Pulmonary: Yes: COPD Gastrointestinal: Yes: Constipation, Hiatal Hernia, Other Endocrine: Yes: Diabetes Mellitus (insulin-dependent for years -> uncontrolled) , Hypothyroidism Dermatology: Yes: Cellulitis (in past, with chronic and intermittent edema) - Past Surgical History Past Surgical History: Yes: Cholecystectomy, Stent (coronary stents), Upper Endoscopy - Alcohol/Substance Use Hx Alcohol Use: No History of Substance Use: reports: None - Smoking History Smoking history: Unknown if ever smoked Have you smoked in the past 12 months: No Aproximately how many cigarettes per day: 0 If you are a former smoker, when did you quit?: 1984 - Social History Usual Living Arrangement: With Child ADL: Family Assistance History of Recent Travel: No Home Medications - Allergies Allergies/Adverse Reactions: Allergies Allergy/AdvReac Type Severity Reaction Status Date / Time vancomycin AdvReac Itching Verified 07/26/18 12:49 - Home Medications Home Medications: Ambulatory Orders Atorvastatin Ca [Lipitor] 20 mg PO HS tablet 02/27/18 Metoprolol Tartrate [Lopressor -] 50 mg PO BID tablet 04/03/18 Sennosides [Senna -] 2 tab PO HS tablet 04/03/18 Insulin (Levemir) [Levemir Vial] 15 units SQ AM units 04/14/18 Escitalopram Oxalate [Lexapro -] 5 mg PO DAILY tablet 04/21/18 Metoclopramide HCl [Reglan -] 10 mg PO TIDAC tablet 04/21/18 Potassium Chloride 40 meq PO DAILY #60 tablet.er 04/21/18 Insulin Aspart [Novolog] 100 unit SQ Q6H PRN 05/03/18 Omeprazole 40 mg PO DAILY 05/03/18 Amino Acids/Protein Hydrolys [Prosource No Carb Liquid Pkt] 30 ml PO BID@0800, 1730 #60 packet 08/08/18 Levothyroxine [Synthroid -] 75 mcg PO DAILY@0700 tablet 08/08/18 Lipase/Protease/Amylase [Dyllan Palomares 36,000 Units Capsule] 1 cap PO TIDCM #90 capsule. 08/08/18 Ondansetron [Zofran Odt -] 4 mg SL Q8H PRN #30 tab.rapdis 08/08/18 Rifaximin [Xifaxan -] 550 mg PO TID #90 tablet 08/08/18 Sucralfate Oral Suspension [Carafate Oral Suspension -] 1 gm PO BID #1 bottle metroNIDAZOLE [Flagyl -] 500 mg PO TID 7 Days #42 tablet 08/08/18 Family Disease History - Family Disease History Family Disease History: Diabetes: Daughter Review of Systems - Review of Systems Constitutional: reports: Weakness Eyes: reports: No Symptoms HENT: reports: No Symptoms Neck: reports: No Symptoms Cardiovascular: reports: Shortness of Breath Respiratory: reports: SOB Gastrointestinal: reports: No Symptoms Genitourinary: reports: No Symptoms Breasts: reports: No Symptoms Reported Musculoskeletal: reports: Muscle Weakness Integumentary: reports: Wound (le3ft heel ulcer) Endocrine: reports: No Symptoms Hematology/Lymphatic: reports: No Symptoms Psychiatric: reports: Other - Risk Factors Known Risk Factors: Yes: Age, Hypertension, Other (atrial fibrillation; diastolic CHF) Vital Signs: Vital Signs Temperature 100.8 F H 10/30/18 14:00 Pulse Rate 64 10/30/18 18:52 Respiratory Rate 16 10/30/18 19:42 Blood Pressure 94/66 07/30/19 18:52 O2 Sat by Pulse Oximetry (%) 100 10/30/18 19:42 Constitutional: Yes: Other Eyes: Yes: Conjunctiva Clear HENT: Yes: Other Neck: Yes: Decreased ROM Respiratory: Yes: Intubated, Mechanically Ventilated Gastrointestinal: Yes: Soft JVD: Yes Carotid Bruit: No PMI: Non-Displaced Heart Sounds: Yes: S1 (varies in intensity), Split S2 Murmur: Yes: Systolic Murmur, Grade 1 Musculoskeletal: Yes: Muscle Weakness Extremities: Yes: Cool, Other (left large heel ulcer) Edema: Yes Edema: LLE: 1+, RLE: 1+ Peripheral Pulses WNL: No Peripheral Pulses: 1+ Left Doralis Pedis, 1+ Right Dorsalis Pedis Integumentary: Yes: Pressure Ulcer Neurological: Yes: Unresponsive, Weakness Psychiatric: Yes: Other - Other Data Labs, Other Data: CBC, BMP 10/30/18 11:50 10/30/18 06:10 INR, PTT INR 1.27 (0.83-1.09) H 10/29/18 19:00 Troponin, BNP 10/29/18 10/29/18 10/30/18 20:14 22:30 02:30 Troponin I 1.03 H* 1.21 H* B-Natriuretic Peptide 10353.6 H 10/30/18 11:50 Troponin I 1.11 H* B-Natriuretic Peptide Troponin, BNP 10/29/18 10/29/18 10/30/18 20:14 22:30 02:30 Troponin I 1.03 H* 1.21 H* B-Natriuretic Peptide 65710.6 H 10/30/18 11:50 Troponin I 1.11 H* B-Natriuretic Peptide Echo: Report Reviewed (normal LVEF) Ejection Fraction %: LVEF > or = 40 % Imaging - Results Chest X-ray: Image Reviewed EKG: Image Reviewed Other: Image Reviewed (AF with RVR; briref periods of wide-complex tachycardia) Problem List - Problems (1) NSVT (nonsustained ventricular tachycardia) Code(s): I47.2 - VENTRICULAR TACHYCARDIA (2) SVT (supraventricular tachycardia) Code(s): I47.1 - SUPRAVENTRICULAR TACHYCARDIA (3) Elevated troponin Code(s): R74.8 - ABNORMAL LEVELS OF OTHER SERUM ENZYMES (4) Acute diastolic heart failure Code(s): I50.31 - ACUTE DIASTOLIC (CONGESTIVE) HEART FAILURE (5) Acute metabolic encephalopathy Code(s): G93.41 - METABOLIC ENCEPHALOPATHY (6) Acute renal failure Code(s): N17.9 - ACUTE KIDNEY FAILURE, UNSPECIFIED Qualifiers: Acute renal failure type: unspecified Qualified Code(s): N17.9 - Acute kidney failure, unspecified (7) Afib Assessment/Plan: Presently intubated, on pressors. On diltiazem IV drip (unsuccessful cardioveresions for AF with RVR with hypotension PSVT). When hemodynamics are stable, would consider restart metoprolol (brief runs of NSVT); may use meotprolo IVP 2.5-5 mg q 4hours, or esmolol IV drip, until able to give PO medicatons.If diltiazem is continued, would continue IV drip until PO medication is started to avoid return to rapid ventricular response. Once cleared by neurologist (ruling out CVA), and GI (hx GI bleed), start IV heparin or Lovenox (if renal function allows) until qpixaban can be restarted. Code(s): I48.91 - UNSPECIFIED ATRIAL FIBRILLATION Qualifiers: Atrial fibrillation type: paroxysmal Qualified Code(s): I48.0 - Paroxysmal atrial fibrillation Assessment/Plan CCU time spent: 70 minutes.
[2018-10-30] MEDS ORDERED: MEROPENEM 1 GM in DEXTROSE 5%-WATER 100 ML IVPB SCH (22:00)
[2018-10-30] MEDS: SENNOSIDES 8.6MG TABLET (FP) PO SCH (22:17)
[2018-10-30] MEDS: CHLORHEXIDINE GLUCONATE 4% CLEANSER FOR DECOLONIZATION TP SCH (22:17)
[2018-10-30] MEDS: ATORVASTATIN CA 20 MG TABLET (FP) PO SCH (22:17)
[2018-10-31] MEDS ORDERED: PT OWN MED DRAWER 7, Y5N ONE ×5 (01:24→17:13)
[2018-10-31] MEDS: MEROPENEM 500 MG in DEXTROSE 5%-WATER 100 ML IVPB SCH ×3 (02:07→17:19)
[2018-10-31] MEDS: HYDROCORTISONE SOD SUCCINATE 100 MG/2 ML VIAL IVPUSH SCH ×4 (02:08→22:23)
[2018-10-31] MEDS: HEPARIN NA (PORCINE) 5,000 UNITS/ML 1ML VIAL SQ SCH ×3 (06:11→22:23)
[2018-10-31] MEDS: INSULIN SLIDING SCALE (NOVOLOG) 1 VIAL SQ SCH ×3 (06:15→18:30)
[2018-10-31] MEDS: INSULIN (LEVEMIR) 100 UNITS/ML UNITS SQ SCH (06:15)
[2018-10-31 06:54] LABS: BASO % 0.2 % (0-2.0); HEMATOCRIT 29.9 % (32.4-45.2); HEMOGLOBIN 10.2 GM/dL (10.7-15.3); LYMPH % 13.2 % (8-40); MCH 35.2 pg (25.7-33.7); MCHC 34.1 g/dl (32.0-36.0); MEAN CELL VOLUME 103.1 fl (80-96); MEAN PLT VOLUME 8.3 fl (7.5-11.1); MONO % 4.1 % (3.8-10.2); NEUT % 82.5 % (42.8-82.8); PLATELET COUNT 175 K/MM3 (134-434); RDW 22.7 % (11.6-15.6); WHITE BLOOD COUNT 7.8 K/mm3 (4.0-10.0)
[2018-10-31] MEDS: METOCLOPRAMIDE HCL 10 MG TABLET (FP) PO SCH ×3 (07:33→17:21)
[2018-10-31] MEDS: LEVOTHYROXINE NA 75 MCG TABLET (FP) PO SCH (07:34)
[2018-10-31 07:54] LABS: BLOOD UREA NITROGEN 20.6 mg/dL (7-18); CREATININE 1.8 mg/dL (0.55-1.3); MAGNESIUM 1.6 mg/dL (1.8-2.4); PHOSPHOROUS 2.9 mg/dL (2.5-4.9); POTASSIUM 3.2 mmol/L (3.5-5.1)
[2018-10-31 07:59] LABS: CALCIUM 6.6 mg/dL (8.5-10.1)
--- NOTE | 2018-10-31 08:25 | PN ---
Progress Note, Physician History of Present Illness: he patient is an 88-year-old female, with a past medical history of HTN, DM, gastroparesis, CAD, afib (on eliquis), PSVT, diastolic CHF (on Lasix), hypothyroidism, and hx of NSTEMI, presents to the ED with AMS today. Daughter states that she noted the patient to be altered at 9:30AM and was not eating or drinking. She also noted a possible RT-sided facial droop at 10AM. Daughter states the patient has experienced similar symptoms in the past. EMS was called around 4PM today. Upon their arrival, the patient was noted to be hypotensive in the 60s and was intubated (7.5cm tube, 24cm at the lip). She also received 60mg of mady and 500mg of ketamine while in the field. HPI is limited due to patients clinical condition. - Current Medication List Current Medications: Active Medications Amino Acids (Prosource No Carb Liquid Pkt) 30 ml PO BID@0800,1730 [facility] Last Admin: 10/30/18 18:11 Dose: Not Given Atorvastatin Calcium (Lipitor -) 20 mg PO HS [facility] Last Admin: 10/30/18 22:17 Dose: Not Given Chlorhexidine Gluconate (Hibiclens For Decolonization -) 1 applic TP HS [facility] Last Admin: 10/30/18 22:17 Dose: 1 applic Escitalopram Oxalate (Lexapro -) 5 mg PO DAILY [facility] Last Admin: 10/30/18 11:57 Dose: Not Given Heparin Sodium (Porcine) (Heparin -) 5,000 unit SQ TID [facility] Last Admin: 10/31/18 06:11 Dose: 5,000 unit Hydrocortisone Sodium Succinate (Solu-Cortef -) 50 mg IVPUSH Q6H-IV [facility] Last Admin: 10/31/18 02:08 Dose: 50 mg Lactated Ringer's (Lactated Ringers Solution) 1,000 ml in 1,000 mls @ 100 mls/ hr IV ASDIR [facility] Last Admin: 10/30/18 23:29 Dose: 100 mls/hr Diltiazem HCl 125 mg/ Sodium (Chloride) 125 mls @ 5 mls/hr IVPB TITR [facility]; Protocol Last Titration: 10/30/18 15:15 Dose: 0 mg/hr, 0 mls/hr Meropenem 500 mg/ Dextrose 100 mls @ 200 mls/hr IVPB Q8H-IV [facility] Last Admin: 10/31/18 02:07 Dose: 200 mls/hr Insulin Aspart (Novolog Vial Sliding Scale -) 1 vial SQ Q6HPO [facility]; Protocol Last Admin: 10/31/18 06:15 Dose: Not Given Insulin Detemir (Levemir Vial) 15 units SQ AM [facility] Last Admin: 10/31/18 06:15 Dose: 15 units Levothyroxine Sodium (Synthroid -) 75 mcg PO DAILY@0700 [facility] Last Admin: 10/31/18 07:34 Dose: Not Given Metoclopramide HCl (Reglan -) 10 mg PO TIDAC [facility] Last Admin: 10/31/18 07:33 Dose: Not Given Mupirocin (Bactroban Ointment (For Decolonization) -) 1 applic NS BID [facility] Stop: 11/04/18 09:59 Last Admin: 10/30/18 22:16 Dose: 1 applic Pancrelipase (Creon Dr 36,000 Units Capsule) 1 cap PO TIDCM [facility] Last Admin: 10/30/18 18:11 Dose: Not Given Pantoprazole Sodium (Protonix -) 40 mg PO DAILY [facility] Last Admin: 10/30/18 09:28 Dose: Not Given Senna (Senna -) 2 tab PO HS [facility] Last Admin: 10/30/18 22:17 Dose: Not Given - Objective Vital Signs: Vital Signs Temperature 98.6 F 10/31/18 06:00 Pulse Rate 84 10/31/18 06:00 Respiratory Rate 17 10/31/18 07:14 Blood Pressure 111/61 10/31/18 06:00 O2 Sat by Pulse Oximetry (%) 97 10/31/18 02:13 Labs: CBC, BMP 10/31/18 05:15 10/31/18 05:15 INR, PTT INR 1.27 (0.83-1.09) H 10/29/18 19:00 Assessment/Plan - Problems (1) NSVT (nonsustained ventricular tachycardia) Code(s): I47.2 - VENTRICULAR TACHYCARDIA (2) SVT (supraventricular tachycardia) Code(s): I47.1 - SUPRAVENTRICULAR TACHYCARDIA (3) Elevated troponin Code(s): R74.8 - ABNORMAL LEVELS OF OTHER SERUM ENZYMES (4) Acute diastolic heart failure Code(s): I50.31 - ACUTE DIASTOLIC (CONGESTIVE) HEART FAILURE (5) Acute metabolic encephalopathy Code(s): G93.41 - METABOLIC ENCEPHALOPATHY (6) Acute renal failure Code(s): N17.9 - ACUTE KIDNEY FAILURE, UNSPECIFIED Qualifiers: Acute renal failure type: unspecified Qualified Code(s): N17.9 - Acute kidney failure, unspecified (7) Afib Assessment/Plan: Presently intubated, on pressors. On diltiazem IV drip (unsuccessful cardioveresions for PSvt). When hemodynamics are stable, would restart metoprolol (brief runs of NSVT); may use meotprolo IVP 2.5-5 mg q 4hours, or esmolol IV drip, until able to give PO medicatons. Once cleared by neurologist (ruling out CVA), and GI (hx GI bleed), start IV heparin or Lovenox (if renal function allows) until qpixaban can be restarted. Code(s): I48.91 - UNSPECIFIED ATRIAL FIBRILLATION Qualifiers: Atrial fibrillation type: paroxysmal Qualified Code(s): I48.0 - Paroxysmal atrial fibrillation Assessment/Plan CCU time spent: 37 minutes.
[2018-10-31] MEDS: ESCITALOPRAM OXALATE 10 MG TABLET (FP) PO SCH (10:14)
[2018-10-31] MEDS: MUPIROCIN 2% TOPICAL OINTMENT FOR DECOLONIZATION NS SCH ×2 (10:14→22:23)
[2018-10-31] MEDS: LIPASE/PROTEASE/AMYLASE 36,000 UNIT CAPSULE PO SCH ×3 (10:15→17:23)
[2018-10-31] MEDS: PANTOPRAZOLE 40 MG TABLET (FP) PO SCH (10:15)
[2018-10-31] MEDS: AMINO ACIDS/PROTEIN HYDROLYS 30 ML LIQUID.PKT PO SCH ×2 (10:15→17:21)
--- NOTE | 2018-10-31 11:10 | PN ---
Progress Note, Physician Chief Complaint: EVENTS AND NOTES REVIEWED INTUBATED RESPIRATORY/CARDIOGENIC FAILURE FULL CODE - Current Medication List Current Medications: Active Medications Amino Acids (Prosource No Carb Liquid Pkt) 30 ml PO BID@0800,1730 [facility] Last Admin: 10/31/18 10:15 Dose: Not Given Atorvastatin Calcium (Lipitor -) 20 mg PO HS [facility] Last Admin: 10/30/18 22:17 Dose: Not Given Chlorhexidine Gluconate (Hibiclens For Decolonization -) 1 applic TP HS [facility] Last Admin: 10/30/18 22:17 Dose: 1 applic Escitalopram Oxalate (Lexapro -) 5 mg PO DAILY [facility] Last Admin: 10/31/18 10:14 Dose: Not Given Heparin Sodium (Porcine) (Heparin -) 5,000 unit SQ TID [facility] Last Admin: 10/31/18 06:11 Dose: 5,000 unit Hydrocortisone Sodium Succinate (Solu-Cortef -) 50 mg IVPUSH Q6H-IV [facility] Last Admin: 10/31/18 09:49 Dose: 50 mg Meropenem 500 mg/ Dextrose 100 mls @ 200 mls/hr IVPB Q8H-IV [facility] Last Admin: 10/31/18 10:14 Dose: 200 mls/hr Insulin Aspart (Novolog Vial Sliding Scale -) 1 vial SQ Q6HPO [facility]; Protocol Last Admin: 10/31/18 06:15 Dose: Not Given Insulin Detemir (Levemir Vial) 15 units SQ AM [facility] Last Admin: 10/31/18 06:15 Dose: 15 units Levothyroxine Sodium (Synthroid -) 75 mcg PO DAILY@0700 [facility] Last Admin: 10/31/18 07:34 Dose: Not Given Metoclopramide HCl (Reglan -) 10 mg PO TIDAC [facility] Last Admin: 10/31/18 07:33 Dose: Not Given Mupirocin (Bactroban Ointment (For Decolonization) -) 1 applic NS BID [facility] Stop: 11/04/18 09:59 Last Admin: 10/31/18 10:14 Dose: 1 applic Pancrelipase (Creon Dr 36,000 Units Capsule) 1 cap PO TIDCM [facility] Last Admin: 10/31/18 10:15 Dose: Not Given Pantoprazole Sodium (Protonix -) 40 mg PO DAILY [facility] Last Admin: 10/31/18 10:15 Dose: Not Given Senna (Senna -) 2 tab PO HS [facility] Last Admin: 10/30/18 22:17 Dose: Not Given - Objective Vital Signs: Vital Signs Temperature 98.9 F 10/31/18 10:00 Pulse Rate 76 10/31/18 10:00 Respiratory Rate 13 10/31/18 10:00 Blood Pressure 121/57 L 10/31/18 10:00 O2 Sat by Pulse Oximetry (%) 98 10/31/18 09:00 Constitutional: Yes: Severe Distress Cardiovascular: Yes: Pulse Irregular Respiratory: Yes: Diminished, Mechanically Ventilated Gastrointestinal: Yes: Abdomen, Obese Genitourinary: Yes: Ricketts Present Edema: Yes Integumentary: Yes: Rash, Venous Stasis Changes Neurological: Yes: Unresponsive, Other Labs: CBC, BMP 10/31/18 05:15 10/31/18 05:15 INR, PTT INR 1.27 (0.83-1.09) H 10/29/18 19:00 Problem List - Problems (1) Respiratory failure Code(s): J96.90 - RESPIRATORY FAILURE, UNSP, UNSP W HYPOXIA OR HYPERCAPNIA (2) Altered mental status Code(s): R41.82 - ALTERED MENTAL STATUS, UNSPECIFIED Qualifiers: Altered mental status type: unspecified Qualified Code(s): R41.82 - Altered mental status, unspecified (3) Elevated troponin Code(s): R74.8 - ABNORMAL LEVELS OF OTHER SERUM ENZYMES (4) NSVT (nonsustained ventricular tachycardia) Code(s): I47.2 - VENTRICULAR TACHYCARDIA (5) Respiratory failure Code(s): J96.90 - RESPIRATORY FAILURE, UNSP, UNSP W HYPOXIA OR HYPERCAPNIA Qualifiers: Chronicity: acute Respiratory failure complication: hypoxia Qualified Code(s): J96.01 - Acute respiratory failure with hypoxia (6) SVT (supraventricular tachycardia) Code(s): I47.1 - SUPRAVENTRICULAR TACHYCARDIA (7) Acute diastolic heart failure Code(s): I50.31 - ACUTE DIASTOLIC (CONGESTIVE) HEART FAILURE (8) Acute metabolic encephalopathy Code(s): G93.41 - METABOLIC ENCEPHALOPATHY (9) Afib Code(s): I48.91 - UNSPECIFIED ATRIAL FIBRILLATION Qualifiers: Atrial fibrillation type: paroxysmal Qualified Code(s): I48.0 - Paroxysmal atrial fibrillation (10) COPD (chronic obstructive pulmonary disease) Code(s): J44.9 - CHRONIC OBSTRUCTIVE PULMONARY DISEASE, UNSPECIFIED (11) Morbid obesity with BMI of 40.0-44.9, adult Code(s): E66.01 - MORBID (SEVERE) OBESITY DUE TO EXCESS CALORIES; Z68.41 - BODY MASS INDEX (BMI) 40.0-44.9, ADULT (12) Type 2 diabetes mellitus with other circulatory complications Code(s): E11.59 - TYPE 2 DIABETES MELLITUS WITH OTH CIRCULATORY COMPLICATIONS (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
[2018-10-31] MEDS ORDERED: MAGNESIUM SULF 50% (8.12 MEQ/2 ML-1 GM VIAL) IVPB ONE (12:07)
--- NOTE | 2018-10-31 12:30 | CONSULT ---
Consult - text type - Consultation Consultation Note: NEUROLOGY CONSULT GREATLY APPRECIATED: Events reviewed and discussed with GINGER Orozco and IVANIA Puga. Cardiology and ID consults read and appreciated. This 88-year-old female PMHX: HTN, DM, gastroparesis, CAD, afib, diastolic CHF, hypothyroidism NSTEMI. On: atorvastatin, metoprolol, insulin, escitalopram, metoclopramide, omeprazole , levothyroxine, ondansetron, rifaximin, flagyl. Found confused per daughter and with ? R facial droop 930AM 10/29/18 and brought by EMS around 4pm hypotensive and intubated. Now in ICU. Head CT obtained while in ED (reviewed): Poor quality study due to patient positioning. Severe diffuse cerebral atrophy with ex vacuo ventricular dilation. Chronic periventricular ischemic changes. Initially in sinus rhythm, since converted to Afib with RBR and on Diltiazem drip. Currently being treated with IV Merpenam for presumed UTI/ urosepsis with Urine WBC> 200 and cultures + e. coli.. Per RN, pt off sedation since last night. Repeat CT of head (reviewed): Shows the development of a large Right MCA- territory CVA WBC 14-> 7.8 BNP 81415 ABEL: Obese. Cor irregular. IJ in R neck. Ricketts in situ. On vent. 3+ pitting edema in all four extremities. NEURO: No response to name, light touch. Purposeful mov'ts with right hand to sternal rub. + glabella Shallow spontaneous respirations CNII-CNXII: Sluggish corneals B/L. Conjugate L gaze deviation with limited [place] Mvm'ts. Pupils pinpoint and without response to light. However, patient blinks to visual threat from the right but not from the left. Motor: No movement on L side. Flaccid on the left.Involuntary movements on R side with strong R grasp. Reflexes normal. Plantars silent. Sensation: Reduced response to pinch all fours. 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 A Fib and likely cardioembolic CVA R/O TN Continue telemetry. Echocardiogram as per cardiology. Continue antibiotics, hydration and conservative Rx. Thank you very much, Thomas Fairbanks MD
[2018-10-31] MEDS: KCL 10 MEQ IVPB 10 MEQ/100 ML INFUS.BAG IVPB SCH ×3 (13:33→16:55)
--- NOTE | 2018-10-31 14:10 | PN ---
Teaching Attending Note Name of Resident: Enio Martinez ATTENDING PHYSICIAN STATEMENT I saw and evaluated the patient. I reviewed the resident's note and discussed the case with the resident. I agree with the resident's findings and plan as documented. SUBJECTIVE: Pt seen and examined in the ICU. Remains intubated, poorly responsive off sedation. Off pressors. In/out of atrial flutter. OBJECTIVE: Vital Signs Period Temp Pulse Resp BP Sys/Gu Pulse Ox Last 24 Hr 98.6 F-100.4 F 63-89 13-20 71-146/47-92 97-100 Intake & Output 10/28/18 10/29/18 10/30/18 10/31/18 23:59 23:59 23:59 23:59 Intake Total 1532 1346 Output Total 150 100 Balance 1382 1246 Weight 108.862 kg 89.086 kg 91.308 kg Gen: intubated, poorly responsive Heart: irregular Lung: decreased breath sounds at the bases Abd: soft, nontender Ext: + edema CBC, BMP 10/31/18 05:15 10/31/18 05:15 Active Medications Amino Acids (Prosource No Carb Liquid Pkt) 30 ml PO BID@0800,1730 [facility] Last Admin: 10/31/18 10:15 Dose: Not Given Atorvastatin Calcium (Lipitor -) 20 mg PO HS [facility] Last Admin: 10/30/18 22:17 Dose: Not Given Chlorhexidine Gluconate (Hibiclens For Decolonization -) 1 applic TP HS [facility] Last Admin: 10/30/18 22:17 Dose: 1 applic Escitalopram Oxalate (Lexapro -) 5 mg PO DAILY [facility] Last Admin: 10/31/18 10:14 Dose: Not Given Heparin Sodium (Porcine) (Heparin -) 5,000 unit SQ TID [facility] Last Admin: 10/31/18 06:11 Dose: 5,000 unit Hydrocortisone Sodium Succinate (Solu-Cortef -) 50 mg IVPUSH Q6H-IV [facility] Last Admin: 10/31/18 09:49 Dose: 50 mg Meropenem 500 mg/ Dextrose 100 mls @ 200 mls/hr IVPB Q8H-IV [facility] Last Admin: 10/31/18 10:14 Dose: 200 mls/hr Potassium Chloride (Potassium Chloride 10 Meq Premix Ivpb -) 10 meq in 100 mls @ 100 mls/hr IVPB Q60M [facility] Stop: 10/31/18 15:14 Last Admin: 10/31/18 13:33 Dose: 100 mls/hr Insulin Aspart (Novolog Vial Sliding Scale -) 1 vial SQ Q6HPO [facility]; Protocol Last Admin: 10/31/18 06:15 Dose: Not Given Insulin Detemir (Levemir Vial) 15 units SQ AM [facility] Last Admin: 10/31/18 06:15 Dose: 15 units Levothyroxine Sodium (Synthroid -) 75 mcg PO DAILY@0700 [facility] Last Admin: 10/31/18 07:34 Dose: Not Given Metoclopramide HCl (Reglan -) 10 mg PO TIDAC [facility] Last Admin: 10/31/18 07:33 Dose: Not Given Mupirocin (Bactroban Ointment (For Decolonization) -) 1 applic NS BID [facility] Stop: 11/04/18 09:59 Last Admin: 10/31/18 10:14 Dose: 1 applic Pancrelipase (Creon Dr 36,000 Units Capsule) 1 cap PO TIDCM [facility] Last Admin: 10/31/18 10:15 Dose: Not Given Pantoprazole Sodium (Protonix -) 40 mg PO DAILY [facility] Last Admin: 10/31/18 10:15 Dose: Not Given Senna (Senna -) 2 tab PO HS [facility] Last Admin: 10/30/18 22:17 Dose: Not Given ASSESSMENT AND PLAN: Acute Respiratory Failure r/o Aspiration Pneumonia UTI Suspected Septic Shock Atrial Fibrillation/Flutter LV Diastolic Dysfunction r/o CVA Acute Kidney Injury DM Hypothyroidism Hyperlipidemia - continue antibiotics - f/u cultures - taper hydrocortisone - monitor off pressors, maintain MAP >65 - replete lytes - rate control - off anticoagulation due to history of GI bleed - CT head - monitor off sedation to assess mental status - spontaneous breathing trials when mental status improved - enteral feeds - DVT/GI prophylaxis - continue ICU monitoring critical care time spent in reviewing chart, evaluating patient and formulating plan 35 min
[2018-10-31] MEDS ORDERED: DEXTROSE 50%-WATER 25 GM/50 ML DISP.SYRIN ONE (17:51)
--- NOTE | 2018-10-31 17:53 | PN ---
Progress Note, Physician History of Present Illness: POORLY RESPONSIVE ON VENTILATOR OFF SEDATION HYPOTENSIVE TEMPS, WBC IMPROVED - Current Medication List Current Medications: Active Medications Amino Acids (Prosource No Carb Liquid Pkt) 30 ml PO BID@0800,1730 [facility] Last Admin: 10/31/18 17:21 Dose: 30 ml Atorvastatin Calcium (Lipitor -) 20 mg PO HS [facility] Last Admin: 10/30/18 22:17 Dose: Not Given Chlorhexidine Gluconate (Hibiclens For Decolonization -) 1 applic TP HS [facility] Last Admin: 10/30/18 22:17 Dose: 1 applic Escitalopram Oxalate (Lexapro -) 5 mg PO DAILY [facility] Last Admin: 10/31/18 10:14 Dose: Not Given Heparin Sodium (Porcine) (Heparin -) 5,000 unit SQ TID [facility] Last Admin: 10/31/18 14:34 Dose: 5,000 unit Hydrocortisone Sodium Succinate (Solu-Cortef -) 50 mg IVPUSH Q6H-IV [facility] Last Admin: 10/31/18 15:24 Dose: 50 mg Meropenem 500 mg/ Dextrose 100 mls @ 200 mls/hr IVPB Q8H-IV [facility] Last Admin: 10/31/18 17:19 Dose: 200 mls/hr Insulin Aspart (Novolog Vial Sliding Scale -) 1 vial SQ Q6HPO [facility]; Protocol Last Admin: 10/31/18 15:25 Dose: Not Given Insulin Detemir (Levemir Vial) 15 units SQ AM [facility] Last Admin: 10/31/18 06:15 Dose: 15 units Levothyroxine Sodium (Synthroid -) 75 mcg PO DAILY@0700 [facility] Last Admin: 10/31/18 07:34 Dose: Not Given Metoclopramide HCl (Reglan -) 10 mg PO TIDAC [facility] Last Admin: 10/31/18 17:21 Dose: 10 mg Mupirocin (Bactroban Ointment (For Decolonization) -) 1 applic NS BID [facility] Stop: 11/04/18 09:59 Last Admin: 10/31/18 10:14 Dose: 1 applic Pancrelipase (Creon Dr 36,000 Units Capsule) 1 cap PO TIDCM [facility] Last Admin: 10/31/18 17:23 Dose: 1 cap Pantoprazole Sodium (Protonix -) 40 mg PO DAILY [facility] Last Admin: 10/31/18 10:15 Dose: Not Given Senna (Senna -) 2 tab PO HS [facility] Last Admin: 10/30/18 22:17 Dose: Not Given - Objective Vital Signs: Vital Signs Temperature 99.3 F 10/31/18 14:00 Pulse Rate 90 10/31/18 14:00 Respiratory Rate 14 10/31/18 14:00 Blood Pressure 103/61 10/31/18 14:00 O2 Sat by Pulse Oximetry (%) 98 10/31/18 09:00 Constitutional: Yes: No Distress, Obese Cardiovascular: Yes: Regular Rate and Rhythm, S1, S2 Respiratory: Yes: CTA Bilaterally, Mechanically Ventilated Gastrointestinal: Yes: Normal Bowel Sounds, Soft, Abdomen, Obese Labs: CBC, BMP 10/31/18 05:15 10/31/18 05:15 INR, PTT INR 1.27 (0.83-1.09) H 10/29/18 19:00 Assessment/Plan CARDIOGENIC V. SEPTIC SHOCK RESP FAILURE R/O ASP PNEUMONIA R/O CVA AZOTEMIA HX + ESBL CONTINUE MEROPENEM
[2018-10-31] MEDS ORDERED: DEXTROSE 50%-WATER - 25 GM/50 ML VIAL IVPUSH ONE ×2 (17:59→18:46)
[2018-10-31] MEDS ORDERED: DEXTROSE 5%-NORMAL SALINE 1,000 ML IV SCH (19:00)
[2018-10-31] MEDS: DEXTROSE 5%-NORMAL SALINE 1,000 ML IV SCH (20:02)
[2018-10-31] MEDS: CHLORHEXIDINE GLUCONATE 4% CLEANSER FOR DECOLONIZATION TP SCH (22:23)
[2018-10-31] MEDS: ATORVASTATIN CA 20 MG TABLET (FP) PO SCH (22:23)
[2018-10-31] MEDS: SENNOSIDES 8.6MG TABLET (FP) PO SCH (22:24)
[2018-10-31] MEDS ORDERED: dilTIAZem HCL 25 MG/5 ML - 5 ML VIAL ONE (23:28)
[2018-10-31] MEDS ORDERED: VASOPRESSIN 20 UNITS/ML VIAL IV ONE (23:30)
[2018-10-31] MEDS: VASOPRESSIN 50 UNITS in SODIUM CHLORIDE 97.5 ML IVPB SCH (23:35)
[2018-10-31] MEDS ORDERED: DILTIAZEM INJECTION 125 MG in SODIUM CHLORIDE 100 ML IVPB SCH (23:45)
[2018-11-01] MEDS: INSULIN SLIDING SCALE (NOVOLOG) 1 VIAL SQ SCH ×4 (00:31→18:03)
[2018-11-01] MEDS ORDERED: PT OWN MED DRAWER 7, Y5N ONE ×7 (01:19→22:31)
[2018-11-01] MEDS: MEROPENEM 500 MG in DEXTROSE 5%-WATER 100 ML IVPB SCH ×2 (01:27→09:05)
[2018-11-01] MEDS: HYDROCORTISONE SOD SUCCINATE 100 MG/2 ML VIAL IVPUSH SCH ×4 (02:33→22:26)
[2018-11-01 06:15] LABS: HEMATOCRIT 29.4 % (32.4-45.2); MCH 35.2 pg (25.7-33.7); MEAN CELL VOLUME 103.6 fl (80-96); MEAN PLT VOLUME 8.3 fl (7.5-11.1); PLATELET COUNT 175 K/MM3 (134-434); RBC 2.84 M/mm3 (3.60-5.2); RDW 23.6 % (11.6-15.6); WHITE BLOOD COUNT 9.9 K/mm3 (4.0-10.0)
[2018-11-01] MEDS: LEVOTHYROXINE NA 75 MCG TABLET (FP) PO SCH (06:25)
[2018-11-01] MEDS: HEPARIN NA (PORCINE) 5,000 UNITS/ML 1ML VIAL SQ SCH (06:25)
[2018-11-01 07:07] LABS: ALBUMIN 1.2 g/dl (3.4-5.0); BILIRUBIN,TOTAL 0.4 mg/dL (0.2-1); BLOOD UREA NITROGEN 23.4 mg/dL (7-18); CREATININE 1.3 mg/dL (0.55-1.3); POTASSIUM 3.2 mmol/L (3.5-5.1); TOT PROT 4.5 g/dl (6.4-8.2)
[2018-11-01 07:32] LABS: CALCIUM 6.6 mg/dL (8.5-10.1)
[2018-11-01] MEDS: VASOPRESSIN 50 UNITS in SODIUM CHLORIDE 97.5 ML IVPB SCH ×2 (09:00→22:48)
[2018-11-01] MEDS: AMINO ACIDS/PROTEIN HYDROLYS 30 ML LIQUID.PKT PO SCH ×2 (09:02→17:55)
[2018-11-01] MEDS: MUPIROCIN 2% TOPICAL OINTMENT FOR DECOLONIZATION NS SCH ×2 (09:03→22:27)
[2018-11-01] MEDS: PANTOPRAZOLE 40 MG TABLET (FP) PO SCH (09:03)
[2018-11-01] MEDS: ESCITALOPRAM OXALATE 10 MG TABLET (FP) PO SCH (09:03)
[2018-11-01] MEDS: LIPASE/PROTEASE/AMYLASE 36,000 UNIT CAPSULE PO SCH ×4 (09:06→17:51)
[2018-11-01] MEDS: METOCLOPRAMIDE HCL 10 MG TABLET (FP) PO SCH ×3 (09:06→17:55)
--- NOTE | 2018-11-01 09:19 | PN ---
Progress Note (short form) - Note Progress Note: NEUROLOGY FOLLOW-UP: Events reviewed. Patient examined. On Mepenem for e. coli UTI/urosepsis. On pressors. Off sedation. On SQ Heparin 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 EXAM: Lethargic but arousable and opens eyes, grimaces, to sternal pressure and right sided pinch. Semipurposeful movements and withdrawal right arm and leg. + shallow spontaneous respirations Eyes midline with blink to threat from right only. Corneals +/+ + Glabella and persistent right grasp. Rigid tone on right with spontaneous movements right leg Flaccid left hemiplegia. Areflexic. Plantars silent. No response to pinch on left. IMP: Severe right cerebral dysfunction c/w acute right MCA or ICA-territory CVA Probable underlying OMS Toxic-metabolic encephalopathy due to e. coli UTI/Urosepsis. SUGGEST: Anticoagulation if cardiology suspects embologenic arrhythmia. Continue antibiotics, fluids, BP support. Prognosis guarded. Thank you very much, Thomas Jessica MD
[2018-11-01] MEDS: POTASSIUM CHLORIDE 20 MEQ PREMIX IVPB 100 ML IVPB SCH ×2 (09:55→11:00)
[2018-11-01] MEDS ORDERED: VASOPRESSIN 20 UNITS/ML VIAL IV ONE (10:40)
--- NOTE | 2018-11-01 11:06 | PN ---
Progress Note, Physician History of Present Illness: POORLY RESPONSIVE ON VENTILATOR OFF SEDATION HYPOTENSIVE ON PRESSORS TEMPS, WBC IMPROVED AFEBRILE WBC WNL AZOTEMIA IMPROVED SPUTUM C/S PRESUMPTIVE MRSA - Current Medication List Current Medications: Active Medications Amino Acids (Prosource No Carb Liquid Pkt) 30 ml PO BID@0800,1730 [facility] Last Admin: 11/01/18 09:02 Dose: 30 ml Atorvastatin Calcium (Lipitor -) 40 mg PO HS [facility] Chlorhexidine Gluconate (Hibiclens For Decolonization -) 1 applic TP HS [facility] Last Admin: 10/31/18 22:23 Dose: 1 applic Escitalopram Oxalate (Lexapro -) 5 mg PO DAILY [facility] Last Admin: 11/01/18 09:03 Dose: 5 mg Heparin Sodium (Porcine) (Heparin -) 5,000 unit SQ TID [facility] Last Admin: 11/01/18 06:25 Dose: 5,000 unit Hydrocortisone Sodium Succinate (Solu-Cortef -) 50 mg IVPUSH Q6H-IV [facility] Last Admin: 11/01/18 09:02 Dose: 50 mg Meropenem 500 mg/ Dextrose 100 mls @ 200 mls/hr IVPB Q8H-IV [facility] Last Admin: 11/01/18 09:05 Dose: 200 mls/hr Dextrose/Sodium Chloride (D5-Ns -) 1,000 mls @ 100 mls/hr IV ASDIR [facility] Last Admin: 10/31/18 20:02 Dose: 100 mls/hr Diltiazem HCl 125 mg/ Sodium (Chloride) 125 mls @ 5 mls/hr IVPB TITR [facility]; Protocol Last Admin: 10/31/18 23:35 Dose: 5 mg/hr, 5 mls/hr Vasopressin 50 units/ Sodium (Chloride) 100 mls @ 4 mls/hr IVPB ASDIR [facility]; Protocol Last Admin: 10/31/18 23:35 Dose: 4 units/hr, 8 mls/hr Insulin Aspart (Novolog Vial Sliding Scale -) 1 vial SQ Q6HPO [facility]; Protocol Last Admin: 11/01/18 06:24 Dose: Not Given Levothyroxine Sodium (Synthroid -) 75 mcg PO DAILY@0700 [facility] Last Admin: 11/01/18 06:25 Dose: 75 mcg Metoclopramide HCl (Reglan -) 10 mg PO TIDAC [facility] Last Admin: 11/01/18 09:06 Dose: 10 mg Mupirocin (Bactroban Ointment (For Decolonization) -) 1 applic NS BID [facility] Stop: 11/04/18 09:59 Last Admin: 11/01/18 09:03 Dose: 1 applic Pancrelipase (Dyllan Palomares 36,000 Units Capsule) 1 cap PO TIDCM [facility] Last Admin: 11/01/18 09:13 Dose: Not Given Pantoprazole Sodium (Protonix -) 40 mg PO DAILY [facility] Last Admin: 11/01/18 09:03 Dose: 40 mg Senna (Senna -) 2 tab PO HS [facility] Last Admin: 10/31/18 22:24 Dose: Not Given - Objective Vital Signs: Vital Signs Temperature 97.8 F 11/01/18 02:00 Pulse Rate 64 11/01/18 10:00 Respiratory Rate 14 11/01/18 10:00 Blood Pressure 111/47 L 11/01/18 10:00 O2 Sat by Pulse Oximetry (%) 98 11/01/18 08:53 Constitutional: Yes: No Distress, Obese Cardiovascular: Yes: Regular Rate and Rhythm, S1, S2 Respiratory: Yes: Mechanically Ventilated Gastrointestinal: Yes: Normal Bowel Sounds, Soft, Abdomen, Obese. No: Tenderness Extremities: Yes: Other (PERIPH EXT COOL) Edema: Yes Labs: CBC, BMP 11/01/18 06:00 11/01/18 06:00 INR, PTT INR 1.27 (0.83-1.09) H 10/29/18 19:00 Assessment/Plan CARDIOGENIC V. SEPTIC SHOCK RESP FAILURE R/O ASP PNEUMONIA ? MRSA R/O CVA AZOTEMIA HX + ESBL SUBSTITUTE ZYVOX/ CEFTRIAXONE (?MRSA SPUTUM- VANCOMYCIN ALLERGY; DAPTO WITH POOR LUNG TISSUE PENETRATION)
--- NOTE | 2018-11-01 11:16 | PN ---
Progress Note, Physician Chief Complaint: INTUBATED UNRESPONSIVE EVENTS AND NOTES REVIEWED - Current Medication List Current Medications: Active Medications Amino Acids (Prosource No Carb Liquid Pkt) 30 ml PO BID@0800,1730 [facility] Last Admin: 11/01/18 09:02 Dose: 30 ml Atorvastatin Calcium (Lipitor -) 40 mg PO HS [facility] Chlorhexidine Gluconate (Hibiclens For Decolonization -) 1 applic TP HS [facility] Last Admin: 10/31/18 22:23 Dose: 1 applic Heparin Sodium (Porcine) (Heparin -) 5,000 unit SQ TID [facility] Last Admin: 11/01/18 06:25 Dose: 5,000 unit Hydrocortisone Sodium Succinate (Solu-Cortef -) 50 mg IVPUSH Q6H-IV [facility] Last Admin: 11/01/18 09:02 Dose: 50 mg Dextrose/Sodium Chloride (D5-Ns -) 1,000 mls @ 100 mls/hr IV ASDIR [facility] Last Admin: 10/31/18 20:02 Dose: 100 mls/hr Diltiazem HCl 125 mg/ Sodium (Chloride) 125 mls @ 5 mls/hr IVPB TITR [facility]; Protocol Last Admin: 10/31/18 23:35 Dose: 5 mg/hr, 5 mls/hr Vasopressin 50 units/ Sodium (Chloride) 100 mls @ 4 mls/hr IVPB [facility]; Protocol Last Admin: 11/01/18 09:00 Dose: 3 units/hr, 6 mls/hr Ceftriaxone Sodium (Ceftriaxone 2 Gm-D5w Bag) 2 gm in 50 mls @ 100 mls/hr IVPB DAILY [facility]; Protocol Insulin Aspart (Novolog Vial Sliding Scale -) 1 vial SQ Q6HPO [facility]; Protocol Last Admin: 11/01/18 06:24 Dose: Not Given Levothyroxine Sodium (Synthroid -) 75 mcg PO DAILY@0700 [facility] Last Admin: 11/01/18 06:25 Dose: 75 mcg Metoclopramide HCl (Reglan -) 10 mg PO TIDAC [facility] Last Admin: 11/01/18 09:06 Dose: 10 mg Mupirocin (Bactroban Ointment (For Decolonization) -) 1 applic NS BID [facility] Stop: 11/04/18 09:59 Last Admin: 11/01/18 09:03 Dose: 1 applic Pancrelipase (Creon Dr 36,000 Units Capsule) 1 cap PO TIDCM [facility] Last Admin: 11/01/18 09:13 Dose: Not Given Pantoprazole Sodium (Protonix -) 40 mg PO DAILY [facility] Last Admin: 11/01/18 09:03 Dose: 40 mg Senna (Senna -) 2 tab PO HS [facility] Last Admin: 10/31/18 22:24 Dose: Not Given - Objective Vital Signs: Vital Signs Temperature 98.0 F 11/01/18 10:00 Pulse Rate 64 11/01/18 10:00 Respiratory Rate 14 11/01/18 10:00 Blood Pressure 111/47 L 11/01/18 10:00 O2 Sat by Pulse Oximetry (%) 98 11/01/18 08:53 Constitutional: Yes: Moderate Distress Cardiovascular: Yes: Tachycardia Respiratory: Yes: Diminished, Mechanically Ventilated Gastrointestinal: Yes: Abdomen, Obese Genitourinary: Yes: Ricketts Present Edema: Yes Labs: CBC, BMP 11/01/18 06:00 11/01/18 06:00 INR, PTT INR 1.27 (0.83-1.09) H 10/29/18 19:00 Problem List - Problems (1) Respiratory failure Code(s): J96.90 - RESPIRATORY FAILURE, UNSP, UNSP W HYPOXIA OR HYPERCAPNIA (2) Altered mental status Code(s): R41.82 - ALTERED MENTAL STATUS, UNSPECIFIED Qualifiers: Altered mental status type: unspecified Qualified Code(s): R41.82 - Altered mental status, unspecified (3) Elevated troponin Code(s): R74.8 - ABNORMAL LEVELS OF OTHER SERUM ENZYMES (4) NSVT (nonsustained ventricular tachycardia) Code(s): I47.2 - VENTRICULAR TACHYCARDIA (5) Respiratory failure Code(s): J96.90 - RESPIRATORY FAILURE, UNSP, UNSP W HYPOXIA OR HYPERCAPNIA Qualifiers: Chronicity: acute Respiratory failure complication: hypoxia Qualified Code(s): J96.01 - Acute respiratory failure with hypoxia (6) SVT (supraventricular tachycardia) Code(s): I47.1 - SUPRAVENTRICULAR TACHYCARDIA (7) Acute diastolic heart failure Code(s): I50.31 - ACUTE DIASTOLIC (CONGESTIVE) HEART FAILURE (8) Acute metabolic encephalopathy Code(s): G93.41 - METABOLIC ENCEPHALOPATHY (9) Afib Code(s): I48.91 - UNSPECIFIED ATRIAL FIBRILLATION Qualifiers: Atrial fibrillation type: paroxysmal Qualified Code(s): I48.0 - Paroxysmal atrial fibrillation (10) COPD (chronic obstructive pulmonary disease) Code(s): J44.9 - CHRONIC OBSTRUCTIVE PULMONARY DISEASE, UNSPECIFIED (11) Morbid obesity with BMI of 40.0-44.9, adult Code(s): E66.01 - MORBID (SEVERE) OBESITY DUE TO EXCESS CALORIES; Z68.41 - BODY MASS INDEX (BMI) 40.0-44.9, ADULT (12) Type 2 diabetes mellitus with other circulatory complications Code(s): E11.59 - TYPE 2 DIABETES MELLITUS WITH OTH CIRCULATORY COMPLICATIONS (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
[2018-11-01] MEDS ORDERED: CEFTRIAXONE 2 GM-D5W BAG 2 GM/50 ML BAG IVPB SCH (11:30)
--- NOTE | 2018-11-01 11:56 | PN ---
Progress Note, Physician Chief Complaint: Pt remains intubated; moves right arm spontaneously; does not respond to verbal queries. History of Present Illness: The patient is an 88-year-old female, with a past medical history of HTN, s/p NSTEMI, DM, gastroparesis, CAD, afib (on eliquis), morbid obesity, PSVT, diastolic CHF (on Lasix), hypothyroidism, left heel ulcerated wound, presents to the ED with AMS today. Daughter states that she noted the patient to be altered at 9:30AM and was not eating or drinking. She also noted a possible RT- sided facial droop at 10AM. Daughter states the patient has experienced similar symptoms in the past. EMS was called around 4PM today. Upon arrival, the patient was noted to be hypotensive in the 60s and was intubated (7.5cm tube, 24cm at the lip). She also received 60mg of mady and 500mg of ketamine while in the field. HPI is limited due to patients clinical condition. Allergies: Vancomycin - Current Medication List Current Medications: Active Medications Amino Acids (Prosource No Carb Liquid Pkt) 30 ml PO BID@0800,1730 [facility] Last Admin: 11/01/18 09:02 Dose: 30 ml Atorvastatin Calcium (Lipitor -) 40 mg PO HS [facility] Chlorhexidine Gluconate (Hibiclens For Decolonization -) 1 applic TP HS [facility] Last Admin: 10/31/18 22:23 Dose: 1 applic Diltiazem HCl (Cardizem -) 30 mg PO TID [facility] Heparin Sodium (Porcine) (Heparin -) 5,000 unit SQ TID [facility] Last Admin: 11/01/18 06:25 Dose: 5,000 unit Hydrocortisone Sodium Succinate (Solu-Cortef -) 50 mg IVPUSH Q6H-IV [facility] Last Admin: 11/01/18 09:02 Dose: 50 mg Dextrose/Sodium Chloride (D5-Ns -) 1,000 mls @ 100 mls/hr IV ASDIR [facility] Last Admin: 10/31/18 20:02 Dose: 100 mls/hr Diltiazem HCl 125 mg/ Sodium (Chloride) 125 mls @ 5 mls/hr IVPB TITR [facility]; Protocol Last Admin: 10/31/18 23:35 Dose: 5 mg/hr, 5 mls/hr Vasopressin 50 units/ Sodium (Chloride) 100 mls @ 4 mls/hr IVPB ASDIR [facility]; Protocol Last Admin: 11/01/18 09:00 Dose: 3 units/hr, 6 mls/hr Ceftriaxone Sodium 2 gm/ (Dextrose) 100 mls @ 200 mls/hr IVPB DAILY [facility]; Protocol Insulin Aspart (Novolog Vial Sliding Scale -) 1 vial SQ Q6HPO [facility]; Protocol Last Admin: 11/01/18 06:24 Dose: Not Given Levothyroxine Sodium (Synthroid -) 75 mcg PO DAILY@0700 [facility] Last Admin: 11/01/18 06:25 Dose: 75 mcg Metoclopramide HCl (Reglan -) 10 mg PO TIDAC [facility] Last Admin: 11/01/18 09:06 Dose: 10 mg Mupirocin (Bactroban Ointment (For Decolonization) -) 1 applic NS BID [facility] Stop: 11/04/18 09:59 Last Admin: 11/01/18 09:03 Dose: 1 applic Pancrelipase (Dyllan Dr 36,000 Units Capsule) 1 cap PO TIDCM [facility] Last Admin: 11/01/18 09:13 Dose: Not Given Pantoprazole Sodium (Protonix -) 40 mg PO DAILY [facility] Last Admin: 11/01/18 09:03 Dose: 40 mg Senna (Senna -) 2 tab PO HS [facility] Last Admin: 10/31/18 22:24 Dose: Not Given - Objective Vital Signs: Vital Signs Temperature 98.0 F 11/01/18 10:00 Pulse Rate 64 11/01/18 10:00 Respiratory Rate 14 11/01/18 11:27 Blood Pressure 111/47 L 11/01/18 10:00 O2 Sat by Pulse Oximetry (%) 97 11/01/18 11:27 Constitutional: Yes: Obese, Other Eyes: Yes: WNL HENT: Yes: WNL Neck: Yes: Decreased ROM Cardiovascular: Yes: Tachycardia, Pulse Irregular Respiratory: Yes: Mechanically Ventilated Gastrointestinal: Yes: Soft, Abdomen, Obese Genitourinary: Yes: Ricketts Present. No: Anuria Breast(s): Yes: WNL Musculoskeletal: Yes: Muscle Weakness Extremities: Yes: Cool Edema: Yes Edema: LLE: 1+, RLE: 1+ Peripheral Pulses WNL: No Peripheral Pulses: Left Doralis Pedis: 1+, Right Dorsalis Pedis: 1+ Integumentary: Yes: Pressure Ulcer (left heel) Wound/Incision: Yes: Dressing Dry and Intact Neurological: Yes: Unresponsive Psychiatric: Yes: Other Labs: CBC, BMP 11/01/18 06:00 11/01/18 06:00 INR, PTT INR 1.27 (0.83-1.09) H 10/29/18 19:00 Abnormal Lab Results 11/02/18 11/02/18 11/02/18 01:10 05:00 05:00 RBC 2.86 L Hgb 10.1 L Hct 29.3 L MCV 102.6 H MCH 35.4 H RDW 23.2 H PTT (Actin FS) > 400.0 H > 400.0 H Sodium Potassium Anion Gap BUN Random Glucose Calcium Phosphorus 11/02/18 06:00 RBC Hgb Hct MCV MCH RDW PTT (Actin FS) Sodium 146 H Potassium 2.9 L* Anion Gap 7 L BUN 27.0 H Random Glucose 265 H Calcium 6.6 L* Phosphorus 2.2 L - ....Imaging Chest X-ray: Image Reviewed EKG: Image Reviewed Other: Image Reviewed (telemetry: AF with periods of RVR; episode of wide- complex tachycardia) Problem List - Problems (1) NSVT (nonsustained ventricular tachycardia) Code(s): I47.2 - VENTRICULAR TACHYCARDIA (2) SVT (supraventricular tachycardia) Code(s): I47.1 - SUPRAVENTRICULAR TACHYCARDIA (3) Elevated troponin Assessment/Plan: TNI 1.1 EKG: AF with RVR; r/o old anterior infarct ECHO: normal LVEF: mildly reduced RVEF (moderatey dilated RV). Rec: Pt started on PO diltiazem prior to discontinuing IV diltiazem. (Metoprolol, which is on pt's home med list, may be better to use in this case, given rise in TNI, hx NSTEMI). Systemic anticoagulation (IV heparin or Lovenox until considered safe to restart DOAC) if cleared by GI and hematology. Code(s): R74.8 - ABNORMAL LEVELS OF OTHER SERUM ENZYMES (4) Acute diastolic heart failure Code(s): I50.31 - ACUTE DIASTOLIC (CONGESTIVE) HEART FAILURE (5) Acute metabolic encephalopathy Code(s): G93.41 - METABOLIC ENCEPHALOPATHY (6) Acute renal failure Code(s): N17.9 - ACUTE KIDNEY FAILURE, UNSPECIFIED Qualifiers: Acute renal failure type: unspecified Qualified Code(s): N17.9 - Acute kidney failure, unspecified (7) Afib Assessment/Plan: Titrating off pressor; MAP >60 On diltiazem IV drip; will starrt PO diltiazem before the IV is stopped to less chance of return to rapid HR. Replee K, and keep 4.0-4.5. F/u Mg, and keep 2.0-2.4. Keep PO4 2.5-4.9. If cleared by hematology and neurology (CVA risk), change to systemic heaprin, or Lovenox a mg/kg BW bid, until INR 2-3 on warfarin (or start DOAC). Code(s): I48.91 - UNSPECIFIED ATRIAL FIBRILLATION Qualifiers: Atrial fibrillation type: paroxysmal Qualified Code(s): I48.0 - Paroxysmal atrial fibrillation Assessment/Plan CCU time spent: 40 minutes.
[2018-11-01] MEDS ORDERED: HEPARIN NA (PORCINE) 5,000 UNITS/ML 1ML VIAL IVPUSH PRN ×2 (12:28)
[2018-11-01] MEDS ORDERED: HEPARIN - 25,000 UNIT in SODIUM CHLORIDE 495 ML IV SCH (12:30)
[2018-11-01] MEDS: dilTIAZem HCL 30 MG TABLET (FP) PO SCH ×3 (12:44→22:48)
--- NOTE | 2018-11-01 12:56 | PN ---
Physical Exam: SUBJECTIVE: Patient seen and examined at the bedside. Intubated, making some purposeful movements on the R side, no movement appreciated on the L. No verbal response, no reaction to commands. Head CT showing large R sided stroke. Family was spoken to about risks and benefits of coagulation in the setting of patient' s irregular heart rate and stroke. Risks and benefits were explained about potential bleeding and family is agreeable to start anticoagulation. OBJECTIVE: Vital Signs Period Temp Pulse Resp BP Sys/Gu Pulse Ox Last 24 Hr 97.6 F-99.3 F 63-160 12-18 70-129/45-75 97-100 GENERAL: Intubated, no sedation. Making some conscious movements HEAD: Normal with no signs of trauma. EYES: PERRL, sclera anicteric, conjunctiva clear. NECK: Trachea midline, full range of motion, supple. LUNGS: Mechanical breath sounds, coarse breath sounds heard throughout. HEART: Irregular, S1, S2, no murmurs appreciated. ABDOMEN: Soft, nontender, nondistended, normoactive bowel sounds, no guarding, no rebound, no masses. EXTREMITIES: 1+ pulses, warm, well-perfused, no edema. NEUROLOGICAL: Withdraws to pain on the R, purposeful movement on R. No response on the L upper or lower extremities. + blink to threat on the R. PSYCH: Unable to assess. SKIN: Warm, dry, normal turgor. L heel ulcer noted, chronic Laboratory Results - last 24 hr 10/31/18 10/31/18 11/01/18 17:45 18:25 00:29 WBC RBC Hgb Hct MCV MCH MCHC RDW Plt Count MPV Sodium Potassium Chloride Carbon Dioxide Anion Gap BUN Creatinine Est GFR (CKD-EPI)AfAm Est GFR (CKD-EPI)NonAf POC Glucometer 48 97 115 Random Glucose Calcium Total Bilirubin AST ALT Alkaline Phosphatase Total Protein Albumin 11/01/18 11/01/18 11/01/18 06:00 06:00 06:23 WBC 9.9 RBC 2.84 L Hgb 10.0 L Hct 29.4 L MCV 103.6 H MCH 35.2 H MCHC 34.0 RDW 23.6 H Plt Count 175 MPV 8.3 Sodium 145 Potassium 3.2 L Chloride 106 Carbon Dioxide 33 H Anion Gap 7 L BUN 23.4 H Creatinine 1.3 Est GFR (CKD-EPI)AfAm 42.72 Est GFR (CKD-EPI)NonAf 36.86 POC Glucometer 153 Random Glucose 166 H Calcium 6.6 L* Total Bilirubin 0.4 AST 28 ALT 11 L Alkaline Phosphatase 58 Total Protein 4.5 L Albumin 1.2 L Active Medications Generic Name Dose Route Start Last Admin Trade Name Freq PRN Reason Stop Dose Admin Amino Acids 30 ml 10/30/18 08:00 11/01/18 09:02 Prosource No Carb Liquid Pkt PO 30 ml BID@0800,1730 [facility] Administration Atorvastatin Calcium 40 mg 11/01/18 08:22 Lipitor - PO HS [facility] Chlorhexidine Gluconate 1 applic 10/30/18 22:00 10/31/18 22:23 Hibiclens For Decolonization - TP 1 applic HS [facility] Administration Diltiazem HCl 30 mg 11/01/18 11:45 11/01/18 12:44 Cardizem - PO 30 mg TID [facility] Administration Heparin Sodium (Porcine) 1,000 unit 11/01/18 12:28 Heparin - IVPUSH PRN PRN Heparin Heparin Sodium (Porcine) 5,000 unit 11/01/18 12:28 Heparin - IVPUSH PRN PRN Heparin Hydrocortisone Sodium Succinate 50 mg 10/30/18 11:45 11/01/18 09:02 Solu-Cortef - IVPUSH 50 mg Q6H-IV [facility] Administration Dextrose/Sodium Chloride 1,000 mls @ 100 mls/hr 10/31/18 19:01 10/31/18 20:02 D5-Ns - IV 100 mls/hr ASDIR [facility] Administration Diltiazem HCl 125 mg/ Sodium 125 mls @ 5 mls/hr 10/31/18 23:45 10/31/18 23:35 Chloride IVPB 5 mg/hr TITR [facility] 5 mls/hr Administration Protocol 5 MG/HR Vasopressin 50 units/ Sodium 100 mls @ 4 mls/hr 10/31/18 23:45 11/01/18 09:00 Chloride IVPB 3 units/hr ASDIR [facility] 6 mls/hr Administration Protocol 2 UNITS/HR Ceftriaxone Sodium 2 gm/ 100 mls @ 200 mls/hr 11/01/18 11:30 Dextrose IVPB DAILY [facility] Protocol Heparin Sodium (Porcine) 25, 500 mls @ 20 mls/hr 11/01/18 12:30 000 unit/ Sodium Chloride IV TITR [facility] Protocol 1,000 UNIT/HR Insulin Aspart 1 vial 10/30/18 06:00 11/01/18 06:24 Novolog Vial Sliding Scale - SQ Not Given Q6HPO [facility] Protocol Levothyroxine Sodium 75 mcg 10/30/18 07:00 11/01/18 06:25 Synthroid - PO 75 mcg DAILY@0700 [facility] Administration Metoclopramide HCl 10 mg 10/30/18 07:00 11/01/18 12:43 Reglan - PO 10 mg TIDAC [facility] Administration Mupirocin 1 applic 10/30/18 10:00 11/01/18 09:03 Bactroban Ointment (For Decolonization) - NS 11/04/18 09:59 1 applic BID [facility] Administration Pancrelipase 1 cap 10/30/18 08:00 11/01/18 12:43 Crelalo Palomares 36,000 Units Capsule PO Not Given TIDCM [facility] Pantoprazole Sodium 40 mg 10/30/18 10:00 11/01/18 09:03 Protonix - PO 40 mg DAILY [facility] Administration Senna 2 tab 10/30/18 22:00 10/31/18 22:24 Senna - PO Not Given HS [facility] ASSESSMENT/PLAN: Kathleen Saini is an 82 year old female with a PMHx of HTN, T2DM, CAD (NSTEMI) , afib (not on AC due to prior bleed), HFpEF who was admitted to the ICU after developing respiratory failure likely secondary to distributive vs cardiogenic shock. Acute Respiratory Failure Heart Failure with Preserved Ejection Fraction Septic Shock from possible aspiration PNA GEOFF NEUROLOGIC - intubated and sedated - questionable history of facial droop - CT head showing small chronic R occipital cortical infarct, chronic ischemic changes, no acute pathology noted - repeat head CT showing large R sided nonhemorrhagic stroke, ? small thalamic infarct on the R - Dr. Fairbanks consulted, recs appreciated, start AC if indicated by cardiology CARDIOLOGY - tachycardia resolved with diltiazem push - diltiazem drip converted to PO 30mg tid - previous echo showing EF 60-65% - new echo showing EF 60%, mild dilation of R ventricle, reduced R systolic function, moderate to severe mitral regurg - continue vasopression and titrate down as tolerated - CVP monitoring and fluids as necessary - maintain MAP>65 - troponins 1.03-->1.21-->1.11-->0.71 - cardiology consulted, recs appreciated - continue home lipitor - hydrocortisone 50mg q6h - CHADS-VASC score of 8, 10.8% stroke risk per year in setting of afib/ irregular rhythm, high risk of further cardioembolic strokes - HAS-BLED Score of 3, high risk of bleeding - spoken to family regarding, starting anticoagulation with heparin drip protocol, risks and benefits were described, family aware and agreeable - PTT protocol RESPIRATORY - intubated - vent settings at rate 14, TV 450, FiO2 30, PEEP 5 - CXR showing decreased pleural changes from admission x-ray - CXR 11/01 showing decreased infiltrative changes - ABG showing pH 7.47, CO2 44.1, O2 82, HCO3 34, metabolic alkalosis RENAL - GEOFF likely from cardiogenic vs shock vs autonomic shock - continue fluids - hypernatremia noted, improved today to 145, receiving D5NS @ 100cc/hr, continue to monitor GASTROINTESTINAL - no acute issues GENITOURINARY - no acute issues INFECTIOUS DISEASE - septic shock likely from PNA (?aspiration) - lactic acid <2 - covered with ceftriaxone - UA showing 2+ LE, 9 bacteria, unlikely contributor to sepsis - blood cultures negative - sputum cultures showing presumptive MRSA - Dr. Cisse consulted, recs appreciated ENDOCRINE - BGM ACHS - ISS - Levemir 15 units - continue home synthroid HEMATOLOGY - leukocytosis likely from infection MUSCULOSKELETAL - no acute issues PSYCHIATRY - continue home escitalopram F/E/N - D5NS @ 100cc/hr - continue to monitor electrolytes and replete as necessary, hypokalemia and hypomagnesemia noted and repleted - Tube Feed Promote LINES - R IJ inserted 10/30 PROPHYLAXIS - heparin 5000 units subq tid CODE - full code - family considering DNR, will f/u - in the setting of patient's comorbidities, increased morbidity and mortality is expected, family was made aware of grave prognosis DISPO - continue to monitor in ICU CASE DISCUSSED WITH DR. RIZVI AND PRIMARY TEAM FRANKLIN MARQUIS DO - PGY-1 INTERNAL MEDICINE Visit type - Emergency Visit Emergency Visit: No - New Patient This patient is new to me today: No - Critical Care Critical Care patient: Yes Total Critical Care Time (in minutes): 40 Critical Care Statement: The care of this patient involved high complexity decision making to prevent further life threatening deterioration of the patient 's condition and/or to evaluate & treat vital organ system(s) failure or risk of failure.
[2018-11-01 13:19] LABS: MAGNESIUM 1.7 mg/dL (1.8-2.4)
--- NOTE | 2018-11-01 14:31 | PN ---
Teaching Attending Note Name of Resident: Enio Chavez ATTENDING PHYSICIAN STATEMENT I saw and evaluated the patient. I reviewed the resident's note and discussed the case with the resident. I agree with the resident's findings and plan as documented. SUBJECTIVE: Patient seen and examined in the ICU. Remains intubated, poorly responsive off sedation. Low dose Vasopressin for hemodynamic support. Rate controlled AFib. OBJECTIVE: Intake & Output 10/29/18 10/30/18 10/31/18 11/01/18 23:59 23:59 23:59 23:59 Intake Total 1532 2196 1556 Output Total 150 200 200 Balance 1382 1995 1356 Weight 240 lb 196 lb 6.4 oz 196 lb 215 lb 14.4 oz Last Vital Signs Temp Pulse Resp BP Pulse Ox 98.0 F 62 14 117/60 97 11/01/18 10:00 11/01/18 12:00 11/01/18 12:00 11/01/18 12:00 11/01/18 11:27 Active Medications Amino Acids (Prosource No Carb Liquid Pkt) 30 ml PO BID@0800,1730 [facility] Last Admin: 11/01/18 09:02 Dose: 30 ml Atorvastatin Calcium (Lipitor -) 40 mg PO HS [facility] Chlorhexidine Gluconate (Hibiclens For Decolonization -) 1 applic TP HS [facility] Last Admin: 10/31/18 22:23 Dose: 1 applic Diltiazem HCl (Cardizem -) 30 mg PO TID [facility] Last Admin: 11/01/18 14:10 Dose: Not Given Heparin Sodium (Porcine) (Heparin -) 1,000 unit IVPUSH PRN PRN PRN Reason: Heparin Heparin Sodium (Porcine) (Heparin -) 5,000 unit IVPUSH PRN PRN PRN Reason: Heparin Hydrocortisone Sodium Succinate (Solu-Cortef -) 50 mg IVPUSH Q6H-IV [facility] Last Admin: 11/01/18 09:02 Dose: 50 mg Dextrose/Sodium Chloride (D5-Ns -) 1,000 mls @ 100 mls/hr IV ASDIR [facility] Last Admin: 10/31/18 20:02 Dose: 100 mls/hr Diltiazem HCl 125 mg/ Sodium (Chloride) 125 mls @ 5 mls/hr IVPB TITR [facility]; Protocol Last Admin: 10/31/18 23:35 Dose: 5 mg/hr, 5 mls/hr Vasopressin 50 units/ Sodium (Chloride) 100 mls @ 4 mls/hr IVPB [facility]; Protocol Last Admin: 11/01/18 09:00 Dose: 3 units/hr, 6 mls/hr Ceftriaxone Sodium 2 gm/ (Dextrose) 100 mls @ 200 mls/hr IVPB DAILY [facility]; Protocol Heparin Sodium (Porcine) 25, (000 unit/ Sodium Chloride) 500 mls @ 20 mls/hr IV TITR [facility]; Protocol Last Admin: 11/01/18 13:56 Dose: 1,000 unit/hr, 20 mls/hr Insulin Aspart (Novolog Vial Sliding Scale -) 1 vial SQ Q6HPO [facility]; Protocol Last Admin: 11/01/18 12:52 Dose: 2 units Levothyroxine Sodium (Synthroid -) 75 mcg PO DAILY@0700 [facility] Last Admin: 11/01/18 06:25 Dose: 75 mcg Metoclopramide HCl (Reglan -) 10 mg PO TIDAC [facility] Last Admin: 11/01/18 12:43 Dose: 10 mg Mupirocin (Bactroban Ointment (For Decolonization) -) 1 applic NS BID [facility] Stop: 11/04/18 09:59 Last Admin: 11/01/18 09:03 Dose: 1 applic Pancrelipase (Creon Dr 36,000 Units Capsule) 1 cap PO TIDCM [facility] Last Admin: 11/01/18 12:43 Dose: Not Given Pantoprazole Sodium (Protonix -) 40 mg PO DAILY [facility] Last Admin: 11/01/18 09:03 Dose: 40 mg Senna (Senna -) 2 tab PO HS [facility] Last Admin: 10/31/18 22:24 Dose: Not Given Gen: intubated, poorly responsive Heart: irregular Lung: decreased breath sounds at the bases Abd: soft, nontender Ext: + edema Laboratory Results - last 24 hr 10/31/18 10/31/18 11/01/18 17:45 18:25 00:29 WBC RBC Hgb Hct MCV MCH MCHC RDW Plt Count MPV Sodium Potassium Chloride Carbon Dioxide Anion Gap BUN Creatinine Est GFR (CKD-EPI)AfAm Est GFR (CKD-EPI)NonAf POC Glucometer 48 97 115 Random Glucose Calcium Magnesium Total Bilirubin AST ALT Alkaline Phosphatase Total Protein Albumin 11/01/18 11/01/1819 06:00 06:00 06:23 WBC 9.9 RBC 2.84 L Hgb 10.0 L Hct 29.4 L MCV 103.6 H MCH 35.2 H MCHC 34.0 RDW 23.6 H Plt Count 175 MPV 8.3 Sodium 145 Potassium 3.2 L Chloride 106 Carbon Dioxide 33 H Anion Gap 7 L BUN 23.4 H Creatinine 1.3 Est GFR (CKD-EPI)AfAm 42.72 Est GFR (CKD-EPI)NonAf 36.86 POC Glucometer 153 Random Glucose 166 H Calcium 6.6 L* Magnesium 1.7 L Total Bilirubin 0.4 AST 28 ALT 11 L Alkaline Phosphatase 58 Total Protein 4.5 L Albumin 1.2 L 11/01/18 12:51 WBC RBC Hgb Hct MCV MCH MCHC RDW Plt Count MPV Sodium Potassium Chloride Carbon Dioxide Anion Gap BUN Creatinine Est GFR (CKD-EPI)AfAm Est GFR (CKD-EPI)NonAf POC Glucometer 192 Random Glucose Calcium Magnesium Total Bilirubin AST ALT Alkaline Phosphatase Total Protein Albumin ASSESSMENT AND PLAN: Acute Respiratory Failure r/o Aspiration Pneumonia UTI Suspected Septic Shock Atrial Fibrillation/Flutter LV Diastolic Dysfunction r/o CVA Acute Kidney Injury DM Hypothyroidism Hyperlipidemia - ABX per ID - Hydrocortisone - Taper pressors - Replete lytes - Rate control - Consideration for AC as there is a high clinical suspicion for cardio- embolic stroke - monitor off sedation to assess mental status - spontaneous breathing trials when mental status improved - enteral feeds - DVT/GI prophylaxis - continue ICU monitoring Dr Vaughan Critical care time spent in reviewing chart, evaluating patient and formulating plan 35 min
[2018-11-01] MEDS ORDERED: MAGNESIUM SULF 50% (8.12 MEQ/2 ML-1 GM VIAL) IVPB ONE (15:54)
[2018-11-01] MEDS: SENNOSIDES 8.6MG TABLET (FP) PO SCH (22:27)
[2018-11-01] MEDS: CHLORHEXIDINE GLUCONATE 4% CLEANSER FOR DECOLONIZATION TP SCH (22:27)
[2018-11-01] MEDS: ATORVASTATIN CA 40 MG TABLET (FP) PO SCH (22:27)
[2018-11-01] MEDS: DEXTROSE 5%-NORMAL SALINE 1,000 ML IV SCH (22:47)
[2018-11-02] MEDS: INSULIN SLIDING SCALE (NOVOLOG) 1 VIAL SQ SCH ×4 (00:54→18:33)
[2018-11-02] MEDS: HYDROCORTISONE SOD SUCCINATE 100 MG/2 ML VIAL IVPUSH SCH ×4 (03:31→21:39)
[2018-11-02] MEDS: dilTIAZem HCL 30 MG TABLET (FP) PO SCH ×3 (06:04→18:24)
[2018-11-02] MEDS: LEVOTHYROXINE NA 75 MCG TABLET (FP) PO SCH (06:04)
[2018-11-02] MEDS: METOCLOPRAMIDE HCL 10 MG TABLET (FP) PO SCH ×3 (06:06→17:40)
[2018-11-02] MEDS ORDERED: PT OWN MED DRAWER 7, Y5N ONE ×5 (06:06→21:42)
[2018-11-02 06:30] LABS: HEMOGLOBIN 10.1 GM/dL (10.7-15.3)
[2018-11-02] MEDS: VASOPRESSIN 50 UNITS in SODIUM CHLORIDE 97.5 ML IVPB SCH (06:38)
[2018-11-02 06:41] LABS: HEMATOCRIT 29.3 % (32.4-45.2); MCH 35.4 pg (25.7-33.7); MCHC 34.5 g/dl (32.0-36.0); MEAN CELL VOLUME 102.6 fl (80-96); MEAN PLT VOLUME 8.8 fl (7.5-11.1); RBC 2.86 M/mm3 (3.60-5.2); RDW 23.2 % (11.6-15.6)
[2018-11-02 06:52] LABS: PHOSPHOROUS 2.2 mg/dL (2.5-4.9)
[2018-11-02 07:00] LABS: POTASSIUM 2.9 mmol/L (3.5-5.1)
[2018-11-02 07:01] LABS: CALCIUM 6.6 mg/dL (8.5-10.1)
[2018-11-02] MEDS: POTASSIUM CHLORIDE 20 MEQ PREMIX IVPB 100 ML IVPB SCH ×2 (07:44→10:31)
[2018-11-02] MEDS ORDERED: DEXTROSE 5%-WATER 100 ML IVPB ONE (08:17)
[2018-11-02] MEDS: LIPASE/PROTEASE/AMYLASE 36,000 UNIT CAPSULE PO SCH ×3 (08:19→17:40)
[2018-11-02 08:58] LABS: PLATELET COUNT 176 K/MM3 (134-434)
[2018-11-02] MEDS ORDERED: POTASSIUM PHOSPHATE 30 MM in DEXTROSE 5%-WATER - 250 ML IVPB ONE (09:00)
[2018-11-02] MEDS: AMINO ACIDS/PROTEIN HYDROLYS 30 ML LIQUID.PKT PO SCH ×2 (09:50→17:40)
[2018-11-02] MEDS: CEFTRIAXONE 2 GM in DEXTROSE 5%-WATER 100 ML IVPB SCH (09:50)
[2018-11-02] MEDS: PANTOPRAZOLE 40 MG TABLET (FP) PO SCH (09:51)
[2018-11-02] MEDS: MUPIROCIN 2% TOPICAL OINTMENT FOR DECOLONIZATION NS SCH ×2 (10:31→21:39)
--- NOTE | 2018-11-02 11:22 | PN ---
Teaching Attending Note Name of Resident: Enio Chavez ATTENDING PHYSICIAN STATEMENT I saw and evaluated the patient. I reviewed the resident's note and discussed the case with the resident. I agree with the resident's findings and plan as documented. SUBJECTIVE: Patient seen and examined in the ICU. Remains intubated, more responsive today and able to intermittently follow some simple commands. Low dose Vasopressin for hemodynamic support. Rate controlled AFib. OBJECTIVE: Intake & Output 10/30/18 10/31/18 11/01/18 11/02/18 23:59 23:59 23:59 23:59 Intake Total 1532 2196 3434 1975.7 Output Total 150 200 450 100 Balance 1382 1996 2984 1875.7 Weight 196 lb 6.4 oz 196 lb 215 lb 14.4 oz 201 lb 4.8 oz Last Vital Signs Temp Pulse Resp BP Pulse Ox 98.8 F 88 14 96/53 L 100 11/02/18 06:00 11/02/18 08:00 11/02/18 08:17 11/02/18 08:00 11/02/18 04:33 Active Medications Amino Acids (Prosource No Carb Liquid Pkt) 30 ml PO BID@0800,1730 [facility] Last Admin: 11/02/18 09:50 Dose: 30 ml Atorvastatin Calcium (Lipitor -) 40 mg PO HS [facility] Last Admin: 11/01/18 22:27 Dose: 40 mg Chlorhexidine Gluconate (Hibiclens For Decolonization -) 1 applic TP HS [facility] Last Admin: 11/01/18 22:27 Dose: 1 applic Diltiazem HCl (Cardizem -) 30 mg PO Q6HPO [facility] Heparin Sodium (Porcine) (Heparin -) 1,000 unit IVPUSH PRN PRN PRN Reason: Heparin Heparin Sodium (Porcine) (Heparin -) 5,000 unit IVPUSH PRN PRN PRN Reason: Heparin Hydrocortisone Sodium Succinate (Solu-Cortef -) 50 mg IVPUSH Q6H-IV [facility] Last Admin: 11/02/18 09:52 Dose: 50 mg Dextrose/Sodium Chloride (D5-Ns -) 1,000 mls @ 100 mls/hr IV ASDIR [facility] Last Admin: 11/01/18 22:47 Dose: Not Given Vasopressin 50 units/ Sodium (Chloride) 100 mls @ 4 mls/hr IVPB ASDIR [facility]; Protocol Last Titration: 11/02/18 08:00 Dose: 2 units/hr, 4 mls/hr Ceftriaxone Sodium 2 gm/ (Dextrose) 100 mls @ 200 mls/hr IVPB DAILY [facility]; Protocol Last Admin: 11/02/18 09:50 Dose: 200 mls/hr Heparin Sodium (Porcine) 25, (000 unit/ Sodium Chloride) 500 mls @ 20 mls/hr IV TITR [facility]; Protocol Last Titration: 11/02/18 08:30 Dose: 0 unit/hr, 0 mls/hr Potassium Phosphate 30 mm/ (Dextrose) 260 mls @ 62.5 mls/hr IVPB ONCE ONE Stop: 11/02/18 13:09 Last Admin: 11/02/18 09:50 Dose: 62.5 mls/hr Insulin Aspart (Novolog Vial Sliding Scale -) 1 vial SQ Q6HPO [facility]; Protocol Last Admin: 11/02/18 06:18 Dose: 4 units Levothyroxine Sodium (Synthroid -) 75 mcg PO DAILY@0700 [facility] Last Admin: 11/02/18 06:04 Dose: 75 mcg Metoclopramide HCl (Reglan -) 10 mg PO TIDAC [facility] Last Admin: 11/02/18 06:06 Dose: 10 mg Mupirocin (Bactroban Ointment (For Decolonization) -) 1 applic NS BID [facility] Stop: 11/04/18 09:59 Last Admin: 11/02/18 10:31 Dose: 1 applic Pancrelipase (Creon Dr 36,000 Units Capsule) 1 cap PO TIDCM [facility] Last Admin: 11/02/18 08:19 Dose: 1 cap Pantoprazole Sodium (Protonix -) 40 mg PO DAILY [facility] Last Admin: 11/02/18 09:51 Dose: 40 mg Senna (Senna -) 2 tab PO HS [facility] Last Admin: 11/01/18 22:27 Dose: 2 tab Gen: intubated, lethargic but arousable Heart: irregular Lung: decreased breath sounds at the bases Abd: soft, nontender Ext: + edema Laboratory Results - last 24 hr 11/01/18 11/01/18 11/01/18 06:00 12:51 17:59 WBC RBC Hgb Hct MCV MCH MCHC RDW Plt Count MPV PTT (Actin FS) Sodium 145 Potassium 3.2 L Chloride 106 Carbon Dioxide 33 H Anion Gap 7 L BUN 23.4 H Creatinine 1.3 Est GFR (CKD-EPI)AfAm 42.72 Est GFR (CKD-EPI)NonAf 36.86 POC Glucometer 192 157 Random Glucose 166 H Calcium 6.6 L* Phosphorus Magnesium 1.7 L Total Bilirubin 0.4 AST 28 ALT 11 L Alkaline Phosphatase 58 Total Protein 4.5 L Albumin 1.2 L 11/01/18 11/02/18 11/02/18 20:30 00:52 01:10 WBC RBC Hgb Hct MCV MCH MCHC RDW Plt Count MPV PTT (Actin FS) Cancelled > 400.0 H Sodium Potassium Chloride Carbon Dioxide Anion Gap BUN Creatinine Est GFR (CKD-EPI)AfAm Est GFR (CKD-EPI)NonAf POC Glucometer 199 Random Glucose Calcium Phosphorus Magnesium Total Bilirubin AST ALT Alkaline Phosphatase Total Protein Albumin 11/02/18 11/02/18 11/02/18 05:00 05:00 06:00 WBC 9.0 RBC 2.86 L Hgb 10.1 L Hct 29.3 L MCV 102.6 H MCH 35.4 H MCHC 34.5 RDW 23.2 H Plt Count 176 MPV 8.8 PTT (Actin FS) > 400.0 H Sodium 146 H Potassium 2.9 L* Chloride 107 Carbon Dioxide 31 Anion Gap 7 L BUN 27.0 H Creatinine 1.0 Est GFR (CKD-EPI)AfAm 58.66 Est GFR (CKD-EPI)NonAf 50.61 POC Glucometer Random Glucose 265 H Calcium 6.6 L* Phosphorus 2.2 L Magnesium 2.0 Total Bilirubin AST ALT Alkaline Phosphatase Total Protein Albumin 11/02/18 06:14 WBC RBC Hgb Hct MCV MCH MCHC RDW Plt Count MPV PTT (Actin FS) Sodium Potassium Chloride Carbon Dioxide Anion Gap BUN Creatinine Est GFR (CKD-EPI)AfAm Est GFR (CKD-EPI)NonAf POC Glucometer 250 Random Glucose Calcium Phosphorus Magnesium Total Bilirubin AST ALT Alkaline Phosphatase Total Protein Albumin ASSESSMENT AND PLAN: Acute Respiratory Failure r/o Aspiration Pneumonia UTI Suspected Septic Shock Atrial Fibrillation/Flutter LV Diastolic Dysfunction r/o CVA Acute Kidney Injury DM Hypothyroidism Hyperlipidemia - ABX per ID - Hydrocortisone - Taper pressors - Replete lytes - Rate control - AC with Lovenox as there is a high clinical suspicion for cardio-embolic stroke - Daily sedation vacations to assess mental status - spontaneous breathing trials when mental status improved - enteral feeds - DVT/GI prophylaxis - continue ICU monitoring Dr Vaughan Critical care time spent in reviewing chart, evaluating patient and formulating plan 35 min
--- NOTE | 2018-11-02 13:06 | PN ---
Progress Note, Physician History of Present Illness: POORLY RESPONSIVE ON VENTILATOR OFF SEDATION HYPOTENSIVE ON LOW DOSE PRESSORS TEMPS, WBC IMPROVED AFEBRILE WBC WNL AZOTEMIA IMPROVED SPUTUM C/S MRSA - Current Medication List Current Medications: Active Medications Amino Acids (Prosource No Carb Liquid Pkt) 30 ml PO BID@0800,1730 [facility] Last Admin: 11/02/18 09:50 Dose: 30 ml Atorvastatin Calcium (Lipitor -) 40 mg PO HS [facility] Last Admin: 11/01/18 22:27 Dose: 40 mg Chlorhexidine Gluconate (Hibiclens For Decolonization -) 1 applic TP HS [facility] Last Admin: 11/01/18 22:27 Dose: 1 applic Diltiazem HCl (Cardizem -) 30 mg PO Q6HPO [facility] Enoxaparin Sodium (Lovenox -) 90 mg SQ BID [facility] Hydrocortisone Sodium Succinate (Solu-Cortef -) 50 mg IVPUSH Q6H-IV [facility] Last Admin: 11/02/18 09:52 Dose: 50 mg Dextrose/Sodium Chloride (D5-Ns -) 1,000 mls @ 100 mls/hr IV [facility] Last Admin: 11/01/18 22:47 Dose: Not Given Vasopressin 50 units/ Sodium (Chloride) 100 mls @ 4 mls/hr IVPB [facility]; Protocol Last Titration: 11/02/18 08:00 Dose: 2 units/hr, 4 mls/hr Ceftriaxone Sodium 2 gm/ (Dextrose) 100 mls @ 200 mls/hr IVPB DAILY [facility]; Protocol Last Admin: 11/02/18 09:50 Dose: 200 mls/hr Potassium Phosphate 30 mm/ (Dextrose) 260 mls @ 62.5 mls/hr IVPB ONCE ONE Stop: 11/02/18 13:09 Last Admin: 11/02/18 09:50 Dose: 62.5 mls/hr Insulin Aspart (Novolog Vial Sliding Scale -) 1 vial SQ Q6HPO [facility]; Protocol Last Admin: 11/02/18 06:18 Dose: 4 units Levothyroxine Sodium (Synthroid -) 75 mcg PO DAILY@0700 [facility] Last Admin: 11/02/18 06:04 Dose: 75 mcg Metoclopramide HCl (Reglan -) 10 mg PO TIDAC [facility] Last Admin: 11/02/18 06:06 Dose: 10 mg Mupirocin (Bactroban Ointment (For Decolonization) -) 1 applic NS BID [facility] Stop: 11/04/18 09:59 Last Admin: 11/02/18 10:31 Dose: 1 applic Pancrelipase (Creon Dr 36,000 Units Capsule) 1 cap PO TIDCM [facility] Last Admin: 11/02/18 08:19 Dose: 1 cap Pantoprazole Sodium (Protonix -) 40 mg PO DAILY [facility] Last Admin: 11/02/18 09:51 Dose: 40 mg Senna (Senna -) 2 tab PO HS [facility] Last Admin: 11/01/18 22:27 Dose: 2 tab - Objective Vital Signs: Vital Signs Temperature 98.8 F 11/02/18 06:00 Pulse Rate 88 11/02/18 08:00 Respiratory Rate 14 11/02/18 08:17 Blood Pressure 96/53 L 11/02/18 08:00 O2 Sat by Pulse Oximetry (%) 100 11/02/18 04:33 Constitutional: Yes: No Distress, Obese Cardiovascular: Yes: Regular Rate and Rhythm, S1, S2 Respiratory: Yes: Mechanically Ventilated Gastrointestinal: Yes: Normal Bowel Sounds, Soft. No: Tenderness Extremities: Yes: Other (+ EDEMA, COOLNESS DISTAL EXT) Labs: CBC, BMP 11/02/18 05:00 11/02/18 06:00 INR, PTT INR 1.27 (0.83-1.09) H 10/29/18 19:00 Assessment/Plan CARDIOGENIC V. SEPTIC SHOCK RESP FAILURE R/O ASP PNEUMONIA + SPUTUM MRSA R/O CVA AZOTEMIA IMPROVED HX + ESBL CONTINUE ZYVOX/ CEFTRIAXONE (?MRSA SPUTUM- VANCOMYCIN ALLERGY; DAPTO WITH POOR LUNG TISSUE PENETRATION)
--- NOTE | 2018-11-02 13:45 | PN ---
Physical Exam: SUBJECTIVE: Patient seen and examined at the bedside. This morning was more alert, was able to follow some simple commands and respond to yes/no questions with head nods. Will attempt wean trials short term as patient's cardiac status is volatile. OBJECTIVE: Vital Signs Period Temp Pulse Resp BP Sys/Gu Pulse Ox Last 24 Hr 97.6 F-98.8 F 57-108 14-15 78-111/47-73 100-100 GENERAL: Intubated, no sedation. Making some conscious movements and responsive to basic commands and some questions. HEAD: Normal with no signs of trauma. EYES: PERRL, sclera anicteric, conjunctiva clear. NECK: Trachea midline, full range of motion, supple. LUNGS: Mechanical breath sounds, coarse breath sounds heard throughout. HEART: Irregular, tachycardic, S1, S2, no murmurs appreciated. ABDOMEN: Soft, nontender, nondistended, normoactive bowel sounds, no guarding, no rebound, no masses. EXTREMITIES: 1+ pulses, warm, well-perfused, no edema. NEUROLOGICAL: Withdraws to pain on the R, purposeful movement on R. Minimal response on the L upper and lower extremities. + blink to threat on the R. PSYCH: Unable to assess. SKIN: Warm, dry, normal turgor. L heel ulcer noted, chronic Laboratory Results - last 24 hr 11/01/18 11/01/18 11/02/18 17:59 20:30 00:52 WBC RBC Hgb Hct MCV MCH MCHC RDW Plt Count MPV PTT (Actin FS) Cancelled Sodium Potassium Chloride Carbon Dioxide Anion Gap BUN Creatinine Est GFR (CKD-EPI)AfAm Est GFR (CKD-EPI)NonAf POC Glucometer 157 199 Random Glucose Calcium Phosphorus Magnesium 11/02/18 11/02/18 11/02/18 01:10 05:00 05:00 WBC 9.0 RBC 2.86 L Hgb 10.1 L Hct 29.3 L MCV 102.6 H MCH 35.4 H MCHC 34.5 RDW 23.2 H Plt Count 176 MPV 8.8 PTT (Actin FS) > 400.0 H > 400.0 H Sodium Potassium Chloride Carbon Dioxide Anion Gap BUN Creatinine Est GFR (CKD-EPI)AfAm Est GFR (CKD-EPI)NonAf POC Glucometer Random Glucose Calcium Phosphorus Magnesium 11/02/18 11/02/18 06:00 06:14 WBC RBC Hgb Hct MCV MCH MCHC RDW Plt Count MPV PTT (Actin FS) Sodium 146 H Potassium 2.9 L* Chloride 107 Carbon Dioxide 31 Anion Gap 7 L BUN 27.0 H Creatinine 1.0 Est GFR (CKD-EPI)AfAm 58.66 Est GFR (CKD-EPI)NonAf 50.61 POC Glucometer 250 Random Glucose 265 H Calcium 6.6 L* Phosphorus 2.2 L Magnesium 2.0 Active Medications Generic Name Dose Route Start Last Admin Trade Name Freq PRN Reason Stop Dose Admin Amino Acids 30 ml 10/30/18 08:00 11/02/18 09:50 Prosource No Carb Liquid Pkt PO 30 ml BID@0800,1730 LEXI Administration Atorvastatin Calcium 40 mg 11/01/18 08:22 11/01/18 22:27 Lipitor - PO 40 mg HS LEXI Administration Chlorhexidine Gluconate 1 applic 10/30/18 22:00 11/01/18 22:27 Hibiclens For Decolonization - TP 1 applic HS LEXI Administration Diltiazem HCl 30 mg 11/02/18 12:00 Cardizem - PO Q6HPO LEXI Enoxaparin Sodium 90 mg 11/02/18 12:00 Lovenox - SQ BID LEXI Hydrocortisone Sodium Succinate 50 mg 10/30/18 11:45 11/02/18 09:52 Solu-Cortef - IVPUSH 50 mg Q6H-IV LEXI Administration Dextrose/Sodium Chloride 1,000 mls @ 100 mls/hr 10/31/18 19:01 11/01/18 22:47 D5-Ns - IV Not Given ASDIR LEXI Vasopressin 50 units/ Sodium 100 mls @ 4 mls/hr 10/31/18 23:45 11/02/18 08:00 Chloride IVPB 2 units/hr ASDIR LEXI 4 mls/hr Titration Protocol 2 UNITS/HR Ceftriaxone Sodium 2 gm/ 100 mls @ 200 mls/hr 11/01/18 11:30 11/02/18 09:50 Dextrose IVPB 200 mls/hr DAILY LEXI Administration Protocol Clindamycin Phosphate 600 mg in 50 mls @ 100 mls/hr 11/02/18 13:15 Cleocin 600 Mg Premix Ivpb - IVPB Q8H-IV LEXI Protocol Insulin Aspart 1 vial 10/30/18 06:00 11/02/18 06:18 Novolog Vial Sliding Scale - SQ 4 units Q6HPO LEXI Administration Protocol Levothyroxine Sodium 75 mcg 10/30/18 07:00 11/02/18 06:04 Synthroid - PO 75 mcg DAILY@0700 LEXI Administration Metoclopramide HCl 10 mg 10/30/18 07:00 11/02/18 06:06 Reglan - PO 10 mg TIDAC LEXI Administration Mupirocin 1 applic 10/30/18 10:00 11/02/18 10:31 Bactroban Ointment (For Decolonization) - NS 11/04/18 09:59 1 applic BID LEXI Administration Pancrelipase 1 cap 10/30/18 08:00 11/02/18 08:19 Dyllan Palomares 36,000 Units Capsule PO 1 cap TIDCM LEXI Administration Pantoprazole Sodium 40 mg 10/30/18 10:00 11/02/18 09:51 Protonix - PO 40 mg DAILY LEXI Administration Senna 2 tab 10/30/18 22:00 11/01/18 22:27 Senna - PO 2 tab HS LEXI Administration ASSESSMENT/PLAN: Kathleen Saini is an 82 year old female with a PMHx of HTN, T2DM, CAD (NSTEMI) , afib (not on AC due to prior bleed), HFpEF who was admitted to the ICU after developing respiratory failure likely secondary to distributive vs cardiogenic shock. Acute Respiratory Failure Heart Failure with Preserved Ejection Fraction Septic Shock from possible aspiration PNA A fib with RVR GEOFF R sided Ischemic Stroke Hypothyroid HLD NEUROLOGIC - intubated and sedated - questionable history of facial droop - CT head showing small chronic R occipital cortical infarct, chronic ischemic changes, no acute pathology noted - repeat head CT showing large R sided nonhemorrhagic stroke, ? small thalamic infarct on the R - Dr. Fairbanks consulted, recs appreciated, start AC if indicated by cardiology CARDIOLOGY - tachycardia resolved with diltiazem push - diltiazem drip resumed due to patient's NPO status s/p extubation - previous echo showing EF 60-65% - new echo showing EF 60%, mild dilation of R ventricle, reduced R systolic function, moderate to severe mitral regurg - titrate vasopressin down as tolerated - CVP monitoring and fluids as necessary - maintain MAP>65 - troponins 1.03-->1.21-->1.11-->0.71 - cardiology consulted, recs appreciated - continue home lipitor - hydrocortisone 50mg q6h - CHADS-VASC score of 8, 10.8% stroke risk per year in setting of afib/ irregular rhythm, high risk of further cardioembolic strokes - HAS-BLED Score of 3, high risk of bleeding - spoken to family regarding starting anticoagulation with heparin drip protocol , risks and benefits were described, family aware and agreeable - PTT supratherapeutic, decision to switch to Lovenox sq RESPIRATORY - extubated, on high-flow settings 50L, 35% - CXR showing decreased pleural changes from admission x-ray - ABG showing pH 7.47, CO2 44.1, O2 82, HCO3 34, metabolic alkalosis RENAL - GEOFF likely from cardiogenic vs shock vs autonomic shock - continue fluids - hypernatremia noted, today 146, receiving D5NS @ 100cc/hr, continue to monitor GASTROINTESTINAL - no acute issues GENITOURINARY - no acute issues INFECTIOUS DISEASE - septic shock likely from PNA (?aspiration) - lactic acid <2 - covered with clindamycin and ceftriaxone - UA showing 2+ LE, 9 bacteria, unlikely contributor to sepsis - blood cultures negative - sputum cultures showing presumptive MRSA - Dr. Cisse consulted, recs appreciated ENDOCRINE - BGM ACHS - ISS - Levemir 15 units - continue home synthroid HEMATOLOGY - leukocytosis likely from infection MUSCULOSKELETAL - no acute issues PSYCHIATRY - continue home escitalopram F/E/N - D5NS @ 100cc/hr - continue to monitor electrolytes and replete as necessary, hypokalemia and hypomagnesemia noted and repleted - NPO pending speech and swallow, s/p stroke LINES - R IJ inserted 10/30 PROPHYLAXIS - Lovenox 90mg bid CODE - full code - in the setting of patient's comorbidities, increased morbidity and mortality is expected, family was made aware of grave prognosis DISPO - continue to monitor in ICU CASE DISCUSSED WITH DR. RIZVI AND PRIMARY TEAM FRANKLIN MARQUIS DO - PGY-1 INTERNAL MEDICINE Visit type - Emergency Visit Emergency Visit: No - New Patient This patient is new to me today: No - Critical Care Critical Care patient: Yes Total Critical Care Time (in minutes): 38 Critical Care Statement: The care of this patient involved high complexity decision making to prevent further life threatening deterioration of the patient 's condition and/or to evaluate & treat vital organ system(s) failure or risk of failure.
--- NOTE | 2018-11-02 14:12 | PN ---
Progress Note, Physician Chief Complaint: Septic Shock CVA-R sided Ischemic Acute Respiratory Failure Afib with RVR History of Present Illness: Previous notes and events reviewed mechanically ventilated /30/08 more responsive today--responds when name called and can follow commands wiggling of toes noted to L foot when sensation to extremity applied - Current Medication List Current Medications: Active Medications Amino Acids (Prosource No Carb Liquid Pkt) 30 ml PO BID@0800,1730 [facility] Last Admin: 11/02/18 09:50 Dose: 30 ml Atorvastatin Calcium (Lipitor -) 40 mg PO HS LEXI Last Admin: 11/01/18 22:27 Dose: 40 mg Chlorhexidine Gluconate (Hibiclens For Decolonization -) 1 applic TP HS LEXI Last Admin: 11/01/18 22:27 Dose: 1 applic Diltiazem HCl (Cardizem -) 30 mg PO Q6HPO LEXI Enoxaparin Sodium (Lovenox -) 90 mg SQ BID LEXI Hydrocortisone Sodium Succinate (Solu-Cortef -) 50 mg IVPUSH Q6H-IV LEXI Last Admin: 11/02/18 09:52 Dose: 50 mg Dextrose/Sodium Chloride (D5-Ns -) 1,000 mls @ 100 mls/hr IV ASDIR LEXI Last Admin: 11/01/18 22:47 Dose: Not Given Vasopressin 50 units/ Sodium (Chloride) 100 mls @ 4 mls/hr IVPB ASDIR LEXI; Protocol Last Titration: 11/02/18 08:00 Dose: 2 units/hr, 4 mls/hr Ceftriaxone Sodium 2 gm/ (Dextrose) 100 mls @ 200 mls/hr IVPB DAILY [facility]; Protocol Last Admin: 11/02/18 09:50 Dose: 200 mls/hr Clindamycin Phosphate (Cleocin 600 Mg Premix Ivpb -) 600 mg in 50 mls @ 100 mls /hr IVPB Q8H-IV LEXI; Protocol Insulin Aspart (Novolog Vial Sliding Scale -) 1 vial SQ Q6HPO [facility]; Protocol Last Admin: 11/02/18 06:18 Dose: 4 units Levothyroxine Sodium (Synthroid -) 75 mcg PO DAILY@0700 [facility] Last Admin: 11/02/18 06:04 Dose: 75 mcg Metoclopramide HCl (Reglan -) 10 mg PO TIDAC [facility] Last Admin: 11/02/18 06:06 Dose: 10 mg Mupirocin (Bactroban Ointment (For Decolonization) -) 1 applic NS BID [facility] Stop: 11/04/18 09:59 Last Admin: 11/02/18 10:31 Dose: 1 applic Pancrelipase (Creon Dr 36,000 Units Capsule) 1 cap PO TIDCM [facility] Last Admin: 11/02/18 08:19 Dose: 1 cap Pantoprazole Sodium (Protonix -) 40 mg PO DAILY [facility] Last Admin: 11/02/18 09:51 Dose: 40 mg Senna (Senna -) 2 tab PO HS [facility] Last Admin: 11/01/18 22:27 Dose: 2 tab - Objective Vital Signs: Vital Signs Temperature 98.8 F 11/02/18 06:00 Pulse Rate 88 11/02/18 08:00 Respiratory Rate 14 11/02/18 12:00 Blood Pressure 96/53 L 11/02/18 08:00 O2 Sat by Pulse Oximetry (%) 100 11/02/18 04:33 Constitutional: Yes: Obese, Other (lethargic) Eyes: Yes: Conjunctiva Clear HENT: Yes: Atraumatic Cardiovascular: Yes: Tachycardia, Pulse Irregular Respiratory: Yes: Regular, CTA Bilaterally Gastrointestinal: Yes: Normal Bowel Sounds, Soft, Abdomen, Obese Genitourinary: Yes: Ricketts Present Musculoskeletal: Yes: Muscle Weakness (L side upper and lower) Extremities: Yes: WNL Edema: Yes (b/l upper/lower extremity) Neurological: Yes: Lethargy, Weakness (l side) Labs: CBC, BMP 11/02/18 05:00 11/02/18 06:00 INR, PTT INR 1.27 (0.83-1.09) H 10/29/18 19:00 Microbiology 10/30/18 23:25 Sputum - Endotrachea Suction/Ventilator Gram Stain - Final 10/30/18 23:25 Sputum - Endotrachea Suction/Ventilator Sputum Culture - Final S Aureus 10/29/18 19:00 Blood - Peripheral Venous Blood Culture - Preliminary NO GROWTH OBTAINED AFTER 72 HOURS, INCUBATION TO CONTINUE FOR 2 DAYS. 10/29/18 19:00 Blood - Peripheral Venous Blood Culture - Preliminary NO GROWTH OBTAINED AFTER 72 HOURS, INCUBATION TO CONTINUE FOR 2 DAYS. 10/30/18 14:43 Urine For Antigen Detection Legionella Antigen - Final 10/30/18 14:43 Urine For Antigen Detection Streptococcus pneumoniae Antigen (M - Final Problem List - Problems (1) CVA (cerebral vascular accident) Assessment/Plan: -Neurology on board -Head CT scan shows large acute nonhemorrhagic right frontal, temporal, and parietal cortical infarct, involvement of the right frontoparietal coronal radiata Code(s): I63.9 - CEREBRAL INFARCTION, UNSPECIFIED (2) Elevated troponin Assessment/Plan: -cardiology on board -troponin trending down--from 1.03 on admission to most recent 0.71 Code(s): R74.8 - ABNORMAL LEVELS OF OTHER SERUM ENZYMES (3) Respiratory failure Assessment/Plan: -Mechanically ventilated /30/08 -Pulm on board -CXR shows reveals decreasing infiltrative changes at bases -CXR on admission shows progressive congestive findings with bilateral pleural effusions -keep SpO2 >90% Code(s): J96.90 - RESPIRATORY FAILURE, UNSP, UNSP W HYPOXIA OR HYPERCAPNIA (4) Acute diastolic heart failure Assessment/Plan: -cardiology on board -Echo with EF 60% -1L fluid restriction -daily weights -BNP 33328 Code(s): I50.31 - ACUTE DIASTOLIC (CONGESTIVE) HEART FAILURE (5) Acute metabolic encephalopathy Assessment/Plan: -ID on board -no leukocytosis -afebrile -BC neg -Sputum culture presum MRSA -Ceftriaxone, Clindamycin -LA 1.9 Code(s): G93.41 - METABOLIC ENCEPHALOPATHY (6) CAD (coronary artery disease) Assessment/Plan: -Atorvastatin Code(s): I25.10 - ATHSCL HEART DISEASE OF [place] CORONARY ARTERY W/O ANG PCTRS (7) Hypokalemia Assessment/Plan: -K+ 2.9 -received KCl 20mEq IVPB x 2 -monitor electrolytes daily and replete as needed Code(s): E87.6 - HYPOKALEMIA (8) Sepsis Assessment/Plan: -ID on board -LA 1.9 -no leukocytosis -afebrile -BC neg -Sputum culture presum MRSA -Ceftriaxone, Clindamycin -CXR on admission shows progressive congestive findings with bilateral pleural effusions -Vasopressin for hypotension Code(s): A41.9 - SEPSIS, UNSPECIFIED ORGANISM Qualifiers: Sepsis type: sepsis due to unspecified organism Qualified Code(s): A41.9 - Sepsis, unspecified organism (9) Acute renal failure Assessment/Plan: -Renal on board -BUN/Cr 27.0/1.0 -monitor renal function daily Code(s): N17.9 - ACUTE KIDNEY FAILURE, UNSPECIFIED Qualifiers: Acute renal failure type: unspecified Qualified Code(s): N17.9 - Acute kidney failure, unspecified (10) Afib Assessment/Plan: -Cardiology on board -Lovenox SQ BID--switched from Heparin drip due to supratherapeutic PTT -Diltiazem 30mg q6h -tele monitoring Code(s): I48.91 - UNSPECIFIED ATRIAL FIBRILLATION Qualifiers: Atrial fibrillation type: paroxysmal Qualified Code(s): I48.0 - Paroxysmal atrial fibrillation Assessment/Plan see problem list dvt ppx
[2018-11-02] MEDS: ENOXAPARIN NA (PORCINE) 100 MG/1 ML DISP.SYRIN SQ SCH ×3 (14:30→21:42)
[2018-11-02] MEDS: CLINDAMYCIN 600MG PREMIX IVPB 600 MG/50 ML BAG IVPB SCH ×2 (14:38→18:33)
[2018-11-02] MEDS: DILTIAZEM INJECTION 125 MG in DEXTROSE 5%-WATER - 100 ML IVPB SCH (18:23)
[2018-11-02] MEDS: CHLORHEXIDINE GLUCONATE 4% CLEANSER FOR DECOLONIZATION TP SCH (21:40)
[2018-11-02] MEDS: SENNOSIDES 8.6MG TABLET (FP) PO SCH (21:40)
[2018-11-02] MEDS: ATORVASTATIN CA 40 MG TABLET (FP) PO SCH (21:40)
[2018-11-02] MEDS ORDERED: ENOXAPARIN NA (PORCINE) 100 MG/1 ML DISP.SYRIN SQ SCH (22:00)
[2018-11-03] MEDS: dilTIAZem HCL 30 MG TABLET (FP) PO SCH ×2 (00:10→05:17)
[2018-11-03] MEDS: INSULIN SLIDING SCALE (NOVOLOG) 1 VIAL SQ SCH ×4 (00:22→17:24)
[2018-11-03] MEDS: VASOPRESSIN 50 UNITS in SODIUM CHLORIDE 97.5 ML IVPB SCH ×2 (00:30→23:56)
[2018-11-03] MEDS: DEXTROSE 5%-NORMAL SALINE 1,000 ML IV SCH ×2 (00:30→19:55)
[2018-11-03] MEDS: CLINDAMYCIN 600MG PREMIX IVPB 600 MG/50 ML BAG IVPB SCH ×3 (02:45→17:23)
[2018-11-03] MEDS: HYDROCORTISONE SOD SUCCINATE 100 MG/2 ML VIAL IVPUSH SCH ×4 (03:45→20:56)
[2018-11-03 05:57] LABS: HEMATOCRIT 28.2 % (32.4-45.2); HEMOGLOBIN 9.5 GM/dL (10.7-15.3); MCH 35.4 pg (25.7-33.7); MCHC 33.9 g/dl (32.0-36.0); MEAN CELL VOLUME 104.4 fl (80-96); MEAN PLT VOLUME 8.6 fl (7.5-11.1); PLATELET COUNT 168 K/MM3 (134-434); RDW 23.2 % (11.6-15.6); WHITE BLOOD COUNT 8.4 K/mm3 (4.0-10.0)
[2018-11-03] MEDS: METOCLOPRAMIDE HCL 10 MG TABLET (FP) PO SCH ×3 (06:03→16:15)
[2018-11-03] MEDS: LEVOTHYROXINE NA 75 MCG TABLET (FP) PO SCH (06:03)
[2018-11-03 06:37] LABS: BLOOD UREA NITROGEN 26.2 mg/dL (7-18); CREATININE 0.9 mg/dL (0.55-1.3); MAGNESIUM 1.7 mg/dL (1.8-2.4); PHOSPHOROUS 3.2 mg/dL (2.5-4.9); POTASSIUM 3.1 mmol/L (3.5-5.1)
[2018-11-03 06:42] LABS: CALCIUM 6.2 mg/dL (8.5-10.1)
--- NOTE | 2018-11-03 06:56 | PN ---
Physical Exam: SUBJECTIVE: Patient seen and examined at bedside. Has not been tachycardic. NGT inserted this morning. On vasopressin 3, cardizem 5 Extubated yesterday Following simple commands OBJECTIVE: Vital Signs Period Temp Pulse Resp BP Sys/Gu Pulse Ox Last 24 Hr 97 F-98 F 88-137 10-25 87-114/53-86 100-100 GENERAL: A&Ox0, no acute distress EYES: PERRLA ENT: Moist mucus membranes, NGT inserted LUNGS: Clear to auscultation HEART: tachycardic, no murmurs ABDOMEN: Obese, Soft, nontender, BS present MUSCULOSKELETAL: No CVA Tenderness EXTREMITIES: 2+ pulses, 1+ edema, L arm chronic erythematous changes NEUROLOGICAL: 4/5 motor strength RUE and RLE, 0/5 motor strength in the L extremities, not opening eyes to command, but does open spontaneously Laboratory Results - last 24 hr 11/02/18 11/02/18 11/02/18 05:00 05:00 06:00 WBC 9.0 RBC 2.86 L Hgb 10.1 L Hct 29.3 L MCV 102.6 H MCH 35.4 H MCHC 34.5 RDW 23.2 H Plt Count 176 MPV 8.8 PTT (Actin FS) > 400.0 H Sodium Potassium 2.9 L* Chloride Carbon Dioxide Anion Gap BUN Creatinine Est GFR (CKD-EPI)AfAm Est GFR (CKD-EPI)NonAf POC Glucometer Random Glucose Calcium 6.6 L* Phosphorus Magnesium 11/02/18 11/02/18 11/03/18 14:49 16:58 00:15 WBC RBC Hgb Hct MCV MCH MCHC RDW Plt Count MPV PTT (Actin FS) Sodium Potassium Chloride Carbon Dioxide Anion Gap BUN Creatinine Est GFR (CKD-EPI)AfAm Est GFR (CKD-EPI)NonAf POC Glucometer 311 289 299 Random Glucose Calcium Phosphorus Magnesium 11/03/18 11/03/18 11/03/18 05:23 05:30 05:30 WBC 8.4 RBC 2.70 L Hgb 9.5 L Hct 28.2 L MCV 104.4 H MCH 35.4 H MCHC 33.9 RDW 23.2 H Plt Count 168 MPV 8.6 PTT (Actin FS) Sodium 146 H Potassium 3.1 L Chloride 109 H Carbon Dioxide 30 Anion Gap 8 BUN 26.2 H Creatinine 0.9 Est GFR (CKD-EPI)AfAm 66.63 Est GFR (CKD-EPI)NonAf 57.49 POC Glucometer 261 Random Glucose 260 H Calcium 6.2 L* Phosphorus 3.2 Magnesium 1.7 L Active Medications Generic Name Dose Route Start Last Admin Trade Name Freq PRN Reason Stop Dose Admin Amino Acids 30 ml 10/30/18 08:00 11/02/18 17:40 Prosource No Carb Liquid Pkt PO Not Given BID@0800,1730 LEXI Atorvastatin Calcium 40 mg 11/01/18 08:22 11/02/18 21:40 Lipitor - PO Not Given HS LEXI Chlorhexidine Gluconate 1 applic 10/30/18 22:00 11/02/18 21:40 Hibiclens For Decolonization - TP 1 applic HS LEXI Administration Enoxaparin Sodium 90 mg 11/02/18 12:00 11/02/18 21:42 Lovenox - SQ 90 mg BID LEXI Administration Hydrocortisone Sodium Succinate 50 mg 10/30/18 11:45 11/03/18 03:45 Solu-Cortef - IVPUSH 50 mg Q6H-IV LEXI Administration Dextrose/Sodium Chloride 1,000 mls @ 100 mls/hr 10/31/18 19:01 11/03/18 00:30 D5-Ns - IV 100 mls/hr ASDIR LEXI Administration Vasopressin 50 units/ Sodium 100 mls @ 4 mls/hr 10/31/18 23:45 11/03/18 00:30 Chloride IVPB 2 units/hr ASDIR LEXI 4 mls/hr Administration Protocol 2 UNITS/HR Ceftriaxone Sodium 2 gm/ 100 mls @ 200 mls/hr 11/01/18 11:30 11/02/18 09:50 Dextrose IVPB 200 mls/hr DAILY LEXI Administration Protocol Clindamycin Phosphate 600 mg in 50 mls @ 100 mls/hr 11/02/18 13:15 11/03/18 02:45 Cleocin 600 Mg Premix Ivpb - IVPB 100 mls/hr Q8H-IV LEXI Administration Protocol Diltiazem HCl 125 mg/ Dextrose 125 mls @ 5 mls/hr 11/02/18 16:45 11/02/18 18: 23 IVPB 5 mg/hr TITR LEXI 5 mls/hr Administration Protocol 5 MG/HR Insulin Aspart 1 vial 10/30/18 06:00 11/03/18 05:26 Novolog Vial Sliding Scale - SQ 6 units Q6HPO LEXI Administration Protocol Levothyroxine Sodium 75 mcg 10/30/18 07:00 11/03/18 06:03 Synthroid - PO Not Given DAILY@0700 LEXI Metoclopramide HCl 10 mg 10/30/18 07:00 11/03/18 06:03 Reglan - PO Not Given TIDAC LEXI Mupirocin 1 applic 10/30/18 10:00 11/02/18 21:39 Bactroban Ointment (For Decolonization) - NS 11/04/18 09:59 1 applic BID LEXI Administration Pancrelipase 1 cap 10/30/18 08:00 11/02/18 17:40 Crelalo Palomares 36,000 Units Capsule PO Not Given TIDCM LEXI Pantoprazole Sodium 40 mg 10/30/18 10:00 11/02/18 09:51 Protonix - PO 40 mg DAILY LEXI Administration Senna 2 tab 10/30/18 22:00 11/02/18 21:40 Senna - PO Not Given HS LEXI ASSESSMENT/PLAN: 82 year old female with a PMHx of HTN, T2DM, CAD (NSTEMI), afib (not on AC due to prior bleed), HFpEF who was admitted to the ICU after developing respiratory failure likely secondary to distributive vs cardiogenic shock. Acute Respiratory Failure Heart Failure with Preserved Ejection Fraction Septic Shock from possible aspiration PNA A fib with RVR GEOFF R sided Ischemic Stroke Hypothyroid HLD NEUROLOGIC -extubated, appears to be at baseline -large R sided ischemic stroke -AC started with lovenox CARDIOLOGY -tachyarrhythmia controlled on cardizem ggt -can start PO since NGT is placed -new echo showing EF 60%, mild dilation of R ventricle, reduced R systolic function, moderate to severe mitral regurg -on vaso 3, can titrate and wean off -maintain MAP>65 -cardiology consulted, recs appreciated -hydrocortisone 50mg q6h -CHADS-VASC score of 8, on lovenox RESPIRATORY -extubated, on high-flow settings 50L, 35% RENAL -continue fluids GASTROINTESTINAL - no acute issues GENITOURINARY - no acute issues INFECTIOUS DISEASE -septic shock 2/2 aspiration PNA -lactic acid <2 -covered with clindamycin and ceftriaxone -UA showing 2+ LE, 9 bacteria, unlikely contributor to sepsis -blood cultures negative -sputum cultures showing presumptive MRSA -Dr. Cisse consulted, recs appreciated ENDOCRINE -BGM ACHS -ISS -Levemir 15 units -continue home synthroid MUSCULOSKELETAL - no acute issues PSYCHIATRY -continue home escitalopram F/E/N -D5NS @ 100cc/hr -continue to monitor electrolytes and replete as necessary, hypokalemia and hypomagnesemia noted and repleted -NPO pending speech and swallow, s/p stroke LINES -R IJ inserted 10/30 PROPHYLAXIS -Lovenox 90mg bid DISPO -continue to monitor in ICU Visit type - Emergency Visit Emergency Visit: No - New Patient This patient is new to me today: No - Critical Care Critical Care patient: Yes Total Critical Care Time (in minutes): 38 Critical Care Statement: The care of this patient involved high complexity decision making to prevent further life threatening deterioration of the patient 's condition and/or to evaluate & treat vital organ system(s) failure or risk of failure. ATTENDING PHYSICIAN STATEMENT I saw and evaluated the patient. I reviewed the resident's note and discussed the case with the resident. I agree with the resident's findings and plan as documented. SUBJECTIVE: OBJECTIVE: ASSESSMENT AND PLAN:
[2018-11-03] MEDS ORDERED: MAGNESIUM SULF 50% (8.12 MEQ/2 ML-1 GM VIAL) IVPB ONE (06:57)
[2018-11-03] MEDS: AMINO ACIDS/PROTEIN HYDROLYS 30 ML LIQUID.PKT PO SCH ×2 (08:00→16:36)
[2018-11-03] MEDS: LIPASE/PROTEASE/AMYLASE 36,000 UNIT CAPSULE PO SCH ×3 (08:00→16:36)
[2018-11-03] MEDS: KCL 10 MEQ IVPB 10 MEQ/100 ML INFUS.BAG IVPB SCH ×3 (09:10→11:38)
[2018-11-03] MEDS: MUPIROCIN 2% TOPICAL OINTMENT FOR DECOLONIZATION NS SCH ×2 (09:12→21:14)
[2018-11-03] MEDS ORDERED: DEXTROSE 5%-WATER 100 ML IVPB ONE (09:16)
[2018-11-03] MEDS ORDERED: PT OWN MED DRAWER 7, Y5N ONE ×6 (10:23→20:55)
[2018-11-03] MEDS: ENOXAPARIN NA (PORCINE) 100 MG/1 ML DISP.SYRIN SQ SCH ×2 (10:23→21:12)
[2018-11-03] MEDS: CEFTRIAXONE 2 GM in DEXTROSE 5%-WATER 100 ML IVPB SCH (10:23)
[2018-11-03] MEDS: PANTOPRAZOLE 40 MG TABLET (FP) PO SCH (10:57)
--- NOTE | 2018-11-03 11:05 | PN ---
Teaching Attending Note Name of Resident: Enio Faust ATTENDING PHYSICIAN STATEMENT I saw and evaluated the patient. I reviewed the resident's note and discussed the case with the resident. I agree with the resident's findings and plan as documented. SUBJECTIVE: Pt seen and examined in the ICU. Extubated yesterday to HFOT. Remains on vasopressin and cardizem gtts. Lethargic but arousable, follows intermittent commands. OBJECTIVE: Vital Signs Period Temp Pulse Resp BP Sys/Gu Pulse Ox Last 24 Hr 97 F-98 F 90-138 10-25 87-114/62-86 95-100 Intake & Output 10/31/18 11/01/18 11/02/18 11/03/18 23:59 23:59 23:59 23:59 Intake Total 2196 3434 3445.7 1402 Output Total 200 450 250 400 Balance 1995 2984 3195.7 1002 Weight 88.904 kg 97.931 kg 91.308 kg 91.172 kg Gen: mildly tachypneic on HFOT Heart: irregular Lung: scattered rhonchi Abd: soft, nontender Ext: + edema CBC, BMP 11/03/18 05:30 11/03/18 05:30 Active Medications Amino Acids (Prosource No Carb Liquid Pkt) 30 ml PO BID@0800,1730 [facility] Last Admin: 11/03/18 08:00 Dose: Not Given Atorvastatin Calcium (Lipitor -) 40 mg PO HS [facility] Last Admin: 11/02/18 21:40 Dose: Not Given Chlorhexidine Gluconate (Hibiclens For Decolonization -) 1 applic TP HS [facility] Last Admin: 11/02/18 21:40 Dose: 1 applic Enoxaparin Sodium (Lovenox -) 90 mg SQ BID [facility] Last Admin: 11/03/18 10:23 Dose: 90 mg Hydrocortisone Sodium Succinate (Solu-Cortef -) 50 mg IVPUSH Q6H-IV [facility] Last Admin: 11/03/18 08:01 Dose: 50 mg Dextrose/Sodium Chloride (D5-Ns -) 1,000 mls @ 100 mls/hr IV [facility] Last Admin: 11/03/18 00:30 Dose: 100 mls/hr Vasopressin 50 units/ Sodium (Chloride) 100 mls @ 4 mls/hr IVPB [facility]; Protocol Last Admin: 11/03/18 00:30 Dose: 2 units/hr, 4 mls/hr Ceftriaxone Sodium 2 gm/ (Dextrose) 100 mls @ 200 mls/hr IVPB DAILY [facility]; Protocol Last Admin: 11/03/18 10:23 Dose: 200 mls/hr Clindamycin Phosphate (Cleocin 600 Mg Premix Ivpb -) 600 mg in 50 mls @ 100 mls /hr IVPB Q8H-IV [facility]; Protocol Last Admin: 11/03/18 09:12 Dose: 100 mls/hr Diltiazem HCl 125 mg/ Dextrose 125 mls @ 5 mls/hr IVPB TITR [facility]; Protocol Last Titration: 11/03/18 07:50 Dose: 7.5 mg/hr, 7.5 mls/hr Insulin Aspart (Novolog Vial Sliding Scale -) 1 vial SQ Q6HPO [facility]; Protocol Last Admin: 11/03/18 05:26 Dose: 6 units Levothyroxine Sodium (Synthroid -) 75 mcg PO DAILY@0700 [facility] Last Admin: 11/03/18 06:03 Dose: Not Given Metoclopramide HCl (Reglan -) 10 mg PO TIDAC [facility] Last Admin: 11/03/18 10:55 Dose: 10 mg Mupirocin (Bactroban Ointment (For Decolonization) -) 1 applic NS BID [facility] Stop: 11/04/18 09:59 Last Admin: 11/03/18 09:12 Dose: 1 applic Pancrelipase (Creon Dr 36,000 Units Capsule) 1 cap PO TIDCM [facility] Last Admin: 11/03/18 08:00 Dose: Not Given Pantoprazole Sodium (Protonix -) 40 mg PO DAILY [facility] Last Admin: 11/03/18 10:57 Dose: Not Given Pantoprazole Sodium (Protonix Iv) 40 mg IVPUSH DAILY [facility] Senna (Senna -) 2 tab PO HS [facility] Last Admin: 11/02/18 21:40 Dose: Not Given ASSESSMENT AND PLAN: Acute Respiratory Failure Pneumonia likely Aspiration UTI Septic Shock Atrial Fibrillation/Flutter with RVR LV Diastolic Dysfunction r/o CVA Acute Kidney Injury DM Hypothyroidism Hyperlipidemia - continue antibiotics - titrate pressors to maintain MAP >65 - continue stress dose steroids - replete lytes - rate control with cardizem gtt, transition to PO - off anticoagulation due to history of GI bleed - taper HFOT to keep SpO2 >90% - aspiration precautions - DVT/GI prophylaxis - continue ICU monitoring critical care time spent in reviewing chart, evaluating patient and formulating plan 35 min
--- NOTE | 2018-11-03 11:14 | PN ---
Progress Note, Physician History of Present Illness: EXTUBATED POORLY RESPONSIVE ON HIGH FLOW O2 HYPOTENSIVE ON LOW DOSE PRESSORS TEMPS, WBC IMPROVED AFEBRILE WBC WNL AZOTEMIA IMPROVED SPUTUM C/S MRSA - Current Medication List Current Medications: Active Medications Amino Acids (Prosource No Carb Liquid Pkt) 30 ml PO BID@0800,1730 [facility] Last Admin: 11/03/18 08:00 Dose: Not Given Atorvastatin Calcium (Lipitor -) 40 mg PO HS [facility] Last Admin: 11/02/18 21:40 Dose: Not Given Chlorhexidine Gluconate (Hibiclens For Decolonization -) 1 applic TP HS [facility] Last Admin: 11/02/18 21:40 Dose: 1 applic Enoxaparin Sodium (Lovenox -) 90 mg SQ BID [facility] Last Admin: 11/03/18 10:23 Dose: 90 mg Hydrocortisone Sodium Succinate (Solu-Cortef -) 50 mg IVPUSH Q6H-IV [facility] Last Admin: 11/03/18 08:01 Dose: 50 mg Dextrose/Sodium Chloride (D5-Ns -) 1,000 mls @ 100 mls/hr IV [facility] Last Admin: 11/03/18 00:30 Dose: 100 mls/hr Vasopressin 50 units/ Sodium (Chloride) 100 mls @ 4 mls/hr IVPB [facility]; Protocol Last Admin: 11/03/18 00:30 Dose: 2 units/hr, 4 mls/hr Ceftriaxone Sodium 2 gm/ (Dextrose) 100 mls @ 200 mls/hr IVPB DAILY [facility]; Protocol Last Admin: 11/03/18 10:23 Dose: 200 mls/hr Clindamycin Phosphate (Cleocin 600 Mg Premix Ivpb -) 600 mg in 50 mls @ 100 mls /hr IVPB Q8H-IV [facility]; Protocol Last Admin: 11/03/18 09:12 Dose: 100 mls/hr Diltiazem HCl 125 mg/ Dextrose 125 mls @ 5 mls/hr IVPB TITR [facility]; Protocol Last Titration: 11/03/18 07:50 Dose: 7.5 mg/hr, 7.5 mls/hr Insulin Aspart (Novolog Vial Sliding Scale -) 1 vial SQ Q6HPO [facility]; Protocol Last Admin: 11/03/18 05:26 Dose: 6 units Levothyroxine Sodium (Synthroid -) 75 mcg PO DAILY@0700 [facility] Last Admin: 11/03/18 06:03 Dose: Not Given Metoclopramide HCl (Reglan -) 10 mg PO TIDAC [facility] Last Admin: 11/03/18 10:55 Dose: 10 mg Mupirocin (Bactroban Ointment (For Decolonization) -) 1 applic NS BID [facility] Stop: 11/04/18 09:59 Last Admin: 11/03/18 09:12 Dose: 1 applic Pancrelipase (Creon Dr 36,000 Units Capsule) 1 cap PO TIDCM [facility] Last Admin: 11/03/18 08:00 Dose: Not Given Pantoprazole Sodium (Protonix -) 40 mg PO DAILY [facility] Last Admin: 11/03/18 10:57 Dose: Not Given Pantoprazole Sodium (Protonix Iv) 40 mg IVPUSH DAILY [facility] Senna (Senna -) 2 tab PO HS [facility] Last Admin: 11/02/18 21:40 Dose: Not Given - Objective Vital Signs: Vital Signs Temperature 97 F L 11/03/18 06:00 Pulse Rate 114 H 11/03/18 10:00 Respiratory Rate 24 H 11/03/18 10:00 Blood Pressure 104/65 11/03/18 10:00 O2 Sat by Pulse Oximetry (%) 96 11/03/18 08:00 Constitutional: Yes: No Distress, Obese Cardiovascular: Yes: Regular Rate and Rhythm, S1, S2 Respiratory: Yes: Diminished Gastrointestinal: Yes: Normal Bowel Sounds, Soft. No: Tenderness Edema: Yes Edema: LUE: 2+, RUE: 2+, LLE: 2+, RLE: 2+ Labs: CBC, BMP 11/03/18 05:30 11/03/18 05:30 INR, PTT INR 1.27 (0.83-1.09) H 10/29/18 19:00 Assessment/Plan CARDIOGENIC V. SEPTIC SHOCK RESP FAILURE S/P EXTUBATION R/O ASP PNEUMONIA + SPUTUM MRSA CVA AZOTEMIA IMPROVED HX + ESBL CONTINUE CLINDAMYCIN/ CEFTRIAXONE
[2018-11-03] MEDS: PANTOPRAZOLE SODIUM 40 MG VIAL IVPUSH SCH (11:33)
--- NOTE | 2018-11-03 12:01 | PN ---
Progress Note, Physician Chief Complaint: Events noted Coverage for Drs. Steve/Cinda On high flow O2 remains extubated History of Present Illness: Patient was seen and examined. Arousable. Chart was reviewed - Current Medication List Current Medications: Active Medications Amino Acids (Prosource No Carb Liquid Pkt) 30 ml PO BID@0800,1730 [facility] Last Admin: 11/03/18 08:00 Dose: Not Given Atorvastatin Calcium (Lipitor -) 40 mg PO HS [facility] Last Admin: 11/02/18 21:40 Dose: Not Given Chlorhexidine Gluconate (Hibiclens For Decolonization -) 1 applic TP HS [facility] Last Admin: 11/02/18 21:40 Dose: 1 applic Enoxaparin Sodium (Lovenox -) 90 mg SQ BID [facility] Last Admin: 11/03/18 10:23 Dose: 90 mg Hydrocortisone Sodium Succinate (Solu-Cortef -) 50 mg IVPUSH Q6H-IV [facility] Last Admin: 11/03/18 08:01 Dose: 50 mg Dextrose/Sodium Chloride (D5-Ns -) 1,000 mls @ 100 mls/hr IV [facility] Last Admin: 11/03/18 00:30 Dose: 100 mls/hr Vasopressin 50 units/ Sodium (Chloride) 100 mls @ 4 mls/hr IVPB [facility]; Protocol Last Admin: 11/03/18 00:30 Dose: 2 units/hr, 4 mls/hr Ceftriaxone Sodium 2 gm/ (Dextrose) 100 mls @ 200 mls/hr IVPB DAILY [facility]; Protocol Last Admin: 11/03/18 10:23 Dose: 200 mls/hr Clindamycin Phosphate (Cleocin 600 Mg Premix Ivpb -) 600 mg in 50 mls @ 100 mls /hr IVPB Q8H-IV [facility]; Protocol Last Admin: 11/03/18 09:12 Dose: 100 mls/hr Diltiazem HCl 125 mg/ Dextrose 125 mls @ 5 mls/hr IVPB TITR [facility]; Protocol Last Titration: 11/03/18 07:50 Dose: 7.5 mg/hr, 7.5 mls/hr Insulin Aspart (Novolog Vial Sliding Scale -) 1 vial SQ Q6HPO [facility]; Protocol Last Admin: 11/03/18 11:34 Dose: Not Given Levothyroxine Sodium (Synthroid -) 75 mcg PO DAILY@0700 [facility] Last Admin: 11/03/18 06:03 Dose: Not Given Metoclopramide HCl (Reglan -) 10 mg PO TIDAC [facility] Last Admin: 11/03/18 10:55 Dose: 10 mg Mupirocin (Bactroban Ointment (For Decolonization) -) 1 applic NS BID [facility] Stop: 11/04/18 09:59 Last Admin: 11/03/18 09:12 Dose: 1 applic Pancrelipase (Creon Dr 36,000 Units Capsule) 1 cap PO TIDCM [facility] Last Admin: 11/03/18 11:34 Dose: Not Given Pantoprazole Sodium (Protonix Iv) 40 mg IVPUSH DAILY [facility] Last Admin: 11/03/18 11:33 Dose: 40 mg Senna (Senna -) 2 tab PO HS [facility] Last Admin: 11/02/18 21:40 Dose: Not Given - Objective Vital Signs: Vital Signs Temperature 97 F L 11/03/18 06:00 Pulse Rate 114 H 11/03/18 10:00 Respiratory Rate 24 H 11/03/18 10:00 Blood Pressure 104/65 11/03/18 10:00 O2 Sat by Pulse Oximetry (%) 96 11/03/18 08:00 Neck: Yes: Supple Cardiovascular: Yes: Tachycardia, Pulse Irregular, S1, S2 Respiratory: Yes: Diminished, Other (High flow O2) Gastrointestinal: Yes: Normal Bowel Sounds, Soft. No: Tenderness Edema: Yes Labs: CBC, BMP 11/03/18 05:30 11/03/18 05:30 INR, PTT INR 1.27 (0.83-1.09) H 10/29/18 19:00 Problem List - Problems (1) Elevated troponin Code(s): R74.8 - ABNORMAL LEVELS OF OTHER SERUM ENZYMES (2) Respiratory failure Code(s): J96.90 - RESPIRATORY FAILURE, UNSP, UNSP W HYPOXIA OR HYPERCAPNIA Qualifiers: Chronicity: acute Respiratory failure complication: hypoxia Qualified Code(s): J96.01 - Acute respiratory failure with hypoxia (3) SVT (supraventricular tachycardia) Code(s): I47.1 - SUPRAVENTRICULAR TACHYCARDIA (4) Afib Code(s): I48.91 - UNSPECIFIED ATRIAL FIBRILLATION Qualifiers: Atrial fibrillation type: paroxysmal Qualified Code(s): I48.0 - Paroxysmal atrial fibrillation (5) CAD (coronary artery disease) Code(s): I25.10 - ATHSCL HEART DISEASE OF [place] CORONARY ARTERY W/O ANG PCTRS (6) CHF exacerbation Code(s): I50.9 - HEART FAILURE, UNSPECIFIED (7) COPD (chronic obstructive pulmonary disease) Code(s): J44.9 - CHRONIC OBSTRUCTIVE PULMONARY DISEASE, UNSPECIFIED (8) Diabetes Code(s): E11.9 - TYPE 2 DIABETES MELLITUS WITHOUT COMPLICATIONS Qualifiers: Diabetes mellitus type: type 2 Diabetes mellitus complication status: with neurologic complications (9) Hypothyroid Code(s): E03.9 - HYPOTHYROIDISM, UNSPECIFIED (10) NSTEMI (non-ST elevated myocardial infarction) Code(s): I21.4 - NON-ST ELEVATION (NSTEMI) MYOCARDIAL INFARCTION (11) Sepsis Code(s): A41.9 - SEPSIS, UNSPECIFIED ORGANISM Qualifiers: Sepsis type: sepsis due to unspecified organism Qualified Code(s): A41.9 - Sepsis, unspecified organism (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 Acute respiratory failure post mechanical ventilation now extubated 2. Pneumonia ? aspiration 3. CAD, NSTEMI 4. HTN 5. DM 6. Persistent AF with RFR 7. LV diastolic dysfunction, acute on chronic failure 8. Sepsis 9. Hypercholesterolemia 10. Hypothyroidism 11. History of PSVT PLAN: 1. Pressor support - wean as tolerated 2. Antibiotic coverage 3. Cardizem drip for rate control 4. Ideally IV Heparin if feasible instead of Lovenox in view of renal insufficiency and advanced age 5. Consider beta camille if patient can be started on PO. If not, consider IV Lopressor 6. Supportive care as per Critical Care team Guarded David Eli MD
[2018-11-03] MEDS: DILTIAZEM INJECTION 125 MG in DEXTROSE 5%-WATER - 100 ML IVPB SCH ×2 (14:55→17:04)
--- NOTE | 2018-11-03 20:23 | PN ---
Progress Note, Physician Chief Complaint: Septic Shock CVA-R sided Ischemic Acute Respiratory Failure Afib with RVR History of Present Illness: lethargic weak not arousable on high flow oxygen - Current Medication List Current Medications: Active Medications Amino Acids (Prosource No Carb Liquid Pkt) 30 ml PO BID@0800,1730 [facility] Last Admin: 11/03/18 16:36 Dose: 30 ml Atorvastatin Calcium (Lipitor -) 40 mg PO HS [facility] Last Admin: 11/02/18 21:40 Dose: Not Given Chlorhexidine Gluconate (Hibiclens For Decolonization -) 1 applic TP HS [facility] Last Admin: 11/02/18 21:40 Dose: 1 applic Enoxaparin Sodium (Lovenox -) 90 mg SQ BID [facility] Last Admin: 11/03/18 10:23 Dose: 90 mg Hydrocortisone Sodium Succinate (Solu-Cortef -) 50 mg IVPUSH Q6H-IV [facility] Last Admin: 11/03/18 16:00 Dose: 50 mg Dextrose/Sodium Chloride (D5-Ns -) 1,000 mls @ 100 mls/hr IV [facility] Last Admin: 11/03/18 19:55 Dose: 100 mls/hr Vasopressin 50 units/ Sodium (Chloride) 100 mls @ 4 mls/hr IVPB [facility]; Protocol Last Admin: 11/03/18 00:30 Dose: 2 units/hr, 4 mls/hr Ceftriaxone Sodium 2 gm/ (Dextrose) 100 mls @ 200 mls/hr IVPB DAILY [facility]; Protocol Last Admin: 11/03/18 10:23 Dose: 200 mls/hr Clindamycin Phosphate (Cleocin 600 Mg Premix Ivpb -) 600 mg in 50 mls @ 100 mls /hr IVPB Q8H-IV [facility]; Protocol Last Admin: 11/03/18 17:23 Dose: 100 mls/hr Diltiazem HCl 125 mg/ Dextrose 125 mls @ 5 mls/hr IVPB TITR [facility]; Protocol Last Admin: 11/03/18 17:04 Dose: Not Given Insulin Aspart (Novolog Vial Sliding Scale -) 1 vial SQ Q6HPO [facility]; Protocol Last Admin: 11/03/18 17:24 Dose: Not Given Levothyroxine Sodium (Synthroid -) 75 mcg PO DAILY@0700 [facility] Last Admin: 11/03/18 06:03 Dose: Not Given Metoclopramide HCl (Reglan -) 10 mg PO TIDAC [facility] Last Admin: 11/03/18 16:15 Dose: 10 mg Mupirocin (Bactroban Ointment (For Decolonization) -) 1 applic NS BID [facility] Stop: 11/04/18 09:59 Last Admin: 11/03/18 09:12 Dose: 1 applic Pancrelipase (Creon Dr 36,000 Units Capsule) 1 cap PO TIDCM [facility] Last Admin: 11/03/18 16:36 Dose: 1 cap Pantoprazole Sodium (Protonix Iv) 40 mg IVPUSH DAILY [facility] Last Admin: 11/03/18 11:33 Dose: 40 mg Senna (Senna -) 2 tab PO HS [facility] Last Admin: 11/02/18 21:40 Dose: Not Given - Objective Vital Signs: Vital Signs Temperature 97.5 F L 11/03/18 18:00 Pulse Rate 110 H 11/03/18 18:00 Respiratory Rate 25 H 11/03/18 18:00 Blood Pressure 120/66 11/03/18 18:00 O2 Sat by Pulse Oximetry (%) 96 11/03/18 08:00 Constitutional: Yes: Well Nourished, No Distress, Calm, Obese Respiratory: Yes: Rhonchi (diffuse), Other (high flow O2) Gastrointestinal: Yes: Normal Bowel Sounds, Soft, Abdomen, Obese Genitourinary: Yes: [place] Present Musculoskeletal: Yes: Muscle Weakness Extremities: Yes: WNL Edema: No Peripheral Pulses WNL: Yes Neurological: Yes: Lethargy Labs: CBC, BMP 11/03/18 05:30 11/03/18 05:30 INR, PTT INR 1.27 (0.83-1.09) H 10/29/18 19:00 Assessment/Plan (1) CVA (cerebral vascular accident) Assessment/Plan: -Neurology on board -Head CT scan shows large acute nonhemorrhagic right frontal, temporal, and parietal cortical infarct, involvement of the right frontoparietal coronal radiata Code(s): I63.9 - CEREBRAL INFARCTION, UNSPECIFIED (2) Elevated troponin Assessment/Plan: -cardiology on board -demand ischemia Code(s): R74.8 - ABNORMAL LEVELS OF OTHER SERUM ENZYMES (3) Respiratory failure Assessment/Plan: -extubated -on high flow O2 -Pulm on board -bronchodilators -CXR shows reveals decreasing infiltrative changes at bases -CXR on admission shows progressive congestive findings with bilateral pleural effusions -keep SpO2 >90% Code(s): J96.90 - RESPIRATORY FAILURE, UNSP, UNSP W HYPOXIA OR HYPERCAPNIA (4) Acute diastolic heart failure Assessment/Plan: -cardiology on board -Echo with EF 60% Code(s): I50.31 - ACUTE DIASTOLIC (CONGESTIVE) HEART FAILURE (5) Acute metabolic encephalopathy Assessment/Plan: -ID on board -no leukocytosis -afebrile -BC neg -Sputum culture MRSA -Ceftriaxone, Clindamycin Code(s): G93.41 - METABOLIC ENCEPHALOPATHY (6) CAD (coronary artery disease) Assessment/Plan: -Atorvastatin Code(s): I25.10 - ATHSCL HEART DISEASE OF [place] CORONARY ARTERY W/O ANG PCTRS (7) Hypokalemia Assessment/Plan: -likely 2/2 to npo status -received KCl IVPB -monitor electrolytes daily and replete as needed Code(s): E87.6 - HYPOKALEMIA (8) Sepsis Assessment/Plan: -ID on board -no leukocytosis -afebrile -BC neg -Sputum culture MRSA -Ceftriaxone, Clindamycin -CXR on admission shows progressive congestive findings with bilateral pleural effusions -Vasopressin for hypotension Code(s): A41.9 - SEPSIS, UNSPECIFIED ORGANISM Qualifiers: Sepsis type: sepsis due to unspecified organism Qualified Code(s): A41.9 - Sepsis, unspecified organism (9) Acute renal failure Assessment/Plan: -Renal on board -monitor renal function daily Code(s): N17.9 - ACUTE KIDNEY FAILURE, UNSPECIFIED Qualifiers: Acute renal failure type: unspecified Qualified Code(s): N17.9 - Acute kidney failure, unspecified (10) Afib Assessment/Plan: -Cardiology on board -Lovenox SQ BID -Diltiazem 30mg q6h -tele monitoring Code(s): I48.91 - UNSPECIFIED ATRIAL FIBRILLATION Qualifiers: Atrial fibrillation type: paroxysmal Qualified Code(s): I48.0 - Paroxysmal atrial fibrillation
[2018-11-03] MEDS: CHLORHEXIDINE GLUCONATE 4% CLEANSER FOR DECOLONIZATION TP SCH (21:10)
[2018-11-03] MEDS: ATORVASTATIN CA 40 MG TABLET (FP) PO SCH (21:12)
[2018-11-03] MEDS: SENNOSIDES 8.6MG TABLET (FP) PO SCH (21:12)
[2018-11-04] MEDS: HYDROCORTISONE SOD SUCCINATE 100 MG/2 ML VIAL IVPUSH SCH ×4 (02:11→21:50)
[2018-11-04] MEDS: CLINDAMYCIN 600MG PREMIX IVPB 600 MG/50 ML BAG IVPB SCH ×3 (02:11→17:03)
[2018-11-04 06:01] LABS: HEMATOCRIT 26.5 % (32.4-45.2); MCH 35.4 pg (25.7-33.7); MCHC 33.8 g/dl (32.0-36.0); MEAN CELL VOLUME 104.7 fl (80-96); MEAN PLT VOLUME 8.7 fl (7.5-11.1); PLATELET COUNT 200 K/MM3 (134-434); RBC 2.53 M/mm3 (3.60-5.2); RDW 22.9 % (11.6-15.6); WHITE BLOOD COUNT 8.4 K/mm3 (4.0-10.0)
[2018-11-04 06:28] LABS: BLOOD UREA NITROGEN 24.6 mg/dL (7-18); CREATININE 0.8 mg/dL (0.55-1.3); POTASSIUM 3.1 mmol/L (3.5-5.1)
[2018-11-04 06:33] LABS: CALCIUM 6.3 mg/dL (8.5-10.1)
[2018-11-04] MEDS ORDERED: POTASSIUM CHLORIDE ORAL LIQUID 20 MEQ/15 ML NGT ONE (06:37)
[2018-11-04] MEDS ORDERED: PT OWN MED DRAWER 7, Y5N ONE ×3 (06:42→22:01)
[2018-11-04] MEDS: LEVOTHYROXINE NA 75 MCG TABLET (FP) PO SCH (06:45)
[2018-11-04] MEDS: METOCLOPRAMIDE HCL 10 MG TABLET (FP) PO SCH ×3 (06:45→17:08)
[2018-11-04] MEDS: INSULIN SLIDING SCALE (NOVOLOG) 1 VIAL SQ SCH ×4 (06:47→17:08)
[2018-11-04 07:00] LABS: ALBUMIN 1.4 g/dl (3.4-5.0); MAGNESIUM 1.9 mg/dL (1.8-2.4); PHOSPHOROUS 2.8 mg/dL (2.5-4.9)
[2018-11-04] MEDS ORDERED: CALCIUM GLUCONATE 10% - 1,000 MG/10 ML VIAL IVPUSH ONE (07:28)
[2018-11-04] MEDS: KCL 10 MEQ IVPB 10 MEQ/100 ML INFUS.BAG IVPB SCH ×3 (08:10→10:53)
[2018-11-04] MEDS ORDERED: DEXTROSE 5%-WATER 100 ML IVPB ONE (08:27)
--- NOTE | 2018-11-04 08:41 | PN ---
Physical Exam: SUBJECTIVE: Pt extubated over the weekend to HFO2 without any meaningful neuro return. Pt will respond to verbal stimuli and track around room, however will have repetitive mouth movements and doesn't respond appropriately to commands. Otherwise pt looks comfortable and without any notable overnight events. Per pt' s family she remains full code. OBJECTIVE: Vital Signs Period Temp Pulse Resp BP Sys/Gu Pulse Ox Last 24 Hr 97.5 F-98.3 F 90-114 15-26 89-130/58-99 95 GENERAL: The patient is awake, alert, and fully oriented, in no acute distress. HEENT: NC/AT, eye movements track around room in all regions, pupils reactive b/ l, MMM, HFO2 cannula intact in nares NECK: No JVD LUNGS: Upper airway sound transmission noted, however coarse breath sounds improved, no wheezes, no crackles, no accessory muscle use. HFO2 50L/35% HEART: Tachycardic with irregularly irregular rhythm, S1, S2 without murmur ABDOMEN: Soft, NT/ND, hypoactive bowel sounds, no guarding EXTREMITIES: 1+ DP pulses, warm, well-perfused, 2+ edema to the knee b/l NEUROLOGICAL: Limited exam due to condition, MAINOR, blinks to visual threat b/l , muscular tone noted on R side upper ext>lower extremitiy, L sided flaccid paralysis, patellar and bicep reflex unable to be elicited SKIN: Warm, dry, no rashes or lesions noted, sacrum not observed today Laboratory Results 11/03/18 11/03/18 11/03/18 11:08 17:19 23:54 WBC RBC Hgb Hct MCV MCH MCHC RDW Plt Count MPV Sodium Potassium Chloride Carbon Dioxide Anion Gap BUN Creatinine Est GFR (CKD-EPI)AfAm Est GFR (CKD-EPI)NonAf POC Glucometer 162 189 285 Random Glucose Calcium Phosphorus Magnesium Albumin 11/04/18 11/04/18 11/04/18 05:30 05:30 06:20 WBC 8.4 RBC 2.53 L Hgb 9.0 L Hct 26.5 L MCV 104.7 H MCH 35.4 H MCHC 33.8 RDW 22.9 H Plt Count 200 MPV 8.7 Sodium 146 H Potassium 3.1 L Chloride 109 H Carbon Dioxide 29 Anion Gap 8 BUN 24.6 H Creatinine 0.8 Est GFR (CKD-EPI)AfAm 76.83 Est GFR (CKD-EPI)NonAf 66.29 POC Glucometer 281 Random Glucose 267 H Calcium 6.3 L* Phosphorus 2.8 Magnesium 1.9 Albumin 1.4 L Active Medications Generic Name Dose Route Start Last Admin Trade Name Freq PRN Reason Stop Dose Admin Amino Acids 30 ml 10/30/18 08:00 11/03/18 16:36 Prosource No Carb Liquid Pkt PO 30 ml BID@0800,1730 [facility] Administration Atorvastatin Calcium 40 mg 11/01/18 08:22 11/03/18 21:12 Lipitor - PO 40 mg HS [facility] Administration Chlorhexidine Gluconate 1 applic 10/30/18 22:00 11/03/18 21:10 Hibiclens For Decolonization - TP 1 applic HS [facility] Administration Enoxaparin Sodium 90 mg 11/02/18 12:00 11/03/18 21:12 Lovenox - SQ 90 mg BID [facility] Administration Hydrocortisone Sodium Succinate 50 mg 10/30/18 11:45 11/04/18 02:11 Solu-Cortef - IVPUSH 50 mg Q6H-IV [facility] Administration Dextrose/Sodium Chloride 1,000 mls @ 100 mls/hr 10/31/18 19:01 11/03/18 19:55 D5-Ns - IV 100 mls/hr ASDIR [facility] Administration Vasopressin 50 units/ Sodium 100 mls @ 4 mls/hr 10/31/18 23:45 11/03/18 23:56 Chloride IVPB Not Given ASDIR [facility] Protocol 2 UNITS/HR Ceftriaxone Sodium 2 gm/ 100 mls @ 200 mls/hr 11/01/18 11:30 11/03/18 10:23 Dextrose IVPB 200 mls/hr DAILY [facility] Administration Protocol Clindamycin Phosphate 600 mg in 50 mls @ 100 mls/hr 11/02/18 13:15 11/04/18 02:11 Cleocin 600 Mg Premix Ivpb - IVPB 100 mls/hr Q8H-IV [facility] Administration Protocol Diltiazem HCl 125 mg/ Dextrose 125 mls @ 5 mls/hr 11/02/18 16:45 11/03/18 17: 04 IVPB Not Given TITR [facility] Protocol 5 MG/HR Potassium Chloride 10 meq in 100 mls @ 100 mls/hr 11/04/18 07:30 11/04/18 08: 10 Potassium Chloride 10 Meq Premix Ivpb - IVPB 11/04/18 10:29 100 mls/hr Q60M [facility] Administration Insulin Aspart 1 vial 10/30/18 06:00 11/04/18 06:47 Novolog Vial Sliding Scale - SQ 6 units Q6HPO [facility] Administration Protocol Levothyroxine Sodium 75 mcg 10/30/18 07:00 11/04/18 06:45 Synthroid - PO 75 mcg DAILY@0700 [facility] Administration Metoclopramide HCl 10 mg 10/30/18 07:00 11/04/18 06:45 Reglan - PO 10 mg TIDAC [facility] Administration Mupirocin 1 applic 10/30/18 10:00 11/03/18 21:14 Bactroban Ointment (For Decolonization) - NS 11/04/18 09:59 1 applic BID [facility] Administration Pancrelipase 1 cap 10/30/18 08:00 11/03/18 16:[address] 36,000 Units Capsule PO 1 cap TIDCM [facility] Administration Pantoprazole Sodium 40 mg 11/03/18 11:00 11/03/18 11:33 Protonix Iv IVPUSH 40 mg DAILY [facility] Administration Senna 2 tab 10/30/18 22:00 11/03/18 21:12 Senna - PO 2 tab HS [facility] Administration ASSESSMENT/PLAN: Acute hypoxic respiratory failure Septic shock 2/2 to aspiration pneumonitis and UTI Atrial fibrillation with RVR HFpEF R MCA ischemic stroke Acute renal insufficiency (resolved) T2DM Hypothyroidism HLD Neuro: Pt's neuro status tenuous, however improved from initial presentation Lipitor 40mg HS to continue RESP: Pt comfortable with HFO2 50L/35% --Continue to wean as tolerated Maintain SpO2 >90% Aspiration precautions f/u CXR for worsening congestion CARD: Pt continues to require cardizem gtt now currently at 10 --Transition to PO cardizem Vasopressin at 2U/hr; continue to wean CVP at 11 at this time Monitor hemodynamics Once off pressors can wean Cortef 50mg q6h Therapeutic dose lovenox: 90mg BID ID: Pt afebrile for over 24h Continue Rocephin and Clindamycin Isolation precautions to continue ENDO: Continue Synthroid 75mcg qdaily ISS to continue for glycemia control; goal 140-160 FEN: Fluids: change to D5-1/2NS+20KCl @ 75cc/hr Electrolyte abnormalities: Hypokalemia (repleted); cCa 8.3 (repleted) Nutrition: Would hold off on feeds given tenuous respiratory status PPX: DVT - Already on therapeutic dose lovenox GI - PPI qdaily Dispo: continue monitoring in ICU; wean pressors Case discussed with Dr. Michele Martinez, DO - IM PGY-3 Visit type - Emergency Visit Emergency Visit: Yes ED Registration Date: 10/29/18 Care time: The patient presented to the Emergency Department on the above date and was hospitalized for further evaluation of their emergent condition. - New Patient This patient is new to me today: No - Critical Care Critical Care patient: Yes Total Critical Care Time (in minutes): 35 Critical Care Statement: The care of this patient involved high complexity decision making to prevent further life threatening deterioration of the patient 's condition and/or to evaluate & treat vital organ system(s) failure or risk of failure. ATTENDING PHYSICIAN STATEMENT I saw and evaluated the patient. I reviewed the resident's note and discussed the case with the resident. I agree with the resident's findings and plan as documented. SUBJECTIVE: OBJECTIVE: ASSESSMENT AND PLAN:
[2018-11-04] MEDS: CEFTRIAXONE 2 GM in DEXTROSE 5%-WATER 100 ML IVPB SCH (09:10)
[2018-11-04] MEDS: PANTOPRAZOLE SODIUM 40 MG VIAL IVPUSH SCH (09:11)
--- NOTE | 2018-11-04 09:18 | PN ---
Progress Note, Physician Chief Complaint: Events noted Coverage for Drs. Steve/Cinda On high flow O2 AF with periods of RVR History of Present Illness: Patient was seen and examined. Arousable but lethargic. Chart was reviewed - Current Medication List Current Medications: Active Medications Amino Acids (Prosource No Carb Liquid Pkt) 30 ml PO BID@0800,1730 [facility] Last Admin: 11/03/18 16:36 Dose: 30 ml Atorvastatin Calcium (Lipitor -) 40 mg PO HS [facility] Last Admin: 11/03/18 21:12 Dose: 40 mg Chlorhexidine Gluconate (Hibiclens For Decolonization -) 1 applic TP HS [facility] Last Admin: 11/03/18 21:10 Dose: 1 applic Enoxaparin Sodium (Lovenox -) 90 mg SQ BID [facility] Last Admin: 11/03/18 21:12 Dose: 90 mg Hydrocortisone Sodium Succinate (Solu-Cortef -) 50 mg IVPUSH Q6H-IV [facility] Last Admin: 11/04/18 02:11 Dose: 50 mg Dextrose/Sodium Chloride (D5-Ns -) 1,000 mls @ 100 mls/hr IV ASDIR [facility] Last Admin: 11/03/18 19:55 Dose: 100 mls/hr Vasopressin 50 units/ Sodium (Chloride) 100 mls @ 4 mls/hr IVPB ASDIR [facility]; Protocol Last Admin: 11/03/18 23:56 Dose: Not Given Ceftriaxone Sodium 2 gm/ (Dextrose) 100 mls @ 200 mls/hr IVPB DAILY [facility]; Protocol Last Admin: 11/03/18 10:23 Dose: 200 mls/hr Clindamycin Phosphate (Cleocin 600 Mg Premix Ivpb -) 600 mg in 50 mls @ 100 mls /hr IVPB Q8H-IV [facility]; Protocol Last Admin: 11/04/18 02:11 Dose: 100 mls/hr Diltiazem HCl 125 mg/ Dextrose 125 mls @ 5 mls/hr IVPB TITR [facility]; Protocol Last Admin: 11/03/18 17:04 Dose: Not Given Potassium Chloride (Potassium Chloride 10 Meq Premix Ivpb -) 10 meq in 100 mls @ 100 mls/hr IVPB Q60M [facility] Stop: 11/04/18 10:29 Last Admin: 11/04/18 08:10 Dose: 100 mls/hr Insulin Aspart (Novolog Vial Sliding Scale -) 1 vial SQ Q6HPO [facility]; Protocol Last Admin: 11/04/18 06:47 Dose: 6 units Levothyroxine Sodium (Synthroid -) 75 mcg PO DAILY@0700 [facility] Last Admin: 11/04/18 06:45 Dose: 75 mcg Metoclopramide HCl (Reglan -) 10 mg PO TIDAC [facility] Last Admin: 11/04/18 06:45 Dose: 10 mg Mupirocin (Bactroban Ointment (For Decolonization) -) 1 applic NS BID [facility] Stop: 11/04/18 09:59 Last Admin: 11/03/18 21:14 Dose: 1 applic Pancrelipase (Creon Dr 36,000 Units Capsule) 1 cap PO TIDCM [facility] Last Admin: 11/03/18 16:36 Dose: 1 cap Pantoprazole Sodium (Protonix Iv) 40 mg IVPUSH DAILY [facility] Last Admin: 11/03/18 11:33 Dose: 40 mg Senna (Senna -) 2 tab PO HS [facility] Last Admin: 11/03/18 21:12 Dose: 2 tab - Objective Vital Signs: Vital Signs Temperature 98.1 F 11/04/18 06:00 Pulse Rate 98 H 11/04/18 07:51 Respiratory Rate 24 H 11/04/18 07:51 Blood Pressure 118/93 11/04/18 07:51 O2 Sat by Pulse Oximetry (%) 95 11/04/18 02:51 Neck: Yes: Supple Cardiovascular: Yes: Pulse Irregular, S1, S2 Respiratory: Yes: Diminished Gastrointestinal: Yes: Normal Bowel Sounds, Soft. No: Tenderness Edema: Yes Labs: CBC, BMP 11/04/18 05:30 11/04/18 05:30 Problem List - Problems (1) Elevated troponin Code(s): R74.8 - ABNORMAL LEVELS OF OTHER SERUM ENZYMES (2) Respiratory failure Code(s): J96.90 - RESPIRATORY FAILURE, UNSP, UNSP W HYPOXIA OR HYPERCAPNIA Qualifiers: Chronicity: acute Respiratory failure complication: hypoxia Qualified Code(s): J96.01 - Acute respiratory failure with hypoxia (3) SVT (supraventricular tachycardia) Code(s): I47.1 - SUPRAVENTRICULAR TACHYCARDIA (4) Afib Code(s): I48.91 - UNSPECIFIED ATRIAL FIBRILLATION Qualifiers: Atrial fibrillation type: paroxysmal Qualified Code(s): I48.0 - Paroxysmal atrial fibrillation (5) CAD (coronary artery disease) Code(s): I25.10 - ATHSCL HEART DISEASE OF [place] CORONARY ARTERY W/O ANG PCTRS (6) CHF exacerbation Code(s): I50.9 - HEART FAILURE, UNSPECIFIED (7) COPD (chronic obstructive pulmonary disease) Code(s): J44.9 - CHRONIC OBSTRUCTIVE PULMONARY DISEASE, UNSPECIFIED (8) Diabetes Code(s): E11.9 - TYPE 2 DIABETES MELLITUS WITHOUT COMPLICATIONS Qualifiers: Diabetes mellitus type: type 2 Diabetes mellitus complication status: with neurologic complications (9) Hypothyroid Code(s): E03.9 - HYPOTHYROIDISM, UNSPECIFIED (10) NSTEMI (non-ST elevated myocardial infarction) Code(s): I21.4 - NON-ST ELEVATION (NSTEMI) MYOCARDIAL INFARCTION (11) Sepsis Code(s): A41.9 - SEPSIS, UNSPECIFIED ORGANISM Qualifiers: Sepsis type: sepsis due to unspecified organism Qualified Code(s): A41.9 - Sepsis, unspecified organism (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 Acute respiratory failure post mechanical ventilation remains extubated 2. Pneumonia ? aspiration 3. CAD, NSTEMI 4. HTN 5. DM 6. Persistent AF with RFR 7. LV diastolic dysfunction, acute on chronic failure 8. Sepsis 9. Hypercholesterolemia 10. Hypothyroidism 11. History of PSVT PLAN: 1. Pressor support - wean as tolerated 2. Antibiotic coverage 3. Cardizem drip for rate control 4. Ideally IV Heparin if feasible instead of Lovenox in view of renal insufficiency and advanced age 5. IV Lopressor if needed for further rate control 6. Supportive care as per Critical Care team Guarded David Eli MD
[2018-11-04] MEDS: AMINO ACIDS/PROTEIN HYDROLYS 30 ML LIQUID.PKT PO SCH ×3 (09:38→17:03)
[2018-11-04] MEDS: LIPASE/PROTEASE/AMYLASE 36,000 UNIT CAPSULE PO SCH ×4 (09:38→17:03)
[2018-11-04] MEDS: ENOXAPARIN NA (PORCINE) 100 MG/1 ML DISP.SYRIN SQ SCH ×2 (09:39→22:02)
--- NOTE | 2018-11-04 10:08 | PN ---
Teaching Attending Note Name of Resident: Enio Martinez ATTENDING PHYSICIAN STATEMENT I saw and evaluated the patient. I reviewed the resident's note and discussed the case with the resident. I agree with the resident's findings and plan as documented. SUBJECTIVE: Pt seen and examined in the ICU. Remains lethargic but arousable on HFOT. Follows commands. Remains on vasopressin gtt. OBJECTIVE: Vital Signs Period Temp Pulse Resp BP Sys/Gu Pulse Ox Last 24 Hr 97.5 F-98.3 F 90-110 15-26 89-130/58-99 95 Intake & Output 11/01/18 11/02/18 11/03/18 11/04/18 23:59 23:59 23:59 23:59 Intake Total 3434 3445.7 3495.5 862 Output Total 450 250 800 200 Balance 2984 3195.7 2695.5 662 Weight 97.931 kg 91.308 kg 91.172 kg 92.578 kg Gen: tachypneic on HFOT Heart: RRR Lung: scattered rhonchi Abd: soft, nontender Ext: + edema CBC, BMP 11/04/18 05:30 11/04/18 05:30 Active Medications Amino Acids (Prosource No Carb Liquid Pkt) 30 ml PO BID@0800,1730 [facility] Last Admin: 11/04/18 09:46 Dose: Not Given Atorvastatin Calcium (Lipitor -) 40 mg PO HS [facility] Last Admin: 11/03/18 21:12 Dose: 40 mg Chlorhexidine Gluconate (Hibiclens For Decolonization -) 1 applic TP HS [facility] Last Admin: 11/03/18 21:10 Dose: 1 applic Enoxaparin Sodium (Lovenox -) 90 mg SQ BID [facility] Last Admin: 11/04/18 09:39 Dose: 90 mg Hydrocortisone Sodium Succinate (Solu-Cortef -) 50 mg IVPUSH Q6H-IV [facility] Last Admin: 11/04/18 09:11 Dose: 50 mg Dextrose/Sodium Chloride (D5-Ns -) 1,000 mls @ 100 mls/hr IV ASDIR [facility] Last Admin: 11/03/18 19:55 Dose: 100 mls/hr Vasopressin 50 units/ Sodium (Chloride) 100 mls @ 4 mls/hr IVPB ASDIR [facility]; Protocol Last Admin: 11/03/18 23:56 Dose: Not Given Ceftriaxone Sodium 2 gm/ (Dextrose) 100 mls @ 200 mls/hr IVPB DAILY [facility]; Protocol Last Admin: 11/04/18 09:10 Dose: 200 mls/hr Clindamycin Phosphate (Cleocin 600 Mg Premix Ivpb -) 600 mg in 50 mls @ 100 mls /hr IVPB Q8H-IV [facility]; Protocol Last Admin: 11/04/18 09:10 Dose: 100 mls/hr Diltiazem HCl 125 mg/ Dextrose 125 mls @ 5 mls/hr IVPB TITR [facility]; Protocol Last Admin: 11/03/18 17:04 Dose: Not Given Potassium Chloride (Potassium Chloride 10 Meq Premix Ivpb -) 10 meq in 100 mls @ 100 mls/hr IVPB Q60M [facility] Stop: 11/04/18 10:29 Last Admin: 11/04/18 09:10 Dose: 100 mls/hr Insulin Aspart (Novolog Vial Sliding Scale -) 1 vial SQ Q6HPO [facility]; Protocol Last Admin: 11/04/18 06:47 Dose: 6 units Levothyroxine Sodium (Synthroid -) 75 mcg PO DAILY@0700 [facility] Last Admin: 11/04/18 06:45 Dose: 75 mcg Metoclopramide HCl (Reglan -) 10 mg PO TIDAC [facility] Last Admin: 11/04/18 06:45 Dose: 10 mg Pancrelipase (Creon Dr 36,000 Units Capsule) 1 cap PO TIDCM [facility] Last Admin: 11/04/18 09:46 Dose: Not Given Pantoprazole Sodium (Protonix Iv) 40 mg IVPUSH DAILY [facility] Last Admin: 11/04/18 09:11 Dose: 40 mg Senna (Senna -) 2 tab PO HS [facility] Last Admin: 11/03/18 21:12 Dose: 2 tab ASSESSMENT AND PLAN: Acute Respiratory Failure Pneumonia likely Aspiration UTI Septic Shock Atrial Fibrillation/Flutter with RVR LV Diastolic Dysfunction r/o CVA Acute Kidney Injury DM Hypothyroidism Hyperlipidemia - check CXR, may need diuresis - continue antibiotics - titrate pressors to maintain MAP >65 - continue stress dose steroids - replete lytes - rate control with cardizem gtt, transition to PO - off anticoagulation due to history of GI bleed - taper HFOT to keep SpO2 >90% - aspiration precautions - DVT/GI prophylaxis - continue ICU monitoring critical care time spent in reviewing chart, evaluating patient and formulating plan 35 min
[2018-11-04] MEDS ORDERED: FUROSEMIDE 40 MG/4 ML INJECTABLE VIAL IVPUSH ONE (10:46)
--- NOTE | 2018-11-04 11:06 | PN ---
Progress Note, Physician History of Present Illness: REMAINS EXTUBATED ON HIGH FLOW O2 AWAKE, EYES OPEN ON LOW DOSE PRESSORS TEMPS, WBC IMPROVED AFEBRILE WBC WNL AZOTEMIA IMPROVED SPUTUM C/S MRSA - Current Medication List Current Medications: Active Medications Amino Acids (Prosource No Carb Liquid Pkt) 30 ml PO BID@0800,1730 [facility] Last Admin: 11/04/18 09:46 Dose: Not Given Atorvastatin Calcium (Lipitor -) 40 mg PO HS [facility] Last Admin: 11/03/18 21:12 Dose: 40 mg Chlorhexidine Gluconate (Hibiclens For Decolonization -) 1 applic TP HS [facility] Last Admin: 11/03/18 21:10 Dose: 1 applic Diltiazem HCl (Cardizem -) 30 mg PO Q6HPO [facility] Enoxaparin Sodium (Lovenox -) 90 mg SQ BID [facility] Last Admin: 11/04/18 09:39 Dose: 90 mg Furosemide (Lasix Injection -) 40 mg IVPUSH ONCE ONE Stop: 11/04/18 10:47 Last Admin: 11/04/18 10:52 Dose: 40 mg Hydrocortisone Sodium Succinate (Solu-Cortef -) 50 mg IVPUSH Q6H-IV [facility] Last Admin: 11/04/18 09:11 Dose: 50 mg Vasopressin 50 units/ Sodium (Chloride) 100 mls @ 4 mls/hr IVPB [facility]; Protocol Last Admin: 11/03/18 23:56 Dose: Not Given Ceftriaxone Sodium 2 gm/ (Dextrose) 100 mls @ 200 mls/hr IVPB DAILY [facility]; Protocol Last Admin: 11/04/18 09:10 Dose: 200 mls/hr Clindamycin Phosphate (Cleocin 600 Mg Premix Ivpb -) 600 mg in 50 mls @ 100 mls /hr IVPB Q8H-IV [facility]; Protocol Last Admin: 11/04/18 09:10 Dose: 100 mls/hr Diltiazem HCl 125 mg/ Dextrose 125 mls @ 5 mls/hr IVPB TITR [facility]; Protocol Last Admin: 11/03/18 17:04 Dose: Not Given Insulin Aspart (Novolog Vial Sliding Scale -) 1 vial SQ Q6HPO [facility]; Protocol Last Admin: 11/04/18 06:47 Dose: 6 units Levothyroxine Sodium (Synthroid -) 75 mcg PO DAILY@0700 [facility] Last Admin: 11/04/18 06:45 Dose: 75 mcg Metoclopramide HCl (Reglan -) 10 mg PO TIDAC [facility] Last Admin: 11/04/18 06:45 Dose: 10 mg Pancrelipase (Charuon Dr 36,000 Units Capsule) 1 cap PO TIDCM [facility] Last Admin: 11/04/18 09:46 Dose: Not Given Pantoprazole Sodium (Protonix Iv) 40 mg IVPUSH DAILY [facility] Last Admin: 11/04/18 09:11 Dose: 40 mg Senna (Senna -) 2 tab PO HS [facility] Last Admin: 11/03/18 21:12 Dose: 2 tab - Objective Vital Signs: Vital Signs Temperature 98.1 F 11/04/18 06:00 Pulse Rate 98 H 11/04/18 07:51 Respiratory Rate 24 H 11/04/18 07:51 Blood Pressure 118/93 11/04/18 07:51 O2 Sat by Pulse Oximetry (%) 95 11/04/18 02:51 Constitutional: Yes: No Distress, Obese Eyes: Yes: Conjunctiva Clear Cardiovascular: Yes: Regular Rate and Rhythm, S1, S2 Respiratory: Yes: Diminished Gastrointestinal: Yes: Normal Bowel Sounds, Soft, Abdomen, Obese. No: Tenderness Edema: Yes Edema: LUE: 2+, RUE: 2+, LLE: 2+, RLE: 2+ Labs: CBC, BMP 11/04/18 05:30 11/04/18 05:30 INR, PTT INR 1.27 (0.83-1.09) H 10/29/18 19:00 Assessment/Plan CARDIOGENIC V. SEPTIC SHOCK RESP FAILURE S/P EXTUBATION R/O ASP PNEUMONIA + SPUTUM MRSA CVA AZOTEMIA IMPROVED HX + ESBL CONTINUE CLINDAMYCIN/ CEFTRIAXONE
[2018-11-04] MEDS: dilTIAZem HCL 30 MG TABLET (FP) PO SCH ×2 (12:05→17:08)
--- NOTE | 2018-11-04 14:33 | CONSULT ---
Consult - text type - Consultation Consultation Note: NEUROLOGY PROGRESS: Events reviewed and discussed with daughters at the bedside. Extubated Monday. Daughter's note she is "more awake." Concerned if she will speak again. EXAM: Awake, alert. Opens eyes and grasps on command. Blinks to threat from right.No response from the left. Moves right side spontaneously Left flaccid hemiplegia. Left Babinski (family thought this was a volitional response to their touch). Feels pinch R >>> L. IMP: Improving somewhat after large right ([facility]-territory) CVA. SUGGEST: Continue antibiotics, hydration, Lovanox, Supportive care. D/C Metaclopramide Bedside PT Patient will likely require SNF level of care. Thank you very much, Ana Laura Fairbanks MD
--- NOTE | 2018-11-04 15:48 | PN ---
Progress Note, Physician Chief Complaint: Septic Shock CVA-R sided Ischemic Acute Respiratory Failure Afib with RVR History of Present Illness: lethargic weak not arousable on high flow oxygen - Current Medication List Current Medications: Active Medications Amino Acids (Prosource No Carb Liquid Pkt) 30 ml PO BID@0800,1730 [facility] Last Admin: 11/04/18 09:46 Dose: Not Given Atorvastatin Calcium (Lipitor -) 40 mg PO HS [facility] Last Admin: 11/03/18 21:12 Dose: 40 mg Chlorhexidine Gluconate (Hibiclens For Decolonization -) 1 applic TP HS [facility] Last Admin: 11/03/18 21:10 Dose: 1 applic Diltiazem HCl (Cardizem -) 30 mg PO Q6HPO [facility] Last Admin: 11/04/18 12:05 Dose: 30 mg Enoxaparin Sodium (Lovenox -) 90 mg SQ BID [facility] Last Admin: 11/04/18 09:39 Dose: 90 mg Hydrocortisone Sodium Succinate (Solu-Cortef -) 50 mg IVPUSH Q6H-IV [facility] Last Admin: 11/04/18 09:11 Dose: 50 mg Vasopressin 50 units/ Sodium (Chloride) 100 mls @ 4 mls/hr IVPB ASDIR [facility]; Protocol Last Titration: 11/04/18 14:00 Dose: 0 units/hr, 0 mls/hr Ceftriaxone Sodium 2 gm/ (Dextrose) 100 mls @ 200 mls/hr IVPB DAILY [facility]; Protocol Last Admin: 11/04/18 09:10 Dose: 200 mls/hr Clindamycin Phosphate (Cleocin 600 Mg Premix Ivpb -) 600 mg in 50 mls @ 100 mls /hr IVPB Q8H-IV [facility]; Protocol Last Admin: 11/04/18 09:10 Dose: 100 mls/hr Diltiazem HCl 125 mg/ Dextrose 125 mls @ 5 mls/hr IVPB TITR [facility]; Protocol Last Titration: 11/04/18 14:43 Dose: 0 mg/hr, 0 mls/hr Insulin Aspart (Novolog Vial Sliding Scale -) 1 vial SQ Q6HPO [facility]; Protocol Last Admin: 11/04/18 12:06 Dose: 2 units Levothyroxine Sodium (Synthroid -) 75 mcg PO DAILY@0700 [facility] Last Admin: 11/04/18 06:45 Dose: 75 mcg Metoclopramide HCl (Reglan -) 10 mg PO TIDAC [facility] Last Admin: 11/04/18 12:08 Dose: 10 mg Pancrelipase (Creon Dr 36,000 Units Capsule) 1 cap PO TIDCM [facility] Last Admin: 11/04/18 12:06 Dose: Not Given Pantoprazole Sodium (Protonix Iv) 40 mg IVPUSH DAILY [facility] Last Admin: 11/04/18 09:11 Dose: 40 mg Senna (Senna -) 2 tab PO HS [facility] Last Admin: 11/03/18 21:12 Dose: 2 tab - Objective Vital Signs: Vital Signs Temperature 97.9 F 11/04/18 10:00 Pulse Rate 96 H 11/04/18 14:43 Respiratory Rate 18 11/04/18 14:00 Blood Pressure 106/76 11/04/18 14:43 O2 Sat by Pulse Oximetry (%) 99 11/04/18 09:00 Constitutional: Yes: Well Nourished, No Distress, Calm, Obese Cardiovascular: Yes: Regular Rate and Rhythm Respiratory: Yes: Rhonchi (diffuse), Other (high flow O2) Gastrointestinal: Yes: Soft, Abdomen, Obese, Hypoactive Bowel Sounds Genitourinary: Yes: Ricketts Present Musculoskeletal: Yes: Muscle Weakness Extremities: Yes: WNL Edema: No Peripheral Pulses WNL: Yes Neurological: Yes: Lethargy Labs: CBC, BMP 11/04/18 05:30 11/04/18 05:30 INR, PTT INR 1.27 (0.83-1.09) H 10/29/18 19:00 Assessment/Plan (1) CVA (cerebral vascular accident) Assessment/Plan: -Neurology on board -Head CT scan shows large acute nonhemorrhagic right frontal, temporal, and parietal cortical infarct, involvement of the right frontoparietal coronal radiata Code(s): I63.9 - CEREBRAL INFARCTION, UNSPECIFIED (2) Elevated troponin Assessment/Plan: -cardiology on board -demand ischemia Code(s): R74.8 - ABNORMAL LEVELS OF OTHER SERUM ENZYMES (3) Respiratory failure Assessment/Plan: -extubated -on high flow O2 -Pulm on board -bronchodilators -CXR shows reveals decreasing infiltrative changes at bases -CXR on admission shows progressive congestive findings with bilateral pleural effusions -keep SpO2 >90% Code(s): J96.90 - RESPIRATORY FAILURE, UNSP, UNSP W HYPOXIA OR HYPERCAPNIA (4) Acute diastolic heart failure Assessment/Plan: -cardiology on board -Echo with EF 60% Code(s): I50.31 - ACUTE DIASTOLIC (CONGESTIVE) HEART FAILURE (5) Acute metabolic encephalopathy Assessment/Plan: -ID on board -no leukocytosis -afebrile -BC neg -Sputum culture MRSA -Ceftriaxone, Clindamycin Code(s): G93.41 - METABOLIC ENCEPHALOPATHY (6) CAD (coronary artery disease) Assessment/Plan: -Atorvastatin Code(s): I25.10 - ATHSCL HEART DISEASE OF [place] CORONARY ARTERY W/O ANG PCTRS (7) Hypokalemia Assessment/Plan: -likely 2/2 to npo status -received KCl IVPB -monitor electrolytes daily and replete as needed Code(s): E87.6 - HYPOKALEMIA (8) Sepsis Assessment/Plan: -ID on board -no leukocytosis -afebrile -BC neg -Sputum culture MRSA -Ceftriaxone, Clindamycin -CXR on admission shows progressive congestive findings with bilateral pleural effusions -Vasopressin for hypotension Code(s): A41.9 - SEPSIS, UNSPECIFIED ORGANISM Qualifiers: Sepsis type: sepsis due to unspecified organism Qualified Code(s): A41.9 - Sepsis, unspecified organism (9) Acute renal failure Assessment/Plan: -Renal on board -monitor renal function daily Code(s): N17.9 - ACUTE KIDNEY FAILURE, UNSPECIFIED Qualifiers: Acute renal failure type: unspecified Qualified Code(s): N17.9 - Acute kidney failure, unspecified (10) Afib Assessment/Plan: -Cardiology on board -Lovenox SQ BID -Diltiazem 30mg q6h -tele monitoring Code(s): I48.91 - UNSPECIFIED ATRIAL FIBRILLATION Qualifiers: Atrial fibrillation type: paroxysmal Qualified Code(s): I48.0 - Paroxysmal atrial fibrillation
--- NOTE | 2018-11-04 17:32 | CONSULT ---
Consult Consult Specialty:: ENDOCRINE Referred by:: KYMBERLY BAIN Reason for Consultation:: DIABETES MELLITUS UNCONTROLLED. HYPOTHYROIDISM - History of Present Illness Chief Complaint: LETHARGIC WEAK POST EXTUBATION History of Present Illness: 88 year old female with DM 2,morbid obesity,hypothyroidism,multiple comorbidities presents after being found at home lethargic and less responsive. As per family, admitted for hypotension,hypoxia,and respiratory failure, intubated and given antibiotics and pressors improving extubated and has had gradual stable course in icu more alert yet still lethargic at times,feeling cold and dyspneic with dry cough. 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 CARDIOLOGIST: Yes: Dementia, Vertigo Cardio/Vascular: Yes: AFIB, CAD, HTN, Hyperlipdemia Pulmonary: Yes: COPD Gastrointestinal: Yes: Constipation, Hiatal Hernia, Other Endocrine: Yes: Diabetes Mellitus (insulin-dependent for years -> uncontrolled) , Hypothyroidism Dermatology: Yes: Cellulitis (in past, with chronic and intermittent edema) - Past Surgical History Past Surgical History: Yes: Cholecystectomy, Stent (coronary stents), Upper Endoscopy - Alcohol/Substance Use Hx Alcohol Use: No History of Substance Use: reports: None - Smoking History Smoking history: Unknown if ever smoked Have you smoked in the past 12 months: No Aproximately how many cigarettes per day: 0 If you are a former smoker, when did you quit?: 1984 - Social History Usual Living Arrangement: With Child ADL: Family Assistance History of Recent Travel: No Home Medications - Allergies Allergies/Adverse Reactions: Allergies Allergy/AdvReac Type Severity Reaction Status Date / Time vancomycin AdvReac Itching Verified 07/26/18 12:49 - Home Medications Home Medications: Ambulatory Orders Atorvastatin Ca [Lipitor] 20 mg PO HS tablet 02/27/18 Metoprolol Tartrate [Lopressor -] 50 mg PO BID tablet 04/03/18 Sennosides [Senna -] 2 tab PO HS tablet 04/03/18 Insulin (Levemir) [Levemir Vial] 15 units SQ AM units 04/14/18 Escitalopram Oxalate [Lexapro -] 5 mg PO DAILY tablet 04/21/18 Metoclopramide HCl [Reglan -] 10 mg PO TIDAC tablet 04/21/18 Potassium Chloride 40 meq PO DAILY #60 tablet.er 04/21/18 Insulin Aspart [Novolog] 100 unit SQ Q6H PRN 05/03/18 Omeprazole 40 mg PO DAILY 05/03/18 Amino Acids/Protein Hydrolys [Prosource No Carb Liquid Pkt] 30 ml PO BID@0800, 1730 #60 packet 08/08/18 Levothyroxine [Synthroid -] 75 mcg PO DAILY@0700 tablet 08/08/18 Lipase/Protease/Amylase [Dyllan Palomares 36,000 Units Capsule] 1 cap PO TIDCM #90 capsule. 08/08/18 Rifaximin [Xifaxan -] 550 mg PO TID #90 tablet 08/08/18 Family Disease History - Family Disease History Family Disease History: Diabetes: Daughter Review of Systems Unable to obtain ROS, reason: non verbal - Review of Systems Constitutional: reports: Diaphoresis, Lethargy, Weakness Eyes: reports: No Symptoms Physical Exam Vital Signs: Vital Signs Temperature 97.9 F 11/04/18 10:00 Pulse Rate 124 H 11/04/18 16:00 Respiratory Rate 18 11/04/18 16:00 Blood Pressure 126/96 11/04/18 16:00 O2 Sat by Pulse Oximetry (%) 99 11/04/18 09:00 Constitutional: Yes: Anxious Eyes: Yes: EOM Intact HENT: Yes: Normocephalic Neck: Yes: Trachea Midline Cardiovascular: Yes: Tachycardia Respiratory: Yes: Rhonchi, SOB, Tachypnea, Wheezes Gastrointestinal: Yes: Abdomen, Obese ...Rectal Exam: Yes: Deferred Renal/: Yes: WNL Extremities: Yes: Cold, Delayed Capillary Refill Edema: LUE: 2+, LLE: 3+, RLE: 3+ Neurological: Yes: Alert, Aphasia Labs: CBC, BMP 11/04/18 05:30 11/04/18 05:30 Problem List - Problems (1) Diabetes mellitus with nonketotic hyperosmolarity Code(s): E11.00 - TYPE 2 DIAB W HYPROSM W/O NONKET HYPRGLY-HYPROS COMA ([facility]) (2) Altered mental status Code(s): R41.82 - ALTERED MENTAL STATUS, UNSPECIFIED Qualifiers: Altered mental status type: unspecified Qualified Code(s): R41.82 - Altered mental status, unspecified (3) CVA (cerebral vascular accident) Code(s): I63.9 - CEREBRAL INFARCTION, UNSPECIFIED (4) Elevated troponin Code(s): R74.8 - ABNORMAL LEVELS OF OTHER SERUM ENZYMES (5) Respiratory failure Code(s): J96.90 - RESPIRATORY FAILURE, UNSP, UNSP W HYPOXIA OR HYPERCAPNIA Qualifiers: Chronicity: acute Respiratory failure complication: hypoxia Qualified Code(s): J96.01 - Acute respiratory failure with hypoxia (6) SVT (supraventricular tachycardia) Code(s): I47.1 - SUPRAVENTRICULAR TACHYCARDIA (7) Type 2 diabetes mellitus with hyperosmolarity without nonketotic hyperglycemic-hyperosmolar coma ([facility]) Code(s): E11.00 - TYPE 2 DIAB W HYPROSM W/O NONKET HYPRGLY-HYPROS COMA ([facility]) Assessment/Plan Current Active Problems diabetes mellitus hyperglycemia hypothyroidism Altered mental status (Acute) CVA (cerebral vascular accident) (Acute) Elevated troponin (Acute) NSVT (nonsustained ventricular tachycardia) (Acute) Respiratory failure (Acute) Respiratory failure (Acute) SVT (supraventricular tachycardia) (Acute) Abnormal Lab Results 11/04/18 11/04/18 05:30 05:30 RBC 2.53 L Hgb 9.0 L Hct 26.5 L MCV 104.7 H MCH 35.4 H RDW 22.9 H Sodium 146 H Potassium 3.1 L Chloride 109 H BUN 24.6 H Random Glucose 267 H Calcium 6.3 L* Albumin 1.4 L Laboratory Results - last 24 hr 11/03/18 11/04/18 11/04/18 23:54 05:30 05:30 WBC 8.4 RBC 2.53 L Hgb 9.0 L Hct 26.5 L MCV 104.7 H MCH 35.4 H MCHC 33.8 RDW 22.9 H Plt Count 200 MPV 8.7 Sodium 146 H Potassium 3.1 L Chloride 109 H Carbon Dioxide 29 Anion Gap 8 BUN 24.6 H Creatinine 0.8 Est GFR (CKD-EPI)AfAm 76.83 Est GFR (CKD-EPI)NonAf 66.29 POC Glucometer 285 Random Glucose 267 H Calcium 6.3 L* Phosphorus 2.8 Magnesium 1.9 Albumin 1.4 L 11/04/18 11/04/18 11/04/18 06:20 12:04 16:45 WBC RBC Hgb Hct MCV MCH MCHC RDW Plt Count MPV Sodium Potassium Chloride Carbon Dioxide Anion Gap BUN Creatinine Est GFR (CKD-EPI)AfAm Est GFR (CKD-EPI)NonAf POC Glucometer 281 196 125 Random Glucose Calcium Phosphorus Magnesium Albumin plan: bgm qid novolog scale synthroid 75mcg day levemir 20 units am when nutrition supplemented
[2018-11-04] MEDS ORDERED: dilTIAZem HCL 50 MG/10 ML - 10 ML VIAL IVPUSH ONE ×2 (21:18→22:01)
[2018-11-04] MEDS ORDERED: dilTIAZem HCL 50 MG/10 ML - 10 ML VIAL ONE (21:21)
[2018-11-04] MEDS ORDERED: VASOPRESSIN 20 UNITS/ML VIAL IV ONE ×2 (21:30→21:32)
[2018-11-04] MEDS ORDERED: dilTIAZem HCL 25 MG/5 ML - 5 ML VIAL ONE (21:45)
[2018-11-04] MEDS: DILTIAZEM INJECTION 125 MG in SODIUM CHLORIDE 100 ML IVPB SCH (21:57)
[2018-11-04] MEDS: CHLORHEXIDINE GLUCONATE 4% CLEANSER FOR DECOLONIZATION TP SCH (22:02)
[2018-11-04] MEDS: ATORVASTATIN CA 40 MG TABLET (FP) PO SCH (22:02)
[2018-11-04] MEDS: SENNOSIDES 8.6MG TABLET (FP) PO SCH (22:03)
[2018-11-04] MEDS: VASOPRESSIN 50 UNITS in SODIUM CHLORIDE 97.5 ML IVPB SCH (23:08)
[2018-11-04] MEDS ORDERED: DIGOXIN 0.5 MG/2 ML AMPUL IVPUSH ONE (23:51)
[2018-11-04] MEDS ORDERED: DIGOXIN 0.5 MG/2 ML AMPUL ONE (23:53)
[2018-11-05] MEDS: INSULIN SLIDING SCALE (NOVOLOG) 1 VIAL SQ SCH ×4 (00:05→17:32)
--- NOTE | 2018-11-05 00:20 | PN ---
Progress Note (short form) - Note Progress Note: Pt's afib refractory to PO Cardizem at this point. 10mg IVP of Cardizem given and then restarted cardizem gtt and uptitrated it to 10mg/hr. Pt still tachycardic to 120-130's bpm, however BP has been stable at MAP of 65-70 off of any vasopressors for the time being. Pt given 0.25mg Digoxin after Cr reviewed and cardiology consulted for further recommendations --Increased cardizem gtt to 15mg/hr --Can give Lopressor IVP for breakthrough if pt doesn't respond Continue to monitor telemetry and pt's hemodynamics. --If pressure become tenuous restart Vasopressin for hemodynamic support Likely will need diuresis given net positive for multiple days previous and worsening congestion on CXR
[2018-11-05 00:38] LABS: BLOOD UREA NITROGEN 26.2 mg/dL (7-18); CREATININE 0.7 mg/dL (0.55-1.3); MAGNESIUM 1.8 mg/dL (1.8-2.4); POTASSIUM 3.5 mmol/L (3.5-5.1)
[2018-11-05] MEDS ORDERED: METOPROLOL TARTRATE 5 MG/5 ML VIAL IVPUSH PRN (00:44)
[2018-11-05] MEDS: KCL 10 MEQ IVPB 10 MEQ/100 ML INFUS.BAG IVPB SCH ×3 (00:53→03:46)
[2018-11-05 01:19] LABS: CALCIUM 6.6 mg/dL (8.5-10.1)
[2018-11-05 02:52] LABS: ARTERIAL BLOOD GAS BASE EXCESS 2.8 meq/l (-2-2); ARTERIAL BLOOD GAS PCO2 42.6 mmHg (35-45); ARTERIAL BLOOD GAS PO2 57.3 mmHg (80-105); ARTERIAL BLOOD GAS pH 7.42 (7.35-7.45)
[2018-11-05 02:55] LABS: ALLENS TEST POSITIVE
[2018-11-05] MEDS: CLINDAMYCIN 600MG PREMIX IVPB 600 MG/50 ML BAG IVPB SCH ×3 (02:55→17:44)
[2018-11-05] MEDS: HYDROCORTISONE SOD SUCCINATE 100 MG/2 ML VIAL IVPUSH SCH ×4 (03:04→20:58)
[2018-11-05] MEDS: VASOPRESSIN 50 UNITS in SODIUM CHLORIDE 97.5 ML IVPB SCH ×2 (03:45→22:16)
[2018-11-05] MEDS ORDERED: FUROSEMIDE 40 MG/4 ML INJECTABLE VIAL IVPUSH ONE ×2 (04:06→22:00)
[2018-11-05 06:05] LABS: BASO % 0.3 % (0-2.0); HEMATOCRIT 24.8 % (32.4-45.2); HEMOGLOBIN 8.2 GM/dL (10.7-15.3); LYMPH % 7.8 % (8-40); MCH 34.6 pg (25.7-33.7); MCHC 33.1 g/dl (32.0-36.0); MEAN CELL VOLUME 104.4 fl (80-96); MEAN PLT VOLUME 8.6 fl (7.5-11.1); NEUT % 86.9 % (42.8-82.8); PLATELET COUNT 249 K/MM3 (134-434); RBC 2.38 M/mm3 (3.60-5.2); RDW 22.9 % (11.6-15.6); WHITE BLOOD COUNT 11.7 K/mm3 (4.0-10.0)
[2018-11-05] MEDS ORDERED: PT OWN MED DRAWER 7, Y5N ONE ×4 (06:05→16:39)
[2018-11-05] MEDS: LEVOTHYROXINE NA 75 MCG TABLET (FP) PO SCH (06:06)
[2018-11-05] MEDS: METOCLOPRAMIDE HCL 10 MG TABLET (FP) PO SCH ×3 (06:06→16:29)
[2018-11-05 06:26] LABS: ALBUMIN 1.4 g/dl (3.4-5.0); BILIRUBIN,TOTAL 0.4 mg/dL (0.2-1); BLOOD UREA NITROGEN 26.6 mg/dL (7-18); CREATININE 0.7 mg/dL (0.55-1.3); POTASSIUM 4.1 mmol/L (3.5-5.1); TOT PROT 4.5 g/dl (6.4-8.2)
[2018-11-05 06:28] LABS: CALCIUM 6.4 mg/dL (8.5-10.1)
--- NOTE | 2018-11-05 09:09 | PN ---
Progress Note, Physician Chief Complaint: AWAKE, ON NRB 02 MASK IN MODERATE DISTRESS EVENTS AND NOTES REVIEWED - Current Medication List Current Medications: Active Medications Amino Acids (Prosource No Carb Liquid Pkt) 30 ml PO BID@0800,1730 [facility] Last Admin: 11/04/18 17:03 Dose: 30 ml Atorvastatin Calcium (Lipitor -) 40 mg PO HS [facility] Last Admin: 11/04/18 22:02 Dose: 40 mg Chlorhexidine Gluconate (Hibiclens For Decolonization -) 1 applic TP HS [facility] Last Admin: 11/04/18 22:02 Dose: 1 applic Diltiazem HCl (Cardizem -) 60 mg PO Q6HPO [facility] Enoxaparin Sodium (Lovenox -) 90 mg SQ BID [facility] Last Admin: 11/04/18 22:02 Dose: 90 mg Hydrocortisone Sodium Succinate (Solu-Cortef -) 50 mg IVPUSH Q6H-IV [facility] Last Admin: 11/05/18 03:04 Dose: 50 mg Ceftriaxone Sodium 2 gm/ (Dextrose) 100 mls @ 200 mls/hr IVPB DAILY [facility]; Protocol Last Admin: 11/04/18 09:10 Dose: 200 mls/hr Clindamycin Phosphate (Cleocin 600 Mg Premix Ivpb -) 600 mg in 50 mls @ 100 mls /hr IVPB Q8H-IV [facility]; Protocol Last Admin: 11/05/18 02:55 Dose: 100 mls/hr Vasopressin 50 units/ Sodium (Chloride) 100 mls @ 4 mls/hr IVPB ASDIR [facility]; Protocol Last Admin: 11/05/18 03:45 Dose: 2.5 units/hr, 5 mls/hr Diltiazem HCl 125 mg/ Sodium (Chloride) 125 mls @ 5 mls/hr IVPB TITR [facility]; Protocol Last Titration: 11/05/18 00:15 Dose: 15 mg/hr, 15 mls/hr Insulin Aspart (Novolog Vial Sliding Scale -) 1 vial SQ Q6HPO [facility]; Protocol Last Admin: 11/05/18 05:53 Dose: 2 units Levothyroxine Sodium (Synthroid -) 75 mcg PO DAILY@0700 [facility] Last Admin: 11/05/18 06:06 Dose: 75 mcg Metoclopramide HCl (Reglan -) 10 mg PO TIDAC [facility] Last Admin: 11/05/18 06:06 Dose: 10 mg Metoprolol Tartrate (Lopressor Injection -) 5 mg IVPUSH Q4H PRN PRN Reason: TACHYCARDIA Last Admin: 11/05/18 00:53 Dose: 5 mg Pancrelipase (Creon Dr 36,000 Units Capsule) 1 cap PO TIDCM [facility] Last Admin: 11/04/18 17:03 Dose: Not Given Pantoprazole Sodium (Protonix Iv) 40 mg IVPUSH DAILY [facility] Last Admin: 11/04/18 09:11 Dose: 40 mg Senna (Senna -) 2 tab PO HS [facility] Last Admin: 11/04/18 22:03 Dose: 2 tab - Objective Vital Signs: Vital Signs Temperature 97.5 F L 11/05/18 06:40 Pulse Rate 109 H 11/05/18 08:00 Respiratory Rate 24 H 11/05/18 08:00 Blood Pressure 101/87 11/05/18 08:00 O2 Sat by Pulse Oximetry (%) 100 11/04/18 20:38 Constitutional: Yes: Moderate Distress Cardiovascular: Yes: Tachycardia Respiratory: Yes: Diminished, On Venti-Mask, Other Gastrointestinal: Yes: Soft Genitourinary: Yes: Ricketts Present Musculoskeletal: Yes: Muscle Weakness Edema: Yes Integumentary: Yes: Pressure Ulcer, Rash, Venous Stasis Changes Wound/Incision: Yes: Open to air Neurological: Yes: Confusion, Pre-Existing Deficit ...Motor Strength: LLE, RLE Labs: CBC, BMP 11/05/18 05:15 11/05/18 05:15 INR, PTT INR 1.27 (0.83-1.09) H 10/29/18 19:00 Problem List - Problems (1) Respiratory failure Code(s): J96.90 - RESPIRATORY FAILURE, UNSP, UNSP W HYPOXIA OR HYPERCAPNIA (2) Altered mental status Code(s): R41.82 - ALTERED MENTAL STATUS, UNSPECIFIED Qualifiers: Altered mental status type: unspecified Qualified Code(s): R41.82 - Altered mental status, unspecified (3) Elevated troponin Code(s): R74.8 - ABNORMAL LEVELS OF OTHER SERUM ENZYMES (4) NSVT (nonsustained ventricular tachycardia) Code(s): I47.2 - VENTRICULAR TACHYCARDIA (5) Respiratory failure Code(s): J96.90 - RESPIRATORY FAILURE, UNSP, UNSP W HYPOXIA OR HYPERCAPNIA Qualifiers: Chronicity: acute Respiratory failure complication: hypoxia Qualified Code(s): J96.01 - Acute respiratory failure with hypoxia (6) SVT (supraventricular tachycardia) Code(s): I47.1 - SUPRAVENTRICULAR TACHYCARDIA (7) Acute diastolic heart failure Code(s): I50.31 - ACUTE DIASTOLIC (CONGESTIVE) HEART FAILURE (8) Acute metabolic encephalopathy Code(s): G93.41 - METABOLIC ENCEPHALOPATHY (9) Afib Code(s): I48.91 - UNSPECIFIED ATRIAL FIBRILLATION Qualifiers: Atrial fibrillation type: paroxysmal Qualified Code(s): I48.0 - Paroxysmal atrial fibrillation (10) COPD (chronic obstructive pulmonary disease) Code(s): J44.9 - CHRONIC OBSTRUCTIVE PULMONARY DISEASE, UNSPECIFIED (11) Morbid obesity with BMI of 40.0-44.9, adult Code(s): E66.01 - MORBID (SEVERE) OBESITY DUE TO EXCESS CALORIES; Z68.41 - BODY MASS INDEX (BMI) 40.0-44.9, ADULT (12) Type 2 diabetes mellitus with other circulatory complications Code(s): E11.59 - TYPE 2 DIABETES MELLITUS WITH OTH CIRCULATORY COMPLICATIONS (13) Type 2 diabetes mellitus with other diabetic neurological complication Code(s): E11.49 - TYPE 2 DIABETES W OTH DIABETIC NEUROLOGICAL COMPLICATION Assessment/Plan EXTUBATED ON NRB MASK FOR 02 SUPPORT MAY NEED REINTUBATION GOALS OF CARE = FULL CODE PALLIATIVE CARE FOR DISCUSSION WITH FAMILY OVERALL PROGNOSIS IS POOR AND PATIENT SHOULD BE DNR/DNI WITH HER ADVANCED AGE AND COMORBIDITIES IV ABX PER ID PULMONARY/ID/NEPHROLOGY CONSULTS ALL APPRECIATED. WOUND CARE, FREQUENT TURNING FOR OFFLOADING PRESSURE TO SACRAL AREA. SWALLOW EVAL ASPIRATION R/O DVT PROPHYLAXIS PAIN MEDS
[2018-11-05] MEDS ORDERED: DEXTROSE 5%-WATER 100 ML IVPB ONE (09:16)
--- NOTE | 2018-11-05 09:41 | CONSULT ---
Admitting History and Physical - Primary Care Physician PCP: Wei Lam - Admission History of Present Illness: The patient is an 88-year-old female, with a past medical history of HTN, DM, gastroparesis, CAD, afib (on eliquis), PSVT, diastolic CHF (on Lasix), hypothyroidism, and hx of NSTEMI, presented to the ED with AMS with (+) CVA on repeat CT head. Required intubation upon admission 10/29, and extubated 11/02. Acute Right cerebral dysfunction with acute Right MCA infarct, left hemiplegia and left homonomous hemianopsia Toxic-Metabolic Encephalopathy (urosepsis, CHF) Septic Shock CVA-R sided Ischemic Acute Respiratory Failure Afib with RVR On NRB. Pt is NPO. Pt known to me from July admission, at which time she was verbal, fully oriented, German speaking. 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: Dementia, Vertigo Cardiovascular: Yes: AFIB, CAD, HTN, Hyperlipdemia Pulmonary: Yes: COPD Gastrointestinal: Yes: Constipation, Hiatal Hernia, Other Heme/Onc: Yes: Cancer (thyroid) Endocrine: Yes: Diabetes Mellitus (insulin-dependent for years -> uncontrolled) , Hypothyroidism Dermatology: Yes: Cellulitis (in past, with chronic and intermittent edema) - Past Surgical History Past Surgical History: Yes: Cholecystectomy, Stent (coronary stents), Upper Endoscopy - Smoking History Smoking history: Unknown if ever smoked Have you smoked in the past 12 months: No Aproximately how many cigarettes per day: 0 If you are a former smoker, when did you quit?: 1984 - Alcohol/Substance Use Hx Alcohol Use: No History of Substance Use: reports: None - Social History ADL: Family Assistance History of Recent Travel: No History - Admission Reason For Visit: RESPIRATORY FAILURE,ALTERED MENTAL STATUS - Diagnostics X-ray: Report Reviewed CT Scan: Report Reviewed - General Mental Status: Lethargic Speech Evaluation - Communication Primary Language: MONGOLIAN Communication: Yes: Non-Communicable (lethargic. reported to be non verbal when arousable.) - Speech Characteristics Articulation: Yes: Imprecise - Language/Auditory Comprehension Observation: Comprehends Conversational Speech: Yes - Swallow Evaluation/Bedside Assessment Current Nutritional Intake: NPO A-P Transit: WFL Recommendations - Speech Evaluation, Impression/Plan Impression: Lethargic. Pt did not open eyes/arouse to tactile/auditory stimulation. On NRB. - Dysphagia Impressions/Plan Dysphagia Impressions: Too Lethargic to Assess Recommendations: Palliative Care (Pt is a full code), Other (Please let me know as pt becomes more arousable.) - Recommendations Diet Consistency: NPO Liquids: NPO
[2018-11-05] MEDS: LIPASE/PROTEASE/AMYLASE 36,000 UNIT CAPSULE PO SCH ×3 (09:57→16:29)
[2018-11-05] MEDS: ENOXAPARIN NA (PORCINE) 100 MG/1 ML DISP.SYRIN SQ SCH ×2 (09:57→21:02)
[2018-11-05] MEDS: CEFTRIAXONE 2 GM in DEXTROSE 5%-WATER 100 ML IVPB SCH (09:57)
[2018-11-05] MEDS: AMINO ACIDS/PROTEIN HYDROLYS 30 ML LIQUID.PKT PO SCH ×2 (09:58→16:29)
[2018-11-05] MEDS: PANTOPRAZOLE SODIUM 40 MG VIAL IVPUSH SCH (09:58)
--- NOTE | 2018-11-05 09:59 | CON.NEP ---
Consult Consult Specialty:: nephrology - History of Present Illness Chief Complaint: fluid overload History of Present Illness: Asked to see this 88 year old woman with history of afib, htn, obesity, hypothyroidism, dm who presented less responsive and was intubated and now extubated. Sh ehas become increasingly edematous and nephrology is called. She cant provide a history however. Currently in ICU CT this admission showed a large right MCA infarct. 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, Vertigo Cardio/Vascular: Yes: AFIB, CAD, HTN, Hyperlipdemia Pulmonary: Yes: COPD Gastrointestinal: Yes: Constipation, Hiatal Hernia, Other Endocrine: Yes: Diabetes Mellitus (insulin-dependent for years -> uncontrolled) , Hypothyroidism Dermatology: Yes: Cellulitis (in past, with chronic and intermittent edema) - Past Surgical History Past Surgical History: Yes: Cholecystectomy, Stent (coronary stents), Upper Endoscopy - Alcohol/Substance Use Hx Alcohol Use: No History of Substance Use: reports: None - Smoking History Smoking history: Unknown if ever smoked Have you smoked in the past 12 months: No Aproximately how many cigarettes per day: 0 If you are a former smoker, when did you quit?: 1984 - Social History Usual Living Arrangement: With Child ADL: Family Assistance History of Recent Travel: No Home Medications - Allergies Allergies/Adverse Reactions: Allergies Allergy/AdvReac Type Severity Reaction Status Date / Time vancomycin AdvReac Itching Verified 07/26/18 12:49 - Home Medications Home Medications: Ambulatory Orders Atorvastatin Ca [Lipitor] 20 mg PO HS tablet 02/27/18 Metoprolol Tartrate [Lopressor -] 50 mg PO BID tablet 04/03/18 Sennosides [Senna -] 2 tab PO HS tablet 04/03/18 Insulin (Levemir) [Levemir Vial] 15 units SQ AM units 04/14/18 Escitalopram Oxalate [Lexapro -] 5 mg PO DAILY tablet 04/21/18 Metoclopramide HCl [Reglan -] 10 mg PO TIDAC tablet 04/21/18 Potassium Chloride 40 meq PO DAILY #60 tablet.er 04/21/18 Insulin Aspart [Novolog] 100 unit SQ Q6H PRN 05/03/18 Omeprazole 40 mg PO DAILY 05/03/18 Amino Acids/Protein Hydrolys [Prosource No Carb Liquid Pkt] 30 ml PO BID@0800, 1730 #60 packet 08/08/18 Levothyroxine [Synthroid -] 75 mcg PO DAILY@0700 tablet 08/08/18 Lipase/Protease/Amylase [Dyllan Palomares 36,000 Units Capsule] 1 cap PO TIDCM #90 capsule. 08/08/18 Rifaximin [Xifaxan -] 550 mg PO TID #90 tablet 08/08/18 Family Disease History - Family Disease History Family Disease History: Diabetes: Daughter Review of Systems Unable to obtain ROS, reason: s/p cva Nephrology Consult - Height Height: 4 ft 11 in - Weight Weight: 196 lb 12.8 oz - BMI Body Mass Index (BMI): 39.7 - Lab Results CBC,BMP: CBC, BMP 11/05/18 05:15 11/05/18 05:15 Anion Gap: Anion Gap Anion Gap 6 MMOL/L (8-16) L 11/05/18 05:15 - Imaging Chest X-ray: Report Reviewed Cat Scan: Report Reviewed - Physical Examination Vital Signs: Vital Signs Temperature 97.5 F L 11/05/18 06:40 Pulse Rate 104 H 11/05/18 09:09 Respiratory Rate 24 H 11/05/18 08:00 Blood Pressure 101/87 11/05/18 08:00 O2 Sat by Pulse Oximetry (%) 94 L 11/05/18 09:20 Constitutional: Yes: Well Nourished, No Distress Eyes: Yes: Conjunctiva Clear HENT: Yes: Atraumatic, Normocephalic Neck: Yes: Supple, Trachea Midline Cardiovascular: Yes: Pulse Irregular Respiratory: Yes: Regular, Rhonchi Gastrointestinal: Yes: Normal Bowel Sounds, Soft, Abdomen, Obese Renal/: Yes: Ricketts Present Edema: Yes Edema: LLE: 2+, RLE: 2+ Neurological: Yes: Lethargy Assessment/Plan IMPRESSION 88 year old with acute Right CVA s/p intubation and now extubated. She has become increasingly edematous and has afib being treated. Had GEOFF as well which appears to have resolved with IVF and rate control. Did not seem to have significant proteinuria. Remains in shock requiring pressors PLAN would recommend to continue vasopressin and start lasix drip. Although lasix infusion has not proven to be better than boluses I think in this population of shock patients there maybe a benefit. Her albumin is also very low and this is likely contributing. Would add albumin 25 percent 50 cc q8. Would Start lasix drio at 5mg per hour MV
[2018-11-05 10:10] LABS: ARTERIAL BLD GAS O2 SATURATION 99.1 % (95-98); ARTERIAL BLOOD GAS BASE EXCESS 2.7 meq/l (-2-2); ARTERIAL BLOOD GAS PCO2 37.3 mmHg (35-45); ARTERIAL BLOOD GAS PO2 132 mmHg (80-105); ARTERIAL BLOOD GAS pH 7.46 (7.35-7.45)
[2018-11-05 10:12] LABS: ALLENS TEST POSITIVE
--- NOTE | 2018-11-05 11:44 | PN ---
Teaching Attending Note Name of Resident: Enio Chavez ATTENDING PHYSICIAN STATEMENT I saw and evaluated the patient. I reviewed the resident's note and discussed the case with the resident. I agree with the resident's findings and plan as documented. SUBJECTIVE: Pt seen and examined in the ICU. More lethargic today, now on NRB. Remains on cardizem gtt. OBJECTIVE: Vital Signs Period Temp Pulse Resp BP Sys/Gu Pulse Ox Last 24 Hr 97.5 F-98 F 96-140 18-31 71-127/39-97 93-100 Intake & Output 11/02/18 11/03/18 11/04/18 11/05/18 23:59 23:59 23:59 23:59 Intake Total 3445.7 3495.5 1592 515 Output Total 250 800 600 100 Balance 3195.7 2695.5 992 415 Weight 91.308 kg 91.172 kg 92.578 kg 89.267 kg Gen: lethargic, tachypneic Heart: irregular Lung: scattered rhonchi Abd: soft, nontender Ext: + edema CBC, BMP 11/05/18 05:15 11/05/18 05:15 CXR: increased pulmonary vascular congestion, pleural effusions Active Medications Albumin Human (Albumin Human 25%) 25 gm IVPB BID [facility] Stop: 11/05/18 22:01 Amino Acids (Prosource No Carb Liquid Pkt) 30 ml PO BID@0800,1730 [facility] Last Admin: 11/05/18 09:58 Dose: Not Given Atorvastatin Calcium (Lipitor -) 40 mg PO HS [facility] Last Admin: 11/04/18 22:02 Dose: 40 mg Chlorhexidine Gluconate (Hibiclens For Decolonization -) 1 applic TP HS [facility] Last Admin: 11/04/18 22:02 Dose: 1 applic Diltiazem HCl (Cardizem -) 60 mg PO Q6HPO [facility] Enoxaparin Sodium (Lovenox -) 90 mg SQ BID [facility] Last Admin: 11/05/18 09:57 Dose: 90 mg Furosemide (Lasix Injection -) 40 mg IVPUSH DAILY [facility] Stop: 11/06/18 10:01 Hydrocortisone Sodium Succinate (Solu-Cortef -) 50 mg IVPUSH Q6H-IV [facility] Last Admin: 11/05/18 09:58 Dose: 50 mg Ceftriaxone Sodium 2 gm/ (Dextrose) 100 mls @ 200 mls/hr IVPB DAILY [facility]; Protocol Last Admin: 11/05/18 09:57 Dose: 200 mls/hr Clindamycin Phosphate (Cleocin 600 Mg Premix Ivpb -) 600 mg in 50 mls @ 100 mls /hr IVPB Q8H-IV [facility]; Protocol Last Admin: 11/05/18 09:56 Dose: 100 mls/hr Vasopressin 50 units/ Sodium (Chloride) 100 mls @ 4 mls/hr IVPB ASDIR [facility]; Protocol Last Admin: 11/05/18 03:45 Dose: 2.5 units/hr, 5 mls/hr Diltiazem HCl 125 mg/ Sodium (Chloride) 125 mls @ 5 mls/hr IVPB TITR [facility]; Protocol Last Titration: 11/05/18 00:15 Dose: 15 mg/hr, 15 mls/hr Insulin Aspart (Novolog Vial Sliding Scale -) 1 vial SQ Q6HPO [facility]; Protocol Last Admin: 11/05/18 05:53 Dose: 2 units Levothyroxine Sodium (Synthroid -) 75 mcg PO DAILY@0700 [facility] Last Admin: 11/05/18 06:06 Dose: 75 mcg Metoclopramide HCl (Reglan -) 10 mg PO TIDAC [facility] Last Admin: 11/05/18 06:06 Dose: 10 mg Metoprolol Tartrate (Lopressor Injection -) 5 mg IVPUSH Q4H PRN PRN Reason: TACHYCARDIA Last Admin: 11/05/18 00:53 Dose: 5 mg Pancrelipase (Creon Dr 36,000 Units Capsule) 1 cap PO TIDCM [facility] Last Admin: 11/05/18 09:57 Dose: Not Given Pantoprazole Sodium (Protonix Iv) 40 mg IVPUSH DAILY [facility] Last Admin: 11/05/18 09:58 Dose: 40 mg Senna (Senna -) 2 tab PO HS [facility] Last Admin: 11/04/18 22:03 Dose: 2 tab ASSESSMENT AND PLAN: Acute Respiratory Failure Pneumonia likely Aspiration UTI Septic Shock Atrial Fibrillation/Flutter with RVR LV Diastolic Dysfunction r/o CVA Acute Kidney Injury DM Hypothyroidism Hyperlipidemia - albumin/lasix today - monitor urine output, creatinine - continue antibiotics - titrate pressors to maintain MAP >65 - continue stress dose steroids - replete lytes - rate control with cardizem gtt, transition to PO - off anticoagulation due to history of GI bleed - taper FiO2 to keep SpO2 >90% - aspiration precautions - continue discussions regarding goals of care, advanced directive, may need re -intubation - DVT/GI prophylaxis - continue ICU monitoring critical care time spent in reviewing chart, evaluating patient and formulating plan 35 min
[2018-11-05] MEDS ORDERED: FUROSEMIDE 40 MG/4 ML INJECTABLE VIAL ONE (11:46)
--- NOTE | 2018-11-05 11:48 | PN ---
Progress Note, Physician History of Present Illness: DOING POORLY AGONAL BREATHING PATTERN ON NRB MASK ON LOW DOSE PRESSORS AFEBRILE - Current Medication List Current Medications: Active Medications Albumin Human (Albumin Human 25%) 25 gm IVPB BID [facility] Stop: 11/05/18 22:01 Amino Acids (Prosource No Carb Liquid Pkt) 30 ml PO BID@0800,1730 [facility] Last Admin: 11/05/18 09:58 Dose: Not Given Atorvastatin Calcium (Lipitor -) 40 mg PO HS [facility] Last Admin: 11/04/18 22:02 Dose: 40 mg Chlorhexidine Gluconate (Hibiclens For Decolonization -) 1 applic TP HS [facility] Last Admin: 11/04/18 22:02 Dose: 1 applic Diltiazem HCl (Cardizem -) 60 mg PO Q6HPO [facility] Enoxaparin Sodium (Lovenox -) 90 mg SQ BID [facility] Last Admin: 11/05/18 09:57 Dose: 90 mg Furosemide (Lasix Injection -) 40 mg IVPUSH DAILY [facility] Stop: 11/06/18 10:01 Hydrocortisone Sodium Succinate (Solu-Cortef -) 50 mg IVPUSH Q6H-IV [facility] Last Admin: 11/05/18 09:58 Dose: 50 mg Ceftriaxone Sodium 2 gm/ (Dextrose) 100 mls @ 200 mls/hr IVPB DAILY [facility]; Protocol Last Admin: 11/05/18 09:57 Dose: 200 mls/hr Clindamycin Phosphate (Cleocin 600 Mg Premix Ivpb -) 600 mg in 50 mls @ 100 mls /hr IVPB Q8H-IV [facility]; Protocol Last Admin: 11/05/18 09:56 Dose: 100 mls/hr Vasopressin 50 units/ Sodium (Chloride) 100 mls @ 4 mls/hr IVPB ASDIR [facility]; Protocol Last Admin: 11/05/18 03:45 Dose: 2.5 units/hr, 5 mls/hr Diltiazem HCl 125 mg/ Sodium (Chloride) 125 mls @ 5 mls/hr IVPB TITR [facility]; Protocol Last Titration: 11/05/18 00:15 Dose: 15 mg/hr, 15 mls/hr Insulin Aspart (Novolog Vial Sliding Scale -) 1 vial SQ Q6HPO [facility]; Protocol Last Admin: 11/05/18 05:53 Dose: 2 units Levothyroxine Sodium (Synthroid -) 75 mcg PO DAILY@0700 [facility] Last Admin: 11/05/18 06:06 Dose: 75 mcg Metoclopramide HCl (Reglan -) 10 mg PO TIDAC [facility] Last Admin: 11/05/18 06:06 Dose: 10 mg Metoprolol Tartrate (Lopressor Injection -) 5 mg IVPUSH Q4H PRN PRN Reason: TACHYCARDIA Last Admin: 11/05/18 00:53 Dose: 5 mg Pancrelipase (Charuon Dr 36,000 Units Capsule) 1 cap PO TIDCM [facility] Last Admin: 11/05/18 09:57 Dose: Not Given Pantoprazole Sodium (Protonix Iv) 40 mg IVPUSH DAILY [facility] Last Admin: 11/05/18 09:58 Dose: 40 mg Senna (Senna -) 2 tab PO HS [facility] Last Admin: 11/04/18 22:03 Dose: 2 tab - Objective Vital Signs: Vital Signs Temperature 97.5 F L 11/05/18 06:40 Pulse Rate 96 H 11/05/18 11:00 Respiratory Rate 18 11/05/18 11:00 Blood Pressure 86/55 L 11/05/18 10:00 O2 Sat by Pulse Oximetry (%) 94 L 11/05/18 09:20 Constitutional: Yes: No Distress, Obese Cardiovascular: Yes: Regular Rate and Rhythm, S1, S2 Respiratory: Yes: Diminished Gastrointestinal: Yes: Normal Bowel Sounds, Soft. No: Tenderness Edema: Yes Labs: CBC, BMP 11/05/18 05:15 11/05/18 05:15 INR, PTT INR 1.27 (0.83-1.09) H 10/29/18 19:00 Assessment/Plan S/P CVA RESP FAILURE S/P EXTUBATION R/O ASP PNEUMONIA + SPUTUM MRSA AZOTEMIA CONTINUE CLINDAMYCIN/ CEFTRIAXONE PROGNOSIS POOR
[2018-11-05] MEDS: ALBUMIN HUMAN 25% 12.5 GM/50 ML VIAL IVPB SCH ×2 (12:19→21:00)
[2018-11-05] MEDS: FUROSEMIDE 40 MG/4 ML INJECTABLE VIAL IVPUSH SCH (12:23)
--- NOTE | 2018-11-05 13:38 | PN ---
Physical Exam: SUBJECTIVE: Patient seen and examined at the bedside. This morning, patient with increased work of breathing and using accessory muscles. Placed on non- rebreather and tolerating well. Daughter, Ros Dwyer, called and patient's status was explained, daughter stated that if necessary, she would want the patient intubated. Patient no longer able to follow commands or respond to basic questions, mental status decreased. Per the patient's family, would want DNR, and want intubation, but proper transfer of surrogate power will happen tomorrow at family meeting. OBJECTIVE: Vital Signs Period Temp Pulse Resp BP Sys/Gu Pulse Ox Last 24 Hr 97.5 F-98 F 96-140 18-31 71-127/39-97 93-100 GENERAL: Obtunded, unable to follow commands or respond to questioning HEENT: PERRL, unable to assess ocular movements, wet mucous membranes NECK: No JVD LUNGS: coarse breath sounds improved, no wheezes, no crackles. Accessory muscle noted. Non-rebreather on HEART: Tachycardic with irregularly irregular rhythm, S1, S2 without murmur ABDOMEN: Soft, NT/ND, hypoactive bowel sounds, no guarding EXTREMITIES: 1+ DP pulses, warm, well-perfused, 2+ edema to the knee b/l NEUROLOGICAL: Limited exam due to condition, PEERL, L sided flaccid paralysis, withdrawal movements R>L to painful stimuli SKIN: Warm, dry, no rashes or lesions noted. Laboratory Results - last 24 hr 11/04/18 11/04/18 11/05/18 16:45 23:28 00:01 WBC RBC Hgb Hct MCV MCH MCHC RDW Plt Count MPV Absolute Neuts (auto) Neutrophils % Lymphocytes % Monocytes % Eosinophils % Basophils % Nucleated RBC % Anticoagulation Therapy Puncture Site ABG pH ABG pCO2 at Pt Temp ABG pO2 at Pt Temp ABG HCO3 ABG O2 Sat (Measured) ABG O2 Content ABG Base Excess Davi Test O2 Delivery Device Oxygen Flow Rate Vent Mode Vent Rate Mechanical Rate Pressure Support Vent Sodium 145 Potassium 3.5 Chloride 110 H Carbon Dioxide 29 Anion Gap 6 L BUN 26.2 H Creatinine 0.7 Est GFR (CKD-EPI)AfAm 90.29 Est GFR (CKD-EPI)NonAf 77.90 POC Glucometer 125 125 Random Glucose 141 H Calcium 6.6 L* Magnesium 1.8 Total Bilirubin AST ALT Alkaline Phosphatase Total Protein Albumin 11/05/18 11/05/18 11/05/18 02:15 05:15 05:15 WBC 11.7 H RBC 2.38 L Hgb 8.2 L Hct 24.8 L MCV 104.4 H MCH 34.6 H MCHC 33.1 RDW 22.9 H Plt Count 249 D MPV 8.6 Absolute Neuts (auto) 10.2 H Neutrophils % 86.9 H Lymphocytes % 7.8 L D Monocytes % 5.0 Eosinophils % 0.0 Basophils % 0.3 Nucleated RBC % 0 Anticoagulation Therapy No Result Required. Puncture Site Right radial ABG pH 7.42 ABG pCO2 at Pt Temp 42.6 ABG pO2 at Pt Temp 57.3 L ABG HCO3 27.1 H ABG O2 Sat (Measured) 87.0 L ABG O2 Content 10.3 L ABG Base Excess 2.8 H Davi Test Positive O2 Delivery Device No Result Required. Oxygen Flow Rate 100 Vent Mode No Result Required. Vent Rate No Result Required. Mechanical Rate No Result Required. Pressure Support Vent No Result Required. Sodium 146 H Potassium 4.1 Chloride 111 H Carbon Dioxide 29 Anion Gap 6 L BUN 26.6 H Creatinine 0.7 Est GFR (CKD-EPI)AfAm 90.29 Est GFR (CKD-EPI)NonAf 77.90 POC Glucometer Random Glucose 204 H Calcium 6.4 L* Magnesium Total Bilirubin 0.4 AST 42 H ALT 23 Alkaline Phosphatase 62 Total Protein 4.5 L Albumin 1.4 L 11/05/18 11/05/18 11/05/18 05:51 09:50 11:38 WBC RBC Hgb Hct MCV MCH MCHC RDW Plt Count MPV Absolute Neuts (auto) Neutrophils % Lymphocytes % Monocytes % Eosinophils % Basophils % Nucleated RBC % Anticoagulation Therapy No Result Required. Puncture Site Right radial ABG pH 7.46 H ABG pCO2 at Pt Temp 37.3 ABG pO2 at Pt Temp 132 H ABG HCO3 26.1 ABG O2 Sat (Measured) 99.1 H ABG O2 Content 11.3 L ABG Base Excess 2.7 H Davi Test Positive O2 Delivery Device No Result Required. Oxygen Flow Rate Yes Vent Mode No Result Required. Vent Rate No Result Required. Mechanical Rate No Result Required. Pressure Support Vent No Result Required. Sodium Potassium Chloride Carbon Dioxide Anion Gap BUN Creatinine Est GFR (CKD-EPI)AfAm Est GFR (CKD-EPI)NonAf POC Glucometer 195 199 Random Glucose Calcium Magnesium Total Bilirubin AST ALT Alkaline Phosphatase Total Protein Albumin Active Medications Generic Name Dose Route Start Last Admin Trade Name Freq PRN Reason Stop Dose Admin Albumin Human 25 gm 11/05/18 12:00 11/05/18 12:19 Albumin Human 25% IVPB 11/05/18 22:01 25 gm BID [facility] Administration Amino Acids 30 ml 10/30/18 08:00 11/05/18 09:58 Prosource No Carb Liquid Pkt PO Not Given BID@0800,1730 [facility] Atorvastatin Calcium 40 mg 11/01/18 08:22 11/04/18 22:02 Lipitor - PO 40 mg HS [facility] Administration Chlorhexidine Gluconate 1 applic 10/30/18 22:00 11/04/18 22:02 Hibiclens For Decolonization - TP 1 applic HS [facility] Administration Diltiazem HCl 60 mg 11/04/18 17:48 Cardizem - PO Q6HPO [facility] Enoxaparin Sodium 90 mg 11/02/18 12:00 11/05/18 09:57 Lovenox - SQ 90 mg BID [facility] Administration Furosemide 40 mg 11/05/18 12:00 11/05/18 12:23 Lasix Injection - IVPUSH 11/06/18 10:01 40 mg DAILY [facility] Administration Hydrocortisone Sodium Succinate 50 mg 10/30/18 11:45 11/05/18 09:58 Solu-Cortef - IVPUSH 50 mg Q6H-IV [facility] Administration Ceftriaxone Sodium 2 gm/ 100 mls @ 200 mls/hr 11/01/18 11:30 11/05/18 09:57 Dextrose IVPB 200 mls/hr DAILY [facility] Administration Protocol Clindamycin Phosphate 600 mg in 50 mls @ 100 mls/hr 11/02/18 13:15 11/05/18 09:56 Cleocin 600 Mg Premix Ivpb - IVPB 100 mls/hr Q8H-IV [facility] Administration Protocol Vasopressin 50 units/ Sodium 100 mls @ 4 mls/hr 11/04/18 21:30 11/05/18 03:45 Chloride IVPB 2.5 units/hr ASDIR [facility] 5 mls/hr Administration Protocol 2 UNITS/HR Diltiazem HCl 125 mg/ Sodium 125 mls @ 5 mls/hr 11/04/18 21:45 11/05/18 00:15 Chloride IVPB 15 mg/hr TITR [facility] 15 mls/hr Titration Protocol 5 MG/HR Insulin Aspart 1 vial 10/30/18 06:00 11/05/18 11:54 Novolog Vial Sliding Scale - SQ 2 units Q6HPO [facility] Administration Protocol Levothyroxine Sodium 75 mcg 10/30/18 07:00 11/05/18 06:06 Synthroid - PO 75 mcg DAILY@0700 [facility] Administration Metoclopramide HCl 10 mg 10/30/18 07:00 11/05/18 11:54 Reglan - PO 10 mg TIDAC [facility] Administration Metoprolol Tartrate 5 mg 11/05/18 00:44 11/05/18 00:53 Lopressor Injection - IVPUSH 5 mg Q4H PRN Administration TACHYCARDIA Pancrelipase 1 cap 10/30/18 08:00 11/05/18 11:54 Crelalo Palomares 36,000 Units Capsule PO Not Given TIDCM [facility] Pantoprazole Sodium 40 mg 11/03/18 11:00 11/05/18 09:58 Protonix Iv IVPUSH 40 mg DAILY [facility] Administration Senna 2 tab 10/30/18 22:00 11/04/18 22:03 Senna - PO 2 tab HS [facility] Administration ASSESSMENT/PLAN: Kathleen Saini is an 82 year old female with a PMHx of HTN, T2DM, CAD (NSTEMI) , afib (not on AC due to prior bleed), HFpEF who was admitted to the ICU after developing respiratory failure likely secondary to distributive vs cardiogenic shock. Acute Respiratory Failure Heart Failure with Preserved Ejection Fraction Septic Shock from possible aspiration PNA A fib with RVR GEOFF R sided Ischemic Stroke Hypothyroid HLD NEUROLOGIC - intubated and sedated - questionable history of facial droop - CT head showing small chronic R occipital cortical infarct, chronic ischemic changes, no acute pathology noted - repeat head CT showing large R sided nonhemorrhagic stroke, ? small thalamic infarct on the R - Dr. Fairbanks consulted, recs appreciated, start AC if indicated by cardiology CARDIOLOGY - tachycardia resolved with diltiazem push - diltiazem drip resumed due to patient's NPO status s/p extubation, unable to tolerate transition to PO - Lopressor 5mg q4h prn tachycardia - previous echo showing EF 60-65% - new echo showing EF 60%, mild dilation of R ventricle, reduced R systolic function, moderate to severe mitral regurg - titrate vasopressin down as tolerated - CVP monitoring and fluids as necessary - maintain MAP>65 - troponins 1.03-->1.21-->1.11-->0.71 - cardiology consulted, recs appreciated - Lipitor increased to 40mg in setting of new stroke - hydrocortisone 50mg q6h - CHADS-VASC score of 8, 10.8% stroke risk per year in setting of afib/ irregular rhythm, high risk of further cardioembolic strokes - HAS-BLED Score of 3, high risk of bleeding - spoken to family regarding starting anticoagulation with heparin drip protocol , risks and benefits were described, family aware and agreeable - PTT supratherapeutic, decision to switch to Lovenox sq RESPIRATORY - on non-rebreather - CXR showing congestive changes - ABG showing hypoxia, no hypercapneia - continue to monitor patient in setting of accessory muscle use, may become hypercapneic - family stated that if respiratory status decompensates, would want intubation - low threshold for reintubation, risks and benefits explained to family regarding intubation RENAL - GEOFF likely from cardiogenic vs shock vs autonomic shock - no fluids in the setting of volume overloaded status - Given albumin x2 - Lasix 40mg IV x2 GASTROINTESTINAL - no acute issues GENITOURINARY - no acute issues INFECTIOUS DISEASE - septic shock likely from PNA (?aspiration) - lactic acid <2 - covered with clindamycin and ceftriaxone - UA showing 2+ LE, 9 bacteria, unlikely contributor to sepsis - blood cultures negative - sputum cultures showing presumptive MRSA - Dr. Cisse consulted, recs appreciated ENDOCRINE - BGM ACHS - ISS - Levemir 15 units - continue home synthroid HEMATOLOGY - leukocytosis likely from infection MUSCULOSKELETAL - no acute issues PSYCHIATRY - continue home escitalopram F/E/N - no standing fluids - continue to monitor electrolytes and replete as necessary - NPO pending speech and swallow, s/p stroke LINES - R IJ inserted 10/30 PROPHYLAXIS - Lovenox 90mg bid CODE - full code - in the setting of patient's comorbidities, increased morbidity and mortality is expected, family was made aware of grave prognosis - family wanting DNR, pending transfer of surrogate power - family meeting tomorrow DISPO - continue to monitor in ICU CASE DISCUSSED WITH DR. RIZVI AND PRIMARY TEAM FRANKLIN MARQUIS DO - PGY-1 INTERNAL MEDICINE Visit type - Emergency Visit Emergency Visit: No - New Patient This patient is new to me today: No - Critical Care Critical Care patient: Yes Total Critical Care Time (in minutes): 40 Critical Care Statement: The care of this patient involved high complexity decision making to prevent further life threatening deterioration of the patient 's condition and/or to evaluate & treat vital organ system(s) failure or risk of failure.
[2018-11-05 14:49] LABS: ANISOCYTOSIS 2+; MACROCYTOSIS 1+; OVALOCYTE 1+; PLATELET ESTIMATE NORMAL
[2018-11-05] MEDS: CALCIUM CARBONATE SUSPENSION - 500 MG/5 ML ML PO SCH (17:43)
[2018-11-05] MEDS: CHLORHEXIDINE GLUCONATE 4% CLEANSER FOR DECOLONIZATION TP SCH (21:02)
[2018-11-05] MEDS: ATORVASTATIN CA 40 MG TABLET (FP) PO SCH (21:03)
[2018-11-05] MEDS: SENNOSIDES 8.6MG TABLET (FP) PO SCH (21:04)
[2018-11-05] MEDS: DILTIAZEM INJECTION 125 MG in SODIUM CHLORIDE 100 ML IVPB SCH (21:04)
[2018-11-05 21:45] LABS: ARTERIAL BLD GAS O2 SATURATION 99.2 % (95-98); ARTERIAL BLOOD GAS PCO2 40.9 mmHg (35-45); ARTERIAL BLOOD GAS PO2 140 mmHg (80-105); ARTERIAL BLOOD GAS pH 7.44 (7.35-7.45)
[2018-11-05 21:50] LABS: ALLENS TEST POSITIVE
[2018-11-06] MEDS: INSULIN SLIDING SCALE (NOVOLOG) 1 VIAL SQ SCH ×4 (00:10→18:18)
[2018-11-06] MEDS: dilTIAZem HCL 60 MG TABLET (FP) PO SCH ×4 (00:10→18:18)
--- NOTE | 2018-11-06 00:14 | PN ---
Progress Note, Physician Chief Complaint: lethargic weak family at bedside,waiting 89years male to make dnr decision given current critical illness - Current Medication List Current Medications: Active Medications Amino Acids (Prosource No Carb Liquid Pkt) 30 ml PO BID@0800,1730 [facility] Last Admin: 11/05/18 16:29 Dose: Not Given Atorvastatin Calcium (Lipitor -) 40 mg PO HS [facility] Last Admin: 11/05/18 21:03 Dose: 40 mg Calcium Carbonate (Calcium Carb Oral Suspension -) 500 mg PO DAILY [facility] Last Admin: 11/05/18 17:43 Dose: 500 mg Chlorhexidine Gluconate (Hibiclens For Decolonization -) 1 applic TP HS [facility] Last Admin: 11/05/18 21:02 Dose: 1 applic Diltiazem HCl (Cardizem -) 60 mg PO Q6HPO [facility] Last Admin: 11/06/18 00:10 Dose: 60 mg Enoxaparin Sodium (Lovenox -) 90 mg SQ BID [facility] Last Admin: 11/05/18 21:02 Dose: 90 mg Furosemide (Lasix Injection -) 40 mg IVPUSH DAILY [facility] Stop: 11/06/18 10:01 Last Admin: 11/05/18 12:23 Dose: 40 mg Hydrocortisone Sodium Succinate (Solu-Cortef -) 50 mg IVPUSH Q6H-IV [facility] Last Admin: 11/05/18 20:58 Dose: 50 mg Ceftriaxone Sodium 2 gm/ (Dextrose) 100 mls @ 200 mls/hr IVPB DAILY [facility]; Protocol Last Admin: 11/05/18 09:57 Dose: 200 mls/hr Clindamycin Phosphate (Cleocin 600 Mg Premix Ivpb -) 600 mg in 50 mls @ 100 mls /hr IVPB Q8H-IV [facility]; Protocol Last Admin: 11/05/18 17:44 Dose: 100 mls/hr Vasopressin 50 units/ Sodium (Chloride) 100 mls @ 4 mls/hr IVPB ASDIR [facility]; Protocol Last Admin: 11/05/18 22:16 Dose: Not Given Diltiazem HCl 125 mg/ Sodium (Chloride) 125 mls @ 5 mls/hr IVPB TITR [facility]; Protocol Last Admin: 11/05/18 21:04 Dose: Not Given Insulin Aspart (Novolog Vial Sliding Scale -) 1 vial SQ Q6HPO [facility]; Protocol Last Admin: 11/06/18 00:10 Dose: Not Given Levothyroxine Sodium (Synthroid -) 75 mcg PO DAILY@0700 [facility] Last Admin: 11/05/18 06:06 Dose: 75 mcg Metoclopramide HCl (Reglan -) 10 mg PO TIDAC [facility] Last Admin: 11/05/18 16:29 Dose: 10 mg Metoprolol Tartrate (Lopressor Injection -) 5 mg IVPUSH Q4H PRN PRN Reason: TACHYCARDIA Last Admin: 11/05/18 00:53 Dose: 5 mg Pancrelipase (Creon Dr 36,000 Units Capsule) 1 cap PO TIDCM [facility] Last Admin: 11/05/18 16:29 Dose: Not Given Pantoprazole Sodium (Protonix Iv) 40 mg IVPUSH DAILY [facility] Last Admin: 11/05/18 09:58 Dose: 40 mg Senna (Senna -) 2 tab PO HS [facility] Last Admin: 11/05/18 21:04 Dose: 2 tab - Objective Vital Signs: Vital Signs Temperature 98.2 F 11/05/18 22:00 Pulse Rate 120 H 11/05/18 23:00 Respiratory Rate 24 H 11/05/18 23:00 Blood Pressure 79/54 L 11/05/18 23:00 O2 Sat by Pulse Oximetry (%) 94 L 11/05/18 09:20 Constitutional: Yes: Moderate Distress Eyes: Yes: PERRL HENT: Yes: Normocephalic Neck: Yes: Trachea Midline Cardiovascular: Yes: Tachycardia, Murmur Respiratory: Yes: On BiPap, Rhonchi, SOB, Tachypnea Gastrointestinal: Yes: Abdomen, Obese Genitourinary: Yes: WNL Musculoskeletal: Yes: Joint Swelling, Muscle Pain, Muscle Weakness Edema: LUE: 2+, RUE: 2+, LLE: 3+, RLE: 3+ Integumentary: Yes: Erythema, Pressure Ulcer, Onychomycosis, Venous Stasis Changes Neurological: Yes: Lethargy Labs: CBC, BMP 11/05/18 05:15 11/05/18 05:15 INR, PTT INR 1.27 (0.83-1.09) H 10/29/18 19:00 Problem List - Problems (1) Diabetes mellitus with nonketotic hyperosmolarity Code(s): E11.00 - TYPE 2 DIAB W HYPROSM W/O NONKET HYPRGLY-HYPROS COMA ([facility]) (2) Altered mental status Code(s): R41.82 - ALTERED MENTAL STATUS, UNSPECIFIED Qualifiers: Altered mental status type: unspecified Qualified Code(s): R41.82 - Altered mental status, unspecified (3) CVA (cerebral vascular accident) Code(s): I63.9 - CEREBRAL INFARCTION, UNSPECIFIED (4) Elevated troponin Code(s): R74.8 - ABNORMAL LEVELS OF OTHER SERUM ENZYMES (5) Respiratory failure Code(s): J96.90 - RESPIRATORY FAILURE, UNSP, UNSP W HYPOXIA OR HYPERCAPNIA Qualifiers: Chronicity: acute Respiratory failure complication: hypoxia Qualified Code(s): J96.01 - Acute respiratory failure with hypoxia (6) SVT (supraventricular tachycardia) Code(s): I47.1 - SUPRAVENTRICULAR TACHYCARDIA (7) Type 2 diabetes mellitus with hyperosmolarity without nonketotic hyperglycemic-hyperosmolar coma ([facility]) Code(s): E11.00 - TYPE 2 DIAB W HYPROSM W/O NONKET HYPRGLY-HYPROS COMA ([facility]) Assessment/Plan Current Active Problems Altered mental status (Acute) CVA (cerebral vascular accident) (Acute) Diabetes mellitus with nonketotic hyperosmolarity (Acute) Elevated troponin (Acute) NSVT (nonsustained ventricular tachycardia) (Acute) Respiratory failure (Acute) Respiratory failure (Acute) SVT (supraventricular tachycardia) (Acute) Abnormal Lab Results 11/05/18 11/05/18 11/05/18 00:01 02:15 05:15 WBC 11.7 H RBC 2.38 L Hgb 8.2 L Hct 24.8 L MCV 104.4 H MCH 34.6 H RDW 22.9 H Absolute Neuts (auto) 10.2 H Neutrophils % 86.9 H Lymphocytes % 7.8 L D ABG pH ABG pO2 at Pt Temp 57.3 L ABG HCO3 27.1 H ABG O2 Sat (Measured) 87.0 L ABG O2 Content 10.3 L ABG Base Excess 2.8 H Sodium Chloride 110 H Anion Gap 6 L BUN 26.2 H Random Glucose 141 H Calcium 6.6 L* AST Total Protein Albumin 08/08/1911/05/18 11/05/18 05:15 09:50 21:30 WBC RBC Hgb Hct MCV MCH RDW Absolute Neuts (auto) Neutrophils % Lymphocytes % ABG pH 7.46 H ABG pO2 at Pt Temp 132 H 140 H ABG HCO3 ABG O2 Sat (Measured) 99.1 H 99.2 H ABG O2 Content 11.3 L 10.1 L ABG Base Excess 2.7 H 3.0 H Sodium 146 H Chloride 111 H Anion Gap 6 L BUN 26.6 H Random Glucose 204 H Calcium 6.4 L* AST 42 H Total Protein 4.5 L Albumin 1.4 L plan: bgm coverage scale supportive care family accepting intubation but no cpr
[2018-11-06] MEDS: CLINDAMYCIN 600MG PREMIX IVPB 600 MG/50 ML BAG IVPB SCH ×3 (02:19→18:18)
[2018-11-06] MEDS: HYDROCORTISONE SOD SUCCINATE 100 MG/2 ML VIAL IVPUSH SCH ×4 (02:49→20:54)
[2018-11-06] MEDS ORDERED: PT OWN MED DRAWER 7, Y5N ONE ×2 (05:50→08:51)
[2018-11-06] MEDS: LEVOTHYROXINE NA 75 MCG TABLET (FP) PO SCH (06:30)
[2018-11-06] MEDS: METOCLOPRAMIDE HCL 10 MG TABLET (FP) PO SCH ×3 (06:30→16:38)
[2018-11-06 06:57] LABS: HEMOGLOBIN 5.9 GM/dL (10.7-15.3); MCH 35.9 pg (25.7-33.7); MCHC 34.5 g/dl (32.0-36.0); MEAN CELL VOLUME 104.1 fl (80-96); MEAN PLT VOLUME 8.5 fl (7.5-11.1); PLATELET COUNT 206 K/MM3 (134-434); RBC 1.63 M/mm3 (3.60-5.2); RDW 22.8 % (11.6-15.6)
[2018-11-06 07:23] LABS: ALBUMIN 1.8 g/dl (3.4-5.0); BILIRUBIN,TOTAL 0.4 mg/dL (0.2-1); BLOOD UREA NITROGEN 27.8 mg/dL (7-18); CREATININE 0.7 mg/dL (0.55-1.3); MAGNESIUM 1.9 mg/dL (1.8-2.4); PHOSPHOROUS 3.4 mg/dL (2.5-4.9); POTASSIUM 3.7 mmol/L (3.5-5.1); TOT PROT 4.2 g/dl (6.4-8.2)
[2018-11-06 07:53] LABS: CALCIUM 6.6 mg/dL (8.5-10.1)
[2018-11-06 08:24] LABS: MCH 35.6 pg (25.7-33.7); MCHC 34.1 g/dl (32.0-36.0); MEAN CELL VOLUME 104.4 fl (80-96); MEAN PLT VOLUME 8.3 fl (7.5-11.1); PLATELET COUNT 214 K/MM3 (134-434); RBC 1.63 M/mm3 (3.60-5.2); RDW 22.5 % (11.6-15.6); WHITE BLOOD COUNT 9.1 K/mm3 (4.0-10.0)
[2018-11-06 08:29] LABS: HEMOGLOBIN 5.8 GM/dL (10.7-15.3)
--- NOTE | 2018-11-06 08:45 | PN ---
Progress Note, Physician - Current Medication List Current Medications: Active Medications Amino Acids (Prosource No Carb Liquid Pkt) 30 ml PO BID@0800,1730 [facility] Last Admin: 11/05/18 16:29 Dose: Not Given Atorvastatin Calcium (Lipitor -) 40 mg PO HS [facility] Last Admin: 11/05/18 21:03 Dose: 40 mg Calcium Carbonate (Calcium Carb Oral Suspension -) 500 mg PO DAILY [facility] Last Admin: 11/05/18 17:43 Dose: 500 mg Chlorhexidine Gluconate (Hibiclens For Decolonization -) 1 applic TP HS [facility] Last Admin: 11/05/18 21:02 Dose: 1 applic Diltiazem HCl (Cardizem -) 60 mg PO Q6HPO [facility] Last Admin: 11/06/18 06:25 Dose: Not Given Furosemide (Lasix Injection -) 40 mg IVPUSH DAILY [facility] Stop: 11/06/18 10:01 Last Admin: 11/05/18 12:23 Dose: 40 mg Hydrocortisone Sodium Succinate (Solu-Cortef -) 50 mg IVPUSH Q6H-IV [facility] Last Admin: 11/06/18 02:49 Dose: 50 mg Ceftriaxone Sodium 2 gm/ (Dextrose) 100 mls @ 200 mls/hr IVPB DAILY [facility]; Protocol Last Admin: 11/05/18 09:57 Dose: 200 mls/hr Clindamycin Phosphate (Cleocin 600 Mg Premix Ivpb -) 600 mg in 50 mls @ 100 mls /hr IVPB Q8H-IV [facility]; Protocol Last Admin: 11/06/18 02:19 Dose: 100 mls/hr Vasopressin 50 units/ Sodium (Chloride) 100 mls @ 4 mls/hr IVPB ASDIR [facility]; Protocol Last Titration: 11/06/18 01:00 Dose: 2 units/hr, 4 mls/hr Insulin Aspart (Novolog Vial Sliding Scale -) 1 vial SQ Q6HPO [facility]; Protocol Last Admin: 11/06/18 06:30 Dose: 2 units Levothyroxine Sodium (Synthroid -) 75 mcg PO DAILY@0700 [facility] Last Admin: 11/06/18 06:30 Dose: 75 mcg Metoclopramide HCl (Reglan -) 10 mg PO TIDAC [facility] Last Admin: 11/06/18 06:30 Dose: 10 mg Metoprolol Tartrate (Lopressor Injection -) 5 mg IVPUSH Q4H PRN PRN Reason: TACHYCARDIA Last Admin: 11/05/18 00:53 Dose: 5 mg Pancrelipase (Creon Dr 36,000 Units Capsule) 1 cap PO TIDCM [facility] Last Admin: 11/05/18 16:29 Dose: Not Given Pantoprazole Sodium (Protonix Iv) 40 mg IVPUSH DAILY [facility] Last Admin: 11/05/18 09:58 Dose: 40 mg Senna (Senna -) 2 tab PO HS [facility] Last Admin: 11/05/18 21:04 Dose: 2 tab - Objective Vital Signs: Vital Signs Temperature 97.9 F 11/06/18 06:00 Pulse Rate 77 11/06/18 08:00 Respiratory Rate 24 H 11/06/18 08:34 Blood Pressure 104/85 11/06/18 08:00 O2 Sat by Pulse Oximetry (%) 94 L 11/05/18 09:20 Cardiovascular: Yes: S1, S2 Respiratory: Yes: Diminished, On Venti-Mask, Rhonchi Gastrointestinal: Yes: Normal Bowel Sounds, Soft Neurological: Yes: Lethargy, Weakness Labs: CBC, BMP 11/06/18 08:00 11/06/18 05:30 INR, PTT INR 1.27 (0.83-1.09) H 10/29/18 19:00 Assessment/Plan (1) CVA (cerebral vascular accident) Assessment/Plan: -Neurology on board -Head CT scan shows large acute nonhemorrhagic right frontal, temporal, and parietal cortical infarct, involvement of the right frontoparietal coronal radiata Code(s): I63.9 - CEREBRAL INFARCTION, UNSPECIFIED (2) Elevated troponin Assessment/Plan: -cardiology on board -demand ischemia Code(s): R74.8 - ABNORMAL LEVELS OF OTHER SERUM ENZYMES (3) Respiratory failure Assessment/Plan: -extubated -on high flow O2 -Pulm on board -bronchodilators -CXR shows reveals decreasing infiltrative changes at bases -CXR on admission shows progressive congestive findings with bilateral pleural effusions -keep SpO2 >90% Code(s): J96.90 - RESPIRATORY FAILURE, UNSP, UNSP W HYPOXIA OR HYPERCAPNIA (4) Acute diastolic heart failure Assessment/Plan: -cardiology on board -Echo with EF 60% Code(s): I50.31 - ACUTE DIASTOLIC (CONGESTIVE) HEART FAILURE (5) Acute metabolic encephalopathy Assessment/Plan: -ID on board -no leukocytosis -afebrile -BC neg -Sputum culture MRSA -Ceftriaxone, Clindamycin Code(s): G93.41 - METABOLIC ENCEPHALOPATHY (6) CAD (coronary artery disease) Assessment/Plan: -Atorvastatin Code(s): I25.10 - ATHSCL HEART DISEASE OF [place] CORONARY ARTERY W/O ANG PCTRS (7) Hypokalemia Assessment/Plan: -likely 2/2 to npo status -received KCl IVPB -monitor electrolytes daily and replete as needed Code(s): E87.6 - HYPOKALEMIA (8) Sepsis Assessment/Plan: -ID on board -no leukocytosis -afebrile -BC neg -Sputum culture MRSA -Ceftriaxone, Clindamycin -CXR on admission shows progressive congestive findings with bilateral pleural effusions -Vasopressin for hypotension Code(s): A41.9 - SEPSIS, UNSPECIFIED ORGANISM Qualifiers: Sepsis type: sepsis due to unspecified organism Qualified Code(s): A41.9 - Sepsis, unspecified organism (9) Acute renal failure Assessment/Plan: -Renal on board -monitor renal function daily Code(s): N17.9 - ACUTE KIDNEY FAILURE, UNSPECIFIED Qualifiers: Acute renal failure type: unspecified Qualified Code(s): N17.9 - Acute kidney failure, unspecified (10) Afib Assessment/Plan: -Cardiology on board -Diltiazem 30mg q6h -tele monitoring Code(s): I48.91 - UNSPECIFIED ATRIAL FIBRILLATION Qualifiers: Atrial fibrillation type: paroxysmal Qualified Code(s): I48.0 - Paroxysmal atrial fibrillation
[2018-11-06] MEDS ORDERED: DEXTROSE 5%-WATER 100 ML IVPB ONE (08:52)
[2018-11-06] MEDS: AMINO ACIDS/PROTEIN HYDROLYS 30 ML LIQUID.PKT PO SCH ×2 (08:58→16:38)
[2018-11-06] MEDS: LIPASE/PROTEASE/AMYLASE 36,000 UNIT CAPSULE PO SCH ×4 (08:59→16:38)
[2018-11-06] MEDS: CEFTRIAXONE 2 GM in DEXTROSE 5%-WATER 100 ML IVPB SCH (09:03)
[2018-11-06] MEDS: FUROSEMIDE 40 MG/4 ML INJECTABLE VIAL IVPUSH SCH ×2 (09:05→14:20)
[2018-11-06] MEDS: CALCIUM CARBONATE SUSPENSION - 500 MG/5 ML ML PO SCH (09:06)
--- NOTE | 2018-11-06 09:48 | PN ---
Progress Note, Physician Chief Complaint: Pt remains intubated;moving right arm occasionally on her own.pens eyes slightly to verbal request. History of Present Illness: The patient is an 88-year-old female, with a past medical history of HTN, s/p NSTEMI, DM, gastroparesis, CAD, afib (on eliquis), morbid obesity, PSVT, diastolic CHF (on Lasix), hypothyroidism, left heel ulcerated wound, presents to the ED with AMS today. Daughter states that she noted the patient to be altered at 9:30AM and was not eating or drinking. She also noted a possible RT- sided facial droop at 10AM. Daughter states the patient has experienced similar symptoms in the past. EMS was called around 4PM today. Upon arrival, the patient was noted to be hypotensive in the 60s and was intubated (7.5cm tube, 24cm at the lip). She also received 60mg of mady and 500mg of ketamine while in the field. HPI is limited due to patients clinical condition. Allergies: Vancomycin - Current Medication List Current Medications: Active Medications Amino Acids (Prosource No Carb Liquid Pkt) 30 ml PO BID@0800,1730 [facility] Last Admin: 11/06/18 08:58 Dose: 30 ml Atorvastatin Calcium (Lipitor -) 40 mg PO HS [facility] Last Admin: 11/05/18 21:03 Dose: 40 mg Calcium Carbonate (Calcium Carb Oral Suspension -) 500 mg PO DAILY [facility] Last Admin: 11/06/18 09:06 Dose: 500 mg Chlorhexidine Gluconate (Hibiclens For Decolonization -) 1 applic TP HS [facility] Last Admin: 11/05/18 21:02 Dose: 1 applic Diltiazem HCl (Cardizem -) 60 mg PO Q6HPO [facility] Last Admin: 11/06/18 06:25 Dose: Not Given Furosemide (Lasix Injection -) 40 mg IVPUSH DAILY [facility] Stop: 11/06/18 10:01 Last Admin: 11/06/18 09:05 Dose: 40 mg Hydrocortisone Sodium Succinate (Solu-Cortef -) 50 mg IVPUSH Q6H-IV [facility] Last Admin: 11/06/18 08:57 Dose: 50 mg Ceftriaxone Sodium 2 gm/ (Dextrose) 100 mls @ 200 mls/hr IVPB DAILY [facility]; Protocol Last Admin: 11/06/18 09:03 Dose: 200 mls/hr Clindamycin Phosphate (Cleocin 600 Mg Premix Ivpb -) 600 mg in 50 mls @ 100 mls /hr IVPB Q8H-IV [facility]; Protocol Last Admin: 11/06/18 09:04 Dose: 100 mls/hr Vasopressin 50 units/ Sodium (Chloride) 100 mls @ 4 mls/hr IVPB ASDIR [facility]; Protocol Last Titration: 11/06/18 01:00 Dose: 2 units/hr, 4 mls/hr Pantoprazole Sodium 80 mg/ (Sodium Chloride) 100 mls @ 10 mls/hr IVPB Q10H [facility] Insulin Aspart (Novolog Vial Sliding Scale -) 1 vial SQ Q6HPO [facility]; Protocol Last Admin: 11/06/18 06:30 Dose: 2 units Levothyroxine Sodium (Synthroid -) 75 mcg PO DAILY@0700 [facility] Last Admin: 11/06/18 06:30 Dose: 75 mcg Metoclopramide HCl (Reglan -) 10 mg PO TIDAC [facility] Last Admin: 11/06/18 06:30 Dose: 10 mg Metoprolol Tartrate (Lopressor Injection -) 5 mg IVPUSH Q4H PRN PRN Reason: TACHYCARDIA Last Admin: 11/05/18 00:53 Dose: 5 mg Pancrelipase (Creon Dr 36,000 Units Capsule) 1 cap PO TIDCM [facility] Last Admin: 11/06/18 09:10 Dose: Not Given Senna (Senna -) 2 tab PO HS [facility] Last Admin: 11/05/18 21:04 Dose: 2 tab - Objective Vital Signs: Vital Signs Temperature 97.9 F 11/06/18 06:00 Pulse Rate 77 11/06/18 08:00 Respiratory Rate 24 H 11/06/18 08:34 Blood Pressure 104/85 11/06/18 08:00 O2 Sat by Pulse Oximetry (%) 94 L 11/05/18 09:20 Constitutional: Yes: Obese Eyes: Yes: Conjunctiva Clear HENT: Yes: Other Neck: Yes: Decreased ROM Cardiovascular: Yes: S1 (split), S2 (split) Respiratory: Yes: Intubated, Mechanically Ventilated Gastrointestinal: Yes: Soft, Abdomen, Obese Genitourinary: Yes: Ricketts Present. No: Anuria Breast(s): Yes: WNL Musculoskeletal: Yes: Muscle Weakness Extremities: Yes: Cool Edema: Yes Edema: LLE: Trace, RLE: Trace Peripheral Pulses WNL: No Peripheral Pulses: Left Doralis Pedis: 1+ Integumentary: Yes: Pressure Ulcer (left heel) Wound/Incision: Yes: Dressing Dry and Intact Neurological: Yes: Weakness Psychiatric: Yes: Other Labs: CBC, BMP 11/06/18 08:00 11/06/18 05:30 INR, PTT INR 1.27 (0.83-1.09) H 10/29/18 19:00 - ....Imaging Other: Image Reviewed (telemetry: NSR; 1st degree AV Block; no arrhythmias) Problem List - Problems (1) NSVT (nonsustained ventricular tachycardia) Code(s): I47.2 - VENTRICULAR TACHYCARDIA (2) SVT (supraventricular tachycardia) Code(s): I47.1 - SUPRAVENTRICULAR TACHYCARDIA (3) Elevated troponin Assessment/Plan: TNI 1.1 EKG: AF with RVR; r/o old anterior infarct ECHO: normal LVEF: mildly reduced RVEF (moderatey dilated RV). Rec: Pt started on PO diltiazem prior to discontinuing IV diltiazem. (Metoprolol, which is on pt's home med list, may be better to use in this case, given rise in TNI, hx NSTEMI). Systemic anticoagulation (IV heparin or Lovenox until considered safe to restart DOAC) if cleared by GI and hematology. Code(s): R74.8 - ABNORMAL LEVELS OF OTHER SERUM ENZYMES (4) Acute diastolic heart failure Code(s): I50.31 - ACUTE DIASTOLIC (CONGESTIVE) HEART FAILURE (5) Acute metabolic encephalopathy Code(s): G93.41 - METABOLIC ENCEPHALOPATHY (6) Acute renal failure Code(s): N17.9 - ACUTE KIDNEY FAILURE, UNSPECIFIED Qualifiers: Acute renal failure type: unspecified Qualified Code(s): N17.9 - Acute kidney failure, unspecified (7) Afib Assessment/Plan: off pressors On diltiazem Replee K, and keep 4.0-4.5. F/u Mg, and keep 2.0-2.4. Keep PO4 2.5-4.9. Start anticoagulation (warfarin or DOAC) if cleared by hematology. Code(s): I48.91 - UNSPECIFIED ATRIAL FIBRILLATION Qualifiers: Atrial fibrillation type: paroxysmal Qualified Code(s): I48.0 - Paroxysmal atrial fibrillation Assessment/Plan 35 CCU time spent: 35 minutes.
--- NOTE | 2018-11-06 10:18 | PN ---
Progress Note, Physician - Current Medication List Current Medications: Active Medications Amino Acids (Prosource No Carb Liquid Pkt) 30 ml PO BID@0800,1730 [facility] Last Admin: 11/06/18 08:58 Dose: 30 ml Atorvastatin Calcium (Lipitor -) 40 mg PO HS [facility] Last Admin: 11/05/18 21:03 Dose: 40 mg Calcium Carbonate (Calcium Carb Oral Suspension -) 500 mg PO DAILY [facility] Last Admin: 11/06/18 09:06 Dose: 500 mg Chlorhexidine Gluconate (Hibiclens For Decolonization -) 1 applic TP HS [facility] Last Admin: 11/05/18 21:02 Dose: 1 applic Diltiazem HCl (Cardizem -) 60 mg PO Q6HPO [facility] Last Admin: 11/06/18 06:25 Dose: Not Given Hydrocortisone Sodium Succinate (Solu-Cortef -) 50 mg IVPUSH Q6H-IV [facility] Last Admin: 11/06/18 08:57 Dose: 50 mg Ceftriaxone Sodium 2 gm/ (Dextrose) 100 mls @ 200 mls/hr IVPB DAILY [facility]; Protocol Last Admin: 11/06/18 09:03 Dose: 200 mls/hr Clindamycin Phosphate (Cleocin 600 Mg Premix Ivpb -) 600 mg in 50 mls @ 100 mls /hr IVPB Q8H-IV [facility]; Protocol Last Admin: 11/06/18 09:04 Dose: 100 mls/hr Vasopressin 50 units/ Sodium (Chloride) 100 mls @ 4 mls/hr IVPB ASDIR [facility]; Protocol Last Titration: 11/06/18 01:00 Dose: 2 units/hr, 4 mls/hr Pantoprazole Sodium 80 mg/ (Sodium Chloride) 100 mls @ 10 mls/hr IVPB Q10H [facility] Insulin Aspart (Novolog Vial Sliding Scale -) 1 vial SQ Q6HPO [facility]; Protocol Last Admin: 11/06/18 06:30 Dose: 2 units Levothyroxine Sodium (Synthroid -) 75 mcg PO DAILY@0700 [facility] Last Admin: 11/06/18 06:30 Dose: 75 mcg Metoclopramide HCl (Reglan -) 10 mg PO TIDAC [facility] Last Admin: 11/06/18 06:30 Dose: 10 mg Metoprolol Tartrate (Lopressor Injection -) 5 mg IVPUSH Q4H PRN PRN Reason: TACHYCARDIA Last Admin: 11/05/18 00:53 Dose: 5 mg Pancrelipase (Creon Dr 36,000 Units Capsule) 1 cap PO TIDCM [facility] Last Admin: 11/06/18 09:10 Dose: Not Given Senna (Senna -) 2 tab PO HS [facility] Last Admin: 11/05/18 21:04 Dose: 2 tab - Objective Vital Signs: Vital Signs Temperature 97.9 F 11/06/18 06:00 Pulse Rate 77 11/06/18 08:00 Respiratory Rate 24 H 11/06/18 08:34 Blood Pressure 104/85 11/06/18 08:00 O2 Sat by Pulse Oximetry (%) 94 L 11/05/18 09:20 Labs: CBC, BMP 11/06/18 08:00 11/06/18 05:30 INR, PTT INR 1.27 (0.83-1.09) H 10/29/18 19:00 Problem List - Problems (1) NSVT (nonsustained ventricular tachycardia) Code(s): I47.2 - VENTRICULAR TACHYCARDIA (2) SVT (supraventricular tachycardia) Code(s): I47.1 - SUPRAVENTRICULAR TACHYCARDIA (3) Elevated troponin Code(s): R74.8 - ABNORMAL LEVELS OF OTHER SERUM ENZYMES (4) Acute diastolic heart failure Code(s): I50.31 - ACUTE DIASTOLIC (CONGESTIVE) HEART FAILURE (5) Acute metabolic encephalopathy Code(s): G93.41 - METABOLIC ENCEPHALOPATHY (6) Acute renal failure Code(s): N17.9 - ACUTE KIDNEY FAILURE, UNSPECIFIED Qualifiers: Acute renal failure type: unspecified Qualified Code(s): N17.9 - Acute kidney failure, unspecified (7) Afib Code(s): I48.91 - UNSPECIFIED ATRIAL FIBRILLATION Qualifiers: Atrial fibrillation type: paroxysmal Qualified Code(s): I48.0 - Paroxysmal atrial fibrillation
--- NOTE | 2018-11-06 12:16 | PN ---
Progress Note, Physician History of Present Illness: Pt seen and examined at bedside. She is lethargic. She remains in the ICU. - Current Medication List Current Medications: Active Medications Amino Acids (Prosource No Carb Liquid Pkt) 30 ml PO BID@0800,1730 [facility] Last Admin: 11/06/18 08:58 Dose: 30 ml Atorvastatin Calcium (Lipitor -) 40 mg PO HS [facility] Last Admin: 11/05/18 21:03 Dose: 40 mg Calcium Carbonate (Calcium Carb Oral Suspension -) 500 mg PO DAILY [facility] Last Admin: 11/06/18 09:06 Dose: 500 mg Chlorhexidine Gluconate (Hibiclens For Decolonization -) 1 applic TP HS [facility] Last Admin: 11/05/18 21:02 Dose: 1 applic Diltiazem HCl (Cardizem -) 60 mg PO Q6HPO [facility] Last Admin: 11/06/18 06:25 Dose: Not Given Hydrocortisone Sodium Succinate (Solu-Cortef -) 50 mg IVPUSH Q6H-IV [facility] Last Admin: 11/06/18 08:57 Dose: 50 mg Ceftriaxone Sodium 2 gm/ (Dextrose) 100 mls @ 200 mls/hr IVPB DAILY [facility]; Protocol Last Admin: 11/06/18 09:03 Dose: 200 mls/hr Clindamycin Phosphate (Cleocin 600 Mg Premix Ivpb -) 600 mg in 50 mls @ 100 mls /hr IVPB Q8H-IV [facility]; Protocol Last Admin: 11/06/18 09:04 Dose: 100 mls/hr Vasopressin 50 units/ Sodium (Chloride) 100 mls @ 4 mls/hr IVPB ASDIR [facility]; Protocol Last Titration: 11/06/18 01:00 Dose: 2 units/hr, 4 mls/hr Pantoprazole Sodium 80 mg/ (Sodium Chloride) 100 mls @ 10 mls/hr IVPB Q10H [facility] Insulin Aspart (Novolog Vial Sliding Scale -) 1 vial SQ Q6HPO [facility]; Protocol Last Admin: 11/06/18 06:30 Dose: 2 units Levothyroxine Sodium (Synthroid -) 75 mcg PO DAILY@0700 [facility] Last Admin: 11/06/18 06:30 Dose: 75 mcg Metoclopramide HCl (Reglan -) 10 mg PO TIDAC [facility] Last Admin: 11/06/18 06:30 Dose: 10 mg Metoprolol Tartrate (Lopressor Injection -) 5 mg IVPUSH Q4H PRN PRN Reason: TACHYCARDIA Last Admin: 11/05/18 00:53 Dose: 5 mg Pancrelipase (Dyllan Palomares 36,000 Units Capsule) 1 cap PO TIDCM [facility] Last Admin: 11/06/18 09:10 Dose: Not Given Senna (Senna -) 2 tab PO HS [facility] Last Admin: 11/05/18 21:04 Dose: 2 tab - Objective Vital Signs: Vital Signs Temperature 97.9 F 11/06/18 06:00 Pulse Rate 77 11/06/18 08:00 Respiratory Rate 24 H 11/06/18 08:34 Blood Pressure 104/85 11/06/18 08:00 O2 Sat by Pulse Oximetry (%) 94 L 11/05/18 09:20 Constitutional: Yes: Calm HENT: Yes: Atraumatic Neck: Yes: Supple Cardiovascular: Yes: S1, S2 Respiratory: Yes: On Venti-Mask Gastrointestinal: Yes: Soft Genitourinary: Yes: Ricketts Present Musculoskeletal: Yes: Muscle Weakness Edema: Yes Edema: LUE: 3+, RUE: 3+, LLE: 3+, RLE: 3+ Integumentary: Yes: Venous Stasis Changes Neurological: Yes: Lethargy Labs: CBC, BMP 11/06/18 08:00 11/06/18 05:30 INR, PTT INR 1.27 (0.83-1.09) H 10/29/18 19:00 - ....Imaging Chest X-ray: Report Reviewed Problem List - Problems (1) Altered mental status Code(s): R41.82 - ALTERED MENTAL STATUS, UNSPECIFIED Qualifiers: Altered mental status type: unspecified Qualified Code(s): R41.82 - Altered mental status, unspecified (2) CVA (cerebral vascular accident) Code(s): I63.9 - CEREBRAL INFARCTION, UNSPECIFIED Assessment/Plan Current Medications Generic Name Dose Route Start Last Admin Trade Name Freq PRN Reason Stop Dose Admin Amino Acids 30 ml 10/30/18 08:00 11/06/18 08:58 Prosource No Carb Liquid Pkt PO 30 ml BID@0800,1730 [facility] Administration Atorvastatin Calcium 40 mg 11/01/18 08:22 11/05/18 21:03 Lipitor - PO 40 mg HS [facility] Administration Calcium Carbonate 500 mg 11/05/18 17:15 11/06/18 09:06 Calcium Carb Oral Suspension - PO 500 mg DAILY [facility] Administration Chlorhexidine Gluconate 1 applic 10/30/18 22:00 11/05/18 21:02 Hibiclens For Decolonization - TP 1 applic HS [facility] Administration Diltiazem HCl 60 mg 11/04/18 17:48 11/06/18 06:25 Cardizem - PO Not Given Q6HPO [facility] Hydrocortisone Sodium Succinate 50 mg 10/30/18 11:45 11/06/18 08:57 Solu-Cortef - IVPUSH 50 mg Q6H-IV [facility] Administration Ceftriaxone Sodium 2 gm/ 100 mls @ 200 mls/hr 11/01/18 11:30 11/06/18 09:03 Dextrose IVPB 200 mls/hr DAILY [facility] Administration Protocol Clindamycin Phosphate 600 mg in 50 mls @ 100 mls/hr 11/02/18 13:15 11/06/18 09:04 Cleocin 600 Mg Premix Ivpb - IVPB 100 mls/hr Q8H-IV [facility] Administration Protocol Vasopressin 50 units/ Sodium 100 mls @ 4 mls/hr 11/04/18 21:30 11/06/18 01:00 Chloride IVPB 2 units/hr ASDIR [facility] 4 mls/hr Titration Protocol 2 UNITS/HR Pantoprazole Sodium 80 mg/ 100 mls @ 10 mls/hr 11/06/18 09:00 Sodium Chloride IVPB Q10H [facility] 8 MG/HR Insulin Aspart 1 vial 10/30/18 06:00 11/06/18 06:30 Novolog Vial Sliding Scale - SQ 2 units Q6HPO [facility] Administration Protocol Levothyroxine Sodium 75 mcg 10/30/18 07:00 11/06/18 06:30 Synthroid - PO 75 mcg DAILY@0700 [facility] Administration Metoclopramide HCl 10 mg 10/30/18 07:00 11/06/18 06:30 Reglan - PO 10 mg TIDAC [facility] Administration Metoprolol Tartrate 5 mg 11/05/18 00:44 11/05/18 00:53 Lopressor Injection - IVPUSH 5 mg Q4H PRN Administration TACHYCARDIA Pancrelipase 1 cap 10/30/18 08:00 11/06/18 09:10 Dyllan Palomares 36,000 Units Capsule PO Not Given TIDCM [facility] Senna 2 tab 10/30/18 22:00 11/05/18 21:04 Senna - PO 2 tab HS [facility] Administration Impression 1. GEOFF 2. fluid overload 3. resp failure 4. sepsis 5. UTI 6. PNA 7. Atrial Fibrillation/Flutter with RVR 8. CHF 9. r/o CVA 10. DM Plan - renal function is improving - cont to monitor bloodwork - maintain map of 65 - family are currently discussing GOC - can give lasix with albumin as needed
--- NOTE | 2018-11-06 12:23 | PN ---
Teaching Attending Note Name of Resident: Lorrie Vyas ATTENDING PHYSICIAN STATEMENT I saw and evaluated the patient. I reviewed the resident's note and discussed the case with the resident. I agree with the resident's findings and plan as documented. SUBJECTIVE: Pt seen and examined in the ICU. Remains on NRB. Lethargic, poorly responsive. H /H down this AM, no obvious source of bleeding. Family discussing goals of care. Remains on vasopressin gtt. OBJECTIVE: Vital Signs Period Temp Pulse Resp BP Sys/Gu Pulse Ox Last 24 Hr 97.8 F-98.3 F 58-121 18-26 73-135/45-114 Intake & Output 11/03/18 11/04/18 11/05/18 11/06/18 23:59 23:59 23:59 23:59 Intake Total 3495.5 1592 832 93 Output Total 800 600 600 200 Balance 2695.5 992 232 -107 Weight 91.172 kg 92.578 kg 89.267 kg 88.451 kg Gen: lethargic, poorly responsive Heart: irregular Lung: bilateral rhonchi Abd: soft, nontender Ext: + edema CBC, BMP 11/06/18 08:00 11/06/18 05:30 Active Medications Amino Acids (Prosource No Carb Liquid Pkt) 30 ml PO BID@0800,1730 [facility] Last Admin: 11/06/18 08:58 Dose: 30 ml Atorvastatin Calcium (Lipitor -) 40 mg PO HS [facility] Last Admin: 11/05/18 21:03 Dose: 40 mg Calcium Carbonate (Calcium Carb Oral Suspension -) 500 mg PO DAILY [facility] Last Admin: 11/06/18 09:06 Dose: 500 mg Chlorhexidine Gluconate (Hibiclens For Decolonization -) 1 applic TP HS [facility] Last Admin: 11/05/18 21:02 Dose: 1 applic Diltiazem HCl (Cardizem -) 60 mg PO Q6HPO [facility] Last Admin: 11/06/18 06:25 Dose: Not Given Hydrocortisone Sodium Succinate (Solu-Cortef -) 50 mg IVPUSH Q6H-IV [facility] Last Admin: 11/06/18 08:57 Dose: 50 mg Ceftriaxone Sodium 2 gm/ (Dextrose) 100 mls @ 200 mls/hr IVPB DAILY [facility]; Protocol Last Admin: 11/06/18 09:03 Dose: 200 mls/hr Clindamycin Phosphate (Cleocin 600 Mg Premix Ivpb -) 600 mg in 50 mls @ 100 mls /hr IVPB Q8H-IV [facility]; Protocol Last Admin: 11/06/18 09:04 Dose: 100 mls/hr Vasopressin 50 units/ Sodium (Chloride) 100 mls @ 4 mls/hr IVPB ASDIR [facility]; Protocol Last Titration: 11/06/18 01:00 Dose: 2 units/hr, 4 mls/hr Pantoprazole Sodium 80 mg/ (Sodium Chloride) 100 mls @ 10 mls/hr IVPB Q10H [facility] Insulin Aspart (Novolog Vial Sliding Scale -) 1 vial SQ Q6HPO [facility]; Protocol Last Admin: 11/06/18 06:30 Dose: 2 units Levothyroxine Sodium (Synthroid -) 75 mcg PO DAILY@0700 [facility] Last Admin: 11/06/18 06:30 Dose: 75 mcg Metoclopramide HCl (Reglan -) 10 mg PO TIDAC [facility] Last Admin: 11/06/18 06:30 Dose: 10 mg Metoprolol Tartrate (Lopressor Injection -) 5 mg IVPUSH Q4H PRN PRN Reason: TACHYCARDIA Last Admin: 11/05/18 00:53 Dose: 5 mg Pancrelipase (Creon Dr 36,000 Units Capsule) 1 cap PO TIDCM [facility] Last Admin: 11/06/18 09:10 Dose: Not Given Senna (Senna -) 2 tab PO HS [facility] Last Admin: 11/05/18 21:04 Dose: 2 tab ASSESSMENT AND PLAN: Acute Respiratory Failure Pneumonia likely Aspiration UTI Septic Shock Atrial Fibrillation/Flutter with RVR LV Diastolic Dysfunction r/o CVA Acute Kidney Injury DM Hypothyroidism Hyperlipidemia - continue albumin/lasix today - monitor urine output, creatinine - continue antibiotics - titrate pressors to maintain MAP >65 - continue stress dose steroids - replete lytes - rate control with cardizem - off anticoagulation due to history of GI bleed - taper FiO2 to keep SpO2 >90% - aspiration precautions - continue discussions regarding goals of care, advanced directive, may need re -intubation - DVT/GI prophylaxis - continue ICU monitoring critical care time spent in reviewing chart, evaluating patient and formulating plan 35 min
[2018-11-06] MEDS: PANTOPRAZOLE SODIUM 80 MG in SODIUM CHLORIDE 100 ML IVPB SCH ×2 (13:44→18:50)
--- NOTE | 2018-11-06 13:52 | PN ---
Physical Exam: SUBJECTIVE: Patient seen and examined at bedside. Yesterday/ overnight the patient was noted to have increased work of breathing and placed on non- rebreather mask. She is currently tolerating the mask and her O2 saturation is 100%. Family meeting occurred today. Transfer of surrogacy did not happen however DNR order was signed. Family wishes to continue other life sustaining measures such as vasopressors and intubation if necessary. OBJECTIVE: Vital Signs Period Temp Pulse Resp BP Sys/Gu Pulse Ox Last 24 Hr 97.8 F-98.3 F 58-121 18-26 73-135/45-114 GENERAL: Obtunded, unable to follow commands or respond to questioning HEENT: PERRL, unable to assess ocular movements, wet mucous membranes NECK: No JVD LUNGS: coarse breath sounds, no wheezes, no crackles. Non-rebreather on, no accessory muscle use noted. HEART: Tachycardic with irregularly irregular rhythm, S1, S2 without murmur ABDOMEN: Soft, NT/ND, hypoactive bowel sounds, no guarding EXTREMITIES: 1+ DP pulses, warm, well-perfused, 2+ edema to the knee b/l, 2+ edema hands bilaterally NEUROLOGICAL: Limited exam due to condition, PEERL, L sided flaccid paralysis, withdrawal movements R>L to painful stimuli SKIN: Warm, dry, no rashes or lesions noted on patient's back when she was rolled. Diffuse ecchymosis on bilateral arms. Laboratory Results - last 24 hr 11/05/18 11/05/18 11/05/18 05:15 16:26 21:30 WBC RBC Hgb Hct MCV MCH MCHC RDW Plt Count MPV Hypochromia 0 Platelet Estimate Normal Polychromasia 0 Poikilocytosis 0 Anisocytosis 2+ Macrocytosis 1+ Ovalocytes 1+ Anticoagulation Therapy No Result Required. Puncture Site Right radial ABG pH 7.44 ABG pCO2 at Pt Temp 40.9 ABG pO2 at Pt Temp 140 H ABG HCO3 27.0 ABG O2 Sat (Measured) 99.2 H ABG O2 Content 10.1 L ABG Base Excess 3.0 H Davi Test Positive O2 Delivery Device Nrb Oxygen Flow Rate Yes Vent Mode No Result Required. Vent Rate No Result Required. Mechanical Rate No Result Required. Pressure Support Vent No Result Required. Sodium Potassium Chloride Carbon Dioxide Anion Gap BUN Creatinine Est GFR (CKD-EPI)AfAm Est GFR (CKD-EPI)NonAf POC Glucometer 128 Random Glucose Calcium Phosphorus Magnesium Total Bilirubin AST ALT Alkaline Phosphatase Total Protein Albumin Blood Type Antibody Screen Crossmatch 11/05/18 11/06/18 11/06/18 23:43 05:24 05:30 WBC 9.0 RBC 1.63 L Hgb 5.9 L* Hct 17.0 L D MCV 104.1 H MCH 35.9 H MCHC 34.5 RDW 22.8 H Plt Count 206 MPV 8.5 Hypochromia Platelet Estimate Polychromasia Poikilocytosis Anisocytosis Macrocytosis Ovalocytes Anticoagulation Therapy Puncture Site ABG pH ABG pCO2 at Pt Temp ABG pO2 at Pt Temp ABG HCO3 ABG O2 Sat (Measured) ABG O2 Content ABG Base Excess Davi Test O2 Delivery Device Oxygen Flow Rate Vent Mode Vent Rate Mechanical Rate Pressure Support Vent Sodium Potassium Chloride Carbon Dioxide Anion Gap BUN Creatinine Est GFR (CKD-EPI)AfAm Est GFR (CKD-EPI)NonAf POC Glucometer 140 196 Random Glucose Calcium Phosphorus Magnesium Total Bilirubin AST ALT Alkaline Phosphatase Total Protein Albumin Blood Type Antibody Screen Crossmatch 11/06/18 11/06/18 11/06/18 05:30 08:00 10:00 WBC 9.1 RBC 1.63 L Hgb 5.8 L* Hct 17.0 L MCV 104.4 H MCH 35.6 H MCHC 34.1 RDW 22.5 H Plt Count 214 MPV 8.3 Hypochromia Platelet Estimate Polychromasia Poikilocytosis Anisocytosis Macrocytosis Ovalocytes Anticoagulation Therapy Puncture Site ABG pH ABG pCO2 at Pt Temp ABG pO2 at Pt Temp ABG HCO3 ABG O2 Sat (Measured) ABG O2 Content ABG Base Excess Davi Test O2 Delivery Device Oxygen Flow Rate Vent Mode Vent Rate Mechanical Rate Pressure Support Vent Sodium 145 Potassium 3.7 Chloride 110 H Carbon Dioxide 31 Anion Gap 4 L BUN 27.8 H Creatinine 0.7 Est GFR (CKD-EPI)AfAm 90.29 Est GFR (CKD-EPI)NonAf 77.90 POC Glucometer Random Glucose 190 H Calcium 6.6 L* Phosphorus 3.4 Magnesium 1.9 Total Bilirubin 0.4 AST 21 ALT 17 Alkaline Phosphatase 44 L Total Protein 4.2 L Albumin 1.8 L Blood Type A POSITIVE Antibody Screen Negative Crossmatch See Detail Active Medications Generic Name Dose Route Start Last Admin Trade Name Nenita PRN Reason Stop Dose Admin Albumin Human 25 gm 11/06/18 14:30 Albumin Human 25% - IVPB 11/07/18 22:01 BID [facility] Amino Acids 30 ml 10/30/18 08:00 11/06/18 08:58 Prosource No Carb Liquid Pkt PO 30 ml BID@0800,1730 [facility] Administration Atorvastatin Calcium 40 mg 11/01/18 08:22 11/05/18 21:03 Lipitor - PO 40 mg HS [facility] Administration Calcium Carbonate 500 mg 11/05/18 17:15 11/06/18 09:06 Calcium Carb Oral Suspension - PO 500 mg DAILY [facility] Administration Chlorhexidine Gluconate 1 applic 10/30/18 22:00 11/05/18 21:02 Hibiclens For Decolonization - TP 1 applic HS [facility] Administration Diltiazem HCl 60 mg 11/04/18 17:48 11/06/18 13:47 Cardizem - PO 60 mg Q6HPO [facility] Administration Furosemide 40 mg 11/06/18 14:00 Lasix Injection - IVPUSH DAILY [facility] Hydrocortisone Sodium Succinate 50 mg 10/30/18 11:45 11/06/18 08:57 Solu-Cortef - IVPUSH 50 mg Q6H-IV [facility] Administration Ceftriaxone Sodium 2 gm/ 100 mls @ 200 mls/hr 11/01/18 11:30 11/06/18 09:03 Dextrose IVPB 200 mls/hr DAILY [facility] Administration Protocol Clindamycin Phosphate 600 mg in 50 mls @ 100 mls/hr 11/02/18 13:15 11/06/18 09:04 Cleocin 600 Mg Premix Ivpb - IVPB 100 mls/hr Q8H-IV [facility] Administration Protocol Vasopressin 50 units/ Sodium 100 mls @ 4 mls/hr 11/04/18 21:30 11/06/18 01:00 Chloride IVPB 2 units/hr ASDIR [facility] 4 mls/hr Titration Protocol 2 UNITS/HR Pantoprazole Sodium 80 mg/ 100 mls @ 10 mls/hr 11/06/18 09:00 11/06/18 13:44 Sodium Chloride IVPB 10 mls/hr Q10H [facility] Administration 8 MG/HR Insulin Aspart 1 vial 10/30/18 06:00 11/06/18 06:30 Novolog Vial Sliding Scale - SQ 2 units Q6HPO [facility] Administration Protocol Levothyroxine Sodium 75 mcg 10/30/18 07:00 11/06/18 06:30 Synthroid - PO 75 mcg DAILY@0700 [facility] Administration Metoclopramide HCl 10 mg 10/30/18 07:00 11/06/18 13:44 Reglan - PO 10 mg TIDAC [facility] Administration Metoprolol Tartrate 5 mg 11/05/18 00:44 11/05/18 00:53 Lopressor Injection - IVPUSH 5 mg Q4H PRN Administration TACHYCARDIA Pancrelipase 1 cap 10/30/18 08:00 11/06/18 13:47 Crelalo Palomares 36,000 Units Capsule PO Not Given TIDCM [facility] Senna 2 tab 10/30/18 22:00 11/05/18 21:04 Senna - PO 2 tab HS [facility] Administration ASSESSMENT/PLAN: Kathleen Saini is an 82 year old female with a PMHx of HTN, T2DM, CAD (NSTEMI) , afib (not on AC due to prior bleed), HFpEF who was admitted to the ICU after developing respiratory failure likely secondary to distributive vs cardiogenic shock. Acute Respiratory Failure Heart Failure with Preserved Ejection Fraction Septic Shock from possible aspiration PNA A fib with RVR GEOFF R sided Ischemic Stroke Hypothyroid HLD NEUROLOGIC - intubated and sedated - questionable history of facial droop - CT head showing small chronic R occipital cortical infarct, chronic ischemic changes, no acute pathology noted - repeat head CT showing large R sided nonhemorrhagic stroke, ? small thalamic infarct on the R - Dr. Fairbanks consulted, recs appreciated, start AC if indicated by cardiology CARDIOLOGY - tachycardia resolved with diltiazem push - diltiazem drip resumed due to patient's NPO status s/p extubation, unable to tolerate transition to PO - Lopressor 5mg q4h prn tachycardia - previous echo showing EF 60-65% - new echo showing EF 60%, mild dilation of R ventricle, reduced R systolic function, moderate to severe mitral regurg - titrate vasopressin down as tolerated - CVP monitoring and fluids as necessary - maintain MAP>65 - troponins 1.03-->1.21-->1.11-->0.71 - cardiology consulted, recs appreciated - Lipitor increased to 40mg in setting of new stroke - hydrocortisone 50mg q6h - CHADS-VASC score of 8, 10.8% stroke risk per year in setting of afib/ irregular rhythm, high risk of further cardioembolic strokes - HAS-BLED Score of 3, high risk of bleeding - spoken to family regarding starting anticoagulation with heparin drip protocol , risks and benefits were described, family aware and agreeable - PTT supratherapeutic, decision to switch to Lovenox sq - Trend PT/INR and PTT - D/C lovenox today because H/H drop to 5.9/17, concern for bleed - F/U FOBT RESPIRATORY - on non-rebreather - CXR showing congestive changes - ABG showing hypoxia, no hypercapneia - family stated that if respiratory status decompensates, would want intubation - low threshold for reintubation, risks and benefits explained to family regarding intubation RENAL - GEOFF likely from cardiogenic vs shock vs autonomic shock - no fluids in the setting of volume overloaded status - Continue albumin and Lasix 40mg IV PRN GASTROINTESTINAL - Concern for GI bleed since patient had sudden drop in H/H and no obvious external signs of bleed (5.9/17) - 1 unit RBCs transfused - Protonix BID - Continue to follow H/H, transfuse as needed GENITOURINARY - no acute issues INFECTIOUS DISEASE - septic shock likely from PNA (?aspiration) - lactic acid <2 - covered with clindamycin and ceftriaxone - UA showing 2+ LE, 9 bacteria, unlikely contributor to sepsis - blood cultures negative - sputum cultures showing presumptive MRSA - Dr. Cisse consulted, recs appreciated ENDOCRINE - BGM ACHS - ISS - Levemir 15 units - continue home synthroid HEMATOLOGY - leukocytosis likely from infection MUSCULOSKELETAL - no acute issues PSYCHIATRY - continue home escitalopram F/E/N - no standing fluids - continue to monitor electrolytes and replete as necessary - NPO pending speech and swallow, s/p stroke LINES - R IJ inserted 10/30 PROPHYLAXIS -SCDs CODE -DNR, intubation and pressors OK. - in the setting of patient's comorbidities, increased morbidity and mortality is expected, family was made aware of grave prognosis DISPO - continue to monitor in ICU Visit type - Emergency Visit Emergency Visit: Yes ED Registration Date: 10/29/18 Care time: The patient presented to the Emergency Department on the above date and was hospitalized for further evaluation of their emergent condition. - New Patient This patient is new to me today: Yes Date on this admission: 11/06/18 - Critical Care Critical Care patient: Yes Total Critical Care Time (in minutes): 40 Critical Care Statement: The care of this patient involved high complexity decision making to prevent further life threatening deterioration of the patient 's condition and/or to evaluate & treat vital organ system(s) failure or risk of failure. ATTENDING PHYSICIAN STATEMENT I saw and evaluated the patient. I reviewed the resident's note and discussed the case with the resident. I agree with the resident's findings and plan as documented. SUBJECTIVE: OBJECTIVE: ASSESSMENT AND PLAN:
--- NOTE | 2018-11-06 15:32 | EKG ---
Test Reason : Blood Pressure : / mmHG Vent. Rate : 085 BPM Atrial Rate : 441 BPM P-R Int : 000 ms QRS Dur : 094 ms QT Int : 420 ms P-R-T Axes : 000 018 230 degrees QTc Int : 499 ms ATRIAL FIBRILLATION LOW VOLTAGE QRS NONSPECIFIC ST AND T WAVE ABNORMALITY ABNORMAL ECG Confirmed by MD WADE, KAYLEIGH ([id number]) on 11/06/2018 3:32:29 PM Referred By: Gualberto SOTO Confirmed By:KAYLEIGH OLVERA MD
[2018-11-06] MEDS: ALBUMIN HUMAN 25% 100 ML VIAL IVPB SCH ×2 (16:34→21:48)
[2018-11-06 21:11] LABS: HEMATOCRIT 23.3 % (32.4-45.2); HEMOGLOBIN 7.9 GM/dL (10.7-15.3); MCH 32.4 pg (25.7-33.7); MEAN CELL VOLUME 95.2 fl (80-96); MEAN PLT VOLUME 8.2 fl (7.5-11.1); PLATELET COUNT 176 K/MM3 (134-434); RBC 2.45 M/mm3 (3.60-5.2); RDW 19.4 % (11.6-15.6)
[2018-11-06 21:21] LABS: INR 1.48 (0.83-1.09); PROTHROMBIN TIME (PATIENT) 17.5 SEC (9.7-13.0)
[2018-11-06] MEDS: ATORVASTATIN CA 40 MG TABLET (FP) PO SCH (21:47)
[2018-11-06] MEDS: SENNOSIDES 8.6MG TABLET (FP) PO SCH (21:48)
[2018-11-06] MEDS: VASOPRESSIN 50 UNITS in SODIUM CHLORIDE 97.5 ML IVPB SCH (21:51)
[2018-11-06] MEDS: CHLORHEXIDINE GLUCONATE 4% CLEANSER FOR DECOLONIZATION TP SCH (21:59)
[2018-11-07] MEDS: INSULIN SLIDING SCALE (NOVOLOG) 1 VIAL SQ SCH ×4 (00:11→19:32)
[2018-11-07] MEDS: dilTIAZem HCL 60 MG TABLET (FP) PO SCH ×4 (00:11→17:31)
[2018-11-07] MEDS: CLINDAMYCIN 600MG PREMIX IVPB 600 MG/50 ML BAG IVPB SCH ×3 (01:11→17:29)
[2018-11-07] MEDS: HYDROCORTISONE SOD SUCCINATE 100 MG/2 ML VIAL IVPUSH SCH ×3 (03:31→17:31)
[2018-11-07] MEDS: PANTOPRAZOLE SODIUM 80 MG in SODIUM CHLORIDE 100 ML IVPB SCH ×2 (05:34→15:00)
[2018-11-07] MEDS: LEVOTHYROXINE NA 75 MCG TABLET (FP) PO SCH (06:24)
[2018-11-07] MEDS: METOCLOPRAMIDE HCL 10 MG TABLET (FP) PO SCH ×3 (06:25→17:30)
[2018-11-07 06:36] LABS: HEMATOCRIT 18.7 % (32.4-45.2); MCH 33.1 pg (25.7-33.7); MCHC 35.3 g/dl (32.0-36.0); MEAN CELL VOLUME 93.8 fl (80-96); MEAN PLT VOLUME 8.4 fl (7.5-11.1); PLATELET COUNT 159 K/MM3 (134-434); RDW 19.7 % (11.6-15.6)
[2018-11-07 06:47] LABS: HEMOGLOBIN 6.6 GM/dL (10.7-15.3)
[2018-11-07 06:57] LABS: INR 1.45 (0.83-1.09); PROTHROMBIN TIME (PATIENT) 17.2 SEC (9.7-13.0)
[2018-11-07 06:59] LABS: ACTIVATED PTT 53.5 SECONDS (25.2-36.5)
[2018-11-07 07:30] LABS: ALBUMIN 2.7 g/dl (3.4-5.0); BILIRUBIN,TOTAL 0.7 mg/dL (0.2-1); BLOOD UREA NITROGEN 30.6 mg/dL (7-18); CREATININE 0.8 mg/dL (0.55-1.3); MAGNESIUM 1.8 mg/dL (1.8-2.4); PHOSPHOROUS 3.4 mg/dL (2.5-4.9); POTASSIUM 3.3 mmol/L (3.5-5.1); TOT PROT 4.6 g/dl (6.4-8.2)
[2018-11-07] MEDS: LIPASE/PROTEASE/AMYLASE 36,000 UNIT CAPSULE PO SCH ×3 (07:37→16:56)
[2018-11-07] MEDS ORDERED: POTASSIUM CHLORIDE 20 MEQ PREMIX IVPB 100 ML IVPB ONE (08:01)
[2018-11-07] MEDS ORDERED: MAGNESIUM SULF 50% (8.12 MEQ/2 ML-1 GM VIAL) IVPB ONE (08:15)
[2018-11-07] MEDS ORDERED: DEXTROSE 5%-WATER 100 ML IVPB ONE (08:29)
[2018-11-07] MEDS: AMINO ACIDS/PROTEIN HYDROLYS 30 ML LIQUID.PKT PO SCH ×2 (08:40→17:29)
[2018-11-07 08:53] LABS: CALCIUM 6.6 mg/dL (8.5-10.1)
[2018-11-07] MEDS ORDERED: PT OWN MED DRAWER 7, Y5N ONE ×2 (08:54→22:45)
--- NOTE | 2018-11-07 08:55 | PN ---
Progress Note, Physician - Current Medication List Current Medications: Active Medications Albumin Human (Albumin Human 25% -) 25 gm IVPB BID [facility] Stop: 11/07/18 22:01 Last Admin: 11/06/18 21:48 Dose: 25 gm Amino Acids (Prosource No Carb Liquid Pkt) 30 ml PO BID@0800,1730 [facility] Last Admin: 11/07/18 08:40 Dose: 30 ml Atorvastatin Calcium (Lipitor -) 40 mg PO HS [facility] Last Admin: 11/06/18 21:47 Dose: 40 mg Calcium Carbonate (Calcium Carb Oral Suspension -) 500 mg PO BID [facility] Chlorhexidine Gluconate (Hibiclens For Decolonization -) 1 applic TP HS [facility] Last Admin: 11/06/18 21:59 Dose: 1 applic Diltiazem HCl (Cardizem -) 60 mg PO Q6HPO [facility] Last Admin: 11/07/18 06:24 Dose: 60 mg Furosemide (Lasix Injection -) 40 mg IVPUSH DAILY [facility] Last Admin: 11/06/18 14:20 Dose: 40 mg Hydrocortisone Sodium Succinate (Solu-Cortef -) 50 mg IVPUSH Q6H-IV [facility] Last Admin: 11/07/18 08:40 Dose: 50 mg Ceftriaxone Sodium 2 gm/ (Dextrose) 100 mls @ 200 mls/hr IVPB DAILY [facility]; Protocol Last Admin: 11/06/18 09:03 Dose: 200 mls/hr Clindamycin Phosphate (Cleocin 600 Mg Premix Ivpb -) 600 mg in 50 mls @ 100 mls /hr IVPB Q8H-IV [facility]; Protocol Last Admin: 11/07/18 01:11 Dose: 100 mls/hr Vasopressin 50 units/ Sodium (Chloride) 100 mls @ 4 mls/hr IVPB ASDIR [facility]; Protocol Last Titration: 11/07/18 01:00 Dose: 0 units/hr, 0 mls/hr Pantoprazole Sodium 80 mg/ (Sodium Chloride) 100 mls @ 10 mls/hr IVPB Q10H [facility] Last Admin: 11/07/18 05:34 Dose: Not Given Insulin Aspart (Novolog Vial Sliding Scale -) 1 vial SQ Q6HPO [facility]; Protocol Last Admin: 11/07/18 05:35 Dose: 2 units Levothyroxine Sodium (Synthroid -) 75 mcg PO DAILY@0700 [facility] Last Admin: 11/07/18 06:24 Dose: 75 mcg Metoclopramide HCl (Reglan -) 10 mg PO TIDAC [facility] Last Admin: 11/07/18 06:25 Dose: 10 mg Metoprolol Tartrate (Lopressor Injection -) 5 mg IVPUSH Q4H PRN PRN Reason: TACHYCARDIA Last Admin: 11/05/18 00:53 Dose: 5 mg Pancrelipase (Creon Dr 36,000 Units Capsule) 1 cap PO TIDCM [facility] Last Admin: 11/07/18 07:37 Dose: Not Given Senna (Senna -) 2 tab PO HS [facility] Last Admin: 11/06/18 21:48 Dose: 2 tab - Objective Vital Signs: Vital Signs Temperature 98.0 F 11/07/18 07:56 Pulse Rate 72 11/07/18 08:00 Respiratory Rate 19 11/07/18 08:00 Blood Pressure 106/60 11/07/18 08:00 O2 Sat by Pulse Oximetry (%) 100 11/07/18 08:00 Cardiovascular: Yes: S1, S2 Respiratory: Yes: Diminished, On Venti-Mask Gastrointestinal: Yes: Normal Bowel Sounds, Soft Extremities: Yes: Other (hematoma) Edema: Yes Labs: CBC, BMP 11/07/18 05:30 11/07/18 05:30 INR, PTT INR 1.45 (0.83-1.09) H 11/07/18 05:30 Assessment/Plan (1) CVA (cerebral vascular accident) Assessment/Plan: -Neurology on board -Head CT scan shows large acute nonhemorrhagic right frontal, temporal, and parietal cortical infarct, involvement of the right frontoparietal coronal radiata Code(s): I63.9 - CEREBRAL INFARCTION, UNSPECIFIED (2) Elevated troponin Assessment/Plan: -cardiology on board -demand ischemia Laboratory Tests 10/30/18 10/31/18 11:50 05:15 Troponin I 1.11 H* 0.71 H* Code(s): R74.8 - ABNORMAL LEVELS OF OTHER SERUM ENZYMES (3) Respiratory failure Assessment/Plan: -extubated -on V_M -Pulm on board -bronchodilators -CXR shows no change -keep SpO2 >90% Code(s): J96.90 - RESPIRATORY FAILURE, UNSP, UNSP W HYPOXIA OR HYPERCAPNIA (4) Acute diastolic heart failure Assessment/Plan: -cardiology on board -Echo with EF 60% -on lasix and albumin Code(s): I50.31 - ACUTE DIASTOLIC (CONGESTIVE) HEART FAILURE (5) Acute metabolic encephalopathy Assessment/Plan: -ID on board -no leukocytosis -afebrile -BC neg -Sputum culture MRSA -Ceftriaxone, Clindamycin Code(s): G93.41 - METABOLIC ENCEPHALOPATHY (6) CAD (coronary artery disease) Assessment/Plan: -Atorvastatin Code(s): I25.10 - ATHSCL HEART DISEASE OF [place] CORONARY ARTERY W/O ANG PCTRS (7) Hypokalemia Assessment/Plan: -received KCl IVPB -monitor electrolytes daily and replete as needed Code(s): E87.6 - HYPOKALEMIA (8) Sepsis Assessment/Plan: -ID on board -no leukocytosis -afebrile -BC neg -Sputum culture MRSA -Ceftriaxone, Clindamycin -Off Vasopressin Code(s): A41.9 - SEPSIS, UNSPECIFIED ORGANISM Qualifiers: Sepsis type: sepsis due to unspecified organism Qualified Code(s): A41.9 - Sepsis, unspecified organism (9) Afib Assessment/Plan: -Cardiology on board -off ac due to bleeding -Diltiazem 30mg q6h -tele monitoring Code(s): I48.91 - UNSPECIFIED ATRIAL FIBRILLATION Qualifiers: Atrial fibrillation type: paroxysmal Qualified Code(s): I48.0 - Paroxysmal atrial fibrillation
[2018-11-07] MEDS: CEFTRIAXONE 2 GM in DEXTROSE 5%-WATER 100 ML IVPB SCH (09:03)
[2018-11-07] MEDS: ALBUMIN HUMAN 25% 100 ML VIAL IVPB SCH ×2 (09:03→22:46)
[2018-11-07] MEDS: FUROSEMIDE 40 MG/4 ML INJECTABLE VIAL IVPUSH SCH ×2 (09:04→15:00)
[2018-11-07] MEDS: CALCIUM CARBONATE SUSPENSION - 500 MG/5 ML ML PO SCH ×2 (09:05→22:47)
--- NOTE | 2018-11-07 09:59 | PN ---
Progress Note, Physician History of Present Illness: MODE[employer]PROVEMENT AWAKE, EYES OPEN. MOVING R UE OFF PRESSORS, SEDATION AFEBRILE ANEMIC - Current Medication List Current Medications: Active Medications Albumin Human (Albumin Human 25% -) 25 gm IVPB BID [facility] Stop: 11/07/18 22:01 Last Admin: 11/07/18 09:03 Dose: 25 gm Amino Acids (Prosource No Carb Liquid Pkt) 30 ml PO BID@0800,1730 [facility] Last Admin: 11/07/18 08:40 Dose: 30 ml Atorvastatin Calcium (Lipitor -) 40 mg PO HS [facility] Last Admin: 11/06/18 21:47 Dose: 40 mg Calcium Carbonate (Calcium Carb Oral Suspension -) 500 mg PO BID [facility] Last Admin: 11/07/18 09:05 Dose: 500 mg Chlorhexidine Gluconate (Hibiclens For Decolonization -) 1 applic TP HS [facility] Last Admin: 11/06/18 21:59 Dose: 1 applic Diltiazem HCl (Cardizem -) 60 mg PO Q6HPO [facility] Last Admin: 11/07/18 06:24 Dose: 60 mg Furosemide (Lasix Injection -) 40 mg IVPUSH DAILY [facility] Last Admin: 11/07/18 09:04 Dose: 40 mg Hydrocortisone Sodium Succinate (Solu-Cortef -) 50 mg IVPUSH Q6H-IV [facility] Last Admin: 11/07/18 08:40 Dose: 50 mg Ceftriaxone Sodium 2 gm/ (Dextrose) 100 mls @ 200 mls/hr IVPB DAILY [facility]; Protocol Last Admin: 11/07/18 09:03 Dose: 200 mls/hr Clindamycin Phosphate (Cleocin 600 Mg Premix Ivpb -) 600 mg in 50 mls @ 100 mls /hr IVPB Q8H-IV [facility]; Protocol Last Admin: 11/07/18 09:02 Dose: 100 mls/hr Pantoprazole Sodium 80 mg/ (Sodium Chloride) 100 mls @ 10 mls/hr IVPB Q10H [facility] Last Admin: 11/07/18 05:34 Dose: Not Given Insulin Aspart (Novolog Vial Sliding Scale -) 1 vial SQ Q6HPO [facility]; Protocol Last Admin: 11/07/18 05:35 Dose: 2 units Levothyroxine Sodium (Synthroid -) 75 mcg PO DAILY@0700 [facility] Last Admin: 11/07/18 06:24 Dose: 75 mcg Metoclopramide HCl (Reglan -) 10 mg PO TIDAC [facility] Last Admin: 11/07/18 06:25 Dose: 10 mg Metoprolol Tartrate (Lopressor Injection -) 5 mg IVPUSH Q4H PRN PRN Reason: TACHYCARDIA Last Admin: 11/05/18 00:53 Dose: 5 mg Pancrelipase (Creon Dr 36,000 Units Capsule) 1 cap PO TIDCM [facility] Last Admin: 11/07/18 07:37 Dose: Not Given Senna (Senna -) 2 tab PO HS [facility] Last Admin: 11/06/18 21:48 Dose: 2 tab - Objective Vital Signs: Vital Signs Temperature 98.0 F 11/07/18 07:56 Pulse Rate 72 11/07/18 08:00 Respiratory Rate 19 11/07/18 08:00 Blood Pressure 106/60 11/07/18 08:00 O2 Sat by Pulse Oximetry (%) 100 11/07/18 08:00 Constitutional: Yes: No Distress, Obese Eyes: Yes: Conjunctiva Clear Cardiovascular: Yes: Regular Rate and Rhythm, S1, S2 Respiratory: Yes: Diminished Gastrointestinal: Yes: Normal Bowel Sounds, Soft, Abdomen, Obese. No: Tenderness Extremities: Yes: Other Edema: Yes (BULLOUS LESIONS UE BILAT) Labs: CBC, BMP 11/07/18 05:30 11/07/18 05:30 INR, PTT INR 1.45 (0.83-1.09) H 11/07/18 05:30 Assessment/Plan S/P CVA RESP FAILURE S/P EXTUBATION R/O ASP PNEUMONIA + SPUTUM MRSA AZOTEMIA CONTINUE CLINDAMYCIN/ CEFTRIAXONE PROGNOSIS POOR
--- NOTE | 2018-11-07 11:27 | PN ---
Teaching Attending Note Name of Resident: Enio Chavez ATTENDING PHYSICIAN STATEMENT I saw and evaluated the patient. I reviewed the resident's note and discussed the case with the resident. I agree with the resident's findings and plan as documented. SUBJECTIVE: Pt seen and examined in the ICU. Remains lethargic on NRB. Off pressors. Pt now DNR but other goals of care to be determined. H/H continues to trend down without obvious source. OBJECTIVE: Vital Signs Period Temp Pulse Resp BP Sys/Gu Pulse Ox Last 24 Hr 97.3 F-98.4 F 67-90 13-24 91-140/47-98 100-100 Intake & Output 11/04/18 11/05/18 11/06/18 11/07/18 23:59 23:59 23:59 23:59 Intake Total 0953 629 6392 124 Output Total 600 600 650 300 Balance 992 232 637 -176 Weight 92.578 kg 89.267 kg 88.451 kg 88.133 kg Gen: lethargic, mildly tachypneic on NRB Heart: irregular Lung: bilateral rhonchi Abd: soft, nontender Ext: + edema CBC, BMP 11/07/18 05:30 11/07/18 05:30 Active Medications Albumin Human (Albumin Human 25% -) 25 gm IVPB BID [facility] Stop: 11/07/18 22:01 Last Admin: 11/07/18 09:03 Dose: 25 gm Amino Acids (Prosource No Carb Liquid Pkt) 30 ml PO BID@0800,1730 [facility] Last Admin: 11/07/18 08:40 Dose: 30 ml Atorvastatin Calcium (Lipitor -) 40 mg PO [facility] Last Admin: 11/06/18 21:47 Dose: 40 mg Calcium Carbonate (Calcium Carb Oral Suspension -) 500 mg PO BID [facility] Last Admin: 11/07/18 09:05 Dose: 500 mg Chlorhexidine Gluconate (Hibiclens For Decolonization -) 1 applic TP [facility] Last Admin: 11/06/18 21:59 Dose: 1 applic Diltiazem HCl (Cardizem -) 60 mg PO Q6HPO [facility] Last Admin: 11/07/18 06:24 Dose: 60 mg Furosemide (Lasix Injection -) 40 mg IVPUSH DAILY [facility] Last Admin: 11/07/18 09:04 Dose: 40 mg Hydrocortisone Sodium Succinate (Solu-Cortef -) 50 mg IVPUSH Q8H-IV [facility] Ceftriaxone Sodium 2 gm/ (Dextrose) 100 mls @ 200 mls/hr IVPB DAILY [facility]; Protocol Last Admin: 11/07/18 09:03 Dose: 200 mls/hr Clindamycin Phosphate (Cleocin 600 Mg Premix Ivpb -) 600 mg in 50 mls @ 100 mls /hr IVPB Q8H-IV [facility]; Protocol Last Admin: 11/07/18 09:02 Dose: 100 mls/hr Pantoprazole Sodium 80 mg/ (Sodium Chloride) 100 mls @ 10 mls/hr IVPB Q10H [facility] Last Admin: 11/07/18 05:34 Dose: Not Given Insulin Aspart (Novolog Vial Sliding Scale -) 1 vial SQ Q6HPO [facility]; Protocol Last Admin: 11/07/18 05:35 Dose: 2 units Levothyroxine Sodium (Synthroid -) 75 mcg PO DAILY@0700 [facility] Last Admin: 11/07/18 06:24 Dose: 75 mcg Metoclopramide HCl (Reglan -) 10 mg PO TIDAC [facility] Last Admin: 11/07/18 06:25 Dose: 10 mg Metoprolol Tartrate (Lopressor Injection -) 5 mg IVPUSH Q4H PRN PRN Reason: TACHYCARDIA Last Admin: 11/05/18 00:53 Dose: 5 mg Pancrelipase (Creon Dr 36,000 Units Capsule) 1 cap PO TIDCM [facility] Last Admin: 11/07/18 07:37 Dose: Not Given Senna (Senna -) 2 tab PO HS [facility] Last Admin: 11/06/18 21:48 Dose: 2 tab ASSESSMENT AND PLAN: Acute Respiratory Failure Pneumonia likely Aspiration UTI Septic Shock Atrial Fibrillation/Flutter with RVR LV Diastolic Dysfunction r/o CVA Acute Kidney Injury DM Hypothyroidism Hyperlipidemia - transfuse PRBC - monitor H/H - CT A/P to r/o retroperitoneal/intra-abdominal bleed - continue albumin/lasix today - monitor urine output, creatinine - continue antibiotics - off pressors, maintain MAP >65 - taper stress dose steroids - replete lytes - rate control with cardizem - off anticoagulation due to history of GI bleed - taper FiO2 to keep SpO2 >90% - aspiration precautions - CT head to re-assess poor mental status - continue discussions regarding goals of care, advanced directive, may need re -intubation - DVT/GI prophylaxis - continue ICU monitoring critical care time spent in reviewing chart, evaluating patient and formulating plan 35 min
--- NOTE | 2018-11-07 11:46 | PN ---
Physical Exam: SUBJECTIVE: Patient seen and examined at the bedside. Continue to be obtunded and not responding to questioning or basic commands. Able to make purposeful movement with the R arm. Switched over to Venti mask 50% today off non- rebreather. OBJECTIVE: Vital Signs Period Temp Pulse Resp BP Sys/Gu Pulse Ox Last 24 Hr 97.3 F-98.4 F 67-90 13-24 91-140/47-98 100-100 GENERAL: Obtunded, unable to follow commands or respond to questioning HEENT: PERRL, unable to assess ocular movements, wet mucous membranes NECK: No JVD LUNGS: coarse breath sounds, no wheezes, no crackles. Vent-mask on, no accessory muscle use noted. HEART: Tachycardic with irregularly irregular rhythm, S1, S2 without murmur ABDOMEN: Soft, NT/ND, hypoactive bowel sounds, no guarding EXTREMITIES: 1+ DP pulses, warm, well-perfused, 2+ edema to the knee b/l, 2+ edema hands bilaterally NEUROLOGICAL: Limited exam due to condition, PEERL, L sided flaccid paralysis, withdrawal movements R>L to painful stimuli SKIN: Warm, dry, no rashes or lesions noted. Diffuse ecchymosis on bilateral arms. Chronic L heel ulcer. Laboratory Results - last 24 hr 11/06/18 11/06/18 11/06/18 10:00 14:06 17:08 WBC RBC Hgb Hct MCV MCH MCHC RDW Plt Count MPV PT with INR INR PTT (Actin FS) Sodium Potassium Chloride Carbon Dioxide Anion Gap BUN Creatinine Est GFR (CKD-EPI)AfAm Est GFR (CKD-EPI)NonAf POC Glucometer 195 202 Random Glucose Calcium Phosphorus Magnesium Total Bilirubin AST ALT Alkaline Phosphatase Total Protein Albumin Blood Type A POSITIVE Antibody Screen Negative Crossmatch See Detail 11/06/18 11/06/18 11/06/18 20:00 20:00 23:52 WBC 9.0 RBC 2.45 L Hgb 7.9 L Hct 23.3 L D MCV 95.2 D MCH 32.4 MCHC 34.0 RDW 19.4 H Plt Count 176 MPV 8.2 PT with INR 17.50 H INR 1.48 H PTT (Actin FS) Sodium Potassium Chloride Carbon Dioxide Anion Gap BUN Creatinine Est GFR (CKD-EPI)AfAm Est GFR (CKD-EPI)NonAf POC Glucometer 185 Random Glucose Calcium Phosphorus Magnesium Total Bilirubin AST ALT Alkaline Phosphatase Total Protein Albumin Blood Type Antibody Screen Crossmatch 11/07/18 11/07/18 11/07/18 05:23 05:30 05:30 WBC 9.0 RBC 2.00 L Hgb 6.6 L* Hct 18.7 L D MCV 93.8 MCH 33.1 MCHC 35.3 RDW 19.7 H Plt Count 159 MPV 8.4 PT with INR 17.20 H INR 1.45 H PTT (Actin FS) 53.5 H Sodium Potassium Chloride Carbon Dioxide Anion Gap BUN Creatinine Est GFR (CKD-EPI)AfAm Est GFR (CKD-EPI)NonAf POC Glucometer 163 Random Glucose Calcium Phosphorus Magnesium Total Bilirubin AST ALT Alkaline Phosphatase Total Protein Albumin Blood Type Antibody Screen Crossmatch 11/07/18 05:30 WBC RBC Hgb Hct MCV MCH MCHC RDW Plt Count MPV PT with INR INR PTT (Actin FS) Sodium 145 Potassium 3.3 L Chloride 109 H Carbon Dioxide 29 Anion Gap 8 BUN 30.6 H Creatinine 0.8 Est GFR (CKD-EPI)AfAm 76.83 Est GFR (CKD-EPI)NonAf 66.29 POC Glucometer Random Glucose 157 H Calcium 6.6 L* Phosphorus 3.4 Magnesium 1.8 Total Bilirubin 0.7 AST 21 ALT 16 Alkaline Phosphatase 36 L Total Protein 4.6 L Albumin 2.7 L Blood Type Antibody Screen Crossmatch Active Medications Generic Name Dose Route Start Last Admin Trade Name Freq PRN Reason Stop Dose Admin Albumin Human 25 gm 11/06/18 14:30 11/07/18 09:03 Albumin Human 25% - IVPB 11/07/18 22:01 25 gm BID [facility] Administration Amino Acids 30 ml 10/30/18 08:00 11/07/18 08:40 Prosource No Carb Liquid Pkt PO 30 ml BID@0800,1730 [facility] Administration Atorvastatin Calcium 40 mg 11/01/18 08:22 11/06/18 21:47 Lipitor - PO 40 mg HS [facility] Administration Calcium Carbonate 500 mg 11/07/18 10:00 11/07/18 09:05 Calcium Carb Oral Suspension - PO 500 mg BID [facility] Administration Chlorhexidine Gluconate 1 applic 10/30/18 22:00 11/06/18 21:59 Hibiclens For Decolonization - TP 1 applic HS [facility] Administration Diltiazem HCl 60 mg 11/04/18 17:48 11/07/18 06:24 Cardizem - PO 60 mg Q6HPO [facility] Administration Furosemide 40 mg 11/06/18 14:00 11/07/18 09:04 Lasix Injection - IVPUSH 40 mg DAILY [facility] Administration Hydrocortisone Sodium Succinate 50 mg 11/07/18 18:00 Solu-Cortef - IVPUSH Q8H-IV [facility] Ceftriaxone Sodium 2 gm/ 100 mls @ 200 mls/hr 11/01/18 11:30 11/07/18 09:03 Dextrose IVPB 200 mls/hr DAILY [facility] Administration Protocol Clindamycin Phosphate 600 mg in 50 mls @ 100 mls/hr 11/02/18 13:15 11/07/18 09:02 Cleocin 600 Mg Premix Ivpb - IVPB 100 mls/hr Q8H-IV [facility] Administration Protocol Pantoprazole Sodium 80 mg/ 100 mls @ 10 mls/hr 11/06/18 09:00 11/07/18 05:34 Sodium Chloride IVPB Not Given Q10H [facility] 8 MG/HR Insulin Aspart 1 vial 10/30/18 06:00 11/07/18 05:35 Novolog Vial Sliding Scale - SQ 2 units Q6HPO [facility] Administration Protocol Levothyroxine Sodium 75 mcg 10/30/18 07:00 11/07/18 06:24 Synthroid - PO 75 mcg DAILY@0700 [facility] Administration Metoclopramide HCl 10 mg 10/30/18 07:00 11/07/18 06:25 Reglan - PO 10 mg TIDAC [facility] Administration Metoprolol Tartrate 5 mg 11/05/18 00:44 11/05/18 00:53 Lopressor Injection - IVPUSH 5 mg Q4H PRN Administration TACHYCARDIA Pancrelipase 1 cap 10/30/18 08:00 11/07/18 07:37 Dyllan Palomares 36,000 Units Capsule PO Not Given TIDCM [facility] Senna 2 tab 10/30/18 22:00 11/06/18 21:48 Senna - PO 2 tab HS [facility] Administration ASSESSMENT/PLAN: Kathleen Saini is an 82 year old female with a PMHx of HTN, T2DM, CAD (NSTEMI) , afib (not on AC due to prior bleed), HFpEF who was admitted to the ICU after developing respiratory failure likely secondary to distributive vs cardiogenic shock. Acute Respiratory Failure Heart Failure with Preserved Ejection Fraction Septic Shock from possible aspiration PNA A fib with RVR GEOFF R sided Ischemic Stroke Hypothyroid HLD NEUROLOGIC - intubated and sedated - questionable history of facial droop - CT head showing small chronic R occipital cortical infarct, chronic ischemic changes, no acute pathology noted - repeat head CT showing large R sided nonhemorrhagic stroke, ? small thalamic infarct on the R - Dr. Fairbanks consulted, recs appreciated, start AC if indicated by cardiology - repeat head CT in setting of new neurologic decompensation CARDIOLOGY - tachycardia resolved with diltiazem push - cardizem 60mg q6h - Lopressor 5mg q4h prn tachycardia - previous echo showing EF 60-65% - new echo showing EF 60%, mild dilation of R ventricle, reduced R systolic function, moderate to severe mitral regurg - off vasopressin - CVP monitoring and fluids as necessary - maintain MAP>65 - troponins 1.03-->1.21-->1.11-->0.71 - cardiology consulted, recs appreciated - Lipitor increased to 40mg in setting of new stroke - wean to hydrocortisone 50mg q8h - CHADS-VASC score of 8, 10.8% stroke risk per year in setting of afib/ irregular rhythm, high risk of further cardioembolic strokes - HAS-BLED Score of 3, high risk of bleeding - spoken to family regarding starting anticoagulation with heparin drip protocol , risks and benefits were described, family aware and agreeable - PTT supratherapeutic, decision to switch to Lovenox sq - Trend PT/INR and PTT - D/C lovenox because H/H low - F/U FOBT RESPIRATORY - on venti-mask at 50% - CXR showing congestive changes - ABG showing hypoxia, no hypercapneia - family stated that if respiratory status decompensates, would want intubation - low threshold for reintubation, risks and benefits explained to family regarding intubation RENAL - GEOFF likely from cardiogenic vs shock vs autonomic shock - no fluids in the setting of volume overloaded status - Continue albumin and Lasix 40mg IV PRN GASTROINTESTINAL - Concern for GI bleed since patient had sudden drop in H/H and no obvious external signs of bleed, Hgb to day 6.6 - 2 unit RBCs transfused today - recheck counts after transfusion - Protonix BID - Continue to follow H/H, transfuse as needed - Abd pelvis CT in the setting of continued drop in Hgb GENITOURINARY - no acute issues INFECTIOUS DISEASE - covered with clindamycin and ceftriaxone - UA showing 2+ LE, 9 bacteria, unlikely contributor to sepsis - blood cultures negative - sputum cultures showing presumptive MRSA - Dr. Cisse consulted, recs appreciated ENDOCRINE - BGM ACHS - ISS - Levemir 15 units - continue home synthroid HEMATOLOGY - leukocytosis likely from infection MUSCULOSKELETAL - no acute issues PSYCHIATRY - continue home escitalopram F/E/N - no standing fluids - continue to monitor electrolytes and replete as necessary - Promote feeds initiated 10cc/hr, total 240cc/24 hrs LINES - R IJ inserted 10/30, to be exchanged today PROPHYLAXIS - SCDs CODE - DNR, intubation and pressors OK. - in the setting of patient's comorbidities, increased morbidity and mortality is expected, family was made aware of grave prognosis DISPO - continue to monitor in ICU Visit type - Emergency Visit Emergency Visit: No - New Patient This patient is new to me today: No - Critical Care Critical Care patient: Yes Total Critical Care Time (in minutes): 39 Critical Care Statement: The care of this patient involved high complexity decision making to prevent further life threatening deterioration of the patient 's condition and/or to evaluate & treat vital organ system(s) failure or risk of failure.
--- NOTE | 2018-11-07 12:54 | PN ---
Progress Note, Physician History of Present Illness: Pt seen and examined at bedside. She remains in the ICU. She is lethargic. - Current Medication List Current Medications: Active Medications Albumin Human (Albumin Human 25% -) 25 gm IVPB BID [facility] Stop: 11/07/18 22:01 Last Admin: 11/07/18 09:03 Dose: 25 gm Amino Acids (Prosource No Carb Liquid Pkt) 30 ml PO BID@0800,1730 [facility] Last Admin: 11/07/18 08:40 Dose: 30 ml Atorvastatin Calcium (Lipitor -) 40 mg PO HS [facility] Last Admin: 11/06/18 21:47 Dose: 40 mg Calcium Carbonate (Calcium Carb Oral Suspension -) 500 mg PO BID [facility] Last Admin: 11/07/18 09:05 Dose: 500 mg Chlorhexidine Gluconate (Hibiclens For Decolonization -) 1 applic TP HS [facility] Last Admin: 11/06/18 21:59 Dose: 1 applic Diltiazem HCl (Cardizem -) 60 mg PO Q6HPO [facility] Last Admin: 11/07/18 12:40 Dose: 60 mg Furosemide (Lasix Injection -) 40 mg IVPUSH BIDLASIX [facility] Hydrocortisone Sodium Succinate (Solu-Cortef -) 50 mg IVPUSH Q8H-IV [facility] Ceftriaxone Sodium 2 gm/ (Dextrose) 100 mls @ 200 mls/hr IVPB DAILY [facility]; Protocol Last Admin: 11/07/18 09:03 Dose: 200 mls/hr Clindamycin Phosphate (Cleocin 600 Mg Premix Ivpb -) 600 mg in 50 mls @ 100 mls /hr IVPB Q8H-IV [facility]; Protocol Last Admin: 11/07/18 09:02 Dose: 100 mls/hr Pantoprazole Sodium 80 mg/ (Sodium Chloride) 100 mls @ 10 mls/hr IVPB Q10H [facility] Last Admin: 11/07/18 05:34 Dose: Not Given Insulin Aspart (Novolog Vial Sliding Scale -) 1 vial SQ Q6HPO [facility]; Protocol Last Admin: 11/07/18 05:35 Dose: 2 units Levothyroxine Sodium (Synthroid -) 75 mcg PO DAILY@0700 [facility] Last Admin: 11/07/18 06:24 Dose: 75 mcg Metoclopramide HCl (Reglan -) 10 mg PO TIDAC [facility] Last Admin: 11/07/18 12:41 Dose: 10 mg Metoprolol Tartrate (Lopressor Injection -) 5 mg IVPUSH Q4H PRN PRN Reason: TACHYCARDIA Last Admin: 11/05/18 00:53 Dose: 5 mg Pancrelipase (Dyllan Palomares 36,000 Units Capsule) 1 cap PO TIDCM [facility] Last Admin: 11/07/18 12:41 Dose: Not Given Senna (Senna -) 2 tab PO HS [facility] Last Admin: 11/06/18 21:48 Dose: 2 tab - Objective Vital Signs: Vital Signs Temperature 98.0 F 11/07/18 07:56 Pulse Rate 72 11/07/18 08:00 Respiratory Rate 19 11/07/18 08:00 Blood Pressure 106/60 11/07/18 08:00 O2 Sat by Pulse Oximetry (%) 100 11/07/18 08:00 Constitutional: Yes: Calm Eyes: Yes: Conjunctiva Clear HENT: Yes: Atraumatic Neck: Yes: Supple Cardiovascular: Yes: S1, S2 Respiratory: Yes: On Venti-Mask Gastrointestinal: Yes: Soft, Abdomen, Obese Genitourinary: Yes: Ricketts Present Edema: Yes Edema: LUE: 3+, RUE: 3+, LLE: 3+, RLE: 3+ Integumentary: Yes: Venous Stasis Changes Neurological: Yes: Lethargy Labs: CBC, BMP 11/07/18 05:30 11/07/18 05:30 INR, PTT INR 1.45 (0.83-1.09) H 11/07/18 05:30 Problem List - Problems (1) Altered mental status Code(s): R41.82 - ALTERED MENTAL STATUS, UNSPECIFIED Qualifiers: Altered mental status type: unspecified Qualified Code(s): R41.82 - Altered mental status, unspecified (2) CVA (cerebral vascular accident) Code(s): I63.9 - CEREBRAL INFARCTION, UNSPECIFIED Assessment/Plan Current Medications Generic Name Dose Route Start Last Admin Trade Name Freq PRN Reason Stop Dose Admin Albumin Human 25 gm 11/06/18 14:30 11/07/18 09:03 Albumin Human 25% - IVPB 11/07/18 22:01 25 gm BID [facility] Administration Amino Acids 30 ml 10/30/18 08:00 11/07/18 08:40 Prosource No Carb Liquid Pkt PO 30 ml BID@0800,1730 [facility] Administration Atorvastatin Calcium 40 mg 11/01/18 08:22 11/06/18 21:47 Lipitor - PO 40 mg HS [facility] Administration Calcium Carbonate 500 mg 11/07/18 10:00 11/07/18 09:05 Calcium Carb Oral Suspension - PO 500 mg BID [facility] Administration Chlorhexidine Gluconate 1 applic 10/30/18 22:00 11/06/18 21:59 Hibiclens For Decolonization - TP 1 applic HS [facility] Administration Diltiazem HCl 60 mg 11/04/18 17:48 11/07/18 12:40 Cardizem - PO 60 mg Q6HPO [facility] Administration Furosemide 40 mg 11/07/18 14:00 Lasix Injection - IVPUSH BIDLASIX [facility] Hydrocortisone Sodium Succinate 50 mg 11/07/18 18:00 Solu-Cortef - IVPUSH Q8H-IV [facility] Ceftriaxone Sodium 2 gm/ 100 mls @ 200 mls/hr 11/01/18 11:30 11/07/18 09:03 Dextrose IVPB 200 mls/hr DAILY [facility] Administration Protocol Clindamycin Phosphate 600 mg in 50 mls @ 100 mls/hr 11/02/18 13:15 11/07/18 09:02 Cleocin 600 Mg Premix Ivpb - IVPB 100 mls/hr Q8H-IV [facility] Administration Protocol Pantoprazole Sodium 80 mg/ 100 mls @ 10 mls/hr 11/06/18 09:00 11/07/18 05:34 Sodium Chloride IVPB Not Given Q10H [facility] 8 MG/HR Insulin Aspart 1 vial 10/30/18 06:00 11/07/18 05:35 Novolog Vial Sliding Scale - SQ 2 units Q6HPO [facility] Administration Protocol Levothyroxine Sodium 75 mcg 10/30/18 07:00 11/07/18 06:24 Synthroid - PO 75 mcg DAILY@0700 [facility] Administration Metoclopramide HCl 10 mg 10/30/18 07:00 11/07/18 12:41 Reglan - PO 10 mg TIDAC [facility] Administration Metoprolol Tartrate 5 mg 11/05/18 00:44 11/05/18 00:53 Lopressor Injection - IVPUSH 5 mg Q4H PRN Administration TACHYCARDIA Pancrelipase 1 cap 10/30/18 08:00 11/07/18 12:41 Dyllan Palomares 36,000 Units Capsule PO Not Given TIDCM [facility] Senna 2 tab 10/30/18 22:00 11/06/18 21:48 Senna - PO 2 tab HS [facility] Administration Impression 1. GEOFF 2. fluid overload 3. resp failure 4. sepsis 5. UTI 6. PNA 7. Atrial Fibrillation/Flutter with RVR 8. CHF 9. r/o CVA 10. DM Plan - cont to monitor renal function - cont diuretics - replace lytes - discussed with ICU team
[2018-11-07 15:03] VITALS: BMI 39.2
[2018-11-07] MEDS: SENNOSIDES 8.6MG TABLET (FP) PO SCH (22:41)
[2018-11-07] MEDS: ATORVASTATIN CA 40 MG TABLET (FP) PO SCH (22:41)
[2018-11-07] MEDS: CHLORHEXIDINE GLUCONATE 4% CLEANSER FOR DECOLONIZATION TP SCH (22:42)
[2018-11-08] MEDS: INSULIN SLIDING SCALE (NOVOLOG) 1 VIAL SQ SCH ×4 (02:12→17:00)
[2018-11-08] MEDS: CLINDAMYCIN 600MG PREMIX IVPB 600 MG/50 ML BAG IVPB SCH ×3 (02:13→17:00)
[2018-11-08] MEDS: dilTIAZem HCL 60 MG TABLET (FP) PO SCH ×4 (02:13→17:00)
[2018-11-08] MEDS: PANTOPRAZOLE SODIUM 80 MG in SODIUM CHLORIDE 100 ML IVPB SCH ×3 (02:13→11:11)
[2018-11-08] MEDS: HYDROCORTISONE SOD SUCCINATE 100 MG/2 ML VIAL IVPUSH SCH ×2 (02:14→10:10)
[2018-11-08 06:13] LABS: HEMATOCRIT 16.8 % (32.4-45.2); MCH 33.3 pg (25.7-33.7); MEAN CELL VOLUME 92.7 fl (80-96); MEAN PLT VOLUME 8.4 fl (7.5-11.1); PLATELET COUNT 107 K/MM3 (134-434); RBC 1.81 M/mm3 (3.60-5.2); RDW 14.8 % (11.6-15.6); WHITE BLOOD COUNT 8.7 K/mm3 (4.0-10.0)
[2018-11-08] MEDS ORDERED: PT OWN MED DRAWER 7, Y5N ONE ×3 (06:32→19:03)
[2018-11-08] MEDS: LEVOTHYROXINE NA 75 MCG TABLET (FP) PO SCH (06:34)
[2018-11-08] MEDS: METOCLOPRAMIDE HCL 10 MG TABLET (FP) PO SCH ×3 (06:34→16:40)
[2018-11-08] MEDS: FUROSEMIDE 40 MG/4 ML INJECTABLE VIAL IVPUSH SCH ×2 (06:34→14:42)
[2018-11-08 07:23] LABS: ALBUMIN 2.7 g/dl (3.4-5.0); BILIRUBIN,TOTAL 0.8 mg/dL (0.2-1); BLOOD UREA NITROGEN 29.1 mg/dL (7-18); CREATININE 0.9 mg/dL (0.55-1.3); MAGNESIUM 1.9 mg/dL (1.8-2.4); PHOSPHOROUS 2.9 mg/dL (2.5-4.9); POTASSIUM 3.2 mmol/L (3.5-5.1)
[2018-11-08 07:38] LABS: CALCIUM 6.8 mg/dL (8.5-10.1)
[2018-11-08] MEDS ORDERED: MAGNESIUM SULF 50% (8.12 MEQ/2 ML-1 GM VIAL) IVPB ONE (08:15)
[2018-11-08] MEDS ORDERED: DEXTROSE 5%-WATER 100 ML IVPB ONE (08:27)
--- NOTE | 2018-11-08 08:43 | PN ---
Progress Note, Physician Chief Complaint: AWAKE ON NRB 02 MASK WEAK AND CONFUSED NON-VERBAL - Current Medication List Current Medications: Active Medications Amino Acids (Prosource No Carb Liquid Pkt) 30 ml PO BID@0800,1730 [facility] Last Admin: 11/07/18 17:29 Dose: 30 ml Atorvastatin Calcium (Lipitor -) 40 mg PO HS [facility] Last Admin: 11/07/18 22:41 Dose: 40 mg Calcium Carbonate (Calcium Carb Oral Suspension -) 500 mg PO BID [facility] Last Admin: 11/07/18 22:47 Dose: 500 mg Chlorhexidine Gluconate (Hibiclens For Decolonization -) 1 applic TP HS [facility] Last Admin: 11/07/18 22:42 Dose: 1 applic Diltiazem HCl (Cardizem -) 60 mg PO Q6HPO [facility] Last Admin: 11/08/18 06:34 Dose: 60 mg Furosemide (Lasix Injection -) 40 mg IVPUSH BIDLASIX [facility] Last Admin: 11/08/18 06:34 Dose: 40 mg Hydrocortisone Sodium Succinate (Solu-Cortef -) 50 mg IVPUSH Q8H-IV [facility] Last Admin: 11/08/18 02:14 Dose: 50 mg Ceftriaxone Sodium 2 gm/ (Dextrose) 100 mls @ 200 mls/hr IVPB DAILY [facility]; Protocol Last Admin: 11/07/18 09:03 Dose: 200 mls/hr Clindamycin Phosphate (Cleocin 600 Mg Premix Ivpb -) 600 mg in 50 mls @ 100 mls /hr IVPB Q8H-IV [facility]; Protocol Last Admin: 11/08/18 02:13 Dose: 100 mls/hr Pantoprazole Sodium 80 mg/ (Sodium Chloride) 100 mls @ 10 mls/hr IVPB Q10H [facility] Last Admin: 11/08/18 02:13 Dose: 10 mls/hr Insulin Aspart (Novolog Vial Sliding Scale -) 1 vial SQ Q6HPO [facility]; Protocol Last Admin: 11/08/18 06:34 Dose: 4 units Levothyroxine Sodium (Synthroid -) 75 mcg PO DAILY@0700 [facility] Last Admin: 11/08/18 06:34 Dose: 75 mcg Metoclopramide HCl (Reglan -) 10 mg PO TIDAC [facility] Last Admin: 11/08/18 06:34 Dose: 10 mg Metoprolol Tartrate (Lopressor Injection -) 5 mg IVPUSH Q4H PRN PRN Reason: TACHYCARDIA Last Admin: 11/05/18 00:53 Dose: 5 mg Pancrelipase (Charuon Dr 36,000 Units Capsule) 1 cap PO TIDCM [facility] Last Admin: 11/07/18 16:56 Dose: Not Given Potassium Chloride (Potassium Chloride 20 Meq Premix Ivpb -) 20 meq IVPB Q60M [facility] Stop: 11/08/18 10:01 Senna (Senna -) 2 tab PO HS [facility] Last Admin: 11/07/18 22:41 Dose: 2 tab - Objective Vital Signs: Vital Signs Temperature 97.3 F L 11/07/18 14:00 Pulse Rate 87 11/08/18 06:00 Respiratory Rate 91 H 11/08/18 06:00 Blood Pressure 112/68 11/08/18 06:00 O2 Sat by Pulse Oximetry (%) 100 11/07/18 21:00 Constitutional: Yes: Moderate Distress Cardiovascular: Yes: Pulse Irregular Respiratory: Yes: Diminished, On Venti-Mask, SOB Gastrointestinal: Yes: Abdomen, Obese, Other (PELVIC HEMATOMA LEFT SIDE ECCHYMOSIS TENDERNESS) Genitourinary: Yes: Ricketts Present, Incontinence Musculoskeletal: Yes: Muscle Weakness Extremities: Yes: Erythema (LEFT ARM ECHYMOSIS, EDEMA WITH VASCULAR/VENOUS INSUFFICIENCY) Edema: Yes Integumentary: Yes: Erythema, Rash, Skin Tear, Venous Stasis Changes Wound/Incision: Yes: Open to air, Dressing Dry and Intact, Reddened, Excoriated Neurological: Yes: Confusion, Pre-Existing Deficit, Weakness Psychiatric: Yes: Other Labs: CBC, BMP 11/08/18 05:40 11/08/18 05:40 INR, PTT INR 1.45 (0.83-1.09) H 11/07/18 05:30 Problem List - Problems (1) Respiratory failure Code(s): J96.90 - RESPIRATORY FAILURE, UNSP, UNSP W HYPOXIA OR HYPERCAPNIA (2) Altered mental status Code(s): R41.82 - ALTERED MENTAL STATUS, UNSPECIFIED Qualifiers: Altered mental status type: unspecified Qualified Code(s): R41.82 - Altered mental status, unspecified (3) Elevated troponin Code(s): R74.8 - ABNORMAL LEVELS OF OTHER SERUM ENZYMES (4) NSVT (nonsustained ventricular tachycardia) Code(s): I47.2 - VENTRICULAR TACHYCARDIA (5) Respiratory failure Code(s): J96.90 - RESPIRATORY FAILURE, UNSP, UNSP W HYPOXIA OR HYPERCAPNIA Qualifiers: Chronicity: acute Respiratory failure complication: hypoxia Qualified Code(s): J96.01 - Acute respiratory failure with hypoxia (6) SVT (supraventricular tachycardia) Code(s): I47.1 - SUPRAVENTRICULAR TACHYCARDIA (7) Acute diastolic heart failure Code(s): I50.31 - ACUTE DIASTOLIC (CONGESTIVE) HEART FAILURE (8) Acute metabolic encephalopathy Code(s): G93.41 - METABOLIC ENCEPHALOPATHY (9) Afib Code(s): I48.91 - UNSPECIFIED ATRIAL FIBRILLATION Qualifiers: Atrial fibrillation type: paroxysmal Qualified Code(s): I48.0 - Paroxysmal atrial fibrillation (10) COPD (chronic obstructive pulmonary disease) Code(s): J44.9 - CHRONIC OBSTRUCTIVE PULMONARY DISEASE, UNSPECIFIED (11) Morbid obesity with BMI of 40.0-44.9, adult Code(s): E66.01 - MORBID (SEVERE) OBESITY DUE TO EXCESS CALORIES; Z68.41 - BODY MASS INDEX (BMI) 40.0-44.9, ADULT (12) Type 2 diabetes mellitus with other circulatory complications Code(s): E11.59 - TYPE 2 DIABETES MELLITUS WITH OTH CIRCULATORY COMPLICATIONS (13) Type 2 diabetes mellitus with other diabetic neurological complication Code(s): E11.49 - TYPE 2 DIABETES W OTH DIABETIC NEUROLOGICAL COMPLICATION (14) Hematoma Code(s): T14.8XXA - OTHER INJURY OF UNSPECIFIED BODY REGION, INITIAL ENCOUNTER (15) Ecchymosis of forearm Code(s): R58 - HEMORRHAGE, NOT ELSEWHERE CLASSIFIED Assessment/Plan STOP ALL ANTICOAGULATION AND DVT PROPHYLAXIS DUE TO FRAGILE SKIN AND ECCHYMOSIS/HEMATOMAS DEVELOPING. PATIENT HAS A POOR OVERALL QUALITY OF LIFE AND FAMILY AGREES ON DNR. IV ABX AND CENTRAL LINES FOR ACCCESS CONTINUE 02 SUPPORT DVT BOOTS COMFORT MEASURES AND PAIN CONTROL TOLERATED MONITOR BP/LABS HEMATOMA LEFT PELVIC REVIEWED AND WILL MONITOR CALL SURGERY OR I.R. IF DRAINAGE NEEDED
[2018-11-08] MEDS: AMINO ACIDS/PROTEIN HYDROLYS 30 ML LIQUID.PKT PO SCH ×2 (09:00→16:41)
[2018-11-08] MEDS: LIPASE/PROTEASE/AMYLASE 36,000 UNIT CAPSULE PO SCH ×3 (09:00→16:41)
[2018-11-08] MEDS: POTASSIUM CHLORIDE 20 MEQ PREMIX IVPB 100 ML IVPB SCH ×2 (10:08→13:00)
[2018-11-08] MEDS: CEFTRIAXONE 2 GM in DEXTROSE 5%-WATER 100 ML IVPB SCH (10:08)
--- NOTE | 2018-11-08 11:28 | PN ---
Teaching Attending Note Name of Resident: Enio Chavez ATTENDING PHYSICIAN STATEMENT I saw and evaluated the patient. I reviewed the resident's note and discussed the case with the resident. I agree with the resident's findings and plan as documented. SUBJECTIVE: Pt seen and examined in the ICU. Remains lethargic on 50% ventimask. Off pressors. CT head showing evolution of acute R MCA stroke. CT A/P showing LLE hematoma. H/H still trending down. OBJECTIVE: Vital Signs Period Temp Pulse Resp BP Sys/Gu Pulse Ox Last 24 Hr 97.3 F-97.4 F 69-104 15-99 91-121/42-88 100-100 Intake & Output 11/05/18 11/06/18 11/07/18 11/08/18 23:59 23:59 23:59 23:59 Intake Total 832 1287 1344 173 Output Total 501 813 5552 Balance 232 637 44 173 Weight 89.267 kg 88.451 kg 88.133 kg 89.04 kg Gen: lethargic, mildly tachypneic Heart: RRR Lung: scattered rhonchi Abd: soft, nontender Ext: + edema CBC, BMP 11/08/18 05:40 11/08/18 05:40 Active Medications Amino Acids (Prosource No Carb Liquid Pkt) 30 ml PO BID@0800,1730 [facility] Last Admin: 11/08/18 09:00 Dose: 30 ml Atorvastatin Calcium (Lipitor -) 40 mg PO HS [facility] Last Admin: 11/07/18 22:41 Dose: 40 mg Calcium Carbonate (Calcium Carb Oral Suspension -) 500 mg PO BID [facility] Last Admin: 11/07/18 22:47 Dose: 500 mg Chlorhexidine Gluconate (Hibiclens For Decolonization -) 1 applic TP HS [facility] Last Admin: 11/07/18 22:42 Dose: 1 applic Diltiazem HCl (Cardizem -) 60 mg PO Q6HPO [facility] Last Admin: 11/08/18 06:34 Dose: 60 mg Furosemide (Lasix Injection -) 40 mg IVPUSH BIDLASIX [facility] Last Admin: 11/08/18 06:34 Dose: 40 mg Hydrocortisone Sodium Succinate (Solu-Cortef -) 50 mg IVPUSH Q8H-IV [facility] Last Admin: 11/08/18 10:10 Dose: 50 mg Ceftriaxone Sodium 2 gm/ (Dextrose) 100 mls @ 200 mls/hr IVPB DAILY [facility]; Protocol Last Admin: 11/08/18 10:08 Dose: 200 mls/hr Clindamycin Phosphate (Cleocin 600 Mg Premix Ivpb -) 600 mg in 50 mls @ 100 mls /hr IVPB Q8H-IV [facility]; Protocol Last Admin: 11/08/18 10:08 Dose: 100 mls/hr Pantoprazole Sodium 80 mg/ (Sodium Chloride) 100 mls @ 10 mls/hr IVPB Q10H [facility] Last Admin: 11/08/18 11:11 Dose: Not Given Insulin Aspart (Novolog Vial Sliding Scale -) 1 vial SQ Q6HPO [facility]; Protocol Last Admin: 11/08/18 06:34 Dose: 4 units Levothyroxine Sodium (Synthroid -) 75 mcg PO DAILY@0700 [facility] Last Admin: 11/08/18 06:34 Dose: 75 mcg Metoclopramide HCl (Reglan -) 10 mg PO TIDAC [facility] Last Admin: 11/08/18 06:34 Dose: 10 mg Metoprolol Tartrate (Lopressor Injection -) 5 mg IVPUSH Q4H PRN PRN Reason: TACHYCARDIA Last Admin: 11/05/18 00:53 Dose: 5 mg Pancrelipase (Creon Dr 36,000 Units Capsule) 1 cap PO TIDCM [facility] Last Admin: 11/08/18 09:00 Dose: 1 cap Phytonadione (Aqua Mephyton Injection -) 5 mg SQ DAILY [facility] Stop: 11/10/18 10:01 Senna (Senna -) 2 tab PO HS [facility] Last Admin: 11/07/18 22:41 Dose: 2 tab ASSESSMENT AND PLAN: Acute Respiratory Failure Pneumonia likely Aspiration UTI Septic Shock Atrial Fibrillation/Flutter with RVR LV Diastolic Dysfunction Acute CVA Acute Kidney Injury DM Hypothyroidism Hyperlipidemia - transfuse PRBC - monitor H/H - continue lasix today - monitor urine output, creatinine - continue antibiotics - off pressors, maintain MAP >65 - taper stress dose steroids - replete lytes - rate control with cardizem - off anticoagulation due to history of GI bleed and current hematoma - taper FiO2 to keep SpO2 >90% - aspiration precautions - continue discussions regarding goals of care, advanced directive, may need re -intubation - DVT/GI prophylaxis - continue ICU monitoring - recommend palliative/comfort measures critical care time spent in reviewing chart, evaluating patient and formulating plan 35 min
[2018-11-08] MEDS: CALCIUM CARBONATE SUSPENSION - 500 MG/5 ML ML PO SCH (11:42)
--- NOTE | 2018-11-08 11:48 | PN ---
Physical Exam: SUBJECTIVE: Patient seen and examined at the bedside. Patient on Venti-mask 50% and saturating well but with labored breathing. Remains unresponsive to voice and basic commands. Prognosis poor. Family meeting scheduled to discuss goals of care for the patient. OBJECTIVE: Vital Signs Period Temp Pulse Resp BP Sys/Gu Pulse Ox Last 24 Hr 97.3 F-97.4 F 69-104 15-99 91-121/42-88 100-100 GENERAL: Obtunded, unable to follow commands or respond to questioning HEENT: PERRL, unable to assess ocular movements, wet mucous membranes NECK: No JVD LUNGS: coarse breath sounds, no wheezes, no crackles. Vent-mask on, accessory muscle use noted. HEART: Tachycardic with irregularly irregular rhythm, S1, S2 without murmur ABDOMEN: Soft, NT/ND, hypoactive bowel sounds, no guarding EXTREMITIES: 1+ DP pulses, warm, well-perfused, 2+ edema to the knee b/l, 2+ edema hands bilaterally NEUROLOGICAL: Limited exam due to condition, PEERL, L sided flaccid paralysis, withdrawal movements R>L to painful stimuli SKIN: Warm, dry, no rashes or lesions noted. Diffuse ecchymosis on bilateral arms and skin sloughing. Chronic L heel ulcer. Laboratory Results - last 24 hr 11/06/18 11/07/18 11/07/18 10:00 12:49 17:55 WBC RBC Hgb Hct MCV MCH MCHC RDW Plt Count MPV Sodium Potassium Chloride Carbon Dioxide Anion Gap BUN Creatinine Est GFR (CKD-EPI)AfAm Est GFR (CKD-EPI)NonAf POC Glucometer 200 218 Random Glucose Calcium Phosphorus Magnesium Total Bilirubin AST ALT Alkaline Phosphatase Total Protein Albumin Blood Type A POSITIVE Antibody Screen Negative Crossmatch See Detail 11/08/18 11/08/18 11/08/18 01:22 05:40 05:40 WBC 8.7 RBC 1.81 L Hgb 6.0 L* Hct 16.8 L MCV 92.7 MCH 33.3 MCHC 36.0 RDW 14.8 D Plt Count 107 L D MPV 8.4 Sodium 148 H Potassium 3.2 L Chloride 112 H Carbon Dioxide 29 Anion Gap 7 L BUN 29.1 H Creatinine 0.9 Est GFR (CKD-EPI)AfAm 66.63 Est GFR (CKD-EPI)NonAf 57.49 POC Glucometer 225 Random Glucose 212 H Calcium 6.8 L* Phosphorus 2.9 Magnesium 1.9 Total Bilirubin 0.8 AST 14 L ALT 12 L Alkaline Phosphatase 24 L Total Protein 4.0 L Albumin 2.7 L Blood Type Antibody Screen Crossmatch 11/08/18 06:25 WBC RBC Hgb Hct MCV MCH MCHC RDW Plt Count MPV Sodium Potassium Chloride Carbon Dioxide Anion Gap BUN Creatinine Est GFR (CKD-EPI)AfAm Est GFR (CKD-EPI)NonAf POC Glucometer 215 Random Glucose Calcium Phosphorus Magnesium Total Bilirubin AST ALT Alkaline Phosphatase Total Protein Albumin Blood Type Antibody Screen Crossmatch Active Medications Generic Name Dose Route Start Last Admin Trade Name Freq PRN Reason Stop Dose Admin Amino Acids 30 ml 10/30/18 08:00 11/08/18 09:00 Prosource No Carb Liquid Pkt PO 30 ml BID@0800,1730 [facility] Administration Atorvastatin Calcium 40 mg 11/01/18 08:22 11/07/18 22:41 Lipitor - PO 40 mg HS [facility] Administration Calcium Carbonate 500 mg 11/07/18 10:00 11/08/18 11:42 Calcium Carb Oral Suspension - PO 500 mg BID [facility] Administration Chlorhexidine Gluconate 1 applic 10/30/18 22:00 11/07/18 22:42 Hibiclens For Decolonization - TP 1 applic HS [facility] Administration Diltiazem HCl 60 mg 11/04/18 17:48 11/08/18 11:43 Cardizem - PO 60 mg Q6HPO [facility] Administration Furosemide 40 mg 11/07/18 14:00 11/08/18 06:34 Lasix Injection - IVPUSH 40 mg BIDLASIX [facility] Administration Hydrocortisone Sodium Succinate 50 mg 11/07/18 18:00 11/08/18 10:10 Solu-Cortef - IVPUSH 50 mg Q8H-IV [facility] Administration Clindamycin Phosphate 600 mg in 50 mls @ 100 mls/hr 11/02/18 13:15 11/08/18 10:08 Cleocin 600 Mg Premix Ivpb - IVPB 100 mls/hr Q8H-IV [facility] Administration Protocol Pantoprazole Sodium 80 mg/ 100 mls @ 10 mls/hr 11/06/18 09:00 11/08/18 11:11 Sodium Chloride IVPB Not Given Q10H [facility] 8 MG/HR Insulin Aspart 1 vial 10/30/18 06:00 11/08/18 06:34 Novolog Vial Sliding Scale - SQ 4 units Q6HPO [facility] Administration Protocol Levothyroxine Sodium 75 mcg 10/30/18 07:00 11/08/18 06:34 Synthroid - PO 75 mcg DAILY@0700 [facility] Administration Metoclopramide HCl 10 mg 10/30/18 07:00 11/08/18 11:42 Reglan - PO 10 mg TIDAC [facility] Administration Metoprolol Tartrate 5 mg 11/05/18 00:44 11/05/18 00:53 Lopressor Injection - IVPUSH 5 mg Q4H PRN Administration TACHYCARDIA Pancrelipase 1 cap 10/30/18 08:00 11/08/18 11:43 Crelalo Palomares 36,000 Units Capsule PO 1 cap TIDCM [facility] Administration Phytonadione 5 mg 11/08/18 12:00 11/08/18 11:43 Aqua Mephyton Injection - SQ 11/10/18 10:01 5 mg DAILY [facility] Administration Senna 2 tab 10/30/18 22:00 11/07/18 22:41 Senna - PO 2 tab HS [facility] Administration ASSESSMENT/PLAN: Kathleen Saini is an 82 year old female with a PMHx of HTN, T2DM, CAD (NSTEMI) , afib (not on AC due to prior bleed), HFpEF who was admitted to the ICU after developing respiratory failure likely secondary to distributive vs cardiogenic shock. Acute Respiratory Failure Heart Failure with Preserved Ejection Fraction Septic Shock from possible aspiration PNA A fib with RVR GEOFF R sided Ischemic Stroke Hypothyroid HLD NEUROLOGIC - questionable history of facial droop - CT head showing small chronic R occipital cortical infarct, chronic ischemic changes, no acute pathology noted - repeat head CT showing large R sided nonhemorrhagic stroke, ? small thalamic infarct on the R - Dr. Fairbanks consulted, recs appreciated - repeat head CT showing evolving R MCA infract with mass effect and effacement of the sulci and R ventricle, with small midline shift - poor prognosis with little expected meaningful recovery CARDIOLOGY - tachycardia resolved with diltiazem push - cardizem 60mg q6h - Lopressor 5mg q4h prn tachycardia - previous echo showing EF 60-65% - new echo showing EF 60%, mild dilation of R ventricle, reduced R systolic function, moderate to severe mitral regurg - off vasopressin - maintain MAP>65 - troponins 1.03-->1.21-->1.11-->0.71 - cardiology consulted, recs appreciated - Lipitor increased to 40mg in setting of new stroke - wean to hydrocortisone 50mg q12h - CHADS-VASC score of 8, 10.8% stroke risk per year in setting of afib/ irregular rhythm, high risk of further cardioembolic strokes - HAS-BLED Score of 3, high risk of bleeding - spoken to family regarding starting anticoagulation with heparin drip protocol , risks and benefits were described, family aware and agreeable - PTT supratherapeutic, decision to switch to Lovenox sq - Trend PT/INR and PTT - D/C lovenox because H/H low - F/U FOBT RESPIRATORY - on venti-mask at 50% - CXR showing congestive changes - ABG showing hypoxia, no hypercapneia - family stated that if respiratory status decompensates, would want intubation - low threshold for reintubation, risks and benefits explained to family regarding intubation RENAL - GEOFF likely from cardiogenic vs shock vs autonomic shock - no fluids in the setting of volume overloaded status - Continue Lasix 40mg IV PRN GASTROINTESTINAL - Concern for GI bleed since patient had sudden drop in H/H and no obvious external signs of bleed, Hgb today 6.0 - 2 unit RBCs transfused today - recheck counts after transfusion - Protonix BID - Continue to follow H/H, transfuse as needed - Abd pelvis CT showing 11cm hematoma in the L thigh GENITOURINARY - no acute issues INFECTIOUS DISEASE - covered with clindamycin and ceftriaxone day 7 - UA showing 2+ LE, 9 bacteria, unlikely contributor to sepsis - blood cultures negative - sputum cultures showing presumptive MRSA - Dr. Cisse consulted, recs appreciated ENDOCRINE - BGM ACHS - ISS - Levemir 15 units - continue home synthroid HEMATOLOGY - leukocytosis likely from infection - Hgb low, transfusion today - FFP and Vit K given MUSCULOSKELETAL - hematoma in L thigh 11cm likely cause of continued bleed PSYCHIATRY - continue home escitalopram F/E/N - no standing fluids - continue to monitor electrolytes and replete as necessary - Promote feeds initiated 10cc/hr, total 240cc/24 hrs LINES - R IJ inserted 10/30 PROPHYLAXIS - SCDs CODE - DNR, intubation and pressors OK. - in the setting of patient's comorbidities, increased morbidity and mortality is expected, family was made aware of grave prognosis - family meeting to explain the findings of a new CT scan and explanation of prognosis, family will alert providers of wishes of patient DISPO - continue to monitor in ICU Visit type - Emergency Visit Emergency Visit: No - New Patient This patient is new to me today: No - Critical Care Critical Care patient: Yes Total Critical Care Time (in minutes): 36 Critical Care Statement: The care of this patient involved high complexity decision making to prevent further life threatening deterioration of the patient 's condition and/or to evaluate & treat vital organ system(s) failure or risk of failure.
[2018-11-08] MEDS ORDERED: PHYTONADIONE 10 MG/1 ML AMP SQ SCH (12:00)
--- NOTE | 2018-11-08 12:30 | PN ---
Progress Note, Physician History of Present Illness: Pt seen and examined at bedside. She is lethargic. She remains in the ICU. - Current Medication List Current Medications: Active Medications Amino Acids (Prosource No Carb Liquid Pkt) 30 ml PO BID@0800,1730 [facility] Last Admin: 11/08/18 09:00 Dose: 30 ml Atorvastatin Calcium (Lipitor -) 40 mg PO HS [facility] Last Admin: 11/07/18 22:41 Dose: 40 mg Calcium Carbonate (Calcium Carb Oral Suspension -) 500 mg PO BID [facility] Last Admin: 11/08/18 11:42 Dose: 500 mg Chlorhexidine Gluconate (Hibiclens For Decolonization -) 1 applic TP HS [facility] Last Admin: 11/07/18 22:42 Dose: 1 applic Diltiazem HCl (Cardizem -) 60 mg PO Q6HPO [facility] Last Admin: 11/08/18 11:43 Dose: 60 mg Furosemide (Lasix Injection -) 40 mg IVPUSH BIDLASIX [facility] Last Admin: 11/08/18 06:34 Dose: 40 mg Hydrocortisone Sodium Succinate (Solu-Cortef -) 50 mg IVPUSH BID [facility] Clindamycin Phosphate (Cleocin 600 Mg Premix Ivpb -) 600 mg in 50 mls @ 100 mls /hr IVPB Q8H-IV [facility]; Protocol Last Admin: 11/08/18 10:08 Dose: 100 mls/hr Pantoprazole Sodium 80 mg/ (Sodium Chloride) 100 mls @ 10 mls/hr IVPB Q10H [facility] Last Admin: 11/08/18 11:11 Dose: Not Given Insulin Aspart (Novolog Vial Sliding Scale -) 1 vial SQ Q6HPO [facility]; Protocol Last Admin: 11/08/18 12:18 Dose: 4 units Levothyroxine Sodium (Synthroid -) 75 mcg PO DAILY@0700 [facility] Last Admin: 11/08/18 06:34 Dose: 75 mcg Metoclopramide HCl (Reglan -) 10 mg PO TIDAC [facility] Last Admin: 11/08/18 11:42 Dose: 10 mg Metoprolol Tartrate (Lopressor Injection -) 5 mg IVPUSH Q4H PRN PRN Reason: TACHYCARDIA Last Admin: 11/05/18 00:53 Dose: 5 mg Pancrelipase (Creon Dr 36,000 Units Capsule) 1 cap PO TIDCM [facility] Last Admin: 11/08/18 11:43 Dose: 1 cap Phytonadione (Aqua Mephyton Injection -) 5 mg SQ DAILY [facility] Stop: 11/10/18 10:01 Last Admin: 11/08/18 11:43 Dose: 5 mg Senna (Senna -) 2 tab PO HS [facility] Last Admin: 11/07/18 22:41 Dose: 2 tab - Objective Vital Signs: Vital Signs Temperature 97.4 F L 11/08/18 10:00 Pulse Rate 84 11/08/18 10:00 Respiratory Rate 99 H 11/08/18 10:00 Blood Pressure 121/88 11/08/18 10:00 O2 Sat by Pulse Oximetry (%) 100 11/08/18 09:36 Constitutional: Yes: Calm Eyes: Yes: Conjunctiva Clear HENT: Yes: Atraumatic Cardiovascular: Yes: S1, S2 Respiratory: Yes: CTA Bilaterally Gastrointestinal: Yes: Soft Genitourinary: Yes: Ricketts Present Musculoskeletal: Yes: Muscle Weakness Edema: Yes Edema: LUE: 3+, RUE: 3+, LLE: 3+, RLE: 3+ Neurological: Yes: Lethargy Labs: CBC, BMP 11/08/18 05:40 11/08/18 05:40 INR, PTT INR 1.45 (0.83-1.09) H 11/07/18 05:30 Problem List - Problems (1) Altered mental status Code(s): R41.82 - ALTERED MENTAL STATUS, UNSPECIFIED Qualifiers: Altered mental status type: unspecified Qualified Code(s): R41.82 - Altered mental status, unspecified (2) CVA (cerebral vascular accident) Code(s): I63.9 - CEREBRAL INFARCTION, UNSPECIFIED Assessment/Plan Current Medications Generic Name Dose Route Start Last Admin Trade Name Freq PRN Reason Stop Dose Admin Albumin Human 25 gm 11/06/18 14:30 11/07/18 09:03 Albumin Human 25% - IVPB 11/07/18 22:01 25 gm BID [facility] Administration Amino Acids 30 ml 10/30/18 08:00 11/07/18 08:40 Prosource No Carb Liquid Pkt PO 30 ml BID@0800,1730 [facility] Administration Atorvastatin Calcium 40 mg 11/01/18 08:22 11/06/18 21:47 Lipitor - PO 40 mg HS [facility] Administration Calcium Carbonate 500 mg 11/07/18 10:00 11/07/18 09:05 Calcium Carb Oral Suspension - PO 500 mg BID [facility] Administration Chlorhexidine Gluconate 1 applic 10/30/18 22:00 11/06/18 21:59 Hibiclens For Decolonization - TP 1 applic HS [facility] Administration Diltiazem HCl 60 mg 11/04/18 17:48 11/07/18 12:40 Cardizem - PO 60 mg Q6HPO [facility] Administration Furosemide 40 mg 11/07/18 14:00 Lasix Injection - IVPUSH BIDLASIX [facility] Hydrocortisone Sodium Succinate 50 mg 11/07/18 18:00 Solu-Cortef - IVPUSH Q8H-IV [facility] Ceftriaxone Sodium 2 gm/ 100 mls @ 200 mls/hr 11/01/18 11:30 11/07/18 09:03 Dextrose IVPB 200 mls/hr DAILY [facility] Administration Protocol Clindamycin Phosphate 600 mg in 50 mls @ 100 mls/hr 11/02/18 13:15 11/07/18 09:02 Cleocin 600 Mg Premix Ivpb - IVPB 100 mls/hr Q8H-IV [facility] Administration Protocol Pantoprazole Sodium 80 mg/ 100 mls @ 10 mls/hr 11/06/18 09:00 11/07/18 05:34 Sodium Chloride IVPB Not Given Q10H [facility] 8 MG/HR Insulin Aspart 1 vial 10/30/18 06:00 11/07/18 05:35 Novolog Vial Sliding Scale - SQ 2 units Q6HPO [facility] Administration Protocol Levothyroxine Sodium 75 mcg 10/30/18 07:00 11/07/18 06:24 Synthroid - PO 75 mcg DAILY@0700 [facility] Administration Metoclopramide HCl 10 mg 10/30/18 07:00 11/07/18 12:41 Reglan - PO 10 mg TIDAC [facility] Administration Metoprolol Tartrate 5 mg 11/05/18 00:44 11/05/18 00:53 Lopressor Injection - IVPUSH 5 mg Q4H PRN Administration TACHYCARDIA Pancrelipase 1 cap 10/30/18 08:00 11/07/18 12:41 Crelalo Palomares 36,000 Units Capsule PO Not Given TIDCM [facility] Senna 2 tab 10/30/18 22:11/06/18 21:48 Senna - PO 2 tab HS [facility] Administration Impression 1. GEOFF 2. fluid overload 3. resp failure 4. sepsis 5. UTI 6. PNA 7. Atrial Fibrillation/Flutter with RVR 8. CHF 9. CVA 10. DM 11. thigh hematoma Plan - replace potassium - pt started on feeds with free water, should help with hypernatremia - ICU will discuss GOC with family - pt appears volumes overloaded - cont diuretics - replace lytes - discussed with ICU team
--- NOTE | 2018-11-08 14:44 | PN ---
Progress Note (short form) - Note Progress Note: vascular surgery Asked to evaluate patient for left heel wound 88 year old female with multiple comorbidities presented to ED after being found at home lethargic and less responsive. As per family, Monday was the last time she was seen at her baseline. Her daughter came over and she noticed patient was lethargic not talking, and moaning a few times as if she was in pain and she asked the nurse to come evaluate her. Nurse called 911. At baseline , per family, patient is bedbound, however she is alert and oriented. Upon arrival of EMS patient was noted to be hypotensive, tachypenic and hypoxic. She was intubated and started on levophed. She was incidentally found to be septic. Patient seen and examined at the bedside. Patient on Venti-mask 50% and saturating well but with labored breathing. Remains unresponsive to voice and basic commands. Prognosis poor. Family meeting scheduled for 5 to discuss goals of care for the patient. Vital Signs Temp 97.4 F L 11/08/18 10:00 Pulse 75 11/08/18 12:00 Resp 20 11/08/18 12:00 BP 98/50 L 11/08/18 12:00 Pulse Ox 100 11/08/18 09:36 Intake & Output 11/07/18 11/08/18 11/08/18 23:59 11:59 23:59 Intake Total 1220 173 Output Total 1000 Balance 220 173 Weight 196 lb 4.8 oz Intake: IV 120 60 CENTRAL LINE 120 60 Pitressin - 50 Units In 0 Normal Saline - 97.5 ml @ 2 UNITS/HR 4 mls/hr IVPB ASDIR [facility] Rx#: [id number] IVPB 300 113 Packed Cells 800 Output: Urine 1000 Ricketts 1000 Other: Voiding Method Indwelling Catheter Indwelling Catheter Bowel Movement No No Body Mass Index (BMI) 39.2 Weight Measurement Method Built in [facility] CBC, BMP 11/08/18 05:40 11/08/18 05:40 PE: GENERAL: Obtunded, unable to follow commands or respond to questioning LUNGS: coarse breath sounds, Vent-mask on, accessory muscle use noted. HEART: Tachycardic EXTREMITIES: Diffuse +3 pitting edema throughout b/l LE L>R, Left heel with @ [id number] stable eschar, no evidence of bogginess or active d/c, no active sloughing, no significant foul odor, surrounding tissue intact with no evidence of tracking erythema, left great toe with some petechia, + DP signal on doppler. right LE with diffuse edema, no wounds or lesions, with + DP and TP signal on doppler. Problem List - Problems (1) Eschar of heel Assessment/Plan: 88 yo with stable eschar of left heel with no evidence of infection. 1) Santyl to left heel daily 2) Aleven to left heel daily 3) Off load pressure sensitive areas 4) frequent positioning with Q2 positioning. 5) re-consult vascular surgery PRN Code(s): R23.4 - CHANGES IN SKIN TEXTURE
--- NOTE | 2018-11-08 15:09 | PN ---
Progress Note (short form) - Note Progress Note: NEUROLOGY PROGRESS: Events reviewed and discussed with RN. Pt made DNR but NOT DNI. Isolation for multiple resistant pathogens. Requiring transfusions to day for dropping Hgb. Repeat CT of head (11/07/18 reviewed): Large Right MCA-territiry CVA with moderate edema and mild right -> Left shift. Exam: diffusely edematous and ecchymotic. Left heal decubitae. Neuro: Lethargic but arousable. Opens eyes to name and command +/- squeezes right hand on command. Left conjugate gaze deviation. No blink to threat. Left facial. No gag Left Flaccid hemiplegia IMP: Acute right CVA. May have decreased LOC during peak period of brain edema which may improve in a few days and does not require specific treatment. Plan: Continue antibiotics and supportive care Prognosis guarded. Thank kadeem very much, Thomas Fairbanks MD
[2018-11-08] MEDS ORDERED: COLLAGENASE CLOSTRIDIUM HIST. 30 GRAMS TUBE TP SCH (15:15)
--- NOTE | 2018-11-08 18:02 | PN ---
Progress Note (short form) - Note Progress Note: Family meeting held at [facility] with numerous family members including , Trey, daughters Ros Dwyer and Neena Veliz. Current medical condition discussed with family and updated about grave prognosis. Palliative care nurse Britt in attendance and discussed measures for comfort for the patient. Family discussed and agreed to make Kathleen Parveen DNR, DNI, and comfort measure only. Paperwork located in patient chart. All questions answered. Live on will be called to determine whether the patient is a candidate for organ donation. Further labwork cancelled, all medications apart from Lasix, senna, and hydrocortisone discontinued. Lasix and senna for comfort, hydrocortisone is gradually tapered and should not be suddenly discontinued. Continue slow feeds and water flushes. Continue oxygen therapy. Morphine drip to be started for comfort. Nurse practitioner Sunil Ribera covering for Dr. Avila after 5 PM has been notified.
[2018-11-08] MEDS ORDERED: MORPHINE SULFATE/0.9% NACL/PF 100 MG/100 ML BAG IVPB SCH (18:15)
--- NOTE | 2018-11-08 20:46 | PN ---
Progress Note, Physician Chief Complaint: poorly responsive,family aware of critical condition,accepting,dnr and dni - Current Medication List Current Medications: Active Medications Furosemide (Lasix Injection -) 40 mg IVPUSH BIDLASIX [facility] Last Admin: 11/08/18 14:42 Dose: 40 mg Hydrocortisone Sodium Succinate (Solu-Cortef -) 50 mg IVPUSH BID [facility] Morphine Sulfate (Morphine 100mg/100ml-0.9% Nacl) 100 mg in 100 mls @ 0.5 mls/ hr IVPB TITR [facility]; Protocol Last Admin: 11/08/18 18:35 Dose: 0.5 mg/hr, 0.5 mls/hr Senna (Senna -) 2 tab PO HS [facility] Last Admin: 11/07/18 22:41 Dose: 2 tab - Objective Vital Signs: Vital Signs Temperature 97.5 F L 11/08/18 16:00 Pulse Rate 77 11/08/18 17:46 Respiratory Rate 22 H 11/08/18 17:46 Blood Pressure 97/51 L 11/08/18 17:46 O2 Sat by Pulse Oximetry (%) 100 11/08/18 09:36 Constitutional: Yes: No Distress HENT: Yes: Normocephalic Neck: Yes: Trachea Midline Cardiovascular: Yes: Tachycardia, Murmur Respiratory: Yes: Rales, Rhonchi, Tachypnea Gastrointestinal: Yes: Abdomen, Obese ...Rectal Exam: Yes: Deferred Musculoskeletal: Yes: Muscle Weakness Edema: LUE: 3+, RUE: 3+, LLE: 4+, RLE: 4+ Neurological: Yes: Unresponsive Labs: CBC, BMP 11/08/18 05:40 11/08/18 05:40 INR, PTT INR 1.45 (0.83-1.09) H 11/07/18 05:30 Problem List - Problems (1) Diabetes mellitus with nonketotic hyperosmolarity Code(s): E11.00 - TYPE 2 DIAB W HYPROSM W/O NONKET HYPRGLY-HYPROS COMA ([facility]) (2) Altered mental status Code(s): R41.82 - ALTERED MENTAL STATUS, UNSPECIFIED Qualifiers: Altered mental status type: unspecified Qualified Code(s): R41.82 - Altered mental status, unspecified (3) CVA (cerebral vascular accident) Code(s): I63.9 - CEREBRAL INFARCTION, UNSPECIFIED (4) Elevated troponin Code(s): R74.8 - ABNORMAL LEVELS OF OTHER SERUM ENZYMES (5) Respiratory failure Code(s): J96.90 - RESPIRATORY FAILURE, UNSP, UNSP W HYPOXIA OR HYPERCAPNIA Qualifiers: Chronicity: acute Respiratory failure complication: hypoxia Qualified Code(s): J96.01 - Acute respiratory failure with hypoxia (6) SVT (supraventricular tachycardia) Code(s): I47.1 - SUPRAVENTRICULAR TACHYCARDIA (7) Type 2 diabetes mellitus with hyperosmolarity without nonketotic hyperglycemic-hyperosmolar coma ([facility]) Code(s): E11.00 - TYPE 2 DIAB W HYPROSM W/O NONKET HYPRGLY-HYPROS COM[facility] Assessment/Plan Current Active Problems Altered mental status (Acute) CVA (cerebral vascular accident) (Acute) Diabetes mellitus with nonketotic hyperosmolarity (Acute) Ecchymosis of forearm (Acute) Elevated troponin (Acute) Eschar of heel (Acute) Hematoma (Acute) NSVT (nonsustained ventricular tachycardia) (Acute) Respiratory failure (Acute) Respiratory failure (Acute) SVT (supraventricular tachycardia) (Acute) Abnormal Lab Results 11/06/18 11/08/18 11/08/18 10:00 05:40 05:40 RBC 1.81 L Hgb 6.0 L* Hct 16.8 L Plt Count 107 L D Sodium 148 H Potassium 3.2 L Chloride 112 H Anion Gap 7 L BUN 29.1 H Random Glucose 212 H Calcium 6.8 L* AST 14 L ALT 12 L Alkaline Phosphatase 24 L Total Protein 4.0 L Albumin 2.7 L Crossmatch See Detail plan: DNR/DNI no further testing
[2018-11-08] MEDS ORDERED: HYDROCORTISONE SOD SUCCINATE 100 MG/2 ML VIAL IVPUSH SCH (22:00)
[2018-11-08] MEDS: SENNOSIDES 8.6MG TABLET (FP) PO SCH (22:36)
[2018-11-09] MEDS: FUROSEMIDE 40 MG/4 ML INJECTABLE VIAL IVPUSH SCH (06:25)
[2018-11-09] MEDS ORDERED: MORPHINE SULFATE/0.9% NACL/PF 100 MG/100 ML BAG IVPB SCH ×2 (07:44→11:25)
--- NOTE | 2018-11-09 08:55 | PN ---
Progress Note, Physician Chief Complaint: PATIENT NOW COMFORT CARE FAMILY BEDSIDE NO BLOOD DRAWS OR HEROIC MEASURES DNR/DNI IN ICU - Current Medication List Current Medications: Active Medications Morphine Sulfate (Morphine 100mg/100ml-0.9% Nacl) 100 mg in 100 mls @ 0.5 mls/ hr IVPB TITR [facility]; Protocol - Objective Vital Signs: Vital Signs Temperature 97.2 F L 11/09/18 00:00 Pulse Rate 95 H 11/09/18 04:00 Respiratory Rate 18 11/09/18 04:00 Blood Pressure 106/66 11/09/18 04:00 O2 Sat by Pulse Oximetry (%) 100 11/08/18 21:00 Constitutional: Yes: Other Cardiovascular: Yes: Bradycardia Respiratory: Yes: On Venti-Mask Gastrointestinal: Yes: Soft Genitourinary: Yes: Incontinence Musculoskeletal: Yes: Muscle Weakness Edema: Yes Integumentary: Yes: Bruising, Erythema, Pressure Ulcer, Skin Tear Wound/Incision: Yes: Dressing Dry and Intact, Reddened, Excoriated, Unapproximated Neurological: Yes: Unresponsive Labs: CBC, BMP 11/08/18 05:40 11/08/18 05:40 INR, PTT INR 1.45 (0.83-1.09) H 11/07/18 05:30 Problem List - Problems (1) Respiratory failure Code(s): J96.90 - RESPIRATORY FAILURE, UNSP, UNSP W HYPOXIA OR HYPERCAPNIA (2) Altered mental status Code(s): R41.82 - ALTERED MENTAL STATUS, UNSPECIFIED Qualifiers: Altered mental status type: unspecified Qualified Code(s): R41.82 - Altered mental status, unspecified (3) Elevated troponin Code(s): R74.8 - ABNORMAL LEVELS OF OTHER SERUM ENZYMES (4) NSVT (nonsustained ventricular tachycardia) Code(s): I47.2 - VENTRICULAR TACHYCARDIA (5) Respiratory failure Code(s): J96.90 - RESPIRATORY FAILURE, UNSP, UNSP W HYPOXIA OR HYPERCAPNIA Qualifiers: Chronicity: acute Respiratory failure complication: hypoxia Qualified Code(s): J96.01 - Acute respiratory failure with hypoxia (6) SVT (supraventricular tachycardia) Code(s): I47.1 - SUPRAVENTRICULAR TACHYCARDIA (7) Acute diastolic heart failure Code(s): I50.31 - ACUTE DIASTOLIC (CONGESTIVE) HEART FAILURE (8) Acute metabolic encephalopathy Code(s): G93.41 - METABOLIC ENCEPHALOPATHY (9) Afib Code(s): I48.91 - UNSPECIFIED ATRIAL FIBRILLATION Qualifiers: Atrial fibrillation type: paroxysmal Qualified Code(s): I48.0 - Paroxysmal atrial fibrillation (10) COPD (chronic obstructive pulmonary disease) Code(s): J44.9 - CHRONIC OBSTRUCTIVE PULMONARY DISEASE, UNSPECIFIED (11) Morbid obesity with BMI of 40.0-44.9, adult Code(s): E66.01 - MORBID (SEVERE) OBESITY DUE TO EXCESS CALORIES; Z68.41 - BODY MASS INDEX (BMI) 40.0-44.9, ADULT (12) Type 2 diabetes mellitus with other circulatory complications Code(s): E11.59 - TYPE 2 DIABETES MELLITUS WITH OTH CIRCULATORY COMPLICATIONS (13) Type 2 diabetes mellitus with other diabetic neurological complication Code(s): E11.49 - TYPE 2 DIABETES W OTH DIABETIC NEUROLOGICAL COMPLICATION (14) Hematoma Code(s): T14.8XXA - OTHER INJURY OF UNSPECIFIED BODY REGION, INITIAL ENCOUNTER (15) Ecchymosis of forearm Code(s): R58 - HEMORRHAGE, NOT ELSEWHERE CLASSIFIED Assessment/Plan PATIENT IN ICU BED 4 FAMILY BEDSIDE I DISCUSSED THE PROTOCOL OF COMFORT MEASURES THE FAMILY AHS AGREED TO DNR/DNI AND THEY DO NOT WANT LAB DRAWS OR ANY HEROIC MEASURES TO REVIVE HER. MORPHINE IV SCOPALAMINE PATCH PEPCID IV 02 SUPPORT PALLIAITVE CARE F/U APPRECIATED CLERSHIRLEY CALLED FOR CONSOLING FAMILY I HAVE MET AND ANSWERED ALL THE FAMILY'S QUESTIONS
[2018-11-09] MEDS ORDERED: SCOPOLAMINE HYDROBROMIDE 1 PATCH PATCH.TD72 TD SCH (09:00)
[2018-11-09 10:16] VITALS: TEMP 97.6
[2018-11-09] MEDS ORDERED: PT OWN MED DRAWER 7, Y5N ONE (10:34)
--- NOTE | 2018-11-09 11:09 | PN ---
Physical Exam: SUBJECTIVE: Patient seen and examined at bedside. Patient on Venti-mask 50% and saturating well but with labored breathing. Remains unresponsive to voice and basic commands. Prognosis poor. Family meeting held yesterday and patient was made comfort care. Will D/c feeds today, switch patient to NC, and titrate up her morphine until she is comfortable. OBJECTIVE: Vital Signs Period Temp Pulse Resp BP Sys/Gu Pulse Ox Last 24 Hr 97 F-97.6 F 62-95 14-22 95-127/46-71 100 GENERAL: Obtunded, unable to follow commands or respond to questioning HEENT: PERRL, unable to assess ocular movements, wet mucous membranes NECK: No JVD LUNGS: coarse breath sounds, no wheezes, no crackles. Vent-mask on, no accessory muscle use noted. HEART: Tachycardic with irregularly irregular rhythm, S1, S2 without murmur ABDOMEN: Soft, NT/ND, hypoactive bowel sounds, no guarding EXTREMITIES: 1+ DP pulses, warm, well-perfused, 2+ edema to the knee b/l, 2+ edema hands bilaterally NEUROLOGICAL: Limited exam due to condition, PEERL, L sided flaccid paralysis, withdrawal movements R>L to painful stimuli SKIN: Warm, dry, no rashes or lesions noted. Diffuse ecchymosis on bilateral arms. Chronic L heel ulcer. Laboratory Results - last 24 hr 11/06/18 11/08/18 11/08/18 10:00 12:03 16:46 POC Glucometer 221 224 Blood Type A POSITIVE Antibody Screen Negative Crossmatch See Detail Active Medications Generic Name Dose Route Start Last Admin Trade Name Freq PRN Reason Stop Dose Admin Morphine Sulfate 100 mg in 100 mls @ 0.5 mls/hr 11/09/18 07:44 Morphine 100mg/100ml-0.9% Nacl IVPB TITR [facility] Protocol 0.5 MG/HR Scopolamine HBr 1 patch 11/09/18 09:00 11/09/18 10:39 Transderm-Scop - TD 1 patch Q72H [facility] Administration ASSESSMENT/PLAN: Kathleen Saini is an 82 year old female with a PMHx of HTN, T2DM, CAD (NSTEMI) , afib (not on AC due to prior bleed), HFpEF who was admitted to the ICU after developing respiratory failure likely secondary to distributive vs cardiogenic shock. Acute Respiratory Failure Heart Failure with Preserved Ejection Fraction Septic Shock from possible aspiration PNA A fib with RVR GEOFF R sided Ischemic Stroke Hypothyroid HLD NEUROLOGIC - Dr. Fairbanks consulted, recs appreciated - repeat head CT showing evolving R MCA infract with mass effect and effacement of the sulci and R ventricle, with small midline shift - poor prognosis with little expected meaningful recovery - Comfort care CARDIOLOGY - continue to wean to hydrocortisone - all other meds except lasix, hydrocortisone and senna are d/c'd RESPIRATORY - on venti-mask at 50% - will switch to regular NC - continue lasix to reduce volume overload RENAL - no fluids in the setting of volume overloaded status - Continue Lasix 40mg IV PRN GASTROINTESTINAL -comfort measures, d/c'd feeds today GENITOURINARY - no acute issues F/E/N - no standing fluids - no labs - no feeds LINES - R IJ inserted 10/30 PROPHYLAXIS - SCDs CODE - DNR, DNI DISPO - Patient stable for transfer to [facility] now that she is comfort care. Live on will be called to determine whether the patient is a candidate for organ donation. Morphine drip for comfort. Visit type - Emergency Visit Emergency Visit: Yes ED Registration Date: 10/29/18 Care time: The patient presented to the Emergency Department on the above date and was hospitalized for further evaluation of their emergent condition. - New Patient This patient is new to me today: No - Critical Care Critical Care patient: Yes Total Critical Care Time (in minutes): 40 Critical Care Statement: The care of this patient involved high complexity decision making to prevent further life threatening deterioration of the patient 's condition and/or to evaluate & treat vital organ system(s) failure or risk of failure. ATTENDING PHYSICIAN STATEMENT I saw and evaluated the patient. I reviewed the resident's note and discussed the case with the resident. I agree with the resident's findings and plan as documented. SUBJECTIVE: OBJECTIVE: ASSESSMENT AND PLAN:
--- NOTE | 2018-11-09 11:18 | PN ---
Teaching Attending Note Name of Resident: Lorrie Vyas ATTENDING PHYSICIAN STATEMENT I saw and evaluated the patient. I reviewed the resident's note and discussed the case with the resident. I agree with the resident's findings and plan as documented. SUBJECTIVE: Pt seen and examined in the ICU. Events noted, pt now DNR/DNI with comfort measures, started on morphine gtt. OBJECTIVE: Vital Signs Period Temp Pulse Resp BP Sys/Gu Pulse Ox Last 24 Hr 97 F-97.6 F 62-95 14-22 95-127/46-71 100 Intake & Output 11/06/18 11/07/18 11/08/18 11/09/18 23:59 23:59 23:59 23:59 Intake Total 1287 1344 1655 3.5 Output Total 650 1300 900 500 Balance 637 44 755 -496.5 Weight 88.451 kg 88.133 kg 89.04 kg 88.632 kg Gen: mildly tachypneic, lethargic Heart: RRR Lung: bilateral rhonchi Abd: soft, nontender Ext: + edema CBC, BMP 11/08/18 05:40 11/08/18 05:40 Active Medications Morphine Sulfate (Morphine 100mg/100ml-0.9% Nacl) 100 mg in 100 mls @ 0.5 mls/ hr IVPB TITR [facility]; Protocol Last Admin: 11/09/18 08:30 Dose: Not Given Scopolamine HBr (Transderm-Scop -) 1 patch TD Q72H [facility] Last Admin: 11/09/18 10:39 Dose: 1 patch ASSESSMENT AND PLAN: Acute Respiratory Failure Pneumonia likely Aspiration UTI Septic Shock Atrial Fibrillation/Flutter with RVR LV Diastolic Dysfunction Acute CVA Acute Kidney Injury DM Hypothyroidism Hyperlipidemia - continue supportive/comfort measures - titrate morphine to RR<20 - can monitor on floor
--- NOTE | 2018-11-09 14:24 | PN ---
Progress Note, Physician History of Present Illness: Pt seen in ICU. Family at bedside. - Current Medication List Current Medications: Active Medications Morphine Sulfate (Morphine 100mg/100ml-0.9% Nacl) 100 mg in 100 mls @ 0.5 mls/ hr IVPB TITR [facility]; Protocol Scopolamine HBr (Transderm-Scop -) 1 patch TD Q72H [facility]I - Objective Vital Signs: Vital Signs Temperature 97.6 F 11/09/18 09:04 Pulse Rate 85 11/09/18 09:04 Respiratory Rate 14 11/09/18 09:04 Blood Pressure 95/65 11/09/18 09:04 O2 Sat by Pulse Oximetry (%) 100 11/08/18 21:00 Constitutional: Yes: Calm Eyes: Yes: Conjunctiva Clear Cardiovascular: Yes: S1, S2 Respiratory: Yes: On Venti-Mask Gastrointestinal: Yes: Soft Musculoskeletal: Yes: Muscle Weakness Edema: Yes Labs: CBC, BMP 11/08/18 05:40 11/08/18 05:40 INR, PTT INR 1.45 (0.83-1.09) H 11/07/18 05:30 Problem List - Problems (1) Altered mental status Code(s): R41.82 - ALTERED MENTAL STATUS, UNSPECIFIED Qualifiers: Altered mental status type: unspecified Qualified Code(s): R41.82 - Altered mental status, unspecified (2) CVA (cerebral vascular accident) Code(s): I63.9 - CEREBRAL INFARCTION, UNSPECIFIED Assessment/Plan Current Medications Generic Name Dose Route Start Last Admin Trade Name Kwesiq PRN Reason Stop Dose Admin Morphine Sulfate 100 mg in 100 mls @ 0.5 mls/hr 11/09/18 11:25 Morphine 100mg/100ml-0.9% Nacl IVPB TITR [facility] Protocol 0.5 MG/HR Scopolamine HBr 1 patch 11/12/18 09:00 Transderm-Scop - TD Q72H [facility] Impression 1. GEOFF 2. fluid overload 3. resp failure 4. sepsis 5. UTI 6. PNA 7. Atrial Fibrillation/Flutter with RVR 8. CHF 9. CVA 10. DM 11. thigh hematoma Plan - pt now on comfort care - cont care per primary team - will sign off
[2018-11-09 16:53] VITALS: BP 66/40
[2018-11-09 23:43] VITALS: PULSE 63
--- NOTE | 2018-11-10 03:55 | PN ---
Physical Exam: SUBJECTIVE: I received a phone call at 3:25am on 11/10/2018 notifying me that the patient was in asystole. I came to examine the patient and noted that on exam she did not have a palpable carotid pulse, a pupillary reflex, or corneal reflex. The patient was unresponsive to tactile stimulus. There was no spontaneous respiration or lung sounds. There were no heart sounds on ascultation. The time of was pronounced at 3:33am. The cause of was cardiac arrest 2/2 respiratory failure due to septic shock and aspiration PNA as a result of an acute CVA. The patient's granddaughters were present at the bedside at the time of and her daughters (surrogates/ next of kin) in addition to other family members were notified shortly thereafter. Dr Lam's office was notified at 3:40am. Visit type - Emergency Visit Emergency Visit: Yes ED Registration Date: 10/29/18 Care time: The patient presented to the Emergency Department on the above date and was hospitalized for further evaluation of their emergent condition. - New Patient This patient is new to me today: No - Critical Care Critical Care patient: Yes Total Critical Care Time (in minutes): 40 Critical Care Statement: The care of this patient involved high complexity decision making to prevent further life threatening deterioration of the patient 's condition and/or to evaluate & treat vital organ system(s) failure or risk of failure. ATTENDING PHYSICIAN STATEMENT I saw and evaluated the patient. I reviewed the resident's note and discussed the case with the resident. I agree with the resident's findings and plan as documented. SUBJECTIVE: OBJECTIVE: ASSESSMENT AND PLAN:
--- NOTE | 2018-11-10 09:48 | PN ---
Progress Note, Physician Chief Complaint: Pt is unresponsive; hypotensive; edematous History of Present Illness: The patient is an 88-year-old female, with a past medical history of HTN, s/p NSTEMI, DM, gastroparesis, CAD, afib (on eliquis), morbid obesity, PSVT, diastolic CHF (on Lasix), hypothyroidism, left heel ulcerated wound, presents to the ED with AMS today. Daughter states that she noted the patient to be altered at 9:30AM and was not eating or drinking. She also noted a possible RT- sided facial droop at 10AM. Daughter states the patient has experienced similar symptoms in the past. EMS was called around 4PM today. Upon arrival, the patient was noted to be hypotensive in the 60s and was intubated (7.5cm tube, 24cm at the lip). She also received 60mg of mady and 500mg of ketamine while in the field. HPI is limited due to patients clinical condition. Allergies: Vancomycin - Current Medication List Current Medications: Active Medications Morphine Sulfate (Morphine 100mg/100ml-0.9% Nacl) 100 mg in 100 mls @ 0.5 mls/ hr IVPB TITR LEXI; Protocol Scopolamine HBr (Transderm-Scop -) 1 patch TD Q72H LEXI - Objective Vital Signs: Vital Signs Temperature 97.6 F 11/09/18 09:04 Pulse Rate 63 11/09/18 22:00 Respiratory Rate 5 L 11/09/18 22:00 Blood Pressure 66/40 L 11/09/18 16:52 O2 Sat by Pulse Oximetry (%) 75 L 11/09/18 21:00 Constitutional: Yes: Obese Eyes: Yes: WNL Cardiovascular: Yes: S1, S2 (split) Respiratory: Yes: Diminished Gastrointestinal: Yes: Soft Genitourinary: Yes: Oliguria Musculoskeletal: Yes: Muscle Weakness Extremities: Yes: Cool Edema: Yes Peripheral Pulses WNL: No Peripheral Pulses: Left Doralis Pedis: 1+, Right Dorsalis Pedis: 1+ Integumentary: Yes: Other (edema of all extremities) Neurological: Yes: Unresponsive Psychiatric: Yes: Other Labs: CBC, BMP 11/08/18 05:40 11/08/18 05:40 INR, PTT INR 1.45 (0.83-1.09) H 11/07/18 05:30 Abnormal Lab Results 11/06/18 10:00 Crossmatch See Detail - ....Imaging Chest X-ray: Image Reviewed Other: Image Reviewed Problem List - Problems (1) NSVT (nonsustained ventricular tachycardia) Code(s): I47.2 - VENTRICULAR TACHYCARDIA (2) SVT (supraventricular tachycardia) Code(s): I47.1 - SUPRAVENTRICULAR TACHYCARDIA (3) Elevated troponin Code(s): R74.8 - ABNORMAL LEVELS OF OTHER SERUM ENZYMES (4) Acute diastolic heart failure Code(s): I50.31 - ACUTE DIASTOLIC (CONGESTIVE) HEART FAILURE (5) Acute metabolic encephalopathy Code(s): G93.41 - METABOLIC ENCEPHALOPATHY (6) Acute renal failure Code(s): N17.9 - ACUTE KIDNEY FAILURE, UNSPECIFIED Qualifiers: Acute renal failure type: unspecified Qualified Code(s): N17.9 - Acute kidney failure, unspecified (7) Afib Assessment/Plan: off pressors On diltiazem Replee K, and keep 4.0-4.5. F/u Mg, and keep 2.0-2.4. Keep PO4 2.5-4.9. Code(s): I48.91 - UNSPECIFIED ATRIAL FIBRILLATION Qualifiers: Atrial fibrillation type: paroxysmal Qualified Code(s): I48.0 - Paroxysmal atrial fibrillation (8) Multiorgan failure Assessment/Plan: DNR/DNI Now on comfort care. Code(s): UGF9349 - Assessment/Plan CCU time spent : 35 minutes.
[2018-11-12] MEDS ORDERED: SCOPOLAMINE HYDROBROMIDE 1 PATCH PATCH.TD72 TD SCH (09:00)
--- NOTE | 2018-11-12 15:44 | DS ---
Physical Examination Vital Signs: Vital Signs Temperature 97.6 F 11/09/18 09:04 Pulse Rate 63 11/09/18 22:00 Respiratory Rate 5 L 11/09/18 22:00 Blood Pressure 66/40 L 11/09/18 16:52 O2 Sat by Pulse Oximetry (%) 75 L 11/09/18 21:00 Labs: CBC, BMP 11/08/18 05:40 11/08/18 05:40 Discharge Summary Reason For Visit: RESPIRATORY FAILURE,ALTERED MENTAL STATUS Hospital Course: 88 year old female with multiple comorbidities presents after being found at home lethargic and less responsive. As per family, Monday was the last time she was seen at her baseline. Today her daughter came over and she noticed patient was lethargic not talking, and moaning a few times as if she was in pain and she asked the nurse to come evaluate her. Nurse called 911. At baseline per family patient is bedbound, however she is alert and oriented. Upon arrival of EMS patient was noted to be hypotensive, tachypenic and hypoxic. She was intubated and started on levophed. Family states she hasn't been eating and when they tried today she was coughing. No further history can be obtained at this time. patient in ICU large right MCA infarct patient made DNR pateint had cardiac acrerst on 11/10/18 Condition: Critical - Instructions Disposition: - Home Medications Comprehensive Discharge Medication List: Ambulatory Orders Atorvastatin Ca [Lipitor] 20 mg PO HS tablet 02/27/18 Metoprolol Tartrate [Lopressor -] 50 mg PO BID tablet 04/03/18 Sennosides [Senna -] 2 tab PO HS tablet 04/03/18 Insulin (Levemir) [Levemir Vial] 15 units SQ AM units 04/14/18 Escitalopram Oxalate [Lexapro -] 5 mg PO DAILY tablet 04/21/18 Metoclopramide HCl [Reglan -] 10 mg PO TIDAC tablet 04/21/18 Potassium Chloride 40 meq PO DAILY #60 tablet.er 04/21/18 Insulin Aspart [Novolog] 100 unit SQ Q6H PRN 05/03/18 Omeprazole 40 mg PO DAILY 05/03/18 Amino Acids/Protein Hydrolys [Prosource No Carb Liquid Pkt] 30 ml PO BID@0800, 1730 #60 packet 08/08/18 Levothyroxine [Synthroid -] 75 mcg PO DAILY@0700 tablet 08/08/18 Lipase/Protease/Amylase [Dyllan Palomares 36,000 Units Capsule] 1 cap PO TIDCM #90 capsule. 08/08/18 Rifaximin [Xifaxan -] 550 mg PO TID #90 tablet 08/08/18
== END 2018-11-10 03:33 | disposition expired | DRG 871 ==
LOC: JER 17:01 → JICU 20:50
PROVIDERS: ADMIT Internal Medicine; ATTEND Family Medicine
PROC: 5A1945Z Respiratory Ventilation, 24-96 Consecutive Hours (ICD-10-PCS; principal; 2018-10-29)
PROC: 0BH17EZ Insertion of Endotracheal Airway into Trachea, Via Natural or Artificial Opening (ICD-10-PCS; 2018-10-29)
PROC: 05HM33Z Insertion of Infusion Device into Right Internal Jugular Vein, Percutaneous Approach (ICD-10-PCS; 2018-10-29)
PROC: B513ZZA Fluoroscopy of Right Jugular Veins, Guidance (ICD-10-PCS; 2018-10-29)
PROC: 30233N1 Transfusion of Nonautologous Red Blood Cells into Peripheral Vein, Percutaneous Approach (ICD-10-PCS; 2018-11-06)
PROC: 30233L1 Transfusion of Nonautologous Fresh Plasma into Peripheral Vein, Percutaneous Approach (ICD-10-PCS; 2018-11-08)
PROC: 30233K1 Transfusion of Nonautologous Frozen Plasma into Peripheral Vein, Percutaneous Approach (ICD-10-PCS; 2018-11-08)
DX: A41.9 Sepsis, unspecified organism (principal); E11.00 Type 2 diabetes mellitus with hyperosmolarity without nonketotic hyperglycemic-hyperosmolar coma (NKHHC); J96.01 Acute respiratory failure with hypoxia; R65.21 Severe sepsis with septic shock; G92 Toxic encephalopathy; J69.0 Pneumonitis due to inhalation of food and vomit; I50.33 Acute on chronic diastolic (congestive) heart failure; J15.212 Pneumonia due to Methicillin resistant Staphylococcus aureus; I63.511 Cerebral infarction due to unspecified occlusion or stenosis of right middle cerebral artery; N39.0 Urinary tract infection, site not specified; N17.9 Acute kidney failure, unspecified; L97.429 Non-pressure chronic ulcer of left heel and midfoot with unspecified severity; Z68.41 Body mass index [BMI] 40.0-44.9, adult; E87.3 Alkalosis; E87.0 Hyperosmolality and hypernatremia; I48.92 Unspecified atrial flutter; I48.1 Persistent atrial fibrillation; I47.1 Supraventricular tachycardia; I11.0 Hypertensive heart disease with heart failure; I48.0 Paroxysmal atrial fibrillation; E03.9 Hypothyroidism, unspecified; E78.5 Hyperlipidemia, unspecified; Z79.01 Long term (current) use of anticoagulants; I25.10 Atherosclerotic heart disease of native coronary artery without angina pectoris; I25.2 Old myocardial infarction; I95.9 Hypotension, unspecified; J44.9 Chronic obstructive pulmonary disease, unspecified; Z87.891 Personal history of nicotine dependence; Z79.4 Long term (current) use of insulin; K76.0 Fatty (change of) liver, not elsewhere classified; D53.9 Nutritional anemia, unspecified; Z74.01 Bed confinement status; E11.65 Type 2 diabetes mellitus with hyperglycemia; Z95.5 Presence of coronary angioplasty implant and graft; E66.01 Morbid (severe) obesity due to excess calories; E11.21 Type 2 diabetes mellitus with diabetic nephropathy; I34.0 Nonrheumatic mitral (valve) insufficiency; B96.29 Other Escherichia coli [E. coli] as the cause of diseases classified elsewhere; E83.42 Hypomagnesemia; E87.6 Hypokalemia; Z66 Do not resuscitate
CPT/HCPCS: 36415; 36430; 36511; 36600; 70450-TC; 71045-TC-FY; 74176-TC; 80048; 80053; 81003; 82040; 82375; 82436; 82565; 82607; 82746; 82803; 82962; 83050; 83605; 83735; 83880; 84100; 84133; 84300; 84484; 85025; 85027; 85610; 85730; 86850; 86900; 86901; 86922; 87040; 87070; 87186; 87205; 87899; 93005; 93010; 93306-TC; 93308; 93970-TC; 94002; 99285-25; J0131; J1250; J1644; P9017; P9038; P9047; P9058